=== PATIENT | male | born 1940 | race Caucasian/White ===

== ENCOUNTER → 2018-03-10 13:02 | Outpatient (CLI) | payer MEDICARE, SELFPAY ==
--- NOTE | 2018-03-10 13:45 | MRI_ITS ---
STUDY: MRI BRAIN WITHOUT CONTRAST REASON FOR EXAM: Male, 78 years old. CVA TECHNIQUE: Standardized multiplanar fat and water weighted pulse sequences were obtained. COMPARISON: February 04, 2006 FINDINGS: Moderate atrophy and periventricular white matter ischemic changes without mass effect or restricted diffusion. Tiny old lacunar infarct in left basal ganglia.. Normal thalami. There is no extra-axial fluid accumulation. Normal flow voids within the major intracranial circulation suggesting patency by spin echo criteria. Normal sella turcica, pituitary gland, infundibular stalk, optic chiasm and hypothalamus. Normal tectal plate and pineal gland. Normal midbrain, samreen and medulla. Normal cerebellum. Normal basal cisterns. Normal bilateral temporal bones. Normal bilateral internal auditory canals. No demonstrated orbital abnormality, within the constraints of a routine brain study. Minor mucosal thickening of the right ethmoid air cells.. Normal calvarium and skull base. Normal visualized soft tissue structures. Normal visualized upper cervical spine. MRI/Brain without Contrast IMPRESSION: Moderate atrophy and periventricular white matter ischemic change. No evidence for acute infarct Tiny old left lacunar infarct Electronically Signed: Kory Evans MD at 16:24 EDT , Service support ,
== END ==
PROVIDERS: Family Provider Family Medicine; PCP Family Medicine; Visit Provider Family Medicine
DX: Z86.73 Personal history of transient ischemic attack (TIA), and cerebral infarction without residual deficits (principal)
CPT/HCPCS: 70551

== ENCOUNTER → 2018-07-19 08:37 | Outpatient (CLI) | payer MEDICARE, SELFPAY ==
[2018-07-19 10:39] LABS: Absolute Lymphocyte Count 1.42 X10^3/ul (0.83-4.51); Absolute Neutrophil Count 4.7 X10^3/uL (2.0-7.7); Basophil# 0.04 X10^3/uL; Basophil% 0.6 % (0-1); Eosinophil# 0.24 X10^3/uL; Eosinophils% 3.4 % (0-5); Hematocrit 42.8 % (40-54); Hemoglobin 13.9 g/dl (13.0-16.5); Lymphocyte # 1.42 X10^3/ul (4.0); Lymphocyte % 20.3 % (19-41); Mean Corp Hgb Conc 32.5 g/gl (32-36); Mean Corpuscular Hgb 29.1 pg (27.0-32.0); Mean Corpuscular Volume 89.7 fL (80-94); Mean Platelet Vol. 11.9 fl (6.2-12.0); Monocyte# 0.54 X10^3/uL; Monocyte% 7.7 % (0-10); Neutrophil # 4.74 X10^3/uL (2.7-7.7); Neutrophil % 67.7 % (47-70); Platelet Count 162 K/mm3 (150-450); RBC Distribution Width CV 12.8 % (11.6-14.6); RBC Distribution Width SD 41.9 fl (35.1-43.9); Red Blood Count 4.77 M/mm3 (4.6-6.2)
[2018-07-19 10:40] LABS: POSITIVE COUNT NO; POSITIVE DIFFERENTIAL NO; POSITIVE MORPHOLOGY NO
[2018-07-19 10:54] LABS: Hemoglobin A1c 6.3 % (4.2-6.3)
[2018-07-19 10:58] LABS: Vitamin B12 227 pg/mL (211-911)
[2018-07-19 11:03] LABS: AST(SGOT) 27 U/L (15-37); Alanine Aminotransfer ALT/SGPT 42 U/L (16-61); Albumin, Serum 3.6 g/dL (3.2-5.0); Alkaline Phosphatase 88 U/L (45-117); Anion Gap 9 (5-15); BUN 23 mg/dL (7-18); BUN/Creat Ratio 15.4 RATIO (10-20); Chloride 104 mmol/L (98-107); Cholesterol 208 mg/dL (200); Creatinine, Serum 1.49 mg/dL (0.70-1.30); EST Glomerular Filtration Rate 48 mL/min (>60); Est Glom Filt Rate - Afr Amer 58 mL/min (>60); Globulin 3.7 g/dL (2.2-4.2); Glucose 117 mg/dL (74-106); High Density Lipoprotein 33 mg/dL; Potassium 4.8 mmol/L (3.5-5.1); Protein, Total 7.3 g/dL (6.4-8.2); Sodium Level 141 mmol/L (136-145); Thyroid Stim Hormone (TSH) 0.92 uIU/mL (0.358-3.74); Triglycerides 139 mg/dL; Very Low Density Lipoprotein 28 mg/dL (5-40)
[2018-07-19 11:08] LABS: Microalbumin,Random Urine 20.3 mg/L (NO RANGE EST.)
== END ==
PROVIDERS: Family Provider Family Medicine; PCP Family Medicine; Referring Provider Family Medicine; Visit Provider Family Medicine
DX: E11.9 Type 2 diabetes mellitus without complications (principal); E78.5 Hyperlipidemia, unspecified; R53.83 Other fatigue
CPT/HCPCS: 36415; 80053; 80061; 82043; 82570; 82607; 83036; 84443; 85025

== ENCOUNTER → 2018-07-20 10:45 | Outpatient (CLI) | payer MEDICARE, SELFPAY ==
[2018-07-20 12:34] LABS: Anion Gap 9 (5-15); BUN 22 mg/dL (7-18); Calcium,Total 9.1 mg/dL (8.5-10.1); Chloride 104 mmol/L (98-107); Creatinine, Serum 1.57 mg/dL (0.70-1.30); EST Glomerular Filtration Rate 45 mL/min (>60); Est Glom Filt Rate - Afr Amer 55 mL/min (>60); Glucose 72 mg/dL (74-106); Potassium 4.2 mmol/L (3.5-5.1); Sodium Level 140 mmol/L (136-145)
== END ==
PROVIDERS: Family Provider Family Medicine; PCP Family Medicine; Referring Provider Family Medicine; Visit Provider Family Medicine
DX: R94.4 Abnormal results of kidney function studies (principal)
CPT/HCPCS: 36415; 80048

== ENCOUNTER → 2018-07-22 10:25 | Outpatient (CLI) | payer MEDICARE, SELFPAY | PROVIDERS: Family Provider Family Medicine; PCP Family Medicine; Referring Provider Internal Medicine Cardiovascular Disease; Visit Provider Internal Medicine Cardiovascular Disease | DX: I44.7 Left bundle-branch block, unspecified (principal) | CPT/HCPCS: 93306 ==

== ENCOUNTER 2018-07-23 06:52 | Day surgery (SDC) | payer MEDICARE, SELFPAY ==
--- NOTE | 2018-07-21 08:30 | RAD_ITS ---
STUDY: X-RAY CHEST REASON FOR EXAM: Male, 78 years old. Chest pain TECHNIQUE: Frontal and lateral views COMPARISON: June 24, 2017 FINDINGS: Stable sternotomy wires The lungs are clear and expanded. There is no demonstrated pleural abnormality. Normal size heart. Normal mediastinum and heaven. Normal visualized pulmonary arteries. Normal visualized aortic arch and descending thoracic aorta. Degenerative changes of the thoracic spine. Normal visualized ribs, clavicles, and shoulders. There is no demonstrated abnormality of the visualized soft tissue structures of the upper abdomen. RAD/Chest PA and Lateral IMPRESSION: Normal x-ray examination of the chest. Electronically Signed: Zhang George DO at 22:35 EDT Tel [phone], Service support ,
[2018-07-22 10:14] VITALS: BMI 25.4
[2018-07-22 11:13] LABS: BNP,B-Type NATRIURETIC PEPTIDE 604.8 pg/mL (0-100)
--- NOTE | 2018-07-23 17:41 | CL.D_ITS ---
Patient Name: MARTHA GUNTER Study Date: 07/23/2018 Performing: Jason Lemus MD Ht: 68.89 inches 175 cm : 1940 Wt: 171.96 lbs 78 kg Age: 78 Gender: male BSA: 1.94 PROCEDURE(S) PERFORMED [id number]/CABG [id number]-[id number] ROOT ANGIO WITH HEART CATH CLINICAL PROFILE AND INDICATIONS Indications: Stable Known CAD Heart Failure: None Stress/Imaging Stress/Image Study Performed: No CAD Presentations: Symptom unlikely to be ischemic. CONCLUSIONS Patent saphenous vein graft to the right coronary artery, saphenous vein graft to the diagonal vessel , saphenous vein graft to obtuse marginal branch. The left internal mammary artery to the left anter ior descending artery is also patent. 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 RECOMMENDATIONS Medical therapy DESCRIPTION OF PROCEDURE The patient arrived to the procedure lab. The risks and benefits of the procedure as well as a full d escription of our services here and current unavailability of surgical backup were fully explained to the patient and/or their significant other prior to the catheterization. The Timeout was completed, verifying the correct patient and procedure. The patient's procedural site was prepped and draped in the usual fashion. Local anesthetic was given subcutaneously to right groin region with Lidocaine 2%. Using a modified Seldinger technique, arterial access was obtained via the right femoral artery, a 5 Fr sheath was inserted. Left Coronary Artery selective angiography was performed in multiple views u sing a 5 Fr. JL4 catheter. Right Coronary Artery selective angiography was then performed in multiple views using a 5 Fr. 3DRC (Greg) catheter. Saphenous Vein graft to the RPDA selective angiography was performed in multiple views using a 5 Fr. 3DRC (Greg) catheter. Saphenous Vein graft to the DIAG 1 selective angiography was performed in multiple views using a 5 Fr. 3DRC (Greg) catheter. Left internal mammary artery graft to the LAD selective angiography was performed in multiple views u sing a 5 Fr. IM catheter. Saphenous Vein graft to the OM 2 selective angiography was performed in mul tiple views using a 5 Fr. JR 4 catheter. Ascending (root) aorta selective angiography was then perfor med in single view using a pigtail catheter.. Ascending (root) aorta selective angiography was then p erformed in single view using a pigtail catheter.. Saphenous Vein graft to the OM 2 and diag branch, selective angiography was performed in multiple views using a 5 Fr. AR MOD catheter.The arterial lion th was pulled and a Mynx closure device was deployed for hemostasis CORONARY ANGIOGRAPHY DOMINANCE: Right Dominant LEFT MAIN: Mild calcification LEFT ANTERIOR DECENDING ARTERY: PROX LAD: is occluded CIRCUMFLEX ARTERY: Mild luminal irregularities less than 30% RIGHT CORONARY ARTERY: Mild luminal irregularities less than 30% MID RCA: Moderate luminal irregularities up to 50% GRAFTS: Saphenous Vein graft to the RPDA is patent COLES graft to the Mid LAD is patent Saphenous Vein graft to the 2nd OM is patent Saphenous Vein graft to the 1st Diagonal is patent AORTIC ROOT: Angiographically normal COMPLICATIONS No Complications PROCEDURE MEDICATIONS Versed 1 mg IV Oxygen: 2 L/min via nasal cannula IV Bolus: .9 NaCl 550 ml total 07/23/2018 09:26:11 SUMMARY OF HEMODYNAMIC DATA Time AIR REST ECG 07:18:10 AO 108/56 (76) SA 08:51:23 AO 89/51 (67) 09:06:14 AO 100/52 (72) 09:12:21 Signed By Jason Lemus MD On 07/23/2018 09:39:39 Jason Lemus MD
== END 2018-07-23 12:20 | disposition home or self-care (01) ==
LOC: CLSP 06:52
PROVIDERS: Family Provider Family Medicine; PCP Family Medicine; Referring Provider Internal Medicine Cardiovascular Disease; Visit Provider Internal Medicine Cardiovascular Disease
DX: I25.119 Atherosclerotic heart disease of native coronary artery with unspecified angina pectoris (principal); Z95.1 Presence of aortocoronary bypass graft; I25.2 Old myocardial infarction; E78.5 Hyperlipidemia, unspecified; Z86.73 Personal history of transient ischemic attack (TIA), and cerebral infarction without residual deficits; R06.02 Shortness of breath; Z79.899 Other long term (current) drug therapy; Z79.82 Long term (current) use of aspirin; Z79.84 Long term (current) use of oral hypoglycemic drugs; E11.22 Type 2 diabetes mellitus with diabetic chronic kidney disease; I13.0 Hypertensive heart and chronic kidney disease with heart failure and stage 1 through stage 4 chronic kidney disease, or unspecified chronic kidney disease; N18.9 Chronic kidney disease, unspecified; I50.23 Acute on chronic systolic (congestive) heart failure; I25.5 Ischemic cardiomyopathy; I48.0 Paroxysmal atrial fibrillation; I44.7 Left bundle-branch block, unspecified; R93.1 Abnormal findings on diagnostic imaging of heart and coronary circulation
CPT/HCPCS: 36415; 71046; 83880; 93455; 93567; 99152; 99153; C1760; J7040; C1769; Q9967

== ENCOUNTER → 2018-08-27 11:06 | Outpatient (CLI) | payer MEDICARE, SELFPAY ==
[2018-08-27 12:30] LABS: Erythrocyte Sedimentation Rate 1 mm/hr (0-20)
[2018-08-27 13:00] LABS: Rheumatoid Factor < 10.0 IU/mL (<15); Thyroid Stim Hormone (TSH) 0.65 uIU/mL (0.358-3.74)
[2018-08-27 13:27] LABS: HIV - WCH Non-Reactive (Nonreactive); Vitamin B12 336 pg/mL (211-911)
[2018-08-30 12:30] LABS: RNP Ab <0.2 AI (0.0-0.9); Smith Ab <0.2 AI (0.0-0.9)
[2018-08-30 13:29] LABS: ANTINUCLEAR ANTIBODIES DIRECT Negative (Negative)
[2018-08-30 14:07] LABS: PROEL- A/G Ratio 1.4 (0.7-1.7); PROEL- Albumin 3.9 g/dL (2.9-4.4); PROEL- Alpha-1 Globulin 0.2 g/dL (0.0-0.4); PROEL- Alpha-2 Globulin 0.8 g/dL (0.4-1.0); PROEL- Gamma Globulin 0.7 g/dL (0.4-1.8); PROEL- Globulin, Total 2.8 g/dL (2.2-3.9); PROEL- TOTAL PROTEIN 6.7 g/dL (6.0-8.5)
[2018-09-02 08:17] LABS: Hep C Antibodies <0.1 s/co ratio (0.0-0.9)
== END ==
PROVIDERS: Family Provider Family Medicine; PCP Family Medicine; Referring Provider Psychiatry & Neurology Neurology; Visit Provider Psychiatry & Neurology Neurology
DX: G62.9 Polyneuropathy, unspecified (principal); R20.1 Hypoesthesia of skin; R53.83 Other fatigue
CPT/HCPCS: 36415; 82607; 82746; 84165; 84443; 85652; 86038; 86235; 86431; 86703; 86803

== ENCOUNTER → 2018-09-07 07:51 | Outpatient (CLI) | payer MEDICARE, SELFPAY ==
--- NOTE | 2018-09-07 11:13 | PFT_ITS ---
INTRODUCTION: The patient is an 78-year-old female that presents for pulmonary function studies secondary to a diagnosis of dyspnea on exertion. Respiratory therapy reports good patient effort. Bronchodilators were used during testing. INTERPRETATION: Forced expiration spirometry demonstrates the presence of a mild large airways obstructive ventilatory defect. There was no significant response to aerosolized bronchodilators. Spirograms are of good quality and do not plateau indicating slow emptying of the lungs. Body plethysmography was performed and reveals an elevated TLC and RV, indicative of underlying hyperinflation and air- trapping. Diffusing capacity by single breath CO is within normal limits. IMPRESSION: These pulmonary function studies demonstrate the presence of an irreversible mild large airways obstructive ventilatory defect with associated hyperinflation, air trapping and preserved diffusing capacity.
== END ==
PROVIDERS: Family Provider Family Medicine; PCP Family Medicine; Referring Provider Internal Medicine Cardiovascular Disease; Visit Provider Internal Medicine Cardiovascular Disease
DX: R06.09 Other forms of dyspnea (principal); I25.5 Ischemic cardiomyopathy; I48.0 Paroxysmal atrial fibrillation; I10 Essential (primary) hypertension; Z95.1 Presence of aortocoronary bypass graft
CPT/HCPCS: 94060; 94726; 94729

== ENCOUNTER → 2018-10-04 08:31 | Outpatient (CLI) | payer MEDICARE, SELFPAY ==
[2018-09-27 08:51] VITALS: BMI 25.5
[2018-10-04 10:34] LABS: ALB/GLOB Ratio 1.2 RATIO (0.9-2.4); AST(SGOT) 19 U/L (15-37); Alanine Aminotransfer ALT/SGPT 25 U/L (16-61); Albumin, Serum 3.7 g/dL (3.2-5.0); Alkaline Phosphatase 86 U/L (45-117); Anion Gap 9 (5-15); BUN 17 mg/dL (7-18); Chloride 107 mmol/L (98-107); Cholesterol 143 mg/dL (200); Creatinine, Serum 1.55 mg/dL (0.70-1.30); EST Glomerular Filtration Rate 46 mL/min (>60); Est Glom Filt Rate - Afr Amer 56 mL/min (>60); Globulin 3.1 g/dL (2.2-4.2); Glucose 102 mg/dL (74-106); High Density Lipoprotein 37 mg/dL; Potassium 4.5 mmol/L (3.5-5.1); Protein, Total 6.8 g/dL (6.4-8.2); Sodium Level 144 mmol/L (136-145); Triglycerides 171 mg/dL; Very Low Density Lipoprotein 34 mg/dL (5-40)
[2018-10-04 10:38] LABS: Hemoglobin A1c 7.2 % (4.2-6.3)
--- OUTSIDE RECORDS SUMMARY | 2019-01-05 19:47 | XMS RPT_ITS ---
:1940 Author Organization OHIP Support Name Relationship Address Phone JANIRICCO Unavailable [address] [place] [address] R Unavailable Unavailable Unavailable JANI, RICCO Unavailable [address] [place] [address] R Unavailable Unavailable Unavailable JANI, RICCO Unavailable [address] [place] [address] R Unavailable Unavailable Unavailable JANI, RICCO Unavailable [address] [place] [address] R Unavailable Unavailable Unavailable JANI, RICCO Unavailable [address] [place] [address] R Unavailable Unavailable Unavailable JANI, RICCO Unavailable [address] [place] [address] R Unavailable Unavailable Unavailable JANI, RICCO Unavailable [address] [place] [address] R Unavailable Unavailable Unavailable JANI, RICCO Unavailable [address] [place] [address] R Unavailable Unavailable Unavailable JANI, RICCO Unavailable [address] [place] [address] R Unavailable Unavailable Unavailable JANI, RICCO Unavailable [address] [place] [address] R Unavailable Unavailable Unavailable JANI, RICCO Unavailable [address] [place] [address] R Unavailable Unavailable Unavailable JANI, RICCO Unavailable [address] [place] [address] R Unavailable Unavailable Unavailable JANI, RICCO Unavailable [address] [place] [address] R Unavailable Unavailable Unavailable RICCO GUNTER Unavailable [address] [phone] [place] [address] R Unavailable Unavailable Unavailable R Unavailable Unavailable Unavailable RICCO GUNTER Unavailable [address] [phone] [place] [address] R Unavailable Unavailable Unavailable R Unavailable Unavailable Unavailable RICCO GUNTER Unavailable [address] + [place] [address] ZEHRA GUNTER Unavailable [address] + [place] [address] R Unavailable Unavailable Unavailable NONE, NONE Unavailable Unavailable + NONE, NONE Unavailable Unavailable + Care Team Providers Name Role Phone YUNG STAPLES MD Attending Unavailable YUNG STAPLES MD Primary Care Unavailable Schinner, Abdoulaye Mahesh Attending Unavailable Schinner, Abdoulaye E Referring Unavailable Riosner, Abdoulaye E Primary Care Unavailable Abdoulaye Tobin Attending Unavailable Yung Staples Referring Unavailable Jhoan, Yung Primary Care Unavailable Erika Soriano Attending Unavailable Yung Staples Attending Unavailable Jhoan, Yung Primary Care Unavailable Yung Staples Referring Unavailable Schinner Abdoulaye E Attending Unavailable Schinner, Abdoulaye E Referring Unavailable Schinner, Abdoulaye E Primary Care Unavailable Schinner, Abdoulaye E Attending Unavailable Schinner, Abdoulaye E Referring Unavailable Schinner, Abdoulaye E Primary Care Unavailable Allan, [place] Attending Unavailable Schinner, Abdoulaye E Referring Unavailable Allan, Jason Attending Unavailable Allan, [place] Referring Unavailable Schinner, Abdoulaye E Primary Care Unavailable Allan, Jason Attending Unavailable Allan, [place] Referring Unavailable Schinner, Abdoulaye E Primary Care Unavailable Allan, Jason Attending Unavailable Allan, Jason Referring Unavailable Allan, Jason Attending Unavailable Allan, [place] Referring Unavailable Crista, Abdoulaye H Attending Unavailable Schinner, Abdoulaye E Referring Unavailable Joaquin Perez Attending Unavailable Joaquin Perez Referring Unavailable Schinner, Abdoulaye E Primary Care Unavailable Allan, [place] Attending Unavailable Allan, [place] Referring Unavailable Vivinner, Abdoulaye E Primary Care Unavailable Abdoulaye Tobin H Consulting Unavailable Neil Dumont D.O. Attending Unavailable Abdoulaye Tobin Referring Unavailable Abdoulaye Tobin Attending Unavailable Yung Staples Referring Unavailable PROBLEMS PROBLEMS DATE TYPE CONDITION / CODE ATTENDING STATUS SOURCE 08/27/2018 Unknown G62.9 - Joaquin Perez Active [facility] Polyneuropathy, Community unspecified / Hospital G62.9(ICD-10) Repository 08/27/2018 Unknown R20.1 - Hypoesthesia Joaquin Perez Active [facility] of skin / Community R20.1(ICD-10) Hospital Repository 08/27/2018 Unknown R53.83 - Other Joaquin Perez Active [facility] fatigue / Community R53.83(ICD-10) Hospital Repository 08/23/2018 Unknown R06.09 - Other forms Abdoulaye Tobin Active [facility] of dyspnea / Community R06.09(ICD-10) Hospital Repository 08/23/2018 Unknown I48.0 - Paroxysmal Abdoulaye Tobin Active [facility] atrial fibrillation Community / I48.0(ICD-10) Hospital Repository 08/23/2018 Unknown I25.5 - Ischemic Abdoulaye Tobin Active [facility] cardiomyopathy / Community I25.5(ICD-10) Hospital Repository 08/23/2018 Unknown I10 - Essential Abdoulaye Tobin Active [facility] (primary) [facility] hypertension / Hospital I10(ICD-10) Repository 08/23/2018 Unknown Z95.1 - Presence of Abdoulaye Tobin Active [place] aortocoronary bypass [facility] graft / Hospital Z95.1(ICD-10) Repository 07/23/2018 Unknown R06.00 - Dyspnea, Allan, [place] Active [place] unspecified / Community R06.00(ICD-10) Hospital Repository 08/13/2018 Unknown R07.9 - Chest pain, Allan, Jason Active [place] unspecified / Community R07.9(ICD-10) Hospital Repository 07/21/2018 Unknown I25.119 - Allan, Jason Active [place] Atherosclerotic Community heart disease of Hospital [place] coronary Repository artery with unspecified angina pectoris / I25.119(ICD-10) 07/21/2018 Unknown E78.5 - Allan, [place] Active [place] Hyperlipidemia, Community unspecified / Hospital E78.5(ICD-10) Repository 07/21/2018 Unknown I44.7 - Left Allan, [place] Active [place] bundle-branch block, Community unspecified / Hospital I44.7(ICD-10) Repository 03/10/2018 Unknown Z86.73 - Personal Yung Staples Active [place] history of transient Community ischemic attack Hospital (TIA), and cerebral Repository infarction without residual deficits / Z86.73(ICD-10) 03/09/2018 Unknown G47.10 - Abdoulaye Tobin Active [place] Hypersomnia, Community unspecified / Hospital G47.10(ICD-10) Repository 02/24/2018 Admitting Type 2 diabetes JHOAN MONTOYA, Active [facility] Diagnosis mellitus without [facility] complications / Repository E11.9(ICD-10) 02/24/2018 Admitting Mixed hyperlipidemia JHOAN MONTOYA, [facility] Diagnosis / E78.2(ICD-10) [facility] Repository PROCEDURES PROCEDURES No Procedure Records FoundRESULTS RESULTS PULMONARY FUNCTION Observed: 10/05/2018 Status: F Source: [place] TEST 10:09 AM [facility] REPOSITORY [facility] Pulmonary Services/Neurology [address] [place] [address] MR#: [id number] Acct: [id number] Name: MARTHA GUNTER Sudhakar Rep #: [id number] : 1940 78 From: Neil Dumont DO Referring Dr: Allan MONTOYA,Jason Status: REG CLI Ordering Dr: Date: Location: [facility] Sex: M C ADDENDUM by Mirna CancholaO. on 10/05/18 at 1009 Please note correction to medical record: The patient is an 78-year-old male, not female. My impression of the pulmonary function tests is unchanged. 10/05/18 1009 Date Neil Dumont DO cc: Jason Lemus MD; Abdoulaye Brock MD * Signed INTRODUCTION: The patient is an 78-year-old female that presents for pulmonary function studies secondary to a diagnosis of dyspnea on exertion. Respiratory therapy reports good patient effort. Bronchodilators were used during testing. INTERPRETATION: Forced expiration spirometry demonstrates the presence of a mild large airways obstructive ventilatory defect. There was no significant response to aerosolized bronchodilators. Spirograms are of good quality and do not plateau indicating slow emptying of the lungs. Body plethysmography was performed and reveals an elevated TLC and RV, indicative of underlying hyperinflation and air-trapping. Diffusing capacity by single breath CO is within normal limits. IMPRESSION: These pulmonary function studies demonstrate the presence of an irreversible mild large airways obstructive ventilatory defect with associated hyperinflation, air trapping and preserved diffusing capacity. 09/07/18 1113 <Electronically signed by Neil Dumont DO> Date Neil Dumont DO CC: Jason Lemus MD; Abdoulaye Brock MD Date Dictated: 09/07/18 1111 Date Transcribed: 09/07/181110 [employer] Teacher: CARTER Signed COMPREHENSIVE METABOLIC Collected: 10/04/2018 Status: F Source: [place] SANDIP 8:49 AM [facility] REPOSITORY TYPE CODE TESTS RESULT OUT OF RANGE REFERENCE UNITS LAB L501.0100 74-106 mg/dL Normal GLU 102 Result Comment: Fasting Glucose result from 100 to 125 mg/dL suggests IMPAIRED HOMEOSTASIS per A.D.A. criteria. Please note revised GLUCOSE reference range effective 2017. LAB L501.1000 7-18 mg/dL Normal BUN 17 LAB L501.1100 0.70-1.30 mg/dL High CREAT,SERUM 1.55 Result Comment: The validity of the calculated GFR AND GFRAA in patients over 70 years has not been determined. Clinical correlation is essential. LAB L501.1110 >60 mL/min Low EST GFR 46 Result Comment: Non- GFR Calc LAB L501.1115 >60 mL/min Low EST GFR - AA 56 Result Comment: GFR Calc LAB L501.1300 10-20 RATIO Normal BUN/CRE 11.0 LAB L501.1500 6.4-8.2 g/dL T Normal PROT 6.8 LAB L501.1800 3.2-5.0 g/dL Normal ALB 3.7 LAB L501.1950 2.2-4.2 g/dL Normal GLOB 3.1 LAB L501.2000 0.9-2.4 RATIO Normal A/G 1.2 LAB L501.2200 8.5-10.1 mg/dL CA Normal 9.0 LAB L501.4100 15-37 U/L Normal AST 19 LAB L501.4305 45-117 U/L Normal ALK P 86 LAB L501.4405 16-61 U/L Normal ALT 25 LAB L501.4600 0.20-1.00 mg/dL T Normal BILI 0.70 LAB L501.5300 136-145 mmol/L NA Normal 144 LAB L501.5600 3.5-5.1 mmol/L K Normal 4.5 LAB L501.5900 98-107 mmol/L CL Normal 107 LAB L501.6100 21.0-32.0 mmol/L Normal CO2 28.0 LAB L501.6200 5-15 Normal GAP 9 Performed By: #### L500.4050, L500.4100 #### [facility] [address] [facility] [id number] LIPID PROFILE Collected: 10/04/2018 Status: F Source: [place] 8:49 AM [facility] REPOSITORY TYPE CODE TESTS RESULT OUT OF RANGE REFERENCE UNITS LAB L501.4900 200 mg/dL Normal CHOL 143 Result Comment: <200 mg/dL Desirable 200-240 mg/dL Borderline >240 mg/dL High Risk LAB L501.5000 mg/dL Normal TRIG 171 Result Comment: The drugs N-Acetylcysteine and Metamizole may falsely depress this assay. Serum Triglycerides Reference Interval Normal <150 mg/dL Borderline high 150 - 199 mg/dL High 200 - 499 mg/dL Very High > or = 500 mg/dL LAB L501.6400 mg/dL Low HDL 37 Result Comment: The drugs N-Acetylcysteine and Metamizole may falsely depress this assay. Reference Range HDL <40 mg/dL Low HDL Cholesterol HDL >or= 60 mg/dL High HDL Cholesterol LAB L501.6500 0-130 mg/dL Normal LDL 72 LAB L501.6600 5-40 mg/dL Normal VLDL 34 Performed By: #### L500.4050, L500.4100 #### [facility] [address] [place], [place], [id number] HEMOGLOBIN A1C Collected: 10/04/2018 Status: F Source: [place] 8:49 AM [facility] REPOSITORY TYPE CODE TESTS RESULT OUT OF RANGE REFERENCE UNITS LAB L501.9985 4.2-6.3 % High HGB A1C 7.2 Performed By: #### L501.9985 #### [facility] [address] [place], [place], [address] HEPATITIS C ANTIBODIES Collected: 08/27/2018 Status: F Source: [place] 11:15 AM [facility] REPOSITORY Order Comment: Testing added to previous specimen per 09/01/18 0929 [place] TYPE CODE TESTS RESULT OUT OF RANGE REFERENCE UNITS LAB L3100.0650 0.0-0.9 s/co ratio Normal HEP C AB <0.1 Result Comment: Negative: < 0.8 Indeterminate: 0.8 - 0.9 Positive: > 0.9 The CDC recommends that a positive HCV antibody result be followed up with a HCV Nucleic Acid Amplification test (742581). Performed at: [facility] [id number] Electric Screw Driver Operator: Deondre Suresh PhD, Phone: [phone] Performed By: #### L3100.0625 #### [facility] (refer to report for specific site) refer to report for address and phone number ERYTHROCYTE SED RATE Collected: 08/27/2018 Status: F Source: [place] 11:13 AM [facility] REPOSITORY TYPE CODE TESTS RESULT OUT OF RANGE REFERENCE UNITS LAB L102.0000 0-20 mm/hr Normal SED RATE 1 Performed By: #### L101.9900 #### [facility] [address] [place], [place], [address] THYROID STIM HORMONE Collected: 08/27/2018 Status: F Source: [place] (TSH) 11:13 AM [facility] REPOSITORY Order Comment: Is Patient Taking Vitamins or Folic Acid Supplements? N TYPE CODE TESTS RESULT OUT OF RANGE REFERENCE UNITS LAB L501.9520 0.358-3.74 uIU/mL Normal TSH 0.65 Performed By: #### L501.9520, L505.7010, L506.0250 #### [facility] [address] [place], [address] RHEUMATOID FACTOR Collected: 08/27/2018 Status: F Source: [place] 11:13 AM [facility] REPOSITORY Order Comment: Is Patient Taking Vitamins or Folic Acid Supplements? N TYPE CODE TESTS RESULT OUT OF RANGE REFERENCE UNITS LAB L505.7010 <15 IU/mL Normal RHEUMATOID FAC < 10.0 Performed By: #### L501.9520, L505.7010, L506.0250 #### [facility] [address] [place], [address] FOLATES, (FOLIC ACID) Collected: 08/27/2018 Status: F Source: [place] 11:13 AM [facility] REPOSITORY Order Comment: Is Patient Taking Vitamins or Folic Acid Supplements? N TYPE CODE TESTS RESULT OUT OF RANGE REFERENCE UNITS LAB L506.0250 3.1-55.4 ng/mL Normal FOLATES 19.10 Performed By: #### L501.9520, L505.7010, L506.0250 #### [facility] [address] [place], [address] VITAMIN B12 Collected: 08/27/2018 Status: F Source: [place] 11:13 AM [facility] REPOSITORY TYPE CODE TESTS RESULT OUT OF RANGE REFERENCE UNITS LAB L503.0105 211-911 pg/mL Normal Vitamin B12 336 Performed By: #### L503.0105, L3890.6005 #### [facility] [address] [place], [address] HIV - [facility] Collected: 08/27/2018 Status: F Source: [place] 11:13 AM [facility] REPOSITORY TYPE CODE TESTS RESULT OUT OF RANGE REFERENCE UNITS LAB L3890.6005 Nonreactive Normal HIV - [facility] Non-Reactive Performed By: #### L503.0105, L3890.6005 #### [facility] [address] [place], [address] ANTINUCLEAR ANTIBODIES Collected: 08/27/2018 Status: F Source: [place] DIRECT 11:13 AM [facility] REPOSITORY TYPE CODE TESTS RESULT OUT OF RANGE REFERENCE UNITS LAB L3100.5475 Negative Normal Negative KIM-DIRECT Result Comment: Performed at: [address] [id number] Electric Screw Driver Operator: Deondre Suresh PhD, Phone: [phone] Performed By: #### L3100.5475, L3410.1110 #### [facility] (refer to report for specific site) refer to report for address and phone number ANTIEXTRACTABLE NUG AG Collected: 08/27/2018 Status: F Source: [place] 11:13 AM [facility] REPOSITORY TYPE CODE TESTS RESULT OUT OF RANGE REFERENCE UNITS LAB L3410.1200 0.0-0.9 AI Normal FEEDER/FOLDER Ab <0.2 LAB L3410.1300 0.0-0.9 AI Normal CANTU Ab <0.2 Performed By: #### L3100.5475, L3410.1110 #### [facility] (refer to report for specific site) refer to report for address and phone number PROTEIN ELECTROPH, S Collected: 08/27/2018 Status: F Source: [place] 11:13 AM [facility] REPOSITORY TYPE CODE TESTS RESULT OUT OF RANGE REFERENCE UNITS LAB L3100.3500 6.0-8.5 g/dL Normal PROTEIN,TOTAL 6.7 LAB L3100.3600 2.9-4.4 g/dL Normal ALBUMIN 3.9 LAB L3100.3700 0.0-0.4 g/dL Normal ALPHA-1 GLOBUL 0.2 LAB L3100.3800 0.4-1.0 g/dL Normal ALPHA-2 GLOBUL 0.8 LAB L3100.3900 0.7-1.3 g/dL Normal BETA GLOBULIN 1.0 LAB L3100.4000 0.4-1.8 g/dL Normal GAMMA GLOBULIN 0.7 LAB L3100.4110 Normal M-SPIKE Result Comment: Not Observed LAB L3100.4200 2.2-3.9 g/dL GLOBULIN, TOTAL Normal 2.8 LAB L3100.4300 0.7-1.7 A/G RATIO Normal 1.4 LAB L3100.4320 . INTERPRETATION Normal Comment Result Comment: Protein electrophoresis scan will follow via computer, mail, or aircraft maintenance supervisor delivery. LAB L3100.4340 . Normal NOTE: Comment Result Comment: The SPE pattern appears essentially unremarkable. Evidence of monoclonal protein is not apparent. Performed at: [address] [id number] Electric Screw Driver Operator: Deondre Suresh PhD, Phone: [phone] Performed By: #### L3100.3450 #### [facility] (refer to report for specific site) refer to report for address and phone number BNP,B-TYPE NATRIURETIC Collected: 07/23/2018 Status: F Source: [place]PTIDE 8:30 AM [facility] REPOSITORY TYPE CODE TESTS RESULT OUT OF RANGE REFERENCE UNITS LAB L503.6620 0-100 pg/mL High B-TYPE 604.8 SHERRIE PEP Performed By: #### L503.6620 #### [facility] [address] [place], [address] CHEST PA AND LATERAL Observed: 07/21/2018 Status: F Source: [place] 3:02 PM [facility] REPOSITORY [facility] Imaging Services [address] [place] [address] Chest PA and Lateral MR#: [id number] Acct: [id number] Name: MARTHA GUNTER Sudhakar Rep #: [id number] : 1940 M 78 From: Zhang George DO PCP: Abdoulaye Brock MD Status: PRE AKC Study: Chest PA and Lateral Date of Exam: 07/21/18 Exam# [id number] Ordering Dr: Jason Lemus MD STUDY: X-RAY CHEST REASON FOR EXAM: Male, 78 years old. Chest pain TECHNIQUE: Frontal and lateral views COMPARISON: June 24, 2017 FINDINGS: Stable sternotomy wires The lungs are clear and expanded. There is no demonstrated pleural abnormality. Normal size heart. Normal mediastinum and heaven. Normal visualized pulmonary arteries. Normal visualized aortic arch and descending thoracic aorta. Degenerative changes of the thoracic spine. Normal visualized ribs, clavicles, and shoulders. There is no demonstrated abnormality of the visualized soft tissue structures of the upper abdomen. RAD/Chest PA and Lateral IMPRESSION: Normal x-ray examination of the chest. Electronically Signed: Zhang George DO at 22:35 EDT Tel [phone], Service support , CC: Jason Lemus MD; Abdoulaye Brock MD [employer] Teacher: Signed CARDIOLOGY VISIT Observed: 07/21/2018 Status: F Source: [place] REPORT 1:57 PM [facility] REPOSITORY [facility] [address] [place] [address] OFFICE VISIT Date of Service: 07/21/18 MR#: [id number] Acct: [id number] Name: MARTHA GUNTER Rep #: [id number] : 1940 Provider: Jason Lemus MD Age/Sex: 78/M Location: [facility] Status: Signed HPI HPI Chief Complaint: Follow up Details: MARTHA GUNTER, is a 78 M who presents to the office today for a cardiovascular outpatient follow-up. He has a history of coronary artery disease status post previous ST elevated myocardial infarction in October 2016 with bypass surgery with COLES to LAD, SVG to diagonal, SVG to proximal and of SVG to diagonal going to OM 2, and SVG to PDA at that time. He also has a history of hypertension, hyperlipidemia, CVA in 2005, and diabetes mellitus type 2. He tells me that he continues to have chest discomfort associated with some arm discomfort as well. You do remember that he had complained of this before and he had a stress test in May 2017 which was normal as well as an echocardiogram which demonstrated preserved ejection fraction. This current episode started on Thursday associated with shortness of breath. Pt. denies arm, jaw, or neck discomfort. His exercise tolerance is stable via yard work. Pt. denies symptoms of palpitations, near syncope, or syncopal episodes. Pt. denies edema or claudication issues. Pt. denies orthopnea, PND, Intake Vital Signs07/21/18 Height 5 ft 9 in Intake Visit Reasons: per PCP, having chest pains Allergies No Known Allergies Allergy (Verified 07/21/18 12:18) Medications Aspirin E.C. [Ecotrin] 81 mg PO DAILY@0800 03/20/17 [History Confirmed 07/21/18] Glimepiride [Amaryl] 4 mg PO BID 03/20/17 [History Confirmed 07/21/18] Furosemide [Lasix] 40 mg PO DAILY #30 tab 06/24/17 [Rx Confirmed 07/21/18] lisinopril 5 mg tablet 5 mg PO DAILY #90 tab 03/16/18 [Rx Confirmed 07/21/18] rosuvastatin 20 mg tablet 20 mg PO DAILY 07/21/18 [History Confirmed 07/21/18] [facility] Medical History Chronic kidney disease (Chronic) Incomplete left bundle branch block (Chronic) History of non-ST elevation myocardial infarction (NSTEMI) (Chronic) Atherosclerosis of coronary artery of [place] heart with angina pectoris (Acute) Paroxysmal atrial fibrillation (Chronic) Hyperlipidemia (Chronic) Ischemic cardiomyopathy (Chronic) Atherosclerotic heart disease of [place] coronary artery without angina pectoris (Chronic) 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) DM2 (diabetes mellitus, type 2) (Chronic) Essential (primary) hypertension (Chronic) Chest pain (Chronic) Dyspnea on exertion (Chronic) Shortness of breath (Chronic) Acute respiratory failure with hypoxemia (Resolved) Personal history of prostate cancer (Resolved) Surgical History Hx of CABG (Chronic 10/30/16) Hx of prostatectomy (Chronic) Family History Sister Diabetes Sister Colon cancer Diabetes Sister Diabetes Social History Smoking Status: Never smoker alcohol intake: never substance use type: does not use ROS Const Const: Positive for fatigue and weakness; negative for difficulty sleeping, frequent falls, excessive sweating or headache(s) Eyes Eyes: Negative for loss of peripheral vision, transient loss of vision, blurry vision, tunnel vision or double vision ENT ENT: Negative for headache(s), dizziness, Nosebleed/epistaxis or balance problems Cardio Chest Pain: Yes Character: other (Shooting chest pain since Thursday/ Facial and LUE numbness) Onset: at rest Palpitations: No Edema: None Muscle aches with walking: None Resp Respiratory: Positive for SOB with activity (SOB with little activity); negative for SOB at rest, SOB orthopnea\SOB lying down, paroxysmal nocturnal dyspnea or Cough GI GI: Negative nausea, heartburn, black,tarry stools or vomiting : Negative for hematuria Musc Musc: Negative for balance problems, muscle aches/ myalgia, muscle weakness or joint pain Skin Skin: Negative non-healing lesions, unusual bruising or rash Neuro Neuro: Positive for weakness; negative for frequent falls, headache(s), blurry vision, double vision, dizziness, lightheadedness, orthostatic symptoms, near syncope, syncope or lack of coordination Yunior Hematologic/Lymphatic: Negative for easy bruising or easy bleeding Endo Endo: Positive for fatigue; negative for excessive sweating or increased thirst/drinking Psych Psych: Negative for anxiety or depression Allergy Allergy/Immunology: Negative for hives, Negative for rash Cardiology Exam Const Appearance: cooperative, healthy appearing, well developed, well groomed and no acute distress Nutritional Appearance: well nourished and average body habitus Orientation: alert, awake and oriented x3 Head Head: normal to inspection, normocephalic and atraumatic Ears: hearing grossly normal bilaterally and external ears normal Nose: external nose normal, nasal mucous membranes and turbinates normal, nares normal, septum normal, no nasal discharge Face and Sinus: face symmetric Mouth: oral mucosae normal, tongue normal, oropharynx normal and moist mucous membranes Teeth and gingiva: dentition normal Throat: posterior oropharynx normal, tonsils normal and uvula midline Eyes General: appearance normal, both eyes and all related structures Eyelids: eyelids normal Conjunctivae: conjunctivae normal Pupils: PERRL, normal by confrontation and accommodation normal EOM: EOM intact bilaterally Neck Neck: normal visual inspection, trachea midline and no JVD JVD: +5 Carotids: normal carotid upstroke and bounding pulses Chest Chest inspection: normal inspection of the chest, symmetric chest movement and normal respiratory effort Auscultation: Bilateral: Clear to Auscultation Cardio Palpation: normal PMI Rate: regular rate Rhythm: regular rhythm Heart sounds: S1 normal, S2 normal and normal, physiologic split S2; negative rub, gallop or murmur GI GI: normal to inspection, soft, no hepatosplenomegaly and bowel sounds present Neuro General: alert, awake, oriented x3, no focal sensory deficit, gait normal and moves all extremities Skin Skin: no rashes or lesions noted Extremities Pulses: Normal: Right Femoral Pulse, Left Femoral Pulse, Right Dorsalis Pedis Pulse, Left Dorsalis Pedis Pulse, Right Posterior Tibial Pulse, Left Posterior Tibial Pulse, Right Radial Pulse, Left Radial Pulse Lower Extremity Edema: None: Bilateral Musculoskel Musculoskeletal: No joint tenderness Psych Psychological: normal affect Assessment AND Plan 1. Atherosclerosis of coronary artery of [place] heart with angina pectoris I25.119 CABG x 4 COLES to LAD, SVG to diagonal, SVG to proximal end of SVG to diagonal going to OM 2, and SVG to PDA 10/30/16 Plan He presents with recurrent chest discomfort despite having had coronary bypass surgery. He did have a stress test a year ago as well as an echocardiogram before we did not demonstrate any evidence of ischemia he is very concerned about the above. My recommendation at this time would be for us to perform a cardiac catheterization assessing his grafts without left ventriculogram due to his borderline renal function. Depending on the findings further recommendations will be made. The above has been discussed with him and his they understand and agree to proceed. Orders Orders: 2. Paroxysmal atrial fibrillation I48.0 Plan He does have a history of paroxysmal atrial fibrillation but currently is maintaining sinus rhythm. He does have an incomplete left bundle branch block. Orders Orders: 3. Ischemic cardiomyopathy I25.5 Plan He does have a history of mild ischemic cardiomyopathy with an estimated ejection fraction of 53%. He was taken off his beta-kelsey but I would suggest that this be restarted. He would also continue the lisinopril as well as the furosemide. You do remember that his last natruretic peptide a year ago was noted to be over thousand. We will repeat his echocardiogram after the cardiac catheterization Orders Orders: 4. Hyperlipidemia E78.5 Plan He does have a history of hyperlipidemia on medium intensity statin which will be continued. Orders Orders: 5. Essential (primary) hypertension I10 Plan He has a history of essential hypertension but his blood pressure at this time appears to be fairly well controlled. 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.119 Paroxysmal atrial fibrillation I48.0 Ischemic cardiomyopathy I25.5 Hyperlipidemia E78.5 Essential (primary) hypertension I10 07/21/18 1357 <Electronically signed by Jason Lemus MD> Date Jason Lemus MD Cosigner Signature: Date (if applicable) CC: Abdoulaye Brock MD 12 LEAD EKG PERFORMED Observed: 07/21/2018 Status: F [place] [facility] [place] [facility] REPOS[facility] [address] [place] [address] 12 Lead E[place] performed [place] [facility] 07/21/18 133 MR#: [id number] Acct: [id number] Name: MARTHA GUNTER Rep #: [id number] : 1940 78 From: Jason Lemus MD Attending Dr: Jason Lemus MD Status: DEP AMB Ordering Dr: Jason Lemus MD Date: 07/21/18 [place] [facility] [place] Sex: M C Admitted: BMS/12 Lead EKG performed [place] [facility] ECG Report Interpretation Sinus Rhythm -Incomplete left bundle branch block. -Old anterior infarct. - Diffuse nonspecific T-abnormality. ABNORMAL Electronically signed on 09/22/2018 at 16:36 by Jason Lemus [employer] Version [id number] 09/22/18 1641 Date Jason Lemus MD CC: Abdoulaye Brock MD Date Dictated: 07/21/181330 Date Transcribed: 07/21/181330 [employer] Teacher: [place] Signed BASIC METABOLIC Collected: 07/20/2018 Status: F Source: [place] PROFILE (BMP) 10:59 AM [facility] REPOSITORY TYPE CODE TESTS RESULT OUT OF RANGE REFERENCE UNITS LAB L501.0100 74-106 mg/dL Low GLU 72 Result Comment: Please note revised GLUCOSE reference range effective 2017. LAB L501.1000 7-18 mg/dL High BUN 22 LAB L501.1100 0.70-1.30 mg/dL High CREAT,SERUM 1.57 Result Comment: The validity of the calculated GFR AND GFRAA in patients over 70 years has not been determined. Clinical correlation is essential. LAB L501.1110 >60 mL/min Low EST GFR 45 Result Comment: Non- GFR Calc LAB L501.1115 >60 mL/min Low EST GFR - AA 55 Result Comment: GFR Calc LAB L501.1300 10-20 RATIO Normal BUN/CRE 14.0 LAB L501.2200 8.5-10.1 mg/dL CA Normal 9.1 LAB L501.5300 136-145 mmol/L NA Normal 140 LAB L501.5600 3.5-5.1 mmol/L K Normal 4.2 LAB L501.5900 98-107 mmol/L CL Normal 104 LAB L501.6100 21.0-32.0 mmol/L Normal CO2 27.0 LAB L501.6200 5-15 Normal GAP 9 Performed By: #### L500.2500 #### [facility] [place], [address] CBC W/DIFF, AUTOMATED Collected: 07/19/2018 Status: F Source: [place] 8:57 AM [facility] REPOSITORY TYPE CODE TESTS RESULT OUT OF RANGE REFERENCE UNITS LAB L100.1000 4.4-11.0 K/mm3 Normal WBC 7.0 LAB L100.1200 4.6-6.2 M/mm3 Normal RBC 4.77 LAB L100.1300 13.0-16.5 g/dl Normal HGB 13.9 LAB L100.1400 40-54 % Normal HCT 42.8 LAB L100.1500 80-94 fL Normal MCV 89.7 LAB L100.1600 27.0-32.0 pg Normal MCH 29.1 LAB L100.1700 32-36 g/gl Normal MCHC 32.5 LAB L100.1810 11.6-14.6 % Normal RDW CV 12.8 LAB L100.1820 35.1-43.9 fl Normal RDW SD 41.9 LAB L100.1900 150-450 K/mm3 Normal PLT 162 LAB L100.2000 6.2-12.0 fl Normal MPV 11.9 LAB L100.2100 47-70 % Normal NEUT% 67.7 LAB L100.2200 19-41 % Normal LY% 20.3 LAB L100.2300 0-10 % Normal MONO% 7.7 LAB L100.2400 0-5 % Normal EO% 3.4 LAB L100.2500 0-1 % Normal BASO% 0.6 LAB L100.2550 0.0-0.9 % Normal IM GRAN % 0.300 Result Comment: IG% - Immature Granulocytes (promyelocytes, myelocytes and metamyelocytes) > 1% indicates that a LEFT SHIFT is Present. LAB L100.2620 2.0-7.7 X10 3/uL Normal Absolute Neut 4.7 LAB L100.2720 0.83-4.51 X10 3/ul Normal Absolute Lymph 1.42 Performed By: #### L100.0100 #### [facility] [address] [facility] [place], [address] HEMOGLOBIN A1C Collected: 07/19/2018 Status: F Source: [place] 8:57 AM [facility] REPOSITORY TYPE CODE TESTS RESULT OUT OF RANGE REFERENCE UNITS LAB L501.9985 4.2-6.3 % Normal HGB A1C 6.3 Performed By: #### L501.9985 #### [facility] [address] [place], [address] VITAMIN B12 Collected: 07/19/2018 Status: F Source: [place] 8:57 AM [facility] REPOSITORY TYPE CODE TESTS RESULT OUT OF RANGE REFERENCE UNITS LAB L503.0105 211-911 pg/mL Normal Vitamin B12 227 Performed By: #### L503.0105 #### [facility] [address] [place], [address] COMPREHENSIVE METABOLIC Collected: 07/19/2018 Status: F Source: [facility] 8:57 AM [facility] REPOSITORY TYPE CODE TESTS RESULT OUT OF RANGE REFERENCE UNITS LAB L501.0100 74-106 mg/dL High GLU 117 Result Comment: Fasting Glucose result from 100 to 125 mg/dL suggests IMPAIRED HOMEOSTASIS per A.D.A. criteria. Please note revised GLUCOSE reference range effective 2017. LAB L501.1000 7-18 mg/dL High BUN 23 LAB L501.1100 0.70-1.30 mg/dL High CREAT,SERUM 1.49 Result Comment: The validity of the calculated GFR AND GFRAA in patients over 70 years has not been determined. Clinical correlation is essential. LAB L501.1110 >60 mL/min Low EST GFR 48 Result Comment: Non- GFR Calc LAB L501.1115 >60 mL/min Low EST GFR - AA 58 Result Comment: GFR Calc LAB L501.1300 10-20 RATIO Normal BUN/CRE 15.4 LAB L501.1500 6.4-8.2 g/dL T Normal PROT 7.3 LAB L501.1800 3.2-5.0 g/dL Normal ALB 3.6 LAB L501.1950 2.2-4.2 g/dL Normal GLOB 3.7 LAB L501.2000 0.9-2.4 RATIO Normal A/G 1.0 LAB L501.2200 8.5-10.1 mg/dL CA Normal 9.0 LAB L501.4100 15-37 U/L Normal AST 27 LAB L501.4305 45-117 U/L Normal ALK P 88 LAB L501.4405 16-61 U/L Normal ALT 42 LAB L501.4600 0.20-1.00 mg/dL T Normal BILI 0.70 LAB L501.5300 136-145 mmol/L NA Normal 141 LAB L501.5600 3.5-5.1 mmol/L K Normal 4.8 LAB L501.5900 98-107 mmol/L CL Normal 104 LAB L501.6100 21.0-32.0 mmol/L Normal CO2 28.0 LAB L501.6200 5-15 Normal GAP 9 Performed By: #### L500.4050, L500.4100, L501.9520 #### [facility] [address] [place], [place], [address] LIPID PROFILE Collected: 07/19/2018 Status: F Source: [place] 8:57 AM [facility] REPOSITORY TYPE CODE TESTS RESULT OUT OF RANGE REFERENCE UNITS LAB L501.4900 200 mg/dL High CHOL 208 Result Comment: <200 mg/dL Desirable 200-240 mg/dL Borderline >240 mg/dL High Risk LAB L501.5000 mg/dL Normal TRIG 139 Result Comment: The drugs N-Acetylcysteine and Metamizole may falsely depress this assay. Serum Triglycerides Reference Interval Normal <150 mg/dL Borderline high 150 - 199 mg/dL High 200 - 499 mg/dL Very High > or = 500 mg/dL LAB L501.6400 mg/dL Low HDL 33 Result Comment: The drugs N-Acetylcysteine and Metamizole may falsely depress this assay. Reference Range HDL <40 mg/dL Low HDL Cholesterol HDL >or= 60 mg/dL High HDL Cholesterol LAB L501.6500 0-130 mg/dL High LDL 147 LAB L501.6600 5-40 mg/dL Normal VLDL 28 Performed By: #### L500.4050, L500.4100, L501.9520 #### [facility] [address] [place], [place], [id number] THYROID STIM HORMONE Collected: 07/19/2018 Status: F Source: [place] (TSH) 8:57 AM [facility] REPOSITORY TYPE CODE TESTS RESULT OUT OF RANGE REFERENCE UNITS LAB L501.9520 0.358-3.74 uIU/mL Normal TSH 0.92 Performed By: #### L500.4050, L500.4100, L501.9520 #### [facility] [address] [place], [address] MICROALB:CREAT Collected: 07/19/2018 Status: F Source: [place] RATIO,RANDOM UR 8:57 AM [facility] REPOSITORY TYPE CODE TESTS RESULT OUT OF RANGE REFERENCE UNITS LAB L501.1200 NO RANGE EST. mg/dL Normal UR CREAT 156.00 LAB L502.0500 NO RANGE EST. mg/L Normal 20.3 MICROALBUMIN ,UR LAB L502.0600 <30 mg/g CRE mg/g CRE Normal 13.0 MALB:CREAT Performed By: #### L502.0250 #### [facility] [address] [place], [address] BRAIN WITHOUT Observed: 03/10/2018 Status: F Source: [place] CONTRAST 1:06 PM [facility] REPOSITORY [facility] Imaging Services [address] [place] [address] Brain without Contrast MR#: [id number] Acct: [id number] Name: MARTHA GUNTER Rep #: [id number] : 1940 M 78 From: Kory Evans MD PCP: Yung Staples MD Status: REG CLI Study: Brain without Contrast Date of Exam: 03/10/18 Exam# [id number] Ordering Dr: Yung Staples MD STUDY: MRI BRAIN WITHOUT CONTRAST REASON FOR EXAM: Male, 78 years old. CVA TECHNIQUE: Standardized multiplanar fat and water weighted pulse sequences were obtained. COMPARISON: February 04, 2006 FINDINGS: Moderate atrophy and periventricular white matter ischemic changes without mass effect or restricted diffusion. Tiny old lacunar infarct in left basal ganglia.. Normal thalami. There is no extra-axial fluid accumulation. Normal flow voids within the major intracranial circulation suggesting patency by spin echo criteria. Normal sella turcica, pituitary gland, infundibular stalk, optic chiasm and hypothalamus. Normal tectal plate and pineal gland. Normal midbrain, samreen and medulla. Normal cerebellum. Normal basal cisterns. Normal bilateral temporal bones. Normal bilateral internal auditory canals. No demonstrated orbital abnormality, within the constraints of a routine brain study. Minor mucosal thickening of the right ethmoid air cells.. Normal calvarium and skull base. Normal visualized soft tissue structures. Normal visualized upper cervical spine. MRI/Brain without Contrast IMPRESSION: Moderate atrophy and periventricular white matter ischemic change. No evidence for acute infarct Tiny old left lacunar infarct Electronically Signed: Kory Evans MD at 16:24 EDT , Service support , CC: Yung Staples MD [employer] Teacher: Signed CARDIOLOGY VISIT Observed: 03/10/2018 Status: F Source: [place] REPORT 10:55 AM [facility] REPOSITORY [facility] [address] [place] [address] OFFICE VISIT Date of Service: 03/09/18 MR#: [id number] Acct: [id number] Name: MARTHA GUNTER Rep #: [id number] : 1940 Provider: CEM Tobin Age/Sex: 78/M [place] [facility] Status: Signed HPI HPI Details: MARTHA GUNTER, is a 78 M who presents to the office today for a cardiovascular outpatient follow-up. He has a history of coronary artery disease status post previous ST elevated myocardial infarction in October 2016 with bypass surgery with COLES to LAD, SVG to diagonal, SVG to proximal and of SVG to diagonal going to OM 2, and SVG to PDA at that time. He also has a history of hypertension, hyperlipidemia, CVA in 2005, and diabetes mellitus type 2. Pt. denies arm, jaw, or neck discomfort. His exercise tolerance is stable via yard work. Pt. denies symptoms of palpitations, near syncope, or syncopal episodes. Pt. denies edema or claudication issues. Pt. denies orthopnea, PND, fever, chills, blood in urine, blood in stool, or myalgia. Pt. states SOB with exertion and fatigue since his bypass surgery. He continues to get shooting pain in his chest at random times that lasts for seconds. This occurs with both rest and activity. There are no associated symptoms. He states lightheadedness and dizziness with quick position changes. He states an episode while in [place] where he was crawling on the floor with some confusion. This resolved once helped into a recliner. He states an episode while reading that he couldn't read. He did not seek medication attention. This lasted for 20 minutes and resolved on its own. He states snoring, day time tiredness requiring naps, fatigue, headaches, falling asleep watching tv, and difficulty staying asleep. He is having an MRI of his head tomorrow. 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 [Ecotrin] 81 mg PO DAILY@0800 03/20/17 [History Confirmed 03/09/18] Atorvastatin Calcium [Lipitor] 40 mg PO QHS 03/20/17 [History Confirmed 03/09/18] Glimepiride [Amaryl] 4 mg PO BID 03/20/17 [History Confirmed 03/09/18] Lisinopril [Zestril] 5 mg PO DAILY 03/20/17 [History Confirmed 03/09/18] Metoprolol Tartrate 25 mg PO BID 06/05/17 [History Confirmed 03/09/18] Furosemide [Lasix] 40 mg PO DAILY #30 tab 06/24/17 [Rx Confirmed 03/09/18] Ejection fraction %: 50 to 54 (53% per echo 06/05/[address] 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) Atrial fibrillation (Chronic) DM2 (diabetes mellitus, type 2) (Chronic) Essential (primary) hypertension (Chronic) CAD (coronary artery disease) (Chronic) Acute respiratory failure with hypoxemia (Chronic) CHF (congestive heart failure) (Chronic) Chest pain (Chronic) Dyspnea on exertion (Chronic) Shortness of breath (Chronic) Personal history of prostate cancer (Resolved) Surgical History Hx of CABG (Chronic) Hx of prostatectomy (Chronic) Family History Sister Diabetes Sister Colon cancer Diabetes Sister Diabetes Social History Smoking Status: Never smoker alcohol intake: never substance use type: does not use ROS Const Const: Positive for fatigue, headache(s), daytime sleepiness and difficulty sleeping; negative for weakness, body ache, fever(s) or chills Eyes Eyes: Positive for change in vision ENT ENT: Positive for dizziness and headache(s) Cardio Chest Pain: No Palpitations: No Edema: None Muscle aches with walking: None Resp Respiratory: Positive for SOB with activity and snoring; negative for SOB at rest, SOB orthopnea\SOB lying down or paroxysmal nocturnal dyspnea GI GI: Negative nausea, black,tarry stools, bright, red blood in stools or vomiting blood/hematemesis : Negative for hematuria or frequent nighttime urination/ nocturia Musc Musc: Negative for muscle aches/ myalgia Skin Skin: Negative non-healing lesions or rash Neuro Neuro: Positive for lightheadedness, confusion, other (difficulty reading), dizziness and headache(s); negative for near syncope, syncope, orthostatic symptoms or weakness Endo Endo: Positive for fatigue Allergy Allergy/Immunology: Negative for rash Cardiology Exam Const Appearance: cooperative, healthy appearing, comfortable and no acute distress Orientation: alert, awake and oriented x3 Head Head: normal to inspection Ears: hearing grossly normal bilaterally Nose: external nose normal Face and Sinus: face symmetric Mouth: oral mucosae normal Eyes General: appearance normal, both eyes and all related structures Eyelids: eyelids normal Neck Neck: no JVD and normal visual inspection Carotids: normal carotid upstroke Chest Chest inspection: normal inspection of the chest and normal respiratory effort; negative cough Auscultation: Bilateral: Clear to Auscultation Cardio Rate: regular rate Rhythm: regular rhythm Heart sounds: S1 normal and S2 normal; negative rub or gallop GI GI: normal to inspection Neuro General: alert, awake, oriented x3 and CN's II-XI intact bilaterally Skin Skin: no rashes or lesions noted Extremities Pulses: Normal: Right Posterior Tibial Pulse, Left Posterior Tibial Pulse, Right Radial Pulse, Left Radial Pulse Lower Extremity Edema: None: Bilateral Psych Psychological: normal affect Supplemental Info Stress test from June 2017 was a normal pharmacological myocardial perfusion stress test with no evidence of ischemia and showed a preserved ejection fraction of 53%. Echocardiogram from May 2017 showed an estimated ejection fraction of 53%, moderate concentric LVH, normal LV size, mild segmental systolic dysfunction (see wall motion), mild mitral valve insufficiency, and mild aortic valve insufficiency. Assessment AND Plan 1. Atherosclerosis of [place] coronary artery of [place] heart without angina pectoris I25.10 S/P bypass surgery in October 2016 with COLES to LAD, SVG to diagonal, SVG to proximal end of SVG to diagonal going to OM 2, and SVG to PDA CHANTEL Potts Patient's chest pain appears atypical. His most recent stress test from June 2017 was negative for stress-induced myocardial ischemia and his echocardiogram from May 2017 showed an ejection fraction of 53%. We will continue to monitor symptoms. He is instructed to contact our office if it changes or worsens. He will continue lifestyle modification and current medications. 2. Hx of CABG Z95.1 CABGx5 COLES -LAD, SVG-Diag. SVG to prox end of SVG to the diag to OM2, SVG-PDA, 10/30/16 CHANTEL Potts Patient will continue current plan as outlined above. 3. Dyspnea on exertion R06.09 CHANTEL Potts This is patient's main concern. His echocardiogram from May 2017 showed estimated ejection fraction of 53%, mild mitral valve insufficiency, and mild aortic valve insufficiency. He does not appear to be in a fluid volume overload state. He states since bypass surgery he has always had an element of shortness of breath on exertion. He will be referred to pulmonology for further input. Possible concerns include COPD related to long-standing history of employment with [employer] and obstructive sleep apnea. Orders Referrals: 4. Essential (primary) hypertension I10 5. Pure hypercholesterolemia E78.00; E78.0 CHANTEL Potts He will continue current statin medication. 6. Fatigue, unspecified type R53.83 CHANTEL Potts This too is patient's main concern. His laboratory work in the past was unremarkable. He was asked to hold his metoprolol for 2 weeks to see if there is any drastic improvement. Because it is a low dose, more than likely there will not. If no improvement in symptoms he was asked to resume beta-kelsey after two weeks. His fatigue may be attributed to frequent headaches, which is being evaluated with a head MRI and possible obstructive sleep apnea. 7. Type 2 diabetes mellitus with stage 3 chronic kidney disease, without long-term current use of insulin E11.22; N18.3 CHANTEL Potts He will continue to follow-up with primary care physician for this. Plan Detail Other Orders Referrals: Additional Comments - EDDIE RiderC Discussed the above patient with Dr. Lemus, he agrees with the plan of care. Thank you for allowing us to participate in the patients plan of care, if you have any questions please do not hesitate to call. This note was generated using a voice recognition system and there may be incorrect words, spelling or punctuation that were not noted when reviewing the office note prior to saving. Coding Level of Care Code Off vis,est,level 4 Diagnoses Atherosclerosis of [place] coronary artery of [place] heart without angina pectoris I25.10 [place] vs. transplanted heart: [place] heart Hx of CABG Z95.1 Dyspnea on exertion R06.09 Essential (primary) hypertension I10 Pure hypercholesterolemia E78.00; E78.0 Hyperlipidemia type: pure hypercholesterolemia Fatigue, unspecified type R53.83 Fatigue type: unspecified Type 2 diabetes mellitus with stage 3 chronic kidney disease, without long-term current use of insulin E11.22; N18.3 Diabetes mellitus complication status: with kidney complications Diabetes mellitus complication detail: with chronic kidney disease Diabetes mellitus group home insulin use: without group home use Chronic kidney disease stage: stage 3 (moderate) Coding Level of Care Code Off vis,est,level 4 Diagnoses Atherosclerosis of [place] coronary artery of [place] heart without angina pectoris I25.10 [place] vs. transplanted heart: [place] heart Hx of CABG Z95.1 Dyspnea on exertion R06.09 Essential (primary) hypertension I10 Pure hypercholesterolemia E78.00; E78.0 Hyperlipidemia type: pure hypercholesterolemia Fatigue, unspecified type R53.83 Fatigue type: unspecified Type 2 diabetes mellitus with stage 3 chronic kidney disease, without long-term current use of insulin E11.22; N18.3 Diabetes mellitus complication status: with kidney complications Diabetes mellitus complication detail: with chronic kidney disease Diabetes mellitus group home insulin use: without group home use Chronic kidney disease stage: stage 3 (moderate) 03/09/18 1248 <Electronically signed by Abdoulaye MORGANC> Date Abdoulaye MORGANC 03/10/18 1055<Electronically signed by Jason Lemus MD> Cosigner Signature: Date (if applicable) Jason Lemus MD CC: Yung Staples MD LIPID Collected: 02/24/2018 Status: F Source: [facility] 7:43 AM [facility] REPOSITORY TYPE CODE TESTS RESULT OUT OF REFERENCE UNITS RANGE LAB CHOL(LOINC 131-200 mg/dL ) Cholesterol 137 Result Comment: Cholesterol Reference Interval: Less than 200 Desirable 200-239 Borderline high risk 240 and above High risk LAB TRIG(LOINC) 40-150 mg/dL Triglycerides 135 Result Comment: Triglyceride Reference Interval: Less than 150 Normal 150-199 Borderline high risk 200-499 High risk 500 or higher Very high risk LAB HD(LOINC) 35-90 mg/dL HDL Cholesterol 35 Result Comment: HDL Reference Interval: Less than 40 Low - high risk 60 or above Optimal/lowers risk LAB LDL(LOINC) 0-130 mg/dL LDL Cholesterol 75 Result Comment: LDL is a calculated result and requires a 12-hr fast. LDL Reference Interval: Less than 100 Optimal 100-129 Near or above optimal 130-159 Borderline high risk 160-189 High risk 190 and above Very high risk Performed By: #### LIPID, CMP, GFR #### [place] [address] [address] CMP Collected: 02/24/2018 Status: F Source: [facility] 7:43 AM [facility] REPOSITORY TYPE CODE TESTS RESULT OUT OF REFERENCE UNITS RANGE LAB GLU(LOINC) 83-110 mg/dL Glucose Level 93 LAB NA(LOINC) 136-146 mEq/L Sodium Level 141 LAB K(LOINC) 3.5-5.1 mEq/L Potassium Level 4.7 LAB CL(LOINC) 98-107 mEq/L Chloride 106 LAB CO2(LOINC) 23-31 mEq/L CO2 26 LAB EBAL(LOINC mEq/L ) Electrolyte Balance 9.0 LAB BUN(LOINC) 7.0-18.0 mg/dL BUN High 25.3 LAB CRE(LOINC) 0.6-1.2 mg/dL Creatinine High Lvl (s) 1.7 LAB BC(LOINC) 7-27 ratio BUN/Creatinine 15 Ratio LAB CA(LOINC) 8.4-10.2 mg/dL Calcium Lvl 9.6 LAB PROT(LOINC 6.0-8.3 G/dL ) Total Protein 6.6 LAB ALB(LOINC) 3.4-4.8 G/dL Albumin Level 4.2 LAB GLB(LOINC) G/dL Globulin 2.4 LAB AG(LOINC) 1.1-2.5 ratio A/G Ratio 1.8 LAB BILT(LOINC 0.2-1.0 mg/dL ) Bili Total 0.7 LAB AP(LOINC) 40-135 IU/L Alk Phos 77 LAB AST(LOINC) 10-40 IU/L AST/SGOT 18 LAB ALT(LOINC) 10-35 IU/L ALT/SGPT 18 Performed By: #### LIPID, CMP, GFR #### [address] [address] .GFR Collected: 02/24/2018 Status: F Source: [facility] 7:43 AM [facility] REPOSITORY TYPE CODE TESTS RESULT OUT OF REFERENCE UNITS RANGE LAB GFRAA(LOINC ml/min/1.73 ) sqm GFR 46 Mexican Result Comment: GFR Population mean for , Non- Americans Ages 20-29 = 116 mL/min/1.73 sq.m. Ages 30-39 = 107 mL/min/1.73 sq.m. Ages 40-49 = 99 mL/min/1.73 sq.m. Ages 50-59 = 93 mL/min/1.73 sq.m. Ages 60-69 = 85 mL/min/1.73 sq.m. Ages 70+ = 75 mL/min/1.73 sq.m. Chronic Kidney Disease: Less than 60 mL/min/1.73 square meters End Stage Renal Disease: Less than 15 mL/min/1.73 square meters LAB GFRNO(LOINC) ml/min/1.73sqm GFR Non- 38 Result Comment: GFR Population mean for , Non- Americans Ages 20-29 = 116 mL/min/1.73 sq.m. Ages 30-39 = 107 mL/min/1.73 sq.m. Ages 40-49 = 99 mL/min/1.73 sq.m. Ages 50-59 = 93 mL/min/1.73 sq.m. Ages 60-69 = 85 mL/min/1.73 sq.m. Ages 70+ = 75 mL/min/1.73 sq.m. Chronic Kidney Disease: Less than 60 mL/min/1.73 square meters End Stage Renal Disease: Less than 15 mL/min/1.73 square meters Performed By: #### LIPID, CMP, GFR #### [place] [address] [address] ALLERGIES ALLERGIES DATE TYPE / CODE NAME / CODE REACTION SEVERITY SOURCE 09/27/2018 Drug lisinopril/F0 DRY COUGH IA [facility] Allergy/4160 [id number](RXNO Hospital 56184(SNOMED RM) Repository CT) 08/23/2018 Drug No Known Unknown [facility] Allergy/4160 Allergies/F00 Hospital 83098(SNOMED 8846162(RXNOR Repository CT) M) ENCOUNTERS ENCOUNTERS ADMIT/DISCHARGE ACCOUNT NUMBER ADMITTING ENCOUNTER LOCATION SOURCE CLASS 10/04/2018 [id number] Ambulatory [facility] ding:MTLAB Repository 09/27/2018/09/27/20 [id number] Ambulatory BMSBuilding: [place] [facility] Rep[place] 09/07/2018 [id number] Ambulatory [facility] ding:PSN Repository 09/07/2018 [id number] Ambulatory BMS[facility]: [facility] Repository 08/27/2018 [id number] Ambulatory [facility] ding:MTLAB Repository 08/23/2018/08/23/20 [id number] Ambulatory BMSBuilding: [place] 18 [facility] Repository 07/23/2018/07/23/20 [id number] Ambulatory [address] ding:CLSP Repository 07/23/2018/07/23/20 [id number] Ambulatory BMSBuilding: [place] 18 [facility] Repository 07/22/2018 [id number] Ambulatory [facility] ding:[facility]S Repository 07/22/2018 [id number] Ambulatory BMSBuilding: [facility] Repository 07/21/2018/07/21/20 [id number] Ambulatory BMSBuilding: [place] 18 BMS.[facility] Repository 07/20/2018 [id number] Ambulatory [facility] ding:MTLAB Repository 07/19/2018 [id number] Ambulatory [facility] ding:LAB.FUT Repository URE 03/10/2018 [id number] Ambulatory [facility] ding:MRI Repository 03/09/2018/03/09/20 [id number] Ambulatory BMSBuilding: [place] 18 [facility]MS[facility] Repository 03/02/[id number] [facility] Repository 02/24/2018/02/29/20 [id number] Ambulatory [address] ding:[facility] Foundation Repository PAYERS PAYERS ENCOUNTER GUARANTOR PAYER SUBSCRIBER SOURCE 10/04/2018 MARTHA D Primary MARTHA D [place] [id number] Insurance:ELSY WINTER: Community [employer] MEDICARE PPOPolicy [id number] Number: Repository [address]Gvc: 330 [id number] [phone] () Date:[id number] [address]FF: 10/04/2018 Secondary NOT GIVENUNK [place] Insurance:SELF PAY [facility] Number: Effective Repository Date:2018-10-04 09/27/2018 MARTHA D Primary MARTHA D [place] [id number] Insurance:ELSY WINTER: Community [employer] MEDICARE PPOPolicy [id number] Number: Repository [address]Emz: 330 [id number] [phone] () Date:7552-58-97QD14 [address] [address]EP: 09/27/2018 Secondary NOT GIVENUNK [place] Insurance:SELF PAY [facility] Number: Effective Repository Date:2018-09-20 09/07/2018 MARTHA D Primary MARTHA D [place] [id number] Insurance:ELSY WINTER: Community [employer] MEDICARE PPOPolicy [id number] [place] Number: Repository [address]Yfh: (330) [id number] [phone] (HP) Date:8240-36-65HT [address] [place] [address]65[address]LN: 09/07/2018 Secondary NOT GIVENUNK [place] Insurance:SELF PAY [facility] Number: Effective Repository Date:2018-08-23 09/07/2018 MARTHA D Primary MARTHA D [place] [id number] Insurance:ELSY WHITEB: Community [employer] MEDICARE PPOPolicy [id number] Number: Repository [address]Hcu: (330) [id number] [phone] (HP) Date:7711-17-02CN [address] [place] [address]HV: 09/07/2018 Secondary NOT GIVENUNK [place] Insurance:SELF PAY [facility] Number: Effective Repository Date:2018-09-07 08/27/2018 MARTHA D Primary MARTHA D [place] [id number] Insurance:ELSY WHITEB: Community [employer] MEDICARE PPOPolicy [id number] Number: Repository [address]Axv: (330) [id number] [phone] (HP) Date:7067-27-37DS [address] [place] [address] 799[address]LS: 08/27/2018 Secondary NOT GIVENUNK [place] Insurance:SELF PAY [facility] Number: Effective Repository Date:2018-08-27 08/23/2018 MARTHA D Primary MARTHA D [place] [id number] Insurance:ELSY WHITEB: [facility] [id number] Number: Repository [address]Uyk: (330) [id number] [phone] (HP) Date:3466-87-91XX [address] [place] [address] 828[address]DG: 08/23/2018 Secondary NOT GIVENUNK [place] Insurance:SELF PAY [facility] Number: Effective Repository Date:2018-08-23 07/23/2018 MARTHA D Primary MARTHA D [place] [id number] Insurance:ELSY GUNTERB[facility] OPolicy [id number] Number: Repository [address]Tzo: (330) [id number] [phone] () Date:2177-57-81KP [address] [address]CX: 07/23/2018 Secondary NOT GIVENUNK [place] Insurance:SELF PAY [facility] Number: Effective Repository Date:2018-07-21 07/23/2018 MARTHA D Primary MARTHA D [place] [id number] Insurance:ELSY WHITEB: [facility] CIR[facility]IC[facility] [id number] Number: Repository [address]Lgt: (330) [id number] [phone] () Date:3089-53-39QL [address] [place] [address] 55[address]CB: 07/23/2018 Secondary NOT GIVENUNK [place] Insurance:SELF PAY [facility] Number: Effective Repository Date:2018-07-23 07/22/2018 MARTHA D Primary MARTHA D [place] [id number] Insurance:ELSY WHITEB: [facility] CIRUNIT MEDICARE OPolicy [id number] Number: Repository [address]Pax: (330) [id number] [phone] () Date:5121-27-17UX [address] [place] [address] 89647LN: 07/22/2018 Secondary NOT GIVENUNK [place] Insurance:SELF PAY [facility] Number: Effective Repository Date:2018-07-21 07/22/2018 MARTHA D Primary MARTHA D [place] [id number] Insurance:ELSY WHITEB: [facility] PPOPolicy [id number] [place] Number: Repository [address]Zid: (330) [id number] [phone] (HP) Date:5634-86-34YC [address] [place] [address] 467[address]PE: 07/22/2018 Secondary NOT GIVENUNK [place] Insurance:SELF PAY [facility] Number: Effective Repository Date:2018-07-22 07/21/2018 MARTHA D Primary MARTHA D [place] [id number] Insurance:ELSY WHITEB: Community [employer] MEDICARE PPOPolicy [id number] [place] Number: Repository [phone]: (330) [id number] [phone] () Date:2873-65-56RO [address] [place] [address] 68661EC: 07/21/2018 Secondary NOT GIVENUNK [place] Insurance:SELF PAY [facility] Number: Effective Repository Date:2018-07-21 07/20/2018 MARTHA D Primary MARTHA D [place] [id number] Insurance:ELSY WHITEB: Community [employer] MEDICARE PPOPolicy [id number] [place] Number: Repository [address]Ldo: (330) [id number] [phone] () Date:2987-75-55QO [address] [place] [address] 89[address]HX: 07/20/2018 Secondary NOT GIVENUNK [place] Insurance:SELF PAY [facility] Number: Effective Repository Date:2018-07-20 07/19/2018 MARTHA D Primary MARTHA D [place] [id number] Insurance:ELSY WHITEB: Community [employer] MEDICARE PPOPolicy [id number] Number: Repository [address]Aqb: (330) [id number] [phone] (HP) Date:9530-89-67PY [address] [place] [address] 969[address]LT: 07/19/2018 Secondary NOT GIVENUNK [place] Insurance:SELF PAY [facility] Number: Effective Repository Date:2018-07-13 03/10/2018 MARTHA D Primary MARTHA D [place] [id number] [place] Insurance:ELSY WHITEB: [place] PPOPolicy [id number] Hospital [address]Xep: Number: Repository [phone] [id number] () Date:3216-99-31JY [address] [place] [address] 28[address]EB: 03/10/2018 Secondary NOT GIVENUNK [place] Insurance:SELF PAY [facility] Number: Effective Repository Date:2018-03-03 03/09/2018 MARTHA D Primary MARTHA D [place] [id number] [place] Insurance:ELSY WHITEB: [place], [place]ARE PPOPolicy [id number] Hospital [address]Twr: Number: Repository [phone] [id number] () Date:1277-27-41ZA [address], [place] [address]HH: 03/09/2018 Secondary NOT GIVENUNK [place] Insurance:SELF PAY [facility] Number: Effective Repository Date:2017-10-08 03/02/2018 MARTHA D Primary MARTHA D [place] [id number] [place] Insurance:ELSY WHITEB: [place] PPOPolicy [id number] Hospital [address]Iwt: Number: Repository [phone] [id number] () Date:7323-38-23AZ [address], [place] [address]QB: 03/02/2018 Secondary NOT GIVENUNK [place] Insurance:SELF PAY [facility] Number: Effective Repository Date:2018-03-02 02/24/2018 MARTHA D Primary MARTHA D [facility] HUNTERDOB: Insurance:ELSY WINTER: [facility] [id number] Repository [place] Number: [place] [facility] [place] [id number] [place], [place] [address]Beo: ([phone]) Date:2018-02-2420211Aly: 1990-43-51Tppt [phone] ()Tel: ([phone]) Name:ALAN Burger () () [id number], [place] 000-0000 () [address]EU:
== END ==
PROVIDERS: Family Provider Family Medicine; PCP Family Medicine; Referring Provider Family Medicine; Visit Provider Family Medicine
DX: E11.22 Type 2 diabetes mellitus with diabetic chronic kidney disease (principal); N18.3 Chronic kidney disease, stage 3 (moderate); E78.5 Hyperlipidemia, unspecified
CPT/HCPCS: 36415; 80053; 80061; 83036

== ENCOUNTER → 2019-01-31 08:01 | Outpatient (CLI) | payer MEDICARE, SELFPAY ==
[2018-09-27 08:51] VITALS: BMI 25.5
[2019-01-31 10:10] LABS: Color, Urine Yellow (Yellow); Glucose, Dipstick 100 mg/dl (Normal); Ketone-Dipstick 5 mg/dl (Negative); Leukocyte Esterase-Dipstick 500 /ul (Negative); Nitrite-Dipstick Positive (Negative); Occult Blood-Urine 25 /ul (Negative); Protein-Dipstick 30 mg/dl (Negative); Specific Gravity, Urine 1.025 (1.002-1.030); Urine Bilirubin Dipstick Negative (Negative); Urine Clarity Sl. Cloudy (Clear); Urine Urobilinogen 1 mg/dl (Normal)
[2019-01-31 10:19] LABS: Absolute Lymphocyte Count 1.13 X10^3/ul (0.83-4.51); Absolute Neutrophil Count 3.9 X10^3/uL (2.0-7.7); Basophil# 0.03 X10^3/uL; Basophil% 0.5 % (0-1); Eosinophil# 0.29 X10^3/uL; Eosinophils% 4.9 % (0-5); Hemoglobin 13.6 g/dl (13.0-16.5); Lymphocyte # 1.13 X10^3/ul (4.0); Lymphocyte % 19.3 % (19-41); Mean Corp Hgb Conc 33.2 g/gl (32-36); Mean Corpuscular Hgb 29.1 pg (27.0-32.0); Mean Corpuscular Volume 87.8 fL (80-94); Mean Platelet Vol. 11.3 fl (6.2-12.0); Monocyte% 8.5 % (0-10); Neutrophil % 66.6 % (47-70); Platelet Count 150 K/mm3 (150-450); RBC Distribution Width CV 13.4 % (11.6-14.6); RBC Distribution Width SD 41.9 fl (35.1-43.9); Red Blood Count 4.67 M/mm3 (4.6-6.2); White Blood Count 5.9 K/mm3 (4.4-11.0)
[2019-01-31 10:27] LABS: POSITIVE COUNT NO; POSITIVE DIFFERENTIAL NO; POSITIVE MORPHOLOGY NO
[2019-01-31 10:28] LABS: White Blood Cells >100 SEEN /hpf (0-5)
[2019-01-31 10:29] LABS: Red Blood Cells-Urine 5-10 SEEN /hpf (0-5); Squamous Epithelial Cells - UA 5-10 SEEN /hpf (0-5)
[2019-01-31 10:30] LABS: Bacteria 3+ /hpf (None Seen); Mucous, Urine 1+ /hpf (<or=2+); Transitional Epithelial - Ur 0-5 SEEN /hpf (0-5)
[2019-01-31 10:37] LABS: Hemoglobin A1c 7.1 % (4.2-6.3); Vitamin D,25 Hydroxy 26.8 ng/mL (29.95-100.01)
[2019-01-31 10:38] LABS: PTHIN 75.3 pg/mL (18.4-80.1)
[2019-01-31 10:40] LABS: ALB/GLOB Ratio 1.2 RATIO (0.9-2.4); AST(SGOT) 18 U/L (15-37); Alanine Aminotransfer ALT/SGPT 24 U/L (16-61); Albumin, Serum 3.7 g/dL (3.2-5.0); Alkaline Phosphatase 80 U/L (45-117); Anion Gap 8 (5-15); BUN 17 mg/dL (7-18); BUN/Creat Ratio 10.4 RATIO (10-20); Calcium,Total 8.9 mg/dL (8.5-10.1); Chloride 109 mmol/L (98-107); Cholesterol 126 mg/dL (200); Creatinine, Serum 1.64 mg/dL (0.70-1.30); EST Glomerular Filtration Rate 43 mL/min (>60); Est Glom Filt Rate - Afr Amer 52 mL/min (>60); Globulin 3.2 g/dL (2.2-4.2); Glucose 139 mg/dL (74-106); High Density Lipoprotein 35 mg/dL; Potassium 4.3 mmol/L (3.5-5.1); Protein, Total 6.9 g/dL (6.4-8.2); Sodium Level 142 mmol/L (136-145); Triglycerides 109 mg/dL; Very Low Density Lipoprotein 22 mg/dL (5-40)
[2019-01-31 10:46] LABS: Microalbumin,Random Urine 85.1 mg/L (NO RANGE EST.); Microalbumin:Creatinine Ratio 27.3 mg/g CRE (<30 mg/g CRE); Protein, Urine (Random) 50.7 mg/dL (<11.9); Protein:Creat Ratio 163 mg/g CRE (0-200)
== END ==
PROVIDERS: Family Provider Family Medicine; PCP Family Medicine; Referring Provider Family Medicine; Visit Provider Family Medicine
DX: E11.22 Type 2 diabetes mellitus with diabetic chronic kidney disease (principal); N18.3 Chronic kidney disease, stage 3 (moderate); E78.5 Hyperlipidemia, unspecified; N39.0 Urinary tract infection, site not specified
CPT/HCPCS: 36415; 80053; 80061; 81001; 82043; 82306; 82570; 83036; 83970; 84156; 85025; 87086; 87088; 87186

== ENCOUNTER → 2019-02-09 11:47 | Outpatient (CLI) | payer MEDICARE, SELFPAY ==
[2018-09-27 08:51] VITALS: BMI 25.5
--- NOTE | 2019-02-09 11:51 | RAD_ITS ---
STUDY: X-RAY - PELVIS AND BILATERAL HIPS REASON FOR EXAM: Male, 79 years old. Lower back and hip pain radiating down both legs. TECHNIQUE: AP view of the pelvis.? 3 views of the right hip, and 3 views of the left hip were obtained. COMPARISON: None. FINDINGS: There is a non-specific bowel gas pattern. There are postsurgical changes in the pelvis. There are vascular calcifications. There is a small soft tissue ossification adjacent to the lesser trochanter of the left proximal femur. There is generalized osteopenia. Normal bilateral iliac wings, sacroiliac joints and visualized sacrum. Normal bilateral superior and inferior pubic rami. Normal pubic symphysis. Normal bilateral ischial tuberosities. There is mild arthrosis of both hips. RAD/Hips B/L min 2 views w/ Pelvis IMPRESSION: Osteopenia with mild arthrosis of both hips. No acute abnormality. Electronically Signed: Marshal Durham MD at 14:11 EDT , Service support ,
--- NOTE | 2019-02-09 11:51 | RAD_ITS ---
STUDY: X-RAY - LUMBAR SPINE REASON FOR EXAM: Male, 79 years old. Lower back pain with radiation into both legs. TECHNIQUE: 5 view(s) of the lumbar spine were obtained. COMPARISON: None FINDINGS: There is generalized osteopenia. Normal lumbar lordosis. There is no substantial scoliosis. There is a normal alignment of the vertebrae. Normal vertebral bodies and endplates. There is diffuse intervertebral disc space narrowing with osteophyte formation. There is diffuse facet sclerosis. There are vascular calcifications. Postsurgical changes are noted in the pelvis. RAD/L/S Spine Min 4 Views IMPRESSION: Osteopenia with diffuse moderate lumbar spondylosis as described. Electronically Signed: Marshal Durham MD at 14:13 EDT , Service support ,
== END ==
PROVIDERS: Family Provider Family Medicine; PCP Family Medicine; Referring Provider Family Medicine; Visit Provider Family Medicine
DX: M25.552 Pain in left hip (principal); M25.551 Pain in right hip; M54.5 Low back pain
CPT/HCPCS: 72110; 73521

== ENCOUNTER 2019-03-01 06:20 | Day surgery (SDC) | payer MEDICARE, SELFPAY ==
[2019-02-16 09:14] VITALS: BMI 25.5
--- NOTE | 2019-02-16 09:23 | HP_ITS ---
Intake Vital Signs 02/16/19 Body Mass Index (BMI) 25.5 02/16/19 Height 5 ft 9.25 in 02/16/19 Weight: 171 lb 02/16/19 Body Mass Index (BMI) 25.0 02/16/19 Blood Pressure 116/62 02/16/19 Blood Pressure Location Rt brachial 02/16/19 Blood Pressure Position Sitting 02/16/19 Respiratory Rate 14 02/16/19 Pulse Rate 76 02/16/19 Pulse Source Monitor 02/16/19 Temperature 98.0 F 02/16/19 Temperature Source Oral 02/16/19 Pulse Ox 97 02/16/19 Oxygen Delivery Method room air Intake Visit Reasons: BARRETTS ESOPHAGUS/NEEDS EGD Chief Complaint: Follow up Washtub Worker Required: No Is patient in pain?: No Allergies lisinopril Adverse Reaction (Mild, Verified 09/27/18 09:30) Dry cough Medications Aspirin E.C. [Ecotrin] 81 mg PO DAILY@0800 03/20/17 [History Confirmed 02/16/19] metoprolol tartrate 25 mg tablet 25 mg PO BID #60 tab 07/21/18 [Rx Confirmed 02/16/19] atorvastatin 40 mg tablet 40 mg PO DAILY #90 tab 08/23/18 [Rx Confirmed 02/16/19] furosemide 40 mg tablet 40 mg PO DAILY #90 tab 08/30/18 [Rx Confirmed 02/16/19] glimepiride 4 mg tablet 4 mg PO DAILY tab 09/27/18 [History Confirmed 02/16/19] isosorbide mononitrate ER 30 mg tablet,extended release 24 hr 30 mg PO DAILY #90 tab 09/27/18 [Rx Confirmed 02/16/19] losartan 25 mg tablet 25 mg PO DAILY #90 tab 09/27/18 [Rx Confirmed 02/16/19] cholecalciferol (vitamin D3) 5,000 unit capsule 5,000 unit PO DAILY 02/16/19 [History Confirmed 02/16/19] PFSH Medical History Hx TIA/stroke w/o resid (Acute) Barretts esophagus (Acute) Chest pain (Chronic) Dyspnea on exertion (Chronic) Shortness of breath (Chronic) Personal history of prostate cancer (Resolved) Chronic kidney disease (Chronic) Incomplete left bundle branch block (Chronic) History of non-ST elevation myocardial infarction (NSTEMI) (Chronic) 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 (Acute) Paroxysmal atrial fibrillation (Chronic) Hyperlipidemia (Chronic) Ischemic cardiomyopathy (Chronic) 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) DM2 (diabetes mellitus, type 2) (Chronic) Essential (primary) hypertension (Chronic) Acute respiratory failure with hypoxemia (Resolved) Surgical History History of dental surgery (Acute) Hx of colonoscopy (Acute) History of esophagogastroduodenoscopy (EGD) (Acute) Hx of prostatectomy (Chronic) 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 The patient is kindly referred by Dr.John Brock and a written copy of my surgical consult and recommendations will be returned to him. The patient has had a previous history of Osorio's esophagus. His last upper endoscopy was done by Dr. Brayan Adkins in 2009. 2 years ago he had coronary bypass surgery. His only chronic complaint since that procedure is dyspnea on exertion. He has had a gradual slow 18 pound weight loss since that procedure 2 years ago. He states that there are certain foods that he has trouble swallowing he occasionally will have coughing after eating. He claims that he regurgitates foods intermittently. He has not noticed any blood in his regurgitation. He denies any abdominal pain. ROS General General: Yes fatigue; no weight change, appetite, colon cancer or breast cancer HEENT HEENT: No difficulty swallowing, eye injury, eye surgery, swollen glands or hoarseness Endo Endocrine: Yes diabetes mellitus; no thyroid disease, thyroid cancer, Hair loss, heat intolerance or cold intolerance Skin Skin: No rash or changing moles Musc Musculoskeletal: Yes back problems and arthritis; no rheumatoid arthritis, gout or joint pain Cardio Cardiovascular: Yes heart disease, high blood pressure, heart attack and heart stent; no murmur, pacemaker, atrial fibrillation, palpitations, shortness of breat with exertion or chest pain Psych Psychiatric: No depression, anxiety or hearing voices Resp Respiratory: Yes shortness of breath, No sleep apnea, No cough, No COPD, No asthma, No emphysema, No wheezing Gastro Gastrointestinal: No abdominal pain, No nausea or vomiting, No diarrhea, No constipation, No blood in stool, No acid reflux, No hemorrhoids, No ulcers, No gallbladder problem, No black,tarry stools Yunior Hematologic: Yes blood thinners, No blood disorders, No bleeding, No anemia, No blood clots Neuro Neurologic: Yes numbness, Yes tingling, Yes other (Hx of Stroke/ TIA 2005) Exam Const General: cooperative, healthy appearing, comfortable, no acute distress Nutritional Appearance: average body habitus HENMT Head: normal to inspection Eyes General: appearance normal, both eyes and all related structures Chest Other: Well-healed median sternotomy incision Resp Effort & Inspection: normal respiratory effort Auscultation: clear to auscultation bilaterally Cardio Rate: regular rate Rhythm: regular rhythm Heart Sounds: no murmurs GI Palpation: soft, no hepatosplenomegaly Auscultation: normal bowel sounds Musc Cervical Spine: normal cervical lordosis Extrem General: no calf tenderness bilaterally Psych Affect: normal affect Assessment & Plan Plan 79-year-old gentleman with a previous history of Osorio's and progressive esophageal dysphasia. I am recommending a esophagogastroduodenoscopy with possible biopsy or polypectomy or irritation if indicated. I have discussed in detail the technique, benefit, risks and alternatives. He has had an opting to ask and have questions answered. I very much appreciate the kind opportunity of assisting with his surgical care. CC: Dr Abdoulaye Aranda M.D., F.A.C.S. Coding Level of Care Code Detailed, Low 02/16/19 0923 <Electronically signed by Kirt Aranda MD> Date Kirt Aranda MD Patent re evaluated and no changes noted.
[2019-03-01] VITALS (10 sets, daily range): BP systolic 103–163; BP diastolic 64–108; PULSE 72–81; RESP 16; TEMP 35.8–36.3; O2SAT 91–97; BMI 25.2
[2019-03-01 07:10] LABS: Bedside Glucose 121 mg/dL (70-110)
--- NOTE | 2019-03-01 07:30 | EGD_PTH ---
PATIENT: MARTHA GUNTER LOC: EN U#:[id number] AGE/SX: 79/M ROOM: RE03/01/[address]: Dr. Kirt Aranda MD : 1940 BED: DIS: 03/01/2019 SPEC #: [id number] RECD: 03/01/19 09:57 STATUS: HA[place]LEY [place] #: [id number] GRETA: 03/01/19 07:[address]: Kirt Aranda DEPT: SURGICAL PATHOLOGY RECD BY: Howard Figueroa ENTERED: 03/01/19 10:31 SP TYPE: EGD BIOPSY OTHR DR: Dr. Abdoulaye Brock MD Tissues: A - Gastric mucous membrane B - Esophageal mucous membrane Procedures: Special Stain Group II Surgery Specimen Level IV Alcian Blue/PAS (control) HEADER OPERATION: EGD (MOD) PRE-OP DIAGNOSIS: Osorio's esophagus TISSUE SUBMITTED: A - Antrum biopsies for H. pylori, B - Distal esophagus biopsies MICROSCOPIC DIAGNOSIS A. Gastric antrum, biopsy: Chronic gastritis with focal acute gastritis. Positive for Helicobacter pylori. B. Distal esophagus, biopsy: Gastroesophageal junction mucosa with moderate chronic inflammation and focal acute inflammation. No evidence of intestinal metaplasia. See comment. AM:justa 03/02/19 COMMENT A. The results of immunohistochemistry for Helicobacter pylori will be reported separately ([id number]). B. Alcian blue/PAS stain with matched control supports the above diagnosis. MICROSCOPIC DESCRIPTION Slides are reviewed. GROSS DESCRIPTION A - Received in fixative is one container labeled with the patient's name and designated antral biopsy. The specimen consists of multiple irregular fragments of light chery soft tissue that in aggregate measure 0.6 x 0.2 x 0.1 cm. The specimen is totally submitted in one cassette. B - Received in fixative is one container labeled with the patient's name and designated distal esophagus biopsy. The specimen consists of multiple irregular fragments of light chery soft tissue that in aggregate measure 1.5 x 0.5 x 0.1 cm. The specimen is totally submitted in one cassette. / SJ:justa 03/01/19 TC:5 CPT: 86960 x2, 57605
--- NOTE | 2019-03-01 07:30 | IMM_PTH ---
PATIENT: MARTHA GUNTER LOC: EN U#:[id number] AGE/SX: 79/M ROOM: RE03/01/[address]: Dr. Kirt Aranda MD : 1940 BED: DIS: 03/01/2019 SPEC #: [id number] RECD: 03/01/19 11:16 STATUS: HAILEY VINCENT #: [id number] GERTA: 03/01/19 07:[address]: Kirt Aranda DEPT: IMMUNOHISTOCHEMISTRY RECD BY: Tali Hansen ENTERED: 03/01/19 11:17 SP TYPE: IMMUNO OTHR DR: Dr. Abdoulaye Brock MD Tissues: A - Stomach, NOS Procedures: H Pylori (initial) PHYSICIAN & INSTITUTION [place] [id number] SPECIMEN INFORMATION: Tissue Source: A - Antrum biopsy Clinical Info: Osorio's esophagus Specimen Number: [id number] CPT code: 48154 METHODOLOGY: Deparaffinized sections of prefer/formalin-fixed tissue or PAP/DQ stained slides are incubated with monoclonal/polyclonal antibodies/oligonucleotide probes. Localization is made via biotin free immunoperoxidase method. Appropriate controls are performed and reacted as expected. Results on target cell population are indicated in the following table: RESULTS: ANTIBODY / CLONE RESULT Block A H Pylori (polyclonal) positive These tests were developed and their performance characteristics determined by [facility]. They may not have been cleared or approved by the U.S. Food and Drug Administration. The FDA has determined that such clearance or approval is not necessary. INTERPRETATION: A. Antrum biopsy: Positive for abundant Helicobacter pylori organisms. AM:justa 03/02/19
--- NOTE | 2019-03-01 08:03 | OP.ENDO_ITS ---
03/01/2019 Abdoulaye Brock [address] [place] [address] Re : Upper GI endoscopy procedure for Shawnthaddeus Luz Dear Dr. Brock This procedure was performed on Friday, March 01, 2019. My impressions and recommendations are as follows: Impressions : - Medium-sized hiatal hernia. - Esophageal mucosal changes suspicious for Osorio's esophagus. Biopsied. - Z-line variable, 45 cm from the incisors. - Erythematous mucosa in the antrum. Biopsied. - Normal examined duodenum. Recommendations : - Discharge patient to home. - Resume previous diet. - Continue present medications. - Telephone my office for pathology results in 1 week. - Repeat upper endoscopy in 3 years for surveillance. My findings are described in the full procedure note, which is enclosed. If I can be of further assistance, please feel free to contact me at Doctor phone number(s): Work: . Sincerely, Kirt Aranda MD 03/01/2019 8:02:59 AM This report has been signed electronically.
== END 2019-03-01 09:17 | disposition home or self-care (01) ==
LOC: EN 06:27 → AC 06:29
PROVIDERS: Family Provider Family Medicine; PCP Family Medicine; Referring Provider Surgery; Visit Provider Surgery
PROC: (CPT 43239; principal; 2019-03-01 07:25)
DX: K22.70 Barrett's esophagus without dysplasia (principal); K44.9 Diaphragmatic hernia without obstruction or gangrene; K29.50 Unspecified chronic gastritis without bleeding; B96.81 Helicobacter pylori [H. pylori] as the cause of diseases classified elsewhere; K22.8 Other specified diseases of esophagus; I13.0 Hypertensive heart and chronic kidney disease with heart failure and stage 1 through stage 4 chronic kidney disease, or unspecified chronic kidney disease; E11.22 Type 2 diabetes mellitus with diabetic chronic kidney disease; N18.9 Chronic kidney disease, unspecified; I25.119 Atherosclerotic heart disease of native coronary artery with unspecified angina pectoris; I50.43 Acute on chronic combined systolic (congestive) and diastolic (congestive) heart failure; I44.7 Left bundle-branch block, unspecified; I48.0 Paroxysmal atrial fibrillation; I25.5 Ischemic cardiomyopathy; I25.2 Old myocardial infarction; E78.5 Hyperlipidemia, unspecified; Z95.1 Presence of aortocoronary bypass graft; Z79.82 Long term (current) use of aspirin; Z79.84 Long term (current) use of oral hypoglycemic drugs; Z79.899 Other long term (current) drug therapy; Z86.73 Personal history of transient ischemic attack (TIA), and cerebral infarction without residual deficits; Z85.46 Personal history of malignant neoplasm of prostate
CPT/HCPCS: 43239; 82962; 88305; 88313; 88342; 99152; 99153; J7120

== ENCOUNTER → 2019-04-26 12:10 | Outpatient (CLI) | payer MEDICARE, SELFPAY ==
[2019-03-29 13:54] VITALS: BMI 25.7
[2019-04-26 13:52] LABS: Anion Gap 7 (5-15); BUN 18 mg/dL (7-18); BUN/Creat Ratio 11.2 RATIO (10-20); Calcium,Total 9.3 mg/dL (8.5-10.1); Chloride 103 mmol/L (98-107); EST Glomerular Filtration Rate 44 mL/min (>60); Est Glom Filt Rate - Afr Amer 54 mL/min (>60); Glucose 135 mg/dL (74-106); Potassium 4.1 mmol/L (3.5-5.1); Sodium Level 137 mmol/L (136-145)
== END ==
PROVIDERS: Family Provider Family Medicine; PCP Family Medicine; Referring Provider Internal Medicine Cardiovascular Disease; Visit Provider Internal Medicine Cardiovascular Disease
DX: I25.5 Ischemic cardiomyopathy (principal)
CPT/HCPCS: 36415; 80048

== ENCOUNTER → 2019-05-10 11:01 | Outpatient (CLI) | payer MEDICARE, SELFPAY ==
[2019-03-29 13:54] VITALS: BMI 25.7
[2019-05-10 11:06] LABS: Bacteria 0 SEEN /hpf (None Seen); Mucous, Urine 0 SEEN /hpf (<or=2+); Red Blood Cells-Urine 0 SEEN /hpf (0-5); White Blood Cells 0 SEEN /hpf (0-5)
[2019-05-10 12:24] LABS: Color, Urine Yellow (Yellow); Glucose, Dipstick Normal (Normal); Ketone-Dipstick Negative (Negative); Leukocyte Esterase-Dipstick Negative /ul (Negative); Nitrite-Dipstick Negative (Negative); Occult Blood-Urine Negative /ul (Negative); Protein-Dipstick Negative (Negative); Urine Bilirubin Dipstick Negative (Negative); Urine Clarity Clear (Clear); Urine Urobilinogen Normal (Normal)
[2019-05-10 12:27] LABS: Absolute Lymphocyte Count 1.85 X10^3/uL (0.83-4.51); Absolute Neutrophil Count 6.6 X10^3/uL (2.0-7.7); Basophil# 0.04 X10^3/uL; Basophil% 0.4 % (0-1); Eosinophil# 0.11 X10^3/uL; Eosinophils% 1.2 % (0-5); Hematocrit 48.1 % (40-54); Hemoglobin 15.4 g/dL (13.0-16.5); Lymphocyte # 1.85 X10^3/ul (4.0); Lymphocyte % 19.7 % (19-41); Mean Corpuscular Hgb 28.3 pg (27.0-32.0); Mean Corpuscular Volume 88.3 fL (80-94); Mean Platelet Vol. 12.2 fl (6.2-12.0); Monocyte% 8.5 % (0-10); NRBC Flagged by Analyzer 0 % (0-5); Neutrophil # 6.55 X10^3/uL (2.7-7.7); Neutrophil % 69.9 % (47-70); Platelet Count 148 K/mm3 (150-450); RBC Distribution Width CV 12.4 % (11.6-14.6); RBC Distribution Width SD 40.3 fl (35.1-43.9); Red Blood Count 5.45 M/mm3 (4.6-6.2); White Blood Count 9.4 K/mm3 (4.4-11.0)
[2019-05-10 12:45] LABS: Squamous Epithelial Cells - UA 0-5 SEEN /hpf (0-5)
[2019-05-10 12:49] LABS: Hemoglobin A1c 7.3 % (4.2-6.3)
[2019-05-10 12:50] LABS: Protein, Urine (Random) < 6.0 mg/dL (<11.9)
[2019-05-10 13:01] LABS: ALB/GLOB Ratio 1.3 RATIO (0.9-2.4); AST(SGOT) 23 U/L (15-37); Alanine Aminotransfer ALT/SGPT 38 U/L (16-61); Albumin, Serum 4.1 g/dL (3.2-5.0); Alkaline Phosphatase 105 U/L (45-117); Anion Gap 9 (5-15); BUN 20 mg/dL (7-18); Calcium,Total 9.2 mg/dL (8.5-10.1); Chloride 103 mmol/L (98-107); Cholesterol 178 mg/dL (200); Creatinine, Serum 1.67 mg/dL (0.70-1.30); EST Glomerular Filtration Rate 42 mL/min (>60); Est Glom Filt Rate - Afr Amer 51 mL/min (>60); Globulin 3.1 g/dL (2.2-4.2); Glucose 149 mg/dL (74-106); High Density Lipoprotein 34 mg/dL; Potassium 4.4 mmol/L (3.5-5.1); Protein, Total 7.2 g/dL (6.4-8.2); Sodium Level 140 mmol/L (136-145); Triglycerides 176 mg/dL; Very Low Density Lipoprotein 35 mg/dL (5-40)
[2019-05-10 13:12] LABS: Vitamin D,25 Hydroxy 47.6 ng/mL (29.95-100.01)
== END ==
PROVIDERS: Family Provider Family Medicine; PCP Family Medicine; Referring Provider Family Medicine; Visit Provider Family Medicine
DX: E11.22 Type 2 diabetes mellitus with diabetic chronic kidney disease (principal); N18.3 Chronic kidney disease, stage 3 (moderate); E78.5 Hyperlipidemia, unspecified; E55.9 Vitamin D deficiency, unspecified
CPT/HCPCS: 36415; 80053; 80061; 81001; 82306; 82570; 83036; 84156; 85025

== ENCOUNTER → 2019-05-16 12:46 | Outpatient (CLI) | payer MEDICARE, SELFPAY ==
[2019-03-29 13:54] VITALS: BMI 25.7
--- NOTE | 2019-05-16 12:48 | RAD_ITS ---
STUDY: SWALLOWING STUDY REASON FOR EXAM: Male, 79 years old. Dysphagia. TECHNIQUE: The examination was performed with Speech Pathology in attendance. Under fluoroscopic observation, the patient ingested thin barium, thick barium, barium pudding, and barium coated cracker. FLUOROSCOPY TIME: 1:47 minutes/seconds. 1658 spot images were obtained. RADIOLOGIST INVOLVEMENT: Radiologist was present and providing direct supervision. COMPARISON: None. FINDINGS: The following was observed during swallowing of the various mixtures of barium: Thin Barium: Transient penetration with ejection upon ingestion of thin liquids. Barium Pudding: There was no evidence of aspiration or laryngeal penetration. Barium Coated Cracker: There was no evidence of aspiration or laryngeal penetration. RAD/Swallowing Function w/Video IMPRESSION: Transient penetration with ejection upon ingestion of thin liquids. The swallow study findings were discussed with the patient by the speech pathologist at the conclusion of the examination. Please see speech pathology report for more information and recommendations. Electronically Signed: Manny Valle, at 13:28 EDT , Service support ,
--- NOTE | 2019-05-16 13:00 | SP.MBSS_ITS ---
PRIMARY / SECONDARY DIAGNOSIS: dysphagia (R13.10) REFERRING PHYSICIAN: Dr. Abdoulaye Brock MD. CURRENT DIET: regular textures, thin liquids DENTITION: WFL MENTAL STATUS: WNL RESPIRATORY STATUS: O2 via room air REASON FOR REFERRAL: The Patient is an 79 year old male referred for a modified barium swallow (MBS) study to objectively assess the Patients oropharyngeal swallow function under fluoroscopy secondary to reported persistent dysphagia following esophagogastroduodenoscopy (EGD) completion approximately 2 months prior, with reported intermittent post prandial coughing with thin liquids and solid textures in combination with persistent xerostomia, nausea and loss of appetite (may be medication related), and odynophagia (though this has improved). MEDICAL HISTORY: Osorio?s esophagus, status post esophagogastroduodenoscopy (EGD), acute respiratory failure with hypoxemia, dyspnea on exertion, shortness of breath, prior transient ischemic attack, incomplete left bundle branch block, non-ST elevation myocardial infarction (NSTEMI), ischemic cardiomyopathy, acute on chronic combined systolic (congestive) and diastolic (congestive) heart failure, coronary artery bypass surgery, left heart catheterization, atherosclerosis of coronary artery of [place] heart with angina pectoris, paroxysmal atrial fibrillation, essential (primary) hypertension, hyperlipidemia, chronic kidney disease, prostate cancer status post prostatectomy, type 2 diabetes mellitus. PREVIOUS MODIFIED BARIUM SWALLOW STUDY: None. ADDITIONAL OBJECTIVE ASSESSMENT RESULTS: 03/10/2019 MRI revealed moderate atrophy and periventricular white matter ischemic change; no evidence for acute infarct; tiny old lacunar infarct in left basal ganglia ASSESSMENT PARAMETERS: The Patient participated in a Modified Barium Swallow (MBS) study on 05/16/2019. Dr. Valle was the radiologist present for this evaluation. This study was recorded in the lateral view and images were sent to PACs for storage. Scoring was completed through each trial using the 8-point Penetration-Aspiration Scale (PAS), and summarized via the Modified Barium Swallow Impairment Profile (MBSImP) and the Bolus Residue Scale (BRS), with severity scoring through the Dysphagia Severity Rating Scale (DSRS) and the Swallowing Performance Scale (PSP), and recommended diet textures through the International Dysphagia Diet Standardisation Initiative (IDDSI). RESULTS OF THE EVALUATION: The Patient presents with oropharyngeal phase findings found to be grossly within functional limits (DSRS: 1; SPS: 2) OBJECTIVE ASSESSMENT OF SWALLOW FUNCTION (QUANTITATIVE ? PER TRIAL): PENETRATION / ASPIRATION SCALE (WHITAKER): 1 = does not enter airway 2 = enters airway/above vocal folds/ejected 3 = enters airway/above vocal folds/not ejected 4 = enters airway/contacts vocal folds/ejected 5 = enters airway/contacts vocal folds/not ejected 6 = enters airway/below vocal folds/ejected 7 = enters airway/below vocal folds/not ejected despite effort 8 = enters airway/below vocal folds/no effort PENETRATION / ASPIRATION SCALE (SCORE): Thin liquid - 5 mL tsp.: 1 Thin liquids via cup (single sip): 1 Thin liquids via cup (single sip): 2 Thin liquids via cup (single sip): 2 Thin liquids via straw (sequential swallows): 1 Pudding via spoon: 1 Regular textured cookie: 1 Thin liquids via straw (chin tuck): 1 Thin liquids via straw (chin tuck): 1 OBJECTIVE ASSESSMENT OF SWALLOW FUNCTION (QUANTITATIVE ? AGGREGATE): MODIFIED BARIUM SWALLOW IMPAIRMENT PROFILE (MBSImP) LABIAL SEAL: 0 (of 4) no labial escape TONGUE CONTROL: 0 (of 3) cohesive bolus BOLUS PREPARATION / MASTICATION: 0 (of 3) timely and efficient BOLUS TRANSPORT / LINGUAL MOTION: 0 (of 4) brisk tongue motion ORAL RESIDUE: 1 (of 4) trace residue lining oral structures INITIATION OF PHARYNGEAL SWALLOW: 1 (of 4) valleculae SOFT PALATE ELEVATION: 0 (of 4) no bolus between soft palate & pharyngeal wall LARYNGEAL ELEVATION: 1 (of 3) partial superior movement / approximation ANTERIOR HYOID EXCURSION: 0 (of 2) complete movement EPIGLOTTIC MOVEMENT: 0 (of 2) complete inversion LARYNGEAL VESTIBULE CLOSURE: 0 (of 2) complete closure PHARYNGEAL STRIPPING WAVE: 0 (of 2) present / complete PE SEGMENT OPENIN (of 3) complete distension / duration; no obstruction TONGUE BASE RETRACTION: 1 (of 4) trace column of contrast PHARYNGEAL RESIDUE: 1 (of 4) trace residue ESOPHAGEAL BOLUS CLEARANCE: 1 (of 4) esophageal retention BOLUS RESIDUE SCALE (BRS): 2 (of 6) residue in valleculae DYSPHAGIA SEVERITY RATING SCALE (DSRS): 1 (within functional limits) SWALLOWING PERFORMANCE SCALE (SPS): 2 (within functional limits) OBJECTIVE ASSESSMENT OF SWALLOW FUNCTION (QUALITATIVE): ORAL PREPARATORY PHASE: competent bolus manipulation without fragmented swallowing (piecemeal deglutition); sufficient anterior oral containment during presentation / manipulation; preserved management of breathing / bolus formation without disrupted E ? S ? E pattern. ORAL TRANSITIONAL PHASE: no presence of transitional incompetence; no bolus consolidation impairments; sufficient oral containment across textures. PHARYNGEAL PHASE: no significant pharyngeal dyssynchrony; appropriate hyolaryngeal excursion and laryngeal vestibule closure / pressure; no signs of pharyngeal dysmotility; no signs of velopharyngeal impairments; occasional transient penetration with thin liquids not outside age related norms; no further penetration / aspiration throughout trials. ESOPHAGEAL PHASE: post prandial esophageal retention of solids with unclear clinical significance. RESPONSE TO STRATEGIES: all deficits managed successfully with bolus rate / volume adjustments, and possible benefit from execution of the chin tuck posture. INTERVENTION RECOMMENDATIONS AND CONSIDERATIONS: The Patient presents with mastication and deglutition abilities found to be grossly within functional limits. Intermittent transient penetration is not a significant finding when comparing the Patients profile to age matched peers; no aspiration appreciated throughout consistencies trialed. No further skilled speech-language services warranted at this time targeting dysphagia. Would consider further workup via otolaryngology to determine if there is structural damage or irritation status post EGD that may be contributing to the Patients reported symptomology. POST ASSESSMENT EDUCATION: Results and recommendations were discussed with the Patient and Patients family immediately following MBS completion, with the Patient and Patients family verbalizing understanding and agreement with all recommendations and education provided. I provided brief overview of signs and symptoms of aspiration, with recommendations for the Patient to further discuss symptoms with the Patients primary care provider. DIET TEXTURE RECOMMENDATIONS: Will recommend a regular ? soft textured (IDDSI: 6), thin liquid diet (IDDSI: 0) diet RECOMMENDED COMPENSATORY STRATEGIES: Chin tuck, reduced bolus volume / rate of ingestion, seated upright at 90 degrees during PO intake, remain upright for 30-60 minutes post meal (GERD precaution), medications one at a time with a liquid chaser. IMAGE COUNT: [id number] Howard Pavon M.A., CCC-DIRECTOR SECURITY MANAGEMENT MBSImP Certified, LSVT Certified [facility] Speech-Language Pathology Department [email or web address]
== END ==
PROVIDERS: Family Provider Family Medicine; PCP Family Medicine; Referring Provider Family Medicine; Visit Provider Family Medicine
DX: R13.10 Dysphagia, unspecified (principal)
CPT/HCPCS: 74230; 92611

== ENCOUNTER → 2019-06-01 13:49 | Outpatient (CLI) | payer MEDICARE, SELFPAY ==
[2019-06-01 13:00] VITALS: BMI 25.1
--- NOTE | 2019-06-01 13:57 | RAD_ITS ---
STUDY: X-RAY CHEST REASON FOR EXAM: Male, 79 years old. Shortness of breath TECHNIQUE: Frontal and lateral views of the chest COMPARISON: 07/21/2018 FINDINGS: The lungs are clear. There are no pleural effusions. There is no pneumothorax. The heart is normal in size. Again noted are sternotomy wires. The visualized osseous structures are within normal limits. RAD/Chest PA and Lateral IMPRESSION: No acute thoracic pathology. Electronically Signed: Jaime Chen, at 14:22 EDT Tel , Service support ,
[2019-06-01 15:20] LABS: BNP,B-Type NATRIURETIC PEPTIDE 890.1 pg/mL (0-100)
== END ==
PROVIDERS: Family Provider Family Medicine; PCP Family Medicine; Referring Provider Nurse Practitioner Family; Visit Provider Nurse Practitioner Family
DX: I25.5 Ischemic cardiomyopathy (principal); R06.02 Shortness of breath; R06.09 Other forms of dyspnea
CPT/HCPCS: 36415; 71046; 83880

== ENCOUNTER → 2019-06-17 09:45 | Outpatient (CLI) | payer MEDICARE, SELFPAY ==
[2019-06-01 13:00] VITALS: BMI 25.1
--- NOTE | 2019-06-17 09:50 | RAD_ITS ---
PROCEDURE: Fluoroscopic guided Hip Injection DATE: June 17, 2019. INDICATION: Male, 79 years old. Chronic right hip pain. PHYSICIAN: Manny Valle M.D. MEDICATIONS: 40 mg of Kenalog and 5 cc of 1% lidocaine. 2% Lidocaine administered subcutaneously for local anesthesia. ACCESS SITE: Right hip. NEEDLE: 22-gauge spinal needle. FLUOROSCOPY TIME (if supplied): (0:28) minutes/seconds FINDINGS: The risks, benefits, and alternatives to the procedure were explained to the patient. The specific risks of bleeding, infection, and neurovascular injury were detailed and accepted. Witnessed informed consent was obtained. A 22-gauge spinal needle was positioned under radiographic fluoroscopic localization. Approximately 2 cc of Isovue-300 instilled for localization purposes. Medication was then injected. The patient tolerated the procedure well without any immediate complications. RAD/Inj/Asp Bari Jt Should/Hip/Knee IMPRESSION: 1. Successful fluoroscopic guided hip injection. Electronically Signed: Manny Valle, at 11:21 EDT , Service support ,
== END ==
PROVIDERS: Family Provider Family Medicine; PCP Family Medicine; Referring Provider Family Medicine; Visit Provider Family Medicine
DX: M16.10 Unilateral primary osteoarthritis, unspecified hip (principal)
CPT/HCPCS: 20610; 77002

== ENCOUNTER → 2019-08-19 09:23 | Outpatient (CLI) | payer MEDICARE, SELFPAY ==
[2019-06-01 13:00] VITALS: BMI 25.1
--- NOTE | 2019-08-19 09:26 | RAD_ITS ---
STUDY: X-RAY CHEST REASON FOR EXAM: Male, 79 years old. Shortness of breath on exertion TECHNIQUE: PA and lateral views of the chest. COMPARISON: June 01, 2019 chest x-ray FINDINGS: The interstitial markings are mildly prominent. There is predominance of interstitial prominence in the left lung base similar to the prior study. There is no demonstrated pleural abnormality. Sternal cerclage wires are present from a prior sternotomy. There is mild cardiomegaly. Normal mediastinum and heaven. Normal visualized pulmonary arteries. There is atherosclerotic tortuosity of the aortic arch and descending thoracic aorta. Normal visualized thoracic spine. Normal visualized ribs, clavicles, and shoulders. There is no demonstrated abnormality of the visualized soft tissue structures of the upper abdomen. RAD/Chest PA and Lateral IMPRESSION: Relatively stable lung markings. Status post sternotomy. Mild cardiomegaly. Electronically Signed: Britni Doyle MD at 16:06 EST Tel , Service support ,
== END ==
PROVIDERS: Family Provider Family Medicine; PCP Family Medicine; Referring Provider Family Medicine; Visit Provider Family Medicine
DX: R06.02 Shortness of breath (principal)
CPT/HCPCS: 71046

== ENCOUNTER → 2019-08-22 07:34 | Outpatient (CLI) | payer MEDICARE, SELFPAY ==
[2019-06-01 13:00] VITALS: BMI 25.1
[2019-08-22 10:44] LABS: Absolute Lymphocyte Count 1.43 X10^3/uL (0.83-4.51); Basophil# 0.04 X10^3/uL; Basophil% 0.7 % (0-1); Eosinophil# 0.21 X10^3/uL; Eosinophils% 3.4 % (0-5); Hematocrit 43.5 % (40-54); Hemoglobin 14.1 g/dL (13.0-16.5); Lymphocyte # 1.43 X10^3/ul (4.0); Lymphocyte % 23.4 % (19-41); Mean Corp Hgb Conc 32.4 g/dL (32-36); Mean Corpuscular Hgb 29.2 pg (27.0-32.0); Mean Corpuscular Volume 90.1 fL (80-94); Mean Platelet Vol. 11.9 fl (6.2-12.0); Monocyte# 0.43 X10^3/uL; NRBC Flagged by Analyzer 0 % (0-5); Neutrophil # 3.97 X10^3/uL (2.7-7.7); Neutrophil % 65.2 % (47-70); POSITIVE MORPHOLOGY YES; Platelet Count 144 K/mm3 (150-450); RBC Distribution Width CV 13.7 % (11.6-14.6); RBC Distribution Width SD 45.5 fl (35.1-43.9); Red Blood Count 4.83 M/mm3 (4.6-6.2); White Blood Count 6.1 K/mm3 (4.4-11.0)
[2019-08-22 10:48] LABS: Differential Indicated SCAN CRITERIA MET
[2019-08-22 10:55] LABS: BNP,B-Type NATRIURETIC PEPTIDE 803.3 pg/mL (0-100)
[2019-08-22 11:05] LABS: Vitamin D,25 Hydroxy 69.6 ng/mL (29.95-100.01)
[2019-08-22 11:12] LABS: Hemoglobin A1c 7.4 % (4.2-6.3)
[2019-08-22 11:15] LABS: ALB/GLOB Ratio 1.2 RATIO (0.9-2.4); AST(SGOT) 20 U/L (15-37); Alanine Aminotransfer ALT/SGPT 43 U/L (16-61); Albumin, Serum 3.8 g/dL (3.2-5.0); Alkaline Phosphatase 87 U/L (45-117); Anion Gap 7 (5-15); BUN 20 mg/dL (7-18); BUN/Creat Ratio 12.4 RATIO (10-20); Calcium,Total 9.2 mg/dL (8.5-10.1); Chloride 105 mmol/L (98-107); Cholesterol 137 mg/dL (200); Creatinine, Serum 1.61 mg/dL (0.70-1.30); EST Glomerular Filtration Rate 44 mL/min (>60); Est Glom Filt Rate - Afr Amer 53 mL/min (>60); Globulin 3.1 g/dL (2.2-4.2); Glucose 120 mg/dL (74-106); High Density Lipoprotein 36 mg/dL; Potassium 4.1 mmol/L (3.5-5.1); Protein, Total 6.9 g/dL (6.4-8.2); Sodium Level 141 mmol/L (136-145); Triglycerides 149 mg/dL; Very Low Density Lipoprotein 30 mg/dL (5-40)
== END ==
PROVIDERS: Family Provider Family Medicine; PCP Family Medicine; Referring Provider Family Medicine; Visit Provider Family Medicine
DX: E11.9 Type 2 diabetes mellitus without complications (principal); Z86.73 Personal history of transient ischemic attack (TIA), and cerebral infarction without residual deficits; I25.10 Atherosclerotic heart disease of native coronary artery without angina pectoris; E55.9 Vitamin D deficiency, unspecified; R06.02 Shortness of breath
CPT/HCPCS: 36415; 80053; 80061; 82306; 83036; 83880; 85025

== ENCOUNTER → 2019-10-03 10:00 | Outpatient (CLI) | payer MEDICARE, SELFPAY ==
[2019-06-01 13:00] VITALS: BMI 25.1
[2019-09-26 11:09] VITALS: BMI 24.9
--- NOTE | 2019-10-03 10:10 | MRI_ITS ---
STUDY: MRI LUMBAR SPINE WITHOUT CONTRAST REASON FOR EXAM: Male, 79 years old. Low back pain and right leg pain TECHNIQUE: Standardized fat and water weighted pulse sequences were obtained in the sagittal and axial planes. COMPARISON: Lumbar spine films February 09, 2019 FINDINGS: T12-L1: Normal endplates. Normal disc height, hydration and morphology. Normal bilateral facet joints. Normal central canal and bilateral lateral recesses. Normal bilateral intervertebral neural foramina. Normal lumbar lordosis. There is no substantial scoliosis. Normal conus medullaris that terminates at the L1-2: Normal endplates. Normal disc height, desiccation and normal morphology. Normal bilateral facet joints. Normal central canal and bilateral lateral recesses. Normal bilateral intervertebral neural foramina. L2-3: Normal endplates. Normal disc height, desiccation and minimal annular bulge.. Mild facet arthropathy.. Normal central canal and bilateral lateral recesses. Mild bilateral neural foraminal encroachment.. L3-4: Mild endplate spurring. Normal disc height, desiccation and mild annular bulge.. Mild facet arthropathy and thickening of ligamenta flava. Severe central canal bilateral recess and neuroforaminal stenosis exaggerated by shortened pedicles. L4-5: Mild endplate spurring.. Normal disc height, desiccation and minor bulging disc osteophyte complex.. Bilateral facet arthropathy and thickening of ligamenta flava.. Severe central canal bilateral recess and neural foraminal stenosis exaggerated by shortened pedicles. L5-S1: Normal endplates. Normal disc height, desiccation and minimal annular bulge.. Facet arthropathy and thickening of ligamenta flava.. Normal central canal and bilateral lateral recesses. Moderate bilateral neuroforaminal encroachment. Normal visualized sacral ala. Normal visualized paraspinous soft tissue structures. Findings are similar to that seen on prior study considering differences in imaging modalities MRI/Spine Lumbar (Routine) IMPRESSION: No evidence for acute fracture or other significant bony pathology.. Multilevel spinal stenosis secondary to disc disease and bony hypertrophy most severe at L3-4 and L4-5 Findings as above Electronically Signed: Kory Evans MD at 21:15 EST , Service support ,
== END ==
PROVIDERS: Family Provider Family Medicine; PCP Family Medicine; Referring Provider Anesthesiology Pain Medicine; Visit Provider Anesthesiology Pain Medicine
DX: M54.17 Radiculopathy, lumbosacral region (principal); M51.37 Other intervertebral disc degeneration, lumbosacral region; R29.898 Other symptoms and signs involving the musculoskeletal system
CPT/HCPCS: 72148

== ENCOUNTER → 2019-10-11 09:33 | Outpatient (CLI) | payer MEDICARE, SELFPAY ==
[2019-09-26 11:09] VITALS: BMI 24.9
--- NOTE | 2019-10-11 09:35 | ECHOD_ITS ---
Reason For Study: SOB on exertion, attn to RVSP/PAP Procedure This was a 2D Doppler, Color Flow transthoracic echocardiogram. Exam performed in department. Left Ventricle Normal LV size. Mild concentric left ventricular hypertrophy. The estimated ejection fraction is 50 %. Stage 3 diastolic dysfunction. No regional wall motion abnormalities noted. Right Ventricle Normal RV size. Normal systolic function. Atria Normal left atrium. Normal right atrium. Mitral Valve Bileaflet diffuse mitral valve thickening. Mild focal mitral valve calcification. Moderate (2+) eccentric mitral valve insufficiency. Tricuspid Valve Normal tricuspid valve. Mild to moderate (1-2+) tricuspid valve insufficiency. Pulmonary artery systolic pressure is 44 mmHg. Aortic Valve The aortic valve is not well visualized. Mild (1+) eccentric aortic valve insufficiency. Pulmonic Valve The pulmonic valve is not well visualized. Great Vessels Normal aortic root. The pulmonary artery is normal size. Normal inferior vena cava. Pericardium/Pleural No pericardial effusion. MMode/2D Measurements & Calculations LVIDd: 4.8 cm IVSd: 1.3 cm Ao root diam: 3.3 cm LVIDs: 3.5 cm LVPWd: 1.1 cm RVDd: 3.9 cm FS: 27.0 % LAV(MOD-bp): 59.5 ml LA A4 area: 18.1 cm2 LA dimension(2D): 4.6 cm LAV(MOD-bp) Indexed: 30.8 ml/m2 LAV(MOD-sp2): 66.4 ml LAV(MOD-sp4): 50.6 ml RA A4 area: 18.0 cm2 Time Measurements MV dec time: 0.18 sec Doppler Measurements & Calculations MV E max srinath: 143.3 cm/sec Lat Peak E' Srinath: 5.3 cm/sec Med Peak E' Srinath: 3.1 cm/sec MV A max srinath: 29.2 cm/sec E/E' lat: 26.9 E/E' med: 46.3 MV E/A: 4.9 Ao V2 max: 90.3 cm/sec AI max srinath: 339.1 cm/sec MR max srinath: 402.8 cm/sec Ao max P.3 mmHg AI max P.1 mmHg MR max P.9 mmHg AI dec slope: 187.1 cm/sec2 AI P1/2t: 530.8 msec PA V2 max: 62.9 cm/sec TR max srinath: 314.4 cm/sec TR max P.6 mmHg Interpretation Summary Normal LV size. Mild concentric left ventricular hypertrophy. The estimated ejection fraction is 50 %. Stage 3 diastolic dysfunction. Moderate (2+) eccentric mitral valve insufficiency. Mild to moderate (1-2+) tricuspid valve insufficiency. Mild (1+) eccentric aortic valve insufficiency. Ordering Physician: Abdoulaye Brock Physician: Abdoulaye Brock Performed By: Claudia Penny RDCS, RVT
== END ==
PROVIDERS: Family Provider Family Medicine; PCP Family Medicine; Referring Provider Family Medicine; Visit Provider Family Medicine
DX: R06.02 Shortness of breath (principal)
CPT/HCPCS: 93306

== ENCOUNTER → 2020-03-02 09:42 | Outpatient (CLI) | payer MEDICARE, SELFPAY ==
[2020-01-20 08:47] VITALS: BMI 25.2
--- NOTE | 2020-03-02 09:47 | ECHOD_ITS ---
Reason For Study: DYSPNEA/SOB Procedure This was a 2D Doppler, Color Flow transthoracic echocardiogram. Exam performed in department. Left Ventricle Normal LV size. Mild concentric left ventricular hypertrophy. Left ventricular systolic function is normal. The estimated ejection fraction is 45 %. Stage 3 diastolic dysfunction. No regional wall motion abnormalities noted. Right Ventricle Normal RV size. Normal systolic function. Atria The left atrium is mildly enlarged. Normal right atrium. Mitral Valve Mild focal mitral valve calcification, bileaflet. Moderate (2+) eccentric mitral valve insufficiency. Tricuspid Valve Normal tricuspid valve. Mild to moderate (1-2+) tricuspid valve insufficiency. Pulmonary artery systolic pressure is 44 mmHg. Mild pulmonary hypertension. Aortic Valve Trisinus/trileaflet aortic valve. Mild (1+) aortic valve insufficiency. Pulmonic Valve Normal pulmonic valve. Great Vessels Normal aortic root. The pulmonary artery is normal size. Normal inferior vena cava. Pericardium/Pleural No pericardial effusion. MMode/2D Measurements & Calculations LVIDd: 4.8 cm IVSd: 1.3 cm Ao root diam: 3.5 cm LVIDs: 3.6 cm LVPWd: 1.2 cm RVDd: 2.7 cm FS: 23.9 % LAV(MOD-bp): 83.2 ml LA A4 area: 22.0 cm2 LA dimension(2D): 4.0 cm LAV(MOD-bp) Indexed: 43.0 ml/m2 LAV(MOD-sp2): 83.4 ml LAV(MOD-sp4): 74.1 ml RA A4 area: 15.7 cm2 Time Measurements MV dec time: 0.17 sec Doppler Measurements & Calculations MV E max srinath: 146.1 cm/sec Lat Peak E' Srinath: 4.9 cm/sec Med Peak E' Srinath: 3.2 cm/sec MV A max srinath: 53.3 cm/sec E/E' lat: 29.5 E/E' med: 45.3 MV E/A: 2.7 Ao V2 max: 98.9 cm/sec AI max srinath: 324.1 cm/sec LV V1 max: 71.1 cm/sec Ao max P.9 mmHg AI max P.2 mmHg LV V1 max P.0 mmHg AI dec slope: 199.3 cm/sec2 AI P1/2t: 476.4 msec PA V2 max: 58.8 cm/sec TR max srinath: 305.7 cm/sec TR max P.4 mmHg Interpretation Summary Normal LV size. Mild concentric left ventricular hypertrophy. Left ventricular systolic function is normal. The estimated ejection fraction is 45 %. Stage 3 diastolic dysfunction. Pulmonary artery systolic pressure is 44 mmHg. Mild pulmonary hypertension. Ordering Physician: Jason Lemus Referring Physician: Abdoulaye Brock Performed By: Claudia Penny, MARI, RVT
--- OUTSIDE RECORDS SUMMARY | 2020-07-31 11:08 | XMS RPT_ITS | CCD ---
:1940 External Reference #:[id number] Author Organization [facility] Care Team Providers Name Role Phone MD Allan, S Unavailable Turner Elizabeth Unavailable Glenn Y Unavailable Elizabeth, Y Unavailable Elizabeth Y Unavailable Amy DUNLAP, Lyndsey Unavailable Unavailable JHOAN, H. Unavailable Unavailable JHOAN, H. Unavailable Unavailable JHOAN, H. Unavailable Unavailable JHOAN, H. Unavailable Unavailable JHOAN, H. Unavailable Unavailable JHOAN, H. Unavailable Unavailable TUAN Alves M Unavailable Medications Medication Name Sig Date Prescriber Location aspirin ASPIRIN EC 81 MG [facility] 02-05-2017 [facility] tablet by mouth Group (4 4642) daily ASPIRIN [id number] Belle Gonzalez RN atorvastatin LIPITOR 40 MG TABS One 02-05-2017 [facility] tablet by mouth daily Group (90966) every night ATORVASTATIN CALCIUM [id number] Belle Gonzalez RN furosemide LASIX 40 MG TABS One 08-20-2017 [facility] tablet by mouth daily Group (06558) FUROSEMIDE [id number] Zully Reyes RN glimepiride GLIMEPIRIDE 4 MG TABS 02-05-2017 [facility] tablet by mouth Group (4 4691) twice daily GLIMEPIRIDE [id number] Belle Gonzalez RN lisinopril LISINOPRIL 5 MG TABS 03-11-2017 Jason Lemus MD [facility] One tablet by mouth Group (4 4686) daily LISINOPRIL [id number] Jason Lemus MD metoprolol METOPROLOL TARTRATE 50 02-05-2017 [facility] MG TABS One tablet by Group (35816) mouth twice daily METOPROLOL TARTRATE [id number] Belle Gonzalez RN METOPROLOL TARTRATE 25 MG TABS 02-05-2017 Jason Lemus MD [facility] One tablet by mouth twice (56791 ) daily METOPROLOL TARTRATE [id number] Jason Lemus MD warfarin COUMADIN 2.5 MG TABS One 02-05-2017 - 03-11-2017 [facility] tablet by mouth every night (12341) and as directed WARFARIN SODIUM [id number] Jason Lemus MD Problems Active Problems Category Problem Name Status Date Location Acute myocardial Non-ST elevation Active 02-05-2017 - [facility] infarction (NSTEMI) myocardial Group (4 4691) infarction Cardiac dysrhythmias Atrial fibrillation Active 02-03-2017 - [facility] (32329) 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; 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 Coronary atherosclerosis 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 - [facility] and other heart disease disease of knik Group (27357) coronary artery without angina pectoris Diabetes mellitus Type 2 diabetes mellitus Active 02-05-2017 - [facility] without complication without complication Group (30358) Disorders of lipid Hyperlipidemia Active 02-05-2017 - [facility] metabolism Group (22815) Essential hypertension Hypertensive disorder Active 7 - [facility] (12863) Unclassified Long-term drug therapy Active 02-05-2017 - [facility] (26131) Unclassified Warfarin therapy started Active 02-03-2017 - [facility] (18843) Past or Other Problems Category Problem Name Status Date Location Nonspecific chest pain Chest pain Completed 03-11-2017 - [facility] (45797) Other aftercare Other nursing home Completed 02-03-2017 - [facility] (current) drug (07860) therapy Other lower respiratory Dyspnea Completed 03-11-2017 - [facility] disease (41664) Other lower respiratory Dyspnea on exertion Completed 03-11-2017 - [facility] disease (03867) Results Result Name Value Range Unit Interpretation Flag Date Location lipid on 2018-02-24 Cholesterol 137 131-200 mg/dL Normal 02-24-2018 [facility] ([place]) (26491) Comment: Result Comment: Cholesterol Reference Interval:Less than 200 Cjwkxvtdx312-455 Borderline high pgjh886 and above High risk Performed By: #### LIPID, CM P, GFR ####[address] [place], [place] [address] HDL Cholesterol 35 35-90 mg/dL Normal 02-24-2018 [facility] ([place]) (54891) Comment: Result Comment: HDL Referenc e Interval:Less than 40 Low - high risk60 or above Optimal/lowers risk Performed By: #### LIPID, CM P, GFR ####[address] [place], [place] [address] LDL Cholesterol 75 0-130 mg/dL Normal 02-24-2018 [facility] ([place]) (00559) Comment: Result Comment: LDL is a christine culated result and requires a 12-hr fast.LDL Reference Interval:Less than 100 Bmilgqb279-061 Near or above ibqmfxq512-769 Borderline high zjza054-008 High gxog086 and above Very high risk Performed By: #### LIPID, CM P, GFR ####[address] [place], [place] [address] Triglyceride 135 40-150 mg/dL Normal 02-24-2018 [facility] ([place]) (77384) Comment: Result Comment: Triglyceride Reference Interval:Less than 150 Otdogf687-082 Borderline high slnk654-010 High rkvn575 or higher Very high risk Performed By: #### LIPID, CM P, GFR ####[address] [place], [place] [address] cmp on 2018-02-24 Alanine aminotransferase (ALT) 18 10-35 IU/L Normal 02-24-2018 [facility] ([place]) (34439) Comment: Performed By: #### LIPID, CM P, GFR ####[address] [place], [place] [address] Albumin 4.2 3.4-4.8 G/dL Normal 02-24-2018 [facility]) (69006) Comment: Performed By: #### LIPID, CM P, GFR ####[address] [place], [place] [address] Albumin/Globulin Ratio 1.8 1.1-2.5 ratio Normal 018 On license of [facility]) (0000 0) Comment: Performed By: #### LIPID, CM P, GFR ####[address] [place], [place] [address] Alk Phos 77 40-135 IU/L Normal 02-24-2018 [facility]) (10395) Comment: Performed By: #### LIPID, CM P, GFR ####[address] [place], [place] [address] Aspartate aminotransferase 18 10-40 IU/L Normal [facility] (67702) Comment: Performed By: #### LIPID, CM P, GFR ####[address] [place], [place] [address] Bili Total 0.7 0.2-1.0 mg/dL Normal 02-24-2018 On license of [facility]) (14048) Comment: Performed By: #### LIPID, CM P, GFR ####[address] [place], [place] [address] BUN/Creatinine Ratio 15 7-27 ratio Normal 8 On license of [facility]) (98396) Comment: Performed By: #### LIPID, CM P, GFR ####[address] [place], [place] [address] Calcium 9.6 8.4-10.2 mg/dL Normal 02-24-2018 [facility]) (38068) Comment: Performed By: #### LIPID, CM P, GFR ####[address] [place], [place] [address] Chloride 106 98-107 mEq/L Normal 02-24-2018 [facility] ([place]) (47930) Comment: Performed By: #### LIPID, CM P, GFR ####[address] [place], [place] [address] CO2 26 23-31 mEq/L Normal 02-24-2018 [facility] ([place]) (30689) Comment: Performed By: #### LIPID, CM P, GFR ####[address] [place], [place] [address] Creatinine 1.7 0.6-1.2 mg/dL High 02-24-2018 [facility] ([place]) (69207) Comment: Performed By: #### LIPID, CM P, GFR ####[address] [place], [place] [address] Electrolyte Balance 9.0 mEq/L Normal 02-24-2018 [facility] ([place]) (15432) Comment: Performed By: #### LIPID, CM P, GFR ####[address] [place], [place] [address] Globulin 2.4 G/dL Normal 02-24-2018 [facility] ([place]) (04379) Comment: Performed By: #### LIPID, CM P, GFR ####[address] [place], [place] [address] Glucose mass conc 93 83-110 mg/dL Normal 02-24-2018 [facility] ([place]) (37852) Comment: Performed By: #### LIPID, CM P, GFR ####[address] [place], [place] [address] Potassium molar conc 4.7 3.5-5.1 mEq/L Normal 8 [facility] ([place]) (0000 0) Comment: Performed By: #### LIPID, CM P, GFR ####[address] [place], [place] [address] Protein 6.6 6.0-8.3 G/dL Normal 02-24-2018 [facility] ([place]) (48464) Comment: Performed By: #### LIPID, CM P, GFR ####[address] [place], [place] [address] Sodium 141 136-146 mEq/L Normal 02-24-2018 [facility] ([place]) (52641) Comment: Performed By: #### LIPID, CM P, GFR ####[address] [place], [place] [address] Urea nitrogen 25.3 7.0-18.0 mg/dL High 02-24-2018 [facility] ([place]) (90919) Comment: Performed By: #### LIPID, CM P, GFR ####[address] [place], [place] [address] .gfr on 2018-02-24 eGFR (non-black) 38 ml/min/1.73sqm Normal 02-25-20 18 [facility] ([place]) (14622) Comment: Result Comment: GFR Populati on mean for , Non- Americans Ages 20-29 = 116 m L/min/1.73 sq.m. Ages 30-39 = 107 mL/min/1.73 sq.m. Ages 40-49 = 99 mL/min /1.73 sq.m. Ages 50-59 = 93 mL/min/1.73 sq.m. Ages 60-69 = 85 mL/min/1.73 sq.m. Ages 70+ = 75 mL/min/1.73 sq.m.Chronic Kidney Disease: Less than 60 mL/min/1.73 square metersEnd Stage Renal Disease: Less than 15 mL/min /1.73 square meters Performed By: #### LIPID, CM P, GFR ####[address] [place], [place] [address] eGFR (non-black) 46 ml/min/1.73sqm Normal 02-25-20 18 [facility] ([place]) (72314) Comment: Result Comment: GFR Populati on mean for , Non- Americans Ages 20-29 = 116 m L/min/1.73 sq.m. Ages 30-39 = 107 mL/min/1.73 sq.m. Ages 40-49 = 99 mL/min /1.73 sq.m. Ages 50-59 = 93 mL/min/1.73 sq.m. Ages 60-69 = 85 mL/min/1.73 sq.m. Ages 70+ = 75 mL/min/1.73 sq.m.Chronic Kidney Disease: Less than 60 mL/min/1.73 square metersEnd Stage Renal Disease: Less than 15 mL/min /1.73 square meters Performed By: #### LIPID, CM P, GFR ####[address] [place], [place] [address] lipid on 2017-09-08 Cholesterol 111 131-200 mg/dL Low 09-08-2017 [facility] ([place]) (40001) Comment: Result Comment: Cholesterol Reference Interval:Less than 200 Pssojbume330-475 Borderline high kpys668 and above High risk Performed By: #### LIPID, CM P, GFR ####[address] [place], [place] [address] HDL Cholesterol 32 35-90 mg/dL Low 09-08-2017 [facility] ([place]) (83256) Comment: Result Comment: HDL Referenc e Interval:Less than 40 Low - high risk60 or above Optimal/lowers risk Performed By: #### LIPID, CM P, GFR ####[address] [place], [place] [address] LDL Cholesterol 57 0-130 mg/dL Normal 09-08-2017 [facility] ([place]) (77169) Comment: Result Comment: LDL is a christine culated result and requires a 12-hr fast.LDL Reference Interval:Less than 100 Qdocbgj433-670 Near or above cfjynva977-486 Borderline high esoi141-264 High nfif596 and above Very high risk Performed By: #### LIPID, CM P, GFR ####[address] [place], [place] [address] Triglyceride 108 40-150 mg/dL Normal 09-08-2017 [facility] ([place]) (29796) Comment: Result Comment: Triglyceride Reference Interval:Less than 150 Iflrxk366-819 Borderline high msqu279-825 High dvcp158 or higher Very high risk Performed By: #### LIPID, CM P, GFR ####[address] [place], [place] [address] cmp on 2017-09-08 Alanine aminotransferase (ALT) 11 10-35 IU/L Normal 09-08-2017 [facility] ([place]) (26479) Comment: Performed By: #### LIPID, CM P, GFR ####[address] [place], [place] [address] Albumin 4.1 3.4-4.8 G/dL Normal 09-08-2017 [facility]) (34048) Comment: Performed By: #### LIPID, CM P, GFR ####[address] [place], [place] [address] Albumin/Globulin Ratio 1.6 1.1-2.5 ratio Normal 017 [facility] ([place]) (0000 0) Comment: Performed By: #### LIPID, CM P, GFR ####[address] [place], [place] [address] Alk Phos 87 40-135 IU/L Normal 09-08-2017 [facility]) (02404) Comment: Performed By: #### LIPID, CM P, GFR ####[address] [place], [place] [address] Aspartate aminotransferase 14 10-40 IU/L Normal [facility] ([facility]) (85717) Comment: Performed By: #### LIPID, CM P, GFR ####[address] [place], [place] [address] Bili Total 0.5 0.2-1.0 mg/dL Normal 09-08-2017 On license of [facility]) (23523) Comment: Performed By: #### LIPID, CM P, GFR ####[address] [place], [place] [address] BUN/Creatinine Ratio 13 7-27 ratio Normal 7 [facility] ([place]) (69656) Comment: Performed By: #### LIPID, CM P, GFR ####[address] [place], [place] [address] Calcium 9.3 8.4-10.2 mg/dL Normal 09-08-2017 [facility]) (81140) Comment: Performed By: #### LIPID, CM P, GFR ####[address] [place], [place] [address] Chloride 107 98-107 mEq/L Normal 09-08-2017 [facility] ([place]) (67702) Comment: Performed By: #### LIPID, CM P, GFR ####[address] [place], [place] [address] CO2 27 23-31 mEq/L Normal 09-08-2017 [facility] ([place]) (51648) Comment: Performed By: #### LIPID, CM P, GFR ####[address] [place], [place] [address] Creatinine 1.6 0.6-1.2 mg/dL High 09-08-2017 [facility] ([place]) (31917) Comment: Performed By: #### LIPID, CM P, GFR ####[address] [place], [place] [address] Electrolyte Balance 7.0 mEq/L Normal 09-08-2017 [facility] ([place]) (84406) Comment: Performed By: #### LIPID, CM P, GFR ####[address] [place], [place] [address] Globulin 2.5 G/dL Normal 09-08-2017 [facility] ([place]) (09311) Comment: Performed By: #### LIPID, CM P, GFR ####[address] [place], [place] [address] Glucose mass conc 133 83-110 mg/dL High 09-08-2017 [facility] ([place]) (48468) Comment: Performed By: #### LIPID, CM P, GFR ####[address] [place], [place] [address] Potassium molar conc 4.5 3.5-5.1 mEq/L Normal 7 [facility] ([place]) (0000 0) Comment: Performed By: #### LIPID, CM P, GFR ####[address] [place], [place] [address] Protein 6.6 6.0-8.3 G/dL Normal 09-08-2017 [facility] ([place]) (26836) Comment: Performed By: #### LIPID, CM P, GFR ####[address] [place], [place] [address] Sodium 141 136-146 mEq/L Normal 09-08-2017 [facility] ([place]) (92053) Comment: Performed By: #### LIPID, CM P, GFR ####[address] [place], [place] [address] Urea nitrogen 21.1 7.0-18.0 mg/dL High 09-08-2017 [facility] ([place]) (45996) Comment: Performed By: #### LIPID, CM P, GFR ####[address] [place], [place] [address] .gfr on 2017-09-08 eGFR (non-black) 42 ml/min/1.73sqm Normal 09-08-20 17 [facility] ([place]) (56463) Comment: Result Comment: GFR Populati on mean for , Non- Americans Ages 20-29 = 116 m L/min/1.73 sq.m. Ages 30-39 = 107 mL/min/1.73 sq.m. Ages 40-49 = 99 mL/min /1.73 sq.m. Ages 50-59 = 93 mL/min/1.73 sq.m. Ages 60-69 = 85 mL/min/1.73 sq.m. Ages 70+ = 75 mL/min/1.73 sq.m.Chronic Kidney Disease: Less than 60 mL/min/1.73 square metersEnd Stage Renal Disease: Less than 15 mL/min /1.73 square meters Performed By: #### LIPID, CM P, GFR ####[address] [place], [place] [address] eGFR (non-black) 51 ml/min/1.73sqm Normal 09-08-20 17 [facility] ([place]) (04870) Comment: Result Comment: GFR Populati on mean for , Non- Americans Ages 20-29 = 116 m L/min/1.73 sq.m. Ages 30-39 = 107 mL/min/1.73 sq.m. Ages 40-49 = 99 mL/min /1.73 sq.m. Ages 50-59 = 93 mL/min/1.73 sq.m. Ages 60-69 = 85 mL/min/1.73 sq.m. Ages 70+ = 75 mL/min/1.73 sq.m.Chronic Kidney Disease: Less than 60 mL/min/1.73 square metersEnd Stage Renal Disease: Less than 15 mL/min /1.73 square meters Performed By: #### LIPID, CM P, GFR ####[address] [place], [place] [address] office visit on 04-28-02 Documentation of Done Invalid Interpretation 08-20-2017 - [facility] current medications Code 08-20-2017 Group (87716) (procedure) clinical lists update on 2017-08-07 Left ventricular 53 % Invalid Interpretation 08-07-2017 - [facility] Ejection fraction Code 08-07-2017 [facility] (22853) lipid on 2017-05-07 Cholesterol 133 131-200 mg/dL Normal 05-07-2017 [facility] ([place]) (64127) Comment: Result Comment: Cholesterol Reference Interval:Less than 200 Wkbcaugpy231-001 Borderline high gsef651 and above High risk Performed By: #### LIPID, CM P, GFR ####[address] [place], [place] [address] HDL Cholesterol 34 35-90 mg/dL Low 05-07-2017 [facility] ([place]) (31339) Comment: Result Comment: HDL Referenc e Interval:Less than 40 Low - high risk60 or above Optimal/lowers risk Performed By: #### LIPID, CM P, GFR ####[address] [place], [place] [address] LDL Cholesterol 71 0-130 mg/dL Normal 05-07-2017 [facility] ([place]) (46459) Comment: Result Comment: LDL is a christine culated result and requires a 12-hr fast.LDL Reference Interval:Less than 100 Nvfgtjd185-096 Near or above nkurclb607-747 Borderline high tqsy671-910 High kbpd926 and above Very high risk Performed By: #### LIPID, CM P, GFR ####[address] [place], [place] [address] Triglyceride 141 40-150 mg/dL Normal 05-07-2017 [facility] ([place]) (42910) Comment: Result Comment: Triglyceride Reference Interval:Less than 150 Kgnmyx698-589 Borderline high wvks109-614 High mwdr001 or higher Very high risk Performed By: #### LIPID, CM P, GFR ####[address] [place], [place] [address] gfr on 2017-05-07 eGFR (non-black) 46 ml/min/1.73sqm Normal 05-07-[address] [place] [address] ([place]) (27300) Comment: Result Comment: GFR Populati on mean for , Non- Americans Ages 20-29 = 116 m L/min/1.73 sq.m. Ages 30-39 = 107 mL/min/1.73 sq.m. Ages 40-49 = 99 mL/min /1.73 sq.m. Ages 50-59 = 93 mL/min/1.73 sq.m. Ages 60-69 = 85 mL/min/1.73 sq.m. Ages 70+ = 75 mL/min/1.73 sq.m.Chronic Kidney Disease: Less than 60 mL/min/1.73 square metersEnd Stage Renal Disease: Less than 15 mL/min /1.73 square meters Performed By: #### LIPID, CM P, GFR ####[address] [place], [place] [address] eGFR (non-black) 56 ml/min/1.73sqm Normal 05-07-20 17 [facility] ([place]) (80294) Comment: Result Comment: GFR Populati on mean for , Non- Americans Ages 20-29 = 116 m L/min/1.73 sq.m. Ages 30-39 = 107 mL/min/1.73 sq.m. Ages 40-49 = 99 mL/min /1.73 sq.m. Ages 50-59 = 93 mL/min/1.73 sq.m. Ages 60-69 = 85 mL/min/1.73 sq.m. Ages 70+ = 75 mL/min/1.73 sq.m.Chronic Kidney Disease: Less than 60 mL/min/1.73 square metersEnd Stage Renal Disease: Less than 15 mL/min /1.73 square meters Performed By: #### LIPID, CM P, GFR ####[address] [place], [place] [address] cmp on 2017-05-07 Alanine aminotransferase (ALT) 13 10-35 ZZ Normal 05-07-2017 [facility] ([place]) (16022) Comment: Performed By: #### LIPID, CM P, GFR ####[address] [place], [place] [address] Albumin 4.5 3.4-4.8 G/dL Normal 05-07-2017 [facility] ([place]) (02739) Comment: Performed By: #### LIPID, CM P, GFR ####[address] [place], [place] [address] Albumin/Globulin Ratio 1.7 1.1-2.5 ratio Normal 017 [facility] ([place]) (0000 0) Comment: Performed By: #### LIPID, CM P, GFR ####[address] [place], [place] [address] Alk Phos 91 40-135 ZZ Normal 05-07-2017 [facility] ([place]) (56225) Comment: Performed By: #### LIPID, CM P, GFR ####[address] [place], [place] [address] Aspartate aminotransferase 14 10-40 ZZ Normal [facility] ([facility] ([place]) (70213) Comment: Performed By: #### LIPID, CM P, GFR ####[address] [place], [place] [address] Bili Total 0.6 0.2-1.0 mg/dL Normal 05-07-2017 [facility] ([place]) (79060) Comment: Performed By: #### LIPID, CM P, GFR ####[address] [place], [place] [address] BUN/Creatinine Ratio 13 7-27 ratio Normal 201 7 [facility] ([place]) (20643) Comment: Performed By: #### LIPID, CM P, GFR ####[address] [place], [place] [address] Calcium 9.6 8.4-10.2 mg/dL Normal 05-07-2017 [facility] ([place]) (64089) Comment: Performed By: #### LIPID, CM P, GFR ####[address] [place], [place] [address] Chloride 104 98-107 mEq/L Normal 05-07-2017 [facility] ([place]) (02146) Comment: Performed By: #### LIPID, CM P, GFR ####[address] [place], [place] [address] CO2 26 23-31 mEq/L Normal 05-07-2017 [facility] ([place]) (96826) Comment: Performed By: #### LIPID, CM P, GFR ####[address] [place], [place] [address] Creatinine 1.5 0.6-1.2 mg/dL High 05-07-2017 [facility] ([place]) (23785) Comment: Performed By: #### LIPID, CM P, GFR ####[address] [place], [place] [address] Electrolyte Balance 10.0 mEq/L Normal 05-07-2017 [facility] ([place]) (72135) Comment: Performed By: #### LIPID, CM P, GFR ####[address] [place], [place] [address] Globulin 2.6 G/dL Normal 05-07-2017 [facility] ([place]) (00639) Comment: Performed By: #### LIPID, CM P, GFR ####[address] [place], [place] [address] Glucose mass conc 145 83-110 mg/dL High 05-07-2017 [facility] ([place]) (45018) Comment: Performed By: #### LIPID, CM P, GFR ####[address] [place], [place] [address] Potassium molar conc 4.8 3.5-5.1 mEq/L Normal 7 [facility] ([place]) (0000 0) Comment: Performed By: #### LIPID, CM P, GFR ####[address] [place], [place] [address] Protein 7.1 6.0-8.3 G/dL Normal 05-07-2017 [facility]) (96109) Comment: Performed By: #### LIPID, CM P, GFR ####[address] [place], [place] [address] Sodium 140 136-146 mEq/L Normal 05-07-2017 [facility]) (41757) Comment: Performed By: #### LIPID, CM P, GFR ####[address] [place], [place] [address] Urea nitrogen 19.5 7.0-18.0 mg/dL High 05-07-2017 [facility] ([place]) (35547) Comment: Performed By: #### LIPID, CM P, GFR ####[address] [place], [place] [address] append: cr referral on 2017-05-04 Clinical [id number]^03/11/2017 Invalid 05-04 - [facility] Interpretation 05-04-2017 [facility] report (record Code Group artifact) ([id number]) replaced document: midmark ecg observati ons on 2017-03-11 BUN (urea nitrogen) Sinus Bradycardia Invalid - [place] -Incomplete left Interpretation 03-11-20 17 Heart bundle branch Code Group block. -Poor (57476) R-wave progression -may be secondary to conduction defect consider old anterior infarct. - Nonspecific T-abnormality. ABNORMAL EKG QRS axis 28 deg Invalid 03-11-2017 [facility] Interpretation 03-11-2017 Hear [facility] Code [facility] ([id number]) GE use only - for 473 ms Invalid 03-11-2017 - [facility] import when Interpretation Heart terms are not Code Group otherwise specified (53584) P [place] 50 deg Invalid 03-11-2017 - [place] Interpretation 03-11-2017 Hear [facility] (76628) P wave axis, 50 deg Invalid 03-11-2017 - [facility] electrocardiogram Interpretation 017 [facility] Code [facility] ([id number]) IN Interval 158 ms Invalid 03-11-2017 - [place] Interpretation 03-11-2017 [facility] (85430) IN interval, 158 ms Invalid 03-11-2017 [facility] electrocardiogram Interpretation 017 [facility] ([id number]) Protein mass conc Sinus Bradycardia Invalid 02-17 - [place] -Incomplete left Interpretation 03-11-20 Heart bundle branch Code Group block. -Poor (51814) R-wave progression -may be secondary to conduction defect consider old anterior infarct. - Nonspecific T-abnormality. ABNORMAL Pulse (Heart Rate) 58 BPM /min Invalid 03-11-2017 - [place] Interpretation 03-11-2017 Hear t [facility] ([id number]) QRS axis, 28 deg Invalid 03-11-2017 - [facility] electrocardiogram Interpretation 017 [facility] Code [facility] ([id number]) QRS Duration 116 ms Invalid 03-11-2017 - [facility] Interpretation 03-11-2017 [facility] (49419) QRS duration, 116 ms Invalid 03-11-2017 - [facility] electro[facility]ogram Interpretation 017 [facility] (07751) QT Interval new path ms Invalid 03-11-2017 - [facility] Interpretation 03-11-2017 [facility] (01492) QT interval, new path ms Invalid 03-11-2017 - [place] electro[facility]ogram Interpretation 017 [facility] (05138) QTc [place] 473 ms Invalid 03-11-2017 - [place] [facility] Interpretation 03-11-2017 [facility] ([id number]) T [place] -28 deg Invalid 03-11-2017 - [facility] Interpretation 03-11-2017 Hear [facility] (13440) T wave axis, -28 deg Invalid 03-11-2017 [facility] electro[facility]ogram Interpretation 017 [facility] Code [facility] ([id number]) office visit on 04-22-24 Documentation of Done Invalid Interpretation 03-11-2017 - [facility] current medications Code 03-11-2017 Group ([id number]) (procedure) Fall risk assessment Yes Invalid Interpretat ion 03-11-2017 - [facility] Code 03-11-2017 Group ([id number]) Protein mass conc Done Invalid Interpretation 03-11-2017 - [facility] Code 03-11-2017 Group ([id number]) clinical lists update: preload on 2017-02-05 Tobacco smoking Never smoker Invalid Interpretatio n 02-05-2017 - [facility] status NHIS Code 02-05-2017 Group ( [id number]) Tobacco use Never smoker Invalid Interpretation - [facility] CPHS Code 02-05-2017 Group ([id number]) lab report: prothrombin time w/inr on 2017-02-04 Coagulation tissue 20.0 SECONDS 11.7-14.9 High 02-05-20 17 - [facility] factor induced in 02-04-2017 [facility] ([id number]) platelet poor plasma coumadin management: warfarin calc on 2017-02-04 Coagulation tissue 20.0 s Invalid 02-04-2017 - [facility] induced in Interpretation Code [facility] platelet poor ([id number] ) plasma INR Coag RelTime 1.8 {INR} Invalid 02-04-2017 - [facility] (PPP) Interpretation Code 02-04-2017 [facility] ([id number]) INR in blood by 1.8 {INR} Invalid 02-04-2017 - [facility] Interpretation Code 02-05-20 17 [facility] ([id number]) INR in blood by 2 to 3 Invalid 02-04-2017 - [facility] Interpretation Code 02-05-20 17 [facility] ([id number]) INR in blood by Hospital lab Invalid 02-04-2017 - [facility] Interpretation Code 02-05-20 17 [facility] ([id number]) international 2 to 3 Invalid 02-04-2017 - [facility] normalized ratio Interpretation Code [facility] (INR) range ([id number]) Vital Signs Vital Sign Description Value / Unit Date Location The following section is limited to 5 en tries per type and includes entries from the following time range: 20170311 - [id number] 2. BMI (Body Mass Index) 24.81 kg/m2 08-20-2017 - 08-20-2017 [facility] ([id number]) BMI (Body Mass Index) 26.47 kg/m2 03-11-2017 - 03-11-2017 [facility] ([id number]) BP Diastolic 60 mm[Hg] 08-20-2017 - 08-20-2017 [facility] ([id number]) BP Diastolic 60 mm[Hg] 03-11-2017 - 03-11-2017 [facility] ([id number]) BP Systolic 104 mm[Hg] 08-20-2017 - 08-20-2017 [facility] ([id number]) BP Systolic 120 mm[Hg] 03-11-2017 - 03-11-2017 [facility] ([id number]) Heart rate 58 /min 03-11-2017 - 03-11-2017 [facility] ([id number]) Height 176.53 cm 08-20-2017 - 08-20-2017 [facility] ([id number]) Height 176.53 cm 03-11-2017 - 03-11-2017 [facility] ([id number]) Pulse (Heart Rate) 68 /min 08-20-2017 - 08-20-2017 [facility] ([id number]) Pulse (Heart Rate) 64 /min 03-11-2017 - 03-11-2017 [facility] ([id number]) Respiratory Rate 28 /min 03-11-2017 - 03-11-2017 [facility] ([id number]) Weight 77.34 kg 08-20-2017 - 08-20-2017 [facility] ([id number]) Weight 82.51 kg 03-11-2017 - 03-11-2017 [facility] ([id number]) Encounters Date Type Reason Provider Location 02-24-2018 - Ambulatory YUNG Willem JHOAN Facility:[facility] 03-01-2018 Y[facility] STAPLES [facility] 09-08-2017 - Ambulatory YUNG Willem STAPLES Facility:[facility] 09-13-2017 YUNG Willem [facility] 05-07-2017 Ambulatory Type 2 diabetes [facility] Facility :B mellitus without YNUG STAPLES complications Procedures Procedure Name Date Provider Location Follow Up Appt 6 months 08-20-2017 - Jason Lemus MD [facility] 08-20-2017 ([id number]) [facility] 08-20-2017 - Jason Lemus MD [facility] 08-20-2017 ([id number]) Follow Up Appt 6 months 03-11-2017 - MD [facility] 08-20-2017 ([id number]) MMM 03-11-2017 - MD [facility] 08-20-2017 ([id number]) INR in Platelet poor 02-03-2017 - [facility] plasma by Coagulation 02-04-2017 ([id number]) assay Coagulation factor 02-03-2017 - [facility] induced.INR assay in 02-04-2017 ([id number]) platelet poor plasma Plan of Treatment Plan Description Date Location Appointment Appointment 03-09-2018 - [facility] 03-09-2018 ([id number]) Follow Up Appt 6 months Follow Up Appt 6 months 08-20-2017 - [facility] 08-20-2017 ([id number]) R R 08-20-2017 - [facility] 08-20-2017 ([id number]) Appointment Appointment 08-20-2017 - [facility] 08-20-2017 ([id number]) Appointment Appointment 08-11-2017 - [facility] 08-11-2017 ([id number]) Appointment Appointment 08-11-2017 - [facility] 08-11-2017 ([id number]) Cardiac Rehab Rehab Cardiac Rehab Rehab 03-11-2017 - [facility], [facility], 17605-04-2017 ([id number]) [place], [place], [id number] EKG (In office) EKG (In office) 03-11-2017 - [facility] 03-11-2017 ([id number]) Follow Up Appt 6 months Follow Up Appt 6 months 03-11-2017 - [facility] 08-20-2017 ([id number]) [facility] 03-11-2017 - [facility] 08-20-2017 ([id number]) Cardiac Rehab Rehab no information 03-11-2017 - [facility], 1761 05-04-2017 ([id number]) [place], [address] EKG (In office) EKG (In office) 03-11-2017 - [facility] 03-11-2017 ([id number]) Follow Up Appt 6 months Follow Up Appt 6 months 03-11-2017 - [facility] 03-11-2017 ([id number]) MMM MMM 03-11-2017 - [facility] 03-11-2017 ([id number]) *PT/INR - Standing Order *PT/INR - Standing Order 02-03-2017 - [facility] 02-04-2017 ([id number]) *PT/INR - Standing Order *PT/INR - Standing Order 02-03-2017 - [facility] 02-04-2017 ([id number]) Payers Payer Name Policy Number Renetta GILBERT [id number] [employer] Found [employer] ([place]) ([id number]) Summary Purpose Family History No Family History Records Found Advance Directives No Advanced Directives Records Found Additional Source Comments FOR RECORDS PERTAINING TO PATIENTS WHO ARE OR HAVE BEEN ENROLLED IN A CHEMICAL DEPENDENCY/SUBSTANCE ABUSE PROGRAM, SOME INFORMATION MAY BE OMITTED. This clinical summary was aggregated from multiple sources. Caution should be exercised in using it in the provision of clinical care. This summary normalizes information from multiple sources, and as a consequence, information in this document may materially changethe coding, format and clinical context of patient data. In addition, data may be omittedin some cases. CLINICAL DECISIONS SHOULD BE BASED ON THE PRIMARY CLINICAL RECORDS. [facility] provides no warranty or guarantee of the accuracy or completeness of information in this document. UNRECOGNIZED CONTENT PROVIDED BELOW FOR UNRECOGNIZED SECTION No Status Records Found UNRECOGNIZED CONTENT PROVIDED BELOW FOR UNRECOGNIZED SECTION INFORMATION SOURCE DATE CREATED AUTHOR AUTHOR'S ORGANIZATIO N 04/07/2018 [employer] ([place])
== END ==
PROVIDERS: PCP Family Medicine; Referring Provider Internal Medicine Cardiovascular Disease; Visit Provider Internal Medicine Cardiovascular Disease
DX: I25.2 Old myocardial infarction (principal)
CPT/HCPCS: 93306

== ENCOUNTER → 2020-03-13 10:26 | Outpatient (CLI) | payer MEDICARE, SELFPAY ==
[2020-01-20 08:47] VITALS: BMI 25.2
[2020-03-13 11:22] LABS: Hemoglobin 14.5 g/dL (13.0-16.5); Mean Corpuscular Hgb 29.2 pg (27.0-32.0); Mean Corpuscular Volume 88.7 fL (80-94); Mean Platelet Vol. 12.6 fl (6.2-12.0); Platelet Count 188 K/mm3 (150-450); RBC Distribution Width CV 12.7 % (11.6-14.6); Red Blood Count 4.96 M/mm3 (4.6-6.2); White Blood Count 11.8 K/mm3 (4.4-11.0)
[2020-03-13 11:48] LABS: BNP,B-Type NATRIURETIC PEPTIDE 1032.1 pg/mL (0-100)
[2020-03-13 11:57] LABS: Anion Gap 7 (5-15); BUN 32 mg/dL (7-18); BUN/Creat Ratio 15.6 RATIO (10-20); Calcium,Total 9.1 mg/dL (8.5-10.1); Chloride 96 mmol/L (98-107); Creatinine, Serum 2.05 mg/dL (0.70-1.30); EST Glomerular Filtration Rate 33 mL/min (>60); Est Glom Filt Rate - Afr Amer 40 mL/min (>60); Glucose 329 mg/dL (74-106); Potassium 3.4 mmol/L (3.5-5.1); Sodium Level 135 mmol/L (136-145); Thyroid Stim Hormone (TSH) 0.78 uIU/mL (0.358-3.74)
--- OUTSIDE RECORDS SUMMARY | 2020-07-31 17:03 | XMS RPT_ITS | CCD ---
:1940 External Reference #:[id number] Author Organization [facility] Care Team Providers Name Role Phone [...] Prescriber Location aspirin ASPIRIN EC 81 MG [facility] 02-05-2017 [facility] tablet by mouth Group (4 4606) daily ASPIRIN [id number] Belle Gonzalez RN atorvastatin LIPITOR 40 MG TABS One 02-05-2017 [facility] tablet by mouth daily Group (97093) every night ATORVASTATIN CALCIUM [id number] Belle Gonzalez RN furosemide LASIX 40 MG TABS One 08-20-2017 [facility] tablet by mouth daily Group (86903) FUROSEMIDE [id number] Zully Reyes RN glimepiride GLIMEPIRIDE 4 MG TABS 02-05-2017 [facility] tablet by mouth Group (4 4691) twice daily GLIMEPIRIDE [id number] Belle Gonzalez RN lisinopril LISINOPRIL 5 MG TABS 03-11-2017 Jason Lemus MD [facility] One tablet by mouth Group (4 4657) daily LISINOPRIL [id number] Jason Lemus MD metoprolol METOPROLOL TARTRATE 50 02-05-2017 [facility] MG TABS One tablet by Group (99826) mouth twice daily METOPROLOL TARTRATE [id number] Belle Gonzalez RN METOPROLOL TARTRATE 25 MG TABS 02-05-2017 Jason Lemus MD [facility] One tablet by mouth twice (61998 ) daily METOPROLOL TARTRATE [id number] Jason Lemus MD warfarin COUMADIN 2.5 MG TABS One 02-05-2017 - 03-11-2017 [facility] tablet by mouth every night (22693) and as directed WARFARIN SODIUM [id number] Jason Lemus MD Problems Active Problems Category Problem Name Status Date Location Acute myocardial Non-ST elevation Active 02-05-2017 - [facility] infarction (NSTEMI) myocardial Group (4 4691) infarction Cardiac dysrhythmias Atrial fibrillation Active 02-03-2017 - [facility] (36801) 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; 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 Coronary atherosclerosis 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 - [facility] and other heart disease disease of [place] Group (08960) coronary artery without angina pectoris Diabetes mellitus Type 2 diabetes mellitus Active 02-05-2017 - [facility] without complication without complication Group (86223) Disorders of lipid Hyperlipidemia Active 02-05-2017 - [facility] metabolism Group (15591) Essential hypertension Hypertensive disorder Active 7 - [facility] (57193) Unclassified Long-term drug therapy Active 02-05-2017 - [facility] (60468) Unclassified Warfarin therapy started Active 02-03-2017 - [facility] (55687) Past or Other Problems Category Problem Name Status Date Location Nonspecific chest pain Chest pain Completed 03-11-2017 - [facility] (41691) Other aftercare Other prison Completed 02-03-2017 - [facility] (current) drug (34385) therapy Other lower respiratory Dyspnea Completed 03-11-2017 - [facility] disease (17254) Other lower respiratory Dyspnea on exertion Completed 03-11-2017 - [facility] disease (43178) Results Result Name Value Range Unit Interpretation Flag Date Location lipid on 2018-02-24 Cholesterol 137 131-200 mg/dL Normal 02-24-2018 [facility] ([place]) (04890) Comment: Result Comment: Cholesterol Reference Interval:Less than 200 Vpzskguep800-185 Borderline high ajba229 and above High risk Performed By: #### LIPID, CM P, GFR ####[address] [place], [place] [address] HDL Cholesterol 35 35-90 mg/dL Normal 02-24-2018 [facility] ([place]) (22061) Comment: Result Comment: HDL Referenc e Interval:Less than 40 Low - high risk60 or above Optimal/lowers risk Performed By: #### LIPID, CM P, GFR ####[address] [place], [place] [address] LDL Cholesterol 75 0-130 mg/dL Normal 02-24-2018 [facility] ([place]) (57943) Comment: Result Comment: LDL is a christine culated result and requires a 12-hr fast.LDL Reference Interval:Less than 100 Xcnfuza695-185 Near or above dtkcucw236-156 Borderline high zhgt460-492 High qeyi278 and above Very high risk Performed By: #### LIPID, CM P, GFR ####[address] [place], [place] [address] Triglyceride 135 40-150 mg/dL Normal 02-24-2018 [facility] ([place]) (45575) Comment: Result Comment: Triglyceride Reference Interval:Less than 150 Czxute658-805 Borderline high wbtj724-257 High ayaq209 or higher Very high risk Performed By: #### LIPID, CM P, GFR ####[address] [place], [place] [address] cmp on 2018-02-24 Alanine aminotransferase (ALT) 18 10-35 IU/L Normal 02-24-2018 [facility] ([place]) (91503) Comment: Performed By: #### LIPID, CM P, GFR ####[address] [place], [place] [address] Albumin 4.2 3.4-4.8 G/dL Normal 02-24-2018 [facility]) (33602) Comment: Performed By: #### LIPID, CM P, GFR ####[address] [place], [place] [address] Albumin/Globulin Ratio 1.8 1.1-2.5 ratio Normal 018 [facility]) (0000 0) Comment: Performed By: #### LIPID, CM P, GFR ####[address] [place], [place] [address] Alk Phos 77 40-135 IU/L Normal 02-24-2018 [facility]) (12423) Comment: Performed By: #### LIPID, CM P, GFR ####[address] [place], [place] [address] Aspartate aminotransferase 18 10-40 IU/L Normal [facility]) (73566) Comment: Performed By: #### LIPID, CM P, GFR ####[address] [place], [place] [address] Bili Total 0.7 0.2-1.0 mg/dL Normal 02-24-2018 [facility]) (02823) Comment: Performed By: #### LIPID, CM P, GFR ####[address] [place], [place] [address] BUN/Creatinine Ratio 15 7-27 ratio Normal 8 [facility]) (12499) Comment: Performed By: #### LIPID, CM P, GFR ####[address] [place], [place] [address] Calcium 9.6 8.4-10.2 mg/dL Normal 02-24-2018 [facility]) (59066) Comment: Performed By: #### LIPID, CM P, GFR ####[address] [place], [place] [address] Chloride 106 98-107 mEq/L Normal 02-24-2018 [facility] ([place]) (67680) Comment: Performed By: #### LIPID, CM P, GFR ####[address] [place], [place] [address] CO2 26 23-31 mEq/L Normal 02-24-2018 [facility] ([place]) (68256) Comment: Performed By: #### LIPID, CM P, GFR ####[address] [place], [place] [address] Creatinine 1.7 0.6-1.2 mg/dL High 02-24-2018 [facility] ([place] (97255) Comment: Performed By: #### LIPID, CM P, GFR ####[address] [place], [place] [address] Electrolyte Balance 9.0 mEq/L Normal 02-24-2018 [facility] ([place] (58511) Comment: Performed By: #### LIPID, CM P, GFR ####[address] [place], [place] [address] Globulin 2.4 G/dL Normal 02-24-2018 [facility] ([place]) (80463) Comment: Performed By: #### LIPID, CM P, GFR ####[address] [place], [place] [address] Glucose mass conc 93 83-110 mg/dL Normal 02-24-2018 [facility] ([place]) (41690) Comment: Performed By: #### LIPID, CM P, GFR ####[address] [place], [place] [address] Potassium molar conc 4.7 3.5-5.1 mEq/L Normal 8 [facility] ([place]) (0000 0) Comment: Performed By: #### LIPID, CM P, GFR ####[address] [place], [place] [address] Protein 6.6 6.0-8.3 G/dL Normal 02-24-2018 [facility] ([place]) (47043) Comment: Performed By: #### LIPID, CM P, GFR ####[address] [place], [place] [address] Sodium 141 136-146 mEq/L Normal 02-24-2018 [facility] ([place] (16492) Comment: Performed By: #### LIPID, CM P, GFR ####[address] [place], [place] [address] Urea nitrogen 25.3 7.0-18.0 mg/dL High 02-24-2018 [facility] ([place]) (13954) Comment: Performed By: #### LIPID, CM P, GFR ####[address] [place], [place] [address] .gfr on 2018-02-24 eGFR (non-black) 38 ml/min/1.73sqm Normal 02-25-20 18 [facility] ([place]) (68480) Comment: Result Comment: GFR Populati on mean [...] By: #### LIPID, CM P, GFR ####[address] [place], [place] [address] eGFR (non-black) 46 ml/min/1.73sqm Normal 02-25-20 18 [facility] ([place] (41115) Comment: Result Comment: GFR Populati on mean [...] By: #### LIPID, CM P, GFR ####[address] [place], [place] [address] lipid on 2017-09-08 Cholesterol 111 131-200 mg/dL Low 09-08-2017 [facility] ([place]) (37990) Comment: Result Comment: Cholesterol Reference Interval:Less than 200 Nimhairlx900-270 Borderline high woer431 and above High risk Performed By: #### LIPID, CM P, GFR ####[address] [place], [place] [address] HDL Cholesterol 32 35-90 mg/dL Low 09-08-2017 [facility] ([place] (08404) Comment: Result Comment: HDL Referenc e Interval:Less than 40 Low - high risk60 or above Optimal/lowers risk Performed By: #### LIPID, CM P, GFR ####[address] [place], [place] [address] LDL Cholesterol 57 0-130 mg/dL Normal 09-08-2017 [facility] ([place]) (74467) Comment: Result Comment: LDL is a christine culated result and requires a 12-hr fast.LDL Reference Interval:Less than 100 Mqvbqcw293-413 Near or above qynvyka802-318 Borderline high kuld185-355 High sbkr344 and above Very high risk Performed By: #### LIPID, CM P, GFR ####[address] [place], [place] [address] Triglyceride 108 40-150 mg/dL Normal 09-08-2017 [facility] ([place] (85968) Comment: Result Comment: Triglyceride Reference Interval:Less than 150 Clyiye978-668 Borderline high cvrt175-627 High llvw895 or higher Very high risk Performed By: #### LIPID, CM P, GFR ####[address] [place], [place] [address] cmp on 2017-09-08 Alanine aminotransferase (ALT) 11 10-35 IU/L Normal 09-08-2017 [facility] ([place] (27341) Comment: Performed By: #### LIPID, CM P, GFR ####[address] [place], [place] [address] Albumin 4.1 3.4-4.8 G/dL Normal 09-08-2017 [facility]) (77067) Comment: Performed By: #### LIPID, CM P, GFR ####[address] [place], [place] [address] Albumin/Globulin Ratio 1.6 1.1-2.5 ratio Normal 017 [facility] ([place] (0000 0) Comment: Performed By: #### LIPID, CM P, GFR ####[address] [place], [place] [address] Alk Phos 87 40-135 IU/L Normal 09-08-2017 [facility]) (61886) Comment: Performed By: #### LIPID, CM P, GFR ####[address] [place], [place] [address] Aspartate aminotransferase 14 10-40 IU/L Normal [facility] ([facility]) (28729) Comment: Performed By: #### LIPID, CM P, GFR ####[address] [place], [place] [address] Bili Total 0.5 0.2-1.0 mg/dL Normal 09-08-2017 [facility]) (74278) Comment: Performed By: #### LIPID, CM P, GFR ####[address] [place], [place] [address] BUN/Creatinine Ratio 13 7-27 ratio Normal 7 [facility] ([place] (49559) Comment: Performed By: #### LIPID, CM P, GFR ####[address] [place], [place] [address] Calcium 9.3 8.4-10.2 mg/dL Normal 09-08-2017 [facility]) (47958) Comment: Performed By: #### LIPID, CM P, GFR ####[address] [place], [place] [address] Chloride 107 98-107 mEq/L Normal 09-08-2017 [facility] ([place] (53176) Comment: Performed By: #### LIPID, CM P, GFR ####[address] [place], [place] [address] CO2 27 23-31 mEq/L Normal 09-08-2017 [facility] ([place] (85938) Comment: Performed By: #### LIPID, CM P, GFR ####[address] [place], [place] [address] Creatinine 1.6 0.6-1.2 mg/dL High 09-08-2017 [facility] ([place] (41532) Comment: Performed By: #### LIPID, CM P, GFR ####[address] [place], [place] [address] Electrolyte Balance 7.0 mEq/L Normal 09-08-2017 [facility] ([place] (41361) Comment: Performed By: #### LIPID, CM P, GFR ####[address] [place], [place] [address] Globulin 2.5 G/dL Normal 09-08-2017 [facility] ([place] (81250) Comment: Performed By: #### LIPID, CM P, GFR ####[address] [place], [place] [address] Glucose mass conc 133 83-110 mg/dL High 09-08-2017 [facility] ([place] (26294) Comment: Performed By: #### LIPID, CM P, GFR ####[address] [place], [place] [address] Potassium molar conc 4.5 3.5-5.1 mEq/L Normal 7 [facility] ([place] (0000 0) Comment: Performed By: #### LIPID, CM P, GFR ####[address] [place], [place] [address] Protein 6.6 6.0-8.3 G/dL Normal 09-08-2017 [facility] ([place]) (53566) Comment: Performed By: #### LIPID, CM P, GFR ####[address] [place], [place] [address] Sodium 141 136-146 mEq/L Normal 09-08-2017 [facility] ([place] (55737) Comment: Performed By: #### LIPID, CM P, GFR ####[address] [place], [place] [address] Urea nitrogen 21.1 7.0-18.0 mg/dL High 09-08-2017 [facility] ([place]) (76502) Comment: Performed By: #### LIPID, CM P, GFR ####[address] [place], [place] [address] .gfr on 2017-09-08 eGFR (non-black) 42 ml/min/1.73sqm Normal 09-08-20 17 [facility] ([place] (21179) Comment: Result Comment: GFR Populati on mean [...] By: #### LIPID, CM P, GFR ####[address] [place], [place] [address] eGFR (non-black) 51 ml/min/1.73sqm Normal 09-08-20 17 [facility] ([place] (44972) Comment: Result Comment: GFR Populati on mean [...] By: #### LIPID, CM P, GFR ####[address] [place], [place] [address] office visit on 04-28-02 Documentation of Done Invalid Interpretation 08-20-2017 - [facility] current medications Code 08-20-2017 Group (70648) (procedure) clinical lists update on 2017-08-07 Left ventricular 53 % Invalid Interpretation 08-07-2017 - [facility] Ejection fraction Code 08-07-2017 [facility] (12161) lipid on 2017-05-07 Cholesterol 133 131-200 mg/dL Normal 05-07-2017 [facility] ([place] (92449) Comment: Result Comment: Cholesterol Reference Interval:Less than 200 Usvhvbsad649-818 Borderline high mmfp751 and above High risk Performed By: #### LIPID, CM P, GFR ####[address] [place], [place] [address] HDL Cholesterol 34 35-90 mg/dL Low 05-07-2017 [facility] ([place]) (45988) Comment: Result Comment: HDL Referenc e Interval:Less than 40 Low - high risk60 or above Optimal/lowers risk Performed By: #### LIPID, CM P, GFR ####[address] [place], [place] [address] LDL Cholesterol 71 0-130 mg/dL Normal 05-07-2017 [facility] ([place]) (72840) Comment: Result Comment: LDL is a christine culated result and requires a 12-hr fast.LDL Reference Interval:Less than 100 Lvytwyv432-479 Near or above uexpihj911-712 Borderline high bway858-599 High vmnl401 and above Very high risk Performed By: #### LIPID, CM P, GFR ####[address] [place], [place] [address] Triglyceride 141 40-150 mg/dL Normal 05-07-2017 [facility] ([place]) (20419) Comment: Result Comment: Triglyceride Reference Interval:Less than 150 Norftm982-169 Borderline high fwuu658-439 High toak759 or higher Very high risk Performed By: #### LIPID, CM P, GFR ####[address] [place], [place] [address] gfr on 2017-05-07 eGFR (non-black) 46 ml/min/1.73sqm Normal 05-07-[address] [place] [address] ([place]) ([address]) Comment: Result Comment: GFR Populati on mean [...] By: #### LIPID, CM P, GFR ####[address] [place], [place] [address] eGFR (non-black) 56 ml/min/1.73sqm Normal 05-07-20 17 [facility] ([place] (60603) Comment: Result Comment: GFR Populati on mean [...] #### LIPID, CM P, GFR ####[address] [place], [place] [address] cmp on 2017-05-07 Alanine aminotransferase (ALT) 13 10-35 ZZ Normal 05-07-2017 [facility] ([place] (58704) Comment: Performed By: #### LIPID, CM P, GFR ####[address] [place], [place] [address] Albumin 4.5 3.4-4.8 G/dL Normal 05-07-2017 [facility] ([place]) (78835) Comment: Performed By: #### LIPID, CM P, GFR ####[address] [place], [place] [address] Albumin/Globulin Ratio 1.7 1.1-2.5 ratio Normal 017 [facility] ([place] (0000 0) Comment: Performed By: #### LIPID, CM P, GFR ####[address] [place], [place] [address] Alk Phos 91 40-135 ZZ Normal 05-07-2017 [facility] ([place]) (57420) Comment: Performed By: #### LIPID, CM P, GFR ####[address] [place], [place] [address] Aspartate aminotransferase 14 10-40 ZZ Normal [facility] ([facility] ([place]) (15034) Comment: Performed By: #### LIPID, CM P, GFR ####[address] [place], [place] [address] Bili Total 0.6 0.2-1.0 mg/dL Normal 05-07-2017 [facility] ([place] (72691) Comment: Performed By: #### LIPID, CM P, GFR ####[address] [place], [place] [address] BUN/Creatinine Ratio 13 7-27 ratio Normal 201 7 [facility] ([place] (92273) Comment: Performed By: #### LIPID, CM P, GFR ####[address] [place], [place] [address] Calcium 9.6 8.4-10.2 mg/dL Normal 05-07-2017 [facility] ([place] (57172) Comment: Performed By: #### LIPID, CM P, GFR ####[address] [place], [place] [address] Chloride 104 98-107 mEq/L Normal 05-07-2017 [facility] ([place] (44753) Comment: Performed By: #### LIPID, CM P, GFR ####[address] [place], [place] [address] CO2 26 23-31 mEq/L Normal 05-07-2017 [facility] ([place]) (21917) Comment: Performed By: #### LIPID, CM P, GFR ####[address] [place], [place] [address] Creatinine 1.5 0.6-1.2 mg/dL High 05-07-2017 [facility] ([place] (73958) Comment: Performed By: #### LIPID, CM P, GFR ####[address] [place], [place] [address] Electrolyte Balance 10.0 mEq/L Normal 05-07-2017 [facility] ([place] (72274) Comment: Performed By: #### LIPID, CM P, GFR ####[address] [place], [place] [address] Globulin 2.6 G/dL Normal 05-07-2017 [facility] ([place] (94049) Comment: Performed By: #### LIPID, CM P, GFR ####[address] [place], [place] [address] Glucose mass conc 145 83-110 mg/dL High 05-07-2017 [facility] ([place]) (01957) Comment: Performed By: #### LIPID, CM P, GFR ####[address] [place], [place] [address] Potassium molar conc 4.8 3.5-5.1 mEq/L Normal 7 [facility] ([place]) (0000 0) Comment: Performed By: #### LIPID, CM P, GFR ####[address] [place], [place] [address] Protein 7.1 6.0-8.3 G/dL Normal 05-07-2017 [facility]) (90139) Comment: Performed By: #### LIPID, CM P, GFR ####[address] [place], [place] [address] Sodium 140 136-146 mEq/L Normal 05-07-2017 [facility]) (76719) Comment: Performed By: #### LIPID, CM P, GFR ####[address] [place], [place] [address] Urea nitrogen 19.5 7.0-18.0 mg/dL High 05-07-2017 [facility] ([place]) (65447) Comment: Performed By: #### LIPID, CM P, GFR ####[address] [place], [place] [address] append: cr referral on 2017-05-04 Clinical [id number]^03/11/2017 Invalid 05-04 - [facility] Interpretation 05-04-2017 [facility] eart report (record Code Group artifact) ([id number]) replaced document: midmark ecg observati ons on 2017-03-11 BUN (urea nitrogen) Sinus Bradycardia Invalid - [place] -Incomplete left Interpretation 03-11-20 17 Heart bundle branch Code Group block. -Poor (74864) R-wave progression -may be secondary to conduction defect consider old anterior infarct. - Nonspecific T-abnormality. ABNORMAL EKG QRS axis 28 deg Invalid 03-11-2017 [facility] Interpretation 03-11-2017 Hear [facility] Code Group (97294) GE use only - for 473 ms Invalid 03-11-2017 - [facility] import when Interpretation Heart terms are not Code Group otherwise specified (82738) P [place] 50 deg Invalid 03-11-2017 - [place] Interpretation 03-11-2017 Hear [facility] (67662) P wave axis, 50 deg Invalid 03-11-2017 - [facility] electrocardiogram Interpretation 017 [facility] Code [facility] (79160) ID Interval 158 ms Invalid 03-11-2017 - [place] Interpretation 03-11-2017 [facility] (48870) ID interval, 158 ms Invalid 03-11-2017 - [facility] electro[facility]ogram Interpretation 017 [facility] (51290) Protein mass conc Sinus Bradycardia Invalid 02-17 - [place] -Incomplete left Interpretation 03-11-20 Heart bundle branch Code Group block. -Poor (04604) R-wave progression -may be secondary to conduction defect consider old anterior infarct. - Nonspecific T-abnormality. ABNORMAL Pulse (Heart Rate) 58 BPM /min Invalid 03-11-2017 - [place] Interpretation 03-11-2017 Hear t Code Group (68345) QRS axis, 28 deg Invalid 03-11-2017 - [facility] electro[facility]ogram Interpretation 017 [facility] Code [facility] (47100) QRS Duration 116 ms Invalid 03-11-2017 - [facility] [facility] Interpretation 03-11-2017 [facility] (36157) QRS duration, 116 ms Invalid 03-11-2017 - [facility] [facility] electro[facility]ogram Interpretation 017 [facility] Code [facility] (18713) QT Interval new path ms Invalid 03-11-2017 - [facility] [facility] Interpretation 03-11-2017 Hear [facility] (09216) QT interval, new path ms Invalid 03-11-2017 - [place] electro[facility]ogram Interpretation 017 [facility] (03294) QTc [place] 473 ms Invalid 03-11-2017 - [place] Interpretation 03-11-2017 Hear t Code [facility] (04150) T [place] -28 deg Invalid 03-11-2017 - [facility] Interpretation 03-11-2017 Hear t Code [facility] (41326) T wave axis, -28 deg Invalid 03-11-2017 [facility] electro[facility]ogram Interpretation 017 [facility] Code [facility] (38342) office visit on 04-22-24 Documentation of Done Invalid Interpretation 03-11-2017 - [facility] current medications Code 03-11-2017 Group (19691) (procedure) Fall risk assessment Yes Invalid Interpretat ion 03-11-2017 - [facility] Code 03-11-2017 Group (44 691) Protein mass conc Done Invalid Interpretation 03-11-2017 - [facility] Code 03-11-2017 Group (44 231) clinical lists update: preload on 2017-02-05 Tobacco smoking Never smoker Invalid Interpretatio n 02-05-2017 - [facility] status NHIS Code 02-05-2017 Group ( 20300) Tobacco use Never smoker Invalid Interpretation - [facility] CPHS Code 02-05-2017 Group (44 681) lab report: prothrombin time w/inr on 2017-02-04 Coagulation tissue 20.0 SECONDS 11.7-14.9 High 02-05-20 17 - [facility] factor induced in 02-04-2017 [facility] (53049) platelet poor plasma coumadin management: warfarin calc on 2017-02-04 Coagulation tissue 20.0 s Invalid 02-04-2017 - [facility] factor induced in Interpretation Code Heart Group platelet poor (47406 ) plasma INR Coag RelTime 1.8 {INR} Invalid 02-04-2017 - [place] (PPP) Interpretation Code 02-04-2017 Heart Group (61068) INR in blood by 1.8 {INR} Invalid 02-04-2017 - [place] coagulation Interpretation Code 02-05-20 17 Heart Group (45924) INR in blood by 2 to 3 Invalid 02-04-2017 - [place] coagulation Interpretation Code 02-05-20 17 [facility] Group (29386) INR in blood by Hospital lab Invalid 02-04-2017 - [place] coagulation Interpretation Code 02-05-20 17 [facility] Group (18000) international 2 to 3 Invalid 02-04-2017 - [place] normalized ratio Interpretation Code Heart Group (INR) range (66495) Vital Signs Vital Sign Description Value / Unit Date Location The following section is limited to 5 en tries per type and includes entries from the following time range: 20170311 - [id number] 2. BMI (Body Mass Index) 24.81 kg/m2 08-20-2017 - 08-20-2017 [facility] (79881) BMI (Body Mass Index) 26.47 kg/m2 03-11-2017 - 03-11-2017 [facility] (34939) BP Diastolic 60 mm[Hg] 08-20-2017 - 08-20-2017 [facility] (41545) BP Diastolic 60 mm[Hg] 03-11-2017 - 03-11-2017 [facility] (10864) BP Systolic 104 mm[Hg] 08-20-2017 - 08-20-2017 [facility] (35678) BP Systolic 120 mm[Hg] 03-11-2017 - 03-11-2017 [facility] (33207) Heart rate 58 /min 03-11-2017 - 03-11-2017 [facility] (61197) Height 176.53 cm 08-20-2017 - 08-20-2017 [facility] (05975) Height 176.53 cm 03-11-2017 - 03-11-2017 [facility] (36007) Pulse (Heart Rate) 68 /min 08-20-2017 - 08-20-2017 [facility] (83574) Pulse (Heart Rate) 64 /min 03-11-2017 - 03-11-2017 [facility] (68521) Respiratory Rate 28 /min 03-11-2017 - 03-11-2017 [facility] (90093) Weight 77.34 kg 08-20-2017 - 08-20-2017 [facility] (19303) Weight 82.51 kg 03-11-2017 - 03-11-2017 [facility] (77091) Encounters Date Type Reason Provider Location 02-24-2018 - Ambulatory YUNG Willem JHOAN Facility:[facility] 03-01-2018 Y[facility]G STAPLES [place] 09-08-2017 - Ambulatory YUNG Willem STAPLES Facility:[facility] 09-13-2017 YUNG Willem [place]AP[place] 05-07-2017 Ambulatory Type 2 diabetes [facility] Facility :B mellitus without YUNG STAPLES complications Procedures Procedure Name Date Provider Location Follow Up Appt 6 months 08-20-2017 - Jason Lemus MD [facility] 08-20-2017 ([id number]) [facility] 08-20-2017 - Jason Lemus MD [facility] 08-20-2017 ([id number]) Follow Up Appt 6 months 03-11-2017 - [facility] 08-20-2017 ([id number]) MMM 03-11-2017 - [facility] 08-20-2017 ([id number]) INR in Platelet poor 02-03-2017 - [facility] plasma by Coagulation 02-04-2017 ([id number]) assay Coagulation factor 02-03-2017 - [facility] induced.INR assay in 02-04-2017 ([id number]) platelet poor plasma Plan of Treatment Plan Description Date Location Appointment Appointment 03-09-2018 - [facility] 03-09-2018 ([id number]) Follow Up Appt 6 months Follow Up Appt 6 months 08-20-2017 - [facility] 08-20-2017 ([id number]) R R 08-20-2017 - [facility] 08-20-2017 ([id number]) Appointment Appointment 08-20-2017 - [facility] 08-20-2017 ([id number]) Appointment Appointment 08-11-2017 - [facility] 08-11-2017 ([id number]) Appointment Appointment 08-11-2017 - [facility] 08-11-2017 ([id number]) Cardiac Rehab Rehab Cardiac Rehab Rehab 03-11-2017 - [facility], [facility], 17605-04-2017 ([id number]) [place], [place], [id number] EKG (In office) EKG (In office) 03-11-2017 - [facility] 03-11-2017 ([id number]) Follow Up Appt 6 months Follow Up Appt 6 months 03-11-2017 - [facility] 08-20-2017 ([id number]) [facility] 08-20-2017 ([id number]) Cardiac Rehab Rehab no information 03-11-2017 - [facility]61 05-04-2017 ([id number]) [place], [address] EKG (In office) EKG (In office) 03-11-2017 - [facility] 03-11-2017 ([id number]) Follow Up Appt 6 months Follow Up Appt 6 months 03-11-2017 - [facility] 03-11-2017 ([id number]) MMM MMM 03-11-2017 - [facility] 03-11-2017 ([id number]) *PT/INR - Standing Order *PT/INR - Standing Order 02-03-2017 - [facility] 02-04-2017 ([id number]) *PT/INR - Standing Order *PT/INR - Standing Order 02-03-2017 - [facility] 02-04-2017 ([id number]) Payers Payer Name Policy Number Renetta GILBERT [id number] [facility] ([place]) ([id number]) Summary Purpose Family History No Family History [...] BE BASED ON THE PRIMARY CLINICAL RECORDS. [facility] provides no warranty or guarantee of the accuracy or completeness of information in this document. UNRECOGNIZED CONTENT PROVIDED BELOW FOR UNRECOGNIZED SECTION No Status Records Found UNRECOGNIZED CONTENT PROVIDED BELOW FOR UNRECOGNIZED SECTION INFORMATION SOURCE DATE CREATED AUTHOR AUTHOR'S ORGANIZATIO N 04/07/2018 [facility]
== END ==
PROVIDERS: PCP Family Medicine; Referring Provider Physician Assistant Medical; Visit Provider Physician Assistant Medical
DX: I25.5 Ischemic cardiomyopathy (principal); I48.0 Paroxysmal atrial fibrillation; I25.119 Atherosclerotic heart disease of native coronary artery with unspecified angina pectoris; I50.43 Acute on chronic combined systolic (congestive) and diastolic (congestive) heart failure; I11.0 Hypertensive heart disease with heart failure; Z95.1 Presence of aortocoronary bypass graft
CPT/HCPCS: 36415; 80048; 83735; 83880; 84443; 85027

== ENCOUNTER → 2020-03-19 10:42 | Outpatient (CLI) | payer MEDICARE, SELFPAY ==
[2020-03-13 10:48] VITALS: BMI 23.9
[2020-03-19 11:45] LABS: Hemoglobin 14.5 g/dL (13.0-16.5); Mean Corpuscular Hgb 29.3 pg (27.0-32.0); Mean Corpuscular Volume 88.9 fL (80-94); Mean Platelet Vol. 12.4 fl (6.2-12.0); Platelet Count 150 K/mm3 (150-450); RBC Distribution Width CV 12.6 % (11.6-14.6); RBC Distribution Width SD 40.9 fl (35.1-43.9); Red Blood Count 4.95 M/mm3 (4.6-6.2); White Blood Count 9.3 K/mm3 (4.4-11.0)
[2020-03-19 12:31] LABS: Anion Gap 9 (5-15); BUN 27 mg/dL (7-18); BUN/Creat Ratio 14.1 RATIO (10-20); Calcium,Total 9.2 mg/dL (8.5-10.1); Chloride 95 mmol/L (98-107); Creatinine, Serum 1.91 mg/dL (0.70-1.30); EST Glomerular Filtration Rate 36 mL/min (>60); Est Glom Filt Rate - Afr Amer 44 mL/min (>60); Glucose 349 mg/dL (74-106); Potassium 2.8 mmol/L (3.5-5.1); Sodium Level 135 mmol/L (136-145)
--- OUTSIDE RECORDS SUMMARY | 2020-08-05 05:47 | XMS RPT_ITS | CCD ---
:1940 External Reference #:[id number] Author Organization [facility] Care Team Providers Name Role Phone [...] Prescriber Location aspirin ASPIRIN EC 81 MG [facility] 02-05-2017 [facility] tablet by mouth Group (4 4640) daily ASPIRIN [id number] Belle Gonzalez RN atorvastatin LIPITOR 40 MG TABS One 02-05-2017 [facility] tablet by mouth daily Group (18960) every night ATORVASTATIN CALCIUM [id number] Belle Gonzalez RN furosemide LASIX 40 MG TABS One 08-20-2017 [facility] tablet by mouth daily Group (78767) FUROSEMIDE [id number] Zully Reyes RN glimepiride GLIMEPIRIDE 4 MG TABS 02-05-2017 [facility] tablet by mouth Group (4 4691) twice daily GLIMEPIRIDE [id number] Belle Gonzalez RN lisinopril LISINOPRIL 5 MG TABS 03-11-2017 Jason Lemus MD [facility] One tablet by mouth Group (4 4634) daily LISINOPRIL [id number] Jason Lemus MD metoprolol METOPROLOL TARTRATE 50 02-05-2017 [facility] MG TABS One tablet by Group (97541) mouth twice daily METOPROLOL TARTRATE [id number] Belle Gonzalez RN METOPROLOL TARTRATE 25 MG TABS 02-05-2017 Jason Lemus MD [facility] One tablet by mouth twice (65616 ) daily METOPROLOL TARTRATE [id number] Jason Lemus MD warfarin COUMADIN 2.5 MG TABS One 02-05-2017 - 03-11-2017 [facility] tablet by mouth every night (33303) and as directed WARFARIN SODIUM [id number] Jason Lemus MD Problems Active Problems Category Problem Name Status Date Location Acute myocardial Non-ST elevation Active 02-05-2017 - [facility] infarction (NSTEMI) myocardial Group (4 4691) infarction Cardiac dysrhythmias Atrial fibrillation Active 02-03-2017 - [facility] (19593) 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; 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 Coronary atherosclerosis 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 - [facility] and other heart disease disease of [place] Group (80948) coronary artery without angina pectoris Diabetes mellitus Type 2 diabetes mellitus Active 02-05-2017 - [facility] without complication without complication Group (69492) Disorders of lipid Hyperlipidemia Active 02-05-2017 - [facility] metabolism Group (31141) Essential hypertension Hypertensive disorder Active 7 - [facility] (53546) Unclassified Long-term drug therapy Active 02-05-2017 - [facility] (41048) Unclassified Warfarin therapy started Active 02-03-2017 - [facility] (85845) Past or Other Problems Category Problem Name Status Date Location Nonspecific chest pain Chest pain Completed 03-11-2017 - [facility] (74474) Other aftercare Other longterm Completed 02-03-2017 - [facility] (current) drug (92203) therapy Other lower respiratory Dyspnea Completed 03-11-2017 - [facility] disease (22212) Other lower respiratory Dyspnea on exertion Completed 03-11-2017 - [facility] disease (27556) Results Result Name Value Range Unit Interpretation Flag Date Location lipid on 2018-02-24 Cholesterol 137 131-200 mg/dL Normal 02-24-2018 [facility] ([place]) (09359) Comment: Result Comment: Cholesterol Reference Interval:Less than 200 Feyreiooh012-996 Borderline high gorq423 and above High risk Performed By: #### LIPID, CM P, GFR ####[address] [place], [place] [address] HDL Cholesterol 35 35-90 mg/dL Normal 02-24-2018 [facility] ([place]) (90352) Comment: Result Comment: HDL Referenc e Interval:Less than 40 Low - high risk60 or above Optimal/lowers risk Performed By: #### LIPID, CM P, GFR ####[address] [place], [place] [address] LDL Cholesterol 75 0-130 mg/dL Normal 02-24-2018 [facility] ([place]) (98778) Comment: Result Comment: LDL is a christine culated result and requires a 12-hr fast.LDL Reference Interval:Less than 100 Wimuygr226-296 Near or above erhekbg353-752 Borderline high qucy417-921 High cqtn325 and above Very high risk Performed By: #### LIPID, CM P, GFR ####[address] [place], [place] [address] Triglyceride 135 40-150 mg/dL Normal 02-24-2018 [facility] ([place]) (84420) Comment: Result Comment: Triglyceride Reference Interval:Less than 150 Kuotyq468-474 Borderline high uglz454-514 High ykwp904 or higher Very high risk Performed By: #### LIPID, CM P, GFR ####[address] [place], [place] [address] cmp on 2018-02-24 Alanine aminotransferase (ALT) 18 10-35 IU/L Normal 02-24-2018 [facility] ([place]) (55719) Comment: Performed By: #### LIPID, CM P, GFR ####[address] [place], [place] [address] Albumin 4.2 3.4-4.8 G/dL Normal 02-24-2018 [facility]) (18578) Comment: Performed By: #### LIPID, CM P, GFR ####[address] [place], [place] [address] Albumin/Globulin Ratio 1.8 1.1-2.5 ratio Normal 018 [facility]) (0000 0) Comment: Performed By: #### LIPID, CM P, GFR ####[address] [place], [place] [address] Alk Phos 77 40-135 IU/L Normal 02-24-2018 [facility]) (83278) Comment: Performed By: #### LIPID, CM P, GFR ####[address] [place], [place] [address] Aspartate aminotransferase 18 10-40 IU/L Normal [facility] (48067) Comment: Performed By: #### LIPID, CM P, GFR ####[address] [place], [place] [address] Bili Total 0.7 0.2-1.0 mg/dL Normal 02-24-2018 [facility]) (54458) Comment: Performed By: #### LIPID, CM P, GFR ####[address] [place], [place] [address] BUN/Creatinine Ratio 15 7-27 ratio Normal 8 [facility]) (32467) Comment: Performed By: #### LIPID, CM P, GFR ####[address] [place], [place] [address] Calcium 9.6 8.4-10.2 mg/dL Normal 02-24-2018 [facility]) (18570) Comment: Performed By: #### LIPID, CM P, GFR ####[address] [place], [place] [address] Chloride 106 98-107 mEq/L Normal 02-24-2018 [facility] ([place]) (21510) Comment: Performed By: #### LIPID, CM P, GFR ####[address] [place], [place] [address] CO2 26 23-31 mEq/L Normal 02-24-2018 [facility] ([place]) (27401) Comment: Performed By: #### LIPID, CM P, GFR ####[address] [place], [place] [address] Creatinine 1.7 0.6-1.2 mg/dL High 02-24-2018 [facility] ([place]) (91679) Comment: Performed By: #### LIPID, CM P, GFR ####[address] [place], [place] [address] Electrolyte Balance 9.0 mEq/L Normal 02-24-2018 [facility] ([place]) (84208) Comment: Performed By: #### LIPID, CM P, GFR ####[address] [place], [place] [address] Globulin 2.4 G/dL Normal 02-24-2018 [facility] ([place]) (66858) Comment: Performed By: #### LIPID, CM P, GFR ####[address] [place], [place] [address] Glucose mass conc 93 83-110 mg/dL Normal 02-24-2018 [facility] ([place]) (24714) Comment: Performed By: #### LIPID, CM P, GFR ####[address] [place], [place] [address] Potassium molar conc 4.7 3.5-5.1 mEq/L Normal 8 [facility] ([place]) (0000 0) Comment: Performed By: #### LIPID, CM P, GFR ####[address] [place], [place] [address] Protein 6.6 6.0-8.3 G/dL Normal 02-24-2018 [facility] ([place]) (43093) Comment: Performed By: #### LIPID, CM P, GFR ####[address] [place], [place] [address] Sodium 141 136-146 mEq/L Normal 02-24-2018 [facility] ([place]) (35158) Comment: Performed By: #### LIPID, CM P, GFR ####[address] [place], [place] [address] Urea nitrogen 25.3 7.0-18.0 mg/dL High 02-24-2018 [facility] ([place]) (73777) Comment: Performed By: #### LIPID, CM P, GFR ####[address] [place], [place] [address] .gfr on 2018-02-24 eGFR (non-black) 38 ml/min/1.73sqm Normal 02-25-20 18 [facility] ([place]) (28228) Comment: Result Comment: GFR Populati on mean [...] By: #### LIPID, CM P, GFR ####[address] [place], [place] [address] eGFR (non-black) 46 ml/min/1.73sqm Normal 02-25-20 18 [facility] ([place]) (01921) Comment: Result Comment: GFR Populati on mean [...] By: #### LIPID, CM P, GFR ####[address] [place], [place] [address] lipid on 2017-09-08 Cholesterol 111 131-200 mg/dL Low 09-08-2017 [facility] ([place]) (39876) Comment: Result Comment: Cholesterol Reference Interval:Less than 200 Kugweocps815-094 Borderline high ewhs332 and above High risk Performed By: #### LIPID, CM P, GFR ####[address] [place], [place] [address] HDL Cholesterol 32 35-90 mg/dL Low 09-08-2017 [facility] ([place]) (25654) Comment: Result Comment: HDL Referenc e Interval:Less than 40 Low - high risk60 or above Optimal/lowers risk Performed By: #### LIPID, CM P, GFR ####[address] [place], [place] [address] LDL Cholesterol 57 0-130 mg/dL Normal 09-08-2017 [facility] ([place]) (18430) Comment: Result Comment: LDL is a christine culated result and requires a 12-hr fast.LDL Reference Interval:Less than 100 Ibbcovk026-838 Near or above otiyezb815-065 Borderline high nviq397-475 High zdyz925 and above Very high risk Performed By: #### LIPID, CM P, GFR ####[address] [place], [place] [address] Triglyceride 108 40-150 mg/dL Normal 09-08-2017 [facility] ([place]) (27265) Comment: Result Comment: Triglyceride Reference Interval:Less than 150 Yqfhbk724-743 Borderline high lnqe685-913 High awuu246 or higher Very high risk Performed By: #### LIPID, CM P, GFR ####[address] [place], [place] [address] cmp on 2017-09-08 Alanine aminotransferase (ALT) 11 10-35 IU/L Normal 09-08-2017 [facility] ([place]) (31808) Comment: Performed By: #### LIPID, CM P, GFR ####[address] [place], [place] [address] Albumin 4.1 3.4-4.8 G/dL Normal 09-08-2017 [facility]) (67281) Comment: Performed By: #### LIPID, CM P, GFR ####[address] [place], [place] [address] Albumin/Globulin Ratio 1.6 1.1-2.5 ratio Normal 017 [facility] ([place]) (0000 0) Comment: Performed By: #### LIPID, CM P, GFR ####[address] [place], [place] [address] Alk Phos 87 40-135 IU/L Normal 09-08-2017 [facility]) (56964) Comment: Performed By: #### LIPID, CM P, GFR ####[address] [place], [place] [address] Aspartate aminotransferase 14 10-40 IU/L Normal [facility]) (02870) Comment: Performed By: #### LIPID, CM P, GFR ####[address] [place], [place] [address] Bili Total 0.5 0.2-1.0 mg/dL Normal 09-08-2017 [facility]) (36456) Comment: Performed By: #### LIPID, CM P, GFR ####[address] [place], [place] [address] BUN/Creatinine Ratio 13 7-27 ratio Normal 7 [facility] ([place]) (61952) Comment: Performed By: #### LIPID, CM P, GFR ####[address] [place], [place] [address] Calcium 9.3 8.4-10.2 mg/dL Normal 09-08-2017 [facility]) (11640) Comment: Performed By: #### LIPID, CM P, GFR ####[address] [place], [place] [address] Chloride 107 98-107 mEq/L Normal 09-08-2017 [facility] ([place]) (49642) Comment: Performed By: #### LIPID, CM P, GFR ####[address] [place], [place] [address] CO2 27 23-31 mEq/L Normal 09-08-2017 [facility] ([place]) (96914) Comment: Performed By: #### LIPID, CM P, GFR ####[address] [place], [place] [address] Creatinine 1.6 0.6-1.2 mg/dL High 09-08-2017 [facility] ([place]) (99431) Comment: Performed By: #### LIPID, CM P, GFR ####[address] [place], [place] [address] Electrolyte Balance 7.0 mEq/L Normal 09-08-2017 [facility] ([place]) (08173) Comment: Performed By: #### LIPID, CM P, GFR ####[address] [place], [place] [address] Globulin 2.5 G/dL Normal 09-08-2017 [facility] ([place]) (06973) Comment: Performed By: #### LIPID, CM P, GFR ####[address] [place], [place] [address] Glucose mass conc 133 83-110 mg/dL High 09-08-2017 [facility] ([place]) (51472) Comment: Performed By: #### LIPID, CM P, GFR ####[address] [place], [place] [address] Potassium molar conc 4.5 3.5-5.1 mEq/L Normal 7 [facility] ([place]) (0000 0) Comment: Performed By: #### LIPID, CM P, GFR ####[address] [place], [place] [address] Protein 6.6 6.0-8.3 G/dL Normal 09-08-2017 [facility] ([place]) (51505) Comment: Performed By: #### LIPID, CM P, GFR ####[address] [place], [place] [address] Sodium 141 136-146 mEq/L Normal 09-08-2017 [facility] ([place]) (05164) Comment: Performed By: #### LIPID, CM P, GFR ####[address] [place], [place] [address] Urea nitrogen 21.1 7.0-18.0 mg/dL High 09-08-2017 [facility] ([place]) (34509) Comment: Performed By: #### LIPID, CM P, GFR ####[address] [place], [place] [address] .gfr on 2017-09-08 eGFR (non-black) 42 ml/min/1.73sqm Normal 09-08-20 17 [facility] ([place]) (26991) Comment: Result Comment: GFR Populati on mean [...] By: #### LIPID, CM P, GFR ####[address] [place], [place] [address] eGFR (non-black) 51 ml/min/1.73sqm Normal 09-08-20 17 [facility] ([place]) (28470) Comment: Result Comment: GFR Populati on mean [...] By: #### LIPID, CM P, GFR ####[address] [place], [place] [address] office visit on 04-28-02 Documentation of Done Invalid Interpretation 08-20-2017 - [facility] current medications Code 08-20-2017 Group (51051) (procedure) clinical lists update on 2017-08-07 Left ventricular 53 % Invalid Interpretation 08-07-2017 - [facility] Ejection fraction Code 08-07-2017 [facility] (96332) lipid on 2017-05-07 Cholesterol 133 131-200 mg/dL Normal 05-07-2017 [facility] ([place]) (83599) Comment: Result Comment: Cholesterol Reference Interval:Less than 200 Mcpzeawwd576-980 Borderline high hcdp704 and above High risk Performed By: #### LIPID, CM P, GFR ####[address] [place], [place] [address] HDL Cholesterol 34 35-90 mg/dL Low 05-07-2017 [facility] ([place]) (38167) Comment: Result Comment: HDL Referenc e Interval:Less than 40 Low - high risk60 or above Optimal/lowers risk Performed By: #### LIPID, CM P, GFR ####[address] [place], [place] [address] LDL Cholesterol 71 0-130 mg/dL Normal 05-07-2017 [facility] ([place]) (93487) Comment: Result Comment: LDL is a christine culated result and requires a 12-hr fast.LDL Reference Interval:Less than 100 Sgxjsge357-760 Near or above -614 Borderline high uxpf844-691 High soza550 and above Very high risk Performed By: #### LIPID, CM P, GFR ####[address] [place], [place] [address] Triglyceride 141 40-150 mg/dL Normal 05-07-2017 [facility] ([place]) (26558) Comment: Result Comment: Triglyceride Reference Interval:Less than 150 Kesbub667-473 Borderline high gplr147-513 High jevh875 or higher Very high risk Performed By: #### LIPID, CM P, GFR ####[address] [place], [place] [address] gfr on 2017-05-07 eGFR (non-black) 46 ml/min/1.73sqm Normal 05-07-[address] [place] [address] ([place]) (40223) Comment: Result Comment: GFR Populati on mean [...] By: #### LIPID, CM P, GFR ####[address] [place], [place] [address] eGFR (non-black) 56 ml/min/1.73sqm Normal 05-07-20 17 [facility] ([place]) (74647) Comment: Result Comment: GFR Populati on mean [...] #### LIPID, CM P, GFR ####[address] [place], [place] [address] cmp on 2017-05-07 Alanine aminotransferase (ALT) 13 10-35 ZZ Normal 05-07-2017 [facility] ([place]) (00988) Comment: Performed By: #### LIPID, CM P, GFR ####[address] [place], [place] [address] Albumin 4.5 3.4-4.8 G/dL Normal 05-07-2017 [facility] ([place]) (47748) Comment: Performed By: #### LIPID, CM P, GFR ####[address] [place], [place] [address] Albumin/Globulin Ratio 1.7 1.1-2.5 ratio Normal 017 [facility] ([place]) (0000 0) Comment: Performed By: #### LIPID, CM P, GFR ####[address] [place], [place] [address] Alk Phos 91 40-135 ZZ Normal 05-07-2017 [facility] ([place]) (59266) Comment: Performed By: #### LIPID, CM P, GFR ####[address] [place], [place] [address] Aspartate aminotransferase 14 10-40 ZZ Normal [facility] ([facility] ([place]) (88243) Comment: Performed By: #### LIPID, CM P, GFR ####[address] [place], [place] [address] Bili Total 0.6 0.2-1.0 mg/dL Normal 05-07-2017 [facility] ([place]) (12422) Comment: Performed By: #### LIPID, CM P, GFR ####[address] [place], [place] [address] BUN/Creatinine Ratio 13 7-27 ratio Normal 201 7 [facility] ([place]) (57259) Comment: Performed By: #### LIPID, CM P, GFR ####[address] [place], [place] [address] Calcium 9.6 8.4-10.2 mg/dL Normal 05-07-2017 [facility] ([place]) (34941) Comment: Performed By: #### LIPID, CM P, GFR ####[address] [place], [place] [address] Chloride 104 98-107 mEq/L Normal 05-07-2017 [facility] ([place]) (59316) Comment: Performed By: #### LIPID, CM P, GFR ####[address] [place], [place] [address] CO2 26 23-31 mEq/L Normal 05-07-2017 [facility] ([place]) (01881) Comment: Performed By: #### LIPID, CM P, GFR ####[address] [place], [place] [address] Creatinine 1.5 0.6-1.2 mg/dL High 05-07-2017 [facility] ([place]) (35105) Comment: Performed By: #### LIPID, CM P, GFR ####[address] [place], [place] [address] Electrolyte Balance 10.0 mEq/L Normal 05-07-2017 [facility] ([place]) (35779) Comment: Performed By: #### LIPID, CM P, GFR ####[address] [place], [place] [address] Globulin 2.6 G/dL Normal 05-07-2017 [facility] ([place]) (61521) Comment: Performed By: #### LIPID, CM P, GFR ####[address] [place], [place] [address] Glucose mass conc 145 83-110 mg/dL High 05-07-2017 [facility] ([place]) (74504) Comment: Performed By: #### LIPID, CM P, GFR ####[address] [place], [place] [address] Potassium molar conc 4.8 3.5-5.1 mEq/L Normal 7 [facility] ([place]) (0000 0) Comment: Performed By: #### LIPID, CM P, GFR ####[address] [place], [place] [address] Protein 7.1 6.0-8.3 G/dL Normal 05-07-2017 [facility]) (09557) Comment: Performed By: #### LIPID, CM P, GFR ####[address] [place], [place] [address] Sodium 140 136-146 mEq/L Normal 05-07-2017 [facility]) (97981) Comment: Performed By: #### LIPID, CM P, GFR ####[address] [place], [place] [address] Urea nitrogen 19.5 7.0-18.0 mg/dL High 05-07-2017 [facility] ([place]) (25167) Comment: Performed By: #### LIPID, CM P, GFR ####[address] [place], [place] [address] append: cr referral on 2017-05-04 Clinical [id number]^03/11/2017 Invalid 05-04 - [facility] consultation Interpretation 05-04-2017 [facility] e[facility] report (record Code Group artifact) (60401) replaced document: midmark ecg observati ons on 2017-03-11 BUN (urea nitrogen) Sinus Bradycardia Invalid - [facility] -Incomplete left Interpretation 03-11-20 17 Heart bundle branch Code Group block. -Poor (25589) R-wave progression -may be secondary to conduction defect consider old anterior infarct. - Nonspecific T-abnormality. ABNORMAL EKG QRS axis 28 deg Invalid 03-11-2017 [facility] Interpretation 03-11-2017 Hear [facility] Group (99339) GE use only - for 473 ms Invalid 03-11-2017 - [facility] import when Interpretation Heart terms are not Code Group otherwise specified (48582) P Sebastian 50 deg Invalid 03-11-2017 - [facility] Interpretation 03-11-2017 [facility] (91963) P wave axis, 50 deg Invalid 03-11-2017 [facility] electrocardiogram Interpretation 017 [facility] Code Group (48118) TX Interval 158 ms Invalid 03-11-2017 - [place] Interpretation 03-11-2017 [facility] (53078) TX interval, 158 ms Invalid 03-11-2017 - [facility] electrocardiogram Interpretation 017 [facility] (71875) Protein mass conc Sinus Bradycardia Invalid 02-17 - [facility] -Incomplete left Interpretation 03-11-20 Heart bundle branch Code Group block. -Poor (29551) R-wave progression -may be secondary to conduction defect consider old anterior infarct. - Nonspecific T-abnormality. ABNORMAL Pulse (Heart Rate) 58 BPM /min Invalid 03-11-2017 - [facility] Interpretation 03-11-2017 Hear t Code [facility] (84521) QRS axis, 28 deg Invalid 03-11-2017 - [facility] electro[facility]ogram Interpretation 017 [facility] (61011) QRS Duration 116 ms Invalid 03-11-2017 - [facility] [facility] Interpretation 03-11-2017 [facility] (56134) QRS duration, 116 ms Invalid 03-11-2017 - [place] [facility] electrocardiogram Interpretation 017 [facility] Code [facility] (59442) QT Interval new path ms Invalid 03-11-2017 - [facility] [facility] Interpretation 03-11-2017 Hear [facility] (97081) QT interval, new path ms Invalid 03-11-2017 - [place] electro[facility]ogram Interpretation 017 [facility] Code [facility] (97255) QTc Verde 473 ms Invalid 03-11-2017 - [place] Interpretation 03-11-2017 [facility] (06357) T Sebastian -28 deg Invalid 03-11-2017 - [facility] Interpretation 03-11-2017 Hear t Code [facility] (13140) T wave axis, -28 deg Invalid 03-11-2017 [facility] electro[facility]ogram Interpretation 017 [facility] Code [facility] (99262) office visit on 04-22-24 Documentation of Done Invalid Interpretation 03-11-2017 - [facility] current medications Code 03-11-2017 Group (41044) (procedure) Fall risk assessment Yes Invalid Interpretat ion 03-11-2017 - [facility] Code 03-11-2017 Group (44 691) Protein mass conc Done Invalid Interpretation 03-11-2017 - [facility] Code 03-11-2017 Group (44 631) clinical lists update: preload on 2017-02-05 Tobacco smoking Never smoker Invalid Interpretatio n 02-05-2017 - [facility] status NHIS Code 02-05-2017 Group ( 81752) Tobacco use Never smoker Invalid Interpretation - [facility] CPHS Code 02-05-2017 Group (44 831) lab report: prothrombin time w/inr on 2017-02-04 Coagulation tissue 20.0 SECONDS 11.7-14.9 High 02-05-20 17 - [facility] factor induced in 02-04-2017 [facility] (11255) platelet poor plasma coumadin management: warfarin calc on 2017-02-04 Coagulation tissue 20.0 s Invalid 02-04-2017 - [facility] factor induced in Interpretation Code Heart Group platelet poor (01437 ) plasma INR Coag RelTime 1.8 {INR} Invalid 02-04-2017 - [facility] (PPP) Interpretation Code 02-04-2017 [facility] Group (32065) INR in blood by 1.8 {INR} Invalid 02-04-2017 - [place] coagulation Interpretation Code 02-05-20 17 Heart Group (14286) INR in blood by 2 to 3 Invalid 02-04-2017 - [place] coagulation Interpretation Code 02-05-20 17 Heart Group (05617) INR in blood by Hospital lab Invalid 02-04-2017 - [facility] coagulation Interpretation Code 02-05-20 17 [facility] Group (79446) international 2 to 3 Invalid 02-04-2017 - [place] [facility] normalized ratio Interpretation Code Heart Group (INR) range (13414) Vital Signs Vital Sign Description Value / Unit Date Location The following section is limited to 5 en tries per type and includes entries from the following time range: 20170311 - [id number] 2. BMI (Body Mass Index) 24.81 kg/m2 08-20-2017 - 08-20-2017 [facility] (29859) BMI (Body Mass Index) 26.47 kg/m2 03-11-2017 - 03-11-2017 [facility] (50595) BP Diastolic 60 mm[Hg] 08-20-2017 - 08-20-2017 [facility] (13539) BP Diastolic 60 mm[Hg] 03-11-2017 - 03-11-2017 [facility] (92753) BP Systolic 104 mm[Hg] 08-20-2017 - 08-20-2017 [facility] (41038) BP Systolic 120 mm[Hg] 03-11-2017 - 03-11-2017 [facility] (96803) Heart rate 58 /min 03-11-2017 - 03-11-2017 [facility] (66737) Height 176.53 cm 08-20-2017 - 08-20-2017 [facility] (88920) Height 176.53 cm 03-11-2017 - 03-11-2017 [facility] (09108) Pulse (Heart Rate) 68 /min 08-20-2017 - 08-20-2017 [facility] (94517) Pulse (Heart Rate) 64 /min 03-11-2017 - 03-11-2017 [facility] (59707) Respiratory Rate 28 /min 03-11-2017 - 03-11-2017 [facility] (33061) Weight 77.34 kg 08-20-2017 - 08-20-2017 [facility] (13742) Weight 82.51 kg 03-11-2017 - 03-11-2017 [facility] (37312) Encounters Date Type Reason Provider Location 02-24-2018 - Ambulatory YUNG Willem JHOAN Facility:[facility] 03-01-2018 Y[facility]G STAPLES [place] 09-08-2017 - Ambulatory YUNG Willem [place] Facility:[facility] 09-13-2017 YUNG Willem [place] 05-07-2017 Ambulatory Type 2 diabetes [facility] Facility :B mellitus without YUNG STAPLES complications Procedures Procedure Name Date Provider Location Follow Up Appt 6 months 08-20-2017 - Jason Lemus MD [facility] 08-20-2017 ([id number]) [facility] 08-20-2017 - Jason Lemus MD [facility] 08-20-2017 ([id number]) Follow Up Appt 6 months 03-11-2017 - [facility] 08-20-2017 ([id number]) MMM 03-11-2017 - MD [facility] 08-20-2017 ([id number]) INR in Platelet poor 02-03-2017 - [facility] plasma by Coagulation 02-04-2017 ([id number]) assay Coagulation factor 02-03-2017 - [facility] induced.INR assay in 02-04-2017 ([id number]) platelet poor plasma Plan of Treatment Plan Description Date Location Appointment Appointment 03-09-2018 - [facility] 03-09-2018 ([id number]) Follow Up Appt 6 months Follow Up Appt 6 months 08-20-2017 - [facility] 08-20-2017 ([id number]) R R 08-20-2017 - [facility] 08-20-2017 ([id number]) Appointment Appointment 08-20-2017 - [facility] 08-20-2017 ([id number]) Appointment Appointment 08-11-2017 - [facility] 08-11-2017 ([id number]) Appointment Appointment 08-11-2017 - [facility] 08-11-2017 ([id number]) Cardiac Rehab Rehab Card[facility] Re[facility] Rehab 03-11-2017 - [facility], [facility], 17605-04-2017 ([id number]) [place], [place], [id number] EKG (In office) EKG (In office) 03-11-2017 - [facility] 03-11-2017 ([id number]) Follow Up Appt 6 months Follow Up Appt 6 months 03-11-2017 - [facility] 08-20-2017 ([id number]) [facility] 08-20-2017 ([id number]) Cardiac Rehab Rehab no information 03-11-2017 - [facility]61 05-04-2017 ([id number]) [place], [address] EKG (In office) EKG (In office) 03-11-2017 - [facility] 03-11-2017 ([id number]) Follow Up Appt 6 months Follow Up Appt 6 months 03-11-2017 - [facility] 03-11-2017 ([id number]) MMM MMM 03-11-2017 - [facility] 03-11-2017 ([id number]) *PT/INR - Standing Order *PT/INR - Standing Order 02-03-2017 - [facility] 02-04-2017 ([id number]) *PT/INR - Standing Order *PT/INR - Standing Order 02-03-2017 - [facility] 02-04-2017 ([id number]) Payers Payer Name Policy Number Renetta GILBERT [id number] [employer] [employer] ([place]) ([id number]) Summary Purpose Family History No Family History [...] BE BASED ON THE PRIMARY CLINICAL RECORDS. [facility] provides no warranty or guarantee of the accuracy or completeness of information in this document. UNRECOGNIZED CONTENT PROVIDED BELOW FOR UNRECOGNIZED SECTION No Status Records Found UNRECOGNIZED CONTENT PROVIDED BELOW FOR UNRECOGNIZED SECTION INFORMATION SOURCE DATE CREATED AUTHOR AUTHOR'S ORGANIZATIO N 04/07/2018 Varthana [facility] ([place])
== END ==
PROVIDERS: PCP Family Medicine; Referring Provider Physician Assistant Medical; Visit Provider Physician Assistant Medical
DX: I12.9 Hypertensive chronic kidney disease with stage 1 through stage 4 chronic kidney disease, or unspecified chronic kidney disease (principal); I51.89 Other ill-defined heart diseases; I50.43 Acute on chronic combined systolic (congestive) and diastolic (congestive) heart failure; I25.5 Ischemic cardiomyopathy; I48.0 Paroxysmal atrial fibrillation
CPT/HCPCS: 36415; 80048; 85027

== ENCOUNTER → 2020-03-23 10:16 | Outpatient (CLI) | payer MEDICARE, SELFPAY ==
[2020-03-13 10:48] VITALS: BMI 23.9
[2020-03-23 11:52] LABS: Vitamin D,25 Hydroxy 76.4 ng/mL
[2020-03-23 11:53] LABS: ALB/GLOB Ratio 1.1 RATIO (0.9-2.4); AST(SGOT) 42 U/L (15-37); Alanine Aminotransfer ALT/SGPT 118 U/L (16-61); Albumin, Serum 3.6 g/dL (3.2-5.0); Alkaline Phosphatase 131 U/L (45-117); Anion Gap 7 (5-15); BUN 30 mg/dL (7-18); BUN/Creat Ratio 16.1 RATIO (10-20); Calcium,Total 9.2 mg/dL (8.5-10.1); Chloride 98 mmol/L (98-107); Cholesterol 113 mg/dL (200); Creatinine, Serum 1.86 mg/dL (0.70-1.30); EST Glomerular Filtration Rate 37 mL/min (>60); Est Glom Filt Rate - Afr Amer 45 mL/min (>60); Globulin 3.2 g/dL (2.2-4.2); Glucose 349 mg/dL (74-106); High Density Lipoprotein 32 mg/dL; Protein, Total 6.8 g/dL (6.4-8.2); Sodium Level 135 mmol/L (136-145); Triglycerides 136 mg/dL; Very Low Density Lipoprotein 27 mg/dL (5-40)
--- OUTSIDE RECORDS SUMMARY | 2020-08-05 08:22 | XMS RPT_ITS | CCD ---
:1940 External Reference #:[id number] Author Organization [facility] Care Team Providers Name Role Phone MD [...] Prescriber Location aspirin ASPIRIN EC 81 MG [facility] 02-05-2017 [facility] One tablet by mouth Group (4 4632) daily ASPIRIN [id number] Belle Gonzalez RN atorvastatin LIPITOR 40 MG TABS One 02-05-2017 [facility] tablet by mouth daily Group (39710) every night ATORVASTATIN CALCIUM [id number] Belle Gonzalez RN furosemide LASIX 40 MG TABS One 08-20-2017 [facility] tablet by mouth daily Group (03840) FUROSEMIDE [id number] Zully Reyes RN glimepiride GLIMEPIRIDE 4 MG TABS 02-05-2017 [facility] One tablet by mouth Group (4 4691) twice daily GLIMEPIRIDE [id number] Belle Gonzalez RN lisinopril LISINOPRIL 5 MG TABS 03-11-2017 Jason Lemus MD [facility] One tablet by mouth Group (4 4628) daily LISINOPRIL [id number] Jason Lemus MD metoprolol METOPROLOL TARTRATE 50 02-05-2017 [facility] MG TABS One tablet by Group (05715) mouth twice daily METOPROLOL TARTRATE [id number] Belle Gonzalez RN METOPROLOL TARTRATE 25 MG TABS 02-05-2017 Jason Lemus MD [facility] One tablet by mouth twice (88827 ) daily METOPROLOL TARTRATE [id number] Jason Lemus MD warfarin COUMADIN 2.5 MG TABS One 02-05-2017 - 03-11-2017 [facility] tablet by mouth every night (50602) and as directed WARFARIN SODIUM [id number] Jason Lemus MD Problems Active Problems Category Problem Name Status Date Location Acute myocardial Non-ST elevation Active 02-05-2017 - [facility] infarction (NSTEMI) myocardial Group (4 4691) infarction Cardiac dysrhythmias Atrial fibrillation Active 02-03-2017 - [facility] (23188) 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; 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 Coronary atherosclerosis 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 - [facility] and other heart disease disease of [place] Group (19647) coronary artery without angina pectoris Diabetes mellitus Type 2 diabetes mellitus Active 02-05-2017 - [facility] without complication without complication Group (72718) Disorders of lipid Hyperlipidemia Active 02-05-2017 - [facility] metabolism Group (65056) Essential hypertension Hypertensive disorder Active 7 - [facility] (34805) Unclassified Long-term drug therapy Active 02-05-2017 - [facility] (94044) Unclassified Warfarin therapy started Active 02-03-2017 - [facility] (73122) Past or Other Problems Category Problem Name Status Date Location Nonspecific chest pain Chest pain Completed 03-11-2017 - [facility] (86516) Other aftercare Other snf Completed 02-03-2017 - [facility] (current) drug (35110) therapy Other lower respiratory Dyspnea Completed 03-11-2017 - [facility] disease (04098) Other lower respiratory Dyspnea on exertion Completed 03-11-2017 - [facility] disease (61030) Results Result Name Value Range Unit Interpretation Flag Date Location lipid on 2018-02-24 Cholesterol 137 131-200 mg/dL Normal 02-24-2018 [facility] ([place] (15696) Comment: Result Comment: Cholesterol Reference Interval:Less than 200 Ohepczisa049-126 Borderline high jvlh171 and above High risk Performed By: #### LIPID, CM P, GFR ####[address] [place], [place] [address] HDL Cholesterol 35 35-90 mg/dL Normal 02-24-2018 [facility] ([place] (93676) Comment: Result Comment: HDL Referenc e Interval:Less than 40 Low - high risk60 or above Optimal/lowers risk Performed By: #### LIPID, CM P, GFR ####[address] [place], [place] [address] LDL Cholesterol 75 0-130 mg/dL Normal 02-24-2018 [facility] ([place] (88402) Comment: Result Comment: LDL is a christine culated result and requires a 12-hr fast.LDL Reference Interval:Less than 100 Rpyqkst174-152 Near or above lsigoxc503-495 Borderline high orcy712-675 High vgea356 and above Very high risk Performed By: #### LIPID, CM P, GFR ####[address] [place], [place] [address] Triglyceride 135 40-150 mg/dL Normal 02-24-2018 [facility] ([place] (92898) Comment: Result Comment: Triglyceride Reference Interval:Less than 150 Oykecs658-663 Borderline high zzhk792-018 High pdng438 or higher Very high risk Performed By: #### LIPID, CM P, GFR ####[address] [place], [place] [address] cmp on 2018-02-24 Alanine aminotransferase (ALT) 18 10-35 IU/L Normal 02-24-2018 [facility] ([place]) (38968) Comment: Performed By: #### LIPID, CM P, GFR ####[address] [place], [place] [address] Albumin 4.2 3.4-4.8 G/dL Normal 02-24-2018 [facility]) (62686) Comment: Performed By: #### LIPID, CM P, GFR ####[address] [place], [place] [address] Albumin/Globulin Ratio 1.8 1.1-2.5 ratio Normal 018 [facility]) (0000 0) Comment: Performed By: #### LIPID, CM P, GFR ####[address] [place], [place] [address] Alk Phos 77 40-135 IU/L Normal 02-24-2018 [facility]) (08960) Comment: Performed By: #### LIPID, CM P, GFR ####[address] [place], [place] [address] Aspartate aminotransferase 18 10-40 IU/L Normal [facility] (21183) Comment: Performed By: #### LIPID, CM P, GFR ####[address] [place], [place] [address] Bili Total 0.7 0.2-1.0 mg/dL Normal 02-24-2018 [facility]) (48685) Comment: Performed By: #### LIPID, CM P, GFR ####[address] [place], [place] [address] BUN/Creatinine Ratio 15 7-27 ratio Normal 8 [facility]) (25917) Comment: Performed By: #### LIPID, CM P, GFR ####[address] [place], [place] [address] Calcium 9.6 8.4-10.2 mg/dL Normal 02-24-2018 [facility]) (11946) Comment: Performed By: #### LIPID, CM P, GFR ####[address] [place], [place] [address] Chloride 106 98-107 mEq/L Normal 02-24-2018 [facility] ([place] (43081) Comment: Performed By: #### LIPID, CM P, GFR ####[address] [place], [place] [address] CO2 26 23-31 mEq/L Normal 02-24-2018 [facility] ([place] (00104) Comment: Performed By: #### LIPID, CM P, GFR ####[address] [place], [place] [address] Creatinine 1.7 0.6-1.2 mg/dL High 02-24-2018 [facility] ([place]) (93173) Comment: Performed By: #### LIPID, CM P, GFR ####[address] [place], [place] [address] Electrolyte Balance 9.0 mEq/L Normal 02-24-2018 [facility] ([place]) (68490) Comment: Performed By: #### LIPID, CM P, GFR ####[address] [place], [place] [address] Globulin 2.4 G/dL Normal 02-24-2018 [facility] ([place] (41830) Comment: Performed By: #### LIPID, CM P, GFR ####[address] [place], [place] [address] Glucose mass conc 93 83-110 mg/dL Normal 02-24-2018 [facility] ([place]) (08104) Comment: Performed By: #### LIPID, CM P, GFR ####[address] [place], [place] [address] Potassium molar conc 4.7 3.5-5.1 mEq/L Normal 8 [facility] ([place]) (0000 0) Comment: Performed By: #### LIPID, CM P, GFR ####[address] [place], [place] [address] Protein 6.6 6.0-8.3 G/dL Normal 02-24-2018 [facility] ([place] (36904) Comment: Performed By: #### LIPID, CM P, GFR ####[address] [place], [place] [address] Sodium 141 136-146 mEq/L Normal 02-24-2018 [facility] ([place]) (59686) Comment: Performed By: #### LIPID, CM P, GFR ####[address] [place], [place] [address] Urea nitrogen 25.3 7.0-18.0 mg/dL High 02-24-2018 [facility] ([place]) (88445) Comment: Performed By: #### LIPID, CM P, GFR ####[address] [place], [place] [address] .gfr on 2018-02-24 eGFR (non-black) 38 ml/min/1.73sqm Normal 02-25-20 18 [facility] ([place]) (52217) Comment: Result Comment: GFR Populati on mean [...] By: #### LIPID, CM P, GFR ####[address] [place], [place] [address] eGFR (non-black) 46 ml/min/1.73sqm Normal 02-25-20 18 [facility] ([place]) (56545) Comment: Result Comment: GFR Populati on mean [...] By: #### LIPID, CM P, GFR ####[address] [place], [place] [address] lipid on 2017-09-08 Cholesterol 111 131-200 mg/dL Low 09-08-2017 [facility] ([place]) (08052) Comment: Result Comment: Cholesterol Reference Interval:Less than 200 Mtnacrllo174-731 Borderline high iqqz492 and above High risk Performed By: #### LIPID, CM P, GFR ####[address] [place], [place] [address] HDL Cholesterol 32 35-90 mg/dL Low 09-08-2017 [facility] ([place]) (53473) Comment: Result Comment: HDL Referenc e Interval:Less than 40 Low - high risk60 or above Optimal/lowers risk Performed By: #### LIPID, CM P, GFR ####[address] [place], [place] [address] LDL Cholesterol 57 0-130 mg/dL Normal 09-08-2017 [facility] ([place]) (85682) Comment: Result Comment: LDL is a christine culated result and requires a 12-hr fast.LDL Reference Interval:Less than 100 Dzbbjvw984-071 Near or above hvweadx405-506 Borderline high news783-881 High jlds220 and above Very high risk Performed By: #### LIPID, CM P, GFR ####[address] [place], [place] [address] Triglyceride 108 40-150 mg/dL Normal 09-08-2017 [facility] [place] (49307) Comment: Result Comment: Triglyceride Reference Interval:Less than 150 Yhsggb955-392 Borderline high uaqo914-154 High pdhr009 or higher Very high risk Performed By: #### LIPID, CM P, GFR ####[address] [place], [place] [address] cmp on 2017-09-08 Alanine aminotransferase (ALT) 11 10-35 IU/L Normal 09-08-2017 [facility] ([place]) (38447) Comment: Performed By: #### LIPID, CM P, GFR ####[address] [place], [place] [address] Albumin 4.1 3.4-4.8 G/dL Normal 09-08-2017 [facility]) (40024) Comment: Performed By: #### LIPID, CM P, GFR ####[address] [place], [place] [address] Albumin/Globulin Ratio 1.6 1.1-2.5 ratio Normal 017 [facility] ([place] (0000 0) Comment: Performed By: #### LIPID, CM P, GFR ####[address] [place], [place] [address] Alk Phos 87 40-135 IU/L Normal 09-08-2017 [facility]) (20495) Comment: Performed By: #### LIPID, CM P, GFR ####[address] [place], [place] [address] Aspartate aminotransferase 14 10-40 IU/L Normal [facility] (50564) Comment: Performed By: #### LIPID, CM P, GFR ####[address] [place], [place] [address] Bili Total 0.5 0.2-1.0 mg/dL Normal 09-08-2017 [facility]) (42270) Comment: Performed By: #### LIPID, CM P, GFR ####[address] [place], [place] [address] BUN/Creatinine Ratio 13 7-27 ratio Normal 7 [facility] ([place] (80154) Comment: Performed By: #### LIPID, CM P, GFR ####[address] [place], [place] [address] Calcium 9.3 8.4-10.2 mg/dL Normal 09-08-2017 [facility]) (35007) Comment: Performed By: #### LIPID, CM P, GFR ####[address] [place], [place] [address] Chloride 107 98-107 mEq/L Normal 09-08-2017 [facility] ([place] (06454) Comment: Performed By: #### LIPID, CM P, GFR ####[address] [place], [place] [address] CO2 27 23-31 mEq/L Normal 09-08-2017 [facility] ([place] (51188) Comment: Performed By: #### LIPID, CM P, GFR ####[address] [place], [place] [address] Creatinine 1.6 0.6-1.2 mg/dL High 09-08-2017 [facility] ([place]) (66178) Comment: Performed By: #### LIPID, CM P, GFR ####[address] [place], [place] [address] Electrolyte Balance 7.0 mEq/L Normal 09-08-2017 [facility] ([place]) (52995) Comment: Performed By: #### LIPID, CM P, GFR ####[address] [place], [place] [address] Globulin 2.5 G/dL Normal 09-08-2017 [facility] ([place] (03742) Comment: Performed By: #### LIPID, CM P, GFR ####[address] [place], [place] [address] Glucose mass conc 133 83-110 mg/dL High 09-08-2017 [facility] [place]) (46027) Comment: Performed By: #### LIPID, CM P, GFR ####[address] [place], [place] [address] Potassium molar conc 4.5 3.5-5.1 mEq/L Normal 7 [facility] ([place]) (0000 0) Comment: Performed By: #### LIPID, CM P, GFR ####[address] [place], [place] [address] Protein 6.6 6.0-8.3 G/dL Normal 09-08-2017 [facility] ([place] (36343) Comment: Performed By: #### LIPID, CM P, GFR ####[address] [place], [place] [address] Sodium 141 136-146 mEq/L Normal 09-08-2017 [facility] ([place] (85948) Comment: Performed By: #### LIPID, CM P, GFR ####[address] [place], [place] [address] Urea nitrogen 21.1 7.0-18.0 mg/dL High 09-08-2017 [facility] ([place]) (55027) Comment: Performed By: #### LIPID, CM P, GFR ####[address] [place], [place] [address] .gfr on 2017-09-08 eGFR (non-black) 42 ml/min/1.73sqm Normal 09-08-20 17 [facility] ([place]) (67472) Comment: Result Comment: GFR Populati on mean [...] By: #### LIPID, CM P, GFR ####[address] [place], [place] [address] eGFR (non-black) 51 ml/min/1.73sqm Normal 09-08-20 17 [facility] ([place]) (01246) Comment: Result Comment: GFR Populati on mean [...] By: #### LIPID, CM P, GFR ####[address] [place], [place] [address] office visit on 04-28-02 Documentation of Done Invalid Interpretation 08-20-2017 - [facility] current medications Code 08-20-2017 Group (95770) (procedure) clinical lists update on 2017-08-07 Left ventricular 53 % Invalid Interpretation 08-07-2017 - [facility] Ejection fraction Code 08-07-2017 [facility] (14858) lipid on 2017-05-07 Cholesterol 133 131-200 mg/dL Normal 05-07-2017 [facility] ([place]) (78591) Comment: Result Comment: Cholesterol Reference Interval:Less than 200 Lbfiqsydy540-112 Borderline high gbdj883 and above High risk Performed By: #### LIPID, CM P, GFR ####[address] [place], [place] [address] HDL Cholesterol 34 35-90 mg/dL Low 05-07-2017 [facility] ([place]) (58420) Comment: Result Comment: HDL Referenc e Interval:Less than 40 Low - high risk60 or above Optimal/lowers risk Performed By: #### LIPID, CM P, GFR ####[address] [place], [place] [address] LDL Cholesterol 71 0-130 mg/dL Normal 05-07-2017 [facility] ([place]) (53446) Comment: Result Comment: LDL is a christine culated result and requires a 12-hr fast.LDL Reference Interval:Less than 100 Ltxiyle847-565 Near or above -346 Borderline high qgmt564-503 High tgze171 and above Very high risk Performed By: #### LIPID, CM P, GFR ####[address] [place], [place] [address] Triglyceride 141 40-150 mg/dL Normal 05-07-2017 [facility] ([place] (68216) Comment: Result Comment: Triglyceride Reference Interval:Less than 150 Ritfco332-897 Borderline high okdv118-331 High ygxh851 or higher Very high risk Performed By: #### LIPID, CM P, GFR ####[address] [place], [place] [address] gfr on 2017-05-07 eGFR (non-black) 46 ml/min/1.73sqm Normal 05-07-[address] [place] [address] ([place]) (58527) Comment: Result Comment: GFR Populati on mean [...] By: #### LIPID, CM P, GFR ####[address] [place], [place] [address] eGFR (non-black) 56 ml/min/1.73sqm Normal 05-07-20 17 [facility] ([place]) (14409) Comment: Result Comment: GFR Populati on mean [...] #### LIPID, CM P, GFR ####[address] [place], [place] [address] cmp on 2017-05-07 Alanine aminotransferase (ALT) 13 10-35 ZZ Normal 05-07-2017 [facility] ([place]) (32582) Comment: Performed By: #### LIPID, CM P, GFR ####[address] [place], [place] [address] Albumin 4.5 3.4-4.8 G/dL Normal 05-07-2017 [facility] ([place] (97127) Comment: Performed By: #### LIPID, CM P, GFR ####[address] [place], [place] [address] Albumin/Globulin Ratio 1.7 1.1-2.5 ratio Normal 017 [facility] ([place]) (0000 0) Comment: Performed By: #### LIPID, CM P, GFR ####[address] [place], [place] [address] Alk Phos 91 40-135 ZZ Normal 05-07-2017 [facility] ([place]) (67240) Comment: Performed By: #### LIPID, CM P, GFR ####[address] [place], [place] [address] Aspartate aminotransferase 14 10-40 ZZ Normal [facility] ([place]) (78341) Comment: Performed By: #### LIPID, CM P, GFR ####[address] [place], [place] [address] Bili Total 0.6 0.2-1.0 mg/dL Normal 05-07-2017 [facility] ([place]) (48428) Comment: Performed By: #### LIPID, CM P, GFR ####[address] [place], [place] [address] BUN/Creatinine Ratio 13 7-27 ratio Normal 201 7 [facility] ([place]) (86171) Comment: Performed By: #### LIPID, CM P, GFR ####[address] [place], [place] [address] Calcium 9.6 8.4-10.2 mg/dL Normal 05-07-2017 [facility] ([place]) (75134) Comment: Performed By: #### LIPID, CM P, GFR ####[address] [place], [place] [address] Chloride 104 98-107 mEq/L Normal 05-07-2017 [facility] ([place]) (56792) Comment: Performed By: #### LIPID, CM P, GFR ####[address] [place], [place] [address] CO2 26 23-31 mEq/L Normal 05-07-2017 [facility] ([place]) (68156) Comment: Performed By: #### LIPID, CM P, GFR ####[address] [place], [place] [address] Creatinine 1.5 0.6-1.2 mg/dL High 05-07-2017 [facility] ([place]) (64602) Comment: Performed By: #### LIPID, CM P, GFR ####[address] [place], [place] [address] Electrolyte Balance 10.0 mEq/L Normal 05-07-2017 [facility] ([place]) (88693) Comment: Performed By: #### LIPID, CM P, GFR ####[address] [place], [place] [address] Globulin 2.6 G/dL Normal 05-07-2017 [facility] ([place]) (84663) Comment: Performed By: #### LIPID, CM P, GFR ####[address] [place], [place] [address] Glucose mass conc 145 83-110 mg/dL High 05-07-2017 [facility] ([place]) (31448) Comment: Performed By: #### LIPID, CM P, GFR ####[address] [place], [place] [address] Potassium molar conc 4.8 3.5-5.1 mEq/L Normal 7 [facility] ([place]) (0000 0) Comment: Performed By: #### LIPID, CM P, GFR ####[address] [place], [place] [address] Protein 7.1 6.0-8.3 G/dL Normal 05-07-2017 [facility]) (07456) Comment: Performed By: #### LIPID, CM P, GFR ####[address] [place], [place] [address] Sodium 140 136-146 mEq/L Normal 05-07-2017 [facility]) (22059) Comment: Performed By: #### LIPID, CM P, GFR ####[address] [place], [place] [address] Urea nitrogen 19.5 7.0-18.0 mg/dL High 05-07-2017 [facility] ([place]) (39983) Comment: Performed By: #### LIPID, CM P, GFR ####Bo[address] [place], [place] [address] append: cr referral on 2017-05-04 Clinical [id number]^03/11/2017 Invalid 05-04 - [facility] Interpretation 05-04-2017 H eart report (record Code Group artifact) ([id number]) replaced document: midmark ecg observati ons on 2017-03-11 BUN (urea nitrogen) Sinus Bradycardia Invalid - [place] -Incomplete left Interpretation 03-11-20 17 Heart bundle branch Code Group block. -Poor (14185) R-wave progression -may be secondary to conduction defect consider old anterior infarct. - Nonspecific T-abnormality. ABNORMAL EKG QRS axis 28 deg Invalid 03-11-2017 [facility] Interpretation 03-11-2017 Hear [facility] (58221) GE use only - for 473 ms Invalid 03-11-2017 - [facility] import when Interpretation Heart terms are not Code Group otherwise specified (36940) P [place] 50 deg Invalid 03-11-2017 - [place] Interpretation 03-11-2017 Hear [facility] (39521) P wave axis, 50 deg Invalid 03-11-2017 - [facility] electrocardiogram Interpretation 017 [facility] (05072) SC Interval 158 ms Invalid 03-11-2017 - [place] Interpretation 03-11-2017 [facility] (93434) SC interval, 158 ms Invalid 03-11-2017 [facility] electro[facility]ogram Interpretation 017 [facility] (23134) Protein mass conc Sinus Bradycardia Invalid 02-17 - [place] -Incomplete left Interpretation 03-11-20 Heart bundle branch Code Group block. -Poor (49263) R-wave progression -may be secondary to conduction defect consider old anterior infarct. - Nonspecific T-abnormality. ABNORMAL Pulse (Heart Rate) 58 BPM /min Invalid 03-11-2017 - [place] Interpretation 03-11-2017 Hear t [facility] (30742) QRS axis, 28 deg Invalid 03-11-2017 - [facility] electro[facility]ogram Interpretation 017 [facility] (23896) QRS Duration 116 ms Invalid 03-11-2017 [facility] Interpretation 03-11-2017 [facility] (16449) QRS duration, 116 ms Invalid 03-11-2017 - [place] [facility] electrocardiogram Interpretation 017 [facility] Code [facility] (22724) QT Interval new path ms Invalid 03-11-2017 - [place] [facility] Interpretation 03-11-2017 Hear t [facility] (48809) QT interval, new path ms Invalid 03-11-2017 - [place] electro[facility]ogram Interpretation 017 [facility] (80763) QTc [place] 473 ms Invalid 03-11-2017 - [place] Interpretation 03-11-2017 Hear t [facility] (38519) T [place] -28 deg Invalid 03-11-2017 - [facility] Interpretation 03-11-2017 Hear t Code Group (46161) T wave axis, -28 deg Invalid 03-11-2017 [facility] electro[facility]ogram Interpretation 017 [facility] Code [facility] (07451) office visit on 04-22-24 Documentation of Done Invalid Interpretation 03-11-2017 - [facility] current medications Code 03-11-2017 Group (33316) (procedure) Fall risk assessment Yes Invalid Interpretat ion 03-11-2017 - [facility] Code 03-11-2017 Group (44 691) Protein mass conc Done Invalid Interpretation 03-11-2017 - [facility] Code 03-11-2017 Group (44 971) clinical lists update: preload on 2017-02-05 Tobacco smoking Never smoker Invalid Interpretatio n 02-05-2017 - [facility] status NHIS Code 02-05-2017 Group ( 42653) Tobacco use Never smoker Invalid Interpretation - [facility] CPHS Code 02-05-2017 Group (44 341) lab report: prothrombin time w/inr on 2017-02-04 Coagulation tissue 20.0 SECONDS 11.7-14.9 High 02-05-20 17 - [facility] factor induced in 02-04-2017 [facility] (35553) platelet poor plasma coumadin management: warfarin calc on 2017-02-04 Coagulation tissue 20.0 s Invalid 02-04-2017 - [facility] factor induced in Interpretation Code [facility] Group platelet poor (52322 ) plasma INR Coag RelTime 1.8 {INR} Invalid 02-04-2017 - [place] (PPP) Interpretation Code 02-04-2017 [facility] Group (44897) INR in blood by 1.8 {INR} Invalid 02-04-2017 - [place] coagulation Interpretation Code 02-05-20 17 [facility] Group (07664) INR in blood by 2 to 3 Invalid 02-04-2017 - [place] coagulation Interpretation Code 02-05-20 17 [facility] Group (31261) INR in blood by Hospital lab Invalid 02-04-2017 - [place] coagulation Interpretation Code 02-05-20 17 [facility] Group (05118) international 2 to 3 Invalid 02-04-2017 - [place] [facility] normalized ratio Interpretation Code [facility] (INR) range (81491) Vital Signs Vital Sign Description Value / Unit Date Location The following section is limited to 5 en tries per type and includes entries from the following time range: 20170311 - [id number] 2. BMI (Body Mass Index) 24.81 kg/m2 08-20-2017 - 08-20-2017 [facility] (27208) BMI (Body Mass Index) 26.47 kg/m2 03-11-2017 - 03-11-2017 [facility] (18894) BP Diastolic 60 mm[Hg] 08-20-2017 - 08-20-2017 [facility] (22569) BP Diastolic 60 mm[Hg] 03-11-2017 - 03-11-2017 [facility] (28085) BP Systolic 104 mm[Hg] 08-20-2017 - 08-20-2017 [facility] (28964) BP Systolic 120 mm[Hg] 03-11-2017 - 03-11-2017 [facility] (89160) Heart rate 58 /min 03-11-2017 - 03-11-2017 [facility] (11515) Height 176.53 cm 08-20-2017 - 08-20-2017 [facility] (28384) Height 176.53 cm 03-11-2017 - 03-11-2017 [facility] (40403) Pulse (Heart Rate) 68 /min 08-20-2017 - 08-20-2017 [facility] (51224) Pulse (Heart Rate) 64 /min 03-11-2017 - 03-11-2017 [facility] (12152) Respiratory Rate 28 /min 03-11-2017 - 03-11-2017 [facility] (25534) Weight 77.34 kg 08-20-2017 - 08-20-2017 [facility] (84143) Weight 82.51 kg 03-11-2017 - 03-11-2017 [facility] (56013) Encounters Date Type Reason Provider Location 02-24-2018 - Ambulatory YUNG Willem JHOAN Facility:[facility] 03-01-2018 YUNG STAPLES [facility] 09-08-2017 - Ambulatory YUNG Willem STAPLES Facility:[facility] 09-13-2017 YUNG Willem [facility] 05-07-2017 Ambulatory Type 2 diabetes [facility] Facility :B mellitus without YUNG STAPLES complications Procedures Procedure Name Date Provider Location Follow Up Appt 6 months 08-20-2017 - Jason Lemus MD [facility] 08-20-2017 ([id number]) [facility] 08-20-2017 - Jason Lemus MD [facility] 08-20-2017 ([id number]) Follow Up Appt 6 months 03-11-2017 - [facility] 08-20-2017 ([id number]) MMM 03-11-2017 - [facility] 08-20-2017 ([id number]) INR in Platelet poor 02-03-2017 - [facility] plasma by Coagulation 02-04-2017 ([id number]) assay Coagulation factor 02-03-2017 - [facility] induced.INR assay in 02-04-2017 ([id number]) platelet poor plasma Plan of Treatment Plan Description Date Location Appointment Appointment 03-09-2018 - [facility] 03-09-2018 ([id number]) Follow Up Appt 6 months Follow Up Appt 6 months 08-20-2017 - [facility] 08-20-2017 ([id number]) R R 08-20-2017 - [facility] 08-20-2017 ([id number]) Appointment Appointment 08-20-2017 - [facility] 08-20-2017 ([id number]) Appointment Appointment 08-11-2017 - [facility] 08-11-2017 ([id number]) Appointment Appointment 08-11-2017 - [facility] 08-11-2017 ([id number]) Cardiac Rehab Rehab Cardiac Rehab Rehab 03-11-2017 - [facility], [facility], 17605-04-2017 ([id number]) [place], [place], [id number] EKG (In office) EKG (In office) 03-11-2017 - [facility] 03-11-2017 ([id number]) Follow Up Appt 6 months Follow Up Appt 6 months 03-11-2017 - [facility] 08-20-2017 ([id number]) [facility] 08-20-2017 ([id number]) Cardiac Rehab Rehab no information 03-11-2017 - [facility]61 05-04-2017 ([id number]) [place], [address] EKG (In office) EKG (In office) 03-11-2017 - [facility] 03-11-2017 ([id number]) Follow Up Appt 6 months Follow Up Appt 6 months 03-11-2017 - [facility] 03-11-2017 ([id number]) MMM MMM 03-11-2017 - [facility] 03-11-2017 ([id number]) *PT/INR - Standing Order *PT/INR - Standing Order 02-03-2017 - [facility] 02-04-2017 ([id number]) *PT/INR - Standing Order *PT/INR - Standing Order 02-03-2017 - [facility] 02-04-2017 ([id number]) Payers Payer Name Policy Number Renetta GILBERT [id number] [employer] ([place]) ([id number]) Summary Purpose Family History No Family History [...] BE BASED ON THE PRIMARY CLINICAL RECORDS. [facility] provides no warranty or guarantee of the accuracy or completeness of information in this document. UNRECOGNIZED CONTENT PROVIDED BELOW FOR UNRECOGNIZED SECTION No Status Records Found UNRECOGNIZED CONTENT PROVIDED BELOW FOR UNRECOGNIZED SECTION INFORMATION SOURCE DATE CREATED AUTHOR AUTHOR'S ORGANIZATIO N 04/07/2018 [employer] [facility] ([place]
== END ==
PROVIDERS: PCP Family Medicine; Referring Provider Physician Assistant Medical; Visit Provider Physician Assistant Medical
DX: E11.9 Type 2 diabetes mellitus without complications (principal); E78.5 Hyperlipidemia, unspecified; E55.9 Vitamin D deficiency, unspecified
CPT/HCPCS: 36415; 80053; 80061; 82306; 83036

== ENCOUNTER 2020-03-26 21:17 | Inpatient (IN) | payer MEDICARE, SELFPAY ==
[2020-03-13 10:48] VITALS: BMI 23.9
--- NOTE | 2020-03-26 21:21 | ED.RN ---
EN CALLED FOR EKG, PULLED OLD EKGS FOR
[2020-03-26 21:25] VITALS: BP 129/79; PULSE 94; RESP 20; TEMP 36.7; O2SAT 97; BMI 24.6
--- NOTE | 2020-03-26 21:46 | EKG12_ITS ---
Test Reason : CP Blood Pressure : / mmHG Vent. Rate : 100 BPM Atrial Rate : 091 BPM P-R Int : 000 ms QRS Dur : 134 ms QT Int : 342 ms P-R-T Axes : 000 008 184 degrees QTc Int : 441 ms Atrial fibrillation Left ventricular hypertrophy with QRS widening T wave abnormality, consider inferolateral ischemia Abnormal ECG Confirmed by DOMINIQUE MONTOYA, STARLA ([id number]), news assignment editor EIR TO ([id number]) on 03/27/2020 10:05:44 AM Referred By: Confirmed By:STARLA FOX MD
--- NOTE | 2020-03-26 21:50 | RAD_ITS ---
HISTORY: CP AND SOB ADDITIONAL HISTORY: None provided. TECHNIQUE: Frontal chest radiograph. Number of images including paperwork: 1 COMPARISON: 08/19/2019 FINDINGS: LUNGS AND PLEURA: Interstitial septal thickening. Blunting of the costophrenic angles compatible small pleural effusions. CARDIAC SILHOUETTE: Stably enlarged. MEDIASTINUM AND LOTUS: Stable. UPPER ABDOMEN: Unremarkable. SKELETON AND SOFT TISSUES: No acute findings. Degenerative changes. OTHER DEVICES AND HARDWARE: Sternal wires and surgical clips. RAD/Chest 1 View (Portable) IMPRESSION: Cardiomegaly with mild congestive changes. at 2215 Reported and signed by: Flory Powell MD Electronically Signed: Flory Powell MD at 22:15 EDT Tel , Service support ,
[2020-03-26 21:54] VITALS: O2SAT 98
[2020-03-26 21:57] LABS: Absolute Lymphocyte Count 2.22 X10^3/uL (0.83-4.51); Absolute Neutrophil Count 6.8 X10^3/uL (2.0-7.7); Basophil# 0.06 X10^3/uL; Basophil% 0.6 % (0-1); Eosinophil# 0.27 X10^3/uL; Eosinophils% 2.6 % (0-5); Hematocrit 47.5 % (40-54); Hemoglobin 15.6 g/dL (13.0-16.5); Lymphocyte # 2.22 X10^3/ul (4.0); Lymphocyte % 21.7 % (19-41); Mean Corp Hgb Conc 32.8 g/dL (32-36); Mean Corpuscular Hgb 29.8 pg (27.0-32.0); Mean Corpuscular Volume 90.8 fL (80-94); Mean Platelet Vol. 12.6 fl (6.2-12.0); Monocyte% 8.8 % (0-10); NRBC Flagged by Analyzer 0 % (0-5); Neutrophil # 6.76 X10^3/uL (2.7-7.7); Platelet Count 171 K/mm3 (150-450); RBC Distribution Width SD 42.1 fl (35.1-43.9); Red Blood Count 5.23 M/mm3 (4.6-6.2); White Blood Count 10.2 K/mm3 (4.4-11.0)
--- NOTE | 2020-03-26 22:05 | ED.VISSUMM ---
- ER Visit Summary Date of Service: 03/26/20 Chief Complaint: Chest pain, shortness of breath History of Present Illness: The patient is a 80 M with chest pain, shortness of breath. Patient states this started this morning. He complains of diffuse chest tightness. He states he is very short of breath which worsened with walking. He has felt intermittently diaphoretic today. He has nausea with no vomiting. He was seen at Dr. Lemus's office March 13, 2020. At that time he was in A. fib with RVR. Cardizem was and Eliquis were added. Plan was to cardiovert him in 3 weeks once anticoagulated. He also takes metoprolol 50 twice daily Lasix 40 twice daily. He states this is how he felt prior to his previous CABG. He is not a smoker. He states he has not felt well since his cardiology office visit. Physical Examination: Vitals are stable. Patient is afebrile. Alert no acute distress. HEENT exam is unremarkable. Neck is supple. Lungs are clear and equal bilaterally. Heart is irregularly irregular. Abdomen is soft nontender nondistended. Extremities are unremarkable. Skin is warm and dry. No focal neurologic deficit. Remainder of exam is unremarkable. Emergency Department Course and Treatment: EKG is A. fib rate of 100 with LVH. Patient was given aspirin, morphine, Zofran IV. Chest x-ray shows cardiomegaly with mild congestive changes. CBC unremarkable. Chemistries show sodium 133, glucose 368, BUN 33, creatinine 2.41. Troponin 0.165. Patient is chest pain-free on reevaluation. Discussed with Dr Lemus and the hospitalist for admission Disposition: Admission Impression: A. fib with RVR, chest pain, elevated troponin, CATE This note was generated with Hopper dictation software. It may contain incorrect words, spelling, and punctuation that were not noted in review of the chart prior to signing ED Disposition - Plan for ED Patient: Referrals: Abdoulaye Brock MD [Primary Care Provider] -
[2020-03-26] MEDS: Ondansetron 4 MG/2 ML Vial IV (22:10)
[2020-03-26] MEDS: Aspirin 81 MG TAB.CHEW 324 MG PO (22:12)
[2020-03-26] MEDS: Morphine 4 MG/ML Syringe IV (22:13)
[2020-03-26 22:17] VITALS: BP 123/85; PULSE 97; RESP 28; O2SAT 97
[2020-03-26 22:22] LABS: Anion Gap 8 (5-15); BUN 33 mg/dL (7-18); BUN/Creat Ratio 13.7 RATIO (10-20); Calcium,Total 9.5 mg/dL (8.5-10.1); Chloride 99 mmol/L (98-107); Creatinine, Serum 2.41 mg/dL (0.70-1.30); EST Glomerular Filtration Rate 28 mL/min (>60); Est Glom Filt Rate - Afr Amer 33 mL/min (>60); Estimated Creatinine Clearance 23.63 ml/min; Glucose 368 mg/dL (74-106); Potassium 4.7 mmol/L (3.5-5.1); Sodium Level 133 mmol/L (136-145)
--- NOTE | 2020-03-26 23:04 | HP.PCM_ITS ---
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 Qualifiers: Comment: CABG x 4 COLES to LAD, SVG to diagonal, SVG to proximal end of SVG to diagonal going to OM 2, and SVG to PDA 10/30/16 (3) History of non-ST elevation myocardial infarction (NSTEMI) Status: Resolved (4) H/O coronary artery bypass surgery Status: Chronic Comment: CABG x 4: COLES-LAD, SVG-D1, SVG to proximal end of SVG to diagonal going to OM 2, and SVG-RPDA 10/30/16 (5) Ischemic cardiomyopathy Status: Chronic (6) Essential (primary) hypertension Status: Chronic (7) Hyperlipidemia Status: Chronic Qualifiers: History of Present Illness Date of Admission: 03/26/20 Chief Complaint: chest pain The patient is a 80 year old patient with a significant past medical history of coronary artery disease status post 5 vessel CABG 2 years ago who presents to the emergency room with chest pain shortness of breath. Patient was recently seen by his umbrella mender Dr. Lemus and diagnosed with atrial fibrillation with RVR. He has already been on metoprolol and was placed on Cardizem and Eliquis for 3 weeks prior to a planned cardioversion. This evening the patient became more short of breath and felt weak with chest pain. His troponin is currently 0.165 and his creatinine is 2.4. His chest pain was substernal, nonradiating in nature and felt similar to his chest pain prior to his CABG 3 years ago. This was relieved by morphine in the emergency room. He will be admitted to the cardiac floor for further work-up. 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) Diastolic dysfunction (Chronic) Secondary pulmonary arterial hypertension (Chronic) Paroxysmal atrial fibrillation (Chronic) Left bundle branch block (LBBB) (Chronic) Essential (primary) hypertension (Chronic) Hyperlipidemia (Chronic) Medical History: Medical History (Last Updated 03/13/20 @ 11:23 by CARLENE Porter) Atrial fibrillation (Acute) I48.91 Atherosclerosis of coronary artery of [place] heart with angina pectoris (Chronic) I25.119 CABG x 4 COLES to LAD, SVG to diagonal, SVG to proximal end of SVG to diagonal going to OM 2, and SVG to PDA 10/30/16 History of non-ST elevation myocardial infarction (NSTEMI) (Resolved) Onset Date: 05/2017 I25.2 Ischemic cardiomyopathy (Chronic) I25.5 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) I50.43 Diastolic dysfunction (Chronic) I51.89 Secondary pulmonary arterial hypertension (Chronic) I27.21 Paroxysmal atrial fibrillation (Chronic) I48.0 Left bundle branch block (LBBB) (Chronic) I44.7 Essential (primary) hypertension (Chronic) I10 Hyperlipidemia (Chronic) E78.5 Barretts esophagus K22.70 Bilateral pleural effusion Onset Date: 11/2019 J90 CKD (chronic kidney disease) N18.9 Prostate cancer C61 Transient ischemic attack G45.9 Type 2 diabetes mellitus E11.9 Acute respiratory failure with hypoxemia (Resolved) J96.01 Dyspnea on exertion (Resolved) R06.09 Shortness of breath (Resolved) R06.02 Allergies spironolactone Allergy (Verified 03/26/20 21:31) severe weakness lisinopril Adverse Reaction (Mild, Verified 03/26/20 21:31) Dry cough Home Medications: Ambulatory Orders Medication Instructions Recorded cholecalciferol (vitamin D3) 125 5,000 unit PO DAILY 02/16/19 mcg (5,000 unit) capsule albuterol sulfate 90 mcg/actuation 1 puff INHALATION Q6H 09/26/19 aerosol inhaler glimepiride 4 mg tablet 4 mg PO BID tab 09/26/19 tiotropium bromide 2.5 2 puff INHALATION DAILY PRN 09/26/19 mcg/actuation mist for inhalation isosorbide mononitrate 30 mg 30 mg PO DAILY #90 tab 01/16/20 tablet,extended release 24 hr apixaban 2.5 mg tablet 2.5 mg PO BID #60 tab 03/10/20 diltiazem HCl 120 mg 120 mg PO DAILY #30 cap 03/13/20 capsule,extended release 24 hr metoprolol tartrate 50 mg tablet 50 mg PO BID #180 tab 03/13/20 furosemide 40 mg tablet 40 mg PO BID #135 tab 03/19/20 potassium chloride 20 mEq 20 meq PO DAILY #34 tab 03/19/20 tablet,extended release Atorvastatin Calcium [Lipitor] 50 mg PO BID 03/26/20 Surgical History: Surgical History (Last Reviewed 03/13/20 @ 11:22 by CARLENE Porter) H/O coronary artery bypass surgery (Chronic) Onset Date: 10/30/16 Z95.1 CABG x 4: COLES-LAD, SVG-D1, SVG to proximal end of SVG to diagonal going to OM 2, and SVG-RPDA 10/30/16 History of colonoscopy Z98.890 History of dental surgery Z92.89 History of esophagogastroduodenoscopy (EGD) Z98.890 History of left heart catheterization Onset Date: 07/23/18 Z98.890 [place] History of prostatectomy Z90.79 Surgical History: coronary bypass surgery Smoking Status: Never smoker - *Family History Paternal Family History: Family History (Last Reviewed 03/13/20 @ 11:22 by CARLENE Porter) Sister Diabetes Sister Colon cancer Diabetes CVA (cerebral vascular accident) Sister Diabetes Brother Heart disease Diabetes History Items: No pertinent history Review of Systems Constitutional: Denies: Chills, Fever, Weight Change HEENT: Denies: Head Aches, Sinus Congestion, Sinus Drainage Cardiovascular: Reports: Chest Pain. Denies: Palpitations Respiratory: Reports: Shortness of breath at rest. Denies: Cough, Sputum production Gastrointestinal: Denies: Abdominal Pain, Nausea, Vomiting Genitourinary: Denies: Dysuria Musculoskeletal: Denies: Joint Pain, Joint Tenderness Skin: Denies: Rash, Wounds Neurological: Denies: Numbness, Tingling, Focal weakness Psychiatric: Reports: Anxiety. Denies: Depression, Homicidal Ideations, Suicidal Ideations Hematologic/ Lymphatic: Denies: Easy Bruising, Easy Bleeding VTE Information - Inpt Only VTE Present on Admission: No VTE Mechan Device Prophylaxis: None VTE Pharm Prophylaxis ordered?: No - Physical Exam Vitals/I&O's: Vital Signs Temp Pulse Resp BP Pulse Ox 98.0 F 97 28 H 123/85 H 97 03/26/20 21:25 03/26/20 22:17 03/26/20 22:17 03/26/20 22:17 03/26/20 22:17 Oxygen Flow Rate (L/min) 2 Oxygen Delivery Method Nasal Cannula Weight: 166 lb 14.239 oz Body Mass Index (BMI) 24.6 General: Alert, Oriented x3, Cooperative HEENT: Atraumatic, Normocephalic Neck: Supple Lungs: Clear to auscultation, Normal air movement Cardiovascular: Normal S1, Normal S2, No murmurs, Irregular Rate, Tachycardic Abdomen: Bowel Sounds Present, Soft, Non Tender Extremities: No edema Skin: No rashes Musculoskeletal: No Tenderness to Palpation of Joints or Extremities Neurological: Neuro grossly intact Psych/Mental Status: Normal Affect, Appropriate Laboratory Results 03/26/20 21:30: WBC 10.2, RBC 5.23, Hgb 15.6, Hct 47.5, MCV 90.8, MCH 29.8, MCHC 32.8, RDW Std Deviation 42.1, RDW Coeff of [place] 13.0, Plt Count 171, MPV 12.6 H, Immature Gran % (Auto) 0.300, Neut % (Auto) 66.0, Lymph % (Auto) 21.7, [place] % (Auto) 8.8, Eos % (Auto) 2.6, Baso % (Auto) 0.6, Absolute Neuts (auto) 6.8, Absolute Lymphs (auto) 2.22, Nucleated RBC % 0 03/26/20 21:30: Sodium 133 L, Potassium 4.7, Chloride 99, Carbon Dioxide 26.0, Anion Gap 8, BUN 33 H, Creatinine 2.41 H, Estim Creat Clear Calc 23.63, Est GFR (MDRD) Af Amer 33 L, Est GFR (MDRD) Non-Af 28 L, BUN/Creatinine Ratio 13.7, Glucose 368 H, Calcium 9.5, Troponin I 0.165 H Assessment/Plan All Active Problems (Last Updated 03/13/20 @ 11:23 by CARLENE Porter) Atrial fibrillation (Acute) History of non-ST elevation myocardial infarction (NSTEMI) (Resolved 05/2017) Acute respiratory failure with hypoxemia (Resolved) Dyspnea (Resolved) Dyspnea on exertion (Resolved) Shortness of breath (Resolved) Chronic Problems (Last Updated 03/13/20 @ 11:23 by CARLENE Porter) Atherosclerosis of coronary artery of [place] heart with angina pectoris (Chronic ) CABG x 4 COLES to LAD, SVG to diagonal, SVG to proximal end of SVG to diagonal going to OM 2, and SVG to PDA 10/30/16 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) CABG x 4: COLES-LAD, SVG-D1, SVG to proximal end of SVG to diagonal going to OM 2, and SVG-RPDA 10/30/16 Ischemic cardiomyopathy (Chronic) 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 Chest pain?admit to PCU, morphine as needed for pain, oxygen, nitroglycerin, aspirin per routine we will order Lexiscan for the a.m. and cardiac consult with Dr. Lemus. 2. Atrial fibrillation?continue rate control and Eliquis 3. Hyperlipidemia?continue statin 4. DVT prophylaxis?patient is anticoagulated on Eliquis 5. Renal failure?gentle IV hydration with normal saline overnight reevaluate BMP in the morning Patient wishes to be full code at this time Inpatient E&M: [id number] Init Hosp L3
[2020-03-26 23:51] VITALS: BP 124/78; PULSE 78; RESP 22; TEMP 36.7; O2SAT 98
[2020-03-27] VITALS (19 sets, daily range): BP systolic 94–126; BP diastolic 64–80; PULSE 65–120; RESP 16–18; TEMP 36.4–36.9; O2SAT 96–100; BMI 24.1
--- NOTE | 2020-03-27 00:20 | EKG12_ITS ---
Test Reason : CP ADMIT Blood Pressure : / mmHG Vent. Rate : 086 BPM Atrial Rate : 070 BPM P-R Int : 000 ms QRS Dur : 138 ms QT Int : 436 ms P-R-T Axes : 000 010 191 degrees QTc Int : 521 ms Atrial fibrillation Non-specific intra-ventricular conduction block T wave abnormality, consider inferolateral ischemia Abnormal ECG Confirmed by DOMINIQUE MONTOYA, STARLA ([id number]), video tape editor JR SEVERINO ([id number]) on 04/03/2020 9:51:41 AM Referred By: DR CAR Confirmed By:STARLA FOX MD
[2020-03-27] MEDS: Ondansetron 4 MG/2 ML Vial IV ×2 (00:29→18:15)
[2020-03-27] MEDS: 0.9% Normal Saline 1,000 ML 50 ML IV (00:29)
--- NOTE | 2020-03-27 02:05 | NURSING ---
Dr. Key notified of second troponin of 0.120. No new orders.
[2020-03-27 04:04] LABS: Anion Gap 8 (5-15); BUN 35 mg/dL (7-18); BUN/Creat Ratio 17.2 RATIO (10-20); Calcium,Total 8.7 mg/dL (8.5-10.1); Chloride 98 mmol/L (98-107); Creatinine, Serum 2.03 mg/dL (0.70-1.30); EST Glomerular Filtration Rate 34 mL/min (>60); Est Glom Filt Rate - Afr Amer 41 mL/min (>60); Estimated Creatinine Clearance 28.06 ml/min; Glucose 349 mg/dL (74-106); Magnesium 1.7 mg/dL (1.6-2.6); Potassium 3.6 mmol/L (3.5-5.1); Sodium Level 134 mmol/L (136-145)
[2020-03-27 06:50] LABS: Bedside Glucose 311 mg/dL (70-110)
[2020-03-27] MEDS: Ipratropium/Albuterol Sulfate 3 ML AMPUL.NEB INHALATION ×2 (06:57→13:12)
--- NOTE | 2020-03-27 08:08 | CON.PCM_ITS ---
Reason for Consult Date of Consultation: 03/27/20 Reason for Consultation: Shortness of breath History of Present Illness: The patient is a 80 year old M with a history of coronary artery disease status post previous ST elevation myocardial infarction in October 2016. It resulted in a bypass surgery with a left internal mammary artery to the left anterior descending artery, saphenous vein graft to the diagonal branch, saphenous vein graft to the obtuse marginal branch from the diagonal, and saphenous vein graft to the posterior descending artery. In addition he has a history of hypertension hyperlipidemia and previous cerebrovascular accident. He has been complaining of shortness of breath since October he says. He was in [place] he complained of the same he went into an emergency room there he was evaluated he ruled out for myocardial infarction and underwent stress testing which demonstrated no evidence of ischemia but evidence of previous infarct. Since coming back up he has continued to complain of shortness of breath he was noted to be in atrial fibrillation with a rapid ventricular response rate and he was seen in the office by the nurse practitioner his beta-kelsey was adjusted and diltiazem was also added. He presented to the emergency room yesterday complaining of the same. He says that he really has not gotten better since October. [] His EKG demonstrated atrial fibrillation with a controlled ventricular response rate. He has not had any chest pain per se. He denies any pedal edema. He has been compliant with his medications. Past Medical History Allergies/Adverse Reactions: Allergies spironolactone Allergy (Verified 03/26/20 21:31) severe weakness lisinopril Adverse Reaction (Mild, Verified 03/26/20 21:31) Dry cough Home Medications: Ambulatory Orders Medication Instructions Recorded cholecalciferol (vitamin D3) 125 5,000 unit PO DAILY 02/16/19 mcg (5,000 unit) capsule albuterol sulfate 90 mcg/actuation 1 puff INHALATION Q6H 09/26/19 aerosol inhaler glimepiride 4 mg tablet 4 mg PO BID tab 09/26/19 tiotropium bromide 2.5 2 puff INHALATION DAILY PRN 09/26/19 mcg/actuation mist for inhalation isosorbide mononitrate 30 mg 30 mg PO DAILY #90 tab 01/16/20 tablet,extended release 24 hr apixaban 2.5 mg tablet 2.5 mg PO BID #60 tab 03/10/20 diltiazem HCl 120 mg 120 mg PO DAILY #30 cap 03/13/20 capsule,extended release 24 hr metoprolol tartrate 50 mg tablet 50 mg PO BID #180 tab 03/13/20 furosemide 40 mg tablet 40 mg PO BID #135 tab 03/19/20 potassium chloride 20 mEq 20 meq PO DAILY #34 tab 03/19/20 tablet,extended release Atorvastatin Calcium [Lipitor] 50 mg PO BID 03/26/20 Past Medical History (Chronic Problems): Chronic Problems (Last Updated 03/13/20 @ 11:23 by CARLENE Porter) Atherosclerosis of coronary artery of [place] heart with angina pectoris (Chronic) CABG x 4 COLES to LAD, SVG to diagonal, SVG to proximal end of SVG to diagonal going to OM 2, and SVG to PDA 10/30/16 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) CABG x 4: COLES-LAD, SVG-D1, SVG to proximal end of SVG to diagonal going to OM 2, and SVG-RPDA 10/30/16 Ischemic cardiomyopathy (Chronic) 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) Diastolic dysfunction (Chronic) Secondary pulmonary arterial hypertension (Chronic) Paroxysmal atrial fibrillation (Chronic) Left bundle branch block (LBBB) (Chronic) Essential (primary) hypertension (Chronic) Hyperlipidemia (Chronic) Surgical History: coronary bypass surgery - *Family History Paternal Family History: Family History (Last Reviewed 03/13/20 @ 11:22 by CARLENE Porter) Sister Diabetes Sister Colon cancer Diabetes CVA (cerebral vascular accident) Sister Diabetes Brother Heart disease Diabetes History Items: No pertinent history Smoking Status: Never smoker Alcohol: None Drugs: None Review of Systems - Review of Systems General: Reports: Fatigue, Malaise. Denies: Fever, Night Sweats HEENT: Denies: Vision Change Cardiovascular: Reports: Shortness of Breath, Shortness of Breath at Rest, Shortness of Breath with Exertion. Denies: Chest Discomfort, Orthopnea, PND, Peripheral Edema, Palpitations, Lightheadedness, Dizziness, Near Syncope, Syncope Respiratory: Denies: Cough, Sputum Production, Hemoptysis Gastrointestinal: Denies: Hematemesis, Hematochezia, Melena Genitourinary: Denies: Dysuria, Hematuria Muscoloskeletal: Denies: Myalgias Skin: Denies: Rash Neurological: Denies: Dizziness Psychiatric: Reports: Depression. Denies: Anxiety Endocrine: Denies: Heat Intolerance Hematologic/ Lymphatic: Denies: Anemia Subjectve: Pleasant gentleman in no distress. Rather flat affect. Objective: Vital Signs Temp Pulse Resp BP Pulse Ox 98.1 F 86 16 109/80 99 03/27/20 03:15 03/27/20 06:57 03/27/20 06:57 03/27/20 03:15 03/27/20 06:57 Oxygen Flow Rate (L/min) 2 Oxygen Delivery Method Nasal Cannula Weight: 163 lb 9.328 oz Body Mass Index (BMI) 24.1 Intake and Output for Last 24 Hours 03/25/20 03/26/20 03/27/20 23:59 23:59 23:59 Intake Total 300 / 300 Output Total 200 / 200 Balance 100 / 100 General: Awake, Alert, Oriented x 3 HEENT: PERRL, EOMI, Sclera Non Icteric Neck: Supple, Good ROM, No Lymph Node Enlargement Lungs: Diminished Rj Bases Cardiovascular: Irregular Rhythm, Normal S1, Normal S2, No Murmurs, No Rubs, No Gallops Vascular: No Carotid Bruits, Normal Femoral Pulses, Normal Radial Pulses, Normal Dorsalis Pedal Pulse, Normal Posterior Tibial Pulses Abdomen: Bowel Sounds Present, Soft, Non Tender, No HSM, No Organomegaly Extremities: No Cyanosis, No Clubbing, No edema Musculoskeletal: No Erythema Skin: No Rashes Lymphatic: No Lymph Node Enlargement Neurological: No Focal Motor or Sensory Deficit Psych/Mental Status: Appropriate 03/26/20 21:30: WBC 10.2, RBC 5.23, Hgb 15.6, Hct 47.5, MCV 90.8, MCH 29.8, MCHC 32.8, Plt Count 171, MPV 12.6 H, Immature Gran % (Auto) 0.300, Neut % (Auto) 66.0, Lymph % (Auto) 21.7, [place] % (Auto) 8.8, Eos % (Auto) 2.6, Baso % (Auto) 0.6, Absolute Neuts (auto) 6.8, Nucleated RBC % 0 03/26/20 21:30: Sodium 133 L, Potassium 4.7, Chloride 99, Carbon Dioxide 26.0, Anion Gap 8, BUN 33 H, Creatinine 2.41 H, Est GFR (MDRD) Af Amer 33 L, Est GFR (MDRD) Non-Af 28 L, BUN/Creatinine Ratio 13.7, Glucose 368 H, Calcium 9.5, Troponin I 0.165 H 03/27/20 00:41: Troponin I 0.120 H 03/27/20 03:42: Sodium 134 L, Potassium 3.6, Chloride 98, Carbon Dioxide 28.0, Anion Gap 8, BUN 35 H, Creatinine 2.03 H, Est GFR (MDRD) Af Amer 41 L, Est GFR (MDRD) Non-Af 34 L, BUN/Creatinine Ratio 17.2, Glucose 349 H, Calcium 8.7, Magnesium 1.7 03/27/20 03:42: Troponin I 0.143 H Rhythm: EKG: Atrial fibrillation with a controlled ventricular response rate. ECHO: Recent echocardiogram demonstrates ejection fraction of 45%. Stress Test: From [place] in November 2019 demonstrates no evidence of ischemia. Previous inferior infarct and inferoseptal infarct noted. Inferolateral infarct also noted Cardiac Cath: Cardiac catheterization from July 2018 demonstrated a patent COLES to the LAD, saphenous vein graft to the right coronary artery was patent, saphenous vein graft to the first diagonal branch was patent, and saphenous vein graft to obtuse marginal branch was patent. Severe [place] vessel disease was noted. PCI: CT Surgery: Holter monitor: EPS: PPM: CXR: Chest CT Scan: Assessment/Plan 1. Shortness of breath * The above is likely secondary to diastolic dysfunction. His echocardiogram demonstrated an ejection fraction of 45% with stage III diastolic dysfunction. I doubt that this is secondary to coronary ischemia. He did have minimal troponin elevation but I will suggest that we repeat his myocardial perfusion scan and unless this demonstrates significant ischemic territory would continue to manage him with medication. * I would like us to obtain an natruretic peptide to see and adjust his diuretics based on the above. 2. Coronary artery disease * He does have known coronary artery disease as evidenced above. His last catheterization a year and a half ago demonstrated patency of his bypass grafts. He has no acute EKG changes and I would recommend that we continue to manage him with risk factor modification. * If his stress test is negative I would recommend the addition of Ranexa to his regimen 3. Atrial fibrillation * His ventricular response rate does not appear to be very well controlled. I would like us to increase his beta-kelsey, continue his Eliquis for better rate control and will see whether this would help improve his symptoms * 4. Hypertension * Good control he will continue the same medications with appropriately changed doses. * 5. Risk factor modification * He will continue with appropriate risk factor modification. He does in addition appear to be mildly depressed and this may need to be addressed. * * Thank you for allowing me to participate in the care of your patient. Please don't hesitate to call if any issues arise.
[2020-03-27] MEDS: Aspirin E.C. 325 MG Tablet PO (08:10)
[2020-03-27] MEDS: 0.9% Saline Lock 10 ML Syringe IV ×2 (10:24→18:16)
[2020-03-27] MEDS: Glimepiride 4 MG Tablet PO ×2 (10:32→16:23)
[2020-03-27] MEDS: dilTIAZem CD 120 MG Capsule PO (10:32)
[2020-03-27] MEDS: Metoprolol Tartrate 50 MG Tablet PO (10:32)
[2020-03-27] MEDS: Isosorbide Mononitrate 30 MG Tablet PO (10:33)
[2020-03-27] MEDS: Ranolazine 500 MG Tablet PO ×2 (10:33→21:44)
--- NOTE | 2020-03-27 11:46 | NURSING ---
This RN updated pt's via phone.
--- NOTE | 2020-03-27 12:08 | STRESSREP ---
Stress Test Report Pharmacologic myocardial perfusion stress test. 80-year-old man with a history of atrial fibrillation and a cardiomyopathy. Stress protocol: Resting EKG demonstrates atrial fibrillation with a rate of 106 bpm. Left bundle branch block pattern is noted. The resting blood pressure was 114/70 mmHg. 0.4 mg of regadenoson was infused per usual protocol followed by rapid intravenous saline flush injection. Continuous EKG monitoring was performed. The maximum heart rate attained was 120 bpm which was 86% of maximum predicted heart rate. The maximum workload was 1 metabolic equivalent. The resting blood pressure was 114/70 with a final blood pressure 102/68 mmHg. Myocardial perfusion protocol. 12.0 mCi of technetium 99m sestamibi was injected at rest. 0.4 mg of regadenoson was infused per usual protocol peak infusion 36.0 mCi of technetium 99m sestamibi was injected stress and rest images were reconstructed and compared in the short axis vertical and horizontal long axis. Gated images were also obtained. Review of the stress images demonstrate normal uptake of tracer noted in all areas of the myocardium. The basal inferior wall appears to have reduced perfusion on the stress and rest images suggestive of a basal previous inferior infarct. Gated SPECT analysis: The gated ejection fraction is 29%. Conclusion: Cardiomyopathy. Normal pharmacologic myocardial perfusion stress test.
--- NOTE | 2020-03-27 12:17 | PN_ITS ---
<Odilia Mcmullen - Last Filed: 03/27/20 12:38> Subjective: Patient seen and examined. Denies chest pain or shortness of breath. Patient states he is very active and over the past several months has been getting fatigued very easily. More recently has been getting short of breath with minimal activity. Patient reports he is feeling depressed as he is not able to do what he wants to do and likes to be busy. - Physical Exam Vitals/I&O's: Vital Signs Temp Pulse Resp BP Pulse Ox 98.1 F 120 H 18 107/64 98 03/27/20 10:21 03/27/20 10:41 03/27/20 10:21 03/27/20 10:21 03/27/20 10:21 Oxygen Flow Rate (L/min) 2 Oxygen Delivery Method Nasal Cannula Weight: 163 lb 9.328 oz Body Mass Index (BMI) 24.1 Intake and Output for Last 24 Hours 03/25/20 03/26/20 03/27/20 23:59 23:59 23:59 Intake Total 700 / 700 Output Total 600 / 600 Balance 100 / 100 General: Alert, Oriented x3, Cooperative HEENT: Atraumatic, PERRLA, EOMI, Normocephalic Neck: Supple, No JVD, Negative Carotid Bruits Lungs: Clear to auscultation, Diminished Cardiovascular: - - Atrial fibrillation, rate controlled Abdomen: Bowel Sounds Present, Soft, Non Tender Extremities: No clubbing, No cyanosis, No edema, Capillary Refill Less than 3 Seconds Skin: No rashes, No breakdown Musculoskeletal: No Tenderness to Palpation of Joints or Extremities Neurological: Cranial nerves II-XII grossly intact, Neuro grossly intact Psych/Mental Status: Normal Affect, Appropriate Laboratory Results 03/26/20 21:30: WBC 10.2, RBC 5.23, Hgb 15.6, Hct 47.5, MCV 90.8, MCH 29.8, MCHC 32.8, RDW Std Deviation 42.1, RDW Coeff of Shashank 13.0, Plt Count 171, MPV 12.6 H, Immature Gran % (Auto) 0.300, Neut % (Auto) 66.0, Lymph % (Auto) 21.7, [place] % (Auto) 8.8, Eos % (Auto) 2.6, Baso % (Auto) 0.6, Absolute Neuts (auto) 6.8, Absolute Lymphs (auto) 2.22, Nucleated RBC % 0 03/26/20 21:30: Sodium 133 L, Potassium 4.7, Chloride 99, Carbon Dioxide 26.0, Anion Gap 8, BUN 33 H, Creatinine 2.41 H, Estim Creat Clear Calc 23.63, Est GFR (MDRD) Af Amer 33 L, Est GFR (MDRD) Non-Af 28 L, BUN/Creatinine Ratio 13.7, Glucose 368 H, Calcium 9.5, Troponin I 0.165 H 03/27/20 00:41: Troponin I 0.120 H 03/27/20 03:42: Sodium 134 L, Potassium 3.6, Chloride 98, Carbon Dioxide 28.0, Anion Gap 8, BUN 35 H, Creatinine 2.03 H, Estim Creat Clear Calc 28.06, Est GFR (MDRD) Af Amer 41 L, Est GFR (MDRD) Non-Af 34 L, BUN/Creatinine Ratio 17.2, Glucose 349 H, Calcium 8.7, Magnesium 1.7 03/27/20 03:42: Troponin I 0.143 H 03/27/20 06:35: POC Glucose 311 H Current Medications Albuterol/Ipratropium (Duoneb) 3 ml INHALATION Q6HWA.RT [facility] Last Admin: 03/27/20 06:57 Dose: 3 ml Documented by: Apixaban (Eliquis) 2.5 mg PO BID [facility] Aspirin (Ecotrin) 325 mg PO DAILY@0800 [facility] Last Admin: 03/27/20 08:10 Dose: 325 mg Documented by: Atorvastatin Calcium (Lipitor) 40 mg PO QHS [facility] Cholecalciferol (Vitamin D (25mcg)) 5,000 unit PO DAILY [facility] Last Admin: 03/27/20 10:31 Dose: 5,000 unit Documented by: Furosemide (Lasix) 40 mg IV BID@1000,1800 [facility]l) [facility] Last Admin: 03/27/20 10:32 Dose: 4 mg Documented by: Sodium Chloride () 1,000 mls @ 50 mls/hr IV .Q20H [facility] Last Admin: 03/27/20 00:29 Dose: 50 mls/hr Documented by: Isosorbide Mononitrate (Imdur) 30 mg PO DAILY [facility] Last Admin: 03/27/20 10:33 Dose: 30 mg Documented by: Metoprolol Tartrate (Lopressor (Beta Ivy)) 100 mg PO BID [facility] Morphine Sulfate () 4 mg IV Q3H PRN PRN PRN Reason: Pain Score 6-10/10 Nitroglycerin (Nitrostat) 0.4 mg SUBLINGUAL Q5M PRN PRN Reason: CARDIAC/CHEST PAIN Ondansetron HCl (Zofran) 4 mg IV Q8H PRN PRN PRN Reason: NAUSEA/VOMITING Last Admin: 03/27/20 00:29 Dose: 4 mg Documented by: Potassium Chloride (K-Dur) 20 meq PO DAILY [facility] Last Admin: 03/27/20 10:32 Dose: 20 meq Documented by: Ranolazine (Ranexa) 500 mg PO BID [facility] Last Admin: 03/27/20 10:33 Dose: 500 mg Documented by: Sodium Chloride () 10 - 40 ml IV UD PRN PRN Reason: SALINE FLUSH Last Admin: 03/27/20 10:24 Dose: 10 ml Documented by: Medical Necessity - Tobacco Use Smoking Status: Never smoker Assessment/Plan All Active Problems (Last Updated 03/13/20 @ 11:23 by CARLENE Porter) Atrial fibrillation (Acute) History of non-ST elevation myocardial infarction (NSTEMI) (Resolved 05/2017) Acute respiratory failure with hypoxemia (Resolved) Dyspnea (Resolved) Dyspnea on exertion (Resolved) Shortness of breath (Resolved) 1. Acute on chronic heart failure with reduced ejection fraction/Ischemic cardiomyopathy-BNP pending. Chest x-ray admission with mild CHF. Echocardiogram February 2020 demonstrated an EF 45%, stage III diastolic dysfunction, pulmonary artery systolic pressure 44 mmHg. Patient underwent nuclear stress test this morning which showed gated ejection fraction 29%, no evidence of ischemia, cardiomyopathy. Strict I&O. Daily weight. Cardiology following. Placed on Ranexa. 2. Acute kidney injury on chronic kidney disease stage III-Creatinine improving despite IV Lasix. Trend BMP. 3. Recent onset atrial fibrillation-noted during cardiology office visit 03/13/2020. Plan was for cardioversion following 3 weeks of anticoagulation. Metoprolol increased to 100 mg twice daily. Cardizem discontinued. 4. CAD with history of CABG-stress test without ischemia. Continue Eliquis, statin, metoprolol, isosorbide. 5. History of CVA-statin, Eliquis. 6. Type 2 diabetes mellitus-continue glimepiride. Accu-Cheks with sliding scale insulin. 7. Hypertension-stable, continue current regimen. 8. Hyperlipidemia-continue statin. DVT prophylaxis-Eliquis This patient was seen by CHANTEL Kong under the supervision of Dr. Carbone. <Nancy Crabone - Last Filed: 03/27/20 17:39> - Physical Exam Vitals/I&O's: Vital Signs Temp Pulse Resp BP Pulse Ox 98.1 F 80 18 108/65 100 03/27/20 15:22 03/27/20 15:22 03/27/20 15:22 03/27/20 15:22 03/27/20 15:22 Oxygen Flow Rate (L/min) 2 Oxygen Delivery Method Nasal Cannula Weight: 74.2 kg Body Mass Index (BMI) 24.1 Intake and Output for Last 24 Hours 03/25/20 03/26/20 03/27/20 23:59 23:59 23:59 Intake Total 1433.17 / 1433.17 Output Total 600 / 600 Balance 833.17 / 833.17 Laboratory Results 03/26/20 21:30: WBC 10.2, RBC 5.23, Hgb 15.6, Hct 47.5, MCV 90.8, MCH 29.8, MCHC 32.8, RDW Std Deviation 42.1, RDW Coeff of Shashank 13.0, Plt Count 171, MPV 12.6 H, Immature Gran % (Auto) 0.300, Neut % (Auto) 66.0, Lymph % (Auto) 21.7, [place] % (Auto) 8.8, Eos % (Auto) 2.6, Baso % (Auto) 0.6, Absolute Neuts (auto) 6.8, Absolute Lymphs (auto) 2.22, Nucleated RBC % 0 03/26/20 21:30: Sodium 133 L, Potassium 4.7, Chloride 99, Carbon Dioxide 26.0, Anion Gap 8, BUN 33 H, Creatinine 2.41 H, Estim Creat Clear Calc 23.63, Est GFR (MDRD) Af Amer 33 L, Est GFR (MDRD) Non-Af 28 L, BUN/Creatinine Ratio 13.7, Glucose 368 H, Calcium 9.5, Troponin I 0.165 H 03/27/20 00:41: Troponin I 0.120 H 03/27/20 03:42: Sodium 134 L, Potassium 3.6, Chloride 98, Carbon Dioxide 28.0, Anion Gap 8, BUN 35 H, Creatinine 2.03 H, Estim Creat Clear Calc 28.06, Est GFR (MDRD) Af Amer 41 L, Est GFR (MDRD) Non-Af 34 L, BUN/Creatinine Ratio 17.2, Glucose 349 H, Calcium 8.7, Magnesium 1.7 03/27/20 03:42: Troponin I 0.143 H 03/27/20 03:42: B-Natriuretic Peptide 1225.6 H 03/27/20 06:35: POC Glucose 311 H Current Medications Albuterol/Ipratropium (Duoneb) 3 ml INHALATION Q6HWA.RT [facility] Last Admin: 03/27/20 13:12 Dose: 3 ml Documented by: Apixaban (Eliquis) 2.5 mg PO BID [facility] Last Admin: 03/27/20 12:43 Dose: 2.5 mg Documented by: Aspirin (Ecotrin) 325 mg PO DAILY@0800 [facility] Last Admin: 03/27/20 08:10 Dose: 325 mg Documented by: Atorvastatin Calcium (Lipitor) 40 mg PO QHS [facility] Cholecalciferol (Vitamin D (25mcg)) 5,000 unit PO DAILY [facility] Last Admin: 03/27/20 10:31 Dose: 5,000 unit Documented by: Furosemide (Lasix) 40 mg IV BID@1000,1800 [facility] Last Admin: 03/27/20 12:43 Dose: 40 mg Documented by: Glimepiride (Amaryl) 4 mg PO BIDCM [facility] Last Admin: 03/27/20 16:23 Dose: 4 mg Documented by: Insulin Human Lispro (Humalog Kwikpen (Bkc)) 0 unit SC [facility]; Protocol Last Admin: 03/27/20 16:26 Dose: 3 units Documented by: Isosorbide Mononitrate (Imdur) 30 mg PO DAILY [facility] Last Admin: 03/27/20 10:33 Dose: 30 mg Documented by: Metoprolol Tartrate (Lopressor (Beta Ivy)) 100 mg PO BID [facility] Morphine Sulfate () 4 mg IV Q3H PRN PRN PRN Reason: Pain Score 6-10/10 Nitroglycerin (Nitrostat) 0.4 mg SUBLINGUAL Q5M PRN PRN Reason: CARDIAC/CHEST PAIN Ondansetron HCl (Zofran) 4 mg IV Q8H PRN PRN PRN Reason: NAUSEA/VOMITING Last Admin: 03/27/20 00:29 Dose: 4 mg Documented by: Potassium Chloride (K-Dur) 20 meq PO DAILY [facility] Last Admin: 03/27/20 10:32 Dose: 20 meq Documented by: Ranolazine (Ranexa) 500 mg PO BID [facility] Last Admin: 03/27/20 10:33 Dose: 500 mg Documented by: Sodium Chloride () 10 - 40 ml IV UD PRN PRN Reason: SALINE FLUSH Last Admin: 03/27/20 10:24 Dose: 10 ml Documented by: Assessment/Plan This patient was seen in conjunction with Odilia Mcmullen [employer]. I have independently interviewed and examined the patient and reviewed pertinent historical, laboratory, and other data. Please refer to her note for patient's presentation, findings, and recommendations. Patient was seen and examined. He complains of subjective dyspnea with orthopnea and PND. BNP was elevated more than thousand 200. Started on Lasix. Stress test has been negative. Discussed in detail about depression. Patient states he feels blue because of his concurrent medical problems. His PHQ-9 was 6. Declined any antidepressants. He stated that his is on antidepressant and admit her confused and he is wary of any antidepressant. Literature was provided about Lexapro. Opportunity to ask questions to pharmacist was presented. He declined to be started on Lexapro or any other antidepressant. Vitals were reviewed -stable Physical Exam: Gen: Comfortable, not pale, not jaundiced, alert oriented x3 CVS:HS I +II, regular, no murmurs RESP: Diminished at lung bases GI: BS present and normal, nontender, no palpable organs EXT:No edema Labs reviewed: ASSESSMENT: 1. Acute on chronic combined CHF, EF 45%, diastolic dysfunction 2. CATE on CKD stage 3 3. Recent onset of atrial fibrillation 4. CAD s/p CABG 5. H/o CVA 6. Type 2 DM 7. Hypertension 8. Hyperlipidemia Meds reviewed Plan: Continue on lasix, aspirin, apixaban, metoprolol Will re-evaluate in am Inpatient E&M: 41204 Subs Hosp L2
[2020-03-27] MEDS: Furosemide 40 MG/4 ML Vial IV (12:43)
[2020-03-27] MEDS: APIXABAN 2.5 MG TABLET PO ×2 (12:43→21:44)
[2020-03-27 13:06] LABS: BNP,B-Type NATRIURETIC PEPTIDE 1225.6 pg/mL (0-100)
--- NOTE | 2020-03-27 13:10 | CASEMGMT ---
Physician asked SW to complete a PHQ 9 with patient as he expressed he is down due to his health issues. SW met with patient, introduced self and role at [facility]. SW asked patient if it would be ok if SW completed a depression screen with him and he was in agreement with this. SW completed a PHQ 9 and he scored a 6 which indicates mild depression. 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 He has been going to the same [facility] for 50 years and they are very supportive. SW asked if his mosque has started having services in house yet. He said they have and he went last week. He told SW it is not that he doesn't want to do things or that he lost interest he is just too tired to do anything. He thanked CHARITY for checking on him. Nichol PURDY MSW
--- NOTE | 2020-03-27 13:17 | CASEMGMT ---
GERMÁN RANKIN assessment: Face to Face with patient for initial transition planning/care coordination assessment. GERMÁN RANKIN introduced self and role at [facility], pt voices understanding and consents to assessment at this time. Pt is sitting up in bed in no distress at this time. Pt is A/Ox4 at this time and answers all questions appropriately at this time. Care providers, pharmacy, and demographics verified at this time. Presentation: c/o CP/SOB Admitting dx: CP, Afib, Renal failure PCP: Delmy Specialists: Allan cardio Preferred Pharmacy: [facility] Insurance: [facility] Prescription Benefit: [facility] Living Will/HPOA: Pt states does not have LW/HPOA but does not want AD info at this time. LNOK: Luana Luz, ; Watson Luz, son Living Arrangements: Pt states lives with in [address] [facility] and states no concerns at home at this time. Pt states is independent with ADL's. Transportation: Pt states drives self and states no transportation concerns at this time. DME/HHC: Pt states no current DME or need for any at this time. Pt states no hx of HHC or SNF in the past. Pt states no concerns with going home at time of discharge. Pt states is retired. Pt states does not smoke cigarettes or drink ETOH. Pt states no further concerns/needs at this time. CM to follow for any further discharge planning/needs. Advised pt to ask for CM if any further questions/concerns/needs arise, voices understanding. Pt Goal: Home Plan[place] GERMÁN RANKIN
--- NOTE | 2020-03-27 13:28 | NURSING ---
This RN called and updated the pt's Luana, for a second time.
--- NOTE | 2020-03-27 15:30 | NURSING ---
This RN updated pt's daughter via phone.
[2020-03-27] MEDS: Insulin Lispro 100 UNIT/ML INSULN.PEN SC ×2 (16:26→21:39)
[2020-03-27 17:00] LABS: Bedside Glucose 310 mg/dL (70-110)
[2020-03-27] MEDS: Atorvastatin Calcium 40 MG Tablet PO (21:44)
[2020-03-27] MEDS: Metoprolol Tartrate 100 MG Tablet PO (21:44)
[2020-03-27 22:36] LABS: Bedside Glucose 411 mg/dL (70-110)
[2020-03-28] VITALS (17 sets, daily range): BP systolic 90–126; BP diastolic 65–79; PULSE 60–124; RESP 18–24; TEMP 36.6–36.9; O2SAT 94–98
[2020-03-28] MEDS: proCHLORPERazine 10 MG/2 ML Vial 5 MG IV ×2 (00:19→14:31)
[2020-03-28] MEDS: 0.9% Saline Lock 10 ML Syringe IV ×6 (00:19→21:53)
[2020-03-28 00:36] LABS: Bedside Glucose 319 mg/dL (70-110)
[2020-03-28] MEDS: Ipratropium/Albuterol Sulfate 3 ML AMPUL.NEB INHALATION (01:11)
[2020-03-28 02:41] LABS: Bedside Glucose 334 mg/dL (70-110)
[2020-03-28] MEDS: Insulin Lispro 100 UNIT/ML INSULN.PEN SC ×5 (02:53→21:40)
[2020-03-28 05:22] LABS: Absolute Lymphocyte Count 0.77 X10^3/uL (0.83-4.51); Absolute Neutrophil Count 9.2 X10^3/uL (2.0-7.7); Basophil# 0.02 X10^3/uL; Basophil% 0.2 % (0-1); Hematocrit 44.7 % (40-54); Hemoglobin 14.4 g/dL (13.0-16.5); Lymphocyte # 0.77 X10^3/ul (4.0); Lymphocyte % 7.3 % (19-41); Mean Corp Hgb Conc 32.2 g/dL (32-36); Mean Corpuscular Hgb 29.3 pg (27.0-32.0); Mean Corpuscular Volume 90.9 fL (80-94); Mean Platelet Vol. 12.3 fl (6.2-12.0); Monocyte# 0.59 X10^3/uL; Monocyte% 5.6 % (0-10); NRBC Flagged by Analyzer 0 % (0-5); Neutrophil # 9.15 X10^3/uL (2.7-7.7); Neutrophil % 86.6 % (47-70); Platelet Count 140 K/mm3 (150-450); RBC Distribution Width SD 42.5 fl (35.1-43.9); Red Blood Count 4.92 M/mm3 (4.6-6.2); White Blood Count 10.6 K/mm3 (4.4-11.0)
[2020-03-28 05:39] LABS: AST(SGOT) 29 U/L (15-37); Alanine Aminotransfer ALT/SGPT 76 U/L (16-61); Albumin, Serum 3.1 g/dL (3.2-5.0); Alkaline Phosphatase 112 U/L (45-117); Anion Gap 9 (5-15); BUN 40 mg/dL (7-18); BUN/Creat Ratio 20.9 RATIO (10-20); Calcium,Total 8.9 mg/dL (8.5-10.1); Chloride 100 mmol/L (98-107); Creatinine, Serum 1.91 mg/dL (0.70-1.30); EST Glomerular Filtration Rate 36 mL/min (>60); Est Glom Filt Rate - Afr Amer 44 mL/min (>60); Estimated Creatinine Clearance 29.82 ml/min; Globulin 3.1 g/dL (2.2-4.2); Glucose 272 mg/dL (74-106); Potassium 3.7 mmol/L (3.5-5.1); Protein, Total 6.2 g/dL (6.4-8.2); Sodium Level 135 mmol/L (136-145)
[2020-03-28 07:05] LABS: Bedside Glucose 209 mg/dL (70-110)
[2020-03-28] MEDS: Aspirin E.C. 325 MG Tablet PO (07:37)
[2020-03-28] MEDS: Glimepiride 4 MG Tablet PO ×2 (07:37→16:16)
[2020-03-28] MEDS: Ranolazine 500 MG Tablet PO (08:40)
[2020-03-28] MEDS: APIXABAN 2.5 MG TABLET PO (08:40)
[2020-03-28] MEDS: Furosemide 40 MG/4 ML Vial IV (08:41)
[2020-03-28] MEDS: Isosorbide Mononitrate 30 MG Tablet PO (08:41)
[2020-03-28] MEDS: Metoprolol Tartrate 100 MG Tablet PO (08:43)
[2020-03-28] MEDS: Amiodarone 200 MG Tablet PO (09:46)
[2020-03-28 11:55] LABS: Bedside Glucose 356 mg/dL (70-110)
--- NOTE | 2020-03-28 12:03 | PCM.PROGNOTE ---
<Odilia Mcmullen - Last Filed: 03/28/20 12:10> Subjective: Patient seen and examined. Continues to feel short of breath and fatigue. Denies chest pain. Discussed with patient initiating medication for depression which he is not agreeable to at this time. He states his took a happy pill and lost her mind. He is agreeable to palliative referral at discharge for assistance with symptom management. - Physical Exam Vitals/I&O's: Vital Signs Temp Pulse Resp BP Pulse Ox 98.2 F 112 H 18 123/75 H 96 03/28/20 08:37 03/28/20 08:43 03/28/20 08:37 03/28/20 08:37 03/28/20 08:37 Oxygen Flow Rate (L/min) 2 Oxygen Delivery Method Nasal Cannula Weight: 165 lb 9.074 oz Body Mass Index (BMI) 24.1 Intake and Output for Last 24 Hours 03/26/20 03/27/20 03/28/20 23:59 23:59 23:59 Intake Total 1893.17 / 1893.17 Output Total 750 / 750 Balance 1143.17 / 1143.17 General: Alert, Oriented x3, Cooperative HEENT: Atraumatic, PERRLA, EOMI, Normocephalic Neck: Supple, No JVD, Negative Carotid Bruits Lungs: Clear to auscultation, Diminished Cardiovascular: - - Atrial fibrillation, mild tachycardia Abdomen: Bowel Sounds Present, Soft, Non Tender, Non-Distended Extremities: No clubbing, No cyanosis, No edema, Capillary Refill Less than 3 Seconds Skin: No rashes, No breakdown Musculoskeletal: No Tenderness to Palpation of Joints or Extremities Neurological: Cranial nerves II-XII grossly intact, Neuro grossly intact Psych/Mental Status: Flat Affect Laboratory Results 03/27/20 03:42: B-Natriuretic Peptide 1225.6 H 03/27/20 16:21: POC Glucose 310 H 03/27/20 21:37: POC Glucose 411 H 03/27/20 23:55: POC Glucose 319 H 03/28/20 02:33: POC Glucose 334 H 03/28/20 04:56: WBC 10.6, RBC 4.92, Hgb 14.4, Hct 44.7, MCV 90.9, MCH 29.3, MCHC 32.2, RDW Std Deviation 42.5, RDW Coeff of Shashank 13.0, Plt Count 140 L, MPV 12.3 H, Immature Gran % (Auto) 0.300, Neut % (Auto) 86.6 H, Lymph % (Auto) 7.3 L, Ponce % (Auto) 5.6, Eos % (Auto) 0.0, Baso % (Auto) 0.2, Absolute Neuts (auto) 9.2 H, Absolute Lymphs (auto) 0.77 L, Nucleated RBC % 0 03/28/20 04:56: Sodium 135 L, Potassium 3.7, Chloride 100, Carbon Dioxide 26.0, Anion Gap 9, BUN 40 H, Creatinine 1.91 H, Estim Creat Clear Calc 29.82, Est GFR (MDRD) Af Amer 44 L, Est GFR (MDRD) Non-Af 36 L, BUN/Creatinine Ratio 20.9 H, Glucose 272 H, Calcium 8.9, Total Bilirubin 1.30 H, AST 29, ALT 76 H, Alkaline Phosphatase 112, Total Protein 6.2 L, Albumin 3.1 L, Globulin 3.1, Albumin/Globulin Ratio 1.0 03/28/20 06:53: POC Glucose 209 H 03/28/20 11:21: POC Glucose 356 H Current Medications Albuterol/Ipratropium (Duoneb) 3 ml INHALATION Q6HWA.RT [facility] Last Admin: 03/28/20 07:20 Dose: Not Given Documented by: Amiodarone HCl (Cordarone) 200 mg PO DAILY [facility] Last Admin: 03/28/20 09:46 Dose: 200 mg Documented by: Apixaban (Eliquis) 2.5 mg PO BID [facility] Last Admin: 03/28/20 08:40 Dose: 2.5 mg Documented by: Aspirin (Ecotrin) 81 mg PO DAILY@0800 [facility] Atorvastatin Calcium (Lipitor) 40 mg PO QHS [facility] Last Admin: 03/27/20 21:44 Dose: 40 mg Documented by: Cholecalciferol (Vitamin D (25mcg)) 5,000 unit PO DAILY [facility] Last Admin: 03/28/20 08:41 Dose: 5,000 unit Documented by: Furosemide (Lasix) 60 mg PO BID@1000,1800 [facility] Glimepiride (Amaryl) 4 mg PO BID[facility]ANSON Last Admin: 03/28/20 07:37 Dose: 4 mg Documented by: Insulin Glargine (Lantus ([facility])) 10 units SC DAILY [facility] Last Admin: 03/28/20 09:46 Dose: 10 unit Documented by: Insulin Human Lispro (Humalog Kwikpen ([facility])) 0 unit SC ACHS & 3AM [facility]; Protocol Last Admin: 03/28/20 11:22 Dose: 8 units Documented by: Isosorbide Mononitrate (Imdur) 30 mg PO DAILY [facility] Last Admin: 03/28/20 08:41 Dose: 30 mg Documented by: Metoprolol Tartrate (Lopressor (Beta Ivy)) 100 mg PO BID [facility] Last Admin: 03/28/20 08:43 Dose: 100 mg Documented by: Morphine Sulfate () 4 mg IV Q3H PRN PRN PRN Reason: Pain Score 6-10/10 Nitroglycerin (Nitrostat) 0.4 mg SUBLINGUAL Q5M PRN PRN Reason: CARDIAC/CHEST PAIN Potassium Chloride (K-Dur) 20 meq PO DAILY [facility] Last Admin: 03/28/20 08:41 Dose: 20 meq Documented by: Prochlorperazine Edisylate (Compazine Iv) 5 mg IV Q4H PRN PRN PRN Reason: NAUSEA/VOMITING Last Admin: 03/28/20 00:19 Dose: 5 mg Documented by: Ranolazine (Ranexa) 500 mg PO BID [facility] Last Admin: 03/28/20 08:40 Dose: 500 mg Documented by: Sodium Chloride () 10 - 40 ml IV UD PRN PRN Reason: SALINE FLUSH Last Admin: 03/28/20 08:41 Dose: 10 ml Documented by: Medical Necessity - Tobacco Use Smoking Status: Never smoker Assessment/Plan All Active Problems (Last Updated 03/13/20 @ 11:23 by CARLENE Porter) Atrial fibrillation (Acute) History of non-ST elevation myocardial infarction (NSTEMI) (Resolved 05/2017) Acute respiratory failure with hypoxemia (Resolved) Dyspnea (Resolved) Dyspnea on exertion (Resolved) Shortness of breath (Resolved) 1. Acute on chronic heart failure with reduced ejection fraction/Ischemic cardiomyopathy-BNP 1225. Chest x-ray admission with mild CHF. Echocardiogram February 2020 demonstrated an EF 45%, stage III diastolic dysfunction, pulmonary artery systolic pressure 44 mmHg. Patient underwent nuclear stress test 03/27/2020 which showed gated ejection fraction 29%, no evidence of ischemia, cardiomyopathy. Strict I&O. Daily weight. Cardiology following. Placed on Ranexa. Increase home Lasix regimen to 60 mg twice daily. 2. Acute kidney injury on chronic kidney disease stage III-Creatinine improving despite IV Lasix. Trend BMP. 3. Recent onset atrial fibrillation-noted during cardiology office visit 03/13/2020. Plan was for cardioversion following 3 weeks of anticoagulation. Metoprolol increased to 100 mg twice daily. Cardizem discontinued. Initiated on amiodarone 200 mg daily. 4. CAD with history of CABG-stress test without ischemia. Continue Eliquis, statin, metoprolol, isosorbide. 5. History of CVA-statin, Eliquis. 6. Type 2 diabetes mellitus-continue glimepiride. Accu-Cheks with sliding scale insulin. 7. Hypertension-stable, continue current regimen. 8. Hyperlipidemia-continue statin. DVT prophylaxis-Eliquis Discharge planning: Anticipate discharge home tomorrow with palliative referral at discharge. This patient was seen by CHANTEL Kong under the supervision of Dr. Carbone. <Nancy Carbone - Last Filed: 03/28/20 18:37> - Physical Exam Vitals/I&O's: Vital Signs Temp Pulse Resp BP Pulse Ox 98.5 F 60 18 98/73 97 03/28/20 16:14 03/28/20 16:14 03/28/20 16:14 03/28/20 16:14 03/28/20 16:14 Oxygen Flow Rate (L/min) 2 Oxygen Delivery Method Room Air Weight: 75.1 kg Body Mass Index (BMI) 24.1 Intake and Output for Last 24 Hours 03/26/20 03/27/20 03/28/20 23:59 23:59 23:59 Intake Total 1893.17 / 1893.17 600 / 600 Output Total 750 / 750 Balance 1143.17 / 1143.17 600 / 600 Laboratory Results 03/27/20 21:37: POC Glucose 411 H 03/27/20 23:55: POC Glucose 319 H 03/28/20 02:33: POC Glucose 334 H 03/28/20 04:56: WBC 10.6, RBC 4.92, Hgb 14.4, Hct 44.7, MCV 90.9, MCH 29.3, MCHC 32.2, RDW Std Deviation 42.5, RDW Coeff of Shashank 13.0, Plt Count 140 L, MPV 12.3 H, Immature Gran % (Auto) 0.300, Neut % (Auto) 86.6 H, Lymph % (Auto) 7.3 L, Ponce % (Auto) 5.6, Eos % (Auto) 0.0, Baso % (Auto) 0.2, Absolute Neuts (auto) 9.2 H, Absolute Lymphs (auto) 0.77 L, Nucleated RBC % 0 03/28/20 04:56: Sodium 135 L, Potassium 3.7, Chloride 100, Carbon Dioxide 26.0, Anion Gap 9, BUN 40 H, Creatinine 1.91 H, Estim Creat Clear Calc 29.82, Est GFR (MDRD) Af Amer 44 L, Est GFR (MDRD) Non-Af 36 L, BUN/Creatinine Ratio 20.9 H, Glucose 272 H, Calcium 8.9, Total Bilirubin 1.30 H, AST 29, ALT 76 H, Alkaline Phosphatase 112, Total Protein 6.2 L, Albumin 3.1 L, Globulin 3.1, Albumin/Globulin Ratio 1.0 03/28/20 06:53: POC Glucose 209 H 03/28/20 11:21: POC Glucose 356 H 03/28/20 16:14: POC Glucose 352 H Current Medications Albuterol/Ipratropium (Duoneb) 3 ml INHALATION Q6HWA.RT [facility] Last Admin: 03/28/20 13:20 Dose: Not Given Documented by: Amiodarone HCl (Cordarone) 200 mg PO DAILY [facility] Last Admin: 03/28/20 09:46 Dose: 200 mg Documented by: Apixaban (Eliquis) 2.5 mg PO BID [facility] Last Admin: 03/28/20 08:40 Dose: 2.5 mg Documented by: Aspirin (Ecotrin) 81 mg PO DAILY@0800 [facility] Atorvastatin Calcium (Lipitor) 40 mg PO QHS [facility] Last Admin: 03/27/20 21:44 Dose: 40 mg Documented by: Cholecalciferol (Vitamin D (25mcg)) 5,000 unit PO DAILY [facility] Last Admin: 03/28/20 08:41 Dose: 5,000 unit Documented by: Furosemide (Lasix) 60 mg PO BID@1000,1800 [facility] Last Admin: 03/28/20 18:26 Dose: Not Given Documented by: Glimepiride (Amaryl) 4 mg PO BID[facility] Last Admin: 03/28/20 16:16 Dose: 4 mg Documented by: Insulin Glargine (Lantus ([facility])) 10 units SC DAILY [facility] Last Admin: 03/28/20 09:46 Dose: 10 unit Documented by: Insulin Human Lispro (Humalog Kwikpen ([facility])) 0 unit SC ACHS & 3AM [facility]; Protocol Last Admin: 03/28/20 16:16 Dose: 8 units Documented by: Isosorbide Mononitrate (Imdur) 30 mg PO DAILY [facility] Last Admin: 03/28/20 08:41 Dose: 30 mg Documented by: Metoprolol Tartrate (Lopressor (Beta Ivy)) 100 mg PO BID [facility] Last Admin: 03/28/20 08:43 Dose: 100 mg Documented by: Morphine Sulfate () 4 mg IV Q3H PRN PRN PRN Reason: Pain Score 6-10/10 Nitroglycerin (Nitrostat) 0.4 mg SUBLINGUAL Q5M PRN PRN Reason: CARDIAC/CHEST PAIN Ondansetron HCl (Zofran) 4 mg IV Q8H PRN PRN PRN Reason: NAUSEA Last Admin: 03/28/20 16:16 Dose: 4 mg Documented by: Potassium Chloride (K-Dur) 20 meq PO DAILY [facility] Last Admin: 03/28/20 08:41 Dose: 20 meq Documented by: Promethazine HCl (Phenergan) 6.25 mg IV Q6H PRN PRN PRN Reason: NAUSEA/VOMITING Ranolazine (Ranexa) 500 mg PO BID [facility] Last Admin: 03/28/20 08:40 Dose: 500 mg Documented by: Sodium Chloride () 10 - 40 ml IV UD PRN PRN Reason: SALINE FLUSH Last Admin: 03/28/20 16:16 Dose: 10 ml Documented by: Assessment/Plan This patient was seen in conjunction with Odilia Mcmullen NP. I have independently interviewed and examined the patient and reviewed pertinent historical, laboratory, and other data. Please refer to her note for patient's presentation, findings, and recommendations. Patient was seen and examined. He complains of subjective dyspnea with orthopnea and PND. BNP was elevated more than thousand 200. Started on Lasix. Stress test has been negative. Discussed in detail about depression. Patient states he feels blue because of his concurrent medical problems. His PHQ-9 was 6. Declined any antidepressants. He stated that his is on antidepressant and admit her confused and he is wary of any antidepressant. Literature was provided about Lexapro. Opportunity to ask questions to pharmacist was presented. He declined to be started on Lexapro or any other antidepressant. Vitals were reviewed -stable Physical Exam: Gen: Comfortable, not pale, not jaundiced, alert oriented x3 CVS:HS I +II, regular, no murmurs RESP: Diminished at lung bases GI: BS present and normal, nontender, no palpable organs EXT:No edema Labs reviewed: ASSESSMENT: 1. Acute on chronic combined CHF, EF 45%, diastolic dysfunction 2. CATE on CKD stage 3 3. Recent onset of atrial fibrillation 4. CAD s/p CABG 5. H/o CVA 6. Type 2 DM 7. Hypertension 8. Hyperlipidemia Meds reviewed Plan: Continue on lasix, aspirin, apixaban, metoprolol DC in a.m. Inpatient E&M: 32035 Subs Hosp L2
--- NOTE | 2020-03-28 13:49 | CASEMGMT ---
Nurse Practitioner, Odilia talked with patient about Palliative Care. He was open to a referral being made. SW spoke with him and explained how process works. He asked that they not call him until he is at home. SW called [facility] and made a referral. SW asked Steffany to not call patient until he is discharged. SW also faxed referral. Nichol PURDY MSW
[2020-03-28] MEDS: dilTIAZem 25 MG/5 ML Vial 20 MG IV BOLUS (13:57)
[2020-03-28] MEDS: Ondansetron 4 MG/2 ML Vial IV (16:16)
[2020-03-28 16:31] LABS: Bedside Glucose 352 mg/dL (70-110)
[2020-03-28] MEDS: proMETHazine 25 MG/ML Syringe 6.25 MG IV (21:52)
[2020-03-28 21:55] LABS: Bedside Glucose 321 mg/dL (70-110)
[2020-03-29] VITALS (33 sets, daily range): BP systolic 90–125; BP diastolic 56–100; PULSE 93–125; RESP 18–28; TEMP 36.1–37.6; O2SAT 89–100
[2020-03-29] MEDS: Metoprolol Tartrate 5 MG/5 ML Vial IV ×3 (01:32→06:06)
[2020-03-29] MEDS: 0.9% Saline Lock 10 ML Syringe IV ×6 (01:34→23:15)
[2020-03-29] MEDS: Insulin Lispro 100 UNIT/ML INSULN.PEN SC ×2 (03:46→06:54)
[2020-03-29 04:26] LABS: Bedside Glucose 272 mg/dL (70-110)
[2020-03-29 06:46] LABS: Anion Gap 9 (5-15); BUN 44 mg/dL (7-18); BUN/Creat Ratio 22.9 RATIO (10-20); Calcium,Total 9.1 mg/dL (8.5-10.1); Chloride 99 mmol/L (98-107); Creatinine, Serum 1.92 mg/dL (0.70-1.30); EST Glomerular Filtration Rate 36 mL/min (>60); Est Glom Filt Rate - Afr Amer 43 mL/min (>60); Estimated Creatinine Clearance 29.66 ml/min; Glucose 219 mg/dL (74-106); Potassium 3.9 mmol/L (3.5-5.1); Sodium Level 134 mmol/L (136-145)
[2020-03-29 07:00] LABS: Bedside Glucose 183 mg/dL (70-110)
--- NOTE | 2020-03-29 08:42 | PN.CARD_ITS ---
Subjectve: Patient seen and evaluated. Objective: Vital Signs Temp Pulse Resp BP Pulse Ox 98.2 F 125 H 18 120/71 97 03/29/20 06:00 03/29/20 07:07 03/29/20 06:00 03/29/20 06:06 03/29/20 07:00 Oxygen Flow Rate (L/min) 2 Oxygen Delivery Method Nasal Cannula Weight: 166 lb 0.129 oz Body Mass Index (BMI) 24.1 Intake and Output for Last 24 Hours 03/27/20 03/28/20 03/29/20 23:59 23:59 23:59 Intake Total 1893.17 / 1893.17 700 / 700 Output Total 750 / 750 100 / 100 200 / 200 Balance 1143.17 / 1143.17 600 / 600 -200 / -200 General: Awake, Alert, Oriented x 3 HEENT: PERRL, EOMI, Sclera Non Icteric Neck: Supple, Good ROM, No Lymph Node Enlargement Lungs: Clear to auscultation Cardiovascular: Regular Rhythm, Normal S1, Normal S2, No Murmurs, No Rubs, No Gallops Vascular: No Carotid Bruits, Normal Femoral Pulses, Normal Radial Pulses, Normal Dorsalis Pedal Pulse, Normal Posterior Tibial Pulses Abdomen: Bowel Sounds Present, Soft, Non Tender, No HSM, No Organomegaly Extremities: No Cyanosis, No Clubbing, No edema Musculoskeletal: No Erythema Skin: No Rashes Neurological: No Focal Motor or Sensory Deficit Psych/Mental Status: Appropriate 03/29/20 05:56: Sodium 134 L, Potassium 3.9, Chloride 99, Carbon Dioxide 26.0, Anion Gap 9, BUN 44 H, Creatinine 1.92 H, Est GFR (MDRD) Af Amer 43 L, Est GFR (MDRD) Non-Af 36 L, BUN/Creatinine Ratio 22.9 H, Glucose 219 H, Calcium 9.1 Rhythm: EKG: ECHO: Stress Test: Cardiac Cath: PCI: CT Surgery: Holter monitor: EPS: PPM: CXR: Chest CT Scan: Medical Necessity - Tobacco Use Smoking Status: Never smoker Assessment/Plan 1. Shortness of breath * The above is likely secondary to diastolic dysfunction. His echocardiogram demonstrated an ejection fraction of 45% with stage III diastolic dysfunction. I doubt that this is secondary to coronary ischemia. He did have minimal troponin elevation but I will suggest that we repeat his myocardial perfusion scan and unless this demonstrates significant ischemic territory would continue to manage him with medication. * Will continue him on the current dose of diuretics 2. Coronary artery disease * He does have known coronary artery disease as evidenced above. His last catheterization a year and a half ago demonstrated patency of his bypass grafts. He has no acute EKG changes and I would recommend that we continue to manage him with risk factor modification. * A stress test demonstrated no evidence of ischemia and I do not think that coronary disease is playing a role here 3. Atrial fibrillation * His ventricular response rate does not appear to be very well controlled. I would like us to increase his beta-kelsey, continue his Eliquis for better rate control and will see whether this would help improve his symptoms * Will add amiodarone 200 mg twice daily * If he is still not controlled later on today we may need to consider DC cardioversion in a.m. 4. Hypertension * Good control he will continue the same medications with appropriately changed doses. * 5. Risk factor modification * He will continue with appropriate risk factor modification. He does in apurva tion appear to be mildly depressed and this may need to be addressed. * * Thank you for allowing me to participate in the care of your patient. Please don't hesitate to call if any issues arise.
[2020-03-29] MEDS: APIXABAN 2.5 MG TABLET PO ×2 (09:53→21:25)
[2020-03-29] MEDS: Amiodarone 200 MG Tablet PO ×2 (09:53→21:25)
[2020-03-29] MEDS: Aspirin E.C. 81 MG Tablet PO (09:53)
[2020-03-29] MEDS: Metoprolol Tartrate 100 MG Tablet PO (09:53)
[2020-03-29] MEDS: Ranolazine 500 MG Tablet PO ×2 (10:13→21:25)
[2020-03-29] MEDS: Furosemide 20 MG Tablet 60 MG PO (10:13)
[2020-03-29] MEDS: Glimepiride 4 MG Tablet PO (10:13)
[2020-03-29] MEDS: Isosorbide Mononitrate 30 MG Tablet PO (10:14)
--- NOTE | 2020-03-29 11:59 | DCINST_ITS ---
You will use the following diet at home:: Cardiac Discharge Activity: Return to Normal Activity Call your doctor if you observe: Shortness of breath, Dizziness, Fainting spells, Chest pain Allergies/Adverse Reactions: Allergies spironolactone Allergy (Verified 03/26/20 21:31) severe weakness lisinopril Adverse Reaction (Mild, Verified 03/26/20 21:31) Dry cough Medications to take at Discharge cholecalciferol (vitamin D3) 125 mcg (5,000 unit) capsule 5,000 unit PO DAILY 02/16/19 albuterol sulfate 90 mcg/actuation aerosol inhaler 1 puff INHALATION Q6H 09/26/19 glimepiride 4 mg tablet 4 mg PO BID tab 09/26/19 tiotropium bromide 2.5 mcg/actuation mist for inhalation 2 puff INHALATION DAILY PRN 09/26/19 isosorbide mononitrate 30 mg tablet,extended release 24 hr 30 mg PO DAILY #90 tab 01/16/20 apixaban 2.5 mg tablet 2.5 mg PO BID #60 tab 03/10/20 diltiazem HCl 120 mg capsule,extended release 24 hr 120 mg PO DAILY #30 cap 03/13/20 metoprolol tartrate 50 mg tablet 50 mg PO BID #180 tab 03/13/20 furosemide 40 mg tablet 40 mg PO BID #135 tab 03/19/20 potassium chloride 20 mEq tablet,extended release 20 meq PO DAILY #34 tab 03/19/20 Atorvastatin Calcium [Lipitor] 50 mg PO BID 03/26/20 Primary Care Physician: Abdoulaye Brock MD [Primary Care Provider] - Please follow up with your Primary Care Physician in: 3-5 Days Test Results: Test results from this visit will be discussed in further detail at your follow- up appointment, if applicable. Please Follow Up With: Jason Lemus MD When: May see [employer]/PA, 2 Weeks Proposed Discharge Date: 03/29/20
[2020-03-29 12:05] LABS: Bedside Glucose 92 mg/dL (70-110)
--- NOTE | 2020-03-29 12:07 | PCM.PROGNOTE ---
<Odilia Mcmullen - Last Filed: 03/29/20 12:12> Subjective: Patient seen and examined. Initially felt breathing improved however later today reports increased dyspnea. Heart rate remains tachycardic. Home oxygen testing completed and patient did not qualify for home oxygen. - Physical Exam Vitals/I&O's: Vital Signs Temp Pulse Resp BP Pulse Ox 97.8 F 120 H 20 H 106/68 95 03/29/20 11:33 03/29/20 11:33 03/29/20 11:33 03/29/20 11:33 03/29/20 11:33 Oxygen Flow Rate (L/min) 2 Oxygen Delivery Method Room Air Weight: 166 lb 0.129 oz Body Mass Index (BMI) 24.1 Intake and Output for Last 24 Hours 03/27/20 03/28/20 03/29/20 23:59 23:59 23:59 Intake Total 1893.17 / 1893.17 700 / 700 240 / 240 Output Total 750 / 750 100 / 100 200 / 200 Balance 1143.17 / 1143.17 600 / 600 40 / 40 General: Alert, Oriented x3, Cooperative HEENT: Atraumatic, PERRLA, EOMI, Normocephalic Neck: Supple, No JVD, Negative Carotid Bruits Lungs: Diminished, Wheezes Cardiovascular: Tachycardic, - - Atrial fibrillation Abdomen: Bowel Sounds Present, Soft, Non Tender, Non-Distended Extremities: No clubbing, No cyanosis, No edema, Capillary Refill Less than 3 Seconds Skin: No rashes, No breakdown Musculoskeletal: No Tenderness to Palpation of Joints or Extremities Neurological: Cranial nerves II-XII grossly intact, Neuro grossly intact Psych/Mental Status: Normal Affect, Appropriate Laboratory Results 03/28/20 16:14: POC Glucose 352 H 03/28/20 21:39: POC Glucose 321 H 03/29/20 03:45: POC Glucose 272 H 03/29/20 05:56: Sodium 134 L, Potassium 3.9, Chloride 99, Carbon Dioxide 26.0, Anion Gap 9, BUN 44 H, Creatinine 1.92 H, Estim Creat Clear Calc 29.66, Est GFR (MDRD) Af Amer 43 L, Est GFR (MDRD) Non-Af 36 L, BUN/Creatinine Ratio 22.9 H, Glucose 219 H, Calcium 9.1 03/29/20 06:52: POC Glucose 183 H 03/29/20 11:14: POC Glucose 92 Current Medications Albuterol/Ipratropium (Duoneb) 3 ml INHALATION Q6HWA.RT [facility] Last Admin: 03/29/20 07:00 Dose: Not Given Documented by: Amiodarone HCl (Cordarone) 200 mg PO BID [facility] Last Admin: 03/29/20 09:53 Dose: 200 mg Documented by: Apixaban (Eliquis) 2.5 mg PO BID [facility] Last Admin: 03/29/20 09:53 Dose: 2.5 mg Documented by: Aspirin (Ecotrin) 81 mg PO DAILY@0800 [facility] Last Admin: 03/29/20 09:53 Dose: 81 mg Documented by: Atorvastatin Calcium (Lipitor) 40 mg PO QHS [facility] Last Admin: 03/28/20 21:40 Dose: Not Given Documented by: Cholecalciferol (Vitamin D (25mcg)) 5,000 unit PO DAILY [facility] Last Admin: 03/29/20 10:14 Dose: 5,000 unit Documented by: Furosemide (Lasix) 60 mg PO BID@1000,1800 [facility] Last Admin: 03/29/20 10:13 Dose: 60 mg Documented by: Glimepiride (Amaryl) 4 mg PO BIDCM [facility] Last Admin: 03/29/20 10:13 Dose: 4 mg Documented by: Insulin Glargine (Lantus (Bk)) 10 units SC DAILY [facility] Last Admin: 03/29/20 11:16 Dose: Not Given Documented by: Insulin Human Lispro (Humalog Kwikpen (Bk)) 0 unit SC ACHS & 3AM [facility]; Protocol Last Admin: 03/29/20 11:15 Dose: Not Given Documented by: Isosorbide Mononitrate (Imdur) 30 mg PO DAILY [facility] Last Admin: 03/29/20 10:14 Dose: 30 mg Documented by: Metoprolol Tartrate (Lopressor (Beta Ivy)) 100 mg PO BID [facility] Last Admin: 03/29/20 09:53 Dose: 100 mg Documented by: Metoprolol Tartrate (Lopressor (Beta Ivy)) 5 mg IV Q2H PRN PRN PRN Reason: heart rate > 110 Last Admin: 03/29/20 06:06 Dose: 5 mg Documented by: Morphine Sulfate () 4 mg IV Q3H PRN PRN PRN Reason: Pain Score 6-10/10 Nitroglycerin (Nitrostat) 0.4 mg SUBLINGUAL Q5M PRN PRN Reason: CARDIAC/CHEST PAIN Ondansetron HCl (Zofran) 4 mg IV Q8H PRN PRN PRN Reason: NAUSEA Last Admin: 03/28/20 16:16 Dose: 4 mg Documented by: Potassium Chloride (K-Dur) 20 meq PO DAILY [facility] Last Admin: 03/29/20 10:13 Dose: 20 meq Documented by: Promethazine HCl (Phenergan) 6.25 mg IV Q6H PRN PRN PRN Reason: NAUSEA/VOMITING Last Admin: 03/28/20 21:52 Dose: 6.25 mg Documented by: Ranolazine (Ranexa) 500 mg PO BID [facility] Last Admin: 03/29/20 10:13 Dose: 500 mg Documented by: Sodium Chloride () 10 - 40 ml IV UD PRN PRN Reason: SALINE FLUSH Last Admin: 03/29/20 06:06 Dose: 10 ml Documented by: Medical Necessity - Tobacco Use Smoking Status: Never smoker Assessment/Plan All Active Problems (Last Updated 03/13/20 @ 11:23 by CARLENE Porter) Atrial fibrillation (Acute) History of non-ST elevation myocardial infarction (NSTEMI) (Resolved 05/2017) Acute respiratory failure with hypoxemia (Resolved) Dyspnea (Resolved) Dyspnea on exertion (Resolved) Shortness of breath (Resolved) 1. Acute on chronic heart failure with reduced ejection fraction/Ischemic cardiomyopathy-BNP 1225. Chest x-ray admission with mild CHF. Echocardiogram February 2020 demonstrated an EF 45%, stage III diastolic dysfunction, pulmonary artery systolic pressure 44 mmHg. Patient underwent nuclear stress test 03/27/2020 which showed gated ejection fraction 29%, no evidence of ischemia, cardiomyopathy. Strict I&O. Daily weight. Cardiology following. Placed on Ranexa. Increase home Lasix regimen to 60 mg twice daily. Repeat home oxygen qualification testing prior to discharge. 2. Acute kidney injury on chronic kidney disease stage III-Creatinine improving despite IV Lasix. Trend BMP. 3. Recent onset atrial fibrillation-noted during cardiology office visit 03/13/2020. Plan was for cardioversion following 3 weeks of anticoagulation. Metoprolol increased to 100 mg twice daily. Cardizem discontinued. Amiodarone increased to 200 mg twice daily. Per cardiology, if rate remains uncontrolled may need cardioversion. 4. CAD with history of CABG-stress test without ischemia. Continue Eliquis, statin, metoprolol, isosorbide. 5. History of CVA-statin, Eliquis. 6. Type 2 diabetes mellitus-continue glimepiride. Accu-Cheks with sliding scale insulin. Hemoglobin A1c 10%. Initiated on Lantus 10 units subcu daily. 7. Hypertension-stable, continue current regimen. 8. Hyperlipidemia-continue statin. 9. Depression-talked in length with patient. Patient voices frustration and not being able to do the things he wants to do to his medical conditions. Discussed initiating SSRI/depression medication regimen and patient is not agreeable at this point. He was agreeable to palliative referral for symptom management. DVT prophylaxis-Eliquis Discharge planning: Home with palliative referral at discharge. This patient was seen by CHANTEL Kong under the supervision of Dr. Carbone. <Nancy Carbone - Last Filed: 03/29/20 16:38> - Physical Exam Vitals/I&O's: Vital Signs Temp Pulse Resp BP Pulse Ox 97.2 F L 103 H 27 H 105/83 H 94 03/29/20 15:00 03/29/20 16:00 03/29/20 16:00 03/29/20 16:00 03/29/20 16:00 Oxygen Flow Rate (L/min) 2 Oxygen Delivery Method Nasal Cannula Weight: 75.3 kg Body Mass Index (BMI) 24.1 Intake and Output for Last 24 Hours 03/27/20 03/28/20 03/29/20 23:59 23:59 23:59 Intake Total 1893.17 / 1893.17 700 / 700 256.25 / 256.25 Output Total 750 / 750 100 / 100 200 / 200 Balance 1143.17 / 1143.17 600 / 600 56.25 / 56.25 Laboratory Results 03/28/20 21:39: POC Glucose 321 H 03/29/20 03:45: POC Glucose 272 H 03/29/20 05:56: Sodium 134 L, Potassium 3.9, Chloride 99, Carbon Dioxide 26.0, Anion Gap 9, BUN 44 H, Creatinine 1.92 H, Estim Creat Clear Calc 29.66, Est GFR (MDRD) Af Amer 43 L, Est GFR (MDRD) Non-Af 36 L, BUN/Creatinine Ratio 22.9 H, Glucose 219 H, Calcium 9.1 03/29/20 06:52: POC Glucose 183 H 03/29/20 11:14: POC Glucose 92 Current Medications Albuterol/Ipratropium (Duoneb) 3 ml INHALATION Q6HWA.RT [facility] Last Admin: 03/29/20 07:00 Dose: Not Given Documented by: Amiodarone HCl (Cordarone) 200 mg PO BID [facility] Last Admin: 03/29/20 09:53 Dose: 200 mg Documented by: Apixaban (Eliquis) 2.5 mg PO BID [facility] Last Admin: 03/29/20 09:53 Dose: 2.5 mg Documented by: Aspirin (Ecotrin) 81 mg PO DAILY@0800 [facility] Last Admin: 03/29/20 09:53 Dose: 81 mg Documented by: Atorvastatin Calcium (Lipitor) 40 mg PO QHS [facility] Last Admin: 03/28/20 21:40 Dose: Not Given Documented by: Cholecalciferol (Vitamin D (25mcg)) 5,000 unit PO DAILY [facility] Last Admin: 03/29/20 10:14 Dose: 5,000 unit Documented by: Furosemide (Lasix) 60 mg PO BID@1000,1800 [facility] Last Admin: 03/29/20 10:13 Dose: 60 mg Documented by: Glimepiride (Amaryl) 4 mg PO BIDCM [facility] Last Admin: 03/29/20 10:13 Dose: 4 mg Documented by: Diltiazem HCl 125 mg/ Dextrose 125 mls @ 5 mls/hr IV .Q25H [facility]; Protocol Last Titration: 03/29/20 16:00 Dose: 10 mg/hr, 10 mls/hr Documented by: Insulin Glargine (Lantus (Bkc)) 10 units SC DAILY [facility] Last Admin: 03/29/20 11:16 Dose: Not Given Documented by: Insulin Human Lispro (Humalog Kwikpen (Bk)) 0 unit SC ACHS & 3AM [facility]; Protocol Last Admin: 03/29/20 11:15 Dose: Not Given Documented by: Isosorbide Mononitrate (Imdur) 30 mg PO DAILY [facility] Last Admin: 03/29/20 10:14 Dose: 30 mg Documented by: Metoprolol Tartrate (Lopressor (Beta Ivy)) 100 mg PO BID [facility] Last Admin: 03/29/20 09:53 Dose: 100 mg Documented by: Metoprolol Tartrate (Lopressor (Beta Ivy)) 5 mg IV Q2H PRN PRN PRN Reason: heart rate > 110 Last Admin: 03/29/20 06:06 Dose: 5 mg Documented by: Morphine Sulfate () 4 mg IV Q3H PRN PRN PRN Reason: Pain Score 6-10/10 Nitroglycerin (Nitrostat) 0.4 mg SUBLINGUAL Q5M PRN PRN Reason: CARDIAC/CHEST PAIN Ondansetron HCl (Zofran) 4 mg IV Q8H PRN PRN PRN Reason: NAUSEA Last Admin: 03/28/20 16:16 Dose: 4 mg Documented by: Potassium Chloride (K-Dur) 20 meq PO DAILY [facility] Last Admin: 03/29/20 10:13 Dose: 20 meq Documented by: Promethazine HCl (Phenergan) 6.25 mg IV Q6H PRN PRN PRN Reason: NAUSEA/VOMITING Last Admin: 03/28/20 21:52 Dose: 6.25 mg Documented by: Ranolazine (Ranexa) 500 mg PO BID [facility] Last Admin: 03/29/20 10:13 Dose: 500 mg Documented by: Sodium Chloride () 10 - 40 ml IV UD PRN PRN Reason: SALINE FLUSH Last Admin: 03/29/20 06:06 Dose: 10 ml Documented by: Assessment/Plan This patient was seen in conjunction with Odilia Mcmullen NP. I have independently interviewed and examined the patient and reviewed pertinent historical, laboratory, and other data. Please refer to her note for patient's presentation, findings, and recommendations. Patient was seen and examined. He is still dyspneic and has conversational dyspnea. Telemetry shows A. fib with RVR. Started on Cardizem drip 5 mg/h. Amiodarone started on increased today to 200 twice daily Vitals were reviewed -stable Physical Exam: Gen: Slightly uncomfortable, not pale, not jaundiced, alert oriented x3 CVS:HS I +II, regular, no murmurs RESP: Diminished at lung bases GI: BS present and normal, nontender, no palpable organs EXT:No edema Labs reviewed: ASSESSMENT: 1. Acute on chronic combined CHF, EF 45%, diastolic dysfunction 2. CATE on CKD stage 3, creatinine remains the same 3. A fib with RVR 4. CAD s/p CABG 5. H/o CVA 6. Type 2 DM 7. Hypertension 8. Hyperlipidemia Meds reviewed Plan: Continue on metoprolol, amiodarone, Cardizem drip Cardioversion planned for tomorrow by cardiology Continue on oral Lasix Inpatient E&M: [id number] Subs Hosp L2
--- NOTE | 2020-03-29 12:21 | CASEMGMT ---
GERMÁN RANKIN NOTE: Per CARLENE Kong, plan was for pt to discharge home today. Home O2 testing completed. Pulse ox 89% w/ambulation on . Pt does not qualify for home O2. GERMÁN RANKIN to room to talk with pt. Pt made aware he does not qualify for Home Oxygen and for billing purposes/through insurance, they will not cover the cost. Pt states he does still feel SOB and feels better with the oxygen on. Pt made aware, out of pocket cost for one-month supply of oxygen is approx $160. Pt states he would prefer to get the oxygen through his insurance company if he would qualify, instead of paying for it. He states he has an appt with his PCP on Thursday. He was made aware, to discuss this with is PCP if he is still having SOB and they could re-test him at that time by doing a 6 min walking pulse ox to see if he may qualify then. Pt voices understanding. Pt also states at this time, that he feels very weak and does not know if he feels ready to discharge home. GERMÁN RANKIN spoke with CARLENE Kong. She was made aware pt does not qualify for O2 but that he states he is still very weak and feels SOB even at rest. HR remains tachy w/rate in 110's to 120's. Per Odilia, cardiology note states pt may need cardioversion in AM. She states pt will not be discharged today. GERMÁN RANKIN back to room to talk with pt at this time and he was made aware that he will not be discharged today. He states he will notify his . RNRory, also made aware. Clay DEJESUS RN, CM
--- NOTE | 2020-03-29 12:55 | RAD_ITS ---
STUDY: X-RAY CHEST REASON FOR EXAM: Male, 80 years old. Increased shortness of breath TECHNIQUE: PA and lateral views of the chest. COMPARISON: Comparison is made with prior examination dated March 26, 2020. FINDINGS: EKG electrodes are seen. Since prior study, there has been progressive small bilateral pleural effusions with bibasilar atelectasis and/or infiltrates worse on the left side. I also suspect a mild degree of CHF. Sternal cerclage wires and vascular clips are present from a prior sternotomy and coronary artery bypass graft procedure (CABG). Normal mediastinum and heaven. Normal visualized pulmonary arteries. There is atherosclerotic calcification of the aortic arch with tortuosity. There are diffuse degenerative changes of the visualized thoracic spine. Normal visualized ribs, clavicles, and shoulders. There is no demonstrated abnormality of the visualized soft tissue structures of the upper abdomen. RAD/Chest PA and Lateral IMPRESSION: Progressive small bilateral pleural effusions with bibasilar atelectasis and/or infiltrate superimposed on mild degree of CHF. Electronically Signed: Manny Valle, at 15:28 EDT , Service support ,
--- NOTE | 2020-03-29 13:27 | CASEMGMT ---
CHARITY called Palliative Care and let Steffany know that patient is not being discharged today. She thanked CHARITY for the update. Nichol PURDY MSW
[2020-03-29] MEDS: Furosemide 100 MG/10 ML Vial 80 MG IV (17:14)
[2020-03-29 17:41] LABS: Bedside Glucose 176 mg/dL (70-110)
[2020-03-29] MEDS: Morphine 2 MG/ML Syringe 0.5 MG IV (18:52)
[2020-03-29] MEDS: Ondansetron 4 MG/2 ML Vial IV (20:45)
[2020-03-29] MEDS: Atorvastatin Calcium 40 MG Tablet PO (21:25)
--- NOTE | 2020-03-29 21:33 | NURSING ---
PATIENT DID HAVE SOME EMESIS AFTER TAKING PILLS EVEN WITH EFFORT OF ZOFRAN BEFORE. RN NOTED WHEEZING AFTERWARDS. PATIENT STATES THIS HAPPENED BEFORE AND WAS HAPPENING AT HOME.
[2020-03-29 21:55] LABS: Bedside Glucose 112 mg/dL (70-110)
--- NOTE | 2020-03-29 21:56 | NURSING ---
RN UPDATED RICCO ABOUT PATIENT PLAN OF CARE AND QUESTIONABLE CARDIOVERSION IN MORNING.
--- NOTE | 2020-03-29 22:16 | NURSING ---
Verbal report received from Dennis Becerra RN. This RN resuming care of patient at this time.
[2020-03-29] MEDS: Furosemide 100 MG/10 ML Vial 60 MG IV (23:02)
--- NOTE | 2020-03-29 23:41 | EKG12_ITS ---
Test Reason : POST PROCEDURE Blood Pressure : / mmHG Vent. Rate : 077 BPM Atrial Rate : 077 BPM P-R Int : 154 ms QRS Dur : 138 ms QT Int : 458 ms P-R-T Axes : 000 014 188 degrees QTc Int : 518 ms Sinus rhythm with occasional Premature ventricular complexes and Premature atrial complexes Left bundle branch block Abnormal ECG Confirmed by ISACC MONTOYA, CLAUDIO ([id number]), editor managing director JR SEVERINO ([id number]) on 04/04/2020 1:28:19 PM Referred By: DR FOX Confirmed By:CLAUDIO DEXTER MD
[2020-03-30] VITALS (24 sets, daily range): BP systolic 85–128; BP diastolic 67–88; PULSE 75–118; RESP 14–20; TEMP 36.2–37.3; O2SAT 93–100; BMI 24.5
[2020-03-30 02:51] LABS: Bedside Glucose 160 mg/dL (70-110)
--- NOTE | 2020-03-30 05:00 | EKG12_ITS ---
Test Reason : AM EKG Blood Pressure : / mmHG Vent. Rate : 110 BPM Atrial Rate : 117 BPM P-R Int : 000 ms QRS Dur : 142 ms QT Int : 352 ms P-R-T Axes : 000 014 201 degrees QTc Int : 476 ms Atrial fibrillation Left bundle branch block Abnormal ECG Confirmed by ISACC MONTOYA, CLAUDIO ([id number]), dictionary editor JR SEVERINO ([id number]) on 04/04/2020 1:12:13 PM Referred By: EDIS Confirmed By:CLAUDIO DEXTER MD
[2020-03-30 06:55] LABS: Bedside Glucose 125 mg/dL (70-110)
[2020-03-30 07:51] LABS: Absolute Neutrophil Count 9.7 X10^3/uL (2.0-7.7); Basophil# 0.01 X10^3/uL; Basophil% 0.1 % (0-1); Hematocrit 46.9 % (40-54); Hemoglobin 15.3 g/dL (13.0-16.5); Mean Corp Hgb Conc 32.6 g/dL (32-36); Mean Corpuscular Hgb 29.5 pg (27.0-32.0); Mean Corpuscular Volume 90.4 fL (80-94); Monocyte# 0.75 X10^3/uL; Monocyte% 6.3 % (0-10); NRBC Flagged by Analyzer 0 % (0-5); Neutrophil # 9.73 X10^3/uL (2.7-7.7); Neutrophil % 82.2 % (47-70); Platelet Count 137 K/mm3 (150-450); RBC Distribution Width CV 13.2 % (11.6-14.6); RBC Distribution Width SD 43.8 fl (35.1-43.9); Red Blood Count 5.19 M/mm3 (4.6-6.2); White Blood Count 11.8 K/mm3 (4.4-11.0)
[2020-03-30 08:06] LABS: Anion Gap 8 (5-15); BUN 57 mg/dL (7-18); BUN/Creat Ratio 24.6 RATIO (10-20); Calcium,Total 9.2 mg/dL (8.5-10.1); Chloride 102 mmol/L (98-107); Creatinine, Serum 2.32 mg/dL (0.70-1.30); EST Glomerular Filtration Rate 29 mL/min (>60); Est Glom Filt Rate - Afr Amer 35 mL/min (>60); Estimated Creatinine Clearance 24.55 ml/min; Glucose 125 mg/dL (74-106); Potassium 3.9 mmol/L (3.5-5.1); Sodium Level 138 mmol/L (136-145)
--- NOTE | 2020-03-30 08:13 | PN.CARD_ITS ---
Subjectve: Patient seen and evaluated. Objective: Vital Signs Temp Pulse Resp BP Pulse Ox 97.2 F L 109 H 18 112/88 H 99 03/30/20 06:44 03/30/20 06:44 03/30/20 06:44 03/30/20 06:44 03/30/20 06:44 Oxygen Flow Rate (L/min) 3.5 Oxygen Delivery Method Nasal Cannula Weight: 166 lb 7.184 oz Body Mass Index (BMI) 24.5 Intake and Output for Last 24 Hours 03/28/20 03/29/20 03/30/20 23:59 23:59 23:59 Intake Total 700 / 700 906.25 / 906.25 0 / 0 Output Total 100 / 100 200 / 200 375 / 375 Balance 600 / 600 706.25 / 706.25 -375 / -375 General: Awake, Alert, Oriented x 3 HEENT: PERRL, EOMI, Sclera Non Icteric Neck: Supple, Good ROM, No Lymph Node Enlargement Lungs: Clear to auscultation Cardiovascular: Regular Rhythm, Irregular Rhythm, Normal S1, Normal S2, No Murmurs, No Rubs, No Gallops Vascular: No Carotid Bruits, Normal Femoral Pulses, Normal Radial Pulses, Normal Dorsalis Pedal Pulse, Normal Posterior Tibial Pulses Abdomen: Bowel Sounds Present, Soft, Non Tender, No HSM, No Organomegaly Extremities: No Cyanosis, No Clubbing, No edema Musculoskeletal: No Erythema Lymphatic: No Lymph Node Enlargement Neurological: No Focal Motor or Sensory Deficit 03/30/20 07:04: Sodium 138, Potassium 3.9, Chloride 102, Carbon Dioxide 28.0, Anion Gap 8, BUN 57 H, Creatinine 2.32 H, Est GFR (MDRD) Af Amer 35 L, Est GFR (MDRD) Non-Af 29 L, BUN/Creatinine Ratio 24.6 H, Glucose 125 H, Calcium 9.2 03/30/20 07:04: WBC 11.8 H, RBC 5.19, Hgb 15.3, Hct 46.9, MCV 90.4, MCH 29.5, MCHC 32.6, Plt Count 137 L, MPV 13.0 H, Immature Gran % (Auto) 0.400, Neut % (Auto) 82.2 H, Lymph % (Auto) 11.0 L, Wright % (Auto) 6.3, Eos % (Auto) 0.0, Baso % (Auto) 0.1, Absolute Neuts (auto) 9.7 H, Nucleated RBC % 0 Rhythm: EKG: ECHO: Stress Test: Cardiac Cath: PCI: CT Surgery: Holter monitor: EPS: PPM: CXR: Chest CT Scan: Medical Necessity - Tobacco Use Smoking Status: Never smoker Assessment/Plan 1. Shortness of breath * The above is likely secondary to diastolic dysfunction. His echocardiogram demonstrated an ejection fraction of 45% with stage III diastolic dysfunction. I doubt that this is secondary to coronary ischemia. He did have minimal troponin elevation but I will suggest that we repeat his myocardial perfusion scan and unless this demonstrates significant ischemic territory would continue to manage him with medication. * Will continue him on the current dose of diuretics 2. Coronary artery disease * He does have known coronary artery disease as evidenced above. His last catheterization a year and a half ago demonstrated patency of his bypass buck ts. He has no acute EKG changes and I would recommend that we continue to manage him with risk factor modification. * A stress test demonstrated no evidence of ischemia and I do not think that coronary disease is playing a role here 3. Atrial fibrillation * His ventricular response rate does not appear to be very well controlled. * He did undergo a DC cardioversion this morning successfully and the plan to be to continue him on amiodarone maintenance dose. * Hopefully this would help his shortness of breath. 4. Hypertension * Good control he will continue the same medications with appropriately changed doses. * 5. Risk factor modification * He will continue with appropriate risk factor modification. He does in addition appear to be mildly depressed and this may need to be addressed. * * Thank you for allowing me to participate in the care of your patient. Please don't hesitate to call if any issues arise.
--- NOTE | 2020-03-30 08:16 | PCM.OP.PRO ---
Procedure Report Date of Procedure: 03/30/20 Elective DC cardioversion [80]-year-old [lady ]with a history of chronic persistent atrial fibrillation. [He ]was brought to the cardiac catheterization lab in the postabsorptive nonsedated state and was seen by [Dr. Lloyd Cedeño] of the critical care division. AP pads were applied and the patient was administered[4 mg of intravenous etomidate ]after informed consent was obtained. 200 J of biphasic DC cardioversion energy were applied with prompt reversal to sinus rhythm. Patient was noted to be in sinus bradycardia. [He] tolerated the procedure well. X Conclusion: Successful DC cardioversion from [atrial fibrillation] to sinus rhythm. Recommendations: Continue current medications Continue beta-kelsey Continue Eliquis Continue amiodarone
--- NOTE | 2020-03-30 08:28 | PRO.PCM_ITS ---
Problem List (1) Atrial fibrillation Status: Acute Qualifiers: Atrial fibrillation type: paroxysmal Qualified Code(s): I48.0 - Paroxysmal atrial fibrillation (2) Atherosclerosis of coronary artery of [place] heart with angina pectoris Status: Chronic Qualifiers: Comment: CABG x 4 COLES to LAD, SVG to diagonal, SVG to proximal end of SVG to diagonal going to OM 2, and SVG to PDA 10/30/16 (3) History of non-ST elevation myocardial infarction (NSTEMI) Status: Resolved (4) H/O coronary artery bypass surgery Status: Chronic Comment: CABG x 4: COLES-LAD, SVG-D1, SVG to proximal end of SVG to diagonal going to OM 2, and SVG-RPDA 10/30/16 (5) Ischemic cardiomyopathy Status: Chronic (6) Acute on chronic combined systolic (congestive) and diastolic (congestive) heart failure Status: Chronic (7) Secondary pulmonary arterial hypertension Status: Chronic (8) Paroxysmal atrial fibrillation Status: Chronic (9) Left bundle branch block (LBBB) Status: Chronic (10) Essential (primary) hypertension Status: Chronic (11) Hyperlipidemia Status: Chronic Qualifiers: Procedure Report Date of Procedure: 03/30/20 - Conscious sedation CONSCIOUS SEDATION REPORT BRIEF HISTORY OF PRESENT ILLNESS: The patient is an 80-year-old male who presented to [facility] for shortness of breath and was found to be in atrial fibrillation. The patient reports no PO intake since midnight. The patient does not have a history of obstructive sleep apnea. The patient reports no history of smoking and COPD. The patient denies any recent constitutional symptoms such as fevers, chills, nausea or vomiting. The patient denies previous anesthetic complications. Patient's last known ejection fraction was 29%. Patient is chronically anticoagulated with Eliquis. PHYSICAL EXAMINATION: VITAL SIGNS: Reviewed and were acceptable. GENERAL: The patient is a male, in no apparent distress, speaking in full sentences. HEENT: Normocephalic, atraumatic. Mucous membranes are moist and pink. Good mouth opening noted. Trachea is midline. Good neck mobility. MP II CHEST: S1, S2 irregularly irregular. No murmurs, rubs or gallops were noted. LUNGS: Clear to auscultation bilaterally without appreciable wheezes, rales or rhonchi. ABDOMEN: Soft, nontender, nondistended. Positive bowel sounds. EXTREMITIES: There is no clubbing, cyanosis or edema. ASA Class: II DESCRIPTION OF PROCEDURE: After confirmation of informed consent, the patient's anesthesia plan was reviewed in detail. Etomidate was chosen. Risks and benefits were reviewed and the patient agreed to proceed. At 8 AM, the patient was given 4 mg of etomidate. The patient achieved an appropriate level of sedation and received 1 attempt synchronized cardioversion, at [address] Lemus at the bedside. This was successful in achieving normal sinus rhythm. The patient was monitored until 8:12 AM, at which time the patient reached their baseline mental status and function. The patient tolerated the procedure well. COMPLICATIONS: None ESTIMATED BLOOD LOSS: None RECOMMENDATIONS: Okay to recover in usual fashion. [id number]: Other Procedure See Report - [id number] -12 min conscious sedation
[2020-03-30] MEDS: 0.9% Saline Lock 10 ML Syringe IV ×3 (09:17→16:48)
--- NOTE | 2020-03-30 11:08 | NURSING ---
Update provided to Doug. luna
[2020-03-30 12:16] LABS: Bedside Glucose 115 mg/dL (70-110)
--- NOTE | 2020-03-30 15:56 | PCM.PN.HOSP ---
Reason for Visit: Follow-up on atrial fibrillation/acute CHF Subjective: Patient was seen and examined. Patient was seen and examined. Complains of severe nausea. Seen by speech therapy. Nausea is with both food and drinks. Patient has not had any bowel movement since admission. He has been however been passing gas. Objective: Physical exam: General: Alert, Oriented x3, Cooperative HEENT: Atraumatic, PERRLA, EOMI, Normocephalic Neck: Supple, No JVD, Negative Carotid Bruits Lungs: Diminished, Wheezes Cardiovascular: Tachycardic, - - Atrial fibrillation Abdomen: Bowel Sounds Present, Soft, Non Tender, Non-Distended Extremities: No clubbing, No cyanosis, No edema, Capillary Refill Less than 3 Seconds Skin: No rashes, No breakdown Musculoskeletal: No Tenderness to Palpation of Joints or Extremities Neurological: Cranial nerves II-XII grossly intact, Neuro grossly intact Psych/Mental Status: Normal Affect, Appropriate Vitals/I&O's: Vital Signs Temp Pulse Resp BP Pulse Ox 97.1 F L 81 20 H 112/68 94 03/30/20 12:45 03/30/20 15:00 03/30/20 12:45 03/30/20 14:15 03/30/20 14:15 Oxygen Flow Rate (L/min) 1 Oxygen Delivery Method Room Air Weight: 75.5 kg Body Mass Index (BMI) 24.5 Intake and Output for Last 24 Hours 03/28/20 03/29/20 03/30/20 23:59 23:59 23:59 Intake Total 700 / 700 906.25 / 906.25 243 / 243 Output Total 100 / 100 200 / 200 375 / 375 Balance 600 / 600 706.25 / 706.25 -132 / -132 Laboratory Results 03/29/20 16:34: POC Glucose 176 H 03/29/20 21:21: POC Glucose 112 H 03/30/20 02:27: POC Glucose 160 H 03/30/20 06:40: POC Glucose 125 H 03/30/20 07:04: Sodium 138, Potassium 3.9, Chloride 102, Carbon Dioxide 28.0, Anion Gap 8, BUN 57 H, Creatinine 2.32 H, Estim Creat Clear Calc 24.55, Est GFR (MDRD) Af Amer 35 L, Est GFR (MDRD) Non-Af 29 L, BUN/Creatinine Ratio 24.6 H, Glucose 125 H, Calcium 9.2 03/30/20 07:04: WBC 11.8 H, RBC 5.19, Hgb 15.3, Hct 46.9, MCV 90.4, MCH 29.5, MCHC 32.6, RDW Std Deviation 43.8, RDW Coeff of Shashank 13.2, Plt Count 137 L, MPV 13.0 H, Immature Gran % (Auto) 0.400, Neut % (Auto) 82.2 H, Lymph % (Auto) 11.0 L, Simpson % (Auto) 6.3, Eos % (Auto) 0.0, Baso % (Auto) 0.1, Absolute Neuts (auto) 9.7 H, Absolute Lymphs (auto) 1.30, Nucleated RBC % 0 03/30/20 12:05: POC Glucose 115 H Current Medications Albuterol/Ipratropium (Duoneb) 3 ml INHALATION Q6HWA.RT [facility] Last Admin: 03/30/20 12:39 Dose: Not Given Documented by: Apixaban (Eliquis) 2.5 mg PO BID [facility] Last Admin: 03/30/20 11:09 Dose: Not Given Documented by: Aspirin (Ecotrin) 81 mg PO DAILY@0800 [facility] Last Admin: 03/30/20 11:09 Dose: Not Given Documented by: Atorvastatin Calcium (Lipitor) 40 mg PO QHS [facility] Last Admin: 03/29/20 21:25 Dose: 40 mg Documented by: Cholecalciferol (Vitamin D (25mcg)) 5,000 unit PO DAILY [facility] Last Admin: 03/30/20 11:10 Dose: Not Given Documented by: Furosemide (Lasix) 60 mg PO BID@1000,1800 [facility] Last Admin: 03/30/20 11:10 Dose: Not Given Documented by: Glimepiride (Amaryl) 4 mg PO BIDCM [facility] Last Admin: 03/30/20 11:09 Dose: Not Given Documented by: Sodium Chloride () 500 mls @ 0 mls/hr IV .Q0M [facility] Pantoprazole Sodium 40 mg/ (Sodium Chloride) 110 mls @ 330 mls/hr IV Q12 [facility] Last Infusion: 03/30/20 14:36 Dose: Infused Documented by: Insulin Glargine (Lantus (Bkc)) 10 units SC DAILY [facility] Last Admin: 03/30/20 12:06 Dose: Not Given Documented by: Insulin Human Lispro (Humalog Kwikpen ([facility])) 0 unit SC ACHS & 3AM [facility]; Protocol Last Admin: 03/30/20 12:07 Dose: Not Given Documented by: Isosorbide Mononitrate (Imdur) 30 mg PO DAILY [facility] Last Admin: 03/30/20 11:09 Dose: Not Given Documented by: Metoprolol Tartrate (Lopressor (Beta Ivy)) 100 mg PO BID [facility] Last Admin: 03/30/20 11:10 Dose: Not Given Documented by: Metoprolol Tartrate (Lopressor (Beta Ivy)) 5 mg IV Q2H PRN PRN PRN Reason: heart rate > 110 Last Admin: 03/29/20 06:06 Dose: 5 mg Documented by: Morphine Sulfate () 4 mg IV Q3H PRN PRN PRN Reason: Pain Score 6-10/10 Nitroglycerin (Nitrostat) 0.4 mg SUBLINGUAL Q5M PRN PRN Reason: CARDIAC/CHEST PAIN Ondansetron HCl (Zofran) 4 mg IV Q8H PRN PRN PRN Reason: NAUSEA Last Admin: 03/29/20 20:45 Dose: 4 mg Documented by: Potassium Chloride (K-Dur) 20 meq PO DAILY [facility] Last Admin: 03/30/20 11:09 Dose: Not Given Documented by: Promethazine HCl (Phenergan) 6.25 mg IV Q6H PRN PRN PRN Reason: NAUSEA/VOMITING Last Admin: 03/28/20 21:52 Dose: 6.25 mg Documented by: Ranolazine (Ranexa) 500 mg PO BID [facility] Last Admin: 03/30/20 11:10 Dose: Not Given Documented by: Sodium Chloride () 10 - 40 ml IV UD PRN PRN Reason: SALINE FLUSH Last Admin: 03/30/20 11:28 Dose: 10 ml Documented by: STROKE Vital Signs/Narrative: Vital Signs Temp Pulse Resp BP BP Pulse Ox 03/30/20 15:00 81 03/30/20 14:15 75 112/68 94 03/30/20 13:15 82 110/70 95 03/30/20 12:45 97.1 F L 80 20 H 116/78 94 03/30/20 12:15 97.1 F L 83 18 116/78 98 Medical Necessity - Tobacco Use Smoking Status: Never smoker Assessment/Plan All Active Problems (Last Updated 03/13/20 @ 11:23 by CARLENE Porter) Atrial fibrillation (Acute) History of non-ST elevation myocardial infarction (NSTEMI) (Resolved 05/2017) Acute respiratory failure with hypoxemia (Resolved) Dyspnea (Resolved) Dyspnea on exertion (Resolved) Shortness of breath (Resolved) 1. A fib with RVR, status post cardioversion today, patient remains in normal sinus rhythm Continue metoprolol, apixaban 2. Acute on chronic combined CHF, EF 45%, diastolic dysfunction, improving Continue to monitor on CHF protocol, Lasix on hold on account of CATE 3. CATE on CKD stage 3, creatinine elevated at 2.32 Give gentle IV fluids, repeat blood work in a.m. 3. CAD s/p CABG/h/o CVA, continue on aspirin, apixaban, metoprolol, Ranexa, statin 6. Type 2 DM, sugars are controlled, On Amaryl and Lantus. Hold Amaryl and Lantus tonight, as patient is now eating well Continue blood glucose checks and insulin sliding scale 7. Hypertension, continue on metoprolol 8. Hyperlipidemia, on statin 9. DVT Ppx- on apixaban Inpatient E&M: 76983 Subs Hosp L2
--- NOTE | 2020-03-30 16:33 | CASEMGMT ---
Social Work Note Pt is wanting [facility] to follow up with pt for Palliative Services once pt is discharged and pt is home. SW placed green sheet on chart for [facility] to be notified when pt is discharged and for discharge paperwork to be faxed. Green sheet on chart. Azucena Barry [employer], MANAGER FINANCIAL REPORTING
[2020-03-30 16:46] LABS: Bedside Glucose 97 mg/dL (70-110)
[2020-03-30] MEDS: Ondansetron 4 MG/2 ML Vial IV (16:48)
[2020-03-30] MEDS: Bisacodyl 10 MG Suppository RECTAL (17:16)
[2020-03-30] MEDS: Furosemide 40 MG/4 ML Vial IV (17:24)
[2020-03-30] MEDS: 0.9% Normal Saline 1,000 ML 75 ML IV (18:39)
[2020-03-30 21:56] LABS: Bedside Glucose 77 mg/dL (70-110)
[2020-03-31] VITALS (9 sets, daily range): BP systolic 113–143; BP diastolic 66–85; PULSE 67–91; RESP 14–20; TEMP 36.2–36.6; O2SAT 93–99
[2020-03-31 03:56] LABS: Bedside Glucose 46 mg/dL (70-110)
[2020-03-31] MEDS: Dextrose 50%-Water 25 GM/50 ML DISP.SYRIN IV (04:00)
[2020-03-31] MEDS: Dext 5%-0.45% NS 1,000 ML 75 ML IV (04:01)
[2020-03-31 04:26] LABS: Bedside Glucose 115 mg/dL (70-110)
[2020-03-31 06:55] LABS: Bedside Glucose 161 mg/dL (70-110)
[2020-03-31 08:08] LABS: Absolute Lymphocyte Count 0.89 X10^3/uL (0.83-4.51); Absolute Neutrophil Count 9.8 X10^3/uL (2.0-7.7); Basophil# 0.02 X10^3/uL; Basophil% 0.2 % (0-1); Hematocrit 50.7 % (40-54); Hemoglobin 16.5 g/dL (13.0-16.5); Lymphocyte # 0.89 X10^3/ul (4.0); Lymphocyte % 7.8 % (19-41); Mean Corp Hgb Conc 32.5 g/dL (32-36); Mean Corpuscular Hgb 29.8 pg (27.0-32.0); Mean Corpuscular Volume 91.7 fL (80-94); Mean Platelet Vol. 12.3 fl (6.2-12.0); Monocyte# 0.76 X10^3/uL; Monocyte% 6.6 % (0-10); NRBC Flagged by Analyzer 0 % (0-5); Neutrophil # 9.76 X10^3/uL (2.7-7.7); Neutrophil % 85.1 % (47-70); Platelet Count 148 K/mm3 (150-450); RBC Distribution Width CV 13.4 % (11.6-14.6); RBC Distribution Width SD 44.6 fl (35.1-43.9); Red Blood Count 5.53 M/mm3 (4.6-6.2); White Blood Count 11.5 K/mm3 (4.4-11.0)
[2020-03-31] MEDS: Aspirin E.C. 81 MG Tablet PO (08:20)
[2020-03-31] MEDS: Ondansetron 4 MG/2 ML Vial IV (08:20)
[2020-03-31] MEDS: 0.9% Saline Lock 10 ML Syringe IV ×3 (08:21→21:39)
[2020-03-31] MEDS: Etomidate 20 MG/10 ML Vial IV (08:24)
[2020-03-31 09:09] LABS: ALB/GLOB Ratio 0.9 RATIO (0.9-2.4); AST(SGOT) 483 U/L (15-37); Alanine Aminotransfer ALT/SGPT 1078 U/L (16-61); Albumin, Serum 3.2 g/dL (3.2-5.0); Alkaline Phosphatase 141 U/L (45-117); Anion Gap 7 (5-15); BUN 58 mg/dL (7-18); BUN/Creat Ratio 24.7 RATIO (10-20); Chloride 104 mmol/L (98-107); Creatinine, Serum 2.35 mg/dL (0.70-1.30); EST Glomerular Filtration Rate 28 mL/min (>60); Est Glom Filt Rate - Afr Amer 34 mL/min (>60); Estimated Creatinine Clearance 24.24 ml/min; Globulin 3.5 g/dL (2.2-4.2); Glucose 177 mg/dL (74-106); Potassium 3.8 mmol/L (3.5-5.1); Protein, Total 6.7 g/dL (6.4-8.2); Sodium Level 139 mmol/L (136-145)
--- NOTE | 2020-03-31 09:52 | US_ITS ---
STUDY: ABDOMINAL ULTRASOUND - RIGHT UPPER QUADRANT REASON FOR VISIT: Male, 80 years old. Abnormal labs. TECHNIQUE: Ultrasound evaluation of the right upper quadrant was performed with real-time and static lutz-scale imaging. TECHNICAL QUALITY: Adequate. COMPARISON: None. FINDINGS: Liver: The liver measures 13.2 cm. There is normal echogenicity of the liver. The bile ducts are within normal limits. There is hepatic color flow. The direction of portal flow is hepatopetal. There is no demonstrated mass lesion. Gallbladder: Normal distended gallbladder. The gallbladder wall measures 3 mm. There is a negative sonographic Adkins''s sign. There is no pericholecystic fluid. There are no gallstones. There is sludge noted in the gallbladder. Common Bile Duct (C.B.D.): The common bile duct measures 3 mm. Pancreas: There is nonvisualization of the pancreas. Right Kidney: Normal size of the right kidney. The right kidney measures 8.9 cm. Normal renal cortex. There is no demonstrated renal mass or cyst. There is no right hydronephrosis. There is a right pleural effusion noted. US/Liver IMPRESSION: Right pleural effusion. Gallbladder sludge. Otherwise, normal sonographic appearance of the gallbladder. Electronically Signed: Jaime Chen, at 19:17 EDT Tel , Service support ,
--- NOTE | 2020-03-31 09:54 | US_ITS ---
STUDY: RENAL ULTRASOUND - COMPLETE REASON FOR EXAM: Male, 80 years old. Renal insufficiency TECHNIQUE: Ultrasound evaluation of the kidneys was performed with real-time and static shin-scale imaging. COMPARISON: None available. FINDINGS: RIGHT KIDNEY: Normal location of the right kidney, which is normal in size. The right kidney measures 9.5 cm. There is a normal cortex of the right kidney. There is no right renal mass or cyst. There are no right renal calculi. There is no right hydronephrosis. DISTAL RIGHT URETER: There is non-visualization of the distal right ureter. There is no demonstrated right ureterovesical junction calculus. There is no demonstrated right ureteral jet. LEFT KIDNEY: Normal location of the left kidney, which is normal in size. The left kidney measures 9.0 cm. There is a normal cortex of the left kidney. There is no left renal mass or cyst. There are no left renal calculi. There is no left hydronephrosis. DISTAL LEFT URETER: There is non-visualization of the distal left ureter. There is no demonstrated left ureterovesical junction calculus. There is no demonstrated left ureteral jet. AORTA: Not visualized. I.V.C.: Not visualized. BLADDER: Not visualized. US/Kidney and Bladder IMPRESSION: Normal kidneys. No hydronephrosis. Bladder not visualized. Electronically Signed: Jaime Chen, at 19:37 EDT Tel , Service support ,
[2020-03-31] MEDS: Metoclopramide 10 MG/2 ML Vial IV (10:54)
--- NOTE | 2020-03-31 12:30 | PCM.PN.HOSP ---
<Aryan Pichardo - Last Filed: 03/31/20 12:30> Reason for Visit: Ongoing nausea with dry heaves, poor appetite, little ability to tolerate PO intake. Ok with ice chips. No CP, palp, SOB. No fever/chills. Vitals/I&O's: Vital Signs Temp Pulse Resp BP Pulse Ox 97.2 F L 90 20 H 127/78 H 99 03/31/20 09:00 03/31/20 11:00 03/31/20 09:00 03/31/20 09:53 03/31/20 09:00 Oxygen Flow Rate (L/min) 1 Oxygen Delivery Method Room Air Weight: 165 lb 2.02 oz Body Mass Index (BMI) 24.5 Intake and Output for Last 24 Hours 03/29/20 03/30/20 03/31/20 23:59 23:59 23:59 Intake Total 906.25 / 906.25 571.75 / 571.75 1200.00 / 1200.00 Output Total 200 / 200 975 / 975 425 / 425 Balance 706.25 / 706.25 -403.25 / -403.25 775.00 / 775.00 General: Alert, Oriented x3, Cooperative HEENT: Atraumatic, PERRLA, EOMI, Normocephalic Neck: Supple, No JVD, Negative Carotid Bruits Lungs: Clear to auscultation, Normal air movement Cardiovascular: Regular rate, No murmurs Abdomen: Bowel Sounds Present, Soft, Non Tender Extremities: No edema, Capillary Refill Less than 3 Seconds Skin: No rashes, No breakdown Musculoskeletal: No Tenderness to Palpation of Joints or Extremities Neurological: Cranial nerves II-XII grossly intact Psych/Mental Status: Depressed, Alert and oriented to time, place, person, mood and affect Laboratory Results 03/30/20 16:30: POC Glucose 97 03/30/20 21:09: POC Glucose 77 03/31/20 03:03: POC Glucose 46 L 03/31/20 04:19: POC Glucose 115 H 03/31/20 06:48: POC Glucose 161 H 03/31/20 07:58: WBC 11.5 H, RBC 5.53, Hgb 16.5, Hct 50.7, MCV 91.7, MCH 29.8, MCHC 32.5, RDW Std Deviation 44.6 H, RDW Coeff of Shashank 13.4, Plt Count 148 L, MPV 12.3 H, Immature Gran % (Auto) 0.300, Neut % (Auto) 85.1 H, Lymph % (Auto) 7.8 L, Labette % (Auto) 6.6, Eos % (Auto) 0.0, Baso % (Auto) 0.2, Absolute Neuts (auto) 9.8 H, Absolute Lymphs (auto) 0.89, Nucleated RBC % 0 03/31/20 07:58: Sodium 139, Potassium 3.8, Chloride 104, Carbon Dioxide 28.0, Anion Gap 7, BUN 58 H, Creatinine 2.35 H, Estim Creat Clear Calc 24.24, Est GFR (MDRD) Af Amer 34 L, Est GFR (MDRD) Non-Af 28 L, BUN/Creatinine Ratio 24.7 H, Glucose 177 H, Calcium 9.0, Total Bilirubin 2.40 H, AST 483 H, ALT 1078 H, Alkaline Phosphatase 141 H, Total Protein 6.7, Albumin 3.2, Globulin 3.5, Albumin/Globulin Ratio 0.9 03/31/20 11:12: Hepatitis A IgM Ab Pending, Hep Bs Antigen Pending, Hep B Core IgM Ab Pending, Hepatitis C Ab (EIA) Pending Current Medications Albuterol/Ipratropium (Duoneb) 3 ml INHALATION Q6HWA.RT [facility] Last Admin: 03/31/20 07:10 Dose: Not Given Documented by: Apixaban (Eliquis) 2.5 mg PO BID [facility] Last Admin: 03/31/20 09:52 Dose: Not Given Documented by: Aspirin (Ecotrin) 81 mg PO DAILY@0800 [facility] Last Admin: 03/31/20 08:20 Dose: 81 mg Documented by: Atorvastatin Calcium (Lipitor) 40 mg PO QHS [facility] Last Admin: 03/30/20 21:11 Dose: Not Given Documented by: Cholecalciferol (Vitamin D (25mcg)) 5,000 unit PO DAILY [facility] Last Admin: 03/31/20 09:53 Dose: Not Given Documented by: Dextrose (D50w Syringe) 0 gm IV X1 PRN; Protocol PRN Reason: Hypoglycemia Last Admin: 03/31/20 04:00 Dose: 25 gm Documented by: Furosemide (Lasix) 60 mg PO BID@1000,1800 [facility] Last Admin: 03/30/20 11:10 Dose: Not Given Documented by: Furosemide (Lasix) 40 mg IV BID@1000,1800 [facility] Last Admin: 03/30/20 17:24 Dose: 40 mg Documented by: Glimepiride (Amaryl) 4 mg PO BIDCM [facility] Last Admin: 03/30/20 16:31 Dose: Not Given Documented by: Glucagon () 1 mg IM .X1 PRN PRN Reason: Hypoglycemia Sodium Chloride () 500 mls @ 0 mls/hr IV .Q0M [facility] Pantoprazole Sodium 40 mg/ (Sodium Chloride) 110 mls @ 330 mls/hr IV Q12 [facility] Last Infusion: 03/31/20 11:23 Dose: Infused Documented by: Insulin Glargine (Lantus ([facility])) 10 units SC DAILY [facility] Last Admin: 03/30/20 12:06 Dose: Not Given Documented by: Insulin Human Lispro (Humalog Kwikpen ([facility])) 0 unit SC ACHS & 3AM [facility]; Protocol Last Admin: 03/31/20 11:22 Dose: Not Given Documented by: Isosorbide Mononitrate (Imdur) 30 mg PO DAILY [facility] Last Admin: 03/31/20 09:52 Dose: Not Given Documented by: Metoprolol Tartrate (Lopressor (Beta Ivy)) 100 mg PO BID [facility] Last Admin: 03/31/20 09:53 Dose: Not Given Documented by: Metoprolol Tartrate (Lopressor (Beta Ivy)) 5 mg IV Q2H PRN PRN PRN Reason: heart rate > 110 Last Admin: 03/29/20 06:06 Dose: 5 mg Documented by: Mirtazapine (Remeron) 15 mg PO QHS [facility] Morphine Sulfate () 4 mg IV Q3H PRN PRN PRN Reason: Pain Score 6-10/10 Nitroglycerin (Nitrostat) 0.4 mg SUBLINGUAL Q5M PRN PRN Reason: CARDIAC/CHEST PAIN Ondansetron HCl (Zofran) 4 mg IV Q8H PRN PRN PRN Reason: NAUSEA Last Admin: 03/31/20 08:20 Dose: 4 mg Documented by: Potassium Chloride (K-Dur) 20 meq PO DAILY [facility] Last Admin: 03/31/20 09:52 Dose: Not Given Documented by: Ranolazine (Ranexa) 500 mg PO BID [facility] Last Admin: 03/31/20 09:53 Dose: Not Given Documented by: Sodium Chloride () 10 - 40 ml IV UD PRN PRN Reason: SALINE FLUSH Last Admin: 03/31/20 10:09 Dose: 10 ml Documented by: STROKE Vital Signs/Narrative: Vital Signs Temp Pulse Resp BP Pulse Ox 03/31/20 11:00 90 03/31/20 09:53 84 127/78 H 03/31/20 09:00 97.2 F L 84 20 H 127/78 H 99 Medical Necessity - Tobacco Use Smoking Status: Never smoker Assessment/Plan All Active Problems (Last Updated 03/13/20 @ 11:23 by CARLENE Porter) Atrial fibrillation (Acute) History of non-ST elevation myocardial infarction (NSTEMI) (Resolved 05/2017) Acute respiratory failure with hypoxemia (Resolved) Dyspnea (Resolved) Dyspnea on exertion (Resolved) Shortness of breath (Resolved) 1. pAfib RVR - NSR s/p cardioversion yesterday. Cardiology following. Metoprolol, eliquis. Off Amio 2. Acute on chronic combined CHF - stable. Lasix held for CATE 3. CATE - CKDIII - possibly 2/2 lasix and pts ongoing nausea with little to no PO intake - trend. Renal US pending. Gentle fluids. 4. Elevated LFTs, T Bili - ? amio tox, off amio. liver US pending, Hep panel pending. 5. Intractable nausea - trial reglan. minimal effect of zofran. Gen Surg consulted. 6. DMt2 - hold glycemics with low sugar and no PO intake. DVT ppx: eliquis DC planning: pending resolution of intractable nausea This patient was seen by Aryan Pichardo PA-C under the supervision of Dr. Carobne. <Nancy Carbone - Last Filed: 03/31/20 13:56> Vitals/I&O's: Vital Signs Temp Pulse Resp BP Pulse Ox 97.2 F L 90 20 H 127/78 H 99 03/31/20 09:00 03/31/20 11:00 03/31/20 09:00 03/31/20 09:53 03/31/20 09:00 Oxygen Flow Rate (L/min) 1 Oxygen Delivery Method Room Air Weight: 74.9 kg Body Mass Index (BMI) 24.5 Intake and Output for Last 24 Hours 03/29/20 03/30/20 03/31/20 23:59 23:59 23:59 Intake Total 906.25 / 906.25 571.75 / 571.75 1200.00 / 1200.00 Output Total 200 / 200 975 / 975 425 / 425 Balance 706.25 / 706.25 -403.25 / -403.25 775.00 / 775.00 Laboratory Results 03/30/20 16:30: POC Glucose 97 03/30/20 21:09: POC Glucose 77 03/31/20 03:03: POC Glucose 46 L 03/31/20 04:19: POC Glucose 115 H 03/31/20 06:48: POC Glucose 161 H 03/31/20 07:58: WBC 11.5 H, RBC 5.53, Hgb 16.5, Hct 50.7, MCV 91.7, MCH 29.8, MCHC 32.5, RDW Std Deviation 44.6 H, RDW Coeff of Shashank 13.4, Plt Count 148 L, MPV 12.3 H, Immature Gran % (Auto) 0.300, Neut % (Auto) 85.1 H, Lymph % (Auto) 7.8 L, Labette % (Auto) 6.6, Eos % (Auto) 0.0, Baso % (Auto) 0.2, Absolute Neuts (auto) 9.8 H, Absolute Lymphs (auto) 0.89, Nucleated RBC % 0 03/31/20 07:58: Sodium 139, Potassium 3.8, Chloride 104, Carbon Dioxide 28.0, Anion Gap 7, BUN 58 H, Creatinine 2.35 H, Estim Creat Clear Calc 24.24, Est GFR (MDRD) Af Amer 34 L, Est GFR (MDRD) Non-Af 28 L, BUN/Creatinine Ratio 24.7 H, Glucose 177 H, Calcium 9.0, Total Bilirubin 2.40 H, AST 483 H, ALT 1078 H, Alkaline Phosphatase 141 H, Total Protein 6.7, Albumin 3.2, Globulin 3.5, Albumin/Globulin Ratio 0.9 03/31/20 11:12: Hepatitis A IgM Ab Pending, Hep Bs Antigen Pending, Hep B Core IgM Ab Pending, Hepatitis C Ab (EIA) Pending 03/31/20 11:22: POC Glucose 163 H Current Medications Albuterol/Ipratropium (Duoneb) 3 ml INHALATION Q6HWA.RT [facility] Last Admin: 03/31/20 13:00 Dose: Not Given Documented by: Apixaban (Eliquis) 2.5 mg PO BID [facility] Last Admin: 03/31/20 09:52 Dose: Not Given Documented by: Aspirin (Ecotrin) 81 mg PO DAILY@0800 [facility] Last Admin: 03/31/20 08:20 Dose: 81 mg Documented by: Atorvastatin Calcium (Lipitor) 40 mg PO QHS [facility] Last Admin: 03/30/20 21:11 Dose: Not Given Documented by: Cholecalciferol (Vitamin D (25mcg)) 5,000 unit PO DAILY [facility] Last Admin: 03/31/20 09:53 Dose: Not Given Documented by: Dextrose (D50w Syringe) 0 gm IV X1 PRN; Protocol PRN Reason: Hypoglycemia Last Admin: 03/31/20 04:00 Dose: 25 gm Documented by: Furosemide (Lasix) 60 mg PO BID@1000,1800 [facility] Last Admin: 03/30/20 11:10 Dose: Not Given Documented by: Furosemide (Lasix) 40 mg IV BID@1000,1800 [facility] Last Admin: 03/30/20 17:24 Dose: 40 mg Documented by: Glimepiride (Amaryl) 4 mg PO BIDCM [facility] Last Admin: 03/30/20 16:31 Dose: Not Given Documented by: Glucagon () 1 mg IM .X1 PRN PRN Reason: Hypoglycemia Sodium Chloride () 500 mls @ 0 mls/hr IV .Q0M [facility] Pantoprazole Sodium 40 mg/ (Sodium Chloride) 110 mls @ 330 mls/hr IV Q12 [facility] Last Infusion: 03/31/20 11:23 Dose: Infused Documented by: Insulin Glargine (Lantus ([facility])) 10 units SC DAILY [facility] Last Admin: 03/30/20 12:06 Dose: Not Given Documented by: Insulin Human Lispro (Humalog Kwikpen ([facility])) 0 unit SC ACHS & 3AM [facility]; Protocol Last Admin: 06/13/20 11:22 Dose: Not Given Documented by: Isosorbide Mononitrate (Imdur) 30 mg PO DAILY [facility] Last Admin: 03/31/20 09:52 Dose: Not Given Documented by: Metoprolol Tartrate (Lopressor (Beta Ivy)) 100 mg PO BID [facility] Last Admin: 03/31/20 09:53 Dose: Not Given Documented by: Metoprolol Tartrate (Lopressor ([facility])) 5 mg IV Q2H PRN PRN PRN Reason: heart rate > 110 Last Admin: 03/29/20 06:06 Dose: 5 mg Documented by: Mirtazapine (Remeron) 15 mg PO QHS [facility] Morphine Sulfate () 4 mg IV Q3H PRN PRN PRN Reason: Pain Score 6-10/10 Nitroglycerin (Nitrostat) 0.4 mg SUBLINGUAL Q5M PRN PRN Reason: CARDIAC/CHEST PAIN Ondansetron HCl (Zofran) 4 mg IV Q8H PRN PRN PRN Reason: NAUSEA Last Admin: 03/31/20 08:20 Dose: 4 mg Documented by: Potassium Chloride (K-Dur) 20 meq PO DAILY [facility] Last Admin: 03/31/20 09:52 Dose: Not Given Documented by: Ranolazine (Ranexa) 500 mg PO BID [facility] Last Admin: 03/31/20 09:53 Dose: Not Given Documented by: Sodium Chloride () 10 - 40 ml IV UD PRN PRN Reason: SALINE FLUSH Last Admin: 03/31/20 10:09 Dose: 10 ml Documented by: STROKE Vital Signs/Narrative: Vital Signs Pulse BP 03/31/20 11:00 90 03/31/20 09:53 84 127/78 H Assessment/Plan This patient was seen in conjunction with CARLENE Mcmanus. I have independently interviewed and examined the patient and reviewed pertinent historical, laboratory, and other data. Please refer to CARLENE Mcmanus note for his patient's presentation, findings, and recommendations. I have reviewed and his note and concur with his documentation Patient was seen and examined. Still has severe nausea to medications, water and food. Remains in normal sinus rhythm. Had episode of hypo-glycemia overnight. Has been on gentle IV fluids. His liver enzymes appear worst, so is his creatinine. Ultrasound of the liver and kidneys have been ordered. Patient is agreeable to be started on antidepressants. We will start him on Remeron. Physical exam: General: Alert, Oriented x3, Cooperative HEENT: Atraumatic, PERRLA, EOMI, Normocephalic Neck: Supple, No JVD, Negative Carotid Bruits Lungs: Diminished, Wheezes Cardiovascular: Tachycardic, - - Atrial fibrillation Abdomen: Bowel Sounds Present, Soft, Non Tender, Non-Distended Extremities: No clubbing, No cyanosis, No edema, Capillary Refill Less than 3 Seconds Skin: No rashes, No breakdown Musculoskeletal: No Tenderness to Palpation of Joints or Extremities Neurological: Cranial nerves II-XII grossly intact, Neuro grossly intact Psych/Mental Status: Normal Affect, Appropriate ASSESSMENT: 1. A. fib with RVR status post cardioversion 2. Episode of hypotension 3. Elevated liver enzymes, unclear etiology 4. Acute on chronic combined CHF, EF 45% 5. CATE on CKD stage III 6. CAD status post CABG 7. History of CVA 8. Type II DM 9. Hypertension 10. Hyperlipidemia Plan: Continue to hold insulin, Amaryl Continue to check blood sugars and cover with low dose insulin sliding scale if needed Encourage p.o. intake Hold Lasix Follow-up on ultrasound of the kidneys and liver Start on Remeron General surgery consult Follow-up with repeat blood work in a.m. Inpatient E&M: 99380 [facility] L3
[2020-03-31 12:36] LABS: Bedside Glucose 163 mg/dL (70-110)
[2020-03-31 17:01] LABS: Bedside Glucose 150 mg/dL (70-110)
--- NOTE | 2020-03-31 17:30 | CON.PCM_ITS ---
Reason for Consult Date of Consultation: 03/31/20 History of Present Illness: The patient is a 80 year old M admitted due to shortness of breath, A. fib RVR/congestive heart failure. Patient has been cardioverted in normal sinus rhythm and breathing has improved. Patient states last few days he has had naus ea and vomiting with any p.o. intake and does not feel like eating. He states that at home he was having nausea about once a day typically more in the evenings about an hour or so after eating denies any abdominal pain states he usually has bowel movements 1-2 times a day however here he did not have a bowel movement for 5 days from Thursday until yesterday. Patient is currently on Eliquis twice daily which he has been on for 2 weeks due to the A. fib. Pt BS have been in 200-300 for the last month, pt did have a shot in his lower back and was told that it may effect his sugars- about 4 weeks. 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) Diastolic dysfunction (Chronic) Secondary pulmonary arterial hypertension (Chronic) Paroxysmal atrial fibrillation (Chronic) Left bundle branch block (LBBB) (Chronic) Essential (primary) hypertension (Chronic) Hyperlipidemia (Chronic) Medical History: Medical History (Last Updated 03/13/20 @ 11:23 by CARLENE Porter) Atrial fibrillation (Acute) I48.91 Atherosclerosis of coronary artery of [place] heart with angina pectoris (Chronic) I25.119 CABG x 4 COLES to LAD, SVG to diagonal, SVG to proximal end of SVG to diagonal going to OM 2, and SVG to PDA 10/30/16 History of non-ST elevation myocardial infarction (NSTEMI) (Resolved) Onset Date: 05/2017 I25.2 Ischemic cardiomyopathy (Chronic) I25.5 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) I50.43 Diastolic dysfunction (Chronic) I51.89 Secondary pulmonary arterial hypertension (Chronic) I27.21 Paroxysmal atrial fibrillation (Chronic) I48.0 Left bundle branch block (LBBB) (Chronic) I44.7 Essential (primary) hypertension (Chronic) I10 Hyperlipidemia (Chronic) E78.5 Barretts esophagus K22.70 Bilateral pleural effusion Onset Date: 11/2019 J90 CKD (chronic kidney disease) N18.9 Prostate cancer C61 Transient ischemic attack G45.9 Type 2 diabetes mellitus E11.9 Acute respiratory failure with hypoxemia (Resolved) J96.01 Dyspnea on exertion (Resolved) R06.09 Shortness of breath (Resolved) R06.02 Allergies spironolactone Allergy (Verified 03/26/20 21:31) severe weakness lisinopril Adverse Reaction (Mild, Verified 03/26/20 21:31) Dry cough Home Medications: Ambulatory Orders Medication Instructions Recorded cholecalciferol (vitamin D3) 125 5,000 unit PO DAILY 02/16/19 mcg (5,000 unit) capsule albuterol sulfate 90 mcg/actuation 1 puff INHALATION Q6H 09/26/19 aerosol inhaler glimepiride 4 mg tablet 4 mg PO BID tab 09/26/19 tiotropium bromide 2.5 2 puff INHALATION DAILY PRN 09/26/19 mcg/actuation mist for inhalation isosorbide mononitrate 30 mg 30 mg PO DAILY #90 tab 01/16/20 tablet,extended release 24 hr apixaban 2.5 mg tablet 2.5 mg PO BID #60 tab 03/10/20 potassium chloride 20 mEq 20 meq PO DAILY #34 tab 03/19/20 tablet,extended release Atorvastatin Calcium [Lipitor] 50 mg PO BID 03/26/20 Amiodarone HCl [Cordarone] 200 mg PO BID #60 tab 03/29/20 Aspirin E.C. [Ecotrin] 81 mg PO DAILY@0800 #30 tab 03/29/20 Insulin Glargine [Lantus SoloStar 10 units SUBCUT DAILY #1 box 03/29/20 Pen] Metoprolol Tartrate [Lopressor 100 mg PO BID #60 tab 03/29/20 (beta ivy)] Ranolazine [Ranexa] 500 mg PO BID #60 tab 03/29/20 Mirtazapine [Remeron] 15 mg PO QHS #30 tab 04/02/20 Ondansetron HCl [Zofran] 4 mg PO Q6H PRN PRN #12 tab 04/02/20 Pantoprazole Sodium [Protonix] 40 mg PO DAILY #30 tab 04/02/20 Surgical History: Surgical History (Last Updated 03/30/20 @ 16:36 by Belle Gonzalez) H/O coronary artery bypass surgery (Chronic) Onset Date: 10/30/16 Z95.1 CABG x 4: COLES-LAD, SVG-D1, SVG to proximal end of SVG to diagonal going to OM 2, and SVG-RPDA 10/30/16 History of cardioversion Onset Date: 03/30/20 Z98.890 History of colonoscopy Z98.890 History of dental surgery Z92.89 History of esophagogastroduodenoscopy (EGD) Z98.890 History of left heart catheterization Onset Date: 07/23/18 Z98.890 [place] History of prostatectomy Z90.79 Surgical History: coronary bypass surgery Lives: Spouse/ Significant Other Smoking Status: Never smoker Alcohol: None Drugs: None - *Family History Paternal Family History: Family History (Last Reviewed 03/13/20 @ 11:22 by CARLENE Porter) Sister Diabetes Sister Colon cancer Diabetes CVA (cerebral vascular accident) Sister Diabetes Brother Heart disease Diabetes History Items: No pertinent history Review of Systems Constitutional: Reports: Anorexia HEENT: Denies: Difficulty Swallowing Cardiovascular: Denies: Chest Pain Respiratory: Denies: Shortness of breath at rest Gastrointestinal: Reports: Constipation, Nausea, Vomiting. Denies: Abdominal Pain Skin: Denies: Rash Hematologic/ Lymphatic: Denies: Anemia - Physical Exam Vitals/I&O's: Vital Signs Temp Pulse Resp BP Pulse Ox 97.8 F 82 16 113/66 95 03/31/20 15:00 03/31/20 15:00 03/31/20 15:00 03/31/20 15:00 06/13/20 15:00 Oxygen Flow Rate (L/min) 1 Oxygen Delivery Method Room Air Weight: 165 lb 2.02 oz Body Mass Index (BMI) 24.5 Intake and Output for Last 24 Hours 03/29/20 03/30/20 03/31/20 23:59 23:59 23:59 Intake Total 906.25 / 906.25 571.75 / 571.75 1200.00 / 1200.00 Output Total 200 / 200 975 / 975 425 / 425 Balance 706.25 / 706.25 -403.25 / -403.25 775.00 / 775.00 General: Alert, Oriented x3, Cooperative, No apparent distress HEENT: Atraumatic Lungs: Normal air movement Cardiovascular: Regular rate Abdomen: Soft, Non Tender, Non-Distended Extremities: No clubbing, No cyanosis, No edema Neurological: Cranial nerves II-XII grossly intact Psych/Mental Status: Flat Affect Laboratory Results 03/30/20 21:09: POC Glucose 77 03/31/20 03:03: POC Glucose 46 L 03/31/20 04:19: POC Glucose 115 H 03/31/20 06:48: POC Glucose 161 H 03/31/20 07:58: WBC 11.5 H, RBC 5.53, Hgb 16.5, Hct 50.7, MCV 91.7, MCH 29.8, MCHC 32.5, RDW Std Deviation 44.6 H, RDW Coeff of Shashank 13.4, Plt Count 148 L, MPV 12.3 H, Immature Gran % (Auto) 0.300, Neut % (Auto) 85.1 H, Lymph % (Auto) 7.8 L, [place] % (Auto) 6.6, Eos % (Auto) 0.0, Baso % (Auto) 0.2, Absolute Neuts (auto) 9.8 H, Absolute Lymphs (auto) 0.89, Nucleated RBC % 0 03/31/20 07:58: Sodium 139, Potassium 3.8, Chloride 104, Carbon Dioxide 28.0, Anion Gap 7, BUN 58 H, Creatinine 2.35 H, Estim Creat Clear Calc 24.24, Est GFR (MDRD) Af Amer 34 L, Est GFR (MDRD) Non-Af 28 L, BUN/Creatinine Ratio 24.7 H, Glucose 177 H, Calcium 9.0, Total Bilirubin 2.40 H, AST 483 H, ALT 1078 H, Alkaline Phosphatase 141 H, Total Protein 6.7, Albumin 3.2, Globulin 3.5, Albumin/Globulin Ratio 0.9 03/31/20 11:12: Hepatitis A IgM Ab Pending, Hep Bs Antigen Pending, Hep B Core IgM Ab Pending, Hepatitis C Ab (EIA) Pending 03/31/20 11:22: POC Glucose 163 H 03/31/20 16:18: POC Glucose 150 H Current Medications Albuterol/Ipratropium (Duoneb) 3 ml INHALATION Q6HWA.RT [facility] Last Admin: 03/31/20 13:00 Dose: Not Given Documented by: Apixaban (Eliquis) 2.5 mg PO BID [facility] Last Admin: 03/31/20 09:52 Dose: Not Given Documented by: Aspirin (Ecotrin) 81 mg PO DAILY@0800 [facility] Last Admin: 03/31/20 08:20 Dose: 81 mg Documented by: Atorvastatin Calcium (Lipitor) 40 mg PO QHS [facility] Last Admin: 03/30/20 21:11 Dose: Not Given Documented by: Cholecalciferol (Vitamin D (25mcg)) 5,000 unit PO DAILY [facility] Last Admin: 03/31/20 09:53 Dose: Not Given Documented by: Dextrose (D50w Syringe) 0 gm IV X1 PRN; Protocol PRN Reason: Hypoglycemia Last Admin: 03/31/20 04:00 Dose: 25 gm Documented by: Furosemide (Lasix) 60 mg PO BID@1000,1800 [facility] Last Admin: 03/30/20 11:10 Dose: Not Given Documented by: Furosemide (Lasix) 40 mg IV BID@1000,1800 [facility] Last Admin: 03/30/20 17:24 Dose: 40 mg Documented by: Glimepiride (Amaryl) 4 mg PO BIDCM [facility] Last Admin: 03/30/20 16:31 Dose: Not Given Documented by: Glucagon () 1 mg IM .X1 PRN PRN Reason: Hypoglycemia Sodium Chloride () 500 mls @ 0 mls/hr IV .Q0M [facility] Pantoprazole Sodium 40 mg/ (Sodium Chloride) 110 mls @ 330 mls/hr IV Q12 [facility] Last Infusion: 03/31/20 11:23 Dose: Infused Documented by: Insulin Glargine (Lantus ([facility])) 10 units SC DAILY [facility] Last Admin: 03/30/20 12:06 Dose: Not Given Documented by: Insulin Human Lispro (Humalog Kwikpen ([facility])) 0 unit SC ACHS & 3AM [facility]; Protocol Last Admin: 03/31/20 16:19 Dose: Not Given Documented by: Isosorbide Mononitrate (Imdur) 30 mg PO DAILY [facility] Last Admin: 03/31/20 09:52 Dose: Not Given Documented by: Metoprolol Tartrate (Lopressor (Beta Ivy)) 100 mg PO BID [facility] Last Admin: 03/31/20 09:53 Dose: Not Given Documented by: Metoprolol Tartrate (Lopressor (Beta Ivy)) 5 mg IV Q2H PRN PRN PRN Reason: heart rate > 110 Last Admin: 03/29/20 06:06 Dose: 5 mg Documented by: Mirtazapine (Remeron) 15 mg PO QHS [facility] Morphine Sulfate () 4 mg IV Q3H PRN PRN PRN Reason: Pain Score 6-10/10 Nitroglycerin (Nitrostat) 0.4 mg SUBLINGUAL Q5M PRN PRN Reason: CARDIAC/CHEST PAIN Ondansetron HCl (Zofran) 4 mg IV Q8H PRN PRN PRN Reason: NAUSEA Last Admin: 03/31/20 08:20 Dose: 4 mg Documented by: Potassium Chloride (K-Dur) 20 meq PO DAILY [facility] Last Admin: 03/31/20 09:52 Dose: Not Given Documented by: Ranolazine (Ranexa) 500 mg PO BID [facility] Last Admin: 03/31/20 09:53 Dose: Not Given Documented by: Sodium Chloride () 10 - 40 ml IV UD PRN PRN Reason: SALINE FLUSH Last Admin: 03/31/20 10:09 Dose: 10 ml Documented by: Assessment/Plan All Active Problems (Last Updated 03/13/20 @ 11:23 by CARLENE Porter) Amiodarone toxicity (Acute) Atrial fibrillation (Acute) History of non-ST elevation myocardial infarction (NSTEMI) (Resolved 05/2017) Acute respiratory failure with hypoxemia (Resolved) Dyspnea (Resolved) Dyspnea on exertion (Resolved) Shortness of breath (Resolved) 80-year-old male with A. fib status post cardioversion, elevated LFTs, gallbladder sludge ultrasound not officially read, nausea and vomiting, depre ssion 1. Patient does give a history of some nausea usually at towards the evening per hour after eating dinner for several weeks, however the last few days he has not been able to eat anything and had nausea and vomiting with any p.o. intake. Patient's liver functions have increased from 6/10 total bili went from 1.3- 2.4, AST is 483, ALT is 1000, alk phos is 141. Patient denies any abdominal pain. Ultrasound the gallbladder did show some sludge on my read did not appear to have any. Cholecystic fluid or thickened gallbladder wall, common bile duct is 3.5 mm within normal range. Liver functions do not correlate coincide with fairly normal-appearing gallbladder especially having an ALT in the thousands. Hepatitis panel pending. Discussed with patient that sometimes gallbladder and sludge can cause nausea vomiting however did discuss how they did not seem to coincide with his current liver functions. Discussed monitoring his liver functions and then possibly getting a HIDA scan tomorrow without CCK I did discuss with patient that since he has not really been eating for the last 3 days this does have a higher rate of false positives. Patient has no abdominal pain on exam. Nita Jo M.D. Pager: [phone] [facility] [address] [place] [address], Outpatient [place], [address] [place] [id number] Office: [phone] Inpatient E&M: [id number] Init Hosp L2
[2020-03-31 18:18] LABS: Urea Nitrogen, Urine 884 mg/dL (NO RANGE EST.); Urine Sodium 23 mmol/L (Not Establ.)
[2020-03-31 22:50] LABS: Bedside Glucose 93 mg/dL (70-110)
[2020-04-01] VITALS (14 sets, daily range): BP systolic 116–151; BP diastolic 75–88; PULSE 70–96; RESP 18; TEMP 36.4; O2SAT 96–98
[2020-04-01] MEDS: 0.9% Saline Lock 10 ML Syringe IV ×3 (03:17→10:13)
[2020-04-01] MEDS: Dextrose 50%-Water 25 GM/50 ML DISP.SYRIN IV (03:17)
[2020-04-01 03:41] LABS: Bedside Glucose 63 mg/dL (70-110)
[2020-04-01 03:55] LABS: Bedside Glucose 84 mg/dL (70-110)
[2020-04-01 06:25] LABS: Absolute Lymphocyte Count 0.85 X10^3/uL (0.83-4.51); Absolute Neutrophil Count 7.4 X10^3/uL (2.0-7.7); Hematocrit 45.2 % (40-54); Hemoglobin 14.6 g/dL (13.0-16.5); Lymphocyte # 0.85 X10^3/ul (4.0); Lymphocyte % 9.2 % (19-41); Mean Corp Hgb Conc 32.3 g/dL (32-36); Mean Corpuscular Hgb 29.5 pg (27.0-32.0); Mean Corpuscular Volume 91.3 fL (80-94); Mean Platelet Vol. 12.3 fl (6.2-12.0); Monocyte# 0.92 X10^3/uL; NRBC Flagged by Analyzer 0 % (0-5); Neutrophil # 7.42 X10^3/uL (2.7-7.7); Neutrophil % 80.4 % (47-70); Platelet Count 134 K/mm3 (150-450); RBC Distribution Width CV 13.4 % (11.6-14.6); RBC Distribution Width SD 43.9 fl (35.1-43.9); Red Blood Count 4.95 M/mm3 (4.6-6.2); White Blood Count 9.2 K/mm3 (4.4-11.0)
[2020-04-01 06:34] LABS: ALB/GLOB Ratio 0.9 RATIO (0.9-2.4); AST(SGOT) 186 U/L (15-37); Alanine Aminotransfer ALT/SGPT 670 U/L (16-61); Albumin, Serum 2.7 g/dL (3.2-5.0); Alkaline Phosphatase 117 U/L (45-117); Anion Gap 4 (5-15); BUN 48 mg/dL (7-18); BUN/Creat Ratio 25.7 RATIO (10-20); Calcium,Total 8.8 mg/dL (8.5-10.1); Chloride 108 mmol/L (98-107); Creatinine, Serum 1.87 mg/dL (0.70-1.30); EST Glomerular Filtration Rate 37 mL/min (>60); Est Glom Filt Rate - Afr Amer 45 mL/min (>60); Estimated Creatinine Clearance 30.46 ml/min; Globulin 3.1 g/dL (2.2-4.2); Glucose 94 mg/dL (74-106); Magnesium 1.9 mg/dL (1.6-2.6); Potassium 3.7 mmol/L (3.5-5.1); Protein, Total 5.8 g/dL (6.4-8.2); Sodium Level 143 mmol/L (136-145)
[2020-04-01 06:55] LABS: Bedside Glucose 76 mg/dL (70-110)
--- NOTE | 2020-04-01 08:18 | PN.SURG_ITS ---
Subjective: Patient states he is able to tolerate the ice chips however if he takes a sip of water he does have dry heaves still denies abdominal pain - Physical Exam Vitals/I&O's: Vital Signs Temp Pulse Resp BP Pulse Ox 97.6 F L 90 18 151/88 H 97 04/01/20 03:00 04/01/20 06:49 04/01/20 03:00 04/01/20 03:00 04/01/20 07:35 Oxygen Flow Rate (L/min) 1 Oxygen Delivery Method Room Air Weight: 164 lb 7.437 oz Body Mass Index (BMI) 24.5 Intake and Output for Last 24 Hours 03/30/20 03/31/20 04/01/20 23:59 23:59 23:59 Intake Total 571.75 / 571.75 1340.00 / 1340.00 Output Total 975 / 975 1045 / 1045 Balance -403.25 / -403.25 295.00 / 295.00 General: Alert, Oriented x3, Cooperative, No apparent distress HEENT: Atraumatic Lungs: Normal air movement Abdomen: Soft, Non Tender, Non-Distended Extremities: No clubbing, No cyanosis, No edema Laboratory Results 03/31/20 07:58: Sodium 139, Potassium 3.8, Chloride 104, Carbon Dioxide 28.0, Anion Gap 7, BUN 58 H, Creatinine 2.35 H, Estim Creat Clear Calc 24.24, Est GFR (MDRD) Af Amer 34 L, Est GFR (MDRD) Non-Af 28 L, BUN/Creatinine Ratio 24.7 H, Glucose 177 H, Calcium 9.0, Total Bilirubin 2.40 H, AST 483 H, ALT 1078 H, Alkaline Phosphatase 141 H, Total Protein 6.7, Albumin 3.2, Globulin 3.5, Albumin/Globulin Ratio 0.9 03/31/20 11:12: Hepatitis A IgM Ab Pending, Hep Bs Antigen Pending, Hep B Core IgM Ab Pending, Hepatitis C Ab (EIA) Pending 03/31/20 11:22: POC Glucose 163 H 03/31/20 16:18: POC Glucose 150 H 03/31/20 17:40: Ur Random Sodium 23, Urine Creatinine 59.70, Urine Urea Nitrogen 884 03/31/20 21:23: POC Glucose 93 04/01/20 03:06: POC Glucose 63 L 04/01/20 03:52: POC Glucose 84 04/01/20 05:45: WBC 9.2, RBC 4.95, Hgb 14.6, Hct 45.2, MCV 91.3, MCH 29.5, MCHC 32.3, RDW Std Deviation 43.9, RDW Coeff of Shashank 13.4, Plt Count 134 L, MPV 12.3 H , Immature Gran % (Auto) 0.400, Neut % (Auto) 80.4 H, Lymph % (Auto) 9.2 L, [place] % (Auto) 10.0, Eos % (Auto) 0.0, Baso % (Auto) 0.0, Absolute Neuts (auto) 7.4, Absolute Lymphs (auto) 0.85, Nucleated RBC % 0 04/01/20 05:45: Sodium 143, Potassium 3.7, Chloride 108 H, Carbon Dioxide 31.0, Anion Gap 4 L, BUN 48 H, Creatinine 1.87 H, Estim Creat Clear Calc 30.46, Est GFR (MDRD) Af Amer 45 L, Est GFR (MDRD) Non-Af 37 L, BUN/Creatinine Ratio 25.7 H , Glucose 94, Calcium 8.8, Magnesium 1.9, Total Bilirubin 2.00 H, AST 186 H, ALT 670 H, Alkaline Phosphatase 117, Total Protein 5.8 L, Albumin 2.7 L, Globulin 3.1, Albumin/Globulin Ratio 0.9 04/01/20 06:40: POC Glucose 76 Current Medications Albuterol/Ipratropium (Duoneb) 3 ml INHALATION Q6HWA.RT [facility] Last Admin: 04/01/20 07:00 Dose: Not Given Documented by: Apixaban (Eliquis) 2.5 mg PO BID [facility] Last Admin: 03/31/20 21:24 Dose: Not Given Documented by: Aspirin (Ecotrin) 81 mg PO DAILY@0800 [facility] Last Admin: 03/31/20 08:20 Dose: 81 mg Documented by: Atorvastatin Calcium (Lipitor) 40 mg PO QHS [facility] Last Admin: 03/31/20 21:24 Dose: Not Given Documented by: Cholecalciferol (Vitamin D (25mcg)) 5,000 unit PO DAILY [facility] Last Admin: 06/13/20 09:53 Dose: Not Given Documented by: Dextrose (D50w Syringe) 0 gm IV X1 PRN; Protocol PRN Reason: Hypoglycemia Last Admin: 04/01/20 03:17 Dose: 12.5 gm Documented by: Furosemide (Lasix) 60 mg PO BID@1000,1800 [facility] Last Admin: 03/30/20 11:10 Dose: Not Given Documented by: Furosemide (Lasix) 40 mg IV BID@1000,1800 [facility] Last Admin: 03/30/20 17:24 Dose: 40 mg Documented by: Glimepiride (Amaryl) 4 mg PO BIDCM [facility] Last Admin: 03/30/20 16:31 Dose: Not Given Documented by: Glucagon () 1 mg IM .X1 PRN PRN Reason: Hypoglycemia Sodium Chloride () 500 mls @ 0 mls/hr IV .Q0M [facility] Pantoprazole Sodium 40 mg/ (Sodium Chloride) 110 mls @ 330 mls/hr IV Q12 [facility] Last Infusion: 03/31/20 21:59 Dose: Infused Documented by: Insulin Glargine (Lantus (Bk)) 10 units SC DAILY [facility] Last Admin: 03/30/20 12:06 Dose: Not Given Documented by: Insulin Human Lispro (Humalog Kwikpen (Bk)) 0 unit SC ACHS & 3AM [facility]; Protocol Last Admin: 04/01/20 06:41 Dose: Not Given Documented by: Isosorbide Mononitrate (Imdur) 30 mg PO DAILY [facility] Last Admin: 03/31/20 09:52 Dose: Not Given Documented by: Metoprolol Tartrate (Lopressor (Beta Ivy)) 100 mg PO BID [facility] Last Admin: 03/31/20 21:24 Dose: Not Given Documented by: Metoprolol Tartrate (Lopressor (Beta Ivy)) 5 mg IV Q2H PRN PRN PRN Reason: heart rate > 110 Last Admin: 03/29/20 06:06 Dose: 5 mg Documented by: Mirtazapine (Remeron) 15 mg PO QHS [facility] Last Admin: 03/31/20 21:24 Dose: Not Given Documented by: Morphine Sulfate () 4 mg IV Q3H PRN PRN PRN Reason: Pain Score 6-10/10 Nitroglycerin (Nitrostat) 0.4 mg SUBLINGUAL Q5M PRN PRN Reason: CARDIAC/CHEST PAIN Ondansetron HCl (Zofran) 4 mg IV Q8H PRN PRN PRN Reason: NAUSEA Last Admin: 03/31/20 08:20 Dose: 4 mg Documented by: Potassium Chloride (K-Dur) 20 meq PO DAILY [facility] Last Admin: 03/31/20 09:52 Dose: Not Given Documented by: Ranolazine (Ranexa) 500 mg PO BID [facility] Last Admin: 03/31/20 21:24 Dose: Not Given Documented by: Sodium Chloride () 10 - 40 ml IV UD PRN PRN Reason: SALINE FLUSH Last Admin: 04/01/20 03:17 Dose: 10 ml Documented by: Medical Necessity - Tobacco Use Smoking Status: Never smoker Assessment/Plan All Active Problems (Last Updated 03/13/20 @ 11:23 by CARLENE Porter) Atrial fibrillation (Acute) History of non-ST elevation myocardial infarction (NSTEMI) (Resolved 05/2017) Acute respiratory failure with hypoxemia (Resolved) Dyspnea (Resolved) Dyspnea on exertion (Resolved) Shortness of breath (Resolved) 80-year-old male with A. fib status post cardioversion, elevated LFTs, gallbladder sludge ultrasound not officially read, nausea and vomiting, depression 1. Patient's LFTs did improve total bili is 2 and AST and ALT are decreased, alk phos is normal. Plan to get a HIDA scan without CCK however we may be unable to get these over the weekend. Nita Jo M.D. Pager: [phone] [facility] [address] [place] [address], Outpatient [facility], [address] [place] [address] Office: [phone] Inpatient E&M: [id number] [facility] L1
--- NOTE | 2020-04-01 08:20 | NM_ITS ---
CLINICAL: 80-year-old male with reported history of right upper quadrant abdominal pain. RADIONUCLIDE HEPATOBILIARY SCINTIGRAPHY COMPARISON: Abdominal ultrasound report 03/31/2020 FINDINGS: Following the intravenous administration of 5.4 mCi of 99m Tc Mebrofenin, hepatobiliary images reveal: 1. Relatively prompt and homogeneous radiopharmaceutical concentration is noted by a normal sized liver. No parenchymal defects are identified. 2. Gallbladder activity is identified at 45 minutes post radiopharmaceutical administration. 3. Small intestinal tract is observed at 30 minutes following tracer injection. 4. Washout of the radiopharmaceutical by the hepatic parenchyma appears qualitatively normal. 5. There is demonstrated duodenal-gastric reflux initiating at 45 minutes post tracer injection. NM/Hepatobilliary Imaging IMPRESSION: 1. Visualization of the gallbladder within 60 minutes post radiopharmaceutical administration excludes acute cholecystitis with 97% certitude. (Guillermina et al, Nucl Med [employer] pg. 35, 1981). 2. There is scintigraphic evidence of duodenal-gastric reflux as defined above. Electronically Signed: Walter An DO at 11:35 EDT Tel , Service support ,
[2020-04-01] MEDS: Ondansetron 4 MG/2 ML Vial IV (09:39)
[2020-04-01] MEDS: Aspirin E.C. 81 MG Tablet PO (09:43)
[2020-04-01] MEDS: Isosorbide Mononitrate 30 MG Tablet PO (09:43)
[2020-04-01] MEDS: Metoprolol Tartrate 100 MG Tablet PO ×2 (09:43→21:27)
[2020-04-01] MEDS: APIXABAN 2.5 MG TABLET PO ×2 (09:43→21:27)
[2020-04-01] MEDS: Ranolazine 500 MG Tablet PO (09:43)
[2020-04-01] MEDS: Metoclopramide 10 MG/2 ML Vial IV (10:13)
[2020-04-01] MEDS: 0.9% Normal Saline 1,000 ML 75 ML IV (10:14)
[2020-04-01 11:30] LABS: Bedside Glucose 92 mg/dL (70-110)
--- NOTE | 2020-04-01 12:27 | PN_ITS ---
<Aryan Pichardo - Last Filed: 04/01/20 12:27> Reason for Visit: Intractable nausea Subjective: Pt resting comfortably in chair at bedside. He feels that he may be a little more perked up this AM. He has on going nausea and inability to tolerate PO. No abd pain. No SOB. He is awaiting further workup for nausea including possible HIDA scan. The plan was discussed with the patient and his family via phone. Vitals/I&O's: Vital Signs Temp Pulse Resp BP Pulse Ox 97.6 F L 84 18 137/79 H 98 04/01/20 09:37 04/01/20 11:23 04/01/20 09:37 04/01/20 09:37 04/01/20 09:37 Oxygen Flow Rate (L/min) 1 Oxygen Delivery Method Room Air Weight: 164 lb 7.437 oz Body Mass Index (BMI) 24.5 Intake and Output for Last 24 Hours 03/30/20 03/31/20 04/01/20 23:59 23:59 23:59 Intake Total 571.75 / 571.75 1340.00 / 1340.00 230 / 230 Output Total 975 / 975 1045 / 1045 Balance -403.25 / -403.25 295.00 / 295.00 230 / 230 General: Alert, Oriented x3, Cooperative HEENT: Atraumatic, PERRLA, EOMI, Normocephalic Neck: Supple, No JVD, Negative Carotid Bruits Lungs: Clear to auscultation, Normal air movement Cardiovascular: Regular rate, No murmurs Abdomen: Bowel Sounds Present, Soft, Non Tender Extremities: No edema, Capillary Refill Less than 3 Seconds Skin: No rashes, No breakdown Musculoskeletal: No Tenderness to Palpation of Joints or Extremities Neurological: Cranial nerves II-XII grossly intact Psych/Mental Status: Normal Affect, Appropriate, Alert and oriented to time, place, person, mood and affect Laboratory Results 03/31/20 11:22: POC Glucose 163 H 03/31/20 16:18: POC Glucose 150 H 03/31/20 17:40: Ur Random Sodium 23, Urine Creatinine 59.70, Urine Urea Nitrogen 884 03/31/20 21:23: POC Glucose 93 04/01/20 03:06: POC Glucose 63 L 04/01/20 03:52: POC Glucose 84 06/14/20 05:45: WBC 9.2, RBC 4.95, Hgb 14.6, Hct 45.2, MCV 91.3, MCH 29.5, MCHC 32.3, RDW Std Deviation 43.9, RDW Coeff of Shashank 13.4, Plt Count 134 L, MPV 12.3 H , Immature Gran % (Auto) 0.400, Neut % (Auto) 80.4 H, Lymph % (Auto) 9.2 L, [place] % (Auto) 10.0, Eos % (Auto) 0.0, Baso % (Auto) 0.0, Absolute Neuts (auto) 7.4, Absolute Lymphs (auto) 0.85, Nucleated RBC % 0 04/01/20 05:45: Sodium 143, Potassium 3.7, Chloride 108 H, Carbon Dioxide 31.0, Anion Gap 4 L, BUN 48 H, Creatinine 1.87 H, Estim Creat Clear Calc 30.46, Est GFR (MDRD) Af Amer 45 L, Est GFR (MDRD) Non-Af 37 L, BUN/Creatinine Ratio 25.7 H , Glucose 94, Calcium 8.8, Magnesium 1.9, Total Bilirubin 2.00 H, AST 186 H, ALT 670 H, Alkaline Phosphatase 117, Total Protein 5.8 L, Albumin 2.7 L, Globulin 3.1, Albumin/Globulin Ratio 0.9 04/01/20 06:40: POC Glucose 76 04/01/20 11:27: POC Glucose 92 Current Medications Albuterol/Ipratropium (Duoneb) 3 ml INHALATION Q6HWA.RT [facility] Last Admin: 04/01/20 07:00 Dose: Not Given Documented by: Apixaban (Eliquis) 2.5 mg PO BID [facility] [place] Last Admin: 04/01/20 09:43 Dose: 2.5 mg Documented by: Aspirin (Ecotrin) 81 mg PO DAILY@0800 [facility] [place] Last Admin: 04/01/20 09:43 Dose: 81 mg Documented by: Atorvastatin Calcium (Lipitor) 40 mg PO QHS [facility] [place] Last Admin: 03/31/20 21:24 Dose: Not Given Documented by: Cholecalciferol (Vitamin D (25mcg)) 5,000 unit PO DAILY [facility] [place] Last Admin: 04/01/20 09:44 Dose: Not Given Documented by: Dextrose (D50w Syringe) 0 gm IV X1 PRN; Protocol PRN Reason: Hypoglycemia Last Admin: 04/01/20 03:17 Dose: 12.5 gm Documented by: Furosemide (Lasix) 60 mg PO BID@1000,1800 [facility] [place] Last Admin: 03/30/20 11:10 Dose: Not Given Documented by: Furosemide (Lasix) 40 mg IV BID@1000,1800 [facility] [place] Last Admin: 03/30/20 17:24 Dose: 40 mg Documented by: Glimepiride (Amaryl) 4 mg PO BIDCM [facility] [place] Last Admin: 03/30/20 16:31 Dose: Not Given Documented by: Glucagon () 1 mg IM .X1 PRN PRN Reason: Hypoglycemia Sodium Chloride () 500 mls @ 0 mls/hr IV .Q0M [facility] [place] Pantoprazole Sodium 40 mg/ (Sodium Chloride) 110 mls @ 330 mls/hr IV Q12 [facility] [place] Last Infusion: 04/01/20 10:09 Dose: Infused Documented by: Sodium Chloride () 1,000 mls @ 75 mls/hr IV .[id number] [facility] [place] Stop: 04/01/20 23:14 Last Admin: 04/01/20 10:14 Dose: 75 mls/hr Documented by: Insulin Glargine (Lantus (Bkc)) 10 units SC DAILY [facility] [place] Last Admin: 03/30/20 12:06 Dose: Not Given Documented by: Insulin Human Lispro (Humalog Kwikpen (Bkc)) 0 unit SC ACHS & 3AM [id number]; Protocol Last Admin: 04/01/20 06:41 Dose: Not Given Documented by: Isosorbide Mononitrate (Imdur) 30 mg PO DAILY [facility] [place] Last Admin: 04/01/20 09:43 Dose: 30 mg Documented by: Metoprolol Tartrate (Lopressor (Beta Ivy)) 100 mg PO BID [facility] [place] Last Admin: 04/01/20 09:43 Dose: 100 mg Documented by: Metoprolol Tartrate (Lopressor (Beta Ivy)) 5 mg IV Q2H PRN PRN PRN Reason: heart rate > 110 Last Admin: 03/29/20 06:06 Dose: 5 mg Documented by: Mirtazapine (Remeron) 15 mg PO QHS [facility] [place] Last Admin: 03/31/20 21:24 Dose: Not Given Documented by: Morphine Sulfate () 4 mg IV Q3H PRN PRN PRN Reason: Pain Score 6-10/10 Nitroglycerin (Nitrostat) 0.4 mg SUBLINGUAL Q5M PRN PRN Reason: CARDIAC/CHEST PAIN Ondansetron HCl (Zofran) 4 mg IV Q8H PRN PRN PRN Reason: NAUSEA Last Admin: 04/01/20 09:39 Dose: 4 mg Documented by: Potassium Chloride (K-Dur) 20 meq PO DAILY [facility] [place] Last Admin: 04/01/20 09:44 Dose: Not Given Documented by: Ranolazine (Ranexa) 500 mg PO BID [facility] [place] Last Admin: 04/01/20 09:43 Dose: 500 mg Documented by: Sodium Chloride () 10 - 40 ml IV UD PRN PRN Reason: SALINE FLUSH Last Admin: 04/01/20 10:13 Dose: 10 ml Documented by: STROKE Vital Signs/Narrative: Vital Signs Temp Pulse Resp BP Pulse Ox 04/01/20 11:23 84 04/01/20 09:43 89 04/01/20 09:37 97.6 F L 89 18 137/79 H 98 Medical Necessity - Tobacco Use Smoking Status: Never smoker Assessment/Plan All Active Problems (Last Updated 03/13/20 @ 11:23 by CARLENE Porter) Atrial fibrillation (Acute) History of non-ST elevation myocardial infarction (NSTEMI) (Resolved 05/2017) Acute respiratory failure with hypoxemia (Resolved) Dyspnea (Resolved) Dyspnea on exertion (Resolved) Shortness of breath (Resolved) 1. pAfib RVR - NSR s/p cardioversion this admission. Metoprolol, eliquis. Off Amio. He has had some tachycardic runs on monitor. will continue to monitor and defer further antiarrhythmics at this time. 2. Acute on chronic combined CHF - stable. Lasix held for CATE. Monitor for volume overload as he does have a R pleural effusion 3. CATE - CKDIII - possibly 2/2 lasix and pts ongoing nausea with little to no PO intake - trend. Renal US shows normal kidneys no hydronphrosis. Gentle fluids. 4. Intractable nausea - trial reglan. minimal effect of zofran. Gen Surg consulted. Elevated LFTs, T Bili - ? amio tox, off amio. Hep panel pending. Liver US shows GB sludge. Gen Surg 5. DMt2 - hold glycemics with low sugar and no PO intake. DVT ppx: eliquis DC planning: pending resolution of intractable nausea This patient was seen by Aryan Pichardo PA-C under the supervision of Dr. Carbone. <Nancy Carbone - Last Filed: 04/01/20 14:09> Vitals/I&O's: Vital Signs Temp Pulse Resp BP Pulse Ox 97.6 F L 84 18 137/79 H 98 04/01/20 09:37 04/01/20 11:23 04/01/20 09:37 04/01/20 09:37 04/01/20 09:37 Oxygen Flow Rate (L/min) 1 Oxygen Delivery Method Room Air Weight: 74.6 kg Body Mass Index (BMI) 24.5 Intake and Output for Last 24 Hours 03/30/20 03/31/20 04/01/20 23:59 23:59 23:59 Intake Total 571.75 / 571.75 1340.00 / 1340.00 230 / 230 Output Total 975 / 975 1045 / 1045 Balance -403.25 / -403.25 295.00 / 295.00 230 / 230 Laboratory Results 03/31/20 16:18: POC Glucose 150 H 03/31/20 17:40: Ur Random Sodium 23, Urine Creatinine 59.70, Urine Urea Nitrogen 884 03/31/20 21:23: POC Glucose 93 04/01/20 03:06: POC Glucose 63 L 04/01/20 03:52: POC Glucose 84 04/01/20 05:45: WBC 9.2, RBC 4.95, Hgb 14.6, Hct 45.2, MCV 91.3, MCH 29.5, MCHC 32.3, RDW Std Deviation 43.9, RDW Coeff of Shashank 13.4, Plt Count 134 L, MPV 12.3 H , Immature Gran % (Auto) 0.400, Neut % (Auto) 80.4 H, Lymph % (Auto) 9.2 L, [place] % (Auto) 10.0, Eos % (Auto) 0.0, Baso % (Auto) 0.0, Absolute Neuts (auto) 7.4, Absolute Lymphs (auto) 0.85, Nucleated RBC % 0 04/01/20 05:45: Sodium 143, Potassium 3.7, Chloride 108 H, Carbon Dioxide 31.0, Anion Gap 4 L, BUN 48 H, Creatinine 1.87 H, Estim Creat Clear Calc 30.46, Est GFR (MDRD) Af Amer 45 L, Est GFR (MDRD) Non-Af 37 L, BUN/Creatinine Ratio 25.7 H , Glucose 94, Calcium 8.8, Magnesium 1.9, Total Bilirubin 2.00 H, AST 186 H, ALT 670 H, Alkaline Phosphatase 117, Total Protein 5.8 L, Albumin 2.7 L, Globulin 3.1, Albumin/Globulin Ratio 0.9 04/01/20 06:40: POC Glucose 76 04/01/20 11:27: POC Glucose 92 Current Medications Albuterol/Ipratropium (Duoneb) 3 ml INHALATION Q6HWA.RT [facility] Last Admin: 04/01/20 13:00 Dose: Not Given Documented by: Apixaban (Eliquis) 2.5 mg PO BID [facility] Last Admin: 04/01/20 09:43 Dose: 2.5 mg Documented by: Aspirin (Ecotrin) 81 mg PO DAILY@0800 [facility] Last Admin: 04/01/20 09:43 Dose: 81 mg Documented by: Atorvastatin Calcium (Lipitor) 40 mg PO QHS [facility] [place] Last Admin: 03/31/20 21:24 Dose: Not Given Documented by: Cholecalciferol (Vitamin D (25mcg)) 5,000 unit PO DAILY [facility] [place] Last Admin: 04/01/20 09:44 Dose: Not Given Documented by: Dextrose (D50w Syringe) 0 gm IV X1 PRN; Protocol PRN Reason: Hypoglycemia Last Admin: 04/01/20 03:17 Dose: 12.5 gm Documented by: Furosemide (Lasix) 60 mg PO BID@1000,1800 [facility] [place] Last Admin: 03/30/20 11:10 Dose: Not Given Documented by: Furosemide (Lasix) 40 mg IV BID@1000,1800 [facility] [place] Last Admin: 03/30/20 17:24 Dose: 40 mg Documented by: Glimepiride (Amaryl) 4 mg PO BIDCM [facility] [place] Last Admin: 03/30/20 16:31 Dose: Not Given Documented by: Glucagon () 1 mg IM .X1 PRN PRN Reason: Hypoglycemia Sodium Chloride () 500 mls @ 0 mls/hr IV .Q0M [facility] Pantoprazole Sodium 40 mg/ (Sodium Chloride) 110 mls @ 330 mls/hr IV Q12 [facility] [place] Last Infusion: 04/01/20 10:09 Dose: Infused Documented by: Sodium Chloride () 1,000 mls @ 75 mls/hr IV .[id number] [facility] Stop: 04/01/20 23:14 Last Admin: 04/01/20 10:14 Dose: 75 mls/hr Documented by: Insulin Glargine (Lantus ([facility])) 10 units SC DAILY [facility] [place] Last Admin: 03/30/20 12:06 Dose: Not Given Documented by: Insulin Human Lispro (Humalog Kwikpen ([facility])) 0 unit SC ACHS & 3AM [facility]; Protocol Last Admin: 04/01/20 12:31 Dose: Not Given Documented by: Isosorbide Mononitrate (Imdur) 30 mg PO DAILY [facility] Last Admin: 04/01/20 09:43 Dose: 30 mg Documented by: Metoprolol Tartrate (Lopressor (Beta Ivy)) 100 mg PO BID [facility] Last Admin: 04/01/20 09:43 Dose: 100 mg Documented by: Metoprolol Tartrate (Lopressor (Beta Ivy)) 5 mg IV Q2H PRN PRN PRN Reason: heart rate > 110 Last Admin: 03/29/20 06:06 Dose: 5 mg Documented by: Mirtazapine (Remeron) 15 mg PO QHS [facility] [place] Last Admin: 03/31/20 21:24 Dose: Not Given Documented by: Morphine Sulfate () 4 mg IV Q3H PRN PRN PRN Reason: Pain Score 6-10/10 Nitroglycerin (Nitrostat) 0.4 mg SUBLINGUAL Q5M PRN PRN Reason: CARDIAC/CHEST PAIN Ondansetron HCl (Zofran) 4 mg IV Q8H PRN PRN PRN Reason: NAUSEA Last Admin: 04/01/20 09:39 Dose: 4 mg Documented by: Potassium Chloride (K-Dur) 20 meq PO DAILY [facility] [place] Last Admin: 04/01/20 09:44 Dose: Not Given Documented by: Ranolazine (Ranexa) 500 mg PO BID [facility] [place] Last Admin: 04/01/20 09:43 Dose: 500 mg Documented by: Sodium Chloride () 10 - 40 ml IV UD PRN PRN Reason: SALINE FLUSH Last Admin: 04/01/20 10:13 Dose: 10 ml Documented by: STROKE Vital Signs/Narrative: Vital Signs Pulse 04/01/20 11:23 84 Assessment/Plan This patient was seen in conjunction with CARLENE Mcmanus. I have independently interviewed and examined the patient and reviewed pertinent historical, laboratory, and other data. Please refer to CARLENE Mcmanus note for his patient's presentation, findings, and recommendations. I have reviewed and his note and concur with his documentation Patient was seen and examined. He feels some improvement in nausea but still cannot eat or drink on account of severe nausea Denies chest pain, dizziness. Appreciate general surgery consult Physical exam: General: Alert, Oriented x3, Cooperative HEENT: Atraumatic, PERRLA, EOMI, Normocephalic Neck: Supple, No JVD, Negative Carotid Bruits Lungs: Diminished, Wheezes Cardiovascular: HS I +II, regular, no murmurs Abdomen: Bowel Sounds Present, Soft, Non Tender, Non-Distended Extremities: No clubbing, No cyanosis, No edema, Capillary Refill Less than 3 Seconds Skin: No rashes, No breakdown Musculoskeletal: No Tenderness to Palpation of Joints or Extremities Neurological: Cranial nerves II-XII grossly intact, Neuro grossly intact Psych/Mental Status: Normal Affect, Appropriate ASSESSMENT: 1. A. fib with RVR status post cardioversion, in NSR 2. Episode of hypotension 3. Elevated liver enzymes, unclear etiology 4. Acute on chronic combined CHF, EF 45% 5. CATE on CKD stage III, improving 6. CAD status post CABG 7. History of CVA 8. Type II DM 9. Hypertension 10. Hyperlipidemia Plan: Continue to hold insulin, Amaryl, Lasix Continue to check blood sugars and cover with low dose insulin sliding scale if needed Encourage p.o. intake Metoclopramide 10mg IV x1 as trial to see if it helps with gastric emptying May need gastric emptying study Continue on Remeron Follow-up with repeat blood work in a.m. Inpatient E&M: 87023 Subs Hosp L2
[2020-04-01 14:07] LABS: HEPATITIS B SURFACE AG Negative (Negative); Hepatitis A IgM Antibody Negative (Negative); Hepatitis B Core AB IgM Negative (Negative)
[2020-04-01 16:26] LABS: Bedside Glucose 91 mg/dL (70-110)
[2020-04-01] MEDS: Atorvastatin Calcium 40 MG Tablet PO (21:27)
[2020-04-01 22:01] LABS: Bedside Glucose 97 mg/dL (70-110)
[2020-04-01 23:49] LABS: Hep C Antibodies <0.1 s/co ratio (0.0-0.9)
[2020-04-02] VITALS (9 sets, daily range): BP systolic 92–136; BP diastolic 59–82; PULSE 63–88; RESP 16–18; TEMP 36.3–36.9; O2SAT 92–96
[2020-04-02 03:11] LABS: Bedside Glucose 76 mg/dL (70-110)
[2020-04-02 05:53] LABS: Absolute Lymphocyte Count 1.21 X10^3/uL (0.83-4.51); Basophil# 0.01 X10^3/uL; Basophil% 0.1 % (0-1); Hematocrit 48.8 % (40-54); Hemoglobin 15.4 g/dL (13.0-16.5); Lymphocyte # 1.21 X10^3/ul (4.0); Lymphocyte % 13.2 % (19-41); Mean Corp Hgb Conc 31.6 g/dL (32-36); Mean Corpuscular Hgb 29.4 pg (27.0-32.0); Mean Corpuscular Volume 93.1 fL (80-94); Mean Platelet Vol. 11.9 fl (6.2-12.0); Monocyte% 9.8 % (0-10); NRBC Flagged by Analyzer 0 % (0-5); Neutrophil # 6.98 X10^3/uL (2.7-7.7); Neutrophil % 76.5 % (47-70); Platelet Count 176 K/mm3 (150-450); RBC Distribution Width CV 13.5 % (11.6-14.6); RBC Distribution Width SD 45.9 fl (35.1-43.9); Red Blood Count 5.24 M/mm3 (4.6-6.2); White Blood Count 9.1 K/mm3 (4.4-11.0)
[2020-04-02 06:15] LABS: ALB/GLOB Ratio 0.9 RATIO (0.9-2.4); AST(SGOT) 116 U/L (15-37); Alanine Aminotransfer ALT/SGPT 524 U/L (16-61); Alkaline Phosphatase 124 U/L (45-117); Anion Gap 8 (5-15); BUN 47 mg/dL (7-18); BUN/Creat Ratio 24.5 RATIO (10-20); Calcium,Total 9.1 mg/dL (8.5-10.1); Chloride 105 mmol/L (98-107); Creatinine, Serum 1.92 mg/dL (0.70-1.30); EST Glomerular Filtration Rate 36 mL/min (>60); Est Glom Filt Rate - Afr Amer 43 mL/min (>60); Estimated Creatinine Clearance 29.66 ml/min; Globulin 3.3 g/dL (2.2-4.2); Glucose 68 mg/dL (74-106); Potassium 3.5 mmol/L (3.5-5.1); Protein, Total 6.3 g/dL (6.4-8.2); Sodium Level 142 mmol/L (136-145)
[2020-04-02] MEDS: Dextrose 50%-Water 25 GM/50 ML DISP.SYRIN IV (06:59)
[2020-04-02 07:01] LABS: Bedside Glucose 68 mg/dL (70-110)
[2020-04-02 07:30] LABS: Bedside Glucose 115 mg/dL (70-110)
--- NOTE | 2020-04-02 09:21 | PN.CARD_ITS ---
Subjectve: Patient seen and evaluated. Appears to be stable. Doing much better this morning. Is maintaining sinus rhythm. Objective: Vital Signs Temp Pulse Resp BP Pulse Ox 98.4 F 63 16 106/59 L 92 04/02/20 03:08 04/02/20 06:39 04/02/20 03:08 04/02/20 03:08 04/02/20 03:08 Oxygen Flow Rate (L/min) 1 Oxygen Delivery Method Room Air Weight: 161 lb 9.581 oz Body Mass Index (BMI) 24.5 Intake and Output for Last 24 Hours 03/31/20 04/01/20 04/02/20 23:59 23:59 23:59 Intake Total 1340.00 / 1340.00 1900.00 / 1900.00 0 / 0 Output Total 1045 / 1045 500 / 500 250 / 250 Balance 295.00 / 295.00 1400.00 / 1400.00 -250 / -250 General: Awake, Alert, Oriented x 3 HEENT: PERRL, EOMI, Sclera Non Icteric Neck: Supple, Good ROM, No Lymph Node Enlargement Lungs: Clear to auscultation Cardiovascular: Regular Rhythm, Normal S1, Normal S2, No Murmurs, No Rubs, No Gallops Vascular: No Carotid Bruits, Normal Femoral Pulses, Normal Radial Pulses, Normal Dorsalis Pedal Pulse, Normal Posterior Tibial Pulses Abdomen: Bowel Sounds Present, Soft, Non Tender, No HSM, No Organomegaly Extremities: No Cyanosis, No Clubbing, No edema Neurological: No Focal Motor or Sensory Deficit Psych/Mental Status: Appropriate 04/02/20 05:30: WBC 9.1, RBC 5.24, Hgb 15.4, Hct 48.8, MCV 93.1, MCH 29.4, MCHC 31.6 L, Plt Count 176, MPV 11.9, Immature Gran % (Auto) 0.400, Neut % (Auto) 76.5 H, Lymph % (Auto) 13.2 L, [place] % (Auto) 9.8, Eos % (Auto) 0.0, Baso % (Auto) 0.1, Absolute Neuts (auto) 7.0, Nucleated RBC % 0 04/02/20 05:30: Sodium 142, Potassium 3.5, Chloride 105, Carbon Dioxide 29.0, Anion Gap 8, BUN 47 H, Creatinine 1.92 H, Est GFR (MDRD) Af Amer 43 L, Est GFR (MDRD) Non-Af 36 L, BUN/Creatinine Ratio 24.5 H, Glucose 68 L, Calcium 9.1, Total Bilirubin 2.10 H Rhythm: EKG: ECHO: Stress Test: Cardiac Cath: PCI: CT Surgery: Holter monitor: EPS: PPM: CXR: Chest CT Scan: Medical Necessity - Tobacco Use Smoking Status: Never smoker Assessment/Plan 1. Shortness of breath * The above is likely secondary to diastolic dysfunction. His echocardiogram demonstrated an ejection fraction of 45% with stage III diastolic dysfunction. I doubt that this is secondary to coronary ischemia. He did have minimal troponin elevation but I will suggest that we repeat his myocardial perfusion scan and unless this demonstrates significant ischemic territory would continue to manage him with medication. * Will continue him on the current dose of diuretics 2. Coronary artery disease * He does have known coronary artery disease as evidenced above. His last catheterization a year and a half ago demonstrated patency of his bypass grafts. He has no acute EKG changes and I would recommend that we continue to manage him with risk factor modification. * A stress test demonstrated no evidence of ischemia and I do not think that coronary disease is playing a role here 3. Atrial fibrillation * His ventricular response rate does not appear to be very well controlled. He needs to continue to be anticoagulated. * He did undergo a DC cardioversion successfully . * Hopefully this would help his shortness of breath. 4. Hypertension * Good control he will continue the same medications with appropriately changed doses. * 5. Risk factor modification * He will continue with appropriate risk factor modification. He does in addition appear to be mildly depressed and this may need to be addressed. * * He has developed some liver function test abnormalities. This could be possibly secondary to the amiodarone. This can be held temporarily for now. He is getting a HIDA scan. If the above is normal he can be discharged for outpatient follow-up. * Thank you for allowing me to participate in the care of your patient. Please don't hesitate to call if any issues arise.
--- NOTE | 2020-04-02 09:21 | PN.SURG_ITS ---
Subjective: Patient still denies any abdominal pain, was able to drink water without dry heaves yesterday along with his ice chips. Patient has been on Protonix. - Physical Exam Vitals/I&O's: Vital Signs Temp Pulse Resp BP Pulse Ox 98.4 F 63 16 106/59 L 92 04/02/20 03:08 04/02/20 06:39 04/02/20 03:08 04/02/20 03:08 04/02/20 03:08 Oxygen Flow Rate (L/min) 1 Oxygen Delivery Method Room Air Weight: 161 lb 9.581 oz Body Mass Index (BMI) 24.5 Intake and Output for Last 24 Hours 03/31/20 04/01/20 04/02/20 23:59 23:59 23:59 Intake Total 1340.00 / 1340.00 1900.00 / 1900.00 0 / 0 Output Total 1045 / 1045 500 / 500 250 / 250 Balance 295.00 / 295.00 1400.00 / 1400.00 -250 / -250 General: Alert, Oriented x3, Cooperative, No apparent distress HEENT: Atraumatic Lungs: Normal air movement Abdomen: Soft, Non Tender, Non-Distended Extremities: No clubbing, No cyanosis, No edema Laboratory Results 03/31/20 11:12: Hepatitis A IgM Ab Negative, Hep Bs Antigen Negative, Hep B Core IgM Ab Negative, Hepatitis C Ab (EIA) <0.1 04/01/20 11:27: POC Glucose 92 04/01/20 16:05: POC Glucose 91 04/01/20 21:23: POC Glucose 97 04/02/20 03:04: POC Glucose 76 04/02/20 05:30: WBC 9.1, RBC 5.24, Hgb 15.4, Hct 48.8, MCV 93.1, MCH 29.4, MCHC 31.6 L, RDW Std Deviation 45.9 H, RDW Coeff of Shashank 13.5, Plt Count 176, MPV 11.9, Immature Gran % (Auto) 0.400, Neut % (Auto) 76.5 H, Lymph % (Auto) 13.2 L, Meagher % (Auto) 9.8, Eos % (Auto) 0.0, Baso % (Auto) 0.1, Absolute Neuts (auto) 7.0, Absolute Lymphs (auto) 1.21, Nucleated RBC % 0 04/02/20 05:30: Sodium 142, Potassium 3.5, Chloride 105, Carbon Dioxide 29.0, Anion Gap 8, BUN 47 H, Creatinine 1.92 H, Estim Creat Clear Calc 29.66, Est GFR (MDRD) Af Amer 43 L, Est GFR (MDRD) Non-Af 36 L, BUN/Creatinine Ratio 24.5 H, Glucose 68 L, Calcium 9.1, Total Bilirubin 2.10 H, AST 116 H, ALT 524 H, Yolanda line Phosphatase 124 H, Total Protein 6.3 L, Albumin 3.0 L, Globulin 3.3, Albumin/Globulin Ratio 0.9 04/02/20 06:51: POC Glucose 68 L 04/02/20 07:25: POC Glucose 115 H Current Medications Albuterol/Ipratropium (Duoneb) 3 ml INHALATION Q6HWA.RT [facility] Last Admin: 04/01/20 19:00 Dose: Not Given Documented by: Apixaban (Eliquis) 2.5 mg PO BID [facility] Last Admin: 04/01/20 21:27 Dose: 2.5 mg Documented by: Aspirin (Ecotrin) 81 mg PO DAILY@0800 [facility] Last Admin: 04/01/20 09:43 Dose: 81 mg Documented by: Atorvastatin Calcium (Lipitor) 40 mg PO QHS [facility] Last Admin: 04/01/20 21:27 Dose: 40 mg Documented by: Cholecalciferol (Vitamin D (25mcg)) 5,000 unit PO DAILY [facility] Last Admin: 04/01/20 09:44 Dose: Not Given Documented by: Dextrose (D50w Syringe) 0 gm IV X1 PRN; Protocol PRN Reason: Hypoglycemia Last Admin: 04/02/20 06:59 Dose: 12.5 gm Documented by: Furosemide (Lasix) 60 mg PO BID@1000,1800 [facility] Last Admin: 03/30/20 11:10 Dose: Not Given Documented by: Furosemide (Lasix) 40 mg IV BID@1000,1800 [facility] Last Admin: 03/30/20 17:24 Dose: 40 mg Documented by: Glimepiride (Amaryl) 4 mg PO BIDCM [facility] Last Admin: 03/30/20 16:31 Dose: Not Given Documented by: Glucagon () 1 mg IM .X1 PRN PRN Reason: Hypoglycemia Sodium Chloride () 500 mls @ 0 mls/hr IV .Q0M [facility] Pantoprazole Sodium 40 mg/ (Sodium Chloride) 110 mls @ 330 mls/hr IV Q12 [facility] Last Infusion: 04/01/20 21:44 Dose: Infused Documented by: Insulin Glargine (Lantus ([facility])) 10 units SC DAILY [facility] Last Admin: 03/30/20 12:06 Dose: Not Given Documented by: Insulin Human Lispro (Humalog Kwikpen ([facility])) 0 unit SC ACHS & 3AM [facility]; Protocol Last Admin: 04/02/20 06:52 Dose: Not Given Documented by: Isosorbide Mononitrate (Imdur) 30 mg PO DAILY [facility] Last Admin: 04/01/20 09:43 Dose: 30 mg Documented by: Metoprolol Tartrate (Lopressor (Beta Ivy)) 100 mg PO BID [facility] Last Admin: 04/01/20 21:27 Dose: 100 mg Documented by: Metoprolol Tartrate (Lopressor (Beta Ivy)) 5 mg IV Q2H PRN PRN PRN Reason: heart rate > 110 Last Admin: 03/29/20 06:06 Dose: 5 mg Documented by: Mirtazapine (Remeron) 15 mg PO QHS [facility] Last Admin: 04/01/20 21:30 Dose: Not Given Documented by: Morphine Sulfate () 4 mg IV Q3H PRN PRN PRN Reason: Pain Score 6-10/10 Nitroglycerin (Nitrostat) 0.4 mg SUBLINGUAL Q5M PRN PRN Reason: CARDIAC/CHEST PAIN Ondansetron HCl (Zofran) 4 mg IV Q8H PRN PRN PRN Reason: NAUSEA Last Admin: 04/01/20 09:39 Dose: 4 mg Documented by: Potassium Chloride (K-Dur) 20 meq PO DAILY [facility] Last Admin: 04/01/20 09:44 Dose: Not Given Documented by: Ranolazine (Ranexa) 500 mg PO BID [facility] Last Admin: 04/01/20 21:30 Dose: Not Given Documented by: Sodium Chloride () 10 - 40 ml IV UD PRN PRN Reason: SALINE FLUSH Last Admin: 04/01/20 10:13 Dose: 10 ml Documented by: Medical Necessity - Tobacco Use Smoking Status: Never smoker Assessment/Plan All Active Problems (Last Updated 03/13/20 @ 11:23 by CARLENE Porter) Atrial fibrillation (Acute) History of non-ST elevation myocardial infarction (NSTEMI) (Resolved 05/2017) Acute respiratory failure with hypoxemia (Resolved) Dyspnea (Resolved) Dyspnea on exertion (Resolved) Shortness of breath (Resolved) 80-year-old male with A. fib status post cardioversion, elevated LFTs, gallbladder sludge ultrasound not officially read, nausea and vomiting, depression 1. Patient's LFTs are about the same we will decreased. Patient was able to tolerate some water without nausea or vomiting yesterday, patient has been on Protonix IV. Will check a HIDA scan without CCK if gallbladder fills no plans for any surgical intervention, patients diet can be advanced as tolerated recommend continuing the Protonix. Nita Jo M.D. Pager: [phone] [facility] [address] [place] [address], [facility], [address] [place] [address] Office: [phone] Inpatient E&M: [id number] [facility]
[2020-04-02 12:20] LABS: Bedside Glucose 92 mg/dL (70-110)
[2020-04-02] MEDS: Furosemide 20 MG Tablet 60 MG PO (12:44)
[2020-04-02] MEDS: Aspirin E.C. 81 MG Tablet PO (12:44)
[2020-04-02] MEDS: APIXABAN 2.5 MG TABLET PO (12:44)
[2020-04-02] MEDS: Isosorbide Mononitrate 30 MG Tablet PO (12:44)
[2020-04-02] MEDS: Metoprolol Tartrate 100 MG Tablet PO (12:45)
[2020-04-02] MEDS: Ranolazine 500 MG Tablet PO (12:46)
--- NOTE | 2020-04-02 15:10 | PCM.DC ---
You will use the following diet at home:: Calorie/Carbohydrate Controlled (specify 1200, 1400, etc) - 1800, Cardiac, Other - avoid acidic food/drink, carbonated beverages, greasy foods, and beef while stomach is settling Your food should be the consistency of: Regular Your liquids should be the consistency of: Regular/Thin Discharge Activity: Return to Normal Activity Allergies/Adverse Reactions: Allergies spironolactone Allergy (Verified 03/26/20 21:31) severe weakness lisinopril Adverse Reaction (Mild, Verified 03/26/20 21:31) Dry cough Medications to take at Discharge cholecalciferol (vitamin D3) 125 mcg (5,000 unit) capsule 5,000 unit PO DAILY 02/16/19 albuterol sulfate 90 mcg/actuation aerosol inhaler 1 puff INHALATION Q6H 09/26/19 glimepiride 4 mg tablet 4 mg PO BID tab 09/26/19 tiotropium bromide 2.5 mcg/actuation mist for inhalation 2 puff INHALATION DAILY PRN 09/26/19 isosorbide mononitrate 30 mg tablet,extended release 24 hr 30 mg PO DAILY #90 tab 01/16/20 apixaban 2.5 mg tablet 2.5 mg PO BID #60 tab 03/10/20 potassium chloride 20 mEq tablet,extended release 20 meq PO DAILY #34 tab 03/19/20 Atorvastatin Calcium [Lipitor] 50 mg PO BID 03/26/20 Amiodarone HCl [Cordarone] 200 mg PO BID #60 tab 03/29/20 Aspirin E.C. [Ecotrin] 81 mg PO DAILY@0800 #30 tab 03/29/20 Furosemide [Lasix] 60 mg PO BID@1000,1800 #120 tab 03/29/20 Insulin Glargine [Lantus SoloStar Pen] 10 units SUBCUT DAILY #1 box 03/29/20 Metoprolol Tartrate [Lopressor (beta kelsey)] 100 mg PO BID #60 tab 03/29/20 Ranolazine [Ranexa] 500 mg PO BID #60 tab 03/29/20 Mirtazapine [Remeron] 15 mg PO QHS #30 tab 04/02/20 Pantoprazole Sodium [Protonix] 40 mg PO DAILY #30 tab 04/02/20 The following prescriptions were given: Amiodarone HCl [Cordarone] 200 mg PO BID #60 tab Transmission Status: Received by [facility] Aspirin E.C. [Ecotrin] 81 mg PO DAILY@0800 #30 tab Transmission Status: Received by [facility] Insulin Glargine [Lantus SoloStar Pen] 10 units SUBCUT DAILY #1 box Transmission Status: Received by [facility] Furosemide [Lasix] 60 mg PO BID@1000,1800 #120 tab Transmission Status: Received by [facility] Metoprolol Tartrate [Lopressor (beta kelsey)] 100 mg PO BID #60 tab Transmission Status: Received by [facility] Pantoprazole Sodium [Protonix] 40 mg PO DAILY #30 tab Transmission Status: Pending to [facility] Ranolazine [Ranexa] 500 mg PO BID #60 tab Transmission Status: [facility] Mirtazapine [Remeron] 15 mg PO QHS #30 tab Transmission Status: Pending to [facility] Primary Care Physician: Abdoulaye Brock MD [Primary Care Provider] - Please follow up with your Primary Care Physician in: 2 weeks Test Results: Test results from this visit will be discussed in further detail at your follow-up appointment, if applicable. Please Follow Up With: Jason Lemus MD When: as directed Proposed Discharge Date: 04/02/20
--- NOTE | 2020-04-02 15:14 | PCM.DC.SUM ---
<Aryan Pichardo - Last Filed: 04/02/20 15:14> Discharge Date and Diagnosis - Problem List Patient Problems: Active and Suspected Problems (Last Updated 03/13/20 @ 11:23 by CARLENE Porter) Amiodarone toxicity (Acute) Date of Admission: 03/26/20 Date of Discharge: 04/02/20 - Primary Discharge Diagnosis Acute Problems: Active Problems (Last Updated 03/13/20 @ 11:23 by CARLENE Porter) pAfib RVR s/p cardioversion Acute on chronic combined CHF CATE on CKDIII Intractable nausea with elevated LFTs, amio toxicity DMt2 - Secondary Discharge Diagnosis Chronic Problems: Chronic Problems (Last Updated 03/13/20 @ 11:23 by CARLENE Porter) 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) CABG x 4 COLES to LAD, SVG to diagonal, SVG to proximal end of SVG to diagonal going to OM 2, and SVG to PDA 10/30/16 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) CABG x 4: COLES-LAD, SVG-D1, SVG to proximal end of SVG to diagonal going to OM 2, and SVG-RPDA 10/30/16 Ischemic cardiomyopathy (Chronic) 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 Stress test: Conclusion: Cardiomyopathy. Normal pharmacologic myocardial perfusion stress test. RAD/Chest PA and Lateral IMPRESSION: Progressive small bilateral pleural effusions with bibasilar atelectasis and/or infiltrate superimposed on mild degree of CHF. US/Liver IMPRESSION: Right pleural effusion. Gallbladder sludge. Otherwise, normal sonographic appearance of the gallbladder. US/Kidney and Bladder IMPRESSION: Normal kidneys. No hydronephrosis. Bladder not visualized. NM/Hepatobilliary Imaging IMPRESSION: 1. Visualization of the gallbladder within 60 minutes post radiopharmaceutical administration excludes acute cholecystitis with 97% certitude. (Guillermina et al, Nucl Med [employer] pg. 35, 1980). 2. There is scintigraphic evidence of duodenal-gastric reflux as defined above. Consults: Cardiology - [facility] - [facility] Operations: None Procedures: Cardioversion, Stress test Summary of Care Provided: Hospital Course: The patient is a 80 year old M with pmhx as above who presented to the ER with c/o chest pain and SOB. He was seen by his continuous improvement engineer recently and was diagnosed with Afib RVR and was placed on cardizem in addition to metoprolol and eliquis with a planned cardioversion. In the ER he had afib with some tachycardia, elevated troponin, and CATE. CXR showed cardiomegaly and mild congestive changes. BNP was 1225.6. He was admitted to the PCU on tele. He was felt to have acute on chronic mixed CHF and given IV lasix. Initially CATE improved with diuresis. Cardiology was consulted. He had afib with RVR and was placed on amiodarone and cardizem drip. The patient was cardioverted successfully. Following the cardioversion he had a sudden rise in his LFTs and developed intractable nausea and vomiting and worsening renal failure. Lasix was stopped due to him not eating or drinking. He was felt to have amio toxicity and amio was discontinued. He remained in sinus rhythm. Gen surgery was consulted. Liver US showed some gallbladder sludge. He was given antiemetics and Renal US was negative. The patient went for a HIDA scan which did not demonstrate cholecystitis, it did show duodenal reflux. His diet was advanced to full liquid successfully. LFTs were improved. Hepatitis panel was negative. He was transitioned to PO protonix. He was provided with antiemetics. He was discharged home in stable condition. He will need follow up with cardiology as directed, and with his PCP in 1-2 weeks. He should have a CMP drawn this week. He will also need to remain off lasix for now as it has been held with his worsening CATE (improving now) and inability to eat / drink. He may need to resume it at a later date. This patient was seen by Aryan Pichardo PA-C under the supervision of Dr. Frost [] Patient Problems: Active and Suspected Problems (Last Updated 03/13/20 @ 11:23 by CARLENE Porter) Amiodarone toxicity (Acute) - Physical Exam Vitals/I&O's: Vital Signs Temp Pulse Resp BP Pulse Ox 98.0 F 78 16 136/82 H 94 04/02/20 11:17 04/02/20 12:45 04/02/20 11:17 04/02/20 11:17 04/02/20 11:17 Oxygen Flow Rate (L/min) 1 Oxygen Delivery Method Room Air Weight: 161 lb 9.581 oz Body Mass Index (BMI) 24.5 Intake and Output for Last 24 Hours 03/31/20 04/01/20 04/02/20 23:59 23:59 23:59 Intake Total 1340.00 / 1340.00 1900.00 / 1900.00 330 / 330 Output Total 1045 / 1045 500 / 500 250 / 250 Balance 295.00 / 295.00 1400.00 / 1400.00 80 / 80 General: Alert, Oriented x3, Cooperative HEENT: Atraumatic, PERRLA, EOMI, Normocephalic Neck: Supple, No JVD, Negative Carotid Bruits Lungs: Clear to auscultation, Normal air movement Cardiovascular: Regular rate, No murmurs Abdomen: Bowel Sounds Present, Soft, Tender - mild RUQ tenderness Extremities: No edema, Capillary Refill Less than 3 Seconds Skin: No rashes, No breakdown Musculoskeletal: No Tenderness to Palpation of Joints or Extremities Neurological: Cranial nerves II-XII grossly intact Psych/Mental Status: Normal Affect, Appropriate, Alert and oriented to time, place, person, mood and affect Laboratory Results 03/31/20 11:12: Hepatitis A IgM Ab Negative, Hep Bs Antigen Negative, Hep B Core IgM Ab Negative, Hepatitis C Ab (EIA) <0.1 04/01/20 16:05: POC Glucose 91 04/01/20 21:23: POC Glucose 97 04/02/20 03:04: POC Glucose 76 04/02/20 05:30: WBC 9.1, RBC 5.24, Hgb 15.4, Hct 48.8, MCV 93.1, MCH 29.4, MCHC 31.6 L, RDW Std Deviation 45.9 H, RDW Coeff of Shashank 13.5, Plt Count 176, MPV 11.9, Immature Gran % (Auto) 0.400, Neut % (Auto) 76.5 H, Lymph % (Auto) 13.2 L, Ritchie % (Auto) 9.8, Eos % (Auto) 0.0, Baso % (Auto) 0.1, Absolute Neuts (auto) 7.0, Absolute Lymphs (auto) 1.21, Nucleated RBC % 0 04/02/20 05:30: Sodium 142, Potassium 3.5, Chloride 105, Carbon Dioxide 29.0, Anion Gap 8, BUN 47 H, Creatinine 1.92 H, Estim Creat Clear Calc 29.66, Est GFR (MDRD) Af Amer 43 L, Est GFR (MDRD) Non-Af 36 L, BUN/Creatinine Ratio 24.5 H, Glucose 68 L, Calcium 9.1, Total Bilirubin 2.10 H, AST 116 H, ALT 524 H, Alkaline Phosphatase 124 H, Total Protein 6.3 L, Albumin 3.0 L, Globulin 3.3, Albumin/Globulin Ratio 0.9 04/02/20 06:51: POC Glucose 68 L 04/02/20 07:25: POC Glucose 115 H 04/02/20 12:06: POC Glucose 92 Current Medications Albuterol/Ipratropium (Duoneb) 3 ml INHALATION Q6HWA.RT [facility] Last Admin: 04/02/20 07:00 Dose: Not Given Documented by: Apixaban (Eliquis) 2.5 mg PO BID [facility] Last Admin: 04/02/20 12:44 Dose: 2.5 mg Documented by: Aspirin (Ecotrin) 81 mg PO DAILY@0800 [facility] Last Admin: 04/02/20 12:44 Dose: 81 mg Documented by: Atorvastatin Calcium (Lipitor) 40 mg PO QHS [facility] Last Admin: 04/01/20 21:27 Dose: 40 mg Documented by: Cholecalciferol (Vitamin D (25mcg)) 5,000 unit PO DAILY [facility] Last Admin: 04/02/20 12:46 Dose: 5,000 unit Documented by: Dextrose (D50w Syringe) 0 gm IV X1 PRN; Protocol PRN Reason: Hypoglycemia Last Admin: 04/02/20 06:59 Dose: 12.5 gm Documented by: Furosemide (Lasix) 60 mg PO BID@1000,1800 [facility] Last Admin: 04/02/20 12:44 Dose: 60 mg Documented by: Glimepiride (Amaryl) 4 mg PO BIDCM [facility] Last Admin: 03/30/20 16:31 Dose: Not Given Documented by: Glucagon () 1 mg IM .X1 PRN PRN Reason: Hypoglycemia Sodium Chloride () 500 mls @ 0 mls/hr IV .Q0M [facility] Pantoprazole Sodium 40 mg/ (Sodium Chloride) 110 mls @ 330 mls/hr IV Q12 [facility] Last Infusion: 04/02/20 12:34 Dose: Infused Documented by: Insulin Glargine (Lantus ([facility])) 10 units SC DAILY [facility] Last Admin: 03/30/20 12:06 Dose: Not Given Documented by: Insulin Human Lispro (Humalog Kwikpen ([facility])) 0 unit SC ACHS & 3AM [facility]; Protocol Last Admin: 04/02/20 12:47 Dose: Not Given Documented by: Isosorbide Mononitrate (Imdur) 30 mg PO DAILY [facility] Last Admin: 04/02/20 12:44 Dose: 30 mg Documented by: Metoprolol Tartrate (Lopressor (Beta Ivy)) 100 mg PO BID [facility] Last Admin: 04/02/20 12:45 Dose: 100 mg Documented by: Metoprolol Tartrate (Lopressor (Beta Ivy)) 5 mg IV Q2H PRN PRN PRN Reason: heart rate > 110 Last Admin: 03/29/20 06:06 Dose: 5 mg Documented by: Mirtazapine (Remeron) 15 mg PO QHS [facility] Last Admin: 04/01/20 21:30 Dose: Not Given Documented by: Morphine Sulfate () 4 mg IV Q3H PRN PRN PRN Reason: Pain Score 6-10/10 Nitroglycerin (Nitrostat) 0.4 mg SUBLINGUAL Q5M PRN PRN Reason: CARDIAC/CHEST PAIN Ondansetron HCl (Zofran) 4 mg IV Q8H PRN PRN PRN Reason: NAUSEA Last Admin: 04/01/20 09:39 Dose: 4 mg Documented by: Potassium Chloride (K-Dur) 20 meq PO DAILY [facility] Last Admin: 04/02/20 12:44 Dose: 20 meq Documented by: Ranolazine (Ranexa) 500 mg PO BID [facility] Last Admin: 04/02/20 12:46 Dose: 500 mg Documented by: Sodium Chloride () 10 - 40 ml IV UD PRN PRN Reason: SALINE FLUSH Last Admin: 04/01/20 10:13 Dose: 10 ml Documented by: Discharge Diet: Low fat/ Low Cholesterol, 1800 Calorie Control Diet, 2000 mg Sodium Diet Discharge Activity: Return to Normal Activity Home Medications: Medications to take at Discharge cholecalciferol (vitamin D3) 125 mcg (5,000 unit) capsule 5,000 unit PO DAILY 02/16/19 albuterol sulfate 90 mcg/actuation aerosol inhaler 1 puff INHALATION Q6H 09/26/19 glimepiride 4 mg tablet 4 mg PO BID tab 09/26/19 tiotropium bromide 2.5 mcg/actuation mist for inhalation 2 puff INHALATION DAILY PRN 09/26/19 isosorbide mononitrate 30 mg tablet,extended release 24 hr 30 mg PO DAILY #90 tab 01/16/20 apixaban 2.5 mg tablet 2.5 mg PO BID #60 tab 03/10/20 potassium chloride 20 mEq tablet,extended release 20 meq PO DAILY #34 tab 03/19/20 Atorvastatin Calcium [Lipitor] 50 mg PO BID 03/26/20 Amiodarone HCl [Cordarone] 200 mg PO BID #60 tab 03/29/20 Aspirin E.C. [Ecotrin] 81 mg PO DAILY@0800 #30 tab 03/29/20 Insulin Glargine [Lantus SoloStar Pen] 10 units SUBCUT DAILY #1 box 03/29/20 Metoprolol Tartrate [Lopressor (beta ivy)] 100 mg PO BID #60 tab 03/29/20 Ranolazine [Ranexa] 500 mg PO BID #60 tab 03/29/20 Mirtazapine [Remeron] 15 mg PO QHS #30 tab 04/02/20 Ondansetron HCl [Zofran] 4 mg PO Q6H PRN PRN #12 tab 04/02/20 Pantoprazole Sodium [Protonix] 40 mg PO DAILY #30 tab 04/02/20 Following Prescrptions Were Given to Patient: Amiodarone HCl [Cordarone] 200 mg PO BID #60 tab Transmission Status: Received by [facility] Aspirin E.C. [Ecotrin] 81 mg PO DAILY@0800 #30 tab [facility]: [facility] Insulin Glargine [Lantus SoloStar Pen] 10 units SUBCUT DAILY #1 box Transmission Status: [facility] Metoprolol Tartrate [Lopressor (beta ivy)] 100 mg PO BID #60 tab Transmission Status: [facility] Pantoprazole Sodium [Protonix] 40 mg PO DAILY #30 tab Transmission Status: [facility] Ranolazine [Ranexa] 500 mg PO BID #60 tab Transmission [facility]: [facility] Mirtazapine [Remeron] 15 mg PO QHS #30 tab Transmission Status: [facility] Ondansetron HCl [Zofran] 4 mg PO Q6H PRN PRN #12 tab PRN Reason: Nausea Transmission Status: [facility] Primary Care Physician: Abdoulaye Brock MD [Primary Care Provider] - Please follow up with your Primary Care Physician in: 2 weeks Please Follow Up With: Jason Lemus MD When: as directed Disposition: Home Minutes spent on discharge:: 35 Patient Condition:: Stable Medical Necessity - Tobacco Use Smoking Status: Never smoker Meaningful Use Info Meaningful Use Diagnoses (Choose all that apply): CHF - CHF SHASHA/ARB ordered at discharge?: No Reason SHASHA/ARB not ordered?: Worsening renal disease Documented LVEF (%): 45 <Prosper Frost - Last Filed: 04/02/20 15:53> Discharge Date and Diagnosis - Primary Discharge Diagnosis Acute Problems: Active Problems (Last Updated 03/13/20 @ 11:23 by CARLENE Porter) Amiodarone toxicity (Acute) - Secondary Discharge Diagnosis Chronic Problems: Chronic Problems (Last Updated 03/13/20 @ 11:23 by CARLENE Porter) 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) CABG x 4 COLES to LAD, SVG to diagonal, SVG to proximal end of SVG to diagonal going to OM 2, and SVG to PDA 10/30/16 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) CABG x 4: COLES-LAD, SVG-D1, SVG to proximal end of SVG to diagonal going to OM 2, and SVG-RPDA 10/30/16 Ischemic cardiomyopathy (Chronic) 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 I have independently interviewed and examined the patient and reviewed pertinent history, examination findings, laboratory and plan of management. I have reviewed the note and agree with the documented findings with the few additional points. In brief, the patient is a 80 year old M with history of coronary artery disease status post bypass came to ER with chest pain and shortness of breath. In ED, patient was found to be in A. fib with RVR, elevated troponin and acute kidney injury and was started on Cardizem drip in addition to metoprolol, Eliquis and amiodarone. Chest x-ray showed cardiomegaly with mild congestive changes. The patient had planned/elective cardioversion on 03/30/2020. Patient was converted to sinus rhythm. Following cardioversion patient has increasing liver chemistry along with intractable nausea and vomiting and worsening kidney failure. Patient baseline creatinine runs around 1.6-1.8. Patient admitted with creatinine 1.9 went up to 2.4 and then back to baseline about 1.9 suggestive of acute kidney injury mostly secondary to heart failure on CKD stage III from cardiorenal disease, diabetic nephropathy. Patient also had acute on chronic combined heart failure. EF 45% with diastolic dysfunction and improved. Patient Lasix dose was adjusted. Patient also had acute liver injury mostly secondary to DILI, amiodarone. Amiodarone was discontinued. General surgery was consulted. Liver ultrasound shows gallbladder sludge and HIDA scan was done which did not demonstrate acute cholecystitis but showed duodenal gastric reflux. Diet was advanced to full liquid and patient tolerated well. Patient has right follow-up liver chemistry test in 1 to 2 weeks with PCP. Discharge medication reconciliation done. Discharge follow-up instructions completed. Discharge process discussed with the patient and all questions were answered to patient's satisfaction. Total time spent, exact 35 minutes on discharge meds reconciliation, examination, coordination of care with nurses and ancillary staff, review of imaging and blood test and discussion with the patient on follow-up instructions I have discussed my assessment with Aryan CONCEPCION and orders have been reviewed. [] Subjective: Seen and examined. Patient does not have abdominal pain. Is able to drink water and was able to have soft food. Had mild abdominal bloating sensation on drinking Coke but that is expected of carbonated drink. Patient was advised against drinking carbonated drinks. Has mild loss of appetite. - Physical Exam Vitals/I&O's: Vital Signs Temp Pulse Resp BP Pulse Ox 98.0 F 78 16 136/82 H 94 04/02/20 11:17 04/02/20 12:45 04/02/20 11:17 04/02/20 11:17 04/02/20 11:17 Oxygen Flow Rate (L/min) 1 Oxygen Delivery Method Room Air Weight: 161 lb 9.581 oz Body Mass Index (BMI) 24.5 Intake and Output for Last 24 Hours 03/31/20 04/01/20 04/02/20 23:59 23:59 23:59 Intake Total 1340.00 / 1340.00 1900.00 / 1900.00 330 / 330 Output Total 1045 / 1045 500 / 500 250 / 250 Balance 295.00 / 295.00 1400.00 / 1400.00 80 / 80 General: Alert, Oriented x3, Cooperative HEENT: Atraumatic, PERRLA, EOMI, Normocephalic Neck: Supple, No JVD, Negative Carotid Bruits Lungs: Clear to auscultation, Normal air movement Cardiovascular: Regular rate, Regular Rhythm, Normal S1, Normal S2, No murmurs Abdomen: Bowel Sounds Present, Soft, Non-Distended, Hepatomegaly - Liver edge is rounded about 1 cm below right costal margin., Tender - mild RUQ tenderness Extremities: No edema, Capillary Refill Less than 3 Seconds Skin: No rashes, No breakdown Musculoskeletal: No Tenderness to Palpation of Joints or Extremities, Arthritic Changes Neurological: Cranial nerves II-XII grossly intact, Deep Tendon Reflexes 2+/4 and Symmetrical, Neuro grossly intact Psych/Mental Status: Normal Affect, Appropriate Laboratory Results 03/31/20 11:12: Hepatitis A IgM Ab Negative, Hep Bs Antigen Negative, Hep B Core IgM Ab Negative, Hepatitis C Ab (EIA) <0.1 04/01/20 16:05: POC Glucose 91 04/01/20 21:23: POC Glucose 97 04/02/20 03:04: POC Glucose 76 04/02/20 05:30: WBC 9.1, RBC 5.24, Hgb 15.4, Hct 48.8, MCV 93.1, MCH 29.4, MCHC 31.6 L, RDW Std Deviation 45.9 H, RDW Coeff of Shashank 13.5, Plt Count 176, MPV 11.9, Immature Gran % (Auto) 0.400, Neut % (Auto) 76.5 H, Lymph % (Auto) 13.2 L, Ritchie % (Auto) 9.8, Eos % (Auto) 0.0, Baso % (Auto) 0.1, Absolute Neuts (auto) 7.0, Absolute Lymphs (auto) 1.21, Nucleated RBC % 0 04/02/20 05:30: Sodium 142, Potassium 3.5, Chloride 105, Carbon Dioxide 29.0, Anion Gap 8, BUN 47 H, Creatinine 1.92 H, Estim Creat Clear Calc 29.66, Est GFR (MDRD) Af Amer 43 L, Est GFR (MDRD) Non-Af 36 L, BUN/Creatinine Ratio 24.5 H, Glucose 68 L, Calcium 9.1, Total Bilirubin 2.10 H, AST 116 H, ALT 524 H, Alkaline Phosphatase 124 H, Total Protein 6.3 L, Albumin 3.0 L, Globulin 3.3, Albumin/Globulin Ratio 0.9 04/02/20 06:51: POC Glucose 68 L 04/02/20 07:25: POC Glucose 115 H 04/02/20 12:06: POC Glucose 92 Current Medications Albuterol/Ipratropium (Duoneb) 3 ml INHALATION Q6HWA.RT [facility] Last Admin: 04/02/20 13:45 Dose: Not Given Documented by: Apixaban (Eliquis) 2.5 mg PO BID [facility] Last Admin: 04/02/20 12:44 Dose: 2.5 mg Documented by: Aspirin (Ecotrin) 81 mg PO DAILY@0800 [facility] Last Admin: 04/02/20 12:44 Dose: 81 mg Documented by: Atorvastatin Calcium (Lipitor) 40 mg PO QHS [facility] Last Admin: 04/01/20 21:27 Dose: 40 mg Documented by: Cholecalciferol (Vitamin D (25mcg)) 5,000 unit PO DAILY [facility] Last Admin: 04/02/20 12:46 Dose: 5,000 unit Documented by: Dextrose (D50w Syringe) 0 gm IV X1 PRN; Protocol PRN Reason: Hypoglycemia Last Admin: 04/02/20 06:59 Dose: 12.5 gm Documented by: Furosemide (Lasix) 60 mg PO BID@1000,1800 [facility] Last Admin: 04/02/20 12:44 Dose: 60 mg Documented by: Glimepiride (Amaryl) 4 mg PO BIDCM [facility] Last Admin: 03/30/20 16:31 Dose: Not Given Documented by: Glucagon () 1 mg IM .X1 PRN PRN Reason: Hypoglycemia Sodium Chloride () 500 mls @ 0 mls/hr IV .Q0M [facility] Pantoprazole Sodium 40 mg/ (Sodium Chloride) 110 mls @ 330 mls/hr IV Q12 [facility] Last Infusion: 04/02/20 12:34 Dose: Infused Documented by: Insulin Glargine (Lantus ([facility])) 10 units SC DAILY [facility] Last Admin: 03/30/20 12:06 Dose: Not Given Documented by: Insulin Human Lispro (Humalog Kwikpen ([facility])) 0 unit SC ACHS & 3AM [facility]; Protocol Last Admin: 04/02/20 12:47 Dose: Not Given Documented by: Isosorbide Mononitrate (Imdur) 30 mg PO DAILY [facility] Last Admin: 04/02/20 12:44 Dose: 30 mg Documented by: Metoprolol Tartrate (Lopressor (Beta Ivy)) 100 mg PO BID [facility] Last Admin: 04/02/20 12:45 Dose: 100 mg Documented by: Metoprolol Tartrate (Lopressor (Beta Ivy)) 5 mg IV Q2H PRN PRN PRN Reason: heart rate > 110 Last Admin: 03/29/20 06:06 Dose: 5 mg Documented by: Mirtazapine (Remeron) 15 mg PO QHS [facility] Last Admin: 04/01/20 21:30 Dose: Not Given Documented by: Morphine Sulfate () 4 mg IV Q3H PRN PRN PRN Reason: Pain Score 6-10/10 Nitroglycerin (Nitrostat) 0.4 mg SUBLINGUAL Q5M PRN PRN Reason: CARDIAC/CHEST PAIN Ondansetron HCl (Zofran) 4 mg IV Q8H PRN PRN PRN Reason: NAUSEA Last Admin: 04/01/20 09:39 Dose: 4 mg Documented by: Potassium Chloride (K-Dur) 20 meq PO DAILY [facility] Last Admin: 04/02/20 12:44 Dose: 20 meq Documented by: Ranolazine (Ranexa) 500 mg PO BID [facility] Last Admin: 04/02/20 12:46 Dose: 500 mg Documented by: Sodium Chloride () 10 - 40 ml IV UD PRN PRN Reason: SALINE FLUSH Last Admin: 04/01/20 10:13 Dose: 10 ml Documented by: Inpatient E&M: [id number] Disch Hosp
--- NOTE | 2020-04-02 15:24 | CASEMGMT ---
SW called Palliative Care and let them know patient is being discharged today. SW also faxed d/c instructions. Plan: d/c home with referral to Palliative Care Nichol PURDY MSW
--- NOTE | 2020-04-02 17:12 | NURSING ---
discharge paperwork reviewed with patient and on speakerphone. voiced understanding. questions answered. pt waiting for son to come for transport.
[2020-04-02] MEDS: Insulin Lispro 100 UNIT/ML INSULN.PEN SC (17:29)
[2020-04-02 17:36] LABS: Bedside Glucose 227 mg/dL (70-110)
--- NOTE | 2020-04-03 14:54 | CASEMGMT ---
RN CM F/U Phone Call LACE: 13 Strata: 3 Discharge date: 04/02/2020 Call date: 04/03/2020 Call time: [phone] Attempted to reach pt without success at this time, message left for pt to call this RN CM back if/when able. SStaten RN CM Admission dx: Chest pain, Afib, Renal failure
--- NOTE | 2020-04-09 09:29 | CASEMGMT ---
SW received a voice mail from Emily at [facility]. They reached out 3 times to patient to arrange appt to discuss Palliative Care. He finally asked them to please mail out literature to him and he will call if he is interested. Nichol PURDY MSW
--- OUTSIDE RECORDS SUMMARY | 2020-08-05 10:03 | XMS RPT_ITS | CCD ---
:1940 External Reference #:[id number] Author Organization [facility] Care Team Providers Name Role Phone [...] Prescriber Location aspirin ASPIRIN EC 81 MG [facility] 02-05-2017 [facility] tablet by mouth Group (4 46) daily ASPIRIN [id number] Belle Gonzalez RN atorvastatin LIPITOR 40 MG TABS One 02-05-2017 [facility] tablet by mouth daily Group (83037) every night ATORVASTATIN CALCIUM [id number] Belle Gonzalez RN furosemide LASIX 40 MG TABS One 08-20-2017 [facility] tablet by mouth daily Group (83997) FUROSEMIDE [id number] Zully Reyes RN glimepiride GLIMEPIRIDE 4 MG TABS 02-05-2017 [facility] tablet by mouth Group (4 4691) twice daily GLIMEPIRIDE [id number] Belle Gonzalez RN lisinopril LISINOPRIL 5 MG TABS 03-11-2017 Jason Lemus MD [facility] One tablet by mouth Group (4 4637) daily LISINOPRIL [id number] Jason Lemus MD metoprolol METOPROLOL TARTRATE 50 02-05-2017 [facility] MG TABS One tablet by Group (01053) mouth twice daily METOPROLOL TARTRATE [id number] Belle Gonzalez RN METOPROLOL TARTRATE 25 MG TABS 02-05-2017 Jason Lemus MD [facility] One tablet by mouth twice (51966 ) daily METOPROLOL TARTRATE [id number] Jason Lemus MD warfarin COUMADIN 2.5 MG TABS One 02-05-2017 - 03-11-2017 [facility] tablet by mouth every night (62297) and as directed WARFARIN SODIUM [id number] Jason Lemus MD Problems Active Problems Category Problem Name Status Date Location Acute myocardial Non-ST elevation Active 02-05-2017 - [facility] infarction (NSTEMI) myocardial Group (4 4691) infarction Cardiac dysrhythmias Atrial fibrillation Active 02-03-2017 - [facility] (87862) 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; 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 Coronary atherosclerosis 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 - [facility] and other heart disease disease of [place] Group (70592) coronary artery without angina pectoris Diabetes mellitus Type 2 diabetes mellitus Active 02-05-2017 - [facility] without complication without complication Group (73907) Disorders of lipid Hyperlipidemia Active 02-05-2017 - [facility] metabolism Group (53404) Essential hypertension Hypertensive disorder Active 7 - [facility] (71917) Unclassified Long-term drug therapy Active 02-05-2017 - [facility] (92284) Unclassified Warfarin therapy started Active 02-03-2017 - [facility] (36695) Past or Other Problems Category Problem Name Status Date Location Nonspecific chest pain Chest pain Completed 03-11-2017 - [facility] (94925) Other aftercare Other group home Completed 02-03-2017 - [facility] (current) drug (28627) therapy Other lower respiratory Dyspnea Completed 03-11-2017 [facility] disease (53487) Other lower respiratory Dyspnea on exertion Completed 03-11-2017 - [facility] disease (75028) Results Result Name Value Range Unit Interpretation Flag Date Location lipid on 2018-02-24 Cholesterol 137 131-200 mg/dL Normal 02-24-2018 [facility] ([place]) ([id number]) Comment: Result Comment: Cholesterol Reference Interval:Less than 200 Uugdxdqst299-874 Borderline high vjwn444 and above High risk Performed By: #### LIPID, CM P, GFR ####[address] [place], [place] [address] HDL Cholesterol 35 35-90 mg/dL Normal 02-24-2018 [facility] ([place]) ([id number]) Comment: Result Comment: HDL Referenc e Interval:Less than 40 Low - high risk60 or above Optimal/lowers risk Performed By: #### LIPID, CM P, GFR ####[address] [place], [place] [address] LDL Cholesterol 75 0-130 mg/dL Normal 02-24-2018 [facility] ([place]) ([id number]) Comment: Result Comment: LDL is a christine culated result and requires a 12-hr fast.LDL Reference Interval:Less than 100 Dyxjblx992-573 Near or above yfkytum502-931 Borderline high iyfq982-672 High fnil527 and above Very high risk Performed By: #### LIPID, CM P, GFR ####[address] [place], [place] [address] Triglyceride 135 40-150 mg/dL Normal 02-24-2018 [facility] ([place]) ([id number]) Comment: Result Comment: Triglyceride Reference Interval:Less than 150 Jcktiw251-556 Borderline high amnz648-066 High delq775 or higher Very high risk Performed By: #### LIPID, CM P, GFR ####[address] [place], [place] [address] cmp on 2018-02-24 Alanine aminotransferase (ALT) 18 10-35 IU/L Normal 02-24-2018 [facility] ([place]) ([id number]) Comment: Performed By: #### LIPID, CM P, GFR ####[address] [place], [place] [address] Albumin 4.2 3.4-4.8 G/dL Normal 02-24-2018 [facility]) ([id number]) Comment: Performed By: #### LIPID, CM P, GFR ####[address] [place], [place] [address] Albumin/Globulin Ratio 1.8 1.1-2.5 ratio Normal 018 [facility]) (0000 0) Comment: Performed By: #### LIPID, CM P, GFR ####[address] [place], [place] [address] Alk Phos 77 40-135 IU/L Normal 02-24-2018 [facility]) ([id number]) Comment: Performed By: #### LIPID, CM P, GFR ####[address] [place], [place] [address] Aspartate aminotransferase 18 10-40 IU/L Normal [facility] (48612) Comment: Performed By: #### LIPID, CM P, GFR ####[address] [place], [place] [address] Bili Total 0.7 0.2-1.0 mg/dL Normal 02-24-2018 [facility]) (26657) Comment: Performed By: #### LIPID, CM P, GFR ####[address] [place], [place] [address] BUN/Creatinine Ratio 15 7-27 ratio Normal 8 [facility]) ([id number]) Comment: Performed By: #### LIPID, CM P, GFR ####[address] [place], [place] [address] Calcium 9.6 8.4-10.2 mg/dL Normal 02-24-2018 [facility]) (02776) Comment: Performed By: #### LIPID, CM P, GFR ####[address] [place], [place] [address] Chloride 106 98-107 mEq/L Normal 02-24-2018 [facility] ([place]) ([id number]) Comment: Performed By: #### LIPID, CM P, GFR ####[address] [place], [place] [address] CO2 26 23-31 mEq/L Normal 02-24-2018 [facility] ([place]) ([id number]) Comment: Performed By: #### LIPID, CM P, GFR ####[address] [place], [place] [address] Creatinine 1.7 0.6-1.2 mg/dL High 02-24-2018 [facility] ([place]) ([id number]) Comment: Performed By: #### LIPID, CM P, GFR ####[address] [place], [place] [address] Electrolyte Balance 9.0 mEq/L Normal 02-24-2018 [facility] ([place]) ([id number]) Comment: Performed By: #### LIPID, CM P, GFR ####[address] [place], [place] [address] Globulin 2.4 G/dL Normal 02-24-2018 [facility] ([place]) ([id number]) Comment: Performed By: #### LIPID, CM P, GFR ####[address] [place], [place] [address] Glucose mass conc 93 83-110 mg/dL Normal 02-24-2018 [facility] ([place]) ([id number]) Comment: Performed By: #### LIPID, CM P, GFR ####[address] [place], [place] [address] Potassium molar conc 4.7 3.5-5.1 mEq/L Normal 8 [facility] ([place]) (0000 0) Comment: Performed By: #### LIPID, CM P, GFR ####[address] [place], [place] [address] Protein 6.6 6.0-8.3 G/dL Normal 02-24-2018 [facility] ([place]) ([id number]) Comment: Performed By: #### LIPID, CM P, GFR ####[address] [place], [place] [address] Sodium 141 136-146 mEq/L Normal 02-24-2018 [facility] ([place]) ([id number]) Comment: Performed By: #### LIPID, CM P, GFR ####[address] [place], [place] [address] Urea nitrogen 25.3 7.0-18.0 mg/dL High 02-24-2018 [facility] ([place]) ([id number]) Comment: Performed By: #### LIPID, CM P, GFR ####[address] [place], [place] [address] .gfr on 2018-02-24 eGFR (non-black) 38 ml/min/1.73sqm Normal 02-25-20 18 [facility] ([place]) ([id number]) Comment: Result Comment: GFR Populati on mean [...] By: #### LIPID, CM P, GFR ####[address] [place], [place] [address] eGFR (non-black) 46 ml/min/1.73sqm Normal 02-25-20 18 [facility] ([place]) ([id number]) Comment: Result Comment: GFR Populati on mean [...] By: #### LIPID, CM P, GFR ####[address] [place], [place] [address] lipid on 2017-09-08 Cholesterol 111 131-200 mg/dL Low 09-08-2017 [facility] ([place]) ([id number]) Comment: Result Comment: Cholesterol Reference Interval:Less than 200 Xpzbfqpdh685-327 Borderline high agss476 and above High risk Performed By: #### LIPID, CM P, GFR ####[address] [place], [place] [address] HDL Cholesterol 32 35-90 mg/dL Low 09-08-2017 [facility] ([place]) ([id number]) Comment: Result Comment: HDL Referenc e Interval:Less than 40 Low - high risk60 or above Optimal/lowers risk Performed By: #### LIPID, CM P, GFR ####[address] [place], [place] [address] LDL Cholesterol 57 0-130 mg/dL Normal 09-08-2017 [facility] ([place]) ([id number]) Comment: Result Comment: LDL is a christine culated result and requires a 12-hr fast.LDL Reference Interval:Less than 100 Ieanaqv415-225 Near or above oowccso543-469 Borderline high bebl066-992 High prxe557 and above Very high risk Performed By: #### LIPID, CM P, GFR ####[address] [place], [place] [address] Triglyceride 108 40-150 mg/dL Normal 09-08-2017 [facility] ([place]) ([id number]) Comment: Result Comment: Triglyceride Reference Interval:Less than 150 Pmsvre049-565 Borderline high owuf693-288 High gvuy833 or higher Very high risk Performed By: #### LIPID, CM P, GFR ####[address] [place], [place] [address] cmp on 2017-09-08 Alanine aminotransferase (ALT) 11 10-35 IU/L Normal 09-08-2017 [facility] ([place]) ([id number]) Comment: Performed By: #### LIPID, CM P, GFR ####[address] [place], [place] [address] Albumin 4.1 3.4-4.8 G/dL Normal 09-08-2017 [facility]) ([id number]) Comment: Performed By: #### LIPID, CM P, GFR ####[address] [place], [place] [address] Albumin/Globulin Ratio 1.6 1.1-2.5 ratio Normal 017 [facility] ([place]) (0000 0) Comment: Performed By: #### LIPID, CM P, GFR ####[address] [place], [place] [address] Alk Phos 87 40-135 IU/L Normal 09-08-2017 [facility]) ([id number]) Comment: Performed By: #### LIPID, CM P, GFR ####[address] [place], [place] [address] Aspartate aminotransferase 14 10-40 IU/L Normal [facility] ([facility] (69035) Comment: Performed By: #### LIPID, CM P, GFR ####[address] [place], [place] [address] Bili Total 0.5 0.2-1.0 mg/dL Normal 09-08-2017 [facility]) (70568) Comment: Performed By: #### LIPID, CM P, GFR ####[address] [place], [place] [address] BUN/Creatinine Ratio 13 7-27 ratio Normal 7 [facility] ([place]) ([id number]) Comment: Performed By: #### LIPID, CM P, GFR ####[address] [place], [place] [address] Calcium 9.3 8.4-10.2 mg/dL Normal 09-08-2017 [facility]) ([id number]) Comment: Performed By: #### LIPID, CM P, GFR ####[address] [place], [place] [address] Chloride 107 98-107 mEq/L Normal 09-08-2017 [facility] ([place]) ([id number]) Comment: Performed By: #### LIPID, CM P, GFR ####[address] [place], [place] [address] CO2 27 23-31 mEq/L Normal 09-08-2017 [facility] ([place]) ([id number]) Comment: Performed By: #### LIPID, CM P, GFR ####[address] [place], [place] [address] Creatinine 1.6 0.6-1.2 mg/dL High 09-08-2017 [facility] ([place]) ([id number]) Comment: Performed By: #### LIPID, CM P, GFR ####[address] [place], [place] [address] Electrolyte Balance 7.0 mEq/L Normal 09-08-2017 [facility] ([place]) ([id number]) Comment: Performed By: #### LIPID, CM P, GFR ####[address] [place], [place] [address] Globulin 2.5 G/dL Normal 09-08-2017 [facility] ([place]) ([id number]) Comment: Performed By: #### LIPID, CM P, GFR ####[address] [place], [place] [address] Glucose mass conc 133 83-110 mg/dL High 09-08-2017 [facility] ([place]) ([id number]) Comment: Performed By: #### LIPID, CM P, GFR ####[address] [place], [place] [address] Potassium molar conc 4.5 3.5-5.1 mEq/L Normal 7 [facility] ([place]) (0000 0) Comment: Performed By: #### LIPID, CM P, GFR ####[address] [place], [place] [address] Protein 6.6 6.0-8.3 G/dL Normal 09-08-2017 [facility] ([place]) ([id number]) Comment: Performed By: #### LIPID, CM P, GFR ####[address] [place], [place] [address] Sodium 141 136-146 mEq/L Normal 09-08-2017 [facility] ([place]) ([id number]) Comment: Performed By: #### LIPID, CM P, GFR ####[address] [place], [place] [address] Urea nitrogen 21.1 7.0-18.0 mg/dL High 09-08-2017 [facility] ([place]) ([id number]) Comment: Performed By: #### LIPID, CM P, GFR ####[address] [place], [place] [address] .gfr on 2017-09-08 eGFR (non-black) 42 ml/min/1.73sqm Normal 09-08-20 17 [facility] ([place]) ([id number]) Comment: Result Comment: GFR Populati on mean [...] By: #### LIPID, CM P, GFR ####[address] [place], [place] [address] eGFR (non-black) 51 ml/min/1.73sqm Normal 09-08-20 17 [facility] ([place]) ([id number]) Comment: Result Comment: GFR Populati on mean [...] By: #### LIPID, CM P, GFR ####[address] [place], [place] [address] office visit on 04-28-02 Documentation of Done Invalid Interpretation 08-20-2017 - [facility] current medications Code 08-20-2017 Group (18407) (procedure) clinical lists update on 2017-08-07 Left ventricular 53 % Invalid Interpretation 08-07-2017 - [facility] Ejection fraction Code 08-07-2017 [facility] (35476) lipid on 2017-05-07 Cholesterol 133 131-200 mg/dL Normal 05-07-2017 [facility] ([place]) (35011) Comment: Result Comment: Cholesterol Reference Interval:Less than 200 Owoxmoqsy211-180 Borderline high kadu575 and above High risk Performed By: #### LIPID, CM P, GFR ####[address] [place], [place] [address] HDL Cholesterol 34 35-90 mg/dL Low 05-07-2017 [facility] ([place]) ([id number]) Comment: Result Comment: HDL Referenc e Interval:Less than 40 Low - high risk60 or above Optimal/lowers risk Performed By: #### LIPID, CM P, GFR ####[address] [place], [place] [address] LDL Cholesterol 71 0-130 mg/dL Normal 05-07-2017 [facility] ([place]) ([id number]) Comment: Result Comment: LDL is a christine culated result and requires a 12-hr fast.LDL Reference Interval:Less than 100 Ylvecqe431-395 Near or above jpthoqu028-388 Borderline high vunt364-870 High ugdf508 and above Very high risk Performed By: #### LIPID, CM P, GFR ####[address] [place], [place] [address] Triglyceride 141 40-150 mg/dL Normal 05-07-2017 [facility] ([place]) ([id number]) Comment: Result Comment: Triglyceride Reference Interval:Less than 150 Fvtdig331-121 Borderline high qnrx721-845 High zwfp632 or higher Very high risk Performed By: #### LIPID, CM P, GFR ####[address] [place], [place] [address] gfr on 2017-05-07 eGFR (non-black) 46 ml/min/1.73sqm Normal 05-07-[address] [place] [address] ([place]) ([id number]) Comment: Result Comment: GFR Populati on mean [...] By: #### LIPID, CM P, GFR ####[address] [place], [place] [address] eGFR (non-black) 56 ml/min/1.73sqm Normal 05-07-20 17 [facility] ([place]) ([id number]) Comment: Result Comment: GFR Populati on mean [...] #### LIPID, CM P, GFR ####[address] [place], [place] [address] cmp on 2017-05-07 Alanine aminotransferase (ALT) 13 10-35 ZZ Normal 05-07-2017 [facility] ([place]) ([id number]) Comment: Performed By: #### LIPID, CM P, GFR ####[address] [place], [place] [address] Albumin 4.5 3.4-4.8 G/dL Normal 05-07-2017 [facility] ([place]) ([id number]) Comment: Performed By: #### LIPID, CM P, GFR ####[address] [place], [place] [address] Albumin/Globulin Ratio 1.7 1.1-2.5 ratio Normal 017 [facility] ([place]) (0000 0) Comment: Performed By: #### LIPID, CM P, GFR ####[address] [place], [place] [address] Alk Phos 91 40-135 ZZ Normal 05-07-2017 [facility] ([place]) ([id number]) Comment: Performed By: #### LIPID, CM P, GFR ####[address] [place], [place] [address] Aspartate aminotransferase 14 10-40 ZZ Normal [facility] ([facility] ([place]) ([id number]) Comment: Performed By: #### LIPID, CM P, GFR ####[address] [place], [place] [address] Bili Total 0.6 0.2-1.0 mg/dL Normal 05-07-2017 [facility] ([place]) ([id number]) Comment: Performed By: #### LIPID, CM P, GFR ####[address] [place], [place] [address] BUN/Creatinine Ratio 13 7-27 ratio Normal 201 7 [facility] ([place]) ([id number]) Comment: Performed By: #### LIPID, CM P, GFR ####[address] [place], [place] [address] Calcium 9.6 8.4-10.2 mg/dL Normal 05-07-2017 [facility] ([place]) ([id number]) Comment: Performed By: #### LIPID, CM P, GFR ####[address] [place], [place] [address] Chloride 104 98-107 mEq/L Normal 05-07-2017 [facility] ([place]) ([id number]) Comment: Performed By: #### LIPID, CM P, GFR ####[address] [place], [place] [address] CO2 26 23-31 mEq/L Normal 05-07-2017 [facility] ([place]) ([id number]) Comment: Performed By: #### LIPID, CM P, GFR ####[address] [place], [place] [address] Creatinine 1.5 0.6-1.2 mg/dL High 05-07-2017 [facility] ([place]) ([id number]) Comment: Performed By: #### LIPID, CM P, GFR ####[address] [place], [place] [address] Electrolyte Balance 10.0 mEq/L Normal 05-07-2017 [facility] ([place]) ([id number]) Comment: Performed By: #### LIPID, CM P, GFR ####[address] [place], [place] [address] Globulin 2.6 G/dL Normal 05-07-2017 [facility] ([place]) ([id number]) Comment: Performed By: #### LIPID, CM P, GFR ####[address] [place], [place] [address] Glucose mass conc 145 83-110 mg/dL High 05-07-2017 [facility] ([place]) ([id number]) Comment: Performed By: #### LIPID, CM P, GFR ####[address] [place], [place] [address] Potassium molar conc 4.8 3.5-5.1 mEq/L Normal 7 [facility] (ID) (0000 0) Comment: Performed By: #### LIPID, CM P, GFR ####[address] [place], [place] [address] Protein 7.1 6.0-8.3 G/dL Normal 05-07-2017 [facility]) (06330) Comment: Performed By: #### LIPID, CM P, GFR ####[address] [place], [place] [address] Sodium 140 136-146 mEq/L Normal 05-07-2017 [facility]) (37035) Comment: Performed By: #### LIPID, CM P, GFR ####[address] [place], [place] [address] Urea nitrogen 19.5 7.0-18.0 mg/dL High 05-07-2017 [facility] ([place]) ([id number]) Comment: Performed By: #### LIPID, CM P, GFR ####[address] [place], [place] [address] append: cr referral on 2017-05-04 Clinical [id number]^03/11/2017 Invalid 05-04 - [facility] Interpretation 05-04-2017 [facility] report (record Code Group artifact) ([id number]) replaced document: midmark ecg observati ons on 2017-03-11 BUN (urea nitrogen) Sinus Bradycardia Invalid - Organ -Incomplete left Interpretation 03-11-20 17 Heart bundle branch Code Group block. -Poor (13825) R-wave progression -may be secondary to conduction defect consider old anterior infarct. - Nonspecific T-abnormality. ABNORMAL EKG QRS axis 28 deg Invalid 03-11-2017 [facility] Interpretation 03-11-2017 Hear [facility] Group (54508) GE use only - for 473 ms Invalid 03-11-2017 - [facility] import when Interpretation Heart terms are not Code Group otherwise specified (63211) P Ethel 50 deg Invalid 03-11-2017 - [facility] Interpretation 03-11-2017 [facility] (84735) P wave axis, 50 deg Invalid 03-11-2017 [facility] electrocardiogram Interpretation 017 [facility] Code Group (41632) MN Interval 158 ms Invalid 03-11-2017 - [place] Interpretation 03-11-2017 [facility] (10411) MN interval, 158 ms Invalid 03-11-2017 [facility] electrocardiogram Interpretation 017 [facility] (83162) Protein mass conc Sinus Bradycardia Invalid 02-17 - [facility] -Incomplete left Interpretation 03-11-20 Heart bundle branch Code Group block. -Poor (96303) R-wave progression -may be secondary to conduction defect consider old anterior infarct. - Nonspecific T-abnormality. ABNORMAL Pulse (Heart Rate) 58 BPM /min Invalid 03-11-2017 - Organ Interpretation 03-11-2017 Hear t Code Group (22483) QRS axis, 28 deg Invalid 03-11-2017 - [facility] electro[facility]ogram Interpretation 017 [facility] (97043) QRS Duration 116 ms Invalid 03-11-2017 [facility] Interpretation 03-11-2017 [facility] (98940) QRS duration, 116 ms Invalid 03-11-2017 - [facility] [facility] electrocardiogram Interpretation 017 [facility] Code [facility] (96193) QT Interval new path ms Invalid 03-11-2017 - [facility] [facility] Interpretation 03-11-2017 Hear [facility] (51399) QT interval, new path ms Invalid 03-11-2017 - [place] electrocardiogram Interpretation 017 [facility] (61766) QTc Verde 473 ms Invalid 03-11-2017 - [place] Interpretation 03-11-2017 [facility] (58259) T Ethel -28 deg Invalid 03-11-2017 - [facility] Interpretation 03-11-2017 Hear t Code Group (03144) T wave axis, -28 deg Invalid 03-11-2017 [facility] electro[facility]ogram Interpretation 017 [facility] Code [facility] (97590) office visit on 04-22-24 Documentation of Done Invalid Interpretation 03-11-2017 - [facility] current medications Code 03-11-2017 Group (04048) (procedure) Fall risk assessment Yes Invalid Interpretat ion 03-11-2017 - [facility] Code 03-11-2017 Group (44 691) Protein mass conc Done Invalid Interpretation 03-11-2017 - [facility] Code 03-11-2017 Group (44 071) clinical lists update: preload on 2017-02-05 Tobacco smoking Never smoker Invalid Interpretatio n 02-05-2017 - [facility] status NHIS Code 02-05-2017 Group ( 82244) Tobacco use Never smoker Invalid Interpretation - [facility] CPHS Code 02-05-2017 Group (44 631) lab report: prothrombin time w/inr on 2017-02-04 Coagulation tissue 20.0 SECONDS 11.7-14.9 High 02-05-20 17 - [facility] factor induced in 02-04-2017 [facility] (97083) platelet poor plasma coumadin management: warfarin calc on 2017-02-04 Coagulation tissue 20.0 s Invalid 02-04-2017 - [facility] factor induced in Interpretation Code Heart Group platelet poor (74868 ) plasma INR Coag RelTime 1.8 {INR} Invalid 02-04-2017 - Organ (PPP) Interpretation Code 02-04-2017 [facility] Group (15300) INR in blood by 1.8 {INR} Invalid 02-04-2017 - [place] coagulation Interpretation Code 02-05-20 17 Heart Group (22880) INR in blood by 2 to 3 Invalid 02-04-2017 - [place] coagulation Interpretation Code 02-05-20 17 [facility] Group (01518) INR in blood by Hospital lab Invalid 02-04-2017 - [facility] coagulation Interpretation Code 02-05-20 17 [facility] Group (73958) international 2 to 3 Invalid 02-04-2017 - [place] [facility] normalized ratio Interpretation Code Heart Group (INR) range (73055) Vital Signs Vital Sign Description Value / Unit Date Location The following section is limited to 5 en tries per type and includes entries from the following time range: 20170311 - [id number] 2. BMI (Body Mass Index) 24.81 kg/m2 08-20-2017 - 08-20-2017 [facility] (55479) BMI (Body Mass Index) 26.47 kg/m2 03-11-2017 - 03-11-2017 [facility] (85967) BP Diastolic 60 mm[Hg] 08-20-2017 - 08-20-2017 [facility] (97021) BP Diastolic 60 mm[Hg] 03-11-2017 - 03-11-2017 [facility] (86225) BP Systolic 104 mm[Hg] 08-20-2017 - 08-20-2017 [facility] (27610) BP Systolic 120 mm[Hg] 03-11-2017 - 03-11-2017 [facility] (86532) Heart rate 58 /min 03-11-2017 - 03-11-2017 [facility] (17965) Height 176.53 cm 08-20-2017 - 08-20-2017 [facility] (84528) Height 176.53 cm 03-11-2017 - 03-11-2017 [facility] (71938) Pulse (Heart Rate) 68 /min 08-20-2017 - 08-20-2017 [facility] ([id number]) Pulse (Heart Rate) 64 /min 03-11-2017 - 03-11-2017 [facility] ([id number]) Respiratory Rate 28 /min 03-11-2017 - 03-11-2017 [facility] ([id number]) Weight 77.34 kg 08-20-2017 - 08-20-2017 [facility] ([id number]) Weight 82.51 kg 03-11-2017 - 03-11-2017 [facility] ([id number]) Encounters Date Type Reason Provider Location 02-24-2018 - Ambulatory YUNG Willem JHOAN Facility:[facility] 03-01-2018 [facility] 09-08-2017 - Ambulatory YUNG Willem [facility]AP[facility] Facility:[facility] 09-13-2017 YUNG Willme [facility]OUT [facility] 05-07-2017 Ambulatory Type 2 diabetes [facility] Facility :B mellitus without YUNG STAPLES complications Procedures Procedure Name Date Provider Location Follow Up Appt 6 months 08-20-2017 - Jason Lemus MD [facility] 08-20-2017 ([id number]) [facility] 08-20-2017 - Jason Lemus MD [facility] 08-20-2017 ([id number]) Follow Up Appt 6 months 03-11-2017 - [facility] 08-20-2017 ([id number]) MMM 03-11-2017 - MD [facility] 08-20-2017 ([id number]) INR in Platelet poor 02-03-2017 - [facility] plasma by Coagulation 02-04-2017 ([id number]) assay Coagulation factor 02-03-2017 - [facility] induced.INR assay in 02-04-2017 ([id number]) platelet poor plasma Plan of Treatment Plan Description Date Location Appointment Appointment 03-09-2018 - [facility] 03-09-2018 ([id number]) Follow Up Appt 6 months Follow Up Appt 6 months 08-20-2017 - [facility] 08-20-2017 ([id number]) R R 08-20-2017 - [facility] 08-20-2017 ([id number]) Appointment Appointment 08-20-2017 - [facility] 08-20-2017 ([id number]) Appointment Appointment 08-11-2017 - [facility] 08-11-2017 ([id number]) Appointment Appointment 08-11-2017 - [facility] 08-11-2017 ([id number]) Cardiac Rehab Rehab Cardiac Rehab Rehab 03-11-2017 - [facility], [facility], 17605-04-2017 ([id number]) [place], [place], [id number] EKG (In office) EKG (In office) 03-11-2017 - [facility] 03-11-2017 ([id number]) Follow Up Appt 6 months Follow Up Appt 6 months 03-11-2017 - [facility] 08-20-2017 ([id number]) [facility] 08-20-2017 ([id number]) Cardiac Rehab Rehab no information 03-11-2017 - [facility], 1761 05-04-2017 ([id number]) [place], [id number] EKG (In office) EKG (In office) 03-11-2017 - [facility] 03-11-2017 ([id number]) Follow Up Appt 6 months Follow Up Appt 6 months 03-11-2017 - [facility] 03-11-2017 ([id number]) MMM MMM 03-11-2017 - [facility] 03-11-2017 ([id number]) *PT/INR - Standing Order *PT/INR - Standing Order 02-03-2017 - [facility] 02-04-2017 ([id number]) *PT/INR - Standing Order *PT/INR - Standing Order 02-03-2017 - [facility] 02-04-2017 ([id number]) Payers Payer Name Policy Number Renetta GILBERT [id number] [employer] ([place] ([id number]) Summary Purpose Family History No Family History [...] BE BASED ON THE PRIMARY CLINICAL RECORDS. [facility] provides no warranty or guarantee of the accuracy or completeness of information in this document. UNRECOGNIZED CONTENT PROVIDED BELOW FOR UNRECOGNIZED SECTION No Status Records Found UNRECOGNIZED CONTENT PROVIDED BELOW FOR UNRECOGNIZED SECTION INFORMATION SOURCE DATE CREATED AUTHOR AUTHOR'S ORGANIZATIO N 04/07/2018 [employer] [facility] [place]
--- OUTSIDE RECORDS SUMMARY | 2020-08-05 10:03 | XMS RPT_ITS | CCD ---
:1940 External Reference #:[id number] Author Organization [facility] Care Team Providers Name Role Phone [...] Prescriber Location aspirin ASPIRIN EC 81 MG [facility] 02-05-2017 [facility] One tablet by mouth Group (4 4672) daily ASPIRIN [id number] Belle Gonzalez RN atorvastatin LIPITOR 40 MG TABS One 02-05-2017 [facility] tablet by mouth daily Group (46859) every night ATORVASTATIN CALCIUM [id number] Belle Gonzalez RN furosemide LASIX 40 MG TABS One 08-20-2017 [facility] tablet by mouth daily Group (82489) FUROSEMIDE [id number] Zully Reyes RN glimepiride GLIMEPIRIDE 4 MG TABS 02-05-2017 [facility] tablet by mouth Group (4 4691) twice daily GLIMEPIRIDE [id number] Belle Gonzalez RN lisinopril LISINOPRIL 5 MG TABS 03-11-2017 Jason Lemus MD [facility] One tablet by mouth Group (4 4674) daily LISINOPRIL [id number] Jason Lemus MD metoprolol METOPROLOL TARTRATE 50 02-05-2017 [facility] MG TABS One tablet by Group (04269) mouth twice daily METOPROLOL TARTRATE [id number] Belle Gonzalez RN METOPROLOL TARTRATE 25 MG TABS 02-05-2017 Jason Lemus MD [facility] One tablet by mouth twice (23903 ) daily METOPROLOL TARTRATE [id number] Jason Lemus MD warfarin COUMADIN 2.5 MG TABS One 02-05-2017 - 03-11-2017 [facility] tablet by mouth every night (05396) and as directed WARFARIN SODIUM [id number] Jason Lemus MD Problems Active Problems Category Problem Name Status Date Location Acute myocardial Non-ST elevation Active 02-05-2017 - [facility] infarction (NSTEMI) myocardial Group (4 4691) infarction Cardiac dysrhythmias Atrial fibrillation Active 02-03-2017 - [facility] (50526) 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; 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 Coronary atherosclerosis 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 - [facility] and other heart disease disease of [place] Group (82636) coronary artery without angina pectoris Diabetes mellitus Type 2 diabetes mellitus Active 02-05-2017 - [facility] without complication without complication Group (17108) Disorders of lipid Hyperlipidemia Active 02-05-2017 - [facility] metabolism Group (38243) Essential hypertension Hypertensive disorder Active 7 - [facility] (19218) Unclassified Long-term drug therapy Active 02-05-2017 - [facility] (68945) Unclassified Warfarin therapy started Active 02-03-2017 - [facility] (01431) Past or Other Problems Category Problem Name Status Date Location Nonspecific chest pain Chest pain Completed 03-11-2017 - [facility] (43741) Other aftercare Other fci Completed 02-03-2017 - [facility] (current) drug (61721) therapy Other lower respiratory Dyspnea Completed 03-11-2017 [facility] disease (66615) Other lower respiratory Dyspnea on exertion Completed 03-11-2017 - [facility] disease (42378) Results Result Name Value Range Unit Interpretation Flag Date Location lipid on 2018-02-24 Cholesterol 137 131-200 mg/dL Normal 02-24-2018 [facility] ([place]) (50673) Comment: Result Comment: Cholesterol Reference Interval:Less than 200 Qmxxkvqxj776-539 Borderline high gukd565 and above High risk Performed By: #### LIPID, CM P, GFR ####[address] [place], [place] [address] HDL Cholesterol 35 35-90 mg/dL Normal 02-24-2018 [facility] ([place]) (65161) Comment: Result Comment: HDL Referenc e Interval:Less than 40 Low - high risk60 or above Optimal/lowers risk Performed By: #### LIPID, CM P, GFR ####[address] [place], [place] [address] LDL Cholesterol 75 0-130 mg/dL Normal 02-24-2018 [facility] ([place]) (86168) Comment: Result Comment: LDL is a christine culated result and requires a 12-hr fast.LDL Reference Interval:Less than 100 Bhgeuib036-508 Near or above qglaxqi155-250 Borderline high uwzy772-879 High edqa933 and above Very high risk Performed By: #### LIPID, CM P, GFR ####[address] [place], [place] [address] Triglyceride 135 40-150 mg/dL Normal 02-24-2018 [facility] ([place]) (57263) Comment: Result Comment: Triglyceride Reference Interval:Less than 150 Lwxetb775-303 Borderline high lzye851-227 High toay149 or higher Very high risk Performed By: #### LIPID, CM P, GFR ####[address] [place], [place] [address] cmp on 2018-02-24 Alanine aminotransferase (ALT) 18 10-35 IU/L Normal 02-24-2018 [facility] ([place]) (11989) Comment: Performed By: #### LIPID, CM P, GFR ####[address] [place], [place] [address] Albumin 4.2 3.4-4.8 G/dL Normal 02-24-2018 Replaced by [facility]) (91304) Comment: Performed By: #### LIPID, CM P, GFR ####[address] [place], [place] [address] Albumin/Globulin Ratio 1.8 1.1-2.5 ratio Normal 018 [facility]) (0000 0) Comment: Performed By: #### LIPID, CM P, GFR ####[address] [place], [place] [address] Alk Phos 77 40-135 IU/L Normal 02-24-2018 Replaced by [facility]) (29750) Comment: Performed By: #### LIPID, CM P, GFR ####[address] [place], [place] [address] Aspartate aminotransferase 18 10-40 IU/L Normal [facility] (25898) Comment: Performed By: #### LIPID, CM P, GFR ####[address] [place], [place] [address] Bili Total 0.7 0.2-1.0 mg/dL Normal 02-24-2018 [facility]) (90131) Comment: Performed By: #### LIPID, CM P, GFR ####[address] [place], [place] [address] BUN/Creatinine Ratio 15 7-27 ratio Normal 8 [facility]) (29640) Comment: Performed By: #### LIPID, CM P, GFR ####[address] [place], [place] [address] Calcium 9.6 8.4-10.2 mg/dL Normal 02-24-2018 Replaced by [facility]) (42762) Comment: Performed By: #### LIPID, CM P, GFR ####[address] [place], [place] [address] Chloride 106 98-107 mEq/L Normal 02-24-2018 [facility] ([place]) (47773) Comment: Performed By: #### LIPID, CM P, GFR ####[address] [place], [place] [address] CO2 26 23-31 mEq/L Normal 02-24-2018 [facility] ([place]) (18446) Comment: Performed By: #### LIPID, CM P, GFR ####[address] [place], [place] [address] Creatinine 1.7 0.6-1.2 mg/dL High 02-24-2018 [facility] ([place]) (34285) Comment: Performed By: #### LIPID, CM P, GFR ####[address] [place], [place] [address] Electrolyte Balance 9.0 mEq/L Normal 02-24-2018 [facility] ([place]) (75290) Comment: Performed By: #### LIPID, CM P, GFR ####[address] [place], [place] [address] Globulin 2.4 G/dL Normal 02-24-2018 [facility] ([place]) (07740) Comment: Performed By: #### LIPID, CM P, GFR ####[address] [place], [place] [address] Glucose mass conc 93 83-110 mg/dL Normal 02-24-2018 [facility] ([place]) (89240) Comment: Performed By: #### LIPID, CM P, GFR ####[address] [place], [place] [address] Potassium molar conc 4.7 3.5-5.1 mEq/L Normal 8 [facility] ([place]) (0000 0) Comment: Performed By: #### LIPID, CM P, GFR ####[address] [place], [place] [address] Protein 6.6 6.0-8.3 G/dL Normal 02-24-2018 [facility] ([place]) (62506) Comment: Performed By: #### LIPID, CM P, GFR ####[address] [place], [place] [address] Sodium 141 136-146 mEq/L Normal 02-24-2018 [facility] ([place]) (74039) Comment: Performed By: #### LIPID, CM P, GFR ####[address] [place], [place] [address] Urea nitrogen 25.3 7.0-18.0 mg/dL High 02-24-2018 [facility] ([place]) (07485) Comment: Performed By: #### LIPID, CM P, GFR ####[address] [place], [place] [address] .gfr on 2018-02-24 eGFR (non-black) 38 ml/min/1.73sqm Normal 02-25-20 18 [facility] ([place]) (86695) Comment: Result Comment: GFR Populati on mean [...] By: #### LIPID, CM P, GFR ####[address] [place], [place] [address] eGFR (non-black) 46 ml/min/1.73sqm Normal 02-25-20 18 [facility] ([place]) (37737) Comment: Result Comment: GFR Populati on mean [...] By: #### LIPID, CM P, GFR ####[address] [place], [place] [address] lipid on 2017-09-08 Cholesterol 111 131-200 mg/dL Low 09-08-2017 [facility] ([place]) (90224) Comment: Result Comment: Cholesterol Reference Interval:Less than 200 Hrjnmpyja036-490 Borderline high luwa559 and above High risk Performed By: #### LIPID, CM P, GFR ####[address] [place], [place] [address] HDL Cholesterol 32 35-90 mg/dL Low 09-08-2017 [facility] ([place]) (44572) Comment: Result Comment: HDL Referenc e Interval:Less than 40 Low - high risk60 or above Optimal/lowers risk Performed By: #### LIPID, CM P, GFR ####[address] [place], [place] [address] LDL Cholesterol 57 0-130 mg/dL Normal 09-08-2017 [facility] ([place]) (52781) Comment: Result Comment: LDL is a christine culated result and requires a 12-hr fast.LDL Reference Interval:Less than 100 Apzwlgq887-608 Near or above hqwwyjy845-824 Borderline high ijbk181-392 High jbgp368 and above Very high risk Performed By: #### LIPID, CM P, GFR ####[address] [place], [place] [address] Triglyceride 108 40-150 mg/dL Normal 09-08-2017 [facility] ([place]) (87711) Comment: Result Comment: Triglyceride Reference Interval:Less than 150 Abhrmh598-663 Borderline high dtod974-599 High lxhe796 or higher Very high risk Performed By: #### LIPID, CM P, GFR ####[address] [place], [place] [address] cmp on 2017-09-08 Alanine aminotransferase (ALT) 11 10-35 IU/L Normal 09-08-2017 [facility] ([place]) (26179) Comment: Performed By: #### LIPID, CM P, GFR ####[address] [place], [place] [address] Albumin 4.1 3.4-4.8 G/dL Normal 09-08-2017 Replaced by [facility]) (32431) Comment: Performed By: #### LIPID, CM P, GFR ####[address] [place], [place] [address] Albumin/Globulin Ratio 1.6 1.1-2.5 ratio Normal 017 [facility] ([place] (0000 0) Comment: Performed By: #### LIPID, CM P, GFR ####[address] [place], [place] [address] Alk Phos 87 40-135 IU/L Normal 09-08-2017 Replaced by [facility]) (01046) Comment: Performed By: #### LIPID, CM P, GFR ####[address] [place], [place] [address] Aspartate aminotransferase 14 10-40 IU/L Normal [facility]) (05278) Comment: Performed By: #### LIPID, CM P, GFR ####[address] [place], [place] [address] Bili Total 0.5 0.2-1.0 mg/dL Normal 09-08-2017 [facility]) (06751) Comment: Performed By: #### LIPID, CM P, GFR ####[address] [place], [place] [address] BUN/Creatinine Ratio 13 7-27 ratio Normal 7 [facility] ([place]) (81967) Comment: Performed By: #### LIPID, CM P, GFR ####[address] [place], [place] [address] Calcium 9.3 8.4-10.2 mg/dL Normal 09-08-2017 Replaced by [facility]) (88442) Comment: Performed By: #### LIPID, CM P, GFR ####[address] [place], [place] [address] Chloride 107 98-107 mEq/L Normal 09-08-2017 [facility] ([place]) (55611) Comment: Performed By: #### LIPID, CM P, GFR ####[address] [place], [place] [address] CO2 27 23-31 mEq/L Normal 09-08-2017 [facility] ([place]) (29205) Comment: Performed By: #### LIPID, CM P, GFR ####[address] [place], [place] [address] Creatinine 1.6 0.6-1.2 mg/dL High 09-08-2017 [facility] ([place]) (57167) Comment: Performed By: #### LIPID, CM P, GFR ####[address] [place], [place] [address] Electrolyte Balance 7.0 mEq/L Normal 09-08-2017 [facility] ([place]) (45912) Comment: Performed By: #### LIPID, CM P, GFR ####[address] [place], [place] [address] Globulin 2.5 G/dL Normal 09-08-2017 [facility] ([place]) (73379) Comment: Performed By: #### LIPID, CM P, GFR ####[address] [place], [place] [address] Glucose mass conc 133 83-110 mg/dL High 09-08-2017 [facility] ([place]) (01835) Comment: Performed By: #### LIPID, CM P, GFR ####[address] [place], [place] [address] Potassium molar conc 4.5 3.5-5.1 mEq/L Normal 7 [facility] ([place]) (0000 0) Comment: Performed By: #### LIPID, CM P, GFR ####[address] [place], [place] [address] Protein 6.6 6.0-8.3 G/dL Normal 09-08-2017 [facility] ([place]) (15556) Comment: Performed By: #### LIPID, CM P, GFR ####[address] [place], [place] [address] Sodium 141 136-146 mEq/L Normal 09-08-2017 [facility] ([place]) (47436) Comment: Performed By: #### LIPID, CM P, GFR ####[address] [place], [place] [address] Urea nitrogen 21.1 7.0-18.0 mg/dL High 09-08-2017 [facility] ([place]) (05050) Comment: Performed By: #### LIPID, CM P, GFR ####[address] [place], [place] [address] .gfr on 2017-09-08 eGFR (non-black) 42 ml/min/1.73sqm Normal 09-08-20 17 [facility] ([place]) (10504) Comment: Result Comment: GFR Populati on mean [...] By: #### LIPID, CM P, GFR ####[address] [place], [place] [address] eGFR (non-black) 51 ml/min/1.73sqm Normal 09-08-20 17 [facility] ([place] (93492) Comment: Result Comment: GFR Populati on mean [...] By: #### LIPID, CM P, GFR ####[address] [place], [place] [address] office visit on 04-28-02 Documentation of Done Invalid Interpretation 08-20-2017 - [facility] current medications Code 08-20-2017 Group (29438) (procedure) clinical lists update on 2017-08-07 Left ventricular 53 % Invalid Interpretation 08-07-2017 - [facility] Ejection fraction Code 08-07-2017 [facility] (87138) lipid on 2017-05-07 Cholesterol 133 131-200 mg/dL Normal 05-07-2017 [facility] ([place]) (41679) Comment: Result Comment: Cholesterol Reference Interval:Less than 200 Hrenpnjev609-765 Borderline high phfn151 and above High risk Performed By: #### LIPID, CM P, GFR ####[address] [place], [place] [address] HDL Cholesterol 34 35-90 mg/dL Low 05-07-2017 [facility] ([place]) (06924) Comment: Result Comment: HDL Referenc e Interval:Less than 40 Low - high risk60 or above Optimal/lowers risk Performed By: #### LIPID, CM P, GFR ####[address] [place], [place] [address] LDL Cholesterol 71 0-130 mg/dL Normal 05-07-2017 [facility] ([place]) (20542) Comment: Result Comment: LDL is a christine culated result and requires a 12-hr fast.LDL Reference Interval:Less than 100 Nrvkkkk409-379 Near or above oopbwws404-402 Borderline high rlbi681-991 High lumy496 and above Very high risk Performed By: #### LIPID, CM P, GFR ####[address] [place], [place] [address] Triglyceride 141 40-150 mg/dL Normal 05-07-2017 [facility] ([place]) (23286) Comment: Result Comment: Triglyceride Reference Interval:Less than 150 Khqigg327-959 Borderline high diln199-678 High zwen099 or higher Very high risk Performed By: #### LIPID, CM P, GFR ####[address] [place], [place] [address] gfr on 2017-05-07 eGFR (non-black) 46 ml/min/1.73sqm Normal 05-07-[address] [place] [address] ([place]) ([address]) Comment: Result Comment: GFR Populati on mean [...] By: #### LIPID, CM P, GFR ####[address] [place], [place] [address] eGFR (non-black) 56 ml/min/1.73sqm Normal 05-07-20 17 [facility] ([place]) (49078) Comment: Result Comment: GFR Populati on mean [...] #### LIPID, CM P, GFR ####[address] [place], [place] [address] cmp on 2017-05-07 Alanine aminotransferase (ALT) 13 10-35 ZZ Normal 05-07-2017 [facility] ([place]) (18285) Comment: Performed By: #### LIPID, CM P, GFR ####[address] [place], [place] [address] Albumin 4.5 3.4-4.8 G/dL Normal 05-07-2017 [facility] ([place]) (94634) Comment: Performed By: #### LIPID, CM P, GFR ####[address] [place], [place] [address] Albumin/Globulin Ratio 1.7 1.1-2.5 ratio Normal 017 [facility] ([place] (0000 0) Comment: Performed By: #### LIPID, CM P, GFR ####[address] [place], [place] [address] Alk Phos 91 40-135 ZZ Normal 05-07-2017 [facility] ([place]) (02910) Comment: Performed By: #### LIPID, CM P, GFR ####[address] [place], [place] [address] Aspartate aminotransferase 14 10-40 ZZ Normal [facility] ([place]) (63472) Comment: Performed By: #### LIPID, CM P, GFR ####[address] [place], [place] [address] Bili Total 0.6 0.2-1.0 mg/dL Normal 05-07-2017 [facility] ([place]) (83631) Comment: Performed By: #### LIPID, CM P, GFR ####[address] [place], [place] [address] BUN/Creatinine Ratio 13 7-27 ratio Normal 201 7 [facility] ([place]) (61591) Comment: Performed By: #### LIPID, CM P, GFR ####[address] [place], [place] [address] Calcium 9.6 8.4-10.2 mg/dL Normal 05-07-2017 [facility] ([place]) (29096) Comment: Performed By: #### LIPID, CM P, GFR ####[address] [place], [place] [address] Chloride 104 98-107 mEq/L Normal 05-07-2017 [facility] ([place]) (72005) Comment: Performed By: #### LIPID, CM P, GFR ####[address] [place], [place] [address] CO2 26 23-31 mEq/L Normal 05-07-2017 [facility] ([place]) (20674) Comment: Performed By: #### LIPID, CM P, GFR ####[address] [place], [place] [address] Creatinine 1.5 0.6-1.2 mg/dL High 05-07-2017 [facility] ([place]) (06756) Comment: Performed By: #### LIPID, CM P, GFR ####[address] [place], [place] [address] Electrolyte Balance 10.0 mEq/L Normal 05-07-2017 [facility] ([place]) (05783) Comment: Performed By: #### LIPID, CM P, GFR ####[address] [place], [place] [address] Globulin 2.6 G/dL Normal 05-07-2017 [facility] ([place]) (51313) Comment: Performed By: #### LIPID, CM P, GFR ####[address] [place], [place] [address] Glucose mass conc 145 83-110 mg/dL High 05-07-2017 [facility] ([place]) (81172) Comment: Performed By: #### LIPID, CM P, GFR ####[address] [place], [place] [address] Potassium molar conc 4.8 3.5-5.1 mEq/L Normal 7 [facility] ([place]) (0000 0) Comment: Performed By: #### LIPID, CM P, GFR ####[address] [place], [place] [address] Protein 7.1 6.0-8.3 G/dL Normal 05-07-2017 Replaced by [facility]) (88716) Comment: Performed By: #### LIPID, CM P, GFR ####[address] [place], [place] [address] Sodium 140 136-146 mEq/L Normal 05-07-2017 Replaced by [facility]) (34554) Comment: Performed By: #### LIPID, CM P, GFR ####[address] [place], [place] [address] Urea nitrogen 19.5 7.0-18.0 mg/dL High 05-07-2017 [facility] ([place]) (89381) Comment: Performed By: #### LIPID, CM P, GFR ####[address] [place], [place] [address] append: cr referral on 2017-05-04 Clinical [id number]^03/11/2017 Invalid 05-04 - [facility] consultation Interpretation 05-04-2017 [facility] eart report (record Code Group artifact) ([id number]) replaced document: midmark ecg observati ons on 2017-03-11 BUN (urea nitrogen) Sinus Bradycardia Invalid - [place] -Incomplete left Interpretation 03-11-20 17 Heart bundle branch Code Group block. -Poor (96217) R-wave progression -may be secondary to conduction defect consider old anterior infarct. - Nonspecific T-abnormality. ABNORMAL EKG QRS axis 28 deg Invalid 03-11-2017 [facility] Interpretation 03-11-2017 [facility] (35760) GE use only - for 473 ms Invalid 03-11-2017 - [facility] [employer] import when Interpretation Heart terms are not Code Group otherwise specified (01428) P [place] 50 deg Invalid 03-11-2017 - [place] Interpretation 03-11-2017 Hear [facility] (41022) P wave axis, 50 deg Invalid 03-11-2017 [facility] electrocardiogram Interpretation 017 [facility] Code [facility] (89838) DC Interval 158 ms Invalid 03-11-2017 - [place] Interpretation 03-11-2017 Hear [facility] (47374) DC interval, 158 ms Invalid 03-11-2017 [facility] electrocardiogram Interpretation 017 [facility] Code [facility] (97786) Protein mass conc Sinus Bradycardia Invalid 02-17 - [place] -Incomplete left Interpretation 03-11-20 Heart bundle branch Code Group block. -Poor (06797) R-wave progression -may be secondary to conduction defect consider old anterior infarct. - Nonspecific T-abnormality. ABNORMAL Pulse (Heart Rate) 58 BPM /min Invalid 03-11-2017 - [place] Interpretation 03-11-2017 Hear t Code Group (85235) QRS axis, 28 deg Invalid 03-11-2017 - [facility] electrocardiogram Interpretation 017 [facility] Code [facility] (16688) QRS Duration 116 ms Invalid 03-11-2017 - [facility] Interpretation 03-11-2017 Hear t Code [facility] (73856) QRS duration, 116 ms Invalid 03-11-2017 - [place] [facility] electrocardiogram Interpretation 017 [facility] Code [facility] (01242) QT Interval new path ms Invalid 03-11-2017 - [place] [facility] Interpretation 03-11-2017 Hear t Code [facility] (33648) QT interval, new path ms Invalid 03-11-2017 - [place] electrocardiogram Interpretation 017 [facility] Code [facility] (42440) QTc [place] 473 ms Invalid 03-11-2017 - [place] Interpretation 03-11-2017 Hear t Code Group (82124) T [place] -28 deg Invalid 03-11-2017 - [facility] Interpretation 03-11-2017 Hear t Code [facility] (09306) T wave axis, -28 deg Invalid 03-11-2017 [facility] electro[facility]ogram Interpretation 017 [facility] Code [facility] (40733) office visit on 04-22-24 Documentation of Done Invalid Interpretation 03-11-2017 - [facility] current medications Code 03-11-2017 Group (35405) (procedure) Fall risk assessment Yes Invalid Interpretat ion 03-11-2017 - [facility] Code 03-11-2017 Group (44 691) Protein mass conc Done Invalid Interpretation 03-11-2017 - [facility] Code 03-11-2017 Group (44 021) clinical lists update: preload on 2017-02-05 Tobacco smoking Never smoker Invalid Interpretatio n 02-05-2017 - [facility] status NHIS Code 02-05-2017 Group ( 73358) Tobacco use Never smoker Invalid Interpretation - [facility] CPHS Code 02-05-2017 Group (44 261) lab report: prothrombin time w/inr on 2017-02-04 Coagulation tissue 20.0 SECONDS 11.7-14.9 High 02-05-20 17 - [facility] factor induced in 02-04-2017 [facility] (07653) platelet poor plasma coumadin management: warfarin calc on 2017-02-04 Coagulation tissue 20.0 s Invalid 02-04-2017 - [facility] factor induced in Interpretation Code Heart Group platelet poor (41268 ) plasma INR Coag RelTime 1.8 {INR} Invalid 02-04-2017 - [place] (PPP) Interpretation Code 02-04-2017 Heart Group (56804) INR in blood by 1.8 {INR} Invalid 02-04-2017 - [place] coagulation Interpretation Code 02-05-20 17 Heart Group (67937) INR in blood by 2 to 3 Invalid 02-04-2017 - [place] coagulation Interpretation Code 02-05-20 17 Heart Group (32313) INR in blood by Hospital lab Invalid 02-04-2017 - [place] coagulation Interpretation Code 02-05-20 17 Heart Group (32743) international 2 to 3 Invalid 02-04-2017 - [place] [facility] normalized ratio Interpretation Code [facility] Group (INR) range (18080) Vital Signs Vital Sign Description Value / Unit Date Location The following section is limited to 5 en tries per type and includes entries from the following time range: 20170311 - [id number] 2. BMI (Body Mass Index) 24.81 kg/m2 08-20-2017 - 08-20-2017 [facility] (76835) BMI (Body Mass Index) 26.47 kg/m2 03-11-2017 - 03-11-2017 [facility] (86288) BP Diastolic 60 mm[Hg] 08-20-2017 - 08-20-2017 [facility] (12811) BP Diastolic 60 mm[Hg] 03-11-2017 - 03-11-2017 [facility] (80981) BP Systolic 104 mm[Hg] 08-20-2017 - 08-20-2017 [facility] (77887) BP Systolic 120 mm[Hg] 03-11-2017 - 03-11-2017 [facility] (41626) Heart rate 58 /min 03-11-2017 - 03-11-2017 [facility] (27816) Height 176.53 cm 08-20-2017 - 08-20-2017 [facility] ([id number]) Height 176.53 cm 03-11-2017 - 03-11-2017 [facility] ([id number]) Pulse (Heart Rate) 68 /min 08-20-2017 - 08-20-2017 [facility] ([id number]) Pulse (Heart Rate) 64 /min 03-11-2017 - 03-11-2017 [facility] ([id number]) Respiratory Rate 28 /min 03-11-2017 - 03-11-2017 [facility] ([id number]) Weight 77.34 kg 08-20-2017 - 08-20-2017 [facility] ([id number]) Weight 82.51 kg 03-11-2017 - 03-11-2017 [facility] ([id number]) Encounters Date Type Reason Provider Location 02-24-2018 - Ambulatory YUNG Willem JHOAN Facility:[facility] 03-01-2018 [facility] [place] 09-08-2017 - Ambulatory YUNG Willem [facility] Facility:[facility] 09-13-2017 [facility]UNG Willem [facility] [place] 05-07-2017 Ambulatory Type 2 diabetes [facility] Facility :B mellitus without YUNG STAPLES complications Procedures Procedure Name Date Provider Location Follow Up Appt 6 months 08-20-2017 - Jason Lemus MD [facility] 08-20-2017 ([id number]) [facility] 08-20-2017 - Jason Lemus MD [facility] 08-20-2017 ([id number]) Follow Up Appt 6 months 03-11-2017 - [facility] 08-20-2017 ([id number]) MMM 03-11-2017 - MD [facility] 08-20-2017 ([id number]) INR in Platelet poor 02-03-2017 - [facility] plasma by Coagulation 02-04-2017 ([id number]) assay Coagulation factor 02-03-2017 - [facility] induced.INR assay in 02-04-2017 ([id number]) platelet poor plasma Plan of Treatment Plan Description Date Location Appointment Appointment 03-09-2018 - [facility] 03-09-2018 ([id number]) Follow Up Appt 6 months Follow Up Appt 6 months 08-20-2017 - [facility] 08-20-2017 ([id number]) R R 08-20-2017 - [facility] 08-20-2017 ([id number]) Appointment Appointment 08-20-2017 - [facility] 08-20-2017 ([id number]) Appointment Appointment 08-11-2017 - [facility] 08-11-2017 ([id number]) Appointment Appointment 08-11-2017 - [facility] 08-11-2017 ([id number]) Cardiac Rehab Rehab Cardiac Rehab Rehab 03-11-2017 - [facility], [facility], 17605-04-2017 ([id number]) [place], [place], [id number] EKG (In office) EKG (In office) 03-11-2017 - [facility] 03-11-2017 ([id number]) Follow Up Appt 6 months Follow Up Appt 6 months 03-11-2017 - [facility] 08-20-2017 ([id number]) [facility] 08-20-2017 ([id number]) Cardiac Rehab Rehab no information 03-11-2017 - [facility], 1761 05-04-2017 ([id number]) [place], [id number] EKG (In office) EKG (In office) 03-11-2017 - [facility] 03-11-2017 ([id number]) Follow Up Appt 6 months Follow Up Appt 6 months 03-11-2017 - [facility] 03-11-2017 ([id number]) MMM MMM 03-11-2017 - [facility] 03-11-2017 ([id number]) *PT/INR - Standing Order *PT/INR - Standing Order 02-03-2017 - [facility] 02-04-2017 ([id number]) *PT/INR - Standing Order *PT/INR - Standing Order 02-03-2017 - [facility] 02-04-2017 ([id number]) Payers Payer Name Policy Number Renetta GILBERT [id number] [employer] ([place] ([id number]) Summary Purpose Family History No Family History [...] BE BASED ON THE PRIMARY CLINICAL RECORDS. [facility] provides no warranty or guarantee of the accuracy or completeness of information in this document. UNRECOGNIZED CONTENT PROVIDED BELOW FOR UNRECOGNIZED SECTION No Status Records Found UNRECOGNIZED CONTENT PROVIDED BELOW FOR UNRECOGNIZED SECTION INFORMATION SOURCE DATE CREATED AUTHOR AUTHOR'S ORGANIZATIO N 04/07/2018 [employer] [facility] [place]
--- OUTSIDE RECORDS SUMMARY | 2020-08-05 10:04 | XMS RPT_ITS | CCD ---
:1940 External Reference #:[id number] Author Organization [facility] Care Team Providers Name Role [...] Prescriber Location aspirin ASPIRIN EC 81 MG [facility] 02-05-2017 [facility] One tablet by mouth Group (4 4656) daily ASPIRIN [id number] Belle Gonzalez RN atorvastatin LIPITOR 40 MG TABS One 02-05-2017 [facility] tablet by mouth daily Group (82575) every night ATORVASTATIN CALCIUM [id number] Belle Gonzalez RN furosemide LASIX 40 MG TABS One 08-20-2017 [facility] tablet by mouth daily Group (03254) FUROSEMIDE [id number] Zully Reyes RN glimepiride GLIMEPIRIDE 4 MG TABS 02-05-2017 [facility] tablet by mouth Group (4 4691) twice daily GLIMEPIRIDE [id number] Belle Gonzalez RN lisinopril LISINOPRIL 5 MG TABS 03-11-2017 Jason Lemus MD [facility] One tablet by mouth Group (4 4622) daily LISINOPRIL [id number] Jason Lemus MD metoprolol METOPROLOL TARTRATE 50 02-05-2017 [facility] MG TABS One tablet by Group (87229) mouth twice daily METOPROLOL TARTRATE [id number] Belle Gonzalez RN METOPROLOL TARTRATE 25 MG TABS 02-05-2017 Jason Lemus MD [facility] One tablet by mouth twice (25440 ) daily METOPROLOL TARTRATE [id number] Jason Lemus MD warfarin COUMADIN 2.5 MG TABS One 02-05-2017 - 03-11-2017 [facility] tablet by mouth every night (18678) and as directed WARFARIN SODIUM [id number] Jason Lemus MD Problems Active Problems Category Problem Name Status Date Location Acute myocardial Non-ST elevation Active 02-05-2017 - [facility] infarction (NSTEMI) myocardial Group (4 4691) infarction Cardiac dysrhythmias Atrial fibrillation Active 02-03-2017 - [facility] (10389) 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; 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 Coronary atherosclerosis 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 - [facility] and other heart disease disease of [place] Group (49227) coronary artery without angina pectoris Diabetes mellitus Type 2 diabetes mellitus Active 02-05-2017 - [facility] without complication without complication Group (15397) Disorders of lipid Hyperlipidemia Active 02-05-2017 - [facility] metabolism Group (36045) Essential hypertension Hypertensive disorder Active 7 - [facility] (02487) Unclassified Long-term drug therapy Active 02-05-2017 - [facility] (74812) Unclassified Warfarin therapy started Active 02-03-2017 - [facility] (25723) Past or Other Problems Category Problem Name Status Date Location Nonspecific chest pain Chest pain Completed 03-11-2017 - [facility] (58210) Other aftercare Other skilled nursing Completed 02-03-2017 - [facility] (current) drug (94586) therapy Other lower respiratory Dyspnea Completed 03-11-2017 [facility] disease (74986) Other lower respiratory Dyspnea on exertion Completed 03-11-2017 - [facility] disease (01208) Results Result Name Value Range Unit Interpretation Flag Date Location lipid on 2018-02-24 Cholesterol 137 131-200 mg/dL Normal 02-24-2018 [facility] ([place]) (99935) Comment: Result Comment: Cholesterol Reference Interval:Less than 200 Vyuxfvlma085-375 Borderline high frxd254 and above High risk Performed By: #### LIPID, CM P, GFR ####[address] [place], [place] [address] HDL Cholesterol 35 35-90 mg/dL Normal 02-24-2018 [facility] ([place]) (23464) Comment: Result Comment: HDL Referenc e Interval:Less than 40 Low - high risk60 or above Optimal/lowers risk Performed By: #### LIPID, CM P, GFR ####[address] [place], [place] [address] LDL Cholesterol 75 0-130 mg/dL Normal 02-24-2018 [facility] ([place]) (39586) Comment: Result Comment: LDL is a christine culated result and requires a 12-hr fast.LDL Reference Interval:Less than 100 Ptmhblw331-448 Near or above aqjfuum008-331 Borderline high yuus237-570 High zpuk777 and above Very high risk Performed By: #### LIPID, CM P, GFR ####[address] [place], [place] [address] Triglyceride 135 40-150 mg/dL Normal 02-24-2018 [facility] ([place]) (64325) Comment: Result Comment: Triglyceride Reference Interval:Less than 150 Qrwlfm290-767 Borderline high papc504-282 High kzih328 or higher Very high risk Performed By: #### LIPID, CM P, GFR ####[address] [place], [place] [address] cmp on 2018-02-24 Alanine aminotransferase (ALT) 18 10-35 IU/L Normal 02-24-2018 [facility] ([place]) (30274) Comment: Performed By: #### LIPID, CM P, GFR ####[address] [place], [place] [address] Albumin 4.2 3.4-4.8 G/dL Normal 02-24-2018 [facility]) (84548) Comment: Performed By: #### LIPID, CM P, GFR ####[address] [place], [place] [address] Albumin/Globulin Ratio 1.8 1.1-2.5 ratio Normal 018 [facility]) (0000 0) Comment: Performed By: #### LIPID, CM P, GFR ####[address] [place], [place] [address] Alk Phos 77 40-135 IU/L Normal 02-24-2018 [facility]) (47612) Comment: Performed By: #### LIPID, CM P, GFR ####[address] [place], [place] [address] Aspartate aminotransferase 18 10-40 IU/L Normal [facility] (66375) Comment: Performed By: #### LIPID, CM P, GFR ####[address] [place], [place] [address] Bili Total 0.7 0.2-1.0 mg/dL Normal 02-24-2018 [facility]) (15321) Comment: Performed By: #### LIPID, CM P, GFR ####[address] [place], [place] [address] BUN/Creatinine Ratio 15 7-27 ratio Normal 8 [facility]) (15984) Comment: Performed By: #### LIPID, CM P, GFR ####[address] [place], [place] [address] Calcium 9.6 8.4-10.2 mg/dL Normal 02-24-2018 [facility]) (00186) Comment: Performed By: #### LIPID, CM P, GFR ####[address] [place], [place] [address] Chloride 106 98-107 mEq/L Normal 02-24-2018 [facility] ([place]) (81409) Comment: Performed By: #### LIPID, CM P, GFR ####[address] [place], [place] [address] CO2 26 23-31 mEq/L Normal 02-24-2018 [facility] ([place]) (11693) Comment: Performed By: #### LIPID, CM P, GFR ####[address] [place], [place] [address] Creatinine 1.7 0.6-1.2 mg/dL High 02-24-2018 [facility] ([place]) (24844) Comment: Performed By: #### LIPID, CM P, GFR ####[address] [place], [place] [address] Electrolyte Balance 9.0 mEq/L Normal 02-24-2018 [facility] ([place]) (76058) Comment: Performed By: #### LIPID, CM P, GFR ####[address] [place], [place] [address] Globulin 2.4 G/dL Normal 02-24-2018 [facility] ([place]) (33446) Comment: Performed By: #### LIPID, CM P, GFR ####[address] [place], [place] [address] Glucose mass conc 93 83-110 mg/dL Normal 02-24-2018 Replaced by [facility] ([place]) (32451) Comment: Performed By: #### LIPID, CM P, GFR ####[address] [place], [place] [address] Potassium molar conc 4.7 3.5-5.1 mEq/L Normal 8 [facility] ([place] (0000 0) Comment: Performed By: #### LIPID, CM P, GFR ####[address] [place], [place] [address] Protein 6.6 6.0-8.3 G/dL Normal 02-24-2018 [facility] ([place]) (07710) Comment: Performed By: #### LIPID, CM P, GFR ####[address] [place], [place] [address] Sodium 141 136-146 mEq/L Normal 02-24-2018 [facility] ([place]) (17368) Comment: Performed By: #### LIPID, CM P, GFR ####[address] [place], [place] [address] Urea nitrogen 25.3 7.0-18.0 mg/dL High 02-24-2018 [facility] ([place]) (62953) Comment: Performed By: #### LIPID, CM P, GFR ####[address] [place], [place] [address] .gfr on 2018-02-24 eGFR (non-black) 38 ml/min/1.73sqm Normal 02-25-20 18 [facility] ([place]) (38659) Comment: Result Comment: GFR Populati on mean [...] By: #### LIPID, CM P, GFR ####[address] [place], [place] [address] eGFR (non-black) 46 ml/min/1.73sqm Normal 02-25-20 18 [facility] ([place] (18154) Comment: Result Comment: GFR Populati on mean [...] By: #### LIPID, CM P, GFR ####[address] [place], [place] [address] lipid on 2017-09-08 Cholesterol 111 131-200 mg/dL Low 09-08-2017 [facility] ([place]) (90510) Comment: Result Comment: Cholesterol Reference Interval:Less than 200 Rtwetgrww404-462 Borderline high uesv145 and above High risk Performed By: #### LIPID, CM P, GFR ####[address] [place], [place] [address] HDL Cholesterol 32 35-90 mg/dL Low 09-08-2017 [facility] ([place]) (11108) Comment: Result Comment: HDL Referenc e Interval:Less than 40 Low - high risk60 or above Optimal/lowers risk Performed By: #### LIPID, CM P, GFR ####[address] [place], [place] [address] LDL Cholesterol 57 0-130 mg/dL Normal 09-08-2017 [facility] ([place]) (15164) Comment: Result Comment: LDL is a christine culated result and requires a 12-hr fast.LDL Reference Interval:Less than 100 Ndqgtne920-546 Near or above nmqyxgc589-155 Borderline high ihym136-478 High skde914 and above Very high risk Performed By: #### LIPID, CM P, GFR ####[address] [place], [place] [address] Triglyceride 108 40-150 mg/dL Normal 09-08-2017 [facility] ([place]) (48017) Comment: Result Comment: Triglyceride Reference Interval:Less than 150 Ubbkdg508-057 Borderline high mdsi715-923 High jajs308 or higher Very high risk Performed By: #### LIPID, CM P, GFR ####[address] [place], [place] [address] cmp on 2017-09-08 Alanine aminotransferase (ALT) 11 10-35 IU/L Normal 09-08-2017 [facility] ([place] (48678) Comment: Performed By: #### LIPID, CM P, GFR ####[address] [place], [place] [address] Albumin 4.1 3.4-4.8 G/dL Normal 09-08-2017 [facility] hospital) (58842) Comment: Performed By: #### LIPID, CM P, GFR ####[address] [place], [place] [address] Albumin/Globulin Ratio 1.6 1.1-2.5 ratio Normal 017 [facility] ([place] (0000 0) Comment: Performed By: #### LIPID, CM P, GFR ####[address] [place], [place] [address] Alk Phos 87 40-135 IU/L Normal 09-08-2017 [facility] hospital) (10271) Comment: Performed By: #### LIPID, CM P, GFR ####[address] [place], [place] [address] Aspartate aminotransferase 14 10-40 IU/L Normal [facility] [place] (23602) Comment: Performed By: #### LIPID, CM P, GFR ####[address] [place], [place] [address] Bili Total 0.5 0.2-1.0 mg/dL Normal 09-08-2017 [facility]) (06371) Comment: Performed By: #### LIPID, CM P, GFR ####[address] [place], [place] [address] BUN/Creatinine Ratio 13 7-27 ratio Normal 7 [facility] ([place] (08564) Comment: Performed By: #### LIPID, CM P, GFR ####[address] [place], [place] [address] Calcium 9.3 8.4-10.2 mg/dL Normal 09-08-2017 [facility] hospital) (73137) Comment: Performed By: #### LIPID, CM P, GFR ####[address] [place], [place] [address] Chloride 107 98-107 mEq/L Normal 09-08-2017 [facility] ([place]) (95402) Comment: Performed By: #### LIPID, CM P, GFR ####[address] [place], [place] [address] CO2 27 23-31 mEq/L Normal 09-08-2017 [facility] ([place]) (03555) Comment: Performed By: #### LIPID, CM P, GFR ####[address] [place], [place] [address] Creatinine 1.6 0.6-1.2 mg/dL High 09-08-2017 [facility] ([place] (58395) Comment: Performed By: #### LIPID, CM P, GFR ####[address] [place], [place] [address] Electrolyte Balance 7.0 mEq/L Normal 09-08-2017 [facility] ([place] (34919) Comment: Performed By: #### LIPID, CM P, GFR ####[address] [place], [place] [address] Globulin 2.5 G/dL Normal 09-08-2017 [facility] ([place] (56855) Comment: Performed By: #### LIPID, CM P, GFR ####[address] [place], [place] [address] Glucose mass conc 133 83-110 mg/dL High 09-08-2017 Replaced by [facility] ([place]) (56507) Comment: Performed By: #### LIPID, CM P, GFR ####[address] [place], [place] [address] Potassium molar conc 4.5 3.5-5.1 mEq/L Normal 7 [facility] ([place] (0000 0) Comment: Performed By: #### LIPID, CM P, GFR ####[address] [place], [place] [address] Protein 6.6 6.0-8.3 G/dL Normal 09-08-2017 [facility] ([place] (55565) Comment: Performed By: #### LIPID, CM P, GFR ####[address] [place], [place] [address] Sodium 141 136-146 mEq/L Normal 09-08-2017 [facility] ([place] (55012) Comment: Performed By: #### LIPID, CM P, GFR ####[address] [place], [place] [address] Urea nitrogen 21.1 7.0-18.0 mg/dL High 09-08-2017 [facility] ([place] (15056) Comment: Performed By: #### LIPID, CM P, GFR ####[address] [place], [place] [address] .gfr on 2017-09-08 eGFR (non-black) 42 ml/min/1.73sqm Normal 09-08-20 17 [facility] ([place] (63249) Comment: Result Comment: GFR Populati on mean [...] By: #### LIPID, CM P, GFR ####[address] [place], [place] [address] eGFR (non-black) 51 ml/min/1.73sqm Normal 09-08-20 17 [facility] ([place] (33834) Comment: Result Comment: GFR Populati on mean [...] By: #### LIPID, CM P, GFR ####[address] [place], [place] [address] office visit on 04-28-02 Documentation of Done Invalid Interpretation 08-20-2017 - [facility] current medications Code 08-20-2017 Group (69040) (procedure) clinical lists update on 2017-08-07 Left ventricular 53 % Invalid Interpretation 08-07-2017 - [facility] Ejection fraction Code 08-07-2017 [facility] (05026) lipid on 2017-05-07 Cholesterol 133 131-200 mg/dL Normal 05-07-2017 [facility] ([place] (94028) Comment: Result Comment: Cholesterol Reference Interval:Less than 200 Ljaayhwdb934-986 Borderline high ljda710 and above High risk Performed By: #### LIPID, CM P, GFR ####[address] [place], [place] [address] HDL Cholesterol 34 35-90 mg/dL Low 05-07-2017 [facility] ([place] (58697) Comment: Result Comment: HDL Referenc e Interval:Less than 40 Low - high risk60 or above Optimal/lowers risk Performed By: #### LIPID, CM P, GFR ####[address] [place], [place] [address] LDL Cholesterol 71 0-130 mg/dL Normal 05-07-2017 [facility] ([place]) (39454) Comment: Result Comment: LDL is a christine culated result and requires a 12-hr fast.LDL Reference Interval:Less than 100 Javibnh330-063 Near or above uieqpgr561-723 Borderline high rvns606-051 High dsnb028 and above Very high risk Performed By: #### LIPID, CM P, GFR ####[address] [place], [place] [address] Triglyceride 141 40-150 mg/dL Normal 05-07-2017 [facility] ([place]) (08812) Comment: Result Comment: Triglyceride Reference Interval:Less than 150 Kivsjy228-419 Borderline high hyhz180-012 High ydzm897 or higher Very high risk Performed By: #### LIPID, CM P, GFR ####[address] [place], [place] [address] gfr on 2017-05-07 eGFR (non-black) 46 ml/min/1.73sqm Normal 05-07-[address] [place] [address] ([place]) (01788) Comment: Result Comment: GFR Populati on mean [...] By: #### LIPID, CM P, GFR ####[address] [place], [place] [address] eGFR (non-black) 56 ml/min/1.73sqm Normal 05-07-20 17 [facility] ([place] (99056) Comment: Result Comment: GFR Populati on mean [...] #### LIPID, CM P, GFR ####[address] [place], [place] [address] cmp on 2017-05-07 Alanine aminotransferase (ALT) 13 10-35 ZZ Normal 05-07-2017 [facility] ([place] (69724) Comment: Performed By: #### LIPID, CM P, GFR ####[address] [place], [place] [address] Albumin 4.5 3.4-4.8 G/dL Normal 05-07-2017 [facility] ([place]) (61786) Comment: Performed By: #### LIPID, CM P, GFR ####[address] [place], [place] [address] Albumin/Globulin Ratio 1.7 1.1-2.5 ratio Normal 017 [facility] ([place] (0000 0) Comment: Performed By: #### LIPID, CM P, GFR ####[address] [place], [place] [address] Alk Phos 91 40-135 ZZ Normal 05-07-2017 [facility] ([place]) (15627) Comment: Performed By: #### LIPID, CM P, GFR ####[address] [place], [place] [address] Aspartate aminotransferase 14 10-40 ZZ Normal [facility] ([place]) (85148) Comment: Performed By: #### LIPID, CM P, GFR ####[address] [place], [place] [address] Bili Total 0.6 0.2-1.0 mg/dL Normal 05-07-2017 [facility] ([place] (36228) Comment: Performed By: #### LIPID, CM P, GFR ####[address] [place], [place] [address] BUN/Creatinine Ratio 13 7-27 ratio Normal 201 7 [facility] ([place] (81638) Comment: Performed By: #### LIPID, CM P, GFR ####[address] [place], [place] [address] Calcium 9.6 8.4-10.2 mg/dL Normal 05-07-2017 [facility] ([place]) (79756) Comment: Performed By: #### LIPID, CM P, GFR ####[address] [place], [place] [address] Chloride 104 98-107 mEq/L Normal 05-07-2017 [facility] ([place]) (21569) Comment: Performed By: #### LIPID, CM P, GFR ####[address] [place], [place] [address] CO2 26 23-31 mEq/L Normal 05-07-2017 [facility] ([place] (47627) Comment: Performed By: #### LIPID, CM P, GFR ####[address] [place], [place] [address] Creatinine 1.5 0.6-1.2 mg/dL High 05-07-2017 [facility] ([place] (47802) Comment: Performed By: #### LIPID, CM P, GFR ####[address] [place], [place] [address] Electrolyte Balance 10.0 mEq/L Normal 05-07-2017 [facility] ([place] (26600) Comment: Performed By: #### LIPID, CM P, GFR ####[address] [place], [place] [address] Globulin 2.6 G/dL Normal 05-07-2017 [facility] ([place] (49277) Comment: Performed By: #### LIPID, CM P, GFR ####[address] [place], [place] [address] Glucose mass conc 145 83-110 mg/dL High 05-07-2017 Replaced by [facility] ([place]) (13255) Comment: Performed By: #### LIPID, CM P, GFR ####[address] [place], [place] [address] Potassium molar conc 4.8 3.5-5.1 mEq/L Normal 7 [facility] ([place] (0000 0) Comment: Performed By: #### LIPID, CM P, GFR ####[address] [place], [place] [address] Protein 7.1 6.0-8.3 G/dL Normal 05-07-2017 [facility]) (95553) Comment: Performed By: #### LIPID, CM P, GFR ####[address] [place], [place] [address] Sodium 140 136-146 mEq/L Normal 05-07-2017 [facility]) (44833) Comment: Performed By: #### LIPID, CM P, GFR ####[address] [place], [place] [address] Urea nitrogen 19.5 7.0-18.0 mg/dL High 05-07-2017 [facility] ([place]) (82218) Comment: Performed By: #### LIPID, CM P, GFR ####[address] [place], [place] [address] append: cr referral on 2017-05-04 Clinical [id number]^03/11/2017 Invalid 05-04 - [facility] consultation Interpretation 05-04-2017 [facility] eart report (record Code Group artifact) (09055) replaced document: midmark ecg observati ons on 2017-03-11 BUN (urea nitrogen) Sinus Bradycardia Invalid - [place] -Incomplete left Interpretation 03-11-20 17 Heart bundle branch Code Group block. -Poor (47196) R-wave progression -may be secondary to conduction defect consider old anterior infarct. - Nonspecific T-abnormality. ABNORMAL EKG QRS axis 28 deg Invalid 03-11-2017 [facility] Interpretation 03-11-2017 Hear [facility] Code Group (44735) GE use only - for 473 ms Invalid 03-11-2017 - [facility] import when Interpretation Heart terms are not Code Group otherwise specified (17813) P [place] 50 deg Invalid 03-11-2017 - [place] Interpretation 03-11-2017 Hear [facility] Code Group (78392) P wave axis, 50 deg Invalid 03-11-2017 [facility] electrocardiogram Interpretation 017 Heart Code Group (35474) OK Interval 158 ms Invalid 03-11-2017 - [place] Interpretation 03-11-2017 Hear [facility] Code [facility] (86323) OK interval, 158 ms Invalid 03-11-2017 [facility] electrocardiogram Interpretation 017 [facility] Code [facility] (60126) Protein mass conc Sinus Bradycardia Invalid 02-17 - [place] -Incomplete left Interpretation 03-11-20 Heart bundle branch Code Group block. -Poor (00151) R-wave progression -may be secondary to conduction defect consider old anterior infarct. - Nonspecific T-abnormality. ABNORMAL Pulse (Heart Rate) 58 BPM /min Invalid 03-11-2017 - [place] Interpretation 03-11-2017 Hear t Code Group (31263) QRS axis, 28 deg Invalid 03-11-2017 - [facility] electrocardiogram Interpretation 017 [facility] Code [facility] (31594) QRS Duration 116 ms Invalid 03-11-2017 - [facility] Interpretation 03-11-2017 Hear [facility] Code [facility] (54415) QRS duration, 116 ms Invalid 03-11-2017 - [facility] [facility] electrocardiogram Interpretation 017 [facility] Code Group (40445) QT Interval new path ms Invalid 03-11-2017 - [place] [facility] Interpretation 03-11-2017 Hear t Code Group (70340) QT interval, new path ms Invalid 03-11-2017 - [place] electrocardiogram Interpretation 017 [facility] Code [facility] (44140) QTc [place] 473 ms Invalid 03-11-2017 - [place] Interpretation 03-11-2017 Hear t Code Group (82271) T [place] -28 deg Invalid 03-11-2017 - [facility] Interpretation 03-11-2017 Hear t Code Group (35416) T wave axis, -28 deg Invalid 03-11-2017 [facility] electro[facility]ogram Interpretation 017 [facility] Code Group (91489) office visit on 04-22-24 Documentation of Done Invalid Interpretation 03-11-2017 - [facility] current medications Code 03-11-2017 Group (80783) (procedure) Fall risk assessment Yes Invalid Interpretat ion 03-11-2017 - [facility] Code 03-11-2017 Group (44 691) Protein mass conc Done Invalid Interpretation 03-11-2017 - [facility] Code 03-11-2017 Group (44 501) clinical lists update: preload on 2017-02-05 Tobacco smoking Never smoker Invalid Interpretatio n 02-05-2017 - [facility] status NHIS Code 02-05-2017 Group ( 17162) Tobacco use Never smoker Invalid Interpretation - [facility] CPHS Code 02-05-2017 Group (44 791) lab report: prothrombin time w/inr on 2017-02-04 Coagulation tissue 20.0 SECONDS 11.7-14.9 High 02-05-20 17 - [facility] factor induced in 02-04-2017 [facility] (89499) platelet poor plasma coumadin management: warfarin calc on 2017-02-04 Coagulation tissue 20.0 s Invalid 02-04-2017 - [facility] factor induced in Interpretation Code Heart Group platelet poor (77700 ) plasma INR Coag RelTime 1.8 {INR} Invalid 02-04-2017 - [place] (PPP) Interpretation Code 02-04-2017 Heart Group (40148) INR in blood by 1.8 {INR} Invalid 02-04-2017 - [place] coagulation Interpretation Code 02-05-20 17 Heart Group (52680) INR in blood by 2 to 3 Invalid 02-04-2017 - [place] coagulation Interpretation Code 02-05-20 17 Heart Group (63831) INR in blood by Hospital lab Invalid 02-04-2017 - [place] coagulation Interpretation Code 02-05-20 17 [facility] Group (44104) international 2 to 3 Invalid 02-04-2017 - [place] [facility] normalized ratio Interpretation Code Heart Group (INR) range (92565) Vital Signs Vital Sign Description Value / Unit Date Location The following section is limited to 5 en tries per type and includes entries from the following time range: 20170311 - [id number] 2. BMI (Body Mass Index) 24.81 kg/m2 08-20-2017 - 08-20-2017 [facility] (00051) BMI (Body Mass Index) 26.47 kg/m2 03-11-2017 - 03-11-2017 [facility] (37830) BP Diastolic 60 mm[Hg] 08-20-2017 - 08-20-2017 [facility] (06916) BP Diastolic 60 mm[Hg] 03-11-2017 - 03-11-2017 [facility] (89187) BP Systolic 104 mm[Hg] 08-20-2017 - 08-20-2017 [facility] (95263) BP Systolic 120 mm[Hg] 03-11-2017 - 03-11-2017 [facility] (56111) Heart rate 58 /min 03-11-2017 - 03-11-2017 [facility] (68521) Height 176.53 cm 08-20-2017 - 08-20-2017 [facility] (03167) Height 176.53 cm 03-11-2017 - 03-11-2017 [facility] (12718) Pulse (Heart Rate) 68 /min 08-20-2017 - 08-20-2017 [facility] (29380) Pulse (Heart Rate) 64 /min 03-11-2017 - 03-11-2017 [facility] (31713) Respiratory Rate 28 /min 03-11-2017 - 03-11-2017 [facility] (09388) Weight 77.34 kg 08-20-2017 - 08-20-2017 [facility] (78375) Weight 82.51 kg 03-11-2017 - 03-11-2017 [facility] (48684) Encounters Date Type Reason Provider Location 02-24-2018 - Ambulatory YUNG Willem JHOAN Facility:[facility] 03-01-2018 [facility] 09-08-2017 - Ambulatory [facility] Facility:[facility] 09-13-2017 [facility] [place] [facility] 05-07-2017 Ambulatory Type 2 diabetes [facility] Facility :B mellitus without YUNG STAPLES complications Procedures Procedure Name Date Provider Location Follow Up Appt 6 months 08-20-2017 - Jason Lemus MD [facility] 08-20-2017 ([id number]) [facility] 08-20-2017 - Jason Lemus MD [facility] 08-20-2017 ([id number]) Follow Up Appt 6 months 03-11-2017 - [facility] 08-20-2017 ([id number]) MMM 03-11-2017 - [facility] 08-20-2017 ([id number]) INR in Platelet poor 02-03-2017 - [facility] plasma by Coagulation 02-04-2017 ([id number]) assay Coagulation factor 02-03-2017 - [facility] induced.INR assay in 02-04-2017 ([id number]) platelet poor plasma Plan of Treatment Plan Description Date Location Appointment Appointment 03-09-2018 - [facility] 03-09-2018 ([id number]) Follow Up Appt 6 months Follow Up Appt 6 months 08-20-2017 - [facility] 08-20-2017 ([id number]) R R 08-20-2017 - [facility] 08-20-2017 ([id number]) Appointment Appointment 08-20-2017 - [facility] 08-20-2017 ([id number]) Appointment Appointment 08-11-2017 - [facility] 08-11-2017 ([id number]) Appointment Appointment 08-11-2017 - [facility] 08-11-2017 ([id number]) Cardiac Rehab Rehab Cardiac Rehab Rehab 03-11-2017 - [facility], [facility], 17605-04-2017 ([id number]) [place], [place], [id number] EKG (In office) EKG (In office) 03-11-2017 - [facility] 03-11-2017 ([id number]) Follow Up Appt 6 months Follow Up Appt 6 months 03-11-2017 - [facility] 08-20-2017 ([id number]) [facility] 08-20-2017 ([id number]) Cardiac Rehab Rehab no information 03-11-2017 - [facility]61 05-04-2017 ([id number]) [place], [id number] EKG (In office) EKG (In office) 03-11-2017 - [facility] 03-11-2017 ([id number]) Follow Up Appt 6 months Follow Up Appt 6 months 03-11-2017 - [facility] 03-11-2017 ([id number]) MMM MMM 03-11-2017 - [facility] 03-11-2017 ([id number]) *PT/INR - Standing Order *PT/INR - Standing Order 02-03-2017 - [facility] 02-04-2017 ([id number]) *PT/INR - Standing Order *PT/INR - Standing Order 02-03-2017 - [facility] 02-04-2017 ([id number]) Payers Payer Name Policy Number Renetta GILBERT [id number] [employer] ([place] ([id number]) Summary Purpose Family History No Family History [...] BE BASED ON THE PRIMARY CLINICAL RECORDS. [facility] provides no warranty or guarantee of the accuracy or completeness of information in this document. UNRECOGNIZED CONTENT PROVIDED BELOW FOR UNRECOGNIZED SECTION No Status Records Found UNRECOGNIZED CONTENT PROVIDED BELOW FOR UNRECOGNIZED SECTION INFORMATION SOURCE DATE CREATED AUTHOR AUTHOR'S ORGANIZATIO N 04/07/2018 [employer] [place]
--- OUTSIDE RECORDS SUMMARY | 2020-08-05 10:05 | XMS RPT_ITS | CCD ---
:1940 External Reference #:[id number] Author Organization [facility] Care Team Providers Name Role Phone MD [...] Prescriber Location aspirin ASPIRIN EC 81 MG [facility] 02-05-2017 [facility] One tablet by mouth Group (4 4698) daily ASPIRIN [id number] Belle Gonzalez RN atorvastatin LIPITOR 40 MG TABS One 02-05-2017 [facility] tablet by mouth daily Group (73664) every night ATORVASTATIN CALCIUM [id number] Belle Gonzalez RN furosemide LASIX 40 MG TABS One 08-20-2017 [facility] tablet by mouth daily Group (38984) FUROSEMIDE [id number] Zully Reyes RN glimepiride GLIMEPIRIDE 4 MG TABS 02-05-2017 [facility] tablet by mouth Group (4 4691) twice daily GLIMEPIRIDE [id number] Belle Gonzalez RN lisinopril LISINOPRIL 5 MG TABS 03-11-2017 Jason Lemus MD [facility] One tablet by mouth Group (4 4658) daily LISINOPRIL [id number] Jason Lemus MD metoprolol METOPROLOL TARTRATE 50 02-05-2017 [facility] MG TABS One tablet by Group (94569) mouth twice daily METOPROLOL TARTRATE [id number] Belle Gonzalez RN METOPROLOL TARTRATE 25 MG TABS 02-05-2017 Jason Lemus MD [facility] One tablet by mouth twice (96877 ) daily METOPROLOL TARTRATE [id number] Jason Lemus MD warfarin COUMADIN 2.5 MG TABS One 02-05-2017 - 03-11-2017 [facility] tablet by mouth every night (99510) and as directed WARFARIN SODIUM [id number] Jason Lemus MD Problems Active Problems Category Problem Name Status Date Location Acute myocardial Non-ST elevation Active 02-05-2017 - [facility] infarction (NSTEMI) myocardial Group (4 4691) infarction Cardiac dysrhythmias Atrial fibrillation Active 02-03-2017 - [facility] (10764) 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; 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 Coronary atherosclerosis 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 - [facility] and other heart disease disease of [place] Group (67900) coronary artery without angina pectoris Diabetes mellitus Type 2 diabetes mellitus Active 02-05-2017 - [facility] without complication without complication Group (69859) Disorders of lipid Hyperlipidemia Active 02-05-2017 - [facility] metabolism Group (33397) Essential hypertension Hypertensive disorder Active 7 - [facility] (28401) Unclassified Long-term drug therapy Active 02-05-2017 - [facility] (90013) Unclassified Warfarin therapy started Active 02-03-2017 - [facility] (14663) Past or Other Problems Category Problem Name Status Date Location Nonspecific chest pain Chest pain Completed 03-11-2017 - [facility] (18140) Other aftercare Other usp Completed 02-03-2017 - [facility] (current) drug (11527) therapy Other lower respiratory Dyspnea Completed 03-11-2017 - [facility] disease (05767) Other lower respiratory Dyspnea on exertion Completed 03-11-2017 - [facility] disease (85989) Results Result Name Value Range Unit Interpretation Flag Date Location lipid on 2018-02-24 Cholesterol 137 131-200 mg/dL Normal 02-24-2018 [facility] ([place]) (02070) Comment: Result Comment: Cholesterol Reference Interval:Less than 200 Rqpccsars117-808 Borderline high tvqd563 and above High risk Performed By: #### LIPID, CM P, GFR ####[address] [place], [place] [address] HDL Cholesterol 35 35-90 mg/dL Normal 02-24-2018 [facility] ([place]) (17151) Comment: Result Comment: HDL Referenc e Interval:Less than 40 Low - high risk60 or above Optimal/lowers risk Performed By: #### LIPID, CM P, GFR ####[address] [place], [place] [address] LDL Cholesterol 75 0-130 mg/dL Normal 02-24-2018 [facility] ([place]) (73384) Comment: Result Comment: LDL is a christine culated result and requires a 12-hr fast.LDL Reference Interval:Less than 100 Bwkhcny162-850 Near or above uvlbyju891-027 Borderline high xwat367-273 High ljuj836 and above Very high risk Performed By: #### LIPID, CM P, GFR ####[address] [place], [place] [address] Triglyceride 135 40-150 mg/dL Normal 02-24-2018 [facility] ([place]) (74694) Comment: Result Comment: Triglyceride Reference Interval:Less than 150 Ucudmo519-872 Borderline high iehx583-296 High ctfe471 or higher Very high risk Performed By: #### LIPID, CM P, GFR ####[address] [place], [place] [address] cmp on 2018-02-24 Alanine aminotransferase (ALT) 18 10-35 IU/L Normal 02-24-2018 [facility] ([place]) (41751) Comment: Performed By: #### LIPID, CM P, GFR ####[address] [place], [place] [address] Albumin 4.2 3.4-4.8 G/dL Normal 02-24-2018 [facility]) (64765) Comment: Performed By: #### LIPID, CM P, GFR ####[address] [place], [place] [address] Albumin/Globulin Ratio 1.8 1.1-2.5 ratio Normal 018 [facility]) (0000 0) Comment: Performed By: #### LIPID, CM P, GFR ####[address] [place], [place] [address] Alk Phos 77 40-135 IU/L Normal 02-24-2018 [facility]) (30102) Comment: Performed By: #### LIPID, CM P, GFR ####[address] [place], [place] [address] Aspartate aminotransferase 18 10-40 IU/L Normal [facility] (86814) Comment: Performed By: #### LIPID, CM P, GFR ####[address] [place], [place] [address] Bili Total 0.7 0.2-1.0 mg/dL Normal 02-24-2018 [facility]) (68581) Comment: Performed By: #### LIPID, CM P, GFR ####[address] [place], [place] [address] BUN/Creatinine Ratio 15 7-27 ratio Normal 8 [facility]) (08548) Comment: Performed By: #### LIPID, CM P, GFR ####[address] [place], [place] [address] Calcium 9.6 8.4-10.2 mg/dL Normal 02-24-2018 [facility]) (25341) Comment: Performed By: #### LIPID, CM P, GFR ####[address] [place], [place] [address] Chloride 106 98-107 mEq/L Normal 02-24-2018 [facility] ([place]) (44716) Comment: Performed By: #### LIPID, CM P, GFR ####[address] [place], [place] [address] CO2 26 23-31 mEq/L Normal 02-24-2018 [facility] ([place]) (41608) Comment: Performed By: #### LIPID, CM P, GFR ####[address] [place], [place] [address] Creatinine 1.7 0.6-1.2 mg/dL High 02-24-2018 [facility] ([place]) (02301) Comment: Performed By: #### LIPID, CM P, GFR ####[address] [place], [place] [address] Electrolyte Balance 9.0 mEq/L Normal 02-24-2018 [facility] ([place]) (40507) Comment: Performed By: #### LIPID, CM P, GFR ####[address] [place], [place] [address] Globulin 2.4 G/dL Normal 02-24-2018 [facility] ([place]) (27833) Comment: Performed By: #### LIPID, CM P, GFR ####[address] [place], [place] [address] Glucose mass conc 93 83-110 mg/dL Normal 02-24-2018 [facility] ([place]) (75619) Comment: Performed By: #### LIPID, CM P, GFR ####[address] [place], [place] [address] Potassium molar conc 4.7 3.5-5.1 mEq/L Normal 8 [facility] ([place]) (0000 0) Comment: Performed By: #### LIPID, CM P, GFR ####[address] [place], [place] [address] Protein 6.6 6.0-8.3 G/dL Normal 02-24-2018 [facility] ([place]) (00741) Comment: Performed By: #### LIPID, CM P, GFR ####[address] [place], [place] [address] Sodium 141 136-146 mEq/L Normal 02-24-2018 [facility] ([place]) (87535) Comment: Performed By: #### LIPID, CM P, GFR ####[address] [place], [place] [address] Urea nitrogen 25.3 7.0-18.0 mg/dL High 02-24-2018 [facility] ([place]) (41461) Comment: Performed By: #### LIPID, CM P, GFR ####[address] [place], [place] [address] .gfr on 2018-02-24 eGFR (non-black) 38 ml/min/1.73sqm Normal 02-25-20 18 [facility] ([place]) (66044) Comment: Result Comment: GFR Populati on mean [...] By: #### LIPID, CM P, GFR ####[address] [place], [place] [address] eGFR (non-black) 46 ml/min/1.73sqm Normal 02-25-20 18 [facility] ([place]) (89221) Comment: Result Comment: GFR Populati on mean [...] By: #### LIPID, CM P, GFR ####[address] [place], [place] [address] lipid on 2017-09-08 Cholesterol 111 131-200 mg/dL Low 09-08-2017 [facility] ([place]) (11341) Comment: Result Comment: Cholesterol Reference Interval:Less than 200 Kwzbvsdsy239-144 Borderline high ushj184 and above High risk Performed By: #### LIPID, CM P, GFR ####[address] [place], [place] [address] HDL Cholesterol 32 35-90 mg/dL Low 09-08-2017 [facility] ([place]) (97673) Comment: Result Comment: HDL Referenc e Interval:Less than 40 Low - high risk60 or above Optimal/lowers risk Performed By: #### LIPID, CM P, GFR ####[address] [place], [place] [address] LDL Cholesterol 57 0-130 mg/dL Normal 09-08-2017 [facility] ([place]) (72998) Comment: Result Comment: LDL is a christine culated result and requires a 12-hr fast.LDL Reference Interval:Less than 100 Ksrbaic348-084 Near or above -180 Borderline high dwmj704-471 High jqot501 and above Very high risk Performed By: #### LIPID, CM P, GFR ####[address] [place], [place] [address] Triglyceride 108 40-150 mg/dL Normal 09-08-2017 [facility] ([place]) (59774) Comment: Result Comment: Triglyceride Reference Interval:Less than 150 Ygeiza833-575 Borderline high hbmk093-162 High awqq563 or higher Very high risk Performed By: #### LIPID, CM P, GFR ####[address] [place], [place] [address] cmp on 2017-09-08 Alanine aminotransferase (ALT) 11 10-35 IU/L Normal 09-08-2017 [facility] ([place]) (79533) Comment: Performed By: #### LIPID, CM P, GFR ####[address] [place], [place] [address] Albumin 4.1 3.4-4.8 G/dL Normal 09-08-2017 [facility]) (41201) Comment: Performed By: #### LIPID, CM P, GFR ####[address] [place], [place] [address] Albumin/Globulin Ratio 1.6 1.1-2.5 ratio Normal 017 [facility] ([place]) (0000 0) Comment: Performed By: #### LIPID, CM P, GFR ####[address] [place], [place] [address] Alk Phos 87 40-135 IU/L Normal 09-08-2017 [facility]) (88043) Comment: Performed By: #### LIPID, CM P, GFR ####[address] [place], [place] [address] Aspartate aminotransferase 14 10-40 IU/L Normal [facility] (97063) Comment: Performed By: #### LIPID, CM P, GFR ####[address] [place], [place] [address] Bili Total 0.5 0.2-1.0 mg/dL Normal 09-08-2017 [facility]) (83802) Comment: Performed By: #### LIPID, CM P, GFR ####[address] [place], [place] [address] BUN/Creatinine Ratio 13 7-27 ratio Normal 7 [facility] ([place]) (73296) Comment: Performed By: #### LIPID, CM P, GFR ####[address] [place], [place] [address] Calcium 9.3 8.4-10.2 mg/dL Normal 09-08-2017 [facility]) (01258) Comment: Performed By: #### LIPID, CM P, GFR ####[address] [place], [place] [address] Chloride 107 98-107 mEq/L Normal 09-08-2017 [facility] ([place]) (83962) Comment: Performed By: #### LIPID, CM P, GFR ####[address] [place], [place] [address] CO2 27 23-31 mEq/L Normal 09-08-2017 [facility] ([place]) ([id number]) Comment: Performed By: #### LIPID, CM P, GFR ####[address] [place], [place] [address] Creatinine 1.6 0.6-1.2 mg/dL High 09-08-2017 [facility] ([place]) (42942) Comment: Performed By: #### LIPID, CM P, GFR ####[address] [place], [place] [address] Electrolyte Balance 7.0 mEq/L Normal 09-08-2017 [facility] ([place]) (69450) Comment: Performed By: #### LIPID, CM P, GFR ####[address] [place], [place] [address] Globulin 2.5 G/dL Normal 09-08-2017 [facility] ([place]) (80727) Comment: Performed By: #### LIPID, CM P, GFR ####[address] [place], [place] [address] Glucose mass conc 133 83-110 mg/dL High 09-08-2017 [facility] ([place]) (70046) Comment: Performed By: #### LIPID, CM P, GFR ####[address] [place], [place] [address] Potassium molar conc 4.5 3.5-5.1 mEq/L Normal 7 [facility] ([place]) (0000 0) Comment: Performed By: #### LIPID, CM P, GFR ####[address] [place], [place] [address] Protein 6.6 6.0-8.3 G/dL Normal 09-08-2017 [facility] ([place]) (89382) Comment: Performed By: #### LIPID, CM P, GFR ####[address] [place], [place] [address] Sodium 141 136-146 mEq/L Normal 09-08-2017 [facility] ([place]) (12509) Comment: Performed By: #### LIPID, CM P, GFR ####[address] [place], [place] [address] Urea nitrogen 21.1 7.0-18.0 mg/dL High 09-08-2017 [facility] ([place]) (96858) Comment: Performed By: #### LIPID, CM P, GFR ####[address] [place], [place] [address] .gfr on 2017-09-08 eGFR (non-black) 42 ml/min/1.73sqm Normal 09-08-20 17 [facility] ([place]) (73324) Comment: Result Comment: GFR Populati on mean [...] By: #### LIPID, CM P, GFR ####[address] [place], [place] [address] eGFR (non-black) 51 ml/min/1.73sqm Normal 09-08-20 17 [facility] ([place]) (43283) Comment: Result Comment: GFR Populati on mean [...] By: #### LIPID, CM P, GFR ####[address] [place], [place] [address] office visit on 04-28-02 Documentation of Done Invalid Interpretation 08-20-2017 - [facility] current medications Code 08-20-2017 Group (14263) (procedure) clinical lists update on 2017-08-07 Left ventricular 53 % Invalid Interpretation 08-07-2017 - [facility] Ejection fraction Code 08-07-2017 [facility] (49175) lipid on 2017-05-07 Cholesterol 133 131-200 mg/dL Normal 05-07-2017 [facility] ([place]) (49739) Comment: Result Comment: Cholesterol Reference Interval:Less than 200 Jvthmxvqr762-315 Borderline high ctjk764 and above High risk Performed By: #### LIPID, CM P, GFR ####[address] [place], [place] [address] HDL Cholesterol 34 35-90 mg/dL Low 05-07-2017 [facility] ([place]) (32521) Comment: Result Comment: HDL Referenc e Interval:Less than 40 Low - high risk60 or above Optimal/lowers risk Performed By: #### LIPID, CM P, GFR ####[address] [place], [place] [address] LDL Cholesterol 71 0-130 mg/dL Normal 05-07-2017 [facility] ([place]) (12108) Comment: Result Comment: LDL is a christine culated result and requires a 12-hr fast.LDL Reference Interval:Less than 100 Eamksah705-029 Near or above igmptoc404-029 Borderline high fmov435-012 High arjg051 and above Very high risk Performed By: #### LIPID, CM P, GFR ####[address] [place], [place] [address] Triglyceride 141 40-150 mg/dL Normal 05-07-2017 [facility] ([place]) (59068) Comment: Result Comment: Triglyceride Reference Interval:Less than 150 Odhvbb874-258 Borderline high eccs461-676 High lpba434 or higher Very high risk Performed By: #### LIPID, CM P, GFR ####[address] [place], [place] [address] gfr on 2017-05-07 eGFR (non-black) 46 ml/min/1.73sqm Normal 05-07-[address] [place] [address] ([place]) (79598) Comment: Result Comment: GFR Populati on mean [...] By: #### LIPID, CM P, GFR ####[address] [place], [place] [address] eGFR (non-black) 56 ml/min/1.73sqm Normal 05-07-20 17 [facility] ([place]) (82014) Comment: Result Comment: GFR Populati on mean [...] #### LIPID, CM P, GFR ####[address] [place], [place] [address] cmp on 2017-05-07 Alanine aminotransferase (ALT) 13 10-35 ZZ Normal 05-07-2017 [facility] ([place]) (70174) Comment: Performed By: #### LIPID, CM P, GFR ####[address] [place], [place] [address] Albumin 4.5 3.4-4.8 G/dL Normal 05-07-2017 [facility] ([place]) (24222) Comment: Performed By: #### LIPID, CM P, GFR ####[address] [place], [place] [address] Albumin/Globulin Ratio 1.7 1.1-2.5 ratio Normal 017 [facility] ([place]) (0000 0) Comment: Performed By: #### LIPID, CM P, GFR ####[address] [place], [place] [address] Alk Phos 91 40-135 ZZ Normal 05-07-2017 [facility] ([place]) (80644) Comment: Performed By: #### LIPID, CM P, GFR ####[address] [place], [place] [address] Aspartate aminotransferase 14 10-40 ZZ Normal [facility] ([place]) (11673) Comment: Performed By: #### LIPID, CM P, GFR ####[address] [place], [place] [address] Bili Total 0.6 0.2-1.0 mg/dL Normal 05-07-2017 [facility] ([place]) (97133) Comment: Performed By: #### LIPID, CM P, GFR ####[address] [place], [place] [address] BUN/Creatinine Ratio 13 7-27 ratio Normal 201 7 [facility] ([place]) (68282) Comment: Performed By: #### LIPID, CM P, GFR ####[address] [place], [place] [address] Calcium 9.6 8.4-10.2 mg/dL Normal 05-07-2017 [facility] ([place]) (88102) Comment: Performed By: #### LIPID, CM P, GFR ####[address] [place], [place] [address] Chloride 104 98-107 mEq/L Normal 05-07-2017 [facility] ([place]) (47337) Comment: Performed By: #### LIPID, CM P, GFR ####[address] [place], [place] [address] CO2 26 23-31 mEq/L Normal 05-07-2017 [facility] ([place]) (74246) Comment: Performed By: #### LIPID, CM P, GFR ####[address] [place], [place] [address] Creatinine 1.5 0.6-1.2 mg/dL High 05-07-2017 [facility] ([place]) (37940) Comment: Performed By: #### LIPID, CM P, GFR ####[address] [place], [place] [address] Electrolyte Balance 10.0 mEq/L Normal 05-07-2017 [facility] ([place]) (10469) Comment: Performed By: #### LIPID, CM P, GFR ####[address] [place], [place] [address] Globulin 2.6 G/dL Normal 05-07-2017 [facility] ([place]) (87191) Comment: Performed By: #### LIPID, CM P, GFR ####[address] [place], [place] [address] Glucose mass conc 145 83-110 mg/dL High 05-07-2017 [facility] ([place]) (31164) Comment: Performed By: #### LIPID, CM P, GFR ####[address] [place], [place] [address] Potassium molar conc 4.8 3.5-5.1 mEq/L Normal 7 [facility] ([place]) (0000 0) Comment: Performed By: #### LIPID, CM P, GFR ####[address] [place], [place] [address] Protein 7.1 6.0-8.3 G/dL Normal 05-07-2017 [facility]) (54807) Comment: Performed By: #### LIPID, CM P, GFR ####[address] [place], [place] [address] Sodium 140 136-146 mEq/L Normal 05-07-2017 [facility]) (56040) Comment: Performed By: #### LIPID, CM P, GFR ####[address] [place], [place] [address] Urea nitrogen 19.5 7.0-18.0 mg/dL High 05-07-2017 [facility] ([place]) (84164) Comment: Performed By: #### LIPID, CM P, GFR ####[address] [place], [place] [address] append: cr referral on 2017-05-04 Clinical [id number]^03/11/2017 Invalid 05-04 - [facility] consultation Interpretation 05-04-2017 [facility] eart report (record Code Group artifact) ([id number]) replaced document: midmark ecg observati ons on 2017-03-11 BUN (urea nitrogen) Sinus Bradycardia Invalid - [facility] -Incomplete left Interpretation 03-11-20 17 Heart bundle branch Code Group block. -Poor (46525) R-wave progression -may be secondary to conduction defect consider old anterior infarct. - Nonspecific T-abnormality. ABNORMAL EKG QRS axis 28 deg Invalid 03-11-2017 [facility] Interpretation 03-11-2017 Hear [facility] Code Group (59664) GE use only - for 473 ms Invalid 03-11-2017 - [facility] import when Interpretation Heart terms are not Code Group otherwise specified (23543) P [place] 50 deg Invalid 03-11-2017 - [facility] Interpretation 03-11-2017 Hear [facility] (84599) P wave axis, 50 deg Invalid 03-11-2017 - [facility] electrocardiogram Interpretation 017 [facility] Code Group (49130) ID Interval 158 ms Invalid 03-11-2017 - [place] Interpretation 03-11-2017 [facility] (79937) ID interval, 158 ms Invalid 03-11-2017 [facility] electrocardiogram Interpretation 017 [facility] (99004) Protein mass conc Sinus Bradycardia Invalid 02-17 - [facility] -Incomplete left Interpretation 03-11-20 Heart bundle branch Code Group block. -Poor (77697) R-wave progression -may be secondary to conduction defect consider old anterior infarct. - Nonspecific T-abnormality. ABNORMAL Pulse (Heart Rate) 58 BPM /min Invalid 03-11-2017 - [facility] Interpretation 03-11-2017 Hear t Code Group (84522) QRS axis, 28 deg Invalid 03-11-2017 - [facility] electro[facility]ogram Interpretation 017 [facility] Code [facility] (64886) QRS Duration 116 ms Invalid 03-11-2017 - [facility] [facility] Interpretation 03-11-2017 Hear [facility] Code [facility] (75745) QRS duration, 116 ms Invalid 03-11-2017 - [place] [facility] electrocardiogram Interpretation 017 [facility] Code [facility] (39237) QT Interval new path ms Invalid 03-11-2017 - [place] [facility] Interpretation 03-11-2017 Hear t Code [facility] (36130) QT interval, new path ms Invalid 03-11-2017 - [place] electrocardiogram Interpretation 017 [facility] Code [facility] (32063) QTc [place] 473 ms Invalid 03-11-2017 - [place] Interpretation 03-11-2017 Hear t Code Group (87055) T [place] -28 deg Invalid 03-11-2017 - [facility] Interpretation 03-11-2017 Hear t Code Group (80439) T wave axis, -28 deg Invalid 03-11-2017 [facility] electro[facility]ogram Interpretation 017 [facility] Code Group (57985) office visit on 04-22-24 Documentation of Done Invalid Interpretation 03-11-2017 - [facility] current medications Code 03-11-2017 Group (82624) (procedure) Fall risk assessment Yes Invalid Interpretat ion 03-11-2017 - [facility] Code 03-11-2017 Group (44 691) Protein mass conc Done Invalid Interpretation 03-11-2017 - [facility] Code 03-11-2017 Group (44 451) clinical lists update: preload on 2017-02-05 Tobacco smoking Never smoker Invalid Interpretatio n 02-05-2017 - [facility] status NHIS Code 02-05-2017 Group ( 26018) Tobacco use Never smoker Invalid Interpretation - [facility] CPHS Code 02-05-2017 Group (44 581) lab report: prothrombin time w/inr on 2017-02-04 Coagulation tissue 20.0 SECONDS 11.7-14.9 High 02-05-20 17 - [facility] factor induced in 02-04-2017 [facility] (74428) platelet poor plasma coumadin management: warfarin calc on 2017-02-04 Coagulation tissue 20.0 s Invalid 02-04-2017 - [facility] factor induced in Interpretation Code Heart Group platelet poor (55566 ) plasma INR Coag RelTime 1.8 {INR} Invalid 02-04-2017 - [facility] (PPP) Interpretation Code 02-04-2017 Heart Group (54228) INR in blood by 1.8 {INR} Invalid 02-04-2017 - [place] coagulation Interpretation Code 02-05-20 17 Heart Group (65908) INR in blood by 2 to 3 Invalid 02-04-2017 - [place] coagulation Interpretation Code 02-05-20 17 [facility] Group (59224) INR in blood by Hospital lab Invalid 02-04-2017 - [place] coagulation Interpretation Code 02-05-20 17 [facility] Group (46264) international 2 to 3 Invalid 02-04-2017 - [place] [facility] normalized ratio Interpretation Code Heart Group (INR) range (40324) Vital Signs Vital Sign Description Value / Unit Date Location The following section is limited to 5 en tries per type and includes entries from the following time range: 20170311 - [id number] 2. BMI (Body Mass Index) 24.81 kg/m2 08-20-2017 - 08-20-2017 [facility] (02691) BMI (Body Mass Index) 26.47 kg/m2 03-11-2017 - 03-11-2017 [facility] (62409) BP Diastolic 60 mm[Hg] 08-20-2017 - 08-20-2017 [facility] (01034) BP Diastolic 60 mm[Hg] 03-11-2017 - 03-11-2017 [facility] (26135) BP Systolic 104 mm[Hg] 08-20-2017 - 08-20-2017 [facility] (18425) BP Systolic 120 mm[Hg] 03-11-2017 - 03-11-2017 [facility] (53997) Heart rate 58 /min 03-11-2017 - 03-11-2017 [facility] (01845) Height 176.53 cm 08-20-2017 - 08-20-2017 [facility] ([id number]) Height 176.53 cm 03-11-2017 - 03-11-2017 [facility] ([id number]) Pulse (Heart Rate) 68 /min 08-20-2017 - 08-20-2017 [facility] ([id number]) Pulse (Heart Rate) 64 /min 03-11-2017 - 03-11-2017 [facility] ([id number]) Respiratory Rate 28 /min 03-11-2017 - 03-11-2017 [facility] ([id number]) Weight 77.34 kg 08-20-2017 - 08-20-2017 [facility] ([id number]) Weight 82.51 kg 03-11-2017 - 03-11-2017 [facility] ([id number]) Encounters Date Type Reason Provider Location 02-24-2018 - Ambulatory YUNG Willem JHOAN Facility:[facility] 03-01-2018 YUNG STAPLES RICHL[facility] 09-08-2017 - Ambulatory YUNG Willem STAPLES Facility:[facility] 09-13-2017 YUNG Willem STAPLES [facility] 05-07-2017 Ambulatory Type 2 diabetes [facility] Facility :B mellitus without UYNG STAPLES complications Procedures Procedure Name Date Provider Location Follow Up Appt 6 months 08-20-2017 - Jason Lemus MD [facility] 08-20-2017 ([id number]) [facility] 08-20-2017 - Jason Lemus MD [facility] 08-20-2017 ([id number]) Follow Up Appt 6 months 03-11-2017 - [facility] 08-20-2017 ([id number]) MMM 03-11-2017 - MD [facility] 08-20-2017 ([id number]) INR in Platelet poor 02-03-2017 - [facility] plasma by Coagulation 02-04-2017 ([id number]) assay Coagulation factor 02-03-2017 - [facility] induced.INR assay in 02-04-2017 ([id number]) platelet poor plasma Plan of Treatment Plan Description Date Location Appointment Appointment 03-09-2018 - [facility] 03-09-2018 ([id number]) Follow Up Appt 6 months Follow Up Appt 6 months 08-20-2017 - [facility] 08-20-2017 ([id number]) R R 08-20-2017 - [facility] 08-20-2017 ([id number]) Appointment Appointment 08-20-2017 - [facility] 08-20-2017 ([id number]) Appointment Appointment 08-11-2017 - [facility] 08-11-2017 ([id number]) Appointment Appointment 08-11-2017 - [facility] 08-11-2017 ([id number]) Cardiac Rehab Rehab Cardiac Re[facility] Rehab 03-11-2017 - [facility], [facility], 17605-04-2017 ([id number]) [place], [place], [id number] EKG (In office) EKG (In office) 03-11-2017 - [facility] 03-11-2017 ([id number]) Follow Up Appt 6 months Follow Up Appt 6 months 03-11-2017 - [facility] 08-20-2017 ([id number]) [facility] 03-11-2017 - [facility] 08-20-2017 ([id number]) Cardiac Rehab Rehab no information 03-11-2017 - [facility], 1761 05-04-2017 ([id number]) [place], [id number] EKG (In office) EKG (In office) 03-11-2017 - [facility] 03-11-2017 ([id number]) Follow Up Appt 6 months Follow Up Appt 6 months 03-11-2017 - [facility] 03-11-2017 ([id number]) MMM MMM 03-11-2017 - [facility] 03-11-2017 ([id number]) *PT/INR - Standing Order *PT/INR - Standing Order 02-03-2017 - [facility] 02-04-2017 ([id number]) *PT/INR - Standing Order *PT/INR - Standing Order 02-03-2017 - [facility] 02-04-2017 ([id number]) Payers Payer Name Policy Number Renetta GILBERT [id number] [employer]ay [employer] ([place] ([id number]) Summary Purpose Family History No Family History [...] BE BASED ON THE PRIMARY CLINICAL RECORDS. [facility] provides no warranty or guarantee of the accuracy or completeness of information in this document. UNRECOGNIZED CONTENT PROVIDED BELOW FOR UNRECOGNIZED SECTION No Status Records Found UNRECOGNIZED CONTENT PROVIDED BELOW FOR UNRECOGNIZED SECTION INFORMATION SOURCE DATE CREATED AUTHOR AUTHOR'S ORGANIZATIO N 04/07/2018 [employer] [facility] [employer] [place]
== END 2020-04-02 18:51 | disposition home or self-care (01) | DRG 308 ==
LOC: ED 22:14 → PCU 03-27 00:57
PROVIDERS: Internal Medicine; Internal Medicine Cardiovascular Disease; Nurse Practitioner Family; Physician Assistant; Admitting Provider Family Medicine; Emergency Provider Emergency Medicine; PCP Family Medicine; Visit Provider Internal Medicine
DX: I48.0 Paroxysmal atrial fibrillation (principal); I50.43 Acute on chronic combined systolic (congestive) and diastolic (congestive) heart failure; I13.0 Hypertensive heart and chronic kidney disease with heart failure and stage 1 through stage 4 chronic kidney disease, or unspecified chronic kidney disease; N17.9 Acute kidney failure, unspecified; N18.3 Chronic kidney disease, stage 3 (moderate); E11.22 Type 2 diabetes mellitus with diabetic chronic kidney disease; T46.2X5A Adverse effect of other antidysrhythmic drugs, initial encounter; I25.10 Atherosclerotic heart disease of native coronary artery without angina pectoris; I25.5 Ischemic cardiomyopathy; I27.21 Secondary pulmonary arterial hypertension; E78.5 Hyperlipidemia, unspecified; F32.9 Major depressive disorder, single episode, unspecified; K82.8 Other specified diseases of gallbladder; I25.2 Old myocardial infarction; Z95.1 Presence of aortocoronary bypass graft; Z86.73 Personal history of transient ischemic attack (TIA), and cerebral infarction without residual deficits
CPT/HCPCS: 36415; 71045; 71046; 76705; 76770; 78226; 78452; 80048; 80053; 80061; 80074; 82306; 82570; 82962; 83036; 83735; 83880; 84300; 84484; 84540; 85025; 92526; 92610; 92960; 93005; 93017; 94640; 97110; 97116; 97162; 97166; 97530; 99285; A9500; A9537; J7030; J7040; A4216; J1940; J2405; J2785; J7799

== ENCOUNTER → 2020-04-09 15:35 | Outpatient (CLI) | payer MEDICARE, SELFPAY ==
[2020-03-30 01:33] VITALS: BMI 24.5
[2020-04-09 18:10] LABS: Hematocrit 49.3 % (40-54); Hemoglobin 15.8 g/dL (13.0-16.5)
[2020-04-09 18:39] LABS: ALB/GLOB Ratio 0.9 RATIO (0.9-2.4); AST(SGOT) 28 U/L (15-37); Alanine Aminotransfer ALT/SGPT 94 U/L (16-61); Albumin, Serum 3.3 g/dL (3.2-5.0); Alkaline Phosphatase 125 U/L (45-117); Anion Gap 10 (5-15); BUN 50 mg/dL (7-18); Calcium,Total 9.3 mg/dL (8.5-10.1); Chloride 96 mmol/L (98-107); Creatinine, Serum 2.38 mg/dL (0.70-1.30); EST Glomerular Filtration Rate 28 mL/min (>60); Est Glom Filt Rate - Afr Amer 34 mL/min (>60); Globulin 3.8 g/dL (2.2-4.2); Glucose 162 mg/dL (74-106); Potassium 3.6 mmol/L (3.5-5.1); Protein, Total 7.1 g/dL (6.4-8.2); Sodium Level 138 mmol/L (136-145)
== END ==
PROVIDERS: PCP Family Medicine; Referring Provider Physician Assistant Medical; Visit Provider Physician Assistant Medical
DX: I50.43 Acute on chronic combined systolic (congestive) and diastolic (congestive) heart failure (principal)
CPT/HCPCS: 36415; 80053; 85014; 85018

== ENCOUNTER → 2020-06-12 11:19 | Outpatient (CLI) | payer MEDICARE, SELFPAY ==
[2020-05-01 13:34] VITALS: BMI 23.0
[2020-06-12 15:33] LABS: Anion Gap 5 (5-15); BUN 23 mg/dL (7-18); BUN/Creat Ratio 13.2 RATIO (10-20); Calcium,Total 9.2 mg/dL (8.5-10.1); Chloride 103 mmol/L (98-107); Creatinine, Serum 1.74 mg/dL (0.70-1.30); EST Glomerular Filtration Rate 40 mL/min (>60); Est Glom Filt Rate - Afr Amer 49 mL/min (>60); Glucose 149 mg/dL (74-106); Potassium 3.9 mmol/L (3.5-5.1); Sodium Level 138 mmol/L (136-145)
== END ==
PROVIDERS: PCP Family Medicine; Referring Provider Family Medicine; Visit Provider Nurse Practitioner Family
DX: I25.5 Ischemic cardiomyopathy (principal); I25.119 Atherosclerotic heart disease of native coronary artery with unspecified angina pectoris; I48.0 Paroxysmal atrial fibrillation
CPT/HCPCS: 36415; 80048

== ENCOUNTER 2020-07-12 09:48 | Inpatient (IN) | payer MEDICARE, SELFPAY ==
[2020-05-01 13:34] VITALS: BMI 23.0
[2020-07-12] VITALS (25 sets, daily range): BP systolic 85–140; BP diastolic 57–93; PULSE 65–126; RESP 16–36; TEMP 36–37.2; O2SAT 94–100; BMI 23.4; BMI 23.3
--- NOTE | 2020-07-12 10:08 | EKG12_ITS ---
Test Reason : CHEST DISCOMFORT Blood Pressure : / mmHG Vent. Rate : 084 BPM Atrial Rate : 104 BPM P-R Int : 000 ms QRS Dur : 144 ms QT Int : 444 ms P-R-T Axes : 000 009 193 degrees QTc Int : 524 ms Atrial fibrillation Left bundle branch block Abnormal ECG When compared with ECG of 12-JUL-2020 12:57, MANUAL COMPARISON REQUIRED, DATA IS UNCONFIRMED Confirmed by DOMINIQUE MONTOYA, STARLA ([id number]), staff editor JR SVEERINO ([id number]) on 07/17/2020 12:56:16 PM Referred By: DALIA Confirmed By:STARLA FOX MD
--- NOTE | 2020-07-12 10:12 | ED.DCSUM_ITS ---
- ER Visit Summary Date of Service: 07/12/20 Chief Complaint: Palpitations History of Present Illness: The patient is a 80 M who presents with palpitations that began yesterday. Patient states he feels fluttering in his chest. Patient states he does have history of atrial fibrillation. Patient denies any chest pain. Patient does admit to some shortness of breath. Patient also admits to 10 pound weight gain over the past week. Patient admits to some swelling of his ankles and legs. Patient denies any cough. Patient denies any fevers or chills. Patient denies any nausea or vomiting. Patient denies any diaphoresis. Physical Examination: Vital signs are stable except for a tachycardia of 120. Patient is afebrile. Patient is in no acute distress. Oral mucosa is pink and moist. Neck is supple. Trachea is midline. There is no JVD. Heart was irregularly irregular and tachycardic. Lungs showed few rales in the bases bilaterally. There is good respiratory effort noted. Abdomen is soft. Bowel sounds are normal. There is no tenderness. Cranial nerves II through XII are intact. There are no focal motor or sensory deficits noted. Extremities are intact. There is 1+ edema of the ankles bilaterally. There is no calf tenderness. Test Results: EKG showed atrial fibrillation with a rate of 120. There is a left bundle branch block pattern noted. Portable chest x-ray was obtained. There is mild degree of congestive heart failure with small left pleural effusion left basilar atelectasis. There is also some blunting of the right costophrenic angle. This was interpreted by the radiologist and reviewed by myself. CBC was normal. Basic metabolic profile showed a mildly elevated BUN of 31 and creatinine of 1.58. PT with INR and PTT were within normal limits. Troponin was indeterminate at 0.206. BNP was elevated at 2589. Emergency Department Course and Treatment: Patient was given a dose of Cardizem here and was started on a Cardizem drip. Patient was given a dose of Lasix her e. Patient was placed on nitroglycerin paste. Patient was feeling better on reevaluation. Case was discussed with the hospitalist. Disposition: Admit to hospital Impression: 1. Exacerbation of congestive heart failure 2. Elevated troponin 3. Atrial fibrillation with rapid ventricular response This note was generated with [employer] software. It may contain incorrect words, spelling, and punctuation that were not noted in review of the chart prior to signing ED Disposition - Plan for ED Patient: Disposition: Acute Care Hospital [facility] Diagnosis: Congestive heart failure, Elevated troponin, Atrial fibrillation with rapid ventricular response Referrals: Abdoulaye Brock MD [Primary Care Provider] -
[2020-07-12] MEDS: dilTIAZem 25 MG/5 ML Vial IV BOLUS (10:22)
[2020-07-12] MEDS: Aspirin 81 MG TAB.CHEW 324 MG PO (10:22)
--- NOTE | 2020-07-12 10:22 | RAD_ITS ---
STUDY: X-RAY CHEST REASON FOR EXAM: Male, 80 years old. Currently palpitations, hx AFIB, Pt. States 10 lb weight gain in last week TECHNIQUE: Single AP portable view of the chest. COMPARISON: Comparison is made with prior study dated 03/29/2020. FINDINGS: EKG electrodes are seen. Small left pleural effusion with left basilar atelectasis and/or infiltration. Blunting of the right costophrenic angle. Vascular congestion and mild degree of CHF. Sternal cerclage wires and vascular clips are present from a prior sternotomy and coronary artery bypass graft procedure (CABG). Normal mediastinum and heaven. Normal visualized pulmonary arteries. There is atherosclerotic calcification of the aortic arch with tortuosity. There are diffuse degenerative changes of the visualized thoracic spine. Normal visualized ribs, clavicles, and shoulders. There is no demonstrated abnormality of the visualized soft tissue structures of the upper abdomen. RAD/Chest 1 View (Portable) IMPRESSION: Mild degree of CHF with small left pleural effusion and left basilar infiltration and/or atelectasis. Blunting of the right costophrenic angle. There has been improvement as compared to prior study. Electronically Signed: Manny Valle, at 10:34 EDT , Service support ,
[2020-07-12 10:33] LABS: Absolute Lymphocyte Count 1.53 X10^3/uL (0.83-4.51); Absolute Neutrophil Count 6.4 X10^3/uL (2.0-7.7); Basophil# 0.05 X10^3/uL; Basophil% 0.6 % (0-1); Eosinophil# 0.12 X10^3/uL; Eosinophils% 1.3 % (0-5); Hematocrit 44.4 % (40-54); Hemoglobin 14.1 g/dL (13.0-16.5); Lymphocyte # 1.53 X10^3/ul (4.0); Lymphocyte % 17.2 % (19-41); Mean Corp Hgb Conc 31.8 g/dL (32-36); Mean Corpuscular Hgb 30.2 pg (27.0-32.0); Mean Corpuscular Volume 95.1 fL (80-94); Mean Platelet Vol. 12.4 fl (6.2-12.0); Monocyte# 0.78 X10^3/uL; Monocyte% 8.8 % (0-10); NRBC Flagged by Analyzer 0 % (0-5); Neutrophil % 71.9 % (47-70); POSITIVE MORPHOLOGY YES; Platelet Count 138 K/mm3 (150-450); RBC Distribution Width CV 12.4 % (11.6-14.6); RBC Distribution Width SD 42.9 fl (35.1-43.9); Red Blood Count 4.67 M/mm3 (4.6-6.2); White Blood Count 8.9 K/mm3 (4.4-11.0)
[2020-07-12 10:36] LABS: International Normalized Ratio 1.3; Prothrombin Time (Protime)PT. 15.7 SECONDS (11.7-14.9)
[2020-07-12 10:37] LABS: Partial Thromboplast Time 31.6 Seconds (24.1-36.2)
[2020-07-12 10:40] LABS: Anion Gap 6 (5-15); BUN 31 mg/dL (7-18); BUN/Creat Ratio 19.6 RATIO (10-20); Calcium,Total 9.8 mg/dL (8.5-10.1); Chloride 106 mmol/L (98-107); Creatinine, Serum 1.58 mg/dL (0.70-1.30); EST Glomerular Filtration Rate 45 mL/min (>60); Est Glom Filt Rate - Afr Amer 54 mL/min (>60); Estimated Creatinine Clearance 36.05 ml/min; Glucose 208 mg/dL (74-106); Potassium 3.8 mmol/L (3.5-5.1); Sodium Level 141 mmol/L (136-145)
[2020-07-12 11:14] LABS: Differential Indicated SCAN CRITERIA MET
[2020-07-12 11:15] LABS: Differential Comment SCANNED
--- NOTE | 2020-07-12 12:27 | EKG12_ITS ---
Test Reason : REPEAT Blood Pressure : / mmHG Vent. Rate : 099 BPM Atrial Rate : 119 BPM P-R Int : 000 ms QRS Dur : 142 ms QT Int : 402 ms P-R-T Axes : 000 022 220 degrees QTc Int : 515 ms Atrial fibrillation with premature ventricular or aberrantly conducted complexes Left bundle branch block Abnormal ECG When compared with ECG of 12-JUL-2020 10:00, MANUAL COMPARISON REQUIRED, DATA IS UNCONFIRMED Confirmed by DOMINIQUE MONTOYA, STARLA ([id number]), international editorial producer JR SEVERINO ([id number]) on 07/17/2020 12:41:51 PM Referred By: LOU Confirmed By:STARLA FOX MD
[2020-07-12] MEDS: Furosemide 40 MG/4 ML Vial IV ×2 (12:40→18:24)
[2020-07-12] MEDS: Nitroglycerin Oint 1 INCH PACKET TRANSDERM. (12:42)
--- NOTE | 2020-07-12 12:45 | NURSING ---
PCU DALIA CHF EXAC, ELEVATED TROP, AFIB WITH RVR
--- NOTE | 2020-07-12 13:22 | HP.PCM_ITS ---
Problem List (1) Acute on chronic systolic and diastolic heart failure, NYHA class 2 Status: Acute (2) Elevated troponin Status: Acute (3) Atrial fibrillation with rapid ventricular response Status: Acute (4) Amiodarone toxicity Status: Inactive (5) Atherosclerosis of coronary artery of [place] heart with angina pectoris Status: Chronic Qualifiers: (6) History of non-ST elevation myocardial infarction (NSTEMI) Status: Resolved (7) H/O coronary artery bypass surgery Status: Chronic Comment: CABG x 4: COLES-LAD, SVG-D1, SVG to proximal end of SVG to diagonal going to OM 2, and SVG-RPDA 10/30/16 (8) Ischemic cardiomyopathy Status: Chronic (9) Acute on chronic combined systolic (congestive) and diastolic (congestive) heart failure Status: Chronic (10) Diastolic dysfunction Status: Chronic (11) Secondary pulmonary arterial hypertension Status: Chronic (12) Paroxysmal atrial fibrillation Status: Chronic (13) Left bundle branch block (LBBB) Status: Chronic (14) Essential (primary) hypertension Status: Chronic (15) Hyperlipidemia Status: Chronic Qualifiers: History of Present Illness Date of Admission: 07/12/20 Chief Complaint: Shortness of breath for 1 week The patient is a 80 year old M with history of chronic combined heart failure with history of chronic combined heart failure, coronary artery disease status post 5 vessel CABG in 2017 came to ED with shortness of breath progressively worsening for about 10 days. Initially it was on exertion which progressed to shortness of breath at rest for last 3 days. Yesterday started feeling flutters in the chest with palpitation. Denies chest pain or pressure or tightness or squeezing. Denies fever or chills. He noticed decrease in the urine output as he was not getting up 2-3 times a night for urination for last 2 weeks. Prog ressively increasing lower extremity edema. Patient was admitted for similar presentation in March 2020 with A. fib RVR and heart failure exacerbation for which he was cardioverted on March 30, 2020. [] In ED, heart rate was found 126/min, A. fib with RVR. Blood pressure 125/93, tachypneic 24 respiratory rate, pulse ox 100% on 2 L of oxygen. Chest x-ray independently reviewed shows mild congestion with left lung base obliteration/atelectasis suggestive of mild degree of CHF. EKG A. fib with RVR at 117 bpm. Patient has chronic left bundle branch block, PVCs and PACs in previous EKG Patient was given Lasix 40 g IV and started on Cardizem drip after 25 mg IV bolus. Heart rate was slowed down in the 90s. Past Medical History Past Medical History (Chronic Problems): Chronic Problems (Last Reviewed 05/01/20 @ 14:[address] Jason Valero MD) Atherosclerosis of coronary artery of [place] heart with angina pectoris (Chronic) 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) CABG x 4: COLES-LAD, SVG-D1, SVG to proximal end of SVG to diagonal going to OM 2, and SVG-RPDA 10/30/16 Ischemic cardiomyopathy (Chronic) 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) Diastolic dysfunction (Chronic) Secondary pulmonary arterial hypertension (Chronic) Paroxysmal atrial fibrillation (Chronic) Left bundle branch block (LBBB) (Chronic) Essential (primary) hypertension (Chronic) Hyperlipidemia (Chronic) Medical History: Medical History (Last Reviewed 05/01/20 @ 14:[address] Jason Valero MD) Atherosclerosis of coronary artery of [place] heart with angina pectoris (Chronic) I25.119 History of non-ST elevation myocardial infarction (NSTEMI) (Resolved) Onset Date: 05/2017 I25.2 Ischemic cardiomyopathy (Chronic) I25.5 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) I50.43 Diastolic dysfunction (Chronic) I51.89 Secondary pulmonary arterial hypertension (Chronic) I27.21 Paroxysmal atrial fibrillation (Chronic) I48.0 Left bundle branch block (LBBB) (Chronic) I44.7 Essential (primary) hypertension (Chronic) I10 Hyperlipidemia (Chronic) E78.5 Barretts esophagus K22.70 Bilateral pleural effusion Onset Date: 11/2019 J90 CKD (chronic kidney disease) N18.9 Prostate cancer C61 Transient ischemic attack G45.9 Type 2 diabetes mellitus E11.9 Acute respiratory failure with hypoxemia (Resolved) J96.01 Dyspnea on exertion (Resolved) R06.09 Shortness of breath (Resolved) R06.02 Allergies spironolactone Allergy (Verified 07/12/20 09:49) severe weakness lisinopril Adverse Reaction (Mild, Verified 07/12/20 09:49) Dry cough amiodarone Adverse Reaction (Verified 07/12/20 09:49) toxicity Home Medications: Ambulatory Orders Medication Instructions Recorded cholecalciferol (vitamin D3) 125 5,000 unit PO DAILY 02/16/19 mcg (5,000 unit) capsule albuterol sulfate 90 mcg/actuation 1 puff INHALATION Q6H 09/26/19 aerosol inhaler glimepiride 4 mg tablet 2 mg PO BID tab 09/26/19 Aspirin E.C. [Ecotrin] 81 mg PO DAILY@0800 #30 tab 03/29/20 Mirtazapine [Remeron] 15 mg PO QHS #30 tab 04/02/20 apixaban 2.5 mg tablet 2.5 mg PO BID #180 tab 04/11/20 atorvastatin 40 mg tablet 40 mg PO DAILY tab 04/11/20 potassium chloride 20 mEq 20 meq PO DAILY #90 tab 04/23/20 tablet,extended release furosemide 20 mg tablet 60 mg PO BID tab 06/05/20 Isosorbide Mononitrate [Isosorbide 30 mg PO DAILY 07/12/20 Mononitrate ER] Metoprolol Tartrate [Lopressor 50 mg PO BID 07/12/20 (beta kelsey)] Surgical History: Surgical History (Last Reviewed 05/01/20 @ 14:[address] Jason Valero MD) H/O coronary artery bypass surgery (Chronic) Onset Date: 10/30/16 Z95.1 CABG x 4: COLES-LAD, SVG-D1, SVG to proximal end of SVG to diagonal going to OM 2, and SVG-RPDA 10/30/16 History of cardioversion Onset Date: 03/30/20 Z98.890 History of colonoscopy Z98.890 History of dental surgery Z92.89 History of esophagogastroduodenoscopy (EGD) Z98.890 History of left heart catheterization Onset Date: 07/23/18 Z98.890 [place] History of prostatectomy Z90.79 Surgical History: coronary bypass surgery Smoking Status: Never smoker - *Family History Paternal Family History: Family History (Last Reviewed 05/01/20 @ 14:[address] Jason Valero MD) Sister Diabetes Sister Colon cancer Diabetes CVA (cerebral vascular accident) Sister Diabetes Brother Heart disease Diabetes History Items: No pertinent history Review of Systems Constitutional: Denies: Chills, Fever, Weight Change HEENT: Denies: Head Aches, Sinus Congestion, Sinus Drainage Cardiovascular: Reports: Edema, Palpitations, - Respiratory: Reports: Shortness of Breath, Shortness of breath at rest - Flutter waves, Shortness of breath upon exertion. Denies: Cough, Sputum production Gastrointestinal: Denies: Abdominal Pain, Nausea, Vomiting Genitourinary: Reports: Frequency - Decreased urination frequency. Denies: Dysuria Musculoskeletal: Denies: Joint Pain, Joint Tenderness Skin: Denies: Rash, Wounds Neurological: Denies: Numbness, Tingling, Focal weakness Psychiatric: Denies: Anxiety, Depression, Homicidal Ideations, Suicidal Ideations Hematologic/ Lymphatic: Denies: Easy Bruising, Easy Bleeding VTE Information - Inpt Only VTE Present on Admission: No VTE Mechan Device Prophylaxis: None Reason prophylaxis not ordered:: Procedure Not Indicated - Already on Eliquis for anticoagulant Patient Problems: Active and Suspected Problems (Last Reviewed 05/01/20 @ 14:[address] Jason Valero MD) Congestive heart failure (Acute) Elevated troponin (Acute) Atrial fibrillation with rapid ventricular response (Acute) Acute on chronic systolic and diastolic heart failure, NYHA class 2 (Acute) Objective: Physical exam General: Alert, Oriented x3, Cooperative HEENT: Atraumatic, PERRLA, EOMI, Normocephalic Oral: No Gingival or Mucosal Lesions/ Ulcerations Neck: Supple, No JVD, Negative Carotid Bruits Lungs: Air entry diminished in bilateral lung bases. Bilateral lower lung rales present. No tachypnea. No hypoxia. Cardiovascular: Irregular rate and rhythm, Normal S1, Normal S2, No murmurs Abdomen: Bowel Sounds Present, Soft, Non Tender, Non-Distended : No renal angle tenderness. No suprapubic tenderness. Extremities: Bilateral below-knee leg edema, Capillary Refill Less than 3 Seconds Skin: No rashes, No breakdown Musculoskeletal: No Tenderness to Palpation of Joints or Extremities Neurological: Cranial nerves II-XII grossly intact, Deep Tendon Reflexes 2+/4 and Symmetrical, Neuro grossly intact Psych/Mental Status: Normal Affect, Appropriate. - Physical Exam Vitals/I&O's: Vital Signs Temp Pulse Resp BP Pulse Ox 98.0 F 95 16 122/86 H 100 07/12/20 12:36 07/12/20 12:42 07/12/20 12:36 07/12/20 12:42 07/12/20 12:36 Oxygen Flow Rate (L/min) 2 Oxygen Delivery Method Room Air Weight: 159 lb Body Mass Index (BMI) 23.4 Laboratory Results 07/12/20 10:16: WBC 8.9, RBC 4.67, Hgb 14.1, Hct 44.4, MCV 95.1 H, MCH 30.2, MCHC 31.8 L, RDW Std Deviation 42.9, RDW Coeff of Shashank 12.4, Plt Count 138 L, MPV 12.4 H, Immature Gran % (Auto) 0.200, Neut % (Auto) 71.9 H, Lymph % (Auto) 17.2 L, [place] % (Auto) 8.8, Eos % (Auto) 1.3, Baso % (Auto) 0.6, Absolute Neuts (auto) 6.4, Absolute Lymphs (auto) 1.53, Nucleated RBC % 0, Differential Comment SCANNED 07/12/20 10:16: Sodium 141, Potassium 3.8, Chloride 106, Carbon Dioxide 29.0, Anion Gap 6, BUN 31 H, Creatinine 1.58 H, Estim Creat Clear Calc 36.05, Est GFR (MDRD) Af Amer 54 L, Est GFR (MDRD) Non-Af 45 L, BUN/Creatinine Ratio 19.6, Glucose 208 H, Calcium 9.8, Troponin I 0.206 H 07/12/20 10:16: PT 15.7 H, INR 1.3, APTT 31.6 07/12/20 10:16: B-Natriuretic Peptide 2589.5 H Current Medications Diltiazem HCl 125 mg/ Dextrose 125 mls @ 5 mls/hr IV .Q25H [facility]; Protocol Last Admin: 07/12/20 11:37 Dose: 5 mg/hr, 5 mls/hr Documented by: Assessment/Plan All Active Problems (Last Reviewed 05/01/20 @ 14:[address] Jason Valero MD) Congestive heart failure (Acute) Elevated troponin (Acute) Atrial fibrillation with rapid ventricular response (Acute) Acute on chronic systolic and diastolic heart failure, NYHA class 2 (Acute) History of non-ST elevation myocardial infarction (NSTEMI) (Resolved 05/2017) Acute respiratory failure with hypoxemia (Resolved) Dyspnea (Resolved) Dyspnea on exertion (Resolved) Shortness of breath (Resolved) The patient is a 80 year old M with history of chronic combined heart failure with history of chronic combined heart failure, coronary artery disease status post 5 vessel CABG in 2016 came to ED with shortness of breath progressively worsening for about 10 days and palpitation consistent with acute on chronic heart failure with A. fib with RVR 1. Acute on chronic combined heart failure secondary to A. fib with RVR: Patient is being admitted in PCU. Serial cardiac enzymes. Continue IV Cardizem drip and oral metoprolol 50 mg twice daily. Continue Eliquis 2.5 mg p.o. twice daily. Started on Lasix 40 mg IV twice daily. On heart failure core measures including fluid restriction, strict intake and output, 2 g salt, PT and OT. Patient home medication atorvastatin baby aspirin and potassium supplement resumed. Patient is allergic to SHASHA/ARB. Patient was on amiodarone which was discontinued during previous admission secondary to acute liver injury. Recent echo in February 2020 reported as below Interpretation Summary Normal LV size. Mild concentric left ventricular hypertrophy. Left ventricular systolic function is normal. The estimated ejection fraction is 45 %. Stage 3 diastolic dysfunction. Pulmonary artery systolic pressure is 44 mmHg. Mild pulmonary hypertension. 2. Atrial fib with RVR: During previous admission in March 2020 patient required cardioversion. Discussed with medical records receptionist Dr. valero. At present, goal is to control his heart rate. 3. CKD stage III: Current BUN 31, creatinine is 1.58. Last creatinine was 1.74 in May 2029 but her baseline creatinine runs around 1.7-2.0. On March 2020, renal US shows normal kidneys no hydronphrosis. 4. VTE prophylaxis on Eliquis Inpatient E&M: [id number] Init Hosp L3
[2020-07-12] MEDS: 0.9% Saline Lock 10 ML Syringe IV (18:30)
--- NOTE | 2020-07-12 19:19 | EKG12_ITS ---
Test Reason : PALPS Blood Pressure : / mmHG Vent. Rate : 120 BPM Atrial Rate : 133 BPM P-R Int : 000 ms QRS Dur : 146 ms QT Int : 376 ms P-R-T Axes : 000 011 213 degrees QTc Int : 531 ms Atrial fibrillation Left bundle branch block Abnormal ECG Confirmed by CRYS MONTOYA, MELI ([id number]), editor book JR SEVERINO ([id number]) on 07/19/2020 12:52:03 P M Referred By: Confirmed By:JUMA SPANGLER MD
[2020-07-12] MEDS: Metoprolol Tartrate 50 MG Tablet PO (20:46)
[2020-07-12] MEDS: APIXABAN 2.5 MG TABLET PO (20:46)
[2020-07-12] MEDS: Mirtazapine 15 MG Tablet PO (20:46)
[2020-07-12] MEDS: Calcium Carbonate 500 MG Tablet 1000 MG PO (20:46)
[2020-07-13] VITALS (25 sets, daily range): BP systolic 98–116; BP diastolic 53–81; PULSE 65–105; RESP 15–24; TEMP 36.2–36.9; O2SAT 94–100
--- NOTE | 2020-07-13 05:55 | EKG12_ITS ---
Test Reason : AM EKG Blood Pressure : / mmHG Vent. Rate : 070 BPM Atrial Rate : 087 BPM P-R Int : 000 ms QRS Dur : 150 ms QT Int : 482 ms P-R-T Axes : 000 015 206 degrees QTc Int : 520 ms Atrial fibrillation Left bundle branch block Abnormal ECG When compared with ECG of 12-JUL-2020 19:35, MANUAL COMPARISON REQUIRED, DATA IS UNCONFIRMED Confirmed by DOMINIQUE MONTOYA, STARLA ([id number]), purchase request editor JR SEVERINO ([id number]) on 07/17/2020 12:41:09 PM Referred By: DALIA Confirmed By:STARLA FOX MD
[2020-07-13 06:41] LABS: Absolute Lymphocyte Count 1.42 X10^3/uL (0.83-4.51); Basophil# 0.03 X10^3/uL; Basophil% 0.5 % (0-1); Eosinophil# 0.21 X10^3/uL; Eosinophils% 3.3 % (0-5); Hematocrit 37.7 % (40-54); Hemoglobin 12.2 g/dL (13.0-16.5); Lymphocyte # 1.42 X10^3/ul (4.0); Lymphocyte % 22.3 % (19-41); Mean Corp Hgb Conc 32.4 g/dL (32-36); Mean Corpuscular Hgb 30.1 pg (27.0-32.0); Mean Corpuscular Volume 93.1 fL (80-94); Mean Platelet Vol. 12.3 fl (6.2-12.0); NRBC Flagged by Analyzer 0 % (0-5); Neutrophil % 62.6 % (47-70); Platelet Count 119 K/mm3 (150-450); RBC Distribution Width CV 12.2 % (11.6-14.6); RBC Distribution Width SD 42.1 fl (35.1-43.9); Red Blood Count 4.05 M/mm3 (4.6-6.2); White Blood Count 6.4 K/mm3 (4.4-11.0)
[2020-07-13 07:19] LABS: AST(SGOT) 20 U/L (15-37); Alanine Aminotransfer ALT/SGPT 43 U/L (16-61); Alkaline Phosphatase 82 U/L (45-117); Anion Gap 2 (5-15); BUN 27 mg/dL (7-18); BUN/Creat Ratio 17.5 RATIO (10-20); Bilirubin, Direct 0.32 mg/dL (0.00-0.30); Calcium,Total 9.3 mg/dL (8.5-10.1); Chloride 106 mmol/L (98-107); Cholesterol 112 mg/dL (200); Creatinine, Serum 1.54 mg/dL (0.70-1.30); EST Glomerular Filtration Rate 46 mL/min (>60); Est Glom Filt Rate - Afr Amer 56 mL/min (>60); Estimated Creatinine Clearance 36.83 ml/min; Globulin 3.2 g/dL (2.2-4.2); Glucose 160 mg/dL (74-106); High Density Lipoprotein 29 mg/dL; Potassium 3.1 mmol/L (3.5-5.1); Protein, Total 6.2 g/dL (6.4-8.2); Sodium Level 142 mmol/L (136-145); Thyroid Stim Hormone (TSH) 0.75 uIU/mL (0.358-3.74); Triglycerides 115 mg/dL; Very Low Density Lipoprotein 23 mg/dL (5-40)
[2020-07-13] MEDS: Aspirin 81 MG TAB.CHEW PO (08:39)
[2020-07-13] MEDS: APIXABAN 2.5 MG TABLET PO ×2 (08:39→20:13)
[2020-07-13] MEDS: Glimepiride 2 MG Tablet PO (08:39)
[2020-07-13] MEDS: Atorvastatin Calcium 40 MG Tablet PO (08:41)
[2020-07-13] MEDS: Metoprolol Tartrate 100 MG Tablet PO ×2 (08:45→20:13)
--- NOTE | 2020-07-13 10:35 | CASEMGMT ---
RN MASSIEL Face to Face with patient for initial transition planning/care coordination assessment. RN CM introduced self and role at [facility]. Patient sitting in chair, alert and oriented. Patient willing to participate in assessment and is able to answer all questions appropriately. Care providers, pharmacy, and demographics verified. Patient wishes to discharge home and would like resumption of care with [facility], which patient states is through the hospital. Patient states he has no further needs or concerns at this time. CM to follow for discharge planning needs that may arise. PCP: Delmy Specialists: Allan circuit board inspector Preferred Pharmacy: [facility] Insurance: [facility] Prescription Benefit: yes Living Will/HPOA: none LNOK: , son Living Arrangements: Patient lives with in a single story home with 1 step to enter the home. Patient states he is independent at home and helps care for . Transportation: self/son DME/HHC: patient states he has a cane, shower chair, raised toilet, and grab bars. Patient states he has nurse that visits once a week from [facility]. Patient states he is interested in walker or rollator and prefers [employer]. Disposition Plan: Patient to discharge home with resumption of care, family support, and follow-up plans in place. Azucena DEJESUS, RN, CM
--- NOTE | 2020-07-13 11:51 | CASEMGMT ---
Addendum entered by Loly Arredondo 07/13/20 14:24: Pt/son state would be interested in getting a script for rollator so they have it if they decide in the future to get one. Dr Frost made aware and script obtained. Script given to pt at this time along w/a list of local DME companies. Addendum entered by Loly Arredondo 07/13/20 12:05: Call received from [facility]. They are able to accept pt. She is aware anticipate discharge tomorrow. She states start of care will be either Thursday or Thursday. Pt made aware. Call placed to Cristobal @ [facility] and she made aware plan for discharge is home w/[facility]. Addendum entered by Loly Arredondo 07/13/20 11:57: Call received back from [facility] and she was made aware pt states his insurance company told him [facility] is in-network and that he would still like [facility] if able to. Referral made at this time. Original Note: GERMÁN RANKIN NOTE: To room to talk with pt re: HHC and rollator vs Walker. Pt made aware, through [employer], [id number] cost for rollator would be $79.95 if he has met his deductible and $125 if he has not met the deductible. Pt states he will put a rollator on the back burner. GERMÁN RANKIN inquired about getting walker for him, but he declines this at this time, stating he will look into getting one later but does not want one now, stating that he does fine with his cane. Pt states would like [facility]. He is currently active with [facility]. Call placed to [facility] and she states they are not a provider/in-network with pt's insurance [facility]. Pt made aware and states he has spoke with his insurance company and that they informed him that [facility] is in-network and that he would like [facility] still if possible. Call placed back to [facility] and VM message left with her re: same. Awaiting return call. Clay DEJESUS RN, CM
--- NOTE | 2020-07-13 13:28 | PN_ITS ---
Patient Problems: Active and Suspected Problems (Last Reviewed 05/01/20 @ 14:[address] Jason Valero MD) Congestive heart failure (Acute) Elevated troponin (Acute) Atrial fibrillation with rapid ventricular response (Acute) Acute on chronic systolic and diastolic heart failure, NYHA class 2 (Acute) Reason for Visit: No fever heart rate and blood pressure is controlled. certified registered nurse anesthetist shows A. fib. Blood pressure in 100. Patient states usually his blood pressure is in 90s. No dizziness, palpitation or chest tightness or pain. Cardizem drip is being tapered off. Physical exam General: Alert, Oriented x3, Cooperative HEENT: Atraumatic, PERRLA, EOMI, Normocephalic Oral: No Gingival or Mucosal Lesions/ Ulcerations Neck: Supple, No JVD, Negative Carotid Bruits Lungs: Air entry diminished in bilateral lung bases. No crepitation/rhonchi. No tachypnea or hypoxia. Cardiovascular: Irregular rate and rhythm rhythm, Normal S1, Normal S2, No murmurs Abdomen: Bowel Sounds Present, Soft, Non Tender, Non-Distended : No renal angle tenderness. No suprapubic tenderness. Extremities: No edema, Capillary Refill Less than 3 Seconds Skin: No rashes, No breakdown Musculoskeletal: No Tenderness to Palpation of Joints or Extremities Neurological: Cranial nerves II-XII grossly intact, Deep Tendon Reflexes 2+/4 and Symmetrical, Neuro grossly intact Psych/Mental Status: Normal Affect, Appropriate. Vitals/I&O's: Vital Signs Temp Pulse Resp BP Pulse Ox 97.2 F L 66 16 99/53 L 96 07/13/20 10:30 07/13/20 10:30 07/13/20 10:30 07/13/20 10:30 07/13/20 10:30 Oxygen Flow Rate (L/min) 2 Oxygen Delivery Method Room Air Weight: 155 lb 3.287 oz Body Mass Index (BMI) 23.3 Intake and Output for Last 24 Hours 07/11/20 07/12/20 07/13/20 23:59 23:59 23:59 Intake Total 643.17 / 653.17 416.25 / 416.25 Balance 643.17 / 653.17 416.25 / 416.25 Laboratory Results 07/12/20 10:16: Magnesium 2.0 07/12/20 16:08: Troponin I 0.244 H 07/12/20 19:09: Troponin I 0.255 H 07/12/20 21:51: Troponin I 0.239 H 07/13/20 06:20: WBC 6.4, RBC 4.05 L, Hgb 12.2 L, Hct 37.7 L, MCV 93.1, MCH 30.1, MCHC 32.4, RDW Std Deviation 42.1, RDW Coeff of Shashank 12.2, Plt Count 119 L, MPV 12.3 H, Immature Gran % (Auto) 0.300, Neut % (Auto) 62.6, Lymph % (Auto) 22.3, [place] % (Auto) 11.0 H, Eos % (Auto) 3.3, Baso % (Auto) 0.5, Absolute Neuts (auto) 4.0, Absolute Lymphs (auto) 1.42, Nucleated RBC % 0 07/13/20 06:20: Sodium 142, Potassium 3.1 L, Chloride 106, Carbon Dioxide 34.0 H , Anion Gap 2 L, BUN 27 H, Creatinine 1.54 H, Estim Creat Clear Calc 36.83, Est GFR (MDRD) Af Amer 56 L, Est GFR (MDRD) Non-Af 46 L, BUN/Creatinine Ratio 17.5, Glucose 160 H, Calcium 9.3, Total Bilirubin 1.20 H, Direct Bilirubin 0.32 H, AST 20, ALT 43, Alkaline Phosphatase 82, Total Protein 6.2 L, Albumin 3.0 L, Globulin 3.2, Triglycerides 115, Cholesterol 112, LDL Cholesterol 60, VLDL Cholesterol 23, HDL Cholesterol 29 L, TSH 0.75 Current Medications Acetaminophen (Tylenol) 650 mg PO Q6H PRN PRN PRN Reason: Pain Score 1-10/Temp > 100.7 F Albuterol Sulfate (Ventolin Aerosols) 2.5 mg INHALATION Q2H PRN PRN PRN Reason: SOB/Wheezing Apixaban (Eliquis) 2.5 mg PO BID [facility] Last Admin: 07/13/20 08:39 Dose: 2.5 mg Documented by: Aspirin (Aspirin, Baby) 81 mg PO DAILY@0800 [facility] Last Admin: 07/13/20 08:39 Dose: 81 mg Documented by: Atorvastatin Calcium (Lipitor) 40 mg PO DAILY [facility] Last Admin: 07/13/20 08:41 Dose: 40 mg Documented by: Calcium Carbonate (Tums) 1,000 mg PO Q6H PRN PRN PRN Reason: HEARTBURN OR INDIGESTION Last Admin: 07/12/20 20:46 Dose: 1,000 mg Documented by: Furosemide (Lasix) 40 mg IV BIDLX [facility] Last Admin: 07/13/20 10:46 Dose: Not Given Documented by: Glimepiride (Amaryl) 2 mg PO DAILYCM [facility] Last Admin: 07/13/20 08:39 Dose: 2 mg Documented by: Diltiazem HCl 125 mg/ Dextrose 125 mls @ 5 mls/hr IV .Q25H [facility]; Protocol Last Titration: 07/13/20 09:45 Dose: 0 mg/hr, 0 mls/hr Documented by: Sodium Chloride () 250 mls @ 15 mls/hr IV .[id number] PRN PRN Reason: Saline Flush Sodium Chloride () 250 mls @ 15 mls/hr IV .[id number] PRN PRN Reason: Additional IVPB Infusion Metoprolol Tartrate (Lopressor (Beta Ivy)) 100 mg PO BID [facility] Last Admin: 07/13/20 08:45 Dose: 100 mg Documented by: Mirtazapine (Remeron) 15 mg PO QHS [facility] Last Admin: 07/12/20 20:46 Dose: 15 mg Documented by: Morphine Sulfate () 2 mg IV Q3H PRN PRN PRN Reason: Pain Score 6-10/10 Nitroglycerin (Nitrostat) 0.4 mg SUBLINGUAL Q5M PRN PRN Reason: CARDIAC/CHEST PAIN Nutritional Formula (Lactose Free) (Glucerna Shake) 120 ml PO TIDCM [facility] Last Admin: 07/13/20 12:20 Dose: Not Given Documented by: Oxycodone HCl (Oxyir) 5 mg PO Q4H PRN PRN PRN Reason: Pain Score 4-5/10 Potassium Chloride (K-Dur) 20 meq PO DAILY@0800 [facility] Last Admin: 07/13/20 08:39 Dose: 20 meq Documented by: Prochlorperazine Edisylate (Compazine Iv) 5 mg IV Q4H PRN PRN PRN Reason: Breakthrough Nausea/Vomiting Psyllium Hydrophilic Mucilloid (Metamucil) 1 packet PO DAILY [facility] Last Admin: 07/13/20 08:43 Dose: Not Given Documented by: Senna/Docusate Sodium (Senokot-S, Melissa-Colace) 2 tablet PO BID PRN PRN PRN Reason: Constipation Sodium Chloride () 10 - 40 ml IV UD PRN PRN Reason: SALINE FLUSH Last Admin: 07/12/20 18:30 Dose: 10 ml Documented by: STROKE Vital Signs/Narrative: Vital Signs Temp Pulse Resp BP Pulse Ox 07/13/20 10:30 97.2 F L 66 16 99/53 L 96 07/13/20 09:45 67 15 110/64 96 Medical Necessity - Tobacco Use Smoking Status: Never smoker Tobacco Use: Non-smoker Assessment/Plan All Active Problems (Last Reviewed 05/01/20 @ 14:[address] Jason Valero MD) Congestive heart failure (Acute) Elevated troponin (Acute) Atrial fibrillation with rapid ventricular response (Acute) Acute on chronic systolic and diastolic heart failure, NYHA class 2 (Acute) History of non-ST elevation myocardial infarction (NSTEMI) (Resolved 05/2017) Acute respiratory failure with hypoxemia (Resolved) Dyspnea (Resolved) Dyspnea on exertion (Resolved) Shortness of breath (Resolved) The patient is a 80 year old M with history of chronic combined heart failure with history of chronic combined heart failure, coronary artery disease status post 5 vessel CABG in 2016 came to ED with shortness of breath progressively worsening for about 10 days and palpitation consistent with acute on chronic heart failure with A. fib with RVR 1. Acute on chronic combined heart failure secondary to A. fib with RVR: Patient is being admitted in PCU. Serial cardiac enzymes. Continue IV Cardizem drip and oral metoprolol 50 mg twice daily. Continue Eliquis 2.5 mg p.o. twice daily. Started on Lasix 40 mg IV twice daily. On heart failure core measures including fluid restriction, strict intake and output, 2 g salt, PT and OT. Patient home medication atorvastatin baby aspirin and potassium supplement resumed. Patient is allergic to SHASHA/ARB. Patient was on amiodarone which was discontinued during previous admission secondary to acute liver injury. Recent echo in February 2020 reported as below Interpretation Summary Normal LV size. Mild concentric left ventricular hypertrophy. Left ventricular systolic function is normal. The estimated ejection fraction is 45 %. Stage 3 diastolic dysfunction. Pulmonary artery systolic pressure is 44 mmHg. Mild pulmonary hypertension. 07/13: Morning dose of Lasix was given as patient blood pressure was lower but patient does not have shortness of breath. Lungs clear. Serial troponins are mildly elevated 0.20, 0.25, 0.239, flat and indeterminate. Most probably secondary to A. fib with RVR. Patient does not have chest pain, shortness of breath or palpitation. 2. Atrial fib with RVR: During previous admission in March 2020 patient required cardioversion. 07/13: Cardizem drip was tapered off. Metoprolol dose increased 100 mg twice daily. It was 100 mg twice daily in the past but was decreased to 50 mg twice daily by PCP in consultation with Dr. valero probably secondary to bradycardia. Discussed with the director of architecture Dr. valero about cardioversion but he he thinks there is no indication as patient does not sustain in sinus rhythm even after cardioversion. At present, goal is to control his heart rate. 3. CKD stage III: Current BUN 31, creatinine is 1.58. Last creatinine was 1.74 in May 2029 but her baseline creatinine runs around 1.7-2.0. On March 2020, renal US shows normal kidneys no hydronphrosis. 4. VTE prophylaxis on [facility] Inpatient E&M: 84253 Subs Hosp L2
[2020-07-13] MEDS: Furosemide 40 MG/4 ML Vial IV (19:06)
[2020-07-13] MEDS: Mirtazapine 15 MG Tablet PO (20:13)
[2020-07-14] VITALS (18 sets, daily range): BP systolic 95–110; BP diastolic 53–64; PULSE 81–125; RESP 16–18; TEMP 36.6–36.8; O2SAT 93–98
[2020-07-14] MEDS: 0.9% Saline Lock 10 ML Syringe IV (08:47)
[2020-07-14] MEDS: Furosemide 40 MG/4 ML Vial IV (08:47)
[2020-07-14] MEDS: Metoprolol Tartrate 100 MG Tablet PO ×2 (08:48→21:27)
[2020-07-14] MEDS: APIXABAN 2.5 MG TABLET PO ×2 (08:48→21:27)
[2020-07-14] MEDS: Aspirin 81 MG TAB.CHEW PO (08:49)
[2020-07-14] MEDS: Atorvastatin Calcium 40 MG Tablet PO (08:49)
[2020-07-14] MEDS: Glimepiride 2 MG Tablet PO (08:49)
[2020-07-14] MEDS: Potassium Chloride 10mEq/100mL 10 MEQ/100 ML IV.SOLN. 100 MEQ IV BOLUS ×2 (09:21→10:54)
[2020-07-14 09:24] LABS: Magnesium 1.8 mg/dL (1.6-2.6); Phosphorus 2.9 mg/dL (2.5-4.9)
[2020-07-14] MEDS: dilTIAZem CD 120 MG Capsule PO ×2 (09:44→18:02)
--- NOTE | 2020-07-14 12:13 | PN_ITS ---
Patient Problems: Active and Suspected Problems (Last Reviewed 05/01/20 @ 14:[address] Jason Valero MD) Congestive heart failure (Acute) Elevated troponin (Acute) Atrial fibrillation with rapid ventricular response (Acute) Acute on chronic systolic and diastolic heart failure, NYHA class 2 (Acute) Objective: Follow-up for Dennis ivan with RVR with CHF exacerbation. Patient blood pressure is low about 108/70 last evening and today 110/63. Heart rate elevated 109 to 124/min. After 40 mg of Lasix in the morning, patient feeling dizzy, weak. Further he said he has been urinating a lot for 5 times yesterday evening and then today in the morning therefore he is dehydrated. Lasix discontinued. IV fluid normal at 500 normal saline bolus. Discharge was canceled. Physical exam General: Weak, lethargic, oriented x3, Cooperative HEENT: Atraumatic, PERRLA, EOMI, Normocephalic Oral: No Gingival or Mucosal Lesions/ Ulcerations Neck: Supple, No JVD, Negative Carotid Bruits Lungs: Air entry diminished in bilateral lung bases. No crepitation/rhonchi. No tachypnea or hypoxia. Cardiovascular: Irregular rate and rhythm rhythm, tachycardia, normal S1, Normal S2, No murmurs Abdomen: Bowel Sounds Present, Soft, Non Tender, Non-Distended : No renal angle tenderness. No suprapubic tenderness. Extremities: No edema, Capillary Refill Less than 3 Seconds Skin: No rashes, No breakdown Musculoskeletal: No Tenderness to Palpation of Joints or Extremities Neurological: Cranial nerves II-XII grossly intact, Deep Tendon Reflexes 2+/4 and Symmetrical, Neuro grossly intact Psych/Mental Status: Normal Affect, Appropriate. Vitals/I&O's: Vital Signs Temp Pulse Resp BP Pulse Ox 98.2 F 124 H 16 108/64 95 07/14/20 08:01 07/14/20 09:44 07/14/20 08:01 07/14/20 09:44 07/14/20 08:01 Oxygen Flow Rate (L/min) 2 Oxygen Delivery Method Room Air Weight: 154 lb 1.65 oz Body Mass Index (BMI) 23.3 Intake and Output for Last 24 Hours 07/12/20 07/13/20 07/14/20 23:59 23:59 23:59 Intake Total 643.17 / 653.17 896.25 / 1056.25 410 / 410 Balance 643.17 / 653.17 896.25 / 1056.25 410 / 410 Laboratory Results 07/14/20 09:02: Phosphorus 2.9, Magnesium 1.8 Current Medications Acetaminophen (Tylenol) 650 mg PO Q6H PRN PRN PRN Reason: Pain Score 1-10/Temp > 100.7 F Albuterol Sulfate (Ventolin Aerosols) 2.5 mg INHALATION Q2H PRN PRN PRN Reason: SOB/Wheezing Apixaban (Eliquis) 2.5 mg PO BID [facility] Last Admin: 07/14/20 08:48 Dose: 2.5 mg Documented by: Aspirin (Aspirin, Baby) 81 mg PO DAILY@0800 [facility] Last Admin: 07/14/20 08:49 Dose: 81 mg Documented by: Atorvastatin Calcium (Lipitor) 40 mg PO DAILY [facility] Last Admin: 07/14/20 08:49 Dose: 40 mg Documented by: [facility] Admin: 07/14/20 08:49 Dose: 2 mg Documented by: Sodium Chloride () 250 mls @ 15 mls/hr IV .[id number] PRN PRN Reason: Saline Flush Sodium Chloride () 250 mls @ 15 mls/hr IV .[id number] PRN PRN Reason: Additional IVPB Infusion Magnesium Chloride (Mag64) 128 mg PO DAILY [facility] Metoprolol Tartrate (Lopressor (Beta Ivy)) 100 mg PO BID [facility] Last Admin: 07/14/20 08:48 Dose: 100 mg Documented by: Mirtazapine (Remeron) 15 mg PO QHS [facility] Last Admin: 07/13/20 20:13 Dose: 15 mg Documented by: Morphine Sulfate () 2 mg IV Q3H PRN PRN PRN Reason: Pain Score 6-10/10 Nitroglycerin (Nitrostat) 0.4 mg SUBLINGUAL Q5M PRN PRN Reason: CARDIAC/CHEST PAIN Nutritional Formula (Lactose Free) (Glucerna Shake) 120 ml PO TIDCM [facility] Last Admin: 07/14/20 08:47 Dose: Not Given Documented by: Oxycodone HCl (Oxyir) 5 mg PO Q4H PRN PRN PRN Reason: Pain Score 4-5/10 Potassium Phos/Sodium Phos (Neutra-Phos Packet) 1 packet PO BID [facility] Prochlorperazine Edisylate (Compazine Iv) 5 mg IV Q4H PRN PRN PRN Reason: Breakthrough Nausea/Vomiting Psyllium Hydrophilic Mucilloid (Metamucil) 1 packet PO DAILY [facility] Last Admin: 07/14/20 08:04 Dose: Not Given Documented by: Senna/Docusate Sodium (Senokot-S, Melissa-Colace) 2 tablet PO BID PRN PRN PRN Reason: Constipation Sodium Chloride () 10 - 40 ml IV UD PRN PRN Reason: SALINE FLUSH Last Admin: 07/14/20 08:47 Dose: 10 ml Documented by: STROKE Vital Signs/Narrative: Vital Signs Pulse BP 07/14/20 09:44 124 H 108/64 07/14/20 08:48 124 H Medical Necessity - Tobacco Use Smoking Status: Never smoker Tobacco Use: Non-smoker Assessment/Plan All Active Problems (Last Reviewed 05/01/20 @ 14:[address] Jason Valero MD) Congestive heart failure (Acute) Elevated troponin (Acute) Atrial fibrillation with rapid ventricular response (Acute) Acute on chronic systolic and diastolic heart failure, NYHA class 2 (Acute) History of non-ST elevation myocardial infarction (NSTEMI) (Resolved 05/2017) Acute respiratory failure with hypoxemia (Resolved) Dyspnea (Resolved) Dyspnea on exertion (Resolved) Shortness of breath (Resolved) The patient is a 80 year old M with history of chronic combined heart failure with history of chronic combined heart failure, coronary artery disease status post 5 vessel CABG in 2016 came to ED with shortness of breath progressively worsening for about 10 days and palpitation consistent with acute on chronic heart failure with A. fib with RVR 1. Acute on chronic combined heart failure secondary to A. fib with RVR: Patient is being admitted in PCU. Serial cardiac enzymes. Continue IV Cardizem drip and oral metoprolol 50 mg twice daily. Continue Eliquis 2.5 mg p.o. twice daily. Started on Lasix 40 mg IV twice daily. On heart failure core measures including fluid restriction, strict intake and output, 2 g salt, PT and OT. Patient home medication atorvastatin baby aspirin and potassium supplement resumed. Patient is allergic to SHASHA/ARB. Patient was on amiodarone which was discontinued during previous admission secondary to acute liver injury. 07/14: Patient is over diuresed and seems dehydrated. Normal saline 500 mL bolus ordered. Unasyn discontinued Recent echo in February 2020 reported as below Interpretation Summary Normal LV size. Mild concentric left ventricular hypertrophy. Left ventricular systolic function is normal. The estimated ejection fraction is 45 %. Stage 3 diastolic dysfunction. Pulmonary artery systolic pressure is 44 mmHg. Mild pulmonary hypertension. 07/13: Morning dose of Lasix was given as patient blood pressure was lower but patient does not have shortness of breath. Lungs clear. Serial troponins are mildly elevated 0.20, 0.25, 0.239, flat and indeterminate. Most probably secondary to A. fib with RVR. Patient does not have chest pain, shortness of breath or palpitation. 2. Atrial fib with RVR: During previous admission in March 2020 patient required cardioversion. 07/13: Cardizem drip was tapered off. Metoprolol dose increased 100 mg twice daily. It was 100 mg twice daily in the past but was decreased to 50 mg twice daily by PCP in consultation with Dr. valero probably secondary to bradycardia. Discussed with the logistics engineer Dr. valero about cardioversion but he he thinks there is no indication as patient does not sustain in sinus rhythm even after cardioversion. At present, goal is to control his heart rate. 07/14: Started on Cardizem CD 120 mg twice daily. Metoprolol 100 mg twice daily. 3. CKD stage III: Current BUN 31, creatinine is 1.58. Last creatinine was 1.74 in May 2029 but her baseline creatinine runs around 1.7-2.0. On March 2020, renal US shows normal kidneys no hydronphrosis. 07/14: Creatinine is holding up. 4. VTE prophylaxis on Eliquis Clinical update was given to patient's son. Inpatient E&M: 16054 Subs Hosp L2
[2020-07-14] MEDS: Magnesium Chloride 64 MG Delay Rel.Tablet 128 MG PO (18:02)
[2020-07-14] MEDS: Na Biphos/Potassium Phosphate PACKET 1 PACKET PO (18:03)
[2020-07-14] MEDS: Mirtazapine 15 MG Tablet PO (21:28)
--- NOTE | 2020-07-14 23:33 | NURSING ---
pt called out stated he was sob and felt like he was suffocating, pulse ox 94% on room air, placed on 2lnc, feeling better 98%, lungs with scattered crackles
--- NOTE | 2020-07-15 00:16 | NURSING ---
DR NOTIFIED OF THE PT SOB AND CRACKLES, DR WENT INTO HIS ROOM AND THE PT WAS SLEEPING WELL AFTER THE OXYGEN WAS APPLIED, INSTRUCTED TO LET HIM SLEEP MONITOR HIS O2, IF THE PT C/O BEING SOB AGAIN CALL HIM.
[2020-07-15 07:00] VITALS: PULSE 84
[2020-07-15] MEDS: dilTIAZem CD 120 MG Capsule PO (07:17)
[2020-07-15 07:19] VITALS: BP 106/72; PULSE 89; RESP 16; TEMP 36.2; O2SAT 100
[2020-07-15 07:34] VITALS: O2SAT 99
[2020-07-15 08:18] LABS: Anion Gap 5 (5-15); BUN 34 mg/dL (7-18); BUN/Creat Ratio 21.8 RATIO (10-20); Calcium,Total 9.3 mg/dL (8.5-10.1); Chloride 106 mmol/L (98-107); Creatinine, Serum 1.56 mg/dL (0.70-1.30); EST Glomerular Filtration Rate 46 mL/min (>60); Est Glom Filt Rate - Afr Amer 55 mL/min (>60); Glucose 196 mg/dL (74-106); Potassium 4.2 mmol/L (3.5-5.1); Sodium Level 140 mmol/L (136-145)
--- NOTE | 2020-07-15 08:51 | DS.PCM_ITS ---
Discharge Date and Diagnosis - Problem List Patient Problems: Active and Suspected Problems (Last Reviewed 05/01/20 @ 14:[address] Jason Valero MD) Congestive heart failure (Acute) Elevated troponin (Acute) Atrial fibrillation with rapid ventricular response (Acute) Acute on chronic systolic and diastolic heart failure, NYHA class 2 (Acute) Date of Admission: 07/12/20 Date of Discharge: 07/14/20 - Primary Discharge Diagnosis Acute Problems: Active Problems (Last Reviewed 05/01/20 @ 14:[address] Jason Valero MD) Atrial fibrillation with rapid ventricular response (Acute) Acute on chronic systolic and diastolic heart failure, NYHA class 2 (Acute) - Secondary Discharge Diagnosis Chronic Problems: Chronic Problems (Last Reviewed 05/01/20 @ 14:[address] 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) CABG x 4: COLES-LAD, SVG-D1, SVG to proximal end of SVG to diagonal going to OM 2, and SVG-RPDA 10/30/16 Ischemic cardiomyopathy (Chronic) 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) Diastolic dysfunction (Chronic) Secondary pulmonary arterial hypertension (Chronic) Paroxysmal atrial fibrillation (Chronic) Left bundle branch block (LBBB) (Chronic) Essential (primary) hypertension (Chronic) Hyperlipidemia (Chronic) Hospital Course and Treatment Operations: None Summary of Care Provided: [] The patient is a 80 year old M with history of chronic combined heart failure with history of chronic combined heart failure, coronary artery disease status post 5 vessel CABG in 2017 came to ED with shortness of breath progressively worsening for about 10 days and palpitation consistent with acute on chronic heart failure with A. fib with RVR 1. Acute on chronic combined heart failure secondary to A. fib with RVR: Patient is being admitted in PCU. Serial cardiac enzymes. Continue IV Cardizem drip and oral metoprolol 50 mg twice daily. Continue Eliquis 2.5 mg p.o. twice daily. Started on Lasix 40 mg IV twice daily. On heart failure core measures including fluid restriction, strict intake and output, 2 g salt, PT and OT. Patient got dehydrated on Lasix 40 mm IV was over diuresed. Lasix was held intermittently and then resume at home. The patient was educated to titrate Lasix as per the fluid status, urine output, shortness of breath and dizziness. Patient is on atorvastatin baby aspirin and potassium supplement. Patient is allergic to SHASHA/ARB. Patient was on amiodarone which was discontinued during previous admission secondary to acute liver injury. Recent echo in February 2020 reported as below Interpretation Summary Normal LV size. Mild concentric left ventricular hypertrophy. Left ventricular systolic function is normal. The estimated ejection fraction is 45 %. Stage 3 diastolic dysfunction. Pulmonary artery systolic pressure is 44 mmHg. Mild pulmonary hypertension. Mildly elevated troponin probably secondary to A. fib with RVR: Serial troponins are mildly elevated 0.20, 0.25, 0.239, flat and indeterminate. Most probably secondary to A. fib with RVR. Patient does not have chest pain, shortness of breath or palpitation. 2. Atrial fib with RVR: During previous admission in March 2020 patient required cardioversion. Patient still in A. fib but heart rate controlled on metoprolol 100 mg twice daily and Cardizem CD 120 mg twice daily. Prescription is given. 3. CKD stage III: Current BUN 31, creatinine is 1.58. Last creatinine was 1.74 in May 2029 but her baseline creatinine runs around 1.7-2.0. On March 2020, renal US shows normal kidneys no hydronphrosis. Kidney function is stable. 4. VTE prophylaxis on Eliquis Discharge medication reconciliation done. Discharge follow-up instructions completed. Discharge process discussed with the patient and all questions were answered to patient's satisfaction. Prescription sent to the patient's pharmacy. Discussed with Dr. valero. Lasix was kept at 60 mg p.o. twice daily with instruction of additional 40 mg dose in the afternoon if you have increased swelling or weight gain greater than 3 pounds in 1 day or 5 pounds in 1 week. Total time spent, exact 35 minutes on discharge meds reconciliation, examination, coordination of care with nurses and ancillary staff, review of imaging and blood test and discussion with the patient on follow-up instructions Patient Problems: Active and Suspected Problems (Last Reviewed 05/01/20 @ 14:[address] Jason Valero MD) Congestive heart failure (Acute) Elevated troponin (Acute) Atrial fibrillation with rapid ventricular response (Acute) Acute on chronic systolic and diastolic heart failure, NYHA class 2 (Acute) Subjective: Follow-up for CHF exacerbation with Dennis ivan with RVR Objective: Patient is doing diffuse RVR but heart rate is controlled. Patient blood pressure was low and was over diuresed. Today, heart rate and blood pressures are controlled. Physical exam General: Alert, awake, oriented x3, Cooperative HEENT: Atraumatic, PERRLA, EOMI, Normocephalic Oral: No Gingival or Mucosal Lesions/ Ulcerations Neck: Supple, No JVD, Negative Carotid Bruits Lungs: Air entry diminished in bilateral lung bases. No crepitation/rhonchi. No tachypnea or hypoxia. Cardiovascular: Irregular rate and rhythm rhythm, heart rate in 80s to 90. Normal S1, Normal S2, No murmurs Abdomen: Bowel Sounds Present, Soft, Non Tender, Non-Distended : No renal angle tenderness. No suprapubic tenderness. Extremities: No edema, Capillary Refill Less than 3 Seconds Skin: No rashes, No breakdown Musculoskeletal: No Tenderness to Palpation of Joints or Extremities Neurological: Cranial nerves II-XII grossly intact, Deep Tendon Reflexes 2+/4 and Symmetrical, Neuro grossly intact Psych/Mental Status: Normal Affect, Appropriate. - Physical Exam Vitals/I&O's: Vital Signs Temp Pulse Resp BP Pulse Ox 98.2 F 124 H 16 108/64 95 07/14/20 08:01 07/14/20 09:44 07/14/20 08:01 07/14/20 09:44 07/14/20 08:01 Oxygen Flow Rate (L/min) 2 Oxygen Delivery Method Room Air Weight: 154 lb 1.65 oz Body Mass Index (BMI) 23.3 Intake and Output for Last 24 Hours 07/12/20 07/13/20 07/14/20 23:59 23:59 23:59 Intake Total 643.17 / 653.17 896.25 / 1056.25 210 / 210 Balance 643.17 / 653.17 896.25 / 1056.25 210 / 210 Laboratory Results 07/14/20 09:02: Phosphorus 2.9, Magnesium 1.8 Current Medications Acetaminophen (Tylenol) 650 mg PO Q6H PRN PRN PRN Reason: Pain Score 1-10/Temp > 100.7 F Albuterol Sulfate (Ventolin Aerosols) 2.5 mg INHALATION Q2H PRN PRN PRN Reason: SOB/Wheezing Apixaban (Eliquis) 2.5 mg PO BID [facility] Last Admin: 07/14/20 08:48 Dose: 2.5 mg Documented by: Aspirin (Aspirin, Baby) 81 mg PO DAILY@0800 [facility] Last Admin: 07/14/20 08:49 Dose: 81 mg Documented by: Atorvastatin Calcium (Lipitor) 40 mg PO DAILY [facility] Last Admin: 07/14/20 08:49 Dose: 40 mg Documented by: Calcium Carbonate (Tums) 1,000 mg PO Q6H PRN PRN PRN Reason: HEARTBURN OR INDIGESTION Last Admin: 07/12/20 20:46 Dose: 1,000 mg Documented by: Furosemide (Lasix) 40 mg IV BIDLX [facility] Last Admin: 07/14/20 08:47 Dose: 40 mg Documented by: Glimepiride (Amaryl) 2 mg PO DAILYCM [facility] Last Admin: 07/14/20 08:49 Dose: 2 mg Documented by: Sodium Chloride () 250 mls @ 15 mls/hr IV .[id number] PRN PRN Reason: Saline Flush Sodium Chloride () 250 mls @ 15 mls/hr IV .[id number] PRN PRN Reason: Additional IVPB Infusion Potassium Chloride () 10 meq in 100 mls @ 100 mls/hr IV BOLUS Q1H [facility] Stop: 07/14/20 11:59 Last Admin: 07/14/20 09:21 Dose: 100 mls/hr Documented by: Metoprolol Tartrate (Lopressor (Beta Ivy)) 100 mg PO BID [facility] Last Admin: 07/14/20 08:48 Dose: 100 mg Documented by: Mirtazapine (Remeron) 15 mg PO QHS [facility] Last Admin: 07/13/20 20:13 Dose: 15 mg Documented by: Morphine Sulfate () 2 mg IV Q3H PRN PRN PRN Reason: Pain Score 6-10/10 Nitroglycerin (Nitrostat) 0.4 mg SUBLINGUAL Q5M PRN PRN Reason: CARDIAC/CHEST PAIN Nutritional Formula (Lactose Free) (Glucerna Shake) 120 ml PO TIDCM [facility] Last Admin: 07/14/20 08:47 Dose: Not Given Documented by: Oxycodone HCl (Oxyir) 5 mg PO Q4H PRN PRN PRN Reason: Pain Score 4-5/10 Prochlorperazine Edisylate (Compazine Iv) 5 mg IV Q4H PRN PRN PRN Reason: Breakthrough Nausea/Vomiting Psyllium Hydrophilic Mucilloid (Metamucil) 1 packet PO DAILY [facility] Last Admin: 07/14/20 08:04 Dose: Not Given Documented by: Senna/Docusate Sodium (Senokot-S, Melissa-Colace) 2 tablet PO BID PRN PRN PRN Reason: Constipation Sodium Chloride () 10 - 40 ml IV UD PRN PRN Reason: SALINE FLUSH Last Admin: 07/14/20 08:47 Dose: 10 ml Documented by: Home Medications: Medications to take at Discharge cholecalciferol (vitamin D3) 125 mcg (5,000 unit) capsule 5,000 unit PO DAILY 02/16/19 glimepiride 4 mg tablet 2 mg PO DAILY tab 09/26/19 Aspirin E.C. [Ecotrin] 81 mg PO DAILY@0800 #30 tab 03/29/20 Mirtazapine [Remeron] 15 mg PO QHS #30 tab 04/02/20 apixaban 2.5 mg tablet 2.5 mg PO BID #180 tab 04/11/20 atorvastatin 40 mg tablet 40 mg PO DAILY tab 04/11/20 Diltiazem CD [Cardizem CD] 120 mg PO Q12H #60 cap 07/15/20 Furosemide [Lasix] 60 mg PO BID #60 tab 07/15/20 Metoprolol Tartrate [Lopressor (beta ivy)] 100 mg PO BID #60 tab 07/15/20 Potassium Chloride [Klor-Con 10] 20 meq PO BID #0 07/15/20 Following Prescriptions Were Given to Patient: Diltiazem CD [Cardizem CD] 120 mg PO Q12H #60 cap Furosemide [Lasix] 60 mg PO BID #60 tab Transmission Status: Pending to [id number] Metoprolol Tartrate [Lopressor (beta ivy)] 100 mg PO BID #60 tab Primary Care Physician: Abdoulaye Brock MD [Primary Care Provider] - Medical Necessity - Tobacco Use Smoking Status: Never smoker Tobacco Use: Non-smoker Meaningful Use Info Meaningful Use Diagnoses (Choose all that apply): CHF - CHF SHASHA/ARB ordered at discharge?: No Reason SHASHA/ARB not ordered?: Allergy Documented LVEF (%): 45 Inpatient E&M: 34410 Disch Hosp
--- NOTE | 2020-07-15 08:51 | DCINST_ITS ---
- Discharge Diagnoses Current Active Problems: Current Active and Chronic Problems (Last Reviewed 05/01/20 @ 14:[address] Jason Lemus MD) Congestive heart failure (Acute) Elevated troponin (Acute) Atrial fibrillation with rapid ventricular response (Acute) Acute on chronic systolic and diastolic heart failure, NYHA class 2 (Acute) You will use the following diet at home:: Cardiac Your food should be the consistency of: Regular Discharge Activity: May Not Drive Weight Bearing Status: Weight bearing as tolerated Call your doctor if you observe: Fever of 101 or Higher, Coldness, Increased Pain, Numbness or Tingling, Change in Color, Inability to urinate, Inability to have a bowel movement, Shortness of breath, Dizziness, Fainting spells, Swelling in the ankles, Chest pain, Prolonged hiccoughing, Increased palpitations (irregular heartbeat), Calf discomfort, Uncontrolled pain Additional Instructions: Follow-up BMP in 1 week with PCP Allergies/Adverse Reactions: Allergies spironolactone Allergy (Verified 07/12/20 09:49) severe weakness lisinopril Adverse Reaction (Mild, Verified 07/12/20 09:49) Dry cough amiodarone Adverse Reaction (Verified 07/12/20 09:49) toxicity Medications to take at Discharge cholecalciferol (vitamin D3) 125 mcg (5,000 unit) capsule 5,000 unit PO DAILY 02/16/19 glimepiride 4 mg tablet 2 mg PO DAILY tab 09/26/19 Aspirin E.C. [Ecotrin] 81 mg PO DAILY@0800 #30 tab 03/29/20 Mirtazapine [Remeron] 15 mg PO QHS #30 tab 04/02/20 apixaban 2.5 mg tablet 2.5 mg PO BID #180 tab 04/11/20 atorvastatin 40 mg tablet 40 mg PO DAILY tab 04/11/20 Diltiazem CD [Cardizem CD] 120 mg PO Q12H #60 cap 07/15/20 Furosemide [Lasix] 60 mg PO BID #60 tab 07/15/20 Metoprolol Tartrate [Lopressor (beta kelsey)] 100 mg PO BID #60 tab 07/15/20 Potassium Chloride [Klor-Con 10] 20 meq PO BID #0 07/15/20 The following prescriptions were given: Diltiazem CD [Cardizem CD] 120 mg PO Q12H #60 cap Furosemide [Lasix] 60 mg PO BID #60 tab Transmission Status: Pending to [id number] Metoprolol Tartrate [Lopressor (beta kelsey)] 100 mg PO BID #60 tab Primary Care Physician: Abdoulaye Brock MD [Primary Care Provider] - Please follow up with your Primary Care Physician in: in 2 weeks Test Results: Test results from this visit will be discussed in further detail at your follow- up appointment, if applicable. Please Follow Up With: Jason Lemus MD When: in 2 weeks
[2020-07-15] MEDS: Atorvastatin Calcium 40 MG Tablet PO (09:52)
[2020-07-15] MEDS: Aspirin 81 MG TAB.CHEW PO (09:52)
[2020-07-15] MEDS: Na Biphos/Potassium Phosphate PACKET 1 PACKET PO (09:52)
[2020-07-15] MEDS: Glimepiride 2 MG Tablet PO (09:52)
[2020-07-15 09:53] VITALS: BP 106/72; PULSE 89
[2020-07-15] MEDS: APIXABAN 2.5 MG TABLET PO (09:53)
[2020-07-15] MEDS: Metoprolol Tartrate 100 MG Tablet PO (09:53)
--- NOTE | 2020-07-16 13:55 | CASEMGMT ---
GERMÁN RANKIN DC PHONE CALL DC DATE: 07/15/2020 DC Disposition: Home with [facility] Diagnosis on Discharge: CHF LACE/STRATA: 09/20 Prescriptions obtained: yes Intro role of CM to patient via phone. Patient states he is still feeling tired and not himself. Patient states his blood sugar was over 300 this am. He is only on Glimepiride 4 mg daily which he took. GERMÁN RANKIN recommended he repeat his BS tonight and tomorrow am, and if over 300 to notify his PCP. Also reviewed DC instructions, and symptoms including weakness, fever, pain- to update his PCP and he may need an earlier appointment. Patient states his appointment is next week. No care improvement suggestions were given and patient states he appreciated the call and review of his dc instructions. -[facility]: start of care Friday, July 17, 2020. Irma DEJESUS RN ACM
== END 2020-07-15 12:00 | disposition home health service (06) | DRG 308 ==
LOC: ED 12:32 → PCU 14:18
PROVIDERS: Admitting Provider Internal Medicine; Emergency Provider Emergency Medicine; PCP Family Medicine; Visit Provider Internal Medicine
DX: I48.0 Paroxysmal atrial fibrillation (principal); I50.43 Acute on chronic combined systolic (congestive) and diastolic (congestive) heart failure; I13.0 Hypertensive heart and chronic kidney disease with heart failure and stage 1 through stage 4 chronic kidney disease, or unspecified chronic kidney disease; I25.119 Atherosclerotic heart disease of native coronary artery with unspecified angina pectoris; I25.5 Ischemic cardiomyopathy; I27.21 Secondary pulmonary arterial hypertension; E78.5 Hyperlipidemia, unspecified; N18.3 Chronic kidney disease, stage 3 (moderate); E11.22 Type 2 diabetes mellitus with diabetic chronic kidney disease; I25.2 Old myocardial infarction; Z95.1 Presence of aortocoronary bypass graft; I44.7 Left bundle-branch block, unspecified
CPT/HCPCS: 36415; 71045; 80048; 80061; 80076; 83735; 83880; 84100; 84443; 84484; 85025; 85610; 85730; 93005; 97162; 97166; 97530; 97802; 99251; 99285; J7040; A4216; G0463; J1940

== ENCOUNTER 2020-07-17 13:02 | Inpatient (IN) | payer MEDICARE, SELFPAY ==
[2020-07-12 13:44] VITALS: BMI 23.3
[2020-07-17] VITALS (10 sets, daily range): BP systolic 106–127; BP diastolic 62–102; PULSE 77–94; RESP 16–27; TEMP 36.5–36.8; O2SAT 92–97; BMI 24.0; BMI 22.7; BMI 22.8
--- NOTE | 2020-07-17 13:28 | EKG12_ITS ---
Test Reason : PALPS Blood Pressure : / mmHG Vent. Rate : 087 BPM Atrial Rate : 087 BPM P-R Int : 000 ms QRS Dur : 142 ms QT Int : 422 ms P-R-T Axes : 000 002 185 degrees QTc Int : 507 ms Atrial fibrillation Left bundle branch block Abnormal ECG Confirmed by CRYS MONTOYA, MELI ([id number]), social media editor JR SEVERINO ([id number]) on 07/24/2020 8:59:07 AM Referred By: LARISA Confirmed By:JUMA SPANGLER MD
--- NOTE | 2020-07-17 13:28 | RAD_ITS ---
STUDY: X-RAY CHEST REASON FOR EXAM: Male, 80 years old. Afib TECHNIQUE: PA and lateral views of the chest. COMPARISON: Comparison is made with prior study dated 07/12/2020. FINDINGS: EKG electrodes are seen. Is evidence of vascular congestion and CHF with superimposed bibasilar atelectasis and/or infiltrates worse on the left side. Blunting of both costophrenic angles. Sternal cerclage wires and vascular clips are present from a prior sternotomy and coronary artery bypass graft procedure (CABG). Normal mediastinum and heaven. Normal visualized pulmonary arteries. There is atherosclerotic calcification of the aortic arch with tortuosity. There are diffuse degenerative changes of the visualized thoracic spine. There is degenerative osteoarthritis of the bilateral shoulders. There is no demonstrated abnormality of the visualized soft tissue structures of the upper abdomen. RAD/Chest PA and Lateral IMPRESSION: Prior CABG. Findings in keeping with a CHF and bibasilar atelectasis left greater than right with blunting of both costophrenic angles. Electronically Signed: Manny Valle, at 14:24 EDT , Service support ,
--- NOTE | 2020-07-17 13:37 | ED.VIS.GEN ---
History of Present Illness Chief Complaint: Palpitations Informant: Patient, Family Onset: Today Context: Gradual Onset Narrative: Patient is an 80-year-old male with history of CHF and atrial fibrillation presenting for worsening shortness of breath and fatigue. Patient was discharged from our hospital 3 days ago after 2-day stay. At that time he had acute on chronic systolic and diastolic heart failure as well as A. fib with RVR and elevated troponin. He states they gave him fluids and switch him to Cardizem. He states he slept well last night but today notes he was very short of breath when he woke up. He is also been having increased fluttering in his chest for the past couple days which has been told this is A. fib. He notes the past few days his blood sugars have been very high and it was as high as [address] here today[address] Patient notes he is gained a couple pounds since his discharge from hospital and has been checking his weight daily. He denies any chest pain, fever or cough. He said some chronic nausea which is unchanged. Patient does not wear oxygen at baseline. He is also had a runny nose. Patient uses a cane to walk with at baseline but his son states he should be using a walker. No reported falls. He lives with his elderly . Patient is on Eliquis as well as Lasix. Past Medical History - Allergies and Home Meds Allergies/Adverse Reactions: Allergies spironolactone Allergy (Verified 07/12/20 09:49) severe weakness lisinopril Adverse Reaction (Mild, Verified 07/12/20 09:49) Dry cough amiodarone Adverse Reaction (Verified 07/12/20 09:49) toxicity Primary Care Physician: Abdoulaye Brock MD [Primary Care Provider] - Past Medical History: - - systolic and diastolic heart failure, A. fib, CKD, DM, CAD Surgical History: coronary bypass surgery Smoking Status: Never smoker - Family History Paternal Family History: Family History (Last Reviewed 05/01/20 @ 14:[address] Jason Lemus MD) Sister Diabetes Sister Colon cancer Diabetes CVA (cerebral vascular accident) Sister Diabetes Brother Heart disease Diabetes Family History: Reports: No pertinent history Review of Systems General: Reports: Malaise, - - weight gain . Denies: Chills, Fever, Sweats Eyes: Denies: Visual changes - bilaterally, Diplopia ENT: Denies: Rhinorrhea, Sore throat Cardiovascular: Reports: Palpitations. Denies: Chest pain Respiratory: Reports: Dyspnea. Denies: Cough, Dyspnea on exertion Gastrointestinal: Denies: Abdominal pain, Nausea, Vomiting, Diarrhea, Melena, Hematochezia Genitourinary: Denies: Dysuria, Hematuria, Frequency Musculoskeletal: Reports: Swelling. Denies: Back pain, Extremity Pain Skin: Denies: Rash, Wounds Neurological: Denies: Headache, Weakness, Numbness Physical Exam Vital Signs/Narrative: Vital Signs Temp Pulse Resp BP Pulse Ox 07/17/20 13:02 98.2 F 94 27 H 119/102 H 96 Inital Vital Signs reviewed: Yes General: Well nourished, Well developed, No Acute Distress Head: Normocephalic, Atraumatic Eyes: Perrl, EOMI ENT: Moist mucous membranes, No rhinorrhea Neck: Supple, Nontender Cardiovascular: Regular rate, Regular rhythm, No murmurs Respiratory: Chest nontender, Diminished, Decreased Air Movement, - - Tachypnea . Negative for: Rhonchi, Wheezing, Chest tenderness Abdomen: Soft, Nontender, Nondistended, Normal bowel sounds Back: Nontender, Normal Inspection Extremities: Nontender, No edema Skin: Normal color, No rash Neurological: Alert, Oriented x3, Cranial nerves II-XII grossly intact, Normal Strength, Normal Sensation Psychological: Normal affect, Normal Mood Diagnostic/Tx/Re-eval Chest X-Ray - ED: 2 View, Read by ED Physician, Read by Radiologist, CHF, Left Effusion Clinical Impression(s) from Imaging Studies Chest X-Ray 07/17/20 13:28 IMPRESSION: Prior CABG. Findings in keeping with a CHF and bibasilar atelectasis left greater than right with blunting of both costophrenic angles. Electronically Signed: Manny Valle, at 14:24 EDT , Service support , Laboratory Data 07/17/20 07/17/20 07/17/20 13:40 13:40 13:40 WBC 10.7 RBC 4.38 L Hgb 13.2 Hct 41.0 MCV 93.6 MCH 30.1 MCHC 32.2 RDW Std Deviation 42.1 RDW Coeff of Shashank 12.2 Plt Count 152 MPV 12.5 H Immature Gran % (Auto) 0.400 Neut % (Auto) 74.9 H Lymph % (Auto) 15.3 L [place] % (Auto) 8.8 Eos % (Auto) 0.1 Baso % (Auto) 0.5 Absolute Neuts (auto) 8.0 H Absolute Lymphs (auto) 1.64 Nucleated RBC % 0 Differential Comment SCANNED Sodium 139 Potassium 4.5 Chloride 105 Carbon Dioxide 30.0 Anion Gap 4 L BUN 38 H Creatinine 1.99 H Estim Creat Clear Calc 28.62 Est GFR (MDRD) Af Amer 42 L Est GFR (MDRD) Non-Af 34 L BUN/Creatinine Ratio 19.1 Glucose 307 H Calcium 9.7 Troponin I 0.110 H B-Natriuretic Peptide 1883.1 H - Rhythm Strip Rhythm Strip: A-fib Rate: 87 Ectopy: None - EKG Initial EKG Interpretation: Atrial Fibrillation, LBBB, - - Atrial fibrillation at a rate of 87 Normal axis Left bundle branch block No ST segment changes consistent with ACS - Medical Decision Making Evaluated for progressive shortness of breath as well as palpitations in his chest. He states his been feeling very weak since his discharge from the hospital 3 days ago. Patient just admitted for CHF exacerbation. Patient is on Eliquis and states he is been compliant with all of his medications. He states he has gained weight since his discharge home. On arrival patient is tachypneic on exam and 94%. He was placed on 2 L nasal cannula initially he will he was not hypoxic. Patient is ambulated and dropped down to 74% on room air just by getting out of the bed. Chest x-ray shows recurrent pleural effusion on the left side which I think looks worse. I suspect patient is again fluid overloaded. Patient does have a mild elevation of his creatinine as well. Patient is hyperglycemic with a normal anion gap. He is given 6 units of insulin in the ER for this. Patient is given 40 mg of IV Lasix for likely acute exacerbation of CHF. Patient's proBNP and troponin are elevated with her actually below what he was last week. Patient will be admitted to PCU. He is agreeable with plan. At this time we do not suspect any infectious source as a cause of his shortness of breath and I think this is all cardiac in nature. ED Disposition - Plan for ED Patient: Diagnosis: Acute on chronic systolic and diastolic heart failure, NYHA class 2, Elevated troponin, Left bundle branch block (LBBB), Elevated serum creatinine, Acute respiratory failure with hypoxia Referrals: Abdoulaye Brock MD [Primary Care Provider] -
[2020-07-17 13:48] LABS: Absolute Lymphocyte Count 1.64 X10^3/uL (0.83-4.51); Basophil# 0.05 X10^3/uL; Basophil% 0.5 % (0-1); Eosinophil# 0.01 X10^3/uL; Eosinophils% 0.1 % (0-5); Hemoglobin 13.2 g/dL (13.0-16.5); Lymphocyte # 1.64 X10^3/ul (4.0); Lymphocyte % 15.3 % (19-41); Mean Corp Hgb Conc 32.2 g/dL (32-36); Mean Corpuscular Hgb 30.1 pg (27.0-32.0); Mean Corpuscular Volume 93.6 fL (80-94); Mean Platelet Vol. 12.5 fl (6.2-12.0); Monocyte# 0.94 X10^3/uL; Monocyte% 8.8 % (0-10); NRBC Flagged by Analyzer 0 % (0-5); Neutrophil # 8.02 X10^3/uL (2.7-7.7); Neutrophil % 74.9 % (47-70); POSITIVE MORPHOLOGY YES; Platelet Count 152 K/mm3 (150-450); RBC Distribution Width CV 12.2 % (11.6-14.6); RBC Distribution Width SD 42.1 fl (35.1-43.9); Red Blood Count 4.38 M/mm3 (4.6-6.2); White Blood Count 10.7 K/mm3 (4.4-11.0)
[2020-07-17 14:06] LABS: Anion Gap 4 (5-15); BUN 38 mg/dL (7-18); BUN/Creat Ratio 19.1 RATIO (10-20); Calcium,Total 9.7 mg/dL (8.5-10.1); Chloride 105 mmol/L (98-107); Creatinine, Serum 1.99 mg/dL (0.70-1.30); EST Glomerular Filtration Rate 34 mL/min (>60); Est Glom Filt Rate - Afr Amer 42 mL/min (>60); Estimated Creatinine Clearance 28.62 ml/min; Glucose 307 mg/dL (74-106); Potassium 4.5 mmol/L (3.5-5.1); Sodium Level 139 mmol/L (136-145)
[2020-07-17 14:08] LABS: BNP,B-Type NATRIURETIC PEPTIDE 1883.1 pg/mL (0-100)
[2020-07-17 14:14] LABS: Differential Comment SCANNED; Differential Indicated SCAN CRITERIA MET
[2020-07-17] MEDS: Insulin Lispro 100 UNIT/ML INSULN.PEN 6 UNIT SC (14:38)
--- NOTE | 2020-07-17 14:46 | PCM.HP.STD ---
Problem List (1) Elevated troponin Status: Acute (2) Atrial fibrillation with rapid ventricular response Status: Acute (3) Acute on chronic systolic and diastolic heart failure, NYHA class 2 Status: Acute (4) Atherosclerosis of coronary artery of [place] heart with angina pectoris Status: Chronic Qualifiers: Coronary Disease-Associated Artery/Lesion type: [place] artery Qualified Code(s): I25.119 - Atherosclerotic heart disease of [place] coronary artery with unspecified angina pectoris (5) Paroxysmal atrial fibrillation Status: Chronic (6) Left bundle branch block (LBBB) Status: Chronic (7) Essential (primary) hypertension Status: Chronic (8) Hyperlipidemia Status: Chronic Qualifiers: Hyperlipidemia type: unspecified Qualified Code(s): E78.5 - Hyperlipidemia, unspecified History of Present Illness Date of Admission: 07/17/20 Chief Complaint: Shortness of breath - 1 day. Fatigue - 2 days The patient is a 80 year old M with past medical history of chronic combined CHF, EF 45%, stage 3 diastolic dysfunction, paroxysmal atrial fibrillation, CAD status post CABG was recently admitted on 06/20/20 with acute on chronic combined CHF and A. fib with RVR. Patient was discharged on 07/15/20. Patient stated that he has started with the medication changes that were made. He has been on Lasix 60 mg twice a day. He however has not taken the extra 40 mg of Lasix if needed when he is gained weight. He has gained some weight since discharge. He stated that he has tach also to her a low sodium and fluid restricted diet. He complains of palpitation. Denied any dizziness or syncope or presyncope. He has some chest discomfort .Vitals in the ED showed temperature 98.2 F, heart rate 94, blood pressure 119/102, respiration rate was 27, SPO2 was 96% on room air. Admitting blood pressure WBC count of 10.7, hemoglobin 13.2, platelet count 152, BMP was unremarkable except for BUN of 38, creatinine 1.99. His troponin was 0.110. BN pep was 1883. Blood glucose was 245. Admitting chest x-ray showed acute CHF with bibasilar atelectasis greater on the right. Past Medical History Past Medical History (Chronic Problems): Chronic Problems (Last Reviewed 05/01/20 @ 14:[address] Jason Lemus MD) Atherosclerosis of coronary artery of [place] heart with angina pectoris (Chronic) 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) CABG x 4: COLES-LAD, SVG-D1, SVG to proximal end of SVG to diagonal going to OM 2, and SVG-RPDA 10/30/16 Ischemic cardiomyopathy (Chronic) 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) Diastolic dysfunction (Chronic) Secondary pulmonary arterial hypertension (Chronic) Paroxysmal atrial fibrillation (Chronic) Left bundle branch block (LBBB) (Chronic) Essential (primary) hypertension (Chronic) Hyperlipidemia (Chronic) Medical History: Medical History (Last Reviewed 05/01/20 @ 14:[address] Jason Lemus MD) Atherosclerosis of coronary artery of [place] heart with angina pectoris (Chronic) I25.119 History of non-ST elevation myocardial infarction (NSTEMI) (Resolved) Onset Date: 05/2017 I25.2 Ischemic cardiomyopathy (Chronic) I25.5 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) I50.43 Diastolic dysfunction (Chronic) I51.89 Secondary pulmonary arterial hypertension (Chronic) I27.21 Paroxysmal atrial fibrillation (Chronic) I48.0 Left bundle branch block (LBBB) (Chronic) I44.7 Essential (primary) hypertension (Chronic) I10 Hyperlipidemia (Chronic) E78.5 Barretts esophagus K22.70 Bilateral pleural effusion Onset Date: 11/2019 J90 CKD (chronic kidney disease) N18.9 Prostate cancer C61 Transient ischemic attack G45.9 Type 2 diabetes mellitus E11.9 Acute respiratory failure with hypoxemia (Resolved) J96.01 Dyspnea on exertion (Resolved) R06.09 Shortness of breath (Resolved) R06.02 Allergies spironolactone Allergy (Verified 07/12/20 09:49) severe weakness lisinopril Adverse Reaction (Mild, Verified 07/12/20 09:49) Dry cough amiodarone Adverse Reaction (Verified 07/12/20 09:49) toxicity Home Medications: Ambulatory Orders Medication Instructions Recorded cholecalciferol (vitamin D3) 125 5,000 unit PO DAILY 02/16/19 mcg (5,000 unit) capsule atorvastatin 40 mg tablet 40 mg PO DAILY tab 04/11/20 Furosemide [Lasix] 60 mg PO BID #60 tab 07/15/20 Metoprolol Tartrate [Lopressor 100 mg PO BID #60 tab 07/15/20 (beta kelsey)] Potassium Chloride [Klor-Con 10] 20 meq PO BID #0 07/15/20 Acetaminophen [Tylenol Extra 500 mg PO DAILY PRN PRN 07/17/20 Strength] Apixaban [Eliquis] 2.5 mg PO BID 07/17/20 Aspirin E.C. [Ecotrin] 81 mg PO DAILY@0800 07/17/20 Diltiazem CD [Cardizem CD] 120 mg PO BID 07/17/20 Glimepiride [Amaryl] 2 mg PO DAILY 07/17/20 Surgical History: Surgical History (Last Reviewed 05/01/20 @ 14:[address] Jason Lemus MD) H/O coronary artery bypass surgery (Chronic) Onset Date: 10/30/16 Z95.1 CABG x 4: COLES-LAD, SVG-D1, SVG to proximal end of SVG to diagonal going to OM 2, and SVG-RPDA 10/30/16 History of cardioversion Onset Date: 03/30/20 Z98.890 History of colonoscopy Z98.890 History of dental surgery Z92.89 History of esophagogastroduodenoscopy (EGD) Z98.890 History of left heart catheterization Onset Date: 07/23/18 Z98.890 Grafts Patent History of prostatectomy Z90.79 Surgical History: coronary bypass surgery Psychiatric History: No pertinent psych hx Lives: With Family Smoking Status: Never smoker Tobacco Use: Non-smoker Alcohol: None Drugs: None - *Family History Paternal Family History: Family History (Last Reviewed 05/01/20 @ 14:[address] Jason Lemus MD) Sister Diabetes Sister Colon cancer Diabetes CVA (cerebral vascular accident) Sister Diabetes Brother Heart disease Diabetes History Items: No pertinent history Maternal Family History: Family History (Last Reviewed 05/01/20 @ 14:[address] Jason Lemus MD) Sister Diabetes Sister Colon cancer Diabetes CVA (cerebral vascular accident) Sister Diabetes Brother Heart disease Diabetes History Items: No pertinent history Review of Systems Constitutional: Reports: Weakness, Fatigue. Denies: Anorexia, Chills, Fever, Night Sweats, Malaise, Weight Change Eyes: Denies: Blurred vision, Cataracts, Conjunctivae Inflammation, Pain, Redness, Vision Change HEENT: Denies: Head Aches, Hearing Changes, Sinus Congestion, Sinus Drainage, Sore Throat Cardiovascular: Reports: Palpitations. Denies: Chest Pain, Light Headedness, Orthopnea, Paroxysmal Noc. Dyspnea Respiratory: Reports: Shortness of Breath, Shortness of breath at rest. Denies: Cough, Shortness of breath upon exertion, Sputum production Gastrointestinal: Denies: Abdominal Pain, Nausea, Vomiting Genitourinary: Denies: Dysuria Musculoskeletal: Denies: Joint Pain, Joint Tenderness Skin: Denies: Rash, Wounds Neurological: Denies: Difficulty swallowing, Focal weakness, Numbness, Tingling Psychiatric: Denies: Anxiety, Depression, Homicidal Ideations, Suicidal Ideations Hematologic/ Lymphatic: Denies: Easy Bruising, Easy Bleeding VTE Information - Inpt Only VTE Present on Admission: No VTE Pharm Prophylaxis ordered?: Yes - Physical Exam Vitals/I&O's: Vital Signs Temp Pulse Resp BP Pulse Ox 98.2 F 94 27 H 119/102 H 96 07/17/20 13:02 07/17/20 13:02 07/17/20 13:02 07/17/20 13:02 07/17/20 13:02 Oxygen Delivery Method Room Air Weight: 73.8 kg Body Mass Index (BMI) 24.0 General: Alert, Oriented x3, Cooperative, No apparent distress HEENT: Atraumatic, PERRLA, EOMI, Normocephalic Oral: Moist Mucosa Neck: Supple Lungs: Diminished, Rales - especially at lung bases Cardiovascular: Regular rate, Regular Rhythm, Normal S1, Normal S2, No murmurs Abdomen: Bowel Sounds Present, Soft, Non Tender, Non-Distended Extremities: Edema - bilateral pedal edema +1-2 Skin: No rashes Musculoskeletal: No Tenderness to Palpation of Joints or Extremities Lymphatic: No Cervical, Supraclavicular, or Inguinal Adenopathy Neurological: Cranial nerves II-XII grossly intact, Neuro grossly intact Psych/Mental Status: Normal Affect, Appropriate Laboratory Results 07/17/20 13:40: WBC 10.7, RBC 4.38 L, Hgb 13.2, Hct 41.0, MCV 93.6, MCH 30.1, MCHC 32.2, RDW Std Deviation 42.1, RDW Coeff of Shashank 12.2, Plt Count 152, MPV 12.5 H, Immature Gran % (Auto) 0.400, Neut % (Auto) 74.9 H, Lymph % (Auto) 15.3 L, Dyer % (Auto) 8.8, Eos % (Auto) 0.1, Baso % (Auto) 0.5, Absolute Neuts (auto) 8.0 H, Absolute Lymphs (auto) 1.64, Nucleated RBC % 0, Differential Comment SCANNED 07/17/20 13:40: Sodium 139, Potassium 4.5, Chloride 105, Carbon Dioxide 30.0, Anion Gap 4 L, BUN 38 H, Creatinine 1.99 H, Estim Creat Clear Calc 28.62, Est GFR (MDRD) Af Amer 42 L, Est GFR (MDRD) Non-Af 34 L, BUN/Creatinine Ratio 19.1, Glucose 307 H, Calcium 9.7, Troponin I 0.110 H 07/17/20 13:40: B-Natriuretic Peptide 1883.1 H Assessment/Plan All Active Problems (Last Reviewed 05/01/20 @ 14:[address] Jason Lemus MD) Congestive heart failure (Acute) Elevated troponin (Acute) Atrial fibrillation with rapid ventricular response (Acute) Acute on chronic systolic and diastolic heart failure, NYHA class 2 (Acute) History of non-ST elevation myocardial infarction (NSTEMI) (Resolved 05/2017) Acute respiratory failure with hypoxemia (Resolved) Dyspnea (Resolved) Dyspnea on exertion (Resolved) Shortness of breath (Resolved) 1. Acute on chronic combined CHF, EF 45%, stage III diastolic dysfunction. This has been recurrent. Recently discharged 2 days ago with similar presentation. Admitting BNP up more than 1800. Suspect patient has been going into RVR. Heart rate fluctuating in the ED. Given Lasix 40 mg IV x1, will continue with 40 IV twice daily. This needs to be closely titrated to his renal function. Strict I & Os, daily weights. 2. Paroxysmal atrial fibrillation, heart rate has been fluctuating, EKG shows atrial fibrillation Continue on metoprolol and Cardizem as well as apixaban Cardiology consulted. Discussed with cardiology 3. CAD status post CABG, stable, no acute ST-T changes 4. CATE on CKD stage III, probable cardiorenal, Admitting Cr 1.99, baseline Cr 1.4-1.5 Will give a trial of IV lasix, repeat BMP in am May need titration of lasix to renal function 5. Elevated troponin likely secondary to #1 Cardiac cath in 2018 showed CAD, no major obstructive arteries. Will trend troponins 6. Type II DM, blood sugars are uncontrolled, Continue on home Amaryl, blood glucose check and insulin sliding scale 7. Hypertension/pulmonary her pretension/hyperlipidemia, remained stable, continue Cardizem, atorvastatin 8. DVT prophylaxis with Eliquis 9. CODE STATUS - full code I discussed and explained in details the various types of CODE STATUS-full code, DNR CCA, DNR CC. Patient said he was undecided for now. He knows he does not want to be on life support long-term. He wants to be full code for now. Time spent discussing CODE STATUS 17 minutes Inpatient E&M: 44595 Init Hosp L3 Procedures: 11118 Advncd Care Plan 30 Min
[2020-07-17] MEDS: Furosemide 40 MG/4 ML Vial IV (15:16)
[2020-07-17] MEDS: Ondansetron 4 MG/2 ML Vial IV (15:32)
--- NOTE | 2020-07-17 17:01 | EKG12_ITS ---
Test Reason : SHAI Blood Pressure : / mmHG Vent. Rate : 041 BPM Atrial Rate : 042 BPM P-R Int : 000 ms QRS Dur : 144 ms QT Int : 562 ms P-R-T Axes : 000 001 179 degrees QTc Int : 463 ms Atrial Fibrillation with slow ventricular response Left bundle branch block Abnormal ECG When compared with ECG of 18-JUL-2020 12:17, MANUAL COMPARISON REQUIRED, DATA IS UNCONFIRMED Confirmed by CRYS MONTOYA, MELI ([id number]), photography editor JR SEVERINO ([id number]) on 07/24/2020 9:14:31 AM Referred By: LITZY Confirmed By:JUMA SPANGLER MD
[2020-07-17] MEDS: Metoprolol Tartrate 100 MG Tablet PO (17:28)
[2020-07-17 17:30] LABS: Bedside Glucose 245 mg/dL (70-110)
[2020-07-17 19:06] LABS: Thyroid Stim Hormone (TSH) 0.97 uIU/mL (0.358-3.74)
[2020-07-17] MEDS: dilTIAZem CD 120 MG Capsule PO (21:43)
[2020-07-17] MEDS: APIXABAN 2.5 MG TABLET PO (21:43)
[2020-07-17] MEDS: Atorvastatin Calcium 40 MG Tablet PO (21:43)
[2020-07-17] MEDS: Insulin Lispro 100 UNIT/ML INSULN.PEN SC (21:43)
[2020-07-17 21:56] LABS: Bedside Glucose 204 mg/dL (70-110)
[2020-07-18] VITALS (20 sets, daily range): BP systolic 107–128; BP diastolic 63–82; PULSE 52–110; RESP 15–24; TEMP 36.3–36.8; O2SAT 91–97
[2020-07-18 04:36] LABS: Urine Sodium 41 mmol/L (Not Establ.)
[2020-07-18 04:37] LABS: Urea Nitrogen, Urine 597 mg/dL (NO RANGE EST.)
[2020-07-18 05:26] LABS: Absolute Lymphocyte Count 1.69 X10^3/uL (0.83-4.51); Absolute Neutrophil Count 5.4 X10^3/uL (2.0-7.7); Basophil# 0.04 X10^3/uL; Basophil% 0.5 % (0-1); Eosinophil# 0.02 X10^3/uL; Eosinophils% 0.3 % (0-5); Hematocrit 41.2 % (40-54); Hemoglobin 12.6 g/dL (13.0-16.5); Lymphocyte # 1.69 X10^3/ul (4.0); Lymphocyte % 21.7 % (19-41); Mean Corp Hgb Conc 30.6 g/dL (32-36); Mean Corpuscular Hgb 29.3 pg (27.0-32.0); Mean Corpuscular Volume 95.8 fL (80-94); Mean Platelet Vol. 12.4 fl (6.2-12.0); Monocyte# 0.67 X10^3/uL; Monocyte% 8.6 % (0-10); NRBC Flagged by Analyzer 0 % (0-5); Neutrophil # 5.36 X10^3/uL (2.7-7.7); Neutrophil % 68.8 % (47-70); Platelet Count 145 K/mm3 (150-450); RBC Distribution Width CV 12.2 % (11.6-14.6); RBC Distribution Width SD 42.6 fl (35.1-43.9); White Blood Count 7.8 K/mm3 (4.4-11.0)
[2020-07-18 05:43] LABS: AST(SGOT) 19 U/L (15-37); Alanine Aminotransfer ALT/SGPT 35 U/L (16-61); Albumin, Serum 3.3 g/dL (3.2-5.0); Alkaline Phosphatase 90 U/L (45-117); Anion Gap 3 (5-15); BUN 34 mg/dL (7-18); BUN/Creat Ratio 19.2 RATIO (10-20); Calcium,Total 9.3 mg/dL (8.5-10.1); Chloride 105 mmol/L (98-107); Creatinine, Serum 1.77 mg/dL (0.70-1.30); EST Glomerular Filtration Rate 39 mL/min (>60); Est Glom Filt Rate - Afr Amer 48 mL/min (>60); Globulin 3.4 g/dL (2.2-4.2); Glucose 140 mg/dL (74-106); Protein, Total 6.7 g/dL (6.4-8.2); Sodium Level 141 mmol/L (136-145)
--- NOTE | 2020-07-18 05:55 | EKG12_ITS ---
Test Reason : POST CARDIOVERSION Blood Pressure : / mmHG Vent. Rate : 072 BPM Atrial Rate : 072 BPM P-R Int : 130 ms QRS Dur : 134 ms QT Int : 446 ms P-R-T Axes : 019 009 200 degrees QTc Int : 488 ms Sinus rhythm with Premature supraventricular complexes Left bundle branch block Abnormal ECG When compared with ECG of 18-JUL-2020 05:05, MANUAL COMPARISON REQUIRED, DATA IS UNCONFIRMED Confirmed by CRYS MONTOYA, MELI ([id number]), assignment desk editor JR SEVERINO ([id number]) on 07/24/2020 9:15:55 AM Referred By: DOMINIQUE Confirmed By:JUMA SPANGLER MD
[2020-07-18 07:00] LABS: Bedside Glucose 148 mg/dL (70-110)
--- NOTE | 2020-07-18 07:40 | CON.PCM_ITS ---
Reason for Consult Date of Consultation: 07/18/20 Reason for Consultation: Shortness of breath and irregular heartbeat History of Present Illness: The patient is a 80 year old M with a known history of coronary artery disease status post coronary artery bypass surgery with a left internal mammary artery to the left anterior descending artery, saphenous vein graft to the diagonal branch, saphenous vein graft to obtuse marginal branch from the diagonal branch and saphenous vein graft to the posterior descending artery. He also has a history of hypertension, hyperlipidemia, previous fibrovascular accident. He was admitted to the hospital in March of this year with shortness of breath noted to be in atrial fibrillation as well as congestive heart failure. He was treated with DC cardioversion and discharge. He presented again in May with shortness of breath, and in June. I was informed of his presentation and he was treated with increased diuretic dosage. He was subsequently discharged. 3 days later he presented again. He has had his rate response adjusted with respect to his beta-kelsey and diltiazem. He continues to complain of shortness of breath. I was consulted to see him. His last cardiac catheterization was in 2017 and demonstrated a patent COLES to the LAD, saphenous vein graft to the right coronary artery was patent, saphenous vein graft to the first diagonal branch was patent, and saphenous vein graft to obtuse marginal branch was patent. He did have severe [place] vessel disease. He had a stress test in November 2019 demonstrating no evidence of ischemia, and a stress test here in March 2020 demonstrating no ischemia. His most recent echocardiogram had demonstrated an ejection fraction of 45% with stage III diastolic dysfunction. [] Past Medical History Allergies/Adverse Reactions: Allergies spironolactone Allergy (Verified 07/12/20 09:49) severe weakness lisinopril Adverse Reaction (Mild, Verified 07/12/20 09:49) Dry cough amiodarone Adverse Reaction (Verified 07/12/20 09:49) toxicity Home Medications: Ambulatory Orders Medication Instructions Recorded cholecalciferol (vitamin D3) 125 5,000 unit PO DAILY 02/16/19 mcg (5,000 unit) capsule atorvastatin 40 mg tablet 40 mg PO DAILY tab 04/11/20 Furosemide [Lasix] 60 mg PO BID #60 tab 07/15/20 Metoprolol Tartrate [Lopressor 100 mg PO BID #60 tab 07/15/20 (beta kelsey)] Potassium Chloride [Klor-Con 10] 20 meq PO BID #0 07/15/20 Acetaminophen [Tylenol Extra 500 mg PO DAILY PRN PRN 07/17/20 Strength] Apixaban [Eliquis] 2.5 mg PO BID 07/17/20 Aspirin E.C. [Ecotrin] 81 mg PO DAILY@0800 07/17/20 Diltiazem CD [Cardizem CD] 120 mg PO BID 07/17/20 Glimepiride [Amaryl] 2 mg PO DAILY 07/17/20 Past Medical History (Chronic Problems): Chronic Problems (Last Reviewed 05/01/20 @ 14:[address] Jason Lemus MD) Atherosclerosis of coronary artery of [place] heart with angina pectoris (Chronic) 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) CABG x 4: COLES-LAD, SVG-D1, SVG to proximal end of SVG to diagonal going to OM 2, and SVG-RPDA 10/30/16 Ischemic cardiomyopathy (Chronic) 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) Diastolic dysfunction (Chronic) Secondary pulmonary arterial hypertension (Chronic) Paroxysmal atrial fibrillation (Chronic) Left bundle branch block (LBBB) (Chronic) Essential (primary) hypertension (Chronic) Hyperlipidemia (Chronic) Surgical History: coronary bypass surgery Psychiatric History: No pertinent psych hx - *Family History Paternal Family History: Family History (Last Reviewed 05/01/20 @ 14:[address] Jason Lemus MD) Sister Diabetes Sister Colon cancer Diabetes CVA (cerebral vascular accident) Sister Diabetes Brother Heart disease Diabetes History Items: No pertinent history Maternal Family History: Family History (Last Reviewed 05/01/20 @ 14:[address] Jason Lemus MD) Sister Diabetes Sister Colon cancer Diabetes CVA (cerebral vascular accident) Sister Diabetes Brother Heart disease Diabetes History Items: No pertinent history Lives: With Family Smoking Status: Never smoker Tobacco Use: Non-smoker Alcohol: None Drugs: None Review of Systems - Review of Systems General: Reports: Fatigue, Malaise. Denies: Fever, Night Sweats HEENT: Denies: Vision Change Cardiovascular: Reports: Shortness of Breath, Shortness of Breath at Rest, Shortness of Breath with Exertion, Orthopnea. Denies: Chest Discomfort, PND, Peripheral Edema, Palpitations, Lightheadedness, Dizziness, Near Syncope, Syncope Respiratory: Denies: Cough, Sputum Production, Hemoptysis Gastrointestinal: Denies: Hematemesis, Hematochezia, Melena Genitourinary: Denies: Dysuria, Hematuria Skin: Denies: Rash Neurological: Denies: Dizziness Psychiatric: Reports: Anxiety Endocrine: Denies: Unexplained Weight Loss Subjectve: Elderly man with a flat affect Objective: Vital Signs Temp Pulse Resp BP Pulse Ox 98.2 F 82 20 H 107/65 93 07/18/20 03:30 07/18/20 07:00 07/18/20 03:30 07/18/20 03:30 07/18/20 03:30 Oxygen Flow Rate (L/min) 2 Oxygen Delivery Method Room Air Weight: 154 lb 8.705 oz Body Mass Index (BMI) 22.7 Intake and Output for Last 24 Hours 07/16/20 07/17/20 07/18/20 23:59 23:59 23:59 Intake Total 240 / 720 480 / 480 Output Total 300 / 300 Balance 240 / 720 180 / 180 General: Awake, Alert, Oriented x 3 HEENT: PERRL, EOMI, Sclera Non Icteric Neck: Supple, Good ROM, No Lymph Node Enlargement Lungs: Clear to auscultation Cardiovascular: Irregular Rhythm, Normal S1, Normal S2, No Murmurs, No Rubs, No Gallops Vascular: No Carotid Bruits, Normal Femoral Pulses, Normal Radial Pulses, Normal Dorsalis Pedal Pulse, Normal Posterior Tibial Pulses Abdomen: Bowel Sounds Present, Soft, Non Tender, No HSM, No Organomegaly Extremities: No Cyanosis, No Clubbing, No edema Musculoskeletal: No Erythema Skin: No Rashes Neurological: No Focal Motor or Sensory Deficit 07/17/20 13:40: WBC 10.7, RBC 4.38 L, Hgb 13.2, Hct 41.0, MCV 93.6, MCH 30.1, MCHC 32.2, Plt Count 152, MPV 12.5 H, Immature Gran % (Auto) 0.400, Neut % (Auto) 74.9 H, Lymph % (Auto) 15.3 L, [place] % (Auto) 8.8, Eos % (Auto) 0.1, Baso % (Auto) 0.5, Absolute Neuts (auto) 8.0 H, Nucleated RBC % 0 09/29/20 13:40: Sodium 139, Potassium 4.5, Chloride 105, Carbon Dioxide 30.0, Anion Gap 4 L, BUN 38 H, Creatinine 1.99 H, Est GFR (MDRD) Af Amer 42 L, Est GFR (MDRD) Non-Af 34 L, BUN/Creatinine Ratio 19.1, Glucose 307 H, Calcium 9.7, Troponin I 0.110 H 07/17/20 13:40: B-Natriuretic Peptide 1883.1 H 07/17/20 17:48: Magnesium 2.0, Troponin I 0.110 H 07/17/20 20:40: Troponin I 0.126 H 07/18/20 04:54: WBC 7.8, RBC 4.30 L, Hgb 12.6 L, Hct 41.2, MCV 95.8 H, MCH 29.3, MCHC 30.6 L, Plt Count 145 L, MPV 12.4 H, Immature Gran % (Auto) 0.100, Neut % (Auto) 68.8, Lymph % (Auto) 21.7, [place] % (Auto) 8.6, Eos % (Auto) 0.3, Baso % (Auto) 0.5, Absolute Neuts (auto) 5.4, Nucleated RBC % 0 07/18/20 04:54: Sodium 141, Potassium 4.0, Chloride 105, Carbon Dioxide 33.0 H, Anion Gap 3 L, BUN 34 H, Creatinine 1.77 H, Est GFR (MDRD) Af Amer 48 L, Est GFR (MDRD) Non-Af 39 L, BUN/Creatinine Ratio 19.2, Glucose 140 H, Calcium 9.3, Total Bilirubin 1.20 H Rhythm: EKG: ECHO: Stress Test: Cardiac Cath: PCI: CT Surgery: Holter monitor: EPS: PPM: CXR: Chest CT Scan: Assessment/Plan Shortness of breath * The above is likely secondary to diastolic dysfunction. His echocardiogram demonstrated an ejection fraction of 45% with stage III diastolic dysfunction. I doubt that this is secondary to coronary ischemia. He does have evidence of elevated natruretic peptide level and so he does have a combination of systolic and diastolic heart failure. This is likely precipitated by his atrial fibrillation with a rapid ventricular response rate. * I would recommend that we consider a DC cardioversion again. * We will also adjust his diuretics. 2. Coronary artery disease * He does have known coronary artery disease as evidenced above. His last c atheterization a year and a half ago demonstrated patency of his bypass grafts. He has no acute EKG changes and I would recommend that we continue to manage him with risk factor modification. * A stress test demonstrated no evidence of ischemia and I do not think that coronary disease is playing a role here 3. Atrial fibrillation * His ventricular response rate does not appear to be very well controlled. He needs to continue to be anticoagulated. * He did undergo a DC cardioversion successfully and I would recommend that we repeat this. He has been on his anticoagulation * Hopefully this would help his shortness of breath. 4. Hypertension * Good control he will continue the same medications with appropriately changed doses. * 5. Risk factor modification * He will continue with appropriate risk factor modification. He does in addition appear to be mildly depressed and this may need to be addressed. * * * Thank you for allowing me to participate in the care of your patient. Please don't hesitate to call if any issues arise.
[2020-07-18] MEDS: Aspirin E.C. 81 MG Tablet PO (09:37)
[2020-07-18] MEDS: APIXABAN 2.5 MG TABLET PO ×2 (09:37→21:28)
[2020-07-18] MEDS: dilTIAZem CD 120 MG Capsule PO ×2 (09:37→21:28)
--- NOTE | 2020-07-18 11:39 | CASEMGMT ---
SW completed a Palliative Screening Tool on patient. He scored a 3. SW did not talk with patient about Palliative Care. Nichol PURDY MSW
--- NOTE | 2020-07-18 12:44 | CARDIOVERS ---
Cardioversion Cardioversion: Procedure: DC Cardioversion Indication: Symptomatic atrial fibrillation [] Procedure Note: The patient was brought to the cardiac catheterization lab in the postabsorptive nonsedated state. The patient was seen by [Davidson of the critical care division] . Patient was noted to have reduced global ejection fraction of [45%] and has been on therapeutic anticoagulation. Anterior posterior pads were applied. [200 J] of synchronized DC cardioversion energy were applied after the patient was administered [4mg] of [intravenous Etomidate]. The patient reverted to [sinus rhythm. Plan: Continue current therapy Continue anticoagulation
--- NOTE | 2020-07-18 13:12 | CHAPLAIN ---
Type of Pastoral Visit ___ Initial Visit ___ Follow-up Visit ___ On-call Visit ___ General Patient Visit ___ Spiritual Assessment ___ Family Conference ___ Bereavement ___ Rapid Response ___ Code Blue _x__ Other (describe below) Pastoral Care Referral From _x__ Patient ___ Family ___ Nurse ___ Physician ___ Consultant Internship ___ Physical Laboratory Assistant ___ Other (describe below) Sacrament/Intervention ___ Active listening ___ Anointing ___ Mormonism ___ Bereavement ___ Communion ___ Calista exploration ___ ___ Life review ___ Prayer ___ Reconciliation ___ Sacrament of Sick ___ Supportive presence ___ Wedding _x__ Other (describe below) Pastoral Comments patient was out of the room; son of pt was in room waiting for the pt; offered support and conversation to son; will make a follow up visit later
[2020-07-18] MEDS: Glimepiride 2 MG Tablet PO (13:29)
[2020-07-18] MEDS: Furosemide 40 MG/4 ML Vial IV ×2 (13:30→18:40)
--- NOTE | 2020-07-18 13:30 | PRO.PCM_ITS ---
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 Status: Chronic Qualifiers: Coronary Disease-Associated Artery/Lesion type: king [place] artery Qualified Code(s): I25.119 - Atherosclerotic heart disease of [place] coronary artery with unspecified angina pectoris (6) History of non-ST elevation myocardial infarction (NSTEMI) Status: Resolved (7) H/O coronary artery bypass surgery Status: Chronic Comment: CABG x 4: COLES-LAD, SVG-D1, SVG to proximal end of SVG to diagonal going to OM 2, and SVG-RPDA 10/30/16 (8) Ischemic cardiomyopathy Status: Chronic (9) Diastolic dysfunction Status: Chronic (10) Secondary pulmonary arterial hypertension Status: Chronic (11) Paroxysmal atrial fibrillation Status: Chronic (12) Left bundle branch block (LBBB) Status: Chronic (13) Essential (primary) hypertension Status: Chronic (14) Hyperlipidemia Status: Chronic Qualifiers: Hyperlipidemia type: unspecified Qualified Code(s): E78.5 - Hyperlipidemia, unspecified Procedure Report Date of Procedure: 07/18/20 - Conscious sedation CONSCIOUS SEDATION REPORT BRIEF HISTORY OF PRESENT ILLNESS: The patient is an 80-year-old female who presented to [facility] for an elective outpatient cardioversion due to underlying atrial fibrillation. The patient reports no PO intake since midnight. The patient does not have a history of obstructive sleep apnea. The patient reports no history of smoking and COPD. The patient denies any recent constitutional symptoms such as fevers, chills, nausea or vomiting. The patient denies previous anesthetic complications. Patient did have a previous cardioversion in March 2020 and tolerated well. Patient's ejection fraction has improved from 29% to 45% since that time. Patient is currently anticoagulated with Eliquis. PHYSICAL EXAMINATION: VITAL SIGNS: Reviewed and were acceptable. GENERAL: The patient is a male, in no apparent distress, speaking in full sentences. HEENT: Normocephalic, atraumatic. Mucous membranes are moist and pink. Good mouth opening noted. Trachea is midline. Good neck mobility. MP II CHEST: S1, S2 irregularly irregular. No murmurs, rubs or gallops were noted. LUNGS: Clear to auscultation bilaterally without appreciable wheezes, rales or rhonchi. ABDOMEN: Soft, nontender, nondistended. Positive bowel sounds. EXTREMITIES: There is no clubbing, cyanosis or edema. ASA Class: II DESCRIPTION OF PROCEDURE: After confirmation of informed consent, the patient's anesthesia plan was reviewed in detail. Etomidate was chosen. Risks and benefits were reviewed and the patient agreed to proceed. At 12:14 PM, the patient was given 4 mg of etomidate. The patient achieved an appropriate level of sedation and received 1 attempt synchronized cardioversion, at [address] Lemus at the bedside. This was successful in achieving normal sinus rhythm. The patient was monitored until 12:30 PM, at which time the patient reached their baseline mental status and function. The patient tolerated the procedure well. COMPLICATIONS: None ESTIMATED BLOOD LOSS: None RECOMMENDATIONS: Okay to recover in usual fashion. [id number]: Other Procedure See Report - [id number] - 16 min
[2020-07-18] MEDS: 0.9% Saline Lock 10 ML Syringe IV ×3 (13:31→21:39)
[2020-07-18 14:07] LABS: Bedside Glucose 121 mg/dL (70-110)
--- NOTE | 2020-07-18 14:44 | CHAPLAIN ---
Type of Pastoral Visit ___ Initial Visit _x__ Follow-up Visit ___ On-call Visit ___ General Patient Visit ___ Spiritual Assessment ___ Family Conference ___ Bereavement ___ Rapid Response ___ Code Blue ___ Other (describe below) Pastoral Care Referral From _x__ Patient ___ Family ___ Nurse ___ Physician ___ Educational Therapy Teacher ___ Fraud Investigator ___ Other (describe below) Sacrament/Intervention _x__ Active listening ___ Anointing ___ Evangelical ___ Bereavement ___ Communion _x__ Calista exploration ___ ___ Life review _x__ Prayer ___ Reconciliation ___ Sacrament of Sick _x__ Supportive presence ___ Wedding ___ Other (describe below) Pastoral Comments
--- NOTE | 2020-07-18 15:26 | CASEMGMT ---
Readmission chart review: Pt was initially admitted 07/12-07/15/2020 for CHF exacerbation, Afib RVR. Pt was already current with [facility] CCN and [facility] was added at d/c for SN, PT/OT. Pt then returned to [facility] ED 07/17/2020 for Acute CHF, Afib RVR again. Pt states gained 6lbs since discharge. [facility] was unable to do start of care as pt returned prior. CCN was at home and called EMS for pt d/t bradycardia, lethargy and SOB. Pt readmitted for CHF/Afib RVR and had cardioversion scheduled for 07/18/2020. HHC order placed again as new order needed as start of care was not completed. CM to follow for any further discharge planning/needs. Isaias DUNLAP CM
[2020-07-18] MEDS: Sertraline 50 MG Tablet 25 MG PO (16:22)
[2020-07-18] MEDS: Insulin Lispro 100 UNIT/ML INSULN.PEN SC ×2 (16:29→21:28)
[2020-07-18 17:36] LABS: Bedside Glucose 201 mg/dL (70-110)
[2020-07-18] MEDS: MethylPREDNISolone Acetate 80 MG/ML Vial IM (17:49)
--- NOTE | 2020-07-18 18:09 | PN_ITS ---
Subjective: Patient was seen and examined today, he underwent successful cardioversion today, I had a request from cardiology to place patient on an antidepressant, cardiology discussed this with the patient he agreed to take an antidepressant. I had a discussion with the patient this afternoon which was fairly lengthy about his chronic pain, he has spinal stenosis and sees pain management and has been getting epidural injections/? nerve blocks from Dr. Christiansen. He states that they do not seem to help. He is having problems ambulating at times. I asked him if he would agree to trying an injection of Depo-Medrol IM to see if this would help his pain-he consented to this, I also talked about placing him on low-dose gabapentin- patient was on a medication from pain management before which caused extreme drowsiness and sleepiness-this may have been gabapentin or Lyrica. I have decided to place the patient on 100 mg of gabapentin at night before bedtime, if he tolerates this, I will place him on 1 twice a day. I talked with him about going to a spinal surgeon for an opinion whether surgery could help him. He sounds like he would like to pursue this option. - Physical Exam Vitals/I&O's: Vital Signs Temp Pulse Resp BP Pulse Ox 98.1 F 70 17 120/72 95 07/18/20 17:45 07/18/20 17:45 07/18/20 17:45 07/18/20 17:45 07/18/20 17:45 Oxygen Flow Rate (L/min) 2 Oxygen Delivery Method Room Air Weight: 70.1 kg Body Mass Index (BMI) 22.7 Intake and Output for Last 24 Hours 07/16/20 07/17/20 07/18/20 23:59 23:59 23:59 Intake Total 240 / 720 830 / 830 Output Total 600 / 600 Balance 240 / 720 230 / 230 General: Alert, Oriented x3, Cooperative, No apparent distress, Well developed, Well nourished HEENT: Atraumatic, PERRLA, EOMI, Normocephalic Oral: Moist Mucosa Neck: Supple, Trachea Midline, Thyroid Normal Size and Texture Lungs: Clear to auscultation, Normal air movement, No rhonchi, No wheeze Cardiovascular: Regular rate, Regular Rhythm, Normal S1, Normal S2, No murmurs, PMI Normal, No rub noted, No Gallop Abdomen: Bowel Sounds Present, Soft, Non Tender, Non-Distended, No hernias noted Extremities: No clubbing, No cyanosis, Capillary Refill Less than 3 Seconds Skin: No rashes, No breakdown Musculoskeletal: No Tenderness to Palpation of Joints or Extremities Neurological: Cranial nerves II-XII grossly intact, Neuro grossly intact, Muscle tone normal, Sensory exam intact to light touch and pain Psych/Mental Status: Normal Affect, Appropriate, Alert and oriented to time, place, person, mood and affect Laboratory Results 07/17/20 17:48: Magnesium 2.0, Troponin I 0.110 H, TSH 0.97 07/17/20 20:40: Troponin I 0.126 H 07/17/20 21:37: POC Glucose 204 H 07/18/20 04:00: Urine Creatinine 64.50 07/18/20 04:00: Urine Urea Nitrogen 597 07/18/20 04:00: Ur Random Sodium 41 07/18/20 04:54: WBC 7.8, RBC 4.30 L, Hgb 12.6 L, Hct 41.2, MCV 95.8 H, MCH 29.3, MCHC 30.6 L, RDW Std Deviation 42.6, RDW Coeff of Shashank 12.2, Plt Count 145 L, MPV 12.4 H, Immature Gran % (Auto) 0.100, Neut % (Auto) 68.8, Lymph % (Auto) 21.7, [place] % (Auto) 8.6, Eos % (Auto) 0.3, Baso % (Auto) 0.5, Absolute Neuts (auto) 5.4, Absolute Lymphs (auto) 1.69, Nucleated RBC % 0 07/18/20 04:54: Sodium 141, Potassium 4.0, Chloride 105, Carbon Dioxide 33.0 H, Anion Gap 3 L, BUN 34 H, Creatinine 1.77 H, Estim Creat Clear Calc 31.90, Est GFR (MDRD) Af Amer 48 L, Est GFR (MDRD) Non-Af 39 L, BUN/Creatinine Ratio 19.2, Glucose 140 H, Calcium 9.3, Total Bilirubin 1.20 H, AST 19, ALT 35, Alkaline Phosphatase 90, Total Protein 6.7, Albumin 3.3, Globulin 3.4, Albumin/Globulin Ratio 1.0 07/18/20 06:12: POC Glucose 148 H 07/18/20 13:01: POC Glucose 121 H 07/18/20 16:28: POC Glucose 201 H Current Medications Acetaminophen (Tylenol) 650 mg PO Q6H PRN PRN PRN Reason: Pain Score 1-10/Temp > 100.7 F Apixaban (Eliquis) 2.5 mg PO BID [facility] Last Admin: 07/18/20 09:37 Dose: 2.5 mg Documented by: Aspirin (Ecotrin) 81 mg PO DAILY@0800 [facility] Last Admin: 07/18/20 09:37 Dose: 81 mg Documented by: Atorvastatin Calcium (Lipitor) 40 mg PO QHS [facility] Last Admin: 07/17/20 21:43 Dose: 40 mg Documented by: Dextrose (D50w Syringe) 0 gm IV X1 PRN; Protocol PRN Reason: Hypoglycemia Diltiazem HCl (Cardizem Cd) 120 mg PO BID [facility] Last Admin: 07/18/20 09:37 Dose: 120 mg Documented by: Furosemide (Lasix) 40 mg IV BID@1000,1800 [facility] Last Admin: 07/18/20 13:30 Dose: 40 mg Documented by: Gabapentin (Neurontin) 100 mg PO QHS [facility] Glimepiride (Amaryl) 2 mg PO DAILYCM [facility] Last Admin: 07/18/20 13:29 Dose: 2 mg Documented by: Glucagon () 1 mg IM .X1 PRN PRN Reason: Hypoglycemia Sodium Chloride () 250 mls @ 15 mls/hr IV .[id number] PRN PRN Reason: Saline Flush Sodium Chloride () 250 mls @ 15 mls/hr IV .[id number] PRN PRN Reason: Additional IVPB Infusion Sodium Chloride () 500 mls @ 0 mls/hr IV .Q0M [facility] Insulin Human Lispro (Humalog Kwikpen (Bkc)) 0 unit SC ACHS [facility]; Protocol Last Admin: 07/18/20 16:29 Dose: 1 units Documented by: Magnesium Hydroxide (Milk Of Magnesia) 30 ml PO DAILY PRN PRN PRN Reason: Constipation Metoprolol Tartrate (Lopressor (Beta Ivy)) 100 mg PO BID [facility] Last Admin: 07/18/20 09:36 Dose: Not Given Documented by: Nitroglycerin (Nitrostat) 0.4 mg SUBLINGUAL Q5M PRN PRN Reason: CARDIAC/CHEST PAIN Ondansetron HCl (Zofran) 4 mg IV Q8H PRN PRN PRN Reason: NAUSEA/VOMITING Potassium Chloride (Potassium Chloride) 10 meq PO BIDCM CUAUHTEMOC Sertraline HCl (Zoloft) 25 mg PO DAILY CAUUHTEMOC Sodium Chloride () 10 - 40 ml IV UD PRN PRN Reason: SALINE FLUSH Last Admin: 07/18/20 13:31 Dose: 10 ml Documented by: Medical Necessity - Tobacco Use Smoking Status: Never smoker Tobacco Use: Non-smoker Assessment/Plan All Active Problems (Last Reviewed 05/01/20 @ 14:[address] Jason Lemus MD) Congestive heart failure (Acute) Elevated troponin (Acute) Atrial fibrillation with rapid ventricular response (Acute) Acute on chronic systolic and diastolic heart failure, NYHA class 2 (Acute) History of non-ST elevation myocardial infarction (NSTEMI) (Resolved 05/2017) Acute respiratory failure with hypoxemia (Resolved) Dyspnea (Resolved) Dyspnea on exertion (Resolved) Shortness of breath (Resolved) #1 acute on chronic diastolic congestive heart failure-recent EF was 45%, continue present medications per cardiology #2 paroxysmal atrial fibrillation-now converted by cardioversion to sinus rhythm #3 spinal stenosis-I gave the patient an injection of Depo-Medrol 80 mg-this may spike his sugars-he is aware of this. I also placed him on gabapentin 100 mg nightly-this will be increased as tolerated. #4 chronic depression secondary to multiple medical problems-I will start the patient on Zoloft 25 mg daily today, if he tolerates this he will be increased to 50 mg daily. #5 type 2 diabetes-blood sugars will be monitored #6 coronary artery disease #7 essential hypertension #8 chronic kidney disease stage III-labs will be monitored Inpatient E&M: 04516 Subs Hosp L2
[2020-07-18] MEDS: Atorvastatin Calcium 40 MG Tablet PO (21:29)
[2020-07-18] MEDS: Gabapentin 100 MG Capsule PO (21:29)
[2020-07-18] MEDS: Metoprolol Tartrate 100 MG Tablet PO (21:29)
--- NOTE | 2020-07-18 21:34 | NURSING ---
Addendum entered by Tejal Wall 07/18/20 21:46: Pt also developed increased work of breathing. Audible wheeze noted. 2L nasal cannula applied. Will continue to monitor. Original Note: Immediately after pt took HS pills, he began dry-heaving. Pt did not regurgitate any pills. Giving PRN Zofran for nausea at this time.
[2020-07-18] MEDS: Ondansetron 4 MG/2 ML Vial IV (21:39)
[2020-07-18 23:50] LABS: Bedside Glucose 224 mg/dL (70-110)
[2020-07-19] VITALS (42 sets, daily range): BP systolic 76–126; BP diastolic 39–96; PULSE 35–71; RESP 13–23; TEMP 35.4–36.4; O2SAT 90–100
--- NOTE | 2020-07-19 | NURSING ---
SUSTAINABLE DEVELOPMENT POLICY ANALYST reported pt c/o dizziness/nausea/sweating. This RN to room to assess pt. Pt dry-heaving; but not brining anything up. Pt visually diaphoretic. VS completed. Pt reports when he was here and March and cardioverted, he experienced this nausea as well.
[2020-07-19] MEDS: proCHLORPERazine 10 MG/2 ML Vial 5 MG IV ×2 (01:05→12:17)
[2020-07-19] MEDS: 0.9% Saline Lock 10 ML Syringe IV ×5 (01:11→12:18)
[2020-07-19 02:15] LABS: Bedside Glucose 216 mg/dL (70-110)
--- NOTE | 2020-07-19 02:20 | RAD_ITS ---
STUDY: X-RAY CHEST REASON FOR EXAM: Male, 80 years old. SOB -- ACUTE CHF TECHNIQUE: Single AP portable view of the chest. COMPARISON: 07/17/2020. FINDINGS: There is interstitial prominence bilaterally with denser infiltration in the medial mid and lower lung funes, probably representing CHF with pulmonary edema. Multifocal pneumonia remains a less likely possibility.. There is a small left pleural effusion which appears worsened from previous study. There is also small right pleural effusion. The heart is enlarged. There are sternotomy wires and surgical clips suggesting previous CABG. Normal mediastinum and heaven. Normal visualized aortic arch and descending thoracic aorta. There are no demonstrated acute fractures or destructive bone lesions. There is no demonstrated abnormality of the visualized soft tissue structures of the upper abdomen. RAD/Chest 1 View (Portable) IMPRESSION: Cardiomegaly with CHF, pulmonary edema, and small bilateral pleural effusions, left greater than right. Findings are worsened from previous study. Electronically Signed: Froilan Oquendo MD at 2:53 EDT , Service support ,
[2020-07-19] MEDS: Atropine Sulfate 1 MG/10 ML Syringe 0.5 MG IV ×3 (02:26→02:48)
--- NOTE | 2020-07-19 02:42 | NURSING ---
Verbal report called to GERMÁN Loza in ICU. States okay to transport patient up.
--- NOTE | 2020-07-19 03:07 | PCM.RRT.BLA ---
Rapid Response Note - Blank Nurse reported the patient was dry heaving and Zofran PRN was not able to control his symptoms. Compazine was ordered. Later nurse reported persistent dry heaving; and bradycardia with heart rate in the 40s. Also of note patient vomited right after his night medication including gabapentin was given. Patient required increase oxygenation to maintain appropriate oxygen saturation. Patient was assessed at the bedside. Patient was on a nonrebreather mask. His heart rate was in the 40s. Systolic blood pressure was less than 90. Patient reports feeling dizzy and not himself. Nurse also reported a patient felt cold. Patient had cardioversion on 07/18/2020 for A. fib. Nurse reported that per patient with previous cardioversion he could not tolerate. Further patient has intolerance to anesthesia. While in patient's room rapid response was called. Patient is lethargic. Tachypnea, lungs clear to auscultate. Patient with bradycardia and diminished heart sounds. Edema of lateral left leg. Symptomatic bradycardia. EKG showed left bundle branch block with heart rate in the 40s. Previous EKG showed left bundle branch block. Atropine 0.5 mg IV x3 given. Patient was transferred to the intensive care unit. While at emergency department his heart rate was around 50 but he continued to be hypotensive with systolic blood pressure of less than 90. We will initiate a dopamine drip. Gabapentin and Zoloft which was started on 07/18/2020 was discontinued. Vomited right after gabapentin disorder likely secondary to gabapentin. Will discontinue anyway since patient has hypotension. Also will discontinue Zoloft for now. Discontinue Cardizem p.o. Patient with no hypoglycemia. Chest x-ray returned with worsening pulmonary edema. However will attribute to symptomatic bradycardia. On scheduled Lasix. Hopefully his blood pressure can improve and he can continue his scheduled Lasix.
--- NOTE | 2020-07-19 03:15 | NURSING ---
Update called to Mason Luz (pt son) at this time.
[2020-07-19] MEDS: DOPamine IV 800 MG/250 ML IV.SOLN. 6.6 MG CONT INF (03:18)
[2020-07-19 03:29] LABS: Absolute Lymphocyte Count 1.13 X10^3/uL (0.83-4.51); Absolute Neutrophil Count 9.7 X10^3/uL (2.0-7.7); Basophil# 0.06 X10^3/uL; Basophil% 0.5 % (0-1); Hematocrit 47.7 % (40-54); Hemoglobin 14.4 g/dL (13.0-16.5); Lymphocyte # 1.13 X10^3/ul (4.0); Lymphocyte % 9.2 % (19-41); Mean Corp Hgb Conc 30.2 g/dL (32-36); Mean Corpuscular Hgb 30.4 pg (27.0-32.0); Mean Corpuscular Volume 100.8 fL (80-94); Mean Platelet Vol. 12.8 fl (6.2-12.0); Monocyte# 1.14 X10^3/uL; Monocyte% 9.3 % (0-10); NRBC Flagged by Analyzer 0 % (0-5); Neutrophil # 9.72 X10^3/uL (2.7-7.7); Neutrophil % 79.6 % (47-70); POSITIVE MORPHOLOGY YES; Platelet Count 172 K/mm3 (150-450); RBC Distribution Width CV 12.1 % (11.6-14.6); RBC Distribution Width SD 45.1 fl (35.1-43.9); Red Blood Count 4.73 M/mm3 (4.6-6.2); White Blood Count 12.2 K/mm3 (4.4-11.0)
[2020-07-19 03:33] LABS: Differential Indicated SCAN CRITERIA MET
[2020-07-19] MEDS: TITRATION PARAMETER CHANGE 1 EACH IV (03:52)
[2020-07-19 03:54] LABS: Anion Gap 16 (5-15); BUN 42 mg/dL (7-18); BUN/Creat Ratio 15.5 RATIO (10-20); Calcium,Total 9.7 mg/dL (8.5-10.1); Chloride 101 mmol/L (98-107); Creatinine, Serum 2.71 mg/dL (0.70-1.30); EST Glomerular Filtration Rate 24 mL/min (>60); Est Glom Filt Rate - Afr Amer 29 mL/min (>60); Estimated Creatinine Clearance 20.78 ml/min; Glucose 188 mg/dL (74-106); Magnesium 2.4 mg/dL (1.6-2.6); Potassium 5.7 mmol/L (3.5-5.1); Sodium Level 137 mmol/L (136-145)
[2020-07-19 03:55] LABS: Differential Comment SCANNED
[2020-07-19] MEDS: Metoclopramide 10 MG/2 ML Vial 5 MG IV (03:59)
--- NOTE | 2020-07-19 07:27 | PN.CARD_ITS ---
Subjectve: Patient seen and evaluated. Events of last night noted. On discussing with the nurse it appears that he got his evening medications including the gabapentin for the first time and then started experiencing significant nausea and vomiting. At that time he did experience bradycardia with hypotension. He required intravenous atropine and subsequent transfer to the intensive care unit. He was started on intravenous dopamine at that time. Patient had been noted to be completely coherent prior to the event after he developed the nausea. This morning he appears to be mildly confused. He is moving all extremities though. Objective: Vital Signs Temp Pulse Resp BP Pulse Ox 96 F L 65 19 H 98/53 L 96 07/19/20 04:00 07/19/20 07:00 07/19/20 07:00 07/19/20 07:00 07/19/20 07:00 Oxygen Flow Rate (L/min) 3 Oxygen Delivery Method Nasal Cannula Weight: 154 lb 1.65 oz Body Mass Index (BMI) 22.7 Intake and Output for Last 24 Hours 07/17/20 07/18/20 07/19/20 23:59 23:59 23:59 Intake Total 240 / 720 950 / 950 34.82 / 34.82 Output Total 900 / 900 Balance 240 / 720 50 / 50 34.82 / 34.82 General: Awake, Disoriented HEENT: PERRL, EOMI, Sclera Non Icteric Neck: Supple, Good ROM, No Lymph Node Enlargement Lungs: Clear to auscultation Cardiovascular: Regular Rhythm, Normal S1, Normal S2, No Murmurs, No Rubs, No Gallops Vascular: No Carotid Bruits, Normal Femoral Pulses, Normal Radial Pulses, Normal Dorsalis Pedal Pulse, Normal Posterior Tibial Pulses Abdomen: Bowel Sounds Present, Soft, Non Tender, No HSM, No Organomegaly Extremities: No Cyanosis, No Clubbing, No edema Musculoskeletal: No Erythema Neurological: No Focal Motor or Sensory Deficit Psych/Mental Status: Appropriate 07/19/20 02:45: Sodium 137, Potassium 5.7 H, Chloride 101, Carbon Dioxide 20.0 L , Anion Gap 16 H, BUN 42 H, Creatinine 2.71 H, Est GFR (MDRD) Af Amer 29 L, Est GFR (MDRD) Non-Af 24 L, BUN/Creatinine Ratio 15.5, Glucose 188 H, Calcium 9.7, Magnesium 2.4 07/19/20 02:45: WBC 12.2 H, RBC 4.73, Hgb 14.4, Hct 47.7, MCV 100.8 H D, MCH 30.4, MCHC 30.2 L, Plt Count 172, MPV 12.8 H, Immature Gran % (Auto) 1.400 H, Neut % (Auto) 79.6 H, Lymph % (Auto) 9.2 L, [place] % (Auto) 9.3, Eos % (Auto) 0.0, Baso % (Auto) 0.5, Absolute Neuts (auto) 9.7 H, Nucleated RBC % 0 07/19/20 02:45: Troponin I 0.232 H Rhythm: EKG: ECHO: Stress Test: Cardiac Cath: PCI: CT Surgery: Holter monitor: EPS: PPM: CXR: Chest CT Scan: Medical Necessity - Tobacco Use Smoking Status: Never smoker Tobacco Use: Non-smoker Assessment/Plan Shortness of breath * The above is likely secondary to diastolic dysfunction. His echocardiogram d emonstrated an ejection fraction of 45% with stage III diastolic dysfunction. I doubt that this is secondary to coronary ischemia. He does have evidence of elevated natruretic peptide level and so he does have a combination of systolic and diastolic heart failure. This is likely precipitated by his atrial fibrillation with a rapid ventricular response rate. * He appears to be breathing better at this time. * We will also adjust his diuretics. He appears to have had worsening renal dysfunction. 2. Coronary artery disease * He does have known coronary artery disease as evidenced above. His last catheterization a year and a half ago demonstrated patency of his bypass grafts. He has no acute EKG changes and I would recommend that we continue to manage him with risk factor modification. * A stress test demonstrated no evidence of ischemia and I do not think that coronary disease is playing a role here 3. Atrial fibrillation * His ventricular response rate does not appear to be very well controlled. He needs to continue to be anticoagulated. * He did undergo a DC cardioversion successfully yesterday after he had been on anticoagulation. He is still maintaining sinus rhythm. His bradycardia was likely multifactorial from his nausea and vomiting precipitating a vagal event as well as his having received the dose of beta-kelsey together with a calcium channel kelsey after he had been cardioverted. He has been on his anticoagulation * Would need to look for any focal neurological signs post cardioversion. * Will recommend slowly weaning off on the dopamine 4. Hypertension * Good control he will continue the same medications with appropriately changed doses. * Will discontinue diltiazem while he is in sinus rhythm. 5. Risk factor modification * He will continue with appropriate risk factor modification. He does in addition appear to be mildly depressed and this may need to be addressed. * * * Would appreciate critical care input into his overall general condition at this time. * Thank you for allowing me to participate in the care of your patient. Please don't hesitate to call if any issues arise.
[2020-07-19] MEDS: Insulin Lispro 100 UNIT/ML INSULN.PEN SC ×4 (07:55→21:04)
[2020-07-19 08:01] LABS: Bedside Glucose 185 mg/dL (70-110)
[2020-07-19] MEDS: APIXABAN 2.5 MG TABLET PO ×2 (09:40→21:05)
[2020-07-19] MEDS: Aspirin E.C. 81 MG Tablet PO (09:40)
[2020-07-19] MEDS: POTASSIUM CHLORIDE 10 MEQ CAPSULE.ER PO (09:42)
[2020-07-19 12:11] LABS: Bedside Glucose 247 mg/dL (70-110)
--- NOTE | 2020-07-19 12:21 | NURSING ---
pt has no urge to void bladder scan for 119CC
--- NOTE | 2020-07-19 12:51 | NURSING ---
dr brooks updated on no urine output, mental status, labs will order ns bolus
--- NOTE | 2020-07-19 15:05 | CHAPLAIN ---
Type of Pastoral Visit ___ Initial Visit _x__ Follow-up Visit ___ On-call Visit ___ General Patient Visit ___ Spiritual Assessment ___ Family Conference ___ Bereavement ___ Rapid Response ___ Code Blue ___ Other (describe below) Pastoral Care Referral From _x__ Patient ___ Family ___ Nurse ___ Physician ___ Dry Paste Supervisor ___ Sports Official ___ Other (describe below) Sacrament/Intervention _x__ Active listening ___ Anointing ___ Mormon ___ Bereavement ___ Communion ___ Calista exploration ___ ___ Life review _x__ Prayer ___ Reconciliation ___ Sacrament of Sick _x__ Supportive presence ___ Wedding ___ Other (describe below) Pastoral Comments patient appears to have some mental changes from visit made yesterday by this probation manager to pt in PCU; pt is talking to people that are not in the room and is more lethargic; pt does converse with this probation manager and does welcome prayer; informed RN of observations made
[2020-07-19 15:18] LABS: Potassium 4.6 mmol/L (3.5-5.1)
--- NOTE | 2020-07-19 15:47 | PCM.PROGNOTE ---
Subjective: Patient was seen and examined today, he has had no urine output since yesterday at approximately 1 PM, patient's creatinine and BUN are elevated today, I gave him a fluid bolus of 500 cc normal saline and I will place him on an IV at 75 cc an hour for rehydration. Earlier today patient had slurred speech, I think this was mostly due to medication (Compazine) and dehydration. This afternoon he looks better and is able to talk and I can easily understand him. - Physical Exam Vitals/I&O's: Vital Signs Temp Pulse Resp BP Pulse Ox 97.2 F L 65 18 102/49 L 92 07/19/20 12:00 07/19/20 12:00 07/19/20 12:00 07/19/20 12:00 07/19/20 12:00 Oxygen Flow Rate (L/min) 1 Oxygen Delivery Method Room Air Weight: 69.9 kg Body Mass Index (BMI) 22.7 Intake and Output for Last 24 Hours 07/17/20 07/18/20 07/19/20 23:59 23:59 23:59 Intake Total 240 / 720 950 / 950 342.89 / 342.89 Output Total 900 / 900 0 / 0 Balance 240 / 720 50 / 50 342.89 / 342.89 General: Alert, Oriented x3, Cooperative, No apparent distress, Well developed HEENT: Atraumatic, PERRLA, EOMI, Normocephalic Oral: Moist Mucosa Neck: Supple, Trachea Midline, Thyroid Normal Size and Texture Lungs: Clear to auscultation, Normal air movement, No rhonchi, No wheeze, No rales Cardiovascular: Regular rate, Regular Rhythm, Normal S1, Normal S2, No murmurs, PMI Normal, No rub noted Abdomen: Bowel Sounds Present, Soft, Non Tender, Non-Distended Extremities: No clubbing, No cyanosis, Capillary Refill Less than 3 Seconds Skin: No rashes, No breakdown Musculoskeletal: No Tenderness to Palpation of Joints or Extremities Neurological: Cranial nerves II-XII grossly intact, Neuro grossly intact, Sensory exam intact to light touch and pain, Coordination normal Psych/Mental Status: Normal Affect, Appropriate, Alert and oriented to time, place, person, mood and affect Laboratory Results 07/18/20 16:28: POC Glucose 201 H 07/18/20 21:26: POC Glucose 224 H 07/19/20 02:10: POC Glucose 216 H 07/19/20 02:45: Sodium 137, Potassium 5.7 H, Chloride 101, Carbon Dioxide 20.0 L, Anion Gap 16 H, BUN 42 H, Creatinine 2.71 H, Estim Creat Clear Calc 20.78, Est GFR (MDRD) Af Amer 29 L, Est GFR (MDRD) Non-Af 24 L, BUN/Creatinine Ratio 15.5, Glucose 188 H, Calcium 9.7, Magnesium 2.4 07/19/20 02:45: WBC 12.2 H, RBC 4.73, Hgb 14.4, Hct 47.7, MCV 100.8 H D, MCH 30.4, MCHC 30.2 L, RDW Std Deviation 45.1 H, RDW Coeff of Shashank 12.1, Plt Count 172, MPV 12.8 H, Immature Gran % (Auto) 1.400 H, Neut % (Auto) 79.6 H, Lymph % (Auto) 9.2 L, [place] % (Auto) 9.3, Eos % (Auto) 0.0, Baso % (Auto) 0.5, Absolute Neuts (auto) 9.7 H, Absolute Lymphs (auto) 1.13, Nucleated RBC % 0, Differential Comment SCANNED 07/19/20 02:45: Troponin I 0.232 H 07/19/20 07:40: POC Glucose 185 H 07/19/20 12:05: POC Glucose 247 H 07/19/20 15:00: Potassium 4.6 Current Medications Acetaminophen (Tylenol) 650 mg PO Q6H PRN PRN PRN Reason: Pain Score 1-10/Temp > 100.7 F Apixaban (Eliquis) 2.5 mg PO BID [facility] Last Admin: 07/19/20 09:40 Dose: 2.5 mg Documented by: Aspirin (Ecotrin) 81 mg PO DAILY@0800 [facility] Last Admin: 07/19/20 09:40 Dose: 81 mg Documented by: Atorvastatin Calcium (Lipitor) 40 mg PO QHS [facility] Last Admin: 07/18/20 21:29 Dose: 40 mg Documented by: Dextrose (D50w Syringe) 0 gm IV X1 PRN; Protocol PRN Reason: Hypoglycemia Glimepiride (Amaryl) 2 mg PO DAILYCM [facility] Last Admin: 07/19/20 09:16 Dose: Not Given Documented by: Glucagon () 1 mg IM .X1 PRN PRN Reason: Hypoglycemia Sodium Chloride () 250 mls @ 15 mls/hr IV .[id number] PRN PRN Reason: Saline Flush Sodium Chloride () 250 mls @ 15 mls/hr IV .[id number] PRN PRN Reason: Additional IVPB Infusion Sodium Chloride () 500 mls @ 0 mls/hr IV .Q0M [facility] Dopamine HCl/Dextrose () 800 mg in 250 mls @ 6.553 mls/hr CONT INF .[id number] [facility]; Protocol Last Titration: 07/19/20 11:15 Dose: 0 mcg/kg/min, 0 mls/hr Documented by: Insulin Human Lispro (Humalog Kwikpen (Bkc)) 0 unit SC [facility]; Protocol Last Admin: 07/19/20 12:08 Dose: 2 units Documented by: Magnesium Hydroxide (Milk Of Magnesia) 30 ml PO DAILY PRN PRN PRN Reason: Constipation Metoclopramide HCl (Reglan) 5 mg IV X1 PRN PRN Reason: NAUSEA Last Admin: 07/19/20 03:59 Dose: 5 mg Documented by: Nitroglycerin (Nitrostat) 0.4 mg SUBLINGUAL Q5M PRN PRN Reason: CARDIAC/CHEST PAIN Ondansetron HCl (Zofran) 4 mg IV Q6H PRN PRN PRN Reason: NAUSEA/VOMITING Potassium Chloride (Potassium Chloride) 10 meq PO BIDCM [facility] Last Admin: 07/19/20 09:42 Dose: 10 meq Documented by: Prochlorperazine Edisylate (Compazine Iv) 5 mg IV Q6H PRN PRN PRN Reason: NAUSEA/VOMITING Last Admin: 07/19/20 12:17 Dose: 5 mg Documented by: Sodium Chloride () 10 - 40 ml IV UD PRN PRN Reason: SALINE FLUSH Last Admin: 07/19/20 12:18 Dose: 10 ml Documented by: Medical Necessity - Tobacco Use Smoking Status: Never smoker Tobacco Use: Non-smoker Assessment/Plan All Active Problems (Last Reviewed 05/01/20 @ 14:[address] Jason Lemus MD) Congestive heart failure (Acute) Elevated troponin (Acute) Atrial fibrillation with rapid ventricular response (Acute) Acute on chronic systolic and diastolic heart failure, NYHA class 2 (Acute) History of non-ST elevation myocardial infarction (NSTEMI) (Resolved 05/2017) Acute respiratory failure with hypoxemia (Resolved) Dyspnea (Resolved) Dyspnea on exertion (Resolved) Shortness of breath (Resolved) #1 acute on chronic diastolic congestive heart failure-recent EF was 45%, I feel the patient needs IV hydration, I will reevaluate him tomorrow morning and for now place him on 75 cc of normal saline per hour. #2 paroxysmal atrial fibrillation-now converted by cardioversion to sinus rhythm #3 spinal stenosis #4 chronic depression secondary to multiple medical problems-patient's Zoloft will be held for now, he may be able to resume it as an outpatient. #5 type 2 diabetes-blood sugars will be monitored #6 coronary artery disease #7 essential hypertension #8 Acute kidney injury on a backdrop of chronic kidney disease stage III-labs will be monitored, fluids will be administered #9 symptomatic bradycardia-possibly secondary to Cardizem and beta-kelsey usage-cardiology is adjusting the patient's medications, Cardizem was discontinued #10 metabolic encephalopathy-this appears to be clearing, I think this could be also due to effects of medication. Inpatient E&M: 67622 Subs Hosp L2
[2020-07-19] MEDS: 0.9% Normal Saline 1,000 ML 75 ML IV (15:56)
[2020-07-19 16:01] LABS: Bedside Glucose 191 mg/dL (70-110)
[2020-07-19] MEDS: Atorvastatin Calcium 40 MG Tablet PO (21:05)
[2020-07-19 21:11] LABS: Bedside Glucose 182 mg/dL (70-110)
[2020-07-20] VITALS (19 sets, daily range): BP systolic 86–111; BP diastolic 53–70; PULSE 57–71; RESP 12–19; TEMP 36.3–36.7; O2SAT 95–98
[2020-07-20 04:27] LABS: Absolute Lymphocyte Count 1.11 X10^3/uL (0.83-4.51); Absolute Neutrophil Count 10.8 X10^3/uL (2.0-7.7); Basophil# 0.01 X10^3/uL; Basophil% 0.1 % (0-1); Hematocrit 34.5 % (40-54); Hemoglobin 11.2 g/dL (13.0-16.5); Lymphocyte # 1.11 X10^3/ul (4.0); Lymphocyte % 8.9 % (19-41); Mean Corp Hgb Conc 32.5 g/dL (32-36); Mean Corpuscular Hgb 30.4 pg (27.0-32.0); Mean Corpuscular Volume 93.8 fL (80-94); Mean Platelet Vol. 12.7 fl (6.2-12.0); Monocyte# 0.57 X10^3/uL; Monocyte% 4.6 % (0-10); NRBC Flagged by Analyzer 0 % (0-5); Neutrophil # 10.76 X10^3/uL (2.7-7.7); Neutrophil % 85.8 % (47-70); Platelet Count 127 K/mm3 (150-450); RBC Distribution Width CV 12.5 % (11.6-14.6); RBC Distribution Width SD 42.6 fl (35.1-43.9); Red Blood Count 3.68 M/mm3 (4.6-6.2); White Blood Count 12.5 K/mm3 (4.4-11.0)
[2020-07-20 04:42] LABS: Anion Gap 6 (5-15); BUN 56 mg/dL (7-18); BUN/Creat Ratio 24.2 RATIO (10-20); Calcium,Total 8.6 mg/dL (8.5-10.1); Chloride 109 mmol/L (98-107); Creatinine, Serum 2.31 mg/dL (0.70-1.30); EST Glomerular Filtration Rate 29 mL/min (>60); Est Glom Filt Rate - Afr Amer 35 mL/min (>60); Estimated Creatinine Clearance 24.38 ml/min; Glucose 68 mg/dL (74-106); Potassium 4.3 mmol/L (3.5-5.1); Sodium Level 142 mmol/L (136-145)
[2020-07-20] MEDS: 0.9% Normal Saline 1,000 ML 75 ML IV ×2 (05:07→12:39)
--- NOTE | 2020-07-20 08:28 | PN.CARD_ITS ---
Subjectve: patient seen and evaluated Objective: Vital Signs Temp Pulse Resp BP Pulse Ox 97.4 F L 58 L 14 90/53 L 97 07/20/20 04:00 07/20/20 06:00 07/20/20 06:00 07/20/20 06:00 07/20/20 06:00 Oxygen Flow Rate (L/min) 1 Oxygen Delivery Method Room Air Weight: 157 lb 13.616 oz Body Mass Index (BMI) 22.7 Intake and Output for Last 24 Hours 07/18/20 07/19/20 07/20/20 23:59 23:59 23:59 Intake Total 950 / 950 1526.29 / 1701.29 1243.75 / 1243.75 Output Total 900 / 900 200 / 400 300 / 300 Balance 50 / 50 1326.29 / 1301.29 943.75 / 943.75 General: Awake, Alert, Oriented x 3 HEENT: PERRL, EOMI, Sclera Non Icteric Neck: Supple, Good ROM, No Lymph Node Enlargement Lungs: Clear to auscultation Cardiovascular: Regular Rhythm, Normal S1, Normal S2, No Murmurs, No Rubs, No Gallops Vascular: No Carotid Bruits, Normal Femoral Pulses, Normal Radial Pulses, Normal Dorsalis Pedal Pulse, Normal Posterior Tibial Pulses Abdomen: Bowel Sounds Present, Soft, Non Tender, No HSM, No Organomegaly Extremities: No Cyanosis, No Clubbing, No edema Musculoskeletal: No Erythema Neurological: No Focal Motor or Sensory Deficit 07/19/20 15:00: Potassium 4.6 07/20/20 04:17: WBC 12.5 H, RBC 3.68 L, Hgb 11.2 L, Hct 34.5 L, MCV 93.8 D, MCH 30.4, MCHC 32.5 D, Plt Count 127 L, MPV 12.7 H, Immature Gran % (Auto) 0.600, Neut % (Auto) 85.8 H, Lymph % (Auto) 8.9 L, [place] % (Auto) 4.6, Eos % (Auto) 0.0, Baso % (Auto) 0.1, Absolute Neuts (auto) 10.8 H, Nucleated RBC % 0 07/20/20 04:17: Sodium 142, Potassium 4.3, Chloride 109 H, Carbon Dioxide 27.0, Anion Gap 6, BUN 56 H, Creatinine 2.31 H, Est GFR (MDRD) Af Amer 35 L, Est GFR (MDRD) Non-Af 29 L, BUN/Creatinine Ratio 24.2 H, Glucose 68 L, Calcium 8.6 Rhythm: EKG: ECHO: Stress Test: Cardiac Cath: PCI: CT Surgery: Holter monitor: EPS: PPM: CXR: Chest CT Scan: Medical Necessity - Tobacco Use Smoking Status: Never smoker Tobacco Use: Non-smoker Assessment/Plan Shortness of breath * The above is likely secondary to diastolic dysfunction. His echocardiogram demonstrated an ejection fraction of 45% with stage III diastolic dysfunction. I doubt that this is secondary to coronary ischemia. He does have evidence of elevated natruretic peptide level and so he does have a combination of systolic and diastolic heart failure. This is likely precipitated by his atrial fibrillation with a rapid ventricular response rate. * He appears to be breathing better at this time. * We will also adjust his diuretics. He appears to have had worsening renal dysfunction. 2. Coronary artery disease * He does have known coronary artery disease as evidenced above. His last catheterization a year and a half ago demonstrated patency of his bypass grafts. He has no acute EKG changes and I would recommend that we continue to manage him with risk factor modification. * A stress test demonstrated no evidence of ischemia and I do not think that coronary disease is playing a role here 3. Atrial fibrillation * His ventricular response rate does not appear to be very well controlled. He needs to continue to be anticoagulated. * He did undergo a DC cardioversion successfully yesterday after he had been on anticoagulation. He is still maintaining sinus rhythm. His bradycardia was likely multifactorial from his nausea and vomiting precipitating a vagal event as well as his having received the dose of beta-kelsey together with a calcium channel kelsey after he had been cardioverted. He has been on his anticoagulation * Would need to look for any focal neurological signs post cardioversion. * Maintaining SR 4. Hypertension * Good control he will continue the same medications with appropriately changed doses. * Will discontinue diltiazem while he is in sinus rhythm. 5. Risk factor modification * He will continue with appropriate risk factor modification. He does in addition appear to be mildly depressed and this may need to be addressed. * * * Would appreciate critical care input into his overall general condition at this time. * Thank you for allowing me to participate in the care of your patient. Please don't hesitate to call if any issues arise.
[2020-07-20] MEDS: APIXABAN 2.5 MG TABLET PO ×2 (08:40→22:21)
[2020-07-20] MEDS: Glimepiride 2 MG Tablet PO (08:40)
[2020-07-20] MEDS: POTASSIUM CHLORIDE 10 MEQ CAPSULE.ER PO ×2 (08:40→17:01)
[2020-07-20] MEDS: Aspirin E.C. 81 MG Tablet PO (08:40)
[2020-07-20] MEDS: Metoprolol Tartrate 25 MG Tablet PO ×2 (08:43→22:21)
--- NOTE | 2020-07-20 09:59 | NURSING ---
report called to [facility] for transfer to room 108,family aware of transfer,transferred per chair with belongings
[2020-07-20] MEDS: Sertraline 50 MG Tablet 25 MG PO (11:39)
[2020-07-20 12:05] LABS: Bedside Glucose 96 mg/dL (70-110)
--- NOTE | 2020-07-20 15:36 | CASEMGMT ---
Addendum entered by Azucena Cummins 07/20/20 15:38: Green Sheet on chart for HHC. Isaias DUNLAP CM Original Note: This RN CM to room to discuss discharge plan with pt at this time. Pt is on room air at this time with a sat of 98% at this time. Pt states plans to go home at discharge with HHC and resumption of CCN. Pt voices no further questions/concerns/needs at this time. Isaias DUNLAP CM
--- NOTE | 2020-07-20 16:56 | PN_ITS ---
Subjective: Patient was seen and examined today, he was transferred from the ICU back to PCU today, his renal functions are improved, his speech is cleared and his mentation is cleared. I talked briefly with cardiology today about his care, patient's son was in his room today and I also talked with the patient's son concerning his medical care. Patient thinks that the IM Depo-Medrol shot I gave him has helped his back discomfort, we discussed taking a small dose of prednisone daily for relief of his back pain and he is agreed to try prednisone 5 mg daily. In addition, I started him on Zoloft today and he got a dose this morning, he tolerated it well but I have decided to change him to Cymbalta due to the fact Cymbalta is also used for back pain issues. He will start on Cymbalta 30 mg daily starting in the morning. Finally, I have decided to place him back on gabapentin 100 mg nightly to see if this would help with with his neuropathic pain-hopefully if it gives him some help it can be increased over time. - Physical Exam Vitals/I&O's: Vital Signs Temp Pulse Resp BP Pulse Ox 97.7 F L 62 18 104/60 96 07/20/20 16:50 07/20/20 16:50 07/20/20 16:50 07/20/20 16:50 07/20/20 16:50 Oxygen Flow Rate (L/min) 1 Oxygen Delivery Method Room Air Weight: 71.6 kg Body Mass Index (BMI) 22.7 Intake and Output for Last 24 Hours 07/18/20 07/19/20 07/20/20 23:59 23:59 23:59 Intake Total 950 / 950 1526.29 / 1701.29 1870.00 / 1870.00 Output Total 900 / 900 200 / 400 800 / 800 Balance 50 / 50 1326.29 / 1301.29 1070.00 / 1070.00 General: Alert, Oriented x3, Cooperative, No apparent distress, Well developed, Well nourished HEENT: Atraumatic, PERRLA, EOMI, Normocephalic Oral: Moist Mucosa Neck: Supple, Trachea Midline, Thyroid Normal Size and Texture Lungs: Clear to auscultation, Normal air movement, No rhonchi, No wheeze, No rales Cardiovascular: Regular rate, Regular Rhythm, Normal S1, Normal S2, No murmurs, PMI Normal, No rub noted, No Gallop Abdomen: Bowel Sounds Present, Soft, Non Tender, Non-Distended, No hernias noted Extremities: No clubbing, No cyanosis, Capillary Refill Less than 3 Seconds Skin: No rashes, No breakdown Musculoskeletal: No Tenderness to Palpation of Joints or Extremities Neurological: Cranial nerves II-XII grossly intact, Neuro grossly intact, Sensory exam intact to light touch and pain, Coordination normal Psych/Mental Status: Normal Affect, Appropriate, Alert and oriented to time, place, person, mood and affect Laboratory Results 07/19/20 21:03: POC Glucose 182 H 07/20/20 04:17: WBC 12.5 H, RBC 3.68 L, Hgb 11.2 L, Hct 34.5 L, MCV 93.8 D, MCH 30.4, MCHC 32.5 D, RDW Std Deviation 42.6, RDW Coeff of Shashank 12.5, Plt Count 127 L, MPV 12.7 H, Immature Gran % (Auto) 0.600, Neut % (Auto) 85.8 H, Lymph % (Auto) 8.9 L, [place] % (Auto) 4.6, Eos % (Auto) 0.0, Baso % (Auto) 0.1, Absolute Neuts (auto) 10.8 H, Absolute Lymphs (auto) 1.11, Nucleated RBC % 0 07/20/20 04:17: Sodium 142, Potassium 4.3, Chloride 109 H, Carbon Dioxide 27.0, Anion Gap 6, BUN 56 H, Creatinine 2.31 H, Estim Creat Clear Calc 24.38, Est GFR (MDRD) Af Amer 35 L, Est GFR (MDRD) Non-Af 29 L, BUN/Creatinine Ratio 24.2 H, Glucose 68 L, Calcium 8.6 07/20/20 11:38: POC Glucose 96 Current Medications Acetaminophen (Tylenol) 650 mg PO Q6H PRN PRN PRN Reason: Pain Score 1-10/Temp > 100.7 F Apixaban (Eliquis) 2.5 mg PO BID [facility] Last Admin: 07/20/20 08:40 Dose: 2.5 mg Documented by: Aspirin (Ecotrin) 81 mg PO DAILY@0800 [facility] Last Admin: 07/20/20 08:40 Dose: 81 mg Documented by: Atorvastatin Calcium (Lipitor) 40 mg PO QHS [facility] Last Admin: 07/19/20 21:05 Dose: 40 mg Documented by: Dextrose (D50w Syringe) 0 gm IV X1 PRN; Protocol PRN Reason: Hypoglycemia Duloxetine HCl (Cymbalta) 30 mg PO DAILY [facility] Gabapentin (Neurontin) 100 mg PO QHS [facility] Last Admin: 07/20/20 08:40 Dose: 2 mg Documented by: Glucagon () 1 mg IM .X1 PRN PRN Reason: Hypoglycemia Sodium Chloride () 250 mls @ 15 mls/hr IV .[id number] PRN PRN Reason: Saline Flush Sodium Chloride () 250 mls @ 15 mls/hr IV .[id number] PRN PRN Reason: Additional IVPB Infusion Sodium Chloride () 500 mls @ 0 mls/hr IV .Q0M [facility] Sodium Chloride () 1,000 mls @ 60 mls/hr IV .[id number] [facility] Last Infusion: 07/20/20 12:40 Dose: 60 mls/hr Documented by: Insulin Human Lispro (Humalog Kwikpen (Bkc)) 0 unit SC ACHS [facility]; Protocol Last Admin: 07/20/20 16:53 Dose: Not Given Documented by: Magnesium Hydroxide (Milk Of Magnesia) 30 ml PO DAILY PRN PRN PRN Reason: Constipation Metoclopramide HCl (Reglan) 5 mg IV X1 PRN PRN Reason: NAUSEA Last Admin: 07/19/20 03:59 Dose: 5 mg Documented by: Metoprolol Tartrate (Lopressor (Beta Ivy)) 25 mg PO BID [facility] Last Admin: 07/20/20 08:43 Dose: 25 mg Documented by: Nitroglycerin (Nitrostat) 0.4 mg SUBLINGUAL Q5M PRN PRN Reason: CARDIAC/CHEST PAIN Ondansetron HCl (Zofran) 4 mg IV Q6H PRN PRN PRN Reason: NAUSEA/VOMITING Potassium Chloride (Potassium Chloride) [facility] Last Admin: 07/20/20 08:40 Dose: 10 meq Documented by: Prednisone () 5 mg PO DAILY@0800 [facility] Sodium Chloride () 10 - 40 ml IV UD PRN PRN Reason: SALINE FLUSH Last Admin: 07/19/20 12:18 Dose: 10 ml Documented by: Medical Necessity - Tobacco Use Smoking Status: Never smoker Tobacco Use: Non-smoker Assessment/Plan All Active Problems (Last Reviewed 05/01/20 @ 14:[address] Jason Lemus MD) Congestive heart failure (Acute) Elevated troponin (Acute) Atrial fibrillation with rapid ventricular response (Acute) Acute on chronic systolic and diastolic heart failure, NYHA class 2 (Acute) History of non-ST elevation myocardial infarction (NSTEMI) (Resolved 05/2017) Acute respiratory failure with hypoxemia (Resolved) Dyspnea (Resolved) Dyspnea on exertion (Resolved) Shortness of breath (Resolved) #1 acute on chronic diastolic congestive heart failure-recent EF was 45%, elected to continue the patient on low rate IV fluids and recheck his BMP tomorrow, patient is on room air and has no complaints of any shortness of breath #2 paroxysmal atrial fibrillation-now converted by cardioversion to sinus rhythm #3 spinal stenosis with radicular pain-I have placed the patient on a small dose of gabapentin 100 mg nightly, this could be increased as an outpatient if he was able to tolerate this medication #4 chronic depression secondary to multiple medical problems-again, patient will be started on Cymbalta 30 mg daily he will need a prescription for this at the time of his discharge. If the patient tolerates this dosage over 1 to 2 weeks, it may be increased to 60 mg daily. #5 type 2 diabetes-blood sugars will be monitored #6 coronary artery disease #7 essential hypertension #8 Acute kidney injury on a backdrop of chronic kidney disease stage III-labs will be monitored, fluids will be administered #9 symptomatic bradycardia-possibly secondary to Cardizem and beta-ivy usage-cardiology is adjusting the patient's medications, Cardizem was discontinued, patient remains on a beta-ivy at this time #10 metabolic encephalopathy-secondary to dehydration and drug effect from Compazine used for nausea #11 chronic nausea-etiology unclear, patient states that since March he has felt nauseated, I have elected to place him on a PPI (Protonix 20 mg daily) he will need a prescription for this at the time of discharge Inpatient E&M: [id number] [facility] Hosp L2
[2020-07-20] MEDS: Pantoprazole Sodium 20 MG Tablet PO (17:16)
[2020-07-20 17:55] LABS: Bedside Glucose 61 mg/dL (70-110)
[2020-07-20 17:55] LABS: Bedside Glucose 79 mg/dL (70-110)
[2020-07-20] MEDS: Atorvastatin Calcium 40 MG Tablet PO (22:21)
[2020-07-20] MEDS: Gabapentin 100 MG Capsule PO (22:22)
[2020-07-20 22:36] LABS: Bedside Glucose 102 mg/dL (70-110)
[2020-07-21 03:00] VITALS: PULSE 63
[2020-07-21 03:50] VITALS: BP 121/72; PULSE 65; RESP 20; TEMP 36.8; O2SAT 95
[2020-07-21] MEDS: 0.9% Normal Saline 1,000 ML 60 ML IV (04:53)
--- NOTE | 2020-07-21 06:42 | PCM.PN.BLA ---
Progress Note Glucose 57. Reportedly patient does not want to eat. Verbal orders give to give half an amp of D50 and to follow hypoglycemia protocol. Glimepiride discontinued. STROKE Vital Signs/Narrative: Vital Signs Temp Pulse Resp BP Pulse Ox 07/21/20 03:50 98.2 F 65 20 H 121/72 H 95 07/21/20 03:00 63
[2020-07-21] MEDS: Dextrose 50%-Water 25 GM/50 ML DISP.SYRIN IV (06:47)
[2020-07-21 06:51] LABS: Bedside Glucose 57 mg/dL (70-110)
[2020-07-21] MEDS: 0.9% Saline Lock 10 ML Syringe IV (06:53)
[2020-07-21 07:00] VITALS: PULSE 65
[2020-07-21 07:18] LABS: Anion Gap 3 (5-15); BUN 48 mg/dL (7-18); BUN/Creat Ratio 25.7 RATIO (10-20); Calcium,Total 8.8 mg/dL (8.5-10.1); Chloride 113 mmol/L (98-107); Creatinine, Serum 1.87 mg/dL (0.70-1.30); EST Glomerular Filtration Rate 37 mL/min (>60); Est Glom Filt Rate - Afr Amer 45 mL/min (>60); Estimated Creatinine Clearance 30.46 ml/min; Glucose 55 mg/dL (74-106); Sodium Level 145 mmol/L (136-145)
[2020-07-21 07:26] LABS: Bedside Glucose 93 mg/dL (70-110)
[2020-07-21 07:55] VITALS: O2SAT 94
[2020-07-21] MEDS: POTASSIUM CHLORIDE 10 MEQ CAPSULE.ER PO (08:47)
[2020-07-21] MEDS: Aspirin E.C. 81 MG Tablet PO (08:47)
[2020-07-21 10:30] VITALS: BP 121/68; PULSE 72; RESP 16; TEMP 36.6; O2SAT 97
[2020-07-21 10:40] VITALS: PULSE 72
[2020-07-21] MEDS: Metoprolol Tartrate 25 MG Tablet PO (10:40)
[2020-07-21] MEDS: DULoxetine Hcl 30 MG Capsule PO (10:41)
[2020-07-21] MEDS: APIXABAN 2.5 MG TABLET PO (10:41)
[2020-07-21] MEDS: predniSONE 5 MG Tablet PO (10:41)
[2020-07-21] MEDS: Pantoprazole Sodium 20 MG Tablet PO (10:44)
--- NOTE | 2020-07-21 11:41 | PCM.DC ---
You will use the following diet at home:: Cardiac - 1800 calories Your food should be the consistency of: Regular Your liquids should be the consistency of: Regular/Thin Discharge Activity: Return to Normal Activity Weight Bearing Status: Weight bearing as tolerated Call your doctor if you observe: Shortness of breath, Dizziness, Fainting spells, Swelling in the ankles, Increased palpitations (irregular heartbeat), Uncontrolled pain Instructions: ED Heart Disease Risk Factors Additional Instructions: to eat adequate oral diet to avoid hypoglycemia Allergies/Adverse Reactions: Allergies spironolactone Allergy (Verified 07/12/20 09:49) severe weakness lisinopril Adverse Reaction (Mild, Verified 07/12/20 09:49) Dry cough amiodarone Adverse Reaction (Verified 07/12/20 09:49) toxicity Medications to take at Discharge cholecalciferol (vitamin D3) 125 mcg (5,000 unit) capsule 5,000 unit PO DAILY 02/16/19 atorvastatin 40 mg tablet 40 mg PO DAILY tab 04/11/20 Furosemide [Lasix] 60 mg PO BID #60 tab 07/15/20 Potassium Chloride [Klor-Con 10] 20 meq PO BID #0 07/15/20 Acetaminophen [Tylenol] 500 mg PO DAILY PRN PRN 07/17/20 Apixaban [Eliquis] 2.5 mg PO BID 07/17/20 Aspirin E.C. [Ecotrin] 81 mg PO DAILY@0800 07/17/20 Glimepiride [Amaryl] 2 mg PO DAILY 07/17/20 Duloxetine Hcl [Cymbalta] 30 mg PO DAILY #30 cap 07/21/20 Gabapentin [Neurontin] 100 mg PO QHS #30 cap 07/21/20 Metoprolol Tartrate [Lopressor (beta kelsey)] 25 mg PO BID #60 tab 07/21/20 The following prescriptions were given: Duloxetine Hcl [Cymbalta] 30 mg PO DAILY #30 cap Transmission Status: Received by [id number] Metoprolol Tartrate [Lopressor (beta kelsey)] 25 mg PO BID #60 tab Transmission Status: Received by [id number] Gabapentin [Neurontin] 100 mg PO QHS #30 cap Transmission Status: Received by [id number] Primary Care Physician: Abdoulaye Brock MD [Primary Care Provider] - Please follow up with your Primary Care Physician in: 1-2 weeks Test Results: Test results from this visit will be discussed in further detail at your follow-up appointment, if applicable. Please Follow Up With: Jason Lemus MD When: 2-3 weeks Proposed Discharge Date: 07/21/20
[2020-07-21 11:46] LABS: Bedside Glucose 97 mg/dL (70-110)
--- NOTE | 2020-07-21 11:50 | PCA ---
Discharge paperwork faxed to [facility], [id number] and spoke with director of marketing operations RNZully and notified her of discharge plan for today.
--- NOTE | 2020-07-21 12:07 | PCM.DC.SUM ---
Discharge Date and Diagnosis Date of Admission: 07/17/20 Date of Discharge: 07/21/20 - Primary Discharge Diagnosis Acute Problems: acute on chronic combined heart failure afib bradycardia - Secondary Discharge Diagnosis Chronic Problems: Chronic Problems (Last Reviewed 05/01/20 @ 14:[address] 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 Patient had been admitted and discharged on 07/15/2020 for acute on chronic combined heart failure and A. fib with RVR. Medication changes were made. However when he went home he is still felt short of breath very fatigued so he came back to the ED. He also complained of palpitations but denied any dizziness he also admitted to some chest discomfort. Chest x-ray on admission showed acute heart failure with bibasilar atelectasis greater on the right. He was admitted and managed for acute on chronic combined heart failure with EF of 45% in stage III diastolic dysfunction. Admitting BNP was more than thousand 800. He was diuresed with IV Lasix 40 mg twice daily. He was also managed for CATE on CKD stage III which was also thought to be likely cardiorenal. Troponins were also mildly elevated and this was thought to be due to heart failure. Cardiology was consulted. Patient had DC cardioversion done by cardiology on account of his ventricular response rate did not been very well controlled. He was also put on anticoagulation. Patient subsequently developed bradycardia with heart rate going down to the 40s. EKG done showed left bundle branch block with heart rate in the 40s. He was started on dopamine drip and transferred to ICU. Cardizem was discontinued as he was in sinus rhythm and had also had bradycardia. His metoprolol dose was also adjusted downwards by cardiology. Patient remained stable and was weaned off of dopamine drip and transferred down to the progressive care unit. Patient remained stable. He had also complained of back pain during admission and was started on low-dose of gabapentin 100 mg nightly. He had initially been on a higher dose of gabapentin which was thought to have precipitated his nausea and vomiting. He was therefore started on a lower dose of 100 mg every evening. He was also started on Cymbalta depression. Patient remained stable and was discharged home on 07/21/2020. He was discharged home on metoprolol 25 mg twice daily. As mentioned, Cardizem was discontinued and he was continued on his Eliquis dose. He is to follow-up with his primary care doctor and cardiology within 1 to 2 weeks. Patient seen and examined prior to discharge. He felt well and had no complaints and wanted to go home. He denied any cough, chest pain, palpitations or dizziness, nausea vomiting or diarrhea. Review systems otherwise negative. Labs and vitals reviewed. Home medication reviewed and reconciled. O/E: Vital Signs Temp Pulse Resp BP Pulse Ox 97.8 F 72 16 121/68 H 97 07/21/20 10:30 07/21/20 10:40 07/21/20 10:30 07/21/20 10:30 07/21/20 10:30 [] General: Alert, Oriented x3, Cooperative, No apparent distress, Well developed, Well nourished HEENT: Atraumatic, PERRLA, EOMI, Normocephalic Oral: Moist Mucosa Neck: Supple, Trachea Midline, Thyroid Normal Size and Texture Lungs: Clear to auscultation, Normal air movement, No rhonchi, No wheeze, No rales Cardiovascular: Regular rate, Regular Rhythm, Normal S1, Normal S2, No murmurs, PMI Normal, No rub noted, No Gallop Abdomen: Bowel Sounds Present, Soft, Non Tender, Non-Distended, No hernias noted Extremities: No clubbing, No cyanosis, Capillary Refill Less than 3 Seconds Skin: No rashes, No breakdown Musculoskeletal: No Tenderness to Palpation of Joints or Extremities Neurological: Cranial nerves II-XII grossly intact, Neuro grossly intact, Sensory exam intact to light touch and pain, Coordination normal Psych/Mental Status: Normal Affect, Appropriate, Alert and oriented to time, place, person, mood and affect Plan is for discharge home today. He is also to continue diuresis with his PO lasix 60mg bid. - Physical Exam Vitals/I&O's: Vital Signs Temp Pulse Resp BP Pulse Ox 97.8 F 72 16 121/68 H 97 07/21/20 10:30 07/21/20 10:40 07/21/20 10:30 07/21/20 10:30 07/21/20 10:30 Oxygen Flow Rate (L/min) 1 Oxygen Delivery Method Room Air Weight: 160 lb 14.999 oz Body Mass Index (BMI) 22.7 Intake and Output for Last 24 Hours 07/19/20 07/20/20 07/21/20 23:59 23:59 23:59 Intake Total 1526.29 / 1701.29 1990.00 / 1989. 1195 / 1195 Output Total 200 / 400 800 / 800 Balance 1326.29 / 1301.29 1190.00 / 1190.00 1195 / 1195 Laboratory Results 07/20/20 16:49: POC Glucose 61 L 07/20/20 17:48: POC Glucose 79 07/20/20 22:13: POC Glucose 102 07/21/20 06:16: Sodium 145, Potassium 4.0, Chloride 113 H, Carbon Dioxide 29.0, Anion Gap 3 L, BUN 48 H, Creatinine 1.87 H, Estim Creat Clear Calc 30.46, Est GFR (MDRD) Af Amer 45 L, Est GFR (MDRD) Non-Af 37 L, BUN/Creatinine Ratio 25.7 H, Glucose 55 L, Calcium 8.8 07/21/20 06:31: POC Glucose 57 L 07/21/20 07:15: POC Glucose 93 07/21/20 11:22: POC Glucose 97 Current Medications Acetaminophen (Tylenol) 650 mg PO Q6H PRN PRN PRN Reason: Pain Score 1-10/Temp > 100.7 F Apixaban (Eliquis) 2.5 mg PO BID [facility] Last Admin: 07/21/20 10:41 Dose: 2.5 mg Documented by: Aspirin (Ecotrin) 81 mg PO DAILY@0800 [facility] Last Admin: 07/21/20 08:47 Dose: 81 mg Documented by: Atorvastatin Calcium (Lipitor) 40 mg PO QHS [facility] Last Admin: 07/20/20 22:21 Dose: 40 mg Documented by: Dextrose (D50w Syringe) 0 gm IV X1 PRN; Protocol PRN Reason: Hypoglycemia Last Admin: 07/21/20 06:47 Dose: 12.5 gm Documented by: Duloxetine HCl (Cymbalta) 30 mg PO DAILY [facility] Last Admin: 07/21/20 10:41 Dose: 30 mg Documented by: Gabapentin (Neurontin) 100 mg PO QHS [facility] Last Admin: 07/20/20 22:22 Dose: 100 mg Documented by: Glucagon () 1 mg IM .X1 PRN PRN Reason: Hypoglycemia Sodium Chloride () 250 mls @ 15 mls/hr IV .[id number] PRN PRN Reason: Saline Flush Sodium Chloride () 250 mls @ 15 mls/hr IV .[id number] PRN PRN Reason: Additional IVPB Infusion Sodium Chloride () 500 mls @ 0 mls/hr IV .Q0M [place] Sodium Chloride () 1,000 mls @ 60 mls/hr IV .[id number] [facility] Last Infusion: 07/21/20 08:35 Dose: 0 mls/hr Documented by: Insulin Human Lispro (Humalog Kwchasidypen (Bkc)) 0 unit SC ACHS [facility]; Protocol Last Admin: 07/21/20 11:27 Dose: Not Given Documented by: Magnesium Hydroxide (Milk Of Magnesia) 30 ml PO DAILY PRN PRN PRN Reason: Constipation Metoprolol Tartrate (Lopressor (Beta Ivy)) 25 mg PO BID [facility] Last Admin: 07/21/20 10:40 Dose: 25 mg Documented by: Nitroglycerin (Nitrostat) 0.4 mg SUBLINGUAL Q5M PRN PRN Reason: CARDIAC/CHEST PAIN Ondansetron HCl (Zofran) 4 mg IV Q6H PRN PRN PRN Reason: NAUSEA/VOMITING Pantoprazole Sodium (Protonix) 20 mg PO DAILY [facility] Last Admin: 07/21/20 10:44 Dose: 20 mg Documented by: Potassium Chloride (Potassium Chloride) 10 meq PO BIDCM [facility] Last Admin: 07/21/20 08:47 Dose: 10 meq Documented by: Prednisone () 5 mg PO DAILY@0800 [facility] Last Admin: 07/21/20 10:41 Dose: 5 mg Documented by: Sodium Chloride () 10 - 40 ml IV UD PRN PRN Reason: SALINE FLUSH Last Admin: 07/21/20 06:53 Dose: 20 ml Documented by: Discharge Diet: Low fat/ Low Cholesterol Discharge Activity: Return to Normal Activity Weight Bearing Status: Weight bearing as tolerated Call your doctor if you observe: Shortness of breath, Dizziness, Fainting spells, Swelling in the ankles, Increased palpitations (irregular heartbeat), Uncontrolled pain Home Medications: Medications to take at Discharge cholecalciferol (vitamin D3) 125 mcg (5,000 unit) capsule 5,000 unit PO DAILY 02/16/19 atorvastatin 40 mg tablet 40 mg PO DAILY tab 04/11/20 Furosemide [Lasix] 60 mg PO BID #60 tab 07/15/20 Potassium Chloride [Klor-Con 10] 20 meq PO BID #0 07/15/20 Acetaminophen [Tylenol] 500 mg PO DAILY PRN PRN 07/17/20 Apixaban [Eliquis] 2.5 mg PO BID 07/17/20 Aspirin E.C. [Ecotrin] 81 mg PO DAILY@0800 07/17/20 Glimepiride [Amaryl] 2 mg PO DAILY 07/17/20 Duloxetine Hcl [Cymbalta] 30 mg PO DAILY #30 cap 07/21/20 Gabapentin [Neurontin] 100 mg PO QHS #30 cap 07/21/20 Metoprolol Tartrate [Lopressor (beta ivy)] 25 mg PO BID #60 tab 07/21/20 Following Prescriptions Were Given to Patient: Duloxetine Hcl [Cymbalta] 30 mg PO DAILY #30 cap Transmission Status: Received by [id number] Metoprolol Tartrate [Lopressor (beta ivy)] 25 mg PO BID #60 tab Transmission Status: Received by [id number] Gabapentin [Neurontin] 100 mg PO QHS #30 cap Transmission Status: Received by [id number] Primary Care Physician: Abdoulaye Brock MD [Primary Care Provider] - Please follow up with your Primary Care Physician in: 1-2 weeks Please Follow Up With: Jason Lemus MD When: 2-3 weeks Please Follow Up With: Abdoulaye Brock MD Patient Instructions: ED Heart Disease Risk Factors Disposition: Home Minutes spent on discharge:: 45 Patient Condition:: Stable Medical Necessity - Tobacco Use Smoking Status: Never smoker Tobacco Use: Non-smoker Meaningful Use Info Meaningful Use Diagnoses (Choose all that apply): CHF - CHF SHASHA/ARB ordered at discharge?: No Reason SHASHA/ARB not ordered?: Worsening renal disease Documented LVEF (%): 45 Inpatient E&M: 13867 Disch Hosp
--- NOTE | 2020-07-21 14:10 | CASEMGMT ---
RN MASSIEL updated that patient will need walker at discharge. Script for walker received. GERMÁN CM in to discuss setting up walker prior to discharge. Patient states he wants to wait on getting walker. RN MASSIEL explained that patient can take script for FWW to [facility] or [facility] to fill. Patient states his son is working on getting him a rollator to use. Son in room and states he has arranged to borrow neighbors rollator until they find a rollator they like. Patient and son had no further questions or concerns at this time.
--- NOTE | 2020-07-23 12:10 | CASEMGMT ---
GERMÁN CM Discharge Follow-up Phone Call: ALVARADOSandra: 14 Strata: 4 Call Date: 07/23/2020 Discharge Date: 07/21/2020 Time of Call: 1210 Admitting Diagnosis: A/C combined heart failure. Discharge follow-up call placed to patient. Pt states he is tired and was about to take a nap. Pt states the home health RN visited yesterday and he feels they have him set up with what he needs. Pt denied any further needs. Hernando Shi RN
== END 2020-07-21 14:36 | disposition home or self-care (01) | DRG 308 ==
LOC: ED 14:33 → PCU 14:56 → ICU 07-19 02:47 → PCU 07-20 10:10
PROVIDERS: Hospitalist; Internal Medicine; Admitting Provider Internal Medicine; Emergency Provider Emergency Medicine; PCP Family Medicine; Visit Provider Student in an Organized Health Care Education/Training Program
DX: I48.0 Paroxysmal atrial fibrillation (principal); I50.43 Acute on chronic combined systolic (congestive) and diastolic (congestive) heart failure; G93.41 Metabolic encephalopathy; I13.0 Hypertensive heart and chronic kidney disease with heart failure and stage 1 through stage 4 chronic kidney disease, or unspecified chronic kidney disease; N17.9 Acute kidney failure, unspecified; E11.22 Type 2 diabetes mellitus with diabetic chronic kidney disease; E78.5 Hyperlipidemia, unspecified; N18.30 Chronic kidney disease, stage 3 unspecified; I25.10 Atherosclerotic heart disease of native coronary artery without angina pectoris; Z95.1 Presence of aortocoronary bypass graft; I44.7 Left bundle-branch block, unspecified; I25.5 Ischemic cardiomyopathy; R00.1 Bradycardia, unspecified; F32.9 Major depressive disorder, single episode, unspecified; I25.2 Old myocardial infarction; I27.21 Secondary pulmonary arterial hypertension; M48.00 Spinal stenosis, site unspecified
CPT/HCPCS: 36415; 71045; 71046; 80048; 80053; 82570; 82962; 83735; 83880; 84132; 84300; 84443; 84484; 84540; 85025; 92960; 93005; 97116; 97162; 97166; 97530; 97802; 99251; 99285; J7030; J7040; A4216; G0463; J1940; J2405

== ENCOUNTER → 2020-07-24 12:06 | Outpatient (CLI) | payer MEDICARE, SELFPAY ==
[2020-07-17 16:22] VITALS: BMI 22.7
[2020-07-24 15:42] LABS: Anion Gap 4 (5-15); BUN 34 mg/dL (7-18); BUN/Creat Ratio 20.9 RATIO (10-20); Calcium,Total 9.3 mg/dL (8.5-10.1); Chloride 97 mmol/L (98-107); Creatinine, Serum 1.63 mg/dL (0.70-1.30); EST Glomerular Filtration Rate 43 mL/min (>60); Est Glom Filt Rate - Afr Amer 52 mL/min (>60); Glucose 162 mg/dL (74-106); Potassium 3.7 mmol/L (3.5-5.1); Sodium Level 137 mmol/L (136-145)
[2020-07-24 16:13] LABS: BNP,B-Type NATRIURETIC PEPTIDE 1514.4 pg/mL (0-100)
== END ==
PROVIDERS: PCP Family Medicine; Referring Provider Family Medicine; Visit Provider Family Medicine
DX: N18.30 Chronic kidney disease, stage 3 unspecified (principal); I50.42 Chronic combined systolic (congestive) and diastolic (congestive) heart failure
CPT/HCPCS: 36415; 80048; 83880

== ENCOUNTER 2020-08-09 10:40 | Inpatient (IN) | payer MEDICARE, SELFPAY ==
[2020-07-30 09:29] VITALS: BMI 20.9
[2020-08-09] VITALS (21 sets, daily range): BP systolic 73–115; BP diastolic 49–89; PULSE 70–147; RESP 16–26; TEMP 36.4–36.7; O2SAT 94–100; BMI 22.2; BMI 22.3
--- NOTE | 2020-08-09 10:50 | EKG12_ITS ---
Test Reason : CP Blood Pressure : / mmHG Vent. Rate : 137 BPM Atrial Rate : 050 BPM P-R Int : 000 ms QRS Dur : 140 ms QT Int : 360 ms P-R-T Axes : 000 -06 179 degrees QTc Int : 543 ms Atrial fibrillation Left bundle branch block Abnormal ECG Confirmed by ISACC MONTOYA, CLAUDIO ([id number]), multimedia editor JR SEVERINO ([id number]) on 08/13/2020 12:42:26 PM Referred By: LARISA Confirmed By:CLAUDIO DEXTER MD
--- NOTE | 2020-08-09 10:55 | RAD_ITS ---
STUDY: X-RAY CHEST REASON FOR EXAM: Male, 80 years old. INCREASED WEAKNESS AND DRY HEAVING TECHNIQUE: Single AP portable view of the chest. COMPARISON: Comparison is made with prior study dated 07/19/2020. FINDINGS: EKG electrodes are seen. The lungs are clear and expanded. There is no demonstrated pleural abnormality. Sternal cerclage wires and vascular clips are present from a prior sternotomy and coronary artery bypass graft procedure (CABG). Normal mediastinum and heaven. Normal visualized pulmonary arteries. Normal visualized aortic arch and descending thoracic aorta. Normal visualized thoracic spine. Normal visualized ribs, clavicles, and shoulders. There is no demonstrated abnormality of the visualized soft tissue structures of the upper abdomen. RAD/Chest 1 View (Portable) IMPRESSION: The lungs are clear. Electronically Signed: Manny Valle, at 11:15 EDT , Service support ,
--- NOTE | 2020-08-09 10:55 | ED.VIS.GEN ---
History of Present Illness Chief Complaint: Weakness Informant: Patient Onset: Days Context: Gradual Onset Timing: Continuous Narrative: Patient is an 80-year-old male with history of atrial fibrillation, on Eliquis and metoprolol, as well as congestive heart failure and for exacerbation of CHF presenting with generalized weakness and malaise. Patient states he is has been feeling well for the past day or 2. Today he also started having nausea and dry heaves. States has been plan with all his medications. He does note some slight dyspnea on exertion but denies any chest pain, cough, orthopnea, leg swelling, vomiting or other associated symptoms. No fever or chills. No other complaints at this time. Past Medical History - Allergies and Home Meds Allergies/Adverse Reactions: Allergies spironolactone Allergy (Verified 08/09/20 10:49) severe weakness lisinopril Adverse Reaction (Mild, Verified 08/09/20 10:49) Dry cough amiodarone Adverse Reaction (Verified 08/09/20 10:49) toxicity Prior records reviewed: Yes Past Medical History: - - Atrial fibrillation, CHF, coronary artery disease Surgical History: coronary bypass surgery Smoking Status: Never smoker - Family History Paternal Family History: Family History (Last Reviewed 05/01/20 @ 14:[address] Jason Lemus MD) Sister Diabetes Sister Colon cancer Diabetes CVA (cerebral vascular accident) Sister Diabetes Brother Heart disease Diabetes Family History: Reports: No pertinent history Maternal Family History: Family History (Last Reviewed 05/01/20 @ 14:[address] Jason Lemus MD) Sister Diabetes Sister Colon cancer Diabetes CVA (cerebral vascular accident) Sister Diabetes Brother Heart disease Diabetes Family History: Reports: No pertinent history Review of Systems General: Reports: Malaise. Denies: Chills, Fever, Sweats Eyes: Denies: Visual changes - bilaterally, Diplopia ENT: Denies: Rhinorrhea, Sore throat Cardiovascular: Denies: Chest pain, Palpitations Respiratory: Denies: Dyspnea, Cough, Dyspnea on exertion Gastrointestinal: Reports: Nausea, Vomiting - Dry heaves. Denies: Abdominal pain, Diarrhea, Melena, Hematochezia Genitourinary: Denies: Dysuria, Hematuria, Frequency Musculoskeletal: Denies: Back pain, Extremity Pain Skin: Denies: Rash, Wounds Neurological: Denies: Headache, Weakness, Numbness Physical Exam Vital Signs/Narrative: Vital Signs Temp Pulse Resp BP Pulse Ox 08/09/20 10:49 135 H 21 H 106/82 H 98 08/09/20 10:45 97.6 F L 147 H 24 H 106/82 H 99 Inital Vital Signs reviewed: Yes General: Well nourished, Well developed, No Acute Distress Head: Normocephalic, Atraumatic Eyes: Perrl, EOMI ENT: Moist mucous membranes, No rhinorrhea Neck: Supple, Nontender, No JVD Cardiovascular: No murmurs, Irregular, Tachycardia Respiratory: No distress, CTA bilaterally, Chest nontender, - - No Crackles or rales present Abdomen: Soft, Nontender, Nondistended, Normal bowel sounds Back: Nontender, Normal Inspection. Negative for: CVA tenderness Extremities: Nontender, No edema Skin: Normal color, No rash. Negative for: Diaphoresis Neurological: Alert, Oriented x3, Cranial nerves II-XII grossly intact, Normal Strength, Normal Sensation Psychological: Normal affect, Normal Mood Diagnostic/Tx/Re-eval Chest X-Ray - ED: 1 View, Read by ED Physician, Read by Radiologist, No Acute Disease Clinical Impression(s) from Imaging Studies Chest X-Ray 08/09/20 10:55 IMPRESSION: The lungs are clear. Electronically Signed: Manny Valle, at 11:15 EDT , Service support , Laboratory Data 08/09/20 08/09/20 08/09/20 11:15 11:15 11:15 WBC 10.2 RBC 4.94 Hgb 14.6 Hct 46.1 MCV 93.3 MCH 29.6 MCHC 31.7 L RDW Std Deviation 43.3 RDW Coeff of Shashank 12.6 Plt Count 131 L MPV 13.9 H Immature Gran % (Auto) 0.200 Neut % (Auto) 71.3 H Lymph % (Auto) 18.9 L [place] % (Auto) 9.2 Eos % (Auto) 0.0 Baso % (Auto) 0.4 Absolute Neuts (auto) 7.3 Absolute Lymphs (auto) 1.94 Nucleated RBC % 0 Reactive Lymphocytes 1+ Sodium 134 L Potassium 4.6 Chloride 97 L Carbon Dioxide 27.0 Anion Gap 10 BUN 42 H Creatinine 2.34 H Estim Creat Clear Calc 23.51 Est GFR (MDRD) Af Amer 34 L Est GFR (MDRD) Non-Af 29 L BUN/Creatinine Ratio 17.9 Glucose 306 H Calcium 10.3 H Magnesium 2.3 Troponin I 0.446 H B-Natriuretic Peptide 2835.0 H - Rhythm Strip Rhythm Strip: A-fib Rate: 137 Ectopy: None - EKG Initial EKG Interpretation: Atrial Fibrillation, - - Atrial fibrillation with RVR at a rate of 137 Nonspecific interventricular block Strain pattern present in the inferior and lateral leads QTc 543 Follow-up EKG Interpretation: Atrial Fibrillation, - - Atrial fibrillation at a rate of 74 with a left bundle branch block No ischemic ischemic changes Rate controlled now compared to prior EKG - Medical Decision Making Patient is evaluated for generalized malaise. He is significantly tachycardic in the emergency room and found to be in atrial fibrillation with RVR. three 5 mg push doses of metoprolol with no significant improvement of his rate. Lab work is remarkable for significantly elevated proBNP which does appear to be at his baseline however clinically he does not appear to be fluid overloaded and he is clear breath sounds. Chest x-ray is not consistent with acute exacerbation. He also has an CATE as well as an elevation of his troponin. Case is discussed with cardiology on-call, Dr. Rdz, who is agreeable with admission to the medicine service recommends Cardizem drip for further rate control. Patient does have good rate control with a Cardizem drip but does become hypotensive. He is given a small fluid bolus and does start to have improvement of his blood pressure. His Cardizem drip was turned off. Patient be admitted to the PCU for further cardiac monitoring and treatment. He is started with gentle hydration. He is given a liter bolus per admitting physician in the ER as well. Patient remains hemodynamically stable and I think will be stable for the PCU at time of disposition. He does have continued episodes of nausea and dry heaving. He is given a total of 8 mg of Zofran and then 6.125 mg of Phenergan for this. ED Disposition - Plan for ED Patient: Disposition: Acute Care [facility] Diagnosis: Atrial fibrillation with rapid ventricular response, Elevated troponin, Acute kidney injury superimposed on chronic kidney disease, Nausea and vomiting
[2020-08-09 11:26] LABS: Absolute Lymphocyte Count 1.94 X10^3/uL (0.83-4.51); Absolute Neutrophil Count 7.3 X10^3/uL (2.0-7.7); Basophil# 0.04 X10^3/uL; Basophil% 0.4 % (0-1); Differential Indicated SCAN CRITERIA MET; Hematocrit 46.1 % (40-54); Hemoglobin 14.6 g/dL (13.0-16.5); Lymphocyte # 1.94 X10^3/ul (4.0); Lymphocyte % 18.9 % (19-41); Mean Corp Hgb Conc 31.7 g/dL (32-36); Mean Corpuscular Hgb 29.6 pg (27.0-32.0); Mean Corpuscular Volume 93.3 fL (80-94); Mean Platelet Vol. 13.9 fl (6.2-12.0); Monocyte# 0.94 X10^3/uL; Monocyte% 9.2 % (0-10); NRBC Flagged by Analyzer 0 % (0-5); Neutrophil % 71.3 % (47-70); POSITIVE MORPHOLOGY YES; Platelet Count 131 K/mm3 (150-450); RBC Distribution Width CV 12.6 % (11.6-14.6); RBC Distribution Width SD 43.3 fl (35.1-43.9); Red Blood Count 4.94 M/mm3 (4.6-6.2); White Blood Count 10.2 K/mm3 (4.4-11.0)
[2020-08-09 11:41] LABS: Anion Gap 10 (5-15); BUN 42 mg/dL (7-18); BUN/Creat Ratio 17.9 RATIO (10-20); Calcium,Total 10.3 mg/dL (8.5-10.1); Chloride 97 mmol/L (98-107); Creatinine, Serum 2.34 mg/dL (0.70-1.30); EST Glomerular Filtration Rate 29 mL/min (>60); Est Glom Filt Rate - Afr Amer 34 mL/min (>60); Estimated Creatinine Clearance 23.51 ml/min; Glucose 306 mg/dL (74-106); Magnesium 2.3 mg/dL (1.6-2.6); Potassium 4.6 mmol/L (3.5-5.1); Sodium Level 134 mmol/L (136-145)
[2020-08-09] MEDS: Ondansetron 4 MG/2 ML Vial IV ×2 (11:50→13:54)
[2020-08-09 11:51] LABS: Reactive Lymphocyte 1+
[2020-08-09] MEDS: Metoprolol Tartrate 5 MG/5 ML Vial IV ×3 (11:52→12:32)
[2020-08-09] MEDS: dilTIAZem 25 MG/5 ML Vial 15 MG IV BOLUS (13:25)
--- NOTE | 2020-08-09 13:36 | NURSING ---
114 DALIA AFMELINDA RVR, CATE
--- NOTE | 2020-08-09 14:22 | HP.PCM_ITS ---
<Odilia Mcmullen INDEPENDENT FILM MAKER - Last Filed: 08/09/20 16:50> Problem List (1) Elevated troponin Status: Acute (2) Atrial fibrillation with rapid ventricular response Status: Acute (3) Acute on chronic systolic and diastolic heart failure, NYHA class 2 Status: Acute (4) Amiodarone toxicity Status: Resolved (5) Atherosclerosis of coronary artery of [place] heart with angina pectoris Status: Chronic Qualifiers: Coronary Disease-Associated Artery/Lesion type: [place] artery Qualified Code(s): I25.119 - Atherosclerotic heart disease of [place] coronary artery with unspecified angina pectoris (6) History of non-ST elevation myocardial infarction (NSTEMI) Status: Chronic (7) H/O coronary artery bypass surgery Status: Chronic Comment: CABG x 4: COLES-LAD, SVG-D1, SVG to proximal end of SVG to diagonal going to OM 2, and SVG-RPDA 10/30/16 (8) Ischemic cardiomyopathy Status: Chronic (9) Secondary pulmonary arterial hypertension Status: Chronic (10) Paroxysmal atrial fibrillation Status: Chronic (11) Left bundle branch block (LBBB) Status: Chronic (12) Essential (primary) hypertension Status: Chronic (13) Hyperlipidemia Status: Chronic Qualifiers: Hyperlipidemia type: unspecified Qualified Code(s): E78.5 - Hyperlipidemia, unspecified History of Present Illness Date of Admission: 08/09/20 Chief Complaint: Weakness. The patient is a 80 year old M who presents to the emergency room due to weakne ss. Patient was recently discharged 07/21/2020 due to acute on chronic heart failure. Patient also noted to have atrial fibrillation with RVR and underwent cardioversion 07/18/2020. Patient states this morning he suddenly developed dry heaves. This is continued throughout today. He denies abdominal pain, diarrhea. [facility] nurse visited house today and patient states he felt very weak. His pulse was noted to be low and they had difficulty obtaining blood pressure. Patient denies recent illness. He does state he has had about 7 pound weight gain since previous discharge. He denies syncope. Denies fever, chills. He has a past medical history of atrial fibrillation, heart failure with reduced ejection fraction/ischemic cardiomyopathy, CAD with history of CABG, history of CVA, type 2 diabetes mellitus, hypertension, hyperlipidemia. Past Medical History Past Medical History (Chronic Problems): Chronic Problems (Last Reviewed 05/01/20 @ 14:[address] Jason Lemus MD) Atherosclerosis of coronary artery of [place] heart with angina pectoris (Chronic) History of non-ST elevation myocardial infarction (NSTEMI) (Chronic 05/2017) 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) CABG x 4: COLES-LAD, SVG-D1, SVG to proximal end of SVG to diagonal going to OM 2, and SVG-RPDA 10/30/16 Ischemic cardiomyopathy (Chronic) Secondary pulmonary arterial hypertension (Chronic) Paroxysmal atrial fibrillation (Chronic) Left bundle branch block (LBBB) (Chronic) Essential (primary) hypertension (Chronic) Hyperlipidemia (Chronic) Medical History: Medical History (Last Reviewed 05/01/20 @ 14:[address] Jason Lemus MD) Atherosclerosis of coronary artery of [place] heart with angina pectoris (Chronic) I25.119 History of non-ST elevation myocardial infarction (NSTEMI) (Chronic) Onset Date: 05/2017 I25.2 Ischemic cardiomyopathy (Chronic) I25.5 Secondary pulmonary arterial hypertension (Chronic) I27.21 Paroxysmal atrial fibrillation (Chronic) I48.0 Left bundle branch block (LBBB) (Chronic) I44.7 Essential (primary) hypertension (Chronic) I10 Hyperlipidemia (Chronic) E78.5 Barretts esophagus K22.70 Bilateral pleural effusion Onset Date: 11/2019 J90 CKD (chronic kidney disease) N18.9 Prostate cancer C61 Transient ischemic attack G45.9 Type 2 diabetes mellitus E11.9 Acute respiratory failure with hypoxemia (Resolved) J96.01 Dyspnea on exertion (Resolved) R06.09 Shortness of breath (Resolved) R06.02 Allergies spironolactone Allergy (Verified 08/09/20 10:49) severe weakness lisinopril Adverse Reaction (Mild, Verified 08/09/20 10:49) Dry cough amiodarone Adverse Reaction (Verified 08/09/20 10:49) toxicity Home Medications: Ambulatory Orders Medication Instructions Recorded cholecalciferol (vitamin D3) 125 5,000 unit PO DAILY 02/16/19 mcg (5,000 unit) capsule Acetaminophen [Tylenol] 500 mg PO DAILY PRN PRN 07/17/20 Apixaban [Eliquis] 2.5 mg PO BID 07/17/20 Aspirin E.C. [Ecotrin] 81 mg PO DAILY@0800 07/17/20 Glimepiride [Amaryl] 2 mg PO DAILY 07/17/20 Duloxetine Hcl [Cymbalta] 30 mg PO DAILY 08/09/20 Furosemide [Lasix] 60 mg PO BID 08/09/20 Metoprolol Tartrate 50 mg PO BID 08/09/20 Potassium Chloride [Klor-Con 10] 10 meq PO BID 08/09/20 Surgical History: Surgical History (Last Reviewed 08/09/20 @ 14:36 by Odilia Mcmullen INDEPENDENT FILM [employer]KER, INDEPENDENT FILM MAKER-C) H/O coronary artery bypass surgery (Chronic) Onset Date: 10/30/16 Z95.1 CABG x 4: COLES-LAD, SVG-D1, SVG to proximal end of SVG to diagonal going to OM 2, and SVG-RPDA 10/30/16 History of cardioversion Onset Date: 03/30/20 Z98.890 History of colonoscopy Z98.890 History of dental surgery Z92.89 History of esophagogastroduodenoscopy (EGD) Z98.890 History of left heart catheterization Onset Date: 07/23/18 Z98.890 [place] History of prostatectomy Z90.79 Surgical History: coronary bypass surgery Psychiatric History: No pertinent psych hx Lives: Spouse/ Significant Other Smoking Status: Never smoker Alcohol: None Drugs: None - *Family History Paternal Family History: Family History (Last Reviewed 05/01/20 @ 14:[address] Jason Lemus MD) Sister Diabetes Sister Colon cancer Diabetes CVA (cerebral vascular accident) Sister Diabetes Brother Heart disease Diabetes History Items: - - Denies known paternal medical history including cardiac history. Maternal Family History: Family History (Last Reviewed 05/01/20 @ 14:[address] Jason Lemus MD) Sister Diabetes Sister Colon cancer Diabetes CVA (cerebral vascular accident) Sister Diabetes Brother Heart disease Diabetes History Items: - - Denies known maternal medical history including cardiac history. Review of Systems Constitutional: Reports: Malaise, Weakness. Denies: Chills, Fever, Weight Change HEENT: Denies: Head Aches, Sinus Congestion, Sinus Drainage Cardiovascular: Denies: Chest Pain, Chest Pressure, Palpitations, Syncope Respiratory: Reports: Shortness of Breath. Denies: Cough, Sputum production, Wheezing Gastrointestinal: Reports: Nausea. Denies: Abdominal Pain, Constipation, Diarrhea, Vomiting Genitourinary: Denies: Dysuria Musculoskeletal: Denies: Joint Pain, Joint Tenderness Skin: Denies: Rash, Wounds Neurological: Denies: Numbness, Tingling, Focal weakness Psychiatric: Denies: Anxiety, Depression, Homicidal Ideations, Suicidal Ideations Hematologic/ Lymphatic: Denies: Easy Bruising, Easy Bleeding VTE Information - Inpt Only VTE Present on Admission: No VTE Mechan Device Prophylaxis: None VTE Pharm Prophylaxis ordered?: No Reason prophylaxis not ordered:: Treatment Not Indicated - Already on Eliquis Patient Problems: Active and Suspected Problems (Last Reviewed 05/01/20 @ 14:[address] Jason Lemus MD) Elevated troponin (Acute) Atrial fibrillation with rapid ventricular response (Acute) Acute on chronic systolic and diastolic heart failure, NYHA class 2 (Acute) - Physical Exam Vitals/I&O's: Vital Signs Temp Pulse Resp BP Pulse Ox 97.6 F L 74 20 H 82/64 L 100 08/09/20 10:45 08/09/20 14:12 08/09/20 14:12 08/09/20 14:12 08/09/20 14:12 Oxygen Delivery Method Room Air Weight: 150 lb 9.211 oz Body Mass Index (BMI) 22.2 Intake and Output for Last 24 Hours 08/07/20 08/08/20 08/09/20 23:59 23:59 23:59 Intake Total 2.08 / 2.08 Balance 2.08 / 2.08 General: Alert, Oriented x3, Cooperative HEENT: Atraumatic, PERRLA, EOMI, Normocephalic Neck: Supple, No JVD, Negative Carotid Bruits Lungs: Clear to auscultation, Diminished Cardiovascular: - - Atrial fibrillation, tachycardic Abdomen: Bowel Sounds Present, Soft, Non Tender, Non-Distended Extremities: No clubbing, No cyanosis, No edema, Capillary Refill Less than 3 Seconds Skin: No rashes, No breakdown Musculoskeletal: No Tenderness to Palpation of Joints or Extremities Neurological: Cranial nerves II-XII grossly intact, Neuro grossly intact Psych/Mental Status: Flat Affect Laboratory Results 08/09/20 11:15: WBC 10.2, RBC 4.94, Hgb 14.6, Hct 46.1, MCV 93.3, MCH 29.6, MCHC 31.7 L, RDW Std Deviation 43.3, RDW Coeff of Shashank 12.6, Plt Count 131 L, MPV 13.9 H, Immature Gran % (Auto) 0.200, Neut % (Auto) 71.3 H, Lymph % (Auto) 18.9 L, Hyde % (Auto) 9.2, Eos % (Auto) 0.0, Baso % (Auto) 0.4, Absolute Neuts (auto) 7.3, Absolute Lymphs (auto) 1.94, Nucleated RBC % 0, Reactive Lymphocytes 1+ 08/09/20 11:15: Sodium 134 L, Potassium 4.6, Chloride 97 L, Carbon Dioxide 27.0, Anion Gap 10, BUN 42 H, Creatinine 2.34 H, Estim Creat Clear Calc 23.51, Est GFR (MDRD) Af Amer 34 L, Est GFR (MDRD) Non-Af 29 L, BUN/Creatinine Ratio 17.9, Glucose 306 H, Calcium 10.3 H, Magnesium 2.3, Troponin I 0.446 H 08/09/20 11:15: B-Natriuretic Peptide 2835.0 H Current Medications Diltiazem HCl 125 mg/ Dextrose 125 mls @ 5 mls/hr IV .Q25H CUAUHTEMOC; Protocol Stop: 08/10/20 13:59 Last Titration: 08/09/20 13:51 Dose: 0 mg/hr, 0 mls/hr Documented by: Sodium Chloride () 1,000 mls @ 100 mls/hr IV .Q10H CUAUHTEMOC Stop: 08/09/20 23:29 Sodium Chloride () 500 mls @ 999 mls/hr IV .Q31M ONE Stop: 08/09/20 14:25 Last Admin: 08/09/20 13:56 Dose: 999 mls/hr Documented by: Assessment/Plan All Active Problems (Last Reviewed 05/01/20 @ 14:[address] Jason Lemus MD) Elevated troponin (Acute) Atrial fibrillation with rapid ventricular response (Acute) Acute on chronic systolic and diastolic heart failure, NYHA class 2 (Acute) Amiodarone toxicity (Resolved) Acute respiratory failure with hypoxemia (Resolved) Dyspnea (Resolved) Dyspnea on exertion (Resolved) Shortness of breath (Resolved) 1. Atrial fibrillation with variable rate-[facility] noted the patient's heart rate was 25 during home visit today. Heart rate in ED 140s. Patient initially started on Cardizem drip however became hypotensive. Given fluctuating rate, will consult cardiology. Patient underwent recent cardioversion 07/18/2020. Continue Eliquis. Continue home metoprolol regimen. Patient has been on amiodarone in the past and was unable to tolerate. 2. Hypotension-Cardizem drip held. Fluid bolus in ER. Avoid further IV fluids given acute CHF appearance/significantly elevated BNP. 3. Elevated troponin-possible demand ischemia related to #1. Trend enzymes. EKG without acute ischemia. 4. Chronic heart failure with reduced ejection fraction/Ischemic cardiomyopathy- BNP 2835. Chest x-ray unremarkable. Echocardiogram February 2020 demonstrated an EF 45%, stage III diastolic dysfunction, pulmonary artery systolic pressure 44 mmHg. Patient underwent nuclear stress test 03/27/2020 which showed gated ejection fraction 29%, no evidence of ischemia, cardiomyopathy. Strict I&O. Daily weight. Hold Lasix due to hypotension. 5. CAD with history of CABG- Continue Eliquis, statin, metoprolol. 6. History of CVA-statin, Eliquis. 7. Type 2 diabetes [id number]-Ofak-Dterg with sliding scale insulin. Repeat hemoglobin A1c. Hemoglobin A1c April 07 2010%. Appears he has only been taking glimepiride. 8. Hypertension-stable, continue current regimen with hold parameters. 9. Hyperlipidemia-continue statin. DVT prophylaxis-Eliquis This patient was seen by CHANTEL Kong under the supervision of Dr. Frost. <Prosper Frost - Last Filed: 08/09/20 17:31> History of Present Illness The patient is a 80 year old M who was discharged on 07/21/2001/06/2020 after management of acute on chronic heart failure, Lasix 60 mg p.o. twice daily. Patient was found driving, heart rate 25 by home health care nurse as per Nedra marquez. Patient also said he is feeling very tired, weak and shortness of breath on exertion for few days. In ER, patient was found to be in A. fib with RVR, heart rate about 150/min. Patient was given Cardizem 15 mg IV bolus that slowed the heart rate but he still tachycardic and thereafter started on Cardizem drip. Patient was also dehydrated and was given 500 normal saline bolus probably over diuresed at home. Chest x-ray is reviewed and is clear. Denies fever or chills. In ED blood pressure dropped, in 70s and Cardizem drip was discontinued. Patient resuscitated with IV fluid normal saline bolus and admitted to PCU. EKG A. fib with RVR at 137 beats per minute with T inversion in V5 to V6 similar to previous EKG. During previous admission patient was also cardioverted on 07/18/2020. Past Medical History Medical History: Medical History (Last Reviewed 05/01/20 @ 14:[address] Jason Lemus MD) Atherosclerosis of coronary artery of [place] heart with angina pectoris (Chronic) I25.119 History of non-ST elevation myocardial infarction (NSTEMI) (Chronic) Onset Date: 05/2017 I25.2 Ischemic cardiomyopathy (Chronic) I25.5 Secondary pulmonary arterial hypertension (Chronic) I27.21 Paroxysmal atrial fibrillation (Chronic) I48.0 Left bundle branch block (LBBB) (Chronic) I44.7 Essential (primary) hypertension (Chronic) I10 Hyperlipidemia (Chronic) E78.5 Barretts esophagus K22.70 Bilateral pleural effusion Onset Date: 11/2019 J90 CKD (chronic kidney disease) N18.9 Prostate cancer C61 Transient ischemic attack G45.9 Type 2 diabetes mellitus E11.9 Acute respiratory failure with hypoxemia (Resolved) J96.01 Dyspnea on exertion (Resolved) R06.09 Shortness of breath (Resolved) R06.02 Allergies spironolactone Allergy (Verified 08/09/20 10:49) severe weakness lisinopril Adverse Reaction (Mild, Verified 08/09/20 10:49) Dry cough amiodarone Adverse Reaction (Verified 08/09/20 10:49) toxicity Surgical History: Surgical History (Last Reviewed 08/09/20 @ 14:36 by Odilia Mcmullen NP, INDEPENDENT FILM MAKER-C) H/O coronary artery bypass surgery (Chronic) Onset Date: 10/30/16 Z95.1 CABG x 4: COLES-LAD, SVG-D1, SVG to proximal end of SVG to diagonal going to OM 2, and SVG-RPDA 10/30/16 History of cardioversion Onset Date: 03/30/20 Z98.890 History of colonoscopy Z98.890 History of dental surgery Z92.89 History of esophagogastroduodenoscopy (EGD) Z98.890 History of left heart catheterization Onset Date: 07/23/18 Z98.890 [place] History of prostatectomy Z90.79 - *Family History Paternal Family History: Family History (Last Reviewed 05/01/20 @ 14:[address] Jason Lemus MD) Sister Diabetes Sister Colon cancer Diabetes CVA (cerebral vascular accident) Sister Diabetes Brother Heart disease Diabetes Maternal Family History: Family History (Last Reviewed 05/01/20 @ 14:[address] Jason Lemus MD) Sister Diabetes Sister Colon cancer Diabetes CVA (cerebral vascular accident) Sister Diabetes Brother Heart disease Diabetes Objective: Physical exam General: Alert, Oriented x3, Cooperative HEENT: Atraumatic, PERRLA, EOMI, Normocephalic Oral: No Gingival or Mucosal Lesions/ Ulcerations Neck: Supple, No JVD, Negative Carotid Bruits Lungs: Air entry diminished in bilateral lung bases. No crepitation/rhonchi. Mild tachypnea, respiratory rate 20-24 per note in ER Cardiovascular: Irregular heartbeat with A. fib, tachycardia normal S1, Normal S 2, No murmurs Abdomen: Bowel Sounds Present, Soft, Non Tender, Non-Distended : No renal angle tenderness. No suprapubic tenderness. Extremities: No edema, Capillary Refill Less than 3 Seconds Skin: No ulcers. No rash. Musculoskeletal: No Tenderness to Palpation of Joints or Extremities Neurological: Cranial nerves II-XII grossly intact, Deep Tendon Reflexes 2+/4 and Symmetrical, Neuro grossly intact Psych/Mental Status: Normal Affect, Appropriate. - Physical Exam Vitals/I&O's: Vital Signs Temp Pulse Resp BP Pulse Ox 98.1 F 115 H 16 105/67 96 08/09/20 16:54 08/09/20 16:54 08/09/20 16:54 08/09/20 16:54 08/09/20 16:54 Oxygen Delivery Method Room Air Weight: 151 lb Body Mass Index (BMI) 22.3 Intake and Output for Last 24 Hours 08/07/20 08/08/20 08/09/20 23:59 23:59 23:59 Intake Total 1367.88 / 1367.88 Balance 1367.88 / 1367.88 Laboratory Results 08/09/20 11:15: WBC 10.2, RBC 4.94, Hgb 14.6, Hct 46.1, MCV 93.3, MCH 29.6, MCHC 31.7 L, RDW Std Deviation 43.3, RDW Coeff of Shashank 12.6, Plt Count 131 L, MPV 13.9 H, Immature Gran % (Auto) 0.200, Neut % (Auto) 71.3 H, Lymph % (Auto) 18.9 L, Hyde % (Auto) 9.2, Eos % (Auto) 0.0, Baso % (Auto) 0.4, Absolute Neuts (auto) 7.3, Absolute Lymphs (auto) 1.94, Nucleated RBC % 0, Reactive Lymphocytes 1+ 08/09/20 11:15: Sodium 134 L, Potassium 4.6, Chloride 97 L, Carbon Dioxide 27.0, Anion Gap 10, BUN 42 H, Creatinine 2.34 H, Estim Creat Clear Calc 23.51, Est GFR (MDRD) Af Amer 34 L, Est GFR (MDRD) Non-Af 29 L, BUN/Creatinine Ratio 17.9, Glucose 306 H, Calcium 10.3 H, Magnesium 2.3, Troponin I 0.446 H 08/09/20 11:15: B-Natriuretic Peptide 2835.0 H Current Medications Apixaban (Apixaban 2.5 Mg Tablet) 2.5 mg PO BID [facility] Aspirin (Aspirin E.C. 81 Mg Tablet) 81 mg PO DAILY@0800 [facility] Cholecalciferol (Cholecalciferol (Vit D3) 1,000 Unit (25mcg)) 5,000 unit PO DAILY [facility]HTEM[facility] Duloxetine HCl (Duloxetine Hcl 30 Mg Capsule) 30 mg PO DAILY [facility] Glimepiride (Glimepiride 2 Mg Tablet) 2 mg PO DAILY@0800 [facility] Sodium Chloride () 1,000 mls @ 100 mls/hr IV .Q10H CUAUHTEMOC Stop: 08/09/20 23:29 Metoprolol Tartrate (Metoprolol Tartrate 50 Mg Tablet) 50 mg PO BID [facility] Sodium Chloride (0.9% Saline Lock 10 Ml Syringe) 10 - 40 ml IV UD PRN PRN Reason: SALINE FLUSH Assessment/Plan This patient was seen in conjunction with Odilia PRIEST. I have independently interviewed and examined the patient and reviewed pertinent history, examination findings, laboratory and plan of management. I have reviewed the note and agree with the documented findings with the few additional points. In brief, patient is 80-year-old gentleman admitted with A. fib with variable rate. Patient clinically looks dehydrated and drop blood pressure on Cardizem drip after bolus, hypotensive. Patient was treated with IV fluid total of 1.5 L over 2 hours. Blood pressure recovered further admitted in PCU. Continue home metoprolol dose and Eliquis. Consult cardiology for variable rate. Hypertension: Blood pressure recovered. Continue IV fluid normal saline at 100 mils per hour with monitoring of intake and output and fluid overload discontinue for shortness of breath. Other chronic comorbidities as mentioned above. Has chronic systolic and diastolic heart failure, ischemic cardiomyopathy EF 45% stage III diastolic dysfunction, PASP 44 mm. Patient had stress test in March 2020 which showed no evidence of ischemia. I have discussed my assessment with INDEPENDENT FILM MAKEROdilia and orders have been reviewed. Living will/advanced directive/end of life care: Patient does not have living will or advanced directive. After discussion of procedures involved with full code, DNR CC arrest and DNR CC, the patient opted for full code. Patient does want artificial life support including intubation, tube feed, ventilator and/chest compression, central venous catheter, vasopressor and DC shock if needed Total time spent in [id number] encounter in discussion of advanced dir ective 16 minutes. Inpatient E&M: 91867 Disch Hosp Procedures: [id number] Advncd Care Plan 30 Min
--- NOTE | 2020-08-09 14:43 | EKG12_ITS ---
Test Reason : RHYTHM CHANGE Blood Pressure : / mmHG Vent. Rate : 074 BPM Atrial Rate : 056 BPM P-R Int : 000 ms QRS Dur : 144 ms QT Int : 442 ms P-R-T Axes : 000 -10 171 degrees QTc Int : 490 ms Atrial fibrillation Left bundle branch block Abnormal ECG Confirmed by ISACC MONTOYA, CLAUDIO ([id number]), editor city JR SEVERINO ([id number]) on 08/13/2020 12:42:45 PM Referred By: MAGY Confirmed By:CLAUDIO DEXTER MD
[2020-08-09] MEDS: 0.9% Normal Saline 1,000 ML 999 ML IV (15:17)
--- NOTE | 2020-08-09 16:00 | CASEMGMT ---
Per report from Cristobal at [facility], they sent in for heart rate of 25, unable to obtain BP, and pulse in the 60's. She states that they did call ED and Tiffany Alves at cardiology office as they had just increased pt's metoprolol does from 25mg to 50mg the day prior via [facility]. Pt's last visit, [facility] has sent him in for bradycardia, lethargy and hypotension. Figueroa SCRAP PILER and Nedra, PCU charge, updated on all at this time, voice understanding. Isaias DUNLAP CM
[2020-08-09] MEDS: proMETHazine 25 MG/ML Syringe 6.25 MG IV (16:28)
--- NOTE | 2020-08-09 18:53 | CON.PCM_ITS ---
Problem List (1) Atrial fibrillation with rapid ventricular response Status: Acute (2) Bradycardia Status: Acute (3) Hypotension Status: Acute (4) CAD (coronary artery disease) Status: Acute Qualifiers: Coronary Disease-Associated Artery/Lesion type: [place] artery [place] vs. transplanted heart: [place] heart (5) H/O coronary artery bypass surgery Status: Chronic Comment: CABG x 4: COLES-LAD, SVG-D1, SVG to proximal end of SVG to diagonal going to OM 2, and SVG-RPDA 10/30/16 (6) Ischemic cardiomyopathy Status: Chronic (7) Elevated troponin Status: Acute (8) Hyperlipidemia Status: Chronic Qualifiers: Hyperlipidemia type: unspecified Qualified Code(s): E78.5 - Hyperlipidemia, unspecified (9) Essential (primary) hypertension Status: Chronic (10) Secondary pulmonary arterial hypertension Status: Chronic (11) Acute kidney injury superimposed on chronic kidney disease Status: Chronic Reason for Consult Date of Consultation: 08/09/20 History of Present Illness: The patient is a 80 year [id number] white male with a past cardiovascular history which is included CAD, CABG, ischemic cardiomyopathy, congestive heart failure, paroxysmal atrial fibrillation, hyperlipidemia, hypertension, pulmonary hypertension, and chronic renal insufficiency, presents for further evaluation with respect to concerns of bradycardia/tachycardia, hypotension, normal troponin I levels, and acute on chronic renal insufficiency. He has been reportedly very challenging to care for with respect to his cardiac dysrhythmia which appears to be demonstrating evidence of bradycardia/tachycardia with respect to medical therapy as well as synchronized biphasic DC cardioversion and at the same time balancing his hemodynamics with respect to his blood pressure as well as his other multiple cardiovascular conditions and noncardiac conditions. He was brought to the emergency [place] today as he was reported to have a very low heart rate-potentially in the 20s-with a very low blood pressure and having concerns of nausea and dry heaves. In the emergency department he was found to have episodes of atrial fibrillation with RVR. He was treated with IV beta- blockers and IV diltiazem. He was then noted to become hypotensive. He required IV fluid resuscitation. He was eventually felt stable enough to go to the PCU for further evaluation and care. At the time of his evaluation the PCU he appeared to be resting comfortably. He denied ongoing chest discomfort or acute respiratory related issues. He stated he felt weak. He did note that he had had nausea and dry heaves. His troponin I level has been indeterminant. Is been noted to be indeterminate in the past as well. His ECG demonstrated the appearance of atrial fibrillation with a left bundle branch block pattern. He has undergone noninvasive and invasive cardiovascular evaluation in the past remotely and recently. The results of his studies are noted below. [] Past Medical History Allergies/Adverse Reactions: Allergies spironolactone Allergy (Verified 08/09/20 10:49) severe weakness lisinopril Adverse Reaction (Mild, Verified 08/09/20 10:49) Dry cough amiodarone Adverse Reaction (Verified 08/09/20 10:49) toxicity Home Medications: Ambulatory Orders Medication Instructions Recorded cholecalciferol (vitamin D3) 125 5,000 unit PO DAILY 02/16/19 mcg (5,000 unit) capsule Acetaminophen [Tylenol] 500 mg PO DAILY PRN PRN 07/17/20 Apixaban [Eliquis] 2.5 mg PO BID 07/17/20 Aspirin E.C. [Ecotrin] 81 mg PO DAILY@0800 07/17/20 Glimepiride [Amaryl] 2 mg PO DAILY 07/17/20 Duloxetine Hcl [Cymbalta] 30 mg PO DAILY 08/09/20 Furosemide [Lasix] 60 mg PO BID 08/09/20 Metoprolol Tartrate 50 mg PO BID 08/09/20 Potassium Chloride [Klor-Con 10] 10 meq PO BID 08/09/20 Past Medical History (Chronic Problems): Chronic Problems (Last Reviewed 05/01/20 @ 14:[address] Jason Lemus MD) Acute kidney injury superimposed on chronic kidney disease (Chronic) Atherosclerosis of coronary artery of [place] heart with angina pectoris (Chronic) History of non-ST elevation myocardial infarction (NSTEMI) (Chronic 05/2017) 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) CABG x 4: COLES-LAD, SVG-D1, SVG to proximal end of SVG to diagonal going to OM 2, and SVG-RPDA 10/30/16 Ischemic cardiomyopathy (Chronic) Secondary pulmonary arterial hypertension (Chronic) Paroxysmal atrial fibrillation (Chronic) Left bundle branch block (LBBB) (Chronic) Essential (primary) hypertension (Chronic) Hyperlipidemia (Chronic) Surgical History: coronary bypass surgery Psychiatric History: No pertinent psych hx - *Family History Paternal Family History: Family History (Last Reviewed 05/01/20 @ 14:[address] Jasno Lemus MD) Sister Diabetes Sister Colon cancer Diabetes CVA (cerebral vascular accident) Sister Diabetes Brother Heart disease Diabetes History Items: - - Denies known paternal medical history including cardiac history. Maternal Family History: Family History (Last Reviewed 05/01/20 @ 14:[address] Jason Lemus MD) Sister Diabetes Sister Colon cancer Diabetes CVA (cerebral vascular accident) Sister Diabetes Brother Heart disease Diabetes History Items: - - Denies known maternal medical history including cardiac history. Lives: Spouse/ Significant Other Smoking Status: Never smoker Alcohol: None Drugs: None Review of Systems - Review of Systems General: Reports: Weakness Cardiovascular: Denies: Chest Discomfort, Shortness of Breath, Orthopnea, PND, Peripheral Edema, Palpitations, Lightheadedness, Dizziness, Near Syncope, Syncope Respiratory: Denies: Cough, Sputum Production, Hemoptysis Gastrointestinal: Reports: Nausea, Emesis. Denies: Hematemesis, Hematochezia, Melena Genitourinary: Denies: Dysuria, Hematuria Skin: Denies: Rash Subjectve: This is a thin somewhat frail-appearing 80-year-old white male appears to be resting comfortably at the moment in no acute distress. Objective: Vital Signs Temp Pulse Resp BP Pulse Ox 98.1 F 119 H 16 105/67 96 08/09/20 16:54 08/09/20 18:14 08/09/20 16:54 08/09/20 16:54 08/09/20 16:54 Oxygen Delivery Method Room Air Weight: 151 lb Body Mass Index (BMI) 22.3 Intake and Output for Last 24 Hours 08/07/20 08/08/20 08/09/20 23:59 23:59 23:59 Intake Total 1367.88 / 1367.88 Balance 1367.88 / 1367.88 General: Awake, Alert, Oriented x 3, Cooperative, No Acute Distress HEENT: Atraumatic, Normocephalic, PERRL, EOMI, Sclera Non Icteric Neck: Supple, Good ROM Lungs: Clear to auscultation Cardiovascular: Regular Rhythm, Normal S1, Normal S2 Abdomen: Bowel Sounds Present, Soft Extremities: No edema Psych/Mental Status: Appropriate 08/09/20 11:15: WBC 10.2, RBC 4.94, Hgb 14.6, Hct 46.1, MCV 93.3, MCH 29.6, MCHC 31.7 L, Plt Count 131 L, MPV 13.9 H, Immature Gran % (Auto) 0.200, Neut % (Auto) 71.3 H, Lymph % (Auto) 18.9 L, Cobb % (Auto) 9.2, Eos % (Auto) 0.0, Baso % (Auto) 0.4, Absolute Neuts (auto) 7.3, Nucleated RBC % 0 08/09/20 11:15: Sodium 134 L, Potassium 4.6, Chloride 97 L, Carbon Dioxide 27.0, Anion Gap 10, BUN 42 H, Creatinine 2.34 H, Est GFR (MDRD) Af Amer 34 L, Est GFR (MDRD) Non-Af 29 L, BUN/Creatinine Ratio 17.9, Glucose 306 H, Calcium 10.3 H, Magnesium 2.3, Troponin I 0.446 H 08/09/20 11:15: B-Natriuretic Peptide 2835.0 H Rhythm: EKG: ECHO: 03/02/2020 Interpretation Summary Normal LV size. Mild concentric left ventricular hypertrophy. Left ventricular systolic function is normal. The estimated ejection fraction is 45 %. Stage 3 diastolic dysfunction. Pulmonary artery systolic pressure is 44 mmHg. Mild pulmonary hypertension. Stress Test: 03/27/2020 Stress Test Report Pharmacologic myocardial perfusion stress test. 80-year-old man with a history of atrial fibrillation and a cardiomyopathy. Stress protocol: Resting EKG demonstrates atrial fibrillation with a rate of 106 bpm. Left bundle branch block pattern is noted. The resting blood pressure was 114/70 mmHg. 0.4 mg of regadenoson was infused per usual protocol followed by rapid intravenous saline flush injection. Continuous EKG monitoring was performed. The maximum heart rate attained was 120 bpm which was 86% of maximum predicted heart rate. The maximum workload was 1 metabolic equivalent. The resting blood pressure was 114/70 with a final blood pressure 102/68 mmHg. Myocardial perfusion protocol. 12.0 mCi of technetium 99m sestamibi was injected at rest. 0.4 mg of regadenoson was infused per usual protocol peak infusion 36.0 mCi of technetium 99m sestamibi was injected stress and rest images were reconstructed and compared in the short axis vertical and horizontal long axis. Gated images were also obtained. Review of the stress images demonstrate normal uptake of tracer noted in all areas of the myocardium. The basal inferior wall appears to have reduced perfusion on the stress and rest images suggestive of a basal previous inferior infarct. Gated SPECT analysis: The gated ejection fraction is 29%. Conclusion: Cardiomyopathy. Normal pharmacologic myocardial perfusion stress test. Cardiac Cath: 07/23/2018 CONCLUSIONS Patent saphenous vein graft to the right coronary artery, saphenous vein graft to the diagonal vessel, saphenous vein graft to obtuse marginal branch. The left internal mammary artery to the left anterior descending artery is also patent. Severe [place] vessel disease of the left system. RECOMMENDATIONS Medical therapy DESCRIPTION OF PROCEDURE The patient arrived to the procedure lab. The risks and benefits of the procedure as well as a full description of our services here and current unavailability of surgical backup were fully explained to the patient and/or their significant other prior to the catheterization. The Timeout was completed, verifying the correct patient and procedure. The patient's procedural site was prepped and draped in the usual fashion. Local anesthetic was given subcutaneously to right groin region with Lidocaine 2%. Using a modified Seldinger technique, arterial access was obtained via the right femoral artery, a 5Fr sheath was inserted. Left Coronary Artery selective angiography was performed in multiple views using a 5 Fr. JL4 catheter. Right Coronary Artery selective angiography was then performed in multiple views using a 5 Fr. 3DRC (Greg) catheter. Saphenous Vein graft to the RPDA selective angiography was performed in multiple views using a 5 Fr. 3DRC (Greg) catheter. Saphenous Vein graft to the DIAG 1 selective angiography was performed in multiple views using a 5 Fr. 3DRC (Greg) catheter. Left internal mammary artery graft to the LAD selective angiography was performed in multiple views using a 5 Fr. IM catheter. Saphenous Vein graft to the OM 2 selective angiography was performed in multiple views using a 5 Fr. JR 4 catheter. Ascending (root) aorta selective angiography was then performed in single view using a pigtail catheter.. Ascending (root) aorta selective angiography was then performed in single view using a pigtail catheter.. Saphenous Vein graft to the OM 2 and diag branch, selective angiography was performed in multiple views using a 5 Fr. AR MOD catheter.The arterial sheath was pulled and a Mynx closure device was deployed for hemostasis CORONARY ANGIOGRAPHY DOMINANCE: Right Dominant LEFT MAIN: Mild calcification LEFT ANTERIOR DECENDING ARTERY: PROX LAD: is occluded CIRCUMFLEX ARTERY: Mild luminal irregularities less than 30% RIGHT CORONARY ARTERY: Mild luminal irregularities less than 30% MID RCA: Moderate luminal irregularities up to 50% GRAFTS: Saphenous Vein graft to the RPDA is patent COLES graft to the Mid LAD is patent Saphenous Vein graft to the 2nd OM is patent Saphenous Vein graft to the 1st Diagonal is patent AORTIC ROOT: Angiographically normal CT Surgery: 10/26/2016: [place], [place] Left internal mammary artery to the left anterior descending artery, a saphenous vein graft to the diagonal vessel, a saphenous vein graft to the second obtuse marginal vessel arising from the SVG to the diagonal branch, a saphenous vein graft to the first obtuse marginal vessel, and a saphenous vein graft to the posterior descending artery. CXR: Preliminary evaluation: Post open heart surgery changes: No acute cardiopulmonary disease process appreciated: Please see official report Assessment/Plan 1. Atrial fibrillation with rapid ventricular response The patient has had recurrent atrial fibrillation with rapid ventricular response. It appears that he has undergone medical therapy and recently in June of this year synchronized biphasic DC cardioversion. However he has continued atrial fibrillation with episodes of rapid ventricular response. It appears when the patient's rate limiting medications have been increased that he either becomes bradycardic and/or hypotensive. He has been attempted on antiarrhythmic therapy with amiodarone but apparently was intolerant of such. He has remained on anticoagulant therapy. Based upon concerns of the difficulty controlling his rate with bradycardia and tachycardia and concerns of associated hypotension he may need to be considered for tertiary care center evaluation by electrophysiology for either atrial fibrillation ablation or possibly AV node ablation with permanent pacemaker support. 2. Bradycardia He was reported as being markedly bradycardic prior to his arrival at the hospital. He was then noted to be tachycardic. Again there has been reports that he has been difficult to control his tachydysrhythmia with rate limiting medication because of concerns of bradycardia dysrhythmias as well as hypotensi on. At the moment his medicines will be evaluated. They can be adjusted in attempt to avoid bradycardia as well as significant tachycardia. His blood pressures will be watched. However it would be reasonable to consider him for tertiary care center evaluation for the possibility of either atrial fibrillation ablation or AV node ablation with permanent pacemaker support. 3. Hypotension The patient did receive rate limiting medications. He became hypotensive. He received IV fluid resuscitation. His blood pressures have improved. His medications will have to be monitored as well as his volume status to avoid significant hypotension. 4. CAD status post CABG Patient has undergone revascularization therapy as noted above in [facility]. He has undergone recent noninvasive evaluation with echocardiogram and pharmacologic stress nuclear imaging study. He did not require repeat cardiac catheterization. He has had indeterminate troponin I levels in the past. His troponin I level now may be can [place] to his tachydysrhythmias as well as his hypotension. At the moment he should continue risk factor evaluation care/medical therapy as best as possible. There are no immediate plans for repeat diagnostic cardiac catheterization. 5. Ischemic mediated cardiomyopathy He does have what has been reported as an ischemic mediated cardiomyopathy. His recent noninvasive studies were noted. His LVEF is somewhat diminished. At the moment he does not appear to be obviously volume overloaded. He will need to be monitored for the appearance of an acute on chronic CHF secondary to systolic dysfunction and/or diastolic dysfunction. His medicines will be adjusted as needed. 6. Abnormal troponin I levels Again his troponin levels may be secondary to a type II event secondary to his tachycardia dysrhythmias and his hypotension. Based upon his recent noninvasive study results he will continue medical therapy. There is no immediate plans for repeat diagnostic cardiac catheterization. This could change depending upon his clinical course. 7. Hyperlipidemia He will continue risk factor evaluation and care. 8. Hypertension He has a history of hypertension. Again there may be caution in adjusting his medicines to avoid hypotension. 9. Pulmonary hypertension He is been reported as having pulmonary hypertension in the past. He will need continued medical support. 10. Acute on chronic renal insufficiency His renal function will have to be taken into consideration with respect to his ongoing medication adjustment/volume adjustment, and any procedures that may require IV contrast mediated agents. Overall, at the present time, the cardiovascular standpoint, the patient will continue to be monitored. His medications will be adjusted in attempt to assist in controlling his heart rate as well as his blood pressures. However consideration should be given to the patient being evaluated at a tertiary care center for his challenging atrial dysrhythmias by electrophysiology for consideration for atrial fibrillation ablation or AV node ablation with permanent pacemaker support. Comment: The patient's case has been discussed and reviewed with the [facility] staff team members.
[2020-08-09] MEDS: 0.9% Saline Lock 10 ML Syringe IV ×2 (19:54→23:02)
[2020-08-09] MEDS: proCHLORPERazine 10 MG/2 ML Vial IV (19:54)
[2020-08-09] MEDS: Metoprolol Tartrate 50 MG Tablet PO (19:55)
[2020-08-09] MEDS: APIXABAN 2.5 MG TABLET PO (19:55)
--- NOTE | 2020-08-09 20:06 | ECHOD_ITS ---
Reason For Study: AFIB Procedure This was a 2D Doppler, Color Flow transthoracic echocardiogram. The study was technically difficult. Exam performed in department. Left Ventricle Normal LV size. Moderate concentric left ventricular hypertrophy. Moderately severe segmental systolic dysfunction (see wall motion). The estimated ejection fraction is 30 %. Unable to assess diastolic dysfunction. Anterio-Basal: Hypokinetic. Lateral-Basal: Hypokinetic. Posterior-Basal: Hypokinetic. Infero-Basal: Hypokinetic. Basal inferoseptal: Akinetic. Basal anteroseptal: Hypokinetic. Mid-Anterior : Hypokinetic. Mid-Lateral : Hypokinetic. Mid-Posterior: Hypokinetic. Mid- Inferior: Hypokinetic. Mid-inferoseptal : Akinetic. Mid-anteroseptal : Hypokinetic. [place] : Hypokinetic. Right Ventricle Normal RV size. Normal systolic function. Atria The left atrium is mildly enlarged. The right atrium is mildly enlarged. No doppler evidence for ASD. Mitral Valve There is no mitral annular calcification. Mild focal mitral valve calcification of the anterior leaflet. Moderately severe (3+) mitral valve insufficiency. Tricuspid Valve Normal tricuspid valve. Mild tricuspid valve insufficiency. Right ventricular systolic pressure estimated to be 54 mmHg. Aortic Valve Trisinus/trileaflet aortic valve. Mild focal aortic valve calcification. Trivial aortic valve insufficiency. Pulmonic Valve The pulmonic valve is not well visualized. Trivial pulmonic valve insufficiency. Great Vessels Normal sized aortic root. Pericardium/Pleural No pericardial effusion. Echo lucency compatible with a pleural effusion. Medication Previously negative bubble. MMode/2D Measurements & Calculations LVIDd: 4.2 cm IVSd: 1.7 cm Ao root diam: 3.5 cm LVIDs: 3.9 cm LVPWd: 1.6 cm RVDd: 3.7 cm FS: 9.0 % LAV(MOD-bp): 76.4 ml LVAd ap4: 24.8 cm2 SV(MOD-sp4): 17.6 ml LAV(MOD-bp) Indexed: 41.7 ml/m2 EDV(MOD-sp4): 63.5 ml LAV(MOD-sp2): 83.1 ml EDV(sp4-el): 66.2 ml LAV(MOD-sp4): 66.1 ml LVAs ap4: 20.3 cm2 ESV(MOD-sp4): 45.9 ml ESV(sp4-el): 48.3 ml EF(MOD-sp4): 27.7 % EF(sp4-el): 27.1 % SV(sp4-el): 17.9 ml LA A4 area: 21.9 cm2 LA dimension(2D): 4.2 cm RA A4 area: 18.4 cm2 Time Measurements MV dec time: 0.10 sec Doppler Measurements & Calculations MV E max sukhwinder: 117.1 cm/sec Ao V2 max: 78.2 cm/sec AI max sukhwinder: 349.6 cm/sec Ao max P.5 mmHg AI max P.9 mmHg AI dec slope: 213.6 cm/sec2 AI P1/2t: 479.4 msec LV V1 max: 53.8 cm/sec PA V2 max: 45.4 cm/sec TR max sukhwinder: 339.5 cm/sec LV V1 max P.2 mmHg TR max P.7 mmHg Interpretation Summary The study was technically difficult. Moderately severe segmental systolic dysfunction (see wall motion). The estimated ejection fraction is 30 %. Moderate concentric left ventricular hypertrophy. The left atrium is mildly enlarged. The right atrium is mildly enlarged. Mild focal mitral valve calcification of the anterior leaflet. Moderately severe (3+) mitral valve insufficiency. Mild tricuspid valve insufficiency. Mild focal aortic valve calcification. Trivial aortic valve insufficiency. Trivial pulmonic valve insufficiency. Right ventricular systolic pressure estimated to be 54 mmHg. Unable to assess diastolic dysfunction. Ordering Physician: Jameson Aguiar Referring Physician: REGINO DARBY Performed By: Marta Paris, RDCS, RVT
[2020-08-09] MEDS: dilTIAZem 25 MG/5 ML Vial 10 MG IV BOLUS (22:56)
[2020-08-09] MEDS: 0.9% Normal Saline 1,000 ML 100 ML IV (23:59)
[2020-08-10] VITALS (18 sets, daily range): BP systolic 90–131; BP diastolic 65–84; PULSE 72–143; RESP 14–16; TEMP 36.1–36.7; O2SAT 94–97
--- NOTE | 2020-08-10 05:55 | EKG12_ITS ---
Test Reason : AM EKG Blood Pressure : / mmHG Vent. Rate : 138 BPM Atrial Rate : 133 BPM P-R Int : 000 ms QRS Dur : 144 ms QT Int : 372 ms P-R-T Axes : 000 -17 183 degrees QTc Int : 563 ms Atrial fibrillation Left bundle branch block Abnormal ECG Confirmed by ISACC MONTOYA, CLAUDIO ([id number]), editor farm journal JR SEVERINO ([id number]) on 08/13/2020 1:10:36 PM Referred By: DALIA Confirmed By:CLAUDIO DEXTER MD
[2020-08-10 07:13] LABS: Anion Gap 9 (5-15); BUN 50 mg/dL (7-18); BUN/Creat Ratio 21.9 RATIO (10-20); Calcium,Total 9.4 mg/dL (8.5-10.1); Chloride 103 mmol/L (98-107); Creatinine, Serum 2.28 mg/dL (0.70-1.30); EST Glomerular Filtration Rate 29 mL/min (>60); Est Glom Filt Rate - Afr Amer 36 mL/min (>60); Glucose 157 mg/dL (74-106); Potassium 4.6 mmol/L (3.5-5.1); Sodium Level 138 mmol/L (136-145)
--- NOTE | 2020-08-10 08:49 | PCM.PN.CARD ---
Subjectve: The patient states he feels somewhat better today although he remains weak. Objective: Vital Signs Temp Pulse Resp BP Pulse Ox 98.0 F 132 H 16 113/73 94 08/10/20 04:01 08/10/20 07:09 08/10/20 04:01 08/10/20 04:01 08/10/20 04:01 Oxygen Delivery Method Room Air Weight: 151 lb Body Mass Index (BMI) 22.3 Intake and Output for Last 24 Hours 08/08/20 08/09/20 08/10/20 23:59 23:59 23:59 Intake Total 1367.88 / 1427.88 Balance 1367.88 / 1427.88 General: Awake, Alert, Oriented x 3, Cooperative, - - Somewhat frail-appearing HEENT: Atraumatic, Normocephalic, PERRL, EOMI, Sclera Non Icteric Neck: Supple, Good ROM Lungs: Clear to auscultation Cardiovascular: Irregular Rhythm, Normal S1, Normal S2 Abdomen: Bowel Sounds Present, Soft Extremities: No edema Neurological: No Focal Motor or Sensory Deficit 08/09/20 11:15: WBC 10.2, RBC 4.94, Hgb 14.6, Hct 46.1, MCV 93.3, MCH 29.6, MCHC 31.7 L, Plt Count 131 L, MPV 13.9 H, Immature Gran % (Auto) 0.200, Neut % (Auto) 71.3 H, Lymph % (Auto) 18.9 L, Hodgeman % (Auto) 9.2, Eos % (Auto) 0.0, Baso % (Auto) 0.4, Absolute Neuts (auto) 7.3, Nucleated RBC % 0 08/09/20 11:15: Sodium 134 L, Potassium 4.6, Chloride 97 L, Carbon Dioxide 27.0, Anion Gap 10, BUN 42 H, Creatinine 2.34 H, Est GFR (MDRD) Af Amer 34 L, Est GFR (MDRD) Non-Af 29 L, BUN/Creatinine Ratio 17.9, Glucose 306 H, Calcium 10.3 H, Magnesium 2.3, Troponin I 0.446 H 08/09/20 11:15: B-Natriuretic Peptide 2835.0 H 08/09/20 18:40: Troponin I 0.481 H 08/09/20 21:46: Troponin I 0.578 H 08/10/20 00:53: Troponin I 0.550 H 08/10/20 06:08: Sodium 138, Potassium 4.6, Chloride 103, Carbon Dioxide 26.0, Anion Gap 9, BUN 50 H, Creatinine 2.28 H, Est GFR (MDRD) Af Amer 36 L, Est GFR (MDRD) Non-Af 29 L, BUN/Creatinine Ratio 21.9 H, Glucose 157 H, Calcium 9.4 Rhythm: Atrial fibrillation EKG: Atrial fibrillation; left bundle branch block pattern Medical Necessity - Tobacco Use Smoking Status: Never smoker Assessment/Plan 1. Atrial fibrillation with rapid ventricular response The patient has had recurrent atrial fibrillation with rapid ventricular response. It appears that he has undergone medical therapy and recently in June of this year synchronized biphasic DC cardioversion. However he has continued atrial fibrillation with episodes of rapid ventricular response. It appears when the patient's rate limiting medications have been increased that he either becomes bradycardic and/or hypotensive. He has been attempted on antiarrhythmic therapy with amiodarone but apparently was intolerant of such. He has remained on anticoagulant therapy. Based upon concerns of the difficulty controlling his rate with bradycardia and tachycardia and concerns of associated hypotension he may need to be considered for tertiary care center evaluation by electrophysiology for either atrial fibrillation ablation or possibly AV node ablation with permanent pacemaker support. 2. Bradycardia He was reported as being markedly bradycardic prior to his arrival at the hospital. He was then noted to be tachycardic. Again there has been reports that he has been difficult to control his tachydysrhythmia with rate limiting medication because of concerns of bradycardia dysrhythmias as well as hypotension. At the moment his medicines will be evaluated. They can be adjusted in attempt to avoid bradycardia as well as significant tachycardia. His blood pressures will be watched. However it would be reasonable to consider him for tertiary care center evaluation for the possibility of either atrial fibrillation ablation or AV node ablation with permanent pacemaker support. 3. Hypotension The patient did receive rate limiting medications. He became hypotensive. He received IV fluid resuscitation. His blood pressures have improved. His medications will have to be monitored as well as his volume status to avoid significant hypotension. 4. CAD status post CABG Patient has undergone revascularization therapy as noted above in [facility]. He has undergone recent noninvasive evaluation with echocardiogram and pharmacologic stress nuclear imaging study. He did not require repeat cardiac catheterization. He has had indeterminate troponin I levels in the past. Remain indeterminant at this time. His troponin I level now may be can secondary to his tachydysrhythmias as well as his hypotension. At the moment he should continue risk factor evaluation care/medical therapy as best as possible. There are no immediate plans for repeat diagnostic cardiac catheterization. 5. Ischemic mediated cardiomyopathy He does have what has been reported as an ischemic mediated cardiomyopathy. His recent noninvasive studies were noted. His LVEF is somewhat diminished. At the moment he does not appear to be obviously volume overloaded. He will need to be monitored for the appearance of an acute on chronic CHF secondary to systolic dysfunction and/or diastolic dysfunction. His medicines will be adjusted as needed. 6. Abnormal troponin I levels Again his troponin levels may be secondary to a type II event secondary to his tachycardia dysrhythmias and his hypotension. Based upon his recent noninvasive study results he will continue medical therapy. There is no immediate plans for repeat diagnostic cardiac catheterization. This could change depending upon his clinical course. He will be asked to have a follow-up echocardiogram to reassess his left ventricular wall motion systolic function for any significant changes that would warrant further evaluation and care from a coronary/graft standpoint. 7. Hyperlipidemia He will continue risk factor evaluation and care. 8. Hypertension He has a history of hypertension. Again there may be caution in adjusting his medicines to avoid hypotension. 9. Pulmonary hypertension He is been reported as having pulmonary hypertension in the past. He will need continued medical support. 10. Acute on chronic renal insufficiency His renal function will have to be taken into consideration with respect to his ongoing medication adjustment/volume adjustment, and any procedures that may require IV contrast mediated agents. Overall, at the present time, the cardiovascular standpoint, the patient will continue to be monitored. His medications will be adjusted in attempt to assist in controlling his heart rate as well as his blood pressures. He will have a follow-up echocardiogram as noted above. The patient's clinical course will then be reassessed. If there is no other significant changes warranting additional evaluation from a coronary/graft standpoint, etc., then it would be reasonable to consider the patient to be transferred to a tertiary care center for electrophysiology consultation for consideration for atrial fibrillation ablation or AV node ablation with permanent pacemaker support.
[2020-08-10] MEDS: 0.9% Normal Saline 1,000 ML 100 ML IV ×2 (09:26→20:09)
[2020-08-10] MEDS: APIXABAN 2.5 MG TABLET PO (09:30)
[2020-08-10] MEDS: Aspirin E.C. 81 MG Tablet PO (09:31)
[2020-08-10] MEDS: Glimepiride 2 MG Tablet PO (09:31)
[2020-08-10] MEDS: DULoxetine Hcl 30 MG Capsule PO (09:31)
[2020-08-10] MEDS: Metoprolol Tartrate 25 MG Tablet PO ×2 (09:35→22:48)
--- NOTE | 2020-08-10 09:45 | CASEMGMT ---
Readmission chart review: See previous not by this GERMÁN RANKIN on 08/09/2020 for CCN report upon sending pt in. This is pt's second readmission for same presenting sx's: hypotension, bradycardia, lethargy. Pt admitted 07/17-07/21/2020 for Acute CHF/Afib RVR to PCU but then ended up in ICU after hypotension/bradycardia episode one night. Pt did have a cardioversion completed during this admission. See readmit note by this GERMÁN RANKIN on 07/18/2020. Pt was discharged with [facility] and resumption of CCN. Pt returned on 11/09/2019 with same episode at home of bradycardia/hypotension but by the time pt got to [facility] ED, he was in Afib w/ RVR. Pt was started on Cardizem gtt in ED but then became hypotensive and gtt stopped at that time and fluid bolus given. Pt admitted again to PCU for Afib RVR, A on C sys/diastolic CHF and cardiology was consulted. CM to follow for any further discharge planning/needs. SStaten GERMÁN RANKIN
--- NOTE | 2020-08-10 10:18 | CASEMGMT ---
According to the [facility] website, the following are in-network tertiary facilities: [facility], [place], [facility], [place], [facility], [facility], [address], [facility], and . Isaias DUNLAP CM
--- NOTE | 2020-08-10 13:09 | PCM.PROGNOTE ---
<Odilia Mcmullen [employer] OPERATOR - Last Filed: 08/10/20 13:23> Patient Problems: Active and Suspected Problems (Last Reviewed 05/01/20 @ 14:[address] Jason Lemus MD) Elevated troponin (Acute) Atrial fibrillation with rapid ventricular response (Acute) Acute on chronic systolic and diastolic heart failure, NYHA class 2 (Acute) Nausea and vomiting (Acute) Bradycardia (Acute) Hypotension (Acute) CAD (coronary artery disease) (Acute) Subjective: Patient seen and examined. Nausea resolved. Reports continued fatigue. Heart rate remains tachycardic this morning. - Physical Exam Vitals/I&O's: Vital Signs Temp Pulse Resp BP Pulse Ox 97.1 F L 143 H 15 106/65 97 08/10/20 09:27 08/10/20 09:35 08/10/20 09:27 08/10/20 09:27 08/10/20 09:27 Oxygen Delivery Method Room Air Weight: 151 lb Body Mass Index (BMI) 22.3 Intake and Output for Last 24 Hours 08/08/20 08/09/20 08/10/20 23:59 23:59 23:59 Intake Total 1367.88 / 1427.88 1240 / 1240 Balance 1367.88 / 1427.88 1240 / 1240 General: Alert, Oriented x3, Cooperative HEENT: Atraumatic, PERRLA, EOMI, Normocephalic Neck: Supple, No JVD, Negative Carotid Bruits Lungs: Clear to auscultation, Diminished Cardiovascular: - - Atrial fibrillation, tachycardia Abdomen: Bowel Sounds Present, Soft, Non Tender, Non-Distended Extremities: No clubbing, No cyanosis, No edema, Capillary Refill Less than 3 Seconds Skin: No rashes, No breakdown Musculoskeletal: No Tenderness to Palpation of Joints or Extremities Neurological: Cranial nerves II-XII grossly intact, Neuro grossly intact Psych/Mental Status: Flat Affect Laboratory Results 08/09/20 18:40: Troponin I 0.481 H 08/09/20 21:46: Troponin I 0.578 H 08/10/20 00:53: Troponin I 0.550 H 08/10/20 06:08: Sodium 138, Potassium 4.6, Chloride 103, Carbon Dioxide 26.0, Anion Gap 9, BUN 50 H, Creatinine 2.28 H, Estim Creat Clear Calc 24.20, Est GFR (MDRD) Af Amer 36 L, Est GFR (MDRD) Non-Af 29 L, BUN/Creatinine Ratio 21.9 H, Glucose 157 H, Calcium 9.4 Current Medications Acetaminophen (Acetaminophen 325 Mg Tablet) 650 mg PO Q6H PRN PRN PRN Reason: Pain Score 1-3 /Temp>100.7 Apixaban (Apixaban 2.5 Mg Tablet) 2.5 mg PO BID [facility] Last Admin: 08/10/20 09:30 Dose: 2.5 mg Documented by: Aspirin (Aspirin E.C. 81 Mg Tablet) 81 mg PO DAILY@0800 [facility] Last Admin: 08/10/20 09:31 Dose: 81 mg Documented by: Cholecalciferol (Cholecalciferol (Vit D3) 1,000 Unit (25mcg)) 5,000 unit PO DAILY [facility] Last Admin: 08/10/20 09:31 Dose: 5,000 unit Documented by: Duloxetine HCl (Duloxetine Hcl 30 Mg Capsule) 30 mg PO DAILY [facility] Last Admin: 08/10/20 09:31 Dose: 30 mg Documented by: Glimepiride (Glimepiride 2 Mg Tablet) 2 mg PO DAILY@0800 [facility] Last Admin: 08/10/20 09:31 Dose: 2 mg Documented by: Sodium Chloride () 1,000 mls @ 100 mls/hr IV .Q10H [facility] Last Infusion: 08/10/20 11:47 Dose: 100 mls/hr Documented by: Metoprolol Tartrate (Metoprolol Tartrate 25 Mg Tablet) 25 mg PO BID [facility] Last Admin: 08/10/20 09:35 Dose: 25 mg Documented by: Ondansetron HCl (Ondansetron 4 Mg/2 Ml Vial) 4 mg IV Q8H PRN PRN PRN Reason: Nausea Oxycodone HCl (Oxycodone 5 Mg Tablet) 5 mg PO Q4H PRN PRN PRN Reason: Pain Score 4-10/10 Prochlorperazine Edisylate (Prochlorperazine 10 Mg/2 Ml Vial) 10 mg IV Q6H PRN PRN PRN Reason: Nausea/Vomiting Last Admin: 08/09/20 19:54 Dose: 10 mg Documented by: Sodium Chloride (0.9% Saline Lock 10 Ml Syringe) 10 - 40 ml IV UD PRN PRN Reason: SALINE FLUSH Last Admin: 08/09/20 23:02 Dose: 20 ml Documented by: Medical Necessity - Tobacco Use Smoking Status: Never smoker Assessment/Plan All Active Problems (Last Reviewed 05/01/20 @ 14:[address] Jason Lemus MD) Elevated troponin (Acute) Atrial fibrillation with rapid ventricular response (Acute) Acute on chronic systolic and diastolic heart failure, NYHA class 2 (Acute) Nausea and vomiting (Acute) Bradycardia (Acute) Hypotension (Acute) CAD (coronary artery disease) (Acute) Amiodarone toxicity (Resolved) Acute respiratory failure with hypoxemia (Resolved) Dyspnea (Resolved) Dyspnea on exertion (Resolved) Shortness of breath (Resolved) 1. Atrial fibrillation with variable rate-[facility] noted the patient's heart rate was 25 during home visit. Heart rate in ED 140s. Patient initially started on Cardizem drip however became hypotensive. Given fluctuating rate, will consult cardiology. Patient underwent recent cardioversion 07/18/2020. Continue Eliquis. Continue home metoprolol regimen. Patient has been on amiodarone in the past and was unable to tolerate. Cardiology discussing possible transfer to tertiary care center for EP evaluation for possible atrial fibrillation ablation or possible AV node ablation with permanent pacemaker support. Repeat echocardiogram demonstrates an EF of 30%, moderately severe mitral valve insufficiency, RVSP estimated to be 54 mmHg. Given LV function is reduced from prior study, possible heart cath on Thursday prior to discussing further EP evaluation. 2. Hypotension-improved following discontinuation of Cardizem drip and fluid bolus. 3. Elevated troponin-possible demand ischemia related to #1. EKG without acute ischemia. Echocardiogram as noted above. Cardiology following. Possible heart cath on thursday as noted above. 4. Chronic heart failure with reduced ejection fraction/Ischemic cardiomyopathy-BNP 2835. Chest x-ray unremarkable. Echocardiogram February 2020 demonstrated an EF 45%, stage III diastolic dysfunction, pulmonary artery systolic pressure 44 mmHg. Repeat echo as noted above. Patient underwent nuclear stress test 03/27/2020 which showed gated ejection fraction 29%, no evidence of ischemia, cardiomyopathy. Strict I&O. Daily weight. Hold Lasix due to hypotension. 5. CAD with history of CABG- Continue Eliquis, statin, metoprolol. 6. History of CVA-statin, Eliquis. 7. Type 2 diabetes [id number] with sliding scale insulin. Repeat hemoglobin A1c. Hemoglobin A1c April 07 2010%. Appears he has only been taking glimepiride. 8. Hypertension-stable, continue current regimen with hold parameters. 9. Hyperlipidemia-continue statin. DVT prophylaxis-Eliquis This patient was seen by CHANTEL Kong under the supervision of Dr. Frost. <Prosper Frost - Last Filed: 08/10/20 15:21> Objective: Patient continues to be fatigue. No obvious shortness of breath at rest. Heart rate and blood pressure controlled. Heart rate is still high between 120s to 140s in A. fib. General: Alert, Oriented x3, Cooperative HEENT: Atraumatic, PERRLA, EOMI, Normocephalic Oral: No Gingival or Mucosal Lesions/ Ulcerations Neck: Supple, No JVD, Negative Carotid Bruits Lungs: Air entry diminished in bilateral lung bases. No crepitation/rhonchi. No tachypnea or hypoxia. Cardiovascular: Irregular heartbeat with A. fib, tachycardia, normal S1, Normal S2, No murmurs Abdomen: Bowel Sounds Present, Soft, Non Tender, Non-Distended : No renal angle tenderness. No suprapubic tenderness. Extremities: No edema, Capillary Refill Less than 3 Seconds Skin: No ulcers. No rash. Musculoskeletal: No Tenderness to Palpation of Joints or Extremities Neurological: Cranial nerves II-XII grossly intact, Deep Tendon Reflexes 2+/4 and Symmetrical, Neuro grossly intact Psych/Mental Status: Normal Affect, Appropriate. - Physical Exam Vitals/I&O's: Vital Signs Temp Pulse Resp BP Pulse Ox 97.1 F L 143 H 15 106/65 97 08/10/20 09:27 08/10/20 09:35 08/10/20 09:27 08/10/20 09:27 08/10/20 09:27 Oxygen Delivery Method Room Air Weight: 151 lb Body Mass Index (BMI) 22.3 Intake and Output for Last 24 Hours 08/08/20 08/09/20 08/10/20 23:59 23:59 23:59 Intake Total 1367.88 / 1427.88 1240 / 1240 Balance 1367.88 / 1427.88 1240 / 1240 Laboratory Results 08/09/20 18:40: Troponin I 0.481 H 08/09/20 21:46: Troponin I 0.578 H 08/10/20 00:53: Troponin I 0.550 H 08/10/20 06:08: Sodium 138, Potassium 4.6, Chloride 103, Carbon Dioxide 26.0, Anion Gap 9, BUN 50 H, Creatinine 2.28 H, Estim Creat Clear Calc 24.20, Est GFR (MDRD) Af Amer 36 L, Est GFR (MDRD) Non-Af 29 L, BUN/Creatinine Ratio 21.9 H, Glucose 157 H, Calcium 9.4 08/10/20 11:15: Hemoglobin A1c 7.9 H Current Medications Acetaminophen (Acetaminophen 325 Mg Tablet) 650 mg PO Q6H PRN PRN PRN Reason: Pain Score 1-3 /Temp>100.7 Aspirin (Aspirin E.C. 81 Mg Tablet) 81 mg PO DAILY@0800 [facility] Last Admin: 08/10/20 09:31 Dose: 81 mg Documented by: Cholecalciferol (Cholecalciferol (Vit D3) 1,000 Unit (25mcg)) 5,000 unit PO DAILY [facility] Last Admin: 08/10/20 09:31 Dose: 5,000 unit Documented by: Duloxetine HCl (Duloxetine Hcl 30 Mg Capsule) 30 mg PO DAILY [facility] Last Admin: 08/10/20 09:31 Dose: 30 mg Documented by: Glimepiride (Glimepiride 2 Mg Tablet) 2 mg PO DAILY@0800 [facility] Last Admin: 08/10/20 09:31 Dose: 2 mg Documented by: Sodium Chloride () 1,000 mls @ 100 mls/hr IV .Q10H [facility] Last Infusion: 08/10/20 11:47 Dose: 100 mls/hr Documented by: Metoprolol Tartrate (Metoprolol Tartrate 25 Mg Tablet) 25 mg PO BID [facility] Last Admin: 08/10/20 09:35 Dose: 25 mg Documented by: Ondansetron HCl (Ondansetron 4 Mg/2 Ml Vial) 4 mg IV Q8H PRN PRN PRN Reason: Nausea Oxycodone HCl (Oxycodone 5 Mg Tablet) 5 mg PO Q4H PRN PRN PRN Reason: Pain Score 4-10/10 Prochlorperazine Edisylate (Prochlorperazine 10 Mg/2 Ml Vial) 10 mg IV Q6H PRN PRN PRN Reason: Nausea/Vomiting Last Admin: 08/09/20 19:54 Dose: 10 mg Documented by: Sodium Chloride (0.9% Saline Lock 10 Ml Syringe) 10 - 40 ml IV UD PRN PRN Reason: SALINE FLUSH Last Admin: 08/09/20 23:02 Dose: 20 ml Documented by: Assessment/Plan This patient was seen in conjunction with Odilia PRIEST. I have independently interviewed and examined the patient and reviewed pertinent history, examination findings, laboratory and plan of management. I have reviewed the note and agree with the documented findings with the few additional points. In brief, patient is 80-year-old gentleman admitted with A. fib with variable rate. Patient drop blood pressure on Cardizem drip after Cardizem bolus, hypotensive and got fluid bolus in ER. Blood pressure recovered continue home metoprolol dose and Eliquis. Small Business Consultant saw the patient. Troponins mildly elevated 0.550. Plan is to do cardiac cath on coming Thursday to rule out new coronary ischemia or arrhythmia, A. fib with variable rate. 2D echo reported as Moderately severe segmental systolic dysfunction (see wall motion).The estimated ejection fraction is 30 %.Moderate concentric left ventricular hypertrophy.The left atrium is mildly enlarged. The right atrium is mildly enlarged. Mild focal mitral valve calcification of the anterior leaflet. Moderately severe (3+) mitral valve insufficiency. Mild tricuspid valve insufficiency. Mild focal aortic valve calcification. Trivial aortic valve insufficiency. Trivial pulmonic valve insufficiency. Right ventricular systolic pressure estimated to be 54 mmHg. Hypertension: Blood pressure recovered. Still on lower side, systolic 100. Hold antihypertensive medication. Has chronic systolic and diastolic heart failure, ischemic cardiomyopathy as per echo in February 2020 EF 45% stage III diastolic dysfunction, PASP 44 mm. Patient had stress test in March 2020 which showed no evidence of ischemia. Other chronic comorbidities coronary artery disease status post CABG, CVA, type 2 diabetes mellitus and dyslipidemia as mentioned above. I have discussed my assessment with Odilia PRIEST and orders have been reviewed. Inpatient E&M: 34952 Subs Hosp L2
[2020-08-10 13:49] LABS: Hemoglobin A1c 7.9 % (3.8-5.6)
[2020-08-10] MEDS: Digoxin 250 MCG/ML Ampul IV (18:08)
[2020-08-11] VITALS (15 sets, daily range): BP systolic 106–134; BP diastolic 72–91; PULSE 84–130; RESP 12–18; TEMP 36.2–36.8; O2SAT 93–99
[2020-08-11] MEDS: 0.9% Normal Saline 1,000 ML 100 ML IV (05:57)
[2020-08-11] MEDS: Glimepiride 2 MG Tablet PO (07:55)
[2020-08-11] MEDS: Aspirin E.C. 81 MG Tablet PO (07:55)
[2020-08-11] MEDS: Metoprolol Tartrate 25 MG Tablet PO ×2 (07:55→21:26)
[2020-08-11] MEDS: DULoxetine Hcl 30 MG Capsule PO (07:56)
[2020-08-11 07:57] LABS: Anion Gap 7 (5-15); BUN 52 mg/dL (7-18); BUN/Creat Ratio 24.1 RATIO (10-20); Calcium,Total 9.2 mg/dL (8.5-10.1); Chloride 105 mmol/L (98-107); Creatinine, Serum 2.16 mg/dL (0.70-1.30); EST Glomerular Filtration Rate 31 mL/min (>60); Est Glom Filt Rate - Afr Amer 38 mL/min (>60); Estimated Creatinine Clearance 25.54 ml/min; Glucose 46 mg/dL (74-106); Potassium 4.3 mmol/L (3.5-5.1); Sodium Level 140 mmol/L (136-145)
[2020-08-11] MEDS: Digoxin 250 MCG/ML Ampul IV (10:57)
--- NOTE | 2020-08-11 12:46 | PN_ITS ---
<Shar [employer] PHOTOGRAPHIC PROCESS ATTENDANT - Last Filed: 08/11/20 12:54> Patient Problems: Active and Suspected Problems (Last Reviewed 05/01/20 @ 14:[address] Jason rea MD) Elevated troponin (Acute) Atrial fibrillation with rapid ventricular response (Acute) Acute on chronic systolic and diastolic heart failure, NYHA class 2 (Acute) Nausea and vomiting (Acute) Bradycardia (Acute) Hypotension (Acute) CAD (coronary artery disease) (Acute) Subjective: Patient seen and examined. No acute events overnight. Patient denies symptoms or complaints. Discussed plan of care. - Physical Exam Vitals/I&O's: Vital Signs Temp Pulse Resp BP Pulse Ox 97.5 F L 112 H 15 134/83 H 94 08/11/20 04:27 08/11/20 10:57 08/11/20 04:27 08/11/20 04:27 08/11/20 04:27 Oxygen Delivery Method Nasal Cannula Weight: 151 lb Body Mass Index (BMI) 22.3 Intake and Output for Last 24 Hours 08/09/20 08/10/20 08/11/20 23:59 23:59 23:59 Intake Total 1367.88 / 1427.88 2255.00 / 2405.00 1130 / 1130 Balance 1367.88 / 1427.88 2255.00 / 2405.00 1130 / 1130 General: Alert, Oriented x3, Cooperative HEENT: Atraumatic, PERRLA, EOMI, Normocephalic Neck: Supple, No JVD, Negative Carotid Bruits Lungs: Clear to auscultation, Diminished Cardiovascular: - - Atrial fibrillation, tachycardic Abdomen: Bowel Sounds Present, Soft, Non Tender, Non-Distended Extremities: No clubbing, No cyanosis, No edema, Capillary Refill Less than 3 Seconds Skin: No rashes, No breakdown Musculoskeletal: No Tenderness to Palpation of Joints or Extremities Neurological: Cranial nerves II-XII grossly intact, Neuro grossly intact Psych/Mental Status: Flat Affect Laboratory Results 08/10/20 11:15: Hemoglobin A1c 7.9 H 08/11/20 07:23: Sodium 140, Potassium 4.3, Chloride 105, Carbon Dioxide 28.0, Anion Gap 7, BUN 52 H, Creatinine 2.16 H, Estim Creat Clear Calc 25.54, Est GFR (MDRD) Af Amer 38 L, Est GFR (MDRD) Non-Af 31 L, BUN/Creatinine Ratio 24.1 H, Glucose 46 L, Calcium 9.2 Current Medications Acetaminophen (Acetaminophen 325 Mg Tablet) 650 mg PO Q6H PRN PRN PRN Reason: Pain Score 1-3 /Temp>100.7 Aspirin (Aspirin E.C. 81 Mg Tablet) 81 mg PO DAILY@0800 [facility] Last Admin: 08/11/20 07:55 Dose: 81 mg Documented by: Cholecalciferol (Cholecalciferol (Vit D3) 1,000 Unit (25mcg)) 5,000 unit PO DAILY [facility] Last Admin: 08/11/20 07:56 Dose: 5,000 unit Documented by: Duloxetine HCl (Duloxetine Hcl 30 Mg Capsule) 30 mg PO DAILY [facility] Last Admin: 08/11/20 07:56 Dose: 30 mg Documented by: Glimepiride (Glimepiride 2 Mg Tablet) 2 mg PO DAILY@0800 [facility] Last Admin: 08/11/20 07:55 Dose: 2 mg Documented by: Sodium Chloride () 1,000 mls @ 100 mls/hr IV .Q10H [facility] Last Admin: 08/11/20 05:57 Dose: 100 mls/hr Documented by: Metoprolol Tartrate (Metoprolol Tartrate 25 Mg Tablet) 25 mg PO BID [facility] Last Admin: 08/11/20 07:55 Dose: 25 mg Documented by: Ondansetron HCl (Ondansetron 4 Mg/2 Ml Vial) 4 mg IV Q8H PRN PRN PRN Reason: Nausea Oxycodone HCl (Oxycodone 5 Mg Tablet) 5 mg PO Q4H PRN PRN PRN Reason: Pain Score 4-10/10 Prochlorperazine Edisylate (Prochlorperazine 10 Mg/2 Ml Vial) 10 mg IV Q6H PRN PRN PRN Reason: Nausea/Vomiting Last Admin: 08/09/20 19:54 Dose: 10 mg Documented by: Sodium Chloride (0.9% Saline Lock 10 Ml Syringe) 10 - 40 ml IV UD PRN PRN Reason: SALINE FLUSH Last Admin: 08/09/20 23:02 Dose: 20 ml Documented by: Medical Necessity - Tobacco Use Smoking Status: Never smoker Assessment/Plan All Active Problems (Last Reviewed 05/01/20 @ 14:[address] Jason Lemus MD) Elevated troponin (Acute) Atrial fibrillation with rapid ventricular response (Acute) Acute on chronic systolic and diastolic heart failure, NYHA class 2 (Acute) Nausea and vomiting (Acute) Bradycardia (Acute) Hypotension (Acute) CAD (coronary artery disease) (Acute) Amiodarone toxicity (Resolved) Acute respiratory failure with hypoxemia (Resolved) Dyspnea (Resolved) Dyspnea on exertion (Resolved) Shortness of breath (Resolved) 1. Atrial fibrillation with variable rate-heart rate noted to be in 20s during home visit. Has since been tachycardic during admission. Cardiology following. Patient underwent recent cardioversion 07/18/2020. Continue home metoprolol regimen. Patient has been on amiodarone in the past and was unable to tolerate. Cardiology discussing possible transfer to tertiary care center for EP evaluation pending further cardiac evaluation for possible atrial fibrillation ablation or possible AV node ablation with permanent pacemaker support. Repeat echocardiogram demonstrates an EF of 30%, moderately severe mitral valve insufficiency, RVSP estimated to be 54 mmHg. Given LV function is reduced from prior study, possible heart cath on Thursday prior to discussing further EP evaluation. Eliquis on hold. IV digoxin x1 per cardiology for further rate control. 2. Hypotension-improved following discontinuation of Cardizem drip and fluid bolus. 3. Elevated troponin-possible demand ischemia related to #1. EKG without acute ischemia. Echocardiogram as noted above. Cardiology following. Possible heart cath on thursday as noted above. 4. Chronic heart failure with reduced ejection fraction/Ischemic cardiomyopathy- BNP 2835. Chest x-ray unremarkable. Echocardiogram February 2020 demonstrated an EF 45%, stage III diastolic dysfunction, pulmonary artery systolic pressure 44 mmHg. Repeat echo as noted above. Patient underwent nuclear stress test 03/27/2020 which showed gated ejection fraction 29%, no evidence of ischemia, cardiomyopathy. Strict I&O. Daily weight. Hold Lasix due to hypotension. 5. CAD with history of CABG- Continue statin, metoprolol. Eliquis on hold. 6. History of CVA-statin, Eliquis. 7. Type 2 diabetes [id number]-Ciodl with sliding scale insulin. Hemoglobin A1c 7.9%. Continue glyburide. 8. Hypertension-stable, continue current regimen with hold parameters. 9. Hyperlipidemia-continue statin. DVT prophylaxis-Eliquis on hold This patient was seen by CHANTEL Kong under the supervision of Dr. Frost. <Prosper Frost - Last Filed: 08/11/20 13:11> Subjective: Seen and examined. Patient heart rate is still elevated, varies between 100 to 115/min. No shortness of breath. No chest pain. Still feels fatigued. Objective: Physical exam General: Alert, Oriented x3, Cooperative HEENT: Atraumatic, PERRLA, EOMI, Normocephalic Oral: No Gingival or Mucosal Lesions/ Ulcerations Neck: Supple, No JVD, Negative Carotid Bruits Lungs: Air entry diminished in bilateral lung bases. No crepitation/rhonchi. No tachypnea or hypoxia. Cardiovascular: Irregular heartbeat with A. fib, tachycardia, normal S1, Normal S2, No murmurs Abdomen: Bowel Sounds Present, Soft, Non Tender, Non-Distended : No renal angle tenderness. No suprapubic tenderness. Extremities: No edema, Capillary Refill Less than 3 Seconds Skin: No ulcers. No rash. Musculoskeletal: No Tenderness to Palpation of Joints or Extremities Neurological: Cranial nerves II-XII grossly intact, Deep Tendon Reflexes 2+/4 and Symmetrical, Neuro grossly intact Psych/Mental Status: Normal Affect, Appropriate. - Physical Exam Vitals/I&O's: Vital Signs Temp Pulse Resp BP Pulse Ox 97.5 F L 112 H 15 134/83 H 94 08/11/20 04:27 08/11/20 10:57 08/11/20 04:27 08/11/20 04:27 08/11/20 04:27 Oxygen Delivery Method Nasal Cannula Weight: 151 lb Body Mass Index (BMI) 22.3 Intake and Output for Last 24 Hours 08/09/20 08/10/20 08/11/20 23:59 23:59 23:59 Intake Total 1367.88 / 1427.88 2255.00 / 2405.00 1130 / 1130 Balance 1367.88 / 1427.88 2255.00 / 2405.00 1130 / 1130 Laboratory Results 08/10/20 11:15: Hemoglobin A1c 7.9 H 08/11/20 07:23: Sodium 140, Potassium 4.3, Chloride 105, Carbon Dioxide 28.0, Anion Gap 7, BUN 52 H, Creatinine 2.16 H, Estim Creat Clear Calc 25.54, Est GFR (MDRD) Af Amer 38 L, Est GFR (MDRD) Non-Af 31 L, BUN/Creatinine Ratio 24.1 H, Glucose 46 L, Calcium 9.2 Current Medications Acetaminophen (Acetaminophen 325 Mg Tablet) 650 mg PO Q6H PRN PRN PRN Reason: Pain Score 1-3 /Temp>100.7 Aspirin (Aspirin E.C. 81 Mg Tablet) 81 mg PO DAILY@0800 [facility] Last Admin: 08/11/20 07:55 Dose: 81 mg Documented by: Cholecalciferol (Cholecalciferol (Vit D3) 1,000 Unit (25mcg)) 5,000 unit PO DAILY [facility] Last Admin: 08/11/20 07:56 Dose: 5,000 unit Documented by: Duloxetine HCl (Duloxetine Hcl 30 Mg Capsule) 30 mg PO DAILY [facility] Last Admin: 08/11/20 07:56 Dose: 30 mg Documented by: Glimepiride (Glimepiride 2 Mg Tablet) 2 mg PO DAILY@0800 [facility] Last Admin: 08/11/20 07:55 Dose: 2 mg Documented by: Sodium Chloride () 1,000 mls @ 100 mls/hr IV .Q10H [facility] Last Admin: 08/11/20 05:57 Dose: 100 mls/hr Documented by: Metoprolol Tartrate (Metoprolol Tartrate 25 Mg Tablet) 25 mg PO BID [facility] Last Admin: 08/11/20 07:55 Dose: 25 mg Documented by: Ondansetron HCl (Ondansetron 4 Mg/2 Ml Vial) 4 mg IV Q8H PRN PRN PRN Reason: Nausea Oxycodone HCl (Oxycodone 5 Mg Tablet) 5 mg PO Q4H PRN PRN PRN Reason: Pain Score 4-10/10 Prochlorperazine Edisylate (Prochlorperazine 10 Mg/2 Ml Vial) 10 mg IV Q6H PRN PRN PRN Reason: Nausea/Vomiting Last Admin: 08/09/20 19:54 Dose: 10 mg Documented by: Sodium Chloride (0.9% Saline Lock 10 Ml Syringe) 10 - 40 ml IV UD PRN PRN Reason: SALINE FLUSH Last Admin: 10/22/20 23:02 Dose: 20 ml Documented by: Assessment/Plan This patient was seen in conjunction with Odilia PRIEST. I have independently interviewed and examined the patient and reviewed pertinent history, examination findings, laboratory and plan of management. I have reviewed the note and agree with the documented findings with the few additional points. In brief, patient is 80-year-old gentleman admitted with A. fib with variable rate. Patient drop blood pressure on Cardizem drip after Cardizem bolus, hypotensive and got fluid bolus in ER. Blood pressure recovered continue home metoprolol dose and Eliquis. Home Therapy Clinician saw the patient. Troponins mildly elevated 0.550. Plan is to do cardiac cath on coming Thursday to rule out new coronary ischemia or arrhythmia, A. fib with variable rate. 2D echo reported as Moderately severe segmental systolic dysfunction (see wall motion).The estimated ejection fraction is 30 %.Moderate concentric left ventricular hypertrophy.The left atrium is mildly enlarged. The right atrium is mildly enlarged. Mild focal mitral valve calcification of the anterior leaflet. Moderately severe (3+) mitral valve insufficiency. Mild tricuspid valve insufficiency. Mild focal aortic valve calcification. Trivial aortic valve insufficiency. Trivial pulmonic valve insufficiency. Right ventricular systolic pressure estimated to be 54 mmHg. 08/11: Heart rate is still not controlled. On metoprolol 25 mg p.o. twice daily digoxin 250 mcg IV given. Will follow. Hypertension: Blood pressure recovered. Still on lower side, systolic 100. Hold antihypertensive medication. Patient has recovered 134/83. Discontinue IV fluid. Has chronic systolic and diastolic heart failure, ischemic cardiomyopathy as per echo in February 2020 EF 45% stage III diastolic dysfunction, PASP 44 mm. Patient had stress test in March 2020 which showed no evidence of ischemia. Other chronic comorbidities coronary artery disease status post CABG, CVA, type 2 diabetes mellitus and dyslipidemia as mentioned above. I have discussed my assessment with Odilia PRIEST and orders have been reviewed. Inpatient E&M: 70126 Subs Hosp L2
--- NOTE | 2020-08-11 13:19 | PCM.PN.CARD ---
Subjectve: The patient is awake and alert. Overall he states he is doing reasonably well at the moment but still feeling weak. He denies any ongoing chest discomfort or difficulty breathing. He states he still can sounds palpitations at times. Objective: Vital Signs Temp Pulse Resp BP Pulse Ox 97.5 F L 112 H 15 134/83 H 94 08/11/20 04:27 08/11/20 10:57 08/11/20 04:27 08/11/20 04:27 08/11/20 04:27 Oxygen Delivery Method Nasal Cannula Weight: 151 lb Body Mass Index (BMI) 22.3 Intake and Output for Last 24 Hours 08/09/20 08/10/20 08/11/20 23:59 23:59 23:59 Intake Total 1367.88 / 1427.88 2255.00 / 2405.00 1610 / 1610 Output Total 300 / 300 Balance 1367.88 / 1427.88 2255.00 / 2405.00 1310 / 1310 General: Awake, Alert, Oriented x 3, Cooperative, No Acute Distress HEENT: Atraumatic, Normocephalic, PERRL, EOMI, Sclera Non Icteric Neck: Supple, Good ROM, No JVD Lungs: Clear to auscultation Cardiovascular: Irregular Rhythm, Normal S1, Normal S2 Abdomen: Bowel Sounds Present, Soft Extremities: No edema Psych/Mental Status: Appropriate 08/10/20 11:15: Hemoglobin A1c 7.9 H 08/11/20 07:23: Sodium 140, Potassium 4.3, Chloride 105, Carbon Dioxide 28.0, Anion Gap 7, BUN 52 H, Creatinine 2.16 H, Est GFR (MDRD) Af Amer 38 L, Est GFR (MDRD) Non-Af 31 L, BUN/Creatinine Ratio 24.1 H, Glucose 46 L, Calcium 9.2 Rhythm: Atrial fibrillation Echocardiogram: Interpretation Summary The study was technically difficult. Moderately severe segmental systolic dysfunction (see wall motion). The estimated ejection fraction is 30 %. Moderate concentric left ventricular hypertrophy. The left atrium is mildly enlarged. The right atrium is mildly enlarged. Mild focal mitral valve calcification of the anterior leaflet. Moderately severe (3+) mitral valve insufficiency. Mild tricuspid valve insufficiency. Mild focal aortic valve calcification. Trivial aortic valve insufficiency. Trivial pulmonic valve insufficiency. Right ventricular systolic pressure estimated to be 54 mmHg. Unable to assess diastolic dysfunction. Medical Necessity - Tobacco Use Smoking Status: Never smoker Assessment/Plan 1. Atrial fibrillation with rapid ventricular response The patient has had recurrent atrial fibrillation with rapid ventricular response. It appears that he has undergone medical therapy and recently in June of this year synchronized biphasic DC cardioversion. However he has continued atrial fibrillation with episodes of rapid ventricular response. It appears when the patient's rate limiting medications have been increased that he either becomes bradycardic and/or hypotensive. He has been attempted on antiarrhythmic therapy with amiodarone but apparently was intolerant of such. He has remained on anticoagulant therapy. Based upon concerns of the difficulty controlling his rate with bradycardia and tachycardia and concerns of associated hypotension he may need to be considered for tertiary care center evaluation by electrophysiology for either atrial fibrillation ablation or possibly AV node ablation with permanent pacemaker support. 2. Bradycardia He was reported as being markedly bradycardic prior to his arrival at the hospital. He was then noted to be tachycardic. Again there has been reports that he has been difficult to control his tachydysrhythmia with rate limiting medication because of concerns of bradycardia dysrhythmias as well as hypotension. At the moment his medicines will be evaluated. They can be adjusted in attempt to avoid bradycardia as well as significant tachycardia. His blood pressures will be watched. However it would be reasonable to consider him for tertiary care center evaluation for the possibility of either atrial fibrillation ablation or AV node ablation with permanent pacemaker support. 3. Hypotension The patient did receive rate limiting medications. He became hypotensive. He received IV fluid resuscitation. His blood pressures have improved. His medications will have to be monitored as well as his volume status to avoid significant hypotension. 4. CAD status post CABG The patient has undergone revascularization therapy as noted above in [facility]. He has undergone recent noninvasive evaluation with echocardiogram and pharmacologic stress nuclear imaging study. He did not require repeat cardiac catheterization. He has had indeterminate troponin I levels in the past. They remain indeterminant at this time. His troponin I level now may be can secondary to his tachydysrhythmias as well as his hypotension. At the moment he should continue risk factor evaluation care/medical therapy as best as possible. However, based upon his diminished LV systolic function it would not be unreasonable to reassess his coronary/graft status prior to further EP evaluation. Thus further evaluation with diagnostic cardiac catheterization has been discussed with him. The risks and benefits have been discussed. He is agreeable to this approach at this time. 5. Ischemic mediated cardiomyopathy He does have what has been reported as an ischemic mediated cardiomyopathy. His recent noninvasive studies were noted. His LVEF is somewhat diminished. At the moment he does not appear to be obviously volume overloaded. He will need to be monitored for the appearance of an acute on chronic CHF secondary to systolic dysfunction and/or diastolic dysfunction. His medicines will be adjusted as needed. And based upon the appearance of the diminished LV systolic function it would not be unreasonable to reassess his coronary/graft anatomy prior to further EP evaluation unless otherwise contraindicated. 6. Abnormal troponin I levels Again his troponin levels may be secondary to a type II event secondary to his tachycardia dysrhythmias and his hypotension. Based upon his recent noninvasive study results he will continue medical therapy. With his diminished LV systolic function there is concern of the possibility of progressive CAD and/or graft vessel disease. Thus further evaluation with diagnostic cardiac catheterization would be here to be reasonable at this time. 7. Hyperlipidemia He will continue risk factor evaluation and care. 8. Hypertension He has a history of hypertension. Again there may be caution in adjusting his medicines to avoid hypotension. 9. Pulmonary hypertension He is been reported as having pulmonary hypertension in the past. He will need continued medical support. 10. Acute on chronic renal insufficiency His renal function will have to be taken into consideration with respect to his ongoing medication adjustment/volume adjustment, and any procedures that may require IV contrast mediated agents including cardiac catheterization. After IV fluids his renal function does appear to be improving. It will continue to be followed. Overall, at the present time, the cardiovascular standpoint, the patient will continue to be monitored. His medications will be adjusted in attempt to assist in controlling his heart rate as well as his blood pressures. This note was generated using a voice recognition system and there may be incorrect words, spelling or punctuation that were not noted when reviewing the office note prior to saving.
[2020-08-12] VITALS (12 sets, daily range): BP systolic 109–128; BP diastolic 71–81; PULSE 86–135; RESP 18–19; TEMP 36.3–36.9; O2SAT 95–98
[2020-08-12 07:44] LABS: Anion Gap 7 (5-15); BUN 42 mg/dL (7-18); BUN/Creat Ratio 23.5 RATIO (10-20); Calcium,Total 9.1 mg/dL (8.5-10.1); Chloride 106 mmol/L (98-107); Creatinine, Serum 1.79 mg/dL (0.70-1.30); EST Glomerular Filtration Rate 39 mL/min (>60); Est Glom Filt Rate - Afr Amer 47 mL/min (>60); Estimated Creatinine Clearance 30.82 ml/min; Glucose 32 mg/dL (74-106); Potassium 3.4 mmol/L (3.5-5.1); Sodium Level 140 mmol/L (136-145)
[2020-08-12 08:06] LABS: Bedside Glucose 30 mg/dL (70-110)
[2020-08-12] MEDS: Aspirin E.C. 81 MG Tablet PO (08:56)
[2020-08-12] MEDS: DULoxetine Hcl 30 MG Capsule PO (08:57)
[2020-08-12] MEDS: Metoprolol Tartrate 25 MG Tablet PO ×2 (08:57→21:18)
[2020-08-12 09:11] LABS: Bedside Glucose 74 mg/dL (70-110)
[2020-08-12 09:59] LABS: Absolute Lymphocyte Count 1.01 X10^3/uL (0.83-4.51); Absolute Neutrophil Count 6.7 X10^3/uL (2.0-7.7); Basophil# 0.01 X10^3/uL; Basophil% 0.1 % (0-1); Hemoglobin 13.6 g/dL (13.0-16.5); Lymphocyte # 1.01 X10^3/ul (4.0); Lymphocyte % 11.9 % (19-41); Mean Corp Hgb Conc 31.6 g/dL (32-36); Mean Corpuscular Volume 94.7 fL (80-94); Monocyte# 0.71 X10^3/uL; Monocyte% 8.4 % (0-10); NRBC Flagged by Analyzer 0 % (0-5); Neutrophil # 6.71 X10^3/uL (2.7-7.7); Neutrophil % 79.2 % (47-70); Platelet Count 129 K/mm3 (150-450); RBC Distribution Width CV 12.7 % (11.6-14.6); RBC Distribution Width SD 43.3 fl (35.1-43.9); Red Blood Count 4.54 M/mm3 (4.6-6.2); White Blood Count 8.5 K/mm3 (4.4-11.0)
--- NOTE | 2020-08-12 10:20 | PN.CARD_ITS ---
Subjectve: The patient is awake and alert. He states no ongoing chest discomfort. He notes his breathing appears to be okay at this time. He still senses in termittent palpitations. He notes in general he still feels weak. Objective: Vital Signs Temp Pulse Resp BP Pulse Ox 97.7 F L 116 H 18 121/79 H 98 08/12/20 08:55 08/12/20 08:57 08/12/20 08:55 08/12/20 08:55 08/12/20 08:55 Oxygen Delivery Method Room Air Weight: 151 lb Body Mass Index (BMI) 22.3 Intake and Output for Last 24 Hours 08/10/20 08/11/20 08/12/20 23:59 23:59 23:59 Intake Total 2255.00 / 2405.00 2094 Output Total 300 / 300 Balance 2255.00 / 2405.00 1794 / 1794 General: Awake, Alert, Oriented x 3, Cooperative, No Acute Distress, - - Frail- appearing HEENT: Atraumatic, Normocephalic, PERRL, EOMI, Sclera Non Icteric Neck: Supple, Good ROM, No JVD Lungs: Clear to auscultation Cardiovascular: Irregular Rhythm, Normal S1, Normal S2 Abdomen: Bowel Sounds Present, Soft Extremities: No edema Neurological: No Focal Motor or Sensory Deficit Psych/Mental Status: Flat Affect 08/12/20 06:40: Sodium 140, Potassium 3.4 L, Chloride 106, Carbon Dioxide 27.0, Anion Gap 7, BUN 42 H, Creatinine 1.79 H, Est GFR (MDRD) Af Amer 47 L, Est GFR (MDRD) Non-Af 39 L, BUN/Creatinine Ratio 23.5 H, Glucose 32 L*, Calcium 9.1, Magnesium 2.0 08/12/20 06:40: WBC 8.5, RBC 4.54 L, Hgb 13.6, Hct 43.0, MCV 94.7 H, MCH 30.0, MCHC 31.6 L, Plt Count 129 L, MPV 13.0 H, Immature Gran % (Auto) 0.400, Neut % (Auto) 79.2 H, Lymph % (Auto) 11.9 L, [place] % (Auto) 8.4, Eos % (Auto) 0.0, Baso % (Auto) 0.1, Absolute Neuts (auto) 6.7, Nucleated RBC % 0 Rhythm: Atrial fibrillation Medical Necessity - Tobacco Use Smoking Status: Never smoker Assessment/Plan 1. Atrial fibrillation with rapid ventricular response The patient has had recurrent atrial fibrillation with rapid ventricular response. It appears that he has undergone medical therapy and recently in June of this year synchronized biphasic DC cardioversion. However he has continued atrial fibrillation with episodes of rapid ventricular response. It appears when the patient's rate limiting medications have been increased that he either becomes bradycardic and/or hypotensive. He has been attempted on antiarrhythmic therapy with amiodarone but apparently was intolerant of such. He has remained on anticoagulant therapy. Based upon concerns of the difficulty controlling his rate with bradycardia and tachycardia and concerns of associated hypotension he may need to be considered for tertiary care center evaluation by electrophysiology for either atrial fibrillation ablation or possibly AV node ablation with permanent pacemaker support. 2. Bradycardia He was reported as being markedly bradycardic prior to his arrival at the hospital. He was then noted to be tachycardic. Again there has been reports that he has been difficult to control his tachydysrhythmia with rate limiting medication because of concerns of bradycardia dysrhythmias as well as hypotension. At the moment his medicines will be evaluated. They can be adjusted in attempt to avoid bradycardia as well as significant tachycardia. His blood pressures will be watched. However it would be reasonable to consider him for tertiary care center evaluation for the possibility of either atrial fibrillation ablation or AV node ablation with permanent pacemaker support. 3. Hypotension The patient did receive rate limiting medications. He became hypotensive. He received IV fluid resuscitation. His blood pressures have improved. His medications will have to be monitored as well as his volume status to avoid significant hypotension. 4. CAD status post CABG The patient has undergone revascularization therapy as noted above in [facility]. He has undergone recent noninvasive evaluation with echocardiogram and pharmacologic stress nuclear imaging study. He did not require repeat cardiac catheterization. He has had indeterminate troponin I levels in the past. They remain indeterminant at this time. His troponin I level now may be can secondary to his tachydysrhythmias as well as his hypotension. At the moment he should continue risk factor evaluation care/medical therapy as best as possible. However, based upon his diminished LV systolic function which appears to be more prominent than his most recent echocardiogram, it would not be unreasonable to reassess his coronary/graft status prior to further EP evaluation. Thus further evaluation with diagnostic cardiac catheterization has been discussed with him. The risks and benefits have been discussed. He is agreeable to this approach at this time. 5. Ischemic mediated cardiomyopathy He does have what has been reported as an ischemic mediated cardiomyopathy. His recent noninvasive studies were noted. His LVEF is diminished. At the moment he does not appear to be obviously volume overloaded. He will need to be monitored for the appearance of an acute on chronic CHF secondary to systolic dysfunction and/or diastolic dysfunction. His medicines will be adjusted as needed. And based upon the appearance of the diminished LV systolic function it would not be unreasonable to reassess his coronary/graft anatomy prior to further EP evaluation unless otherwise contraindicated. 6. Abnormal troponin I levels Again his troponin levels may be secondary to a type II event secondary to his tachycardia dysrhythmias and his hypotension. Based upon his recent noninvasive study results he will continue medical therapy. With his diminished LV systolic function there is concern of the possibility of progressive CAD and/or graft vessel disease. Thus further evaluation with diagnostic cardiac catheterization would be here to be reasonable at this time. 7. Hyperlipidemia He will continue risk factor evaluation and care. 8. Hypertension He has a history of hypertension. Again there may be caution in adjusting his medicines to avoid hypotension. 9. Pulmonary hypertension He is been reported as having pulmonary hypertension in the past. He will need continued medical support. 10. Acute on chronic renal insufficiency His renal insufficiency appears to be improving as his creatinine level has decreased to less than 2. Overall, at the present time, the cardiovascular standpoint, the patient will continue to be monitored. His medications will be adjusted in attempt to assist in controlling his heart rate as well as his blood pressures. This note was generated using a voice recognition system and there may be incorrect words, spelling or punctuation that were not noted when reviewing the office note prior to saving. Procedure Criteria Procedure Type: Elective COVID Risk Discussion: The surgeon/proceduralist and patient have discussed in detail the risk of exposure to and/or potential harm posed by the COVID-19 virus with having a surgery/procedure at this time versus the risk of delaying the surgery/procedure. It is not possible to know either the risk of delaying the surgery or procedure or chance of getting an infection with perfect accuracy, but a joint decision was made between the patient and the surgeon/proceduralist to proceed at this time with the scheduled surgery/procedure as indicated on the consent form.
[2020-08-12 11:21] LABS: Bedside Glucose 129 mg/dL (70-110)
--- NOTE | 2020-08-12 11:51 | PN_ITS ---
<BenedictOdilia BRAND PLANNER - Last Filed: 08/12/20 11:55> Patient Problems: Active and Suspected Problems (Last Reviewed 05/01/20 @ 14:[address] Jason rea MD) Elevated troponin (Acute) Atrial fibrillation with rapid ventricular response (Acute) Acute on chronic systolic and diastolic heart failure, NYHA class 2 (Acute) Nausea and vomiting (Acute) Bradycardia (Acute) Hypotension (Acute) CAD (coronary artery disease) (Acute) Subjective: Patient seen and examined. Reports he felt confused this morning, blood glucose was noted to be 32 on lab draw. Patient drank Coke and blood glucose improved. Confusion now resolved. He reports he has had a poor appetite and has been eating very little. Denies other symptoms or complaints. - Physical Exam Vitals/I&O's: Vital Signs Temp Pulse Resp BP Pulse Ox 97.7 F L 88 18 121/79 H 98 08/12/20 08:55 08/12/20 10:47 08/12/20 08:55 08/12/20 08:55 08/12/20 08:55 Oxygen Delivery Method Room Air Weight: 151 lb Body Mass Index (BMI) 22.3 Intake and Output for Last 24 Hours 08/10/20 08/11/20 08/12/20 23:59 23:59 23:59 Intake Total 2255.00 / 2405.00 5 / 2095 Output Total 300 / 300 Balance 2255.00 / 2405.00 1795 / 1795 General: Alert, Oriented x3, Cooperative HEENT: Atraumatic, PERRLA, EOMI, Normocephalic Neck: Supple, No JVD, Negative Carotid Bruits Lungs: Clear to auscultation, Diminished Cardiovascular: - - Atrial fibrillation, rate improved Abdomen: Bowel Sounds Present, Soft, Non Tender, Non-Distended Extremities: No clubbing, No cyanosis, No edema, Capillary Refill Less than 3 Seconds Skin: No rashes, No breakdown Musculoskeletal: No Tenderness to Palpation of Joints or Extremities Neurological: Cranial nerves II-XII grossly intact, Neuro grossly intact Psych/Mental Status: Normal Affect, Appropriate Laboratory Results 08/12/20 06:40: Sodium 140, Potassium 3.4 L, Chloride 106, Carbon Dioxide 27.0, Anion Gap 7, BUN 42 H, Creatinine 1.79 H, Estim Creat Clear Calc 30.82, Est GFR (MDRD) Af Amer 47 L, Est GFR (MDRD) Non-Af 39 L, BUN/Creatinine Ratio 23.5 H, Glucose 32 L*, Calcium 9.1, Magnesium 2.0 08/12/20 06:40: WBC 8.5, RBC 4.54 L, Hgb 13.6, Hct 43.0, MCV 94.7 H, MCH 30.0, MCHC 31.6 L, RDW Std Deviation 43.3, RDW Coeff of Shashank 12.7, Plt Count 129 L, MPV 13.0 H, Immature Gran % (Auto) 0.400, Neut % (Auto) 79.2 H, Lymph % (Auto) 11.9 L, [place] % (Auto) 8.4, Eos % (Auto) 0.0, Baso % (Auto) 0.1, Absolute Neuts (auto) 6.7, Absolute Lymphs (auto) 1.01, Nucleated RBC % 0 08/12/20 07:50: POC Glucose 30 L* 08/12/20 09:03: POC Glucose 74 08/12/20 11:03: POC Glucose 129 H Current Medications Acetaminophen (Acetaminophen 325 Mg Tablet) 650 mg PO Q6H PRN PRN PRN Reason: Pain Score 1-3 /Temp>100.7 Aspirin (Aspirin E.C. 81 Mg Tablet) 81 mg PO DAILY@0800 [facility] Last Admin: 08/12/20 08:56 Dose: 81 mg Documented by: Cholecalciferol (Cholecalciferol (Vit D3) 1,000 Unit (25mcg)) 5,000 unit PO DAILY [facility] Last Admin: 08/12/20 08:56 Dose: 5,000 unit Documented by: Duloxetine HCl (Duloxetine Hcl 30 Mg Capsule) 30 mg PO DAILY [facility] Last Admin: 08/12/20 08:57 Dose: 30 mg Documented by: Sodium Chloride () 1,000 mls @ 0 mls/hr IV .Q0M [facility] Metoprolol Tartrate (Metoprolol Tartrate 25 Mg Tablet) 25 mg PO BID [facility] Last Admin: 08/12/20 08:57 Dose: 25 mg Documented by: Ondansetron HCl (Ondansetron 4 Mg/2 Ml Vial) 4 mg IV Q8H PRN PRN PRN Reason: Nausea Oxycodone HCl (Oxycodone 5 Mg Tablet) 5 mg PO Q4H PRN PRN PRN Reason: Pain Score 4-10/10 Prochlorperazine Edisylate (Prochlorperazine 10 Mg/2 Ml Vial) 10 mg IV Q6H PRN PRN PRN Reason: Nausea/Vomiting Last Admin: 08/09/20 19:54 Dose: 10 mg Documented by: Sodium Chloride (0.9% Saline Lock 10 Ml Syringe) 10 - 40 ml IV UD PRN PRN Reason: SALINE FLUSH Last Admin: 08/09/20 23:02 Dose: 20 ml Documented by: Medical Necessity - Tobacco Use Smoking Status: Never smoker Assessment/Plan All Active Problems (Last Reviewed 05/01/20 @ 14:[address] Jason Lemus MD) Elevated troponin (Acute) Atrial fibrillation with rapid ventricular response (Acute) Acute on chronic systolic and diastolic heart failure, NYHA class 2 (Acute) Nausea and vomiting (Acute) Bradycardia (Acute) Hypotension (Acute) CAD (coronary artery disease) (Acute) Amiodarone toxicity (Resolved) Acute respiratory failure with hypoxemia (Resolved) Dyspnea (Resolved) Dyspnea on exertion (Resolved) Shortness of breath (Resolved) 1. Atrial fibrillation with variable rate-heart rate noted to be in 20s during home visit. Has since been tachycardic during admission. Cardiology following. Patient underwent recent cardioversion 07/18/2020. Continue home metoprolol regimen. Patient has been on amiodarone in the past and was unable to tolerate. Cardiology discussing possible transfer to tertiary care center for EP evaluation pending further cardiac evaluation for possible atrial fibrillation ablation or possible AV node ablation with permanent pacemaker support. Repeat echocardiogram demonstrates an EF of 30%, moderately severe mitral valve insufficiency, RVSP estimated to be 54 mmHg. Given LV function is reduced from prior study, possible heart cath on Thursday prior to discussing further EP evaluation. Eliquis on hold. 2. Hypotension-improved following discontinuation of Cardizem drip and fluid bolus. 3. Elevated troponin-possible demand ischemia related to #1. EKG without acute ischemia. Echocardiogram as noted above. Cardiology following. Heart cath on Thursday as noted above. 4. Chronic heart failure with reduced ejection fraction/Ischemic cardiomyopathy- BNP 2835. Chest x-ray unremarkable. Echocardiogram February 2020 demonstrated an EF 45%, stage III diastolic dysfunction, pulmonary artery systolic pressure 44 mmHg. Repeat echo as noted above. Patient underwent nuclear stress test 03/27/2020 which showed gated ejection fraction 29%, no evidence of ischemia, cardiomyopathy. Strict I&O. Daily weight. Hold Lasix due to hypotension. 5. CAD with history of CABG- Continue statin, metoprolol. Eliquis on hold. 6. History of CVA-statin, Eliquis. 7. Type 2 diabetes mellitus-Hemoglobin A1c 7.9%. Episode of hypoglycemia this morning. Accu-Cheks with ACH S. Encouraged oral intake. Glimepiride on hold. 8. Hypertension-stable, continue current regimen with hold parameters. 9. Hyperlipidemia-continue statin. DVT prophylaxis-Eliquis on hold This patient was seen by CHANTEL Kong under the supervision of Dr. Frost. <Prosper Frost - Last Filed: 08/12/20 14:46> Objective: Seen and examined. Patient had hypoglycemia episode, glucose 32 and D50 was given. Repeat glucose 129. Patient has poor oral intake and glimepiride was not given today. Glimepiride discontinued. On normal regular diet. Physical exam General: Alert, Oriented x3, Cooperative HEENT: Atraumatic, PERRLA, EOMI, Normocephalic Oral: No Gingival or Mucosal Lesions/ Ulcerations Neck: Supple, No JVD, Negative Carotid Bruits Lungs: Air entry diminished in bilateral lung bases. No crepitation/rhonchi. No tachypnea or hypoxia. Cardiovascular: Irregular heartbeat with A. fib, tachycardia, normal S1, Normal S2, No murmurs Abdomen: Bowel Sounds Present, Soft, Non Tender, Non-Distended : No renal angle tenderness. No suprapubic tenderness. Extremities: No edema, Capillary Refill Less than 3 Seconds Skin: No ulcers. No rash. Musculoskeletal: No Tenderness to Palpation of Joints or Extremities Neurological: Cranial nerves II-XII grossly intact, Deep Tendon Reflexes 2+/4 and Symmetrical, Neuro grossly intact Psych/Mental Status: Normal Affect, Appropriate. - Physical Exam Vitals/I&O's: Vital Signs Temp Pulse Resp BP Pulse Ox 97.7 F L 88 18 121/79 H 98 08/12/20 08:55 08/12/20 10:47 08/12/20 08:55 08/12/20 08:55 08/12/20 08:55 Oxygen Delivery Method Room Air Weight: 151 lb Body Mass Index (BMI) 22.3 Intake and Output for Last 24 Hours 08/10/20 08/11/20 08/12/20 23:59 23:59 23:59 Intake Total 2255.00 / 2405.00 2095 / 2095 400 / 400 Output Total 300 / 300 Balance 2255.00 / 2405.00 1795 / 1795 400 / 400 Laboratory Results 08/12/20 06:40: Sodium 140, Potassium 3.4 L, Chloride 106, Carbon Dioxide 27.0, Anion Gap 7, BUN 42 H, Creatinine 1.79 H, Estim Creat Clear Calc 30.82, Est GFR (MDRD) Af Amer 47 L, Est GFR (MDRD) Non-Af 39 L, BUN/Creatinine Ratio 23.5 H, Glucose 32 L*, Calcium 9.1, Magnesium 2.0 08/12/20 06:40: WBC 8.5, RBC 4.54 L, Hgb 13.6, Hct 43.0, MCV 94.7 H, MCH 30.0, MCHC 31.6 L, RDW Std Deviation 43.3, RDW Coeff of Shashank 12.7, Plt Count 129 L, MPV 13.0 H, Immature Gran % (Auto) 0.400, Neut % (Auto) 79.2 H, Lymph % (Auto) 11.9 L, [place] % (Auto) 8.4, Eos % (Auto) 0.0, Baso % (Auto) 0.1, Absolute Neuts (auto) 6.7, Absolute Lymphs (auto) 1.01, Nucleated RBC % 0 08/12/20 07:50: POC Glucose 30 L* 08/12/20 09:03: POC Glucose 74 08/12/20 11:03: POC Glucose 129 H Current Medications Acetaminophen (Acetaminophen 325 Mg Tablet) 650 mg PO Q6H PRN PRN PRN Reason: Pain Score 1-3 /Temp>100.7 Aspirin (Aspirin E.C. 81 Mg Tablet) 81 mg PO DAILY@0800 [id number] Last Admin: 08/12/20 08:56 Dose: 81 mg Documented by: Cholecalciferol (Cholecalciferol (Vit D3) 1,000 Unit (25mcg)) 5,000 unit PO DAILY [facility] Last Admin: 08/12/20 08:56 Dose: 5,000 unit Documented by: Duloxetine HCl (Duloxetine Hcl 30 Mg Capsule) 30 mg PO DAILY [facility] Last Admin: 08/12/20 08:57 Dose: 30 mg Documented by: Sodium Chloride () 1,000 mls @ 0 mls/hr IV .Q0M [facility] Metoprolol Tartrate (Metoprolol Tartrate 25 Mg Tablet) 25 mg PO BID [facility] Last Admin: 08/12/20 08:57 Dose: 25 mg Documented by: Nutritional Formula (Lactose Free) (Glucerna Shake 120 Ml Liquid) 120 ml PO 4X/DAY [facility] Last Admin: 08/12/20 13:04 Dose: 120 ml Documented by: Ondansetron HCl (Ondansetron 4 Mg/2 Ml Vial) 4 mg IV Q8H PRN PRN PRN Reason: Nausea Oxycodone HCl (Oxycodone 5 Mg Tablet) 5 mg PO Q4H PRN PRN PRN Reason: Pain Score 4-10/10 Prochlorperazine Edisylate (Prochlorperazine 10 Mg/2 Ml Vial) 10 mg IV Q6H PRN PRN PRN Reason: Nausea/Vomiting Last Admin: 08/09/20 19:54 Dose: 10 mg Documented by: Sodium Chloride (0.9% Saline Lock 10 Ml Syringe) 10 - 40 ml IV UD PRN PRN Reason: SALINE FLUSH Last Admin: 08/09/20 23:02 Dose: 20 ml Documented by: Assessment/Plan This patient was seen in conjunction with BRAND PLANNER, Odilia. I have independently interviewed and examined the patient and reviewed pertinent history, examination findings, laboratory and plan of management. I have reviewed the note and agree with the documented findings with the few additional points. In brief, patient is 80-year-old gentleman admitted with A. fib with variable rate. Patient drop blood pressure on Cardizem drip after Cardizem bolus, hypotensive and got fluid bolus in ER. Blood pressure recovered continue home metoprolol dose and Eliquis. Apartment Community Manager saw the patient. Troponins mildly elevated 0.550. Plan is to do cardiac cath on coming Thursday to rule out new coronary ischemia or arrhythmia, A. fib with variable rate. 2D echo reported as Moderately severe segmental systolic dysfunction (see wall motion).The estimated ejection fraction is 30 %.Moderate concentric left ventricular hypertrophy.The left atrium is mildly enlarged. The right atrium is mildly enlarged. Mild focal mitral valve calcification of the anterior leaflet. Moderately severe (3+) mitral valve insufficiency. Mild tricuspid valve insufficiency. Mild focal aortic valve calcification. Trivial aortic valve insufficiency. Trivial pulmonic valve insufficiency. Right ventricular systolic pressure estimated to be 54 mmHg. 08/11: Heart rate is still not controlled. On metoprolol 25 mg p.o. twice daily digoxin 250 mcg IV given. Will follow. 08/12: Heart rate still fluctuates between 80- 110s, A. fib. Hypertension: Blood pressure recovered. Hold antihypertensive medication. BP has recovered. Discontinue IV fluid. Has chronic systolic and diastolic heart failure, ischemic cardiomyopathy as per echo in February 2020 EF 45% stage III diastolic dysfunction, PASP 44 mm. Patient had stress test in March 2020 which showed no evidence of ischemia. Other chronic comorbidities coronary artery disease status post CABG, CVA, type 2 diabetes mellitus and dyslipidemia as mentioned above. I have discussed my assessment with Odilia PRIEST and orders have been reviewed. Inpatient E&M: 20905 Subs Hosp L2
[2020-08-12] MEDS: Glucerna Shake 120 ML LIQUID PO (13:04)
[2020-08-12 16:51] LABS: Bedside Glucose 164 mg/dL (70-110)
[2020-08-12] MEDS: Ondansetron 4 MG/2 ML Vial IV (21:14)
[2020-08-12] MEDS: 0.9% Saline Lock 10 ML Syringe IV ×2 (21:17→21:51)
[2020-08-12] MEDS: proCHLORPERazine 10 MG/2 ML Vial IV (21:51)
[2020-08-12 22:15] LABS: Bedside Glucose 179 mg/dL (70-110)
[2020-08-13] VITALS (22 sets, daily range): BP systolic 97–121; BP diastolic 57–89; PULSE 69–124; RESP 16–19; TEMP 36.3–36.9; O2SAT 95–99
[2020-08-13] MEDS: Metoprolol Tartrate 25 MG Tablet PO ×2 (05:31→21:33)
[2020-08-13] MEDS: 0.9% Saline Lock 10 ML Syringe IV (05:31)
[2020-08-13] MEDS: Aspirin E.C. 81 MG Tablet PO (05:31)
[2020-08-13 06:35] LABS: Hematocrit 42.1 % (40-54); Hemoglobin 13.3 g/dL (13.0-16.5); Mean Corp Hgb Conc 31.6 g/dL (32-36); Mean Corpuscular Hgb 29.6 pg (27.0-32.0); Mean Corpuscular Volume 93.8 fL (80-94); Mean Platelet Vol. 12.2 fl (6.2-12.0); Platelet Count 122 K/mm3 (150-450); RBC Distribution Width CV 12.6 % (11.6-14.6); Red Blood Count 4.49 M/mm3 (4.6-6.2); White Blood Count 7.7 K/mm3 (4.4-11.0)
[2020-08-13 06:42] LABS: International Normalized Ratio 1.2; Prothrombin Time (Protime)PT. 15.1 SECONDS (11.7-14.9)
[2020-08-13 06:46] LABS: Bedside Glucose 104 mg/dL (70-110)
[2020-08-13 06:59] LABS: Anion Gap 8 (5-15); BUN 39 mg/dL (7-18); BUN/Creat Ratio 23.8 RATIO (10-20); Chloride 107 mmol/L (98-107); Creatinine, Serum 1.64 mg/dL (0.70-1.30); EST Glomerular Filtration Rate 43 mL/min (>60); Est Glom Filt Rate - Afr Amer 52 mL/min (>60); Estimated Creatinine Clearance 33.64 ml/min; Glucose 111 mg/dL (74-106); Potassium 3.7 mmol/L (3.5-5.1); Sodium Level 138 mmol/L (136-145)
[2020-08-13] MEDS: 0.9% Normal Saline 1,000 ML 5 ML IV (10:21)
--- NOTE | 2020-08-13 11:54 | PCM.PN.CARD ---
Subjectve: Patient seen and evaluated. Underwent cardiac catheterization today. Objective: Vital Signs Temp Pulse Resp BP Pulse Ox 97.4 F L 84 18 103/63 97 08/13/20 08:28 08/13/20 10:33 08/13/20 10:33 08/13/20 08:28 08/13/20 10:33 Oxygen Delivery Method Room Air Weight: 151 lb Body Mass Index (BMI) 22.3 Intake and Output for Last 24 Hours 08/11/20 08/12/20 08/13/20 23:59 23:59 23:59 Intake Total 5 / 2095 800 / 815 30 / 30 Output Total 300 / 300 300 / 300 Balance 1795 / 1795 800 / 515 -270 / -270 General: Awake, Alert, Oriented x 3 HEENT: PERRL, EOMI, Sclera Non Icteric Neck: Supple, Good ROM, No Lymph Node Enlargement Lungs: Clear to auscultation Cardiovascular: Irregular Rhythm, Normal S1, Normal S2, No Murmurs, No Rubs, No Gallops Vascular: No Carotid Bruits, Normal Femoral Pulses, Normal Radial Pulses, Normal Dorsalis Pedal Pulse, Normal Posterior Tibial Pulses Abdomen: Bowel Sounds Present, Soft, Non Tender, No HSM, No Organomegaly Extremities: No Cyanosis, No Clubbing, No edema Neurological: No Focal Motor or Sensory Deficit 08/13/20 06:20: Sodium 138, Potassium 3.7, Chloride 107, Carbon Dioxide 23.0, Anion Gap 8, BUN 39 H, Creatinine 1.64 H, Est GFR (MDRD) Af Amer 52 L, Est GFR (MDRD) Non-Af 43 L, BUN/Creatinine Ratio 23.8 H, Glucose 111 H, Calcium 9.0 08/13/20 06:20: WBC 7.7, RBC 4.49 L, Hgb 13.3, Hct 42.1, MCV 93.8, MCH 29.6, MCHC 31.6 L, Plt Count 122 L, MPV 12.2 H 08/13/20 06:20: PT 15.1 H, INR 1.2 Rhythm: EKG: ECHO: Stress Test: Cardiac Cath: PCI: CT Surgery: Holter monitor: EPS: PPM: CXR: Chest CT Scan: Medical Necessity - Tobacco Use Smoking Status: Never smoker Assessment/Plan 1. Atrial fibrillation with rapid ventricular response The patient has had recurrent atrial fibrillation with rapid ventricular response. It appears that he has undergone medical therapy and recently in June of this year synchronized biphasic DC cardioversion. However he has continued atrial fibrillation with episodes of rapid ventricular response. He apparently has not tolerated other rate limiting medication without becoming bradycardic and he did not tolerate amiodarone. We will consider VVI pacing in the next 24 to 48 hours to assist with this. . 2. Bradycardia He was reported as being markedly bradycardic prior to his arrival at the hospital. He was then noted to be tachycardic. Again there has been reports that he has been difficult to control his tachydysrhythmia with rate limiting medication because of concerns of bradycardia dysrhythmias as well as hypotension. We will consider pacemaker support for the above. 3. Hypotension The patient did receive rate limiting medications. He became hypotensive. He received IV fluid resuscitation. His blood pressures have improved.His medications will have to be monitored as well as his volume status to avoid significant hypotension. 4. CAD status post CABG The patient has undergone revascularization therapy as noted above in [facility]. He underwent cardiac catheterization this morning which demonstrated patency of his bypass grafts. This therefore does not appear to be responsible for any major issues. 5. Ischemic mediated cardiomyopathy He does have what has been reported as an ischemic mediated cardiomyopathy. This appears to be contributed to by his tachycardia. My suspicion is that his depression and low ventricular ejection fraction is secondary to a tachycardia induced cardiomyopathy. After he has been treated with a pacemaker we will consider him for DC cardioversion. 6. Abnormal troponin I levels Again his troponin levels may be secondary to a type II event secondary to his tachycardia dysrhythmias and his hypotension. His cardiac catheterization today does corroborate the above results. 7. Hyperlipidemia He will continue risk factor evaluation and care. 8. Hypertension He has a history of hypertension. Again there may be caution in adjusting his medicines to avoid hypotension. 9. Pulmonary hypertension He is been reported as having pulmonary hypertension in the past. He will need continued medical support. 10. Acute on chronic renal insufficiency His renal insufficiency appears to be improving as his creatinine level has decreased to less than 2. Overall, at the present time, the cardiovascular standpoint, the patient will continue to be monitored. His medications will be adjusted in attempt to assist in controlling his heart rate as well as his blood pressures. Thank you for allowing me to participate in the care of your patient. Please don't hesitate to call if any issues arise.
--- NOTE | 2020-08-13 12:05 | CL.D_ITS ---
Patient Name: MARTHA GUNTER Study Date: 08/13/2020 Performing: Jason Lemus MD Ht: 69 inches 175 cm : 1940 Wt: 150.1 lbs 68 kg Age: 80 Gender: male BSA: 1.83 PROCEDURE(S) PERFORMED [id number]-[id number]/COR/CABG CLINICAL PROFILE AND INDICATIONS Indications: Stable Known CAD Heart Failure: NYHA Class: 3, Newly Diagnosed: Yes, Heart Failure Type: Systolic Stress/Imaging Stress/Image Study Performed: No CAD Presentations: No Sxs, no angina. CONCLUSIONS The patient overall appears to be well revascularized. 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 DESCRIPTION OF PROCEDURE The patient arrived to the procedure lab. The risks and benefits of the procedure as well as a full d escription of our services here and current unavailability of surgical backup were fully explained to the patient and/or their significant other prior to the catheterization. The Timeout was completed, verifying the correct patient and procedure. The patient's procedural site was prepped and draped in the usual fashion. Local anesthetic was given subcutaneously to right groin region with Lidocaine 2%. Using a modified Seldinger technique, arterial access was obtained via the right femoral artery, a 5 Fr sheath was inserted. Left Coronary Artery selective angiography was performed in multiple views u sing a 5 Fr. JL4 catheter. Right Coronary Artery selective angiography was then performed in multiple views using a 5 Fr. 3DRC (Greg) catheter. Saphenous Vein graft to the OM 2 and Diag using select melissa angiography was performed in multiple views using a 5 Fr. 3DRC (Greg) catheter. Saphenous Vein graft to the RPDA selective angiography was performed in multiple views using a 5 Fr. 3DRC (Greg) catheter. Left internal mammary artery graft to the LAD selective angiography was per formed in multiple views using a 5 Fr. IM catheter.Contrast was injected through the sheath and the R ight Iliac and Femoral artery were assessed for possible closure device.The arterial sheath was pulle d and a Mynx closure device was deployed for hemostasis CORONARY ANGIOGRAPHY DOMINANCE: Right Dominant LEFT HEART ASSESSMENT Left Ventricular Ejection Fraction: by Echo 30 % Depressed Left Ventricular systolic function LEFT MAIN: Mild calcification, No significant disease noted LEFT ANTERIOR DESCENDING ARTERY: OSTIAL LAD: is occluded DISTAL LAD: The above is severely diseased especially after the COLES anastomotic point with no signif icant flow and is essentially nonfunctional. CIRCUMFLEX ARTERY: PROX CIRC: Moderate luminal irregularities up to 50% OM 1: Proximal - Diffusely diseased up to 70 % OM 2: Proximal - Moderate luminal irregularities up to 50% RIGHT CORONARY ARTERY: Mild luminal irregularities less than 30% GRAFTS: COLES graft to the Mid LAD is patent Saphenous Vein graft to the RPDA is patent Saphenous Vein graft to the 2nd OM is patent Sequential graft to the The saphenous vein graft to the diagonal branch which comes off the saphenous vein graft to the obtuse marginal branch is patent with good distal flow. COMPLICATIONS No Complications PROCEDURE MEDICATIONS Versed 0.5 mg IV Oxygen: 2 L/min via nasal cannula SUMMARY OF HEMODYNAMIC DATA Time AIR REST ECG 11:12:10 AO 111/69 (86) SA 11:31:53 AO 95/73 (82) 11:43:39 Signed By Jason Lemus MD On 08/13/2020 12:04:39 Jason Lemus MD
[2020-08-13 12:30] LABS: Bedside Glucose 113 mg/dL (70-110)
[2020-08-13] MEDS: Glucerna Shake 120 ML LIQUID PO ×2 (13:14→16:21)
[2020-08-13] MEDS: Digoxin 125 MCG Tablet PO (13:15)
[2020-08-13] MEDS: DULoxetine Hcl 30 MG Capsule PO (13:17)
--- NOTE | 2020-08-13 13:43 | PCM.PROGNOTE ---
<Odilia Mcmullen [employer] - Last Filed: 08/13/20 14:51> Patient Problems: Active and Suspected Problems (Last Updated 08/13/20 @ 13:45 by Belle Gonzalez) Elevated troponin (Acute 08/09/20) Atrial fibrillation with rapid ventricular response (Acute 08/09/20) Acute on chronic systolic and diastolic heart failure, NYHA class 2 (Acute) Nausea and vomiting (Acute) Bradycardia (Acute) Hypotension (Acute) Subjective: Patient seen and examined. No acute events overnight. Underwent heart cath this morning which showed nonobstructive coronary arteries, cardiomyopathy suspected secondary to tachycardia. Patient denies current symptoms or complaints. - Physical Exam Vitals/I&O's: Vital Signs Temp Pulse Resp BP Pulse Ox 97.7 F L 70 18 97/57 L 95 08/13/20 12:05 08/13/20 13:15 08/13/20 13:02 08/13/20 13:15 08/13/20 13:02 Oxygen Delivery Method Room Air Weight: 151 lb Body Mass Index (BMI) 22.3 Intake and Output for Last 24 Hours 08/11/20 08/12/20 08/13/20 23:59 23:59 23:59 Intake Total 2095 / 2095 800 / 815 30 / 30 Output Total 300 / 300 300 / 300 Balance 1795 / 1795 800 / 515 -270 / -270 General: Alert, Oriented x3, Cooperative HEENT: Atraumatic, PERRLA, EOMI, Normocephalic Neck: Supple, No JVD, Negative Carotid Bruits Lungs: Clear to auscultation, Diminished Cardiovascular: - - Atrial fibrillation, rate controlled Abdomen: Bowel Sounds Present, Soft, Non Tender, Non-Distended Extremities: No clubbing, No cyanosis, No edema, Capillary Refill Less than 3 Seconds Skin: No rashes, No breakdown Musculoskeletal: No Tenderness to Palpation of Joints or Extremities Neurological: Cranial nerves II-XII grossly intact, Neuro grossly intact Psych/Mental Status: Flat Affect Laboratory Results 08/12/20 16:43: POC Glucose 164 H 08/12/20 21:23: POC Glucose 179 H 08/13/20 06:20: Sodium 138, Potassium 3.7, Chloride 107, Carbon Dioxide 23.0, Anion Gap 8, BUN 39 H, Creatinine 1.64 H, Estim Creat Clear Calc 33.64, Est GFR (MDRD) Af Amer 52 L, Est GFR (MDRD) Non-Af 43 L, BUN/Creatinine Ratio 23.8 H, Glucose 111 H, Calcium 9.0 08/13/20 06:20: WBC 7.7, RBC 4.49 L, Hgb 13.3, Hct 42.1, MCV 93.8, MCH 29.6, MCHC 31.6 L, RDW Std Deviation 43.0, RDW Coeff of Shashank 12.6, Plt Count 122 L, MPV 12.2 H 08/13/20 06:20: PT 15.1 H, INR 1.2 08/13/20 06:36: POC Glucose 104 08/13/20 12:24: POC Glucose 113 H Current Medications Acetaminophen (Acetaminophen 325 Mg Tablet) 650 mg PO Q6H PRN PRN PRN Reason: Pain Score 1-3 /Temp>100.7 Aspirin (Aspirin E.C. 81 Mg Tablet) 81 mg PO DAILY@0800 [facility] Last Admin: 08/13/20 05:31 Dose: 81 mg Documented by: Cholecalciferol (Cholecalciferol (Vit D3) 1,000 Unit (25mcg)) 5,000 unit PO DAILY [facility] Last Admin: 08/13/20 13:16 Dose: 5,000 unit Documented by: Digoxin (Digoxin 125 Mcg Tablet) 125 mcg PO DAILY [facility] Last Admin: 08/13/20 13:15 Dose: 125 mcg Documented by: Duloxetine HCl (Duloxetine Hcl 30 Mg Capsule) 30 mg PO DAILY [facility] Last Admin: 08/13/20 13:17 Dose: 30 mg Documented by: Heparin Sodium (Beef Lung) (Heparin Lock 500 Unit/5 Ml In 10 Ml Syringe) 500 unit IV UD PRN PRN Reason: HEPARIN FLUSH Sodium Chloride () 1,000 mls @ 0 mls/hr IV .Q0M [facility] Last Admin: 08/13/20 10:21 Dose: 5 mls/hr Documented by: Labetalol HCl (Labetalol (Prefilled) 20 Mg/4 Ml) 5 mg IV X1 PRN PRN Reason: SBP > 160 prior to sheath pull Stop: 08/15/20 11:53 Metoprolol Tartrate (Metoprolol Tartrate 25 Mg Tablet) 25 mg PO BID [facility] Last Admin: 08/13/20 05:31 Dose: 25 mg Documented by: Nutritional Formula (Lactose Free) (Glucerna Shake 120 Ml Liquid) 120 ml PO 4X/DAY [facility] Last Admin: 08/13/20 13:14 Dose: 120 ml Documented by: Ondansetron HCl (Ondansetron 4 Mg/2 Ml Vial) 4 mg IV Q8H PRN PRN PRN Reason: Nausea Last Admin: 08/12/20 21:14 Dose: 4 mg Documented by: Oxycodone HCl (Oxycodone 5 Mg Tablet) 5 mg PO Q4H PRN PRN PRN Reason: Pain Score 4-10/10 Prochlorperazine Edisylate (Prochlorperazine 10 Mg/2 Ml Vial) 10 mg IV Q6H PRN PRN PRN Reason: Nausea/Vomiting Last Admin: 08/12/20 21:51 Dose: 10 mg Documented by: Sodium Chloride (0.9% Saline Lock 10 Ml Syringe) 10 - 40 ml IV UD PRN PRN Reason: SALINE FLUSH Last Admin: 08/13/20 05:31 Dose: 10 ml Documented by: Medical Necessity - Tobacco Use Smoking Status: Never smoker Assessment/Plan All Active Problems (Last Updated 08/13/20 @ 13:45 by Belle Gonzalez) Elevated troponin (Acute 08/09/20) Atrial fibrillation with rapid ventricular response (Acute 08/09/20) Acute on chronic systolic and diastolic heart failure, NYHA class 2 (Acute) Nausea and vomiting (Acute) Bradycardia (Acute) Hypotension (Acute) Amiodarone toxicity (Resolved) Acute respiratory failure with hypoxemia (Resolved) Dyspnea (Resolved) Dyspnea on exertion (Resolved) Shortness of breath (Resolved) 1. Atrial fibrillation with variable rate-heart rate noted to be in 20s during home visit. Has since been tachycardic during admission. Cardiology following. Patient underwent recent cardioversion 07/18/2020. Continue home metoprolol regimen. Patient has been on amiodarone in the past and was unable to tolerate. Repeat echocardiogram demonstrates an EF of 30%, moderately severe mitral valve insufficiency, RVSP estimated to be 54 mmHg. Given LV function is reduced from prior study, patient underwent heart cath which showed nonobstructive coronary arteries. Cardiomyopathy suspected secondary to tachycardia. Plan for single lead pacer placement, tentatively Thursday. Hold Eliquis. Initiated on digoxin. 2. Hypotension-improved following discontinuation of Cardizem drip and fluid bolus. 3. Elevated troponin-possible demand ischemia related to #1. EKG without acute ischemia. Echocardiogram as noted above. Cardiology following. Heart cath with nonobstructive coronary arteries. 4. Chronic heart failure with reduced ejection fraction/Ischemic cardiomyopathy-BNP 2835. Chest x-ray unremarkable. Echocardiogram February 2020 demonstrated an EF 45%, stage III diastolic dysfunction, pulmonary artery systolic pressure 44 mmHg. Repeat echo as noted above. Patient underwent nuclear stress test 03/27/2020 which showed gated ejection fraction 29%, no evidence of ischemia, cardiomyopathy. Strict I&O. Daily weight. Hold Lasix due to hypotension. 5. CAD with history of CABG- Continue statin, metoprolol. Eliquis on hold. 6. History of CVA-statin, Eliquis. 7. Type 2 diabetes mellitus-Hemoglobin A1c 7.9%. Accu-Cheks with ACHS. Encouraged oral intake. Glimepiride on hold due to hypoglycemia. 8. Hypertension-stable, continue current regimen with hold parameters. 9. Hyperlipidemia-continue statin. DVT prophylaxis-Eliquis on hold This patient was seen by CHANTEL Kong under the supervision of Dr. Carbone. <Nancy Carbone - Last Filed: 08/13/20 18:09> - Physical Exam Vitals/I&O's: Vital Signs Temp Pulse Resp BP Pulse Ox 97.4 F L 101 H 18 114/63 98 08/13/20 15:59 08/13/20 15:59 08/13/20 15:59 08/13/20 15:59 08/13/20 15:59 Oxygen Delivery Method Room Air Weight: 68.5 kg Body Mass Index (BMI) 22.3 Intake and Output for Last 24 Hours 08/11/20 08/12/20 08/13/20 23:59 23:59 23:59 Intake Total 2094 / 2094 800 / 815 563.67 / 563.67 Output Total 300 / 300 300 / 300 Balance 1795 / 1795 800 / 515 263.67 / 263.67 Laboratory Results 08/12/20 21:23: POC Glucose 179 H 08/13/20 06:20: Sodium 138, Potassium 3.7, Chloride 107, Carbon Dioxide 23.0, Anion Gap 8, BUN 39 H, Creatinine 1.64 H, Estim Creat Clear Calc 33.64, Est GFR (MDRD) Af Amer 52 L, Est GFR (MDRD) Non-Af 43 L, BUN/Creatinine Ratio 23.8 H, Glucose 111 H, Calcium 9.0 08/13/20 06:20: WBC 7.7, RBC 4.49 L, Hgb 13.3, Hct 42.1, MCV 93.8, MCH 29.6, MCHC 31.6 L, RDW Std Deviation 43.0, RDW Coeff of Shashank 12.6, Plt Count 122 L, MPV 12.2 H 08/13/20 06:20: PT 15.1 H, INR 1.2 08/13/20 06:36: POC Glucose 104 08/13/20 12:24: POC Glucose 113 H 08/13/20 16:03: POC Glucose 229 H Current Medications Acetaminophen (Acetaminophen 325 Mg Tablet) 650 mg PO Q6H PRN PRN PRN Reason: Pain Score 1-3 /Temp>100.7 Aspirin (Aspirin E.C. 81 Mg Tablet) 81 mg PO DAILY@0800 [facility] Last Admin: 08/13/20 05:31 Dose: 81 mg Documented by: Cholecalciferol (Cholecalciferol (Vit D3) 1,000 Unit (25mcg)) 5,000 unit PO DAILY [facility] Last Admin: 08/13/20 13:16 Dose: 5,000 unit Documented by: Digoxin (Digoxin 125 Mcg Tablet) 125 mcg PO DAILY [facility] Last Admin: 08/13/20 13:15 Dose: 125 mcg Documented by: Duloxetine HCl (Duloxetine Hcl 30 Mg Capsule) 30 mg PO DAILY [facility] Last Admin: 08/13/20 13:17 Dose: 30 mg Documented by: Heparin Sodium (Beef Lung) (Heparin Lock 500 Unit/5 Ml In 10 Ml Syringe) 500 unit IV UD PRN PRN Reason: HEPARIN FLUSH Labetalol HCl (Labetalol (Prefilled) 20 Mg/4 Ml) 5 mg IV X1 PRN PRN Reason: SBP > 160 prior to sheath pull Stop: 08/15/20 11:53 Metoprolol Tartrate (Metoprolol Tartrate 25 Mg Tablet) 25 mg PO BID [facility] Last Admin: 08/13/20 05:31 Dose: 25 mg Documented by: Nutritional Formula (Lactose Free) (Glucerna Shake 120 Ml Liquid) 120 ml PO 4X/DAY [facility] Last Admin: 08/13/20 16:21 Dose: 120 ml Documented by: Ondansetron HCl (Ondansetron 4 Mg/2 Ml Vial) 4 mg IV Q8H PRN PRN PRN Reason: Nausea Last Admin: 08/12/20 21:14 Dose: 4 mg Documented by: Oxycodone HCl (Oxycodone 5 Mg Tablet) 5 mg PO Q4H PRN PRN PRN Reason: Pain Score 4-10/10 Prochlorperazine Edisylate (Prochlorperazine 10 Mg/2 Ml Vial) 10 mg IV Q6H PRN PRN PRN Reason: Nausea/Vomiting Last Admin: 08/12/20 21:51 Dose: 10 mg Documented by: Sodium Chloride (0.9% Saline Lock 10 Ml Syringe) 10 - 40 ml IV UD PRN PRN Reason: SALINE FLUSH Last Admin: 08/13/20 05:31 Dose: 10 ml Documented by: Assessment/Plan This patient was seen in conjunction with Odilia Mcmullen [employer]. I have independently interviewed and examined the patient and reviewed pertinent historical, laboratory, and other data. Please refer to her note for patient's presentation, findings, and recommendations. Patient was seen and examined. Patient underwent cardiac cath showed significant disease but unremarkable for intervention. No acute events overnight. He denied any chest pain or dizziness at time of being seen Vitals were reviewed -stable Physical Exam: Gen: Comfortable, not pale, not jaundiced, alert oriented x3 CVS:HS I +II, regular, no murmurs RESP: Diminished at lung bases GI: BS present and normal, nontender, no palpable organs EXT:No edema Labs reviewed: ASSESSMENT: 1. A. fib with RVR 2. Elevated troponin 3. Hypertension 4. Acute on chronic combined CHF 5. CAD status post CABG 6. History of CVA 7. Type II DM 8. Hypertension 9. Hyperlipidemia Meds reviewed Plan: Continue on aspirin and metoprolol Continue per cardiology recommendations Inpatient E&M: [id number] [facility] Hosp L2
[2020-08-13 16:11] LABS: Bedside Glucose 229 mg/dL (70-110)
[2020-08-13 22:05] LABS: Bedside Glucose 165 mg/dL (70-110)
[2020-08-14] VITALS (17 sets, daily range): BP systolic 102–130; BP diastolic 62–104; PULSE 97–135; RESP 18–22; TEMP 36.1–36.7; O2SAT 93–98
[2020-08-14] MEDS: Metoprolol Tartrate 5 MG/5 ML Vial IV ×3 (04:41→07:15)
[2020-08-14] MEDS: Ondansetron 4 MG/2 ML Vial IV (04:49)
[2020-08-14] MEDS: 0.9% Saline Lock 10 ML Syringe IV ×3 (04:49→07:15)
[2020-08-14 06:47] LABS: Anion Gap 6 (5-15); BUN 36 mg/dL (7-18); Chloride 103 mmol/L (98-107); Creatinine, Serum 1.64 mg/dL (0.70-1.30); EST Glomerular Filtration Rate 43 mL/min (>60); Est Glom Filt Rate - Afr Amer 52 mL/min (>60); Estimated Creatinine Clearance 33.65 ml/min; Glucose 164 mg/dL (74-106); Potassium 4.4 mmol/L (3.5-5.1); Sodium Level 137 mmol/L (136-145)
--- NOTE | 2020-08-14 07:38 | PN.CARD_ITS ---
Subjectve: Patient seen and evaluated. Appears to be doing better this morning. He is still somewhat short of breath. Objective: Vital Signs Temp Pulse Resp BP Pulse Ox 97.8 F 131 H 20 H 123/82 H 93 08/14/20 06:04 08/14/20 07:15 08/14/20 06:04 08/14/20 06:04 08/14/20 06:04 Oxygen Delivery Method Room Air Weight: 151 lb 0.266 oz Body Mass Index (BMI) 22.3 Intake and Output for Last 24 Hours 08/12/20 08/13/20 08/14/20 23:59 23:59 23:59 Intake Total 800 / 815 563.67 / 608.67 105 / 105 Output Total 300 / 300 Balance 800 / 515 263.67 / 308.67 105 / 105 General: Awake, Alert, Oriented x 3 HEENT: PERRL, EOMI, Sclera Non Icteric Neck: Supple, Good ROM, No Lymph Node Enlargement Lungs: Diminished Rj Bases Cardiovascular: Irregular Rhythm, Normal S1, Normal S2, No Murmurs, No Rubs, No Gallops Vascular: No Carotid Bruits, Normal Femoral Pulses, Normal Radial Pulses, Normal Dorsalis Pedal Pulse, Normal Posterior Tibial Pulses Abdomen: Bowel Sounds Present, Soft, Non Tender, No HSM, No Organomegaly Extremities: No Cyanosis, No Clubbing, No edema Neurological: No Focal Motor or Sensory Deficit 08/14/20 05:50: Sodium 137, Potassium 4.4, Chloride 103, Carbon Dioxide 28.0, Anion Gap 6, BUN 36 H, Creatinine 1.64 H, Est GFR (MDRD) Af Amer 52 L, Est GFR (MDRD) Non-Af 43 L, BUN/Creatinine Ratio 22.0 H, Glucose 164 H, Calcium 9.0 Rhythm: EKG: ECHO: Stress Test: Cardiac Cath: PCI: CT Surgery: Holter monitor: EPS: PPM: CXR: Chest CT Scan: Medical Necessity - Tobacco Use Smoking Status: Never smoker Assessment/Plan 1. Atrial fibrillation with rapid ventricular response The patient has had recurrent atrial fibrillation with rapid ventricular response. It appears that he has undergone medical therapy and recently in June of this year synchronized biphasic DC cardioversion. However he has continued atrial fibrillation with episodes of rapid ventricular response. He apparently has not tolerated other rate limiting medication without becoming bradycardic and he did not tolerate amiodarone. We will consider VVI pacing in the next 24 to 48 hours to assist with this. He more than likely will be a candidate for the Micra device. I have discussed this with him and he understands and agrees to proceed. We would likely perform this on . . 2. Bradycardia He was reported as being markedly bradycardic prior to his arrival at the hospital. He was then noted to be tachycardic. Again there has been reports that he has been difficult to control his tachydysrhythmia with rate limiting medication because of concerns of bradycardia dysrhythmias as well as hypotension. We will consider pacemaker support for the above. Will slowly increase his beta-kelsey. 3. Hypotension The patient did receive rate limiting medications. He became hypotensive. He received IV fluid resuscitation. His blood pressures have improved.His medications will have to be monitored as well as his volume status to avoid significant hypotension. His blood pressure appears to be better at this time. His beta-kelsey medication has been increased. 4. CAD status post CABG The patient has undergone revascularization therapy as noted above in [facility]. He underwent cardiac catheterization this morning which demonstrated patency of his bypass grafts. This therefore does not appear to be responsible for any major issues. 5. Ischemic mediated cardiomyopathy He does have what has been reported as an ischemic mediated cardiomyopathy. This appears to be contributed to by his tachycardia. My suspicion is that his depression and low ventricular ejection fraction is secondary to a tachycardia induced cardiomyopathy. After he has been treated with a pacemaker we will consider him for DC cardioversion. 6. Abnormal troponin I levels Again his troponin levels may be secondary to a type II event secondary to his tachycardia dysrhythmias and his hypotension. His cardiac catheterization does not demonstrate any significant abnormality to warrant intervention. 7. Hyperlipidemia He will continue risk factor evaluation and care. 8. Hypertension He has a history of hypertension. Again there may be caution in adjusting his medicines to avoid hypotension. 9. Pulmonary hypertension He is been reported as having pulmonary hypertension in the past. He will need continued medical support. 10. Acute on chronic renal insufficiency His renal insufficiency appears to be improving as his creatinine level has decreased to less than 2. Overall, at the present time, the cardiovascular standpoint, the patient will continue to be monitored. His medications will be adjusted in attempt to assist in controlling his heart rate as well as his blood pressures. Thank you for allowing me to participate in the care of your patient. Please don't hesitate to call if any issues arise.
[2020-08-14] MEDS: Aspirin E.C. 81 MG Tablet PO (08:57)
[2020-08-14] MEDS: DULoxetine Hcl 30 MG Capsule PO (08:57)
[2020-08-14] MEDS: Digoxin 125 MCG Tablet PO (08:57)
[2020-08-14] MEDS: Furosemide 40 MG/4 ML Vial IV (08:58)
[2020-08-14] MEDS: Metoprolol Tartrate 100 MG Tablet PO ×2 (09:13→21:05)
--- NOTE | 2020-08-14 10:01 | PCM.PROGNOTE ---
<Odilia Mcmullen MANAGER INSURANCE - Last Filed: 08/14/20 10:21> Patient Problems: Active and Suspected Problems (Last Updated 08/13/20 @ 13:45 by Belle Gonzalez) Elevated troponin (Acute 08/09/20) Atrial fibrillation with rapid ventricular response (Acute 08/09/20) Acute on chronic systolic and diastolic heart failure, NYHA class 2 (Acute) Nausea and vomiting (Acute) Bradycardia (Acute) Hypotension (Acute) Subjective: Patient seen and examined. Reports increased shortness of breath earlier this morning which is now improved. Heart rate also noted to be elevated this morning which is also improving. Patient denies chest pain. - Physical Exam Vitals/I&O's: Vital Signs Temp Pulse Resp BP Pulse Ox 97.6 F L 124 H 18 130/62 H 97 08/14/20 09:08 08/14/20 09:13 08/14/20 09:08 08/14/20 09:13 08/14/20 09:08 Oxygen Delivery Method Room Air Weight: 151 lb 0.266 oz Body Mass Index (BMI) 22.3 Intake and Output for Last 24 Hours 08/12/20 08/13/20 08/14/20 23:59 23:59 23:59 Intake Total 800 / 815 563.67 / 608.67 105 / 105 Output Total 300 / 300 Balance 800 / 515 263.67 / 308.67 105 / 105 General: Alert, Oriented x3, Cooperative HEENT: Atraumatic, PERRLA, EOMI, Normocephalic Neck: Supple, No JVD, Negative Carotid Bruits Lungs: Clear to auscultation, Diminished Cardiovascular: - - Atrial fibrillation, rate controlled Abdomen: Bowel Sounds Present, Soft, Non Tender, Non-Distended Extremities: No clubbing, No cyanosis, No edema, Capillary Refill Less than 3 Seconds Skin: No rashes, No breakdown Musculoskeletal: No Tenderness to Palpation of Joints or Extremities Neurological: Cranial nerves II-XII grossly intact, Neuro grossly intact Psych/Mental Status: Flat Affect Laboratory Results 08/13/20 12:24: POC Glucose 113 H 08/13/20 16:03: POC Glucose 229 H 08/13/20 21:30: POC Glucose 165 H 08/14/20 05:50: Sodium 137, Potassium 4.4, Chloride 103, Carbon Dioxide 28.0, Anion Gap 6, BUN 36 H, Creatinine 1.64 H, Estim Creat Clear Calc 33.65, Est GFR (MDRD) Af Amer 52 L, Est GFR (MDRD) Non-Af 43 L, BUN/Creatinine Ratio 22.0 H, Glucose 164 H, Calcium 9.0 Current Medications Acetaminophen (Acetaminophen 325 Mg Tablet) 650 mg PO Q6H PRN PRN PRN Reason: Pain Score 1-3 /Temp>100.7 Aspirin (Aspirin E.C. 81 Mg Tablet) 81 mg PO DAILY@0800 [facility] Last Admin: 08/14/20 08:57 Dose: 81 mg Documented by: Cholecalciferol (Cholecalciferol (Vit D3) 1,000 Unit (25mcg)) 5,000 unit PO DAILY [facility] Last Admin: 08/14/20 08:58 Dose: 5,000 unit Documented by: Digoxin (Digoxin 125 Mcg Tablet) 125 mcg PO DAILY [facility] Last Admin: 08/14/20 08:57 Dose: 125 mcg Documented by: Duloxetine HCl (Duloxetine Hcl 30 Mg Capsule) 30 mg PO DAILY [facility] Last Admin: 08/14/20 08:57 Dose: 30 mg Documented by: Enoxaparin Sodium (Enoxaparin 60 Mg/0.6 Ml Syringe) 60 mg SC Q12@0600,1800 [facility] Furosemide (Furosemide 40 Mg/4 Ml Vial) 40 mg IV DAILY [facility] Last Admin: 08/14/20 08:58 Dose: 40 mg Documented by: Heparin Sodium (Beef Lung) (Heparin Lock 500 Unit/5 Ml In 10 Ml Syringe) 500 unit IV UD PRN PRN Reason: HEPARIN FLUSH Labetalol HCl (Labetalol (Prefilled) 20 Mg/4 Ml) 5 mg IV X1 PRN PRN Reason: SBP > 160 prior to sheath pull Stop: 08/15/20 11:53 Metoprolol Tartrate (Metoprolol Tartrate 100 Mg Tablet) 100 mg PO BID [facility] Last Admin: 08/14/20 09:13 Dose: 100 mg Documented by: Nutritional Formula (Lactose Free) (Glucerna Shake 120 Ml Liquid) 120 ml PO 4X/DAY [facility] Last Admin: 08/14/20 08:57 Dose: Not Given Documented by: Ondansetron HCl (Ondansetron 4 Mg/2 Ml Vial) 4 mg IV Q8H PRN PRN PRN Reason: Nausea Last Admin: 08/14/20 04:49 Dose: 4 mg Documented by: Oxycodone HCl (Oxycodone 5 Mg Tablet) 5 mg PO Q4H PRN PRN PRN Reason: Pain Score 4-10/10 Prochlorperazine Edisylate (Prochlorperazine 10 Mg/2 Ml Vial) 10 mg IV Q6H PRN PRN PRN Reason: Nausea/Vomiting Last Admin: 08/12/20 21:51 Dose: 10 mg Documented by: Sodium Chloride (0.9% Saline Lock 10 Ml Syringe) 10 - 40 ml IV UD PRN PRN Reason: SALINE FLUSH Last Admin: 08/14/20 07:15 Dose: 10 ml Documented by: Medical Necessity - Tobacco Use Smoking Status: Never smoker Assessment/Plan All Active Problems (Last Updated 08/13/20 @ 13:45 by Belle Gonzalez) Elevated troponin (Acute 08/09/20) Atrial fibrillation with rapid ventricular response (Acute 08/09/20) Acute on chronic systolic and diastolic heart failure, NYHA class 2 (Acute) Nausea and vomiting (Acute) Bradycardia (Acute) Hypotension (Acute) Amiodarone toxicity (Resolved) Acute respiratory failure with hypoxemia (Resolved) Dyspnea (Resolved) Dyspnea on exertion (Resolved) Shortness of breath (Resolved) 1. Atrial fibrillation with variable rate-heart rate noted to be in 20s during home visit. Has since been tachycardic during admission. Cardiology following. Patient underwent recent cardioversion 07/18/2020. Patient has been on amiodarone in the past and was unable to tolerate. He also became hypotensive with Cardizem during this admission. Repeat echocardiogram demonstrates an EF of 30%, moderately severe mitral valve insufficiency, RVSP estimated to be 54 mmHg. Given LV function is reduced from prior study, patient underwent heart cath 08/13/2020 which showed nonobstructive coronary arteries. Cardiomyopathy suspected secondary to tachycardia. Plan for Micra device placement, tentatively . This will allow for more aggressive medical treatment of tachycardia without concern for subsequent bradycardia. Eliquis on hold. Initiated on digoxin. Metoprolol increased to 100 mg twice daily. Heart rate currently improved. 2. Hypotension-improved following discontinuation of Cardizem drip. 3. Elevated troponin- demand ischemia related to #1. EKG without acute ischemia. Echocardiogram as noted above. Cardiology following. Heart cath with nonobstructive coronary arteries. 4. Chronic heart failure with reduced ejection fraction/Ischemic cardiomyopathy-BNP 2835. Chest x-ray unremarkable. Echocardiogram February 2020 demonstrated an EF 45%, stage III diastolic dysfunction, pulmonary artery systolic pressure 44 mmHg. Repeat echo as noted above. Patient underwent nuclear stress test 03/27/2020 which showed gated ejection fraction 29%, no evidence of ischemia, cardiomyopathy. Strict I&O. Daily weight. IV Lasix 40 mg daily. 5. CAD with history of CABG- Continue statin, metoprolol. Eliquis on hold. 6. History of CVA-statin, Eliquis. 7. Type 2 diabetes mellitus-Hemoglobin A1c 7.9%. Accu-Cheks with ACHS. Encouraged oral intake. Glimepiride on hold due to hypoglycemia. 8. Hypertension-stable, continue metoprolol. 9. Hyperlipidemia-continue statin. 10. Depression-have discussed initiating medication regimen and patient is not agreeable. He has not been agreeable to palliative care in the past as well. DVT prophylaxis-Eliquis on hold, therapeutic Lovenox This patient was seen by CHANTEL Kong under the supervision of Dr. Carbone. <Nancy Carbone - Last Filed: 08/14/20 18:11> - Physical Exam Vitals/I&O's: Vital Signs Temp Pulse Resp BP Pulse Ox 97.1 F L 113 H 18 102/83 H 98 08/14/20 14:10 08/14/20 15:00 08/14/20 14:10 08/14/20 14:10 08/14/20 14:10 Oxygen Delivery Method Room Air Weight: 68.5 kg Body Mass Index (BMI) 22.3 Intake and Output for Last 24 Hours 08/12/20 08/13/20 08/14/20 23:59 23:59 23:59 Intake Total 800 / 815 563.67 / 608.67 345 / 345 Output Total 300 / 300 Balance 800 / 515 263.67 / 308.67 345 / 345 Laboratory Results 08/13/20 21:30: POC Glucose 165 H 08/14/20 05:50: Sodium 137, Potassium 4.4, Chloride 103, Carbon Dioxide 28.0, Anion Gap 6, BUN 36 H, Creatinine 1.64 H, Estim Creat Clear Calc 33.65, Est GFR (MDRD) Af Amer 52 L, Est GFR (MDRD) Non-Af 43 L, BUN/Creatinine Ratio 22.0 H, Glucose 164 H, Calcium 9.0 08/14/20 08:47: POC Glucose 153 H 08/14/20 11:47: POC Glucose 244 H 08/14/20 16:38: POC Glucose 187 H Current Medications Acetaminophen (Acetaminophen 325 Mg Tablet) 650 mg PO Q6H PRN PRN PRN Reason: Pain Score 1-3 /Temp>100.7 Aspirin (Aspirin E.C. 81 Mg Tablet) 81 mg PO DAILY@0800 [facility] Last Admin: 08/14/20 08:57 Dose: 81 mg Documented by: Cholecalciferol (Cholecalciferol (Vit D3) 1,000 Unit (25mcg)) 5,000 unit PO DAILY [facility] Last Admin: 08/14/20 08:58 Dose: 5,000 unit Documented by: Digoxin (Digoxin 125 Mcg Tablet) 125 mcg PO DAILY [facility] Last Admin: 08/14/20 08:57 Dose: 125 mcg Documented by: Duloxetine HCl (Duloxetine Hcl 30 Mg Capsule) 30 mg PO DAILY [facility] Last Admin: 08/14/20 08:57 Dose: 30 mg Documented by: Enoxaparin Sodium (Enoxaparin 60 Mg/0.6 Ml Syringe) 60 mg SC Q12@0600,1800 [facility] Last Admin: 08/14/20 17:00 Dose: 60 mg Documented by: Furosemide (Furosemide 40 Mg/4 Ml Vial) 40 mg IV DAILY [facility] Last Admin: 08/14/20 08:58 Dose: 40 mg Documented by: Heparin Sodium (Beef Lung) (Heparin Lock 500 Unit/5 Ml In 10 Ml Syringe) 500 unit IV UD PRN PRN Reason: HEPARIN FLUSH Labetalol HCl (Labetalol (Prefilled) 20 Mg/4 Ml) 5 mg IV X1 PRN PRN Reason: SBP > 160 prior to sheath pull Stop: 08/15/20 11:53 Metoprolol Tartrate (Metoprolol Tartrate 100 Mg Tablet) 100 mg PO BID [facility] Last Admin: 08/14/20 09:13 Dose: 100 mg Documented by: Nutritional Formula (Lactose Free) (Glucerna Shake 120 Ml Liquid) 120 ml PO 4X/DAY [facility] Last Admin: 08/14/20 17:01 Dose: Not Given Documented by: Ondansetron HCl (Ondansetron 4 Mg/2 Ml Vial) 4 mg IV Q8H PRN PRN PRN Reason: Nausea Last Admin: 08/14/20 04:49 Dose: 4 mg Documented by: Oxycodone HCl (Oxycodone 5 Mg Tablet) 5 mg PO Q4H PRN PRN PRN Reason: Pain Score 4-10/10 Prochlorperazine Edisylate (Prochlorperazine 10 Mg/2 Ml Vial) 10 mg IV Q6H PRN PRN PRN Reason: Nausea/Vomiting Last Admin: 08/12/20 21:51 Dose: 10 mg Documented by: Sodium Chloride (0.9% Saline Lock 10 Ml Syringe) 10 - 40 ml IV UD PRN PRN Reason: SALINE FLUSH Last Admin: 08/14/20 07:15 Dose: 10 ml Documented by: Assessment/Plan This patient was seen in conjunction with Odilia Mcmullen MANAGER [employer]ANCE. I have independently interviewed and examined the patient and reviewed pertinent historical, laboratory, and other data. Please refer to her note for patient's presentation, findings, and recommendations. Patient was seen and examined. He appears tachycardic. He received 3 doses of IV metoprolol at shift change. Blood pressure is controlled. Planes of some shortness of breath. IV Lasix has been ordered. Vitals were reviewed -stable Physical Exam: Gen: Comfortable, not pale, not jaundiced, alert oriented x3 CVS:HS I +II, regular, no murmurs RESP: Diminished at lung bases GI: BS present and normal, nontender, no palpable organs EXT:No edema Labs reviewed: ASSESSMENT: 1. A. fib with RVR 2. Elevated troponin 3. Hypertension 4. Acute on chronic combined CHF 5. CAD status post CABG 6. History of CVA 7. Type II DM 8. Hypertension 9. Hyperlipidemia Meds reviewed Plan: Continue with increased dose of metoprolol 100 mg p.o. twice daily Continue on IV Lasix and CHF protocol We will continue to monitor patient; Micra pacemaker plan for Inpatient E&M: [id number] [facility] Hosp L2
[2020-08-14 11:01] LABS: Bedside Glucose 153 mg/dL (70-110)
[2020-08-14 11:51] LABS: Bedside Glucose 244 mg/dL (70-110)
[2020-08-14] MEDS: Glucerna Shake 120 ML LIQUID PO (15:11)
[2020-08-14 16:45] LABS: Bedside Glucose 187 mg/dL (70-110)
[2020-08-14] MEDS: Enoxaparin 60 MG/0.6 ML Syringe SC (17:00)
[2020-08-14 22:00] LABS: Bedside Glucose 200 mg/dL (70-110)
[2020-08-15] VITALS (11 sets, daily range): BP systolic 105–120; BP diastolic 59–79; PULSE 78–120; RESP 16–18; TEMP 36.2–36.3; O2SAT 95–96
[2020-08-15] MEDS: Enoxaparin 60 MG/0.6 ML Syringe SC ×2 (05:44→16:19)
[2020-08-15 06:45] LABS: Bedside Glucose 171 mg/dL (70-110)
[2020-08-15 07:24] LABS: Anion Gap 7 (5-15); BUN 45 mg/dL (7-18); BUN/Creat Ratio 22.8 RATIO (10-20); Calcium,Total 9.8 mg/dL (8.5-10.1); Chloride 105 mmol/L (98-107); Creatinine, Serum 1.97 mg/dL (0.70-1.30); EST Glomerular Filtration Rate 35 mL/min (>60); Est Glom Filt Rate - Afr Amer 42 mL/min (>60); Estimated Creatinine Clearance 28.01 ml/min; Glucose 171 mg/dL (74-106); Potassium 4.1 mmol/L (3.5-5.1); Sodium Level 136 mmol/L (136-145)
[2020-08-15] MEDS: Aspirin E.C. 81 MG Tablet PO (08:57)
[2020-08-15] MEDS: DULoxetine Hcl 30 MG Capsule PO (08:57)
[2020-08-15] MEDS: 0.9% Saline Lock 10 ML Syringe IV (08:59)
[2020-08-15] MEDS: Furosemide 40 MG/4 ML Vial IV (08:59)
[2020-08-15] MEDS: Digoxin 125 MCG Tablet PO (08:59)
[2020-08-15] MEDS: Metoprolol Tartrate 100 MG Tablet PO ×2 (08:59→22:01)
[2020-08-15 11:10] LABS: Bedside Glucose 217 mg/dL (70-110)
--- NOTE | 2020-08-15 12:53 | PCM.PN.CARD ---
Subjectve: Patient seen and evaluated Objective: Vital Signs Temp Pulse Resp BP Pulse Ox 97.4 F L 98 18 111/67 96 08/15/20 08:50 08/15/20 10:45 08/15/20 08:50 08/15/20 08:50 08/15/20 08:50 Oxygen Delivery Method Room Air Weight: 151 lb 0.266 oz Body Mass Index (BMI) 22.3 Intake and Output for Last 24 Hours 08/13/20 08/14/20 08/15/20 23:59 23:59 23:59 Intake Total 563.67 / 608.67 705 / 825 880 / 880 Output Total 300 / 300 0 / 0 Balance 263.67 / 308.67 705 / 825 880 / 880 General: Awake, Alert, Oriented x 3 HEENT: PERRL, EOMI, Sclera Non Icteric Neck: Supple, Good ROM, No Lymph Node Enlargement Lungs: Clear to auscultation Cardiovascular: Irregular Rhythm, Normal S1, Normal S2, No Murmurs, No Rubs, No Gallops Vascular: No Carotid Bruits, Normal Femoral Pulses, Normal Radial Pulses, Normal Dorsalis Pedal Pulse, Normal Posterior Tibial Pulses Abdomen: Bowel Sounds Present, Soft, Non Tender, No HSM, No Organomegaly Extremities: No Cyanosis, No Clubbing, No edema Neurological: No Focal Motor or Sensory Deficit 08/15/20 06:48: Sodium 136, Potassium 4.1, Chloride 105, Carbon Dioxide 24.0, Anion Gap 7, BUN 45 H, Creatinine 1.97 H, Est GFR (MDRD) Af Amer 42 L, Est GFR (MDRD) Non-Af 35 L, BUN/Creatinine Ratio 22.8 H, Glucose 171 H, Calcium 9.8 Rhythm: EKG: ECHO: Stress Test: Cardiac Cath: PCI: CT Surgery: Holter monitor: EPS: PPM: CXR: Chest CT Scan: Medical Necessity - Tobacco Use Smoking Status: Never smoker Assessment/Plan 1. Atrial fibrillation with rapid ventricular response The patient has had recurrent atrial fibrillation with rapid ventricular response. It appears that he has undergone medical therapy and recently in June of this year synchronized biphasic DC cardioversion. However he has continued atrial fibrillation with episodes of rapid ventricular response. He apparently has not tolerated other rate limiting medication without becoming bradycardic and he did not tolerate amiodarone. We will consider VVI pacing in the next 24 to 48 hours to assist with this. He more than likely will be a candidate for the Micra device. I have discussed this with him and he understands and agrees to proceed. We would likely perform this on . . 2. Bradycardia He was reported as being markedly bradycardic prior to his arrival at the hospital. He was then noted to be tachycardic. Again there has been reports that he has been difficult to control his tachydysrhythmia with rate limiting medication because of concerns of bradycardia dysrhythmias as well as hypotension. We will consider pacemaker support for the above. Will slowly increase his beta-kelsey. 3. Hypotension The patient did receive rate limiting medications. He became hypotensive. He received IV fluid resuscitation. His blood pressures have improved.His medications will have to be monitored as well as his volume status to avoid significant hypotension. His blood pressure appears to be better at this time. His beta-kelsey medication has been increased. 4. CAD status post CABG The patient has undergone revascularization therapy as noted above in [facility]. He underwent cardiac catheterization this morning which demonstrated patency of his bypass grafts. This therefore does not appear to be responsible for any major issues. 5. Ischemic mediated cardiomyopathy He does have what has been reported as an ischemic mediated cardiomyopathy. This appears to be contributed to by his tachycardia. My suspicion is that his depression and low ventricular ejection fraction is secondary to a tachycardia induced cardiomyopathy. After he has been treated with a pacemaker we will consider him for DC cardioversion. 6. Abnormal troponin I levels Again his troponin levels may be secondary to a type II event secondary to his tachycardia dysrhythmias and his hypotension. His cardiac catheterization does not demonstrate any significant abnormality to warrant intervention. 7. Hyperlipidemia He will continue risk factor evaluation and care. 8. Hypertension He has a history of hypertension. Again there may be caution in adjusting his medicines to avoid hypotension. 9. Pulmonary hypertension He is been reported as having pulmonary hypertension in the past. He will need continued medical support. 10. Acute on chronic renal insufficiency His renal insufficiency appears to be improving as his creatinine level has decreased to less than 2. Overall, at the present time, the cardiovascular standpoint, the patient will continue to be monitored. His medications will be adjusted in attempt to assist in controlling his heart rate as well as his blood pressures. Thank you for allowing me to participate in the care of your patient. Please don't hesitate to call if any issues arise.
--- NOTE | 2020-08-15 14:57 | PN_ITS ---
Patient Problems: Active and Suspected Problems (Last Updated 08/13/20 @ 13:45 by Belle Gonzalez) Elevated troponin (Acute 08/09/20) Atrial fibrillation with rapid ventricular response (Acute 08/09/20) Acute on chronic systolic and diastolic heart failure, NYHA class 2 (Acute) Nausea and vomiting (Acute) Bradycardia (Acute) Hypotension (Acute) Reason for Visit: Follow-up on A. fib with RVR/hypotension/elevated troponin Subjective: Patient was seen and examined. He feels tired as he did not sleep well last night. He states that his breathing is better. He denied chest pain, SOB, or dizziness. Objective: Physical exam: General: Alert, Oriented x3, Cooperative HEENT: Atraumatic, PERRLA, EOMI, Normocephalic Neck: Supple, No JVD, Negative Carotid Bruits Lungs: Clear to auscultation, Diminished Cardiovascular: - - Atrial fibrillation, rate controlled Abdomen: Bowel Sounds Present, Soft, Non Tender, Non-Distended Extremities: No clubbing, No cyanosis, No edema, Capillary Refill Less than 3 Seconds Skin: No rashes, No breakdown Musculoskeletal: No Tenderness to Palpation of Joints or Extremities Neurological: Cranial nerves II-XII grossly intact, Neuro grossly intact Psych/Mental Status: Flat Affect Vitals/I&O's: Vital Signs Temp Pulse Resp BP Pulse Ox 97.4 F L 98 18 111/67 96 08/15/20 08:50 08/15/20 10:45 08/15/20 08:50 08/15/20 08:50 08/15/20 08:50 Oxygen Delivery Method Room Air Weight: 68.5 kg Body Mass Index (BMI) 22.3 Intake and Output for Last 24 Hours 08/13/20 08/14/20 08/15/20 23:59 23:59 23:59 Intake Total 563.67 / 608.67 705 / 825 880 / 880 Output Total 300 / 300 0 / 0 Balance 263.67 / 308.67 705 / 825 880 / 880 Laboratory Results 08/14/20 16:38: POC Glucose 187 H 08/14/20 21:00: POC Glucose 200 H 08/15/20 06:43: POC Glucose 171 H 08/15/20 06:48: Sodium 136, Potassium 4.1, Chloride 105, Carbon Dioxide 24.0, Anion Gap 7, BUN 45 H, Creatinine 1.97 H, Estim Creat Clear Calc 28.01, Est GFR (MDRD) Af Amer 42 L, Est GFR (MDRD) Non-Af 35 L, BUN/Creatinine Ratio 22.8 H, Glucose 171 H, Calcium 9.8 08/15/20 11:06: POC Glucose 217 H Current Medications Acetaminophen (Acetaminophen 325 Mg Tablet) 650 mg PO Q6H PRN PRN PRN Reason: Pain Score 1-3 /Temp>100.7 Aspirin (Aspirin E.C. 81 Mg Tablet) 81 mg PO DAILY@0800 [facility] Last Admin: 08/15/20 08:57 Dose: 81 mg Documented by: Cholecalciferol (Cholecalciferol (Vit D3) 1,000 Unit (25mcg)) 5,000 unit PO DAILY [facility] Last Admin: 08/15/20 08:57 Dose: 5,000 unit Documented by: Digoxin (Digoxin 125 Mcg Tablet) 125 mcg PO DAILY [facility] Last Admin: 08/15/20 08:59 Dose: 125 mcg Documented by: Duloxetine HCl (Duloxetine Hcl 30 Mg Capsule) 30 mg PO DAILY [facility] Last Admin: 08/15/20 08:57 Dose: 30 mg Documented by: Enoxaparin Sodium (Enoxaparin 60 Mg/0.6 Ml Syringe) 60 mg SC Q12@0600,1800 [facility] Last Admin: 08/15/20 05:44 Dose: 60 mg Documented by: Furosemide (Furosemide 20 Mg Tablet) 60 mg PO DAILY [facility] Heparin Sodium (Beef Lung) (Heparin Lock 500 Unit/5 Ml In 10 Ml Syringe) 500 unit IV UD PRN PRN Reason: HEPARIN FLUSH Metoprolol Tartrate (Metoprolol Tartrate 100 Mg Tablet) 100 mg PO BID [facility] Last Admin: 08/15/20 08:59 Dose: 100 mg Documented by: Nutritional Formula (Lactose Free) (Glucerna Shake 120 Ml Liquid) 120 ml PO 4X/DAY [facility] Last Admin: 08/15/20 13:05 Dose: Not Given Documented by: Ondansetron HCl (Ondansetron 4 Mg/2 Ml Vial) 4 mg IV Q8H PRN PRN PRN Reason: Nausea Last Admin: 08/14/20 04:49 Dose: 4 mg Documented by: Oxycodone HCl (Oxycodone 5 Mg Tablet) 5 mg PO Q4H PRN PRN PRN Reason: Pain Score 4-1010 Prochlorperazine Edisylate (Prochlorperazine 10 Mg/2 Ml Vial) 10 mg IV Q6H PRN PRN PRN Reason: Nausea/Vomiting Last Admin: 08/12/20 21:51 Dose: 10 mg Documented by: Sodium Chloride (0.9% Saline Lock 10 Ml Syringe) 10 - 40 ml IV UD PRN PRN Reason: SALINE FLUSH Last Admin: 08/15/20 08:59 Dose: 10 ml Documented by: Medical Necessity - Tobacco Use Smoking Status: Never smoker Assessment/Plan All Active Problems (Last Updated 08/13/20 @ 13:45 by Belle Gonzalez) Elevated troponin (Acute 08/09/20) Atrial fibrillation with rapid ventricular response (Acute 08/09/20) Acute on chronic systolic and diastolic heart failure, NYHA class 2 (Acute) Nausea and vomiting (Acute) Bradycardia (Acute) Hypotension (Acute) Amiodarone toxicity (Resolved) Acute respiratory failure with hypoxemia (Resolved) Dyspnea (Resolved) Dyspnea on exertion (Resolved) Shortness of breath (Resolved) 1. A. fib with variable RVR/ tachy-ian syndrome, improved Patient was bradycardic at home but tachycardic in this admission. He was also hypotensive with cardizem in this admission. Status post recent cardioversion 07/18/2020. Patient was on amiodarone in the past and was unable to tolerate. Currently on metoprolol 100mg PO Bid, Lovenox BID Micra pacemaker planned for by cardiology 2. Acute on chronic CHF with reduced EF, EF 30%, drop from previous EF of 45% History of CABG. Status post cardiac cath which showed nonobstructive coronary arteries. On aspirin, statin, metoprolol 3. Hypotension, resolved with discontinuation of Cardizem drip. 4. Elevated troponin, likely demand ischemia related to #1. EKG without acute ischemia. Heart cath with nonobstructive coronary arteries. Cardiology is following 5. History of CVA, on aspirin, statin, off Eliquis, on Lovenox 6. Type 2 diabetes mellitus, HbA1c 7.9%, blood sugars are stable 7. Hypertension, stable, continue metoprolol. 8. Hyperlipidemia, on statin. 9. Depression, not agreeable to being started on meds 10. DVT prophylaxis - on therapeutic Lovenox Inpatient E&M: [id number] Subs Hosp L2
[2020-08-15 19:11] LABS: Bedside Glucose 161 mg/dL (70-110)
[2020-08-15 22:41] LABS: Bedside Glucose 140 mg/dL (70-110)
[2020-08-16] VITALS (17 sets, daily range): BP systolic 103–119; BP diastolic 59–69; PULSE 64–98; RESP 14–20; TEMP 36.1–36.4; O2SAT 94–99
[2020-08-16 04:01] LABS: Mucous, Urine 0 SEEN /hpf (<or=2+)
[2020-08-16 04:04] LABS: Color, Urine Yellow (Yellow); Glucose, Dipstick Normal (Normal); Ketone-Dipstick Negative (Negative); Nitrite-Dipstick Negative (Negative); Occult Blood-Urine 150 /ul (Negative); Protein-Dipstick Negative (Negative); Specific Gravity, Urine 1.015 (1.002-1.030); Urine Bilirubin Dipstick Negative (Negative); Urine Clarity Clear (Clear); Urine Urobilinogen Normal (Normal)
[2020-08-16 04:10] LABS: Bacteria 1+ /hpf (None Seen); Leukocyte Esterase-Dipstick 25 /ul (Negative); Red Blood Cells-Urine 0-5 SEEN /hpf (0-5); Squamous Epithelial Cells - UA 0 SEEN /hpf (0-5); White Blood Cells 0-5 SEEN /hpf (0-5)
[2020-08-16 05:50] LABS: M R Staph aureus DNA By PCR Negative (Negative); Probe Check PASS; Specimen Processing Control PASS
[2020-08-16 06:40] LABS: Bedside Glucose 105 mg/dL (70-110)
[2020-08-16 06:54] LABS: Absolute Lymphocyte Count 1.17 X10^3/uL (0.83-4.51); Absolute Neutrophil Count 3.9 X10^3/uL (2.0-7.7); Basophil# 0.04 X10^3/uL; Basophil% 0.7 % (0-1); Eosinophil# 0.15 X10^3/uL; Eosinophils% 2.6 % (0-5); Hematocrit 42.9 % (40-54); Hemoglobin 13.5 g/dL (13.0-16.5); Lymphocyte # 1.17 X10^3/ul (4.0); Lymphocyte % 19.9 % (19-41); Mean Corp Hgb Conc 31.5 g/dL (32-36); Mean Corpuscular Hgb 29.9 pg (27.0-32.0); Mean Corpuscular Volume 94.9 fL (80-94); Mean Platelet Vol. 11.9 fl (6.2-12.0); Monocyte# 0.58 X10^3/uL; Monocyte% 9.9 % (0-10); NRBC Flagged by Analyzer 0 % (0-5); Neutrophil # 3.91 X10^3/uL (2.7-7.7); Neutrophil % 66.6 % (47-70); Platelet Count 140 K/mm3 (150-450); RBC Distribution Width CV 13.9 % (11.6-14.6); RBC Distribution Width SD 44.2 fl (35.1-43.9); Red Blood Count 4.52 M/mm3 (4.6-6.2); White Blood Count 5.9 K/mm3 (4.4-11.0)
[2020-08-16 07:09] LABS: International Normalized Ratio 1.3; Prothrombin Time (Protime)PT. 15.7 SECONDS (11.7-14.9)
[2020-08-16 07:30] LABS: ALB/GLOB Ratio 0.8 RATIO (0.9-2.4); AST(SGOT) 34 U/L (15-37); Alanine Aminotransfer ALT/SGPT 57 U/L (16-61); Albumin, Serum 2.8 g/dL (3.2-5.0); Alkaline Phosphatase 123 U/L (45-117); Anion Gap 9 (5-15); BUN 40 mg/dL (7-18); BUN/Creat Ratio 24.2 RATIO (10-20); Chloride 105 mmol/L (98-107); Creatinine, Serum 1.65 mg/dL (0.70-1.30); EST Glomerular Filtration Rate 43 mL/min (>60); Est Glom Filt Rate - Afr Amer 52 mL/min (>60); Estimated Creatinine Clearance 33.44 ml/min; Globulin 3.4 g/dL (2.2-4.2); Glucose 95 mg/dL (74-106); Potassium 3.2 mmol/L (3.5-5.1); Protein, Total 6.2 g/dL (6.4-8.2); Sodium Level 140 mmol/L (136-145)
[2020-08-16 08:00] LABS: Magnesium 1.9 mg/dL (1.6-2.6)
[2020-08-16] MEDS: Digoxin 125 MCG Tablet PO (08:15)
[2020-08-16] MEDS: Metoprolol Tartrate 100 MG Tablet PO ×2 (08:15→22:06)
--- NOTE | 2020-08-16 09:21 | NURSING ---
This RN called report to betty Luo rn.
--- NOTE | 2020-08-16 11:15 | PCM.PN.HOSP ---
Patient Problems: Active and Suspected Problems (Last Updated 08/13/20 @ 13:45 by Belle Gonzalez) Elevated troponin (Acute 08/09/20) Atrial fibrillation with rapid ventricular response (Acute 08/09/20) Acute on chronic systolic and diastolic heart failure, NYHA class 2 (Acute) Nausea and vomiting (Acute) Bradycardia (Acute) Hypotension (Acute) Reason for Visit: Follow-up on A. fib with RVR/hypotension/elevated troponin Subjective: Patient was seen and examined. He denied any new complains. No acute events overnight. Rest of ROS is negative Objective: Physical exam: General: Alert, Oriented x3, Cooperative HEENT: Atraumatic, PERRLA, EOMI, Normocephalic Neck: Supple, No JVD, Negative Carotid Bruits Lungs: Clear to auscultation, Diminished Cardiovascular: - - Atrial fibrillation, rate controlled Abdomen: Bowel Sounds Present, Soft, Non Tender, Non-Distended Extremities: No clubbing, No cyanosis, No edema, Capillary Refill Less than 3 Seconds Skin: No rashes, No breakdown Musculoskeletal: No Tenderness to Palpation of Joints or Extremities Neurological: Cranial nerves II-XII grossly intact, Neuro grossly intact Psych/Mental Status: Flat Affect Vitals/I&O's: Vital Signs Temp Pulse Resp BP Pulse Ox 97.6 F L 68 20 H 106/65 94 08/16/20 08:25 08/16/20 10:44 08/16/20 08:25 08/16/20 08:25 08/16/20 08:25 Oxygen Delivery Method Room Air Weight: 68.5 kg Body Mass Index (BMI) 22.3 Intake and Output for Last 24 Hours 08/14/20 08/15/20 08/16/20 23:59 23:59 23:59 Intake Total 705 / 825 1280 / 1380 100 / 100 Output Total 0 / 0 150 / 150 Balance 705 / 825 1280 / 1380 -50 / -50 Laboratory Results 08/15/20 16:18: POC Glucose 161 H 08/15/20 22:37: POC Glucose 140 H 08/16/20 03:20: Urine Color Yellow, Urine Clarity Clear, Urine pH 6.0, Ur Specific [place] 1.015, Urine Protein Negative, Urine Glucose (UA) Normal, Urine Ketones Negative, Urine Occult Blood 150 H, Urine Nitrite Negative, Urine Bilirubin Negative, Urine Urobilinogen Normal, Ur Leukocyte Esterase 25 H, Urine RBC 0-5 SEEN, Urine WBC 0-5 SEEN, Ur Squamous Epith Cells 0 SEEN, Urine Bacteria 1+, Urine Mucus 0 SEEN 08/16/20 03:30: MRSA (PCR) Negative 08/16/20 06:35: POC Glucose 105 08/16/20 06:44: WBC 5.9, RBC 4.52 L, Hgb 13.5, Hct 42.9, MCV 94.9 H, MCH 29.9, MCHC 31.5 L, RDW Std Deviation 44.2 H, RDW Coeff of Shashank 13.9, Plt Count 140 L, MPV 11.9, Immature Gran % (Auto) 0.300, Neut % (Auto) 66.6, Lymph % (Auto) 19.9, [place] % (Auto) 9.9, Eos % (Auto) 2.6, Baso % (Auto) 0.7, Absolute Neuts (auto) 3.9, Absolute Lymphs (auto) 1.17, Nucleated RBC % 0 08/16/20 06:44: Sodium 140, Potassium 3.2 L, Chloride 105, Carbon Dioxide 26.0, Anion Gap 9, BUN 40 H, Creatinine 1.65 H, Estim Creat Clear Calc 33.44, Est GFR (MDRD) Af Amer 52 L, Est GFR (MDRD) Non-Af 43 L, BUN/Creatinine Ratio 24.2 H, Glucose 95, Calcium 9.0, Total Bilirubin 1.00, AST 34, ALT 57, Alkaline Phosphatase 123 H, Total Protein 6.2 L, Albumin 2.8 L, Globulin 3.4, Albumin/Globulin Ratio 0.8 L 08/16/20 06:44: PT 15.7 H, INR 1.3 08/16/20 06:44: Magnesium 1.9 Current Medications Acetaminophen (Acetaminophen 325 Mg Tablet) 650 mg PO Q6H PRN PRN PRN Reason: Pain Score 1-3 /Temp>100.7 Aspirin (Aspirin E.C. 81 Mg Tablet) 81 mg PO DAILY@0800 [facility] Last Admin: 08/16/20 08:01 Dose: Not Given Documented by: Cholecalciferol (Cholecalciferol (Vit D3) 1,000 Unit (25mcg)) 5,[address] [facility] Last Admin: 08/15/20 08:57 Dose: 5,000 unit Documented by: Digoxin (Digoxin 125 Mcg Tablet) [address] [facility] Last Admin: 08/16/20 08:15 Dose: 125 mcg Documented by: Duloxetine HCl (Duloxetine Hcl 30 Mg Capsule) [address] [facility] Last Admin: 08/15/20 08:57 Dose: 30 mg Documented by: Furosemide (Furosemide 20 Mg Tablet) [address] [facility] Heparin Sodium (Beef Lung) (Heparin Lock 500 Unit/5 Ml In 10 Ml Syringe) 500 unit IV UD PRN PRN Reason: HEPARIN FLUSH Sodium Chloride () 1,000 mls @ 0 mls/hr IV .Q0M [facility] Metoprolol Tartrate (Metoprolol Tartrate 100 Mg Tablet) [address] [facility] Last Admin: 08/16/20 08:15 Dose: 100 mg Documented by: Nutritional Formula (Lactose Free) (Glucerna Shake 120 Ml Liquid) 120 ml PO 4X/DAY [facility] Last Admin: 08/16/20 10:55 Dose: Not Given Documented by: Ondansetron HCl (Ondansetron 4 Mg/2 Ml Vial) 4 mg IV Q8H PRN PRN PRN Reason: Nausea Last Admin: 08/14/20 04:49 Dose: 4 mg Documented by: Oxycodone HCl (Oxycodone 5 Mg Tablet) 5 mg PO Q4H PRN PRN PRN Reason: Pain Score 4-10/10 Prochlorperazine Edisylate (Prochlorperazine 10 Mg/2 Ml Vial) 10 mg IV Q6H PRN PRN PRN Reason: Nausea/Vomiting Last Admin: 08/12/20 21:51 Dose: 10 mg Documented by: Sodium Chloride (0.9% Saline Lock 10 Ml Syringe) 10 - 40 ml IV UD PRN PRN Reason: SALINE FLUSH Last Admin: 08/15/20 08:59 Dose: 10 ml Documented by: STROKE Vital Signs/Narrative: Vital Signs Temp Pulse Resp BP Pulse Ox 08/16/20 10:44 68 08/16/20 08:25 97.6 F L 87 20 H 106/65 94 08/16/20 08:15 81 Medical Necessity - Tobacco Use Smoking Status: Never smoker Assessment/Plan All Active Problems (Last Updated 10/26/20 @ 13:45 by Belle Gonzalez) History of permanent cardiac pacemaker placement (Acute 08/16/20) Elevated troponin (Acute 08/09/20) Atrial fibrillation with rapid ventricular response (Acute 08/09/20) Acute on chronic systolic and diastolic heart failure, NYHA class 2 (Acute) Nausea and vomiting (Acute) Bradycardia (Acute) Hypotension (Acute) Amiodarone toxicity (Resolved) Acute respiratory failure with hypoxemia (Resolved) Dyspnea (Resolved) Dyspnea on exertion (Resolved) Shortness of breath (Resolved) 1. A. fib with variable RVR/ tachy-ian syndrome, s/p Micra pacemaker today Will continue to monitor Patient was bradycardic at home but tachycardic in this admission. He was also hypotensive with cardizem in this admission. Status post recent cardioversion 07/18/2020. Patient was on amiodarone in the past and was unable to tolerate. Continue on metoprolol 100mg PO Bid 2. Acute on chronic CHF with reduced EF, EF 30%, drop from previous EF of 45% History of CABG. Status post cardiac cath which showed nonobstructive coronary arteries. On aspirin, statin, metoprolol 3. Hypotension, resolved with discontinuation of Cardizem drip. 4. Elevated troponin, likely demand ischemia related to #1. EKG without acute ischemia. Heart cath with nonobstructive coronary arteries. Cardiology is following 5. History of CVA, on aspirin, statin, off Eliquis, on Lovenox 6. Type 2 diabetes mellitus, HbA1c 7.9%, blood sugars are stable 7. Hypertension, stable, continue metoprolol. 8. Hyperlipidemia, on statin. 9. Depression, not agreeable to being started on meds 10. DVT prophylaxis - off Lovenox Inpatient E&M: 20586 Subs Hosp L2
--- NOTE | 2020-08-16 12:22 | PRO.PCM_ITS ---
Procedure Report Date of Procedure: 08/16/20 Diagnosis: Patient with symptomatic bradycardia and tachybradycardia syndrome: [ ]. Planned procedure - insertion of VVI leadless pacemaker via right femoral vein (transcatheter pacing system) After informed consent and procedural antibiotics, the patient was brought to the [facility] catheterization laboratory and the right and left groins were prepped and draped in a sterile manner. Intermittent bolus of versed and fentanyl and 1% subcutaneous lidocaine were used for sedation and analgesia. Femoral vein access was achieved with Seldinger technique and confirmed by positioning of the guide wire into the superior vena cava under fluoroscopic guidance. Over the wire, the Karla dilator was used to dilate the femoral vein access up to 20Fr. The Karla dilator was removed. After thorough flushing of the sheath with heparinized saline, the 23Fr delivery sheath was inserted and advanced over the wire under fluoroscopic guidance to the floor of the right atrium. A bolus of intravenous heparin was administered. The delivery catheter and leadless pacemaker were then brought to the field and was flushed thoroughly with heparinized saline used to express all air distally. Saline flush also was used to flush the suture at the proximal end of the delivery sheath handle. Through the delivery sheath, the delivery catheter and leadless pacemaker were advanced through the sheath to the floor of the right atrium, under fluoroscopic guidance. The delivery catheter and pacemaker were advanced beyond the delivery sheath and with appropriate deflection and manipulation, the delivery catheter and pacemaker were advanced under fluoroscopic guidance (TINAJERO projection) across the tricuspid valve and into the right ventricle. In the SLOVENIAN projection, the delivery sheath was positioned in firm apposition with the right ventricular septal wall. Contrast injection confirmed firm contact with the right ventricular wall along the septum and excluded an apical position. There was a brief period of asystole during deployment which recovered. The delivery sheath was then flushed with heparinized saline. The leadless pacemaker was then deployed and the delivery sheath was pulled back to an adequate position to complete the tug test. Under a magnified view with cine imaging, the tug test was completed and confirmed no less than 2 of the 4 tines were in excellent contact with the myocardium and there was no dislodgement of the pacemaker. Testing was performed of the device and acceptable sensing, impedance and capture were confirmed. The testing of the pacemaker was repeated multiple times and confirmed to be adequate and stable. There were however 2 times which were noted to be moving without a tug. Consultation with the [employer] research department suggested that the above was not unusual. After the patient was watched for approximately 15 minutes and the numbers confirmed stability, the delivery sheath was flushed again with heparinized saline. One end of the suture was then cut and the suture was slowly withdrawn from the delivery sheath. Once the suture was removed, the pacemaker was tested again and confirmed appropriate and stable electrical parameters. There was no change in position of the device after suture was removed. The delivery catheter and sheath were then removed from the right femoral vein. Hemostasis was obtained with surgical purse string closure with use of 3 way stopcock and manual pressure. Protamine was then administered. Patient left the room in stable condition with the pacemaker programmed to appropriate parameters. There were no complications. Device product information, electrical data and serial number are provided in the chart.
--- NOTE | 2020-08-16 12:25 | PN.CARD_ITS ---
Subjectve: Patient seen and evaluated. Objective: Vital Signs Temp Pulse Resp BP Pulse Ox 97.6 F L 68 20 H 106/65 94 08/16/20 08:25 08/16/20 10:44 08/16/20 08:25 08/16/20 08:25 08/16/20 08:25 Oxygen Delivery Method Room Air Weight: 151 lb 0.266 oz Body Mass Index (BMI) 22.3 Intake and Output for Last 24 Hours 08/14/20 08/15/20 08/16/20 23:59 23:59 23:59 Intake Total 705 / 825 1280 / 1380 100 / 100 Output Total 0 / 0 150 / 150 Balance 705 / 825 1280 / 1380 -50 / -50 General: Awake, Alert, Oriented x 3 HEENT: PERRL, EOMI, Sclera Non Icteric Neck: Supple, Good ROM, No Lymph Node Enlargement Lungs: Clear to auscultation Cardiovascular: Irregular Rhythm, Normal S1, Normal S2, No Murmurs, No Rubs, No Gallops 08/16/20 03:20: Urine Color Yellow, Urine Clarity Clear, Urine pH 6.0, Ur Specific [place] 1.015, Urine Protein Negative, Urine Glucose (UA) Normal, Urine Ketones Negative, Urine Occult Blood 150 H, Urine Nitrite Negative, Urine Bilirubin Negative, Urine Urobilinogen Normal, Ur Leukocyte Esterase 25 H, Urine RBC 0-5 SEEN, Urine WBC 0-5 SEEN 08/16/20 06:44: WBC 5.9, RBC 4.52 L, Hgb 13.5, Hct 42.9, MCV 94.9 H, MCH 29.9, MCHC 31.5 L, Plt Count 140 L, MPV 11.9, Immature Gran % (Auto) 0.300, Neut % (Auto) 66.6, Lymph % (Auto) 19.9, [place] % (Auto) 9.9, Eos % (Auto) 2.6, Baso % (Auto) 0.7, Absolute Neuts (auto) 3.9, Nucleated RBC % 0 08/16/20 06:44: Sodium 140, Potassium 3.2 L, Chloride 105, Carbon Dioxide 26.0, Anion Gap 9, BUN 40 H, Creatinine 1.65 H, Est GFR (MDRD) Af Amer 52 L, Est GFR (MDRD) Non-Af 43 L, BUN/Creatinine Ratio 24.2 H, Glucose 95, Calcium 9.0, Total Bilirubin 1.00 08/16/20 06:44: PT 15.7 H, INR 1.3 08/16/20 06:44: Magnesium 1.9 Rhythm: EKG: ECHO: Stress Test: Cardiac Cath: PCI: CT Surgery: Holter monitor: EPS: PPM: CXR: Chest CT Scan: Medical Necessity - Tobacco Use Smoking Status: Never smoker Assessment/Plan 1. Atrial fibrillation with rapid ventricular response The patient has had recurrent atrial fibrillation with rapid ventricular response. It appears that he has undergone medical therapy and recently in June of this year synchronized biphasic DC cardioversion. However he has continued atrial fibrillation with episodes of rapid ventricular response. He apparently has not tolerated other rate limiting medication without becoming bradycardic and he did not tolerate amiodarone. * Patient underwent placement of a VVI Micra device today. 2. Bradycardia He was reported as being markedly bradycardic prior to his arrival at the hospital. He was then noted to be tachycardic. Again there has been reports that he has been difficult to control his tachydysrhythmia with rate limiting medication because of concerns of bradycardia dysrhythmias as well as hypotension. 3. Hypotension The patient did receive rate limiting medications. He became hypotensive. He received IV fluid resuscitation. His blood pressures have improved.His medications will have to be monitored as well as his volume status to avoid significant hypotension. His blood pressure appears to be better at this time. His beta-kelsey medication has been increased. 4. CAD status post CABG The patient has undergone revascularization therapy as noted above in [facility]. He underwent cardiac catheterization this morning which demonstrated patency of his bypass grafts. This therefore does not appear to be responsible for any major issues. 5. Ischemic mediated cardiomyopathy He does have what has been reported as an ischemic mediated cardiomyopathy. This appears to be contributed to by his tachycardia. My suspicion is that his depression and low ventricular ejection fraction is secondary to a tachycardia induced cardiomyopathy. After he has been treated with a pacemaker we will consider him for DC cardioversion. 6. Abnormal troponin I levels Again his troponin levels may be secondary to a type II event secondary to his tachycardia dysrhythmias and his hypotension. His cardiac catheterization does not demonstrate any significant abnormality to warrant intervention. 7. Hyperlipidemia He will continue risk factor evaluation and care. 8. Hypertension He has a history of hypertension. Again there may be caution in adjusting his medicines to avoid hypotension. 9. Pulmonary hypertension He is been reported as having pulmonary hypertension in the past. He will need continued medical support. 10. Acute on chronic renal insufficiency His renal insufficiency appears to be improving as his creatinine level has decreased to less than 2. Overall, at the present time, the cardiovascular standpoint, the patient will continue to be monitored. His medications will be adjusted in attempt to assist in controlling his heart rate as well as his blood pressures. Thank you for allowing me to participate in the care of your patient. Please don't hesitate to call if any issues arise.
--- NOTE | 2020-08-16 12:36 | ECHOL_ITS ---
Reason For Study: CHF Procedure This was a limited 2D transthoracic echocardiogram. Exam performed at pt bedside in brine room laborer. Left Ventricle Normal left ventricle. The estimated ejection fraction is 30 %. Severe global left ventricular systolic dysfunction. There is severe global hypokinesis of the left ventricle. Right Ventricle Normal RV size. Mild global right ventricular systolic dysfunction. Pericardium/Pleural No pericardial effusion. Small left pleural effusion. MMode/2D Measurements & Calculations LVIDd: 4.2 cm IVSd: 1.6 cm LAV(MOD-sp4): 34.7 ml LVIDs: 3.7 cm LVPWd: 1.5 cm RVDd: 3.4 cm FS: 12.3 % LA A4 area: 14.9 cm2 RA A4 area: 15.3 cm2 Interpretation Summary Normal left ventricle. The estimated ejection fraction is 30 %. Severe global left ventricular systolic dysfunction. No pericardial effusion. Small left pleural effusion. Ordering Physician: Jason Lemus Referring Physician: REGINO DARBY Performed By: Marta Paris, RDCS, RVT
[2020-08-16] MEDS: Furosemide 20 MG Tablet 60 MG PO (14:21)
[2020-08-16] MEDS: DULoxetine Hcl 30 MG Capsule PO (14:22)
[2020-08-16 14:26] LABS: Bedside Glucose 82 mg/dL (70-110)
--- NOTE | 2020-08-16 14:36 | NURSING ---
This RN updated the pt's , Luana via phone.
[2020-08-16 16:30] LABS: Bedside Glucose 99 mg/dL (70-110)
[2020-08-16] MEDS: Glucerna Shake 120 ML LIQUID PO (17:07)
--- NOTE | 2020-08-16 18:45 | PN_ITS ---
Patient Problems: Active and Suspected Problems (Last Updated 08/13/20 @ 13:45 by Belle Gonzalez) Elevated troponin (Acute 08/09/20) Atrial fibrillation with rapid ventricular response (Acute 08/09/20) Acute on chronic systolic and diastolic heart failure, NYHA class 2 (Acute) Nausea and vomiting (Acute) Bradycardia (Acute) Hypotension (Acute) Vitals/I&O's: Vital Signs Temp Pulse Resp BP Pulse Ox 97.4 F L 64 16 112/69 97 08/16/20 18:00 08/16/20 18:00 08/16/20 18:00 08/16/20 18:00 08/16/20 18:00 Oxygen Delivery Method Room Air Weight: 68.5 kg Body Mass Index (BMI) 22.3 Intake and Output for Last 24 Hours 08/14/20 08/15/20 08/16/20 23:59 23:59 23:59 Intake Total 705 / 825 1280 / 1380 550 / 550 Output Total 0 / 0 150 / 150 Balance 705 / 825 1280 / 1380 400 / 400 Laboratory Results 08/15/20 16:18: POC Glucose 161 H 08/15/20 22:37: POC Glucose 140 H 08/16/20 03:20: Urine Color Yellow, Urine Clarity Clear, Urine pH 6.0, Ur Specific [place] 1.015, Urine Protein Negative, Urine Glucose (UA) Normal, Urine Ketones Negative, Urine Occult Blood 150 H, Urine Nitrite Negative, Urine Bilirubin Negative, Urine Urobilinogen Normal, Ur Leukocyte Esterase 25 H, Urine RBC 0-5 SEEN, Urine WBC 0-5 SEEN, Ur Squamous Epith Cells 0 SEEN, Urine Bacteria 1+, Urine Mucus 0 SEEN 08/16/20 03:30: MRSA (PCR) Negative 08/16/20 06:35: POC Glucose 105 08/16/20 06:44: WBC 5.9, RBC 4.52 L, Hgb 13.5, Hct 42.9, MCV 94.9 H, MCH 29.9, MCHC 31.5 L, RDW Std Deviation 44.2 H, RDW Coeff of Shashank 13.9, Plt Count 140 L, MPV 11.9, Immature Gran % (Auto) 0.300, Neut % (Auto) 66.6, Lymph % (Auto) 19.9, [place] % (Auto) 9.9, Eos % (Auto) 2.6, Baso % (Auto) 0.7, Absolute Neuts (auto) 3.9, Absolute Lymphs (auto) 1.17, Nucleated RBC % 0 08/16/20 06:44: Sodium 140, Potassium 3.2 L, Chloride 105, Carbon Dioxide 26.0, Anion Gap 9, BUN 40 H, Creatinine 1.65 H, Estim Creat Clear Calc 33.44, Est GFR (MDRD) Af Amer 52 L, Est GFR (MDRD) Non-Af 43 L, BUN/Creatinine Ratio 24.2 H, Glucose 95, Calcium 9.0, Total Bilirubin 1.00, AST 34, ALT 57, Alkaline Phosphatase 123 H, Total Protein 6.2 L, Albumin 2.8 L, Globulin 3.4, Albumin/Globulin Ratio 0.8 L 08/16/20 06:44: PT 15.7 H, INR 1.3 08/16/20 06:44: Magnesium 1.9 08/16/20 14:19: POC Glucose 82 08/16/20 16:18: POC Glucose 99 Current Medications Acetaminophen (Acetaminophen 325 Mg Tablet) 650 mg PO Q6H PRN PRN PRN Reason: Pain Score 1-3 /Temp>100.7 Aspirin (Aspirin E.C. 81 Mg Tablet) 81 mg PO DAILY@0800 [facility] Last Admin: 08/16/20 08:01 Dose: Not Given Documented by: Cholecalciferol (Cholecalciferol (Vit D3) 1,000 Unit (25mcg)) 5,000 unit PO DAILY [facility] Last Admin: 08/16/20 14:22 Dose: 5,000 unit Documented by: Digoxin (Digoxin 125 Mcg Tablet) 125 mcg PO DAILY [facility] Last Admin: 08/16/20 08:15 Dose: 125 mcg Documented by: Duloxetine HCl (Duloxetine Hcl 30 Mg Capsule) 30 mg PO DAILY [facility] Last Admin: 08/16/20 14:22 Dose: 30 mg Documented by: Furosemide (Furosemide 20 Mg Tablet) 60 mg PO DAILY [facility] Last Admin: 08/16/20 14:21 Dose: 60 mg Documented by: Heparin Sodium (Beef Lung) (Heparin Lock 500 Unit/5 Ml In 10 Ml Syringe) 500 unit IV UD PRN PRN Reason: HEPARIN FLUSH Sodium Chloride () 1,000 mls @ 0 mls/hr IV .Q0M [facility] Labetalol HCl (Labetalol (Prefilled) 20 Mg/4 Ml) 5 mg IV X1 PRN PRN Reason: SBP > 160 prior to sheath pull Metoprolol Tartrate (Metoprolol Tartrate 100 Mg Tablet) 100 mg PO BID [facility] Last Admin: 08/16/20 08:15 Dose: 100 mg Documented by: Nutritional Formula (Lactose Free) (Glucerna Shake 120 Ml Liquid) 120 ml PO 4X/DAY [facility] Last Admin: 08/16/20 17:07 Dose: 120 ml Documented by: Ondansetron HCl (Ondansetron 4 Mg/2 Ml Vial) 4 mg IV Q8H PRN PRN PRN Reason: Nausea Last Admin: 08/14/20 04:49 Dose: 4 mg Documented by: Oxycodone HCl (Oxycodone 5 Mg Tablet) 5 mg PO Q4H PRN PRN PRN Reason: Pain Score 4-10/10 Prochlorperazine Edisylate (Prochlorperazine 10 Mg/2 Ml Vial) 10 mg IV Q6H PRN PRN PRN Reason: Nausea/Vomiting Last Admin: 08/12/20 21:51 Dose: 10 mg Documented by: Sodium Chloride (0.9% Saline Lock 10 Ml Syringe) 10 - 40 ml IV UD PRN PRN Reason: SALINE FLUSH Last Admin: 08/15/20 08:59 Dose: 10 ml Documented by: STROKE Vital Signs/Narrative: Vital Signs Temp Pulse Resp BP Pulse Ox 08/16/20 18:00 97.4 F L 64 16 112/69 97 08/16/20 17:00 97.6 F L 75 14 103/62 94 08/16/20 16:00 97.2 F L 78 14 117/68 99 08/16/20 15:00 97.0 F L 64 16 113/59 L 99 08/16/20 14:59 78 Medical Necessity - Tobacco Use Smoking Status: Never smoker Assessment/Plan All Active Problems (Last Updated 08/13/20 @ 13:45 by Belle Gonzalez) History of permanent cardiac pacemaker placement (Acute 08/16/20) Elevated troponin (Acute 08/09/20) Atrial fibrillation with rapid ventricular response (Acute 08/09/20) Acute on chronic systolic and diastolic heart failure, NYHA class 2 (Acute) Nausea and vomiting (Acute) Bradycardia (Acute) Hypotension (Acute) Amiodarone toxicity (Resolved) Acute respiratory failure with hypoxemia (Resolved) Dyspnea (Resolved) Dyspnea on exertion (Resolved) Shortness of breath (Resolved) 1. A. fib with variable RVR/ tachy-ian syndrome, improved Patient was bradycardic at home but tachycardic in this admission. He was also hypotensive with cardizem in this admission. Status post recent cardioversion 07/18/2020. Patient was on amiodarone in the past and was unable to tolerate. Currently on metoprolol 100mg PO Bid, Lovenox BID Micra pacemaker planned for by cardiology 2. Acute on chronic CHF with reduced EF, EF 30%, drop from previous EF of 45% History of CABG. Status post cardiac cath which showed nonobstructive coronary arteries. On aspirin, statin, metoprolol 3. Hypotension, resolved with discontinuation of Cardizem drip. 4. Elevated troponin, likely demand ischemia related to #1. EKG without acute ischemia. Heart cath with nonobstructive coronary arteries. Cardiology is following 5. History of CVA, on aspirin, statin, off Eliquis, on Lovenox 6. Type 2 diabetes mellitus, HbA1c 7.9%, blood sugars are stable 7. Hypertension, stable, continue metoprolol. 8. Hyperlipidemia, on statin. 9. Depression, not agreeable to being started on meds 10. DVT prophylaxis - on therapeutic Lovenox Inpatient E&M: [id number] [facility] Hosp L2
[2020-08-16 22:56] LABS: Bedside Glucose 100 mg/dL (70-110)
[2020-08-17] VITALS (7 sets, daily range): BP systolic 113–119; BP diastolic 65–72; PULSE 70–87; RESP 16–18; TEMP 36.3–36.4; O2SAT 95–97
--- NOTE | 2020-08-17 06:43 | PCM.PN.CARD ---
Subjectve: Patient seen and evaluated. Appears to be doing well this morning. Objective: Vital Signs Temp Pulse Resp BP Pulse Ox 97.3 F L 70 18 113/72 95 08/17/20 04:00 08/17/20 04:00 08/17/20 04:00 08/17/20 04:00 08/17/20 04:00 Oxygen Delivery Method Room Air Weight: 151 lb 0.266 oz Body Mass Index (BMI) 22.3 Intake and Output for Last 24 Hours 08/15/20 08/16/20 08/17/20 23:59 23:59 23:59 Intake Total 1280 / 1380 550 / 550 Output Total 0 / 0 850 / 850 Balance 1280 / 1380 -300 / -300 General: Awake, Alert, Oriented x 3 HEENT: PERRL, EOMI, Sclera Non Icteric Neck: Supple, Good ROM, No Lymph Node Enlargement Lungs: Clear to auscultation Cardiovascular: Irregular Rhythm, Normal S1, Normal S2, No Murmurs, No Rubs, No Gallops Vascular: No Carotid Bruits, Normal Femoral Pulses, Normal Radial Pulses, Normal Dorsalis Pedal Pulse, Normal Posterior Tibial Pulses Abdomen: Bowel Sounds Present, Soft, Non Tender, No HSM, No Organomegaly Extremities: No Cyanosis, No Clubbing, No edema Neurological: No Focal Motor or Sensory Deficit 08/16/20 06:44: WBC 5.9, RBC 4.52 L, Hgb 13.5, Hct 42.9, MCV 94.9 H, MCH 29.9, MCHC 31.5 L, Plt Count 140 L, MPV 11.9, Immature Gran % (Auto) 0.300, Neut % (Auto) 66.6, Lymph % (Auto) 19.9, [place] % (Auto) 9.9, Eos % (Auto) 2.6, Baso % (Auto) 0.7, Absolute Neuts (auto) 3.9, Nucleated RBC % 0 08/16/20 06:44: Sodium 140, Potassium 3.2 L, Chloride 105, Carbon Dioxide 26.0, Anion Gap 9, BUN 40 H, Creatinine 1.65 H, Est GFR (MDRD) Af Amer 52 L, Est GFR (MDRD) Non-Af 43 L, BUN/Creatinine Ratio 24.2 H, Glucose 95, Calcium 9.0, Total Bilirubin 1.00 08/16/20 06:44: PT 15.7 H, INR 1.3 08/16/20 06:44: Magnesium 1.9 Rhythm: EKG: ECHO: Stress Test: Cardiac Cath: PCI: CT Surgery: Holter monitor: EPS: PPM: CXR: Chest CT Scan: Medical Necessity - Tobacco Use Smoking Status: Never smoker Assessment/Plan 1. Atrial fibrillation with rapid ventricular response The patient has had recurrent atrial fibrillation with rapid ventricular response. It appears that he has undergone medical therapy and recently in June of this year synchronized biphasic DC cardioversion. However he has continued atrial fibrillation with episodes of rapid ventricular response. He apparently has not tolerated other rate limiting medication without becoming bradycardic and he did not tolerate amiodarone. Patient underwent placement of a VVI Micra device yesterday without any apparent complications. This will be interrogated today. If it is noted to be normal then patient can be continued on current medications and arrangements made for follow-up as an outpatient.. 2. Bradycardia He was reported as being markedly bradycardic prior to his arrival at the hospital. He was then noted to be tachycardic. Again there has been reports that he has been difficult to control his tachydysrhythmia with rate limiting medication because of concerns of bradycardia dysrhythmias as well as hypotension. 3. Hypotension The patient did receive rate limiting medications. He became hypotensive. He received IV fluid resuscitation. His blood pressures have improved.His medications will have to be monitored as well as his volume status to avoid significant hypotension. His blood pressure appears to be better at this time. His beta-kelsey medication has been increased. 4. CAD status post CABG The patient has undergone revascularization therapy as noted above in [facility]. He underwent cardiac catheterization this morning which demonstrated patency of his bypass grafts. This therefore does not appear to be responsible for any major issues. 5. Ischemic mediated cardiomyopathy He does have what has been reported as an ischemic mediated cardiomyopathy. This appears to be contributed to by his tachycardia. My suspicion is that his depression and low ventricular ejection fraction is secondary to a tachycardia induced cardiomyopathy. After he has been treated with a pacemaker we will consider him for DC cardioversion. 6. Abnormal troponin I levels Again his troponin levels may be secondary to a type II event secondary to his tachycardia dysrhythmias and his hypotension. His cardiac catheterization does not demonstrate any significant abnormality to warrant intervention. 7. Hyperlipidemia He will continue risk factor evaluation and care. 8. Hypertension He has a history of hypertension. Again there may be caution in adjusting his medicines to avoid hypotension. Thank you for allowing me to participate in the care of your patient. Please don't hesitate to call if any issues arise.
[2020-08-17 06:51] LABS: Bedside Glucose 89 mg/dL (70-110)
[2020-08-17 07:15] LABS: Absolute Lymphocyte Count 0.87 X10^3/uL (0.83-4.51); Absolute Neutrophil Count 4.9 X10^3/uL (2.0-7.7); Basophil# 0.02 X10^3/uL; Basophil% 0.3 % (0-1); Eosinophil# 0.21 X10^3/uL; Eosinophils% 3.1 % (0-5); Hematocrit 42.6 % (40-54); Hemoglobin 13.4 g/dL (13.0-16.5); Lymphocyte # 0.87 X10^3/ul (4.0); Lymphocyte % 12.8 % (19-41); Mean Corp Hgb Conc 31.5 g/dL (32-36); Mean Corpuscular Hgb 29.6 pg (27.0-32.0); Mean Platelet Vol. 11.9 fl (6.2-12.0); Monocyte# 0.75 X10^3/uL; NRBC Flagged by Analyzer 0 % (0-5); Neutrophil # 4.94 X10^3/uL (2.7-7.7); Neutrophil % 72.4 % (47-70); Platelet Count 145 K/mm3 (150-450); RBC Distribution Width SD 45.1 fl (35.1-43.9); Red Blood Count 4.53 M/mm3 (4.6-6.2); White Blood Count 6.8 K/mm3 (4.4-11.0)
[2020-08-17 07:22] LABS: ALB/GLOB Ratio 0.8 RATIO (0.9-2.4); AST(SGOT) 21 U/L (15-37); Alanine Aminotransfer ALT/SGPT 38 U/L (16-61); Albumin, Serum 2.6 g/dL (3.2-5.0); Alkaline Phosphatase 121 U/L (45-117); Anion Gap 7 (5-15); BUN 36 mg/dL (7-18); BUN/Creat Ratio 22.8 RATIO (10-20); Chloride 108 mmol/L (98-107); Creatinine, Serum 1.58 mg/dL (0.70-1.30); EST Glomerular Filtration Rate 45 mL/min (>60); Est Glom Filt Rate - Afr Amer 54 mL/min (>60); Estimated Creatinine Clearance 34.92 ml/min; Globulin 3.2 g/dL (2.2-4.2); Glucose 82 mg/dL (74-106); Potassium 3.6 mmol/L (3.5-5.1); Protein, Total 5.8 g/dL (6.4-8.2); Sodium Level 143 mmol/L (136-145)
--- NOTE | 2020-08-17 09:11 | DCINST_ITS ---
Discharge Diet: No Restrictions Discharge Activity: May Not Drive Call your doctor if your incision/area has: Continuous Slow Oozing, Sudden Increased Bleeding, Increased Pain/ Swelling, Increased Redness, Foul Smelling Discharge, Swelling at the incision site Call your doctor if you observe: Fever of 101 or Higher, Shortness of breath, Dizziness, Fainting spells, Swelling in the ankles, Chest pain, Prolonged hiccoughing, Increased palpitations (irregular heartbeat) Additional Dressing/Incision Instructions:: When dressing is removed, wash and dry incision. Keep covered with a light bandage if it is rubbing against your clothing. Do not cover the incision with an airtight bandage. Change the bandage daily. Do not remove steri strips. The strips will fall off on their own. Additional Instructions: Signs and Symptoms to Report to Your Doctor at Once - call your doctor's office or Doctor's Registry ([phone]) Call 911 or go to the nearest Emergency Department if you feel you need urgent care. *Infection (fever, increased redness or swelling at the incision site, drainage from the incision increased pain at the pacemaker site) *Shortness of breath *Dizziness *Fainting spells *Swelling in the ankles *Chest pain *Prolonged hiccoughing *Increased palpitaitons (irregular heartbeat) Medications: Take your pain medication as directed. Refer to your discharge instruction sheet for a list of medications you are to take. Allergies/Adverse Reactions: Allergies spironolactone Allergy (Verified 08/09/20 10:49) severe weakness lisinopril Adverse Reaction (Mild, Verified 08/09/20 10:49) Dry cough amiodarone Adverse Reaction (Verified 08/09/20 10:49) toxicity Medications to take at Discharge cholecalciferol (vitamin D3) 125 mcg (5,000 unit) capsule 5,000 unit PO DAILY 02/16/19 Acetaminophen [Tylenol] 500 mg PO DAILY PRN PRN 07/17/20 Apixaban [Eliquis] 2.5 mg PO BID 07/17/20 Aspirin E.C. [Ecotrin] 81 mg PO DAILY@0800 07/17/20 Glimepiride [Amaryl] 2 mg PO DAILY 07/17/20 Duloxetine Hcl [Cymbalta] 30 mg PO DAILY 08/09/20 Furosemide [Lasix] 60 mg PO BID 08/09/20 Metoprolol Tartrate 50 mg PO BID 08/09/20 Potassium Chloride [Klor-Con 10] 10 meq PO BID 08/09/20 Primary Care Physician: Abdoulaye Brock MD [Primary Care Provider] - Test Results: Test results from this visit will be discussed in further detail at your follow- up appointment, if applicable. When: [facility] Aug Proposed Discharge Date: 08/17/20
--- NOTE | 2020-08-17 09:22 | PCM.DC ---
- Discharge Diagnoses Current Active Problems: Current Active and Chronic Problems (Last Updated 08/13/20 @ 13:45 by Belle Gonzalez) Elevated troponin (Acute 08/09/20) Atrial fibrillation with rapid ventricular response (Acute 08/09/20) Acute on chronic systolic and diastolic heart failure, NYHA class 2 (Acute) Acute kidney injury superimposed on chronic kidney disease (Chronic) Nausea and vomiting (Acute) Bradycardia (Acute) Hypotension (Acute) Atherosclerosis of coronary artery of [place] heart with angina pectoris (Chronic) History of non-ST elevation myocardial infarction (NSTEMI) (Chronic 05/2017) 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) CABG x 4: COLES-LAD, SVG-D1, SVG to proximal end of SVG to diagonal going to OM 2, and SVG-RPDA 10/30/16 Ischemic cardiomyopathy (Chronic) Secondary pulmonary arterial hypertension (Chronic) Paroxysmal atrial fibrillation (Chronic) Left bundle branch block (LBBB) (Chronic) Essential (primary) hypertension (Chronic) Hyperlipidemia (Chronic) Reason(s) for Visit for Discharge Instructions: Generalised weakness You will use the following diet at home:: Calorie/Carbohydrate Controlled (specify 1200, 1400, etc) - 1800, Cardiac Your food should be the consistency of: Regular Your liquids should be the consistency of: Regular/Thin Discharge Activity: Return to Normal Activity, May Not Drive Call your doctor if your incision/area has: Continuous Slow Oozing, Sudden Increased Bleeding, Increased Pain/ Swelling, Increased Redness, Foul Smelling Discharge, Swelling at the incision site Call your doctor if you observe: Fever of 101 or Higher, Shortness of breath, Dizziness, Fainting spells, Swelling in the ankles, Chest pain, Prolonged hiccoughing, Increased palpitations (irregular heartbeat) Additional Dressing/Incision Instructions:: When dressing is removed, wash and dry incision. Keep covered with a light bandage if it is rubbing against your clothing. Do not cover the incision with an airtight bandage. Change the bandage daily. Do not remove steri strips. The strips will fall off on their own. Additional Instructions: Take note of changes in your medication. Continue to take all your medications as prescribed. Weigh yourself every day. Let your physician know if you gain more than 4 pounds of weight every day. Continue to be active. Follow-up with your primary care and cardiology as scheduled. You would need repeat blood testing of your kidney function within a week. Allergies/Adverse Reactions: Allergies spironolactone Allergy (Verified 08/09/20 10:49) severe weakness lisinopril Adverse Reaction (Mild, Verified 08/09/20 10:49) Dry cough amiodarone Adverse Reaction (Verified 08/09/20 10:49) toxicity Medications to take at Discharge cholecalciferol (vitamin D3) 125 mcg (5,000 unit) capsule 5,000 unit PO DAILY 02/16/19 Apixaban [Eliquis] 2.5 mg PO BID 07/17/20 Aspirin E.C. [Ecotrin] 81 mg PO DAILY@0800 07/17/20 Glimepiride [Amaryl] 2 mg PO DAILY 07/17/20 Duloxetine Hcl [Cymbalta] 30 mg PO DAILY 08/09/20 Potassium Chloride [Klor-Con 10] 10 meq PO BID 08/09/20 Acetaminophen [Tylenol Tablet] 650 mg PO Q6H PRN PRN tablet 08/17/20 Digoxin [Lanoxin] 125 mcg PO DAILY 30 Days #30 tab 08/17/20 Furosemide [Lasix] 60 mg PO DAILY 30 Days #90 tab 08/17/20 Glucerna Shake 120 ml PO 4X/DAY 30 Days #120 liquid 08/17/20 Metoprolol Tartrate [Lopressor (beta kelsey)] 100 mg PO BID 30 Days #60 tab 08/17/20 The following prescriptions were given: Glucerna Shake 120 ml PO 4X/DAY 30 Days #120 liquid Transmission Status: Pending to [id number] Digoxin [Lanoxin] 125 mcg PO DAILY 30 Days #30 tab Transmission Status: Pending to [facility] Furosemide [Lasix] 60 mg PO DAILY 30 Days #90 tab Transmission Status: Pending to [facility] Metoprolol Tartrate [Lopressor (beta kelsey)] 100 mg PO BID 30 Days #60 tab Transmission Status: Pending to [id number] Primary Care Physician: Abdoulaye Brock MD [Primary Care Provider] - Please follow up with your Primary Care Physician in: within 2 weeks Test Results: Test results from this visit will be discussed in further detail at your follow-up appointment, if applicable. When: [facility] Aug Proposed Discharge Date: 08/17/20
--- NOTE | 2020-08-17 09:24 | DS.PCM_ITS ---
Discharge Date and Diagnosis - Problem List Patient Problems: Active and Suspected Problems (Last Updated 08/13/20 @ 13:45 by Belle Gonzalez) Elevated troponin (Acute 08/09/20) Atrial fibrillation with rapid ventricular response (Acute 08/09/20) Acute on chronic systolic and diastolic heart failure, NYHA class 2 (Acute) Nausea and vomiting (Acute) Bradycardia (Acute) Hypotension (Acute) Date of Admission: 08/09/20 Date of Discharge: 08/17/20 - Primary Discharge Diagnosis Acute Problems: Active Problems (Last Updated 08/13/20 @ 13:45 by Belle Gonzalez) A. fib with RVR Tachy?ian syndrome Acute on chronic systolic CHF Hypotension Elevated troponin Hypokalemia CATE on CKD stage III, present on admission - Secondary Discharge Diagnosis Chronic Problems: Chronic Problems (Last Updated 08/13/20 @ 13:45 by Belle Gonzalez) Acute kidney injury superimposed on chronic kidney disease (Chronic) Atherosclerosis of coronary artery of [place] heart with angina pectoris (Chronic) History of non-ST elevation myocardial infarction (NSTEMI) (Chronic 05/2017) 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) CABG x 4: COLES-LAD, SVG-D1, SVG to proximal end of SVG to diagonal going to OM 2, and SVG-RPDA 10/30/16 Ischemic cardiomyopathy (Chronic) Secondary pulmonary arterial hypertension (Chronic) Paroxysmal atrial fibrillation (Chronic) Left bundle branch block (LBBB) (Chronic) Essential (primary) hypertension (Chronic) Hyperlipidemia (Chronic) Hospital Course and Treatment Imaging Results: Clinical Impression(s) from Imaging Studies Chest X-Ray 08/09/20 10:55 IMPRESSION: The lungs are clear. Electronically Signed: Manny Valle, at 11:15 EDT , Service support , Cardiology Operations: None Procedures: None Summary of Care Provided: The patient is a 80 year old M with multiple co-morbidities occluding chronic atrial fibrillation who was recently discharged with acute on chronic heart failure and bradycardia. He underwent cardioversion on 07/18/20. Patient presented on 08/09/20 with weight gain and generalized weakness. She was found to have A. fib with RVR. She was given Cardizem bolus and started on Cardizem drip. Later on his blood pressure dropped to the 70s. Cardizem drip was discontinued. He was resuscitated with IV fluids. Cardiology was consulted. His troponins were elevated. Patient had acute kidney injury on admission, it improved throughout his hospital stay. Patient had elevated troponin and subsequently had 2D echo that showed EF of 30%, decreased from previous EF of 45%. He underwent cardiac cath on 08/13/20 showed nonobstructive coronaries. His A. fib with RVR was managed on digoxin and later on metoprolol which was uptitrated. He was also managed with Lasix for acute on chronic systolic CHF. He underwent Micra pacemaker placement for tachybradycardia syndrome on 08/16/20. Post-procedure, patient was stable, heart rate was controlled. Patient to follow-up with his primary care doctor as well as cardiology as scheduled. He will be follow-up with home health as well as the community care network. Patient Problems: Active and Suspected Problems (Last Updated 08/13/20 @ 13:45 by Belle Gonzalez) Elevated troponin (Acute 08/09/20) Atrial fibrillation with rapid ventricular response (Acute 08/09/20) Acute on chronic systolic and diastolic heart failure, NYHA class 2 (Acute) Nausea and vomiting (Acute) Bradycardia (Acute) Hypotension (Acute) Subjective: On the day of discharge, patient was seen and examined. Denied any new complains. He had Micar pacemaker placed with no complications Objective: Physical exam: General: Alert, Oriented x3, Cooperative HEENT: Atraumatic, PERRLA, EOMI, Normocephalic Neck: Supple, No JVD, Negative Carotid Bruits Lungs: Clear to auscultation, Diminished Cardiovascular: - - Atrial fibrillation, rate controlled Abdomen: Bowel Sounds Present, Soft, Non Tender, Non-Distended Extremities: No clubbing, No cyanosis, No edema, Capillary Refill Less than 3 Seconds Skin: No rashes, No breakdown Musculoskeletal: No Tenderness to Palpation of Joints or Extremities Neurological: Cranial nerves II-XII grossly intact, Neuro grossly intact Psych/Mental Status: Flat Affect - Physical Exam Vitals/I&O's: Vital Signs Temp Pulse Resp BP Pulse Ox 97.3 F L 77 18 113/72 95 08/17/20 04:00 08/17/20 08:12 08/17/20 04:00 08/17/20 04:00 08/17/20 04:00 Oxygen Delivery Method Room Air Weight: 68.5 kg Body Mass Index (BMI) 22.3 Intake and Output for Last 24 Hours 08/15/20 08/16/20 08/17/20 23:59 23:59 23:59 Intake Total 1280 / 1380 550 / 550 Output Total 0 / 0 850 / 850 350 / 350 Balance 1280 / 1380 -300 / -300 -350 / -350 Laboratory Results 08/16/20 14:19: POC Glucose 82 08/16/20 16:18: POC Glucose 99 08/16/20 21:57: POC Glucose 100 08/17/20 06:41: WBC 6.8, RBC 4.53 L, Hgb 13.4, Hct 42.6, MCV 94.0, MCH 29.6, MCHC 31.5 L, RDW Std Deviation 45.1 H, RDW Coeff of Shashank 14.0, Plt Count 145 L, MPV 11.9, Immature Gran % (Auto) 0.400, Neut % (Auto) 72.4 H, Lymph % (Auto) 12.8 L, [place] % (Auto) 11.0 H, Eos % (Auto) 3.1, Baso % (Auto) 0.3, Absolute Neuts (auto) 4.9, Absolute Lymphs (auto) 0.87, Nucleated RBC % 0 08/17/20 06:41: Sodium 143, Potassium 3.6, Chloride 108 H, Carbon Dioxide 28.0, Anion Gap 7, BUN 36 H, Creatinine 1.58 H, Estim Creat Clear Calc 34.92, Est GFR (MDRD) Af Amer 54 L, Est GFR (MDRD) Non-Af 45 L, BUN/Creatinine Ratio 22.8 H, Glucose 82, Calcium 9.0, Total Bilirubin 1.00, AST 21, ALT 38, Alkaline Phosphatase 121 H, Total Protein 5.8 L, Albumin 2.6 L, Globulin 3.2, Albumin/Globulin Ratio 0.8 L 08/17/20 06:44: POC Glucose 89 Current Medications Acetaminophen (Acetaminophen 325 Mg Tablet) 650 mg PO Q6H PRN PRN PRN Reason: Pain Score 1-3 /Temp>100.7 Aspirin (Aspirin E.C. 81 Mg Tablet) 81 mg PO DAILY@0800 [facility] Last Admin: 08/16/20 08:01 Dose: Not Given Documented by: Cholecalciferol (Cholecalciferol (Vit D3) 1,000 Unit (25mcg)) 5,000 unit PO DAILY [facility] Last Admin: 08/16/20 14:22 Dose: 5,000 unit Documented by: Digoxin (Digoxin 125 Mcg Tablet) 125 mcg PO DAILY [facility] Last Admin: 08/16/20 08:15 Dose: 125 mcg Documented by: Duloxetine HCl (Duloxetine Hcl 30 Mg Capsule) 30 mg PO DAILY [facility] Last Admin: 08/16/20 14:22 Dose: 30 mg Documented by: Furosemide (Furosemide 20 Mg Tablet) 60 mg PO DAILY [facility] Last Admin: 08/16/20 14:21 Dose: 60 mg Documented by: Heparin Sodium (Beef Lung) (Heparin Lock 500 Unit/5 Ml In 10 Ml Syringe) 500 unit IV UD PRN PRN Reason: HEPARIN FLUSH Sodium Chloride () 1,000 mls @ 0 mls/hr IV .Q0M [facility] Labetalol HCl (Labetalol (Prefilled) 20 Mg/4 Ml) 5 mg IV X1 PRN PRN Reason: SBP > 160 prior to sheath pull Metoprolol Tartrate (Metoprolol Tartrate 100 Mg Tablet) 100 mg PO BID [facility] Last Admin: 08/16/20 22:06 Dose: 100 mg Documented by: Nutritional Formula (Lactose Free) (Glucerna Shake 120 Ml Liquid) 120 ml PO 4X/DAY [facility] Last Admin: 08/16/20 22:04 Dose: Not Given Documented by: Ondansetron HCl (Ondansetron 4 Mg/2 Ml Vial) 4 mg IV Q8H PRN PRN PRN Reason: Nausea Last Admin: 08/14/20 04:49 Dose: 4 mg Documented by: Oxycodone HCl (Oxycodone 5 Mg Tablet) 5 mg PO Q4H PRN PRN PRN Reason: Pain Score 4-10/10 Prochlorperazine Edisylate (Prochlorperazine 10 Mg/2 Ml Vial) 10 mg IV Q6H PRN PRN PRN Reason: Nausea/Vomiting Last Admin: 08/12/20 21:51 Dose: 10 mg Documented by: Sodium Chloride (0.9% Saline Lock 10 Ml Syringe) 10 - 40 ml IV UD PRN PRN Reason: SALINE FLUSH Last Admin: 08/15/20 08:59 Dose: 10 ml Documented by: Discharge Diet: Low fat/ Low Cholesterol, 2000 mg Sodium Diet Discharge Activity: Return to Normal Activity, May Not Drive Call your doctor if your incision/area has: Continuous Slow Oozing, Sudden Increased Bleeding, Increased Pain/ Swelling, Increased Redness, Foul Smelling Discharge, Swelling at the incision site Call your doctor if you observe: Fever of 101 or Higher, Shortness of breath, Dizziness, Fainting spells, Swelling in the ankles, Chest pain, Prolonged h iccoughing, Increased palpitations (irregular heartbeat) Additional Dressing/Incision Instructions:: When dressing is removed, wash and dry incision. Keep covered with a light bandage if it is rubbing against your clothing. Do not cover the incision with an airtight bandage. Change the bandage daily. Do not remove steri strips. The strips will fall off on their own. Home Medications: Medications to take at Discharge cholecalciferol (vitamin D3) 125 mcg (5,000 unit) capsule 5,000 unit PO DAILY 02/16/19 Apixaban [Eliquis] 2.5 mg PO BID 07/17/20 Aspirin E.C. [Ecotrin] 81 mg PO DAILY@0800 07/17/20 Glimepiride [Amaryl] 2 mg PO DAILY 07/17/20 Duloxetine Hcl [Cymbalta] 30 mg PO DAILY 08/09/20 Potassium Chloride [Klor-Con 10] 10 meq PO BID 08/09/20 Acetaminophen [Tylenol Tablet] 650 mg PO Q6H PRN PRN tab 08/17/20 Digoxin [Lanoxin] 125 mcg PO DAILY 30 Days #30 tab 08/17/20 Furosemide [Lasix] 60 mg PO DAILY 30 Days #90 tab 08/17/20 Glucerna Shake 120 ml PO 4X/DAY 30 Days #120 liquid 08/17/20 Metoprolol Tartrate [Lopressor (beta kelsey)] 100 mg PO BID 30 Days #60 tab 08/17/20 Following Prescriptions Were Given to Patient: Glucerna Shake 120 ml PO 4X/DAY 30 Days #120 liquid Transmission Status: Received by [facility] Digoxin [Lanoxin] 125 mcg PO DAILY 30 Days #30 tab Transmission Status: Received by [facility] Furosemide [Lasix] 60 mg PO DAILY 30 Days #90 tab Transmission Status: Received by [facility] Metoprolol Tartrate [Lopressor (beta kelsey)] 100 mg PO BID 30 Days #60 tab Transmission Status: Received by [facility] Primary Care Physician: Abdoulaye Brock MD [Primary Care Provider] - Please follow up with your Primary Care Physician in: within 2 weeks When: [facility] Aug @10;30 Additional Instructions: Signs and Symptoms to Report to Your Doctor at Once - call your doctor's office or Doctor's Registry ([phone]) Call 911 or go to the nearest Emergency Department if you feel you need urgent care. *Infection (fever, increased redness or swelling at the incision site, drainage from the incision increased pain at the pacemaker site) *Shortness of breath *Dizziness *Fainting spells *Swelling in the ankles *Chest pain *Prolonged hiccoughing *Increased palpitaitons (irregular heartbeat) Medications: Take your pain medication as directed. Refer to your discharge instruction sheet for a list of medications you are to take. Disposition: Home with Home Health Minutes spent on discharge:: 45 Patient Condition:: Stable Medical Necessity - Tobacco Use Smoking Status: Never smoker Tobacco Use: Non-smoker Meaningful Use Info Meaningful Use Diagnoses (Choose all that apply): None applicable Inpatient E&M: 16245 Disch Hosp
[2020-08-17] MEDS: Metoprolol Tartrate 100 MG Tablet PO (09:44)
[2020-08-17] MEDS: Digoxin 125 MCG Tablet PO (09:45)
[2020-08-17] MEDS: Aspirin E.C. 81 MG Tablet PO (09:45)
[2020-08-17] MEDS: Furosemide 20 MG Tablet 60 MG PO (09:46)
[2020-08-17] MEDS: DULoxetine Hcl 30 MG Capsule PO (09:46)
--- NOTE | 2020-08-17 10:27 | CASEMGMT ---
This RN CM to room to discuss discharge plan with pt at this time. Pt is sitting up in chair in no distress at this time. Pt states plan is to return home with resumption of HHC and CCN. Pt states no further concerns/needs at this time. Call to Lashell at [facility] to notify of discharge today and BECCA order in [facility]. Call to Cristobal at [facility] CCN at this time to notify of pacer placement and discharge today, voices understanding. Pt voices no further questions/concerns/needs at this time. SStaten GERMÁN RANKIN
--- NOTE | 2020-08-20 16:27 | CASEMGMT ---
GERMÁN RANKIN Discharge Follow-up Phone Call: MARIA LUISA: Rishi Strata: 4 Call Date: 08/20/2020 Discharge Date: 08/17/2020 Time of Call: 1620 Admitting Diagnosis: Afib RVR, A/C Sys CHF, bradycardia, hypotension Discharge follow-up call placed to patient. Pt's answered and stated pt was sitting at the kitchen table. Pt states he has been feeling weak since returning home. States he is using his walker to ambulate around the home but that I am not moving too much. Pt states he has been able to get to and from the bathroom. Pt states he has been taking his medications as prescribed and denies any questions. Pt states the home health nurse was out yesterday and will be returning on Thursday. Denies any concerns with his pacemaker incision site. States his has been able to help some with meals and that I'm not starving. Pt aware of pacemaker check on Thursday. Pt denied any questions or concerns at this time. Hernando Shi RN CM
== END 2020-08-17 11:11 | disposition home health service (06) | DRG 228 ==
LOC: ED 11:33 → PCU 13:29
PROVIDERS: Internal Medicine Cardiovascular Disease; Nurse Practitioner Family; Admitting Provider Internal Medicine; Emergency Provider Emergency Medicine; PCP Family Medicine; Visit Provider Internal Medicine
DX: I48.0 Paroxysmal atrial fibrillation (principal); I50.43 Acute on chronic combined systolic (congestive) and diastolic (congestive) heart failure; I13.0 Hypertensive heart and chronic kidney disease with heart failure and stage 1 through stage 4 chronic kidney disease, or unspecified chronic kidney disease; N17.9 Acute kidney failure, unspecified; I24.8 Other forms of acute ischemic heart disease; N18.30 Chronic kidney disease, stage 3 unspecified; E78.5 Hyperlipidemia, unspecified; E87.6 Hypokalemia; E11.22 Type 2 diabetes mellitus with diabetic chronic kidney disease; I25.5 Ischemic cardiomyopathy; E11.649 Type 2 diabetes mellitus with hypoglycemia without coma; I25.119 Atherosclerotic heart disease of native coronary artery with unspecified angina pectoris; I25.2 Old myocardial infarction; I27.21 Secondary pulmonary arterial hypertension; Z79.01 Long term (current) use of anticoagulants; Z95.1 Presence of aortocoronary bypass graft; I95.9 Hypotension, unspecified; Z86.73 Personal history of transient ischemic attack (TIA), and cerebral infarction without residual deficits; E86.0 Dehydration; I49.5 Sick sinus syndrome; F32.9 Major depressive disorder, single episode, unspecified
CPT/HCPCS: 33274; 36415; 71045; 80048; 80053; 81001; 82962; 83036; 83735; 83880; 84484; 85025; 85027; 85610; 87641; 93005; 93306; 93308; 93455; 97110; 97116; 97162; 97165; 97530; 99152; 99153; 99285; C1760; C1894; J7030; J7040; Q9967; A4216; C1769; J1940; J2310; J2405

== ENCOUNTER 2020-08-21 10:25 | Emergency (ER) | payer MEDICARE, SELFPAY ==
[2020-08-09 16:52] VITALS: BMI 22.3
[2020-08-21 10:26] VITALS: BP 146/94; PULSE 91; RESP 20; TEMP 36.4; O2SAT 99; BMI 22.8
--- NOTE | 2020-08-21 10:40 | EKG12_ITS ---
Test Reason : Blood Pressure : / mmHG Vent. Rate : 082 BPM Atrial Rate : 056 BPM P-R Int : 000 ms QRS Dur : 142 ms QT Int : 398 ms P-R-T Axes : 000 003 195 degrees QTc Int : 464 ms Atrial fibrillation Left bundle branch block Abnormal ECG Confirmed by DOMINIQUE MONTOYA, STARLA ([id number]), photography editor KONG PAGAN ([id number]) on 08/23/2020 11:29:51 AM Referred By: FILIBERTO Confirmed By:STARLA FOX MD
--- NOTE | 2020-08-21 10:41 | ED.DCSUM_ITS ---
History of Present Illness Chief Complaint: Edema Informant: Patient, Family Onset: Days Context: Gradual Onset Current Severity: Moderate Maximum Severity: Moderate Narrative: Patient presents with generalized weakness and a 10 pound weight gain over the last 3 or 4 days. Patient states he was just discharged in the hospital late last week after having a pacemaker placed. He has a history of paroxysmal A. fib and is on Eliquis as well as digoxin. Patient does have a history of congestive heart failure and states that his Lasix was recently decreased from 60 mg twice daily to 60 mg daily. He does note increased swelling in his lower extremities. - Past Medical History (1) Acute on chronic systolic and diastolic heart failure, NYHA class 2 Status: Chronic (2) History of permanent cardiac pacemaker placement Status: Chronic Comment: VVI 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 (3) Essential (primary) hypertension Status: Chronic (4) H/O coronary artery bypass surgery Status: Chronic Comment: CABG x 4: COLES-LAD, SVG-D1, SVG to proximal end of SVG to diagonal going to OM 2, and SVG-RPDA 10/30/16 (5) History of non-ST elevation myocardial infarction (NSTEMI) Status: Chronic (6) Hyperlipidemia Status: Chronic (7) Ischemic cardiomyopathy Status: Chronic (8) Left bundle branch block (LBBB) Status: Chronic (9) Paroxysmal atrial fibrillation Status: Chronic (10) Secondary pulmonary arterial hypertension Status: Chronic Past Medical History - Allergies and Home Meds Allergies/Adverse Reactions: Allergies spironolactone Allergy (Verified 08/21/20 10:28) severe weakness lisinopril Adverse Reaction (Mild, Verified 08/21/20 10:28) Dry cough amiodarone Adverse Reaction (Verified 08/21/20 10:28) toxicity Primary Care Physician: Abdoulaye Brock MD [Primary Care Provider] - Prior records reviewed: Yes Surgical History: coronary bypass surgery Smoking Status: Never smoker - Family History Paternal Family History: Family History (Last Reviewed 05/01/20 @ 14:[address] Jason Lemus MD) Sister Diabetes Sister Colon cancer Diabetes CVA (cerebral vascular accident) Sister Diabetes Brother Heart disease Diabetes Family History: Reports: - - Denies known paternal medical history including cardiac history. Maternal Family History: Family History (Last Reviewed 07/14/20 @ 14:[address] Jason Lemus MD) Sister Diabetes Sister Colon cancer Diabetes CVA (cerebral vascular accident) Sister Diabetes Brother Heart disease Diabetes Family History: Reports: - - Denies known maternal medical history including cardiac history. Review of Systems General: Denies: Chills, Fever Eyes: Denies: Visual changes - bilaterally ENT: Denies: Bilateral ear pain Cardiovascular: Denies: Chest pain Respiratory: Reports: Dyspnea. Denies: Cough Gastrointestinal: Denies: Abdominal pain, Vomiting, Diarrhea Musculoskeletal: Reports: Swelling Skin: Denies: Rash Neurological: Reports: Weakness - Lateralized weakness. Denies: Headache Endocrine: Denies: Polyuria, Polydipsia Allergy: Denies: Uticaria Physical Exam Vital Signs/Narrative: Vital Signs Temp Pulse Resp BP Pulse Ox 08/21/20 10:26 97.5 F L 91 20 H 146/94 H 99 Inital Vital Signs reviewed: Yes General: Well nourished, Well developed Head: Normocephalic ENT: Moist mucous membranes Neck: Supple Cardiovascular: Regular rate, Regular rhythm Respiratory: No distress, Diminished - Diminished bilateral bases Abdomen: Soft, Nontender Extremities: Edema - 3+ edema lower extremities, left greater than right. Skin: Normal color Neurological: Alert, Oriented x3 Psychological: Normal affect Diagnostic/Tx/Re-eval Impressions Chest X-Ray 08/21/20 11:30 IMPRESSION: Findings suggestive of CHF with superimposed left basilar atelectasis and/or infiltrate with a small left pleural effusion. Electronically Signed: Manny Tori, at 12:06 EST , Service support , 08/21/20 11:30 Chest 1 View (Portable) [RAD] Stat Laboratory Results 08/21/20 08/21/20 08/21/20 11:15 11:15 11:15 WBC 10.5 RBC 5.13 Hgb 15.3 Hct 48.1 MCV 93.8 MCH 29.8 MCHC 31.8 L RDW Std Deviation 47.2 H RDW Coeff of Shashank 14.6 Plt Count 189 MPV 11.8 Immature Gran % (Auto) 0.200 Neut % (Auto) 74.9 H Lymph % (Auto) 16.6 L Rowan % (Auto) 7.8 Eos % (Auto) 0.0 Baso % (Auto) 0.5 Absolute Neuts (auto) 7.9 H Absolute Lymphs (auto) 1.74 Nucleated RBC % 0 Sodium 136 Potassium 4.4 Chloride 98 Carbon Dioxide 32.0 Anion Gap 6 BUN 39 H Creatinine 1.60 H Estim Creat Clear Calc 35.40 Est GFR (MDRD) Af Amer 53 L Est GFR (MDRD) Non-Af 44 L BUN/Creatinine Ratio 24.4 H Glucose 181 H Calcium 9.6 Troponin I 0.411 H B-Natriuretic Peptide 2803.9 H Digoxin 08/21/20 11:15 WBC RBC Hgb Hct MCV MCH MCHC RDW Std Deviation RDW Coeff of Shashank Plt Count MPV Immature Gran % (Auto) Neut % (Auto) Lymph % (Auto) Rowan % (Auto) Eos % (Auto) Baso % (Auto) Absolute Neuts (auto) Absolute Lymphs (auto) Nucleated RBC % Sodium Potassium Chloride Carbon Dioxide Anion Gap BUN Creatinine Estim Creat Clear Calc Est GFR (MDRD) Af Amer Est GFR (MDRD) Non-Af BUN/Creatinine Ratio Glucose Calcium Troponin I B-Natriuretic Peptide Digoxin 1.39 - EKG Initial EKG Interpretation: Atrial Fibrillation - A. fib at 80 with left bundle branch block. - Medical Decision Making Patient was observed on color television console monitor. Heart rate has been well controlled. He does have new left-sided pleural effusion when compared to his prior chest x- ray. Patient was discussed with Dr. Lemus who placed his pacemaker last week. Patient will be given IV Lasix. I discussed hospital admission for him especially in light of his generalized weakness. At this time he prefers to go home. ED Disposition - Plan for ED Patient: Disposition: Home or Assisted Living Diagnosis: CHF (congestive heart failure) Instructions: ED CHF General Referrals: Jason Lemus MD [STAFF PHYSICIAN] - 1 Week Additional Instructions: As discussed, increase her Lasix to 60 mg twice a day. Follow-up later this week for labs as discussed. Please feel free to return for worsening symptoms or any concerns.
[2020-08-21 11:29] LABS: Absolute Lymphocyte Count 1.74 X10^3/uL (0.83-4.51); Absolute Neutrophil Count 7.9 X10^3/uL (2.0-7.7); Basophil# 0.05 X10^3/uL; Basophil% 0.5 % (0-1); Hematocrit 48.1 % (40-54); Hemoglobin 15.3 g/dL (13.0-16.5); Lymphocyte # 1.74 X10^3/ul (4.0); Lymphocyte % 16.6 % (19-41); Mean Corp Hgb Conc 31.8 g/dL (32-36); Mean Corpuscular Hgb 29.8 pg (27.0-32.0); Mean Corpuscular Volume 93.8 fL (80-94); Mean Platelet Vol. 11.8 fl (6.2-12.0); Monocyte# 0.82 X10^3/uL; Monocyte% 7.8 % (0-10); NRBC Flagged by Analyzer 0 % (0-5); Neutrophil # 7.87 X10^3/uL (2.7-7.7); Neutrophil % 74.9 % (47-70); Platelet Count 189 K/mm3 (150-450); RBC Distribution Width CV 14.6 % (11.6-14.6); RBC Distribution Width SD 47.2 fl (35.1-43.9); Red Blood Count 5.13 M/mm3 (4.6-6.2); White Blood Count 10.5 K/mm3 (4.4-11.0)
--- NOTE | 2020-08-21 11:30 | RAD_ITS ---
STUDY: X-RAY CHEST REASON FOR EXAM: Male, 80 years old. SOB AND SWELLING IN LEGS. PATIENT STATES HAD A PACEMAKER PUT IN LAST WEEK. TECHNIQUE: Single AP portable view of the chest. COMPARISON: Comparison is made with prior study dated 08/09/2020. FINDINGS: A loop recorder device is seen overlying the lower mid cardiac border. EKG electrodes are seen. There now is evidence of vascular congestion and mild degree of CHF with small left pleural effusion and left basilar infiltration and/or atelectasis. Sternal cerclage wires and vascular clips are present from a prior sternotomy and coronary artery bypass graft procedure (CABG). Normal mediastinum and heaven. Normal visualized pulmonary arteries. There is atherosclerotic calcification of the aortic arch with tortuosity. Normal visualized thoracic spine. Normal visualized ribs, clavicles, and shoulders. There is no demonstrated abnormality of the visualized soft tissue structures of the upper abdomen. RAD/Chest 1 View (Portable) IMPRESSION: Findings suggestive of CHF with superimposed left basilar atelectasis and/or infiltrate with a small left pleural effusion. Electronically Signed: Manny Valle, at 12:06 EST , Service support ,
[2020-08-21 11:40] LABS: Anion Gap 6 (5-15); BUN 39 mg/dL (7-18); BUN/Creat Ratio 24.4 RATIO (10-20); Calcium,Total 9.6 mg/dL (8.5-10.1); Chloride 98 mmol/L (98-107); EST Glomerular Filtration Rate 44 mL/min (>60); Est Glom Filt Rate - Afr Amer 53 mL/min (>60); Glucose 181 mg/dL (74-106); Potassium 4.4 mmol/L (3.5-5.1); Sodium Level 136 mmol/L (136-145)
[2020-08-21 11:44] LABS: BNP,B-Type NATRIURETIC PEPTIDE 2803.9 pg/mL (0-100)
[2020-08-21 12:00] LABS: Digoxin Level 1.39 ng/mL (0.80-2.00)
[2020-08-21] MEDS: Furosemide 40 MG/4 ML Vial IV (12:15)
[2020-08-21 13:24] VITALS: BP 117/80; PULSE 80; RESP 16; O2SAT 97
== END 2020-08-21 13:25 | disposition home or self-care (01) ==
PROVIDERS: Emergency Provider Emergency Medicine; PCP Family Medicine
DX: I11.0 Hypertensive heart disease with heart failure (principal); I50.9 Heart failure, unspecified; I48.0 Paroxysmal atrial fibrillation; Z95.1 Presence of aortocoronary bypass graft; Z79.01 Long term (current) use of anticoagulants; Z79.82 Long term (current) use of aspirin
CPT/HCPCS: 71045; 80048; 80162; 83880; 84484; 85025; 93005; 96374; 99285; A4216; J1940

== ENCOUNTER 2020-08-26 16:51 | Inpatient (IN) | payer MEDICARE, SELFPAY ==
[2020-08-23 12:21] VITALS: BMI 22.3
[2020-08-26] VITALS (9 sets, daily range): BP systolic 91–130; BP diastolic 59–91; PULSE 79–109; RESP 16–22; TEMP 35.6–36.2; O2SAT 98–100; BMI 22.3; BMI 22.6; BMI 22.7
--- NOTE | 2020-08-26 17:21 | RAD_ITS ---
STUDY: X-RAY CHEST REASON FOR EXAM: Male, 80 years old. GENERAL ILLNESS OVER SEVERAL DAYS. NAUSEA WITHOUT EMESIS. DENIES OTHER SYMPTOMS. WEAKNESS TECHNIQUE: AP COMPARISON: 08/21/2020 FINDINGS: EKG leads project over the chest. Sternal wires and mediastinal surgical clips compatible with prior CABG. Central pulmonary vascular congestion with interstitial opacities redemonstrated with localized opacity in the left lung base, obscuring the left hemidiaphragm and costophrenic angle. No pneumothorax. Slight blunting of the right costophrenic angle is stable. A Reveal insertable monitor worker projects over the left chest. There is mild cardiac enlargement. Normal mediastinum and heaven. There is prominence of the pulmonary hilar arteries and peripheral pulmonary arteries, consistent with congestive heart failure (CHF). Normal visualized aortic arch and descending thoracic aorta. No acute bony process. There is no demonstrated abnormality of the visualized soft tissue structures of the upper abdomen. RAD/Chest 1 View (Portable) IMPRESSION: 1. Stable CHF with lower lobe pulmonary edema and trace effusions. Given asymmetry at the left lung base, superimposed pneumonia is possible. Electronically Signed: Ramos Lorenz MD ([place]) at 18:17 EST , Service support ,
--- NOTE | 2020-08-26 17:22 | EKG12_ITS ---
Test Reason : NAUSEA/VOMITING Blood Pressure : / mmHG Vent. Rate : 107 BPM Atrial Rate : 111 BPM P-R Int : 000 ms QRS Dur : 124 ms QT Int : 292 ms P-R-T Axes : 000 -07 177 degrees QTc Int : 389 ms Atrial fibrillation with rapid ventricular response Anteroseptal infarct , age undetermined Left bundle branch block Abnormal ECG Confirmed by DOMINIQUE MONTOYA, STARLA ([id number]), editor book KONG PAGAN ([id number]) on 08/27/2020 2:07:16 PM Referred By: PATRICK Confirmed By:STARLA FOX MD
[2020-08-26] MEDS: Ondansetron 4 MG/2 ML Vial IV (17:54)
--- NOTE | 2020-08-26 18:05 | ED.VIS.GEN ---
History of Present Illness Chief Complaint: Nausea/Vomiting Informant: Patient Narrative: Patient is an 80-year-old male with history of atrial fibrillation and diastolic heart failure as well as coronary artery disease, currently on Eliquis and digoxin. He had a pacemaker placed 08/17/20. Patient states he has been feeling more nauseous and having decreased oral intake over the past few days. He denies any specific shortness of breath but thinks that maybe his legs been more swollen lately. Patient has had multiple admissions for CHF exacerbation as well as A. fib with RVR over the past month. Patient has not been able to keep anything down today. Had the dry heaves for the past 2 to 3 days. He had multiple bowel movements today which is normal for him. No reported fever. No other complaints at this time. Past Medical History - Allergies and Home Meds Allergies/Adverse Reactions: Allergies spironolactone Allergy (Verified 08/26/20 16:54) severe weakness lisinopril Adverse Reaction (Mild, Verified 08/26/20 16:54) Dry cough amiodarone Adverse Reaction (Verified 08/26/20 16:54) toxicity Past Medical History: - - Atrial fibrillation, CKD, systolic and a bundle branch block, hypertension, coronary artery disease, ischemic cardiomyopathy, hyperlipidemia, systolic and diastolic heart failure, history of prostate cancer, type 2 diabetes mellitus Surgical History: coronary bypass surgery, pacemaker implantation Smoking Status: Never smoker - Family History Paternal Family History: Family History (Last Reviewed 08/23/20 @ 16:[address] Jason Lemus MD) Sister Diabetes Sister Colon cancer Diabetes CVA (cerebral vascular accident) Sister Diabetes Brother Heart disease Diabetes Family History: Reports: - - Denies known paternal medical history including cardiac history. Maternal Family History: Family History (Last Reviewed 08/23/20 @ 16:[address] Jason Lemus MD) Sister Diabetes Sister Colon cancer Diabetes CVA (cerebral vascular accident) Sister Diabetes Brother Heart disease Diabetes Family History: Reports: - - Denies known maternal medical history including cardiac history. Review of Systems General: Reports: Malaise. Denies: Chills, Fever, Sweats Eyes: Denies: Visual changes - bilaterally, Diplopia ENT: Denies: Rhinorrhea, Sore throat Cardiovascular: Denies: Chest pain, Palpitations Respiratory: Reports: Dyspnea - Mild. Denies: Cough, Dyspnea on exertion Gastrointestinal: Reports: Nausea. Denies: Abdominal pain, Vomiting, Diarrhea, Melena, Hematochezia Genitourinary: Denies: Dysuria, Hematuria, Frequency Musculoskeletal: Reports: Swelling - Lower extremity, mild. Denies: Back pain, Extremity Pain Skin: Denies: Rash, Wounds Neurological: Denies: Headache, Weakness, Numbness Physical Exam Vital Signs/Narrative: Vital Signs Temp Pulse Resp BP Pulse Ox 08/26/20 16:52 96.0 F L 109 H 16 130/70 H 98 Inital Vital Signs reviewed: Yes General: Well nourished, Well developed, No Acute Distress Head: Normocephalic, Atraumatic Eyes: Perrl, EOMI ENT: Moist mucous membranes, No rhinorrhea Neck: Supple, Nontender Cardiovascular: Regular rate, Regular rhythm, No murmurs Respiratory: No distress, Chest nontender, Diminished - Left base Abdomen: Soft, Nontender, Nondistended, Normal bowel sounds Back: Nontender, Normal Inspection Extremities: Nontender, No edema Skin: Normal color, No rash Neurological: Alert, Oriented x3, Cranial nerves II-XII grossly intact, Normal Strength, Normal Sensation Psychological: Normal affect, Normal Mood Diagnostic/Tx/Re-eval Chest X-Ray - ED: 1 View, Read by ED Physician, Read by Radiologist, Left Infiltrate, Left Effusion Clinical Impression(s) from Imaging Studies Chest X-Ray 08/26/20 17:21 IMPRESSION: 1. Stable CHF with lower lobe pulmonary edema and trace effusions. Given asymmetry at the left lung base, superimposed pneumonia is possible. Electronically Signed: Ramos Lorenz MD ([place]) at 18:17 EST , Service support , Laboratory Data 08/26/20 08/26/20 08/26/20 17:55 17:55 17:55 WBC 11.3 H RBC 5.44 Hgb 16.1 Hct 52.2 MCV 96.0 H MCH 29.6 MCHC 30.8 L RDW Std Deviation 50.0 H RDW Coeff of Shashank 15.2 H Plt Count 204 MPV 12.5 H Immature Gran % (Auto) 0.400 Neut % (Auto) 75.6 H Lymph % (Auto) 15.8 L Garvin % (Auto) 7.9 Eos % (Auto) 0.1 Baso % (Auto) 0.2 Absolute Neuts (auto) 8.6 H Absolute Lymphs (auto) 1.79 Nucleated RBC % 0 Toxic Granulation 1+ Platelet Estimate ADEQUATE Plt Morphology Comment LARGE RBC Morphology N CHROM Anisocytosis RARE Macrocytosis RARE PT 20.1 H INR 1.8 APTT 32.9 Sodium 137 Potassium 4.6 Chloride 95 L Carbon Dioxide 31.0 Anion Gap 11 BUN 57 H Creatinine 2.39 H Estim Creat Clear Calc 23.09 Est GFR (MDRD) Af Amer 34 L Est GFR (MDRD) Non-Af 28 L BUN/Creatinine Ratio 23.8 H Glucose 271 H Lactic Acid Calcium 10.6 H Total Bilirubin 2.60 H Direct Bilirubin 1.37 H AST 91 H ALT 81 H Alkaline Phosphatase 277 H Troponin I 0.552 H B-Natriuretic Peptide Total Protein 7.9 Albumin 3.7 Globulin 4.2 Lipase 67 L Digoxin 08/26/20 08/26/20 08/26/20 17:55 17:55 17:55 WBC RBC Hgb Hct MCV MCH MCHC RDW Std Deviation RDW Coeff of Shashank Plt Count MPV Immature Gran % (Auto) Neut % (Auto) Lymph % (Auto) Garvin % (Auto) Eos % (Auto) Baso % (Auto) Absolute Neuts (auto) Absolute Lymphs (auto) Nucleated RBC % Toxic Granulation Platelet Estimate Plt Morphology Comment RBC Morphology Anisocytosis Macrocytosis PT INR APTT Sodium Potassium Chloride Carbon Dioxide Anion Gap BUN Creatinine Estim Creat Clear Calc Est GFR (MDRD) Af Amer Est GFR (MDRD) Non-Af BUN/Creatinine Ratio Glucose Lactic Acid 4.4 H* Calcium Total Bilirubin Direct Bilirubin AST ALT Alkaline Phosphatase Troponin I B-Natriuretic Peptide > 5000.0 H Total Protein Albumin Globulin Lipase Digoxin 1.35 - Rhythm Strip Rhythm Strip: A-fib Rate: 107 Ectopy: None - EKG Initial EKG Interpretation: Atrial Fibrillation, LBBB, - - Atrial fibrillation at a rate of 107 Normal axis No significant change prior to prior EKG on 08/21/2020 - Medical Decision Making Patient evaluated for worsening nausea. This is a symptom he often presents with 1 is actually a CHF exacerbation having another illness. Patient has had multiple admissions for CHF exacerbation as well as A. fib with RVR over the past month or 2. He had a pacemaker placed a couple weeks ago. Patient is mildly tachycardic but not in A. fib with RVR. Chest x-ray shows persistent effusion and possible infiltrate. He does have a mild leukocytosis as well as a significantly elevated lactate of 4.4 and an elevated creatinine of 2.39. His baseline creatinine is anywhere between 1.5-2. In addition his troponin is elevated to 0.552 which is mildly above his baseline of near what is her troponin was during his last visit. His proBNP is elevated to greater than 5000. Patient's procalcitonin is mildly later 0.23. Covid test is negative. Technically with patient's elevated lactate he meets criteria for septic shock. Patient started on broad-spectrum interact however he is not given 30 cc per fluid kilogram fluid bolus because of patient's extensive history of CHF and the concern of causing significant fluid overload in this patient. Patient is given a 500 cc bolus and started on maintenance fluid. Patient does have intermittent hypoxia while in the ER and placed on supplemental oxygen. With his elevated lactate he will be admitted to the ICU for close treatment and monitoring. He is agreeable with plan of care. Patient is not hypotensive or hemodynamically unstable in the emergency room. Patient is on Eliquis and I do not suspect PE as a cause of his symptoms. Reperfusion exam performed in the ER. Patient reevaluated and continues to not be hypotensive. ED Disposition - Plan for ED Patient: Disposition: Acute Care [facility] Diagnosis: Septic shock, Acute on chronic systolic and diastolic heart failure, NYHA class 2, Acute kidney injury superimposed on chronic kidney disease, Elevated troponin, Pneumonia, Atherosclerosis of coronary artery of [place] heart with angina pectoris
[2020-08-26 18:22] LABS: Absolute Lymphocyte Count 1.79 X10^3/uL (0.83-4.51); Absolute Neutrophil Count 8.6 X10^3/uL (2.0-7.7); Basophil# 0.02 X10^3/uL; Basophil% 0.2 % (0-1); Eosinophil# 0.01 X10^3/uL; Eosinophils% 0.1 % (0-5); Hematocrit 52.2 % (40-54); Hemoglobin 16.1 g/dL (13.0-16.5); Lymphocyte # 1.79 X10^3/ul (4.0); Lymphocyte % 15.8 % (19-41); Mean Corp Hgb Conc 30.8 g/dL (32-36); Mean Corpuscular Hgb 29.6 pg (27.0-32.0); Mean Platelet Vol. 12.5 fl (6.2-12.0); Monocyte% 7.9 % (0-10); NRBC Flagged by Analyzer 0 % (0-5); Neutrophil # 8.57 X10^3/uL (2.7-7.7); Neutrophil % 75.6 % (47-70); POSITIVE MORPHOLOGY YES; Platelet Count 204 K/mm3 (150-450); RBC Distribution Width CV 15.2 % (11.6-14.6); Red Blood Count 5.44 M/mm3 (4.6-6.2); White Blood Count 11.3 K/mm3 (4.4-11.0)
[2020-08-26 18:29] LABS: AST(SGOT) 91 U/L (15-37); Alanine Aminotransfer ALT/SGPT 81 U/L (16-61); Albumin, Serum 3.7 g/dL (3.2-5.0); Alkaline Phosphatase 277 U/L (45-117); Anion Gap 11 (5-15); BUN 57 mg/dL (7-18); BUN/Creat Ratio 23.8 RATIO (10-20); Bilirubin, Direct 1.37 mg/dL (0.00-0.30); Calcium,Total 10.6 mg/dL (8.5-10.1); Chloride 95 mmol/L (98-107); Creatinine, Serum 2.39 mg/dL (0.70-1.30); EST Glomerular Filtration Rate 28 mL/min (>60); Est Glom Filt Rate - Afr Amer 34 mL/min (>60); Estimated Creatinine Clearance 23.09 ml/min; Globulin 4.2 g/dL (2.2-4.2); Glucose 271 mg/dL (74-106); Lipase 67 U/L (73-393); Potassium 4.6 mmol/L (3.5-5.1); Protein, Total 7.9 g/dL (6.4-8.2); Sodium Level 137 mmol/L (136-145)
[2020-08-26 18:30] LABS: International Normalized Ratio 1.8; Prothrombin Time (Protime)PT. 20.1 SECONDS (11.7-14.9)
[2020-08-26 18:31] LABS: Partial Thromboplast Time 32.9 Seconds (24.1-36.2)
[2020-08-26 18:36] LABS: Lactic Acid 4.4 mmol/L (0.4-1.9)
[2020-08-26 18:38] LABS: Differential Indicated SCAN CRITERIA MET
[2020-08-26 18:53] LABS: Digoxin Level 1.35 ng/mL (0.80-2.00)
[2020-08-26] MEDS: Lactated Ringers 1,000 ML 999 ML IV (19:09)
[2020-08-26 19:22] LABS: Anisocytosis RARE; Macrocytosis RARE; Platelet Estimate ADEQUATE (ADEQ); Platelet Morphology LARGE; Red Cell Morphology N CHROM NORMAL (NORM C&C); Toxic Granulation 1+
--- NOTE | 2020-08-26 19:50 | PCM.HP.STD ---
Problem List (1) Septic shock Status: Acute (2) Pneumonia Status: Acute Qualifiers: Pneumonia type: due to unspecified organism Laterality: left Lung location: lower lobe of lung Qualified Code(s): J18.9 - Pneumonia, unspecified organism (3) Acute on chronic systolic and diastolic heart failure, NYHA class 2 Status: Acute (4) Acute kidney injury superimposed on chronic kidney disease Status: Acute (5) Elevated troponin Status: Acute (6) Atherosclerosis of coronary artery of [place] heart with angina pectoris Status: Chronic Qualifiers: Coronary Disease-Associated Artery/Lesion type: [place] artery Qualified Code(s): I25.119 - Atherosclerotic heart disease of [place] coronary artery with unspecified angina pectoris (7) Ischemic cardiomyopathy Status: Chronic (8) Essential (primary) hypertension Status: Chronic (9) Hyperlipidemia Status: Chronic Qualifiers: Hyperlipidemia type: unspecified Qualified Code(s): E78.5 - Hyperlipidemia, unspecified (10) History of permanent cardiac pacemaker placement Status: Chronic Comment: VVI 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 History of Present Illness Date of Admission: 08/26/20 Chief Complaint: Fatigue, malaise. 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 He notes mild cough but denies any marked dyspnea complaint. He does note BL LE edema, but states not worsened. He is laying flat in the bed. In the ED patient once fallen asleep had notable hypoxia in the 80s. Work-up in the ED included T 96, heart rate 109, BP 130/70, respiratory rate 16, 98% on room air, CBC with WBC 11.3, hemoglobin 16.1, platelet 204 with left shift, coags with PT 20.1, INR 1.8, PTT 32.9, CMP with chloride 95, BUN/creatinine 57/2.39, glucose 271, lactic acid 4.4, total bilirubin 2.60, direct bilirubin 1.37, AST/ALT 91/81, alk phos 277, troponin 0 0.552, lipase 67, digoxin 1.35, BNP pending, EKG with chronic atrial fibrillation without acute evidence of ischemia, blood culture x2 pending per ED, chest x-ray with stable CHF with lower lobe pneumonia edema evidence of prior CABG, central pulmonary vascular congestion with interstitial opacities with localized opacity left lung base with stable CHF with superimposed pneumonia possibly. Past Medical History Past Medical History (Chronic Problems): Chronic Problems (Last Reviewed 08/23/20 @ 16:[address] 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 Atrial fibrillation with rapid ventricular response (Chronic 08/09/20) Bradycardia (Chronic) Atherosclerosis of coronary artery of [place] heart with angina pectoris (Chronic) History of non-ST elevation myocardial infarction (NSTEMI) (Chronic 05/2017) 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) CABG x 4: COLES-LAD, SVG-D1, SVG to proximal end of SVG to diagonal going to OM 2, and SVG-RPDA 10/30/16 Ischemic cardiomyopathy (Chronic) Secondary pulmonary arterial hypertension (Chronic) Left bundle branch block (LBBB) (Chronic) Essential (primary) hypertension (Chronic) Hyperlipidemia (Chronic) Medical History: Medical History (Last Reviewed 08/23/20 @ 16:[address] Jason Lemus MD) Persistent atrial fibrillation (Chronic) I48.19 Elevated troponin (Chronic) Onset Date: 08/09/20 R79.89 Atrial fibrillation with rapid ventricular response (Chronic) Onset Date: 08/09/20 I48.91 Acute on chronic systolic and diastolic heart failure, NYHA class 2 (Chronic) I50.43 Acute kidney injury superimposed on chronic kidney disease (Chronic) N17.9, N18.9 Bradycardia (Chronic) R00.1 Hypotension (Inactive) I95.9 Atherosclerosis of coronary artery of [place] heart with angina pectoris (Chronic) I25.119 History of non-ST elevation myocardial infarction (NSTEMI) (Chronic) Onset Date: 05/2017 I25.2 Ischemic cardiomyopathy (Chronic) I25.5 Secondary pulmonary arterial hypertension (Chronic) I27.21 Left bundle branch block (LBBB) (Chronic) I44.7 Essential (primary) hypertension (Chronic) I10 Hyperlipidemia (Chronic) E78.5 Barretts esophagus K22.70 Bilateral pleural effusion Onset Date: 11/2019 J90 CKD (chronic kidney disease) N18.9 Prostate cancer C61 Transient ischemic attack G45.9 Type 2 diabetes mellitus E11.9 Acute respiratory failure with hypoxemia (Resolved) J96.01 Dyspnea on exertion (Resolved) R06.09 Nausea and vomiting (Resolved) R11.2 Shortness of breath (Resolved) R06.02 Paroxysmal atrial fibrillation (Inactive) I48.0 Allergies spironolactone Allergy (Verified 08/26/20 16:54) severe weakness lisinopril Adverse Reaction (Mild, Verified 08/26/20 16:54) Dry cough amiodarone Adverse Reaction (Verified 08/26/20 16:54) toxicity Home Medications: Ambulatory Orders Medication Instructions Recorded cholecalciferol (vitamin D3) 125 5,000 unit PO DAILY 02/16/19 mcg (5,000 unit) capsule Apixaban [Eliquis] 2.5 mg PO BID 07/17/20 Aspirin E.C. [Ecotrin] 81 mg PO DAILY@0800 07/17/20 Glimepiride [Amaryl] 2 mg PO DAILY 07/17/20 Duloxetine Hcl [Cymbalta] 30 mg PO DAILY 08/09/20 Digoxin [Lanoxin] 125 mcg PO DAILY 30 Days #30 tab 08/17/20 Furosemide [Lasix] 60 mg PO DAILY 30 Days #90 tab 08/17/20 Glucerna Shake 120 ml PO 4X/DAY 30 Days #120 08/17/20 liquid Metoprolol Tartrate [Lopressor 100 mg PO BID 30 Days #60 tab 08/17/20 (beta kelsey)] Potassium Chloride 10 meq PO BID 08/21/20 Surgical History: Surgical History (Last Reviewed 08/23/20 @ 16:[address] Jason Lemus MD) History of permanent cardiac pacemaker placement (Chronic) Onset Date: 08/16/20 Z95.0 VVI 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 H/O coronary artery bypass surgery (Chronic) Onset Date: 10/30/16 Z95.1 CABG x 4: COLES-LAD, SVG-D1, SVG to proximal end of SVG to diagonal going to OM 2, and SVG-RPDA 10/30/16 History of cardioversion Onset Date: 03/30/20 Z98.890 History of colonoscopy Z98.890 History of dental surgery Z92.89 History of esophagogastroduodenoscopy (EGD) Z98.890 History of left heart catheterization Onset Date: 08/13/20 Z98.890 [place] 07/23/2018, 08/13/20 History of prostatectomy Z90.79 Surgical History: coronary bypass surgery, - - Prostatectomy, CABG x4, cardioversion, pacemaker, oral surgery. Psychiatric History: Anxiety, Depression Lives: Spouse/ Significant Other Smoking Status: Never smoker Tobacco Use: Non-smoker Alcohol: None Drugs: None - *Family History Paternal Family History: Family History (Last Reviewed 08/23/20 @ 16:[address] Jason Lemus MD) Sister Diabetes Sister Colon cancer Diabetes CVA (cerebral vascular accident) Sister Diabetes Brother Heart disease Diabetes History Items: - - Patient denies any market maternal or paternal family history including heart disease, diabetes, cancer. Maternal Family History: Family History (Last Reviewed 08/23/20 @ 16:[address] Jason Lemus MD) Sister Diabetes Sister Colon cancer Diabetes CVA (cerebral vascular accident) Sister Diabetes Brother Heart disease Diabetes History Items: - - Patient denies any market maternal or paternal family history including heart disease, diabetes, cancer. Review of Systems Constitutional: Reports: Anorexia, Malaise, Weakness, Fatigue. Denies: Chills, Fever, Weight Change HEENT: Denies: Head Aches, Sinus Congestion, Sinus Drainage Cardiovascular: Reports: Edema. Denies: Chest Pain, Chest Pressure, Chest Tightness, Light Headedness, Palpitations, Syncope Respiratory: Reports: Cough, Shortness of breath upon exertion. Denies: Shortness of Breath, Shortness of breath at rest, Sputum production Gastrointestinal: Reports: Nausea. Denies: Abdominal Pain, Vomiting Genitourinary: Denies: Dysuria Musculoskeletal: Reports: Joint Pain. Denies: Joint Tenderness Skin: Denies: Rash, Wounds Neurological: Denies: Numbness, Tingling, Focal weakness Psychiatric: Reports: Anxiety, Depression. Denies: Homicidal Ideations, Suicidal Ideations Hematologic/ Lymphatic: Reports: Easy Bruising, Easy Bleeding VTE Information - Inpt Only VTE Present on Admission: No VTE Mechan Device Prophylaxis: SCD's VTE Pharm Prophylaxis ordered?: No Reason prophylaxis not ordered:: Treatment Not Indicated - Continue home eliquis regimen. Patient Problems: Active and Suspected Problems (Last Reviewed 08/23/20 @ 16:[address] Jason Lemus MD) Septic shock (Acute) Pneumonia (Acute) Elevated troponin (Acute 08/09/20) Acute on chronic systolic and diastolic heart failure, NYHA class 2 (Acute) Acute kidney injury superimposed on chronic kidney disease (Acute) Subjective: Patient laying in the ED bed, fatigued and ill-appearing, no acute distress. Objective: Physical Examination: General: awake, alert, oriented x 3 and cooperative, laying in the ED bed, fatigued and ill-appearing, no obvious distress. Skin: normal color, turgor, no icterus, cyanosis except staged various ecchymoses. HEENT: AT/NC, EOMI, PERRLA, dry MM, no carotid bruits, + JVD noted. Lungs: Diminished breath sounds bilaterally, greater bases, left significantly more so than right, no egophony, no significant rales, rhonchi or wheezing noted. Heart: Irregular irregular; no gallop, rub audible. Abdomen: soft, NTTP, ND, mildly hyperactive BS, no HSM. Extremities: no cyanosis, clubbing, significant 3+ pitting edema mid delgado to pedal as well as bilateral upper extremities. Neurological: patient awake, alert, oriented x 3; cognitive function intact; pupils equally reactive to light and accomodation; cranial nerves II-XII grossly normal, moving all 4 extremities, no focal deficits, strength severely global decrease secondary to acute presentation. Psychiatric: affect appears fatigued, flat, ill-appearing, no acute evidence of depressive or anxiety feelings. - Physical Exam Vitals/I&O's: Vital Signs Temp Pulse Resp BP Pulse Ox 96.0 F L 109 H 16 130/70 H 98 08/26/20 16:52 08/26/20 16:52 08/26/20 16:52 08/26/20 16:52 08/26/20 16:52 Oxygen Delivery Method Room Air Weight: 151 lb Body Mass Index (BMI) 22.3 Laboratory Results 08/26/20 17:55: WBC 11.3 H, RBC 5.44, Hgb 16.1, Hct 52.2, MCV 96.0 H, MCH 29.6, MCHC 30.8 L, RDW Std Deviation 50.0 H, RDW Coeff of Shashank 15.2 H, Plt Count 204, MPV 12.5 H, Immature Gran % (Auto) 0.400, Neut % (Auto) 75.6 H, Lymph % (Auto) 15.8 L, Caroline % (Auto) 7.9, Eos % (Auto) 0.1, Baso % (Auto) 0.2, Absolute Neuts (auto) 8.6 H, Absolute Lymphs (auto) 1.79, Nucleated RBC % 0, Toxic Granulation 1+, Platelet Estimate ADEQUATE, Plt Morphology Comment LARGE, RBC Morphology N CHROM, Anisocytosis RARE, Macrocytosis RARE 08/26/20 17:55: PT 20.1 H, INR 1.8, APTT 32.9 08/26/20 17:55: Sodium 137, Potassium 4.6, Chloride 95 L, Carbon Dioxide 31.0, Anion Gap 11, BUN 57 H, Creatinine 2.39 H, Estim Creat Clear Calc 23.09, Est GFR (MDRD) Af Amer 34 L, Est GFR (MDRD) Non-Af 28 L, BUN/Creatinine Ratio 23.8 H, Glucose 271 H, Calcium 10.6 H, Total Bilirubin 2.60 H, Direct Bilirubin 1.37 H, AST 91 H, ALT 81 H, Alkaline Phosphatase 277 H, Troponin I 0.552 H, Total Protein 7.9, Albumin 3.7, Globulin 4.2, Lipase 67 L 08/26/20 17:55: Lactic Acid 4.4 H* 08/26/20 17:55: B-Natriuretic Peptide Pending 08/26/20 17:55: Digoxin 1.35 Current Medications Lactated Ringer's () 1,000 mls @ 999 mls/hr IV .Q1H1M CUAUHTEMOC Stop: 08/26/20 21:10 Last Admin: 08/26/20 19:09 Dose: 999 mls/hr Documented by: Vancomycin HCl 1,000 mg/ (Dextrose) 270 mls @ 250 mls/hr IV X1 ONE Stop: 08/26/20 20:52 Piperacillin Sod/Tazobactam (Sod 3.375 gm/ Sodium Chloride) 50 mls @ 100 mls/hr IV X1 ONE Stop: 08/26/20 20:17 Assessment/Plan All Active Problems (Last Reviewed 08/23/20 @ 16:[address] Jason Lemus MD) Septic shock (Acute) Pneumonia (Acute) Edema (Acute) Nausea (Acute) Elevated troponin (Acute 08/09/20) Acute on chronic systolic and diastolic heart failure, NYHA class 2 (Acute) Acute kidney injury superimposed on chronic kidney disease (Acute) Acute respiratory failure with hypoxemia (Resolved) Amiodarone toxicity (Resolved) Dyspnea (Resolved) Dyspnea on exertion (Resolved) Nausea and vomiting (Resolved) Shortness of breath (Resolved) The patient is an 80 y/o M w/ PMHx: CKD stage III, CAD s/p CABG x 4, HTN, HLD, PAF, Chronic systolic and diastolic CHF/Ischemic cardiomyopathy, Diabetes mellitus type II, Hx Prostate CA, recent admission with placement 08/17/20 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 1. Acute Septic Shock secondary to Pneumonia, LLL, possible HCAP: Pending COVID testing. Discussed with ED physician and will defer the 30 cc/kg bolus secondary to significant CHF history and some concern for acute on chronic component upon presentation. Will admit patient to the ICU, concern for possible acute on chronic component CHF thus further IV fluids deferred, will plan diuresis but may always opt to d/c and hydrate pending re-evaluation, maintain on cardiac monitoring, maintain on oxygen with wean as tolerated to room air, PRN albuterol, maintain on IV Zosyn and Vancomycin w/ pending MRSA screen with de-escalation of abx as able, HOB, IS parameters w/ pending sputum cultures, respiratory viral panel and urine antigens. ICU physician consulted. Bld cx x 2 obtained in the ED. UA requested. 2. Concern for Possible Acute on Chronic Systolic/Diastolic CHF: 08/16/20 ECHO w/ normal LV, EF 30%, severe global LV systolic dysfunction, no pericardial effusion, small left pleural effusion. BNP >5,000, elevated above recent admission. Significant edema noted on examination, CXR with congestion although reportedly stable, do feel possible component overload, will d/c IVFs regimen for septic shock treatment as BP stable, elevated with possible HCAP as noted, initiate IV lasix, plan repeat CXR in AM, continue aspirin, apixaban, metoprolol regimen with hold parameters, not on statin regimen. Mag pending. 3. Elevated LFTs: Secondary to acute presentation as noted. Admission total bilirubin 2.60, direct bilirubin 1.37, AST/ALT 91/81, alk phos 277, will continue treatment as noted #1 and repeat CMP in a.m. 4. Acute kidney injury on CKD stage III: Secondary to acute presentation as noted and dehydration. Admission BUN/Cr 57/2.39, prior baseline creatinine noted to be 1.6 to primarily 1.8 although has been elevated during prior acute presentations. Concern for #2 despite #1, will continue IV lasix as noted, hold any additional nephrotoxic medications and repeat chemistry in AM. 5. Chronic indeterminate cardiac enzyme: Admission troponin 0 0.552, most recently 08/21/2020 0.411, prior to this had been 0.550, will place on a monitored bed to assure no acute myocardial infarction with serial cardiac enzymes and EKGs. Magnesium level requested. ASA, NG, morphine. 6. History of Tachy-Philip Syndrome: Recent 08/17/20 pacemaker insertion. 7. CAD: Status post CABG x4, will continue patient home aspirin, Eliquis, metoprolol regimen, not on statin, deferred given age. 8. Chronic AF: Post permanent pacemaker, will continue patient home aspirin, Eliquis, metoprolol, digoxin regimen with level appropriate in the ED. 9. Diabetes mellitus type II: Recent 08/10/2020 hemoglobin A1c 7.9%, hold oral home regimen, ADA diet, accu checks w/ ISS. 10. Hypertension: Continue home regimen including metoprolol, IV Lasix as noted above, PRN hydralazine. 11. Hyperlipidemia: Not on agent, FLP in a.m., defer immediate addition given age. 12. Anxiety and depression: We will continue patient home Cymbalta regimen. 13. History of prostate cancer: Status post prostatectomy, remission. 14. DVT prophylaxis: SCDs, continue home Eliquis regimen. 15. CODE status: Patient HCPJANUARY is his and living will is currently in place. Discussed CODE status at length including difference between FULL code, DNR-CCA and DNR-CC status. Following discussions about the differences in these status, requested Full Code status. Patient has had serial admissions and seems to be progressively declining. May be appropriate for consideration of a palliative consultation. Advanced Care Planning Face to Face Time: 16 minutes. Inpatient E&M: 08080 Init Hosp L3 Procedures: 20863 Advncd Care Plan 30 Min
[2020-08-26 20:03] LABS: BNP,B-Type NATRIURETIC PEPTIDE > 5000.0 pg/mL (0-100)
[2020-08-26] MEDS: Vancomycin IV 1,000 MG/200 ML BAG 200 MG IV (21:45)
[2020-08-26 22:01] LABS: Reflex Lactate? Y
--- NOTE | 2020-08-26 22:58 | EKG12_ITS ---
Test Reason : AM EKG Blood Pressure : / mmHG Vent. Rate : 076 BPM Atrial Rate : 288 BPM P-R Int : 000 ms QRS Dur : 144 ms QT Int : 408 ms P-R-T Axes : 000 006 197 degrees QTc Int : 459 ms Atrial fibrillation Left bundle branch block Abnormal ECG When compared with ECG of 26-AUG-2020 23:06, MANUAL COMPARISON REQUIRED, DATA IS UNCONFIRMED Confirmed by DOMINIQUE MONTOYA, STARLA ([id number]), story editor JR SEVERINO ([id number]) on 08/28/2020 11:03:48 AM Referred By: NITHYA Confirmed By:STARLA FOX MD
[2020-08-26 23:01] LABS: Bedside Glucose 265 mg/dL (70-110)
[2020-08-26] MEDS: Furosemide 40 MG/4 ML Vial IV (23:14)
[2020-08-26] MEDS: APIXABAN 2.5 MG TABLET PO (23:14)
[2020-08-26] MEDS: Insulin Lispro 100 UNIT/ML INSULN.PEN SC (23:14)
[2020-08-26] MEDS: 0.9% Saline Lock 10 ML Syringe IV (23:14)
[2020-08-26 23:19] LABS: Ferritin 131 ng/mL (26-388); LDH 257 U/L (87-241); Magnesium 1.9 mg/dL (1.6-2.6)
[2020-08-26 23:20] LABS: Lactic Acid 2.1 mmol/L (0.4-1.9)
[2020-08-26 23:28] LABS: Procalcitonin 0.23 ng/mL (0.00-0.09)
--- NOTE | 2020-08-26 23:38 | CT_ITS ---
HISTORY: ENCEPHALOPATHY, SEPTIC SHOCK, CATE, PNA, RIGHT PUPIL DILATED AND PT NOT RESPONDING WELL, HX PACER, CATE, CABG X 4 ADDITIONAL HISTORY: None provided. COMPARISON: 03/10/2018 MRI EXAMINATION/TECHNIQUE: CT Head or Brain W/O Contrast Injection. Axial, coronal and sagittal images. Number of images including paperwork: 272. A radiation dose optimization technique was used for this scan. FINDINGS: BRAIN: No acute hemorrhage or mass. No definite acute infarct; MRI more sensitive. White matter hypodensity is nonspecific but most commonly seen with chronic ischemic changes. Generalized atrophy. VENTRICULAR SYSTEM: No hydrocephalus. PARANASAL SINUSES AND MASTOIDS: No air-fluid level in the imaged extent. ORBITS: Unremarkable imaged extent. SKELETON AND SOFT TISSUES: Calvarium intact. ASPECTS score: Not applicable. CT/Brain/Head without Contrast IMPRESSION: No acute intracranial abnormality. Chronic involutional and white matter changes. Individualized dose optimization techniques were used for this CT. at 0009 Reported and signed by: Flory Powell MD Electronically Signed: Flory Powell MD at 0:09 EST Tel , Service support ,
[2020-08-27] VITALS (29 sets, daily range): BP systolic 94–134; BP diastolic 45–91; PULSE 71–90; RESP 15–22; TEMP 35.9–36.8; O2SAT 73–100
[2020-08-27 00:50] LABS: Bacteria 0 SEEN /hpf (None Seen); Mucous, Urine 0 SEEN /hpf (<or=2+); Red Blood Cells-Urine 0 SEEN /hpf (0-5); Squamous Epithelial Cells - UA 0 SEEN /hpf (0-5); White Blood Cells 0 SEEN /hpf (0-5)
[2020-08-27 00:54] LABS: Color, Urine Yellow (Yellow); Glucose, Dipstick Normal (Normal); Ketone-Dipstick Negative (Negative); Leukocyte Esterase-Dipstick Negative /ul (Negative); Nitrite-Dipstick Negative (Negative); Occult Blood-Urine Negative /ul (Negative); Protein-Dipstick 15 mg/dl (Negative); Specific Gravity, Urine 1.015 (1.002-1.030); Urine Bilirubin Dipstick Negative (Negative); Urine Clarity Clear (Clear); Urine Urobilinogen Normal (Normal)
[2020-08-27 01:04] LABS: Transitional Epithelial - Ur 0-5 SEEN /hpf (0-5)
--- NOTE | 2020-08-27 01:11 | PCM.RX.CS ---
Consult Pharmacy has been consulted to manage selected antiobiotic: Vancomycin Type of Consult: New start Labs: Sodium 137 mmol/L (136-145) 08/26/20 17:55 Potassium 4.6 mmol/L (3.5-5.1) 08/26/20 17:55 Chloride 95 mmol/L (98-107) L 08/26/20 17:55 Carbon Dioxide 31.0 mmol/L (21.0-32.0) 08/26/20 17:55 Anion Gap 11 (5-15) 08/26/20 17:55 BUN 57 mg/dL (7-18) H 08/26/20 17:55 Creatinine 2.39 mg/dL (0.70-1.30) H 08/26/20 17:55 Est GFR (MDRD) Af Amer 34 mL/min (>60) L 08/26/20 17:55 Est GFR (MDRD) Non-Af 28 mL/min (>60) L 08/26/20 17:55 BUN/Creatinine Ratio 23.8 RATIO (10-20) H 08/26/20 17:55 Glucose 271 mg/dL (74-106) H 08/26/20 17:55 Microbiology: Microbiology 08/27/20 00:15 Urine, Clean Catch Legionella Antigen - Final 08/27/20 00:15 Urine, Clean Catch Streptococcus pneumoniae Antigen (M - Final Goal Trough: 15-20 mcg/mL Pharmacy Plan for Drug Dosing: Pharmacy Service will continue to monitor and adjust dosing as required. Medications Vancomycin HCl () 500 mg in 100 mls @ 100 mls/hr IV Q24H CUAUHTEMOC Discontinued Medications Vancomycin HCl (Vancomycin) 1,000 mg in 200 mls @ 200 mls/hr IV X1 ONE Stop: 08/26/20 20:59 Last Admin: 08/26/20 22:45 Dose: Infused Documented by: Follow-Up Labs: Trough Vancomycin Labs to be done on [date and time ordered]: 08/28 @ 8475
[2020-08-27 01:42] LABS: M R Staph aureus DNA By PCR Negative (Negative); Probe Check PASS; Specimen Processing Control PASS
[2020-08-27 04:39] LABS: Absolute Lymphocyte Count 1.46 X10^3/uL (0.83-4.51); Absolute Neutrophil Count 5.8 X10^3/uL (2.0-7.7); Basophil# 0.01 X10^3/uL; Basophil% 0.1 % (0-1); Hematocrit 45.3 % (40-54); Hemoglobin 14.1 g/dL (13.0-16.5); Lymphocyte # 1.46 X10^3/ul (4.0); Lymphocyte % 18.1 % (19-41); Mean Corp Hgb Conc 31.1 g/dL (32-36); Mean Corpuscular Hgb 29.8 pg (27.0-32.0); Mean Corpuscular Volume 95.8 fL (80-94); Mean Platelet Vol. 12.2 fl (6.2-12.0); Monocyte# 0.76 X10^3/uL; Monocyte% 9.4 % (0-10); NRBC Flagged by Analyzer 0 % (0-5); Neutrophil # 5.81 X10^3/uL (2.7-7.7); Neutrophil % 72.2 % (47-70); Platelet Count 140 K/mm3 (150-450); RBC Distribution Width CV 15.2 % (11.6-14.6); RBC Distribution Width SD 50.6 fl (35.1-43.9); Red Blood Count 4.73 M/mm3 (4.6-6.2); White Blood Count 8.1 K/mm3 (4.4-11.0)
[2020-08-27 04:55] LABS: ALB/GLOB Ratio 0.9 RATIO (0.9-2.4); AST(SGOT) 43 U/L (15-37); Alanine Aminotransfer ALT/SGPT 65 U/L (16-61); Alkaline Phosphatase 215 U/L (45-117); Anion Gap 7 (5-15); BUN 54 mg/dL (7-18); BUN/Creat Ratio 26.6 RATIO (10-20); Calcium,Total 9.1 mg/dL (8.5-10.1); Chloride 98 mmol/L (98-107); Creatinine, Serum 2.03 mg/dL (0.70-1.30); EST Glomerular Filtration Rate 34 mL/min (>60); Est Glom Filt Rate - Afr Amer 41 mL/min (>60); Globulin 3.3 g/dL (2.2-4.2); Glucose 175 mg/dL (74-106); Protein, Total 6.3 g/dL (6.4-8.2); Sodium Level 141 mmol/L (136-145)
--- NOTE | 2020-08-27 05:55 | EKG12_ITS ---
Test Reason : ST ELEVATION Blood Pressure : / mmHG Vent. Rate : 074 BPM Atrial Rate : 073 BPM P-R Int : 000 ms QRS Dur : 148 ms QT Int : 418 ms P-R-T Axes : 000 006 207 degrees QTc Int : 463 ms Atrial fibrillation Left bundle branch block Abnormal ECG When compared with ECG of 26-AUG-2020 17:45, MANUAL COMPARISON REQUIRED, DATA IS UNCONFIRMED Confirmed by DOMINIQUE MONTOYA, STARLA ([id number]), assistant production editor JR SEVERINO ([id number]) on 08/28/2020 11:18:07 AM Referred By: NITHYA Confirmed By:STARLA FOX MD
--- NOTE | 2020-08-27 05:55 | RAD_ITS ---
STUDY: X-RAY CHEST REASON FOR EXAM: Male, 80 years old. SOB TECHNIQUE: Single AP portable view of the chest. COMPARISON: Comparison is made with prior study dated 08/26/2020. FINDINGS: EKG electrodes are seen. Small left pleural effusion with left basilar infiltration and/or atelectasis. There is blunting of the right costophrenic angle with minimal increased markings at the right lung base. Vascular congestion and mild CHF. Sternal cerclage wires and vascular clips are present from a prior sternotomy and coronary artery bypass graft procedure (CABG). Normal mediastinum and heaven. Normal visualized pulmonary arteries. There is atherosclerotic tortuosity of the aortic arch and descending thoracic aorta. Normal visualized thoracic spine. Normal visualized ribs, clavicles, and shoulders. There is no demonstrated abnormality of the visualized soft tissue structures of the upper abdomen. RAD/Chest 1 View (Portable) IMPRESSION: Small bilateral pleural effusions greater on the left with the left basilar atelectasis and/or infiltrate superimposed on mild degree of CHF Electronically Signed: Manny Valle, at 13:32 EST , Service support ,
[2020-08-27 07:05] LABS: Bedside Glucose 151 mg/dL (70-110)
--- NOTE | 2020-08-27 07:29 | PCM.CON.CC ---
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 Qualifiers: Coronary Disease-Associated Artery/Lesion type: [place] artery Qualified Code(s): I25.119 - Atherosclerotic heart disease of [place] coronary artery with unspecified angina pectoris (9) History of non-ST elevation myocardial infarction (NSTEMI) Status: Chronic (10) Ischemic cardiomyopathy Status: Chronic (11) Secondary pulmonary arterial hypertension Status: Chronic (12) Left bundle branch block (LBBB) Status: Chronic (13) Essential (primary) hypertension Status: Chronic (14) Hyperlipidemia Status: Chronic Qualifiers: Hyperlipidemia type: unspecified Qualified Code(s): E78.5 - Hyperlipidemia, unspecified Reason for Consult Date of Consultation: 08/27/20 Reason for Consultation: Concern for sepsis History of Present Illness: The patient is an 80 year old M, with past medical history listed below, who presented [facility] on 08/26/2020 secondary to progressive shortness of breath, nauseous and decreased oral intake over the last few days. Patient had also noted some increased swelling of the lower extremities. Patient has had multiple previous admissions for CHF and A. fib with RVR over the past month. Patient reportedly has had dry heaves for 2 to 3 days along with multiple bowel movements, but this is reportedly normal for him. Patient did not have any reported fever. In the ER, patient was slightly tachycardic, but chest x-ray showed a persistent left effusion with possible infiltrate. Patient also had a mild leukocytosis with a white blood cell count of 11.3. Hemoglobin was elevated at 16.1 and INR was 1.8. Renal function showed a creatinine of 2.39, up from a baseline of approximately 1.6. Troponins were slightly elevated. Patient was given some fluids secondary to sepsis criteria, but not 30 cc/kg given his history of CHF. Patient did require minimal nasal cannula oxygen and was admitted to the intensive care unit for further evaluation. Overnight the intensive care unit, patient has remained hemodynamically stable. Patient did receive a dose of Lasix with significant urine output noted. Patient overall states that he feels extremely tired right now, but is not really reporting shortness of breath. Patient is not having any chest pain, nausea or vomiting. Review of systems otherwise negative from a constitutional, HEENT, respiratory, cardiovascular, GI, genitourinary, musculoskeletal, skin, neurologic, psychiatric and hematologic system unless stated above. Past Medical History Past Medical History (Chronic Problems): Chronic Problems (Last Reviewed 08/23/20 @ 16:[address] 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 Atrial fibrillation with rapid ventricular response (Chronic 08/09/20) Bradycardia (Chronic) Atherosclerosis of coronary artery of [place] heart with angina pectoris (Chronic) History of non-ST elevation myocardial infarction (NSTEMI) (Chronic 05/2017) 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) CABG x 4: COLES-LAD, SVG-D1, SVG to proximal end of SVG to diagonal going to OM 2, and SVG-RPDA 10/30/16 Ischemic cardiomyopathy (Chronic) Secondary pulmonary arterial hypertension (Chronic) Left bundle branch block (LBBB) (Chronic) Essential (primary) hypertension (Chronic) Hyperlipidemia (Chronic) Medical History: Medical History (Last Reviewed 08/23/20 @ 16:[address] Jason Lemus MD) Persistent atrial fibrillation (Chronic) I48.19 Elevated troponin (Acute) Onset Date: 08/09/20 R79.89 Atrial fibrillation with rapid ventricular response (Chronic) Onset Date: 08/09/20 I48.91 Acute on chronic systolic and diastolic heart failure, NYHA class 2 (Acute) I50.43 Acute kidney injury superimposed on chronic kidney disease (Acute) N17.9, N18.9 Bradycardia (Chronic) R00.1 Hypotension (Inactive) I95.9 Atherosclerosis of coronary artery of [place] heart with angina pectoris (Chronic) I25.119 History of non-ST elevation myocardial infarction (NSTEMI) (Chronic) Onset Date: 05/2017 I25.2 Ischemic cardiomyopathy (Chronic) I25.5 Secondary pulmonary arterial hypertension (Chronic) I27.21 Left bundle branch block (LBBB) (Chronic) I44.7 Essential (primary) hypertension (Chronic) I10 Hyperlipidemia (Chronic) E78.5 Barretts esophagus K22.70 Bilateral pleural effusion Onset Date: 11/2019 J90 CKD (chronic kidney disease) N18.9 Prostate cancer C61 Transient ischemic attack G45.9 Type 2 diabetes mellitus E11.9 Acute respiratory failure with hypoxemia (Resolved) J96.01 Dyspnea on exertion (Resolved) R06.09 Nausea and vomiting (Resolved) R11.2 Shortness of breath (Resolved) R06.02 Paroxysmal atrial fibrillation (Inactive) I48.0 Allergies spironolactone Allergy (Verified 08/26/20 16:54) severe weakness lisinopril Adverse Reaction (Mild, Verified 08/26/20 16:54) Dry cough amiodarone Adverse Reaction (Verified 08/26/20 16:54) toxicity Home Medications: Ambulatory Orders Medication Instructions Recorded cholecalciferol (vitamin D3) 125 5,000 unit PO DAILY 02/16/19 mcg (5,000 unit) capsule Apixaban [Eliquis] 2.5 mg PO BID 07/17/20 Aspirin E.C. [Ecotrin] 81 mg PO DAILY@0800 07/17/20 Glimepiride [Amaryl] 2 mg PO DAILY 07/17/20 Duloxetine Hcl [Cymbalta] 30 mg PO DAILY 08/09/20 Digoxin [Lanoxin] 125 mcg PO DAILY 30 Days #30 tab 08/17/20 Furosemide [Lasix] 60 mg PO DAILY 30 Days #90 tab 08/17/20 Glucerna Shake 120 ml PO 4X/DAY 30 Days #120 08/17/20 liquid Metoprolol Tartrate [Lopressor 100 mg PO BID 30 Days #60 tab 08/17/20 (beta kelsey)] Potassium Chloride 10 meq PO BID 08/21/20 Surgical History: Surgical History (Last Reviewed 08/23/20 @ 16:[address] Jason Lemus MD) History of permanent cardiac pacemaker placement (Chronic) Onset Date: 08/16/20 Z95.0 VVI 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 H/O coronary artery bypass surgery (Chronic) Onset Date: 10/30/16 Z95.1 CABG x 4: COLES-LAD, SVG-D1, SVG to proximal end of SVG to diagonal going to OM 2, and SVG-RPDA 10/30/16 History of cardioversion Onset Date: 03/30/20 Z98.890 History of colonoscopy Z98.890 History of dental surgery Z92.89 History of esophagogastroduodenoscopy (EGD) Z98.890 History of left heart catheterization Onset Date: 08/13/20 Z98.890 [place] 07/23/2018, 08/13/20 History of prostatectomy Z90.79 Surgical History: coronary bypass surgery, - - Prostatectomy, CABG x4, cardioversion, pacemaker, oral surgery. Psychiatric History: Anxiety, Depression Lives: Spouse/ Significant Other Smoking Status: Never smoker Tobacco Use: Non-smoker Alcohol: None Drugs: None - *Family History Paternal Family History: Family History (Last Reviewed 08/23/20 @ 16:[address] Jason Lemus MD) Sister Diabetes Sister Colon cancer Diabetes CVA (cerebral vascular accident) Sister Diabetes Brother Heart disease Diabetes History Items: - - Patient denies any market maternal or paternal family history including heart disease, diabetes, cancer. Maternal Family History: Family History (Last Reviewed 08/23/20 @ 16:[address] Jason Lemus MD) Sister Diabetes Sister Colon cancer Diabetes CVA (cerebral vascular accident) Sister Diabetes Brother Heart disease Diabetes History Items: - - Patient denies any market maternal or paternal family history including heart disease, diabetes, cancer. Review of Systems Comment: See HPI Patient Problems: Active and Suspected Problems (Last Reviewed 08/23/20 @ 16:[address] Jason Lemus MD) Septic shock (Acute) Pneumonia (Acute) Elevated troponin (Acute 08/09/20) Acute on chronic systolic and diastolic heart failure, NYHA class 2 (Acute) Acute kidney injury superimposed on chronic kidney disease (Acute) Objective: All imaging was personally reviewed. Chest x-ray from this morning appears grossly unchanged compared to previous. - Physical Exam Vitals/I&O's: Vital Signs Temp Pulse Resp BP Pulse Ox 36.5 C L 83 18 119/81 H 99 08/27/20 05:00 08/27/20 07:00 08/27/20 07:00 08/27/20 07:00 08/27/20 07:00 Oxygen Flow Rate (L/min) 1 Oxygen Delivery Method Nasal Cannula Weight: 69.4 kg Body Mass Index (BMI) 22.6 Intake and Output for Last 24 Hours 08/25/20 08/26/20 08/27/20 23:59 23:59 23:59 Intake Total 750 / 810 87.5 / 87.5 Output Total 900 / 900 Balance 750 / 510 -812.5 / -812.5 General: Alert, Oriented x3, Cooperative, No apparent distress, - - Mild conversational dyspnea. HEENT: Atraumatic, PERRLA, EOMI, Normocephalic, - - No scleral icterus or injection noted Oral: Moist Mucosa, No Gingival or Mucosal Lesions/ Ulcerations Neck: Supple, No JVD, No Nodes, Trachea Midline Lungs: No rhonchi, No wheeze, Diminished, Rales, - - Dullness to percussion at the left base Cardiovascular: Regular rate, Regular Rhythm, Normal S1, Normal S2, No murmurs, No rub noted, No Gallop Abdomen: Bowel Sounds Present, Soft, Non Tender, Non-Distended Extremities: No clubbing, No cyanosis, Edema - 3+ bilateral lower extremity Skin: No rashes, No breakdown, - - Venous stasis changes lower extremities Musculoskeletal: No Tenderness to Palpation of Joints or Extremities Lymphatic: No Cervical, Supraclavicular, or Inguinal Adenopathy Neurological: Cranial nerves II-XII grossly intact, Neuro grossly intact, Motor Exam 5/5 strength throughout Psych/Mental Status: Alert and oriented to time, place, person, mood and affect Microbiology Past 72 Hours 08/26/20 22:35 Mucosa - Nasopharyngeal Respiratory Panel (PCR) - Final 08/27/20 00:15 Urine, Clean Catch Legionella Antigen - Final 08/27/20 00:15 Urine, Clean Catch Streptococcus pneumoniae Antigen (M - Final Laboratory Results 08/26/20 17:55: WBC 11.3 H, RBC 5.44, Hgb 16.1, Hct 52.2, MCV 96.0 H, MCH 29.6, MCHC 30.8 L, RDW Std Deviation 50.0 H, RDW Coeff of Shashank 15.2 H, Plt Count 204, MPV 12.5 H, Immature Gran % (Auto) 0.400, Neut % (Auto) 75.6 H, Lymph % (Auto) 15.8 L, [place] % (Auto) 7.9, Eos % (Auto) 0.1, Baso % (Auto) 0.2, Absolute Neuts (auto) 8.6 H, Absolute Lymphs (auto) 1.79, Nucleated RBC % 0, Toxic Granulation 1+, Platelet Estimate ADEQUATE, Plt Morphology Comment LARGE, RBC Morphology N CHROM, Anisocytosis RARE, Macrocytosis RARE 08/26/20 17:55: PT 20.1 H, INR 1.8, APTT 32.9 08/26/20 17:55: Sodium 137, Potassium 4.6, Chloride 95 L, Carbon Dioxide 31.0, Anion Gap 11, BUN 57 H, Creatinine 2.39 H, Estim Creat Clear Calc 23.09, Est GFR (MDRD) Af Amer 34 L, Est GFR (MDRD) Non-Af 28 L, BUN/Creatinine Ratio 23.8 H, Glucose 271 H, Calcium 10.6 H, Total Bilirubin 2.60 H, Direct Bilirubin 1.37 H, AST 91 H, ALT 81 H, Alkaline Phosphatase 277 H, Troponin I 0.552 H, Total Protein 7.9, Albumin 3.7, Globulin 4.2, Lipase 67 L 08/26/20 17:55: Lactic Acid 4.4 H* 08/26/20 17:55: B-Natriuretic Peptide > 5000.0 H 08/26/20 17:55: Digoxin 1.35 08/26/20 19:59: COVID-19 (JUDY) Not Detected 08/26/20 22:35: MRSA (PCR) Negative 08/26/20 22:40: Lactic Acid 2.1 H* 08/26/20 22:40: Magnesium 1.9, Ferritin 131, Lactate Dehydrogenase 257 H, Troponin I 0.463 H, C-React Prot Ext Range 12.10 H 08/26/20 22:40: Procalcitonin 0.23 H 08/26/20 22:55: POC Glucose 265 H 08/27/20 00:15: Urine Color Yellow, Urine Clarity Clear, Urine pH 6.0, Ur Specific [place] 1.015, Urine Protein 15 H, Urine Glucose (UA) Normal, Urine Ketones Negative, Urine Occult Blood Negative, Urine Nitrite Negative, Urine Bilirubin Negative, Urine Urobilinogen Normal, Ur Leukocyte Esterase Negative, Urine RBC 0 SEEN, Urine WBC 0 SEEN, Ur Squamous Epith Cells 0 SEEN, Ur Transition Epith Cell 0-5 SEEN, Urine Bacteria 0 SEEN, Urine Mucus 0 SEEN 08/27/20 01:20: Troponin I 0.434 H 08/27/20 04:30: WBC 8.1, RBC 4.73, Hgb 14.1, Hct 45.3, MCV 95.8 H, MCH 29.8, MCHC 31.1 L, RDW Std Deviation 50.6 H, RDW Coeff of Shashank 15.2 H, Plt Count 140 L, MPV 12.2 H, Immature Gran % (Auto) 0.200, Neut % (Auto) 72.2 H, Lymph % (Auto) 18.1 L, [place] % (Auto) 9.4, Eos % (Auto) 0.0, Baso % (Auto) 0.1, Absolute Neuts (auto) 5.8, Absolute Lymphs (auto) 1.46, Nucleated RBC % 0 08/27/20 04:30: Sodium 141, Potassium 4.0, Chloride 98, Carbon Dioxide 36.0 H, Anion Gap 7, BUN 54 H, Creatinine 2.03 H, Estim Creat Clear Calc 27.90, Est GFR (MDRD) Af Amer 41 L, Est GFR (MDRD) Non-Af 34 L, BUN/Creatinine Ratio 26.6 H, Glucose 175 H, Calcium 9.1, Total Bilirubin 1.60 H, AST 43 H, ALT 65 H, Alkaline Phosphatase 215 H, Total Protein 6.3 L, Albumin 3.0 L, Globulin 3.3, Albumin/Globulin Ratio 0.9 08/27/20 04:30: Troponin I 0.452 H 08/27/20 06:54: POC Glucose 151 H Current Medications Acetaminophen (Acetaminophen 325 Mg Tablet) 650 mg PO Q6H PRN PRN PRN Reason: Pain Score 1-10/Temp > 100.7 F Al Hydroxide/Mg Hydroxide (Mag Hydrox/Al Hydrox/Simeth 30 Ml Udc) 30 ml PO Q6H PRN PRN PRN Reason: Gastric Burning Albuterol Sulfate (Albuterol 2.5 Mg/3 Ml Vial.Neb.) 2.5 mg INHALATION Q2H PRN PRN PRN Reason: Dyspnea, wheezing Apixaban (Apixaban 2.5 Mg Tablet) 2.5 mg PO BID [facility] Last Admin: 08/26/20 23:14 Dose: 2.5 mg Documented by: Aspirin (Aspirin E.C. 81 Mg Tablet) 81 mg PO DAILY@0800 [facility] Digoxin (Digoxin 125 Mcg Tablet) 125 mcg PO DAILY [facility] Duloxetine HCl (Duloxetine Hcl 30 Mg Capsule) 30 mg PO DAILY [facility] Furosemide (Furosemide 40 Mg/4 Ml Vial) 40 mg IV BID@1000,1800 [facility] Last Admin: 08/26/20 23:14 Dose: 40 mg Documented by: Guaifenesin (Guaifenesin 10 Ml Udc (200mg/10ml)) 10 ml PO Q4H PRN PRN PRN Reason: COUGH Hydralazine HCl (Hydralazine 20 Mg/Ml Vial) 10 mg IV Q4H PRN PRN PRN Reason: SBP > 160 Vancomycin IV Pharmacy to Dose (1 ea/ Sodium Chloride) 500 mls @ 250 mls/hr IV X1 PRN; Protocol PRN Reason: Rx to Dose Piperacillin Sod/Tazobactam (Sod 3.375 gm/ Sodium Chloride) 50 mls @ 12.5 mls/hr IV Q8 [facility] Last Admin: 08/27/20 06:48 Dose: 12.5 mls/hr Documented by: Sodium Chloride () 250 mls @ 15 mls/hr IV .[id number] PRN PRN Reason: Saline Flush Last Infusion: 08/27/20 01:05 Dose: 0 mls/hr Documented by: Sodium Chloride () 250 mls @ 15 mls/hr IV .[id number] PRN PRN Reason: Additional IVPB Infusion Vancomycin HCl () 500 mg in 100 mls @ 100 mls/hr IV Q24H [facility] Insulin Human Lispro (Insulin Lispro 100 Unit/Ml Insuln.Pen) 0 unit SC ACHS [facility]; Protocol Last Admin: 08/26/20 23:14 Dose: 3 units Documented by: Magnesium Hydroxide (Magnesium Hydroxide 30 Ml Udc) 30 ml PO DAILY PRN PRN PRN Reason: Constipation Melatonin (Melatonin 3 Mg Tablet) 3 mg PO QHS PRN PRN PRN Reason: INSOMNIA Metoprolol Tartrate (Metoprolol Tartrate 100 Mg Tablet) 100 mg PO BID [facility] Last Admin: 08/26/20 23:02 Dose: Not Given Documented by: Morphine Sulfate (Morphine 2 Mg/Ml Syringe) 2 mg IV Q3H PRN PRN PRN Reason: Pain Score 6-10 Nitroglycerin (Nitroglycerin (Inpatient Use) 0.4 Mg Tab.Subl) 0.4 mg SUBLINGUAL Q5M PRN PRN Reason: CARDIAC/CHEST PAIN Nutritional Formula (Lactose Free) (Glucerna Shake 120 Ml Liquid) 120 ml PO 4X/DAY [id number] Ondansetron HCl (Ondansetron 4 Mg/2 Ml Vial) 4 mg IV Q8H PRN PRN PRN Reason: NAUSEA/VOMITING Oxycodone HCl (Oxycodone 5 Mg Tablet) 5 mg PO Q4H PRN PRN PRN Reason: Pain Score 4-5 Prochlorperazine Edisylate (Prochlorperazine 10 Mg/2 Ml Vial) 5 mg IV Q4H PRN PRN PRN Reason: Breakthrough Nausea/Vomiting Psyllium Hydrophilic Mucilloid (Psyllium 1 Packet) 1 packet PO DAILY PRN PRN PRN Reason: Constipation Senna/Docusate Sodium (Senna/Docusate Sodium 1 Tablet) 2 tablet PO BID PRN PRN PRN Reason: Constipation Sodium Chloride (0.9% Saline Lock 10 Ml Syringe) 10 - 40 ml IV UD PRN PRN Reason: SALINE FLUSH Last Admin: 08/26/20 23:14 Dose: 40 ml Documented by: Throat Lozenges (Benzocaine/Menthol 1 Lozenge) 1 lozenge MUCOUS MEM Q2H PRN PRN PRN Reason: SORE THROAT Clinical Impression(s) from Imaging Studies Chest X-Ray 08/26/20 17:21 IMPRESSION: 1. Stable CHF with lower lobe pulmonary edema and trace effusions. Given asymmetry at the left lung base, superimposed pneumonia is possible. Electronically Signed: Ramos Lorenz MD (Brooks) at 18:17 EST , Service support , Brain CT 08/26/20 23:38 IMPRESSION: No acute intracranial abnormality. Chronic involutional and white matter changes. Individualized dose optimization techniques were used for this CT. at 0009 Reported and signed by: Flory Powell MD Electronically Signed: Flory Powell MD at 0:09 EST Tel , Service support , Assessment/Plan Active and Suspected Problems (Last Reviewed 08/23/20 @ 16:[address] Jason Lemus MD) Septic shock (Acute) Pneumonia (Acute) Elevated troponin (Acute 08/09/20) Acute on chronic systolic and diastolic heart failure, NYHA class 2 (Acute) Acute kidney injury superimposed on chronic kidney disease (Acute) RECOMMENDATIONS: 1. Continue diuresis as tolerated 2. Discontinue IV fluids 3. Consider cardiology consultation 4. Likely discontinue antibiotics at 48 hours when cultures negative 5. Increase activity as tolerated 6. Likely okay to leave the intensive care unit later today IMPRESSIONS: 1. Acute on chronic combined CHF Patient with significantly elevated BNP and multiple comorbid cardiology conditions. Recommend obtaining cardiology consult. Discontinuation of IV fluids and active diuresis would be indicated. Patient does have extensive lower extremity edema and would benefit from lymphedema recommendations. Patient has had multiple admissions over the last 6 months. 2. Elevated lactate and LFTs, likely secondary to hypoxia secondary to #1 Clinical suspicion for elevated lactate secondary to hypoxia on presentation and congestion related to problem #1. Reasonable to continue with empiric antibiotics for now, but clinical suspicion for acute infectious etiology is low at this time. Anticipate discontinuation of antibiotics at 48 hours if culture negative. 3. Acute kidney injury on CKD stage III Patient with improvement in renal function following diuresis. This would be suggestive of prerenal etiology secondary to decreased cardiac output with volume overload. Would recommend continuing diuretic therapy for now. Continue to monitor electrolytes. 4. History of tachybradycardia syndrome/CAD/chronic A. fib status post pacemaker Patient with complex cardiac history. Unclear if the repeat echocardiogram is really necessary at this point. Patient would likely benefit from cardiology evaluation. Continue with current medications. Patient with a paced rhythm at this time. 5. Advanced age/hypertension/hyperlipidemia/anxiety/depression/history of prostate cancer Complicates care, management, recovery and prognosis. Okay to continue with baseline medications from my perspective. Patient with multiple admissions over the last 3 months. Consider palliative care evaluation. Inpatient E&M: 78346 Init Hosp L3
[2020-08-27] MEDS: Aspirin E.C. 81 MG Tablet PO (08:05)
[2020-08-27] MEDS: 0.9% Saline Lock 10 ML Syringe IV ×4 (09:30→21:48)
[2020-08-27] MEDS: Furosemide 40 MG/4 ML Vial IV ×2 (09:30→17:50)
[2020-08-27] MEDS: Digoxin 125 MCG Tablet PO (09:30)
[2020-08-27] MEDS: Metoprolol Tartrate 100 MG Tablet PO ×2 (09:30→21:47)
[2020-08-27] MEDS: APIXABAN 2.5 MG TABLET PO ×2 (09:30→21:47)
[2020-08-27] MEDS: DULoxetine Hcl 30 MG Capsule PO (09:30)
[2020-08-27] MEDS: Glucerna Shake 120 ML LIQUID PO ×4 (09:30→21:46)
[2020-08-27] MEDS: Ondansetron 4 MG/2 ML Vial IV (10:10)
--- NOTE | 2020-08-27 11:02 | CASEMGMT ---
SW reviewed chart, physician suggesting pt may benefit from a palliative referral. Pt has CCN, SW called [facility], no palliative referral has been made but they have started talking about it w/pt and family. SW attempted to speak w/pt. Pt was sleeping, SW woke him, he is not feeling well, agreeable to have SW call . SW called , spoke w/her about pt's prior level of care and discharge plan, and palliative care. PCP: Dr. Brock Specialists: Dr. Lemus Insurance/Prescription coverage: [employer] Medicare LW/POA: Not on file, confirms he has not completed the forms LNOK: Son Mason, Living arrangements: Patient lives with in a one story home, one step to enter. As per pt is independent with most ADLs, but is not driving and son organizes meds. Pt has [employer] DME/HHC: PT has a cane, walker, shower chair, raised toilet and grab bars, pt is not on O2 at home. Pt has [facility] for therapy, and has CCN for nursing. SW spoke w/ about discharge plan, asked about palliative care. is not familiar with palliative care, is unsure about this. SW then spoke w/bedside RN who states that has dementia as per son, and son is main contact. SW/CM will continue to follow, will follow up w/pt once pt is more able to speak w/SW in regard to palliative care. KATTY Felix
[2020-08-27 11:10] LABS: Bedside Glucose 138 mg/dL (70-110)
--- NOTE | 2020-08-27 12:10 | PCM.PROGNOTE ---
Patient Problems: Active and Suspected Problems (Last Reviewed 08/23/20 @ 16:[address] Jason Lemus MD) Septic shock (Acute) Pneumonia (Acute) Elevated troponin (Acute 08/09/20) Acute on chronic systolic and diastolic heart failure, NYHA class 2 (Acute) Acute kidney injury superimposed on chronic kidney disease (Acute) - Physical Exam Vitals/I&O's: Vital Signs Temp Pulse Resp BP Pulse Ox 97 F L 87 18 114/45 L 96 08/27/20 10:00 08/27/20 11:00 08/27/20 11:00 08/27/20 11:00 08/27/20 11:00 Oxygen Flow Rate (L/min) 1 Oxygen Delivery Method Room Air Weight: 69.4 kg Body Mass Index (BMI) 22.6 Intake and Output for Last 24 Hours 08/25/20 08/26/20 08/27/20 23:59 23:59 23:59 Intake Total 750 / 810 237.5 / 237.5 Output Total 1200 / 1200 Balance 750 / 510 -962.5 / -962.5 Microbiology Past 72 Hours 08/26/20 22:35 Mucosa - Nasopharyngeal Respiratory Panel (PCR) - Final 08/27/20 00:15 Urine, Clean Catch Legionella Antigen - Final 08/27/20 00:15 Urine, Clean Catch Streptococcus pneumoniae Antigen (M - Final Laboratory Results 08/26/20 17:55: WBC 11.3 H, RBC 5.44, Hgb 16.1, Hct 52.2, MCV 96.0 H, MCH 29.6, MCHC 30.8 L, RDW Std Deviation 50.0 H, RDW Coeff of Shashank 15.2 H, Plt Count 204, MPV 12.5 H, Immature Gran % (Auto) 0.400, Neut % (Auto) 75.6 H, Lymph % (Auto) 15.8 L, [place] % (Auto) 7.9, Eos % (Auto) 0.1, Baso % (Auto) 0.2, Absolute Neuts (auto) 8.6 H, Absolute Lymphs (auto) 1.79, Nucleated RBC % 0, Toxic Granulation 1+, Platelet Estimate ADEQUATE, Plt Morphology Comment LARGE, RBC Morphology N CHROM, Anisocytosis RARE, Macrocytosis RARE 08/26/20 17:55: PT 20.1 H, INR 1.8, APTT 32.9 08/26/20 17:55: Sodium 137, Potassium 4.6, Chloride 95 L, Carbon Dioxide 31.0, Anion Gap 11, BUN 57 H, Creatinine 2.39 H, Estim Creat Clear Calc 23.09, Est GFR (MDRD) Af Amer 34 L, Est GFR (MDRD) Non-Af 28 L, BUN/Creatinine Ratio 23.8 H, Glucose 271 H, Calcium 10.6 H, Total Bilirubin 2.60 H, Direct Bilirubin 1.37 H, AST 91 H, ALT 81 H, Alkaline Phosphatase 277 H, Troponin I 0.552 H, Total Protein 7.9, Albumin 3.7, Globulin 4.2, Lipase 67 L 08/26/20 17:55: Lactic Acid 4.4 H* 08/26/20 17:55: B-Natriuretic Peptide > 5000.0 H 08/26/20 17:55: Digoxin 1.35 08/26/20 19:59: COVID-19 (JUDY) Not Detected 08/26/20 22:35: MRSA (PCR) Negative 08/26/20 22:40: Lactic Acid 2.1 H* 08/26/20 22:40: Magnesium 1.9, Ferritin 131, Lactate Dehydrogenase 257 H, Troponin I 0.463 H, C-React Prot Ext Range 12.10 H 08/26/20 22:40: Procalcitonin 0.23 H 08/26/20 22:55: POC Glucose 265 H 08/27/20 00:15: Urine Color Yellow, Urine Clarity Clear, Urine pH 6.0, Ur Specific [place] 1.015, Urine Protein 15 H, Urine Glucose (UA) Normal, Urine Ketones Negative, Urine Occult Blood Negative, Urine Nitrite Negative, Urine Bilirubin Negative, Urine Urobilinogen Normal, Ur Leukocyte Esterase Negative, Urine RBC 0 SEEN, Urine WBC 0 SEEN, Ur Squamous Epith Cells 0 SEEN, Ur Transition Epith Cell 0-5 SEEN, Urine Bacteria 0 SEEN, Urine Mucus 0 SEEN 08/27/20 01:20: Troponin I 0.434 H 08/27/20 04:30: WBC 8.1, RBC 4.73, Hgb 14.1, Hct 45.3, MCV 95.8 H, MCH 29.8, MCHC 31.1 L, RDW Std Deviation 50.6 H, RDW Coeff of Shashank 15.2 H, Plt Count 140 L, MPV 12.2 H, Immature Gran % (Auto) 0.200, Neut % (Auto) 72.2 H, Lymph % (Auto) 18.1 L, [place] % (Auto) 9.4, Eos % (Auto) 0.0, Baso % (Auto) 0.1, Absolute Neuts (auto) 5.8, Absolute Lymphs (auto) 1.46, Nucleated RBC % 0 08/27/20 04:30: Sodium 141, Potassium 4.0, Chloride 98, Carbon Dioxide 36.0 H, Anion Gap 7, BUN 54 H, Creatinine 2.03 H, Estim Creat Clear Calc 27.90, Est GFR (MDRD) Af Amer 41 L, Est GFR (MDRD) Non-Af 34 L, BUN/Creatinine Ratio 26.6 H, Glucose 175 H, Calcium 9.1, Total Bilirubin 1.60 H, AST 43 H, ALT 65 H, Alkaline Phosphatase 215 H, Total Protein 6.3 L, Albumin 3.0 L, Globulin 3.3, Albumin/Globulin Ratio 0.9 08/27/20 04:30: Troponin I 0.452 H 08/27/20 06:54: POC Glucose 151 H 08/27/20 10:59: POC Glucose 138 H Current Medications Acetaminophen (Acetaminophen 325 Mg Tablet) 650 mg PO Q6H PRN PRN PRN Reason: Pain Score 1-10/Temp > 100.7 F Al Hydroxide/Mg Hydroxide (Mag Hydrox/Al Hydrox/Simeth 30 Ml Udc) 30 ml PO Q6H PRN PRN PRN Reason: Gastric Burning Albuterol Sulfate (Albuterol 2.5 Mg/3 Ml Vial.Neb.) 2.5 mg INHALATION Q2H PRN PRN PRN Reason: Dyspnea, wheezing Apixaban (Apixaban 2.5 Mg Tablet) 2.5 mg PO BID [facility] Last Admin: 08/27/20 09:30 Dose: 2.5 mg Documented by: Aspirin (Aspirin E.C. 81 Mg Tablet) 81 mg PO DAILY@0800 [facility] Last Admin: 08/27/20 08:05 Dose: 81 mg Documented by: Digoxin (Digoxin 125 Mcg Tablet) 125 mcg PO DAILY [facility] Last Admin: 08/27/20 09:30 Dose: 125 mcg Documented by: Duloxetine HCl (Duloxetine Hcl 30 Mg Capsule) 30 mg PO DAILY [facility] Last Admin: 08/27/20 09:30 Dose: 30 mg Documented by: Furosemide (Furosemide 40 Mg/4 Ml Vial) 40 mg IV BID@1000,1800 [facility] Last Admin: 08/27/20 09:30 Dose: 40 mg Documented by: Guaifenesin (Guaifenesin 10 Ml Udc (200mg/10ml)) 10 ml PO Q4H PRN PRN PRN Reason: COUGH Hydralazine HCl (Hydralazine 20 Mg/Ml Vial) 10 mg IV Q4H PRN PRN PRN Reason: SBP > 160 Piperacillin Sod/Tazobactam (Sod 3.375 gm/ Sodium Chloride) 50 mls @ 12.5 mls/hr IV Q8 [facility] Last Infusion: 08/27/20 10:48 Dose: Infused Documented by: Sodium Chloride () 250 mls @ 15 mls/hr IV .[id number] PRN PRN Reason: Saline Flush Last Infusion: 08/27/20 01:05 Dose: 0 mls/hr Documented by: Sodium Chloride () 250 mls @ 15 mls/hr IV .[id number] PRN PRN Reason: Additional IVPB Infusion Insulin Human Lispro (Insulin Lispro 100 Unit/Ml Insuln.Pen) 0 unit SC [facility]; Protocol Last Admin: 08/27/20 11:01 Dose: Not Given Documented by: Magnesium Hydroxide (Magnesium Hydroxide 30 Ml Udc) 30 ml PO DAILY PRN PRN PRN Reason: Constipation Melatonin (Melatonin 3 Mg Tablet) 3 mg PO QHS PRN PRN PRN Reason: INSOMNIA Metoprolol Tartrate (Metoprolol Tartrate 100 Mg Tablet) 100 mg PO BID [facility] Last Admin: 08/27/20 09:30 Dose: 100 mg Documented by: Morphine Sulfate (Morphine 2 Mg/Ml Syringe) 2 mg IV Q3H PRN PRN PRN Reason: Pain Score 6-10 Nitroglycerin (Nitroglycerin (Inpatient Use) 0.4 Mg Tab.Subl) 0.4 mg SUBLINGUAL Q5M PRN PRN Reason: CARDIAC/CHEST PAIN Nutritional Formula (Lactose Free) (Glucerna Shake 120 Ml Liquid) 120 ml PO 4X/DAY [facility] Last Admin: 08/27/20 09:30 Dose: 120 ml Documented by: Ondansetron HCl (Ondansetron 4 Mg/2 Ml Vial) 4 mg IV Q8H PRN PRN PRN Reason: NAUSEA/VOMITING Last Admin: 08/27/20 10:10 Dose: 4 mg Documented by: Oxycodone HCl (Oxycodone 5 Mg Tablet) 5 mg PO Q4H PRN PRN PRN Reason: Pain Score 4-5 Prochlorperazine Edisylate (Prochlorperazine 10 Mg/2 Ml Vial) 5 mg IV Q4H PRN PRN PRN Reason: Breakthrough Nausea/Vomiting Psyllium Hydrophilic Mucilloid (Psyllium 1 Packet) 1 packet PO DAILY PRN PRN PRN Reason: Constipation Senna/Docusate Sodium (Senna/Docusate Sodium 1 Tablet) 2 tablet PO BID PRN PRN PRN Reason: Constipation Sodium Chloride (0.9% Saline Lock 10 Ml Syringe) 10 - 40 ml IV UD PRN PRN Reason: SALINE FLUSH Last Admin: 08/27/20 09:30 Dose: 10 ml Documented by: Throat Lozenges (Benzocaine/Menthol 1 Lozenge) 1 lozenge MUCOUS MEM Q2H PRN PRN PRN Reason: SORE THROAT Medical Necessity - Tobacco Use Smoking Status: Never smoker Tobacco Use: Non-smoker Assessment/Plan All Active Problems (Last Reviewed 08/23/20 @ 16:[address] Jason Lemus MD) Septic shock (Acute) Pneumonia (Acute) Edema (Acute) Nausea (Acute) Elevated troponin (Acute 08/09/20) Acute on chronic systolic and diastolic heart failure, NYHA class 2 (Acute) Acute kidney injury superimposed on chronic kidney disease (Acute) Acute respiratory failure with hypoxemia (Resolved) Amiodarone toxicity (Resolved) Dyspnea (Resolved) Dyspnea on exertion (Resolved) Nausea and vomiting (Resolved) Shortness of breath (Resolved) #1 acute on chronic systolic CHF-diuresis will be continued at this time, patient will be transferred to PCU, I do not believe the patient needs to be seen by cardiology at this time, I briefly talked with Dr. Lemus by phone, patient will be taken off Lanoxin and placed on Cardizem CD. #2 elevated lactic acid-secondary to hypoxia #3 acute kidney injury on a backdrop of chronic kidney disease stage III #4 chronic atrial fibrillation #5 hyperlipidemia #6 atherosclerotic heart disease-stable #7 ischemic cardiomyopathy #8 essential hypertension
--- NOTE | 2020-08-27 12:16 | PCM.PROGNOTE ---
Patient Problems: Active and Suspected Problems (Last Reviewed 08/23/20 @ 16:[address] Jason Lemus MD) Septic shock (Acute) Pneumonia (Acute) Elevated troponin (Acute 08/09/20) Acute on chronic systolic and diastolic heart failure, NYHA class 2 (Acute) Acute kidney injury superimposed on chronic kidney disease (Acute) Subjective: Patient was seen and examined today in ICU, he was evaluated by critical care this morning who felt that the patient did not probably have septic shock-they felt he probably had congestive heart failure and recommended that diuresis be continued and the patient was stable for discharge to the floor. I talked to the patient briefly today, he has no complaints of any shortness of breath or chest discomfort. Patient does not look in any distress. - Physical Exam Vitals/I&O's: Vital Signs Temp Pulse Resp BP Pulse Ox 97.1 F L 87 20 H 107/77 98 08/27/20 12:00 08/27/20 12:00 08/27/20 12:00 08/27/20 12:00 08/27/20 12:00 Oxygen Flow Rate (L/min) 1 Oxygen Delivery Method Room Air Weight: 69.4 kg Body Mass Index (BMI) 22.6 Intake and Output for Last 24 Hours 08/25/20 08/26/20 08/27/20 23:59 23:59 23:59 Intake Total 750 / 810 237.5 / 237.5 Output Total 1200 / 1200 Balance 750 / 510 -962.5 / -962.5 General: Alert, Oriented x3, Cooperative, No apparent distress, Well developed, Well nourished HEENT: Atraumatic, PERRLA, EOMI, Normocephalic Oral: Moist Mucosa Neck: Supple, No JVD, Trachea Midline, Thyroid Normal Size and Texture Lungs: Clear to auscultation, Normal air movement, No rhonchi, No wheeze Cardiovascular: No murmurs, PMI Normal, Irregular Rate, No rub noted Abdomen: Bowel Sounds Present, Soft, Non Tender, Non-Distended Extremities: No clubbing, No cyanosis, No edema, Capillary Refill Less than 3 Seconds Skin: No rashes, No breakdown Musculoskeletal: No Tenderness to Palpation of Joints or Extremities Neurological: Cranial nerves II-XII grossly intact, Neuro grossly intact, Sensory exam intact to light touch and pain, Coordination normal Psych/Mental Status: Normal Affect, Appropriate, Alert and oriented to time, place, person, mood and affect Microbiology Past 72 Hours 08/26/20 22:35 Mucosa - Nasopharyngeal Respiratory Panel (PCR) - Final 08/27/20 00:15 Urine, Clean Catch Legionella Antigen - Final 08/27/20 00:15 Urine, Clean Catch Streptococcus pneumoniae Antigen (M - Final Laboratory Results 08/26/20 17:55: WBC 11.3 H, RBC 5.44, Hgb 16.1, Hct 52.2, MCV 96.0 H, MCH 29.6, MCHC 30.8 L, RDW Std Deviation 50.0 H, RDW Coeff of [place] 15.2 H, Plt Count 204, MPV 12.5 H, Immature Gran % (Auto) 0.400, Neut % (Auto) 75.6 H, Lymph % (Auto) 15.8 L, [place] % (Auto) 7.9, Eos % (Auto) 0.1, Baso % (Auto) 0.2, Absolute Neuts (auto) 8.6 H, Absolute Lymphs (auto) 1.79, Nucleated RBC % 0, Toxic Granulation 1+, Platelet Estimate ADEQUATE, Plt Morphology Comment LARGE, RBC Morphology N CHROM, Anisocytosis RARE, Macrocytosis RARE 08/26/20 17:55: PT 20.1 H, INR 1.8, APTT 32.9 08/26/20 17:55: Sodium 137, Potassium 4.6, Chloride 95 L, Carbon Dioxide 31.0, Anion Gap 11, BUN 57 H, Creatinine 2.39 H, Estim Creat Clear Calc 23.09, Est GFR (MDRD) Af Amer 34 L, Est GFR (MDRD) Non-Af 28 L, BUN/Creatinine Ratio 23.8 H, Glucose 271 H, Calcium 10.6 H, Total Bilirubin 2.60 H, Direct Bilirubin 1.37 H, AST 91 H, ALT 81 H, Alkaline Phosphatase 277 H, Troponin I 0.552 H, Total Protein 7.9, Albumin 3.7, Globulin 4.2, Lipase 67 L 08/26/20 17:55: Lactic Acid 4.4 H* 08/26/20 17:55: B-Natriuretic Peptide > 5000.0 H 08/26/20 17:55: Digoxin 1.35 08/26/20 19:59: COVID-19 (JUDY) Not Detected 08/26/20 22:35: MRSA (PCR) Negative 08/26/20 22:40: Lactic Acid 2.1 H* 08/26/20 22:40: Magnesium 1.9, Ferritin 131, Lactate Dehydrogenase 257 H, Troponin I 0.463 H, C-React Prot Ext Range 12.10 H 08/26/20 22:40: Procalcitonin 0.23 H 08/26/20 22:55: POC Glucose 265 H 08/27/20 00:15: Urine Color Yellow, Urine Clarity Clear, Urine pH 6.0, Ur Specific [place] 1.015, Urine Protein 15 H, Urine Glucose (UA) Normal, Urine Ketones Negative, Urine Occult Blood Negative, Urine Nitrite Negative, Urine Bilirubin Negative, Urine Urobilinogen Normal, Ur Leukocyte Esterase Negative, Urine RBC 0 SEEN, Urine WBC 0 SEEN, Ur Squamous Epith Cells 0 SEEN, Ur Transition Epith Cell 0-5 SEEN, Urine Bacteria 0 SEEN, Urine Mucus 0 SEEN 08/27/20 01:20: Troponin I 0.434 H 08/27/20 04:30: WBC 8.1, RBC 4.73, Hgb 14.1, Hct 45.3, MCV 95.8 H, MCH 29.8, MCHC 31.1 L, RDW Std Deviation 50.6 H, RDW Coeff of Shashank 15.2 H, Plt Count 140 L, MPV 12.2 H, Immature Gran % (Auto) 0.200, Neut % (Auto) 72.2 H, Lymph % (Auto) 18.1 L, [place] % (Auto) 9.4, Eos % (Auto) 0.0, Baso % (Auto) 0.1, Absolute Neuts (auto) 5.8, Absolute Lymphs (auto) 1.46, Nucleated RBC % 0 08/27/20 04:30: Sodium 141, Potassium 4.0, Chloride 98, Carbon Dioxide 36.0 H, Anion Gap 7, BUN 54 H, Creatinine 2.03 H, Estim Creat Clear Calc 27.90, Est GFR (MDRD) Af Amer 41 L, Est GFR (MDRD) Non-Af 34 L, BUN/Creatinine Ratio 26.6 H, Glucose 175 H, Calcium 9.1, Total Bilirubin 1.60 H, AST 43 H, ALT 65 H, Alkaline Phosphatase 215 H, Total Protein 6.3 L, Albumin 3.0 L, Globulin 3.3, Albumin/Globulin Ratio 0.9 08/27/20 04:30: Troponin I 0.452 H 08/27/20 06:54: POC Glucose 151 H 08/27/20 10:59: POC Glucose 138 H Current Medications Acetaminophen (Acetaminophen 325 Mg Tablet) 650 mg PO Q6H PRN PRN PRN Reason: Pain Score 1-10/Temp > 100.7 F Al Hydroxide/Mg Hydroxide (Mag Hydrox/Al Hydrox/Simeth 30 Ml Udc) 30 ml PO Q6H PRN PRN PRN Reason: Gastric Burning Albuterol Sulfate (Albuterol 2.5 Mg/3 Ml Vial.Neb.) 2.5 mg INHALATION Q2H PRN PRN PRN Reason: Dyspnea, wheezing Apixaban (Apixaban 2.5 Mg Tablet) 2.5 mg PO BID [facility] Last Admin: 08/27/20 09:30 Dose: 2.5 mg Documented by: Aspirin (Aspirin E.C. 81 Mg Tablet) 81 mg PO DAILY@0800 [facility] Last Admin: 08/27/20 08:05 Dose: 81 mg Documented by: Digoxin (Digoxin 125 Mcg Tablet) 125 mcg PO DAILY [facility] Last Admin: 08/27/20 09:30 Dose: 125 mcg Documented by: Duloxetine HCl (Duloxetine Hcl 30 Mg Capsule) 30 mg PO DAILY [facility] Last Admin: 08/27/20 09:30 Dose: 30 mg Documented by: Furosemide (Furosemide 40 Mg/4 Ml Vial) 40 mg IV BID@1000,1800 [facility] Last Admin: 08/27/20 09:30 Dose: 40 mg Documented by: Guaifenesin (Guaifenesin 10 Ml Udc (200mg/10ml)) 10 ml PO Q4H PRN PRN PRN Reason: COUGH Hydralazine HCl (Hydralazine 20 Mg/Ml Vial) 10 mg IV Q4H PRN PRN PRN Reason: SBP > 160 Piperacillin Sod/Tazobactam (Sod 3.375 gm/ Sodium Chloride) 50 mls @ 12.5 mls/hr IV Q8 [facility] Last Infusion: 08/27/20 10:48 Dose: Infused Documented by: Sodium Chloride () 250 mls @ 15 mls/hr IV .[id number] PRN PRN Reason: Saline Flush Last Infusion: 08/27/20 01:05 Dose: 0 mls/hr Documented by: Sodium Chloride () 250 mls @ 15 mls/hr IV .[id number] PRN PRN Reason: Additional IVPB Infusion Insulin Human Lispro (Insulin Lispro 100 Unit/Ml Insuln.Pen) 0 unit SC ACHS [facility]; Protocol Last Admin: 08/27/20 11:01 Dose: Not Given Documented by: Magnesium Hydroxide (Magnesium Hydroxide 30 Ml Udc) 30 ml PO DAILY PRN PRN PRN Reason: Constipation Melatonin (Melatonin 3 Mg Tablet) 3 mg PO QHS PRN PRN PRN Reason: INSOMNIA Metoprolol Tartrate (Metoprolol Tartrate 100 Mg Tablet) 100 mg PO BID [facility] Last Admin: 08/27/20 09:30 Dose: 100 mg Documented by: Morphine Sulfate (Morphine 2 Mg/Ml Syringe) 2 mg IV Q3H PRN PRN PRN Reason: Pain Score 6-10 Nitroglycerin (Nitroglycerin (Inpatient Use) 0.4 Mg Tab.Subl) 0.4 mg SUBLINGUAL Q5M PRN PRN Reason: CARDIAC/CHEST PAIN Nutritional Formula (Lactose Free) (Glucerna Shake 120 Ml Liquid) 120 ml PO 4X/DAY [facility] Last Admin: 08/27/20 09:30 Dose: 120 ml Documented by: Ondansetron HCl (Ondansetron 4 Mg/2 Ml Vial) 4 mg IV Q8H PRN PRN PRN Reason: NAUSEA/VOMITING Last Admin: 08/27/20 10:10 Dose: 4 mg Documented by: Oxycodone HCl (Oxycodone 5 Mg Tablet) 5 mg PO Q4H PRN PRN PRN Reason: Pain Score 4-5 Prochlorperazine Edisylate (Prochlorperazine 10 Mg/2 Ml Vial) 5 mg IV Q4H PRN PRN PRN Reason: Breakthrough Nausea/Vomiting Psyllium Hydrophilic Mucilloid (Psyllium 1 Packet) 1 packet PO DAILY PRN PRN PRN Reason: Constipation Senna/Docusate Sodium (Senna/Docusate Sodium 1 Tablet) 2 tablet PO BID PRN PRN PRN Reason: Constipation Sodium Chloride (0.9% Saline Lock 10 Ml Syringe) 10 - 40 ml IV UD PRN PRN Reason: SALINE FLUSH Last Admin: 08/27/20 09:30 Dose: 10 ml Documented by: Throat Lozenges (Benzocaine/Menthol 1 Lozenge) 1 lozenge MUCOUS MEM Q2H PRN PRN PRN Reason: SORE THROAT Medical Necessity - Tobacco Use Smoking Status: Never smoker Tobacco Use: Non-smoker Assessment/Plan All Active Problems (Last Reviewed 08/23/20 @ 16:[address] Jason Lemus MD) Septic shock (Acute) Pneumonia (Acute) Edema (Acute) Nausea (Acute) Elevated troponin (Acute 08/09/20) Acute on chronic systolic and diastolic heart failure, NYHA class 2 (Acute) Acute kidney injury superimposed on chronic kidney disease (Acute) Acute respiratory failure with hypoxemia (Resolved) Amiodarone toxicity (Resolved) Dyspnea (Resolved) Dyspnea on exertion (Resolved) Nausea and vomiting (Resolved) Shortness of breath (Resolved) #1 acute on chronic diastolic CHF-diuresis will be continued at this time, patient will be transferred to PCU, I do not believe the patient needs to be seen by cardiology at this time #2 elevated lactic acid-secondary to hypoxia #3 acute kidney injury on a backdrop of chronic kidney disease stage III #4 chronic atrial fibrillation #5 hyperlipidemia #6 atherosclerotic heart disease-stable #7 ischemic cardiomyopathy #8 essential hypertension Inpatient E&M: 21735 Subs Hosp L2
--- NOTE | 2020-08-27 15:38 | CASEMGMT ---
GERM[facility]N CM Readmission Note Previous admission: 08/09/20-08/17/20 Diagnosis: Atrial Fib, pacemaker placement DC Date: 08/17/20 Discharge Disposition: Home w/HHC and CCN referral Current Admission: septic shock, CHF, CATE Numerous admissions this year- consider Palliative care evaluation. The patient presented with marked dyspnea, LE edema, decreased appetite. Lactic acid 2.1, Troponin 0.463. IV antibiotics, Eliquis, Zofran. On 2L NC. See SW note for assessment details for home environment. The patient lives with , has equipment @ home. [employer] consult. Irma DEJESUS RN ACM
[2020-08-27 16:26] LABS: Bedside Glucose 149 mg/dL (70-110)
--- NOTE | 2020-08-27 18:11 | NURSING ---
Nurse to nurse report given to Khloe DUNLAP
[2020-08-27] MEDS: Senna/Docusate Sodium 1 Tablet 2 TABLET PO (18:48)
[2020-08-27 22:15] LABS: Bedside Glucose 114 mg/dL (70-110)
[2020-08-28] VITALS (12 sets, daily range): BP systolic 99–122; BP diastolic 58–68; PULSE 69–82; RESP 18; TEMP 36.3–36.6; O2SAT 94–99
[2020-08-28 05:25] LABS: Bedside Glucose 75 mg/dL (70-110)
[2020-08-28 06:35] LABS: Bedside Glucose 102 mg/dL (70-110)
[2020-08-28] MEDS: Aspirin E.C. 81 MG Tablet PO (07:52)
[2020-08-28] MEDS: Psyllium 1 PACKET PO (07:53)
[2020-08-28 08:22] LABS: Absolute Lymphocyte Count 1.03 X10^3/uL (0.83-4.51); Absolute Neutrophil Count 5.6 X10^3/uL (2.0-7.7); Basophil# 0.03 X10^3/uL; Basophil% 0.4 % (0-1); Eosinophil# 0.01 X10^3/uL; Eosinophils% 0.1 % (0-5); Hematocrit 47.9 % (40-54); Hemoglobin 14.9 g/dL (13.0-16.5); Lymphocyte # 1.03 X10^3/ul (4.0); Lymphocyte % 14.1 % (19-41); Mean Corp Hgb Conc 31.1 g/dL (32-36); Mean Corpuscular Hgb 29.4 pg (27.0-32.0); Mean Corpuscular Volume 94.7 fL (80-94); Mean Platelet Vol. 12.1 fl (6.2-12.0); Monocyte% 8.2 % (0-10); NRBC Flagged by Analyzer 0 % (0-5); Neutrophil % 77.1 % (47-70); Platelet Count 145 K/mm3 (150-450); RBC Distribution Width CV 15.4 % (11.6-14.6); RBC Distribution Width SD 50.8 fl (35.1-43.9); Red Blood Count 5.06 M/mm3 (4.6-6.2); White Blood Count 7.3 K/mm3 (4.4-11.0)
[2020-08-28 08:41] LABS: ALB/GLOB Ratio 0.8 RATIO (0.9-2.4); AST(SGOT) 33 U/L (15-37); Alanine Aminotransfer ALT/SGPT 53 U/L (16-61); Albumin, Serum 2.9 g/dL (3.2-5.0); Alkaline Phosphatase 180 U/L (45-117); Anion Gap 5 (5-15); BUN 48 mg/dL (7-18); BUN/Creat Ratio 26.2 RATIO (10-20); Calcium,Total 9.4 mg/dL (8.5-10.1); Chloride 98 mmol/L (98-107); Creatinine, Serum 1.83 mg/dL (0.70-1.30); EST Glomerular Filtration Rate 38 mL/min (>60); Est Glom Filt Rate - Afr Amer 46 mL/min (>60); Estimated Creatinine Clearance 29.76 ml/min; Globulin 3.6 g/dL (2.2-4.2); Glucose 53 mg/dL (74-106); Potassium 3.3 mmol/L (3.5-5.1); Protein, Total 6.5 g/dL (6.4-8.2); Sodium Level 141 mmol/L (136-145)
--- NOTE | 2020-08-28 09:07 | PCM.PN.PUL ---
Patient Problems: Active and Suspected Problems (Last Reviewed 08/23/20 @ 16:[address] Jason Lemus MD) Septic shock (Acute) Pneumonia (Acute) Elevated troponin (Acute 08/09/20) Acute on chronic systolic and diastolic heart failure, NYHA class 2 (Acute) Acute kidney injury superimposed on chronic kidney disease (Acute) Subjective: Patient transferred out of the intensive care unit. Patient is not requiring any supplemental oxygen and overall feels subjectively unchanged compared to previous. Patient continues to report an overwhelming sense of fatigue. Patient is refusing meals, but has had some supplements. - Physical Exam Vitals/I&O's: Vital Signs Temp Pulse Resp BP Pulse Ox 36.6 C 71 18 99/68 95 08/28/20 03:35 08/28/20 06:35 08/28/20 03:35 08/28/20 03:35 08/28/20 08:06 Oxygen Flow Rate (L/min) 2 Oxygen Delivery Method Room Air Weight: 67.6 kg Body Mass Index (BMI) 22.6 Intake and Output for Last 24 Hours 08/26/20 08/27/20 08/28/20 23:59 23:59 23:59 Intake Total 750 / 810 920.5 / 920.5 545.63 / 545.63 Output Total 1900 / 1900 600 / 600 Balance 750 / 510 -979.5 / -979.5 -54.37 / -54.37 General: Alert, Oriented x3, Cooperative, No apparent distress, - - Flat affect. Conversational, but does appear to struggle to make words HEENT: Atraumatic, PERRLA, EOMI, Normocephalic, - - Slight temporal wasting noted Oral: No Gingival or Mucosal Lesions/ Ulcerations, Dry Mucosa Neck: Supple, No JVD, No Nodes, Trachea Midline Lungs: No rhonchi, No wheeze, No rales, Diminished, - - Symmetric expansion. No dullness to percussion. Cardiovascular: Regular rate, Regular Rhythm, Normal S1, Normal S2, No murmurs, No rub noted, No Gallop Abdomen: Bowel Sounds Present, Soft, Non Tender, Non-Distended Extremities: No clubbing, No cyanosis, No edema Skin: No rashes, No breakdown Musculoskeletal: No Tenderness to Palpation of Joints or Extremities Lymphatic: No Cervical, Supraclavicular, or Inguinal Adenopathy Neurological: Cranial nerves II-XII grossly intact, Neuro grossly intact, Motor Exam 5/5 strength throughout Psych/Mental Status: Flat Affect Microbiology Past 72 Hours 08/26/20 22:35 Mucosa - Nasopharyngeal Respiratory Panel (PCR) - Final 08/27/20 00:15 Urine, Clean Catch Legionella Antigen - Final 08/27/20 00:15 Urine, Clean Catch Streptococcus pneumoniae Antigen (M - Final Laboratory Results 08/27/20 10:59: POC Glucose 138 H 08/27/20 16:20: POC Glucose 149 H 08/27/20 21:44: POC Glucose 114 H 08/28/20 03:22: POC Glucose 75 08/28/20 05:23: POC Glucose 102 08/28/20 08:00: WBC 7.3, RBC 5.06, Hgb 14.9, Hct 47.9, MCV 94.7 H, MCH 29.4, MCHC 31.1 L, RDW Std Deviation 50.8 H, RDW Coeff of Shashank 15.4 H, Plt Count 145 L, MPV 12.1 H, Immature Gran % (Auto) 0.100, Neut % (Auto) 77.1 H, Lymph % (Auto) 14.1 L, [place] % (Auto) 8.2, Eos % (Auto) 0.1, Baso % (Auto) 0.4, Absolute Neuts (auto) 5.6, Absolute Lymphs (auto) 1.03, Nucleated RBC % 0 08/28/20 08:00: Sodium 141, Potassium 3.3 L, Chloride 98, Carbon Dioxide 38.0 H, Anion Gap 5, BUN 48 H, Creatinine 1.83 H, Estim Creat Clear Calc 29.76, Est GFR (MDRD) Af Amer 46 L, Est GFR (MDRD) Non-Af 38 L, BUN/Creatinine Ratio 26.2 H, Glucose 53 L, Calcium 9.4, Total Bilirubin 1.40 H, AST 33, ALT 53, Alkaline Phosphatase 180 H, Total Protein 6.5, Albumin 2.9 L, Globulin 3.6, Albumin/Globulin Ratio 0.8 L Current Medications Acetaminophen (Acetaminophen 325 Mg Tablet) 650 mg PO Q6H PRN PRN PRN Reason: Pain Score 1-10/Temp > 100.7 F Albuterol Sulfate (Albuterol 2.5 Mg/3 Ml Vial.Neb.) 2.5 mg INHALATION Q2H PRN PRN PRN Reason: Dyspnea, wheezing Apixaban (Apixaban 2.5 Mg Tablet) 2.5 mg PO BID [facility] Last Admin: 08/27/20 21:47 Dose: 2.5 mg Documented by: Aspirin (Aspirin E.C. 81 Mg Tablet) 81 mg PO DAILY@0800 [facility] Last Admin: 08/28/20 07:52 Dose: 81 mg Documented by: Diltiazem HCl (Diltiazem Cd 120 Mg Capsule) 120 mg PO DAILY [facility] Duloxetine HCl (Duloxetine Hcl 30 Mg Capsule) 30 mg PO DAILY [facility] Last Admin: 08/27/20 09:30 Dose: 30 mg Documented by: Furosemide (Furosemide 40 Mg/4 Ml Vial) 40 mg IV BID@1000,1800 [facility] Last Admin: 08/27/20 17:50 Dose: 40 mg Documented by: Piperacillin Sod/Tazobactam (Sod 3.375 gm/ Sodium Chloride) 50 mls @ 12.5 mls/hr IV Q8 [facility] Last Admin: 08/28/20 05:25 Dose: 12.5 mls/hr Documented by: Sodium Chloride () 250 mls @ 15 mls/hr IV .[id number] PRN PRN Reason: Saline Flush Last Infusion: 08/28/20 05:26 Dose: 0 mls/hr Documented by: Sodium Chloride () 250 mls @ 15 mls/hr IV .[id number] PRN PRN Reason: Additional IVPB Infusion Insulin Human Lispro (Insulin Lispro 100 Unit/Ml Insuln.Pen) [facility] Protocol Last Admin: 08/28/20 05:24 Dose: Not Given Documented by: Melatonin (Melatonin 3 Mg Tablet) 3 mg PO QHS PRN PRN PRN Reason: INSOMNIA Metoprolol Tartrate (Metoprolol Tartrate 100 Mg Tablet) 100 mg PO BID [facility] Last Admin: 08/27/20 21:47 Dose: 100 mg Documented by: Nitroglycerin (Nitroglycerin (Inpatient Use) 0.4 Mg Tab.Subl) 0.4 mg SUBLINGUAL Q5M PRN PRN Reason: CARDIAC/CHEST PAIN Nutritional Formula (Lactose Free) (Glucerna Shake 120 Ml Liquid) 120 ml PO 4X/DAY [facility] Last Admin: 08/27/20 21:46 Dose: 120 ml Documented by: Ondansetron HCl (Ondansetron 4 Mg/2 Ml Vial) 4 mg IV Q8H PRN PRN PRN Reason: NAUSEA/VOMITING Last Admin: 08/27/20 10:10 Dose: 4 mg Documented by: Oxycodone HCl (Oxycodone 5 Mg Tablet) 5 mg PO Q4H PRN PRN PRN Reason: Pain Score 4-5 Psyllium Hydrophilic Mucilloid (Psyllium 1 Packet) 1 packet PO DAILY PRN PRN PRN Reason: Constipation Last Admin: 08/28/20 07:53 Dose: 1 packet Documented by: Senna/Docusate Sodium (Senna/Docusate Sodium 1 Tablet) 2 tablet PO BID PRN PRN PRN Reason: Constipation Last Admin: 08/27/20 18:48 Dose: 2 tablet Documented by: Sodium Chloride (0.9% Saline Lock 10 Ml Syringe) 10 - 40 ml IV UD PRN PRN Reason: SALINE FLUSH Last Admin: 08/27/20 21:48 Dose: 20 ml Documented by: Clinical Impression(s) from Imaging Studies Chest X-Ray 08/27/20 05:55 IMPRESSION: Small bilateral pleural effusions greater on the left with the left basilar atelectasis and/or infiltrate superimposed on mild degree of CHF Electronically Signed: Manny Valle, at 13:32 EST , Service support , Medical Necessity - Tobacco Use Smoking Status: Never smoker Tobacco Use: Non-smoker Assessment/Plan All Active Problems (Last Reviewed 08/23/20 @ 16:[address] Jason Lemus MD) Septic shock (Acute) Pneumonia (Acute) Edema (Acute) Nausea (Acute) Elevated troponin (Acute 08/09/20) Acute on chronic systolic and diastolic heart failure, NYHA class 2 (Acute) Acute kidney injury superimposed on chronic kidney disease (Acute) Acute respiratory failure with hypoxemia (Resolved) Amiodarone toxicity (Resolved) Dyspnea (Resolved) Dyspnea on exertion (Resolved) Nausea and vomiting (Resolved) Shortness of breath (Resolved) RECOMMENDATIONS: 1. Continue diuresis as tolerated 2. Walking oximetry prior to discharge 3. Consider cardiology consultation 4. Likely discontinue antibiotics at 48 hours when cultures negative 5. Increase activity as tolerated 6. Consider work-up for occult malignancy as an outpatient 7. Hemodynamically stable on room air. Will sign off from a critical care/pulmonary perspective IMPRESSIONS: 1. Acute on chronic combined CHF Patient with significantly elevated BNP and multiple comorbid cardiology conditions. Recommend obtaining cardiology consult. Discontinuation of IV fluids and active diuresis would be indicated. Patient does have extensive lower extremity edema and would benefit from lymphedema recommendations. Patient has had multiple admissions over the last 6 months. Unclear if patient's overwhelming sense of fatigue is secondary to progression of congestive heart failure versus a possible occult malignancy. This could be investigated as an outpatient. Patient has had a CTA of the chest and of the head in the last year that showed no masses. 2. Elevated lactate and LFTs, likely secondary to hypoxia secondary to #1 Clinical suspicion for elevated lactate secondary to hypoxia on presentation and congestion related to problem #1. Reasonable to continue with empiric antibiotics for now, but clinical suspicion for acute infectious etiology is low at this time. Anticipate discontinuation of antibiotics at 48 hours if culture negative. 3. Acute kidney injury on CKD stage III Patient with improvement in renal function following diuresis. This would be suggestive of prerenal etiology secondary to decreased cardiac output with volume overload. Would recommend continuing diuretic therapy for now. Continue to monitor electrolytes. Potassium supplementation has been ordered 4. History of tachybradycardia syndrome/CAD/chronic A. fib status post pacemaker Patient with complex cardiac history. Unclear if the repeat echocardiogram is really necessary at this point. Patient would likely benefit from cardiology evaluation. Continue with current medications. Patient with a paced rhythm at this time. 5. Advanced age/hypertension/hyperlipidemia/anxiety/depression/history of prostate cancer Complicates care, management, recovery and prognosis. Okay to continue with baseline medications from my perspective. Patient with multiple admissions over the last 3 months. Consider palliative care evaluation. Inpatient E&M: [id number] [facility] Hosp L2
[2020-08-28] MEDS: APIXABAN 2.5 MG TABLET PO ×2 (09:45→21:36)
[2020-08-28] MEDS: DULoxetine Hcl 30 MG Capsule PO (09:46)
[2020-08-28] MEDS: dilTIAZem CD 120 MG Capsule PO (09:46)
[2020-08-28] MEDS: Furosemide 40 MG/4 ML Vial IV (09:46)
[2020-08-28] MEDS: Metoprolol Tartrate 100 MG Tablet PO ×2 (09:46→21:27)
[2020-08-28] MEDS: 0.9% Saline Lock 10 ML Syringe IV ×2 (09:47→21:30)
--- NOTE | 2020-08-28 10:45 | CASEMGMT ---
Addendum entered by Azucena Cummins 08/28/20 15:23: Son spoke with pt and he still would prefer to go home at this time, but son states 'I think he just wants me to make the decision for him.' Son states that he is agreeable to whatever is in the best interest of pt. This RN CM to room to speak with pt again and pt provided with list of in-network care home facilities. Pt is still stating he would prefer to go home at this time and states 'I wish my kids would just come together and make the decision for me.' Pt states that 'maybe I just need someone to check in a couple times/week.' Advised pt that he already has [facility] SN [facility]OT and [facility] checking in with him multiple times per week, voices understanding. Pt again c/o difficulty getting around at home and lack of appetite. Pt is pleasant and joking at times with this RN CM. Pt is more alert than this am. This RN CM advised pt that will check back tomorrow, pt voices understanding and states he will think it over tonight. Son updated at this time and states that he will discuss all with his sister and mother later to see if they can come up with best plan for pt on their end. Cristobal at [facility] updated on all at this time, voices understanding. SStaten RN CM Original Note: This RN CM to room to discuss discharge plan for pt at this time. Pt has had multiple admissions in the last several months. Pt is currently active with [facility] and [facility] simultaneously. Pt was supposed to have appt with palliative care yesterday but pt was readmitted. This RN CM discussed/explained palliative/hospice with pt at this time as he was unclear on what palliative was. Pt states to this RN CM 'My expects me to help care for her when I get home and I can't even take care of myself.' Pt c/o no energy and no appetite at home. Pt states 'Well, I would prefer to go home' but then states in the same sentence that he can't care for himself at home again. Pt states 'I just need to get some strength back before I go home.' This RN CM asked pt about going to SNF for rehab, pt did not decline but did state 'I would prefer to go home.' While this RN CM was discussing all with pt, pt could barely keep eyes open while sitting in chair. Pt's BP is 115/64 at this time and sat is 94% on room air at this time. Khloe DUNLAP updated and states will check pt's sugar at this time. Pt states he would like this RN MASSIEL to call son, Watson Luz, at this time to 'get his opinion on it.' Call to son, Msaon, at this time and updated on conversation with pt at this time, voices understanding. Son states he would like to give his dad a call in a bit to discuss with him and then will call this GERMÁN RANKIN back. Per son, pt's has slight dementia and limited vision. List of in-network SNF's to be obtained for pt and Naif NASH aware of all, voices understanding. Isaias DUNLAP CM
[2020-08-28 11:01] LABS: Bedside Glucose 75 mg/dL (70-110)
[2020-08-28 13:05] LABS: Bedside Glucose 123 mg/dL (70-110)
[2020-08-28] MEDS: Glucerna Shake 120 ML LIQUID PO (13:23)
[2020-08-28 16:51] LABS: Bedside Glucose 159 mg/dL (70-110)
--- NOTE | 2020-08-28 16:53 | PCM.PROGNOTE ---
Patient Problems: Active and Suspected Problems (Last Reviewed 08/23/20 @ 16:[address] Jason Lemus MD) Septic shock (Acute) Pneumonia (Acute) Elevated troponin (Acute 08/09/20) Acute on chronic systolic and diastolic heart failure, NYHA class 2 (Acute) Acute kidney injury superimposed on chronic kidney disease (Acute) Subjective: Patient was seen and examined today, he still remains on room air, he states he is fatigued and tired. I asked the patient if he would consider a short-term stay in a assisted facility for rehab services, he says he does want to do that at this time but he would consider it if I really thought it would benefit him-I told him I felt it would be a good idea. He told case management that he would reconsider whether to go to a skilled facility short-term and give an answer tomorrow. - Physical Exam Vitals/I&O's: Vital Signs Temp Pulse Resp BP Pulse Ox 97.9 F 75 18 109/64 95 08/28/20 15:35 08/28/20 15:35 08/28/20 15:35 08/28/20 15:35 08/28/20 15:35 Oxygen Flow Rate (L/min) 2 Oxygen Delivery Method Room Air Weight: 67.6 kg Body Mass Index (BMI) 22.6 Intake and Output for Last 24 Hours 08/26/20 08/27/20 08/28/20 23:59 23:59 23:59 Intake Total 750 / 810 920.5 / 920.5 835.63 / 835.63 Output Total 1900 / 1900 900 / 900 Balance 750 / 510 -979.5 / -979.5 -64.37 / -64.37 General: Alert, Oriented x3, Cooperative, No apparent distress, Well developed, Well nourished, - - Patient appears fatigued HEENT: Atraumatic, PERRLA, EOMI, Normocephalic Oral: Moist Mucosa Neck: Supple, Trachea Midline, Thyroid Normal Size and Texture Lungs: Clear to auscultation, Normal air movement Cardiovascular: Normal S1, Normal S2, No murmurs, PMI Normal, Irregular Rate, No rub noted, No Gallop Abdomen: Bowel Sounds Present, Soft, Non Tender, Non-Distended, No hernias noted Extremities: No clubbing, No cyanosis, Capillary Refill Less than 3 Seconds Skin: No rashes, No breakdown Musculoskeletal: No Tenderness to Palpation of Joints or Extremities Neurological: Cranial nerves II-XII grossly intact, Neuro grossly intact, Sensory exam intact to light touch and pain, Coordination normal Psych/Mental Status: Appropriate, Flat Affect Microbiology Past 72 Hours 08/26/20 22:35 Mucosa - Nasopharyngeal Respiratory Panel (PCR) - Final 08/27/20 00:15 Urine, Clean Catch Legionella Antigen - Final 08/27/20 00:15 Urine, Clean Catch Streptococcus pneumoniae Antigen (M - Final Laboratory Results 08/27/20 21:44: POC Glucose 114 H 08/28/20 03:22: POC Glucose 75 08/28/20 05:23: POC Glucose 102 08/28/20 08:00: WBC 7.3, RBC 5.06, Hgb 14.9, Hct 47.9, MCV 94.7 H, MCH 29.4, MCHC 31.1 L, RDW Std Deviation 50.8 H, RDW Coeff of Shashank 15.4 H, Plt Count 145 L, MPV 12.1 H, Immature Gran % (Auto) 0.100, Neut % (Auto) 77.1 H, Lymph % (Auto) 14.1 L, [place] % (Auto) 8.2, Eos % (Auto) 0.1, Baso % (Auto) 0.4, Absolute Neuts (auto) 5.6, Absolute Lymphs (auto) 1.03, Nucleated RBC % 0 08/28/20 08:00: Sodium 141, Potassium 3.3 L, Chloride 98, Carbon Dioxide 38.0 H, Anion Gap 5, BUN 48 H, Creatinine 1.83 H, Estim Creat Clear Calc 29.76, Est GFR (MDRD) Af Amer 46 L, Est GFR (MDRD) Non-Af 38 L, BUN/Creatinine Ratio 26.2 H, Glucose 53 L, Calcium 9.4, Total Bilirubin 1.40 H, AST 33, ALT 53, Alkaline Phosphatase 180 H, Total Protein 6.5, Albumin 2.9 L, Globulin 3.6, Albumin/Globulin Ratio 0.8 L 08/28/20 10:44: POC Glucose 75 08/28/20 12:15: POC Glucose 123 H 08/28/20 16:29: POC Glucose 159 H Current Medications Acetaminophen (Acetaminophen 325 Mg Tablet) 650 mg PO Q6H PRN PRN PRN Reason: Pain Score 1-10/Temp > 100.7 F Albuterol Sulfate (Albuterol 2.5 Mg/3 Ml Vial.Neb.) 2.5 mg INHALATION Q2H PRN PRN PRN Reason: Dyspnea, wheezing Apixaban (Apixaban 2.5 Mg Tablet) 2.5 mg PO BID [facility] Last Admin: 08/28/20 09:45 Dose: 2.5 mg Documented by: Aspirin (Aspirin E.C. 81 Mg Tablet) 81 mg PO DAILY@0800 [facility] Last Admin: 08/28/20 07:52 Dose: 81 mg Documented by: Diltiazem HCl (Diltiazem Cd 120 Mg Capsule) 120 mg PO DAILY [facility] Last Admin: 08/28/20 09:46 Dose: 120 mg Documented by: Duloxetine HCl (Duloxetine Hcl 30 Mg Capsule) 30 mg PO DAILY [facility] Last Admin: 08/28/20 09:46 Dose: 30 mg Documented by: Furosemide (Furosemide 40 Mg/4 Ml Vial) 40 mg IV BID@1000,1800 [facility] Last Admin: 08/28/20 09:46 Dose: 40 mg Documented by: Piperacillin Sod/Tazobactam (Sod 3.375 gm/ Sodium Chloride) 50 mls @ 12.5 mls/hr IV Q8 [facility] Last Admin: 08/28/20 13:23 Dose: 12.5 mls/hr Documented by: Sodium Chloride () 250 mls @ 15 mls/hr IV .[id number] PRN PRN Reason: Saline Flush Last Infusion: 08/28/20 05:26 Dose: 0 mls/hr Documented by: Sodium Chloride () 250 mls @ 15 mls/hr IV .[id number] PRN PRN Reason: Additional IVPB Infusion Insulin Human Lispro (Insulin Lispro 100 Unit/Ml Insuln.Pen) 0 unit SC ACHS [facility]; Protocol Last Admin: 08/28/20 10:56 Dose: Not Given Documented by: Melatonin (Melatonin 3 Mg Tablet) 3 mg PO QHS PRN PRN PRN Reason: INSOMNIA Metoprolol Tartrate (Metoprolol Tartrate 100 Mg Tablet) 100 mg PO BID [facility] Last Admin: 08/28/20 09:46 Dose: 100 mg Documented by: Nitroglycerin (Nitroglycerin (Inpatient Use) 0.4 Mg Tab.Subl) 0.4 mg SUBLINGUAL Q5M PRN PRN Reason: CARDIAC/CHEST PAIN Nutritional Formula (Lactose Free) (Glucerna Shake 120 Ml Liquid) 120 ml PO 4X/DAY [facility] Last Admin: 08/28/20 13:23 Dose: 120 ml Documented by: Ondansetron HCl (Ondansetron 4 Mg/2 Ml Vial) 4 mg IV Q8H PRN PRN PRN Reason: NAUSEA/VOMITING Last Admin: 08/27/20 10:10 Dose: 4 mg Documented by: Oxycodone HCl (Oxycodone 5 Mg Tablet) 5 mg PO Q4H PRN PRN PRN Reason: Pain Score 4-5 Potassium Chloride (Potassium Chloride 20 Meq Tablet) 20 meq PO BIDCM [facility] Stop: 08/28/20 17:01 Last Admin: 08/28/20 09:46 Dose: 20 meq Documented by: Psyllium Hydrophilic Mucilloid (Psyllium 1 Packet) 1 packet PO DAILY PRN PRN PRN Reason: Constipation Last Admin: 08/28/20 07:53 Dose: 1 packet Documented by: Senna/Docusate Sodium (Senna/Docusate Sodium 1 Tablet) 2 tablet PO BID PRN PRN PRN Reason: Constipation Last Admin: 08/27/20 18:48 Dose: 2 tablet Documented by: Sodium Chloride (0.9% Saline Lock 10 Ml Syringe) 10 - 40 ml IV UD PRN PRN Reason: SALINE FLUSH Last Admin: 08/28/20 09:47 Dose: 10 ml Documented by: Medical Necessity - Tobacco Use Smoking Status: Never smoker Tobacco Use: Non-smoker Assessment/Plan All Active Problems (Last Reviewed 08/23/20 @ 16:[address] Jason Lemus MD) Septic shock (Acute) Pneumonia (Acute) Edema (Acute) Nausea (Acute) Elevated troponin (Acute 08/09/20) Acute on chronic systolic and diastolic heart failure, NYHA class 2 (Acute) Acute kidney injury superimposed on chronic kidney disease (Acute) Acute respiratory failure with hypoxemia (Resolved) Amiodarone toxicity (Resolved) Dyspnea (Resolved) Dyspnea on exertion (Resolved) Nausea and vomiting (Resolved) Shortness of breath (Resolved) #1 acute on chronic systolic CHF-I have decided to change the patient to oral Lasix at this time #2 elevated lactic acid-secondary to hypoxia #3 acute kidney injury on a backdrop of chronic kidney disease stage III #4 chronic atrial fibrillation with occasional paced rhythm #5 hyperlipidemia #6 atherosclerotic heart disease-stable #7 ischemic cardiomyopathy #8 essential hypertension #9 chronic debility-patient will consider going to an extended care facility and let us know tomorrow. Inpatient E&M: [id number] Subs Hosp L2
[2020-08-28] MEDS: Furosemide 20 MG Tablet 60 MG PO (17:38)
[2020-08-28 23:05] LABS: Bedside Glucose 138 mg/dL (70-110)
[2020-08-29] VITALS (13 sets, daily range): BP systolic 114–117; BP diastolic 59–71; PULSE 69–78; RESP 16–19; TEMP 36.2–36.4; O2SAT 93–99
[2020-08-29] MEDS: Ondansetron 4 MG/2 ML Vial IV (00:24)
[2020-08-29] MEDS: 0.9% Saline Lock 10 ML Syringe IV (06:31)
[2020-08-29 06:50] LABS: Bedside Glucose 122 mg/dL (70-110)
[2020-08-29] MEDS: APIXABAN 2.5 MG TABLET PO ×2 (09:36→22:25)
[2020-08-29] MEDS: Aspirin E.C. 81 MG Tablet PO (09:36)
[2020-08-29] MEDS: dilTIAZem CD 120 MG Capsule PO (09:36)
[2020-08-29] MEDS: Metoprolol Tartrate 100 MG Tablet PO ×2 (09:36→22:26)
[2020-08-29] MEDS: DULoxetine Hcl 30 MG Capsule PO (09:37)
[2020-08-29] MEDS: Furosemide 80 MG Tablet PO (09:37)
--- NOTE | 2020-08-29 10:02 | CASEMGMT ---
RN MASSIEL spoke with patient and he would like to go to [facility]. SW called Carol on referral phone and let her know about referral. She will look over patient and start pre-cert. Nichol MCDANIEL
--- NOTE | 2020-08-29 10:02 | CASEMGMT ---
Addendum entered by Azucena Cummins 08/29/20 13:37: This RN CM spoke with pt's son and is he is aware that pt decided to go to TCU and that precert has been started. All sons questions answered at this time. Per son, his mother and sister are also on the same page with TCU discharge. This RN CM will notify son when precert obtained. Son voices no further questions/concerns/needs at this time. Isaias DUNLAP CM Original Note: Per therapy, they are recommending SNF for pt at this time and they state they did mention to pt while in there. This RN CM back to room to talk to pt regarding discharge plan at this time. Pt states that he and son came to a decision last pm and pt states 'I think I need to stay here in the TCU.' Naif SW aware, voices understanding and notified Carol in TCU at this time. Pt will need a precert. Per pt, his son stated he will be calling this RN CM this morning. This RN CM told pt if don't here from him soon, then will give him a call. Pt states 'I know I need to get some strength back before I go home, I don't want to be handicapped and not be able to do what I need to do.' Pt voices no further questions/concerns/needs at this time. Cristobal at [facility] and Lashell at [facility] updated at this time, voice understanding. Isaias DUNLAP CM
[2020-08-29 11:50] LABS: Bedside Glucose 146 mg/dL (70-110)
[2020-08-29] MEDS: Glucerna Shake 120 ML LIQUID PO (14:55)
[2020-08-29] MEDS: Furosemide 20 MG Tablet 60 MG PO (17:07)
[2020-08-29] MEDS: Insulin Lispro 100 UNIT/ML INSULN.PEN SC ×2 (17:11→22:25)
[2020-08-29 17:25] LABS: Bedside Glucose 207 mg/dL (70-110)
--- NOTE | 2020-08-29 18:45 | PN_ITS ---
Patient Problems: Active and Suspected Problems (Last Reviewed 08/23/20 @ 16:[address] Jason Lemus MD) Septic shock (Acute) Pneumonia (Acute) Elevated troponin (Acute 08/09/20) Acute on chronic systolic and diastolic heart failure, NYHA class 2 (Acute) Acute kidney injury superimposed on chronic kidney disease (Acute) Subjective: Doing well, no new issues overnight. He has decided that he would [facility] a [facility] Vitals/I&O's: Vital Signs Temp Pulse Resp BP Pulse Ox 97.1 F L 78 16 116/71 95 08/29/20 14:00 08/29/20 15:00 08/29/20 14:00 08/29/20 14:00 08/29/20 14:00 Oxygen Flow Rate (L/min) 2 Oxygen Delivery Method Room Air Weight: 146 lb 9.718 oz Body Mass Index (BMI) 22.6 Intake and Output for Last 24 Hours 08/27/20 08/28/20 08/29/20 23:59 23:59 23:59 Intake Total 920.5 / 920.5 1125.63 / 1125.63 580 / 580 Output Total 1900 / 1900 1200 / 1400 1025 / 1025 Balance -979.5 / -979.5 -74.37 / -274.37 -445 / -445 General: Alert, Oriented x3, Cooperative, No apparent distress HEENT: Atraumatic, PERRLA, EOMI, Normocephalic Oral: Moist Mucosa Neck: Supple, No JVD Lungs: Clear to auscultation, Normal air movement, No rhonchi, No wheeze, No rales Cardiovascular: Regular rate, Regular Rhythm, Normal S1, Normal S2, No murmurs Abdomen: Soft, Non Tender, Non-Distended, No Hepato-splenomegaly Extremities: Capillary Refill Less than 3 Seconds, Edema - Trace bilateral pitting Skin: No rashes, No breakdown Neurological: Neuro grossly intact, Sensory exam intact to light touch and pain Psych/Mental Status: Appropriate, Flat Affect Microbiology Past 72 Hours 08/26/20 19:40 Blood Culture (Wb) - Left Forearm Blood Culture - Preliminary No growth in 48 hours. 08/26/20 17:55 Blood Culture (Wb) - Anticubital Right Blood Culture - Preliminary No growth in 48 hours. 08/26/20 22:35 Mucosa - Nasopharyngeal Respiratory Panel (PCR) - Final 08/27/20 00:15 Urine, Clean Catch Legionella Antigen - Final 08/27/20 00:15 Urine, Clean Catch Streptococcus pneumoniae Antigen (M - Final Laboratory Results 08/28/20 21:33: POC Glucose 138 H 08/29/20 06:30: POC Glucose 122 H 08/29/20 11:33: POC Glucose 146 H 08/29/20 17:05: POC Glucose 207 H Current Medications Acetaminophen (Acetaminophen 325 Mg Tablet) 650 mg PO Q6H PRN PRN PRN Reason: Pain Score 1-10/Temp > 100.7 F Albuterol Sulfate (Albuterol 2.5 Mg/3 Ml Vial.Neb.) 2.5 mg INHALATION Q2H PRN PRN PRN Reason: Dyspnea, wheezing Apixaban (Apixaban 2.5 Mg Tablet) 2.5 mg PO BID [facility] Last Admin: 08/29/20 09:36 Dose: 2.5 mg Documented by: Aspirin (Aspirin E.C. 81 Mg Tablet) 81 mg PO DAILY@0800 [facility] Last Admin: 08/29/20 09:36 Dose: 81 mg Documented by: Diltiazem HCl (Diltiazem Cd 120 Mg Capsule) 120 mg PO DAILY [facility] Last Admin: 08/29/20 09:36 Dose: 120 mg Documented by: Duloxetine HCl (Duloxetine Hcl 30 Mg Capsule) 30 mg PO DAILY [facility] Last Admin: 08/29/20 09:37 Dose: 30 mg Documented by: Furosemide (Furosemide 80 Mg Tablet) 80 mg PO DAILY [facility] Last Admin: 08/29/20 09:37 Dose: 80 mg Documented by: Furosemide (Furosemide 20 Mg Tablet) 60 mg PO 1800 [facility] Last Admin: 08/29/20 17:07 Dose: 60 mg Documented by: Piperacillin Sod/Tazobactam (Sod 3.375 gm/ Sodium Chloride) 50 mls @ 12.5 mls/hr IV Q8 [facility] Last Admin: 08/29/20 14:55 Dose: 12.5 mls/hr Documented by: Sodium Chloride () 250 mls @ 15 mls/hr IV .[id number] PRN PRN Reason: Saline Flush Last Infusion: 08/28/20 05:26 Dose: 0 mls/hr Documented by: Sodium Chloride () 250 mls @ 15 mls/hr IV .[id number] PRN PRN Reason: Additional IVPB Infusion Insulin Human Lispro (Insulin Lispro 100 Unit/Ml Insuln.Pen) 0 unit SC [facility]; Protocol Last Admin: 08/29/20 17:11 Dose: 2 units Documented by: Melatonin (Melatonin 3 Mg Tablet) 3 mg PO QHS PRN PRN PRN Reason: INSOMNIA Metoprolol Tartrate (Metoprolol Tartrate 100 Mg Tablet) 100 mg PO BID [facility] Last Admin: 08/29/20 09:36 Dose: 100 mg Documented by: Nitroglycerin (Nitroglycerin (Inpatient Use) 0.4 Mg Tab.Subl) 0.4 mg SUBLINGUAL Q5M PRN PRN Reason: CARDIAC/CHEST PAIN Nutritional Formula (Lactose Free) (Glucerna Shake 120 Ml Liquid) 120 ml PO 4X/DAY [facility] Last Admin: 08/29/20 17:07 Dose: Not Given Documented by: Ondansetron HCl (Ondansetron 4 Mg/2 Ml Vial) 4 mg IV Q8H PRN PRN PRN Reason: NAUSEA/VOMITING Last Admin: 08/29/20 00:24 Dose: 4 mg Documented by: Oxycodone HCl (Oxycodone 5 Mg Tablet) 5 mg PO Q4H PRN PRN PRN Reason: Pain Score 4-5 Psyllium Hydrophilic Mucilloid (Psyllium 1 Packet) 1 packet PO DAILY PRN PRN PRN Reason: Constipation Last Admin: 08/28/20 07:53 Dose: 1 packet Documented by: Senna/Docusate Sodium (Senna/Docusate Sodium 1 Tablet) 2 tablet PO BID PRN PRN PRN Reason: Constipation Last Admin: 08/27/20 18:48 Dose: 2 tablet Documented by: Sodium Chloride (0.9% Saline Lock 10 Ml Syringe) 10 - 40 ml IV UD PRN PRN Reason: SALINE FLUSH Last Admin: 08/29/20 06:31 Dose: 10 ml Documented by: STROKE Vital Signs/Narrative: Vital Signs Pulse 08/29/20 15:00 78 Medical Necessity - Tobacco Use Smoking Status: Never smoker Tobacco Use: Non-smoker Assessment/Plan All Active Problems (Last Reviewed 08/23/20 @ 16:[address] Jason Lemus MD) Septic shock (Acute) Pneumonia (Acute) Edema (Acute) Nausea (Acute) Elevated troponin (Acute 08/09/20) Acute on chronic systolic and diastolic heart failure, NYHA class 2 (Acute) Acute kidney injury superimposed on chronic kidney disease (Acute) Acute respiratory failure with hypoxemia (Resolved) Amiodarone toxicity (Resolved) Dyspnea (Resolved) Dyspnea on exertion (Resolved) Nausea and vomiting (Resolved) Shortness of breath (Resolved) 1. Sepsis has been ruled out, acute on chronic HFrEF/elevated lactic acid secondary to hypoxia/CATE on CKD 3/chronic A. fib status post pacemaker HTN/HLD/CAD post CABG -Initially an elevated lactic acid and was thought to be secondary to sepsis however there is been no source of infection -He recently had an echo with an EF of 30% at the end of July -Continue with diuresis, creatinine has slowly been improving from 2.39 down to 1.83 we will continue to monitor -Troponins have been elevated but indeterminate, and he denies any chest pain -BNP on admission was over 5000 -Continue with Eliquis, aspirin, Cardizem, Lasix 2. Debility, inability to complete ADLs -Continue to work with PT/OT -We will obtain pre-CERT for SNF placement 3. Anxiety/depression -Stable -Continue with Cymbalta DVT: Eliquis Inpatient E&M: 24810 Subs Hosp L2
[2020-08-29 22:35] LABS: Bedside Glucose 172 mg/dL (70-110)
[2020-08-30] VITALS (13 sets, daily range): BP systolic 97–112; BP diastolic 57–71; PULSE 62–76; RESP 15–18; TEMP 35.9–36.5; O2SAT 96–100
[2020-08-30 07:00] LABS: Bedside Glucose 126 mg/dL (70-110)
[2020-08-30 07:21] LABS: Anion Gap 6 (5-15); BUN 43 mg/dL (7-18); BUN/Creat Ratio 26.4 RATIO (10-20); Calcium,Total 8.8 mg/dL (8.5-10.1); Chloride 95 mmol/L (98-107); Creatinine, Serum 1.63 mg/dL (0.70-1.30); EST Glomerular Filtration Rate 43 mL/min (>60); Est Glom Filt Rate - Afr Amer 52 mL/min (>60); Estimated Creatinine Clearance 33.56 ml/min; Glucose 126 mg/dL (74-106); Potassium 2.8 mmol/L (3.5-5.1); Sodium Level 138 mmol/L (136-145)
[2020-08-30] MEDS: APIXABAN 2.5 MG TABLET PO (08:21)
[2020-08-30] MEDS: Furosemide 80 MG Tablet PO (08:21)
[2020-08-30] MEDS: Aspirin E.C. 81 MG Tablet PO (08:21)
[2020-08-30] MEDS: DULoxetine Hcl 30 MG Capsule PO (08:21)
[2020-08-30] MEDS: dilTIAZem CD 120 MG Capsule PO (08:21)
[2020-08-30] MEDS: Potassium Chloride 10mEq/100mL 10 MEQ/100 ML IV.SOLN. 100 MEQ IV BOLUS ×3 (10:15→12:46)
[2020-08-30 10:27] LABS: Magnesium 1.9 mg/dL (1.6-2.6); Phosphorus 3.3 mg/dL (2.5-4.9)
[2020-08-30] MEDS: Metoprolol Tartrate 100 MG Tablet PO (10:30)
--- NOTE | 2020-08-30 10:54 | CASEMGMT ---
This RN CM to room to notify pt that precert has been obtained for him to go to TCU at this time. Per Dr. Pollock, pt will need K+ replacement prior to going to TCU today. Pt c/o being tired today but states did not sleep well last pm. Pt is concerned about how much he will need to do once he gets to TCU today. This RN CM advised him that by the time he gets over there later today, he will most likely not need to do therapy today, voiced understanding. Pt states he is going to try and take a nap at this time. Pt's son, Mason Luz, is updated on all at this time as well, voices understanding. Mason states he will be dropping some clothes off later today for pt at main entrance and this RN CM advised him to have them clearly marked. Tanvi DUNLAP updated on all, voices understanding. Pt voices no further questions/concerns/needs at this time. Isaias DUNLAP CM
[2020-08-30 12:01] LABS: Bedside Glucose 136 mg/dL (70-110)
--- NOTE | 2020-08-30 13:28 | PCM.TXEXTCAR ---
- Diet 08/27/20 09:29 Diet: Carbohydrate Controlled Food consistency:: Regular Liquid Consistency:: Regular/Thin Dietary Modifications:: Sodium Restricted Is pt able to select menu?: No - Routine Orders/Code Status Routine Lab Work: [facility] Code Status: Full Code - Wound(s) right groin Wound Type: Surgical Incision - Therapies Physical Therapy: Eval and Treat Occupational Therapy: Eval and Treat - Allergies/Procedures Done in Hospital Allergies/Adverse Reactions: Allergies spironolactone Allergy (Verified 08/26/20 16:54) severe weakness lisinopril Adverse Reaction (Mild, Verified 08/26/20 16:54) Dry cough amiodarone Adverse Reaction (Verified 08/26/20 16:54) toxicity - Type of Care/Length of Stay Estimated LOS: Convalescent Care Less Than 30 days Type of Care Needed: Skilled Rehab Potential: Good Prognosis: Good - Additional Orders/Day of Discharge Day of Discharge: 08/30/20 - Dietary and Speech Recommendations Dietitian Recommendations/Changes: Continue CHO Control w/ sodium restriction--add FR as indicated. Will d/c glucerna shake w/ medpass and change to BID w/ meals instead of TID w/ meals per pt request. - Follow Up Care Primary Care Physician: Abdoulaye Brock MD [Primary Care Provider] - Please follow up with your Primary Care Physician in: 3-5 days
--- NOTE | 2020-08-30 14:00 | PHA.DC.MR ---
Pharmacy Service has performed discharge medication reconciliation for this patient. The patient's discharge medication list was reviewed for discrepancies and discrepancies were resolved. Home Medications cholecalciferol (vitamin D3) 125 mcg (5,000 unit) capsule 5,000 unit PO DAILY 02/16/19 Apixaban [Eliquis] 2.5 mg PO BID 07/17/20 Aspirin E.C. [Ecotrin] 81 mg PO DAILY@0800 07/17/20 Glimepiride [Amaryl] 2 mg PO DAILY 07/17/20 Duloxetine Hcl [Cymbalta] 30 mg PO DAILY 08/09/20 Glucerna Shake 120 ml PO 4X/DAY 30 Days #120 liquid 08/17/20 Metoprolol Tartrate [Lopressor (beta kelsey)] 100 mg PO BID 30 Days #60 tab 08/17/20 Potassium Chloride 10 meq PO BID 08/21/20 Diltiazem CD [Cardizem CD] 120 mg PO DAILY cap 08/30/20 Furosemide [Lasix] 60 mg PO DAILY 30 Days #90 tab 08/30/20
[2020-08-30] MEDS: Insulin Lispro 100 UNIT/ML INSULN.PEN SC (16:57)
[2020-08-30] MEDS: Furosemide 40 MG Tablet 60 MG PO (16:57)
[2020-08-30 17:06] LABS: Bedside Glucose 216 mg/dL (70-110)
--- NOTE | 2020-08-30 17:19 | PCM.DC.SUM ---
Discharge Date and Diagnosis - Problem List Patient Problems: Active and Suspected Problems (Last Reviewed 08/23/20 @ 16:[address] Jason Lemus MD) Septic shock (Acute) Pneumonia (Acute) Elevated troponin (Acute 08/09/20) Acute on chronic systolic and diastolic heart failure, NYHA class 2 (Acute) Acute kidney injury superimposed on chronic kidney disease (Acute) Date of Admission: 08/26/20 Date of Discharge: 08/30/20 - Primary Discharge Diagnosis Acute Problems: Active Problems (Last Reviewed 08/23/20 @ 16:[address] Jason Lemus MD) Septic shock (Acute) Pneumonia (Acute) Elevated troponin (Acute 08/09/20) Acute on chronic systolic and diastolic heart failure, NYHA class 2 (Acute) Acute kidney injury superimposed on chronic kidney disease (Acute) - Secondary Discharge Diagnosis Chronic Problems: Chronic Problems (Last Reviewed 08/23/20 @ 16:[address] 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 Atrial fibrillation with rapid ventricular response (Chronic 08/09/20) Bradycardia (Chronic) Atherosclerosis of coronary artery of [place] heart with angina pectoris (Chronic) History of non-ST elevation myocardial infarction (NSTEMI) (Chronic 05/2017) 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) CABG x 4: COLES-LAD, SVG-D1, SVG to proximal end of SVG to diagonal going to OM 2, and SVG-RPDA 10/30/16 Ischemic cardiomyopathy (Chronic) Secondary pulmonary arterial hypertension (Chronic) Left bundle branch block (LBBB) (Chronic) Essential (primary) hypertension (Chronic) Hyperlipidemia (Chronic) Hospital Course and Treatment Imaging Results: Clinical Impression(s) from Imaging Studies Chest X-Ray 08/26/20 17:21 IMPRESSION: 1. Stable CHF with lower lobe pulmonary edema and trace effusions. Given asymmetry at the left lung base, superimposed pneumonia is possible. Electronically Signed: Ramos Lorenz MD (Brooks) at 18:17 EST , Service support , Brain CT 08/26/20 23:38 IMPRESSION: No acute intracranial abnormality. Chronic involutional and white matter changes. Individualized dose optimization techniques were used for this CT. at 0009 Reported and signed by: Flory Powell MD Electronically Signed: Flory Powell MD at 0:09 EST Tel , Service support , Chest X-Ray 08/27/20 05:55 IMPRESSION: Small bilateral pleural effusions greater on the left with the left basilar atelectasis and/or infiltrate superimposed on mild degree of CHF Electronically Signed: Manny Valle, at 13:32 EST , Service support , Consults: Pulmonology Operations: None Procedures: None Summary of Care Provided: Per HPI: The patient is an 80 y/o M w/ PMHx: CKD stage III, CAD s/p CABG x 4, HTN, HLD, PAF, Chronic systolic and diastolic CHF/Ischemic cardiomyopathy, Diabetes mellitus type II, Hx Prostate CA, recent admission with placement 08/17/20 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 He notes mild cough but denies any marked dyspnea complaint. He does note BL LE edema, but states not worsened. He is laying flat in the bed. In the ED patient once fallen asleep had notable hypoxia in the 80s. Work-up in the ED included T 96, heart rate 109, BP 130/70, respiratory rate 16, 98% on room air, CBC with WBC 11.3, hemoglobin 16.1, platelet 204 with left shift, coags with PT 20.1, INR 1.8, PTT 32.9, CMP with chloride 95, BUN/creatinine 57/2.39, glucose 271, lactic acid 4.4, total bilirubin 2.60, direct bilirubin 1.37, AST/ALT 91/81, alk phos 277, troponin 0 0.552, lipase 67, digoxin 1.35, BNP pending, EKG with chronic atrial fibrillation without acute evidence of ischemia, blood culture x2 pending per ED, chest x-ray with stable CHF with lower lobe pneumonia edema evidence of prior CABG, central pulmonary vascular congestion with interstitial opacities with localized opacity left lung base with stable CHF with superimposed pneumonia possibly. Hospital Course: 1. Sepsis has been ruled out, acute on chronic HFrEF/elevated lactic acid secondary to hypoxia/CATE on CKD 3/chronic A. fib status post pacemaker HTN/HLD/CAD post CABG -Initially an elevated lactic acid and was thought to be secondary to sepsis however there is been no source of infection, and his Zosyn was discontinued since all cultures have been negative -He recently had an echo with an EF of 30% at the end of July -Continue with diuresis, creatinine has slowly been improving from 2.39 down to 1.63 which is baseline, however his potassium today was 2.8 and was replaced with 40 milliequivalents p.o. and 30 mEq IV -Troponins have been elevated but indeterminate, and he denies any chest pain -BNP on admission was over 5000 -Continue with Eliquis, aspirin, Cardizem, Lasix. His Lasix dosing is generally 60 mg p.o. daily however would recommend continuing 60 mg p.o. twice daily for another 2 to 3 days and then going down to his 60 mg p.o. daily. Would also recommend daily weights and a fluid restriction of around 1500 cc. -I discussed plan for discharge to the transitional care unit today and he expressed understanding of the risks and benefits of going there today. 2. Debility, inability to complete ADLs -Continue to work with PT/OT -Plan will be for TCU today 3. Anxiety/depression -Stable -Continue with Cymbalta Patient Problems: Active and Suspected Problems (Last Reviewed 08/23/20 @ 16:[address] Jason Lemus MD) Septic shock (Acute) Pneumonia (Acute) Elevated troponin (Acute 08/09/20) Acute on chronic systolic and diastolic heart failure, NYHA class 2 (Acute) Acute kidney injury superimposed on chronic kidney disease (Acute) - Physical Exam Vitals/I&O's: Vital Signs Temp Pulse Resp BP Pulse Ox 96.9 F L 69 18 107/62 96 08/30/20 16:43 08/30/20 16:43 08/30/20 16:43 08/30/20 16:43 08/30/20 16:43 Oxygen Flow Rate (L/min) 2 Oxygen Delivery Method Room Air Weight: 149 lb 11.102 oz Body Mass Index (BMI) 22.6 Intake and Output for Last 24 Hours 08/28/20 08/29/20 08/30/20 23:59 23:59 23:59 Intake Total 1125.63 / 1125.63 630 / 690 360 / 360 Output Total 1200 / 1400 1025 / 1025 Balance -74.37 / -274.37 -395 / -335 360 / 360 General: Alert, Oriented x3, Cooperative, No apparent distress HEENT: Atraumatic, PERRLA, EOMI, Normocephalic Oral: Moist Mucosa Neck: Supple, No JVD Lungs: Clear to auscultation, Normal air movement, No rhonchi, No wheeze, No rales Cardiovascular: Regular rate, Regular Rhythm, Normal S1, Normal S2, No murmurs Abdomen: Soft, Non Tender, Non-Distended, No Hepato-splenomegaly Extremities: Capillary Refill Less than 3 Seconds, Edema - Trace bilateral pitting Skin: No rashes, No breakdown Neurological: Neuro grossly intact, Sensory exam intact to light touch and pain Psych/Mental Status: Appropriate, Flat Affect Microbiology Past 72 Hours 08/26/20 19:40 Blood Culture (Wb) - Left Forearm Blood Culture - Preliminary No growth in 48 hours. 08/26/20 17:55 Blood Culture (Wb) - Anticubital Right Blood Culture - Preliminary No growth in 48 hours. Laboratory Results 08/29/20 17:05: POC Glucose 207 H 08/29/20 22:24: POC Glucose 172 H 08/30/20 06:01: Sodium 138, Potassium 2.8 L, Chloride 95 L, Carbon Dioxide 37.0 H, Anion Gap 6, BUN 43 H, Creatinine 1.63 H, Estim Creat Clear Calc 33.56, Est GFR (MDRD) Af Amer 52 L, Est GFR (MDRD) Non-Af 43 L, BUN/Creatinine Ratio 26.4 H, Glucose 126 H, Calcium 8.8 08/30/20 06:01: Phosphorus 3.3, Magnesium 1.9 08/30/20 06:47: POC Glucose 126 H 08/30/20 11:54: POC Glucose 136 H 08/30/20 13:20: COVID-19 (JUDY) Not Detected 08/30/20 16:56: POC Glucose 216 H Current Medications Acetaminophen (Acetaminophen 325 Mg Tablet) 650 mg PO Q6H PRN PRN PRN Reason: Pain Score 1-10/Temp > 100.7 F Albuterol Sulfate (Albuterol 2.5 Mg/3 Ml Vial.Neb.) 2.5 mg INHALATION Q2H PRN PRN PRN Reason: Dyspnea, wheezing Apixaban (Apixaban 2.5 Mg Tablet) 2.5 mg PO BID [facility] Last Admin: 08/30/20 08:21 Dose: 2.5 mg Documented by: Aspirin (Aspirin E.C. 81 Mg Tablet) 81 mg PO DAILY@0800 [facility] Last Admin: 08/30/20 08:21 Dose: 81 mg Documented by: Diltiazem HCl (Diltiazem Cd 120 Mg Capsule) 120 mg PO DAILY [facility] Last Admin: 08/30/20 08:21 Dose: 120 mg Documented by: Duloxetine HCl (Duloxetine Hcl 30 Mg Capsule) 30 mg PO DAILY [facility] Last Admin: 08/30/20 08:21 Dose: 30 mg Documented by: Furosemide (Furosemide 40 Mg Tablet) 60 mg PO DAILY@1600 [facility] Last Admin: 08/30/20 16:57 Dose: 60 mg Documented by: Furosemide (Furosemide 80 Mg Tablet) 80 mg PO DAILY [facility] Last Admin: 08/30/20 08:37 Dose: Not Given Documented by: Sodium Chloride () 250 mls @ 15 mls/hr IV .[id number] PRN PRN Reason: Saline Flush Last Infusion: 08/28/20 05:26 Dose: 0 mls/hr Documented by: Sodium Chloride () 250 mls @ 15 mls/hr IV .[id number] PRN PRN Reason: Additional IVPB Infusion Insulin Human Lispro (Insulin Lispro 100 Unit/Ml Insuln.Pen) 0 unit SC ACHS [facility]; Protocol Last Admin: 08/30/20 16:57 Dose: 2 units Documented by: Melatonin (Melatonin 3 Mg Tablet) 3 mg PO QHS PRN PRN PRN Reason: INSOMNIA Metoprolol Tartrate (Metoprolol Tartrate 100 Mg Tablet) 100 mg PO BID [id number] Last Admin: 08/30/20 10:30 Dose: 100 mg Documented by: Nitroglycerin (Nitroglycerin (Inpatient Use) 0.4 Mg Tab.Subl) 0.4 mg SUBLINGUAL Q5M PRN PRN Reason: CARDIAC/CHEST PAIN Ondansetron HCl (Ondansetron 4 Mg/2 Ml Vial) 4 mg IV Q8H PRN PRN PRN Reason: NAUSEA/VOMITING Last Admin: 08/29/20 00:24 Dose: 4 mg Documented by: Oxycodone HCl (Oxycodone 5 Mg Tablet) 5 mg PO Q4H PRN PRN PRN Reason: Pain Score 4-5 Psyllium Hydrophilic Mucilloid (Psyllium 1 Packet) 1 packet PO DAILY PRN PRN PRN Reason: Constipation Last Admin: 08/28/20 07:53 Dose: 1 packet Documented by: Senna/Docusate Sodium (Senna/Docusate Sodium 1 Tablet) 2 tablet PO BID PRN PRN PRN Reason: Constipation Last Admin: 08/27/20 18:48 Dose: 2 tablet Documented by: Sodium Chloride (0.9% Saline Lock 10 Ml Syringe) 10 - 40 ml IV UD PRN PRN Reason: SALINE FLUSH Last Admin: 08/29/20 06:31 Dose: 10 ml Documented by: Home Medications: Medications to take at Discharge cholecalciferol (vitamin D3) 125 mcg (5,000 unit) capsule 5,000 unit PO DAILY 02/16/19 Apixaban [Eliquis] 2.5 mg PO BID 07/17/20 Aspirin E.C. [Ecotrin] 81 mg PO DAILY@0800 07/17/20 Glimepiride [Amaryl] 2 mg PO DAILY 07/17/20 Duloxetine Hcl [Cymbalta] 30 mg PO DAILY 08/09/20 Glucerna Shake 120 ml PO 4X/DAY 30 Days #120 liquid 08/17/20 Metoprolol Tartrate [Lopressor (beta kelsey)] 100 mg PO BID 30 Days #60 tab 08/17/20 Potassium Chloride 10 meq PO BID 08/21/20 Diltiazem CD [Cardizem CD] 120 mg PO DAILY cap 08/30/20 Furosemide [Lasix] 60 mg PO DAILY 30 Days #90 tab 08/30/20 Primary Care Physician: Abdoulaye Brock MD [Primary Care Provider] - Please follow up with your Primary Care Physician in: 3-5 days Disposition: Halfway facility Minutes spent on discharge:: 35 Patient Condition:: Stable Medical Necessity - Tobacco Use Smoking Status: Never smoker Tobacco Use: Non-smoker Meaningful Use Info Meaningful Use Diagnoses (Choose all that apply): None applicable Inpatient E&M: 25226 Disch Hosp
== END 2020-08-30 18:05 | disposition skilled nursing facility (03) | DRG 291 ==
LOC: ED 18:18 → ICU 20:25 → PCU 08-27 18:25
PROVIDERS: Internal Medicine; Internal Medicine Critical Care Medicine; Admitting Provider Family Medicine; Emergency Provider Emergency Medicine; PCP Family Medicine; Visit Provider Family Medicine
DX: I13.0 Hypertensive heart and chronic kidney disease with heart failure and stage 1 through stage 4 chronic kidney disease, or unspecified chronic kidney disease (principal); I50.43 Acute on chronic combined systolic (congestive) and diastolic (congestive) heart failure; J18.9 Pneumonia, unspecified organism; N17.9 Acute kidney failure, unspecified; I48.19 Other persistent atrial fibrillation; N18.30 Chronic kidney disease, stage 3 unspecified; I25.10 Atherosclerotic heart disease of native coronary artery without angina pectoris; I25.5 Ischemic cardiomyopathy; E78.5 Hyperlipidemia, unspecified; E11.22 Type 2 diabetes mellitus with diabetic chronic kidney disease; I27.21 Secondary pulmonary arterial hypertension; I44.7 Left bundle-branch block, unspecified; F41.9 Anxiety disorder, unspecified; F32.9 Major depressive disorder, single episode, unspecified; E86.0 Dehydration; Z95.0 Presence of cardiac pacemaker; Z95.1 Presence of aortocoronary bypass graft; I25.2 Old myocardial infarction
CPT/HCPCS: 36415; 70450; 71045; 80048; 80053; 80076; 80162; 81001; 82728; 82962; 83605; 83615; 83690; 83735; 83880; 84100; 84145; 84484; 85025; 85610; 85730; 86140; 87040; 87449; 87633; 87635; 87641; 93005; 97110; 97116; 97162; 97166; 97530; 97535; 97802; 99251; 99285; J7030; J7050; J7120; A4216; G0463; J1940; J2405; U0002

== ENCOUNTER 2020-08-30 18:21 | Inpatient (IN) | payer MEDICARE, SELFPAY ==
[2020-08-26 22:31] VITALS: BMI 22.6
[2020-08-30 18:25] VITALS: BP 122/68; PULSE 73; RESP 16; TEMP 36; O2SAT 96
--- NOTE | 2020-08-30 20:13 | HP.PCM_ITS ---
Problem List (1) Debility Status: Acute (2) Nausea & vomiting Status: Acute (3) Acute kidney injury Status: Acute (4) Acute on chronic systolic congestive heart failure Status: Acute (5) Atrial fibrillation Status: Chronic (6) Hypokalemia Status: Chronic (7) Coronary artery disease Status: Chronic (8) Chronic kidney disease Status: Chronic (9) Hypertension Status: Chronic (10) Diabetes mellitus Status: Chronic (11) Prostate cancer Status: Chronic (12) Depression Status: Chronic (13) Septic shock Status: Acute (14) Pneumonia Status: Acute Qualifiers: (15) Elevated troponin Status: Acute (16) Left bundle branch block (LBBB) Status: Chronic (17) Hyperlipidemia Status: Chronic Qualifiers: History of Present Illness Date of Admission: 08/30/20 Chief Complaint: Here for rehabilitation, strengthening, prior to discharge home with . 08/26/20 The patient is a 80 year old Male with below past medical history presented to [facility] Emergency Department with nausea, vomiting. 08/26/20 Chest X-ray showed stable congestive heart failure with lower lobe pulmonary edema, trace effusions. 08/26/20 EKG showed atrial fibrillation with rapid ventricular response, anteroseptal infarct, age undetermined, left bundle branch block. 08/26/20 CT brain chronic involutional changes of brain. Nausea, decreased oral intake for several days, recent pacemaker implantation. Worsening leg swelling, unable to tolerate PO intake. Elevated WBC, Lactate 4.4, Cr 2.39, COVID negative. ATB's given for septic shock. 08/26/20 Admit to ICU. Zosyn, Vancomycin for pneumonia/sepsis. IV Lasix for systolic congestive heart failure. Cycle troponin for indeterminate troponin. Monitor Creatinine for acute kidney injury. 08/27/20 Chest X-ray showed mild CHF, small bilateral pleural effusions, Left basilar atelectasis and/or infiltrate. 08/27/20 Dr. Cedeño recommended continuing diuresis. Stop IV fluids, consider cardiology consult. Stop ATB's if cultures negative. 08/27/20 Diuresis for acute on chronic systolic congestive heart failure, EF 30%. Stop Digoxin, Start Cardizem. 08/28/20 IV Lasix changed to PO Lasix. Consider SNF for debility. 08/29/20 Sepsis ruled out. Continue diuresis, acute kidney injury improved. Troponin indeterminate. PT/OT for SNF. 08/30/20 Admit to TCU with debility, here for rehabilitation, strengthening, prior to discharge home with . Past Medical History Past Medical History (Chronic Problems): Chronic Problems (Last Reviewed 08/23/20 @ 16:[address] Jason Lemus MD) Atrial fibrillation (Chronic) Hypokalemia (Chronic) Coronary artery disease (Chronic) Chronic kidney disease (Chronic) Hypertension (Chronic) Diabetes mellitus (Chronic) Prostate cancer (Chronic) Depression (Chronic) Persistent atrial fibrillation (Chronic) History of permanent cardiac pacemaker placement (Chronic 08/16/20) VVI 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 Atrial fibrillation with rapid ventricular response (Chronic 08/09/20) Bradycardia (Chronic) Atherosclerosis of coronary artery of [place] heart with angina pectoris (Chronic) History of non-ST elevation myocardial infarction (NSTEMI) (Chronic 05/2017) 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) CABG x 4: COLES-LAD, SVG-D1, SVG to proximal end of SVG to diagonal going to OM 2, and SVG-RPDA 10/30/16 Ischemic cardiomyopathy (Chronic) Secondary pulmonary arterial hypertension (Chronic) Left bundle branch block (LBBB) (Chronic) Essential (primary) hypertension (Chronic) Hyperlipidemia (Chronic) Medical History: Medical History (Last Reviewed 08/23/20 @ 16:[address] Jason Lemus MD) Persistent atrial fibrillation (Chronic) I48.19 Elevated troponin (Acute) Onset Date: 08/09/20 R79.89 Atrial fibrillation with rapid ventricular response (Chronic) Onset Date: 08/09/20 I48.91 Acute on chronic systolic and diastolic heart failure, NYHA class 2 (Acute) I50.43 Acute kidney injury superimposed on chronic kidney disease (Acute) N17.9, N18.9 Bradycardia (Chronic) R00.1 Hypotension (Inactive) I95.9 Atherosclerosis of coronary artery of [place] heart with angina pectoris (Chronic) I25.119 History of non-ST elevation myocardial infarction (NSTEMI) (Chronic) Onset Date: 05/2017 I25.2 Ischemic cardiomyopathy (Chronic) I25.5 Secondary pulmonary arterial hypertension (Chronic) I27.21 Left bundle branch block (LBBB) (Chronic) I44.7 Essential (primary) hypertension (Chronic) I10 Hyperlipidemia (Chronic) E78.5 Barretts esophagus K22.70 Bilateral pleural effusion Onset Date: 11/2019 J90 CKD (chronic kidney disease) N18.9 Prostate cancer C61 Transient ischemic attack G45.9 Type 2 diabetes mellitus E11.9 Acute respiratory failure with hypoxemia (Resolved) J96.01 Dyspnea on exertion (Resolved) R06.09 Nausea and vomiting (Resolved) R11.2 Shortness of breath (Resolved) R06.02 Paroxysmal atrial fibrillation (Inactive) I48.0 Allergies spironolactone Allergy (Verified 08/26/20 16:54) severe weakness lisinopril Adverse Reaction (Mild, Verified 08/26/20 16:54) Dry cough amiodarone Adverse Reaction (Verified 08/26/20 16:54) toxicity Home Medications: Ambulatory Orders Medication Instructions Recorded cholecalciferol (vitamin D3) 125 5,000 unit PO DAILY 02/16/19 mcg (5,000 unit) capsule Apixaban [Eliquis] 2.5 mg PO BID 07/17/20 Aspirin E.C. [Ecotrin] 81 mg PO DAILY@0800 07/17/20 Glimepiride [Amaryl] 2 mg PO DAILY 07/17/20 Duloxetine Hcl [Cymbalta] 30 mg PO DAILY 08/09/20 Potassium Chloride 10 meq PO BID 08/21/20 Diltiazem CD [Cardizem CD] 120 mg PO DAILY 08/30/20 Furosemide [Lasix] 60 mg PO DAILY 08/30/20 Glucerna Shake 120 ml PO 4X/DAY 08/30/20 Metoprolol Tartrate [Lopressor 100 mg PO BID 08/30/20 (beta kelsey)] Surgical History: Surgical History (Last Reviewed 08/23/20 @ 16:[address] Jason Lemus MD) History of permanent cardiac pacemaker placement (Chronic) Onset Date: 08/16/20 Z95.0 VVI 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 H/O coronary artery bypass surgery (Chronic) Onset Date: 10/30/16 Z95.1 CABG x 4: COLES-LAD, SVG-D1, SVG to proximal end of SVG to diagonal going to OM 2, and SVG-RPDA 10/30/16 History of cardioversion Onset Date: 03/30/20 Z98.890 History of colonoscopy Z98.890 History of dental surgery Z92.89 History of esophagogastroduodenoscopy (EGD) Z98.890 History of left heart catheterization Onset Date: 08/13/20 Z98.890 [place] 07/23/2018, 08/13/20 History of prostatectomy Z90.79 Surgical History: coronary bypass surgery - x 4., pacemaker implantation, - - Prostatectomy, cardioversion, oral surgery. Psychiatric History: Anxiety, Depression Lives: Spouse/ Significant Other Smoking Status: Never smoker Tobacco Use: Non-smoker Alcohol: None Drugs: None - *Family History Paternal Family History: Family History (Last Reviewed 08/23/20 @ 16:[address] Jason Lemus MD) Sister Diabetes Sister Colon cancer Diabetes CVA (cerebral vascular accident) Sister Diabetes Brother Heart disease Diabetes History Items: - - Patient denies any market maternal or paternal family history including heart disease, diabetes, cancer. Maternal Family History: Family History (Last Reviewed 08/23/20 @ 16:[address] Jason Lemus MD) Sister Diabetes Sister Colon cancer Diabetes CVA (cerebral vascular accident) Sister Diabetes Brother Heart disease Diabetes History Items: - - Patient denies any market maternal or paternal family history including heart disease, diabetes, cancer. Review of Systems Constitutional: Reports: Weakness, Fatigue. Denies: Chills, Fever, Weight Change HEENT: Denies: Head Aches, Sinus Congestion, Sinus Drainage Cardiovascular: Denies: Chest Pain, Palpitations Respiratory: Reports: Shortness of Breath. Denies: Cough, Shortness of breath at rest, Sputum production Gastrointestinal: Denies: Abdominal Pain, Nausea, Vomiting Genitourinary: Denies: Dysuria Musculoskeletal: Denies: Joint Pain, Joint Tenderness Skin: Denies: Rash, Wounds Neurological: Denies: Numbness, Tingling, Focal weakness Psychiatric: Denies: Anxiety, Depression, Homicidal Ideations, Suicidal Ideations Hematologic/ Lymphatic: Denies: Easy Bruising, Easy Bleeding VTE Information - Inpt Only VTE Present on Admission: No VTE Mechan Device Prophylaxis: Knee High OSMAR Hose VTE Pharm Prophylaxis ordered?: No Reason prophylaxis not ordered:: Treatment Not Indicated Patient Problems: Active and Suspected Problems (Last Reviewed 08/23/20 @ 16:[address] Jason Lemus MD) Septic shock (Acute) Pneumonia (Acute) Debility (Acute) Nausea & vomiting (Acute) Acute kidney injury (Acute) Acute on chronic systolic congestive heart failure (Acute) Elevated troponin (Acute 08/09/20) - Physical Exam Vitals/I&O's: Body Mass Index (BMI) 22.6 General: Alert, Oriented x3, Cooperative HEENT: Atraumatic, PERRLA, EOMI, Normocephalic Neck: Supple, No JVD, Negative Carotid Bruits Lungs: Clear to auscultation, Normal air movement Cardiovascular: No murmurs, Irregular Rate Abdomen: Bowel Sounds Present, Soft, Non Tender Extremities: No edema, Capillary Refill Less than 3 Seconds Skin: No rashes, No breakdown Musculoskeletal: No Tenderness to Palpation of Joints or Extremities Neurological: Cranial nerves II-XII grossly intact Psych/Mental Status: Normal Affect, Appropriate Laboratory Results 08/30/20 19:36: COVID-19 (JUDY) Pending Current Medications Apixaban (Apixaban 2.5 Mg Tablet) 2.5 mg PO BID CUAUHTEMOC Aspirin (Aspirin E.C. 81 Mg Tablet) 81 mg PO DAILY@0800 CUAUHTEMOC Diltiazem HCl (Diltiazem Cd 120 Mg Capsule) 120 mg PO DAILY CUAUHTEMOC Duloxetine HCl (Duloxetine Hcl 30 Mg Capsule) 30 mg PO DAILY CUAUHTEMOC Furosemide (Furosemide 20 Mg Tablet) 60 mg PO DAILY CUAUHTEMOC Glimepiride (Glimepiride 2 Mg Tablet) 2 mg PO DAILYCM CUAUHTEMOC Metoprolol Tartrate (Metoprolol Tartrate 100 Mg Tablet) 100 mg PO BID CUAUHTEMOC Nutritional Formula (Lactose Free) (Glucerna Shake 120 Ml Liquid) 120 ml PO 4X/DAY CUAUHTEMOC Potassium Chloride (Potassium Chloride 10 Meq Tablet) 10 meq PO BID CUAUHTEMOC Tuberculin PPD (Tuberculin,Purif.Prot.Deriv. 50 Tu/Ml Vial) 5 tu ID X1 ONE Stop: 08/31/20 10:01 Tuberculin PPD (Tuberculin,Purif.Prot.Deriv. 50 Tu/Ml Vial) 5 tu ID X1 ONE Stop: 09/07/20 10:01 Assessment/Plan All Active Problems (Last Reviewed 08/23/20 @ 16:[address] Jason Lemus MD) Septic shock (Acute) Pneumonia (Acute) Debility (Acute) Nausea & vomiting (Acute) Acute kidney injury (Acute) Acute on chronic systolic congestive heart failure (Acute) Edema (Acute) Nausea (Acute) Elevated troponin (Acute 08/09/20) Acute on chronic systolic and diastolic heart failure, NYHA class 2 (Acute) Acute kidney injury superimposed on chronic kidney disease (Acute) Acute respiratory failure with hypoxemia (Resolved) Amiodarone toxicity (Resolved) Dyspnea (Resolved) Dyspnea on exertion (Resolved) Nausea and vomiting (Resolved) Shortness of breath (Resolved) 80 year old male with below past medical history hospitalized for acute on chronic systolic congestive heart failure, complicated by acute kidney injury, sepsis ruled out, admitted to TCU with debility, here for rehabilitation, strengthening, prior to discharge home with spouse. * Debility - PT/OT. * Pain - Tylenol 1000MG Q6H PRN pain (1-10). * Bowel - Miralax 17GM daily, Senna/colace 1 tablet BID, MOM 30ML daily PRN, Dulcolax 10MG UT daily PRN. * Adult immunization - Administer Prevnar 13, Pneumovax 23, Fluzone as appropriate. * DVT prophylaxis - Not necessary, already on Eliquis. * Atrial fibrillation - Metoprolol 100MG BID, Diltiazem 120MG daily, Eliquis 2.5MG BID. * Coronary Artery Disease - Metoprolol 100MG BID, Aspirin 81MG daily, consider stopping aspirin, adding aspirin on top of Eliquis increases risk of bleeding without further decreasing cardiovascular risk. * Depression - Duloxetine 30MG daily, stable chronic long term acute care registered nurse use, GDR not recommended. * Acute on chronic systolic congestive heart failure - Metoprolol 100MG BID, Furosemide 60MG daily, consider adding Entresto if tolerable, resident would like to try Entresto, start 24/26MG BID x 2 weeks, 49/51MG BID x 2 weeks, then 97/103MG BID, monitor blood pressure, kidney function. * Diabetes Mellitus II - Glimepiride 2MG daily, monitor blood sugars. * Nutrition - Glucerna 120ML 4x/day. * Hypokalemia - K-Dur 10MEQ BID.
[2020-08-30 21:10] VITALS: BMI 21.7
[2020-08-30 21:10] LABS: Bedside Glucose 183 mg/dL (70-110)
[2020-08-30 21:15] VITALS: BMI 21.7
[2020-08-31 06:11] VITALS: BP 117/63; PULSE 63; RESP 16; TEMP 36.4; O2SAT 92
[2020-08-31] MEDS: Menthol/Lanolin/Calamine/Znox 113 GM Tube 1 APPLIC TOPICAL ×2 (06:12→19:50)
[2020-08-31] MEDS: Glucerna Shake 120 ML LIQUID PO ×2 (06:13→11:50)
[2020-08-31] MEDS: DULoxetine Hcl 30 MG Capsule PO (06:14)
[2020-08-31] MEDS: Furosemide 20 MG Tablet 60 MG PO (06:14)
[2020-08-31 06:15] VITALS: BP 117/63; PULSE 63
[2020-08-31] MEDS: dilTIAZem CD 120 MG Capsule PO (06:15)
[2020-08-31] MEDS: APIXABAN 2.5 MG TABLET PO ×2 (06:15→18:20)
[2020-08-31] MEDS: Metoprolol Tartrate 100 MG Tablet PO ×2 (06:15→18:18)
[2020-08-31 06:30] LABS: Bedside Glucose 132 mg/dL (70-110)
[2020-08-31] MEDS: Glimepiride 2 MG Tablet PO (07:47)
[2020-08-31] MEDS: Aspirin E.C. 81 MG Tablet PO (07:47)
[2020-08-31 08:01] LABS: Absolute Lymphocyte Count 1.27 X10^3/uL (0.83-4.51); Absolute Neutrophil Count 5.9 X10^3/uL (2.0-7.7); Basophil# 0.02 X10^3/uL; Basophil% 0.3 % (0-1); Eosinophil# 0.01 X10^3/uL; Eosinophils% 0.1 % (0-5); Hematocrit 47.3 % (40-54); Hemoglobin 14.6 g/dL (13.0-16.5); Lymphocyte # 1.27 X10^3/ul (4.0); Lymphocyte % 16.3 % (19-41); Mean Corp Hgb Conc 30.9 g/dL (32-36); Mean Corpuscular Hgb 29.2 pg (27.0-32.0); Mean Corpuscular Volume 94.6 fL (80-94); Mean Platelet Vol. 12.3 fl (6.2-12.0); Monocyte# 0.56 X10^3/uL; Monocyte% 7.2 % (0-10); NRBC Flagged by Analyzer 0 % (0-5); Neutrophil # 5.89 X10^3/uL (2.7-7.7); Neutrophil % 75.7 % (47-70); POSITIVE MORPHOLOGY YES; Platelet Count 148 K/mm3 (150-450); RBC Distribution Width CV 15.3 % (11.6-14.6); RBC Distribution Width SD 52.2 fl (35.1-43.9); White Blood Count 7.8 K/mm3 (4.4-11.0)
[2020-08-31 08:05] LABS: Differential Indicated SCAN CRITERIA MET
[2020-08-31 08:14] LABS: Anion Gap 7 (5-15); BUN 40 mg/dL (7-18); BUN/Creat Ratio 21.7 RATIO (10-20); Calcium,Total 9.6 mg/dL (8.5-10.1); Chloride 95 mmol/L (98-107); Creatinine, Serum 1.84 mg/dL (0.70-1.30); EST Glomerular Filtration Rate 38 mL/min (>60); Est Glom Filt Rate - Afr Amer 45 mL/min (>60); Estimated Creatinine Clearance 29.24 ml/min; Glucose 166 mg/dL (74-106); Potassium 3.7 mmol/L (3.5-5.1); Sodium Level 138 mmol/L (136-145)
[2020-08-31] MEDS: SACUBITRIL/VALSARTAN 24/26 MG TABLET 1 EACH PO ×2 (09:08→18:20)
[2020-08-31] MEDS: Tuberculin,Purif.prot.deriv. 50 TU/ML Vial 5 ML ID (10:12)
--- NOTE | 2020-08-31 10:33 | PHA.CONS_ITS ---
<Tanvi Beth M - Last Filed: 08/31/20 10:33> Progress Note - Pharmacy Subjective: TCU ADMISSION Objective: Allergies spironolactone Allergy (Verified 08/26/20 16:54) severe weakness lisinopril Adverse Reaction (Mild, Verified 08/26/20 16:54) Dry cough amiodarone Adverse Reaction (Verified 08/26/20 16:54) toxicity Current Medications Generic Name Dose Route Start Last Admin Trade Name Sharron PRN Reason Stop Dose Admin Acetaminophen 1,000 mg 08/30/20 20:30 Acetaminophen 500 Mg Tablet PO Q6H PRN Pain Score 1-10 Apixaban 2.5 mg 08/31/20 06:00 08/31/20 06:15 Apixaban 2.5 Mg Tablet PO 2.5 mg BID CUAUHTEMOC Administration Aspirin 81 mg 08/31/20 08:00 08/31/20 07:47 Aspirin E.C. 81 Mg Tablet PO 81 mg DAILY@0800 CUAUHTEMOC Administration Bisacodyl 10 mg 08/30/20 20:31 Bisacodyl 10 Mg Suppository RECTAL DAILY PRN Constipation Calamine/Phenol 1 applic 08/30/20 22:00 08/31/20 06:12 Menthol/Lanolin/Calamine/Znox 113 Gm Tube TOPICAL 1 applicatio 0600,2200 CUAUHTEMOC Administration Protocol Diltiazem HCl 120 mg 08/31/20 06:00 08/31/20 06:15 Diltiazem Cd 120 Mg Capsule PO 120 mg DAILY CUAUHTEMOC Administration Duloxetine HCl 30 mg 08/31/20 06:00 08/31/20 06:14 Duloxetine Hcl 30 Mg Capsule PO 30 mg DAILY CUAUHTEMOC Administration Furosemide 60 mg 08/31/20 06:00 08/31/20 06:14 Furosemide 20 Mg Tablet PO 60 mg DAILY CUAUHTEMOC Administration Glimepiride 2 mg 08/31/20 08:00 08/31/20 07:47 Glimepiride 2 Mg Tablet PO 2 mg DAILYCM CUAUHTEMOC Administration Magnesium Hydroxide 30 ml 08/30/20 20:31 Magnesium Hydroxide 30 Ml Udc PO DAILY PRN Constipation Metoprolol Tartrate 100 mg 08/31/20 06:00 08/31/20 06:15 Metoprolol Tartrate 100 Mg Tablet PO 100 mg BID CUAUHTEMOC Administration Nutritional Formula (Lactose Free) 120 ml 08/30/20 22:00 08/31/20 06:13 Glucerna Shake 120 Ml Liquid PO 120 ml 4X/DAY CUAUHTEMOC Administration Polyethylene Glycol 17 gm 08/31/20 06:00 08/31/20 06:15 Polyethylene Glycol 3350 17 Gm Packet PO Not Given DAILY CUAUHTEMOC Potassium Chloride 10 meq 08/31/20 06:00 08/31/20 06:14 Potassium Chloride 10 Meq Tablet PO 10 meq BID CUAUHTEMOC Administration Sacubitril/Valsartan 1 each 08/31/20 09:00 08/31/20 09:08 Sacubitril/Valsartan 24/26 Mg Tablet PO 09/14/20 18:01 1 each BID CUAUHTEMOC Administration Sacubitril/Valsartan 1 each 09/15/20 06:00 Sacubitril/Valsartan 49-51 Mg Tablet PO 09/29/20 18:01 BID CUAUHTEMOC Sacubitril/Valsartan 1 each 09/30/20 06:00 Sacubitril/Valsartan 97-103 Mg Tablet PO BID CUAUHTEMOC Senna/Docusate Sodium 1 tablet 08/31/20 06:00 08/31/20 06:15 Senna/Docusate Sodium 1 Tablet PO Not Given BID CUAUHTEMOC Tuberculin PPD 5 tu 09/07/20 10:00 Tuberculin,Purif.Prot.Deriv. 50 Tu/Ml Vial ID 09/07/20 10:01 X1 ONE Problem List (Last Reviewed 08/23/20 @ 16:[address] Jason Lemus MD) Septic shock (Acute) Pneumonia (Acute) Debility (Acute) Nausea & vomiting (Acute) Acute kidney injury (Acute) Acute on chronic systolic congestive heart failure (Acute) Atrial fibrillation (Chronic) Hypokalemia (Chronic) Coronary artery disease (Chronic) Chronic kidney disease (Chronic) Hypertension (Chronic) Diabetes mellitus (Chronic) Prostate cancer (Chronic) Depression (Chronic) Elevated troponin (Acute 08/09/20) Left bundle branch block (LBBB) (Chronic) Hyperlipidemia (Chronic) Vital Signs Temp Pulse Resp BP Pulse Ox 97.5 F L 63 16 117/63 92 08/31/20 06:11 08/31/20 06:15 08/31/20 06:11 08/31/20 06:15 08/31/20 06:11 Oxygen Delivery Method Room Air Weight: 66.791 kg Body Mass Index (BMI) 21.7 Sodium 138 mmol/L (136-145) 08/31/20 07:45 Potassium 3.7 mmol/L (3.5-5.1) 08/31/20 07:45 Chloride 95 mmol/L (98-107) L 08/31/20 07:45 Carbon Dioxide 36.0 mmol/L (21.0-32.0) H 08/31/20 07:45 Anion Gap 7 (5-15) 08/31/20 07:45 BUN 40 mg/dL (7-18) H 08/31/20 07:45 Creatinine 1.84 mg/dL (0.70-1.30) H 08/31/20 07:45 Est GFR (MDRD) Af Amer 45 mL/min (>60) L 08/31/20 07:45 Est GFR (MDRD) Non-Af 38 mL/min (>60) L 08/31/20 07:45 BUN/Creatinine Ratio 21.7 RATIO (-20) H 08/31/20 07:45 Glucose 166 mg/dL (74-106) H 08/31/20 07:45 Assessment/Plan: 1. Pain: Tylenol 1,000 mg PO Q6h PRN Pain 1-07/28. Please continue to monitor for increased/decreased pain, PRN medication usage. 2. Atrial Fibrillation/ CAD/ CHF: Eliquis 2.5mg PO BID, Aspirin 81mg PO Daily, Diltiazem 120mg PO Daily, Lasix 60mg PO Daily, Lopressor 100mg PO BID, Entresto (tapering up) with goal dose of 97/103mg PO BID. Please continue to monitor BP, pulse, kidney function, S/S bleeding/bruising. 3. Diabetes: Glimepiride 2mg PO Daily. Please continue to monitor blood glucose, S/S hypoglycemia. 4. Hypokalemia: K-Dur 10mEq PO BID. Please continue to monitor potassium levels as clinically indicated (K= 3.7 08/31/20). Psychotropic Medications: *5. Depression: Cymbalta 30mg PO Daily. Please consider a GDR by 02/2021 if clinically indicated, thank you. Unnecessary Medications: None Bowel Regimen: Miralax 17g PO Daily, Senna/Docusate 1 tab PO BID, MOM 30mL PO Daily PRN, Bisacodyl 10mg MO Daily PRN. Please continue to monitor for increased/decreased constipation and/or diarrhea. Date of Note:: 08/31/20 - Provider Comments Provider responsibility: Provider responsible to enter orders to implement recommendations <Vimal Toscano Chi - Last Filed: 08/31/20 13:11> Progress Note - Pharmacy Subjective: [] Objective: Allergies spironolactone Allergy (Verified 08/26/20 16:54) severe weakness lisinopril Adverse Reaction (Mild, Verified 08/26/20 16:54) Dry cough amiodarone Adverse Reaction (Verified 08/26/20 16:54) toxicity Current Medications Generic Name Dose Route Start Last Admin Trade Name Freq PRN Reason Stop Dose Admin Acetaminophen 1,000 mg 08/30/20 20:30 Acetaminophen 500 Mg Tablet PO Q6H PRN Pain Score 1-10 Apixaban 2.5 mg 08/31/20 06:00 08/31/20 06:15 Apixaban 2.5 Mg Tablet PO 2.5 mg BID CUAUHTEMOC Administration Aspirin 81 mg 08/31/20 08:00 08/31/20 07:47 Aspirin E.C. 81 Mg Tablet PO 81 mg DAILY@0800 CU[facility]HT[facility]OC Administration Bisacodyl 10 mg 08/30/20 20:31 Bisacodyl 10 Mg Suppository RECTAL DAILY PRN Constipation Calamine/Phenol 1 applic 08/30/20 22:00 08/31/20 06:12 Menthol/Lanolin/Calamine/Znox 113 Gm Tube TOPICAL 1 applicatio 0600,2200 CUAUHTEMOC Administration Protocol Diltiazem HCl 120 mg 08/31/20 06:00 08/31/20 06:15 Diltiazem Cd 120 Mg Capsule PO 120 mg DAILY CUAUHTEMOC Administration Duloxetine HCl 30 mg 08/31/20 06:00 08/31/20 06:14 Duloxetine Hcl 30 Mg Capsule PO 30 mg DAILY [facility]HTEMOC Administration Furosemide 60 mg 08/31/20 06:00 08/31/20 06:14 Furosemide 20 Mg Tablet PO 60 mg DAILY CUAUHTEMOC Administration Glimepiride 2 mg 08/31/20 08:00 08/31/20 07:47 Glimepiride 2 Mg Tablet PO 2 mg DAILYCM CUAUHTEMOC Administration Magnesium Hydroxide 30 ml 08/30/20 20:31 Magnesium Hydroxide 30 Ml Udc PO DAILY PRN Constipation Metoprolol Tartrate 100 mg 08/31/20 06:00 08/31/20 06:15 Metoprolol Tartrate 100 Mg Tablet PO 100 mg BID CUAUHTEMOC Administration Nutritional Formula (Lactose Free) 120 ml 08/30/20 22:00 08/31/20 11:50 Glucerna Shake 120 Ml Liquid PO 120 ml 4X/DAY CUAUHTEMOC Administration Polyethylene Glycol 17 gm 08/31/20 06:00 08/31/20 06:15 Polyethylene Glycol 3350 17 Gm Packet PO Not Given DAILY [facility]AUHTEMOC Potassium Chloride 10 meq 08/31/20 06:00 08/31/20 06:14 Potassium Chloride 10 Meq Tablet PO 10 meq BID CUAUHTEMOC Administration Sacubitril/Valsartan 1 each 08/31/20 09:00 08/31/20 09:08 Sacubitril/Valsartan 24/26 Mg Tablet PO 09/14/20 18:01 1 each BID CUAUHTEMOC Administration Sacubitril/Valsartan 1 each 09/15/20 06:00 Sacubitril/Valsartan 49-51 Mg Tablet PO 09/29/20 18:01 BID CUAUHTEMOC Sacubitril/Valsartan 1 each 09/30/20 06:00 Sacubitril/Valsartan 97-103 Mg Tablet PO BID CUAUHETMOC Senna/Docusate Sodium 1 tablet 08/31/20 06:00 08/31/20 06:15 Senna/Docusate Sodium 1 Tablet PO Not Given BID [facility]HT[facility]OC Tuberculin PPD 5 tu 09/07/20 10:00 Tuberculin,Purif.Prot.Deriv. 50 Tu/Ml Vial ID 09/07/20 10:01 X1 ONE Problem List (Last Reviewed 08/23/20 @ 16:[address] Jason Lemus MD) Septic shock (Acute) Pneumonia (Acute) Debility (Acute) Nausea & vomiting (Acute) Acute kidney injury (Acute) Acute on chronic systolic congestive heart failure (Acute) Atrial fibrillation (Chronic) Hypokalemia (Chronic) Coronary artery disease (Chronic) Chronic kidney disease (Chronic) Hypertension (Chronic) Diabetes mellitus (Chronic) Prostate cancer (Chronic) Depression (Chronic) Elevated troponin (Acute 08/09/20) Left bundle branch block (LBBB) (Chronic) Hyperlipidemia (Chronic) Vital Signs Temp Pulse Resp BP Pulse Ox 97.5 F L 63 16 117/63 92 08/31/20 06:11 08/31/20 06:15 08/31/20 06:11 08/31/20 06:15 08/31/20 06:11 Oxygen Delivery Method Room Air Weight: 66.791 kg Body Mass Index (BMI) 21.7 Sodium 138 mmol/L (136-145) 08/31/20 07:45 Potassium 3.7 mmol/L (3.5-5.1) 08/31/20 07:45 Chloride 95 mmol/L (98-107) L 08/31/20 07:45 Carbon Dioxide 36.0 mmol/L (21.0-32.0) H 08/31/20 07:45 Anion Gap 7 (5-15) 08/31/20 07:45 BUN 40 mg/dL (7-18) H 08/31/20 07:45 Creatinine 1.84 mg/dL (0.70-1.30) H 08/31/20 07:45 Est GFR (MDRD) Af Amer 45 mL/min (>60) L 08/31/20 07:45 Est GFR (MDRD) Non-Af 38 mL/min (>60) L 08/31/20 07:45 BUN/Creatinine Ratio 21.7 RATIO (10-20) H 08/31/20 07:45 Glucose 166 mg/dL (74-106) H 08/31/20 07:45 Assessment/Plan: Psychotropic Medications: Unnecessary Medications: Bowel Regimen: - Provider Comments Provider responsibility: Provider responsible to enter orders to implement rec ommendations Provider Comments to Recommendations by Pharmacy: Agree
--- NOTE | 2020-08-31 10:54 | CASEMGMT ---
Social Work Discussed code status with pt. pt confirmed full code. MOLST form reviewed, communication to , and placed in chart. Khloe Fernandez, [employer] V[employer] NEUROLOGIST
[2020-08-31 11:15] LABS: Bedside Glucose 239 mg/dL (70-110)
[2020-08-31 14:52] VITALS: BP 120/66; PULSE 72; RESP 18; TEMP 36.2; O2SAT 95
--- NOTE | 2020-08-31 16:23 | NURSING ---
Resident and son, Mason, notified of staff testing positive for COVID.
[2020-08-31 16:46] LABS: Bedside Glucose 184 mg/dL (70-110)
[2020-08-31 18:18] VITALS: PULSE 67
[2020-08-31 21:25] LABS: Bedside Glucose 188 mg/dL (70-110)
[2020-09-01 06:26] VITALS: BP 107/55; PULSE 64; RESP 16; TEMP 36.2; O2SAT 92
[2020-09-01 06:29] VITALS: BP 107/55; PULSE 64
[2020-09-01] MEDS: Metoprolol Tartrate 100 MG Tablet PO ×2 (06:29→17:28)
[2020-09-01] MEDS: APIXABAN 2.5 MG TABLET PO ×2 (06:29→09:24)
[2020-09-01] MEDS: DULoxetine Hcl 30 MG Capsule PO (06:30)
[2020-09-01] MEDS: Furosemide 20 MG Tablet 60 MG PO (06:30)
[2020-09-01] MEDS: dilTIAZem CD 120 MG Capsule PO (06:31)
[2020-09-01] MEDS: SACUBITRIL/VALSARTAN 24/26 MG TABLET 1 EACH PO ×2 (06:31→17:28)
[2020-09-01] MEDS: Menthol/Lanolin/Calamine/Znox 113 GM Tube 1 APPLIC TOPICAL ×2 (06:33→19:54)
[2020-09-01 06:46] LABS: Bedside Glucose 130 mg/dL (70-110)
[2020-09-01] MEDS: Aspirin E.C. 81 MG Tablet PO (09:24)
[2020-09-01] MEDS: Glimepiride 2 MG Tablet PO (09:24)
[2020-09-01 11:16] LABS: Bedside Glucose 221 mg/dL (70-110)
[2020-09-01 13:27] VITALS: BP 101/54; PULSE 66; RESP 14; TEMP 36.2; O2SAT 95
[2020-09-01 16:25] LABS: Bedside Glucose 186 mg/dL (70-110)
[2020-09-01 17:28] VITALS: PULSE 69
[2020-09-01 21:26] LABS: Bedside Glucose 190 mg/dL (70-110)
[2020-09-02 05:02] VITALS: BP 114/60; PULSE 64; RESP 16; TEMP 35.9; O2SAT 94
[2020-09-02] MEDS: Furosemide 20 MG Tablet 60 MG PO (05:04)
[2020-09-02] MEDS: DULoxetine Hcl 30 MG Capsule PO (05:04)
[2020-09-02] MEDS: dilTIAZem CD 120 MG Capsule PO (05:04)
[2020-09-02] MEDS: SACUBITRIL/VALSARTAN 24/26 MG TABLET 1 EACH PO ×2 (05:04→17:43)
[2020-09-02 05:05] VITALS: BP 114/60; PULSE 64
[2020-09-02] MEDS: Metoprolol Tartrate 100 MG Tablet PO ×2 (05:05→17:43)
[2020-09-02] MEDS: APIXABAN 2.5 MG TABLET PO ×2 (05:05→17:43)
[2020-09-02] MEDS: Senna/Docusate Sodium 1 Tablet PO ×2 (05:05→17:43)
[2020-09-02] MEDS: Menthol/Lanolin/Calamine/Znox 113 GM Tube 1 APPLIC TOPICAL ×2 (05:09→20:10)
[2020-09-02 06:26] LABS: Bedside Glucose 114 mg/dL (70-110)
[2020-09-02] MEDS: Glimepiride 2 MG Tablet PO (07:58)
[2020-09-02] MEDS: Aspirin E.C. 81 MG Tablet PO (07:58)
[2020-09-02 11:20] LABS: Bedside Glucose 240 mg/dL (70-110)
[2020-09-02 13:30] VITALS: BP 105/57; PULSE 65; RESP 16; TEMP 36.3; O2SAT 96
[2020-09-02 16:05] LABS: Bedside Glucose 167 mg/dL (70-110)
[2020-09-02 17:43] VITALS: PULSE 65
[2020-09-02 21:15] LABS: Bedside Glucose 208 mg/dL (70-110)
[2020-09-03 04:00] VITALS: BP 103/57; PULSE 69; RESP 16; TEMP 36.8; O2SAT 94
[2020-09-03] MEDS: APIXABAN 2.5 MG TABLET PO ×2 (05:53→17:52)
[2020-09-03] MEDS: dilTIAZem CD 120 MG Capsule PO (05:53)
[2020-09-03 05:54] VITALS: BP 103/57; PULSE 69
[2020-09-03] MEDS: Furosemide 20 MG Tablet 60 MG PO (05:54)
[2020-09-03] MEDS: DULoxetine Hcl 30 MG Capsule PO (05:54)
[2020-09-03] MEDS: SACUBITRIL/VALSARTAN 24/26 MG TABLET 1 EACH PO ×2 (05:54→17:52)
[2020-09-03] MEDS: Metoprolol Tartrate 100 MG Tablet PO ×2 (05:54→17:55)
[2020-09-03] MEDS: Menthol/Lanolin/Calamine/Znox 113 GM Tube 1 APPLIC TOPICAL ×2 (05:57→21:17)
[2020-09-03 06:25] LABS: Bedside Glucose 115 mg/dL (70-110)
[2020-09-03 07:39] LABS: Anion Gap 4 (5-15); BUN 28 mg/dL (7-18); BUN/Creat Ratio 17.5 RATIO (10-20); Calcium,Total 9.3 mg/dL (8.5-10.1); Chloride 96 mmol/L (98-107); EST Glomerular Filtration Rate 44 mL/min (>60); Est Glom Filt Rate - Afr Amer 53 mL/min (>60); Estimated Creatinine Clearance 33.63 ml/min; Glucose 118 mg/dL (74-106); Potassium 4.5 mmol/L (3.5-5.1); Sodium Level 136 mmol/L (136-145)
[2020-09-03] MEDS: Aspirin E.C. 81 MG Tablet PO (08:29)
[2020-09-03] MEDS: Glimepiride 2 MG Tablet PO (08:29)
[2020-09-03 10:51] LABS: Bedside Glucose 257 mg/dL (70-110)
--- NOTE | 2020-09-03 12:10 | NURSING ---
DR Toscano made aware of pt's blood sugar of 257. Let Dr. Toscano know his sugars have been trending on the high side. Dr. Toscano wants to keep a eye on his blood sugars at this time.
[2020-09-03 14:12] VITALS: BP 96/56; PULSE 65; RESP 16; TEMP 36.1; O2SAT 94
[2020-09-03 16:45] LABS: Bedside Glucose 186 mg/dL (70-110)
[2020-09-03 17:55] VITALS: BP 106/55; PULSE 65
[2020-09-03 21:20] LABS: Bedside Glucose 201 mg/dL (70-110)
[2020-09-04] VITALS (10 sets, daily range): BP systolic 80–107; BP diastolic 54–62; PULSE 57–70; RESP 16–18; TEMP 36.1–36.6; O2SAT 96–98
[2020-09-04] MEDS: Metoprolol Tartrate 100 MG Tablet PO (04:53)
[2020-09-04] MEDS: SACUBITRIL/VALSARTAN 24/26 MG TABLET 1 EACH PO ×2 (04:54→17:45)
[2020-09-04] MEDS: Furosemide 20 MG Tablet 60 MG PO (04:54)
[2020-09-04] MEDS: APIXABAN 2.5 MG TABLET PO ×2 (04:54→17:45)
[2020-09-04] MEDS: dilTIAZem CD 120 MG Capsule PO (04:55)
[2020-09-04] MEDS: DULoxetine Hcl 30 MG Capsule PO (04:55)
[2020-09-04] MEDS: Menthol/Lanolin/Calamine/Znox 113 GM Tube 1 APPLIC TOPICAL ×2 (04:56→19:57)
[2020-09-04 06:36] LABS: Bedside Glucose 63 mg/dL (70-110)
[2020-09-04 07:00] LABS: Bedside Glucose 56 mg/dL (70-110)
[2020-09-04 07:21] LABS: Bedside Glucose 83 mg/dL (70-110)
[2020-09-04 08:40] LABS: Bedside Glucose 143 mg/dL (70-110)
[2020-09-04] MEDS: Aspirin E.C. 81 MG Tablet PO (08:40)
[2020-09-04] MEDS: Glimepiride 2 MG Tablet PO (08:41)
[2020-09-04 11:15] LABS: Bedside Glucose 179 mg/dL (70-110)
--- NOTE | 2020-09-04 11:58 | NURSING ---
Addendum entered by Azucena L Shelly 09/04/20 14:15: NS BOLUS COMPLETED. BP 99/56, HR 63. R' STATES HE IS FEELING BETTER. R' APPEARS MORE AWAKE/ALERT. R' SPOKE WITH SON ON PHONE. ENCOURAGED R' TO EAT DINNER TONIGHT. WILL MONITOR. Addendum entered by Azucena Harriett Bravo 09/04/20 13:21: SPOKE WITH SON, UPDATED HIM ON NEW ORDERS. Addendum entered by Azucena Harriett Bravo 09/04/20 13:10: CALLED R' SON TO UPDATE ON NEW ORDERS. NO ANSWER. Original Note: 1100-THERAPY REPORTED TO THIS NURSE THAT R' C/O FEELING EXTREMELY WEAK. R' LYING IN BED. VS OBTAINED- BP 80/54, HR 63 (SLIGHTLY IRREGULAR), AFEBRILE 97.2. R' DENIED CP/DIZZINESS/SOB. BLOOD SUGAR OBTAINED-179. HAND GRASPS EQUAL/STRONG, EQUAL FOOT PUSHES/PULLS. DENIES CHANGES IN VISION. LUNGS DIMINISHED. +2 EDEMA TO BLE'S. R' ONLY COMPLAINT WAS FEELING WEAK AND WIPED OUT. NOTIFIED DR. RYAN. N.O. FOR NS 500CC BOLUS, RECHECK BP. ALSO, DECREASED LOPRESSOR TO 50MG BID AND LASIX TO 40MG DAILY. IV STARTED BY Jean Claude GONSALVES IN RFA.
--- NOTE | 2020-09-04 14:32 | CHAPLAIN ---
Type of Pastoral Visit _x__ Initial Visit ___ Follow-up Visit ___ On-call Visit ___ General Patient Visit ___ Spiritual Assessment ___ Family Conference ___ Bereavement ___ Rapid Response ___ Code Blue ___ Other (describe below) Pastoral Care Referral From _x__ Patient ___ Family ___ Nurse ___ Physician ___ Pawn Shop Keeper ___ Cutting And Creasing Press Operator ___ Other (describe below) Sacrament/Intervention _x__ Active listening ___ Anointing ___ Restorationism ___ Bereavement ___ Communion ___ Calista exploration ___ ___ Life review _x__ Prayer ___ Reconciliation ___ Sacrament of Sick _x__ Supportive presence ___ Wedding ___ Other (describe below) Pastoral Comments met this patient previously when he was admitted in PCU and ICU; pt states he is so weak and feels down; supportive listening; review of calista; pt is mosque member and believes God is helping him; prayer welcomed;
[2020-09-04 16:15] LABS: Bedside Glucose 120 mg/dL (70-110)
--- NOTE | 2020-09-04 18:07 | RAD_ITS ---
STUDY: X-RAY CHEST REASON FOR EXAM: Male, 80 years old. edema and lethargy TECHNIQUE: PA and lateral views of the chest. COMPARISON: 08/27/2020. FINDINGS: Small bilateral pleural effusions, greater on the left. Mild atelectasis in the left lung. The lungs are otherwise clear. Sternal cerclage wires and vascular clips are present from a prior sternotomy and coronary artery bypass graft procedure (CABG). Normal mediastinum and heaven. Normal visualized pulmonary arteries. Normal visualized aortic arch and descending thoracic aorta. Normal visualized thoracic spine. Normal visualized ribs, clavicles, and shoulders. There is no demonstrated abnormality of the visualized soft tissue structures of the upper abdomen. RAD/Chest PA and Lateral IMPRESSION: 1. Small bilateral pleural effusions and atelectasis on the left. Electronically Signed: Tammy Dickens MD at 19:33 EST Tel , Service support ,
--- NOTE | 2020-09-04 18:09 | NURSING ---
R' STILL LETHARGIC THIS EVENING, REFUSING TO EAT. ALSO, REFUSED LUNCH TODAY. 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 UPDATE DR. RYAN ON R' STILL FEELING EXTREMELY WEAK, +2 PITTING EDEMA IN BLE'S, FATIGUE, AND LACK OF APPETITE. LUNGS SOUNDS REMAIN DIMINISHED. N.O. FOR CBC W/DIF, BMP. CXR, KUB, AND UA.
--- NOTE | 2020-09-04 18:30 | RAD_ITS ---
STUDY: X-RAY - ABDOMEN/PELVIS REASON FOR EXAM: Male, 80 years old. edema, lethargy, and lack of appetite. TECHNIQUE: AP and erect views of the abdomen. COMPARISON: None. FINDINGS: Left pleural effusion. Nonobstructive bowel gas pattern. No organomegaly. No abnormal calcifications. Surgical clips are noted in the pelvis. Soft tissues and bony structures are otherwise unremarkable. RAD/Abd Inc Decub and/or Erect IMPRESSION: Obstructive abdomen. No acute findings. Electronically Signed: Tammy Dickens MD at 19:34 EST Tel , Service support ,
[2020-09-04 19:17] LABS: Absolute Lymphocyte Count 1.28 X10^3/uL (0.83-4.51); Absolute Neutrophil Count 4.1 X10^3/uL (2.0-7.7); Basophil# 0.02 X10^3/uL; Basophil% 0.3 % (0-1); Eosinophil# 0.14 X10^3/uL; Eosinophils% 2.3 % (0-5); Hematocrit 49.3 % (40-54); Hemoglobin 15.6 g/dL (13.0-16.5); Lymphocyte # 1.28 X10^3/ul (4.0); Lymphocyte % 20.9 % (19-41); Mean Corp Hgb Conc 31.6 g/dL (32-36); Mean Corpuscular Hgb 29.7 pg (27.0-32.0); Mean Corpuscular Volume 93.9 fL (80-94); Mean Platelet Vol. 11.6 fl (6.2-12.0); Monocyte# 0.57 X10^3/uL; Monocyte% 9.3 % (0-10); NRBC Flagged by Analyzer 0 % (0-5); Neutrophil # 4.09 X10^3/uL (2.7-7.7); Neutrophil % 66.9 % (47-70); Platelet Count 152 K/mm3 (150-450); RBC Distribution Width CV 15.2 % (11.6-14.6); Red Blood Count 5.25 M/mm3 (4.6-6.2); White Blood Count 6.1 K/mm3 (4.4-11.0)
[2020-09-04 19:33] LABS: Anion Gap 3 (5-15); BUN 28 mg/dL (7-18); BUN/Creat Ratio 17.7 RATIO (10-20); Chloride 98 mmol/L (98-107); Creatinine, Serum 1.58 mg/dL (0.70-1.30); EST Glomerular Filtration Rate 45 mL/min (>60); Est Glom Filt Rate - Afr Amer 54 mL/min (>60); Estimated Creatinine Clearance 34.57 ml/min; Glucose 110 mg/dL (74-106); Potassium 4.8 mmol/L (3.5-5.1); Sodium Level 135 mmol/L (136-145)
[2020-09-04 20:15] LABS: Bacteria 0 SEEN /hpf (None Seen); Mucous, Urine 0 SEEN /hpf (<or=2+); Red Blood Cells-Urine 0 SEEN /hpf (0-5)
[2020-09-04 20:24] LABS: Color, Urine Yellow (Yellow); Glucose, Dipstick Normal (Normal); Ketone-Dipstick Negative (Negative); Leukocyte Esterase-Dipstick 25 /ul (Negative); Nitrite-Dipstick Negative (Negative); Occult Blood-Urine Negative /ul (Negative); Protein-Dipstick 15 mg/dl (Negative); Urine Bilirubin Dipstick Negative (Negative); Urine Clarity Clear (Clear); Urine Urobilinogen 1 mg/dl (Normal)
[2020-09-04 20:45] LABS: Squamous Epithelial Cells - UA 5-10 SEEN /hpf (0-5); White Blood Cells 0-5 SEEN /hpf (0-5)
[2020-09-04 21:25] LABS: Bedside Glucose 138 mg/dL (70-110)
[2020-09-05 02:02] VITALS: BP 98/62; PULSE 62; RESP 16; TEMP 36.5; O2SAT 97
[2020-09-05 05:02] VITALS: BP 112/67; PULSE 70; RESP 16; TEMP 36.5; O2SAT 97
[2020-09-05 05:05] VITALS: BP 112/67; PULSE 70
[2020-09-05] MEDS: APIXABAN 2.5 MG TABLET PO ×2 (05:05→18:48)
[2020-09-05] MEDS: Furosemide 40 MG Tablet PO (05:05)
[2020-09-05] MEDS: Metoprolol Tartrate 25 MG Tablet PO ×2 (05:05→18:49)
[2020-09-05] MEDS: DULoxetine Hcl 30 MG Capsule PO (05:05)
[2020-09-05] MEDS: SACUBITRIL/VALSARTAN 24/26 MG TABLET 1 EACH PO ×2 (05:06→18:48)
[2020-09-05] MEDS: Menthol/Lanolin/Calamine/Znox 113 GM Tube 1 APPLIC TOPICAL ×2 (05:08→19:27)
[2020-09-05] MEDS: 0.9% Saline Lock 10 ML Syringe IV (05:08)
[2020-09-05 06:20] LABS: Bedside Glucose 65 mg/dL (70-110)
[2020-09-05 06:40] LABS: Bedside Glucose 75 mg/dL (70-110)
[2020-09-05] MEDS: Aspirin E.C. 81 MG Tablet PO (08:00)
[2020-09-05] MEDS: Glimepiride 2 MG Tablet PO (08:00)
[2020-09-05 11:05] LABS: Bedside Glucose 262 mg/dL (70-110)
[2020-09-05 13:48] VITALS: BP 103/50; PULSE 54; RESP 16; TEMP 36.3; O2SAT 96
--- NOTE | 2020-09-05 14:26 | CASEMGMT ---
Social Work IDT met with patient and son via conference call for care plan meeting. Discussed patient's progress in therapy. Pt is CGA for bed mobility, tx and while ambulating 40 ft with FWW. Pt using 2# wts for LE exercises. Pt fatigues very quickly, and needs to improve activity tolerance. Pt reports to consistently being very tired. stated pt on bolius IV fluids. Pt is supervised for grooming, min for bathing and UE ADLs, SBA for LE ADLS while seated, CGA for toilet tx, SBA for toileting tasks. Pt is on cardiac, low sodium diet, small portions, intake variable. Pt is out of isolation 09/13. Explained [facility] insurance with NRD 09/10, EDC 09/12. Pt reports to using MOW but does not like the food. Offered to change providers - pt agreed. Resources provided. Pt to return home with whom has cognition issues, and son support. Pt and son agreed for SW to follow up on Palliative referral for pt to have at [place]. Contacted [facility]. Will continue to follow. Khloe Fernandez, VIOLETA INJURY/SAFETY HAZARD ASSESSMENT
[2020-09-05 17:00] LABS: Bedside Glucose 251 mg/dL (70-110)
[2020-09-05] MEDS: Furosemide 40 MG/4 ML Vial IV (18:48)
[2020-09-05] MEDS: Senna/Docusate Sodium 1 Tablet PO (18:48)
[2020-09-05 18:49] VITALS: BP 122/68; PULSE 74
[2020-09-05 19:00] VITALS: PULSE 74; RESP 16; O2SAT 94
[2020-09-05 21:46] LABS: Bedside Glucose 318 mg/dL (70-110)
[2020-09-06 06:04] VITALS: BP 101/62; PULSE 87; RESP 16; TEMP 36.4; O2SAT 98
[2020-09-06] MEDS: 0.9% Saline Lock 10 ML Syringe IV ×2 (06:06→09:11)
[2020-09-06] MEDS: APIXABAN 2.5 MG TABLET PO ×2 (06:06→18:22)
[2020-09-06 06:07] VITALS: BP 101/62; PULSE 87
[2020-09-06] MEDS: Senna/Docusate Sodium 1 Tablet PO ×2 (06:07→18:22)
[2020-09-06] MEDS: Metoprolol Tartrate 25 MG Tablet PO ×2 (06:07→18:23)
[2020-09-06] MEDS: DULoxetine Hcl 30 MG Capsule PO (06:07)
[2020-09-06] MEDS: SACUBITRIL/VALSARTAN 24/26 MG TABLET 1 EACH PO ×2 (06:10→18:22)
[2020-09-06] MEDS: Menthol/Lanolin/Calamine/Znox 113 GM Tube 1 APPLIC TOPICAL ×2 (06:11→21:49)
[2020-09-06 06:25] LABS: Bedside Glucose 180 mg/dL (70-110)
[2020-09-06] MEDS: Furosemide 40 MG/4 ML Vial IV ×2 (09:09→18:22)
[2020-09-06] MEDS: Glimepiride 2 MG Tablet PO (09:09)
[2020-09-06] MEDS: Aspirin E.C. 81 MG Tablet PO (09:09)
[2020-09-06 11:00] LABS: Bedside Glucose 267 mg/dL (70-110)
[2020-09-06 13:30] VITALS: PULSE 72; RESP 16; O2SAT 94
[2020-09-06 16:00] VITALS: BP 100/50; PULSE 72; RESP 16; TEMP 36.4; O2SAT 94
[2020-09-06 16:21] LABS: Bedside Glucose 207 mg/dL (70-110)
[2020-09-06 18:23] VITALS: BP 100/50; PULSE 64
[2020-09-06 21:26] LABS: Bedside Glucose 215 mg/dL (70-110)
[2020-09-07 05:38] VITALS: BP 101/61; PULSE 97; RESP 16; TEMP 36.1; O2SAT 96
[2020-09-07 05:42] VITALS: PULSE 97
[2020-09-07] MEDS: Metoprolol Tartrate 25 MG Tablet PO ×2 (05:42→16:30)
[2020-09-07] MEDS: SACUBITRIL/VALSARTAN 24/26 MG TABLET 1 EACH PO ×2 (05:42→16:31)
[2020-09-07] MEDS: APIXABAN 2.5 MG TABLET PO ×2 (05:42→16:29)
[2020-09-07] MEDS: Senna/Docusate Sodium 1 Tablet PO ×2 (05:42→16:30)
[2020-09-07] MEDS: DULoxetine Hcl 30 MG Capsule PO (05:43)
[2020-09-07] MEDS: Menthol/Lanolin/Calamine/Znox 113 GM Tube 1 APPLIC TOPICAL ×2 (05:44→21:18)
[2020-09-07 06:15] LABS: Absolute Lymphocyte Count 1.52 X10^3/uL (0.83-4.51); Absolute Neutrophil Count 3.7 X10^3/uL (2.0-7.7); Basophil# 0.03 X10^3/uL; Basophil% 0.5 % (0-1); Eosinophil# 0.02 X10^3/uL; Eosinophils% 0.3 % (0-5); Hematocrit 46.6 % (40-54); Hemoglobin 14.8 g/dL (13.0-16.5); Lymphocyte # 1.52 X10^3/ul (4.0); Mean Corp Hgb Conc 31.8 g/dL (32-36); Mean Corpuscular Hgb 29.7 pg (27.0-32.0); Mean Corpuscular Volume 93.4 fL (80-94); Mean Platelet Vol. 11.9 fl (6.2-12.0); Monocyte# 0.57 X10^3/uL; Monocyte% 9.7 % (0-10); NRBC Flagged by Analyzer 0 % (0-5); Neutrophil # 3.69 X10^3/uL (2.7-7.7); Neutrophil % 63.2 % (47-70); Platelet Count 147 K/mm3 (150-450); RBC Distribution Width CV 14.9 % (11.6-14.6); RBC Distribution Width SD 50.8 fl (35.1-43.9); Red Blood Count 4.99 M/mm3 (4.6-6.2); White Blood Count 5.9 K/mm3 (4.4-11.0)
[2020-09-07 06:30] LABS: Bedside Glucose 110 mg/dL (70-110)
[2020-09-07 07:30] LABS: Anion Gap 4 (5-15); BUN 25 mg/dL (7-18); BUN/Creat Ratio 17.2 RATIO (10-20); Calcium,Total 8.7 mg/dL (8.5-10.1); Chloride 101 mmol/L (98-107); Creatinine, Serum 1.45 mg/dL (0.70-1.30); EST Glomerular Filtration Rate 49 mL/min (>60); Est Glom Filt Rate - Afr Amer 60 mL/min (>60); Estimated Creatinine Clearance 37.67 ml/min; Glucose 104 mg/dL (74-106); Potassium 4.1 mmol/L (3.5-5.1); Sodium Level 138 mmol/L (136-145)
[2020-09-07] MEDS: Aspirin E.C. 81 MG Tablet PO (09:05)
[2020-09-07] MEDS: Glimepiride 2 MG Tablet PO (09:05)
[2020-09-07 10:46] LABS: Bedside Glucose 206 mg/dL (70-110)
[2020-09-07] MEDS: Tuberculin,Purif.prot.deriv. 50 TU/ML Vial 5 ML ID (11:02)
[2020-09-07] MEDS: 0.9% Saline Lock 10 ML Syringe IV (11:03)
[2020-09-07 13:28] VITALS: BP 109/70; PULSE 70; RESP 16; TEMP 36.1; O2SAT 93
--- NOTE | 2020-09-07 13:48 | MDS.RN ---
Information for the mds was obtained from review of the clinical record, interview of resident, staff, and direct observation of resident's care.
[2020-09-07] MEDS: Magnesium Hydroxide 30 ML UDC PO (14:19)
[2020-09-07 16:30] VITALS: PULSE 70
[2020-09-07 16:36] LABS: Bedside Glucose 189 mg/dL (70-110)
--- NOTE | 2020-09-07 20:48 | PCA ---
Patient is an ADL with Therapy in the morning and did not wish to get washed tonight.
[2020-09-07 21:16] LABS: Bedside Glucose 145 mg/dL (70-110)
[2020-09-08] VITALS (8 sets, daily range): BP systolic 92–113; BP diastolic 53–82; PULSE 86–136; RESP 16–18; TEMP 36–37.2; O2SAT 96–98
[2020-09-08] MEDS: 0.9% Saline Lock 10 ML Syringe IV (05:43)
[2020-09-08] MEDS: Polyethylene Glycol 3350 17 GM PACKET PO (05:44)
[2020-09-08] MEDS: APIXABAN 2.5 MG TABLET PO (05:45)
[2020-09-08] MEDS: SACUBITRIL/VALSARTAN 24/26 MG TABLET 1 EACH PO (05:45)
[2020-09-08] MEDS: Metoprolol Tartrate 25 MG Tablet PO (05:46)
[2020-09-08] MEDS: Menthol/Lanolin/Calamine/Znox 113 GM Tube 1 APPLIC TOPICAL ×2 (05:46→22:43)
[2020-09-08] MEDS: DULoxetine Hcl 30 MG Capsule PO (05:46)
[2020-09-08] MEDS: Furosemide 40 MG Tablet PO (05:46)
[2020-09-08] MEDS: Senna/Docusate Sodium 1 Tablet PO (05:46)
--- NOTE | 2020-09-08 05:55 | NURSING ---
Addendum entered by Bethany Kelly 09/08/20 06:38: accucheck 61, pt able to drink glass of orange juice without emesis at this time. declines further snacks. will recheck. Original Note: pt nauseated after medications administered this morning. Small emesis. No pills observed in emesis. Pt unable to take milk of magnesia and refusing suppository at this time until he is feeling better. last BM 09/03.
[2020-09-08 06:30] LABS: Bedside Glucose 61 mg/dL (70-110)
[2020-09-08 06:55] LABS: Bedside Glucose 102 mg/dL (70-110)
[2020-09-08] MEDS: Bisacodyl 10 MG Suppository RECTAL (08:42)
[2020-09-08 11:20] LABS: Bedside Glucose 68 mg/dL (70-110)
--- NOTE | 2020-09-08 11:20 | NURSING ---
Pt's accucheck 68, OJ given. Will recheck.
[2020-09-08 12:31] LABS: Bedside Glucose 85 mg/dL (70-110)
--- NOTE | 2020-09-08 13:37 | RAD_ITS ---
HISTORY: CONSTIPATION, LOSS OF APPETITE XR Abdomen 1 View TECHNIQUE: 1 view # of images incl. paperwork: 2 COMPARISON: 09/04/2020 FINDINGS: Diffuse colonic fecal retention without bowel dilatation. Loops of bowel are not dilated. No anomalous air-fluid levels are seen. No unusual abdominal calcifications. No evidence for pneumoperitoneum. Osseous structures are grossly intact. Extensive surgical clips throughout the pelvis. Severe ASVD (atherosclerotic vascular disease). RAD/Abdomen Single View IMPRESSION: 1. Diffuse colonic fecal retention without bowel dilatation; rule out constipation. at 2135 Reported and signed by: Deng Roland MD Electronically Signed: Deng Roland MD at 21:34 EST Tel , Service support ,
[2020-09-08] MEDS: Magnesium Citrate 300 ML PO (14:32)
[2020-09-08 17:25] LABS: Bedside Glucose 126 mg/dL (70-110)
--- NOTE | 2020-09-08 18:07 | NURSING ---
Pt stating that he was very tired, unable to keep eyes open today. Vitals obtained, Dr. Toscano aware, NNO, continue to monitor.
--- NOTE | 2020-09-08 18:08 | NURSING ---
Addendum entered by Odilia Tucker 09/08/20 18:24: Large results from SSE Original Note: Pt nauseated with small emesis this AM. Dr. Toscano updated and N.O. for KUB. N.O. received and patient and family aware. Mag citrate given at 14:35, pt tried to eat supper, large emesis followed by a large episode of incontinent stool. SSE given at this time. Dr. Toscano aware of all.
--- NOTE | 2020-09-08 18:52 | NURSING ---
pt with incont XLG loose stool. pt states he is feeling better. resting in bed, call light in reach.
[2020-09-08 21:35] LABS: Bedside Glucose 115 mg/dL (70-110)
--- NOTE | 2020-09-08 21:50 | NURSING ---
Addendum entered by Tiki Clayton 09/08/20 22:13: 2200: Dr. Toscano notified of hr, vitals, pt condition, new order for NS bolus. Original Note: Pt lying in bed, skin warm and dry, pale, pt states he's very tired. States he doesn't feel like his heart is racing, denies chest pain, denies n/t to extremities, denies shortness of breath, denies jaw pain. Please see vitals.
[2020-09-08] MEDS: 0.9% Normal Saline 1,000 ML 999 ML IV (22:43)
[2020-09-09 00:05] VITALS: BP 109/77; PULSE 100; RESP 20; TEMP 37.1; O2SAT 95
--- NOTE | 2020-09-09 00:05 | NURSING ---
Addendum entered by Tiki Clayton 09/09/20 00:33: 0025: Dr. Toscano notified of pt condition, VS and EKG, order to send pt to ER for eval. Report called to GERMÁN Foster. Transported to ER via bed. Original Note: IV NS bolus finished, sl flushed, pt c/o at this time of feeling chest discomfort and felling like my heart is thumping out of my chest. RT called for EKG, o2 placed at 2l per nc. HR irregular, lung sounds diminished, no crackles noted.
[2020-09-09 00:10] VITALS: RESP 36; O2SAT 94
--- NOTE | 2020-09-09 00:10 | EKG12_ITS ---
Test Reason : TACHY Blood Pressure : / mmHG Vent. Rate : 144 BPM Atrial Rate : 147 BPM P-R Int : 000 ms QRS Dur : 136 ms QT Int : 324 ms P-R-T Axes : 000 031 218 degrees QTc Int : 501 ms Atrial fibrillation with rapid ventricular response Non-specific intra-ventricular conduction block T wave abnormality, consider inferolateral ischemia Abnormal ECG Confirmed by DOMINIQUE MONTOYA, STARLA ([id number]), communications editor KONG PAGAN ([id number]) on 09/12/2020 10:29:49 AM Referred By: BRAYDEN Confirmed By:STARLA FOX MD
--- NOTE | 2020-09-09 00:40 | NURSING ---
Sid Cuevas called and updated on transfer to ER.
--- NOTE | 2020-09-09 17:56 | NURSING ---
TB test results given to this nurse by GERMÁN Romero on PCU. Pt is on that unit for observation today.
--- NOTE | 2020-09-10 08:11 | DCINST_ITS ---
- Discharge Diagnoses Current Active Problems: Current Active and Chronic Problems (Last Reviewed 08/23/20 @ 16:[address] Jason Lemus MD) Septic shock (Acute) Pneumonia (Acute) Debility (Acute) Nausea & vomiting (Acute) Acute kidney injury (Acute) Acute on chronic systolic congestive heart failure (Acute) Atrial fibrillation (Chronic) Hypokalemia (Chronic) Coronary artery disease (Chronic) Chronic kidney disease (Chronic) Hypertension (Chronic) Diabetes mellitus (Chronic) Prostate cancer (Chronic) Depression (Chronic) Elevated troponin (Acute 08/09/20) Left bundle branch block (LBBB) (Chronic) Hyperlipidemia (Chronic) You will use the following diet at home:: No restrictions, Regular, Other Your liquids should be the consistency of: Regular/Thin Discharge Activity: Use Walker Weight Bearing Status: Weight bearing as tolerated Call your doctor if you observe: Fever of 101 or Higher, Inability to urinate, Inability to have a bowel movement, Shortness of breath, Chest pain, Uncontrolled pain Allergies/Adverse Reactions: Allergies spironolactone Allergy (Verified 09/09/20 00:47) severe weakness lisinopril Adverse Reaction (Mild, Verified 09/09/20 00:47) Dry cough amiodarone Adverse Reaction (Verified 09/09/20 00:47) toxicity Medications to take at Discharge Apixaban [Eliquis] 2.5 mg PO BID 07/17/20 Aspirin E.C. [Ecotrin] 81 mg PO DAILY@0800 07/17/20 Glimepiride [Amaryl] 2 mg PO DAILY 07/17/20 Duloxetine Hcl [Cymbalta] 30 mg PO DAILY 08/09/20 Potassium Chloride 20 meq PO BID 08/21/20 Furosemide [Lasix] 40 mg PO DAILY 08/30/20 Menthol/Lanolin/Calamine/Znox [Calmoseptine Ointment] 1 applic TOPICAL BID 09/09/20 Metoprolol Tartrate [Lopressor (Beta Ivy)] 25 mg PO BID 09/09/20 Polyethylene Glycol 3350 [Miralax] 17 gm PO DAILY 09/09/20 Sacubitril/Valsartan 24/26 mg [Entresto 24 mg-26 mg Tablet] 1 ea PO BID 09/09/20 Senna/Docusate Sodium [Senokot-S, Melissa-Colace] 1 tab PO BID 09/09/20 Primary Care Physician: Abdoulaye Brock MD [Primary Care Provider] - Please follow up with your Primary Care Physician in: 1 week. Test Results: Test results from this visit will be discussed in further detail at your follow- up appointment, if applicable. Proposed Discharge Date: 09/10/20
--- NOTE | 2020-09-10 08:12 | PCM.DC.SUM ---
Discharge Date and Diagnosis - Problem List Patient Problems: Active and Suspected Problems (Last Reviewed 08/23/20 @ 16:[address] Jason Lemus MD) Septic shock (Acute) Pneumonia (Acute) Debility (Acute) Nausea & vomiting (Acute) Acute kidney injury (Acute) Acute on chronic systolic congestive heart failure (Acute) Elevated troponin (Acute 08/09/20) Date of Admission: 09/09/20 Date of Discharge: 09/10/20 - Primary Discharge Diagnosis Acute Problems: Active Problems (Last Reviewed 08/23/20 @ 16:[address] Jason Lemus MD) Septic shock (Acute) Pneumonia (Acute) Debility (Acute) Nausea & vomiting (Acute) Acute kidney injury (Acute) Acute on chronic systolic congestive heart failure (Acute) Elevated troponin (Acute 08/09/20) - Secondary Discharge Diagnosis Chronic Problems: Chronic Problems (Last Reviewed 08/23/20 @ 16:[address] Jason Lemus MD) Atrial fibrillation (Chronic) Hypokalemia (Chronic) Coronary artery disease (Chronic) Chronic kidney disease (Chronic) Hypertension (Chronic) Diabetes mellitus (Chronic) Prostate cancer (Chronic) Depression (Chronic) Persistent atrial fibrillation (Chronic) History of permanent cardiac pacemaker placement (Chronic 08/16/20) VVI 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 Bradycardia (Chronic) Atherosclerosis of coronary artery of [place] heart with angina pectoris (Chronic) History of non-ST elevation myocardial infarction (NSTEMI) (Chronic 05/2017) 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) CABG x 4: COLES-LAD, SVG-D1, SVG to proximal end of SVG to diagonal going to OM 2, and SVG-RPDA 10/30/16 Ischemic cardiomyopathy (Chronic) Secondary pulmonary arterial hypertension (Chronic) Left bundle branch block (LBBB) (Chronic) Essential (primary) hypertension (Chronic) Hyperlipidemia (Chronic) Hospital Course and Treatment Operations: None Procedures: None Summary of Care Provided: The patient is a 80 year old Male with below past medical history hospitalized for acute on chronic systolic congestive heart failure, complicated by acute kidney injury, sepsis ruled out, admitted to TCU with debility, here for rehabilitation, strengthening, prior to discharge home with spouse. 09/09/20 Resident developed chest pain, tachycardia, hypotension. Transferred to [facility] for Observation. Discharge to [facility] Emergency Department for evaluation, admission to hospital. Patient Problems: Active and Suspected Problems (Last Reviewed 08/23/20 @ 16:[address] Jason Lemus MD) Septic shock (Acute) Pneumonia (Acute) Debility (Acute) Nausea & vomiting (Acute) Acute kidney injury (Acute) Acute on chronic systolic congestive heart failure (Acute) Elevated troponin (Acute 08/09/20) - Physical Exam Vitals/I&O's: Vital Signs Temp Pulse Resp BP Pulse Ox 98.8 F 100 36 H 109/77 94 09/09/20 00:05 09/09/20 00:05 09/09/20 00:10 09/09/20 00:05 09/09/20 00:10 Oxygen Delivery Method Room Air Weight: 69 kg Body Mass Index (BMI) 21.7 Intake and Output for Last 24 Hours 09/08/20 09/09/20 09/10/20 23:59 23:59 23:59 Intake Total 1480 / 1480 Balance 1480 / 1480 Microbiology Past 72 Hours 09/07/20 14:15 Mucosa - Nose SARS-CoV-2 Antigen (Rapid) - Final Discharge Diet: No Restrictions Discharge Activity: Use Walker Weight Bearing Status: Weight bearing as tolerated Call your doctor if you observe: Fever of 101 or Higher, Inability to urinate, Inability to have a bowel movement, Shortness of breath, Chest pain, Uncontrolled pain Home Medications: Medications to take at Discharge Apixaban [Eliquis] 2.5 mg PO BID 07/17/20 Aspirin E.C. [Ecotrin] 81 mg PO DAILY@0800 07/17/20 Glimepiride [Amaryl] 2 mg PO DAILY 07/17/20 Duloxetine Hcl [Cymbalta] 30 mg PO DAILY 08/09/20 Potassium Chloride 20 meq PO BID 08/21/20 Furosemide [Lasix] 40 mg PO DAILY 08/30/20 Menthol/Lanolin/Calamine/Znox [Calmoseptine Ointment] 1 applic TOPICAL BID 09/09/20 Metoprolol Tartrate [Lopressor (Beta Ivy)] 25 mg PO BID 09/09/20 Polyethylene Glycol 3350 [Miralax] 17 gm PO DAILY 09/09/20 Sacubitril/Valsartan 24/26 mg [Entresto 24 mg-26 mg Tablet] 1 ea PO BID 09/09/20 Senna/Docusate Sodium [Senokot-S, Melissa-Colace] 1 tab PO BID 09/09/20 Primary Care Physician: Abdoulaye Brock MD [Primary Care Provider] - Please follow up with your Primary Care Physician in: 1 week. Disposition: Acute care Hospital Minutes spent on discharge:: 30 Patient Condition:: Guarded Medical Necessity - Tobacco Use Smoking Status: Never smoker Tobacco Use: Non-smoker Meaningful Use Info Meaningful Use Diagnoses (Choose all that apply): None applicable
== END 2020-09-10 00:12 | disposition short-term general hospital (02) | DRG 292 ==
PROVIDERS: Admitting Provider Family Medicine Geriatric Medicine; PCP Family Medicine; Visit Provider Family Medicine Geriatric Medicine
DX: I13.0 Hypertensive heart and chronic kidney disease with heart failure and stage 1 through stage 4 chronic kidney disease, or unspecified chronic kidney disease (principal); I50.42 Chronic combined systolic (congestive) and diastolic (congestive) heart failure; I48.19 Other persistent atrial fibrillation; E78.5 Hyperlipidemia, unspecified; I25.2 Old myocardial infarction; E11.22 Type 2 diabetes mellitus with diabetic chronic kidney disease; F32.9 Major depressive disorder, single episode, unspecified; I25.10 Atherosclerotic heart disease of native coronary artery without angina pectoris; I25.5 Ischemic cardiomyopathy; I27.21 Secondary pulmonary arterial hypertension; N18.9 Chronic kidney disease, unspecified; E87.6 Hypokalemia; Z85.46 Personal history of malignant neoplasm of prostate; Z95.0 Presence of cardiac pacemaker; Z95.1 Presence of aortocoronary bypass graft; F41.9 Anxiety disorder, unspecified; R00.0 Tachycardia, unspecified; R07.9 Chest pain, unspecified; I95.9 Hypotension, unspecified
CPT/HCPCS: 36415; 71046; 74018; 74019; 80048; 81001; 82962; 85025; 87426; 87635; 93005; 97110; 97116; 97162; 97166; 97530; 97535; 97802; J7030; J7040; A4216; J1940; U0003

== ENCOUNTER 2020-09-09 00:41 | Observation (INO) | payer MEDICARE, SELFPAY ==
[2020-09-09] VITALS (16 sets, daily range): BP systolic 97–126; BP diastolic 58–93; PULSE 83–145; RESP 18–30; TEMP 36.4–37.3; O2SAT 95–100; BMI 23.8; BMI 22.6
--- NOTE | 2020-09-09 00:52 | EKG12_ITS ---
Test Reason : AM EKG Blood Pressure : / mmHG Vent. Rate : 102 BPM Atrial Rate : 102 BPM P-R Int : 000 ms QRS Dur : 134 ms QT Int : 336 ms P-R-T Axes : 000 009 197 degrees QTc Int : 437 ms Atrial fibrillation Left bundle branch block Abnormal ECG When compared with ECG of 09-SEP-2020 00:07, MANUAL COMPARISON REQUIRED, DATA IS UNCONFIRMED Confirmed by DOMINIQUE MONTOYA, STARLA ([id number]), photograph editor JR SEVERINO ([id number]) on 09/11/2020 9:35:16 AM Referred By: Giovanna Bains Confirmed By:STARLA FOX MD
--- NOTE | 2020-09-09 00:54 | ED.VISSUMM ---
- ER Visit Summary Date of Service: 09/09/20 Chief Complaint: Elevated heart rate and chest discomfort History of Present Illness: The patient is a 80 M Istria of prior stroke, CAD, CHF, known A. fib anticoagulated on Eliquis, diabetes, hypertension, prostate CA, cardiomyopathy with an EF of 30%. Patient is also had a 5 way bypass, prostatectomy and pacemaker. Patient is status post septic shock was treated at [facility] and has been in the transitional care unit approximately last 10 days. He has had episodes of constipation on Thursday. Initially treated with mag citrate and then soapsuds enema. He had several bowel movements. But then appeared to have rapid heart rate and hypotension. Was treated with a fluid bolus. And was sent down the emergency department for further evaluation. Physical Examination: Elderly male initial vital signs are stable except for a heart rate of 145. Pulse ox 100% on 2 L. No hypoxia. Initial blood pressure 126/93. HEENT exam unremarkable. Neck nontender no JVD. Lungs clear to auscultation bilaterally. Heart tachycardic rate about 145. Appears to be A. fib RVR monitor. Abdomen soft nontender normal normal bowel sounds no peritoneal signs. Nondistended no signs of obstruction. Patient moving all 4 extremities. Calves nontender without edema or cords. Neurologically is awake alert. Answering his own questions and following commands. Acting appropriately. Test Results: EKG interpreted by me shows A. fib RVR with a rate of 144 with interventricular conduction delay. Unchanged from prior EKG from earlier tonight and one from earlier this month. S x-ray portable interpreted by myself shows cardiomegaly. Prior sternotomy. Vascular congestion in the bases with bilateral small pleural effusions. Otherwise no acute change. Also read by the radiologist and agrees. CBC shows a white count 10.9 hemoglobin 15. 14% bands. Chemistries unremarkable creatinine 1.4 normal gap INR 1.2. Troponin elevated 0.151 but previously was 0.450 and they were consistently elevated in the past. Emergency Department Course and Treatment: Patient with constipation and transitional care unit that appears to have gone into A. fib RVR with a history of the same. I spoke to his nurse on the transitional care unit. Patient be treated with IV Cardizem. Cardiac work-up started. P.o. aspirin for his chest pain. Repeat exam at 2:20 AM is resting comfortably. However he remains in A. fib RVR currently his rate is approximately 118. To be given a second dose of Cardizem. We will watch his blood pressure closely because currently his blood pressure is 102 systolic. Treatment Plan: Patient responded well to the Cardizem but remains in A. fib. I spoke to the hospitalist will be an observation admission to the PCU. Disposition: 24-hour observation the PCU Impression: Acute A. fib RVR with a history of A. fib Anticoagulated on Eliquis History of Cardiac bypass, pacemaker and low ejection fraction at 30% History of prior stroke History of diabetes This note was generated with [employer] dictation software. It may contain incorrect words, spelling, and punctuation that were not noted in review of the chart prior to signing ED Disposition - Plan for ED Patient: Referrals: Abdoulaye Brock MD [Primary Care Provider] -
[2020-09-09 00:59] LABS: Hematocrit 48.3 % (40-54); Hemoglobin 15.1 g/dL (13.0-16.5); Mean Corp Hgb Conc 31.3 g/dL (32-36); Mean Corpuscular Hgb 29.5 pg (27.0-32.0); Mean Corpuscular Volume 94.3 fL (80-94); Mean Platelet Vol. 11.4 fl (6.2-12.0); POSITIVE DIFFERENTIAL YES; POSITIVE MORPHOLOGY YES; Platelet Count 158 K/mm3 (150-450); RBC Distribution Width SD 51.4 fl (35.1-43.9); Red Blood Count 5.12 M/mm3 (4.6-6.2); White Blood Count 11.9 K/mm3 (4.4-11.0)
--- NOTE | 2020-09-09 01:04 | RAD_ITS ---
HISTORY: CHEST PAIN, NAUSEA, HYPOTENSION, AND TACHYCARDIA. XR Chest 1 View TECHNIQUE: Single frontal view of chest. # of images incl. paperwork: 1 COMPARISON: 09/04/2020 FINDINGS: LINES: Wireless pacer device. CARDIOVASCULAR STRUCTURES: Cardiomegaly. Poststernotomy/CABG. Borderline pulmonary venous congestion. LUNGS: Bilateral lower lobe opacities. PLEURA: Moderate size left and small right pleural effusion. No pneumothorax. BONES: No acute osseous abnormality of the thorax. RAD/Chest 1 View (Portable) IMPRESSION: 1. Moderate size left and small right pleural effusion. 2. Bilateral lower lobe atelectasis and less likely superimposed pneumonia. 3. No significant interval change of cardiopulmonary status. at 0155 Reported and signed by: Deng Roland MD Electronically Signed: Deng Roland MD at 1:53 EST Tel , Service support ,
[2020-09-09] MEDS: dilTIAZem 25 MG/5 ML Vial 20 MG IV BOLUS ×2 (01:05→02:31)
[2020-09-09] MEDS: Aspirin 81 MG TAB.CHEW 324 MG PO (01:05)
[2020-09-09 01:20] LABS: International Normalized Ratio 1.2
[2020-09-09 01:33] LABS: Anion Gap 6 (5-15); BUN 20 mg/dL (7-18); Calcium,Total 8.5 mg/dL (8.5-10.1); Chloride 103 mmol/L (98-107); Creatinine, Serum 1.43 mg/dL (0.70-1.30); EST Glomerular Filtration Rate 50 mL/min (>60); Est Glom Filt Rate - Afr Amer 61 mL/min (>60); Estimated Creatinine Clearance 39.83 ml/min; Glucose 104 mg/dL (74-106); Potassium 4.8 mmol/L (3.5-5.1); Sodium Level 136 mmol/L (136-145)
--- NOTE | 2020-09-09 01:34 | HP.PCM_ITS ---
Problem List (1) Atrial fibrillation with rapid ventricular response Status: Acute (2) Chronic kidney disease Status: Chronic Qualifiers: Chronic kidney disease stage: stage 3 (moderate) Chronic kidney disease stage 3 subtype: unspecified whether 3a or 3b Qualified Code(s): N18.30 - Chronic kidney disease, stage 3 unspecified (3) Diabetes mellitus Status: Chronic Qualifiers: Diabetes mellitus type: type 2 Diabetes mellitus halfway insulin use: without halfway use Diabetes mellitus complication status: with other specified complication Qualified Code(s): E11.69 - Type 2 diabetes mellitus with other specified complication (4) Prostate cancer Status: Chronic (5) Depression Status: Chronic Qualifiers: Depression Type: unspecified Qualified Code(s): F32.9 - Major depressive disorder, single episode, unspecified (6) Persistent atrial fibrillation Status: Chronic (7) History of permanent cardiac pacemaker placement Status: Chronic Comment: VVI 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 (8) Atherosclerosis of coronary artery of [place] heart with angina pectoris Status: Chronic Qualifiers: Coronary Disease-Associated Artery/Lesion type: [place] artery Qualified Code(s): I25.119 - Atherosclerotic heart disease of [place] coronary artery with unspecified angina pectoris (9) History of non-ST elevation myocardial infarction (NSTEMI) Status: Chronic (10) H/O coronary artery bypass surgery Status: Chronic Comment: CABG x 4: COLES-LAD, SVG-D1, SVG to proximal end of SVG to diagonal going to OM 2, and SVG-RPDA 10/30/16 (11) Ischemic cardiomyopathy Status: Chronic (12) Secondary pulmonary arterial hypertension Status: Chronic (13) Essential (primary) hypertension Status: Chronic (14) Hyperlipidemia Status: Chronic Qualifiers: Hyperlipidemia type: unspecified History of Present Illness Date of Admission: 09/09/20 Chief Complaint: Elevated HR, palpitations, chest pain. The patient is an 80 y/o M w/ PMHx: CKD stage III, CAD s/p CABG x 4, HTN, HLD, PAF, Chronic systolic and diastolic CHF/Ischemic cardiomyopathy, Diabetes mellitus type II, Hx Prostate CA, recent admission with placement 08/17/20 pacemaker secondary to Tachy-Philip Syndrome with concurrent Afib with RVR and Acute on chronic Systolic CHF exacerbation with return on 08/26/20 secondary to worsening fatigue with acute on chronic CHF exacerbation transitioned to SNF on 08/30/20 who now re-presents to the [facility] ED on 09/09/20 with history of recent difficulty with constipation with aggressive bowel regimen initiation however patient had then onset serial bowel movements and following had lower blood pressure and onset of significantly rapid heart rate treated with an IV fluid bolus and referral to ED for evaluation. Patient notes that his abdomen is feeling better following successive bowel movements. He denies any current chest pain following improvement of rate in the ED following Cardizem bolus. In the ED work-up included T 98.1, heart rate 145 with improvement of rate to 90- 100 following Cardizem bolus, BP 126/93, respiratory rate 30, percent on 2 L nasal cannula, EKG with atrial fibrillation with RVR with no acute evidence of ischemia, CXR without acute cardiopulmonary findings, CBC with WBCs 11.9, hemoglobin 15.1, platelet 158 without market shift, INR 1.2, PT 15, BMP with BUN/creatinine 20/1.43, troponin 0.151. Past Medical History Past Medical History (Chronic Problems): Chronic Problems (Last Reviewed 08/23/20 @ 16:[address] Jason Lemus MD) Atrial fibrillation (Chronic) Hypokalemia (Chronic) Coronary artery disease (Chronic) Chronic kidney disease (Chronic) Hypertension (Chronic) Diabetes mellitus (Chronic) Prostate cancer (Chronic) Depression (Chronic) Persistent atrial fibrillation (Chronic) History of permanent cardiac pacemaker placement (Chronic 08/16/20) VVI 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 Bradycardia (Chronic) Atherosclerosis of coronary artery of [place] heart with angina pectoris (Chronic) History of non-ST elevation myocardial infarction (NSTEMI) (Chronic 05/2017) 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) CABG x 4: COLES-LAD, SVG-D1, SVG to proximal end of SVG to diagonal going to OM 2, and SVG-RPDA 10/30/16 Ischemic cardiomyopathy (Chronic) Secondary pulmonary arterial hypertension (Chronic) Left bundle branch block (LBBB) (Chronic) Essential (primary) hypertension (Chronic) Hyperlipidemia (Chronic) Medical History: Medical History (Last Reviewed 08/23/20 @ 16:[address] Jason Lemus MD) Persistent atrial fibrillation (Chronic) I48.19 Elevated troponin (Acute) Onset Date: 08/09/20 R79.89 Atrial fibrillation with rapid ventricular response (Chronic) Onset Date: 08/09/20 I48.91 Acute on chronic systolic and diastolic heart failure, NYHA class 2 (Acute) I50.43 Acute kidney injury superimposed on chronic kidney disease (Acute) N17.9, N18.9 Bradycardia (Chronic) R00.1 Hypotension (Inactive) I95.9 Atherosclerosis of coronary artery of [place] heart with angina pectoris (Chronic) I25.119 History of non-ST elevation myocardial infarction (NSTEMI) (Chronic) Onset Date: 05/2017 I25.2 Ischemic cardiomyopathy (Chronic) I25.5 Secondary pulmonary arterial hypertension (Chronic) I27.21 Left bundle branch block (LBBB) (Chronic) I44.7 Essential (primary) hypertension (Chronic) I10 Hyperlipidemia (Chronic) E78.5 Barretts esophagus K22.70 Bilateral pleural effusion Onset Date: 11/2019 J90 CKD (chronic kidney disease) N18.9 Prostate cancer C61 Transient ischemic attack G45.9 Type 2 diabetes mellitus E11.9 Acute respiratory failure with hypoxemia (Resolved) J96.01 Dyspnea on exertion (Resolved) R06.09 Nausea and vomiting (Resolved) R11.2 Shortness of breath (Resolved) R06.02 Paroxysmal atrial fibrillation (Inactive) I48.0 Allergies spironolactone Allergy (Verified 09/09/20 00:47) severe weakness lisinopril Adverse Reaction (Mild, Verified 09/09/20 00:47) Dry cough amiodarone Adverse Reaction (Verified 09/09/20 00:47) toxicity Home Medications: Ambulatory Orders Medication Instructions Recorded Apixaban [Eliquis] 2.5 mg PO BID 07/17/20 Aspirin E.C. [Ecotrin] 81 mg PO DAILY@0800 07/17/20 Glimepiride [Amaryl] 2 mg PO DAILY 07/17/20 Duloxetine Hcl [Cymbalta] 30 mg PO DAILY 08/09/20 Potassium Chloride 20 meq PO BID 08/21/20 Furosemide [Lasix] 40 mg PO DAILY 08/30/20 Menthol/Lanolin/Calamine/Znox 1 applic TOPICAL BID 09/09/20 [Calmoseptine Ointment] Metoprolol Tartrate [Lopressor 25 mg PO BID 09/09/20 (Beta Ivy)] Polyethylene Glycol 3350 [Miralax] 17 gm PO DAILY 09/09/20 Sacubitril/Valsartan 24/26 mg 1 ea PO BID 09/09/20 [Entresto 24 mg-26 mg Tablet] Senna/Docusate Sodium [Senokot-S, 1 tab PO BID 09/09/20 Melissa-Colace] Surgical History: Surgical History (Last Reviewed 09/09/20 @ 03:[address] Giovanna Bains MD) History of permanent cardiac pacemaker placement (Chronic) Onset Date: 08/16/20 Z95.0 VVI 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 H/O coronary artery bypass surgery (Chronic) Onset Date: 10/30/16 Z95.1 CABG x 4: COLES-LAD, SVG-D1, SVG to proximal end of SVG to diagonal going to OM 2, and SVG-RPDA 10/30/16 History of cardioversion Onset Date: 03/30/20 Z98.890 History of colonoscopy Z98.890 History of dental surgery Z92.89 History of esophagogastroduodenoscopy (EGD) Z98.890 History of left heart catheterization Onset Date: 08/13/20 Z98.890 [place] 07/23/2018, 08/13/20 History of prostatectomy Z90.79 Surgical History: coronary bypass surgery - x 4., pacemaker implantation, - - Prostatectomy, cardioversion, oral surgery. Psychiatric History: Anxiety, Depression Lives: [facility] Smoking Status: Never smoker Tobacco Use: Non-smoker Alcohol: None Drugs: None - *Family History Paternal Family History: Family History (Last Reviewed 08/23/20 @ 16:[address] Jason Lemus MD) Sister Diabetes Sister Colon cancer Diabetes CVA (cerebral vascular accident) Sister Diabetes Brother Heart disease Diabetes History Items: - - Patient denies any market maternal or paternal family history including heart disease, diabetes, cancer. Maternal Family History: Family History (Last Reviewed 08/23/20 @ 16:[address] Jason Lemus MD) Sister Diabetes Sister Colon cancer Diabetes CVA (cerebral vascular accident) Sister Diabetes Brother Heart disease Diabetes History Items: - - Patient denies any market maternal or paternal family history including heart disease, diabetes, cancer. Sibling Family History: Family History (Last Reviewed 08/23/20 @ 16:[address] Jason Lemus MD) Sister Diabetes Sister Colon cancer Diabetes CVA (cerebral vascular accident) Sister Diabetes Brother Heart disease Diabetes History Items: - - Patient has siblings with diabetes, heart disease, strokes, colon cancer. Review of Systems Constitutional: Reports: Anorexia, Malaise, Weakness, Fatigue. Denies: Chills, Fever, Weight Change HEENT: Denies: Head Aches, Sinus Congestion, Sinus Drainage Cardiovascular: Reports: Chest Pain, Palpitations. Denies: Chest Pressure, Yvette st Tightness, Light Headedness, Orthopnea, Syncope Respiratory: Denies: Cough, Shortness of Breath, Shortness of breath at rest, Shortness of breath upon exertion, Sputum production Gastrointestinal: Denies: Abdominal Pain, Nausea, Vomiting Genitourinary: Denies: Dysuria Musculoskeletal: Reports: Back Pain, Joint Pain. Denies: Joint Tenderness Skin: Reports: Skin Changes. Denies: Rash, Wounds Neurological: Denies: Numbness, Tingling, Focal weakness Psychiatric: Reports: Depression. Denies: Anxiety, Homicidal Ideations, Suicidal Ideations Hematologic/ Lymphatic: Reports: Anemia, Easy Bruising, Easy Bleeding VTE Information - Inpt Only VTE Present on Admission: No VTE Mechan Device Prophylaxis: SCD's VTE Pharm Prophylaxis ordered?: No Reason prophylaxis not ordered:: Treatment Not Indicated - Continue home oral anticoagulation. Patient Problems: Active and Suspected Problems (Last Reviewed 08/23/20 @ 16:[address] Jason Lemus MD) Atrial fibrillation with rapid ventricular response (Acute 08/09/20) Subjective: Patient laying in the ED bed, fatigued appearance, trying to stay awake but states he is very tired, denies any further palpitations or chest discomfort, notes resolved, rate currently varying from 90-1 10. Objective: Physical Examination: General: awake, alert, oriented x 3 and cooperative, seated upright in the ED bed in no apparent distress, fatigued, notes resolved prior palpitations and chest discomfort.. Skin: normal color, turgor, no icterus, cyanosis except noted very staged ecchymoses. HEENT: AT/NC, EOMI, PERRLA, mildly dry MM, no carotid bruits or JVD noted. Lungs: CTA bilaterally, moderate effort, moderate decrease BL bases, no rales, ronchi or wheezing. Heart: Irregular irregular; no gallop, rub audible. Abdomen: soft, NTTP, ND, normal BS, no HSM. Extremities: no cyanosis or clubbing, bilateral pedal to distal delgado pitting edema. Neurological: patient awake, alert, oriented as noted; cognitive function intact, fatigued but attempting to stay awake; pupils equally reactive to light and accomodation; cranial nerves II-XII grossly normal, moving all 4 extremities, no focal deficits, strength moderately to severely globally decreased. Psychiatric: affect appears fatigued otherwise normal, no acute evidence of depressive or anxiety feelings. - Physical Exam Vitals/I&O's: Vital Signs Temp Pulse Resp BP Pulse Ox 98.1 F 83 30 H 115/89 H 99 09/09/20 00:42 09/09/20 01:01 09/09/20 01:01 09/09/20 01:01 09/09/20 01:01 Oxygen Flow Rate (L/min) 2 Oxygen Delivery Method Nasal Cannula Weight: 161 lb 2.526 oz Body Mass Index (BMI) 23.8 Laboratory Results 09/09/20 00:47: WBC 11.9 H, RBC 5.12, Hgb 15.1, Hct 48.3, MCV 94.3 H, MCH 29.5, MCHC 31.3 L, RDW Std Deviation 51.4 H, RDW Coeff of Shashank 15.0 H, Plt Count 158, MPV 11.4, Immature Gran % (Auto) 0.200, Neut % (Auto) 45.2 L, Lymph % (Auto) 9.8 L, [place] % (Auto) 9.4, Eos % (Auto) 35.1 H, Baso % (Auto) 0.3, Absolute Neuts (auto) 5.4, Absolute Lymphs (auto) 1.17, Nucleated RBC % 0 09/09/20 00:47: PT 15.0 H, INR 1.2 09/09/20 00:47: Sodium 136, Potassium 4.8, Chloride 103, Carbon Dioxide 27.0, A nion Gap 6, BUN 20 H, Creatinine 1.43 H, Estim Creat Clear Calc 39.83, Est GFR (MDRD) Af Amer 61, Est GFR (MDRD) Non-Af 50 L, BUN/Creatinine Ratio 14.0, Glucose 104, Calcium 8.5, Troponin I 0.151 H Assessment/Plan All Active Problems (Last Reviewed 08/23/20 @ 16:[address] Jason Lemus MD) Septic shock (Acute) Pneumonia (Acute) Debility (Acute) Nausea & vomiting (Acute) Acute kidney injury (Acute) Acute on chronic systolic congestive heart failure (Acute) Edema (Acute) Nausea (Acute) Elevated troponin (Acute 08/09/20) Atrial fibrillation with rapid ventricular response (Acute 08/09/20) Acute on chronic systolic and diastolic heart failure, NYHA class 2 (Acute) Acute kidney injury superimposed on chronic kidney disease (Acute) Acute respiratory failure with hypoxemia (Resolved) Amiodarone toxicity (Resolved) Dyspnea (Resolved) Dyspnea on exertion (Resolved) Nausea and vomiting (Resolved) Shortness of breath (Resolved) The patient is an 80 y/o M w/ PMHx: CKD stage III, CAD s/p CABG x 4, HTN, HLD, PAF, Chronic systolic and diastolic CHF/Ischemic cardiomyopathy, Diabetes mellitus type II, Hx Prostate CA who presents to the [facility] ED on 09/09/20 with history of recent difficulty with constipation with aggressive bowel regimen initiation however patient had then onset serial bowel movements and following had lower blood pressure and onset of significantly rapid heart rate treated with an IV fluid bolus and referral to ED for evaluation. 1. Chronic atrial fibrillation with RVR with determinate cardiac enzyme (0.151, decreased from 08/27/20 0.452): EKG in ED w/ atrial fibrillation w/ RVR. Patient administered IV Cardizem bolus in ED. Will admit to PCU, maintain on telemetry, obtain cardiac enzyme serial set although significantly improving from even recent presentation, obtain magnesium level, 08/16/2020 echocardiogram with normal LV, EF reduced to 30%, severe global LV systolic dysfunction, no pericardial effusion, small left pleural effusion thus we will not repeat, obtain TSH and magnesium level. We will continue patient home Eliquis regimen. We will give patient additional dose of his metoprolol now, currently rate controlled following ED IV Cardizem bolus, monitor cautiously and initiate additional regimen if needed. 3. Chronic Systolic/Diastolic CHF: 08/16/20 ECHO w/ normal LV, EF 30%, severe global LV systolic dysfunction, no pericardial effusion, small left pleural effusion. Will continue aspirin, apixaban, metoprolol regimen cautiously given IV Cardizem usage recently, Entresto with hold parameters, continue statin therapy. Magnesium level pending. 4. Chronic Kidney Disease Stage III: Admission BUN/Cr 20/1.43, baseline renal function 1.5-1.7, repeat BMP in AM. 5. History of Tachy-Philip Syndrome: Recent 08/17/20 pacemaker insertion, presenting as noted with atrial fibrillation with RVR, will request interrogation. 6. CAD: Status post CABG x 4 COLES-LAD, SVG-D1, SVG to proximal end of SVG to diagonal going to OM 2 and SVG-RPDA 10/30/16, will continue patient home aspirin, Eliquis, metoprolol regimen, Entresto, statin therapy. 7. Diabetes mellitus type II: Recent 08/10/2020 hemoglobin A1c 7.9%, hold oral home regimen, ADA diet, accu checks w/ ISS. 8. Hypertension: Continue home regimen including Cardizem drip as noted above, cautiously continue metoprolol, Lasix, Entresto, PRN hydralazine. 9. Hyperlipidemia: Continue home statin regimen. 10. Anxiety and depression: We will continue patient home Cymbalta regimen. 11. History of prostate cancer: Status post prostatectomy, remission. 12. Constipation: Will continue bowel regimen, judiciously given onset atrial fibrillation with RVR following aggressive regimen. 13. DVT prophylaxis: SCDs, continue home Eliquis regimen. 14. CODE status: Patient JEAN MARIE is his and living will is currently in place. Discussed CODE status at length including difference between FULL code, DNR-CCA and DNR-CC status. Following discussions about the differences in these status, requested DNR-CCA, no intubation status. Advanced Care Planning Face to Face Time: 16 minutes. OBSV E&M: 97450 Initial observation care L3 Procedures: 56317 Advncd Care Plan 30 Min
[2020-09-09 01:52] LABS: Eosinophil 2 % (0-5); Lymphocyte 16 % (19-41); Metamyelocyte 1 % (0-1); Monocyte 3 % (0-10); Neutrophil-Band 14 % (0-5); Neutrophil-Segmented 64 % (47-70); Total Cells Counted 100 (MANUAL DIFF)
[2020-09-09 01:57] LABS: Differential Indicated MANUAL DIFF
[2020-09-09 01:59] LABS: Absolute Lymphocyte Count 1.86 X10^3/uL (0.83-4.51); Absolute Neutrophil Count 9.3 X10^3/uL (2.0-7.7); Lymphocyte # 1.86 X10^3/ul (4.0); Neutrophil # 9.28 X10^3/uL (2.7-7.7)
[2020-09-09 02:00] LABS: Platelet Estimate ADEQUATE (ADEQ); Red Cell Morphology NORM C+C NORMAL (NORM C&C)
[2020-09-09] MEDS: 0.9% Normal Saline 1,000 ML 100 ML IV (03:38)
[2020-09-09] MEDS: Metoprolol Tartrate 25 MG Tablet PO (03:38)
[2020-09-09 04:06] LABS: Magnesium 2.5 mg/dL (1.6-2.6); Thyroid Stim Hormone (TSH) 2.47 uIU/mL (0.358-3.74)
[2020-09-09 04:59] LABS: Absolute Lymphocyte Count 1.02 X10^3/uL (0.83-4.51); Absolute Neutrophil Count 11.7 X10^3/uL (2.0-7.7); Basophil# 0.05 X10^3/uL; Basophil% 0.4 % (0-1); Hematocrit 49.3 % (40-54); Hemoglobin 14.9 g/dL (13.0-16.5); Lymphocyte # 1.02 X10^3/ul (4.0); Lymphocyte % 7.2 % (19-41); Mean Corp Hgb Conc 30.2 g/dL (32-36); Mean Corpuscular Hgb 28.9 pg (27.0-32.0); Mean Corpuscular Volume 95.7 fL (80-94); Mean Platelet Vol. 11.8 fl (6.2-12.0); Monocyte# 1.34 X10^3/uL; Monocyte% 9.5 % (0-10); NRBC Flagged by Analyzer 0 % (0-5); Neutrophil % 82.5 % (47-70); Platelet Count 152 K/mm3 (150-450); RBC Distribution Width CV 14.8 % (11.6-14.6); RBC Distribution Width SD 51.8 fl (35.1-43.9); Red Blood Count 5.15 M/mm3 (4.6-6.2); White Blood Count 14.2 K/mm3 (4.4-11.0)
[2020-09-09 05:21] LABS: ALB/GLOB Ratio 0.8 RATIO (0.9-2.4); AST(SGOT) 34 U/L (15-37); Alanine Aminotransfer ALT/SGPT 40 U/L (16-61); Albumin, Serum 2.8 g/dL (3.2-5.0); Alkaline Phosphatase 130 U/L (45-117); Anion Gap 6 (5-15); BUN 21 mg/dL (7-18); Calcium,Total 9.1 mg/dL (8.5-10.1); Chloride 100 mmol/L (98-107); EST Glomerular Filtration Rate 48 mL/min (>60); Est Glom Filt Rate - Afr Amer 58 mL/min (>60); Estimated Creatinine Clearance 37.32 ml/min; Globulin 3.6 g/dL (2.2-4.2); Glucose 109 mg/dL (74-106); Potassium 4.8 mmol/L (3.5-5.1); Protein, Total 6.4 g/dL (6.4-8.2); Sodium Level 137 mmol/L (136-145)
--- NOTE | 2020-09-09 05:55 | EKG12_ITS ---
Test Reason : TACHYCARDIA Blood Pressure : / mmHG Vent. Rate : 149 BPM Atrial Rate : 128 BPM P-R Int : 000 ms QRS Dur : 112 ms QT Int : 306 ms P-R-T Axes : 000 010 203 degrees QTc Int : 481 ms Atrial fibrillation Anteroseptal infarct , age undetermined ST & T wave abnormality, consider inferolateral ischemia or digitalis effect Left bundle branch block Confirmed by DOMINIQUE MONTOYA, STARLA ([id number]), scientific publications editor JR SEVERINO ([id number]) on 09/11/2020 9:38:41 AM Referred By: Giovanna Bains Confirmed By:STARLA FOX MD
[2020-09-09] MEDS: Metoprolol Tartrate 50 MG Tablet PO ×2 (08:52→23:51)
[2020-09-09] MEDS: Menthol/Lanolin/Calamine/Znox 113 GM Tube 1 APPLIC TOPICAL ×2 (08:52→22:52)
[2020-09-09] MEDS: Aspirin E.C. 81 MG Tablet PO (08:53)
[2020-09-09] MEDS: APIXABAN 2.5 MG TABLET PO ×2 (08:53→23:52)
[2020-09-09] MEDS: DULoxetine Hcl 30 MG Capsule PO (08:53)
[2020-09-09] MEDS: SACUBITRIL/VALSARTAN 24/26 MG TABLET 1 EACH PO ×2 (08:53→23:52)
[2020-09-09] MEDS: Furosemide 40 MG Tablet PO ×2 (08:53→17:17)
[2020-09-09] MEDS: Ondansetron 4 MG/2 ML Vial IV ×2 (09:06→22:58)
[2020-09-09] MEDS: Loperamide 2 MG Capsule PO (13:46)
--- NOTE | 2020-09-09 18:04 | PCM.PN.BLA ---
Progress Note Heart rate is controlled today, increase his metoprolol to 50 twice daily. He states he is also been having some significant diarrhea while in the TCU therefore we will also order an enteric panel and C. difficile. STROKE Vital Signs/Narrative: Vital Signs Temp Pulse Resp BP Pulse Ox 09/09/20 15:11 97.5 F L 104 H 18 97/58 L 95 09/09/20 14:56 111 H
[2020-09-09 23:45] LABS: Bedside Glucose 196 mg/dL (70-110)
[2020-09-09] MEDS: proCHLORPERazine 10 MG/2 ML Vial 5 MG IV (23:48)
[2020-09-10] VITALS (19 sets, daily range): BP systolic 87–105; BP diastolic 41–68; PULSE 84–126; RESP 18–20; TEMP 36.4–36.6; O2SAT 92–99
[2020-09-10 05:31] LABS: Absolute Lymphocyte Count 1.46 X10^3/uL (0.83-4.51); Absolute Neutrophil Count 7.6 X10^3/uL (2.0-7.7); Basophil# 0.05 X10^3/uL; Basophil% 0.5 % (0-1); Hematocrit 46.1 % (40-54); Hemoglobin 14.1 g/dL (13.0-16.5); Lymphocyte # 1.46 X10^3/ul (4.0); Lymphocyte % 14.7 % (19-41); Mean Corp Hgb Conc 30.6 g/dL (32-36); Mean Corpuscular Hgb 29.3 pg (27.0-32.0); Mean Corpuscular Volume 95.6 fL (80-94); Mean Platelet Vol. 12.2 fl (6.2-12.0); Monocyte# 0.84 X10^3/uL; Monocyte% 8.4 % (0-10); NRBC Flagged by Analyzer 0 % (0-5); Neutrophil # 7.57 X10^3/uL (2.7-7.7); Neutrophil % 76.1 % (47-70); Platelet Count 138 K/mm3 (150-450); RBC Distribution Width CV 14.8 % (11.6-14.6); RBC Distribution Width SD 52.1 fl (35.1-43.9); Red Blood Count 4.82 M/mm3 (4.6-6.2)
[2020-09-10] MEDS: dilTIAZem 25 MG/5 ML Vial 10 MG IV BOLUS (05:50)
[2020-09-10] MEDS: 0.9% Saline Lock 10 ML Syringe IV ×3 (05:50→21:19)
[2020-09-10 05:56] LABS: ALB/GLOB Ratio 0.8 RATIO (0.9-2.4); AST(SGOT) 23 U/L (15-37); Alanine Aminotransfer ALT/SGPT 34 U/L (16-61); Albumin, Serum 2.7 g/dL (3.2-5.0); Alkaline Phosphatase 114 U/L (45-117); Anion Gap 6 (5-15); BUN 24 mg/dL (7-18); BUN/Creat Ratio 17.3 RATIO (10-20); Calcium,Total 9.2 mg/dL (8.5-10.1); Chloride 101 mmol/L (98-107); Creatinine, Serum 1.39 mg/dL (0.70-1.30); EST Glomerular Filtration Rate 52 mL/min (>60); Est Glom Filt Rate - Afr Amer 63 mL/min (>60); Estimated Creatinine Clearance 40.28 ml/min; Globulin 3.5 g/dL (2.2-4.2); Glucose 163 mg/dL (74-106); Potassium 4.8 mmol/L (3.5-5.1); Protein, Total 6.2 g/dL (6.4-8.2); Sodium Level 136 mmol/L (136-145)
[2020-09-10] MEDS: Insulin Lispro 100 UNIT/ML INSULN.PEN SC ×2 (06:49→12:15)
[2020-09-10 07:05] LABS: Bedside Glucose 167 mg/dL (70-110)
[2020-09-10] MEDS: Senna/Docusate Sodium 1 Tablet PO ×2 (09:37→21:19)
[2020-09-10] MEDS: Aspirin E.C. 81 MG Tablet PO (09:37)
[2020-09-10] MEDS: SACUBITRIL/VALSARTAN 24/26 MG TABLET 1 EACH PO (09:38)
[2020-09-10] MEDS: DULoxetine Hcl 30 MG Capsule PO (09:38)
[2020-09-10] MEDS: APIXABAN 2.5 MG TABLET PO ×2 (09:39→21:18)
[2020-09-10] MEDS: Metoprolol Tartrate 50 MG Tablet PO ×2 (09:39→14:55)
[2020-09-10] MEDS: Furosemide 40 MG Tablet PO ×2 (09:39→17:48)
[2020-09-10] MEDS: Menthol/Lanolin/Calamine/Znox 113 GM Tube 1 APPLIC TOPICAL ×2 (09:41→21:17)
--- NOTE | 2020-09-10 10:14 | CASEMGMT ---
Patient is in contact precautions so SW called his room. CHARITY introduced self and role at [facility]. SW asked patient if he planned on returning to TCU when ready. He said he did not know. He said he would like to see what the doctor's say. Nichol MCDANIEL
--- NOTE | 2020-09-10 11:02 | CASEMGMT ---
Intro role of CM to patient and [employer] form explained re: Observation status for treatment of Atrial Fibrillation. Explained hospitalization will be paid per? insurance policy for Outpatient billing?and condition will continue to be evaluated for Inpt necessity. Also let pt know that [employer] sends paper in the billing packet with their phone number if questions arise. Discussed Pharmacy section of [employer] form and self administered medication guideline.? Pt verbalizes understanding and does not have further questions. Form signed and placed in chart, copy to pt. ADELINA DUNLAP BSN CM
[2020-09-10 12:50] LABS: Bedside Glucose 240 mg/dL (70-110)
--- NOTE | 2020-09-10 15:19 | EKG12_ITS ---
Test Reason : Blood Pressure : / mmHG Vent. Rate : 112 BPM Atrial Rate : 108 BPM P-R Int : 000 ms QRS Dur : 126 ms QT Int : 310 ms P-R-T Axes : 000 003 201 degrees QTc Int : 423 ms Atrial fibrillation Left bundle branch block Abnormal ECG When compared with ECG of 09-SEP-2020 05:04, MANUAL COMPARISON REQUIRED, DATA IS UNCONFIRMED Confirmed by DOMINIQUE MONTOYA, STARLA ([id number]), editor farm journal KONG PAGAN ([id number]) on 09/12/2020 10:56:24 AM Referred By: Giovanna Bains Confirmed By:STARLA FOX MD
[2020-09-10] MEDS: Digoxin 250 MCG/ML Ampul IV (16:35)
[2020-09-10 16:50] LABS: Bedside Glucose 107 mg/dL (70-110)
--- NOTE | 2020-09-10 17:12 | PCM.CONS.C ---
Reason for Consult Date of Consultation: 09/10/20 Reason for Consultation: Atrial fibrillation with rapid ventricular response rate History of Present Illness: The patient is a 80 year old M with multiple admissions to the hospital who was transferred from the transitional care unit through the emergency room because in an attempt to have a bowel motion his heart rate was noted to be elevated and uncontrolled. He was subsequently admitted to the telemetry care unit and I was consulted to reevaluate because the patient's blood pressure was low and heart rate was elevated. [] He does have a history of coronary artery disease status post previous ST elevation myocardial infarction in April 2017. It resulted in bypass surgery with a left internal mammary artery to the left anterior descending artery, saphenous vein graft to diagonal branch, saphenous vein graft to obtuse marginal branch from the diagonal branch and saphenous vein graft to the posterior descending artery. He also has a history of hypertension, hyperlipidemia, and previous cerebrovascular accident. He was admitted to the hospital again in July of this year with shortness of breath mild troponin elevation and he underwent a cardiac catheterization. It demonstrated patency of his bypass grafts and medical therapy was recommended. Please see report. Due to his ventricular response rate which was uncontrolled as he had reverted back to atrial fibrillation it was decided to implant a Micra pacemaker. He tolerated the procedure well. He did return 48 hours later with mild shortness of breath but it was because he had not been put on the same dose of his Lasix. He was given intravenous Lasix and discharged. He was discharged to the transitional care unit and while there the above occurred. He denies any chest pain he says he has minimal shortness of breath. He is currently lying flat in bed. Past Medical History Allergies/Adverse Reactions: Allergies spironolactone Allergy (Verified 09/09/20 00:47) severe weakness lisinopril Adverse Reaction (Mild, Verified 09/09/20 00:47) Dry cough amiodarone Adverse Reaction (Verified 09/09/20 00:47) toxicity Home Medications: Ambulatory Orders Medication Instructions Recorded Apixaban [Eliquis] 2.5 mg PO BID 07/17/20 Aspirin E.C. [Ecotrin] 81 mg PO DAILY@0800 07/17/20 Glimepiride [Amaryl] 2 mg PO DAILY 07/17/20 Duloxetine Hcl [Cymbalta] 30 mg PO DAILY 08/09/20 Potassium Chloride 20 meq PO BID 08/21/20 Furosemide [Lasix] 40 mg PO DAILY 08/30/20 Menthol/Lanolin/Calamine/Znox 1 applic TOPICAL BID 09/09/20 [Calmoseptine Ointment] Metoprolol Tartrate [Lopressor 25 mg PO BID 09/09/20 (Beta Ivy)] Polyethylene Glycol 3350 [Miralax] 17 gm PO DAILY 09/09/20 Sacubitril/Valsartan 24/26 mg 1 ea PO BID 09/09/20 [Entresto 24 mg-26 mg Tablet] Senna/Docusate Sodium [Senokot-S, 1 tab PO BID 09/09/20 Melissa-Colace] Past Medical History (Chronic Problems): Chronic Problems (Last Reviewed 08/23/20 @ 16:[address] Jason Lemus MD) Atrial fibrillation (Chronic) Hypokalemia (Chronic) Coronary artery disease (Chronic) Chronic kidney disease (Chronic) Hypertension (Chronic) Diabetes mellitus (Chronic) Prostate cancer (Chronic) Depression (Chronic) Persistent atrial fibrillation (Chronic) History of permanent cardiac pacemaker placement (Chronic 08/16/20) VVI 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 Bradycardia (Chronic) Atherosclerosis of coronary artery of [place] heart with angina pectoris (Chronic) History of non-ST elevation myocardial infarction (NSTEMI) (Chronic 05/2017) 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) CABG x 4: COLES-LAD, SVG-D1, SVG to proximal end of SVG to diagonal going to OM 2, and SVG-RPDA 10/30/16 Ischemic cardiomyopathy (Chronic) Secondary pulmonary arterial hypertension (Chronic) Left bundle branch block (LBBB) (Chronic) Essential (primary) hypertension (Chronic) Hyperlipidemia (Chronic) Surgical History: coronary bypass surgery - x 4., pacemaker implantation, - - Prostatectomy, cardioversion, oral surgery. Psychiatric History: Anxiety, Depression - *Family History Paternal Family History: Family History (Last Reviewed 08/23/20 @ 16:[address] Jason Lemus MD) Sister Diabetes Sister Colon cancer Diabetes CVA (cerebral vascular accident) Sister Diabetes Brother Heart disease Diabetes History Items: - - Patient denies any market maternal or paternal family history including heart disease, diabetes, cancer. Maternal Family History: Family History (Last Reviewed 08/23/20 @ 16:[address] Jason Lemus MD) Sister Diabetes Sister Colon cancer Diabetes CVA (cerebral vascular accident) Sister Diabetes Brother Heart disease Diabetes History Items: - - Patient denies any market maternal or paternal family history including heart disease, diabetes, cancer. Sibling Family History: Family History (Last Reviewed 08/23/20 @ 16:[address] Jason Lemus MD) Sister Diabetes Sister Colon cancer Diabetes CVA (cerebral vascular accident) Sister Diabetes Brother Heart disease Diabetes History Items: - - Patient has siblings with diabetes, heart disease, strokes, colon cancer. Lives: [facility] Smoking Status: Never smoker Tobacco Use: Non-smoker Alcohol: None Drugs: None Review of Systems - Review of Systems General: Reports: Fatigue, Malaise. Denies: Fever, Night Sweats HEENT: Denies: Vision Change Cardiovascular: Reports: Peripheral Edema, Palpitations. Denies: Chest Discomfort, Shortness of Breath, Orthopnea, PND, Lightheadedness, Dizziness, Near Syncope, Syncope Respiratory: Denies: Cough, Sputum Production, Hemoptysis Gastrointestinal: Denies: Hematemesis, Hematochezia, Melena Genitourinary: Denies: Dysuria, Hematuria Skin: Denies: Rash Neurological: Reports: Weakness. Denies: Dizziness Psychiatric: Denies: Anxiety Endocrine: Denies: Heat Intolerance Hematologic/ Lymphatic: Denies: Lymph Node Enlargement Subjectve: Pleasant man in no distress lying in bed Objective: Vital Signs Temp Pulse Resp BP Pulse Ox 97.7 F L 102 H 18 87/59 L 96 09/10/20 16:11 09/10/20 16:35 09/10/20 16:11 09/10/20 16:11 09/10/20 16:11 Oxygen Flow Rate (L/min) 2 Oxygen Delivery Method Room Air Weight: 153 lb 0.013 oz Body Mass Index (BMI) 22.6 Intake and Output for Last 24 Hours 09/08/20 09/09/20 09/10/20 23:59 23:59 23:59 Intake Total 240 / 240 Balance 240 / 240 General: Awake, Alert, Oriented x 3 HEENT: PERRL, EOMI, Sclera Non Icteric Neck: Supple, Good ROM, No Lymph Node Enlargement Lungs: Diminished Rj Bases Cardiovascular: Irregular Rhythm, Normal S1, Normal S2, No Murmurs, No Rubs, No Gallops Vascular: No Carotid Bruits, Normal Femoral Pulses, Normal Radial Pulses, Normal Dorsalis Pedal Pulse, Normal Posterior Tibial Pulses Abdomen: Bowel Sounds Present, Soft, Non Tender, No HSM, No Organomegaly Extremities: No Cyanosis, No Clubbing, Bilateral Edema +1 Musculoskeletal: No Erythema Skin: No Rashes Lymphatic: No Lymph Node Enlargement Neurological: No Focal Motor or Sensory Deficit Psych/Mental Status: Appropriate 09/10/20 04:30: WBC 10.0, RBC 4.82, Hgb 14.1, Hct 46.1, MCV 95.6 H, MCH 29.3, MCHC 30.6 L, Plt Count 138 L, MPV 12.2 H, Immature Gran % (Auto) 0.300, Neut % (Auto) 76.1 H, Lymph % (Auto) 14.7 L, [place] % (Auto) 8.4, Eos % (Auto) 0.0, Baso % (Auto) 0.5, Absolute Neuts (auto) 7.6, Nucleated RBC % 0 09/10/20 04:30: Sodium 136, Potassium 4.8, Chloride 101, Carbon Dioxide 29.0, Anion Gap 6, BUN 24 H, Creatinine 1.39 H, Est GFR (MDRD) Af Amer 63, Est GFR (MDRD) Non-Af 52 L, BUN/Creatinine Ratio 17.3, Glucose 163 H, Calcium 9.2, Total Bilirubin 1.10 H Rhythm: EKG: ECHO: Stress Test: Cardiac Cath: PCI: CT Surgery: Holter monitor: EPS: PPM: CXR: Chest CT Scan: Assessment/Plan 1. Persistent atrial fibrillation I48.19 Plan He does have persistent atrial fibrillation. He does have some episodes of increased ventricular response rate. His EKG demonstrated a heart rate of approximately 112 bpm. He is ventricular paced at 72 bpm he will continue the beta-ivy at the same dose. I would suggest the addition of digoxin 0.125 mg now and then 0.0625 mg every other day. This had been previously discontinued because he was nauseated and he was having worsening renal function. It appears his renal function has improved. 2. History of permanent cardiac pacemaker placement Z95.0 VVI 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 He is status post permanent pacemaker implantation it was interrogated during his recent office visit and it had a battery longevity of over 8 years. No changes were made with respect to the above he would continue to follow-up in the office. 3. H/O coronary artery bypass surgery Z95.1 CABG x 4: COLES-LAD, SVG-D1, SVG to proximal end of SVG to diagonal going to OM 2, and SVG-RPDA 10/30/16 He is status post coronary bypass surgery as noted above. His bypass grafts are patent. This was noted at his recent cardiac catheterization earlier this year. I would not recommend we make any changes with regard to this. We will continue with aggressive medical therapy. 4. Ischemic cardiomyopathy I25.5 Plan He does have a history of ischemic cardiomyopathy he will continue with his beta-ivy. He was placed on Entresto. This could be contributing to his hypotension. I will discontinue it for now and we will restart it when his heart rate is better controlled at a lower level. He would also continue with the current dose of his diuretics. 5. Congestive heart failure He does have evidence of systolic congestive heart failure. I would recommend continued diuresis and beta-ivy controlling his heart rate. We would add an SHASHA inhibitor or Entresto as tolerated. His renal function appears to be doing better at this time. Thank you for allowing me to participate in the care of your patient. Please don't hesitate to call if any issues arise.
--- NOTE | 2020-09-10 18:15 | PCM.PN.HOSP ---
Patient Problems: Active and Suspected Problems (Last Reviewed 08/23/20 @ 16:[address] Jason Lemus MD) Atrial fibrillation with rapid ventricular response (Acute 08/09/20) Reason for Visit: Follow-up on A. fib with RVR/constipation/diarrhea Subjective: Patient was seen and examined. He feels much improved. Denies chest pain or dizziness. His heart rate is uncontrolled. Objective: Physical exam: Vitals/I&O's: Vital Signs Temp Pulse Resp BP Pulse Ox 97.8 F 96 18 98/54 L 99 09/10/20 17:43 09/10/20 17:43 09/10/20 17:43 09/10/20 17:43 09/10/20 17:43 Oxygen Flow Rate (L/min) 2 Oxygen Delivery Method Room Air Weight: 69.4 kg Body Mass Index (BMI) 22.6 Intake and Output for Last 24 Hours 09/08/20 09/09/20 09/10/20 23:59 23:59 23:59 Intake Total / 480 / 480 Balance 480 / 480 General: Alert, Oriented x3, Cooperative HEENT: Atraumatic, PERRLA, EOMI, Normocephalic Oral: Moist Mucosa Neck: Supple Lungs: Diminished Cardiovascular: Regular rate, Regular Rhythm, Normal S1, Normal S2, No murmurs Abdomen: Bowel Sounds Present, Soft, Non Tender, Non-Distended, No Hepato-splenomegaly Extremities: No edema Skin: No rashes Musculoskeletal: No Tenderness to Palpation of Joints or Extremities Lymphatic: No Cervical, Supraclavicular, or Inguinal Adenopathy Neurological: Cranial nerves II-XII grossly intact, Neuro grossly intact Psych/Mental Status: Normal Affect, Appropriate Laboratory Results 09/09/20 22:49: POC Glucose 196 H 09/10/20 04:30: WBC 10.0, RBC 4.82, Hgb 14.1, Hct 46.1, MCV 95.6 H, MCH 29.3, MCHC 30.6 L, RDW Std Deviation 52.1 H, RDW Coeff of Shashank 14.8 H, Plt Count 138 L, MPV 12.2 H, Immature Gran % (Auto) 0.300, Neut % (Auto) 76.1 H, Lymph % (Auto) 14.7 L, [place] % (Auto) 8.4, Eos % (Auto) 0.0, Baso % (Auto) 0.5, Absolute Neuts (auto) 7.6, Absolute Lymphs (auto) 1.46, Nucleated RBC % 0 09/10/20 04:30: Sodium 136, Potassium 4.8, Chloride 101, Carbon Dioxide 29.0, Anion Gap 6, BUN 24 H, Creatinine 1.39 H, Estim Creat Clear Calc 40.28, Est GFR (MDRD) Af Amer 63, Est GFR (MDRD) Non-Af 52 L, BUN/Creatinine Ratio 17.3, Glucose 163 H, Calcium 9.2, Total Bilirubin 1.10 H, AST 23, ALT 34, Alkaline Phosphatase 114, Total Protein 6.2 L, Albumin 2.7 L, Globulin 3.5, Albumin/Globulin Ratio 0.8 L 09/10/20 06:47: POC Glucose 167 H 09/10/20 12:08: POC Glucose 240 H 09/10/20 16:20: POC Glucose 107 Current Medications Acetaminophen (Acetaminophen 325 Mg Tablet) 650 mg PO Q6H PRN PRN PRN Reason: Pain Score 1-10/Temp > 100.7 F Al Hydroxide/Mg Hydroxide (Mag Hydrox/Al Hydrox/Simeth 30 Ml Udc) 30 ml PO Q6H PRN PRN PRN Reason: Gastric Burning Apixaban (Apixaban 2.5 Mg Tablet) 2.5 mg PO BID [facility] Last Admin: 09/10/20 09:39 Dose: 2.5 mg Documented by: Aspirin (Aspirin E.C. 81 Mg Tablet) 81 mg PO DAILY@0800 [facility] Last Admin: 09/10/20 09:37 Dose: 81 mg Documented by: Calamine/Phenol (Menthol/Lanolin/Calamine/Znox 113 Gm Tube) 1 applic TOPICAL BID [facility]; Protocol Last Admin: 09/10/20 09:41 Dose: 1 applicatio Documented by: Duloxetine HCl (Duloxetine Hcl 30 Mg Capsule) 30 mg PO DAILY [facility] Last Admin: 09/10/20 09:38 Dose: 30 mg Documented by: Furosemide (Furosemide 40 Mg Tablet) 40 mg PO DAILY [facility] Furosemide (Furosemide 40 Mg Tablet) 40 mg PO BIDLX [facility] Stop: 09/11/20 18:01 Last Admin: 09/10/20 17:48 Dose: 40 mg Documented by: Guaifenesin (Guaifenesin 10 Ml Udc (200mg/10ml)) 20 ml PO Q4H PRN PRN PRN Reason: COUGH Sodium Chloride () 250 mls @ 15 mls/hr IV .[id number] PRN PRN Reason: Saline Flush Sodium Chloride () 250 mls @ 15 mls/hr IV .[id number] PRN PRN Reason: Saline Flush Sodium Chloride () 250 mls @ 15 mls/hr IV .[id number] PRN PRN Reason: Additional IVPB Infusion Insulin Human Lispro (Insulin Lispro 100 Unit/Ml Insuln.Pen) 0 unit SC [facility]; Protocol Last Admin: 09/10/20 16:21 Dose: Not Given Documented by: Loperamide HCl (Loperamide 2 Mg Capsule) 2 mg PO Q6H PRN PRN PRN Reason: Diarrhea Last Admin: 09/09/20 13:46 Dose: 2 mg Documented by: Melatonin (Melatonin 3 Mg Tablet) 3 mg PO QHS PRN PRN PRN Reason: INSOMNIA Metoprolol Tartrate (Metoprolol Tartrate 100 Mg Tablet) 100 mg PO BID [facility] Nitroglycerin (Nitroglycerin (Inpatient Use) 0.4 Mg Tab.Subl) 0.4 mg SUBLINGUAL Q5M PRN PRN Reason: CARDIAC/CHEST PAIN Ondansetron HCl (Ondansetron 4 Mg/2 Ml Vial) 4 mg IV Q8H PRN PRN PRN Reason: NAUSEA/VOMITING Last Admin: 09/09/20 22:58 Dose: 4 mg Documented by: Polyethylene Glycol (Polyethylene Glycol 3350 17 Gm Packet) 17 gm PO DAILY [facility] Last Admin: 09/10/20 09:39 Dose: Not Given Documented by: Potassium Chloride (Potassium Chloride 20 Meq Tablet) 20 meq PO BID [facility] Last Admin: 09/10/20 09:37 Dose: 20 meq Documented by: Prochlorperazine Edisylate (Prochlorperazine 10 Mg/2 Ml Vial) 5 mg IV Q4H PRN PRN PRN Reason: Breakthrough Nausea/Vomiting Last Admin: 09/09/20 23:48 Dose: 5 mg Documented by: Senna/Docusate Sodium (Senna/Docusate Sodium 1 Tablet) 1 tablet PO BID [facility] Last Admin: 09/10/20 09:37 Dose: 1 tablet Documented by: Sodium Chloride (0.9% Saline Lock 10 Ml Syringe) 10 - 40 ml IV UD PRN PRN Reason: SALINE FLUSH Last Admin: 09/10/20 16:35 Dose: 10 ml Documented by: Sodium Chloride (0.9% Saline Lock 10 Ml Syringe) 10 - 40 ml IV UD PRN PRN Reason: SALINE FLUSH Throat Lozenges (Benzocaine/Menthol 1 Lozenge) 1 lozenge MUCOUS MEM Q2H PRN PRN PRN Reason: SORE THROAT STROKE Vital Signs/Narrative: Vital Signs Temp Pulse Resp BP Pulse Ox 09/10/20 17:43 97.8 F 96 18 98/54 L 99 09/10/20 16:35 102 H 09/10/20 16:11 97.7 F L 99 18 87/59 L 96 09/10/20 15:16 112 H 09/10/20 15:00 117 H 09/10/20 14:55 97 105/64 Medical Necessity - Tobacco Use Smoking Status: Never smoker Tobacco Use: Non-smoker Assessment/Plan All Active Problems (Last Reviewed 08/23/20 @ 16:[address] Jason Lemus MD) Septic shock (Acute) Pneumonia (Acute) Debility (Acute) Nausea & vomiting (Acute) Acute kidney injury (Acute) Acute on chronic systolic congestive heart failure (Acute) Edema (Acute) Nausea (Acute) Elevated troponin (Acute 08/09/20) Atrial fibrillation with rapid ventricular response (Acute 08/09/20) Acute on chronic systolic and diastolic heart failure, NYHA class 2 (Acute) Acute kidney injury superimposed on chronic kidney disease (Acute) Acute respiratory failure with hypoxemia (Resolved) Amiodarone toxicity (Resolved) Dyspnea (Resolved) Dyspnea on exertion (Resolved) Nausea and vomiting (Resolved) Shortness of breath (Resolved) 1. A. fib with RVR, likely secondary to dehydration and decrease in his beta-blockers on account of hypotension Resumed back on metoprolol 100 mg p.o. twice daily Cardiology consulted?appreciate recommendations, started on digoxin Continue on apixaban. Will continue to monitor 2. Status post recent Micra pacemaker, HR is elevated now Due to monitor 3. CAD status post CABG/ischemic cardiomyopathy, EF 30% Continue on aspirin, metoprolol, 4. CKD stage III, stable, at baseline Repeat blood work in a.m. 5. Type II DM, blood sugars are fair Continue with insulin sliding scale and blood glucose checks 6. Hypertension, relatively hypotensive now, Changes made to medications; continue to monitor 7. Anxiety/depression, continue on Cymbalta 8. Recent diarrhea secondary to aggressive bowel regimen, patient has not had any bowel movement since We will continue to monitor 9. DVT PPx-continue on apixaban Inpatient E&M: 45299 Subs Hosp L2
[2020-09-10] MEDS: Metoprolol Tartrate 100 MG Tablet PO (21:18)
[2020-09-10 21:50] LABS: Bedside Glucose 122 mg/dL (70-110)
[2020-09-11] VITALS (10 sets, daily range): BP systolic 93–114; BP diastolic 56–65; PULSE 82–125; RESP 16–20; TEMP 36.4–37.1; O2SAT 93–99
[2020-09-11 06:50] LABS: Bedside Glucose 118 mg/dL (70-110)
[2020-09-11 08:03] LABS: Absolute Lymphocyte Count 1.39 X10^3/uL (0.83-4.51); Absolute Neutrophil Count 6.2 X10^3/uL (2.0-7.7); Basophil# 0.05 X10^3/uL; Basophil% 0.6 % (0-1); Hematocrit 46.6 % (40-54); Hemoglobin 13.9 g/dL (13.0-16.5); Lymphocyte # 1.39 X10^3/ul (4.0); Lymphocyte % 16.5 % (19-41); Mean Corp Hgb Conc 29.8 g/dL (32-36); Mean Corpuscular Hgb 28.5 pg (27.0-32.0); Mean Corpuscular Volume 95.5 fL (80-94); Mean Platelet Vol. 12.2 fl (6.2-12.0); Monocyte% 9.5 % (0-10); NRBC Flagged by Analyzer 0 % (0-5); Neutrophil # 6.18 X10^3/uL (2.7-7.7); Neutrophil % 73.3 % (47-70); Platelet Count 125 K/mm3 (150-450); RBC Distribution Width CV 14.6 % (11.6-14.6); RBC Distribution Width SD 50.9 fl (35.1-43.9); Red Blood Count 4.88 M/mm3 (4.6-6.2); White Blood Count 8.4 K/mm3 (4.4-11.0)
[2020-09-11 08:26] LABS: ALB/GLOB Ratio 0.7 RATIO (0.9-2.4); AST(SGOT) 23 U/L (15-37); Alanine Aminotransfer ALT/SGPT 29 U/L (16-61); Albumin, Serum 2.5 g/dL (3.2-5.0); Alkaline Phosphatase 109 U/L (45-117); Anion Gap 5 (5-15); BUN 22 mg/dL (7-18); BUN/Creat Ratio 16.8 RATIO (10-20); Calcium,Total 8.9 mg/dL (8.5-10.1); Chloride 102 mmol/L (98-107); Creatinine, Serum 1.31 mg/dL (0.70-1.30); EST Glomerular Filtration Rate 56 mL/min (>60); Est Glom Filt Rate - Afr Amer 67 mL/min (>60); Estimated Creatinine Clearance 43.23 ml/min; Globulin 3.5 g/dL (2.2-4.2); Glucose 106 mg/dL (74-106); Potassium 4.4 mmol/L (3.5-5.1); Sodium Level 137 mmol/L (136-145)
[2020-09-11] MEDS: Furosemide 40 MG Tablet PO (09:02)
[2020-09-11] MEDS: APIXABAN 2.5 MG TABLET PO (09:02)
[2020-09-11] MEDS: Aspirin E.C. 81 MG Tablet PO (09:02)
[2020-09-11] MEDS: Metoprolol Tartrate 100 MG Tablet PO (09:03)
[2020-09-11] MEDS: DULoxetine Hcl 30 MG Capsule PO (09:03)
[2020-09-11] MEDS: Senna/Docusate Sodium 1 Tablet PO (09:03)
[2020-09-11] MEDS: Menthol/Lanolin/Calamine/Znox 113 GM Tube 1 APPLIC TOPICAL (09:04)
--- NOTE | 2020-09-11 09:10 | PN.CARD_ITS ---
Subjectve: Patient seen and evaluated. Appears to be doing better this morning. Sitting down eating breakfast. Objective: Vital Signs Temp Pulse Resp BP Pulse Ox 98.1 F 125 H 18 114/56 L 98 09/11/20 09:01 09/11/20 09:03 09/11/20 09:01 09/11/20 09:03 09/11/20 09:01 Oxygen Flow Rate (L/min) 2 Oxygen Delivery Method Room Air Weight: 154 lb 15.759 oz Body Mass Index (BMI) 22.6 Intake and Output for Last 24 Hours 09/09/20 09/10/20 09/11/20 23:59 23:59 23:59 Intake Total 1965. / 600 / 600 0 / 0 Output Total 0 / 0 Balance 600 / 600 0 / 0 General: Awake, Alert, Oriented x 3 HEENT: PERRL, EOMI, Sclera Non Icteric Neck: Supple, Good ROM, No Lymph Node Enlargement Lungs: Clear to auscultation Cardiovascular: Irregular Rhythm, Normal S1, Normal S2, No Murmurs, No Rubs, No Gallops Vascular: No Carotid Bruits, Normal Femoral Pulses, Normal Radial Pulses, Normal Dorsalis Pedal Pulse, Normal Posterior Tibial Pulses Abdomen: Bowel Sounds Present, Soft, Non Tender, No HSM, No Organomegaly Extremities: No Cyanosis, No Clubbing, No edema Neurological: No Focal Motor or Sensory Deficit 09/11/20 07:00: WBC 8.4, RBC 4.88, Hgb 13.9, Hct 46.6, MCV 95.5 H, MCH 28.5, MCHC 29.8 L, Plt Count 125 L, MPV 12.2 H, Immature Gran % (Auto) 0.100, Neut % (Auto) 73.3 H, Lymph % (Auto) 16.5 L, [place] % (Auto) 9.5, Eos % (Auto) 0.0, Baso % (Auto) 0.6, Absolute Neuts (auto) 6.2, Nucleated RBC % 0 09/11/20 07:00: Sodium 137, Potassium 4.4, Chloride 102, Carbon Dioxide 30.0, Anion Gap 5, BUN 22 H, Creatinine 1.31 H, Est GFR (MDRD) Af Amer 67, Est GFR (MDRD) Non-Af 56 L, BUN/Creatinine Ratio 16.8, Glucose 106, Calcium 8.9, Total Bilirubin 1.30 H Rhythm: EKG: ECHO: Stress Test: Cardiac Cath: PCI: CT Surgery: Holter monitor: EPS: PPM: CXR: Chest CT Scan: Medical Necessity - Tobacco Use Smoking Status: Never smoker Tobacco Use: Non-smoker Assessment/Plan 1. Persistent atrial fibrillation I48.19 Plan He does have persistent atrial fibrillation. He does have some episodes of increased ventricular response rate. His EKG demonstrated a heart rate of approximately 112 bpm. He is ventricular paced at 72 bpm he will continue the beta-kelsey at the same dose. I would suggest the addition of digoxin 0.125 mg now and then 0.125 mg every day. This had been previously discontinued because he was nauseated and he was having worsening renal function. It appears his renal function has improved. * Would recommend a digoxin level in a week 2. History of permanent cardiac pacemaker placement Z95.0 VVI 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 He is status post permanent pacemaker implantation it was interrogated during his recent office visit and it had a battery longevity of over 8 years. No changes were made with respect to the above he would continue to follow-up in the office. 3. H/O coronary artery bypass surgery Z95.1 CABG x 4: COLES-LAD, SVG-D1, SVG to proximal end of SVG to diagonal going to OM 2, and SVG-RPDA 10/30/16 He is status post coronary bypass surgery as noted above. His bypass grafts are patent. This was noted at his recent cardiac catheterization earlier this year. I would not recommend we make any changes with regard to this. We will continue with aggressive medical therapy. 4. Ischemic cardiomyopathy I25.5 Plan He does have a history of ischemic cardiomyopathy he will continue with his beta-kelsey. He was placed on Entresto. This could be contributing to his hypotension. I will discontinue it for now and we will restart it when his heart rate is better controlled at a lower level. He would also continue with the current dose of his diuretics. * I would like him to be a lot more stable before starting him on the Entresto from the blood pressure standpoint. 5. Congestive heart failure * He does have evidence of systolic congestive heart failure. I would recommend continued diuresis and beta-kelsey controlling his heart rate. We would add an SHASHA inhibitor or Entresto as tolerated. His renal function appears to be doing better at this time. * Prefer his blood pressure to be more stable before adding the Entresto * Thank you for allowing me to participate in the care of your patient. Please don't hesitate to call if any issues arise. * He can probably be transferred back to the transitional care unit this afternoon.
--- NOTE | 2020-09-11 09:58 | PCM.TXEXTCAR ---
- Diet 09/09/20 14:03 Diet: Regular - No Added Salt Food consistency:: Regular Liquid Consistency:: Regular/Thin Type of Dietary Supplement:: glucerna Is pt able to select menu?: No Diet Comments: 120mL chocolate or strawberry glucerna; small portions - Routine Orders/Code Status Keep PO Greater than or Equal to (%): 94 - Encourage use of incentive spirometer Routine Lab Work: CBC - within 3 days, BMP - within 3 days Code Status: DNRCC-A - No intubation - Therapies Weight Bearing: Weight bearing as tolerated Physical Therapy: Eval and Treat Occupational Therapy: Eval and Treat - Allergies/Procedures Done in Hospital Allergies/Adverse Reactions: Allergies spironolactone Allergy (Verified 09/09/20 00:47) severe weakness lisinopril Adverse Reaction (Mild, Verified 09/09/20 00:47) Dry cough amiodarone Adverse Reaction (Verified 09/09/20 00:47) toxicity Procedures: None - Type of Care/Length of Stay Estimated LOS: Convalescent Care Less Than 30 days Type of Care Needed: Skilled Rehab Potential: Good Prognosis: Good - Additional Orders/Day of Discharge Additional Orders: Check digoxin level in 1 week. Encourage use of incentive spirometer. Check blood work within 3 days. Daily weight, CHF protocol, restrict fluid intake to 1500mls. Note that patient's Amaryl was decreased from 2mg to 1mg because patient was not eating well and blood sugars were relatively controlled. May increase back to 2mg if needed for uncontrolled blood glucose levels. Day of Discharge: 09/11/20 - Dietary and Speech Recommendations Dietitian Recommendations/Changes: Will change diet to regular, no added salt until PO intake at meals improves; then recommend cardiac, CHO controlled diet. Will add Glucerna w/ meals. Small portions per pt request. - Follow Up Care Primary Care Physician: Abdoulaye Brock MD [Primary Care Provider] - Please follow up with your Primary Care Physician in: within 2 weeks Please Follow Up With: Jaosn Lemus MD When: in 1-2 weeks
--- NOTE | 2020-09-11 10:01 | CASEMGMT ---
Dr Carbone told SW that patient is ready for d/c back to TCU today. She spoke with Dr Lemus. CHARITY met with patient, introduced self and role at [facility]. SW let him know that the physician said she is going to discharge him back to TCU today. He was okay with this plan. CHARITY called Jaki in TCU and let her know patient is returning today. Plan: d/c back to [facility] TCU today. Nichol PURDY MSW
--- NOTE | 2020-09-11 10:06 | PCM.DC.SUM ---
Discharge Date and Diagnosis - Problem List Patient Problems: Active and Suspected Problems (Last Reviewed 08/23/20 @ 16:[address] Jason Lemus MD) Atrial fibrillation with rapid ventricular response (Acute 08/09/20) Date of Admission: 09/09/20 Date of Discharge: 09/11/20 - Primary Discharge Diagnosis Acute Problems: Active Problems (Last Reviewed 08/23/20 @ 16:[address] Jason Lemus MD) Atrial fibrillation with rapid ventricular response (Acute 08/09/20) Hypotension Diarrhea, iatrogenic - Secondary Discharge Diagnosis Chronic Problems: Chronic Problems (Last Reviewed 08/23/20 @ 16:[address] Jason Lemus MD) Atrial fibrillation (Chronic) Hypokalemia (Chronic) Coronary artery disease (Chronic) Chronic kidney disease (Chronic) Hypertension (Chronic) Diabetes mellitus (Chronic) Prostate cancer (Chronic) Depression (Chronic) Persistent atrial fibrillation (Chronic) History of permanent cardiac pacemaker placement (Chronic 08/16/20) VVI 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 Bradycardia (Chronic) Atherosclerosis of coronary artery of [place] heart with angina pectoris (Chronic) History of non-ST elevation myocardial infarction (NSTEMI) (Chronic 05/2017) 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) CABG x 4: COLES-LAD, SVG-D1, SVG to proximal end of SVG to diagonal going to OM 2, and SVG-RPDA 10/30/16 Ischemic cardiomyopathy (Chronic) Secondary pulmonary arterial hypertension (Chronic) Left bundle branch block (LBBB) (Chronic) Essential (primary) hypertension (Chronic) Hyperlipidemia (Chronic) Hospital Course and Treatment Imaging Results: Clinical Impression(s) from Imaging Studies Chest X-Ray 09/09/20 01:04 IMPRESSION: 1. Moderate size left and small right pleural effusion. 2. Bilateral lower lobe atelectasis and less likely superimposed pneumonia. 3. No significant interval change of cardiopulmonary status. at 0155 Reported and signed by: Deng Roland MD Electronically Signed: Deng Roland MD at 1:53 EST Tel , Service support , Cardiology Operations: None Procedures: None Summary of Care Provided: The patient is a 80 year old M with multiple comorbidities including CAD status post CABG, chronic ischemic cardiomyopathy, tachybradycardia syndrome status post recent Micra who was recently admitted and discharged after a septic shock secondary to pneumonia. Patient was undergoing subacute rehab in TCU when he he had complained of constipation. He was aggressively treated with mag citrate and soapsuds enema. He had several bowel movements later on. Subsequently patient developed rapid heart rate with hypotension. He received fluid boluses and was sent to the emergency room for further evaluation. The ED, patient was found to have A. fib with RVR, his heart rate was in the 145. He was started on IV Cardizem continued on Cardizem drip. His home metoprolol was decreased to 25 mg twice daily on account of hypotension. With patient persistently in RVR, his Toprol was increased to 50 mg twice daily. His heart rate continued to be tenuous with relative hypotension. Cardiology was consulted and recommended start of digoxin and for his home Entresto to be held. Patient heart rate was improved and he generally felt improved. He was continued on Lasix 40 mg p.o. twice daily. He was discharged to the TCU. He will need to have his dig level rechecked within a week. He will need to follow-up with cardiology also in a week. Patient Problems: Active and Suspected Problems (Last Reviewed 08/23/20 @ 16:[address] Jason Lemus MD) Atrial fibrillation with rapid ventricular response (Acute 08/09/20) Subjective: On the day of discharge, patient was seen and examined. Denied any new complaints. Objective: Physical exam: General: Alert, Oriented x3, Cooperative HEENT: Atraumatic, PERRLA, EOMI, Normocephalic Oral: Moist Mucosa Neck: Supple Lungs: Diminished Cardiovascular: Regular rate, Regular Rhythm, Normal S1, Normal S2, No murmurs Abdomen: Bowel Sounds Present, Soft, Non Tender, Non-Distended, No Hepato-splenomegaly Extremities: No edema Skin: No rashes Musculoskeletal: No Tenderness to Palpation of Joints or Extremities Lymphatic: No Cervical, Supraclavicular, or Inguinal Adenopathy Neurological: Cranial nerves II-XII grossly intact, Neuro grossly intact Psych/Mental Status: Normal Affect, Appropriate La - Physical Exam Vitals/I&O's: Vital Signs Temp Pulse Resp BP Pulse Ox 98.1 F 125 H 18 114/56 L 98 09/11/20 09:01 09/11/20 09:03 09/11/20 09:01 09/11/20 09:03 09/11/20 09:01 Oxygen Flow Rate (L/min) 2 Oxygen Delivery Method Room Air Weight: 70.3 kg Body Mass Index (BMI) 22.6 Intake and Output for Last 24 Hours 09/09/20 09/10/20 09/11/20 23:59 23:59 23:59 Intake Total / 600 / 600 0 / 0 Output Total 0 / 0 Balance 600 / 600 0 / 0 Laboratory Results 09/10/20 12:08: POC Glucose 240 H 09/10/20 16:20: POC Glucose 107 09/10/20 21:07: POC Glucose 122 H 09/11/20 06:48: POC Glucose 118 H 09/11/20 07:00: WBC 8.4, RBC 4.88, Hgb 13.9, Hct 46.6, MCV 95.5 H, MCH 28.5, MCHC 29.8 L, RDW Std Deviation 50.9 H, RDW Coeff of [place]ash[place] 14.6, Plt Count 125 L, MPV 12.2 H, Immature Gran % (Auto) 0.100, Neut % (Auto) 73.3 H, Lymph % (Auto) 16.5 L, [place] % (Auto) 9.5, Eos % (Auto) 0.0, Baso % (Auto) 0.6, Absolute Neuts (auto) 6.2, Absolute Lymphs (auto) 1.39, Nucleated RBC % 0 09/11/20 07:00: Sodium 137, Potassium 4.4, Chloride 102, Carbon Dioxide 30.0, Anion Gap 5, BUN 22 H, Creatinine 1.31 H, Estim Creat Clear Calc 43.23, Est GFR (MDRD) Af Amer 67, Est GFR (MDRD) Non-Af 56 L, BUN/Creatinine Ratio 16.8, Glucose 106, Calcium 8.9, Total Bilirubin 1.30 H, AST 23, ALT 29, Alkaline Phosphatase 109, Total Protein 6.0 L, Albumin 2.5 L, Globulin 3.5, Albumin/Globulin Ratio 0.7 L Current Medications Acetaminophen (Acetaminophen 325 Mg Tablet) 650 mg PO Q6H PRN PRN PRN Reason: Pain Score 1-10/Temp > 100.7 F Al Hydroxide/Mg Hydroxide (Mag Hydrox/Al Hydrox/Simeth 30 Ml Udc) 30 ml PO Q6H PRN PRN PRN Reason: Gastric Burning Apixaban (Apixaban 2.5 Mg Tablet) 2.5 mg PO BID [facility] Last Admin: 09/11/20 09:02 Dose: 2.5 mg Documented by: Aspirin (Aspirin E.C. 81 Mg Tablet) 81 mg PO DAILY@0800 [facility] Last Admin: 09/11/20 09:02 Dose: 81 mg Documented by: Calamine/Phenol (Menthol/Lanolin/Calamine/Znox 113 Gm Tube) 1 applic TOPICAL BID [facility]; Protocol Last Admin: 09/11/20 09:04 Dose: 1 applicatio Documented by: Digoxin (Digoxin 125 Mcg Tablet) 125 mcg PO DAILY [facility] Duloxetine HCl (Duloxetine Hcl 30 Mg Capsule) 30 mg PO DAILY [facility] Last Admin: 09/11/20 09:03 Dose: 30 mg Documented by: Furosemide (Furosemide 40 Mg Tablet) 40 mg PO DAILY [facility] Furosemide (Furosemide 40 Mg Tablet) 40 mg PO BIDLX [facility] Stop: 09/11/20 18:01 Last Admin: 09/11/20 09:02 Dose: 40 mg Documented by: Guaifenesin (Guaifenesin 10 Ml Udc (200mg/10ml)) 20 ml PO Q4H PRN PRN PRN Reason: COUGH Sodium Chloride () 250 mls @ 15 mls/hr IV .[id number] PRN PRN Reason: Saline Flush Sodium Chloride () 250 mls @ 15 mls/hr IV .[id number] PRN PRN Reason: Saline Flush Sodium Chloride () 250 mls @ 15 mls/hr IV .[id number] PRN PRN Reason: Additional IVPB Infusion Insulin Human Lispro (Insulin Lispro 100 Unit/Ml Insuln.Pen) 0 unit SC ACHS [facility]; Protocol Last Admin: 09/11/20 06:51 Dose: Not Given Documented by: Loperamide HCl (Loperamide 2 Mg Capsule) 2 mg PO Q6H PRN PRN PRN Reason: Diarrhea Last Admin: 09/09/20 13:46 Dose: 2 mg Documented by: Melatonin (Melatonin 3 Mg Tablet) 3 mg PO QHS PRN PRN PRN Reason: INSOMNIA Metoprolol Tartrate (Metoprolol Tartrate 100 Mg Tablet) 100 mg PO BID [facility] Last Admin: 09/11/20 09:03 Dose: 100 mg Documented by: Nitroglycerin (Nitroglycerin (Inpatient Use) 0.4 Mg Tab.Subl) 0.4 mg SUBLINGUAL Q5M PRN PRN Reason: CARDIAC/CHEST PAIN Ondansetron HCl (Ondansetron 4 Mg/2 Ml Vial) 4 mg IV Q8H PRN PRN PRN Reason: NAUSEA/VOMITING Last Admin: 09/09/20 22:58 Dose: 4 mg Documented by: Polyethylene Glycol (Polyethylene Glycol 3350 17 Gm Packet) 17 gm PO DAILY [facility] Last Admin: 09/11/20 09:03 Dose: Not Given Documented by: Potassium Chloride (Potassium Chloride 20 Meq Tablet) 20 meq PO BID [facility] Last Admin: 09/11/20 09:02 Dose: 20 meq Documented by: Prochlorperazine Edisylate (Prochlorperazine 10 Mg/2 Ml Vial) 5 mg IV Q4H PRN PRN PRN Reason: Breakthrough Nausea/Vomiting Last Admin: 09/09/20 23:48 Dose: 5 mg Documented by: Senna/Docusate Sodium (Senna/Docusate Sodium 1 Tablet) 1 tablet PO BID [facility] Last Admin: 09/11/20 09:03 Dose: 1 tablet Documented by: Sodium Chloride (0.9% Saline Lock 10 Ml Syringe) 10 - 40 ml IV UD PRN PRN Reason: SALINE FLUSH Last Admin: 09/10/20 21:19 Dose: 10 ml Documented by: Sodium Chloride (0.9% Saline Lock 10 Ml Syringe) 10 - 40 ml IV UD PRN PRN Reason: SALINE FLUSH Throat Lozenges (Benzocaine/Menthol 1 Lozenge) 1 lozenge MUCOUS MEM Q2H PRN PRN PRN Reason: SORE THROAT Discharge Diet: Low fat/ Low Cholesterol, 6 Cup Fluid Restriction, 2000 mg Sodium Diet Discharge Activity: Return to Normal Activity Home Medications: Medications to take at Discharge Aspirin E.C. [Ecotrin] 81 mg PO DAILY@0800 07/17/20 Duloxetine Hcl [Cymbalta] 30 mg PO DAILY 08/09/20 Potassium Chloride 20 meq PO BID 08/21/20 Menthol/Lanolin/Calamine/Znox [Calmoseptine Ointment] 1 applic TOPICAL BID 09/09/20 Polyethylene Glycol 3350 [Miralax] 17 gm PO DAILY 09/09/20 Senna/Docusate Sodium [Senokot-S] 1 tab PO BID 09/09/20 Acetaminophen [Tylenol Tablet] 650 mg PO Q6H PRN PRN tab 09/11/20 Apixaban [Eliquis] 5 mg PO BID #0 09/11/20 Digoxin [Lanoxin] 125 mcg PO DAILY 09/11/20 Furosemide [Lasix] 40 mg PO BIDLX 09/11/20 Glimepiride [Amaryl] 1 mg PO DAILY 09/11/20 Guaifenesin [Robitussin] 20 ml PO Q4H PRN PRN udc 09/11/20 Insulin Lispro [Humalog KwikPen] See Protocol SC ACHS 09/11/20 Metoprolol Tartrate [Lopressor (beta kelsey)] 100 mg PO BID 09/11/20 Primary Care Physician: Abdoulaye Brock MD [Primary Care Provider] - Please follow up with your Primary Care Physician in: within 2 weeks Please Follow Up With: Jason Lemus MD When: in 1-2 weeks Disposition: Longterm facility Minutes spent on discharge:: 45 Patient Condition:: Stable Medical Necessity - Tobacco Use Smoking Status: Never smoker Tobacco Use: Non-smoker Meaningful Use Info Meaningful Use Diagnoses (Choose all that apply): None applicable OBSV E&M: 90483 Observation care discharge
[2020-09-11] MEDS: Digoxin 125 MCG Tablet PO (10:07)
--- NOTE | 2020-09-11 10:28 | PHA.DC.MR ---
Pharmacy Service has performed discharge medication reconciliation for this patient upon transfer to TCU The patient's discharge medication list was reviewed for discrepancies and discrepancies were resolved. Home Medications Aspirin E.C. [Ecotrin] 81 mg PO DAILY@0800 07/17/20 Duloxetine Hcl [Cymbalta] 30 mg PO DAILY 08/09/20 Potassium Chloride 20 meq PO BID 08/21/20 Menthol/Lanolin/Calamine/Znox [Calmoseptine Ointment] 1 applic TOPICAL BID 09/09/20 Polyethylene Glycol 3350 [Miralax] 17 gm PO DAILY 09/09/20 Senna/Docusate Sodium [Senokot-S] 1 tab PO BID 09/09/20 Acetaminophen [Tylenol Tablet] 650 mg PO Q6H PRN PRN tab 09/11/20 Apixaban [Eliquis] 5 mg PO BID #0 09/11/20 Digoxin [Lanoxin] 125 mcg PO DAILY tab 09/11/20 Furosemide [Lasix] 40 mg PO BIDLX tab 09/11/20 Glimepiride [Amaryl] 1 mg PO DAILY 30 Days #30 tab 09/11/20 Guaifenesin [Robitussin] 20 ml PO Q4H PRN PRN udc 09/11/20 Insulin Lispro [Humalog KwikPen] See Protocol SC ACHS insuln.pen 09/11/20 Metoprolol Tartrate [Lopressor (beta kelsey)] 100 mg PO BID tab 09/11/20
[2020-09-11] MEDS: Insulin Lispro 100 UNIT/ML INSULN.PEN SC (11:19)
--- NOTE | 2020-09-11 12:20 | NURSING ---
Report called to nurse Dougherty in TCU. Patient okay to transfer over at this time.
[2020-09-12 07:05] LABS: Bedside Glucose 251 mg/dL (70-110)
== END 2020-09-11 09:49 | disposition skilled nursing facility (03) ==
LOC: ED 00:53 → PCU 04:02
PROVIDERS: Family Medicine; Admitting Provider Family Medicine; Emergency Provider Emergency Medicine; PCP Family Medicine; Referring Provider Family Medicine; Visit Provider Internal Medicine
DX: I48.19 Other persistent atrial fibrillation (principal); K52.1 Toxic gastroenteritis and colitis; T50.905A Adverse effect of unspecified drugs, medicaments and biological substances, initial encounter; I25.5 Ischemic cardiomyopathy; N18.30 Chronic kidney disease, stage 3 unspecified; I25.119 Atherosclerotic heart disease of native coronary artery with unspecified angina pectoris; E11.22 Type 2 diabetes mellitus with diabetic chronic kidney disease; I50.22 Chronic systolic (congestive) heart failure; I13.0 Hypertensive heart and chronic kidney disease with heart failure and stage 1 through stage 4 chronic kidney disease, or unspecified chronic kidney disease; F32.9 Major depressive disorder, single episode, unspecified; I25.2 Old myocardial infarction; I27.21 Secondary pulmonary arterial hypertension; E78.5 Hyperlipidemia, unspecified; Z95.0 Presence of cardiac pacemaker; Z79.899 Other long term (current) drug therapy; Z79.84 Long term (current) use of oral hypoglycemic drugs; Z79.82 Long term (current) use of aspirin; Z79.01 Long term (current) use of anticoagulants; Z85.46 Personal history of malignant neoplasm of prostate; Z86.73 Personal history of transient ischemic attack (TIA), and cerebral infarction without residual deficits; Z95.1 Presence of aortocoronary bypass graft; K59.00 Constipation, unspecified
CPT/HCPCS: 36415; 71045; 80048; 80053; 82962; 83735; 84443; 84484; 85025; 85610; 93005; 96361; 96374; 96375; 96376; 97110; 97116; 97162; 97166; 97530; 97535; 97802; 99218; 99251; 99284; J7030; J7040; A4216; G0378; G0463; J2405

== ENCOUNTER 2020-09-11 12:57 | Inpatient (IN) | payer MEDICARE, SELFPAY ==
[2020-09-09 03:21] VITALS: BMI 22.6
[2020-09-11 13:28] VITALS: BP 98/70; PULSE 95; RESP 16; TEMP 36.4; O2SAT 93
[2020-09-11 13:34] VITALS: BMI 22.4
[2020-09-11 13:36] VITALS: BMI 22.4
[2020-09-11 16:30] LABS: Bedside Glucose 131 mg/dL (70-110)
[2020-09-11 16:32] VITALS: BP 98/70; PULSE 95; RESP 16; TEMP 36.4; O2SAT 93
[2020-09-11 17:12] VITALS: BP 101/63; PULSE 95
[2020-09-11] MEDS: APIXABAN 5 MG TABLET PO (17:12)
[2020-09-11] MEDS: Senna/Docusate Sodium 1 Tablet PO (17:12)
[2020-09-11] MEDS: Metoprolol Tartrate 100 MG Tablet PO (17:12)
[2020-09-11] MEDS: Furosemide 40 MG Tablet PO (17:12)
[2020-09-11] MEDS: Menthol/Lanolin/Calamine/Znox 113 GM Tube 1 APPLIC TOPICAL (17:13)
--- NOTE | 2020-09-11 18:41 | HP.PCM_ITS ---
Problem List (1) Chronic systolic congestive heart failure Status: Chronic (2) Diabetes mellitus type 2 in nonobese Status: Chronic (3) Anxiety Status: Chronic (4) Debility Status: Acute (5) Hypokalemia Status: Chronic (6) Coronary artery disease Status: Chronic (7) Chronic kidney disease Status: Chronic Qualifiers: (8) Hypertension Status: Chronic (9) Prostate cancer Status: Chronic (10) Depression Status: Chronic Qualifiers: (11) Atrial fibrillation with rapid ventricular response Status: Acute (12) Hypotension Status: Acute (13) Hyperlipidemia Status: Chronic Qualifiers: History of Present Illness Date of Admission: 09/11/20 Chief Complaint: Here for rehabilitation, strengthening, prior to discharge home with spouse. 09/09/20 The patient is a 80 year old Male with below past medical history TCU resident admitted to [facility] with atrial fibrillation with rapid ventricular response. Recent hospitalization for septic shock, pneumonia. Fecal impaction treated with magnesium citrate, soap suds enema. Patient developed tachycardia, hypotension, give IV fluids. Atrial fibrillation with rapid ventricular response, heart rate 145, treated with IV Cardizem, Cardizem drip. Metoprolol increased to 50MG twice daily. Cardiology recommended adding digoxin. Entresto stopped due to hypotension, on further questioning, patient states Entresto did not make him feel any better. Lasix 40MG twice daily for chronic systolic congestive heart failure. 09/11/20 Admit to TCU with debility, here for rehabilitation, strengthening, prior to discharge home with spouse. Past Medical History Past Medical History (Chronic Problems): Chronic Problems (Last Reviewed 08/23/20 @ 16:[address] 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) VVI 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 Bradycardia (Chronic) Atherosclerosis of coronary artery of [place] heart with angina pectoris (Chronic) History of non-ST elevation myocardial infarction (NSTEMI) (Chronic 05/2017) 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) CABG x 4: COLES-LAD, SVG-D1, SVG to proximal end of SVG to diagonal going to OM 2, and SVG-RPDA 10/30/16 Ischemic cardiomyopathy (Chronic) Secondary pulmonary arterial hypertension (Chronic) Left bundle branch block (LBBB) (Chronic) Essential (primary) hypertension (Chronic) Hyperlipidemia (Chronic) Medical History: Medical History (Last Reviewed 08/23/20 @ 16:[address] Jason Lemus MD) Persistent atrial fibrillation (Chronic) I48.19 Elevated troponin (Acute) Onset Date: 08/09/20 R79.89 Atrial fibrillation with rapid ventricular response (Acute) Onset Date: 08/09/20 I48.91 Acute on chronic systolic and diastolic heart failure, NYHA class 2 (Acute) I50.43 Acute kidney injury superimposed on chronic kidney disease (Acute) N17.9, N18.9 Bradycardia (Chronic) R00.1 Hypotension (Acute) I95.9 Atherosclerosis of coronary artery of [place] heart with angina pectoris (Chronic) I25.119 History of non-ST elevation myocardial infarction (NSTEMI) (Chronic) Onset Date: 05/2017 I25.2 Ischemic cardiomyopathy (Chronic) I25.5 Secondary pulmonary arterial hypertension (Chronic) I27.21 Left bundle branch block (LBBB) (Chronic) I44.7 Essential (primary) hypertension (Chronic) I10 Hyperlipidemia (Chronic) E78.5 Barretts esophagus K22.70 Bilateral pleural effusion Onset Date: 11/2019 J90 CKD (chronic kidney disease) N18.9 Prostate cancer C61 Transient ischemic attack G45.9 Type 2 diabetes mellitus E11.9 Acute respiratory failure with hypoxemia (Resolved) J96.01 Dyspnea on exertion (Resolved) R06.09 Nausea and vomiting (Resolved) R11.2 Shortness of breath (Resolved) R06.02 Paroxysmal atrial fibrillation (Inactive) I48.0 Allergies spironolactone Allergy (Verified 09/09/20 00:47) severe weakness lisinopril Adverse Reaction (Mild, Verified 09/09/20 00:47) Dry cough amiodarone Adverse Reaction (Verified 09/09/20 00:47) toxicity Home Medications: Ambulatory Orders Medication Instructions Recorded Aspirin E.C. [Ecotrin] 81 mg PO DAILY@0800 07/17/20 Duloxetine Hcl [Cymbalta] 30 mg PO DAILY 08/09/20 Potassium Chloride 20 meq PO BID 08/21/20 Menthol/Lanolin/Calamine/Znox 1 applic TOPICAL BID 09/09/20 [Calmoseptine Ointment] Polyethylene Glycol 3350 [Miralax] 17 gm PO DAILY 09/09/20 Senna/Docusate Sodium [Senokot-S] 1 tab PO BID 09/09/20 Acetaminophen [Tylenol Tablet] 650 mg PO Q6H PRN PRN tab 09/11/20 Apixaban [Eliquis] 5 mg PO BID #0 09/11/20 Digoxin [Lanoxin] 125 mcg PO DAILY 09/11/20 Furosemide [Lasix] 40 mg PO BIDLX 09/11/20 Glimepiride [Amaryl] 1 mg PO DAILY 09/11/20 Guaifenesin [Robitussin] 20 ml PO Q4H PRN PRN udc 09/11/20 Insulin Lispro [Humalog KwikPen] See Protocol SC ACHS 09/11/20 Metoprolol Tartrate [Lopressor 100 mg PO BID 09/11/20 (beta kelsey)] Surgical History: Surgical History (Last Reviewed 09/09/20 @ 03:[address] Giovanna Bains MD) History of permanent cardiac pacemaker placement (Chronic) Onset Date: 08/16/20 Z95.0 VVI 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 H/O coronary artery bypass surgery (Chronic) Onset Date: 10/30/16 Z95.1 CABG x 4: COLES-LAD, SVG-D1, SVG to proximal end of SVG to diagonal going to OM 2, and SVG-RPDA 10/30/16 History of cardioversion Onset Date: 03/30/20 Z98.890 History of colonoscopy Z98.890 History of dental surgery Z92.89 History of esophagogastroduodenoscopy (EGD) Z98.890 History of left heart catheterization Onset Date: 08/13/20 Z98.890 [place] Patent 07/23/2018, 08/13/20 History of prostatectomy Z90.79 Surgical History: coronary bypass surgery - x 4., pacemaker implantation, - - Prostatectomy, cardioversion, oral surgery. Psychiatric History: Anxiety, Depression Lives: Spouse/ Significant Other Smoking Status: Never smoker Tobacco Use: Non-smoker Alcohol: None Drugs: None - *Family History Paternal Family History: Family History (Last Reviewed 08/23/20 @ 16:[address] Jason Lemus MD) Sister Diabetes Sister Colon cancer Diabetes CVA (cerebral vascular accident) Sister Diabetes Brother Heart disease Diabetes History Items: - - Patient denies any market maternal or paternal family history including heart disease, diabetes, cancer. Maternal Family History: Family History (Last Reviewed 08/23/20 @ 16:[address] Jason Lemus MD) Sister Diabetes Sister Colon cancer Diabetes CVA (cerebral vascular accident) Sister Diabetes Brother Heart disease Diabetes History Items: - - Patient denies any market maternal or paternal family history including heart disease, diabetes, cancer. Sibling Family History: Family History (Last Reviewed 08/23/20 @ 16:[address] Jason Lemus MD) Sister Diabetes Sister Colon cancer Diabetes CVA (cerebral vascular accident) Sister Diabetes Brother Heart disease Diabetes History Items: - - Patient has siblings with diabetes, heart disease, strokes, colon cancer. Review of Systems Constitutional: Denies: Chills, Fever, Weight Change HEENT: Denies: Head Aches, Sinus Congestion, Sinus Drainage Cardiovascular: Denies: Chest Pain, Palpitations Respiratory: Denies: Cough, Shortness of breath at rest, Sputum production Gastrointestinal: Denies: Abdominal Pain, Nausea, Vomiting Genitourinary: Denies: Dysuria Musculoskeletal: Denies: Joint Pain, Joint Tenderness Skin: Denies: Rash, Wounds Neurological: Denies: Numbness, Tingling, Focal weakness Psychiatric: Denies: Anxiety, Depression, Homicidal Ideations, Suicidal Ideations Hematologic/ Lymphatic: Denies: Easy Bruising, Easy Bleeding VTE Information - Inpt Only VTE Present on Admission: No VTE Mechan Device Prophylaxis: Knee High OSMAR Hose VTE Pharm Prophylaxis ordered?: No Reason prophylaxis not ordered:: Treatment Not Indicated Patient Problems: Active and Suspected Problems (Last Reviewed 08/23/20 @ 16:[address] Jason farmer MD) Debility (Acute) Atrial fibrillation with rapid ventricular response (Acute 08/09/20) Hypotension (Acute) - Physical Exam Vitals/I&O's: Vital Signs Temp Pulse Resp BP Pulse Ox 97.6 F L 95 16 101/63 93 09/11/20 16:32 09/11/20 17:12 09/11/20 16:32 09/11/20 17:12 09/11/20 16:32 Oxygen Delivery Method Room Air Weight: 68.81 kg Body Mass Index (BMI) 22.4 Intake and Output for Last 24 Hours 09/09/20 09/10/20 09/11/20 23:59 23:59 23:59 Intake Total 240 / 240 Balance 240 / 240 General: Alert, Oriented x3, Cooperative HEENT: Atraumatic, PERRLA, EOMI, Normocephalic Neck: Supple, No JVD, Negative Carotid Bruits Lungs: Clear to auscultation, Normal air movement Cardiovascular: No murmurs, Irregular Rate Abdomen: Bowel Sounds Present, Soft, Non Tender Extremities: No edema, Capillary Refill Less than 3 Seconds Skin: No rashes, No breakdown Musculoskeletal: No Tenderness to Palpation of Joints or Extremities Neurological: Cranial nerves II-XII grossly intact Psych/Mental Status: Normal Affect, Appropriate Laboratory Results 09/11/20 16:15: POC Glucose 131 H Current Medications Acetaminophen (Acetaminophen 325 Mg Tablet) 650 mg PO Q6H PRN PRN PRN Reason: Pain Score 1-10/Temp > 100.7 F Apixaban (Apixaban 5 Mg Tablet) 5 mg PO BID [facility] Last Admin: 09/11/20 17:12 Dose: 5 mg Documented by: Aspirin (Aspirin E.C. 81 Mg Tablet) 81 mg PO DAILY@0800 [facility] Calamine/Phenol (Menthol/Lanolin/Calamine/Znox 113 Gm Tube) 1 applic TOPICAL BID [facility]; Protocol Last Admin: 09/11/20 17:13 Dose: 1 applicatio Documented by: Digoxin (Digoxin 125 Mcg Tablet) 125 mcg PO DAILY [facility] Duloxetine HCl (Duloxetine Hcl 30 Mg Capsule) 30 mg PO DAILY [facility] Furosemide (Furosemide 40 Mg Tablet) 40 mg PO BIDLX [facility] Last Admin: 09/11/20 17:12 Dose: 40 mg Documented by: Glimepiride ([facility] 1 Mg Tablet) [facility] Guaifenesin (Guaifenesin 10 Ml Udc (200mg/10ml)) 20 ml PO Q4H PRN PRN PRN Reason: COUGH Insulin Human Lispro (Insulin Lispro 100 Unit/Ml Insuln.Pen) 0 unit SC ACHS [facility]; Protocol Last Admin: 09/11/20 17:19 Dose: Not Given Documented by: Metoprolol Tartrate (Metoprolol Tartrate 100 Mg Tablet) 100 mg PO BID [facility] Last Admin: 09/11/20 17:12 Dose: 100 mg Documented by: Nutritional Formula (Lactose Free) (Glucerna Shake 120 Ml Liquid) 120 ml PO TIDCM [facility] Last Admin: 09/11/20 17:13 Dose: Not Given Documented by: Polyethylene Glycol (Polyethylene Glycol 3350 17 Gm Packet) 17 gm PO DAILY [facility] Potassium Chloride (Potassium Chloride 20 Meq Tablet) [facility] Last Admin: 09/11/20 17:12 Dose: 20 meq Documented by: Senna/Docusate Sodium (Senna/Docusate Sodium 1 Tablet) 1 tablet PO BID [facility] Last Admin: 09/11/20 17:12 Dose: 1 tablet Documented by: Sodium Chloride (0.9% Saline Lock 10 Ml Syringe) 10 - 40 ml IV UD PRN PRN Reason: SALINE FLUSH Assessment/Plan All Active Problems (Last Reviewed 08/23/20 @ 16:[address] Jason Lemus MD) Septic shock (Acute) Pneumonia (Acute) Debility (Acute) Nausea & vomiting (Acute) Acute kidney injury (Acute) Acute on chronic systolic congestive heart failure (Acute) Edema (Acute) Nausea (Acute) Elevated troponin (Acute 08/09/20) Atrial fibrillation with rapid ventricular response (Acute 08/09/20) Acute on chronic systolic and diastolic heart failure, NYHA class 2 (Acute) Acute kidney injury superimposed on chronic kidney disease (Acute) Hypotension (Acute) Acute respiratory failure with hypoxemia (Resolved) Amiodarone toxicity (Resolved) Dyspnea (Resolved) Dyspnea on exertion (Resolved) Nausea and vomiting (Resolved) Shortness of breath (Resolved) 80 year old male with below past medical history hospitalized for atrial fibrillation with rapid ventricular response, complicated by hypotension, admitted to TCU with debility, here for rehabilitation, strengthening, prior to discharge home with spouse. * Debility - PT/OT. * Pain - Tylenol 1000MG Q6H PRN pain (1-10). * Bowel - Miralax 17GM daily, Senna/colace 1 tablet BID. * Adult immunization - Administer Prevnar 13, Pneumovax 23, Fluzone as appropriate. * DVT prophylaxis - Not necessary, Already on Eliquis. * Atrial Fibrillation - Metoprolol 100MG BID, Digoxin 125MCG daily, Eliquis 5MG BID. * Coronary Artery Disease - Metoprolol 100MG BID, Aspirin 81MG daily. * Chronic systolic congestive heart failure - Metoprolol 100MG BID, Digoxin 125MCG daily, Lasix 40MG BID, Entresto intolerable due to hypotension, chronic kidney disease. * Depression - Duloxetine 30MG daily, stable chronic retirement use, GDR not recommended. * Diabetes Mellitus II - Glimepiride 1MG daily. * Nutrition - Glucerna Shake 120ML PO TIDCM. * Cough - Robitussin 20ML Q4H PRN. * Skin irritation - Calmoseptine topical BID. * Hypokalemia - K-Dur 20MEQ BID.
[2020-09-11 19:00] VITALS: PULSE 95; RESP 16; O2SAT 93
[2020-09-11 21:31] LABS: Bedside Glucose 187 mg/dL (70-110)
[2020-09-12 05:47] VITALS: BP 116/64; PULSE 95; RESP 16; TEMP 36.2; O2SAT 94
[2020-09-12 05:48] VITALS: BP 116/64; PULSE 95
[2020-09-12] MEDS: Metoprolol Tartrate 100 MG Tablet PO ×2 (05:48→16:41)
[2020-09-12] MEDS: Polyethylene Glycol 3350 17 GM PACKET PO (05:48)
[2020-09-12 05:49] VITALS: BP 116/64; PULSE 95
[2020-09-12] MEDS: Digoxin 125 MCG Tablet PO (05:49)
[2020-09-12] MEDS: Furosemide 40 MG Tablet PO ×2 (05:49→12:46)
[2020-09-12] MEDS: Senna/Docusate Sodium 1 Tablet PO ×2 (05:49→16:41)
[2020-09-12] MEDS: APIXABAN 5 MG TABLET PO ×2 (05:49→16:41)
[2020-09-12] MEDS: DULoxetine Hcl 30 MG Capsule PO (05:49)
[2020-09-12] MEDS: Menthol/Lanolin/Calamine/Znox 113 GM Tube 1 APPLIC TOPICAL ×2 (05:51→16:42)
[2020-09-12 06:35] LABS: Bedside Glucose 128 mg/dL (70-110)
[2020-09-12 06:58] LABS: Absolute Lymphocyte Count 1.13 X10^3/uL (0.83-4.51); Absolute Neutrophil Count 4.1 X10^3/uL (2.0-7.7); Basophil# 0.04 X10^3/uL; Basophil% 0.6 % (0-1); Eosinophil# 1.31 X10^3/uL; Eosinophils% 18.3 % (0-5); Hematocrit 45.9 % (40-54); Hemoglobin 14.3 g/dL (13.0-16.5); Lymphocyte # 1.13 X10^3/ul (4.0); Lymphocyte % 15.8 % (19-41); Mean Corp Hgb Conc 31.2 g/dL (32-36); Mean Corpuscular Hgb 29.7 pg (27.0-32.0); Mean Corpuscular Volume 95.4 fL (80-94); Mean Platelet Vol. 11.9 fl (6.2-12.0); Monocyte# 0.58 X10^3/uL; Monocyte% 8.1 % (0-10); NRBC Flagged by Analyzer 0 % (0-5); Neutrophil # 4.09 X10^3/uL (2.7-7.7); Neutrophil % 56.9 % (47-70); POSITIVE MORPHOLOGY YES; Platelet Count 141 K/mm3 (150-450); RBC Distribution Width CV 14.6 % (11.6-14.6); RBC Distribution Width SD 50.3 fl (35.1-43.9); Red Blood Count 4.81 M/mm3 (4.6-6.2); White Blood Count 7.2 K/mm3 (4.4-11.0)
[2020-09-12 07:05] LABS: Differential Indicated SCAN CRITERIA MET
[2020-09-12 07:22] LABS: Anion Gap 2 (5-15); BUN 25 mg/dL (7-18); BUN/Creat Ratio 16.2 RATIO (10-20); Calcium,Total 9.1 mg/dL (8.5-10.1); Chloride 102 mmol/L (98-107); Creatinine, Serum 1.54 mg/dL (0.70-1.30); EST Glomerular Filtration Rate 46 mL/min (>60); Est Glom Filt Rate - Afr Amer 56 mL/min (>60); Estimated Creatinine Clearance 35.99 ml/min; Glucose 129 mg/dL (74-106); Potassium 4.5 mmol/L (3.5-5.1); Sodium Level 137 mmol/L (136-145)
[2020-09-12 07:28] LABS: Differential Comment SCANNED; Reactive Lymphocyte RARE
[2020-09-12] MEDS: Glimepiride 1 MG Tablet PO (08:36)
[2020-09-12] MEDS: Aspirin E.C. 81 MG Tablet PO (08:36)
[2020-09-12] MEDS: Glucerna Shake 120 ML LIQUID PO ×3 (08:36→16:41)
[2020-09-12 11:01] LABS: Bedside Glucose 135 mg/dL (70-110)
[2020-09-12 13:50] VITALS: BP 110/80; PULSE 102; RESP 16; TEMP 36.1; O2SAT 97
--- NOTE | 2020-09-12 15:08 | NURSING ---
Pt request his dinner between 1600 & 1630. Does not like to eat late.
--- NOTE | 2020-09-12 15:21 | PCM.PN.RX ---
<Saha,Deysi - Last Filed: 09/12/20 15:21> Progress Note - Pharmacy Subjective: TCU Admission Objective: Allergies spironolactone Allergy (Verified 09/09/20 00:47) severe weakness lisinopril Adverse Reaction (Mild, Verified 09/09/20 00:47) Dry cough amiodarone Adverse Reaction (Verified 09/09/20 00:47) toxicity Current Medications Generic Name Dose Route Start Last Admin Trade Name Freq PRN Reason Stop Dose Admin Acetaminophen 1,000 mg 09/11/20 18:56 Acetaminophen 500 Mg Tablet PO Q6H PRN PRN Pain Score 1-10 Apixaban 5 mg 09/11/20 18:00 09/12/20 05:49 Apixaban 5 Mg Tablet PO 5 mg BID [facility] Administration Aspirin 81 mg 09/12/20 08:00 09/12/20 08:36 Aspirin E.C. 81 Mg Tablet PO 81 mg DAILY@0800 [facility] Administration Calamine/Phenol 1 applic 09/11/20 18:00 09/12/20 05:51 Menthol/Lanolin/Calamine/Znox 113 Gm Tube TOPICAL 1 applicatio BID [facility] Administration Protocol Digoxin 125 mcg 09/12/20 06:00 09/12/20 05:49 Digoxin 125 Mcg Tablet PO 125 mcg DAILY [facility] Administration Duloxetine HCl 30 mg 09/12/20 06:00 09/12/20 05:49 Duloxetine Hcl 30 Mg Capsule PO 30 mg DAILY [facility] Administration Furosemide 40 mg 09/11/20 18:00 09/12/20 12:46 Furosemide 40 Mg Tablet PO 40 mg BIDLX [facility] Administration Glimepiride 1 mg 09/12/20 08:00 09/12/20 08:36 Glimepiride 1 Mg Tablet PO 1 mg DAILYCM [facility] Administration Guaifenesin 20 ml 09/11/20 13:12 Guaifenesin 10 Ml Udc (200mg/10ml) PO Q4H PRN PRN COUGH Metoprolol Tartrate 100 mg 09/11/20 18:00 09/12/20 05:48 Metoprolol Tartrate 100 Mg Tablet PO 100 mg BID [facility] Administration Nutritional Formula (Lactose Free) 120 ml 09/11/20 17:45 09/12/20 11:36 Glucerna Shake 120 Ml Liquid PO 120 ml TIDCM [facility] Administration Polyethylene Glycol 17 gm 09/12/20 06:00 09/12/20 05:48 Polyethylene Glycol 3350 17 Gm Packet PO 17 gm DAILY [facility] Administration Potassium Chloride 20 meq 09/11/20 17:00 09/12/20 08:37 Potassium Chloride 20 Meq Tablet PO 20 meq BIDCM [facility] Administration Senna/Docusate Sodium 1 tablet 09/11/20 18:00 09/12/20 05:49 Senna/Docusate Sodium 1 Tablet PO 1 tablet BID [facility] Administration Sodium Chloride 10 - 40 ml 09/11/20 13:30 0.9% Saline Lock 10 Ml Syringe IV UD PRN SALINE FLUSH Problem List (Last Reviewed 08/23/20 @ 16:[address] Jason Lemus MD) Debility (Acute) Hypokalemia (Chronic) Coronary artery disease (Chronic) Chronic kidney disease (Chronic) Hypertension (Chronic) Prostate cancer (Chronic) Depression (Chronic) Chronic systolic congestive heart failure (Chronic) Diabetes mellitus type 2 in nonobese (Chronic) Anxiety (Chronic) Atrial fibrillation with rapid ventricular response (Acute 08/09/20) Hypotension (Acute) Hyperlipidemia (Chronic) Vital Signs Temp Pulse Resp BP Pulse Ox 97.0 F L 102 H 16 110/80 97 09/12/20 13:50 09/12/20 13:50 09/12/20 13:50 09/12/20 13:50 09/12/20 13:50 Oxygen Delivery Method Room Air Weight: 68.81 kg Body Mass Index (BMI) 22.4 Sodium 137 mmol/L (136-145) 09/12/20 06:50 Potassium 4.5 mmol/L (3.5-5.1) 09/12/20 06:50 Chloride 102 mmol/L (98-107) 09/12/20 06:50 Carbon Dioxide 33.0 mmol/L (21.0-32.0) H 09/12/20 06:50 Anion Gap 2 (5-15) L 09/12/20 06:50 BUN 25 mg/dL (7-18) H 09/12/20 06:50 Creatinine 1.54 mg/dL (0.70-1.30) H 09/12/20 06:50 Est GFR (MDRD) Af Amer 56 mL/min (>60) L 09/12/20 06:50 Est GFR (MDRD) Non-Af 46 mL/min (>60) L 09/12/20 06:50 BUN/Creatinine Ratio 16.2 RATIO (-) 09/12/20 06:50 Glucose 129 mg/dL (74-106) H 09/12/20 06:50 Assessment/Plan: 1. Pain: acetaminophen 1000mg PO Q6H PRN pain 1-07/28. Please continue to monitor for increased pain and PRN usage. *2. Atrial fibrillation/CAD/CHF: metoprolol tartrate 100mg PO BID, digoxin 125mcg PO daily, apixaban 5mg PO BID, aspirin 81mg PO DAILYCM and furosemide 40mg PO BIDLX. Please consider changing apixaban dosing to 2.5mg PO BID due to age >80 and SCr >1.5. Thanks. Please continue to monitor digoxin levels (last WNL 08/26/20), HR (last 102), BP (last 110/80), S/S of bleeding, hemoglobin (last 14.3g/dL), renal function, and potassium (last 4.5mmol/L). 3. Diabetes mellitus type II: glimepiride 1mg PO DAILYCM. Please continue to monitor blood sugars, S/S of hypoglycemia and hemoglobin A1c (last 7.9%). 4. Cough: guaifenesin 20mL PO Q4H PRN cough. Please continue to monitor for cough and PRN usage. 5. Hypokalemia: potassium chloride 20mEq Po BIDCM. Please continue to monitor potassium levels. Psychotropic Medications: 1. Depression: duloxetine 30mg PO daily. Please see physician note regarding GDR. Unnecessary Medications: None Bowel Regimen: Miralax 17gm PO daily and senna/docusate 1T PO BID. Please continue to monitor for constipation and diarrhea. Date of Note:: 09/12/20 - Provider Comments Provider responsibility: Provider responsible to enter orders to implement recommendations <Vimal Toscano Chi - Last Filed: 09/12/20 16:43> Progress Note - Pharmacy Subjective: [] Objective: Allergies spironolactone Allergy (Verified 09/09/20 00:47) severe weakness lisinopril Adverse Reaction (Mild, Verified 09/09/20 00:47) Dry cough amiodarone Adverse Reaction (Verified 09/09/20 00:47) toxicity Current Medications Generic Name Dose Route Start Last Admin Trade Name Freq PRN Reason Stop Dose Admin Acetaminophen 1,000 mg 09/11/20 18:56 Acetaminophen 500 Mg Tablet PO Q6H PRN PRN Pain Score 1-10 Apixaban 5 mg 09/11/20 18:00 09/12/20 16:41 Apixaban 5 Mg Tablet PO 5 mg BID [facility] Administration Aspirin 81 mg 09/12/20 08:00 09/12/20 08:36 Aspirin E.C. 81 Mg Tablet PO 81 mg DAILY@0800 [facility] Administration Calamine/Phenol 1 applic 09/11/20 18:00 09/12/20 16:42 Menthol/Lanolin/Calamine/Znox 113 Gm Tube TOPICAL 1 applicatio BID [facility] Administration Protocol Digoxin 125 mcg 09/12/20 06:00 09/12/20 05:49 Digoxin 125 Mcg Tablet PO 125 mcg DAILY [facility] Administration Duloxetine HCl 30 mg 09/12/20 06:00 09/12/20 05:49 Duloxetine Hcl 30 Mg Capsule PO 30 mg DAILY [facility] Administration Furosemide 40 mg 09/11/20 18:00 09/12/20 12:46 Furosemide 40 Mg Tablet PO 40 mg BIDLX [facility] Administration Glimepiride 1 mg 09/12/20 08:00 09/12/20 08:36 Glimepiride 1 Mg Tablet PO 1 mg DAILYCM [facility] Administration Guaifenesin 20 ml 09/11/20 13:12 Guaifenesin 10 Ml Udc (200mg/10ml) PO Q4H PRN PRN COUGH Metoprolol Tartrate 100 mg 09/11/20 18:00 09/12/20 16:41 Metoprolol Tartrate 100 Mg Tablet PO 100 mg BID [facility] Administration Nutritional Formula (Lactose Free) 120 ml 09/11/20 17:45 09/12/20 16:41 Glucerna Shake 120 Ml Liquid PO 120 ml TIDCM [facility] Administration Polyethylene Glycol 17 gm 09/12/20 06:00 09/12/20 05:48 Polyethylene Glycol 3350 17 Gm Packet PO 17 gm DAILY [facility] Administration Potassium Chloride 20 meq 09/11/20 17:00 09/12/20 16:41 Potassium Chloride 20 Meq Tablet PO 20 meq BIDCM [facility] Administration Senna/Docusate Sodium 1 tablet 09/11/20 18:00 09/12/20 16:41 Senna/Docusate Sodium 1 Tablet PO 1 tablet BID [facility] Administration Sodium Chloride 10 - 40 ml 09/11/20 13:30 0.9% Saline Lock 10 Ml Syringe IV UD PRN SALINE FLUSH Problem List (Last Reviewed 08/23/20 @ 16:[address] Jason Lemus MD) Debility (Acute) Hypokalemia (Chronic) Coronary artery disease (Chronic) Chronic kidney disease (Chronic) Hypertension (Chronic) Prostate cancer (Chronic) Depression (Chronic) Chronic systolic congestive heart failure (Chronic) Diabetes mellitus type 2 in nonobese (Chronic) Anxiety (Chronic) Atrial fibrillation with rapid ventricular response (Acute 08/09/20) Hypotension (Acute) Hyperlipidemia (Chronic) Vital Signs Temp Pulse Resp BP Pulse Ox 97.0 F L 102 H 16 110/80 97 09/12/20 13:50 09/12/20 16:41 09/12/20 13:50 09/12/20 13:50 09/12/20 13:50 Oxygen Delivery Method Room Air Weight: 68.81 kg Body Mass Index (BMI) 22.4 Sodium 137 mmol/L (136-145) 09/12/20 06:50 Potassium 4.5 mmol/L (3.5-5.1) 09/12/20 06:50 Chloride 102 mmol/L (98-107) 09/12/20 06:50 Carbon Dioxide 33.0 mmol/L (21.0-32.0) H 09/12/20 06:50 Anion Gap 2 (5-15) L 09/12/20 06:50 BUN 25 mg/dL (7-18) H 09/12/20 06:50 Creatinine 1.54 mg/dL (0.70-1.30) H 09/12/20 06:50 Est GFR (MDRD) Af Amer 56 mL/min (>60) L 09/12/20 06:50 Est GFR (MDRD) Non-Af 46 mL/min (>60) L 09/12/20 06:50 BUN/Creatinine Ratio 16.2 RATIO (-20) 09/12/20 06:50 Glucose 129 mg/dL (74-106) H 09/12/20 06:50 Assessment/Plan: Psychotropic Medications: Unnecessary Medications: Bowel Regimen: - Provider Comments Provider responsibility: Provider responsible to enter orders to implement recommendations Provider Comments to Recommendations by Pharmacy: Agree
[2020-09-12 16:41] VITALS: PULSE 102
[2020-09-12] MEDS: 0.9% Saline Lock 10 ML Syringe IV (16:44)
[2020-09-12 16:45] LABS: Bedside Glucose 138 mg/dL (70-110)
[2020-09-12 21:25] LABS: Bedside Glucose 213 mg/dL (70-110)
[2020-09-13 05:45] VITALS: BP 111/67; PULSE 91; RESP 16; TEMP 35.9; O2SAT 94
[2020-09-13 05:47] VITALS: BP 111/67; PULSE 91
[2020-09-13] MEDS: Senna/Docusate Sodium 1 Tablet PO (05:47)
[2020-09-13] MEDS: Metoprolol Tartrate 100 MG Tablet PO ×2 (05:47→17:09)
[2020-09-13] MEDS: APIXABAN 5 MG TABLET PO ×2 (05:47→17:09)
[2020-09-13 05:48] VITALS: PULSE 94
[2020-09-13] MEDS: DULoxetine Hcl 30 MG Capsule PO (05:48)
[2020-09-13] MEDS: Furosemide 40 MG Tablet PO ×2 (05:48→13:39)
[2020-09-13] MEDS: Digoxin 125 MCG Tablet PO (05:48)
[2020-09-13] MEDS: Menthol/Lanolin/Calamine/Znox 113 GM Tube 1 APPLIC TOPICAL ×2 (05:50→17:08)
[2020-09-13 06:26] LABS: Bedside Glucose 130 mg/dL (70-110)
[2020-09-13] MEDS: Glucerna Shake 120 ML LIQUID PO ×3 (08:21→17:05)
[2020-09-13] MEDS: Aspirin E.C. 81 MG Tablet PO (08:23)
[2020-09-13] MEDS: Glimepiride 1 MG Tablet PO (08:23)
[2020-09-13 10:41] LABS: Bedside Glucose 200 mg/dL (70-110)
[2020-09-13 16:09] VITALS: BP 110/75; PULSE 99; RESP 16; TEMP 36.4; O2SAT 94
[2020-09-13 16:11] VITALS: PULSE 99; RESP 16; O2SAT 94
[2020-09-13 16:40] LABS: Bedside Glucose 214 mg/dL (70-110)
[2020-09-13 17:09] VITALS: BP 110/75; PULSE 99
[2020-09-13 21:10] LABS: Bedside Glucose 203 mg/dL (70-110)
[2020-09-14 04:33] VITALS: BP 112/67; PULSE 92; RESP 18; TEMP 35.7; O2SAT 95
[2020-09-14] MEDS: Polyethylene Glycol 3350 17 GM PACKET PO (04:35)
[2020-09-14 04:36] VITALS: BP 112/67; PULSE 92
[2020-09-14] MEDS: Metoprolol Tartrate 100 MG Tablet PO ×2 (04:36→18:13)
[2020-09-14] MEDS: Digoxin 125 MCG Tablet PO (04:36)
[2020-09-14] MEDS: APIXABAN 5 MG TABLET PO ×2 (04:36→18:11)
[2020-09-14] MEDS: Furosemide 40 MG Tablet PO ×2 (04:36→15:29)
[2020-09-14] MEDS: Senna/Docusate Sodium 1 Tablet PO ×2 (04:36→18:11)
[2020-09-14] MEDS: DULoxetine Hcl 30 MG Capsule PO (04:37)
[2020-09-14] MEDS: Menthol/Lanolin/Calamine/Znox 113 GM Tube 1 APPLIC TOPICAL ×2 (04:38→20:09)
[2020-09-14 06:26] LABS: Bedside Glucose 168 mg/dL (70-110)
[2020-09-14] MEDS: Aspirin E.C. 81 MG Tablet PO (08:21)
[2020-09-14] MEDS: Glimepiride 1 MG Tablet PO (08:21)
[2020-09-14 10:00] VITALS: PULSE 95; RESP 16; O2SAT 92
[2020-09-14 11:11] LABS: Bedside Glucose 229 mg/dL (70-110)
[2020-09-14 13:41] VITALS: BP 111/71; PULSE 90; RESP 17; TEMP 36.3; O2SAT 99
[2020-09-14 16:51] LABS: Bedside Glucose 270 mg/dL (70-110)
[2020-09-14] MEDS: Glucerna Shake 120 ML LIQUID PO (18:11)
[2020-09-14 18:13] VITALS: PULSE 90
[2020-09-14 21:45] LABS: Bedside Glucose 176 mg/dL (70-110)
[2020-09-15 05:02] VITALS: BP 113/79; PULSE 96; RESP 16; TEMP 36.6; O2SAT 97
[2020-09-15 05:03] VITALS: BP 113/79; PULSE 96
[2020-09-15] MEDS: Furosemide 40 MG Tablet PO ×2 (05:03→13:32)
[2020-09-15] MEDS: DULoxetine Hcl 30 MG Capsule PO (05:03)
[2020-09-15] MEDS: Digoxin 125 MCG Tablet PO (05:03)
[2020-09-15] MEDS: APIXABAN 5 MG TABLET PO ×2 (05:03→17:24)
[2020-09-15 05:04] VITALS: BP 113/79; PULSE 96
[2020-09-15] MEDS: Polyethylene Glycol 3350 17 GM PACKET PO (05:04)
[2020-09-15] MEDS: Senna/Docusate Sodium 1 Tablet PO ×2 (05:04→16:18)
[2020-09-15] MEDS: Metoprolol Tartrate 100 MG Tablet PO ×2 (05:04→17:24)
[2020-09-15] MEDS: Menthol/Lanolin/Calamine/Znox 113 GM Tube 1 APPLIC TOPICAL ×2 (05:07→16:19)
[2020-09-15 06:05] LABS: Bedside Glucose 135 mg/dL (70-110)
[2020-09-15] MEDS: Glucerna Shake 120 ML LIQUID PO ×3 (08:48→16:15)
[2020-09-15] MEDS: Aspirin E.C. 81 MG Tablet PO (08:48)
[2020-09-15] MEDS: Glimepiride 1 MG Tablet PO (08:48)
[2020-09-15 10:56] LABS: Bedside Glucose 260 mg/dL (70-110)
[2020-09-15 14:33] VITALS: BP 100/60; PULSE 86; RESP 16; TEMP 36.8; O2SAT 95
[2020-09-15 15:41] LABS: Bedside Glucose 175 mg/dL (70-110)
[2020-09-15 17:24] VITALS: BP 93/55; PULSE 88
[2020-09-15 21:10] LABS: Bedside Glucose 189 mg/dL (70-110)
[2020-09-16 05:59] VITALS: BP 104/59; PULSE 97; RESP 18; TEMP 36.6; O2SAT 100
[2020-09-16 06:01] VITALS: BP 104/59; PULSE 97
[2020-09-16] MEDS: APIXABAN 5 MG TABLET PO ×2 (06:01→17:40)
[2020-09-16] MEDS: Polyethylene Glycol 3350 17 GM PACKET PO (06:01)
[2020-09-16] MEDS: Metoprolol Tartrate 100 MG Tablet PO ×2 (06:01→17:39)
[2020-09-16 06:02] VITALS: PULSE 97
[2020-09-16] MEDS: DULoxetine Hcl 30 MG Capsule PO (06:02)
[2020-09-16] MEDS: Digoxin 125 MCG Tablet PO (06:02)
[2020-09-16] MEDS: Furosemide 40 MG Tablet PO ×2 (06:02→14:08)
[2020-09-16] MEDS: Menthol/Lanolin/Calamine/Znox 113 GM Tube 1 APPLIC TOPICAL ×2 (06:04→17:40)
[2020-09-16 06:21] LABS: Bedside Glucose 134 mg/dL (70-110)
--- NOTE | 2020-09-16 07:49 | RAD_ITS ---
STUDY: X-RAY - ABDOMEN/PELVIS REASON FOR EXAM: Male, 80 years old. nausea TECHNIQUE: Single AP view of the abdomen / pelvis. COMPARISON: None. FINDINGS: There is atelectasis or infiltrate in the lower left lung. There is an unremarkable bowel gas pattern. There is no demonstrated free abdominal air. The visualized liver, spleen and kidneys are grossly normal in size and morphology. Surgical clips in the pelvis with a pattern consistent with cystectomy. Penile prosthesis. Normal soft tissue structures. Normal visualized osseous structures. RAD/Abdomen Single View IMPRESSION: No acute abnormality in the abdomen or pelvis. Electronically Signed: Kyle Reno MD at 10:21 EST , Service support ,
--- NOTE | 2020-09-16 07:52 | NURSING ---
Pt C/O of nausea/dry heaving. Dr. Toscano made aware KUB Urinalysis and Zofran ordered.
[2020-09-16] MEDS: Ondansetron ODT 4 MG Tablet PO (08:36)
[2020-09-16] MEDS: Aspirin E.C. 81 MG Tablet PO (08:38)
[2020-09-16] MEDS: Glucerna Shake 120 ML LIQUID PO ×2 (09:53→17:35)
[2020-09-16 10:56] LABS: Bedside Glucose 167 mg/dL (70-110)
[2020-09-16 11:55] LABS: Mucous, Urine 0 SEEN /hpf (<or=2+); Red Blood Cells-Urine 0 SEEN /hpf (0-5); Squamous Epithelial Cells - UA 0 SEEN /hpf (0-5)
[2020-09-16 12:24] LABS: Color, Urine Yellow (Yellow); Glucose, Dipstick Normal (Normal); Ketone-Dipstick Negative (Negative); Leukocyte Esterase-Dipstick 100 /ul (Negative); Nitrite-Dipstick Negative (Negative); Occult Blood-Urine 25 /ul (Negative); Protein-Dipstick Negative (Negative); Urine Bilirubin Dipstick Negative (Negative); Urine Clarity Sl. Cloudy (Clear); Urine Urobilinogen Normal (Normal)
[2020-09-16 12:30] LABS: Bacteria 3+ /hpf (None Seen); White Blood Cells 0-5 SEEN /hpf (0-5)
--- NOTE | 2020-09-16 12:57 | NURSING ---
Multiple attempts made to give morning medications. Patient is refusing due to feeling nauseated and fatigued. Will continue to monitor. Vital signs BP 116/71 Pulse 89 Resp. 18. Temp 97.9 temporal. 1100 blood glucose 167.
[2020-09-16] MEDS: Magnesium Hydroxide 30 ML UDC PO (13:44)
[2020-09-16 15:58] VITALS: BP 116/71; PULSE 89; RESP 18; TEMP 36.6; O2SAT 93
[2020-09-16 16:06] LABS: Bedside Glucose 134 mg/dL (70-110)
[2020-09-16 17:39] VITALS: BP 114/70; PULSE 83
[2020-09-16 21:36] LABS: Bedside Glucose 130 mg/dL (70-110)
[2020-09-17 05:45] VITALS: BP 146/62; PULSE 75; RESP 16; TEMP 36.5; O2SAT 91
[2020-09-17 05:47] VITALS: BP 146/62; PULSE 75
[2020-09-17] MEDS: Digoxin 125 MCG Tablet PO (05:47)
[2020-09-17] MEDS: APIXABAN 5 MG TABLET PO ×2 (05:47→17:29)
[2020-09-17] MEDS: Furosemide 40 MG Tablet PO ×2 (05:47→13:51)
[2020-09-17] MEDS: DULoxetine Hcl 30 MG Capsule PO (05:47)
[2020-09-17] MEDS: Metoprolol Tartrate 100 MG Tablet PO ×2 (05:47→17:29)
[2020-09-17] MEDS: Menthol/Lanolin/Calamine/Znox 113 GM Tube 1 APPLIC TOPICAL ×2 (05:49→17:28)
[2020-09-17 06:20] LABS: Bedside Glucose 109 mg/dL (70-110)
[2020-09-17 06:50] LABS: Digoxin Level 1.48 ng/mL (0.80-2.00)
[2020-09-17] MEDS: Glucerna Shake 120 ML LIQUID PO ×2 (08:08→11:13)
[2020-09-17] MEDS: Aspirin E.C. 81 MG Tablet PO (08:08)
[2020-09-17] MEDS: Glimepiride 1 MG Tablet PO (08:08)
[2020-09-17 11:10] LABS: Bedside Glucose 257 mg/dL (70-110)
[2020-09-17] MEDS: CEFUROXIME AXETIL 250 MG TABLET 500 MG PO ×2 (13:50→17:29)
[2020-09-17 13:57] VITALS: BP 121/69; PULSE 101; RESP 16; TEMP 36.2; O2SAT 96
--- NOTE | 2020-09-17 15:45 | NURSING ---
Mason Lau, updated on resident being put on Ceftin for bladder infection.
--- NOTE | 2020-09-17 16:21 | CHAPLAIN ---
Type of Pastoral Visit ___ Initial Visit _x__ Follow-up Visit ___ On-call Visit ___ General Patient Visit ___ Spiritual Assessment ___ Family Conference ___ Bereavement ___ Rapid Response ___ Code Blue ___ Other (describe below) Pastoral Care Referral From _x__ Patient ___ Family ___ Nurse ___ Physician ___ Rn Postpartum ___ Brake Adjuster ___ Other (describe below) Sacrament/Intervention _x__ Active listening ___ Anointing ___ Latter Day ___ Bereavement ___ Communion ___ Calista exploration ___ _x__ Life review _x__ Prayer ___ Reconciliation ___ Sacrament of Sick _x__ Supportive presence ___ Wedding ___ Other (describe below) Pastoral Comments patient is sitting up in chair and pleasant; 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
[2020-09-17 16:25] LABS: Bedside Glucose 199 mg/dL (70-110)
[2020-09-17 17:29] VITALS: PULSE 101
[2020-09-17 21:25] LABS: Bedside Glucose 332 mg/dL (70-110)
[2020-09-18 05:50] VITALS: BP 125/62; PULSE 89; RESP 16; TEMP 36.1; O2SAT 94
[2020-09-18 05:52] VITALS: BP 125/62; PULSE 89
[2020-09-18] MEDS: APIXABAN 5 MG TABLET PO ×2 (05:52→16:39)
[2020-09-18] MEDS: Metoprolol Tartrate 100 MG Tablet PO ×2 (05:52→16:39)
[2020-09-18] MEDS: CEFUROXIME AXETIL 250 MG TABLET 500 MG PO ×2 (05:52→16:40)
[2020-09-18] MEDS: DULoxetine Hcl 30 MG Capsule PO (05:52)
[2020-09-18] MEDS: Furosemide 40 MG Tablet PO ×2 (05:52→13:09)
[2020-09-18 05:53] VITALS: PULSE 89
[2020-09-18] MEDS: Digoxin 125 MCG Tablet PO (05:53)
[2020-09-18] MEDS: Menthol/Lanolin/Calamine/Znox 113 GM Tube 1 APPLIC TOPICAL ×2 (05:56→16:25)
[2020-09-18 06:21] LABS: Bedside Glucose 183 mg/dL (70-110)
[2020-09-18] MEDS: Glimepiride 1 MG Tablet PO (08:33)
[2020-09-18] MEDS: Aspirin E.C. 81 MG Tablet PO (08:33)
[2020-09-18] MEDS: Acetaminophen 500 MG Tablet 1000 MG PO (08:41)
[2020-09-18 10:55] LABS: Bedside Glucose 224 mg/dL (70-110)
[2020-09-18] MEDS: Glucerna Shake 120 ML LIQUID PO ×2 (11:06→16:24)
[2020-09-18 14:25] VITALS: BP 99/60; PULSE 80; RESP 18; TEMP 36.8; O2SAT 98
--- NOTE | 2020-09-18 14:33 | CASEMGMT ---
Social Work Insurance approved additional days with NRD 09/20 and to anticipate NOMNC with EDC 09/23. Contacted son and provided him with that information. Explained care plan meeting is 09/19 and will review pt's level of assistance, but that he should be safe to return home with . No issues noted. Son appreciative of call. Khloe Fernandez, ANTHROPOMETRIST BEET END SUPERVISOR
[2020-09-18 16:35] LABS: Bedside Glucose 166 mg/dL (70-110)
[2020-09-18 16:39] VITALS: BP 99/60; PULSE 80
[2020-09-18 21:10] LABS: Bedside Glucose 214 mg/dL (70-110)
[2020-09-19 05:39] VITALS: BP 107/63; PULSE 77; RESP 16; TEMP 36.1; O2SAT 95
[2020-09-19] MEDS: CEFUROXIME AXETIL 250 MG TABLET 500 MG PO ×2 (05:42→16:31)
[2020-09-19] MEDS: Senna/Docusate Sodium 1 Tablet PO ×2 (05:43→16:31)
[2020-09-19] MEDS: APIXABAN 5 MG TABLET PO ×2 (05:43→16:32)
[2020-09-19] MEDS: DULoxetine Hcl 30 MG Capsule PO (05:43)
[2020-09-19 05:44] VITALS: BP 107/63; PULSE 77
[2020-09-19 05:44] LABS: Absolute Lymphocyte Count 1.27 X10^3/uL (0.83-4.51); Absolute Neutrophil Count 3.5 X10^3/uL (2.0-7.7); Basophil# 0.05 X10^3/uL; Basophil% 0.9 % (0-1); Eosinophil# 0.14 X10^3/uL; Eosinophils% 2.6 % (0-5); Hematocrit 43.2 % (40-54); Hemoglobin 13.4 g/dL (13.0-16.5); Lymphocyte # 1.27 X10^3/ul (4.0); Lymphocyte % 23.3 % (19-41); Mean Corpuscular Hgb 29.5 pg (27.0-32.0); Mean Corpuscular Volume 94.9 fL (80-94); Mean Platelet Vol. 11.5 fl (6.2-12.0); Monocyte# 0.49 X10^3/uL; NRBC Flagged by Analyzer 0 % (0-5); Platelet Count 156 K/mm3 (150-450); RBC Distribution Width CV 14.6 % (11.6-14.6); RBC Distribution Width SD 50.3 fl (35.1-43.9); Red Blood Count 4.55 M/mm3 (4.6-6.2); White Blood Count 5.5 K/mm3 (4.4-11.0)
[2020-09-19] MEDS: Digoxin 125 MCG Tablet PO (05:44)
[2020-09-19] MEDS: Metoprolol Tartrate 100 MG Tablet PO ×2 (05:44→16:32)
[2020-09-19] MEDS: Furosemide 40 MG Tablet PO ×2 (05:45→12:47)
[2020-09-19] MEDS: Menthol/Lanolin/Calamine/Znox 113 GM Tube 1 APPLIC TOPICAL ×2 (05:49→16:30)
[2020-09-19 06:10] LABS: Anion Gap 3 (5-15); BUN 29 mg/dL (7-18); BUN/Creat Ratio 21.2 RATIO (10-20); Calcium,Total 9.2 mg/dL (8.5-10.1); Chloride 101 mmol/L (98-107); Creatinine, Serum 1.37 mg/dL (0.70-1.30); EST Glomerular Filtration Rate 53 mL/min (>60); Est Glom Filt Rate - Afr Amer 64 mL/min (>60); Estimated Creatinine Clearance 40.91 ml/min; Glucose 125 mg/dL (74-106); Potassium 4.4 mmol/L (3.5-5.1); Sodium Level 137 mmol/L (136-145)
[2020-09-19 06:46] LABS: Bedside Glucose 141 mg/dL (70-110)
[2020-09-19] MEDS: Ondansetron ODT 4 MG Tablet PO (08:03)
--- NOTE | 2020-09-19 08:04 | NURSING ---
PT C/O NAUSEA, ESPECIALLY WHEN HE OPENS HIS EYES. HOLDING AM MEDS FOR NOW. ZOFRAN GIVEN.
[2020-09-19] MEDS: Aspirin E.C. 81 MG Tablet PO (10:38)
[2020-09-19] MEDS: Glimepiride 1 MG Tablet PO (10:38)
[2020-09-19 11:01] LABS: Bedside Glucose 167 mg/dL (70-110)
[2020-09-19] MEDS: Glucerna Shake 120 ML LIQUID PO ×2 (11:52→16:30)
[2020-09-19 13:44] VITALS: BP 112/64; PULSE 80; RESP 17; TEMP 36.2; O2SAT 96
--- NOTE | 2020-09-19 14:39 | CASEMGMT ---
Social Work IDT met with patient and son via conference call for care plan meeting. Discussed patient's progress in therapy. Pt is is Lynne for bed mobility, tx, ambulating 120 ft with FWW, grooming, toileting, supervised for all ADLs, using 3# wts for seated and standing LE exercises. Pt is regular, NINA diet, 1500 cc fluid restriction, receiving ensure, weight stable, but has edema in legs, good intake. Pt is out of isolation 09/25, no O2. Explained [employer] [facility] insurance NRD 09/20 and indicated will be issuing NOMNC. Pt requesting to DC 09/22, IDT agreeable. Notified insurance to issue NOMNC. Notified Palliative of DC date. Referred to ELIZA and [facility] PT/OT/SN/SW. No DME needs. Plan: DC home 09/22 with [facility] PT/OT/SN/SW, ELIZA Fernandez, TRAVEL ATTENDANTS TELEHEALTH CASE MANAGER
[2020-09-19 16:32] VITALS: PULSE 80
[2020-09-19 16:55] LABS: Bedside Glucose 154 mg/dL (70-110)
--- NOTE | 2020-09-19 19:43 | PCM.DC ---
- Discharge Diagnoses Current Active Problems: Current Active and Chronic Problems (Last Reviewed 08/23/20 @ 16:[address] Jason Lemus MD) Debility (Acute) Hypokalemia (Chronic) Coronary artery disease (Chronic) Chronic kidney disease (Chronic) Hypertension (Chronic) Prostate cancer (Chronic) Depression (Chronic) Chronic systolic congestive heart failure (Chronic) Diabetes mellitus type 2 in nonobese (Chronic) Anxiety (Chronic) Atrial fibrillation with rapid ventricular response (Acute 08/09/20) Hypotension (Acute) Hyperlipidemia (Chronic) You will use the following diet at home:: No restrictions, Regular Your food should be the consistency of: Regular Your liquids should be the consistency of: Regular/Thin Discharge Activity: Return to Normal Activity, May Shower, Use Walker Weight Bearing Status: Weight bearing as tolerated Call your doctor if you observe: Fever of 101 or Higher, Inability to urinate, Inability to have a bowel movement, Shortness of breath, Chest pain, Uncontrolled pain Allergies/Adverse Reactions: Allergies spironolactone Allergy (Verified 09/09/20 00:47) severe weakness lisinopril Adverse Reaction (Mild, Verified 09/09/20 00:47) Dry cough amiodarone Adverse Reaction (Verified 09/09/20 00:47) toxicity Medications to take at Discharge Aspirin E.C. [Ecotrin] 81 mg PO DAILY@0800 07/17/20 Duloxetine Hcl [Cymbalta] 30 mg PO DAILY 08/09/20 Menthol/Lanolin/Calamine/Znox [Calmoseptine Ointment] 1 applic TOPICAL BID 09/09/20 Apixaban [Eliquis] 5 mg PO BID #0 09/11/20 Digoxin [Lanoxin] 125 mcg PO DAILY 09/11/20 Metoprolol Tartrate [Lopressor (beta kelsey)] 100 mg PO BID 09/11/20 Acetaminophen [Tylenol] 1,000 mg PO Q6H PRN PRN tablet 09/19/20 Cefuroxime Axetil [Ceftin] 500 mg PO Q12 #5 tab 09/19/20 Furosemide [Lasix] 40 mg PO BIDLX #60 tab 09/19/20 Glimepiride [Amaryl] 1 mg PO DAILY #30 tab 09/19/20 Ondansetron [Zofran Odt] 4 mg PO Q8H PRN PRN #28 tab 09/19/20 Potassium Chloride [K-Dur] 20 meq PO BIDCM #60 tab 09/19/20 The following prescriptions were given: Glimepiride [Amaryl] 1 mg PO DAILY #30 tab Transmission Status: Pending to [id number] Cefuroxime Axetil [Ceftin] 500 mg PO Q12 #5 tab Transmission Status: Pending to [facility] Potassium Chloride [K-Dur] 20 meq PO BIDCM #60 tab Transmission Status: Pending to [facility] Furosemide [Lasix] 40 mg PO BIDLX #60 tab Transmission Status: Pending to [facility] Ondansetron [Zofran Odt] 4 mg PO Q8H PRN PRN #28 tab PRN Reason: Nausea Transmission Status: Pending to [facility] Primary Care Physician: Abdoulaye Brock MD [Primary Care Provider] - Please follow up with your Primary Care Physician in: 1 week. Test Results: Test results from this visit will be discussed in further detail at your follow-up appointment, if applicable. Please Follow Up With: Abdoulaye Brock MD When: d/c from tcu Please Follow Up With: Jason Lemus MD When: 1-2 Weeks Proposed Discharge Date: 09/22/20
--- NOTE | 2020-09-19 19:44 | PCM.DC.SUM ---
Discharge Date and Diagnosis - Problem List Patient Problems: Active and Suspected Problems (Last Reviewed 08/23/20 @ 16:[address] Jason Lemus MD) Debility (Acute) Atrial fibrillation with rapid ventricular response (Acute 08/09/20) Hypotension (Acute) Date of Admission: 09/11/20 Date of Discharge: 09/22/20 - Primary Discharge Diagnosis Acute Problems: Active Problems (Last Reviewed 08/23/20 @ 16:[address] Jason Lemus MD) Debility (Acute) Atrial fibrillation with rapid ventricular response (Acute 08/09/20) Hypotension (Acute) - Secondary Discharge Diagnosis Chronic Problems: Chronic Problems (Last Reviewed 08/23/20 @ 16:[address] 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) VVI 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 Bradycardia (Chronic) Atherosclerosis of coronary artery of [place] heart with angina pectoris (Chronic) History of non-ST elevation myocardial infarction (NSTEMI) (Chronic 05/2017) 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) CABG x 4: COLES-LAD, SVG-D1, SVG to proximal end of SVG to diagonal going to OM 2, and SVG-RPDA 10/30/16 Ischemic cardiomyopathy (Chronic) Secondary pulmonary arterial hypertension (Chronic) Left bundle branch block (LBBB) (Chronic) Essential (primary) hypertension (Chronic) Hyperlipidemia (Chronic) Hospital Course and Treatment Imaging Results: 09/11/20 13:21 Diet: Regular - General Food consistency:: Regular Liquid Consistency:: Regular/Thin Dietary Modifications:: No Added Salt Is pt able to select menu?: No Clinical Impression(s) from Imaging Studies KUB X-Ray 09/16/20 07:49 IMPRESSION: No acute abnormality in the abdomen or pelvis. Electronically Signed: Kyle Reno MD at 10:21 EST , Service support , Labs (Last 48 Hours) 09/17/20 09/18/20 09/18/20 21:00 06:11 10:47 WBC RBC Hgb Hct MCV MCH MCHC RDW Std Deviation RDW Coeff of Shashank Plt Count MPV Immature Gran % (Auto) Neut % (Auto) Lymph % (Auto) [place] % (Auto) Eos % (Auto) Baso % (Auto) Absolute Neuts (auto) Absolute Lymphs (auto) Nucleated RBC % Sodium Potassium Chloride Carbon Dioxide Anion Gap BUN Creatinine Estim Creat Clear Calc Est GFR (MDRD) Af Amer Est GFR (MDRD) Non-Af BUN/Creatinine Ratio Glucose Calcium POC Glucose 332 H 183 H 224 H 09/18/20 09/18/20 09/19/20 16:24 20:59 05:30 WBC 5.5 RBC 4.55 L Hgb 13.4 Hct 43.2 MCV 94.9 H MCH 29.5 MCHC 31.0 L RDW Std Deviation 50.3 H RDW Coeff of Shashank 14.6 Plt Count 156 MPV 11.5 Immature Gran % (Auto) 0.200 Neut % (Auto) 64.0 Lymph % (Auto) 23.3 [place] % (Auto) 9.0 Eos % (Auto) 2.6 Baso % (Auto) 0.9 Absolute Neuts (auto) 3.5 Absolute Lymphs (auto) 1.27 Nucleated RBC % 0 Sodium Potassium Chloride Carbon Dioxide Anion Gap BUN Creatinine Estim Creat Clear Calc Est GFR (MDRD) Af Amer Est GFR (MDRD) Non-Af BUN/Creatinine Ratio Glucose Calcium POC Glucose 166 H 214 H 09/19/20 09/19/20 09/19/20 05:30 06:24 10:43 WBC RBC Hgb Hct MCV MCH MCHC RDW Std Deviation RDW Coeff of Shashank Plt Count MPV Immature Gran % (Auto) Neut % (Auto) Lymph % (Auto) [place] % (Auto) Eos % (Auto) Baso % (Auto) Absolute Neuts (auto) Absolute Lymphs (auto) Nucleated RBC % Sodium 137 Potassium 4.4 Chloride 101 Carbon Dioxide 33.0 H Anion Gap 3 L BUN 29 H Creatinine 1.37 H Estim Creat Clear Calc 40.91 Est GFR (MDRD) Af Amer 64 Est GFR (MDRD) Non-Af 53 L BUN/Creatinine Ratio 21.2 H Glucose 125 H Calcium 9.2 POC Glucose 141 H 167 H 09/19/20 16:44 WBC RBC Hgb Hct MCV MCH MCHC RDW Std Deviation RDW Coeff of Shashank Plt Count MPV Immature Gran % (Auto) Neut % (Auto) Lymph % (Auto) [place] % (Auto) Eos % (Auto) Baso % (Auto) Absolute Neuts (auto) Absolute Lymphs (auto) Nucleated RBC % Sodium Potassium Chloride Carbon Dioxide Anion Gap BUN Creatinine Estim Creat Clear Calc Est GFR (MDRD) Af Amer Est GFR (MDRD) Non-Af BUN/Creatinine Ratio Glucose Calcium POC Glucose 154 H Microbiology 09/16/20 11:40 Urine, Clean Catch Urine Culture - Final Citrobacter koseri Operations: None Procedures: None Summary of Care Provided: The patient is a 80 year old Male with below past medical history hospitalized for atrial fibrillation with rapid ventricular response, complicated by hypotension, admitted to TCU with debility, here for rehabilitation, strengthening, prior to discharge home with spouse. On TCU, resident had trial of Entresto, intolerable due to hypotension, worsening renal function. Resident had Citrobacter Koseri UTI, will discharge home on Ceftin 500MG BID to finish 7 day course. Discharge home with , [facility] PT/OT/SN/SW, [facility]. Patient Problems: Active and Suspected Problems (Last Reviewed 08/23/20 @ 16:[address] Jason Lemus MD) Debility (Acute) Atrial fibrillation with rapid ventricular response (Acute 08/09/20) Hypotension (Acute) - Physical Exam Vitals/I&O's: Vital Signs Temp Pulse Resp BP Pulse Ox 97.2 F L 80 17 112/64 96 09/19/20 13:44 09/19/20 16:32 09/19/20 13:44 09/19/20 13:44 09/19/20 13:44 Oxygen Delivery Method Room Air Weight: 69.57 kg Body Mass Index (BMI) 22.4 Intake and Output for Last 24 Hours 09/17/20 09/18/20 09/19/20 23:59 23:59 23:59 Intake Total 600 / 600 540 / 540 720 / 720 Balance 600 / 600 540 / 540 720 / 720 Microbiology Past 72 Hours 09/16/20 11:40 Urine, Clean Catch Urine Culture - Final Citrobacter koseri Laboratory Results 09/18/20 20:59: POC Glucose 214 H 09/19/20 05:30: WBC 5.5, RBC 4.55 L, Hgb 13.4, Hct 43.2, MCV 94.9 H, MCH 29.5, MCHC 31.0 L, RDW Std Deviation 50.3 H, RDW Coeff of Shashank 14.6, Plt Count 156, MPV 11.5, Immature Gran % (Auto) 0.200, Neut % (Auto) 64.0, Lymph % (Auto) 23.3, [place] % (Auto) 9.0, Eos % (Auto) 2.6, Baso % (Auto) 0.9, Absolute Neuts (auto) 3.5, Absolute Lymphs (auto) 1.27, Nucleated RBC % 0 09/19/20 05:30: Sodium 137, Potassium 4.4, Chloride 101, Carbon Dioxide 33.0 H, Anion Gap 3 L, BUN 29 H, Creatinine 1.37 H, Estim Creat Clear Calc 40.91, Est GFR (MDRD) Af Amer 64, Est GFR (MDRD) Non-Af 53 L, BUN/Creatinine Ratio 21.2 H, Glucose 125 H, Calcium 9.2 09/19/20 06:24: POC Glucose 141 H 09/19/20 10:43: POC Glucose 167 H 09/19/20 16:44: POC Glucose 154 H Current Medications Acetaminophen (Acetaminophen 500 Mg Tablet) 1,000 mg PO Q6H PRN PRN PRN Reason: Pain Score 1-10 Last Admin: 09/18/20 08:41 Dose: 1,000 mg Documented by: Apixaban (Apixaban 5 Mg Tablet) 5 mg PO BID [facility] Last Admin: 09/19/20 16:32 Dose: 5 mg Documented by: Aspirin (Aspirin E.C. 81 Mg Tablet) 81 mg PO DAILY@0800 [facility] Last Admin: 09/19/20 10:38 Dose: 81 mg Documented by: Calamine/Phenol (Menthol/Lanolin/Calamine/Znox 113 Gm Tube) 1 applic TOPICAL BID [facility]; Protocol Last Admin: 09/19/20 16:30 Dose: 1 applicatio Documented by: Cefuroxime Axetil (Cefuroxime Axetil 250 Mg Tablet) 500 mg PO Q12 [facility] Stop: 09/24/20 18:01 Last Admin: 09/19/20 16:31 Dose: 500 mg Documented by: Digoxin (Digoxin 125 Mcg Tablet) 125 mcg PO DAILY [facility] Last Admin: 09/19/20 05:44 Dose: 125 mcg Documented by: Duloxetine HCl (Duloxetine Hcl 30 Mg Capsule) 30 mg PO DAILY [facility] Last Admin: 09/19/20 05:43 Dose: 30 mg Documented by: Furosemide (Furosemide 40 Mg Tablet) 40 mg PO BIDLX [facility] Last Admin: 09/19/20 12:47 Dose: 40 mg Documented by: Glimepiride (Glimepiride 1 Mg Tablet) 1 mg PO DAILYCM [facility] Last Admin: 09/19/20 10:38 Dose: 1 mg Documented by: Guaifenesin (Guaifenesin 10 Ml Udc (200mg/10ml)) 20 ml PO Q4H PRN PRN PRN Reason: COUGH Metoprolol Tartrate (Metoprolol Tartrate 100 Mg Tablet) 100 mg PO BID [facility] Last Admin: 09/19/20 16:32 Dose: 100 mg Documented by: Nutritional Formula (Lactose Free) (Glucerna Shake 120 Ml Liquid) 120 ml PO TIDCM [facility] Last Admin: 09/19/20 16:30 Dose: 120 ml Documented by: Ondansetron HCl (Ondansetron Odt 4 Mg Tablet) 4 mg PO Q8H PRN PRN PRN Reason: Nausea Last Admin: 09/19/20 08:03 Dose: 4 mg Documented by: Polyethylene Glycol (Polyethylene Glycol 3350 17 Gm Packet) 17 gm PO DAILY [facility] Last Admin: 09/19/20 05:43 Dose: Not Given Documented by: Potassium Chloride (Potassium Chloride 20 Meq Tablet) 20 meq PO BIDCM [facility] Last Admin: 09/19/20 16:30 Dose: 20 meq Documented by: Senna/Docusate Sodium (Senna/Docusate Sodium 1 Tablet) 1 tablet PO BID [facility] Last Admin: 09/19/20 16:31 Dose: 1 tablet Documented by: Sodium Chloride (0.9% Saline Lock 10 Ml Syringe) 10 - 40 ml IV UD PRN PRN Reason: SALINE FLUSH Last Admin: 09/12/20 16:44 Dose: 10 ml Documented by: Discharge Diet: No Restrictions Discharge Activity: Return to Normal Activity, May Shower, Use Walker Weight Bearing Status: Weight bearing as tolerated Call your doctor if you observe: Fever of 101 or Higher, Inability to urinate, Inability to have a bowel movement, Shortness of breath, Chest pain, Uncontrolled pain Home Medications: Medications to take at Discharge Aspirin E.C. [Ecotrin] 81 mg PO DAILY@0800 07/17/20 Duloxetine Hcl [Cymbalta] 30 mg PO DAILY 08/09/20 Menthol/Lanolin/Calamine/Znox [Calmoseptine Ointment] 1 applic TOPICAL BID 09/09/20 Apixaban [Eliquis] 5 mg PO BID #0 09/11/20 Digoxin [Lanoxin] 125 mcg PO DAILY 09/11/20 Metoprolol Tartrate [Lopressor (beta kelsey)] 100 mg PO BID 09/11/20 Acetaminophen [Tylenol] 1,000 mg PO Q6H PRN PRN tablet 09/19/20 Cefuroxime Axetil [Ceftin] 500 mg PO Q12 #5 tab 09/19/20 Furosemide [Lasix] 40 mg PO BIDLX #60 tab 09/19/20 Glimepiride [Amaryl] 1 mg PO DAILY #30 tab 09/19/20 Ondansetron [Zofran Odt] 4 mg PO Q8H PRN PRN #28 tab 09/19/20 Potassium Chloride [K-Dur] 20 meq PO BIDCM #60 tab 09/19/20 Following Prescriptions Were Given to Patient: Glimepiride [Amaryl] 1 mg PO DAILY #30 tab Transmission Status: Pending to [facility] Cefuroxime Axetil [Ceftin] 500 mg PO Q12 #5 tab Transmission Status: Pending to [facility] Potassium Chloride [K-Dur] 20 meq PO BIDCM #60 tab Transmission Status: Pending to [facility] Furosemide [Lasix] 40 mg PO BIDLX #60 tab [facility] Status[facility] Ondansetron [Zofran Odt] 4 mg PO Q8H PRN PRN #28 tab PRN Reason: Nausea Transmission Status: Pending to [facility] Primary Care Physician: Abdoulaye Brock MD [Primary Care Provider] - Please follow up with your Primary Care Physician in: 1 week. Please Follow Up With: Abdoulaye Brock MD When: d/c from tcu Please Follow Up With: Jason Lemus MD When: 1-2 Weeks Disposition: Home with Home Health Minutes spent on discharge:: 35 Patient Condition:: Stable Medical Necessity - Tobacco Use Smoking Status: Never smoker Tobacco Use: Non-smoker Meaningful Use Info Meaningful Use Diagnoses (Choose all that apply): None applicable
[2020-09-19 21:36] LABS: Bedside Glucose 232 mg/dL (70-110)
[2020-09-20 06:15] LABS: Bedside Glucose 114 mg/dL (70-110)
[2020-09-20 06:28] VITALS: BP 131/68; PULSE 84; RESP 18; TEMP 36.3; O2SAT 97
[2020-09-20 06:29] VITALS: BP 131/68; PULSE 84
[2020-09-20] MEDS: Digoxin 125 MCG Tablet PO (06:29)
[2020-09-20] MEDS: Polyethylene Glycol 3350 17 GM PACKET PO (06:29)
[2020-09-20] MEDS: DULoxetine Hcl 30 MG Capsule PO (06:30)
[2020-09-20] MEDS: Senna/Docusate Sodium 1 Tablet PO ×2 (06:30→17:18)
[2020-09-20] MEDS: Furosemide 40 MG Tablet PO ×2 (06:30→12:40)
[2020-09-20] MEDS: CEFUROXIME AXETIL 250 MG TABLET 500 MG PO ×2 (06:30→16:25)
[2020-09-20 06:31] VITALS: BP 131/68; PULSE 84
[2020-09-20] MEDS: Metoprolol Tartrate 100 MG Tablet PO ×2 (06:31→17:19)
[2020-09-20] MEDS: APIXABAN 5 MG TABLET PO ×2 (06:31→17:19)
[2020-09-20] MEDS: Glucerna Shake 120 ML LIQUID PO ×2 (09:16→12:04)
[2020-09-20] MEDS: Glimepiride 1 MG Tablet PO (09:17)
[2020-09-20] MEDS: Aspirin E.C. 81 MG Tablet PO (09:17)
[2020-09-20 09:53] LABS: Digoxin Level 2.29 ng/mL (0.80-2.00)
--- NOTE | 2020-09-20 10:31 | NURSING ---
Digoxin lab drawn this am 2.29. Updated [place] holding Digoxin until repeat Dig levels on 09/22.
[2020-09-20 11:21] LABS: Bedside Glucose 269 mg/dL (70-110)
[2020-09-20 13:37] VITALS: BP 117/57; PULSE 66; RESP 16; TEMP 36.2; O2SAT 95
--- NOTE | 2020-09-20 14:22 | MDS.RN ---
Information for the mds was obtained from review of the clinical record, interview of resident, staff, and direct observation of resident's care.
[2020-09-20] MEDS: Acetaminophen 500 MG Tablet 1000 MG PO (16:25)
[2020-09-20 16:51] LABS: Bedside Glucose 175 mg/dL (70-110)
[2020-09-20] MEDS: Menthol/Lanolin/Calamine/Znox 113 GM Tube 1 APPLIC TOPICAL (17:17)
[2020-09-20 17:19] VITALS: PULSE 84
--- NOTE | 2020-09-20 17:28 | NURSING ---
Resident and family notified of staff members testing positive for COVID.
[2020-09-20 21:26] LABS: Bedside Glucose 212 mg/dL (70-110)
--- NOTE | 2020-09-21 05:50 | NURSING ---
Talked topt about bm, denies having one, last charted was on 09/17, pt states he is having a lot of flatus. Refused milk of mag at this time, agreeable to prunes, called kitchen to order with breakfast. Day shift RN notified.
[2020-09-21 05:51] VITALS: BP 122/77; PULSE 83; RESP 16; TEMP 35.7; O2SAT 97
[2020-09-21] MEDS: Polyethylene Glycol 3350 17 GM PACKET PO (05:52)
[2020-09-21 05:54] VITALS: BP 122/77; PULSE 83
[2020-09-21] MEDS: Senna/Docusate Sodium 1 Tablet PO ×2 (05:54→19:18)
[2020-09-21] MEDS: Metoprolol Tartrate 100 MG Tablet PO ×2 (05:54→19:19)
[2020-09-21] MEDS: CEFUROXIME AXETIL 250 MG TABLET 500 MG PO ×2 (05:54→19:14)
[2020-09-21] MEDS: DULoxetine Hcl 30 MG Capsule PO (05:54)
[2020-09-21] MEDS: Furosemide 40 MG Tablet PO (05:55)
[2020-09-21] MEDS: APIXABAN 5 MG TABLET PO ×2 (05:55→19:15)
[2020-09-21] MEDS: Menthol/Lanolin/Calamine/Znox 113 GM Tube 1 APPLIC TOPICAL ×2 (05:57→19:16)
[2020-09-21 06:20] LABS: Bedside Glucose 267 mg/dL (70-110)
--- NOTE | 2020-09-21 08:59 | MDS.RN ---
Pain interview for KHALIF 09/22/20 completed.
[2020-09-21] MEDS: Glucerna Shake 120 ML LIQUID PO ×2 (09:06→11:38)
[2020-09-21] MEDS: Glimepiride 1 MG Tablet PO (09:07)
[2020-09-21] MEDS: Aspirin E.C. 81 MG Tablet PO (09:07)
--- NOTE | 2020-09-21 09:13 | CASEMGMT ---
Social Work BIMS and PHQ-9 completed for MDS assessment. Khloe Fernandez, HALF SOLE FITTER SPEEDER WORKER
[2020-09-21 10:56] LABS: Bedside Glucose 323 mg/dL (70-110)
--- NOTE | 2020-09-21 12:32 | NURSING ---
Addendum entered by Ladonna Baer 09/21/20 12:39: Updated Family on Pt going to the Emergency Room. Original Note: ENGINEERING AGENT came to this nurse stating that Pt didn't look good. BP 121/72 Spo2 96% RA Pulse 90 R16 T 97.6 Temporal. Pt unable to keep eye's open c/o of nausea and feeling tired. Pt stated I feel like this is my last leg. Dr. Toscano updated and Pt sent to Emergency Room in bed. Will update family.
[2020-09-21 14:00] VITALS: BP 121/72; PULSE 90; RESP 16; TEMP 36.4; O2SAT 96
[2020-09-21 19:19] VITALS: BP 129/84; PULSE 108
--- NOTE | 2020-09-21 19:30 | NURSING ---
Pt back from emergency room. Pt still feeling nauseated. Dr. Toscano aware. Dr. Toscano said that if he would like to stay till Thursday that he could. Let Pt know this and he stated I'm not sure I will see how I feel in the morning.
[2020-09-21 21:51] LABS: Bedside Glucose 219 mg/dL (70-110)
[2020-09-22 05:00] VITALS: BP 131/89; PULSE 91; RESP 18; TEMP 36.6; O2SAT 94
[2020-09-22] MEDS: Polyethylene Glycol 3350 17 GM PACKET PO (05:48)
[2020-09-22] MEDS: Senna/Docusate Sodium 1 Tablet PO (05:50)
[2020-09-22] MEDS: Menthol/Lanolin/Calamine/Znox 113 GM Tube 1 APPLIC TOPICAL (05:52)
[2020-09-22] MEDS: Ondansetron ODT 4 MG Tablet PO (05:54)
[2020-09-22 06:25] LABS: Bedside Glucose 200 mg/dL (70-110)
[2020-09-22 06:37] VITALS: PULSE 91
[2020-09-22] MEDS: Furosemide 40 MG Tablet PO (06:37)
[2020-09-22] MEDS: APIXABAN 5 MG TABLET PO (06:37)
[2020-09-22] MEDS: Metoprolol Tartrate 100 MG Tablet PO (06:37)
[2020-09-22] MEDS: CEFUROXIME AXETIL 250 MG TABLET 500 MG PO (06:37)
[2020-09-22] MEDS: DULoxetine Hcl 30 MG Capsule PO (06:39)
[2020-09-22] MEDS: Glimepiride 1 MG Tablet PO ×2 (08:48→08:51)
[2020-09-22] MEDS: Aspirin E.C. 81 MG Tablet PO ×2 (08:48→08:51)
[2020-09-22] MEDS: Glucerna Shake 120 ML LIQUID PO (08:48)
[2020-09-22 08:57] LABS: Digoxin Level 1.46 ng/mL (0.80-2.00)
[2020-09-22 10:00] VITALS: PULSE 79; RESP 18; O2SAT 91
[2020-09-22 10:27] VITALS: BP 131/89; PULSE 79; RESP 18; TEMP 36.6; O2SAT 91
== END 2020-09-22 10:10 | disposition home health service (06) | DRG 309 ==
PROVIDERS: Admitting Provider Family Medicine Geriatric Medicine; PCP Family Medicine; Visit Provider Family Medicine Geriatric Medicine
DX: I48.19 Other persistent atrial fibrillation (principal); I13.0 Hypertensive heart and chronic kidney disease with heart failure and stage 1 through stage 4 chronic kidney disease, or unspecified chronic kidney disease; I50.42 Chronic combined systolic (congestive) and diastolic (congestive) heart failure; N39.0 Urinary tract infection, site not specified; N18.9 Chronic kidney disease, unspecified; E11.22 Type 2 diabetes mellitus with diabetic chronic kidney disease; F32.9 Major depressive disorder, single episode, unspecified; I25.10 Atherosclerotic heart disease of native coronary artery without angina pectoris; E87.6 Hypokalemia; E78.5 Hyperlipidemia, unspecified; I25.5 Ischemic cardiomyopathy; I27.21 Secondary pulmonary arterial hypertension; I25.2 Old myocardial infarction; Z95.1 Presence of aortocoronary bypass graft; B96.89 Other specified bacterial agents as the cause of diseases classified elsewhere; T46.0X1A Poisoning by cardiac-stimulant glycosides and drugs of similar action, accidental (unintentional), initial encounter; Y92.129 Unspecified place in nursing home as the place of occurrence of the external cause
CPT/HCPCS: 36415; 74018; 80048; 80162; 81001; 82962; 85025; 87077; 87086; 87088; 87186; 97110; 97116; 97162; 97166; 97530; 97535; 97802; A4216

== ENCOUNTER 2020-09-21 12:38 | Emergency (ER) | payer MEDICARE, SELFPAY ==
[2020-09-21] VITALS (7 sets, daily range): BP systolic 121–146; BP diastolic 65–104; PULSE 87–105; RESP 17–96; TEMP 36.4; O2SAT 32–96; BMI 23.3
--- NOTE | 2020-09-21 13:06 | EKG12_ITS ---
Test Reason : Blood Pressure : / mmHG Vent. Rate : 113 BPM Atrial Rate : 119 BPM P-R Int : 000 ms QRS Dur : 132 ms QT Int : 342 ms P-R-T Axes : 000 026 216 degrees QTc Int : 469 ms Atrial fibrillation with rapid ventricular response Left bundle branch block Abnormal ECG Confirmed by DOMINIQUE MONTOYA, STARLA ([id number]), development editor KONG PAGAN ([id number]) on 09/24/2020 1:15:26 PM Referred By: SAUL/BIRGIT Confirmed By:STARLA FOX MD
[2020-09-21 13:31] LABS: Absolute Lymphocyte Count 1.93 X10^3/uL (0.83-4.51); Basophil# 0.05 X10^3/uL; Basophil% 0.5 % (0-1); Eosinophils% 20.9 % (0-5); Hematocrit 49.6 % (40-54); Hemoglobin 15.3 g/dL (13.0-16.5); Lymphocyte # 1.93 X10^3/ul (4.0); Lymphocyte % 19.8 % (19-41); Mean Corp Hgb Conc 30.8 g/dL (32-36); Mean Corpuscular Hgb 29.9 pg (27.0-32.0); Mean Corpuscular Volume 97.1 fL (80-94); Mean Platelet Vol. 12.1 fl (6.2-12.0); Monocyte# 0.71 X10^3/uL; Monocyte% 7.3 % (0-10); NRBC Flagged by Analyzer 0 % (0-5); Neutrophil # 4.99 X10^3/uL (2.7-7.7); Neutrophil % 51.3 % (47-70); POSITIVE DIFFERENTIAL YES; POSITIVE MORPHOLOGY YES; Platelet Count 180 K/mm3 (150-450); RBC Distribution Width SD 52.8 fl (35.1-43.9); Red Blood Count 5.11 M/mm3 (4.6-6.2); White Blood Count 9.7 K/mm3 (4.4-11.0)
--- NOTE | 2020-09-21 13:40 | CM.ED ---
Social Work Telephone call from U social media marketer, Suni Fernandez. Patient from TCU. Patient with planned discharge for 09/22/2020 to home with spouse [facility], CCN, and Palliative Care referral. Patient last covered day for insurance is tomorrow. Patient has been KARLY on TCU. Patient is able to return to TCU if medically cleared in ED. This social media marketer updated Dr. Delgadillo on above. Ashley Arroyo MSW, TIFFANYS
[2020-09-21 13:41] LABS: ALB/GLOB Ratio 0.8 RATIO (0.9-2.4); AST(SGOT) 45 U/L (15-37); Alanine Aminotransfer ALT/SGPT 43 U/L (16-61); Albumin, Serum 3.3 g/dL (3.2-5.0); Alkaline Phosphatase 137 U/L (45-117); Anion Gap 7 (5-15); BUN 30 mg/dL (7-18); BUN/Creat Ratio 16.9 RATIO (10-20); Calcium,Total 9.7 mg/dL (8.5-10.1); Chloride 99 mmol/L (98-107); Creatinine, Serum 1.77 mg/dL (0.70-1.30); EST Glomerular Filtration Rate 39 mL/min (>60); Est Glom Filt Rate - Afr Amer 48 mL/min (>60); Estimated Creatinine Clearance 32.18 ml/min; Globulin 4.3 g/dL (2.2-4.2); Glucose 288 mg/dL (74-106); Potassium 5.1 mmol/L (3.5-5.1); Protein, Total 7.6 g/dL (6.4-8.2); Sodium Level 138 mmol/L (136-145)
[2020-09-21 13:42] LABS: Differential Indicated SCAN CRITERIA MET; Eosinophil# 2.04 X10^3/uL
[2020-09-21] MEDS: Ondansetron 4 MG/2 ML Vial IV (13:58)
[2020-09-21] MEDS: Metoprolol Tartrate 5 MG/5 ML Vial IV (14:00)
--- NOTE | 2020-09-21 14:30 | RAD_ITS ---
STUDY: X-RAY CHEST REASON FOR EXAM: Male, 80 years old. General illness pt states and quot;i feel like im going to . and quot; -- HX PROSTATE CA, AFIB TECHNIQUE: Single AP portable view of the chest. COMPARISON: Comparison is made with prior study dated 09/09/2020. FINDINGS: EKG electrodes are seen. Since prior study, there has been progressive pleural parenchymal changes at the left lung base. Stable mild increased markings at the right lung base. There is evidence of vascular congestion and mild CHF. Sternal cerclage wires and vascular clips are present from a prior sternotomy and coronary artery bypass graft procedure (CABG). Normal mediastinum and heaven. Normal visualized pulmonary arteries. There is atherosclerotic calcification of the aortic arch with tortuosity. Normal visualized thoracic spine. Normal visualized ribs, clavicles, and shoulders. There is no demonstrated abnormality of the visualized soft tissue structures of the upper abdomen. RAD/Chest 1 View (Portable) IMPRESSION: Findings suggestive of a mild degree of CHF with left basilar atelectasis and/or infiltrate with blunting of both costophrenic angles. Electronically Signed: Manny Valle, at 14:47 EST , Service support ,
[2020-09-21 14:36] LABS: Bacteria 0 SEEN /hpf (None Seen); Mucous, Urine 0 SEEN /hpf (<or=2+); Red Blood Cells-Urine 0 SEEN /hpf (0-5); White Blood Cells 0 SEEN /hpf (0-5)
[2020-09-21 14:57] LABS: Color, Urine Yellow (Yellow); Glucose, Dipstick 100 mg/dl (Normal); Ketone-Dipstick Negative (Negative); Leukocyte Esterase-Dipstick Negative /ul (Negative); Nitrite-Dipstick Negative (Negative); Occult Blood-Urine Negative /ul (Negative); Protein-Dipstick 30 mg/dl (Negative); Specific Gravity, Urine 1.015 (1.002-1.030); Urine Bilirubin Dipstick Negative (Negative); Urine Clarity Clear (Clear); Urine Urobilinogen Normal (Normal)
[2020-09-21 15:23] LABS: Squamous Epithelial Cells - UA 0-5 SEEN /hpf (0-5)
[2020-09-21 17:22] LABS: Digoxin Level 1.62 ng/mL (0.80-2.00)
--- NOTE | 2020-09-21 17:44 | ED.VISSUMM ---
- ER Visit Summary Date of Service: 09/21/20 Chief Complaint: Nausea History of Present Illness: The patient is a 80 M who is currently on TCU. He reportedly did not look well today and told the nurses that I think I am going to . He was sent down to the emergency department. Patient reports that he had nausea and dry heaves today. He denies any fever or chills. No chest pain, cough, or difficulty breathing. No abdominal pain or diarrhea. His last bowel was 2 days ago and typically he goes daily. He is passing flatus. He denies any dysuria or frequency. No headache, numbness, or weakness. Physical Examination: Vitals: Stable. Afebrile. General: Well-nourished and well-developed. Head: Normocephalic atraumatic. Neck: Supple, no lymphadenopathy. No JVD. Nontender. Cardiovascular: Regular rhythm with a 2 out of 6 systolic murmur. Respiratory: No respiratory distress. Crackles at the bases bilaterally. Abdominal: Soft, nontender, nondistended, normal bowel sounds. No guarding, rebound, or peritoneal signs. Back: Nontender. Extremities: Nontender, 1+ pitting edema of his lower extremities bilaterally. Skin: Normal color, no rash. Neurologic: Alert and oriented ?3. Cranial nerves II through XII are intact. Normal strength and sensation. Psych: Normal affect. Test Results: EKG is A. fib at 113 with a left bundle branch block. Is unchanged from last month. Troponin 0 0.17. Last month it ranged from 0.189?0.552. Covid is negative. UA is negative. LFTs show globulin 4.3 and alk phos of 137. AST is 45. Chem-7 shows a glucose of 288, BUN 30, creatinine 1.77. Creatinine was 1.372 days ago. CBC was eosinophils of 21. Digoxin level is 1.62. Clinical Impression(s) from Imaging Studies Chest X-Ray 09/21/20 14:30 IMPRESSION: Findings suggestive of a mild degree of CHF with left basilar atelectasis and/or infiltrate with blunting of both costophrenic angles. Electronically Signed: Manny Valle, at 14:47 EST , Service support , Emergency Department Course and Treatment: Patient has rested comfortably while in the ER. He was given a dose of Zofran IV and has not vomited. Treatment Plan: Patient was discussed with Dr. Toscano. He feels comfortable taking him back to the TCU. Disposition: Discharged back to the TCU in stable condition. Impression: 1. Nausea. 2. Chronic renal sufficiency. 3. Abnormal troponin, chronic. This note was generated with TransEnterixation software. It may contain incorrect words, spelling, and punctuation that were not noted in review of the chart prior to signing ED Disposition - Plan for ED Patient: Instructions: ED Vomiting (Adult) Prescriptions: Ondansetron [Zofran Odt] 4 mg PO Q8H PRN PRN #10 tablet PRN Reason: Nausea
[2020-09-24 14:23] LABS: Pathologist Review Reviewed
== END 2020-09-21 18:40 | disposition home or self-care (01) ==
LOC: ED 14:07
PROVIDERS: Emergency Provider Emergency Medicine; PCP Family Medicine
DX: R11.0 Nausea (principal); I25.10 Atherosclerotic heart disease of native coronary artery without angina pectoris; I10 Essential (primary) hypertension; I48.91 Unspecified atrial fibrillation; Z79.82 Long term (current) use of aspirin; Z85.46 Personal history of malignant neoplasm of prostate; Z79.899 Other long term (current) drug therapy
CPT/HCPCS: 71045; 80053; 80162; 81001; 84484; 85025; 87426; 93005; 96374; 96375; 99284; P9612; A4216; J2405

== ENCOUNTER 2020-10-05 12:48 | Emergency (ER) | payer MEDICARE, SELFPAY ==
[2020-09-21 12:40] VITALS: BMI 23.3
[2020-10-05 12:50] VITALS: BP 117/62; PULSE 88; RESP 20; TEMP 35.9; O2SAT 99; BMI 20.2
--- NOTE | 2020-10-05 13:17 | EKG12_ITS ---
Test Reason : WEAKNESS Blood Pressure : / mmHG Vent. Rate : 072 BPM Atrial Rate : 097 BPM P-R Int : 000 ms QRS Dur : 128 ms QT Int : 402 ms P-R-T Axes : 000 -05 181 degrees QTc Int : 440 ms Atrial fibrillation Left bundle branch block Abnormal ECG Confirmed by CRYS MONTOYA, MELI ([id number]), editor farm journal JR SEVERINO ([id number]) on 10/10/2020 9:51:25 A M Referred By: FILIBERTO Confirmed By:JUMA SPANGLER MD
--- NOTE | 2020-10-05 13:19 | ED.DCSUM_ITS ---
History of Present Illness Chief Complaint: Weakness Informant: Patient Current Severity: Mild Maximum Severity: Mild Narrative: Patient sent in by home visiting nurse secondary to blue nailbeds. Patient states he feels very tired and wants to sleep all the time, otherwise has no complaints. He does have some shortness of breath with exertion which he states is chronic and not really changed from his baseline. He denies chest pain or abdominal pain. - Past Medical History (1) Anxiety Status: Chronic (2) Atrial fibrillation Status: Chronic (3) Chronic kidney disease Status: Chronic (4) Chronic systolic congestive heart failure Status: Chronic (5) Coronary artery disease Status: Chronic (6) Depression Status: Chronic (7) Diabetes mellitus Status: Chronic (8) H/O coronary artery bypass surgery Status: Chronic Comment: CABG x 4: COLES-LAD, SVG-D1, SVG to proximal end of SVG to diagonal going to OM 2, and SVG-RPDA 10/30/16 (9) Hyperlipidemia Status: Chronic (10) Hypertension Status: Chronic (11) Ischemic cardiomyopathy Status: Chronic (12) Persistent atrial fibrillation Status: Chronic Past Medical History - Allergies and Home Meds Allergies/Adverse Reactions: Allergies spironolactone Allergy (Verified 09/26/20 08:00) severe weakness lisinopril Adverse Reaction (Mild, Verified 09/26/20 08:00) Dry cough amiodarone Adverse Reaction (Verified 09/26/20 08:00) toxicity Primary Care Physician: Abdoulaye Brock MD [Primary Care Provider] - Prior records reviewed: Yes Surgical History: coronary bypass surgery - x 4., pacemaker implantation, - - Prostatectomy, cardioversion, oral surgery. Smoking Status: Never smoker - Family History Paternal Family History: Family History (Last Reviewed 09/26/20 @ 08:00 by Nilsa Cole) Sister Diabetes Sister Colon cancer Diabetes CVA (cerebral vascular accident) Sister Diabetes Brother Heart disease Diabetes Family History: Reports: - - Patient denies any market maternal or paternal family history including heart disease, diabetes, cancer. Maternal Family History: Family History (Last Reviewed 09/26/20 @ 08:00 by Nilsa Cole) Sister Diabetes Sister Colon cancer Diabetes CVA (cerebral vascular accident) Sister Diabetes Brother Heart disease Diabetes Family History: Reports: - - Patient denies any market maternal or paternal family history including heart disease, diabetes, cancer. Sibling Family History: Family History (Last Reviewed 09/26/20 @ 08:00 by Nilsa Cole) Sister Diabetes Sister Colon cancer Diabetes CVA (cerebral vascular accident) Sister Diabetes Brother Heart disease Diabetes Family History: Reports: - - Patient has siblings with diabetes, heart disease, strokes, colon cancer. Review of Systems General: Denies: Chills, Fever Eyes: Denies: Visual changes - bilaterally ENT: Denies: Bilateral ear pain Cardiovascular: Denies: Chest pain Respiratory: Reports: Dyspnea. Denies: Cough Gastrointestinal: Denies: Abdominal pain, Nausea, Vomiting Musculoskeletal: Denies: Swelling, Extremity Pain Neurological: Denies: Headache Hematologic: Denies: Easy bruising, Easy bleeding Allergy: Denies: Uticaria Physical Exam Vital Signs/Narrative: Vital Signs Temp Pulse Resp BP Pulse Ox 10/05/20 12:50 96.7 F L 88 20 H 117/62 99 Inital Vital Signs reviewed: Yes General: Well nourished, Well developed Head: Normocephalic ENT: Moist mucous membranes Neck: Supple Cardiovascular: Regular rate, Regular rhythm Respiratory: No distress, CTA bilaterally Abdomen: Soft, Nontender, Normal bowel sounds Extremities: - - Left hand is cold with blue tinge noted to the nails. He has a strong radial pulse. Right hand is wrapped in a warm blanket and skin coloration is normal. Full range of motion without difficulty. Neurological: Alert, Oriented x3 Psychological: Normal affect Diagnostic/Tx/Re-eval Chest X-Ray - ED: 1 View, Read by ED Physician, Left Effusion - Improved when compared to prior study Impressions Chest X-Ray 10/05/20 13:55 IMPRESSION: No change from 09/21/2020. Electronically Signed: Walter Ellis MD at 14:14 EST Tel , Service support , 10/05/20 13:55 Chest 1 View (Portable) [RAD] Stat Laboratory Results 10/05/20 10/05/20 10/05/20 13:40 13:40 13:40 WBC 11.8 H RBC 5.23 Hgb 15.5 Hct 50.5 MCV 96.6 H MCH 29.6 MCHC 30.7 L RDW Std Deviation 54.0 H RDW Coeff of Shashank 15.5 H Plt Count 199 MPV 11.8 Immature Gran % (Auto) 0.300 Neut % (Auto) 77.9 H Lymph % (Auto) 12.9 L [place] % (Auto) 8.2 Eos % (Auto) 0.1 Baso % (Auto) 0.6 Absolute Neuts (auto) 9.2 H Absolute Lymphs (auto) 1.52 Nucleated RBC % 0 Sodium Cancelled Potassium Cancelled Chloride Cancelled Carbon Dioxide Cancelled Anion Gap Cancelled BUN Cancelled Creatinine Cancelled Estim Creat Clear Calc Cancelled Est GFR (MDRD) Af Amer Cancelled Est GFR (MDRD) Non-Af Cancelled BUN/Creatinine Ratio Cancelled Glucose Cancelled Calcium Cancelled Digoxin Cancelled 10/05/20 10/05/20 14:30 14:30 WBC RBC Hgb Hct MCV MCH MCHC RDW Std Deviation RDW Coeff of Shashank Plt Count MPV Immature Gran % (Auto) Neut % (Auto) Lymph % (Auto) [place] % (Auto) Eos % (Auto) Baso % (Auto) Absolute Neuts (auto) Absolute Lymphs (auto) Nucleated RBC % Sodium 141 Potassium 4.3 Chloride 101 Carbon Dioxide 35.0 H Anion Gap 5 BUN 33 H Creatinine 1.85 H Estim Creat Clear Calc 27.00 Est GFR (MDRD) Af Amer 45 L Est GFR (MDRD) Non-Af 37 L BUN/Creatinine Ratio 17.8 Glucose 235 H Calcium 9.2 Digoxin 2.61 H* - EKG Initial EKG Interpretation: Atrial Fibrillation - Atrial fibrillation at 72 bpm. Left bundle branch block noted. - Medical Decision Making Patient's vital signs have maintained stable here. After placing the patient's hands in warm blankets coloration to the fingers are normal. Pulse ox has been stable in the 90s. Patient's labs are reviewed with him. He has chronic renal insufficiency, unchanged from baseline. His digoxin level is slightly elevated at 2.61. I recommended he hold his digoxin for the next 2 days and have his level rechecked on Thursday. Patient is still on metoprolol to help with rate control. This will be discussed with the patient's son when he comes to be the patient up as well. He is given return instructions. ED Disposition - Plan for ED Patient: Disposition: Home or Assisted Living Diagnosis: Elevated digoxin level Instructions: ED Weakness (Uncertain Cause), Taking Digoxin Referrals: Abdoulaye Brock MD [Primary Care Provider] - Jason Lemus MD [STAFF PHYSICIAN] - Additional Instructions: As discussed, your Digoxin level is slightly elevated today. Please hold your Digoxin for the next 2 days and have your Digoxin level rechecked on Thursday. Please return for any concerns.
[2020-10-05 13:48] VITALS: BP 131/67; PULSE 72; RESP 18; O2SAT 98
[2020-10-05 13:52] LABS: Absolute Lymphocyte Count 1.52 X10^3/uL (0.83-4.51); Absolute Neutrophil Count 9.2 X10^3/uL (2.0-7.7); Basophil# 0.07 X10^3/uL; Basophil% 0.6 % (0-1); Eosinophil# 0.01 X10^3/uL; Eosinophils% 0.1 % (0-5); Hematocrit 50.5 % (40-54); Hemoglobin 15.5 g/dL (13.0-16.5); Lymphocyte # 1.52 X10^3/ul (4.0); Lymphocyte % 12.9 % (19-41); Mean Corp Hgb Conc 30.7 g/dL (32-36); Mean Corpuscular Hgb 29.6 pg (27.0-32.0); Mean Corpuscular Volume 96.6 fL (80-94); Mean Platelet Vol. 11.8 fl (6.2-12.0); Monocyte# 0.97 X10^3/uL; Monocyte% 8.2 % (0-10); NRBC Flagged by Analyzer 0 % (0-5); Neutrophil # 9.16 X10^3/uL (2.7-7.7); Neutrophil % 77.9 % (47-70); Platelet Count 199 K/mm3 (150-450); RBC Distribution Width CV 15.5 % (11.6-14.6); Red Blood Count 5.23 M/mm3 (4.6-6.2); White Blood Count 11.8 K/mm3 (4.4-11.0)
--- NOTE | 2020-10-05 13:55 | RAD_ITS ---
STUDY: X-RAY CHEST REASON FOR EXAM: Male, 80 years old. BLUE NAIL BEDS, TIRED, RECENT PACEMAKER PLACEMENT TECHNIQUE: Single AP portable view of the chest. COMPARISON: 09/21/2020 FINDINGS: Status post median sternotomy. Insertable quality assurance monitor final. No change in the alveolar opacity in the lower left lung consistent with left lower lobe pneumonia or atelectasis. There is no demonstrated pleural abnormality. There is moderate cardiac enlargement. Normal mediastinum and heaven. Normal visualized pulmonary arteries. Normal visualized aortic arch and descending thoracic aorta. Normal visualized thoracic spine. Normal visualized ribs, clavicles, and shoulders. There is no demonstrated abnormality of the visualized soft tissue structures of the upper abdomen. RAD/Chest 1 View (Portable) IMPRESSION: No change from 09/21/2020. Electronically Signed: Walter Ellis MD at 14:14 EST Tel , Service support ,
[2020-10-05 14:53] LABS: Anion Gap 5 (5-15); BUN 33 mg/dL (7-18); BUN/Creat Ratio 17.8 RATIO (10-20); Calcium,Total 9.2 mg/dL (8.5-10.1); Chloride 101 mmol/L (98-107); Creatinine, Serum 1.85 mg/dL (0.70-1.30); EST Glomerular Filtration Rate 37 mL/min (>60); Est Glom Filt Rate - Afr Amer 45 mL/min (>60); Glucose 235 mg/dL (74-106); Potassium 4.3 mmol/L (3.5-5.1); Sodium Level 141 mmol/L (136-145)
[2020-10-05 15:16] VITALS: BP 123/77; PULSE 68; RESP 18; O2SAT 100
[2020-10-05 16:10] LABS: Digoxin Level 2.61 ng/mL (0.80-2.00)
[2020-10-05 16:57] VITALS: BP 135/60; PULSE 89; RESP 14; O2SAT 97
== END 2020-10-05 16:58 | disposition home or self-care (01) ==
PROVIDERS: Emergency Provider Emergency Medicine; PCP Family Medicine
DX: R53.1 Weakness (principal); I25.10 Atherosclerotic heart disease of native coronary artery without angina pectoris; Z95.1 Presence of aortocoronary bypass graft; Z95.0 Presence of cardiac pacemaker
CPT/HCPCS: 36415; 71045; 80048; 80162; 85025; 93005; 99285; A4216

== ENCOUNTER 2020-10-08 15:05 | Outpatient (RCR) | payer MEDICARE, SELFPAY ==
[2020-10-09 13:58] LABS: Digoxin Level 1.79 ng/mL (0.80-2.00)
== END 2020-10-08 18:00 | disposition home or self-care (01) ==
LOC: HHLAB 15:05
PROVIDERS: PCP Family Medicine; Referring Provider Family Medicine; Visit Provider Family Medicine
DX: R89.2 Abnormal level of other drugs, medicaments and biological substances in specimens from other organs, systems and tissues (principal); I13.0 Hypertensive heart and chronic kidney disease with heart failure and stage 1 through stage 4 chronic kidney disease, or unspecified chronic kidney disease; I50.22 Chronic systolic (congestive) heart failure; E11.22 Type 2 diabetes mellitus with diabetic chronic kidney disease; N18.9 Chronic kidney disease, unspecified
CPT/HCPCS: 80162

== ENCOUNTER → 2020-10-09 16:55 | Outpatient (CLI) | payer MEDICARE, SELFPAY ==
[2020-10-09 15:44] VITALS: BMI 20.5
[2020-10-09 17:31] LABS: Absolute Lymphocyte Count 1.34 X10^3/uL (0.83-4.51); Absolute Neutrophil Count 5.9 X10^3/uL (2.0-7.7); Basophil# 0.05 X10^3/uL; Basophil% 0.6 % (0-1); Hematocrit 45.3 % (40-54); Hemoglobin 13.7 g/dL (13.0-16.5); Lymphocyte # 1.34 X10^3/ul (4.0); Lymphocyte % 17.1 % (19-41); Mean Corp Hgb Conc 30.2 g/dL (32-36); Mean Corpuscular Hgb 29.1 pg (27.0-32.0); Mean Corpuscular Volume 96.2 fL (80-94); Monocyte# 0.57 X10^3/uL; Monocyte% 7.3 % (0-10); NRBC Flagged by Analyzer 0 % (0-5); Neutrophil # 5.86 X10^3/uL (2.7-7.7); Neutrophil % 74.6 % (47-70); Platelet Count 189 K/mm3 (150-450); RBC Distribution Width CV 15.4 % (11.6-14.6); RBC Distribution Width SD 53.4 fl (35.1-43.9); Red Blood Count 4.71 M/mm3 (4.6-6.2); White Blood Count 7.9 K/mm3 (4.4-11.0)
[2020-10-09 18:09] LABS: ALB/GLOB Ratio 0.8 RATIO (0.9-2.4); AST(SGOT) 25 U/L (15-37); Alanine Aminotransfer ALT/SGPT 27 U/L (16-61); Albumin, Serum 2.9 g/dL (3.2-5.0); Alkaline Phosphatase 110 U/L (45-117); Anion Gap 5 (5-15); BUN 40 mg/dL (7-18); BUN/Creat Ratio 19.5 RATIO (10-20); Calcium,Total 9.3 mg/dL (8.5-10.1); Chloride 101 mmol/L (98-107); Creatinine, Serum 2.05 mg/dL (0.70-1.30); EST Glomerular Filtration Rate 33 mL/min (>60); Est Glom Filt Rate - Afr Amer 40 mL/min (>60); Globulin 3.7 g/dL (2.2-4.2); Glucose 174 mg/dL (74-106); Potassium 4.2 mmol/L (3.5-5.1); Protein, Total 6.6 g/dL (6.4-8.2); Sodium Level 138 mmol/L (136-145)
== END ==
PROVIDERS: PCP Family Medicine; Visit Provider Nurse Practitioner Family
DX: I11.0 Hypertensive heart disease with heart failure (principal); I50.23 Acute on chronic systolic (congestive) heart failure; R06.00 Dyspnea, unspecified; I48.0 Paroxysmal atrial fibrillation; I25.119 Atherosclerotic heart disease of native coronary artery with unspecified angina pectoris; I25.5 Ischemic cardiomyopathy; Z95.1 Presence of aortocoronary bypass graft; Z95.0 Presence of cardiac pacemaker
CPT/HCPCS: 36415; 80053; 83880; 85025

== ENCOUNTER 2020-10-14 09:57 | Emergency (ER) | payer MEDICARE, SELFPAY ==
[2020-10-09 15:44] VITALS: BMI 20.5
[2020-10-14 09:58] VITALS: BP 96/84; PULSE 95; RESP 29; TEMP 36.5; BMI 20.7
--- NOTE | 2020-10-14 10:09 | EKG12_ITS ---
Test Reason : CP Blood Pressure : / mmHG Vent. Rate : 101 BPM Atrial Rate : 101 BPM P-R Int : 000 ms QRS Dur : 130 ms QT Int : 392 ms P-R-T Axes : 000 022 225 degrees QTc Int : 508 ms Suspect unspecified pacemaker failure Atrial fibrillation with rapid ventricular response with premature ventricular or aberrantly conducte d complexes Non-specific intra-ventricular conduction block Cannot rule out Anterior infarct , age undetermined T wave abnormality, consider inferolateral ischemia Abnormal ECG Confirmed by CRYS MONTOYA, MELI ([id number]), managing editor JR SEVERINO ([id number]) on 10/18/2020 10:15:10 AM Referred By: Confirmed By:JUMA SPANGLER MD
--- NOTE | 2020-10-14 10:09 | RAD_ITS ---
STUDY: X-RAY CHEST REASON FOR EXAM: Male, 80 years old. Dyspnoea TECHNIQUE: Single AP portable view of the chest. COMPARISON: 10/05/2020 FINDINGS: Hyperinflated lungs. Left basilar infiltrate markedly improved since the previous exam. Residual small left pleural effusion. Sternal cerclage wires and vascular clips are present from a prior sternotomy and coronary artery bypass graft procedure (CABG). Normal mediastinum and heaven. Normal visualized pulmonary arteries. There is atherosclerotic calcification of the aortic arch with tortuosity. Stable osseous structures. There is no demonstrated abnormality of the visualized soft tissue structures of the upper abdomen. RAD/Chest 1 View (Portable) IMPRESSION: Mildly improved left basilar infiltrate. Electronically Signed: Delmer Hernadez MD at 10:42 EST Tel , Service support ,
--- NOTE | 2020-10-14 10:15 | ED.VIS.GEN ---
History of Present Illness Informant: Patient, Family, Patient Support Partner Onset: Weeks - 2 weeks Context: Gradual Onset Timing: Continuous Quality: Generalized weakness Location: generalized Current Severity: Severe Maximum Severity: Severe Worsened by: Movement Relieved by: Nothing Associated Symptoms: Nausea and black stool Narrative: 80-year-old male history of atrial fibrillation and congestive heart failure presents to the emergency department with generalized weakness. Is really been worsening for the last 2 weeks. He was seen here about 9 days ago and sent home but since that time is progressively felt more weak. He has been having black stool every time he has a bowel movement for the last 2 days and is also been feeling lightheaded. He states today he began to feel short of breath as well which prompted him to call EMS for emergency department evaluation. He denies chest pain or fever. He denies vomiting hematemesis or coffee-ground emesis. He denies any hematochezia. He has some very mild epigastric pain and nausea. He denies any contacts of anyone diagnosed with COVID-19. Denies leg pain or swelling or hemoptysis. Prior similar symptoms: Yes Recent Illness/Hospitalization: Yes <Petar Davidson - Last Filed: 10/14/20 12:22> <Javier Del Rio - Last Filed: 10/14/20 14:11> Chief Complaint: General Illness Past Medical History Prior records reviewed: Yes Past Medical History: - - Coronary artery disease, CHF, atrial fibrillation Surgical History: coronary bypass surgery - x 4., pacemaker implantation, - - Prostatectomy, cardioversion, oral surgery. Lives: With Family Smoking Status: Never smoker Alcohol: None Drugs: None - Family History Paternal Family History: Family History (Last Reviewed 09/26/20 @ 08:00 by Nilsa Cole) Sister Diabetes Sister Colon cancer Diabetes CVA (cerebral vascular accident) Sister Diabetes Brother Heart disease Diabetes Family History: Reports: - - Patient denies any market maternal or paternal family history including heart disease, diabetes, cancer. Maternal Family History: Family History (Last Reviewed 09/26/20 @ 08:00 by Nilsa Cloe) Sister Diabetes Sister Colon cancer Diabetes CVA (cerebral vascular accident) Sister Diabetes Brother Heart disease Diabetes Family History: Reports: - - Patient denies any market maternal or paternal family history including heart disease, diabetes, cancer. Sibling Family History: Family History (Last Reviewed 09/26/20 @ 08:00 by Nilsa Cole) Sister Diabetes Sister Colon cancer Diabetes CVA (cerebral vascular accident) Sister Diabetes Brother Heart disease Diabetes Family History: Reports: - - Patient has siblings with diabetes, heart disease, strokes, colon cancer. <Petar Davidson - Last Filed: 10/14/20 12:22> - Family History Paternal Family History: Family History (Last Reviewed 09/26/20 @ 08:00 by Nilsa Cole) Sister Diabetes Sister Colon cancer Diabetes CVA (cerebral vascular accident) Sister Diabetes Brother Heart disease Diabetes Maternal Family History: Family History (Last Reviewed 09/26/20 @ 08:00 by Nilsa Cole) Sister Diabetes Sister Colon cancer Diabetes CVA (cerebral vascular accident) Sister Diabetes Brother Heart disease Diabetes Sibling Family History: Family History (Last Reviewed 09/26/20 @ 08:00 by Nilsa Cole) Sister Diabetes Sister Colon cancer Diabetes CVA (cerebral vascular accident) Sister Diabetes Brother Heart disease Diabetes <Javier Del Rio - Last Filed: 10/14/20 14:11> - Allergies and Home Meds Allergies/Adverse Reactions: Allergies spironolactone Allergy (Verified 10/14/20 09:58) severe weakness lisinopril Adverse Reaction (Mild, Verified 10/14/20 09:58) Dry cough amiodarone Adverse Reaction (Verified 10/14/20 09:58) toxicity Primary Care Physician: Abdoulaye Brock MD [Primary Care Provider] - Review of Systems General: Reports: Malaise. Denies: Chills, Fever, Sweats Eyes: Denies: Visual changes - bilaterally, Diplopia ENT: Denies: Rhinorrhea, Sore throat Cardiovascular: Denies: Chest pain, Palpitations, Heart racing Respiratory: Reports: Dyspnea, Dyspnea on exertion. Denies: Cough, Sputum, Orthopnea, Paroxysmal nocturnal dyspnea Gastrointestinal: Reports: Nausea, Melena. Denies: Abdominal pain, Vomiting, Diarrhea, Constipation, Hematochezia Genitourinary: Denies: Dysuria, Hematuria, Frequency Musculoskeletal: Denies: Myalgias, Back pain, Extremity Pain Skin: Denies: Rash, Wounds Neurological: Denies: Headache, Weakness, Parasthesia, Numbness Hematologic: Reports: Easy bruising. Denies: Easy bleeding <Petar Davidson - Last Filed: 10/14/20 12:22> Physical Exam Vital Signs/Narrative: Vital Signs Temp Pulse Resp BP 10/14/20 09:58 97.7 F L 95 29 H 96/84 H Inital Vital Signs reviewed: Yes General: Well nourished, Well developed, No Acute Distress Head: Normocephalic, Atraumatic Eyes: Perrl, EOMI ENT: Moist mucous membranes, No rhinorrhea Neck: Supple, Nontender Cardiovascular: Regular rate, Regular rhythm, No murmurs Respiratory: No distress, CTA bilaterally, Chest nontender Abdomen: Soft, Nontender, Nondistended, Normal bowel sounds Back: Nontender, Normal Inspection Extremities: Nontender, No edema Skin: No rash, Pallor Neurological: Alert, Oriented x3, Cranial nerves II-XII grossly intact, Normal Strength, Normal Sensation Psychological: Normal affect, Normal Mood <Petar Davidson - Last Filed: 10/14/20 12:22> Vital Signs/Narrative: Vital Signs Pulse Resp BP Pulse Ox 10/14/20 13:55 90 18 110/51 L 100 10/14/20 12:56 109 H 22 H 100/52 L 97 10/14/20 12:04 122 H 37 H 101/65 <Javier Del Rio - Last Filed: 10/14/20 14:11> Diagnostic/Tx/Re-eval Impressions Chest X-Ray 10/14/20 10:09 IMPRESSION: Mildly improved left basilar infiltrate. Electronically Signed: Delmer Hernadez MD at 10:42 EST Tel , Service support , 10/14/20 10:09 Chest 1 View (Portable) [RAD] Stat 10/14/20 10:15 Mucosa - Nose SARS-CoV-2 Antigen (Rapid) - Final Laboratory Results 10/14/20 10/14/20 10/14/20 10:15 10:15 10:15 WBC 8.5 RBC 3.18 L Hgb 9.4 L Hct 30.3 L MCV 95.3 H MCH 29.6 MCHC 31.0 L RDW Std Deviation 53.1 H RDW Coeff of Shashank 15.5 H Plt Count 190 MPV 12.2 H Immature Gran % (Auto) 0.600 Neut % (Auto) 73.1 H Lymph % (Auto) 17.8 L [place] % (Auto) 8.1 Eos % (Auto) 0.0 Baso % (Auto) 0.4 Absolute Neuts (auto) 6.2 Absolute Lymphs (auto) 1.51 Nucleated RBC % 0 PT 20.5 H INR 1.8 APTT 33.0 Sodium 142 Potassium 3.4 L Chloride 101 Carbon Dioxide 33.0 H Anion Gap 8 BUN 82 H Creatinine 1.73 H Estim Creat Clear Calc 29.61 Est GFR (MDRD) Af Amer 49 L Est GFR (MDRD) Non-Af 40 L BUN/Creatinine Ratio 47.4 H Glucose 119 H Lactic Acid Calcium 8.8 Total Bilirubin 1.10 H AST 20 ALT 21 Alkaline Phosphatase 81 Troponin I 0.407 H B-Natriuretic Peptide Total Protein 6.1 L Albumin 2.8 L Globulin 3.3 Albumin/Globulin Ratio 0.8 L Lipase 91 Digoxin Blood Type Antibody Screen Crossmatch 10/14/20 10/14/20 10/14/20 10:15 10:15 10:15 WBC RBC Hgb Hct MCV MCH MCHC RDW Std Deviation RDW Coeff of Shashank Plt Count MPV Immature Gran % (Auto) Neut % (Auto) Lymph % (Auto) [place] % (Auto) Eos % (Auto) Baso % (Auto) Absolute Neuts (auto) Absolute Lymphs (auto) Nucleated RBC % PT INR APTT Sodium Potassium Chloride Carbon Dioxide Anion Gap BUN Creatinine Estim Creat Clear Calc Est GFR (MDRD) Af Amer Est GFR (MDRD) Non-Af BUN/Creatinine Ratio Glucose Lactic Acid 2.4 H* Calcium Total Bilirubin AST ALT Alkaline Phosphatase Troponin I B-Natriuretic Peptide 1274.7 H Total Protein Albumin Globulin Albumin/Globulin Ratio Lipase Digoxin Blood Type A NEGATIVE Antibody Screen NEGATIVE Crossmatch 10/14/20 10/14/20 10:15 10:15 WBC RBC Hgb Hct MCV MCH MCHC RDW Std Deviation RDW Coeff of Shashank Plt Count MPV Immature Gran % (Auto) Neut % (Auto) Lymph % (Auto) [place] % (Auto) Eos % (Auto) Baso % (Auto) Absolute Neuts (auto) Absolute Lymphs (auto) Nucleated RBC % PT INR APTT Sodium Potassium Chloride Carbon Dioxide Anion Gap BUN Creatinine Estim Creat Clear Calc Est GFR (MDRD) Af Amer Est GFR (MDRD) Non-Af BUN/Creatinine Ratio Glucose Lactic Acid Calcium Total Bilirubin AST ALT Alkaline Phosphatase Troponin I B-Natriuretic Peptide Total Protein Albumin Globulin Albumin/Globulin Ratio Lipase Digoxin 0.94 Blood Type Antibody Screen Crossmatch See Detail - Medical Decision Making On arrival patient was hypotensive and tachycardic. He has acute black stool and is on anticoagulation. He has a GI bleed. He is given IV fluids. He was given Protonix. He was typed and crossmatched for 2 units. His chest x-ray was unremarkable. Laboratory work-up shows an elevated lactic acid 2.4, hemoglobin is 9 down from 13 5 days ago, BUN is doubled from 40-80. Troponin is indeterminate. He is still hypotensive after liter of fluids due to his history of significant congestive heart failure with an ejection fraction of 30% he was given 2 units of blood. We are unable to take him at this facility. We called [facility] in [place] and none of these facilities have beds for the patient. I spoke with the [facility] transfer line at [facility] and I spoke with Dr. Isidro and Dr. Villafuerte the floor care technician and the hospitalist who agreed the patient would go to the floor at [place] and accepted the patient. - Critical Care Time Critical care time (excluding procedures): 30-74 minutes, Discussing w/Patient &/or Family/Geophysical Drafter, Discussing w/Consultants, Arranging Admission or Transfer, Performing Direct Patient Care at Bedside <Petar Davidson - Last Filed: 10/14/20 12:22> - Medical Decision Making Patient seen and examined. He is in mild distress. He had a significant hemoglobin drop on his lab work. He has been seeing his and having black stools. He is on anticoagulation for his A. fib. We did initially bolus him with IV fluids which she was responsive to. Given his elevated troponin which he does have this chronically he was given a unit of packed red blood cells. No evidence of current active bleeding throughout ED stay. He was also given a dose of Protonix. We did attempt to place the patient in multiple hospitals which were unable to accept him due to bed availability. He eventually was able to be placed with the [facility]. He was agreeable with this plan. <Javier Del Rio - Last Filed: 10/14/20 14:11> ED Disposition <Petar Davidson - Last Filed: 10/14/20 12:22> <Javier Del Rio - Last Filed: 10/14/20 14:11> - Plan for ED Patient: Disposition: Acute Care Hospital - Other Diagnosis: GI bleed, CATE (acute kidney injury), Anemia, blood loss, Elevated troponin, Hypotension Referrals: Abdoulaye Brock MD [Primary Care Provider] -
[2020-10-14] MEDS: 0.9% Normal Saline 1,000 ML 1000 ML IV (10:25)
[2020-10-14 10:29] LABS: Absolute Lymphocyte Count 1.51 X10^3/uL (0.83-4.51); Absolute Neutrophil Count 6.2 X10^3/uL (2.0-7.7); Basophil# 0.03 X10^3/uL; Basophil% 0.4 % (0-1); Hematocrit 30.3 % (40-54); Hemoglobin 9.4 g/dL (13.0-16.5); Lymphocyte # 1.51 X10^3/ul (4.0); Lymphocyte % 17.8 % (19-41); Mean Corpuscular Hgb 29.6 pg (27.0-32.0); Mean Corpuscular Volume 95.3 fL (80-94); Mean Platelet Vol. 12.2 fl (6.2-12.0); Monocyte# 0.69 X10^3/uL; Monocyte% 8.1 % (0-10); NRBC Flagged by Analyzer 0 % (0-5); Neutrophil # 6.19 X10^3/uL (2.7-7.7); Neutrophil % 73.1 % (47-70); Platelet Count 190 K/mm3 (150-450); RBC Distribution Width CV 15.5 % (11.6-14.6); RBC Distribution Width SD 53.1 fl (35.1-43.9); Red Blood Count 3.18 M/mm3 (4.6-6.2); White Blood Count 8.5 K/mm3 (4.4-11.0)
[2020-10-14 10:47] LABS: ALB/GLOB Ratio 0.8 RATIO (0.9-2.4); AST(SGOT) 20 U/L (15-37); Alanine Aminotransfer ALT/SGPT 21 U/L (16-61); Albumin, Serum 2.8 g/dL (3.2-5.0); Alkaline Phosphatase 81 U/L (45-117); Anion Gap 8 (5-15); BUN 82 mg/dL (7-18); BUN/Creat Ratio 47.4 RATIO (10-20); Calcium,Total 8.8 mg/dL (8.5-10.1); Chloride 101 mmol/L (98-107); Creatinine, Serum 1.73 mg/dL (0.70-1.30); EST Glomerular Filtration Rate 40 mL/min (>60); Est Glom Filt Rate - Afr Amer 49 mL/min (>60); Estimated Creatinine Clearance 29.61 ml/min; Globulin 3.3 g/dL (2.2-4.2); Glucose 119 mg/dL (74-106); Lipase 91 U/L (73-393); Potassium 3.4 mmol/L (3.5-5.1); Protein, Total 6.1 g/dL (6.4-8.2); Sodium Level 142 mmol/L (136-145)
[2020-10-14 10:53] LABS: International Normalized Ratio 1.8; Prothrombin Time (Protime)PT. 20.5 SECONDS (11.7-14.9)
[2020-10-14 10:59] LABS: Lactic Acid 2.4 mmol/L (0.4-1.9)
[2020-10-14 11:11] LABS: BNP,B-Type NATRIURETIC PEPTIDE 1274.7 pg/mL (0-100)
[2020-10-14 11:24] LABS: Digoxin Level 0.94 ng/mL (0.80-2.00)
[2020-10-14] MEDS: Ondansetron 4 MG/2 ML Vial IV (11:43)
[2020-10-14 12:04] VITALS: BP 101/65; PULSE 122; RESP 37
[2020-10-14 12:56] VITALS: BP 100/52; PULSE 109; RESP 22; O2SAT 97
[2020-10-14 13:55] VITALS: BP 110/51; PULSE 90; RESP 18; O2SAT 100
[2020-10-14 14:23] LABS: Reflex Lactate? Y
== END 2020-10-14 14:13 | disposition short-term general hospital (02) ==
PROVIDERS: Emergency Provider Physician Assistant Medical; PCP Family Medicine
DX: K92.2 Gastrointestinal hemorrhage, unspecified (principal); N17.9 Acute kidney failure, unspecified; D50.0 Iron deficiency anemia secondary to blood loss (chronic); I95.9 Hypotension, unspecified; I25.10 Atherosclerotic heart disease of native coronary artery without angina pectoris; I48.91 Unspecified atrial fibrillation; I50.9 Heart failure, unspecified; Z95.0 Presence of cardiac pacemaker; Z79.899 Other long term (current) drug therapy; Z79.02 Long term (current) use of antithrombotics/antiplatelets
CPT/HCPCS: 71045; 80053; 80162; 83605; 83690; 83880; 84484; 85025; 85610; 85730; 86850; 86900; 86901; 86920; 86922; 87426; 93005; 96361; 96374; 99285; J7030; A4216; J2405; J3490

== ENCOUNTER 2020-10-19 19:47 | Inpatient (IN) | payer MEDICARE, SELFPAY ==
[2020-10-19] VITALS (12 sets, daily range): BP systolic 62–110; BP diastolic 40–97; PULSE 89–112; RESP 16–22; TEMP 35.8–37.3; O2SAT 91; BMI 21.8
--- NOTE | 2020-10-19 20:01 | EKG12_ITS ---
Test Reason : DYSRHYTHMIA Blood Pressure : / mmHG Vent. Rate : 102 BPM Atrial Rate : 057 BPM P-R Int : 000 ms QRS Dur : 138 ms QT Int : 378 ms P-R-T Axes : 000 007 193 degrees QTc Int : 492 ms Atrial fibrillation with rapid ventricular response Left bundle branch block Abnormal ECG Confirmed by DOMINIQUE MONTOYA, STARLA ([id number]), content editor JR SEVERINO ([id number]) on 10/22/2020 8:57:53 AM Referred By: ABDIRAHMAN Confirmed By:STARLA FOX MD
--- NOTE | 2020-10-19 20:10 | RAD_ITS ---
STUDY: X-RAY CHEST REASON FOR EXAM: Male, 80 years old. C/O WEAKNESS, VERY FATIGUED PER PT. PT WAS DISCHARGED FROM [facility] YESTERDAY and FOR BLEEDING ULCER IN CHEST and quot; PER [facility]. PT HAVING HYPOTENSION BP 89/46. TECHNIQUE: Single AP portable view of the chest. COMPARISON: October 14, 2020 FINDINGS: Mild to moderate pulmonary vascular congestion and edema is present bilaterally with small bilateral pleural effusions. The heart is mildly enlarged Sternal cerclage wires and vascular clips are present from a prior sternotomy and coronary artery bypass graft procedure (CABG). Stable mediastinal contours and osseous structures. There is no demonstrated abnormality of the visualized soft tissue structures of the upper abdomen. RAD/Chest 1 View (Portable) IMPRESSION: Mild to moderate CHF Electronically Signed: Vargas Johnson MD at 21:26 EST , Service support ,
[2020-10-19 20:27] LABS: Absolute Lymphocyte Count 0.95 X10^3/uL (0.83-4.51); Absolute Neutrophil Count 7.8 X10^3/uL (2.0-7.7); Basophil# 0.03 X10^3/uL; Basophil% 0.3 % (0-1); Hematocrit 29.6 % (40-54); Hemoglobin 9.1 g/dL (13.0-16.5); Lymphocyte # 0.95 X10^3/ul (4.0); Lymphocyte % 10.1 % (19-41); Mean Corp Hgb Conc 30.7 g/dL (32-36); Mean Corpuscular Hgb 29.4 pg (27.0-32.0); Mean Corpuscular Volume 95.5 fL (80-94); Mean Platelet Vol. 11.4 fl (6.2-12.0); Monocyte# 0.63 X10^3/uL; Monocyte% 6.7 % (0-10); NRBC Flagged by Analyzer 0 % (0-5); Neutrophil % 82.5 % (47-70); Platelet Count 256 K/mm3 (150-450); RBC Distribution Width CV 16.3 % (11.6-14.6); White Blood Count 9.5 K/mm3 (4.4-11.0)
[2020-10-19 20:38] LABS: International Normalized Ratio 1.3; Prothrombin Time (Protime)PT. 15.2 SECONDS (11.7-14.9)
[2020-10-19 20:39] LABS: Partial Thromboplast Time 29.7 Seconds (24.1-36.2)
[2020-10-19 20:41] LABS: ALB/GLOB Ratio 0.7 RATIO (0.9-2.4); AST(SGOT) 13 U/L (15-37); Alanine Aminotransfer ALT/SGPT 19 U/L (16-61); Albumin, Serum 2.5 g/dL (3.2-5.0); Alkaline Phosphatase 80 U/L (45-117); Anion Gap 4 (5-15); BUN 28 mg/dL (7-18); BUN/Creat Ratio 16.4 RATIO (10-20); Calcium,Total 8.5 mg/dL (8.5-10.1); Chloride 107 mmol/L (98-107); Creatinine, Serum 1.71 mg/dL (0.70-1.30); EST Glomerular Filtration Rate 41 mL/min (>60); Est Glom Filt Rate - Afr Amer 49 mL/min (>60); Estimated Creatinine Clearance 31.56 ml/min; Globulin 3.4 g/dL (2.2-4.2); Glucose 152 mg/dL (74-106); Potassium 5.3 mmol/L (3.5-5.1); Protein, Total 5.9 g/dL (6.4-8.2); Sodium Level 139 mmol/L (136-145)
[2020-10-19 20:59] LABS: Lactic Acid 3.2 mmol/L (0.4-1.9)
--- NOTE | 2020-10-19 21:40 | HP.PCM_ITS ---
Problem List (1) Acute respiratory failure with hypoxia Status: Acute (2) Hypotension Status: Acute (3) Atrial fibrillation with RVR Status: Acute (4) Acute on chronic systolic congestive heart failure Status: Acute (5) Coronary artery disease Status: Chronic Qualifiers: Coronary Disease-Associated Artery/Lesion type: unspecified vessel or lesion type [place] vs. transplanted heart: unspecified whether [place] or transplanted heart (6) Chronic kidney disease Status: Chronic Qualifiers: Chronic kidney disease stage: stage 3 (moderate) Chronic kidney disease stage 3 subtype: unspecified whether 3a or 3b Qualified Code(s): N18.30 - Chronic kidney disease, stage 3 unspecified (7) Hypertension Status: Chronic Qualifiers: Hypertension type: essential hypertension Qualified Code(s): I10 - Essential (primary) hypertension (8) Diabetes mellitus Status: Chronic Qualifiers: Diabetes mellitus type: type 2 Diabetes mellitus penitentiary insulin use: without emt intermediate use Diabetes mellitus complication status: with other specified complication Qualified Code(s): E11.69 - Type 2 diabetes mellitus with other specified complication (9) Prostate cancer Status: Chronic (10) Depression Status: Chronic Qualifiers: Depression Type: unspecified (11) Anxiety Status: Chronic (12) Persistent atrial fibrillation Status: Chronic (13) H/O coronary artery bypass surgery Status: Chronic Comment: CABG x 4: COLES-LAD, SVG-D1, SVG to proximal end of SVG to diagonal going to OM 2, and SVG-RPDA 10/30/16 (14) Ischemic cardiomyopathy Status: Chronic (15) Essential (primary) hypertension Status: Chronic (16) Hyperlipidemia Status: Chronic Qualifiers: Hyperlipidemia type: unspecified Qualified Code(s): E78.5 - Hyperlipidemia, unspecified History of Present Illness Date of Admission: 10/19/20 Chief Complaint: Malaise, ill appearing, recent GI upper bleed, d/c 10/18/20 The patient is a 80 y/o M w/ PMHx: PAF, CAD s/p CABG x 4, Chronic Systolic/Diastolic CHF, Ischemic Cardiomyopathy, HTN, HLD, Hx prostate CA s/p prostatectomy, GERD w/ Barretts esophagus, Diabetes mellitus type II, CKD stage III, Anxiety and Depression, CKD stage III who presents to the [facility] ED on 10/19/20 with history of recent [facility] discharge 10/18/20 with treatment/evaluation for upper GI bleed with history of tarry stools for approximately 4 days prior to the presentation at that facility with per records possibly 1 unit PRBC administration and upper endoscopy but unclear specific interventions or findings with discharge on high-dose twice daily PPI x8 weeks with allowance of resumption of patient antiplatelet therapy who now presents with significant fatigue, malaise, increasing respiratory rate and sensation of dyspnea with specific statement to ED physician upon arrival I feel like I am going to . He denied any recent fever, chills, nausea, emesis, abdominal pain, chest pain, cough, dyspnea, alteration sense of taste or smell. Work-up in the ED T 97.4, heart rate 105, BP 82/55, respiratory rate 16, 81% on 3 L nasal cannula, CBC with WC 9.5, hemoglobin 9.1 most recently noted hemoglobin 13.7 on 10/09/2020, platelet 256 with left shift, coags with PT 15.2, INR 1.3, PTT 29.7, CMP with potassium 5.3, BUN/creatinine 28/1.71, glucose 152, lactic acid 3.2, BNP 1612, troponin pending, digoxin 1.0, blood culture x2 pending per ED, type and screen with a negative blood type antibody screen negative, chest x-ray with mild to moderate CHF evidence, EKG paced, urinalysis with specific gravity 1.020, protein 100, occult blood 25, leukocyte esterase 100, negative nitrite, urine WBCs 10-25 with no urine bacteria, urine culture pending per ED, troponin 0 0.245 noted to be chronically elevated, improved from prior,. In the ED ED physician discussed case with patient recovery room rn, Dr. Lemus and patient administered 250 cc bolus and placed on 75 cc maintenance fluid given complicated presentation and possible underlying sepsis. Patient with ongoing persistent hypotension therefore eventually norepinephrine initiated and IV Lasix 40 mg x 1 planned per discussion with ED physician. Patient ministered an additional 250 cc bolus prior to pressor therapy. Past Medical History Past Medical History (Chronic Problems): Chronic Problems (Last Reviewed 09/26/20 @ 08:00 by Nilsa Cole) Atrial fibrillation (Chronic) Hypokalemia (Chronic) Coronary artery disease (Chronic) Chronic kidney disease (Chronic) Hypertension (Chronic) Diabetes mellitus (Chronic) Prostate cancer (Chronic) Depression (Chronic) Chronic systolic congestive heart failure (Chronic) Diabetes mellitus type 2 in nonobese (Chronic) Anxiety (Chronic) Persistent atrial fibrillation (Chronic) History of permanent cardiac pacemaker placement (Chronic 08/16/20) VVI 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 Bradycardia (Chronic) Atherosclerosis of coronary artery of [place] heart with angina pectoris (Chronic) History of non-ST elevation myocardial infarction (NSTEMI) (Chronic 05/2017) 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) CABG x 4: COLES-LAD, SVG-D1, SVG to proximal end of SVG to diagonal going to OM 2, and SVG-RPDA 10/30/16 Ischemic cardiomyopathy (Chronic) Secondary pulmonary arterial hypertension (Chronic) Left bundle branch block (LBBB) (Chronic) Essential (primary) hypertension (Chronic) Hyperlipidemia (Chronic) Medical History: Medical History (Last Reviewed 09/26/20 @ 08:00 by Nilsa Cole) Persistent atrial fibrillation (Chronic) I48.19 Elevated troponin (Acute) Onset Date: 08/09/20 R79.89 Atrial fibrillation with rapid ventricular response (Acute) Onset Date: 08/09/20 I48.91 Acute on chronic systolic and diastolic heart failure, NYHA class 2 (Acute) I50.43 Acute kidney injury superimposed on chronic kidney disease (Acute) N17.9, N18.9 Bradycardia (Chronic) R00.1 Hypotension (Acute) I95.9 Atherosclerosis of coronary artery of [place] heart with angina pectoris (Chronic) I25.119 History of non-ST elevation myocardial infarction (NSTEMI) (Chronic) Onset Date: 05/2017 I25.2 Ischemic cardiomyopathy (Chronic) I25.5 Secondary pulmonary arterial hypertension (Chronic) I27.21 Left bundle branch block (LBBB) (Chronic) I44.7 Essential (primary) hypertension (Chronic) I10 Hyperlipidemia (Chronic) E78.5 Barretts esophagus K22.70 Bilateral pleural effusion Onset Date: 11/2019 J90 CKD (chronic kidney disease) N18.9 Prostate cancer C61 Transient ischemic attack G45.9 Type 2 diabetes mellitus E11.9 Acute respiratory failure with hypoxemia (Resolved) J96.01 Dyspnea on exertion (Resolved) R06.09 Nausea and vomiting (Resolved) R11.2 Shortness of breath (Resolved) R06.02 Paroxysmal atrial fibrillation (Inactive) I48.0 Allergies spironolactone Allergy (Verified 10/14/20 09:58) severe weakness lisinopril Adverse Reaction (Mild, Verified 10/14/20 09:58) Dry cough amiodarone Adverse Reaction (Verified 10/14/20 09:58) toxicity Home Medications: Ambulatory Orders Medication Instructions Recorded Acetaminophen [Tylenol] 1,000 mg PO Q6H PRN PRN tab 09/19/20 candesartan 4 mg tablet 4 mg PO DAILY #30 tab 10/18/20 clopidogrel 75 mg tablet 75 mg PO QDAY #30 tab 10/18/20 furosemide 40 mg tablet 60 mg PO DAILY #30 tab 10/18/20 metoprolol succinate 100 mg 100 mg PO DAILY #30 tab 10/18/20 tablet,extended release 24 hr pantoprazole 40 mg tablet,delayed 40 mg PO DAILY #30 tab 10/18/20 release potassium chloride 10 mEq 20 meq PO DAILY #60 cap 10/18/20 capsule,extended release rosuvastatin 10 mg tablet 10 mg PO DAILY #30 tab 10/18/20 sitagliptin 50 mg-metformin 1,000 1 tab PO BID #60 tab 10/18/20 mg tablet Digoxin [Lanoxin] 1.25 mcg PO .twice a week 10/19/20 Surgical History: Surgical History (Last Reviewed 09/26/20 @ 08:00 by Nilsa Cole) History of permanent cardiac pacemaker placement (Chronic) Onset Date: 08/16/20 Z95.0 VVI 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 H/O coronary artery bypass surgery (Chronic) Onset Date: 10/30/16 Z95.1 CABG x 4: COLES-LAD, SVG-D1, SVG to proximal end of SVG to diagonal going to OM 2, and SVG-RPDA 10/30/16 History of cardioversion Onset Date: 03/30/20 Z98.890 History of colonoscopy Z98.890 History of dental surgery Z92.89 History of esophagogastroduodenoscopy (EGD) Z98.890 History of left heart catheterization Onset Date: 08/13/20 Z98.890 [place] 07/23/2018, 08/13/20 History of prostatectomy Z90.79 Surgical History: coronary bypass surgery - x 4., pacemaker implantation, - - Prostatectomy, cardioversion, oral surgery. Psychiatric History: Anxiety, Depression Lives: Spouse/ Significant Other Smoking Status: Never smoker Tobacco Use: Non-smoker Alcohol: None Drugs: None - Denies any market maternal or paternal family history including heart disease, diabetes, cancer, notes they both passed at an advanced age. - *Family History Paternal Family History: Family History (Last Reviewed 09/26/20 @ 08:00 by Nilsa Cole) Sister Diabetes Sister Colon cancer Diabetes CVA (cerebral vascular accident) Sister Diabetes Brother Heart disease Diabetes History Items: - - Patient denies any market maternal or paternal family history including heart disease, diabetes, cancer. Maternal Family History: Family History (Last Reviewed 09/26/20 @ 08:00 by Nilsa Cole) Sister Diabetes Sister Colon cancer Diabetes CVA (cerebral vascular accident) Sister Diabetes Brother Heart disease Diabetes History Items: - - Patient denies any market maternal or paternal family history including heart disease, diabetes, cancer. Sibling Family History: Family History (Last Reviewed 09/26/20 @ 08:00 by Nilsa Cole) Sister Diabetes Sister Colon cancer Diabetes CVA (cerebral vascular accident) Sister Diabetes Brother Heart disease Diabetes History Items: - - Patient has siblings with diabetes, heart disease, strokes, colon cancer. Review of Systems Constitutional: Reports: Anorexia, Malaise, Weakness, Fatigue. Denies: Chills, Fever, Weight Change HEENT: Denies: Head Aches, Sinus Congestion, Sinus Drainage Cardiovascular: Denies: Chest Pain, Palpitations Respiratory: Reports: Shortness of Breath, Shortness of breath at rest, Shortness of breath upon exertion. Denies: Cough, Sputum production Gastrointestinal: Reports: - - Recent black tarry stools with recent GI admission with GI bleed, resolved and none since.. Denies: Abdominal Pain, Nausea, Vomiting Genitourinary: Denies: Dysuria Musculoskeletal: Reports: Joint Pain. Denies: Joint Tenderness Skin: Denies: Rash, Wounds Neurological: Denies: Numbness, Tingling, Focal weakness Psychiatric: Reports: Anxiety, Depression. Denies: Homicidal Ideations, Suicidal Ideations Hematologic/ Lymphatic: Reports: Anemia, Easy Bruising, Easy Bleeding VTE Information - Inpt Only VTE Present on Admission: No VTE Mechan Device Prophylaxis: SCD's VTE Pharm Prophylaxis ordered?: No Reason prophylaxis not ordered:: Medical Contraindication Subjective: Patient seated upright in ED bed, fatigued appearance, increased respiratory rate, oxygenation requirement increasing, BiPAP being placed. Objective: Physical Examination: General: awake, alert, oriented including person, place and recent events, remains cooperative, seated upright in the ED bed, fatigued and ill-appearing, increased respiratory rate, BiPAP in place. Skin: normal color, turgor, no icterus, cyanosis except occasional abrasion. HEENT: AT/NC, EOMI, PERRLA, mildly dry MM, no carotid bruits, positive JVD. Lungs: Currently significantly diminished throughout, greater bases, poor air movement, bilateral crackles at bases, no obvious rhonchi or wheezing, increased respiratory rate and some accessory muscle usage, BiPAP in place. Heart: Irregular irregular; no gallop, rub audible. Abdomen: soft, NTTP, ND, normal BS, no HSM. Extremities: no cyanosis or clubbing, mild bilateral lower extremity edema. Neurological: patient awake, alert, oriented as noted; cognitive function appears near baseline intact; pupils equally reactive to light and accomodation; cranial nerves II-XII grossly normal, moving all 4 extremities, no focal deficits, strength severely global decrease secondary to acute presentation. Psychiatric: affect appears fatigued, ill-appearing, no acute evidence of depressive or anxiety feelings. - Physical Exam Vitals/I&O's: Vital Signs Temp Pulse Resp BP Pulse Ox 96.5 F L 105 H 18 80/58 L 91 10/19/20 21:09 10/19/20 21:09 10/19/20 21:09 10/19/20 21:09 10/19/20 21:09 Oxygen Flow Rate (L/min) 3 Oxygen Delivery Method Nasal Cannula Weight: 147 lb 11.355 oz Body Mass Index (BMI) 21.8 Intake and Output for Last 24 Hours 10/17/20 10/18/20 10/19/20 23:59 23:59 23:59 Intake Total 500 / 500 Balance 500 / 500 Laboratory Results 10/19/20 20:05: WBC 9.5, RBC 3.10 L, Hgb 9.1 L, Hct 29.6 L, MCV 95.5 H, MCH 29.4, MCHC 30.7 L, RDW Std Deviation 57.0 H, RDW Coeff of Shashank 16.3 H, Plt Count 256, MPV 11.4, Immature Gran % (Auto) 0.400, Neut % (Auto) 82.5 H, Lymph % (Auto) 10.1 L, Sharp % (Auto) 6.7, Eos % (Auto) 0.0, Baso % (Auto) 0.3, Absolute Neuts (auto) 7.8 H, Absolute Lymphs (auto) 0.95, Nucleated RBC % 0 10/19/20 20:05: PT 15.2 H, INR 1.3, APTT 29.7 10/19/20 20:05: Sodium 139, Potassium 5.3 H, Chloride 107, Carbon Dioxide 28.0, Anion Gap 4 L, BUN 28 H, Creatinine 1.71 H, Estim Creat Clear Calc 31.56, Est GFR (MDRD) Af Amer 49 L, Est GFR (MDRD) Non-Af 41 L, BUN/Creatinine Ratio 16.4, Glucose 152 H, Calcium 8.5, Total Bilirubin 0.70, AST 13 L, ALT 19, Alkaline Phosphatase 80, Total Protein 5.9 L, Albumin 2.5 L, Globulin 3.4, Albumin/Globulin Ratio 0.7 L 10/19/20 20:05: Digoxin 1.00 10/19/20 20:05: Lactic Acid 3.2 H* 10/19/20 20:05: B-Natriuretic Peptide 1612.0 H 10/19/20 20:25: Blood Type Pending, Antibody Screen Pending Assessment/Plan All Active Problems (Last Reviewed 09/26/20 @ 08:00 by Nilsa Cole) Septic shock (Acute) Pneumonia (Acute) Debility (Acute) Nausea & vomiting (Acute) Acute kidney injury (Acute) Acute on chronic systolic congestive heart failure (Acute) Acute respiratory failure with hypoxia (Acute) Atrial fibrillation with RVR (Acute) Edema (Acute) Nausea (Acute) Elevated troponin (Acute 08/09/20) Atrial fibrillation with rapid ventricular response (Acute 08/09/20) Acute on chronic systolic and diastolic heart failure, NYHA class 2 (Acute) Acute kidney injury superimposed on chronic kidney disease (Acute) Hypotension (Acute) Acute respiratory failure with hypoxemia (Resolved) Amiodarone toxicity (Resolved) Dyspnea (Resolved) Dyspnea on exertion (Resolved) Nausea and vomiting (Resolved) Shortness of breath (Resolved) The patient is a 80 y/o M w/ PMHx: PAF, CAD s/p CABG x 4, Chronic Systolic/Diastolic CHF, Ischemic Cardiomyopathy, HTN, HLD, Hx prostate CA s/p prostatectomy, GERD w/ Barretts esophagus, Diabetes mellitus type II, CKD stage III, Anxiety and Depression, CKD stage III who presents to the [facility] ED on 10/19/20 with history of recent [facility] discharge 10/18/20 with treatment/evaluation for upper GI bleed with history of tarry stools for approximately 4 days prior to the presentation at that facility with per records possibly 1 unit PRBC administration and upper endoscopy but unclear specific interventions or findings with discharge on high-dose twice daily PPI x8 weeks with allowance of resumption of patient antiplatelet therapy who now presents with significant fatigue, malaise, increasing respiratory rate and sensation of dyspnea with specific statement to ED physician upon arrival I feel like I am going to . 1. Acute Hypoxic Respiratory Failure, Possibly multifactorial, Decompensated Systolic/Diastolic CHF/ischemic cardiomyopathy, #2, unclear etiology for #3 (possible pericardial versus infection/septic shock (unclear): CXR obtained in the ED w/ mild to moderate CHF. Patient administered IV lasix in the ED following initiation of pressor therapy is significantly hypotensive. Will admit to the ICU, continue network account manager consultation as well as cardiology consul tation, continue norepinephrine with ongoing evaluation as to etiology for significant hypotensive presentation, trending H&H's with no overt evidence of worsening anemia as etiology, maintain on manager cardiac cath, cycle cardiac enzymes, obtain serial EKGs, once blood pressure improved enough with pressor therapy will initiate IV Lasix regimen, placing on BiPAP in the ED and will continue upon ICU transition, continue patient Plavix therapy as well as statin therapy, echo requested. 2. Paroxsymal atrial fibrillation with RVR: EKG in ED w/ atrial fibrillation w/ RVR. Patient with eventual rate improvement following nearly IV fluids in the ED. Will maintain on telemetry, obtain cardiac enzyme serial set, obtain magnesium level, obtain ECHO, obtain TSH level. Hold on any further anticoagula nt therapy given recent GI bleed history. We will continue digoxin therapy. 3. Hypotension, unclear specific etiology, possibly infectious/septic shock: Patient with recent admission with GI bleed however hemoglobin is stable from prior with 10/18/2020 hemoglobin 8.8, received 1 unit PRBC administration and no obvious evidence of infection with chest x-ray without overt infiltrate, urinalysis not marked appearing, blood culture x2 pending per ED, given unclear specific etiology will maintain on broad-spectrum antibiotic therapy with IV Zosyn and vancomycin pending culture results, network account manager consulted as noted, may consider ID involvement if appropriate, recent outside facility PCR Covid negative however to be cautious will repeat. 4. Recent Upper GI Bleed with associated Acute Blood Loss Anemia: Patient with recent dark tarry stools prompting outside facility admission, endoscopy per report with unclear specific findings as no specific op report with per records possibly 1 unit PRBC administration, most recent hemoglobin on 10/18/2020 8.8, thus improving, continue to trend, continue high-dose PPI. 5. Chronically elevated cardiac enzymes: Admission troponin 0 0.245, prior to this on 10/14/2020 0.407 similar to recent labs through 2019 and elevated even as far back as 2017, maintaining on cardiac telemetry monitoring as noted, cycling cardiac enzymes. 6. CAD: Status post CABG x4, continue Plavix, statin, holding metoprolol, ARB given significant hypotension with prior day of IV Lasix, resume once able. 7. Chronic Kidney Disease Stage III: Admission BUN/Cr 28/1.71, baseline renal function 1.5-1.8, repeat BMP in AM. 8. Diabetes mellitus type II: Hold oral home regimen, if clinically improving and able to transition off BiPAP appropriately will initiate ADA diet, accu checks w/ ISS. 9. GERD with history of Osorio's esophagus: We will continue high-dose twice daily PPI as noted given recent GI bleed, see above. 10. History of prostate cancer: Status post radical prostatectomy, remission. 11. DVT prophylaxis: SCDs, hold chemoprophylaxis given recent significant GI bleed, from outside notes GI was amenable to resumption of patient Plavix however. 12. CODE status: Patient JEAN MARIE is his son Watson Luz and living will is not currently in place. Did discuss that he may confer with case management/social work for assistance setting up living will if interested. Discussed CODE status at length including difference between FULL code, DNR-CCA and DNR-CC status. Following discussions about the differences in these status, requested DNR-CCA, no intubation status. Advanced Care Planning Face to Face Time: 16 minutes. Inpatient E&M: 26292 Init Hosp L3 Procedures: 87363 Advncd Care Plan 30 Min
[2020-10-19 21:48] LABS: Bacteria 0 SEEN /hpf (None Seen); Mucous, Urine 0 SEEN /hpf (<or=2+)
[2020-10-19 22:16] LABS: Color, Urine Yellow (Yellow); Glucose, Dipstick Normal (Normal); Ketone-Dipstick Negative (Negative); Leukocyte Esterase-Dipstick 100 /ul (Negative); Nitrite-Dipstick Negative (Negative); Occult Blood-Urine 25 /ul (Negative); Protein-Dipstick 100 mg/dl (Negative); Urine Clarity Sl. Cloudy (Clear); Urine Urobilinogen 1 mg/dl (Normal)
[2020-10-19 22:29] LABS: Urine Bilirubin Dipstick 1 mg/dL (Negative)
--- NOTE | 2020-10-19 22:41 | RAD_ITS ---
HISTORY: Central line placement. EXAM: XR Chest 1 View: COMPARISON: 3 hours earlier FINDINGS: # of images incl. paperwork: 1 Sternal wires and mediastinal clips remain New right IJ central venous catheter terminates superimposed over the anticipated location of the SVC at the level of the right main bronchus No pneumothorax is perceived. Right paraspinous stripe and right paratracheal margins appear normal Heart is enlarged. Dexterous scoliosis persists. Pseudoarticulation with the humeral head with the undersurface of the right acromion suggests chronic full-thickness rotator cuff tear Pulmonary vascularity is slightly indistinct. Left pleural effusions. RAD/Chest 1 View (Portable) IMPRESSION: Adequate position of newly placed right IJ central venous catheter without evidence of complications from placement of the catheter.. at 2326 Reported and signed by: Mil Rader MD Electronically Signed: Mil Rader MD at 23:25 EST Tel , Service support ,
[2020-10-19 22:44] LABS: Hyaline Cast 25-50 SEEN /lpf (0-5)
[2020-10-19 22:46] LABS: Amorphous Sediment 2+; Red Blood Cells-Urine 0-5 SEEN /hpf (0-5); White Blood Cells 10-25 SEEN /hpf (0-5)
[2020-10-19 22:47] LABS: Transitional Epithelial - Ur 0-5 SEEN /hpf (0-5)
[2020-10-19 22:48] LABS: Squamous Epithelial Cells - UA 0-5 SEEN /hpf (0-5)
[2020-10-19 22:50] LABS: Renal Epithelial Cells 0-5 SEEN /hpf (0-5)
--- NOTE | 2020-10-19 23:18 | ED.VISSUMM ---
- ER Visit Summary Date of Service: 10/19/20 Chief Complaint: I feel really bad and I think I am going to . History of Present Illness: The patient is a [address] Brock and Dr. Lemus. Patient reports he was discharged from [facility] yesterday following an upper GI bleed. He did have endoscopy 2 days ago. He is under sure if any treatment was given with this. States that he was not transfused. He denies any melena since that time. Patient reports that tonight he has generalized weakness and nausea. He denies any fever or chills. No sore throat, cough, chest pain, shortness of breath. States he had a negative Covid test 2 days ago at [facility]. He denies abdominal pain, vomiting, or diarrhea. No dysuria or frequency. No rash, headache, or paresthesias. Physical Examination: Vitals: 97.0, 82/55, 105, 16, 91% on 3 L nasal cannula. General: Well-developed, but cachectic. Head: Normocephalic atraumatic. Neck: Supple, no lymphadenopathy. No JVD. Nontender. Cardiovascular: Tachycardic irregular rhythm with a 2 out of 6 systolic murmur. Respiratory: No respiratory distress. Clear to auscultation bilaterally. Abdominal: Soft, nontender, nondistended, normal bowel sounds. No guarding, rebound, or peritoneal signs. Back: Nontender. Extremities: Nontender, 1+ pitting edema lower extremities bilaterally. Skin: Normal color, no rash. Neurologic: Alert and oriented ?3. Cranial nerves II through XII are intact. Normal strength and sensation. Psych: Normal affect. Test Results: EKG is A. fib at 102 with inferolateral T wave inversions. This is unchanged from last month. Initial troponin is 0.245. However, his troponin is chronically elevated and this is better than 4 days ago. BNP is 1612. Lactic acid is 3.2. UA shows 10-25 white blood cells and no bacteria. LFTs showed a total protein of 5.9 and albumin of 2.5. AST is 13. INR is 1.3. PTT is 29.7. Chem-7 shows a potassium of 5.3, glucose 152, BUN 28, creatinine 1.71. CBC shows an H&H of 9.1 and 29.6, segs neutrophils 83, lymphocytes of 10. Of note his hemoglobin was 8.8 yesterday [facility]. Digoxin level is 1.0. Chest x-ray shows CHF. Repeat chest x-ray shows right IJ central line with no pneumothorax. Emergency Department Course and Treatment: Patient was given a 500 cc bolus of normal saline. He remained hypotensive despite this. However, his heart rate did decrease into the 90s. After consent he had a right IJ central line placed on the first attempt by me. He was started on Levophed. I do not have a source for infection, but he is hypotensive and has a lactic acidosis. He was given Zosyn and vancomycin IV. Treatment Plan: Patient was discussed with Dr. Lemus and Dr. Bains. He will be admitted to the ICU for further evaluation and treatment. He is a DNR Comfort Care arrest. Disposition: Admitted in critical condition. Impression: 1. CHF. 2. A. fib with RVR. 3. Hypertension. 4. Lactic acidosis. 5. Indeterminate troponin. 6. Right IJ central line by the ED physician. 7. Critical care time 33 minutes. This note was generated with [employer] dictation software. It may contain incorrect words, spelling, and punctuation that were not noted in review of the chart prior to signing ED Disposition - Plan for ED Patient: Referrals: Abdoulaye Brock MD [Primary Care Provider] -
[2020-10-20] VITALS (58 sets, daily range): BP systolic 76–117; BP diastolic 40–81; PULSE 74–111; RESP 12–21; TEMP 35.9–37.3; O2SAT 90–100; BMI 21.5
[2020-10-20 00:22] LABS: Reflex Lactate? Y
[2020-10-20] MEDS: Vancomycin IV 1,000 MG/200 ML BAG 200 MG IV (00:24)
--- NOTE | 2020-10-20 01:05 | ED.RN ---
Patients son updated on admission and patient condition at this time. Son to be primary contact
[2020-10-20 01:20] LABS: Bedside Glucose 85 mg/dL (70-110)
[2020-10-20] MEDS: Furosemide 40 MG/4 ML Vial IV ×2 (01:30→08:00)
[2020-10-20 01:41] LABS: Hematocrit 27.9 % (40-54); Hemoglobin 8.5 g/dL (13.0-16.5)
[2020-10-20 02:03] LABS: Lactic Acid 1.3 mmol/L (0.4-1.9)
[2020-10-20 03:06] LABS: M R Staph aureus DNA By PCR Negative (Negative); Probe Check PASS; Specimen Processing Control PASS
--- NOTE | 2020-10-20 04:07 | PCM.RX.CS ---
Consult Pharmacy has been consulted to manage selected antiobiotic: Vancomycin Type of Consult: New start Labs: Sodium 139 mmol/L (136-145) 10/19/20 20:05 Potassium 5.3 mmol/L (3.5-5.1) H 10/19/20 20:05 Chloride 107 mmol/L (98-107) 10/19/20 20:05 Carbon Dioxide 28.0 mmol/L (21.0-32.0) 10/19/20 20:05 Anion Gap 4 (5-15) L 10/19/20 20:05 BUN 28 mg/dL (7-18) H 10/19/20 20:05 Creatinine 1.71 mg/dL (0.70-1.30) H 10/19/20 20:05 Est GFR (MDRD) Af Amer 49 mL/min (>60) L 10/19/20 20:05 Est GFR (MDRD) Non-Af 41 mL/min (>60) L 10/19/20 20:05 BUN/Creatinine Ratio 16.4 RATIO (10-20) 10/19/20 20:05 Glucose 152 mg/dL (74-106) H 10/19/20 20:05 Microbiology: Microbiology 10/19/20 21:35 Urine Catheter - Catheter Legionella Antigen - Final 10/19/20 21:35 Urine Catheter - Zhang Streptococcus pneumoniae Antigen (M - Final Goal Trough: 15-20 mcg/mL Pharmacy Plan for Drug Dosing: Pharmacy Service will continue to monitor and adjust dosing as required. Medications Vancomycin HCl (Vancomycin) 1,000 mg in 200 mls @ 200 mls/hr IV Q12H CUAUHTEMOC Discontinued Medications Vancomycin HCl (Vancomycin) 1,000 mg in 200 mls @ 200 mls/hr IV X1 ONE Stop: 10/20/20 00:19 Last Admin: 10/20/20 01:24 Dose: Infused Documented by: Follow-Up Labs: Trough Vancomycin Labs to be done on [date and time ordered]: 10/21 @ 4221
[2020-10-20 04:59] LABS: Absolute Lymphocyte Count 1.54 X10^3/uL (0.83-4.51); Basophil# 0.03 X10^3/uL; Basophil% 0.3 % (0-1); Hematocrit 28.1 % (40-54); Hemoglobin 8.5 g/dL (13.0-16.5); Lymphocyte # 1.54 X10^3/ul (4.0); Lymphocyte % 14.7 % (19-41); Mean Corp Hgb Conc 30.2 g/dL (32-36); Mean Corpuscular Hgb 28.7 pg (27.0-32.0); Mean Corpuscular Volume 94.9 fL (80-94); Mean Platelet Vol. 10.6 fl (6.2-12.0); Monocyte% 8.6 % (0-10); NRBC Flagged by Analyzer 0 % (0-5); Neutrophil # 7.97 X10^3/uL (2.7-7.7); Platelet Count 266 K/mm3 (150-450); RBC Distribution Width CV 16.1 % (11.6-14.6); RBC Distribution Width SD 56.8 fl (35.1-43.9); Red Blood Count 2.96 M/mm3 (4.6-6.2); White Blood Count 10.5 K/mm3 (4.4-11.0)
[2020-10-20 05:14] LABS: ALB/GLOB Ratio 0.8 RATIO (0.9-2.4); AST(SGOT) 13 U/L (15-37); Alanine Aminotransfer ALT/SGPT 17 U/L (16-61); Albumin, Serum 2.4 g/dL (3.2-5.0); Alkaline Phosphatase 76 U/L (45-117); Anion Gap 5 (5-15); BUN 29 mg/dL (7-18); BUN/Creat Ratio 16.7 RATIO (10-20); Calcium,Total 8.3 mg/dL (8.5-10.1); Chloride 106 mmol/L (98-107); Creatinine, Serum 1.74 mg/dL (0.70-1.30); EST Glomerular Filtration Rate 40 mL/min (>60); Est Glom Filt Rate - Afr Amer 49 mL/min (>60); Globulin 3.1 g/dL (2.2-4.2); Glucose 126 mg/dL (74-106); Potassium 4.8 mmol/L (3.5-5.1); Protein, Total 5.5 g/dL (6.4-8.2); Sodium Level 139 mmol/L (136-145)
--- NOTE | 2020-10-20 05:55 | RAD_ITS ---
HISTORY: Dyspnea, cough. EXAM: XR Chest 1 View: COMPARISON: October 19, 2020 FINDINGS: # of images incl. paperwork: 1 Right IJ central venous catheter terminates superimposed over the anticipated location of the SVC, near the level of the right main bronchus. Sternal wires and mediastinal clips remain Left lower lobe airspace disease obscuring the left heart border and left hemidiaphragm is the same Heart is not enlarged. No acute osseous pathology perceived. Pulmonary vascularity is slightly indistinct. Left pleural effusions. RAD/Chest 1 View (Portable) IMPRESSION: No change. Left basilar lung disease and pleural effusions. at 0519 Reported and signed by: Mil Rader MD Electronically Signed: Mil Rader MD at 5:18 EST Tel , Service support ,
--- NOTE | 2020-10-20 06:20 | EKG12_ITS ---
Test Reason : AM EKG Blood Pressure : / mmHG Vent. Rate : 091 BPM Atrial Rate : 075 BPM P-R Int : 000 ms QRS Dur : 138 ms QT Int : 404 ms P-R-T Axes : 000 002 196 degrees QTc Int : 496 ms Atrial fibrillation Left bundle branch block Abnormal ECG When compared with ECG of 19-OCT-2020 20:07, MANUAL COMPARISON REQUIRED, DATA IS UNCONFIRMED Confirmed by DOMINIQUE MONTOYA, STARLA ([id number]), supervising editor trailer JR SEVERINO ([id number]) on 10/23/2020 9:08:04 AM Referred By: NITHYA Confirmed By:STARLA FOX MD
[2020-10-20 07:05] LABS: Bedside Glucose 98 mg/dL (70-110)
--- NOTE | 2020-10-20 07:28 | PCM.CON.CC ---
Reason for Consult Date of Consultation: 10/20/20 Reason for Consultation: Hypotension, A. fib with RVR, CHF, recent GI bleed History of Present Illness: The patient is an 80-year-old male, with a history as outlined below, who presented to the emergency department on October 19 with generalized malaise, weakness and nausea. The patient was last admitted to our hospital in August 2020 with atrial fibrillation with RVR and subsequent hypotension. The patient does have a history of coronary artery disease status post CABG. His last surface echocardiogram from July 2020 revealed an ejection fraction of 30% with severe global LV systolic dysfunction. On presentation to the emergency department, the patient was noted to be afebrile and hemodynamically stable. Laboratory evaluation revealed no evidence of a leukocytosis. Coagulation profile revealed an INR of 1.3. Chemistry profile was notable for a potassium of 5.3 and creatinine of 1.71. Lactate was elevated to 3.2. Troponin was increased to 0.245. BNP was elevated to 1612. Procalcitonin was only noted to be 0.10. MRSA screen was negative. Coronavirus PCR was negative. Chest x-ray revealed stigmata of congestive heart failure with a probable left pleural effusion. The patient was given supplemental IV fluids and a right IJ and central venous catheter was placed. The patient was started on empiric antimicrobials along with vasopressors to maintain hemodynamic stability. Past Medical History Past Medical History (Chronic Problems): Chronic Problems (Last Reviewed 09/26/20 @ 08:00 by Nilsa Cole) Atrial fibrillation (Chronic) Hypokalemia (Chronic) Coronary artery disease (Chronic) Chronic kidney disease (Chronic) Hypertension (Chronic) Diabetes mellitus (Chronic) Prostate cancer (Chronic) Depression (Chronic) Chronic systolic congestive heart failure (Chronic) Diabetes mellitus type 2 in nonobese (Chronic) Anxiety (Chronic) Persistent atrial fibrillation (Chronic) History of permanent cardiac pacemaker placement (Chronic 08/16/20) VVI 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 Bradycardia (Chronic) Atherosclerosis of coronary artery of [place] heart with angina pectoris (Chronic) History of non-ST elevation myocardial infarction (NSTEMI) (Chronic 05/2017) 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) CABG x 4: COLES-LAD, SVG-D1, SVG to proximal end of SVG to diagonal going to OM 2, and SVG-RPDA 10/30/16 Ischemic cardiomyopathy (Chronic) Secondary pulmonary arterial hypertension (Chronic) Left bundle branch block (LBBB) (Chronic) Essential (primary) hypertension (Chronic) Hyperlipidemia (Chronic) Medical History: Medical History (Last Reviewed 09/26/20 @ 08:00 by Nilsa Cole) Persistent atrial fibrillation (Chronic) I48.19 Elevated troponin (Acute) Onset Date: 08/09/20 R79.89 Atrial fibrillation with rapid ventricular response (Acute) Onset Date: 08/09/20 I48.91 Acute on chronic systolic and diastolic heart failure, NYHA class 2 (Acute) I50.43 Acute kidney injury superimposed on chronic kidney disease (Acute) N17.9, N18.9 Bradycardia (Chronic) R00.1 Hypotension (Acute) I95.9 Atherosclerosis of coronary artery of [place] heart with angina pectoris (Chronic) I25.119 History of non-ST elevation myocardial infarction (NSTEMI) (Chronic) Onset Date: 05/2017 I25.2 Ischemic cardiomyopathy (Chronic) I25.5 Secondary pulmonary arterial hypertension (Chronic) I27.21 Left bundle branch block (LBBB) (Chronic) I44.7 Essential (primary) hypertension (Chronic) I10 Hyperlipidemia (Chronic) E78.5 Barretts esophagus K22.70 Bilateral pleural effusion Onset Date: 11/2019 J90 CKD (chronic kidney disease) N18.9 Prostate cancer C61 Transient ischemic attack G45.9 Type 2 diabetes mellitus E11.9 Acute respiratory failure with hypoxemia (Resolved) J96.01 Dyspnea on exertion (Resolved) R06.09 Nausea and vomiting (Resolved) R11.2 Shortness of breath (Resolved) R06.02 Paroxysmal atrial fibrillation (Inactive) I48.0 Allergies spironolactone Allergy (Verified 10/14/20 09:58) severe weakness lisinopril Adverse Reaction (Mild, Verified 10/14/20 09:58) Dry cough amiodarone Adverse Reaction (Verified 10/14/20 09:58) toxicity Home Medications: Ambulatory Orders Medication Instructions Recorded Acetaminophen [Tylenol] 1,000 mg PO Q6H PRN PRN tab 09/19/20 candesartan 4 mg tablet 4 mg PO DAILY #30 tab 10/18/20 clopidogrel 75 mg tablet 75 mg PO QDAY #30 tab 10/18/20 furosemide 40 mg tablet 60 mg PO DAILY #30 tab 10/18/20 metoprolol succinate 100 mg 100 mg PO DAILY #30 tab 10/18/20 tablet,extended release 24 hr pantoprazole 40 mg tablet,delayed 40 mg PO DAILY #30 tab 10/18/20 release potassium chloride 10 mEq 20 meq PO DAILY #60 cap 10/18/20 capsule,extended release rosuvastatin 10 mg tablet 10 mg PO DAILY #30 tab 10/18/20 sitagliptin 50 mg-metformin 1,000 1 tab PO BID #60 tab 10/18/20 mg tablet Digoxin [Lanoxin] 1.25 mcg PO .twice a week 10/19/20 Surgical History: Surgical History (Last Reviewed 09/26/20 @ 08:00 by Nilsa Cole) History of permanent cardiac pacemaker placement (Chronic) Onset Date: 08/16/20 Z95.0 VVI 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 H/O coronary artery bypass surgery (Chronic) Onset Date: 10/30/16 Z95.1 CABG x 4: COLES-LAD, SVG-D1, SVG to proximal end of SVG to diagonal going to OM 2, and SVG-RPDA 10/30/16 History of cardioversion Onset Date: 03/30/20 Z98.890 History of colonoscopy Z98.890 History of dental surgery Z92.89 History of esophagogastroduodenoscopy (EGD) Z98.890 History of left heart catheterization Onset Date: 08/13/20 Z98.890 [place] 07/23/2018, 08/13/20 History of prostatectomy Z90.79 Surgical History: coronary bypass surgery - x 4., pacemaker implantation, - - Prostatectomy, cardioversion, oral surgery. Psychiatric History: Anxiety, Depression Lives: Spouse/ Significant Other Smoking Status: Never smoker Tobacco Use: Non-smoker Alcohol: None Drugs: None - Denies any market maternal or paternal family history including heart disease, diabetes, cancer, notes they both passed at an advanced age. - *Family History Paternal Family History: Family History (Last Reviewed 09/26/20 @ 08:00 by Nilsa Cole) Sister Diabetes Sister Colon cancer Diabetes CVA (cerebral vascular accident) Sister Diabetes Brother Heart disease Diabetes History Items: - - Patient denies any market maternal or paternal family history including heart disease, diabetes, cancer. Maternal Family History: Family History (Last Reviewed 09/26/20 @ 08:00 by Nilsa Cole) Sister Diabetes Sister Colon cancer Diabetes CVA (cerebral vascular accident) Sister Diabetes Brother Heart disease Diabetes History Items: - - Patient denies any market maternal or paternal family history including heart disease, diabetes, cancer. Sibling Family History: Family History (Last Reviewed 09/26/20 @ 08:00 by Nilsa Cole) Sister Diabetes Sister Colon cancer Diabetes CVA (cerebral vascular accident) Sister Diabetes Brother Heart disease Diabetes History Items: - - Patient has siblings with diabetes, heart disease, strokes, colon cancer. Review of Systems Constitutional: Reports: Malaise, Weakness, Fatigue. Denies: Chills, Fever Eyes: Denies: Blurred vision, Double vision HEENT: Denies: Head Aches, Sinus Congestion, Sinus Drainage Cardiovascular: Reports: Edema. Denies: Chest Pain, Palpitations Respiratory: Reports: Shortness of Breath Gastrointestinal: Reports: Nausea Genitourinary: Denies: Dysuria Musculoskeletal: Denies: Joint Pain, Joint Tenderness Skin: Denies: Rash, Wounds Neurological: Denies: Numbness, Tingling, Focal weakness Psychiatric: Denies: Anxiety, Depression, Homicidal Ideations, Suicidal Ideations Hematologic/ Lymphatic: Reports: Anemia Patient Problems: Active and Suspected Problems (Last Reviewed 09/26/20 @ 08:00 by Nilsa Cole) Acute on chronic systolic congestive heart failure (Acute) Acute respiratory failure with hypoxia (Acute) Atrial fibrillation with RVR (Acute) Hypotension (Acute) Objective: The patient's most recent lab work, culture data and imaging studies have all been personally reviewed. Coronavirus PCR was negative. MRSA screen was negative. Strep and urine Legionella antigens were negative. Respiratory viral panel was negative. Blood and urine cultures are pending. - Physical Exam Vitals/I&O's: Vital Signs Temp Pulse Resp BP Pulse Ox 96.7 F L 89 20 H 95/62 100 10/20/20 01:00 10/20/20 04:00 10/20/20 02:00 10/20/20 02:00 10/20/20 02:00 Oxygen Flow Rate (L/min) 4 Oxygen Delivery Method Nasal Cannula Weight: 145 lb 11.185 oz Body Mass Index (BMI) 21.5 Intake and Output for Last 24 Hours 10/18/20 10/19/20 10/20/20 23:59 23:59 23:59 Intake Total 515.98 / 515.98 319.74 / 319.74 Output Total 180 / 180 Balance 515.98 / 515.98 139.74 / 139.74 General: Alert, Cooperative, No apparent distress, Lethargic HEENT: Atraumatic, Normocephalic Oral: Dry Mucosa Neck: Supple, No Nodes, Trachea Midline Lungs: No rhonchi, Diminished, Wheezes Cardiovascular: Normal S1, Normal S2, Irregular Rate Abdomen: Bowel Sounds Present, Soft, Non Tender Extremities: No clubbing, No cyanosis, Edema Skin: - - Lower extremity venous stasis dermatitis Musculoskeletal: No Tenderness to Palpation of Joints or Extremities Lymphatic: No Cervical, Supraclavicular, or Inguinal Adenopathy Neurological: Cranial nerves II-XII grossly intact, Neuro grossly intact Psych/Mental Status: Flat Affect Labs (Last 48 Hours) 10/19/20 10/19/20 10/19/20 20:05 20:05 20:05 WBC 9.5 RBC 3.10 L Hgb 9.1 L Hct 29.6 L MCV 95.5 H MCH 29.4 MCHC 30.7 L RDW Std Deviation 57.0 H RDW Coeff of Shashank 16.3 H Plt Count 256 MPV 11.4 Immature Gran % (Auto) 0.400 Neut % (Auto) 82.5 H Lymph % (Auto) 10.1 L [place] % (Auto) 6.7 Eos % (Auto) 0.0 Baso % (Auto) 0.3 Absolute Neuts (auto) 7.8 H Absolute Lymphs (auto) 0.95 Nucleated RBC % 0 PT 15.2 H INR 1.3 APTT 29.7 Sodium 139 Potassium 5.3 H Chloride 107 Carbon Dioxide 28.0 Anion Gap 4 L BUN 28 H Creatinine 1.71 H Estim Creat Clear Calc 31.56 Est GFR (MDRD) Af Amer 49 L Est GFR (MDRD) Non-Af 41 L BUN/Creatinine Ratio 16.4 Glucose 152 H Lactic Acid Calcium 8.5 Magnesium Total Bilirubin 0.70 AST 13 L ALT 19 Alkaline Phosphatase 80 Troponin I B-Natriuretic Peptide Total Protein 5.9 L Albumin 2.5 L Globulin 3.4 Albumin/Globulin Ratio 0.7 L Procalcitonin Urine Color Urine Clarity Urine pH Ur Specific [place] Urine Protein Urine Glucose (UA) Urine Ketones Urine Occult Blood Urine Nitrite Urine Bilirubin Urine Urobilinogen Ur Leukocyte Esterase Urine RBC Urine WBC Ur Squamous Epith Cells Ur Transition Epith Cell Ur Renal Epithelial Cell Amorphous Sediment Urine Bacteria Hyaline Casts Urine Mucus Digoxin COVID-19 (JUDY) MRSA (PCR) POC Glucose Blood Type Antibody Screen 10/19/20 10/19/20 10/19/20 20:05 20:05 20:05 WBC RBC Hgb Hct MCV MCH MCHC RDW Std Deviation RDW Coeff of Shashank Plt Count MPV Immature Gran % (Auto) Neut % (Auto) Lymph % (Auto) [place] % (Auto) Eos % (Auto) Baso % (Auto) Absolute Neuts (auto) Absolute Lymphs (auto) Nucleated RBC % PT INR APTT Sodium Potassium Chloride Carbon Dioxide Anion Gap BUN Creatinine Estim Creat Clear Calc Est GFR (MDRD) Af Amer Est GFR (MDRD) Non-Af BUN/Creatinine Ratio Glucose Lactic Acid 3.2 H* Calcium Magnesium Total Bilirubin AST ALT Alkaline Phosphatase Troponin I B-Natriuretic Peptide 1612.0 H Total Protein Albumin Globulin Albumin/Globulin Ratio Procalcitonin Urine Color Urine Clarity Urine pH Ur Specific [place] Urine Protein Urine Glucose (UA) Urine Ketones Urine Occult Blood Urine Nitrite Urine Bilirubin Urine Urobilinogen Ur Leukocyte Esterase Urine RBC Urine WBC Ur Squamous Epith Cells Ur Transition Epith Cell Ur Renal Epithelial Cell Amorphous Sediment Urine Bacteria Hyaline Casts Urine Mucus Digoxin 1.00 COVID-19 (JUDY) MRSA (PCR) POC Glucose Blood Type Antibody Screen 10/19/20 10/19/20 10/19/20 20:05 20:05 20:05 WBC RBC Hgb Hct MCV MCH MCHC RDW Std Deviation RDW Coeff of Shashank Plt Count MPV Immature Gran % (Auto) Neut % (Auto) Lymph % (Auto) [place] % (Auto) Eos % (Auto) Baso % (Auto) Absolute Neuts (auto) Absolute Lymphs (auto) Nucleated RBC % PT INR APTT Sodium Potassium Chloride Carbon Dioxide Anion Gap BUN Creatinine Estim Creat Clear Calc Est GFR (MDRD) Af Amer Est GFR (MDRD) Non-Af BUN/Creatinine Ratio Glucose Lactic Acid Calcium Magnesium 2.0 Total Bilirubin AST ALT Alkaline Phosphatase Troponin I 0.245 H B-Natriuretic Peptide Total Protein Albumin Globulin Albumin/Globulin Ratio Procalcitonin 0.10 H Urine Color Urine Clarity Urine pH Ur Specific [place] Urine Protein Urine Glucose (UA) Urine Ketones Urine Occult Blood Urine Nitrite Urine Bilirubin Urine Urobilinogen Ur Leukocyte Esterase Urine RBC Urine WBC Ur Squamous Epith Cells Ur Transition Epith Cell Ur Renal Epithelial Cell Amorphous Sediment Urine Bacteria Hyaline Casts Urine Mucus Digoxin COVID-19 (JUDY) MRSA (PCR) POC Glucose Blood Type Antibody Screen 10/19/20 10/19/20 10/19/20 20:25 21:35 23:47 WBC RBC Hgb Hct MCV MCH MCHC RDW Std Deviation RDW Coeff of Shashank Plt Count MPV Immature Gran % (Auto) Neut % (Auto) Lymph % (Auto) [place] % (Auto) Eos % (Auto) Baso % (Auto) Absolute Neuts (auto) Absolute Lymphs (auto) Nucleated RBC % PT INR APTT Sodium Potassium Chloride Carbon Dioxide Anion Gap BUN Creatinine Estim Creat Clear Calc Est GFR (MDRD) Af Amer Est GFR (MDRD) Non-Af BUN/Creatinine Ratio Glucose Lactic Acid Calcium Magnesium Total Bilirubin AST ALT Alkaline Phosphatase Troponin I B-Natriuretic Peptide Total Protein Albumin Globulin Albumin/Globulin Ratio Procalcitonin Urine Color Yellow Urine Clarity Sl. Cloudy Urine pH 5.0 Ur Specific [place] 1.020 Urine Protein 100 H Urine Glucose (UA) Normal Urine Ketones Negative Urine Occult Blood 25 H Urine Nitrite Negative Urine Bilirubin 1 H Urine Urobilinogen 1 H Ur Leukocyte Esterase 100 H Urine RBC 0-5 SEEN Urine WBC 10-25 SEEN Ur Squamous Epith Cells 0-5 SEEN Ur Transition Epith Cell 0-5 SEEN Ur Renal Epithelial Cell 0-5 SEEN Amorphous Sediment 2+ Urine Bacteria 0 SEEN Hyaline Casts 25-50 SEEN Urine Mucus 0 SEEN Digoxin COVID-19 (JUDY) MRSA (PCR) Negative POC Glucose Blood Type A NEGATIVE Antibody Screen NEGATIVE 10/20/20 10/20/20 10/20/20 01:14 01:20 01:34 WBC RBC Hgb 8.5 L Hct 27.9 L MCV MCH MCHC RDW Std Deviation RDW Coeff of Shashank Plt Count MPV Immature Gran % (Auto) Neut % (Auto) Lymph % (Auto) [place] % (Auto) Eos % (Auto) Baso % (Auto) Absolute Neuts (auto) Absolute Lymphs (auto) Nucleated RBC % PT INR APTT Sodium Potassium Chloride Carbon Dioxide Anion Gap BUN Creatinine Estim Creat Clear Calc Est GFR (MDRD) Af Amer Est GFR (MDRD) Non-Af BUN/Creatinine Ratio Glucose Lactic Acid Calcium Magnesium Total Bilirubin AST ALT Alkaline Phosphatase Troponin I B-Natriuretic Peptide Total Protein Albumin Globulin Albumin/Globulin Ratio Procalcitonin Urine Color Urine Clarity Urine pH Ur Specific [place] Urine Protein Urine Glucose (UA) Urine Ketones Urine Occult Blood Urine Nitrite Urine Bilirubin Urine Urobilinogen Ur Leukocyte Esterase Urine RBC Urine WBC Ur Squamous Epith Cells Ur Transition Epith Cell Ur Renal Epithelial Cell Amorphous Sediment Urine Bacteria Hyaline Casts Urine Mucus Digoxin COVID-19 (JUDY) Negative MRSA (PCR) POC Glucose 85 Blood Type Antibody Screen 10/20/20 10/20/20 10/20/20 01:34 04:45 04:45 WBC 10.5 RBC 2.96 L Hgb 8.5 L Hct 28.1 L MCV 94.9 H MCH 28.7 MCHC 30.2 L RDW Std Deviation 56.8 H RDW Coeff of Shashank 16.1 H Plt Count 266 MPV 10.6 Immature Gran % (Auto) 0.400 Neut % (Auto) 76.0 H Lymph % (Auto) 14.7 L [place] % (Auto) 8.6 Eos % (Auto) 0.0 Baso % (Auto) 0.3 Absolute Neuts (auto) 8.0 H Absolute Lymphs (auto) 1.54 Nucleated RBC % 0 PT INR APTT Sodium 139 Potassium 4.8 Chloride 106 Carbon Dioxide 28.0 Anion Gap 5 BUN 29 H Creatinine 1.74 H Estim Creat Clear Calc 30.60 Est GFR (MDRD) Af Amer 49 L Est GFR (MDRD) Non-Af 40 L BUN/Creatinine Ratio 16.7 Glucose 126 H Lactic Acid 1.3 Calcium 8.3 L Magnesium Total Bilirubin 0.90 AST 13 L ALT 17 Alkaline Phosphatase 76 Troponin I B-Natriuretic Peptide Total Protein 5.5 L Albumin 2.4 L Globulin 3.1 Albumin/Globulin Ratio 0.8 L Procalcitonin Urine Color Urine Clarity Urine pH Ur Specific [place] Urine Protein Urine Glucose (UA) Urine Ketones Urine Occult Blood Urine Nitrite Urine Bilirubin Urine Urobilinogen Ur Leukocyte Esterase Urine RBC Urine WBC Ur Squamous Epith Cells Ur Transition Epith Cell Ur Renal Epithelial Cell Amorphous Sediment Urine Bacteria Hyaline Casts Urine Mucus Digoxin COVID-19 (JUDY) MRSA (PCR) POC Glucose Blood Type Antibody Screen 10/20/20 06:56 WBC RBC Hgb Hct MCV MCH MCHC RDW Std Deviation RDW Coeff of Shasahnk Plt Count MPV Immature Gran % (Auto) Neut % (Auto) Lymph % (Auto) [place] % (Auto) Eos % (Auto) Baso % (Auto) Absolute Neuts (auto) Absolute Lymphs (auto) Nucleated RBC % PT INR APTT Sodium Potassium Chloride Carbon Dioxide Anion Gap BUN Creatinine Estim Creat Clear Calc Est GFR (MDRD) Af Amer Est GFR (MDRD) Non-Af BUN/Creatinine Ratio Glucose Lactic Acid Calcium Magnesium Total Bilirubin AST ALT Alkaline Phosphatase Troponin I B-Natriuretic Peptide Total Protein Albumin Globulin Albumin/Globulin Ratio Procalcitonin Urine Color Urine Clarity Urine pH Ur Specific [place] Urine Protein Urine Glucose (UA) Urine Ketones Urine Occult Blood Urine Nitrite Urine Bilirubin Urine Urobilinogen Ur Leukocyte Esterase Urine RBC Urine WBC Ur Squamous Epith Cells Ur Transition Epith Cell Ur Renal Epithelial Cell Amorphous Sediment Urine Bacteria Hyaline Casts Urine Mucus Digoxin COVID-19 (JUDY) MRSA (PCR) POC Glucose 98 Blood Type Antibody Screen Microbiology 10/20/20 01:20 Mucosa - Nasopharyngeal Respiratory Panel (PCR) - Final 10/19/20 21:35 Urine Catheter - Catheter Legionella Antigen - Final 10/19/20 21:35 Urine Catheter - Zhang Streptococcus pneumoniae Antigen (M - Final Clinical Impression(s) from Imaging Studies Chest X-Ray 10/19/20 20:10 IMPRESSION: Mild to moderate CHF Electronically Signed: Vargas Johnson MD at 21:26 EST , Service support , Chest X-Ray 10/19/20 22:41 IMPRESSION: Adequate position of newly placed right IJ central venous catheter without evidence of complications from placement of the catheter.. at 8575 Reported and signed by: Mil Rader MD Electronically Signed: Mil Rader MD at 23:25 EST Tel , Service support , Chest X-Ray 10/20/20 05:55 IMPRESSION: No change. Left basilar lung disease and pleural effusions. at 0519 Reported and signed by: Mil Rader MD Electronically Signed: Mil Rader MD at 5:18 EST Tel , Service support , Current Medications Acetaminophen (Acetaminophen 650 Mg Suppository) 650 mg RECTAL Q4H PRN PRN PRN Reason: Pain Score 1-10/Temp > 100.7 F Acetaminophen (Acetaminophen 325 Mg Tablet) 650 mg PO Q6H PRN PRN PRN Reason: Pain Score 1-10/Temp > 100.7 F Al Hydroxide/Mg Hydroxide (Mag Hydrox/Al Hydrox/Simeth 30 Ml Udc) 30 ml PO Q6H PRN PRN PRN Reason: Gastric Burning Albuterol Sulfate (Albuterol 2.5 Mg/3 Ml Vial.Neb.) 2.5 mg INHALATION Q2H PRN PRN PRN Reason: Dyspnea, wheezing Atorvastatin Calcium (Atorvastatin Calcium 20 Mg Tablet) 20 mg PO QHS [id number] Clopidogrel Bisulfate (Clopidogrel Bisulfate 75 Mg Tablet) 75 mg PO DAILY [facility] Dextrose (Dextrose 50%-Water 25 Gm/50 Ml Disp.Syrin) 0 gm IV X1 PRN; Protocol PRN Reason: Hypoglycemia Digoxin (Digoxin 125 Mcg Tablet) 62.5 mcg PO .twice a week [facility] Furosemide (Furosemide 40 Mg/4 Ml Vial) 40 mg IV BID@1000,1800 [facility] Last Admin: 10/20/20 01:30 Dose: 40 mg Documented by: Glucagon (Glucagon 1 Mg/Ml Syringe) 1 mg IM .X1 PRN PRN Reason: Hypoglycemia Guaifenesin (Guaifenesin 10 Ml Udc (200mg/10ml)) 10 ml PO Q4H PRN PRN PRN Reason: COUGH Hydralazine HCl (Hydralazine 20 Mg/Ml Vial) 10 mg IV Q4H PRN PRN PRN Reason: SBP > 160 Norepinephrine Bitartrate 8 mg (/ Sodium Chloride) 250 mls @ 9.375 mls/hr CONT INF .[id number] [facility]; Protocol Last Titration: 10/20/20 02:00 Dose: 5 mcg/min, 9.4 mls/hr Documented by: Norepinephrine Bitartrate 8 mg (/ Sodium Chloride) 250 mls @ 9.375 mls/hr CONT INF .[id number] [facility]; Protocol Piperacillin Sod/Tazobactam (Sod 3.375 gm/ Sodium Chloride) 50 mls @ 12.5 mls/hr IV Q8 [facility] Last Admin: 10/20/20 06:57 Dose: 12.5 mls/hr Documented by: Vancomycin IV Pharmacy to Dose (1 ea/ Sodium Chloride) 500 mls @ 250 mls/hr IV X1 PRN; Protocol PRN Reason: Rx to Dose Sodium Chloride () 250 mls @ 15 mls/hr IV .[id number] PRN PRN Reason: Saline Flush Sodium Chloride () 250 mls @ 15 mls/hr IV .[id number] PRN PRN Reason: Additional IVPB Infusion Vancomycin HCl (Vancomycin) 1,000 mg in 200 mls @ 200 mls/hr IV Q12H [facility] Insulin Human Lispro (Insulin Lispro 100 Unit/Ml Insuln.Pen) 0 unit SC Q6 [facility]; Protocol Last Admin: 10/20/20 06:57 Dose: Not Given Documented by: Magnesium Hydroxide (Magnesium Hydroxide 30 Ml Udc) 30 ml PO DAILY PRN PRN PRN Reason: Constipation Melatonin (Melatonin 3 Mg Tablet) 3 mg PO QHS PRN PRN PRN Reason: INSOMNIA Morphine Sulfate (Morphine 2 Mg/Ml Syringe) 2 mg IV Q3H PRN PRN PRN Reason: Pain Score 6-10 Nitroglycerin (Nitroglycerin (Inpatient Use) 0.4 Mg Tab.Subl) 0.4 mg SUBLINGUAL Q5M PRN PRN Reason: CARDIAC/CHEST PAIN Ondansetron HCl (Ondansetron 4 Mg/2 Ml Vial) 4 mg IV Q8H PRN PRN PRN Reason: NAUSEA/VOMITING Oxycodone HCl (Oxycodone 5 Mg Tablet) 5 mg PO Q4H PRN PRN PRN Reason: Pain Score 4-5 Pantoprazole Sodium (Pantoprazole Sodium 40 Mg Tablet) 40 mg PO BID [facility] Potassium Chloride (Potassium Chloride 20 Meq Tablet) 20 meq PO DAILY [facility] Prochlorperazine Edisylate (Prochlorperazine 10 Mg/2 Ml Vial) 5 mg IV Q4H PRN PRN PRN Reason: Breakthrough Nausea/Vomiting Psyllium Hydrophilic Mucilloid (Psyllium 1 Packet) 1 packet PO DAILY PRN PRN PRN Reason: Constipation Senna/Docusate Sodium (Senna/Docusate Sodium 1 Tablet) 2 tablet PO BID PRN PRN PRN Reason: Constipation Sodium Chloride (0.9% Saline Lock 10 Ml Syringe) 10 - 40 ml IV UD PRN PRN Reason: SALINE FLUSH Throat Lozenges (Benzocaine/Menthol 1 Lozenge) 1 lozenge MUCOUS MEM Q2H PRN PRN PRN Reason: SORE THROAT Assessment/Plan Active and Suspected Problems (Last Reviewed 09/26/20 @ 08:00 by Nilsa Cole) Acute on chronic systolic congestive heart failure (Acute) Acute respiratory failure with hypoxia (Acute) Atrial fibrillation with RVR (Acute) Hypotension (Acute) RECOMMENDATIONS: 1. Discontinue Lasix for now. 2. Administer small fluid bolus. 3. Wean Levophed to maintain a mean arterial pressure at or above 65 mmHg. 4. Wean supplemental oxygen to maintain saturations at or above 90%. 5. Encourage incentive spirometer use and mobilize patient as tolerated. 6. Continue empiric antimicrobials, pending infectious work-up. IMPRESSIONS: 1. Acute hypoxemic respiratory failure The patient reportedly does not utilize supplemental oxygen at his baseline. I do suspect that his acute respiratory failure was likely secondary to decompensated heart failure and/or underlying pneumonia. The patient has been treated with a combination of both fluids and IV diuretics. His oxygenation status is currently stable. Plan to continue to wean supplemental oxygen to maintain saturations at or above 90%. The patient will remain on empiric antimicrobials for now. Encourage incentive spirometer use and mobilize patient as tolerated. I would recommend that the patient's diuretics be held for now. 2. Distributive shock The patient has a baseline low systolic pressure around 90 mmHg. While the patient is currently being worked up from an infectious standpoint we will plan to continue empiric antimicrobials and vasopressor support to maintain a mean arterial pressure at or above 65 mmHg. I would recommend that IV diuretics be placed on hold. Will give small fluid bolus. 3. Paroxysmal atrial fibrillation/decompensated heart failure/coronary artery disease status post CABG Continue current medical management. Cardiology consultation is currently pending. 4. Recent GI bleed/anemia Continue PPI therapy. Monitor H&H daily with plans to transfuse if hemoglobin drops below 7 g/dL. 5. Advanced age/diabetes mellitus/chronic kidney disease/GERD/history of prostate CA Complicates care, management, recovery and prognosis. Continue home medications as indicated. TIME: 34 minutes of critical care time, independent of procedures, was spent addressing the patient's acute hypoxemic respiratory failure, distributive shock, paroxysmal atrial fibrillation, anemia, review of all data and collaboration with the care team. [id number]) [phone]: [id number] Critical care first hour
--- NOTE | 2020-10-20 07:29 | PCM.PN.HOSP ---
Patient Problems: Active and Suspected Problems (Last Reviewed 09/26/20 @ 08:00 by Nilsa Cole) Acute on chronic systolic congestive heart failure (Acute) Acute respiratory failure with hypoxia (Acute) Atrial fibrillation with RVR (Acute) Hypotension (Acute) Reason for Visit: Acute hypoxic respiratory failure Acute congestive heart failure with reduced ejection fraction Subjective: Patient is an 80-year-old gentleman with multiple comorbidities discharged from [facility] [place] following admission for GI bleed presented to the emergency department with progressive generalized weakness. Imaging studies obtained on admission was consistent with CHF admitted to the safe care unit for subsequent management Objective: GENERAL: cooperative HEENT: Atraumatic; EYES; Anicteric, Normal Conjunctiva NECK; supple, normal thyroid, RESPIRATORY: Diminished to auscultation CARDIOVASCULAR: Irregular S1-S2 GI: soft, normoactive bowel sounds, : No Renal angle tenderness; EXTREMITIES: No edema, no clubbing, MUSCULOSKELETAL: no muscle waisting NEURO: Awake; no lateralizing signs. SKIN: No Rash PSYCH; Flat affect Vitals/I&O's: Vital Signs Temp Pulse Resp BP Pulse Ox 96.7 F L 89 20 H 95/62 100 10/20/20 01:00 10/20/20 04:00 10/20/20 02:00 10/20/20 02:00 10/20/20 02:00 Oxygen Flow Rate (L/min) 4 Oxygen Delivery Method Nasal Cannula Weight: 66.088 kg Body Mass Index (BMI) 21.5 Intake and Output for Last 24 Hours 10/18/20 10/19/20 10/20/20 23:59 23:59 23:59 Intake Total 515.98 / 515.98 319.74 / 319.74 Output Total 180 / 180 Balance 515.98 / 515.98 139.74 / 139.74 Microbiology Past 72 Hours 10/20/20 01:20 Mucosa - Nasopharyngeal Respiratory Panel (PCR) - Final 10/19/20 21:35 Urine Catheter - Catheter Legionella Antigen - Final 10/19/20 21:35 Urine Catheter - Zhang Streptococcus pneumoniae Antigen (M - Final Laboratory Results 10/19/20 20:05: WBC 9.5, RBC 3.10 L, Hgb 9.1 L, Hct 29.6 L, MCV 95.5 H, MCH 29.4, MCHC 30.7 L, RDW Std Deviation 57.0 H, RDW Coeff of Shashank 16.3 H, Plt Count 256, MPV 11.4, Immature Gran % (Auto) 0.400, Neut % (Auto) 82.5 H, Lymph % (Auto) 10.1 L, Bibb % (Auto) 6.7, Eos % (Auto) 0.0, Baso % (Auto) 0.3, Absolute Neuts (auto) 7.8 H, Absolute Lymphs (auto) 0.95, Nucleated RBC % 0 10/19/20 20:05: PT 15.2 H, INR 1.3, APTT 29.7 10/19/20 20:05: Sodium 139, Potassium 5.3 H, Chloride 107, Carbon Dioxide 28.0, Anion Gap 4 L, BUN 28 H, Creatinine 1.71 H, Estim Creat Clear Calc 31.56, Est GFR (MDRD) Af Amer 49 L, Est GFR (MDRD) Non-Af 41 L, BUN/Creatinine Ratio 16.4, Glucose 152 H, Calcium 8.5, Total Bilirubin 0.70, AST 13 L, ALT 19, Alkaline Phosphatase 80, Total Protein 5.9 L, Albumin 2.5 L, Globulin 3.4, Albumin/Globulin Ratio 0.7 L 10/19/20 20:05: Digoxin 1.00 10/19/20 20:05: Lactic Acid 3.2 H* 10/19/20 20:05: B-Natriuretic Peptide 1612.0 H 10/19/20 20:05: Troponin I 0.245 H 10/19/20 20:05: Magnesium 2.0 10/19/20 20:05: Procalcitonin 0.10 H 10/19/20 20:25: Blood Type A NEGATIVE, Antibody Screen NEGATIVE 10/19/20 21:35: Urine Color Yellow, Urine Clarity Sl. Cloudy, Urine pH 5.0, Ur Specific [place] 1.020, Urine Protein 100 H, Urine Glucose (UA) Normal, Urine Ketones Negative, Urine Occult Blood 25 H, Urine Nitrite Negative, Urine Bilirubin 1 H, Urine Urobilinogen 1 H, Ur Leukocyte Esterase 100 H, Urine RBC 0-5 SEEN, Urine WBC 10-25 SEEN, Ur Squamous Epith Cells 0-5 SEEN, Ur Transition Epith Cell 0-5 SEEN, Ur Renal Epithelial Cell 0-5 SEEN, Amorphous Sediment 2+, Urine Bacteria 0 SEEN, Hyaline Casts 25-50 SEEN, Urine Mucus 0 SEEN 10/19/20 23:47: MRSA (PCR) Negative 10/20/20 01:14: POC Glucose 85 10/20/20 01:20: COVID-19 (JUDY) Negative 10/20/20 01:34: Hgb 8.5 L, Hct 27.9 L 10/20/20 01:34: Lactic Acid 1.3 10/20/20 04:45: WBC 10.5, RBC 2.96 L, Hgb 8.5 L, Hct 28.1 L, MCV 94.9 H, MCH 28.7, MCHC 30.2 L, RDW Std Deviation 56.8 H, RDW Coeff of Shashank 16.1 H, Plt Count 266, MPV 10.6, Immature Gran % (Auto) 0.400, Neut % (Auto) 76.0 H, Lymph % (Auto) 14.7 L, Bibb % (Auto) 8.6, Eos % (Auto) 0.0, Baso % (Auto) 0.3, Absolute Neuts (auto) 8.0 H, Absolute Lymphs (auto) 1.54, Nucleated RBC % 0 10/20/20 04:45: Sodium 139, Potassium 4.8, Chloride 106, Carbon Dioxide 28.0, Anion Gap 5, BUN 29 H, Creatinine 1.74 H, Estim Creat Clear Calc 30.60, Est GFR (MDRD) Af Amer 49 L, Est GFR (MDRD) Non-Af 40 L, BUN/Creatinine Ratio 16.7, Glucose 126 H, Calcium 8.3 L, Total Bilirubin 0.90, AST 13 L, ALT 17, Alkaline Phosphatase 76, Total Protein 5.5 L, Albumin 2.4 L, Globulin 3.1, Albumin/Globulin Ratio 0.8 L 10/20/20 06:56: POC Glucose 98 Current Medications Acetaminophen (Acetaminophen 650 Mg Suppository) 650 mg RECTAL Q4H PRN PRN PRN Reason: Pain Score 1-10/Temp > 100.7 F Acetaminophen (Acetaminophen 325 Mg Tablet) 650 mg PO Q6H PRN PRN PRN Reason: Pain Score 1-10/Temp > 100.7 F Al Hydroxide/Mg Hydroxide (Mag Hydrox/Al Hydrox/Simeth 30 Ml Udc) 30 ml PO Q6H PRN PRN PRN Reason: Gastric Burning Albuterol Sulfate (Albuterol 2.5 Mg/3 Ml Vial.Neb.) 2.5 mg INHALATION Q2H PRN PRN PRN Reason: Dyspnea, wheezing Atorvastatin Calcium (Atorvastatin Calcium 20 Mg Tablet) 20 mg PO QHS [facility] Clopidogrel Bisulfate (Clopidogrel Bisulfate 75 Mg Tablet) 75 mg PO DAILY [facility] Dextrose (Dextrose 50%-Water 25 Gm/50 Ml Disp.Syrin) 0 gm IV X1 PRN; Protocol PRN Reason: Hypoglycemia Digoxin (Digoxin 125 Mcg Tablet) 62.5 mcg PO .twice a week [facility] Furosemide (Furosemide 40 Mg/4 Ml Vial) 40 mg IV BID@1000,1800 [facility] Last Admin: 10/20/20 01:30 Dose: 40 mg Documented by: Glucagon (Glucagon 1 Mg/Ml Syringe) 1 mg IM .X1 PRN PRN Reason: Hypoglycemia Guaifenesin (Guaifenesin 10 Ml Udc (200mg/10ml)) 10 ml PO Q4H PRN PRN PRN Reason: COUGH Hydralazine HCl (Hydralazine 20 Mg/Ml Vial) 10 mg IV Q4H PRN PRN PRN Reason: SBP > 160 Norepinephrine Bitartrate 8 mg (/ Sodium Chloride) 250 mls @ 9.375 mls/hr CONT INF .[id number] [facility]; Protocol Last Titration: 10/20/20 02:00 Dose: 5 mcg/min, 9.4 mls/hr Documented by: Norepinephrine Bitartrate 8 mg (/ Sodium Chloride) 250 mls @ 9.375 mls/hr CONT INF .[id number] [facility]; Protocol Piperacillin Sod/Tazobactam (Sod 3.375 gm/ Sodium Chloride) 50 mls @ 12.5 mls/hr IV Q8 [facility] Last Admin: 10/20/20 06:57 Dose: 12.5 mls/hr Documented by: Vancomycin IV Pharmacy to Dose (1 ea/ Sodium Chloride) 500 mls @ 250 mls/hr IV X1 PRN; Protocol PRN Reason: Rx to Dose Sodium Chloride () 250 mls @ 15 mls/hr IV .[id number] PRN PRN Reason: Saline Flush Sodium Chloride () 250 mls @ 15 mls/hr IV .[id number] PRN PRN Reason: Additional IVPB Infusion Vancomycin HCl (Vancomycin) 1,000 mg in 200 mls @ 200 mls/hr IV Q12H [facility] Insulin Human Lispro (Insulin Lispro 100 Unit/Ml Insuln.Pen) 0 unit SC Q6 [id number]; Protocol Last Admin: 10/20/20 06:57 Dose: Not Given Documented by: Magnesium Hydroxide (Magnesium Hydroxide 30 Ml Udc) 30 ml PO DAILY PRN PRN PRN Reason: Constipation Melatonin (Melatonin 3 Mg Tablet) 3 mg PO QHS PRN PRN PRN Reason: INSOMNIA Morphine Sulfate (Morphine 2 Mg/Ml Syringe) 2 mg IV Q3H PRN PRN PRN Reason: Pain Score 6-10 Nitroglycerin (Nitroglycerin (Inpatient Use) 0.4 Mg Tab.Subl) 0.4 mg SUBLINGUAL Q5M PRN PRN Reason: CARDIAC/CHEST PAIN Ondansetron HCl (Ondansetron 4 Mg/2 Ml Vial) 4 mg IV Q8H PRN PRN PRN Reason: NAUSEA/VOMITING Oxycodone HCl (Oxycodone 5 Mg Tablet) 5 mg PO Q4H PRN PRN PRN Reason: Pain Score 4-5 Pantoprazole Sodium (Pantoprazole Sodium 40 Mg Tablet) 40 mg PO BID [facility] Potassium Chloride (Potassium Chloride 20 Meq Tablet) 20 meq PO DAILY [facility] Prochlorperazine Edisylate (Prochlorperazine 10 Mg/2 Ml Vial) 5 mg IV Q4H PRN PRN PRN Reason: Breakthrough Nausea/Vomiting Psyllium Hydrophilic Mucilloid (Psyllium 1 Packet) 1 packet PO DAILY PRN PRN PRN Reason: Constipation Senna/Docusate Sodium (Senna/Docusate Sodium 1 Tablet) 2 tablet PO BID PRN PRN PRN Reason: Constipation Sodium Chloride (0.9% Saline Lock 10 Ml Syringe) 10 - 40 ml IV UD PRN PRN Reason: SALINE FLUSH Throat Lozenges (Benzocaine/Menthol 1 Lozenge) 1 lozenge MUCOUS MEM Q2H PRN PRN PRN Reason: SORE THROAT STROKE Vital Signs/Narrative: Vital Signs Pulse 10/20/20 04:00 89 Medical Necessity - Tobacco Use Smoking Status: Never smoker Tobacco Use: Non-smoker Assessment/Plan All Active Problems (Last Reviewed 09/26/20 @ 08:00 by Nilsa Cole) Septic shock (Acute) Pneumonia (Acute) Debility (Acute) Nausea & vomiting (Acute) Acute kidney injury (Acute) Acute on chronic systolic congestive heart failure (Acute) Acute respiratory failure with hypoxia (Acute) Atrial fibrillation with RVR (Acute) Edema (Acute) Nausea (Acute) Elevated troponin (Acute 08/09/20) Atrial fibrillation with rapid ventricular response (Acute 08/09/20) Acute on chronic systolic and diastolic heart failure, NYHA class 2 (Acute) Acute kidney injury superimposed on chronic kidney disease (Acute) Hypotension (Acute) Acute respiratory failure with hypoxemia (Resolved) Amiodarone toxicity (Resolved) Dyspnea (Resolved) Dyspnea on exertion (Resolved) Nausea and vomiting (Resolved) Shortness of breath (Resolved) Patient is an 80-year-old gentleman with multiple comorbidities discharged from [facility] following admission for GI bleed presented to the emergency department with progressive generalized weakness. Imaging studies obtained on admission was consistent with CHF admitted to the safe care unit for subsequent management 1. Acute hypoxic respiratory failure ?Secondary to decompensated congestive heart failure admitted to the intensive care unit placed on noninvasive ventilation BiPAP with consultation placed to pulmonary medicine 2. Acute on chronic congestive heart failure with reduced ejection fraction of 30% ?Patient presented with acute respiratory failure admitted to the intensive care unit, started on Lasix, fluid restriction, daily input and output, daily weights, 3. Elevated troponin ?Secondary to demand ischemia from above 4. Lactic acidosis ?Patient does not have any evidence of an infectious etiology do suspect ischemia from hypoperfusion as a result of patient congestive heart failure also patient is on Metformin this could be the etiology 5. Dyslipidemia -Patient is on statin therapy, continued at home dose 6. Diabetes mellitus type II - Controlled/uncontrolled, patient's oral hypoglycemics held. Placed on long acting insulin, Accu-Cheks a.c. and at bedtime and covered with sliding scale insulin 7. Paroxysmal A. fib ?Patient presented with A. fib with RVR, rate is now controlled; patient was on apixaban held in view of his recent GI bleed 8. Anemia - Secondary to chronic disorder as well as acute on chronic blood loss from GI bleed monitoring H&H and transfuse if patient becomes symptomatic or hemoglobin falls below 7 9. Coronary artery disease ?Status post CABG with subsequent ischemic cardiomyopathy with EF of 30% 10. Chronic kidney disease stage III ?Kidney function at baseline 11. Hyperkalemia ?Potassium levels improved with diuresis 12. 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 Essential hypertension ?Blood pressure relatively low antihypertensives on hold 14. Depression with anxiety ?Patient is on Cymbalta 15. DVT prophylaxis ?Held of chemoprophylaxis in view of patient recent GI bleed Clinical Impression(s) from Imaging Studies Chest X-Ray 10/19/20 20:10 IMPRESSION: Mild to moderate CHF Electronically Signed: Vargas Johnson MD at 21:26 EST , Service support , Chest X-Ray 10/19/20 22:41 IMPRESSION: Adequate position of newly placed right IJ central venous catheter without evidence of complications from placement of the catheter.. at 2326 Reported and signed by: Mil Rader MD Electronically Signed: Mil Rader MD at 23:25 EST Tel , Service support , Chest X-Ray 10/20/20 05:55 IMPRESSION: No change. Left basilar lung disease and pleural effusions. at 0519 Reported and signed by: Mil Rader MD Electronically Signed: Mil Rader MD at 5:18 EST Tel , Service support , Inpatient E&M: [id number] Subs Hosp L3
[2020-10-20] MEDS: Pantoprazole Sodium 40 MG Tablet PO ×2 (08:51→21:28)
[2020-10-20] MEDS: Clopidogrel Bisulfate 75 MG Tablet PO (08:51)
--- NOTE | 2020-10-20 10:33 | PCM.CONS.C ---
Reason for Consult Date of Consultation: 10/20/20 Reason for Consultation: Generalized weakness History of Present Illness: The patient is a 80 year old M who presents to the hospital after being recently discharged from the [facility] where he had presented with anemia and a GI bleed. He has had multiple admissions to the hospital in this last year. He does have a history of coronary artery disease status post previous ST elevation myocardial infarction in April 2017. It resulted in bypass surgery with a left internal mammary artery to the left anterior descending artery, saphenous vein graft to diagonal branch, saphenous vein graft to obtuse marginal branch from the diagonal branch and saphenous vein graft to the posterior descending artery. He also has a history of hypertension, hyperlipidemia, and previous cerebrovascular accident. He was admitted to the hospital in July 2020 with shortness of breath mild troponin elevation and he underwent a cardiac catheterization. It demonstrated patency of his bypass grafts and medical therapy was recommended. He also has a history of atrial fibrillation which has been difficult to control. He underwent DC cardioversion once but it did not maintain and he was allergic to amiodarone. Due to his ventricular response rate which was uncontrolled as he had reverted back to atrial fibrillation it was decided to implant a Micra pacemaker on 08/16/2020. He tolerated the procedure well. He did return 48 hours later to the hospital with mild shortness of breath but it was because he had not been put on the same dose of his Lasix. He was given intravenous Lasix and discharged to TCU. While on transitional care unit he developed tachycardia with low blood pressure reading. He returned to progressive care unit and was started on digoxin therapy. Due to hypotension his Entresto was held. Once he returned to TCU his Entresto was restarted, but ultimately discontinued on account of worsening renal function and hypotension. On 09/20/2020 his digoxin level was noted to be elevated and digoxin was held. On 09/21/2020 presented to [facility] Emergency Department with nausea. He was given Zofran and return to TCU. He was discharged from TCU on 09/22/2020. On 10/05/2020 he presented [facility] Emergency Department with weakness. His digoxin level was elevated and he was instructed to hold his digoxin for 2 days and have this rechecked. His most recent admission was for anemia he was transferred to the [facility] it was not clear exactly what was done but he was subsequently discharged and presented within 24 hours to the emergency room here saying he felt unwell. He denies chest, arm, jaw, or neck discomfort. His exercise tolerance is limited on account of fatigue. He denies symptoms of palpitations, lightheadedness, dizziness, near syncope, or syncopal episodes. He denies edema or claudication issues. He denies PND, fever, chills, cough, blood in urine, blood in stool, myalgia. Past Medical History Allergies/Adverse Reactions: Allergies spironolactone Allergy (Verified 10/14/20 09:58) severe weakness lisinopril Adverse Reaction (Mild, Verified 10/14/20 09:58) Dry cough amiodarone Adverse Reaction (Verified 10/14/20 09:58) toxicity Home Medications: Ambulatory Orders Medication Instructions Recorded Acetaminophen [Tylenol] 1,000 mg PO Q6H PRN PRN tab 09/19/20 candesartan 4 mg tablet 4 mg PO DAILY #30 tab 10/18/20 clopidogrel 75 mg tablet 75 mg PO QDAY #30 tab 10/18/20 furosemide 40 mg tablet 60 mg PO DAILY #30 tab 10/18/20 metoprolol succinate 100 mg 100 mg PO DAILY #30 tab 10/18/20 tablet,extended release 24 hr pantoprazole 40 mg tablet,delayed 40 mg PO DAILY #30 tab 10/18/20 release potassium chloride 10 mEq 20 meq PO DAILY #60 cap 10/18/20 capsule,extended release rosuvastatin 10 mg tablet 10 mg PO DAILY #30 tab 10/18/20 sitagliptin 50 mg-metformin 1,000 1 tab PO BID #60 tab 10/18/20 mg tablet Digoxin [Lanoxin] 1.25 mcg PO .twice a week 10/19/20 Past Medical History (Chronic Problems): Chronic Problems (Last Reviewed 09/26/20 @ 08:00 by Nilsa Cole) Atrial fibrillation (Chronic) Hypokalemia (Chronic) Coronary artery disease (Chronic) Chronic kidney disease (Chronic) Hypertension (Chronic) Diabetes mellitus (Chronic) Prostate cancer (Chronic) Depression (Chronic) Chronic systolic congestive heart failure (Chronic) Diabetes mellitus type 2 in nonobese (Chronic) Anxiety (Chronic) Persistent atrial fibrillation (Chronic) History of permanent cardiac pacemaker placement (Chronic 08/16/20) VVI 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 Bradycardia (Chronic) Atherosclerosis of coronary artery of [place] heart with angina pectoris (Chronic) History of non-ST elevation myocardial infarction (NSTEMI) (Chronic 05/2017) 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) CABG x 4: COLES-LAD, SVG-D1, SVG to proximal end of SVG to diagonal going to OM 2, and SVG-RPDA 10/30/16 Ischemic cardiomyopathy (Chronic) Secondary pulmonary arterial hypertension (Chronic) Left bundle branch block (LBBB) (Chronic) Essential (primary) hypertension (Chronic) Hyperlipidemia (Chronic) Surgical History: coronary bypass surgery - x 4., pacemaker implantation, - - Prostatectomy, cardioversion, oral surgery. Psychiatric History: Anxiety, Depression - *Family History Paternal Family History: Family History (Last Reviewed 09/26/20 @ 08:00 by Nilsa Cole) Sister Diabetes Sister Colon cancer Diabetes CVA (cerebral vascular accident) Sister Diabetes Brother Heart disease Diabetes History Items: - - Patient denies any market maternal or paternal family history including heart disease, diabetes, cancer. Maternal Family History: Family History (Last Reviewed 09/26/20 @ 08:00 by Nilsa Cole) Sister Diabetes Sister Colon cancer Diabetes CVA (cerebral vascular accident) Sister Diabetes Brother Heart disease Diabetes History Items: - - Patient denies any market maternal or paternal family history including heart disease, diabetes, cancer. Sibling Family History: Family History (Last Reviewed 09/26/20 @ 08:00 by Nilsa Cole) Sister Diabetes Sister Colon cancer Diabetes CVA (cerebral vascular accident) Sister Diabetes Brother Heart disease Diabetes History Items: - - Patient has siblings with diabetes, heart disease, strokes, colon cancer. Lives: Spouse/ Significant Other Smoking Status: Never smoker Tobacco Use: Non-smoker Alcohol: None Drugs: None - Denies any market maternal or paternal family history including heart disease, diabetes, cancer, notes they both passed at an advanced age. Review of Systems - Review of Systems General: Reports: Fatigue, Malaise, Weakness, Decreased Appetite. Denies: Fever, Night Sweats HEENT: Denies: Vision Change Cardiovascular: Denies: Chest Discomfort, Shortness of Breath, Orthopnea, PND, Peripheral Edema, Palpitations, Lightheadedness, Dizziness, Near Syncope, Syncope Respiratory: Denies: Cough, Sputum Production, Hemoptysis Gastrointestinal: Denies: Hematemesis, Hematochezia, Melena Genitourinary: Denies: Dysuria, Hematuria Skin: Denies: Rash Psychiatric: Denies: Anxiety Objective: Vital Signs Temp Pulse Resp BP Pulse Ox 98.1 F 89 15 87/55 L 100 10/20/20 10:00 10/20/20 10:00 10/20/20 10:00 10/20/20 10:00 10/20/20 10:00 Oxygen Flow Rate (L/min) 2 Oxygen Delivery Method Nasal Cannula Weight: 145 lb 11.185 oz Body Mass Index (BMI) 21.5 Intake and Output for Last 24 Hours 10/18/20 10/19/20 10/20/20 23:59 23:59 23:59 Intake Total 515.98 / 515.98 612.84 / 612.84 Output Total 905 / 905 Balance 515.98 / 515.98 -292.16 / -292.16 10/19/20 20:05: WBC 9.5, RBC 3.10 L, Hgb 9.1 L, Hct 29.6 L, MCV 95.5 H, MCH 29.4, MCHC 30.7 L, Plt Count 256, MPV 11.4, Immature Gran % (Auto) 0.400, Neut % (Auto) 82.5 H, Lymph % (Auto) 10.1 L, [place] % (Auto) 6.7, Eos % (Auto) 0.0, Baso % (Auto) 0.3, Absolute Neuts (auto) 7.8 H, Nucleated RBC % 0 10/19/20 20:05: PT 15.2 H, INR 1.3, APTT 29.7 10/19/20 20:05: Sodium 139, Potassium 5.3 H, Chloride 107, Carbon Dioxide 28.0, Anion Gap 4 L, BUN 28 H, Creatinine 1.71 H, Est GFR (MDRD) Af Amer 49 L, Est GFR (MDRD) Non-Af 41 L, BUN/Creatinine Ratio 16.4, Glucose 152 H, Calcium 8.5, Total Bilirubin 0.70 10/19/20 20:05: Digoxin 1.00 10/19/20 20:05: Lactic Acid 3.2 H* 10/19/20 20:05: B-Natriuretic Peptide 1612.0 H 10/19/20 20:05: Troponin I 0.245 H 10/19/20 20:05: Magnesium 2.0 10/19/20 21:35: Urine Color Yellow, Urine Clarity Sl. Cloudy, Urine pH 5.0, Ur Specific [place] 1.020, Urine Protein 100 H, Urine Glucose (UA) Normal, Urine Ketones Negative, Urine Occult Blood 25 H, Urine Nitrite Negative, Urine Bilirubin 1 H, Urine Urobilinogen 1 H, Ur Leukocyte Esterase 100 H, Urine RBC 0-5 SEEN, Urine WBC 10-25 SEEN 10/20/20 01:34: Hgb 8.5 L, Hct 27.9 L 10/20/20 01:34: Lactic Acid 1.3 10/20/20 04:45: WBC 10.5, RBC 2.96 L, Hgb 8.5 L, Hct 28.1 L, MCV 94.9 H, MCH 28.7, MCHC 30.2 L, Plt Count 266, MPV 10.6, Immature Gran % (Auto) 0.400, Neut % (Auto) 76.0 H, Lymph % (Auto) 14.7 L, [place] % (Auto) 8.6, Eos % (Auto) 0.0, Baso % (Auto) 0.3, Absolute Neuts (auto) 8.0 H, Nucleated RBC % 0 10/20/20 04:45: Sodium 139, Potassium 4.8, Chloride 106, Carbon Dioxide 28.0, Anion Gap 5, BUN 29 H, Creatinine 1.74 H, Est GFR (MDRD) Af Amer 49 L, Est GFR (MDRD) Non-Af 40 L, BUN/Creatinine Ratio 16.7, Glucose 126 H, Calcium 8.3 L, Total Bilirubin 0.90 10/20/20 04:45: Troponin I 0.227 H 10/20/20 08:12: Troponin I 0.195 H Rhythm: EKG: Atrial fibrillation with intermittently paced rhythm ECHO: Global left ventricular systolic dysfunction estimated EF 30% from July 2020 Stress Test: Cardiac Cath: PCI: CT Surgery: Holter monitor: EPS: PPM: CXR: Chest CT Scan: Assessment/Plan 1. Paroxysmal atrial fibrillation I48.0 Patient is Micra pacemaker which appears to be functioning well. He is on a beta-kelsey which should be continued once his blood pressure is stable. He has tolerated digoxin but at a higher dose he gets significantly nauseated. I did suggest that due to his renal dysfunction we put him on digoxin 0.0625 mg twice a week. His digoxin level in the emergency room was noted to be normal. He can have diltiazem added if his blood pressure improves. Due to his significant anemia I do not think that he is a candidate for anticoagulation. We will hold off on cardioversion at this time. 2. 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 We will continue to monitor this with routine/scheduled follow-ups. His device check prior to office visit showed BRAILLE TYPIST percent 13.8% impaired longevity greater than 8 years. 3. Atherosclerosis of [place] coronary artery of [place] heart with angina pectoris I25.119 Plan His most recent heart catheterization showed patency of bypass grafts. He denies any chest, arm, jaw, or neck discomfort suggestive of angina. His shortness of breath at this time is thought related to fluid volume overload. His fatigue is thought to be related to medications plus or minus atrial fibrillation. We will continue current medication and continue to monitor. Comprehensive Metabolic Profil 10/09/20 CBC W/Diff, Automated 10/09/20 4. H/O coronary artery bypass surgery Z95.1 CABG x 4: COLES-LAD, SVG-D1, SVG to proximal end of SVG to diagonal going to OM 2, and SVG-RPDA 10/30/16 as noted above his bypass grafts are noted to be patent and I will not recommend that we make any changes with respect to this. 5. Ischemic cardiomyopathy I25.5 Plan His most recent heart catheterization in July 2020 showed an ejection fraction of 30%. Patient's BNP upon admission in August 2020 was greater than 5000. He does acknowledge orthopnea. He does not appear to be a candidate for a biventricular defibrillator but this may be what may need to be considered. His blood pressure has also not been optimal to allow as to use Entresto and/or significant diuretics. 6. Essential hypertension 7. Hyperlipidemia, unspecified hyperlipidemia type E78.5 Plan He is currently not on cholesterol lowering medication. He will continue risk factor and lifestyle modification. His clinical condition is rather guarded at this time. We will continue to optimize his medical therapy with rate control. Thank you for allowing me to participate in the care of your patient. Please don't hesitate to call if any issues arise.
--- NOTE | 2020-10-20 11:06 | NT.THERAPY_ITS ---
Nutrition Therapy Report - History Nutrition Services has been consulted to:: Manage nutrient details of diet order Current diet / nutrition support order:: regular - Anthropometric Measurements Height:: 5 ft 9 in Weight:: 66.088 kg Body Mass Index (BMI):: 21.5 - Relevant Labs Relevant Labs:: RBC 2.96 M/mm3 (4.6-6.2) L 10/20/20 04:45 Hgb 8.5 g/dL (13.0-16.5) L 10/20/20 04:45 Hct 28.1 % (40-54) L 10/20/20 04:45 MCV 94.9 fL (80-94) H 10/20/20 04:45 MCHC 30.2 g/dL (32-36) L 10/20/20 04:45 RDW Std Deviation 56.8 fl (35.1-43.9) H 10/20/20 04:45 RDW Coeff of [place] 16.1 % (11.6-14.6) H 10/20/20 04:45 Neut % (Auto) 76.0 % (47-70) H 10/20/20 04:45 Lymph % (Auto) 14.7 % (19-41) L 10/20/20 04:45 Absolute Neuts (auto) 8.0 X10^3/uL (2.0-7.7) H 10/20/20 04:45 PT 15.2 SECONDS (11.7-14.9) H 10/19/20 20:05 Potassium 5.3 mmol/L (3.5-5.1) H 10/19/20 20:05 Anion Gap 4 (5-15) L 10/19/20 20:05 BUN 29 mg/dL (7-18) H 10/20/20 04:45 Creatinine 1.74 mg/dL (0.70-1.30) H 10/20/20 04:45 Est GFR (MDRD) Af Amer 49 mL/min (>60) L 10/20/20 04:45 Est GFR (MDRD) Non-Af 40 mL/min (>60) L 10/20/20 04:45 Glucose 126 mg/dL (74-106) H 10/20/20 04:45 Lactic Acid 3.2 mmol/L (0.4-1.9) H* 10/19/20 20:05 Calcium 8.3 mg/dL (8.5-10.1) L 10/20/20 04:45 AST 13 U/L (15-37) L 10/20/20 04:45 Troponin I 0.195 ng/mL (<0.045) H 10/20/20 08:12 B-Natriuretic Peptide 1612.0 pg/mL (0-100) H 10/19/20 20:05 Total Protein 5.5 g/dL (6.4-8.2) L 10/20/20 04:45 Albumin 2.4 g/dL (3.2-5.0) L 10/20/20 04:45 Albumin/Globulin Ratio 0.8 RATIO (0.9-2.4) L 10/20/20 04:45 Procalcitonin 0.10 ng/mL (0.00-0.09) H 10/19/20 20:05 - Assessment Food / Nutrition-Related History:: Discussed in ICU rounds. Recently d/c'd from F for GI bleed. Pt well known to this RDN from previous [facility] admissions. Known to have chronically poor/variable PO intake. Per EMR, appears to have ongoing wt loss. CBW 145.7#. Was 163.6# on 03/27/20 (17.9#/10.9% wt loss x ~7 months); 153.4# on 09/18/20 (7.7#/5% wt loss x 1 month). Per nursing documentation, has R/LLE 1+ pitting edema which is likely masking further wt loss. Intake this AM to be established. - Nutrition Diagnosis Problem / Etiology / Signs & Symptoms (PES):: Pt w/ moderate, chronic malnutrition related to inadequate energy intake as evidenced by estimated PO intake meeting less than 75% of estimated nutritional needs >3 months, wt loss of 17.9#/10.9% x 7 months, 7.7#/5% wt loss x 1 month. Evidence of Malnutrition Exists:: Yes Moderate PCM:: Chronic Illness - Nutrition Intervention Nutrition Prescription:: [id number] calories, 60-70 g protein/day - Food / Nutrient Delivery Interventions Summary of nutrition intervention:: ONS w/ medpass for additional calories/protein if consumed. Nutrition support ordered as / adjusted to:: glucerna 120mL 4x/day; continue regular diet as tolerated. - MNT Monitoring Further MNT monitoring and evaluation required?: Yes MNT Follow-up in:: 3-5 days
[2020-10-20 11:16] LABS: Bedside Glucose 126 mg/dL (70-110)
--- NOTE | 2020-10-20 12:05 | CASEMGMT ---
RN CM assessment: Face to Face with patient for initial transition planning/care coordination assessment. RN CM introduced self and role at [facility], pt voices understanding and consents to assessment at this time. Pt is well known to this RN CM due to previous visits. Pt is sitting up in bed in no distress at this time. Pt is currently on 2L nc at this time but does have some use of accessory muscles with breathing. Care providers, pharmacy, and demographics verified. PCP: Delmy Specialists: Allan filer and sander Preferred Pharmacy: [facility] Insurance: [facility] Prescription Benefit: yes Living Will/HPOA: none LNOK: Watson Luz, son; Luana Luz, (has some dementia) Living Arrangements: Patient lives with in a single story home with 1 step to enter the home. Patient states has had some trouble caring for self at home and expects him to be able to care for her as well. Pt states that his does not realize how 'sick I am'. Transportation: self/son DME/HHC: Pt states he has a cane, shower chair, raised toilet, walker, and grab bars. Pt states no need for any further DME at this time. Pt states is current with [facility] and [facility]. Pt has been to TCU in the recent past. Pt asks this RN CM about hospice and states him and his son have had discussions regarding this recently. Pt had palliative referral sent previously. Melissa NASH aware to call pt son per his request, voices understanding. Pt states unsure of plan at d/c at this time. Pt states is retired. Pt states does not smoke cigarettes or drink ETOH. Pt states no further concerns/needs at this time. CM to follow for any further discharge planning/needs. Advised pt to ask for CM if any further questions/concerns/needs arise, voices understanding. Pt Goal: Home Plan: TBD [place] RN CM
[2020-10-20 17:15] LABS: Bedside Glucose 164 mg/dL (70-110)
[2020-10-20] MEDS: Atorvastatin Calcium 20 MG Tablet PO (21:28)
[2020-10-20 23:35] LABS: Bedside Glucose 199 mg/dL (70-110)
[2020-10-20] MEDS: Insulin Lispro 100 UNIT/ML INSULN.PEN SC (23:36)
[2020-10-21] VITALS (52 sets, daily range): BP systolic 64–120; BP diastolic 42–90; PULSE 78–141; RESP 11–24; TEMP 36.4–37.4; O2SAT 85–100
[2020-10-21 05:27] LABS: Absolute Lymphocyte Count 1.31 X10^3/uL (0.83-4.51); Absolute Neutrophil Count 6.9 X10^3/uL (2.0-7.7); Basophil# 0.05 X10^3/uL; Basophil% 0.6 % (0-1); Hematocrit 27.5 % (40-54); Hemoglobin 8.3 g/dL (13.0-16.5); Lymphocyte # 1.31 X10^3/ul (4.0); Lymphocyte % 14.5 % (19-41); Mean Corp Hgb Conc 30.2 g/dL (32-36); Mean Corpuscular Hgb 28.5 pg (27.0-32.0); Mean Corpuscular Volume 94.5 fL (80-94); Mean Platelet Vol. 11.2 fl (6.2-12.0); Monocyte# 0.72 X10^3/uL; NRBC Flagged by Analyzer 0 % (0-5); Neutrophil # 6.92 X10^3/uL (2.7-7.7); Neutrophil % 76.7 % (47-70); Platelet Count 253 K/mm3 (150-450); RBC Distribution Width CV 16.1 % (11.6-14.6); RBC Distribution Width SD 55.5 fl (35.1-43.9); Red Blood Count 2.91 M/mm3 (4.6-6.2)
[2020-10-21 05:38] LABS: Anion Gap 3 (5-15); BUN 29 mg/dL (7-18); BUN/Creat Ratio 15.6 RATIO (10-20); Calcium,Total 8.3 mg/dL (8.5-10.1); Chloride 106 mmol/L (98-107); Creatinine, Serum 1.86 mg/dL (0.70-1.30); EST Glomerular Filtration Rate 37 mL/min (>60); Est Glom Filt Rate - Afr Amer 45 mL/min (>60); Estimated Creatinine Clearance 28.62 ml/min; Glucose 157 mg/dL (74-106); Potassium 4.2 mmol/L (3.5-5.1); Sodium Level 140 mmol/L (136-145)
[2020-10-21 05:45] LABS: Bedside Glucose 167 mg/dL (70-110)
--- NOTE | 2020-10-21 06:25 | PN_ITS ---
Subjective: The patient was seen and examined at the bedside this morning. Events from the last 24 hours have been reviewed. The patient is currently afebrile, hemodynamically stable and maintaining appropriate oxygen saturations on 2 L/min via nasal cannula. Hemoglobin is stable this morning at 8.3 g/dL. Creatinine is a bit elevated at 1.86. The patient remains on Levophed at 5 mcg/min to maintain hemodynamic stability. Objective: The patient's most recent lab work, culture data and imaging studies have all been personally reviewed. Surface echocardiogram from July 2020 revealed ejection fraction of 30% with severe global LV systolic dysfunction. Coronavirus PCR was negative on October 20. Respiratory viral panel was negative. Strep and urine Legionella antigens were negative. Blood cultures are pending. Urine culture was positive for gram-negative jones. General: Alert, Cooperative, No apparent distress HEENT: Atraumatic, Normocephalic Oral: Dry Mucosa Neck: Supple, No Nodes, Trachea Midline Lungs: Diminished, Rales - Left base Cardiovascular: Normal S1, Normal S2, Irregular Rate Abdomen: Bowel Sounds Present, Soft, Non Tender Extremities: No clubbing, No cyanosis, Edema Skin: - - Lower extremity venous stasis dermatitis. Musculoskeletal: No Tenderness to Palpation of Joints or Extremities Lymphatic: No Cervical, Supraclavicular, or Inguinal Adenopathy Neurological: Cranial nerves II-XII grossly intact, Neuro grossly intact Psych/Mental Status: Flat Affect Vital Signs Temp Pulse Resp BP Pulse Ox 98.5 F 94 16 103/54 L 99 10/21/20 06:00 10/21/20 06:00 10/21/20 06:00 10/21/20 06:00 10/21/20 06:00 Oxygen Flow Rate (L/min) 2 Oxygen Delivery Method Nasal Cannula Weight: 145 lb 11.2 oz Body Mass Index (BMI) 21.5 Intake and Output for Last 24 Hours 10/19/20 10/20/20 10/21/20 23:59 23:59 23:59 Intake Total 515.98 / 515.98 2124.56 / 2214.56 260.55 / 260.55 Output Total 2480 / 2755 675 / 675 Balance 515.98 / 515.98 -355.44 / -540.44 -414.45 / -414.45 Labs (Last 48 Hours) 10/19/20 10/19/2021 20:05 20:05 20:05 WBC 9.5 RBC 3.10 L Hgb 9.1 L Hct 29.6 L MCV 95.5 H MCH 29.4 MCHC 30.7 L RDW Std Deviation 57.0 H RDW Coeff of Shashank 16.3 H Plt Count 256 MPV 11.4 Immature Gran % (Auto) 0.400 Neut % (Auto) 82.5 H Lymph % (Auto) 10.1 L Morgan % (Auto) 6.7 Eos % (Auto) 0.0 Baso % (Auto) 0.3 Absolute Neuts (auto) 7.8 H Absolute Lymphs (auto) 0.95 Nucleated RBC % 0 PT 15.2 H INR 1.3 APTT 29.7 Sodium 139 Potassium 5.3 H Chloride 107 Carbon Dioxide 28.0 Anion Gap 4 L BUN 28 H Creatinine 1.71 H Estim Creat Clear Calc 31.56 Est GFR (MDRD) Af Amer 49 L Est GFR (MDRD) Non-Af 41 L BUN/Creatinine Ratio 16.4 Glucose 152 H Lactic Acid Calcium 8.5 Magnesium Total Bilirubin 0.70 AST 13 L ALT 19 Alkaline Phosphatase 80 Troponin I B-Natriuretic Peptide Total Protein 5.9 L Albumin 2.5 L Globulin 3.4 Albumin/Globulin Ratio 0.7 L Procalcitonin Urine Color Urine Clarity Urine pH Ur Specific [place] Urine Protein Urine Glucose (UA) Urine Ketones Urine Occult Blood Urine Nitrite Urine Bilirubin Urine Urobilinogen Ur Leukocyte Esterase Urine RBC Urine WBC Ur Squamous Epith Cells Ur Transition Epith Cell Ur Renal Epithelial Cell Amorphous Sediment Urine Bacteria Hyaline Casts Urine Mucus Digoxin COVID-19 (JUDY) MRSA (PCR) POC Glucose Blood Type Antibody Screen 10/19/20 10/19/20 10/19/20 20:05 20:05 20:05 WBC RBC Hgb Hct MCV MCH MCHC RDW Std Deviation RDW Coeff of Shashank Plt Count MPV Immature Gran % (Auto) Neut % (Auto) Lymph % (Auto) Morgan % (Auto) Eos % (Auto) Baso % (Auto) Absolute Neuts (auto) Absolute Lymphs (auto) Nucleated RBC % PT INR APTT Sodium Potassium Chloride Carbon Dioxide Anion Gap BUN Creatinine Estim Creat Clear Calc Est GFR (MDRD) Af Amer Est GFR (MDRD) Non-Af BUN/Creatinine Ratio Glucose Lactic Acid 3.2 H* Calcium Magnesium Total Bilirubin AST ALT Alkaline Phosphatase Troponin I B-Natriuretic Peptide 1612.0 H Total Protein Albumin Globulin Albumin/Globulin Ratio Procalcitonin Urine Color Urine Clarity Urine pH Ur Specific [place] Urine Protein Urine Glucose (UA) Urine Ketones Urine Occult Blood Urine Nitrite Urine Bilirubin Urine Urobilinogen Ur Leukocyte Esterase Urine RBC Urine WBC Ur Squamous Epith Cells Ur Transition Epith Cell Ur Renal Epithelial Cell Amorphous Sediment Urine Bacteria Hyaline Casts Urine Mucus Digoxin 1.00 COVID-19 (JUDY) MRSA (PCR) POC Glucose Blood Type Antibody Screen 10/19/20 10/19/20 10/19/20 20:05 20:05 20:05 WBC RBC Hgb Hct MCV MCH MCHC RDW Std Deviation RDW Coeff of Shashank Plt Count MPV Immature Gran % (Auto) Neut % (Auto) Lymph % (Auto) Morgan % (Auto) Eos % (Auto) Baso % (Auto) Absolute Neuts (auto) Absolute Lymphs (auto) Nucleated RBC % PT INR APTT Sodium Potassium Chloride Carbon Dioxide Anion Gap BUN Creatinine Estim Creat Clear Calc Est GFR (MDRD) Af Amer Est GFR (MDRD) Non-Af BUN/Creatinine Ratio Glucose Lactic Acid Calcium Magnesium 2.0 Total Bilirubin AST ALT Alkaline Phosphatase Troponin I 0.245 H B-Natriuretic Peptide Total Protein Albumin Globulin Albumin/Globulin Ratio Procalcitonin 0.10 H Urine Color Urine Clarity Urine pH Ur Specific [place] Urine Protein Urine Glucose (UA) Urine Ketones Urine Occult Blood Urine Nitrite Urine Bilirubin Urine Urobilinogen Ur Leukocyte Esterase Urine RBC Urine WBC Ur Squamous Epith Cells Ur Transition Epith Cell Ur Renal Epithelial Cell Amorphous Sediment Urine Bacteria Hyaline Casts Urine Mucus Digoxin COVID-19 (JUDY) MRSA (PCR) POC Glucose Blood Type Antibody Screen 10/19/20 10/19/20 10/19/20 20:25 21:35 23:47 WBC RBC Hgb Hct MCV MCH MCHC RDW Std Deviation RDW Coeff of Shashank Plt Count MPV Immature Gran % (Auto) Neut % (Auto) Lymph % (Auto) Morgan % (Auto) Eos % (Auto) Baso % (Auto) Absolute Neuts (auto) Absolute Lymphs (auto) Nucleated RBC % PT INR APTT Sodium Potassium Chloride Carbon Dioxide Anion Gap BUN Creatinine Estim Creat Clear Calc Est GFR (MDRD) Af Amer Est GFR (MDRD) Non-Af BUN/Creatinine Ratio Glucose Lactic Acid Calcium Magnesium Total Bilirubin AST ALT Alkaline Phosphatase Troponin I B-Natriuretic Peptide Total Protein Albumin Globulin Albumin/Globulin Ratio Procalcitonin Urine Color Yellow Urine Clarity Sl. Cloudy Urine pH 5.0 Ur Specific [place] 1.020 Urine Protein 100 H Urine Glucose (UA) Normal Urine Ketones Negative Urine Occult Blood 25 H Urine Nitrite Negative Urine Bilirubin 1 H Urine Urobilinogen 1 H Ur Leukocyte Esterase 100 H Urine RBC 0-5 SEEN Urine WBC 10-25 SEEN Ur Squamous Epith Cells 0-5 SEEN Ur Transition Epith Cell 0-5 SEEN Ur Renal Epithelial Cell 0-5 SEEN Amorphous Sediment 2+ Urine Bacteria 0 SEEN Hyaline Casts 25-50 SEEN Urine Mucus 0 SEEN Digoxin COVID-19 (JUDY) MRSA (PCR) Negative POC Glucose Blood Type A NEGATIVE Antibody Screen NEGATIVE 10/20/20 10/20/20 10/20/20 01:14 01:20 01:34 WBC RBC Hgb 8.5 L Hct 27.9 L MCV MCH MCHC RDW Std Deviation RDW Coeff of Shashank Plt Count MPV Immature Gran % (Auto) Neut % (Auto) Lymph % (Auto) Morgan % (Auto) Eos % (Auto) Baso % (Auto) Absolute Neuts (auto) Absolute Lymphs (auto) Nucleated RBC % PT INR APTT Sodium Potassium Chloride Carbon Dioxide Anion Gap BUN Creatinine Estim Creat Clear Calc Est GFR (MDRD) Af Amer Est GFR (MDRD) Non-Af BUN/Creatinine Ratio Glucose Lactic Acid Calcium Magnesium Total Bilirubin AST ALT Alkaline Phosphatase Troponin I B-Natriuretic Peptide Total Protein Albumin Globulin Albumin/Globulin Ratio Procalcitonin Urine Color Urine Clarity Urine pH Ur Specific [place] Urine Protein Urine Glucose (UA) Urine Ketones Urine Occult Blood Urine Nitrite Urine Bilirubin Urine Urobilinogen Ur Leukocyte Esterase Urine RBC Urine WBC Ur Squamous Epith Cells Ur Transition Epith Cell Ur Renal Epithelial Cell Amorphous Sediment Urine Bacteria Hyaline Casts Urine Mucus Digoxin COVID-19 (JUDY) Not Detected MRSA (PCR) POC Glucose 85 Blood Type Antibody Screen 10/20/20 10/20/20 10/20/20 01:34 04:45 04:45 WBC 10.5 RBC 2.96 L Hgb 8.5 L Hct 28.1 L MCV 94.9 H MCH 28.7 MCHC 30.2 L RDW Std Deviation 56.8 H RDW Coeff of Shashank 16.1 H Plt Count 266 MPV 10.6 Immature Gran % (Auto) 0.400 Neut % (Auto) 76.0 H Lymph % (Auto) 14.7 L Morgan % (Auto) 8.6 Eos % (Auto) 0.0 Baso % (Auto) 0.3 Absolute Neuts (auto) 8.0 H Absolute Lymphs (auto) 1.54 Nucleated RBC % 0 PT INR APTT Sodium 139 Potassium 4.8 Chloride 106 Carbon Dioxide 28.0 Anion Gap 5 BUN 29 H Creatinine 1.74 H Estim Creat Clear Calc 30.60 Est GFR (MDRD) Af Amer 49 L Est GFR (MDRD) Non-Af 40 L BUN/Creatinine Ratio 16.7 Glucose 126 H Lactic Acid 1.3 Calcium 8.3 L Magnesium Total Bilirubin 0.90 AST 13 L ALT 17 Alkaline Phosphatase 76 Troponin I B-Natriuretic Peptide Total Protein 5.5 L Albumin 2.4 L Globulin 3.1 Albumin/Globulin Ratio 0.8 L Procalcitonin Urine Color Urine Clarity Urine pH Ur Specific [place] Urine Protein Urine Glucose (UA) Urine Ketones Urine Occult Blood Urine Nitrite Urine Bilirubin Urine Urobilinogen Ur Leukocyte Esterase Urine RBC Urine WBC Ur Squamous Epith Cells Ur Transition Epith Cell Ur Renal Epithelial Cell Amorphous Sediment Urine Bacteria Hyaline Casts Urine Mucus Digoxin COVID-19 (JUDY) MRSA (PCR) POC Glucose Blood Type Antibody Screen 10/20/20 10/20/20 10/20/20 04:45 06:56 08:12 WBC RBC Hgb Hct MCV MCH MCHC RDW Std Deviation RDW Coeff of Shashank Plt Count MPV Immature Gran % (Auto) Neut % (Auto) Lymph % (Auto) [place] % (Auto) Eos % (Auto) Baso % (Auto) Absolute Neuts (auto) Absolute Lymphs (auto) Nucleated RBC % PT INR APTT Sodium Potassium Chloride Carbon Dioxide Anion Gap BUN Creatinine Estim Creat Clear Calc Est GFR (MDRD) Af Amer Est GFR (MDRD) Non-Af BUN/Creatinine Ratio Glucose Lactic Acid Calcium Magnesium Total Bilirubin AST ALT Alkaline Phosphatase Troponin I 0.227 H 0.195 H B-Natriuretic Peptide Total Protein Albumin Globulin Albumin/Globulin Ratio Procalcitonin Urine Color Urine Clarity Urine pH Ur Specific [place] Urine Protein Urine Glucose (UA) Urine Ketones Urine Occult Blood Urine Nitrite Urine Bilirubin Urine Urobilinogen Ur Leukocyte Esterase Urine RBC Urine WBC Ur Squamous Epith Cells Ur Transition Epith Cell Ur Renal Epithelial Cell Amorphous Sediment Urine Bacteria Hyaline Casts Urine Mucus Digoxin COVID-19 (JUDY) MRSA (PCR) POC Glucose 98 Blood Type Antibody Screen 10/20/20 10/20/20 10/20/20 11:07 11:08 17:06 WBC RBC Hgb Hct MCV MCH MCHC RDW Std Deviation RDW Coeff of Shashank Plt Count MPV Immature Gran % (Auto) Neut % (Auto) Lymph % (Auto) [place] % (Auto) Eos % (Auto) Baso % (Auto) Absolute Neuts (auto) Absolute Lymphs (auto) Nucleated RBC % PT INR APTT Sodium Potassium Chloride Carbon Dioxide Anion Gap BUN Creatinine Estim Creat Clear Calc Est GFR (MDRD) Af Amer Est GFR (MDRD) Non-Af BUN/Creatinine Ratio Glucose Lactic Acid Calcium Magnesium Total Bilirubin AST ALT Alkaline Phosphatase Troponin I 0.201 H B-Natriuretic Peptide Total Protein Albumin Globulin Albumin/Globulin Ratio Procalcitonin Urine Color Urine Clarity Urine pH Ur Specific [place] Urine Protein Urine Glucose (UA) Urine Ketones Urine Occult Blood Urine Nitrite Urine Bilirubin Urine Urobilinogen Ur Leukocyte Esterase Urine RBC Urine WBC Ur Squamous Epith Cells Ur Transition Epith Cell Ur Renal Epithelial Cell Amorphous Sediment Urine Bacteria Hyaline Casts Urine Mucus Digoxin COVID-19 (JUDY) MRSA (PCR) POC Glucose 126 H 164 H Blood Type Antibody Screen 10/20/20 10/21/20 10/21/20 23:32 03:50 03:50 WBC 9.0 RBC 2.91 L Hgb 8.3 L Hct 27.5 L MCV 94.5 H MCH 28.5 MCHC 30.2 L RDW Std Deviation 55.5 H RDW Coeff of Shashank 16.1 H Plt Count 253 MPV 11.2 Immature Gran % (Auto) 0.200 Neut % (Auto) 76.7 H Lymph % (Auto) 14.5 L [place] % (Auto) 8.0 Eos % (Auto) 0.0 Baso % (Auto) 0.6 Absolute Neuts (auto) 6.9 Absolute Lymphs (auto) 1.31 Nucleated RBC % 0 PT INR APTT Sodium 140 Potassium 4.2 Chloride 106 Carbon Dioxide 31.0 Anion Gap 3 L BUN 29 H Creatinine 1.86 H Estim Creat Clear Calc 28.62 Est GFR (MDRD) Af Amer 45 L Est GFR (MDRD) Non-Af 37 L BUN/Creatinine Ratio 15.6 Glucose 157 H Lactic Acid Calcium 8.3 L Magnesium Total Bilirubin AST ALT Alkaline Phosphatase Troponin I B-Natriuretic Peptide Total Protein Albumin Globulin Albumin/Globulin Ratio Procalcitonin Urine Color Urine Clarity Urine pH Ur Specific [place] Urine Protein Urine Glucose (UA) Urine Ketones Urine Occult Blood Urine Nitrite Urine Bilirubin Urine Urobilinogen Ur Leukocyte Esterase Urine RBC Urine WBC Ur Squamous Epith Cells Ur Transition Epith Cell Ur Renal Epithelial Cell Amorphous Sediment Urine Bacteria Hyaline Casts Urine Mucus Digoxin COVID-19 (JUDY) MRSA (PCR) POC Glucose 199 H Blood Type Antibody Screen 10/21/20 05:42 WBC RBC Hgb Hct MCV MCH MCHC RDW Std Deviation RDW Coeff of Shashank Plt Count MPV Immature Gran % (Auto) Neut % (Auto) Lymph % (Auto) [place] % (Auto) Eos % (Auto) Baso % (Auto) Absolute Neuts (auto) Absolute Lymphs (auto) Nucleated RBC % PT INR APTT Sodium Potassium Chloride Carbon Dioxide Anion Gap BUN Creatinine Estim Creat Clear Calc Est GFR (MDRD) Af Amer Est GFR (MDRD) Non-Af BUN/Creatinine Ratio Glucose Lactic Acid Calcium Magnesium Total Bilirubin AST ALT Alkaline Phosphatase Troponin I B-Natriuretic Peptide Total Protein Albumin Globulin Albumin/Globulin Ratio Procalcitonin Urine Color Urine Clarity Urine pH Ur Specific [place] Urine Protein Urine Glucose (UA) Urine Ketones Urine Occult Blood Urine Nitrite Urine Bilirubin Urine Urobilinogen Ur Leukocyte Esterase Urine RBC Urine WBC Ur Squamous Epith Cells Ur Transition Epith Cell Ur Renal Epithelial Cell Amorphous Sediment Urine Bacteria Hyaline Casts Urine Mucus Digoxin COVID-19 (JUDY) MRSA (PCR) POC Glucose 167 H Blood Type Antibody Screen Microbiology 10/19/20 21:35 Urine, Clean Catch Urine Culture - Preliminary Gram negative jones 10/20/20 01:20 Mucosa - Nasopharyngeal Respiratory Panel (PCR) - Final 10/19/20 21:35 Urine Catheter - Catheter Legionella Antigen - Final 10/19/20 21:35 Urine Catheter - Zhang Streptococcus pneumoniae Antigen (M - Final Clinical Impression(s) from Imaging Studies Chest X-Ray 10/19/20 20:10 IMPRESSION: Mild to moderate CHF Electronically Signed: Vargas Johnson MD at 21:26 EST , Service support , Chest X-Ray 10/19/20 22:41 IMPRESSION: Adequate position of newly placed right IJ central venous catheter without evidence of complications from placement of the catheter.. at 2326 Reported and signed by: Mil Rader MD Electronically Signed: Mil Rader MD at 23:25 EST Tel , Service support , Chest X-Ray 10/20/20 05:55 IMPRESSION: No change. Left basilar lung disease and pleural effusions. at 0519 Reported and signed by: Mil Raedr MD Electronically Signed: Mil Rader MD at 5:18 EST Tel , Service support , Medical Necessity - Tobacco Use Smoking Status: Never smoker Tobacco Use: Non-smoker Assessment/Plan All Active Problems (Last Reviewed 09/26/20 @ 08:00 by Nilsa Cole) Septic shock (Acute) Pneumonia (Acute) Debility (Acute) Nausea & vomiting (Acute) Acute kidney injury (Acute) Acute on chronic systolic congestive heart failure (Acute) Acute respiratory failure with hypoxia (Acute) Atrial fibrillation with RVR (Acute) Edema (Acute) Nausea (Acute) Elevated troponin (Acute 08/09/20) Atrial fibrillation with rapid ventricular response (Acute 08/09/20) Acute on chronic systolic and diastolic heart failure, NYHA class 2 (Acute) Acute kidney injury superimposed on chronic kidney disease (Acute) Hypotension (Acute) Acute respiratory failure with hypoxemia (Resolved) Amiodarone toxicity (Resolved) Dyspnea (Resolved) Dyspnea on exertion (Resolved) Nausea and vomiting (Resolved) Shortness of breath (Resolved) RECOMMENDATIONS: 1. Wean Levophed and titrate to a systolic blood pressure at or above 90 mmHg. 2. Wean supplemental oxygen to maintain saturations at or above 90%. 3. Encourage incentive spirometer use and mobilize patient as tolerated. 4. Continue antimicrobials, pending finalized infectious work-up. IMPRESSIONS: 1. Acute hypoxemic respiratory failure The patient reportedly does not utilize supplemental oxygen at his baseline. I do suspect that his acute respiratory failure was likely secondary to decompensated heart failure and/or underlying pneumonia. His oxygenation status is currently stable. Plan to continue to wean supplemental oxygen to maintain saturations at or above 90%. The patient will remain on empiric antimicrobials for now. Encourage incentive spirometer use and mobilize patient as tolerated. I would recommend that the patient's diuretics be held for now, given renal function and hemodynamic instability. 2. Septic shock The patient has a baseline low systolic pressure around 90 mmHg. Appears to be a urinary tract source of infections with gram-negative rods isolated on culture. The patient will be continued on antimicrobials as ordered. Continue to wean Levophed as tolerated to maintain a systolic blood pressure at or above 90 mmHg. 3. Paroxysmal atrial fibrillation/decompensated heart failure/coronary artery disease status post CABG Continue current medical management. Cardiology is currently following. 4. Recent GI bleed/anemia Continue PPI therapy. Monitor H&H daily with plans to transfuse if hemoglobin drops below 7 g/dL. 5. Advanced age/diabetes mellitus/chronic kidney disease/GERD/history of prostate CA Complicates care, management, recovery and prognosis. Continue home medications as indicated. TIME: 33 minutes of critical care time, independent of procedures, was spent addressing the patient's acute hypoxemic respiratory failure, septic shock, paroxysmal atrial fibrillation, anemia, review of all data and collaboration with the care team. [id number]) [phone] [id number] Critical care first hour
--- NOTE | 2020-10-21 07:38 | PN_ITS ---
Patient Problems: Active and Suspected Problems (Last Reviewed 09/26/20 @ 08:00 by Nilsa Cole) Acute on chronic systolic congestive heart failure (Acute) Acute respiratory failure with hypoxia (Acute) Atrial fibrillation with RVR (Acute) Hypotension (Acute) Reason for Visit: Acute congestive heart failure Septic shock Subjective: Remains in the ICU on Levophed. Urine culture so far positive for Serratia Objective: GENERAL: cooperative HEENT: Atraumatic; EYES; Anicteric, Normal Conjunctiva NECK; supple, normal thyroid, RESPIRATORY: Diminished to auscultation CARDIOVASCULAR: Irregular S1-S2 GI: soft, normoactive bowel sounds, : No Renal angle tenderness; EXTREMITIES: No edema, no clubbing, MUSCULOSKELETAL: no muscle waisting NEURO: Awake; no lateralizing signs. SKIN: No Rash PSYCH; Flat affect Vitals/I&O's: Vital Signs Temp Pulse Resp BP Pulse Ox 98.4 F 83 14 102/61 100 10/21/20 07:00 10/21/20 07:00 10/21/20 07:00 10/21/20 07:00 10/21/20 07:00 Oxygen Flow Rate (L/min) 2 Oxygen Delivery Method Nasal Cannula Weight: 66.088 kg Body Mass Index (BMI) 21.5 Intake and Output for Last 24 Hours 10/19/20 10/20/20 10/21/20 23:59 23:59 23:59 Intake Total 515.98 / 515.98 2124.56 / 2214.56 293.49 / 293.49 Output Total 2480 / 2755 675 / 675 Balance 515.98 / 515.98 -355.44 / -540.44 -381.51 / -381.51 Microbiology Past 72 Hours 10/19/20 21:35 Urine, Clean Catch Urine Culture - Preliminary Gram negative jones 10/20/20 01:20 Mucosa - Nasopharyngeal Respiratory Panel (PCR) - Final 10/19/20 21:35 Urine Catheter - Catheter Legionella Antigen - Final 10/19/20 21:35 Urine Catheter - Zhang Streptococcus pneumoniae Antigen (M - Final Laboratory Results 10/20/20 01:20: COVID-19 (JUDY) Not Detected 10/20/20 04:45: Troponin I 0.227 H 10/20/20 08:12: Troponin I 0.195 H 10/20/20 11:07: POC Glucose 126 H 10/20/20 11:08: Troponin I 0.201 H 10/20/20 17:06: POC Glucose 164 H 10/20/20 23:32: POC Glucose 199 H 10/21/20 03:50: WBC 9.0, RBC 2.91 L, Hgb 8.3 L, Hct 27.5 L, MCV 94.5 H, MCH 28.5, MCHC 30.2 L, RDW Std Deviation 55.5 H, RDW Coeff of Shashank 16.1 H, Plt Count 253, MPV 11.2, Immature Gran % (Auto) 0.200, Neut % (Auto) 76.7 H, Lymph % (Auto) 14.5 L, [place] % (Auto) 8.0, Eos % (Auto) 0.0, Baso % (Auto) 0.6, Absolute Neuts (auto) 6.9, Absolute Lymphs (auto) 1.31, Nucleated RBC % 0 10/21/20 03:50: Sodium 140, Potassium 4.2, Chloride 106, Carbon Dioxide 31.0, Anion Gap 3 L, BUN 29 H, Creatinine 1.86 H, Estim Creat Clear Calc 28.62, Est GFR (MDRD) Af Amer 45 L, Est GFR (MDRD) Non-Af 37 L, BUN/Creatinine Ratio 15.6, Glucose 157 H, Calcium 8.3 L 10/21/20 05:42: POC Glucose 167 H Current Medications Acetaminophen (Acetaminophen 650 Mg Suppository) 650 mg RECTAL Q4H PRN PRN PRN Reason: Pain Score 1-10/Temp > 100.7 F Acetaminophen (Acetaminophen 325 Mg Tablet) 650 mg PO Q6H PRN PRN PRN Reason: Pain Score 1-10/Temp > 100.7 F Al Hydroxide/Mg Hydroxide (Mag Hydrox/Al Hydrox/Simeth 30 Ml Udc) 30 ml PO Q6H PRN PRN PRN Reason: Gastric Burning Albuterol Sulfate (Albuterol 2.5 Mg/3 Ml Vial.Neb.) 2.5 mg INHALATION Q2H PRN PRN PRN Reason: Dyspnea, wheezing Atorvastatin Calcium (Atorvastatin Calcium 20 Mg Tablet) 20 mg PO QHS [facility] Last Admin: 10/20/20 21:28 Dose: 20 mg Documented by: Clopidogrel Bisulfate (Clopidogrel Bisulfate 75 Mg Tablet) 75 mg PO DAILY [facility] Last Admin: 10/20/20 08:51 Dose: 75 mg Documented by: Dextrose (Dextrose 50%-Water 25 Gm/50 Ml Disp.Syrin) 0 gm IV X1 PRN; Protocol PRN Reason: Hypoglycemia Digoxin (Digoxin 125 Mcg Tablet) 62.5 mcg PO MoFr@1000 [facility] Glucagon (Glucagon 1 Mg/Ml Syringe) 1 mg IM .X1 PRN PRN Reason: Hypoglycemia Guaifenesin (Guaifenesin 10 Ml Udc (200mg/10ml)) 10 ml PO Q4H PRN PRN PRN Reason: COUGH Hydralazine HCl (Hydralazine 20 Mg/Ml Vial) 10 mg IV Q4H PRN PRN PRN Reason: SBP > 160 Norepinephrine Bitartrate 8 mg (/ Sodium Chloride) 250 mls @ 9.375 mls/hr CONT INF .[id number] [facility]; Protocol Last Titration: 10/21/20 07:00 Dose: 5 mcg/min, 9.4 mls/hr Documented by: Piperacillin Sod/Tazobactam (Sod 3.375 gm/ Sodium Chloride) 50 mls @ 12.5 mls/hr IV Q8 [facility] Last Infusion: 10/21/20 07:00 Dose: 12.5 mls/hr Documented by: Sodium Chloride () 250 mls @ 15 mls/hr IV .[id number] PRN PRN Reason: Saline Flush Last Infusion: 10/21/20 07:00 Dose: 0 mls/hr Documented by: Sodium Chloride () 250 mls @ 15 mls/hr IV .[id number] PRN PRN Reason: Additional IVPB Infusion Insulin Human Lispro (Insulin Lispro 100 Unit/Ml Insuln.Pen) 0 unit SC ACHS [facility]; Protocol Magnesium Hydroxide (Magnesium Hydroxide 30 Ml Udc) 30 ml PO DAILY PRN PRN PRN Reason: Constipation Nitroglycerin (Nitroglycerin (Inpatient Use) 0.4 Mg Tab.Subl) 0.4 mg SUBLINGUAL Q5M PRN PRN Reason: CARDIAC/CHEST PAIN Nutritional Formula (Lactose Free) (Glucerna Shake 120 Ml Liquid) 120 ml PO 4X/DAY [facility] Last Admin: 10/20/20 21:28 Dose: Not Given Documented by: Ondansetron HCl (Ondansetron 4 Mg/2 Ml Vial) 4 mg IV Q8H PRN PRN PRN Reason: NAUSEA/VOMITING Oxycodone HCl (Oxycodone 5 Mg Tablet) 5 mg PO Q4H PRN PRN PRN Reason: Pain Score 4-5 Pantoprazole Sodium (Pantoprazole Sodium 40 Mg Tablet) 40 mg PO BID [facility] Last Admin: 10/20/20 21:28 Dose: 40 mg Documented by: Potassium Chloride (Potassium Chloride 20 Meq Tablet) 20 meq PO DAILY [facility] Last Admin: 10/20/20 08:50 Dose: 20 meq Documented by: Prochlorperazine Edisylate (Prochlorperazine 10 Mg/2 Ml Vial) 5 mg IV Q4H PRN PRN PRN Reason: Breakthrough Nausea/Vomiting Psyllium Hydrophilic Mucilloid (Psyllium 1 Packet) 1 packet PO DAILY PRN PRN PRN Reason: Constipation Senna/Docusate Sodium (Senna/Docusate Sodium 1 Tablet) 2 tablet PO BID PRN PRN PRN Reason: Constipation Sodium Chloride (0.9% Saline Lock 10 Ml Syringe) 10 - 40 ml IV UD PRN PRN Reason: SALINE FLUSH Throat Lozenges (Benzocaine/Menthol 1 Lozenge) 1 lozenge MUCOUS MEM Q2H PRN PRN PRN Reason: SORE THROAT STROKE Vital Signs/Narrative: Vital Signs Temp Pulse Resp BP Pulse Ox 10/21/20 07:00 98.4 F 83 14 102/61 100 10/21/20 06:00 98.5 F 94 16 103/54 L 99 10/21/20 05:00 98.6 F 78 14 104/58 L 100 10/21/20 04:00 98.6 F 94 19 H 99/55 L 98 Medical Necessity - Tobacco Use Smoking Status: Never smoker Tobacco Use: Non-smoker Assessment/Plan All Active Problems (Last Reviewed 09/26/20 @ 08:00 by Nilsa Cole) Septic shock (Acute) Pneumonia (Acute) Debility (Acute) Nausea & vomiting (Acute) Acute kidney injury (Acute) Acute on chronic systolic congestive heart failure (Acute) Acute respiratory failure with hypoxia (Acute) Atrial fibrillation with RVR (Acute) Edema (Acute) Nausea (Acute) Elevated troponin (Acute 08/09/20) Atrial fibrillation with rapid ventricular response (Acute 08/09/20) Acute on chronic systolic and diastolic heart failure, NYHA class 2 (Acute) Acute kidney injury superimposed on chronic kidney disease (Acute) Hypotension (Acute) Acute respiratory failure with hypoxemia (Resolved) Amiodarone toxicity (Resolved) Dyspnea (Resolved) Dyspnea on exertion (Resolved) Nausea and vomiting (Resolved) Shortness of breath (Resolved) Patient is an 80-year-old gentleman with multiple comorbidities discharged from [facility] following admission for GI bleed presented to the emergency department with progressive generalized weakness. Imaging studies obtained on admission was consistent with CHF admitted to the safe care unit for subsequent management 1. Acute hypoxic respiratory failure ?Secondary to decompensated congestive heart failure admitted to the intensive care unit placed on noninvasive ventilation BiPAP with consultation placed to pulmonary medicine 2. Acute on chronic congestive heart failure with reduced ejection fraction of 30% ?Patient presented with acute respiratory failure admitted to the intensive care unit, started on Lasix, fluid restriction, daily input and output, daily weights, ?10/21/2020. Cautious with diuresis given patient relatively low blood pressure 3. Elevated troponin ?Secondary to demand ischemia from above 4. Septic shock secondary to acute cystitis ?10/21/2020 patient was started on Zosyn and pressors on admission cultures sent came back positive for Serratia antibiotic subsequently adjusted started on Levaquin Microbiology 10/19/20 21:35 Urine Culture - Final Urine, Clean Catch Serratia marcescens 5. Dyslipidemia -Patient is on statin therapy, continued at home dose 6. Diabetes mellitus type II - Controlled/uncontrolled, patient's oral hypoglycemics held. Placed on long acting insulin, Accu-Cheks a.c. and at bedtime and covered with sliding scale insulin 7. Paroxysmal A. fib ?Patient presented with A. fib with RVR, rate is now controlled; patient was on apixaban held in view of his recent GI bleed 8. Anemia - Secondary to chronic disorder as well as acute on chronic blood loss from GI bleed monitoring H&H and transfuse if patient becomes symptomatic or hemoglobin falls below 7 9. Coronary artery disease ?Status post CABG with subsequent ischemic cardiomyopathy with EF of 30% 10. Chronic kidney disease stage III ?Kidney function at baseline 11. Hyperkalemia ?Potassium levels improved with diuresis 12. 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 Essential hypertension ?Blood pressure relatively low antihypertensives on hold 14. Depression with anxiety ?Patient is on Cymbalta 15. DVT prophylaxis ?Held of chemoprophylaxis in view of patient recent GI bleed Inpatient E&M: 52450 Subs Hosp L3
--- NOTE | 2020-10-21 07:44 | PCM.PN.CARD ---
Subjectve: Patient seen and evaluated. Feels somewhat better. Had to be started on Levophed again last night. Objective: Vital Signs Temp Pulse Resp BP Pulse Ox 98.4 F 83 14 102/61 100 10/21/20 07:00 10/21/20 07:00 10/21/20 07:00 10/21/20 07:00 10/21/20 07:00 Oxygen Flow Rate (L/min) 2 Oxygen Delivery Method Nasal Cannula Weight: 145 lb 11.2 oz Body Mass Index (BMI) 21.5 Intake and Output for Last 24 Hours 10/19/20 10/20/20 10/21/20 23:59 23:59 23:59 Intake Total 515.98 / 515.98 2124.56 / 2214.56 293.49 / 293.49 Output Total 2480 / 2755 675 / 675 Balance 515.98 / 515.98 -355.44 / -540.44 -381.51 / -381.51 General: Awake, Alert, Oriented x 3 HEENT: PERRL, EOMI, Sclera Non Icteric Neck: Supple, Good ROM, No Lymph Node Enlargement Lungs: Clear to auscultation Cardiovascular: Irregular Rhythm, Normal S1, Normal S2, No Murmurs, No Rubs, No Gallops Vascular: No Carotid Bruits, Normal Femoral Pulses, Normal Radial Pulses, Normal Dorsalis Pedal Pulse, Normal Posterior Tibial Pulses Abdomen: Bowel Sounds Present, Soft, Non Tender, No HSM, No Organomegaly Extremities: No Cyanosis, No Clubbing, Bilateral Edema +1 Neurological: No Focal Motor or Sensory Deficit 10/20/20 04:45: Troponin I 0.227 H 10/20/20 08:12: Troponin I 0.195 H 10/20/20 11:08: Troponin I 0.201 H 10/21/20 03:50: WBC 9.0, RBC 2.91 L, Hgb 8.3 L, Hct 27.5 L, MCV 94.5 H, MCH 28.5, MCHC 30.2 L, Plt Count 253, MPV 11.2, Immature Gran % (Auto) 0.200, Neut % (Auto) 76.7 H, Lymph % (Auto) 14.5 L, [place] % (Auto) 8.0, Eos % (Auto) 0.0, Baso % (Auto) 0.6, Absolute Neuts (auto) 6.9, Nucleated RBC % 0 10/21/20 03:50: Sodium 140, Potassium 4.2, Chloride 106, Carbon Dioxide 31.0, Anion Gap 3 L, BUN 29 H, Creatinine 1.86 H, Est GFR (MDRD) Af Amer 45 L, Est GFR (MDRD) Non-Af 37 L, BUN/Creatinine Ratio 15.6, Glucose 157 H, Calcium 8.3 L Rhythm: EKG: ECHO: Stress Test: Cardiac Cath: PCI: CT Surgery: Holter monitor: EPS: PPM: CXR: Chest CT Scan: Medical Necessity - Tobacco Use Smoking Status: Never smoker Tobacco Use: Non-smoker Assessment/Plan 1. Paroxysmal atrial fibrillation I48.0 Patient is Micra pacemaker which appears to be functioning well. He is on a beta-kelsey which should be continued once his blood pressure is stable. He has tolerated digoxin but at a higher dose he gets significantly nauseated. I did suggest that due to his renal dysfunction we put him on digoxin 0.0625 mg twice a week. His digoxin level in the emergency room was noted to be normal. He can have diltiazem added if his blood pressure improves. Due to his significant anemia I do not think that he is a candidate for anticoagulation. We will hold off on cardioversion at this time. 2. 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 We will continue to monitor this with routine/scheduled follow-ups. 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 3. Atherosclerosis of [place] coronary artery of [place] heart with angina pectoris I25.119 Plan His most recent heart catheterization showed patency of bypass grafts. He denies any chest, arm, jaw, or neck discomfort suggestive of angina. His shortness of breath at this time is thought related to fluid volume overload. His fatigue is thought to be related to medications plus or minus atrial fibrillation. We will continue current medication and continue to monitor. Comprehensive Metabolic Profil 10/09/20 CBC W/Diff, Automated 10/09/20 4. H/O coronary artery bypass surgery Z95.1 CABG x 4: COLES-LAD, SVG-D1, SVG to proximal end of SVG to diagonal going to OM 2, and SVG-RPDA 10/30/16 as noted above his bypass grafts are noted to be patent and I will not recommend that we make any changes with respect to this. 5. Ischemic cardiomyopathy with systolic congestive heart failure I25.5 Plan His most recent heart catheterization in July 2020 showed an ejection fraction of 30%. Patient's BNP upon admission in August 2020 was greater than 5000. He does acknowledge orthopnea. He still has a small amount of pedal edema He does not appear to be a candidate for a biventricular defibrillator but this may be what may need to be considered. His blood pressure has also not been optimal to allow as to use Entresto and/or significant diuretics. We will continue Levophed for now. I do not think that he is a candidate for long-term dobutamine. After blood pressure improves will consider lower dose beta-kelsey shorter acting 6. Essential hypertension 7. Hyperlipidemia, unspecified hyperlipidemia type E78.5 Plan He is currently not on cholesterol lowering medication. He will continue risk factor and lifestyle modification. His clinical condition is rather guarded at this time. We will continue to optimize his medical therapy with rate control. Thank you for allowing me to participate in the care of your patient. Please don't hesitate to call if any issues arise.
[2020-10-21 09:26] LABS: Bedside Glucose 143 mg/dL (70-110)
[2020-10-21] MEDS: Pantoprazole Sodium 40 MG Tablet PO ×2 (09:53→21:42)
[2020-10-21] MEDS: Clopidogrel Bisulfate 75 MG Tablet PO (09:53)
[2020-10-21] MEDS: Glucerna Shake 120 ML LIQUID PO ×2 (10:15→17:30)
[2020-10-21] MEDS: levoFLOXacin IV 500 MG/100 ML BAG 100 MG IV (11:15)
[2020-10-21 12:46] LABS: Bedside Glucose 221 mg/dL (70-110)
[2020-10-21 17:25] LABS: Bedside Glucose 168 mg/dL (70-110)
[2020-10-21] MEDS: Insulin Lispro 100 UNIT/ML INSULN.PEN SC (17:37)
[2020-10-21] MEDS: TITRATION PARAMETER CHANGE 1 EACH IV (18:25)
[2020-10-21] MEDS: Atorvastatin Calcium 20 MG Tablet PO (21:42)
[2020-10-21 21:51] LABS: Bedside Glucose 140 mg/dL (70-110)
[2020-10-22] VITALS (43 sets, daily range): BP systolic 80–144; BP diastolic 43–78; PULSE 84–160; RESP 10–26; TEMP 36–37.6; O2SAT 90–100
[2020-10-22 04:07] LABS: Hematocrit 26.5 % (40-54); Hemoglobin 8.2 g/dL (13.0-16.5); Mean Corp Hgb Conc 30.9 g/dL (32-36); Mean Corpuscular Hgb 28.9 pg (27.0-32.0); Mean Corpuscular Volume 93.3 fL (80-94); Mean Platelet Vol. 10.3 fl (6.2-12.0); Platelet Count 222 K/mm3 (150-450); RBC Distribution Width CV 15.8 % (11.6-14.6); RBC Distribution Width SD 53.7 fl (35.1-43.9); Red Blood Count 2.84 M/mm3 (4.6-6.2); White Blood Count 7.4 K/mm3 (4.4-11.0)
[2020-10-22 04:23] LABS: Anion Gap 5 (5-15); BUN 24 mg/dL (7-18); Chloride 105 mmol/L (98-107); Creatinine, Serum 1.71 mg/dL (0.70-1.30); EST Glomerular Filtration Rate 41 mL/min (>60); Est Glom Filt Rate - Afr Amer 49 mL/min (>60); Estimated Creatinine Clearance 31.41 ml/min; Glucose 111 mg/dL (74-106); Magnesium 1.7 mg/dL (1.6-2.6); Potassium 3.9 mmol/L (3.5-5.1); Sodium Level 140 mmol/L (136-145)
--- NOTE | 2020-10-22 07:32 | PN.CARD_ITS ---
Subjectve: Patient seen and evaluated. Appears to be doing fairly well. Still has some rapid ventricular response. On minimal Levophed. Objective: Vital Signs Temp Pulse Resp BP Pulse Ox 98.9 F 111 H 17 92/59 L 100 10/22/20 07:00 10/22/20 07:00 10/22/20 07:00 10/22/20 07:00 10/22/20 07:00 Oxygen Flow Rate (L/min) 2 Oxygen Delivery Method Nasal Cannula Weight: 147 lb Body Mass Index (BMI) 21.5 Intake and Output for Last 24 Hours 10/20/20 10/21/20 10/22/20 23:59 23:59 23:59 Intake Total 2124.56 / 2214.56 2070.83 / 2076.43 37.60 / 37.60 Output Total 2480 / 2755 2525 / 2525 400 / 400 Balance -355.44 / -540.44 -454.17 / -448.57 -362.40 / -362.40 General: Awake, Alert, Oriented x 3 HEENT: PERRL, EOMI, Sclera Non Icteric Neck: Supple, Good ROM, No Lymph Node Enlargement Lungs: Clear to auscultation Cardiovascular: Irregular Rhythm, Normal S1, Normal S2, No Murmurs, No Rubs, No Gallops 10/22/20 04:00: WBC 7.4, RBC 2.84 L, Hgb 8.2 L, Hct 26.5 L, MCV 93.3, MCH 28.9, MCHC 30.9 L, Plt Count 222, MPV 10.3 10/22/20 04:00: Sodium 140, Potassium 3.9, Chloride 105, Carbon Dioxide 30.0, Anion Gap 5, BUN 24 H, Creatinine 1.71 H, Est GFR (MDRD) Af Amer 49 L, Est GFR (MDRD) Non-Af 41 L, BUN/Creatinine Ratio 14.0, Glucose 111 H, Calcium 8.0 L, Magnesium 1.7 Rhythm: EKG: ECHO: Stress Test: Cardiac Cath: PCI: CT Surgery: Holter monitor: EPS: PPM: CXR: Chest CT Scan: Medical Necessity - Tobacco Use Smoking Status: Never smoker Tobacco Use: Non-smoker Assessment/Plan 1. Paroxysmal atrial fibrillation I48.0 Patient is Micra pacemaker which appears to be functioning well. He is on a beta-kelsey which should be continued once his blood pressure is stable. He has tolerated digoxin but at a higher dose he gets significantly nauseated. I did suggest that due to his renal dysfunction we put him on digoxin 0.0625 mg twice a week. His digoxin level in the emergency room was noted to be normal. Today I would administer 0.125 mg of digoxin. We may try adding small doses of metoprolol if his blood pressure improves. Due to his significant anemia I do not think that he is a candidate for anticoagulation. We will hold off on cardioversion at this time. 2. 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 We will continue to monitor this with routine/scheduled follow-ups. 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 3. Atherosclerosis of [place] coronary artery of [place] heart with angina pectoris I25.119 Plan His most recent heart catheterization showed patency of bypass grafts. He denies any chest, arm, jaw, or neck discomfort suggestive of angina. His shortness of breath at this time is thought related to fluid volume overload. His fatigue is thought to be related to medications plus or minus atrial fibrillation. We will continue current medication and continue to monitor. Comprehensive Metabolic Profil 10/09/20 CBC W/Diff, Automated 10/09/20 4. H/O coronary artery bypass surgery Z95.1 CABG x 4: COLES-LAD, SVG-D1, SVG to proximal end of SVG to diagonal going to OM 2, and SVG-RPDA 10/30/16 as noted above his bypass grafts are noted to be patent and I will not recommend that we make any changes with respect to this. 5. Ischemic cardiomyopathy with systolic congestive heart failure I25.5 Plan His most recent heart catheterization in July 2020 showed an ejection fraction of 30%. Patient's BNP upon admission in August 2020 was greater than 5000. He does acknowledge orthopnea. He still has a small amount of pedal edema He does not appear to be a candidate for a biventricular defibrillator but this may be what may need to be considered. His blood pressure has also not been optimal to allow as to use Entresto and/or significant diuretics. We will continue Levophed for now. I do not think that he is a candidate for long-term dobutamine. After blood pressure improves will consider lower dose beta-kelsey shorter acting 6. Essential hypertension 7. Hyperlipidemia, unspecified hyperlipidemia type E78.5 Plan He is currently not on cholesterol lowering medication. He will continue risk factor and lifestyle modification. His clinical condition is rather guarded at this time. We will continue to optimize his medical therapy with rate control. Thank you for allowing me to participate in the care of your patient. Please don't hesitate to call if any issues arise.
--- NOTE | 2020-10-22 07:44 | PCM.PN.INT ---
Subjective: Patient did okay overnight. Patient continues to have issues with A. fib with RVR, but this is improved when patient is resting comfortably. Patient did require supplemental oxygen overnight with sleeping. Patient overall feels subjectively unchanged compared to previous. Patient is still requiring minimal Levophed. Patient did have a skin tear the did have some mild yellow exudate per nursing that was cleaned and redressed. General: Alert, Oriented x3, Cooperative, No apparent distress, - - Flat affect with monotone speech HEENT: Atraumatic, PERRLA, EOMI, Normocephalic, - - No scleral icterus or injection noted Oral: Moist Mucosa, No Gingival or Mucosal Lesions/ Ulcerations Neck: Supple, No JVD, No Nodes, Trachea Midline Lungs: No rhonchi, No wheeze, No rales, Diminished Cardiovascular: Normal S1, Normal S2, Irregular Rate, Tachycardic Abdomen: Bowel Sounds Present, Soft, Non Tender, Non-Distended Extremities: No clubbing, No cyanosis, Edema - Bilateral lower extremities 2+ Skin: - - Dermal atrophy. Stage II decubitus ulcer and skin tear per nursing documentation Musculoskeletal: No Tenderness to Palpation of Joints or Extremities Lymphatic: No Cervical, Supraclavicular, or Inguinal Adenopathy Neurological: Cranial nerves II-XII grossly intact, Neuro grossly intact, Motor Exam 5/5 strength throughout Psych/Mental Status: Appropriate, Flat Affect Vital Signs Temp Pulse Resp BP Pulse Ox 37.2 C 111 H 17 92/59 L 100 10/22/20 07:00 10/22/20 07:00 10/22/20 07:00 10/22/20 07:00 10/22/20 07:00 Oxygen Flow Rate (L/min) 2 Oxygen Delivery Method Nasal Cannula Weight: 66.678 kg Body Mass Index (BMI) 21.5 Intake and Output for Last 24 Hours 10/20/20 10/21/20 10/22/20 23:59 23:59 23:59 Intake Total 2124.56 / 2214.56 2070.83 / 2076.43 37.60 / 37.60 Output Total 2480 / 2755 2525 / 2525 400 / 400 Balance -355.44 / -540.44 -454.17 / -448.57 -362.40 / -362.40 Labs (Last 48 Hours) 10/20/20 10/20/20 10/20/20 01:20 04:45 08:12 WBC RBC Hgb Hct MCV MCH MCHC RDW Std Deviation RDW Coeff of Shashank Plt Count MPV Immature Gran % (Auto) Neut % (Auto) Lymph % (Auto) [place] % (Auto) Eos % (Auto) Baso % (Auto) Absolute Neuts (auto) Absolute Lymphs (auto) Nucleated RBC % Sodium Potassium Chloride Carbon Dioxide Anion Gap BUN Creatinine Estim Creat Clear Calc Est GFR (MDRD) Af Amer Est GFR (MDRD) Non-Af BUN/Creatinine Ratio Glucose Calcium Magnesium Troponin I 0.227 H 0.195 H COVID-19 (JUDY) Not Detected POC Glucose 10/20/20 10/20/20 10/20/20 11:07 11:08 17:06 WBC RBC Hgb Hct MCV MCH MCHC RDW Std Deviation RDW Coeff of Shashank Plt Count MPV Immature Gran % (Auto) Neut % (Auto) Lymph % (Auto) [place] % (Auto) Eos % (Auto) Baso % (Auto) Absolute Neuts (auto) Absolute Lymphs (auto) Nucleated RBC % Sodium Potassium Chloride Carbon Dioxide Anion Gap BUN Creatinine Estim Creat Clear Calc Est GFR (MDRD) Af Amer Est GFR (MDRD) Non-Af BUN/Creatinine Ratio Glucose Calcium Magnesium Troponin I 0.201 H COVID-19 (JUDY) POC Glucose 126 H 164 H 10/20/20 10/21/20 10/21/20 23:32 03:50 03:50 WBC 9.0 RBC 2.91 L Hgb 8.3 L Hct 27.5 L MCV 94.5 H MCH 28.5 MCHC 30.2 L RDW Std Deviation 55.5 H RDW Coeff of Shashank 16.1 H Plt Count 253 MPV 11.2 Immature Gran % (Auto) 0.200 Neut % (Auto) 76.7 H Lymph % (Auto) 14.5 L [place] % (Auto) 8.0 Eos % (Auto) 0.0 Baso % (Auto) 0.6 Absolute Neuts (auto) 6.9 Absolute Lymphs (auto) 1.31 Nucleated RBC % 0 Sodium 140 Potassium 4.2 Chloride 106 Carbon Dioxide 31.0 Anion Gap 3 L BUN 29 H Creatinine 1.86 H Estim Creat Clear Calc 28.62 Est GFR (MDRD) Af Amer 45 L Est GFR (MDRD) Non-Af 37 L BUN/Creatinine Ratio 15.6 Glucose 157 H Calcium 8.3 L Magnesium Troponin I COVID-19 (JUDY) POC Glucose 199 H 10/21/20 10/21/20 10/21/20 05:42 09:23 12:24 WBC RBC Hgb Hct MCV MCH MCHC RDW Std Deviation RDW Coeff of Shashank Plt Count MPV Immature Gran % (Auto) Neut % (Auto) Lymph % (Auto) [place] % (Auto) Eos % (Auto) Baso % (Auto) Absolute Neuts (auto) Absolute Lymphs (auto) Nucleated RBC % Sodium Potassium Chloride Carbon Dioxide Anion Gap BUN Creatinine Estim Creat Clear Calc Est GFR (MDRD) Af Amer Est GFR (MDRD) Non-Af BUN/Creatinine Ratio Glucose Calcium Magnesium Troponin I COVID-19 (JUDY) POC Glucose 167 H 143 H 221 H 10/21/20 10/21/20 10/22/20 17:15 21:40 04:00 WBC 7.4 RBC 2.84 L Hgb 8.2 L Hct 26.5 L MCV 93.3 MCH 28.9 MCHC 30.9 L RDW Std Deviation 53.7 H RDW Coeff of Shashank 15.8 H Plt Count 222 MPV 10.3 Immature Gran % (Auto) Neut % (Auto) Lymph % (Auto) [place] % (Auto) Eos % (Auto) Baso % (Auto) Absolute Neuts (auto) Absolute Lymphs (auto) Nucleated RBC % Sodium Potassium Chloride Carbon Dioxide Anion Gap BUN Creatinine Estim Creat Clear Calc Est GFR (MDRD) Af Amer Est GFR (MDRD) Non-Af BUN/Creatinine Ratio Glucose Calcium Magnesium Troponin I COVID-19 (JUDY) POC Glucose 168 H 140 H 10/22/20 04:00 WBC RBC Hgb Hct MCV MCH MCHC RDW Std Deviation RDW Coeff of Shashank Plt Count MPV Immature Gran % (Auto) Neut % (Auto) Lymph % (Auto) [place] % (Auto) Eos % (Auto) Baso % (Auto) Absolute Neuts (auto) Absolute Lymphs (auto) Nucleated RBC % Sodium 140 Potassium 3.9 Chloride 105 Carbon Dioxide 30.0 Anion Gap 5 BUN 24 H Creatinine 1.71 H Estim Creat Clear Calc 31.41 Est GFR (MDRD) Af Amer 49 L Est GFR (MDRD) Non-Af 41 L BUN/Creatinine Ratio 14.0 Glucose 111 H Calcium 8.0 L Magnesium 1.7 Troponin I COVID-19 (JUDY) POC Glucose Microbiology 10/19/20 21:35 Urine, Clean Catch Urine Culture - Final Serratia marcescens 10/20/20 01:20 Mucosa - Nasopharyngeal Respiratory Panel (PCR) - Final Medical Necessity - Tobacco Use Smoking Status: Never smoker Tobacco Use: Non-smoker Assessment/Plan All Active Problems (Last Reviewed 09/26/20 @ 08:00 by Nilsa Cole) Septic shock (Acute) Pneumonia (Acute) Debility (Acute) Nausea & vomiting (Acute) Acute kidney injury (Acute) Acute on chronic systolic congestive heart failure (Acute) Acute respiratory failure with hypoxia (Acute) Atrial fibrillation with RVR (Acute) Edema (Acute) Nausea (Acute) Elevated troponin (Acute 08/09/20) Atrial fibrillation with rapid ventricular response (Acute 08/09/20) Acute on chronic systolic and diastolic heart failure, NYHA class 2 (Acute) Acute kidney injury superimposed on chronic kidney disease (Acute) Hypotension (Acute) Acute respiratory failure with hypoxemia (Resolved) Amiodarone toxicity (Resolved) Dyspnea (Resolved) Dyspnea on exertion (Resolved) Nausea and vomiting (Resolved) Shortness of breath (Resolved) RECOMMENDATIONS: 1. Wean Levophed and titrate to a systolic blood pressure at or above 90 mmHg. 2. Wean supplemental oxygen to maintain saturations at or above 90%. 3. Encourage incentive spirometer use and mobilize patient as tolerated. 4. Continue antimicrobials, pending finalized infectious work-up. 5. Mobilize as tolerated IMPRESSIONS: 1. Acute hypoxemic respiratory failure The patient reportedly does not utilize supplemental oxygen at his baseline. I do suspect that his acute respiratory failure was likely secondary to decompensated heart failure given rapid improvement. His oxygenation status is currently stable. Plan to continue to wean supplemental oxygen to maintain saturations at or above 90%. The patient will remain on empiric antimicrobials for now. Encourage incentive spirometer use and mobilize patient as tolerated. Holding on diuretics given renal function at this point. 2. Septic shock secondary to Serratia UTI and possible skin source The patient has a baseline low systolic pressure around 90 mmHg. Appears to be a urinary tract source of infections with Serratia isolated on culture. The patient will be continued on antimicrobials as ordered. Continue to wean Levophed as tolerated to maintain a systolic blood pressure at or above 90 mmHg. Patient does have some skin tears, so gram-positive's cannot be excluded as a complicating source. 3. Paroxysmal atrial fibrillation/decompensated heart failure/coronary artery disease status post CABG Continue current medical management. Cardiology is currently following. Rate is marginally controlled at this time. Attempt to wean Levophed. 4. Recent GI bleed/anemia Continue PPI therapy. Monitor H&H daily with plans to transfuse if hemoglobin drops below 7 g/dL. 5. Advanced age/diabetes mellitus/chronic kidney disease/GERD/history of prostate CA Complicates care, management, recovery and prognosis. Continue home medications as indicated. TIME: 32 minutes of critical care time, independent of procedures, was spent addressing the patient's acute hypoxemic respiratory failure, septic shock, paroxysmal atrial fibrillation, anemia, review of all data and collaboration with the care team. (5:45 AM to 6:45 AM) 9xxxx: [id number] Critical care first hour
[2020-10-22] MEDS: Digoxin 250 MCG/ML Ampul 125 MCG IV (08:14)
--- NOTE | 2020-10-22 09:41 | PCM.PROGNOTE ---
Patient Problems: Active and Suspected Problems (Last Reviewed 09/26/20 @ 08:00 by Nilsa Cole) Acute on chronic systolic congestive heart failure (Acute) Subjective: Chief complaint: Follow-up after admission for acute on chronic CHF, acute hypoxic respiratory failure, septic shock secondary to acute cystitis. Patient seen and examined. No acute events overnight. He is alert and oriented x3. He remained in A. fib with RVR. He denies any complaints. Denies dizziness or lightheadedness. Denied chest pain or shortness of breath. Denied abdominal pain, nausea or vomiting. He is afebrile, heart rate has been around 120s, blood pressure is borderline, on Levophed drip, requiring oxygen of up to 2 L. - Physical Exam Vitals/I&O's: Vital Signs Temp Pulse Resp BP Pulse Ox 98.9 F 99 14 94/57 L 92 10/22/20 09:00 10/22/20 09:15 10/22/20 09:00 10/22/20 09:15 10/22/20 09:00 Oxygen Flow Rate (L/min) 2 Oxygen Delivery Method Nasal Cannula Weight: 147 lb Body Mass Index (BMI) 21.5 Intake and Output for Last 24 Hours 10/20/20 10/21/20 10/22/20 23:59 23:59 23:59 Intake Total 2124.56 / 2214.56 2070.83 / 2076.43 43.80 / 43.80 Output Total 2480 / 2755 2525 / 2525 400 / 400 Balance -355.44 / -540.44 -454.17 / -448.57 -356.20 / -356.20 General: Alert, Oriented x3, Cooperative, No apparent distress HEENT: Atraumatic, PERRLA, EOMI, Normocephalic Oral: Moist Mucosa, No Gingival or Mucosal Lesions/ Ulcerations Neck: Supple, No JVD, Negative Carotid Bruits, Trachea Midline, Thyroid Normal Size and Texture Lungs: No wheeze, No rales, Diminished, - - Diminished with sounds bilateral, scattered rhonchi,. Cardiovascular: Normal S1, Normal S2, PMI Normal, Irregular Rate, Tachycardic Abdomen: Bowel Sounds Present, Soft, Non Tender, Non-Distended, No Hepato-splenomegaly Extremities: No clubbing, No cyanosis, Edema - ++ Edema. Skin: No rashes, No breakdown Lymphatic: No Cervical, Supraclavicular, or Inguinal Adenopathy Neurological: Cranial nerves II-XII grossly intact, Motor Exam 5/5 strength throughout Psych/Mental Status: Normal Affect, Appropriate, Alert and oriented to time, place, person, mood and affect Microbiology Past 72 Hours 10/19/20 21:35 Urine, Clean Catch Urine Culture - Final Serratia marcescens 10/20/20 01:20 Mucosa - Nasopharyngeal Respiratory Panel (PCR) - Final 10/19/20 21:35 Urine Catheter - Catheter Legionella Antigen - Final 10/19/20 21:35 Urine Catheter - Zhang Streptococcus pneumoniae Antigen (M - Final Laboratory Results 10/21/20 12:24: POC Glucose 221 H 10/21/20 17:15: POC Glucose 168 H 10/21/20 21:40: POC Glucose 140 H 10/22/20 04:00: WBC 7.4, RBC 2.84 L, Hgb 8.2 L, Hct 26.5 L, MCV 93.3, MCH 28.9, MCHC 30.9 L, RDW Std Deviation 53.7 H, RDW Coeff of Shashank 15.8 H, Plt Count 222, MPV 10.3 10/22/20 04:00: Sodium 140, Potassium 3.9, Chloride 105, Carbon Dioxide 30.0, Anion Gap 5, BUN 24 H, Creatinine 1.71 H, Estim Creat Clear Calc 31.41, Est GFR (MDRD) Af Amer 49 L, Est GFR (MDRD) Non-Af 41 L, BUN/Creatinine Ratio 14.0, Glucose 111 H, Calcium 8.0 L, Magnesium 1.7 Clinical Impression(s) from Imaging Studies Chest X-Ray 10/19/20 20:10 IMPRESSION: Mild to moderate CHF Electronically Signed: Vargas Johnson MD at 21:26 EST , Service support , Chest X-Ray 10/19/20 22:41 IMPRESSION: Adequate position of newly placed right IJ central venous catheter without evidence of complications from placement of the catheter.. at 2326 Reported and signed by: Mil Rader MD Electronically Signed: Mil Rader MD at 23:25 EST Tel , Service support , Chest X-Ray 10/20/20 05:55 IMPRESSION: No change. Left basilar lung disease and pleural effusions. at 0519 Reported and signed by: Mil Rader MD Electronically Signed: Mil Rader MD at 5:18 EST Tel , Service support , Current Medications Acetaminophen (Acetaminophen 650 Mg Suppository) 650 mg RECTAL Q4H PRN PRN PRN Reason: Pain Score 1-10/Temp > 100.7 F Acetaminophen (Acetaminophen 325 Mg Tablet) 650 mg PO Q6H PRN PRN PRN Reason: Pain Score 1-10/Temp > 100.7 F Al Hydroxide/Mg Hydroxide (Mag Hydrox/Al Hydrox/Simeth 30 Ml Udc) 30 ml PO Q6H PRN PRN PRN Reason: Gastric Burning Albuterol Sulfate (Albuterol 2.5 Mg/3 Ml Vial.Neb.) 2.5 mg INHALATION Q2H PRN PRN PRN Reason: Dyspnea, wheezing Atorvastatin Calcium (Atorvastatin Calcium 20 Mg Tablet) 20 mg PO QHS REPLACED BY [facility] Last Admin: 10/21/20 21:42 Dose: 20 mg Documented by: Clopidogrel Bisulfate (Clopidogrel Bisulfate 75 Mg Tablet) 75 mg PO DAILY REPLACED BY [facility] Last Admin: 10/21/20 09:53 Dose: 75 mg Documented by: Dextrose (Dextrose 50%-Water 25 Gm/50 Ml Disp.Syrin) 0 gm IV X1 PRN; Protocol PRN Reason: Hypoglycemia Glucagon (Glucagon 1 Mg/Ml Syringe) 1 mg IM .X1 PRN PRN Reason: Hypoglycemia Guaifenesin (Guaifenesin 10 Ml Udc (200mg/10ml)) 10 ml PO Q4H PRN PRN PRN Reason: COUGH Hydralazine HCl (Hydralazine 20 Mg/Ml Vial) 10 mg IV Q4H PRN PRN PRN Reason: SBP > 160 Norepinephrine Bitartrate 8 mg (/ Sodium Chloride) 250 mls @ 9.375 mls/hr CONT INF .[id number] REPLACED BY [facility]; Protocol Last Titration: 10/22/20 09:15 Dose: 1 mcg/min, 1.9 mls/hr Documented by: Sodium Chloride () 250 mls @ 15 mls/hr IV .[id number] PRN PRN Reason: Saline Flush Last Infusion: 10/21/20 07:00 Dose: 0 mls/hr Documented by: Sodium Chloride () 250 mls @ 15 mls/hr IV .[id number] PRN PRN Reason: Additional IVPB Infusion Levofloxacin (Levaquin Iv) 250 mg in 50 mls @ 50 mls/hr IV Q24 REPLACED BY [facility] Insulin Human Lispro (Insulin Lispro 100 Unit/Ml Insuln.Pen) 0 unit SC ACHS REPLACED BY [facility]; Protocol Last Admin: 10/22/20 07:48 Dose: Not Given Documented by: Magnesium Hydroxide (Magnesium Hydroxide 30 Ml Udc) 30 ml PO DAILY PRN PRN PRN Reason: Constipation Nitroglycerin (Nitroglycerin (Inpatient Use) 0.4 Mg Tab.Subl) 0.4 mg SUBLINGUAL Q5M PRN PRN Reason: CARDIAC/CHEST PAIN Nutritional Formula (Lactose Free) (Glucerna Shake 120 Ml Liquid) 120 ml PO 4X/DAY REPLACED BY [facility] Last Admin: 10/22/20 08:14 Dose: Not Given Documented by: Ondansetron HCl (Ondansetron 4 Mg/2 Ml Vial) 4 mg IV Q8H PRN PRN PRN Reason: NAUSEA/VOMITING Oxycodone HCl (Oxycodone 5 Mg Tablet) 5 mg PO Q4H PRN PRN PRN Reason: Pain Score 4-5 Pantoprazole Sodium (Pantoprazole Sodium 40 Mg Tablet) 40 mg PO BID REPLACED BY [facility] Last Admin: 10/21/20 21:42 Dose: 40 mg Documented by: Potassium Chloride (Potassium Chloride 20 Meq Tablet) 20 meq PO DAILY REPLACED BY [facility] Last Admin: 10/21/20 09:54 Dose: Not Given Documented by: Prochlorperazine Edisylate (Prochlorperazine 10 Mg/2 Ml Vial) 5 mg IV Q4H PRN PRN PRN Reason: Breakthrough Nausea/Vomiting Psyllium Hydrophilic Mucilloid (Psyllium 1 Packet) 1 packet PO DAILY PRN PRN PRN Reason: Constipation Senna/Docusate Sodium (Senna/Docusate Sodium 1 Tablet) 2 tablet PO BID PRN PRN PRN Reason: Constipation Sodium Chloride (0.9% Saline Lock 10 Ml Syringe) 10 - 40 ml IV UD PRN PRN Reason: SALINE FLUSH Throat Lozenges (Benzocaine/Menthol 1 Lozenge) 1 lozenge MUCOUS MEM Q2H PRN PRN PRN Reason: SORE THROAT Medical Necessity - Tobacco Use Smoking Status: Never smoker Tobacco Use: Non-smoker Assessment/Plan All Active Problems (Last Reviewed 09/26/20 @ 08:00 by Nilsa Cole) Acute respiratory failure with hypoxia (Acute) Septic shock (Acute) Acute on chronic systolic congestive heart failure (Acute) This is an 80 years old male patient presented to the emergency room because of weakness, malaise and not feeling well, found to have acute on chronic systolic congestive heart failure, acute hypoxic respiratory failure, A. fib with RVR as well as septic shock secondary to acute cystitis. #1 acute on chronic systolic CHF: Currently, patient is on IV Levophed drip because of hypotension. He is asymptomatic. Blood pressure is borderline, requiring some oxygen. He has been afebrile. He had cardiac catheterization on July 2020, showed ejection fraction of 30%. Currently, patient is not on diuretics or beta blockers. Cardiology on the case. Plan to consider starting beta-blockers and diuretics when blood pressure stabilizes. For now, we will keep same treatment. #2 acute hypoxic respiratory failure: Secondary to #1. He is requiring oxygen of up to 2 L, shortness of breath has been improving. Plan as above. #3 A. fib with RVR: Currently, heart rate has been around 110, blood pressure is borderline. He is on Levophed drip. Currently, he is not medication for rate control, not on anticoagulation. Plan to continue IV Levophed drip for low blood pressure. #4 septic shock/acute cystitis: He is on IV Levaquin and IV Levophed drip. Blood cultures pending. Urine culture revealed Serratia marcescens. Plan to continue same treatment. #5 type 2 diabetes mellitus: Blood sugar stable, continue Accu-Cheks and sliding scale. Sitagliptin/Metformin held. #6 anemia: In context of recent GI bleed. Reportedly, patient had endoscopy recently that showed no acute active bleeding. Today's hemoglobin is 8.2 g/dL. Currently, no active bleeding. Plan to monitor, transfuse if hemoglobin less than 8 g/dL. #7 stage III chronic kidney disease: Baseline creatinine has been around 1.4-2 mg/dL, today's creatinine is 1.71, stable at baseline. #8 CAD status post CABG: Stable, continue Plavix, statins. #9 status post pacemaker: This was done for chronic A. fib, patient has been in A. fib with RVR, plan as above. #10 DVT prophylaxis: SCDs. This note was generated with [employer] dictation software. It may contain incorrect words, spelling, and punctuation that were not noted in checking the note before signing. Inpatient E&M: [id number] [facility] H[facility] L3
[2020-10-22] MEDS: Insulin Lispro 100 UNIT/ML INSULN.PEN SC (10:47)
[2020-10-22] MEDS: Pantoprazole Sodium 40 MG Tablet PO ×2 (10:49→21:05)
[2020-10-22] MEDS: Clopidogrel Bisulfate 75 MG Tablet PO (10:49)
[2020-10-22 10:55] LABS: Bedside Glucose 170 mg/dL (70-110)
[2020-10-22] MEDS: Ceftriaxone 1 GM/50 ML BAG IV (12:28)
[2020-10-22] MEDS: dilTIAZem 25 MG/5 ML Vial 20 MG IV BOLUS (13:25)
--- NOTE | 2020-10-22 15:09 | NURSING ---
wound photo: left wrist
--- NOTE | 2020-10-22 16:12 | CHAPLAIN ---
Type of Pastoral Visit _x__ Initial Visit ___ Follow-up Visit ___ On-call Visit ___ General Patient Visit ___ Spiritual Assessment ___ Family Conference ___ Bereavement ___ Rapid Response ___ Code Blue ___ Other (describe below) Pastoral Care Referral From _x__ Patient ___ Family ___ Nurse ___ Physician ___ Rn Imaging ___ Motorcycle Delivery Driver ___ Other (describe below) Sacrament/Intervention _x__ Active listening ___ Anointing ___ Yarsani ___ Bereavement ___ Communion ___ [place] exploration ___ _x__ Life review _x__ Prayer ___ Reconciliation ___ Sacrament of Sick _x__ Supportive presence ___ Wedding ___ Other (describe below) Pastoral Comments patient has been seen by this atomic welder in previous admissions; pt gives update on his condition and situation; pt states that I've been in the hospital more than I wanted to be this past year and here I am again; pt concerned about his and her health; pt is orthodoxy member and person of [employer] who welcomes prayer support and visits for spiritual care
[2020-10-22 17:15] LABS: Bedside Glucose 143 mg/dL (70-110)
[2020-10-22 20:06] LABS: Bedside Glucose 122 mg/dL (70-110)
[2020-10-22] MEDS: Atorvastatin Calcium 20 MG Tablet PO (21:04)
[2020-10-23] VITALS (33 sets, daily range): BP systolic 82–112; BP diastolic 46–76; PULSE 80–136; RESP 15–26; TEMP 36.4–37.6; O2SAT 92–100
--- NOTE | 2020-10-23 00:45 | NURSING ---
Pt had a 4 beat run of vtac then pt had another 4 beat run vtac then 9 beat run of vtac. Pt sleeping at this time. bp 90/60
[2020-10-23] MEDS: 0.9% Saline Lock 10 ML Syringe IV ×3 (01:23→08:54)
[2020-10-23 03:45] LABS: Hemoglobin 7.7 g/dL (13.0-16.5); Mean Corp Hgb Conc 30.8 g/dL (32-36); Mean Corpuscular Hgb 28.9 pg (27.0-32.0); Mean Platelet Vol. 10.1 fl (6.2-12.0); Platelet Count 209 K/mm3 (150-450); RBC Distribution Width CV 15.9 % (11.6-14.6); RBC Distribution Width SD 54.1 fl (35.1-43.9); Red Blood Count 2.66 M/mm3 (4.6-6.2); White Blood Count 6.4 K/mm3 (4.4-11.0)
[2020-10-23 03:59] LABS: Anion Gap 5 (5-15); BUN 22 mg/dL (7-18); BUN/Creat Ratio 13.8 RATIO (10-20); Chloride 104 mmol/L (98-107); Creatinine, Serum 1.59 mg/dL (0.70-1.30); EST Glomerular Filtration Rate 44 mL/min (>60); Est Glom Filt Rate - Afr Amer 54 mL/min (>60); Estimated Creatinine Clearance 33.78 ml/min; Glucose 136 mg/dL (74-106); Potassium 4.1 mmol/L (3.5-5.1); Sodium Level 140 mmol/L (136-145)
[2020-10-23] MEDS: Albuterol 2.5 MG/3 ML VIAL.NEB. INHALATION (04:23)
[2020-10-23] MEDS: Metoprolol Tartrate 5 MG/5 ML Vial 2.5 MG IV (06:18)
--- NOTE | 2020-10-23 06:27 | NURSING ---
pt had a [address] jaylen yun.
--- NOTE | 2020-10-23 07:42 | PN_ITS ---
Subjective: Patient did well overnight. Levophed has been discontinued as of yesterday morning. However, patient did have significant tachycardia overnight. Patient has been saturating well on room air. No complaints this morning were reported. No active blood loss was reported. Patient did have some nonsustained V. tach noted on telemetry. General: Alert, Oriented x3, Cooperative, No apparent distress, - - No conversational dyspnea noted HEENT: Atraumatic, PERRLA, EOMI, Normocephalic, - Oral: Moist Mucosa, No Gingival or Mucosal Lesions/ Ulcerations Neck: Supple, No JVD, No Nodes, Trachea Midline Lungs: No rhonchi, No wheeze, No rales, Diminished Cardiovascular: Normal S1, Normal S2, No murmurs, Irregular Rate, No rub noted, No Gallop Abdomen: Bowel Sounds Present, Soft, Non Tender, Non-Distended Extremities: No clubbing, No cyanosis, No edema, Capillary Refill Less than 3 Seconds Skin: No rashes, No breakdown Musculoskeletal: No Tenderness to Palpation of Joints or Extremities Lymphatic: No Cervical, Supraclavicular, or Inguinal Adenopathy Neurological: Cranial nerves II-XII grossly intact, Neuro grossly intact, Motor Exam 5/5 strength throughout Psych/Mental Status: Appropriate, Flat Affect Vital Signs Temp Pulse Resp BP Pulse Ox 37.2 C 100 17 93/57 L 99 10/23/20 07:00 10/23/20 07:00 10/23/20 07:00 10/23/20 07:00 10/23/20 07:00 Oxygen Flow Rate (L/min) 2 Oxygen Delivery Method Room Air Weight: 68.22 kg Body Mass Index (BMI) 21.5 Intake and Output for Last 24 Hours 10/21/20 10/22/20 10/23/20 23:59 23:59 23:59 Intake Total 2070.83 / 2076.43 455.24 / 455.24 104 / 104 Output Total 2525 / 2525 1105 / 1105 234 / 234 Balance -454.17 / -448.57 -649.76 / -649.76 -130 / -130 Labs (Last 48 Hours) 10/21/20 10/21/20 10/21/20 09:23 12:24 17:15 WBC RBC Hgb Hct MCV MCH MCHC RDW Std Deviation RDW Coeff of Shashank Plt Count MPV Sodium Potassium Chloride Carbon Dioxide Anion Gap BUN Creatinine Estim Creat Clear Calc Est GFR (MDRD) Af Amer Est GFR (MDRD) Non-Af BUN/Creatinine Ratio Glucose Calcium Magnesium POC Glucose 143 H 221 H 168 H 10/21/20 10/22/20 10/22/20 21:40 04:00 04:00 WBC 7.4 RBC 2.84 L Hgb 8.2 L Hct 26.5 L MCV 93.3 MCH 28.9 MCHC 30.9 L RDW Std Deviation 53.7 H RDW Coeff of Shashank 15.8 H Plt Count 222 MPV 10.3 Sodium 140 Potassium 3.9 Chloride 105 Carbon Dioxide 30.0 Anion Gap 5 BUN 24 H Creatinine 1.71 H Estim Creat Clear Calc 31.41 Est GFR (MDRD) Af Amer 49 L Est GFR (MDRD) Non-Af 41 L BUN/Creatinine Ratio 14.0 Glucose 111 H Calcium 8.0 L Magnesium 1.7 POC Glucose 140 H 10/22/20 10/22/20 10/22/20 10:46 17:11 19:57 WBC RBC Hgb Hct MCV MCH MCHC RDW Std Deviation RDW Coeff of Shashank Plt Count MPV Sodium Potassium Chloride Carbon Dioxide Anion Gap BUN Creatinine Estim Creat Clear Calc Est GFR (MDRD) Af Amer Est GFR (MDRD) Non-Af BUN/Creatinine Ratio Glucose Calcium Magnesium POC Glucose 170 H 143 H 122 H 10/23/20 10/23/20 03:40 03:40 WBC 6.4 RBC 2.66 L Hgb 7.7 L Hct 25.0 L MCV 94.0 MCH 28.9 MCHC 30.8 L RDW Std Deviation 54.1 H RDW Coeff of Shashank 15.9 H Plt Count 209 MPV 10.1 Sodium 140 Potassium 4.1 Chloride 104 Carbon Dioxide 31.0 Anion Gap 5 BUN 22 H Creatinine 1.59 H Estim Creat Clear Calc 33.78 Est GFR (MDRD) Af Amer 54 L Est GFR (MDRD) Non-Af 44 L BUN/Creatinine Ratio 13.8 Glucose 136 H Calcium 8.0 L Magnesium POC Glucose Microbiology 10/19/20 20:10 Blood Culture (Wb) - Anticubital Right Blood Culture - Prel iminary No growth in 48 hours. 10/19/20 20:10 Blood Culture (Wb) - Anticubital Right Blood Culture - Preliminary No growth in 48 hours. 10/21/20 11:15 Wound - Arm Gram Stain - Final 10/21/20 11:15 Wound - Arm Wound Culture - Preliminary No growth-Final to follow 10/19/20 21:35 Urine, Clean Catch Urine Culture - Final Serratia marcescens Medical Necessity - Tobacco Use Smoking Status: Never smoker Tobacco Use: Non-smoker Assessment/Plan All Active Problems (Last Reviewed 09/26/20 @ 08:00 by Nilsa Cole) Acute respiratory failure with hypoxia (Acute) Septic shock (Acute) Acute on chronic systolic congestive heart failure (Acute) RECOMMENDATIONS: 1. Initiate low-dose beta-kelsey. 2. Wean supplemental oxygen to maintain saturations at or above 90%. 3. Encourage incentive spirometer use and mobilize patient as tolerated. 4. Complete 7 days of antimicrobials 5. Likely okay to leave the intensive care unit from my perspective if heart rate controlled with addition of low-dose beta-kelsey IMPRESSIONS: 1. Acute hypoxemic respiratory failure The patient reportedly does not utilize supplemental oxygen at his baseline. I do suspect that his acute respiratory failure was likely secondary to decompensated heart failure given rapid improvement. His oxygenation status is currently stable. Supplemental oxygen to maintain saturations at or above 90%. The patient will remain on empiric antimicrobials for now. Encourage incentive spirometer use and mobilize patient as tolerated. Holding on diuretics given renal function and adequate oxygenation at this point. 2. Septic shock secondary to Serratia UTI and possible skin source The patient has a baseline low systolic pressure around 90 mmHg. Appears to be a urinary tract source of infections with Serratia isolated on culture. The patient will be continued on antimicrobials to complete a 7-day course. Given improvement in blood pressures, will initiate low-dose beta-kelsey to help with A. fib with RVR 3. Paroxysmal atrial fibrillation/decompensated heart failure/coronary artery disease status post CABG Continue current medical management. Cardiology is currently following. Rate is marginally controlled at this time. If patient tolerates IV dosing of Lopressor, likely okay to initiate p.o. baseline medication per cardiology. 4. Recent GI bleed/anemia Continue PPI therapy. Monitor H&H daily with plans to transfuse if hemoglobin drops below 7 g/dL. 5. Advanced age/diabetes mellitus/chronic kidney disease/GERD/history of prostate CA Complicates care, management, recovery and prognosis. Continue home medications as indicated. Inpatient E&M: 48618 Subs Hosp L3
--- NOTE | 2020-10-23 08:52 | PN.CARD_ITS ---
Subjectve: Patient seen and evaluated. Appears to be doing well. Is tachycardic but asymptomatic. Sitting up eating breakfast. Objective: Vital Signs Temp Pulse Resp BP Pulse Ox 98.6 F 136 H 21 H 101/53 L 94 10/23/20 08:00 10/23/20 08:00 10/23/20 08:00 10/23/20 08:00 10/23/20 08:00 Oxygen Flow Rate (L/min) 2 Oxygen Delivery Method Room Air Weight: 150 lb 6.4 oz Body Mass Index (BMI) 21.5 Intake and Output for Last 24 Hours 10/21/20 10/22/20 10/23/20 23:59 23:59 23:59 Intake Total 2070.83 / 2076.43 455.24 / 455.24 104 / 104 Output Total 2525 / 2525 1105 / 1105 234 / 234 Balance -454.17 / -448.57 -649.76 / -649.76 -130 / -130 General: Awake, Alert, Oriented x 3 HEENT: PERRL, EOMI, Sclera Non Icteric Neck: Supple, Good ROM, No Lymph Node Enlargement Lungs: Clear to auscultation Cardiovascular: Irregular Rhythm, Normal S1, Normal S2, No Murmurs, No Rubs, No Gallops Vascular: No Carotid Bruits, Normal Femoral Pulses, Normal Radial Pulses, Normal Dorsalis Pedal Pulse, Normal Posterior Tibial Pulses Abdomen: Bowel Sounds Present, Soft, Non Tender, No HSM, No Organomegaly Extremities: No Cyanosis, No Clubbing, No edema Neurological: No Focal Motor or Sensory Deficit 10/23/20 03:40: WBC 6.4, RBC 2.66 L, Hgb 7.7 L, Hct 25.0 L, MCV 94.0, MCH 28.9, MCHC 30.8 L, Plt Count 209, MPV 10.1 10/23/20 03:40: Sodium 140, Potassium 4.1, Chloride 104, Carbon Dioxide 31.0, Anion Gap 5, BUN 22 H, Creatinine 1.59 H, Est GFR (MDRD) Af Amer 54 L, Est GFR (MDRD) Non-Af 44 L, BUN/Creatinine Ratio 13.8, Glucose 136 H, Calcium 8.0 L Rhythm: EKG: ECHO: Stress Test: Cardiac Cath: PCI: CT Surgery: Holter monitor: EPS: PPM: CXR: Chest CT Scan: Medical Necessity - Tobacco Use Smoking Status: Never smoker Tobacco Use: Non-smoker Assessment/Plan 1. Paroxysmal atrial fibrillation I48.0 Patient is Micra pacemaker which appears to be functioning well. * His beta-kelsey dose has been resumed today at metoprolol 25 mg 3 times daily. * We will continue with twice a week digoxin * No anticoagulation at this particular time * He will receive a dose of intravenous diltiazem to help with his rate control. * Above discussed with intensive care team. 2. 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 We will continue to monitor this with routine/scheduled follow-ups. His device check prior to office visit showed [employer] percent 13.8% impaired longevity greater than 8 years. 3. Atherosclerosis of [place] coronary artery of [place] heart with angina pectoris I25.119 Plan His most recent heart catheterization showed patency of bypass grafts. He denies any chest, arm, jaw, or neck discomfort suggestive of angina. His shortness of breath at this time is thought related to fluid volume overload. His fatigue is thought to be related to medications plus or minus atrial fibrillation. We will continue current medication and continue to monitor. Comprehensive Metabolic Profil 10/09/20 CBC W/Diff, Automated 10/09/20 4. H/O coronary artery bypass surgery Z95.1 CABG x 4: COLES-LAD, SVG-D1, SVG to proximal end of SVG to diagonal going to OM 2, and SVG-RPDA 10/30/16 as noted above his bypass grafts are noted to be patent and I will not recommend that we make any changes with respect to this. 5. Ischemic cardiomyopathy with systolic congestive heart failure I25.5 Plan His most recent heart catheterization in July 2020 showed an ejection fraction of 30%. Patient's BNP upon admission in August 2020 was greater than 5000. He does acknowledge orthopnea. He still has a small amount of pedal edema He does not appear to be a candidate for a biventricular defibrillator but this may be what may need to be considered. His blood pressure has also not been optimal to allow as to use Entresto and/or significant diuretics. I do not think that he is a candidate for long-term dobutamine. After blood pressure improves will consider lower dose beta-kelsey shorter acting 6. Essential hypertension 7. Hyperlipidemia, unspecified hyperlipidemia type E78.5 Plan He is currently not on cholesterol lowering medication. He will continue risk factor and lifestyle modification. His clinical condition is rather guarded at this time. We will continue to optimize his medical therapy with rate control. Thank you for allowing me to participate in the care of your patient. Please don't hesitate to call if any issues arise.
[2020-10-23] MEDS: dilTIAZem 25 MG/5 ML Vial 20 MG IV BOLUS (08:53)
[2020-10-23] MEDS: Metoprolol Tartrate 25 MG Tablet PO ×3 (09:10→21:52)
[2020-10-23] MEDS: Clopidogrel Bisulfate 75 MG Tablet PO (09:10)
[2020-10-23] MEDS: Pantoprazole Sodium 40 MG Tablet PO ×2 (09:10→21:53)
[2020-10-23] MEDS: Ceftriaxone 1 GM/50 ML BAG IV (09:11)
--- NOTE | 2020-10-23 09:48 | PN_ITS ---
Patient Problems: Active and Suspected Problems (Last Reviewed 09/26/20 @ 08:00 by Nilsa Cole) Acute on chronic systolic congestive heart failure (Acute) Subjective: Chief complaint: Follow-up after admission for acute on chronic CHF, A. fib with RVR, acute hypoxic respiratory failure, septic shock secondary to acute c ystitis. Patient seen and examined. No acute events overnight. He is off IV Levophed since yesterday morning. Remained in A. fib with RVR. Blood pressure is borderline. Patient denied any complaints. He denied chest pain or shortness of breath. He denied dizziness or lightheadedness. He is afebrile. Reportedly, he had a episode of nonsustained V. tach on telemetry. - Physical Exam Vitals/I&O's: Vital Signs Temp Pulse Resp BP Pulse Ox 98.6 F 90 21 H 84/46 L 94 10/23/20 08:00 10/23/20 09:10 10/23/20 08:00 10/23/20 09:10 10/23/20 08:00 Oxygen Flow Rate (L/min) 2 Oxygen Delivery Method Room Air Weight: 150 lb 6.4 oz Body Mass Index (BMI) 21.5 Intake and Output for Last 24 Hours 10/21/20 10/22/20 10/23/20 23:59 23:59 23:59 Intake Total 2070.83 / 2076.43 455.24 / 455.24 104 / 104 Output Total 2525 / 2525 1105 / 1105 459 / 459 Balance -454.17 / -448.57 -649.76 / -649.76 -355 / -355 General: Alert, Oriented x3, Cooperative, No apparent distress HEENT: Atraumatic, PERRLA, EOMI, Normocephalic Oral: Moist Mucosa, No Gingival or Mucosal Lesions/ Ulcerations Neck: Supple, No JVD, Negative Carotid Bruits, Trachea Midline, Thyroid Normal Size and Texture Lungs: Clear to auscultation, No rhonchi, No wheeze, No rales, Diminished Cardiovascular: Normal S1, Normal S2, PMI Normal, Irregular Rate Abdomen: Bowel Sounds Present, Soft, Non Tender, Non-Distended, No Hepato- splenomegaly Extremities: No clubbing, No cyanosis, Edema Skin: No rashes, No breakdown Lymphatic: No Cervical, Supraclavicular, or Inguinal Adenopathy Neurological: Cranial nerves II-XII grossly intact, Motor Exam 5/5 strength throughout Psych/Mental Status: Normal Affect, Appropriate, Alert and oriented to time, place, person, mood and affect Microbiology Past 72 Hours 10/19/20 20:10 Blood Culture (Wb) - Anticubital Right Blood Culture - Preliminary No growth in 48 hours. 10/19/20 20:10 Blood Culture (Wb) - Anticubital Right Blood Culture - Preliminary No growth in 48 hours. 10/21/20 11:15 Wound - Arm Gram Stain - Final 10/21/20 11:15 Wound - Arm Wound Culture - Preliminary No growth-Final to follow 10/19/20 21:35 Urine, Clean Catch Urine Culture - Final Serratia marcescens Laboratory Results 10/22/20 10:46: POC Glucose 170 H 10/22/20 17:11: POC Glucose 143 H 10/22/20 19:57: POC Glucose 122 H 10/23/20 03:40: WBC 6.4, RBC 2.66 L, Hgb 7.7 L, Hct 25.0 L, MCV 94.0, MCH 28.9, MCHC 30.8 L, RDW Std Deviation 54.1 H, RDW Coeff of Shashank 15.9 H, Plt Count 209, MPV 10.1 10/23/20 03:40: Sodium 140, Potassium 4.1, Chloride 104, Carbon Dioxide 31.0, Anion Gap 5, BUN 22 H, Creatinine 1.59 H, Estim Creat Clear Calc 33.78, Est GFR (MDRD) Af Amer 54 L, Est GFR (MDRD) Non-Af 44 L, BUN/Creatinine Ratio 13.8, Glucose 136 H, Calcium 8.0 L Current Medications Acetaminophen (Acetaminophen 650 Mg Suppository) 650 mg RECTAL Q4H PRN PRN PRN Reason: Pain Score 1-10/Temp > 100.7 F Acetaminophen (Acetaminophen 325 Mg Tablet) 650 mg PO Q6H PRN PRN PRN Reason: Pain Score 1-10/Temp > 100.7 F Al Hydroxide/Mg Hydroxide (Mag Hydrox/Al Hydrox/Simeth 30 Ml Udc) 30 ml PO Q6H PRN PRN PRN Reason: Gastric Burning Albuterol Sulfate (Albuterol 2.5 Mg/3 Ml Vial.Neb.) 2.5 mg INHALATION Q2H PRN PRN PRN Reason: Dyspnea, wheezing Last Admin: 10/23/20 04:23 Dose: 2.5 mg Documented by: Atorvastatin Calcium (Atorvastatin Calcium 20 Mg Tablet) 20 mg PO QHS [facility] Last Admin: 10/22/20 21:04 Dose: 20 mg Documented by: Clopidogrel Bisulfate (Clopidogrel Bisulfate 75 Mg Tablet) 75 mg PO DAILY [facility] Last Admin: 10/23/20 09:10 Dose: 75 mg Documented by: Dextrose (Dextrose 50%-Water 25 Gm/50 Ml Disp.Syrin) 0 gm IV X1 PRN; Protocol PRN Reason: Hypoglycemia Glucagon (Glucagon 1 Mg/Ml Syringe) 1 mg IM .X1 PRN PRN Reason: Hypoglycemia Guaifenesin (Guaifenesin 10 Ml Udc (200mg/10ml)) 10 ml PO Q4H PRN PRN PRN Reason: COUGH Hydralazine HCl (Hydralazine 20 Mg/Ml Vial) 10 mg IV Q4H PRN PRN PRN Reason: SBP > 160 Norepinephrine Bitartrate 8 mg (/ Sodium Chloride) 250 mls @ 9.375 mls/hr CONT INF .[id number] [facility]; Protocol Last Admin: 10/23/20 08:21 Dose: Not Given Documented by: Sodium Chloride () 250 mls @ 15 mls/hr IV .[id number] PRN PRN Reason: Saline Flush Last Infusion: 10/21/20 07:00 Dose: 0 mls/hr Documented by: Sodium Chloride () 250 mls @ 15 mls/hr IV .[id number] PRN PRN Reason: Additional IVPB Infusion Ceftriaxone Sodium (Rocephin) 1 gm in 50 mls @ 100 mls/hr IV Q24 [facility] Last Admin: 10/23/20 09:11 Dose: 100 mls/hr Documented by: Insulin Human Lispro (Insulin Lispro 100 Unit/Ml Insuln.Pen) 0 unit SC ACHS [facility]; Protocol Last Admin: 10/23/20 07:47 Dose: Not Given Documented by: Magnesium Hydroxide (Magnesium Hydroxide 30 Ml Udc) 30 ml PO DAILY PRN PRN PRN Reason: Constipation Metoprolol Tartrate (Metoprolol Tartrate 25 Mg Tablet) 25 mg PO 1000,1600,2200 [facility] Last Admin: 10/23/20 09:10 Dose: 25 mg Documented by: Nitroglycerin (Nitroglycerin (Inpatient Use) 0.4 Mg Tab.Subl) 0.4 mg SUBLINGUAL Q5M PRN PRN Reason: CARDIAC/CHEST PAIN Nutritional Formula (Lactose Free) (Glucerna Shake 120 Ml Liquid) 120 ml PO 4X/DAY [facility] Last Admin: 10/23/20 09:03 Dose: Not Given Documented by: Ondansetron HCl (Ondansetron 4 Mg/2 Ml Vial) 4 mg IV Q8H PRN PRN PRN Reason: NAUSEA/VOMITING Oxycodone HCl (Oxycodone 5 Mg Tablet) 5 mg PO Q4H PRN PRN PRN Reason: Pain Score 4-5 Pantoprazole Sodium (Pantoprazole Sodium 40 Mg Tablet) 40 mg PO BID [facility] Last Admin: 10/23/20 09:10 Dose: 40 mg Documented by: Polyethylene Glycol (Polyethylene Glycol 3350 17 Gm Packet) 17 gm PO X1 ONE Stop: 10/23/20 10:01 Potassium Chloride (Potassium Chloride 20 Meq Tablet) 20 meq PO DAILY [facility] Last Admin: 10/23/20 09:10 Dose: 20 meq Documented by: Prochlorperazine Edisylate (Prochlorperazine 10 Mg/2 Ml Vial) 5 mg IV Q4H PRN PRN PRN Reason: Breakthrough Nausea/Vomiting Psyllium Hydrophilic Mucilloid (Psyllium 1 Packet) 1 packet PO DAILY PRN PRN PRN Reason: Constipation Senna/Docusate Sodium (Senna/Docusate Sodium 1 Tablet) 2 tablet PO BID PRN PRN PRN Reason: Constipation Sodium Chloride (0.9% Saline Lock 10 Ml Syringe) 10 - 40 ml IV UD PRN PRN Reason: SALINE FLUSH Last Admin: 10/23/20 08:54 Dose: 40 ml Documented by: Throat Lozenges (Benzocaine/Menthol 1 Lozenge) 1 lozenge MUCOUS MEM Q2H PRN PRN PRN Reason: SORE THROAT Medical Necessity - Tobacco Use Smoking Status: Never smoker Tobacco Use: Non-smoker Assessment/Plan All Active Problems (Last Reviewed 09/26/20 @ 08:00 by Nilsa Cole) Acute respiratory failure with hypoxia (Acute) Septic shock (Acute) Acute on chronic systolic congestive heart failure (Acute) This is an 80 years old male patient presented to the emergency room because of weakness, malaise and not feeling well, found to have acute on chronic systolic congestive heart failure, acute hypoxic respiratory failure, A. fib with RVR as well as septic shock secondary to acute cystitis. #1 acute on chronic systolic CHF: He is on metoprolol. He has been off IV lithotripter since yesterday morning. Currently, he is not on diuretics. Blood pressure is borderline, heart rate improved after he received p.o. metoprolol this morning. He had cardiac catheterization on July 2020, showed ejection fraction of 30%. Cardiology on the case. Plan to continue same treatment. #2 acute hypoxic respiratory failure: Secondary to #1. Respiratory status improved, he is off oxygen today and his pulse ox is 94%. Plan as above. #3 A. fib with RVR: At this time, heart rate has been around 90s, blood pressure is borderline. Received 1 dose of p.o. metoprolol this morning. Plan to continue metoprolol, monitor blood pressure. No anticoagulation according to cardiology. #4 septic shock/acute cystitis: He is on IV Rocephin. He has been afebrile, no leukocytosis. Blood cultures showed no growth in 48 hours. Urine culture revealed Serratia marcescens. Plan to continue same treatment. #5 type 2 diabetes mellitus: Blood sugar stable, continue Accu-Cheks and sliding scale. Sitagliptin/Metformin held. #6 anemia: In context of recent GI bleed. Reportedly, patient had endoscopy recently that showed no acute active bleeding. Today's hemoglobin is 7.7 g/dL. Currently, no active bleeding. Plan to monitor. #7 stage III chronic kidney disease: Baseline creatinine has been around 1.4-2 mg/dL, today's creatinine is 1.59, remained stable at baseline. #8 CAD status post CABG: Stable, continue Plavix, statins. #9 status post pacemaker: This was done for chronic A. fib. #10 DVT prophylaxis: SCDs. This note was generated with [employer] software. It may contain incorrect words, spelling, and punctuation that were not noted in checking the note before signing. Inpatient E&M: 15007 [facility] Hosp L2
[2020-10-23] MEDS: Polyethylene Glycol 3350 17 GM PACKET PO (10:05)
--- NOTE | 2020-10-23 11:08 | CASEMGMT ---
GERMÁN RANKIN Note: Spoke with [facility] Palliative Nurse. Palliative referral was made prior to , but when nurse attempted to make appointment it was deferred and pt/family was requesting Hospice consult after the holidays. [facility]'s subsequent attempts to speak with pt/family were unsuccessful. GERMÁN RANKIN let nurse know patient is in the hospital and sw would address Palliative/Hospice plans with pt while here and update [facility] with results. Kimmy, CHARITY aware. Irma BSN RN ACM
[2020-10-23] MEDS: Insulin Lispro 100 UNIT/ML INSULN.PEN SC ×3 (12:05→21:52)
[2020-10-23 12:10] LABS: Bedside Glucose 252 mg/dL (70-110)
--- NOTE | 2020-10-23 14:24 | CASEMGMT ---
SW met w/pt in room in regard to plan at discharge. Pt does want to go home, does not want to go to a facility, wants to go home. Pt spoke about , and that she relies on him, but he is not able to help. 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 We discussed options of hiring extra help at home, assisted living. He is not in favor of these options, but just isn't certain what to do. Pt tearful. SW offered support. He also has considered hospice, but is not sure if he wants to go with hospice either. Therapy came in to work w/pt, pt gave SW permission to call son. SW called pt's son Watson in regard to home situation. SW explained that pt is stressed about what to do at home since relies on him, but with this SW was not really open to help at home or to assisted living. SW explained we also discussed hospice but it was unclear if pt was wanting hospice as he did not want further treatment or wanted extra help at home, and SW explained that hospice does not provide this. Son states pt was going to go with hospice and then ended up in [facility] in [facility]. Son states after conversations w/staff there decided he was not in favor of this. Pt, based on stories from staff in the hospital, got a bad feeling about hospice and decided he did not want strangers in his home. Son asked if referral made here in hospital, would pt go straight to the hospice facility. SW explained the criteria for inpt hospice, and pt may not meet this. SW explained that it would more likely be hospice at home or in a group home. Son states they really want pt home. He also states pt's is starting to understand more that pt is ill and can't help her how he used to do so. Upon further discussion w/son, he states he and his can help pt and pt's at home, so no need to hire aides. Also, he states they are still considering hospice, they really want pt at home and not in a facility. SW explained that we can see, closer to discharge, if pt would want a referral to hospice to see him before he is discharged, or once he is home. Plan: Family wants pt home, may be open to hospice referral either to see pt here or follow up w/pt at home. SW will continue to follow. KATTY Felix
[2020-10-23 16:56] LABS: Bedside Glucose 167 mg/dL (70-110)
[2020-10-23] MEDS: Atorvastatin Calcium 20 MG Tablet PO (21:52)
[2020-10-23] MEDS: Mirtazapine 15 MG Tablet PO (21:53)
[2020-10-23 22:00] LABS: Bedside Glucose 190 mg/dL (70-110)
[2020-10-24] VITALS (22 sets, daily range): BP systolic 87–119; BP diastolic 53–88; PULSE 94–145; RESP 17–21; TEMP 36.6–37.1; O2SAT 92–100
[2020-10-24 04:11] LABS: Hematocrit 26.4 % (40-54); Hemoglobin 8.1 g/dL (13.0-16.5); Mean Corp Hgb Conc 30.7 g/dL (32-36); Mean Corpuscular Hgb 28.7 pg (27.0-32.0); Mean Corpuscular Volume 93.6 fL (80-94); Mean Platelet Vol. 10.3 fl (6.2-12.0); Platelet Count 223 K/mm3 (150-450); RBC Distribution Width CV 15.8 % (11.6-14.6); RBC Distribution Width SD 53.3 fl (35.1-43.9); Red Blood Count 2.82 M/mm3 (4.6-6.2); White Blood Count 6.9 K/mm3 (4.4-11.0)
[2020-10-24 04:24] LABS: Anion Gap 4 (5-15); BUN 21 mg/dL (7-18); BUN/Creat Ratio 15.1 RATIO (10-20); Calcium,Total 8.1 mg/dL (8.5-10.1); Chloride 104 mmol/L (98-107); Creatinine, Serum 1.39 mg/dL (0.70-1.30); EST Glomerular Filtration Rate 52 mL/min (>60); Est Glom Filt Rate - Afr Amer 63 mL/min (>60); Estimated Creatinine Clearance 39.54 ml/min; Glucose 121 mg/dL (74-106); Potassium 4.3 mmol/L (3.5-5.1); Sodium Level 138 mmol/L (136-145)
--- NOTE | 2020-10-24 07:08 | PCM.PN.INT ---
Subjective: Patient did okay overnight. Patient has tolerated p.o. rate control and did well for most of the evening. This morning, patient has had higher heart rates, but blood pressure has been controlled. Patient tolerating well on room air. Patient does report pain in the coccyx, but associates this with his pressure wound. General: Alert, Oriented x3, Cooperative, No apparent distress, - - No conversational dyspnea. Thin build. HEENT: Atraumatic, PERRLA, EOMI, Normocephalic, - - Glasses in place. No scleral icterus or injection noted Oral: Moist Mucosa, No Gingival or Mucosal Lesions/ Ulcerations Neck: Supple, No JVD, No Nodes, Trachea Midline Lungs: Clear to auscultation, Normal air movement, No rhonchi, No wheeze, No rales Cardiovascular: Normal S1, Normal S2, No murmurs, Irregular Rate, No rub noted, No Gallop, Tachycardic Abdomen: Bowel Sounds Present, Soft, Non Tender, Non-Distended Extremities: No clubbing, No cyanosis, Edema - Trace lower extremity Skin: - - No change compared to previous Musculoskeletal: No Tenderness to Palpation of Joints or Extremities Lymphatic: No Cervical, Supraclavicular, or Inguinal Adenopathy Neurological: Cranial nerves II-XII grossly intact, Neuro grossly intact, Motor Exam 5/5 strength throughout Psych/Mental Status: Flat Affect Vital Signs Temp Pulse Resp BP Pulse Ox 36.8 C 108 H 20 H 90/60 94 10/24/20 04:00 10/24/20 06:00 10/24/20 06:00 10/24/20 06:00 10/24/20 06:00 Oxygen Flow Rate (L/min) 2 Oxygen Delivery Method Room Air Weight: 68.22 kg Body Mass Index (BMI) 21.5 Intake and Output for Last 24 Hours 10/22/20 10/23/20 10/24/20 23:59 23:59 23:59 Intake Total 455.24 / 455.24 154 / 154 Output Total 1105 / 1105 659 / 659 200 / 200 Balance -649.76 / -649.76 -505 / -505 -200 / -200 Labs (Last 48 Hours) 10/22/20 10/22/20 10/22/20 10:46 17:11 19:57 WBC RBC Hgb Hct MCV MCH MCHC RDW Std Deviation RDW Coeff of Shashank Plt Count MPV Sodium Potassium Chloride Carbon Dioxide Anion Gap BUN Creatinine Estim Creat Clear Calc Est GFR (MDRD) Af Amer Est GFR (MDRD) Non-Af BUN/Creatinine Ratio Glucose Calcium POC Glucose 170 H 143 H 122 H 10/23/20 10/23/20 10/23/20 03:40 03:40 12:04 WBC 6.4 RBC 2.66 L Hgb 7.7 L Hct 25.0 L MCV 94.0 MCH 28.9 MCHC 30.8 L RDW Std Deviation 54.1 H RDW Coeff of Shashank 15.9 H Plt Count 209 MPV 10.1 Sodium 140 Potassium 4.1 Chloride 104 Carbon Dioxide 31.0 Anion Gap 5 BUN 22 H Creatinine 1.59 H Estim Creat Clear Calc 33.78 Est GFR (MDRD) Af Amer 54 L Est GFR (MDRD) Non-Af 44 L BUN/Creatinine Ratio 13.8 Glucose 136 H Calcium 8.0 L POC Glucose 252 H 10/23/20 10/23/20 10/24/20 16:09 21:51 04:00 WBC 6.9 RBC 2.82 L Hgb 8.1 L Hct 26.4 L MCV 93.6 MCH 28.7 MCHC 30.7 L RDW Std Deviation 53.3 H RDW Coeff of Shashank 15.8 H Plt Count 223 MPV 10.3 Sodium Potassium Chloride Carbon Dioxide Anion Gap BUN Creatinine Estim Creat Clear Calc Est GFR (MDRD) Af Amer Est GFR (MDRD) Non-Af BUN/Creatinine Ratio Glucose Calcium POC Glucose 167 H 190 H 10/24/20 04:00 WBC RBC Hgb Hct MCV MCH MCHC RDW Std Deviation RDW Coeff of Shashank Plt Count MPV Sodium 138 Potassium 4.3 Chloride 104 Carbon Dioxide 30.0 Anion Gap 4 L BUN 21 H Creatinine 1.39 H Estim Creat Clear Calc 39.54 Est GFR (MDRD) Af Amer 63 Est GFR (MDRD) Non-Af 52 L BUN/Creatinine Ratio 15.1 Glucose 121 H Calcium 8.1 L POC Glucose Microbiology 10/19/20 20:10 Blood Culture (Wb) - Anticubital Right Blood Culture - Preliminary No growth in 48 hours. 10/19/20 20:10 Blood Culture (Wb) - Anticubital Right Blood Culture - Preliminary No growth in 48 hours. 10/21/20 11:15 Wound - Arm Gram Stain - Final 10/21/20 11:15 Wound - Arm Wound Culture - Preliminary No growth-Final to follow Medical Necessity - Tobacco Use Smoking Status: Never smoker Tobacco Use: Non-smoker Assessment/Plan All Active Problems (Last Reviewed 09/26/20 @ 08:00 by Nilsa Cole) Acute respiratory failure with hypoxia (Acute) Septic shock (Acute) Acute on chronic systolic congestive heart failure (Acute) RECOMMENDATIONS: 1. Sitter titration of beta-kelsey per cardiology 2. Wean supplemental oxygen to maintain saturations at or above 90%. 3. Encourage incentive spirometer use and mobilize patient as tolerated. 4. Complete 7 days of antimicrobials 5. Hemodynamically stable on room air. Will sign off from a critical care perspective 6. Okay to transfer to telemetry from my perspective IMPRESSIONS: 1. Acute hypoxemic respiratory failure The patient reportedly does not utilize supplemental oxygen at his baseline. I do suspect that his acute respiratory failure was likely secondary to decompensated heart failure given rapid improvement attics. His oxygenation status is currently stable. Supplemental oxygen to maintain saturations at or above 90%. The patient will remain on empiric antimicrobials to complete a 7-day course. Encourage incentive spirometer use and mobilize patient as tolerated. Holding on diuretics given renal function and adequate oxygenation at this point. These could be reinitiated per cardiology in the future 2. Septic shock secondary to Serratia UTI and possible skin source The patient has a baseline low systolic pressure around 90 mmHg. Appears to be a urinary tract source of infections with Serratia isolated on culture. The patient will be continued on antimicrobials to complete a 7-day course. Patient appears to have resolved his septic physiology and can likely be titrated on rate control as cardiology feels appropriate. 3. Paroxysmal atrial fibrillation/decompensated heart failure/coronary artery disease status post CABG Continue current medical management. Cardiology is currently following. Rate is marginally controlled at this time. Optimization per cardiology 4. Recent GI bleed/anemia Continue PPI therapy. Monitor H&H daily with plans to transfuse if hemoglobin drops below 7 g/dL. 5. Advanced age/diabetes mellitus/chronic kidney disease/GERD/history of prostate CA Complicates care, management, recovery and prognosis. Continue home medications as indicated. Inpatient E&M: [id number] [facility] Hosp L2
--- NOTE | 2020-10-24 07:29 | PCM.PN.CARD ---
Subjectve: Patient seen and evaluated. No cardiac complaints. Rate improved but still suboptimally controlled Objective: Vital Signs Temp Pulse Resp BP Pulse Ox 98.2 F 108 H 20 H 90/60 94 10/24/20 04:00 10/24/20 06:00 10/24/20 06:00 10/24/20 06:00 10/24/20 06:00 Oxygen Flow Rate (L/min) 2 Oxygen Delivery Method Room Air Weight: 150 lb 6.39 oz Body Mass Index (BMI) 21.5 Intake and Output for Last 24 Hours 10/22/20 10/23/20 10/24/20 23:59 23:59 23:59 Intake Total 455.24 / 455.24 154 / 154 Output Total 1105 / 1105 659 / 659 200 / 200 Balance -649.76 / -649.76 -505 / -505 -200 / -200 General: Awake, Alert, Oriented x 3 HEENT: PERRL, EOMI, Sclera Non Icteric Neck: Supple, Good ROM, No Lymph Node Enlargement Lungs: Clear to auscultation Cardiovascular: Irregular Rhythm, Normal S1, Normal S2, No Murmurs, No Rubs, No Gallops Vascular: No Carotid Bruits, Normal Femoral Pulses, Normal Radial Pulses, Normal Dorsalis Pedal Pulse, Normal Posterior Tibial Pulses Abdomen: Bowel Sounds Present, Soft, Non Tender, No HSM, No Organomegaly Extremities: No Cyanosis, No Clubbing, No edema Musculoskeletal: No Erythema Lymphatic: No Lymph Node Enlargement Neurological: No Focal Motor or Sensory Deficit 10/24/20 04:00: WBC 6.9, RBC 2.82 L, Hgb 8.1 L, Hct 26.4 L, MCV 93.6, MCH 28.7, MCHC 30.7 L, Plt Count 223, MPV 10.3 10/24/20 04:00: Sodium 138, Potassium 4.3, Chloride 104, Carbon Dioxide 30.0, Anion Gap 4 L, BUN 21 H, Creatinine 1.39 H, Est GFR (MDRD) Af Amer 63, Est GFR (MDRD) Non-Af 52 L, BUN/Creatinine Ratio 15.1, Glucose 121 H, Calcium 8.1 L Rhythm: EKG: ECHO: Stress Test: Cardiac Cath: PCI: CT Surgery: Holter monitor: EPS: PPM: CXR: Chest CT Scan: Medical Necessity - Tobacco Use Smoking Status: Never smoker Tobacco Use: Non-smoker Assessment/Plan 1. Paroxysmal atrial fibrillation I48.0 Patient is Micra pacemaker which appears to be functioning well. His beta-kelsey dose has been resumed today at metoprolol 25 mg 3 times daily. We will continue with twice a week digoxin No anticoagulation at this particular time Above discussed with intensive care team. 2. 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 We will continue to monitor this with routine/scheduled follow-ups. His device check prior to office visit showed [employer] percent 13.8% impaired longevity greater than 8 years. 3. Atherosclerosis of [place] coronary artery of [place] heart with angina pectoris I25.119 Plan His most recent heart catheterization showed patency of bypass grafts. He denies any chest, arm, jaw, or neck discomfort suggestive of angina. His shortness of breath at this time is thought related to fluid volume overload. His fatigue is thought to be related to medications plus or minus atrial fibrillation. We will continue current medication and continue to monitor. Comprehensive Metabolic Profil 10/09/20 CBC W/Diff, Automated 10/09/20 4. H/O coronary artery bypass surgery Z95.1 CABG x 4: COLES-LAD, SVG-D1, SVG to proximal end of SVG to diagonal going to OM 2, and SVG-RPDA 10/30/16 as noted above his bypass grafts are noted to be patent and I will not recommend that we make any changes with respect to this. 5. Ischemic cardiomyopathy with systolic congestive heart failure I25.5 Plan His most recent heart catheterization in July 2020 showed an ejection fraction of 30%. Patient's BNP upon admission in August 2020 was greater than 5000. He does acknowledge orthopnea. He still has a small amount of pedal edema He does not appear to be a candidate for a biventricular defibrillator but this may be what may need to be considered. His blood pressure has also not been optimal to allow as to use Entresto and/or significant diuretics. I do not think that he is a candidate for long-term dobutamine. After blood pressure improves will consider lower dose beta-kelsey shorter acting 6. Essential hypertension 7. Hyperlipidemia, unspecified hyperlipidemia type E78.5 Plan He is currently not on cholesterol lowering medication. He will continue risk factor and lifestyle modification. His clinical condition is rather guarded at this time. We will continue to optimize his medical therapy with rate control. No major changes to be made at this time. Thank you for allowing me to participate in the care of your patient. Please don't hesitate to call if any issues arise.
[2020-10-24] MEDS: Metoprolol Tartrate 25 MG Tablet PO ×3 (08:27→22:57)
[2020-10-24] MEDS: Clopidogrel Bisulfate 75 MG Tablet PO (08:27)
[2020-10-24] MEDS: Pantoprazole Sodium 40 MG Tablet PO ×2 (08:28→22:58)
[2020-10-24 08:36] LABS: Bedside Glucose 106 mg/dL (70-110)
--- NOTE | 2020-10-24 09:43 | PN_ITS ---
Patient Problems: Active and Suspected Problems (Last Reviewed 09/26/20 @ 08:00 by Nilsa Cole) Acute on chronic systolic congestive heart failure (Acute) Subjective: Chief complaint: Follow-up after admission for acute on chronic CHF, A. fib with RVR, acute hypoxic respiratory failure, septic shock secondary to acute c ystitis. Patient seen and examined. No acute events overnight. He remains in A. fib with RVR, heart rate has been fluctuating. He complains of nausea and sick feeling. Denied chest pain or shortness of breath. Denied palpitation, dizziness or lightheadedness. He is afebrile, heart rate has been anywhere from 100-130, blood pressure is borderline, pulse ox is 94% on room air. - Physical Exam Vitals/I&O's: Vital Signs Temp Pulse Resp BP Pulse Ox 98.2 F 135 H 20 H 93/57 L 94 10/24/20 04:00 10/24/20 08:27 10/24/20 06:00 10/24/20 08:27 10/24/20 06:00 Oxygen Flow Rate (L/min) 2 Oxygen Delivery Method Room Air Weight: 150 lb 6.39 oz Body Mass Index (BMI) 21.5 Intake and Output for Last 24 Hours 10/22/20 10/23/20 10/24/20 23:59 23:59 23:59 Intake Total 455.24 / 455.24 154 / 154 Output Total 1105 / 1105 659 / 659 200 / 200 Balance -649.76 / -649.76 -505 / -505 -200 / -200 General: Alert, Oriented x3, Cooperative, No apparent distress HEENT: PERRLA, EOMI, Normocephalic Oral: Moist Mucosa, No Gingival or Mucosal Lesions/ Ulcerations Neck: Supple, No JVD, Negative Carotid Bruits, Trachea Midline, Thyroid Normal Size and Texture Lungs: Clear to auscultation, No rhonchi, No wheeze, No rales, Diminished Cardiovascular: Normal S1, Normal S2, PMI Normal, Irregular Rate, Tachycardic Abdomen: Bowel Sounds Present, Soft, Non Tender, Non-Distended, No Hepato- splenomegaly Extremities: No clubbing, No cyanosis, Edema Skin: No rashes, No breakdown Lymphatic: No Cervical, Supraclavicular, or Inguinal Adenopathy Neurological: Cranial nerves II-XII grossly intact, Neuro grossly intact Psych/Mental Status: Normal Affect, Appropriate Microbiology Past 72 Hours 10/21/20 11:15 Wound - Arm Gram Stain - Final 10/21/20 11:15 Wound - Arm Wound Culture - Final No growth aerobically. 10/19/20 20:10 Blood Culture (Wb) - Anticubital Right Blood Culture - Preliminary No growth in 48 hours. 10/19/20 20:10 Blood Culture (Wb) - Anticubital Right Blood Culture - Preliminary No growth in 48 hours. 10/19/20 21:35 Urine, Clean Catch Urine Culture - Final Serratia marcescens Laboratory Results 10/23/20 12:04: POC Glucose 252 H 10/23/20 16:09: POC Glucose 167 H 10/23/20 21:51: POC Glucose 190 H 10/24/20 04:00: WBC 6.9, RBC 2.82 L, Hgb 8.1 L, Hct 26.4 L, MCV 93.6, MCH 28.7, MCHC 30.7 L, RDW Std Deviation 53.3 H, RDW Coeff of Shashank 15.8 H, Plt Count 223, MPV 10.3 10/24/20 04:00: Sodium 138, Potassium 4.3, Chloride 104, Carbon Dioxide 30.0, Anion Gap 4 L, BUN 21 H, Creatinine 1.39 H, Estim Creat Clear Calc 39.54, Est GFR (MDRD) Af Amer 63, Est GFR (MDRD) Non-Af 52 L, BUN/Creatinine Ratio 15.1, Glucose 121 H, Calcium 8.1 L 10/24/20 08:18: POC Glucose 106 Current Medications Acetaminophen (Acetaminophen 650 Mg Suppository) 650 mg RECTAL Q4H PRN PRN PRN Reason: Pain Score 1-10/Temp > 100.7 F Acetaminophen (Acetaminophen 325 Mg Tablet) 650 mg PO Q6H PRN PRN PRN Reason: Pain Score 1-10/Temp > 100.7 F Al Hydroxide/Mg Hydroxide (Mag Hydrox/Al Hydrox/Simeth 30 Ml Udc) 30 ml PO Q6H PRN PRN PRN Reason: Gastric Burning Albuterol Sulfate (Albuterol 2.5 Mg/3 Ml Vial.Neb.) 2.5 mg INHALATION Q2H PRN PRN PRN Reason: Dyspnea, wheezing Last Admin: 10/23/20 04:23 Dose: 2.5 mg Documented by: Atorvastatin Calcium (Atorvastatin Calcium 20 Mg Tablet) 20 mg PO QHS [facility] Last Admin: 10/23/20 21:52 Dose: 20 mg Documented by: Clopidogrel Bisulfate (Clopidogrel Bisulfate 75 Mg Tablet) 75 mg PO DAILY [facility] Last Admin: 10/24/20 08:27 Dose: 75 mg Documented by: Dextrose (Dextrose 50%-Water 25 Gm/50 Ml Disp.Syrin) 0 gm IV X1 PRN; Protocol PRN Reason: Hypoglycemia Glucagon (Glucagon 1 Mg/Ml Syringe) 1 mg IM .X1 PRN PRN Reason: Hypoglycemia Guaifenesin (Guaifenesin 10 Ml Udc (200mg/10ml)) 10 ml PO Q4H PRN PRN PRN Reason: COUGH Hydralazine HCl (Hydralazine 20 Mg/Ml Vial) 10 mg IV Q4H PRN PRN PRN Reason: SBP > 160 Sodium Chloride () 250 mls @ 15 mls/hr IV .[id number] PRN PRN Reason: Saline Flush Last Infusion: 10/21/20 07:00 Dose: 0 mls/hr Documented by: Sodium Chloride () 250 mls @ 15 mls/hr IV .[id number] PRN PRN Reason: Additional IVPB Infusion Ceftriaxone Sodium (Rocephin) 1 gm in 50 mls @ 100 mls/hr IV Q24 [facility] Last Infusion: 10/23/20 09:41 Dose: Infused Documented by: Insulin Human Lispro (Insulin Lispro 100 Unit/Ml Insuln.Pen) [facility]; Protocol Last Admin: 10/24/20 09:04 Dose: Not Given Documented by: Magnesium Hydroxide (Magnesium Hydroxide 30 Ml Udc) 30 ml PO DAILY PRN PRN PRN Reason: Constipation Metoprolol Tartrate (Metoprolol Tartrate 25 Mg Tablet) 25 mg PO 1000,1600,2200 [facility] Last Admin: 10/24/20 08:27 Dose: 25 mg Documented by: Mirtazapine (Mirtazapine 15 Mg Tablet) 15 mg PO QHS [facility] Last Admin: 10/23/20 21:53 Dose: 15 mg Documented by: Nitroglycerin (Nitroglycerin (Inpatient Use) 0.4 Mg Tab.Subl) 0.4 mg SUBLINGUAL Q5M PRN PRN Reason: CARDIAC/CHEST PAIN Ondansetron HCl (Ondansetron 4 Mg/2 Ml Vial) 4 mg IV Q8H PRN PRN PRN Reason: NAUSEA/VOMITING Oxycodone HCl (Oxycodone 5 Mg Tablet) 5 mg PO Q4H PRN PRN PRN Reason: Pain Score 4-5 Pantoprazole Sodium (Pantoprazole Sodium 40 Mg Tablet) 40 mg PO BID [facility] Last Admin: 10/24/20 08:28 Dose: 40 mg Documented by: Potassium Chloride (Potassium Chloride 20 Meq Tablet) 20 meq PO DAILY [facility] Last Admin: 10/24/20 08:28 Dose: 20 meq Documented by: Prochlorperazine Edisylate (Prochlorperazine 10 Mg/2 Ml Vial) 5 mg IV Q4H PRN PRN PRN Reason: Breakthrough Nausea/Vomiting Psyllium Hydrophilic Mucilloid (Psyllium 1 Packet) 1 packet PO DAILY PRN PRN PRN Reason: Constipation Senna/Docusate Sodium (Senna/Docusate Sodium 1 Tablet) 2 tablet PO BID PRN PRN PRN Reason: Constipation Sodium Chloride (0.9% Saline Lock 10 Ml Syringe) 10 - 40 ml IV UD PRN PRN Reason: SALINE FLUSH Last Admin: 10/23/20 08:54 Dose: 40 ml Documented by: Throat Lozenges (Benzocaine/Menthol 1 Lozenge) 1 lozenge MUCOUS MEM Q2H PRN PRN PRN Reason: SORE THROAT Medical Necessity - Tobacco Use Smoking Status: Never smoker Tobacco Use: Non-smoker Assessment/Plan All Active Problems (Last Reviewed 09/26/20 @ 08:00 by Nilsa Cole) Acute respiratory failure with hypoxia (Acute) Septic shock (Acute) Acute on chronic systolic congestive heart failure (Acute) This is an 80 years old male patient presented to the emergency room because of weakness, malaise and not feeling well, found to have acute on chronic systolic congestive heart failure, acute hypoxic respiratory failure, A. fib with RVR as well as septic shock secondary to acute cystitis. #1 acute on chronic systolic CHF: He is on metoprolol only. He is not on diuretics because of low blood pressure. Denies any more shortness of breath, he is on room air. Blood pressure is borderline, heart rate has been fluctuating significantly. He had cardiac catheterization on July 2020, showed ejection fraction of 30%. Cardiology on the case. Plan to continue same treatment, possible transfer to PCU if heart rate improves.. #2 acute hypoxic respiratory failure: Secondary to #1. Respiratory status improved, he is off oxygen today and his pulse ox is 94%. Plan as above. #3 A. fib with RVR: Heart rate has been anywhere from 100-130, blood pressure is borderline. Patient is on metoprolol 3 times daily and received 1 dose of digoxin this morning. Cardiology on the case, no plan for anticoagulation. Plan as above. #4 septic shock/acute cystitis: Remained on IV Rocephin. He has been afebrile, no leukocytosis. Blood cultures showed no growth in 48 hours. Urine culture revealed Serratia marcescens. Plan to continue same treatment. #5 type 2 diabetes mellitus: Blood sugar stable, continue Accu-Cheks and sliding scale. Sitagliptin/Metformin held. #6 anemia: In context of recent GI bleed. Reportedly, patient had endoscopy recently that showed no acute active bleeding. Today's hemoglobin is 8.1 g/dL. Currently, no active bleeding. Plan to monitor. #7 stage III chronic kidney disease: Baseline creatinine has been around 1.4-2 mg/dL, today's creatinine is 1.39, improving, remained stable at baseline. #8 CAD status post CABG: Stable, continue Plavix, statins. #9 status post pacemaker: This was done for chronic A. fib. #10 DVT prophylaxis: SCDs. This note was generated with [employer] dictation software. It may contain incorrect words, spelling, and punctuation that were not noted in checking the note before signing. Inpatient E&M: [id number] [facility] Hosp L2
[2020-10-24] MEDS: Ceftriaxone 1 GM/50 ML BAG IV (11:16)
[2020-10-24 12:10] LABS: Bedside Glucose 197 mg/dL (70-110)
[2020-10-24] MEDS: Digoxin 125 MCG Tablet PO (13:18)
[2020-10-24] MEDS: Senna/Docusate Sodium 1 Tablet 2 TABLET PO ×2 (13:19→22:58)
--- NOTE | 2020-10-24 16:20 | CASEMGMT ---
Social Work SW met with pt in room to continue discussion about discharge plan. Pt continues to state uncertainty of what to do. Again SW presented options of SNF, home with home health, private duty aid, assisted living, palliative care and hospice. After much discussion pt stating he is worried about returning home as he knows his will expect more out of him than he can actually do. List of in network nursing facilities with star ratings given to pt. Pt deferred decision making to son. Phone call to pt son Watson. After extensive conversation reviewing the above mentioned discharge options, pt functional ability in therapy and concern for wounds, Mason requesting pt go to TCU for short term. Phone call to Carol in TCU and pt name placed on list for TCU. Bed availability is dependent on when pt will be ready for discharge. Mason updated on this. CHARITY will continue to follow for discharge planning and support. Plan: TCU, pending bed availability and precNANNETTE De Luna
[2020-10-24] MEDS: Insulin Lispro 100 UNIT/ML INSULN.PEN SC ×2 (16:53→22:56)
[2020-10-24 17:40] LABS: Bedside Glucose 155 mg/dL (70-110)
[2020-10-24] MEDS: Atorvastatin Calcium 20 MG Tablet PO (22:56)
[2020-10-24] MEDS: Mirtazapine 15 MG Tablet PO (22:58)
[2020-10-24 23:10] LABS: Bedside Glucose 191 mg/dL (70-110)
[2020-10-25] VITALS (17 sets, daily range): BP systolic 92–105; BP diastolic 57–80; PULSE 90–133; RESP 16–19; TEMP 36.4–36.6; O2SAT 94–97
[2020-10-25] MEDS: 0.9% Saline Lock 10 ML Syringe IV ×2 (05:43→09:29)
[2020-10-25 05:50] LABS: Absolute Lymphocyte Count 1.47 X10^3/uL (0.83-4.51); Absolute Neutrophil Count 5.3 X10^3/uL (2.0-7.7); Basophil# 0.05 X10^3/uL; Basophil% 0.7 % (0-1); Hematocrit 27.9 % (40-54); Hemoglobin 8.4 g/dL (13.0-16.5); Lymphocyte # 1.47 X10^3/ul (4.0); Lymphocyte % 19.7 % (19-41); Mean Corp Hgb Conc 30.1 g/dL (32-36); Mean Corpuscular Hgb 28.1 pg (27.0-32.0); Mean Corpuscular Volume 93.3 fL (80-94); Mean Platelet Vol. 10.4 fl (6.2-12.0); Monocyte# 0.59 X10^3/uL; Monocyte% 7.9 % (0-10); NRBC Flagged by Analyzer 0 % (0-5); Neutrophil # 5.32 X10^3/uL (2.7-7.7); Neutrophil % 71.4 % (47-70); Platelet Count 220 K/mm3 (150-450); RBC Distribution Width CV 15.9 % (11.6-14.6); RBC Distribution Width SD 53.5 fl (35.1-43.9); Red Blood Count 2.99 M/mm3 (4.6-6.2); White Blood Count 7.5 K/mm3 (4.4-11.0)
[2020-10-25 06:06] LABS: Anion Gap 4 (5-15); BUN 22 mg/dL (7-18); BUN/Creat Ratio 14.8 RATIO (10-20); Calcium,Total 8.2 mg/dL (8.5-10.1); Chloride 106 mmol/L (98-107); Creatinine, Serum 1.49 mg/dL (0.70-1.30); EST Glomerular Filtration Rate 48 mL/min (>60); Est Glom Filt Rate - Afr Amer 58 mL/min (>60); Estimated Creatinine Clearance 36.54 ml/min; Glucose 119 mg/dL (74-106); Potassium 4.4 mmol/L (3.5-5.1); Sodium Level 138 mmol/L (136-145)
--- NOTE | 2020-10-25 09:06 | PN_ITS ---
Patient Problems: Active and Suspected Problems (Last Reviewed 09/26/20 @ 08:00 by Nilsa Cole) Acute on chronic systolic congestive heart failure (Acute) Subjective: Chief complaint: Follow-up after admission for acute on chronic CHF, A. fib with RVR, acute hypoxic respiratory failure, septic shock secondary to acute c ystitis. Patient seen and examined. No acute events overnight. This morning, patient mentioned that he was confused, thought that time is night and he was waiting for dinner. Now, he is alert and oriented x3. He denied nausea or vomiting, resolved. Denied chest pain or shortness of breath. Denies dizziness or lightheadedness. He is afebrile, heart rate still fluctuating significantly goes up to 130s, blood pressure on the lower side but stable, pulse ox is 95% on room air. - Physical Exam Vitals/I&O's: Vital Signs Temp Pulse Resp BP Pulse Ox 97.8 F 114 H 17 92/66 95 10/25/20 08:00 10/25/20 08:00 10/25/20 08:00 10/25/20 08:00 10/25/20 08:00 Oxygen Flow Rate (L/min) 2 Oxygen Delivery Method Room Air Weight: 149 lb Body Mass Index (BMI) 21.5 Intake and Output for Last 24 Hours 10/23/20 10/24/20 10/25/20 23:59 23:59 23:59 Intake Total 154 / 154 530 / 530 Output Total 859 / 859 500 / 500 150 / 150 Balance -705 / -705 30 / 30 -150 / -150 General: Alert, Oriented x3, Cooperative, No apparent distress HEENT: Atraumatic, PERRLA, EOMI, Normocephalic Oral: Moist Mucosa, No Gingival or Mucosal Lesions/ Ulcerations Neck: Supple, No JVD, Negative Carotid Bruits Lungs: Clear to auscultation, No rhonchi, No wheeze, No rales, Diminished Cardiovascular: Normal S1, Normal S2, PMI Normal, Irregular Rate, Tachycardic Abdomen: Bowel Sounds Present, Soft, Non Tender, Non-Distended, No Hepato- splenomegaly Extremities: No clubbing, No cyanosis, Edema Skin: No rashes, No breakdown Lymphatic: No Cervical, Supraclavicular, or Inguinal Adenopathy Neurological: Cranial nerves II-XII grossly intact, Neuro grossly intact Psych/Mental Status: Normal Affect, Appropriate Microbiology Past 72 Hours 10/19/20 20:10 Blood Culture (Wb) - Anticubital Right Blood Culture - Final No growth in 5 days. 10/19/20 20:10 Blood Culture (Wb) - Anticubital Right Blood Culture - Final No growth in 5 days. 10/21/20 11:15 Wound - Arm Gram Stain - Final 10/21/20 11:15 Wound - Arm Wound Culture - Final No growth aerobically. Laboratory Results 10/24/20 12:00: POC Glucose 197 H 10/24/20 16:46: POC Glucose 155 H 10/24/20 22:54: POC Glucose 191 H 10/25/20 05:40: WBC 7.5, RBC 2.99 L, Hgb 8.4 L, Hct 27.9 L, MCV 93.3, MCH 28.1, MCHC 30.1 L, RDW Std Deviation 53.5 H, RDW Coeff of Shashank 15.9 H, Plt Count 220, MPV 10.4, Immature Gran % (Auto) 0.300, Neut % (Auto) 71.4 H, Lymph % (Auto) 19.7, [place] % (Auto) 7.9, Eos % (Auto) 0.0, Baso % (Auto) 0.7, Absolute Neuts (auto) 5.3, Absolute Lymphs (auto) 1.47, Nucleated RBC % 0 10/25/20 05:40: Sodium 138, Potassium 4.4, Chloride 106, Carbon Dioxide 28.0, Anion Gap 4 L, BUN 22 H, Creatinine 1.49 H, Estim Creat Clear Calc 36.54, Est GFR (MDRD) Af Amer 58 L, Est GFR (MDRD) Non-Af 48 L, BUN/Creatinine Ratio 14.8, Glucose 119 H, Calcium 8.2 L Current Medications Acetaminophen (Acetaminophen 650 Mg Suppository) 650 mg RECTAL Q4H PRN PRN PRN Reason: Pain Score 1-10/Temp > 100.7 F Acetaminophen (Acetaminophen 325 Mg Tablet) 650 mg PO Q6H PRN PRN PRN Reason: Pain Score 1-10/Temp > 100.7 F Al Hydroxide/Mg Hydroxide (Mag Hydrox/Al Hydrox/Simeth 30 Ml Udc) 30 ml PO Q6H PRN PRN PRN Reason: Gastric Burning Albuterol Sulfate (Albuterol 2.5 Mg/3 Ml Vial.Neb.) 2.5 mg INHALATION Q2H PRN PRN PRN Reason: Dyspnea, wheezing Last Admin: 10/23/20 04:23 Dose: 2.5 mg Documented by: Atorvastatin Calcium (Atorvastatin Calcium 20 Mg Tablet) 20 mg PO QHS [facility] Last Admin: 10/24/20 22:56 Dose: 20 mg Documented by: Clopidogrel Bisulfate (Clopidogrel Bisulfate 75 Mg Tablet) 75 mg PO DAILY [facility] Last Admin: 10/24/20 08:27 Dose: 75 mg Documented by: Dextrose (Dextrose 50%-Water 25 Gm/50 Ml Disp.Syrin) 0 gm IV X1 PRN; Protocol PRN Reason: Hypoglycemia Glucagon (Glucagon 1 Mg/Ml Syringe) 1 mg IM .X1 PRN PRN Reason: Hypoglycemia Guaifenesin (Guaifenesin 10 Ml Udc (200mg/10ml)) 10 ml PO Q4H PRN PRN PRN Reason: COUGH Hydralazine HCl (Hydralazine 20 Mg/Ml Vial) 10 mg IV Q4H PRN PRN PRN Reason: SBP > 160 Sodium Chloride () 250 mls @ 15 mls/hr IV .[id number] PRN PRN Reason: Saline Flush Last Infusion: 10/21/20 07:00 Dose: 0 mls/hr Documented by: Sodium Chloride () 250 mls @ 15 mls/hr IV .[id number] PRN PRN Reason: Additional IVPB Infusion Ceftriaxone Sodium (Rocephin) 1 gm in 50 mls @ 100 mls/hr IV Q24 [facility] Stop: 10/28/20 10:01 Last Infusion: 10/24/20 12:05 Dose: Infused Documented by: Insulin Human Lispro (Insulin Lispro 100 Unit/Ml Insuln.Pen) 0 unit SC [facility]; Protocol Last Admin: 10/24/20 22:56 Dose: 2 u Documented by: Magnesium Hydroxide (Magnesium Hydroxide 30 Ml Udc) 30 ml PO DAILY PRN PRN PRN Reason: Constipation Metoprolol Tartrate (Metoprolol Tartrate 25 Mg Tablet) 25 mg PO 1000,1600,2200 [facility] Last Admin: 10/24/20 22:57 Dose: 25 mg Documented by: Mirtazapine (Mirtazapine 15 Mg Tablet) 15 mg PO QHS [facility] Last Admin: 10/24/20 22:58 Dose: 15 mg Documented by: Nitroglycerin (Nitroglycerin (Inpatient Use) 0.4 Mg Tab.Subl) 0.4 mg SUBLINGUAL Q5M PRN PRN Reason: CARDIAC/CHEST PAIN Ondansetron HCl (Ondansetron 4 Mg/2 Ml Vial) 4 mg IV Q8H PRN PRN PRN Reason: NAUSEA/VOMITING Oxycodone HCl (Oxycodone 5 Mg Tablet) 5 mg PO Q4H PRN PRN PRN Reason: Pain Score 4-5 Pantoprazole Sodium (Pantoprazole Sodium 40 Mg Tablet) 40 mg PO BID [facility] Last Admin: 10/24/20 22:58 Dose: 40 mg Documented by: Potassium Chloride (Potassium Chloride 20 Meq Tablet) 20 meq PO DAILY [facility] Last Admin: 10/24/20 08:28 Dose: 20 meq Documented by: Prochlorperazine Edisylate (Prochlorperazine 10 Mg/2 Ml Vial) 5 mg IV Q4H PRN PRN PRN Reason: Breakthrough Nausea/Vomiting Psyllium Hydrophilic Mucilloid (Psyllium 1 Packet) 1 packet PO DAILY PRN PRN PRN Reason: Constipation Senna/Docusate Sodium (Senna/Docusate Sodium 1 Tablet) 2 tablet PO BID [facility] Last Admin: 10/24/20 22:58 Dose: 2 tablet Documented by: Sodium Chloride (0.9% Saline Lock 10 Ml Syringe) 10 - 40 ml IV UD PRN PRN Reason: SALINE FLUSH Last Admin: 10/25/20 05:43 Dose: 20 ml Documented by: Throat Lozenges (Benzocaine/Menthol 1 Lozenge) 1 lozenge MUCOUS MEM Q2H PRN PRN PRN Reason: SORE THROAT Medical Necessity - Tobacco Use Smoking Status: Never smoker Tobacco Use: Non-smoker Assessment/Plan All Active Problems (Last Reviewed 09/26/20 @ 08:00 by Nilsa Cole) Acute respiratory failure with hypoxia (Acute) Septic shock (Acute) Acute on chronic systolic congestive heart failure (Acute) This is an 80 years old male patient presented to the emergency room because of weakness, malaise and not feeling well, found to have acute on chronic systolic congestive heart failure, acute hypoxic respiratory failure, A. fib with RVR as well as septic shock secondary to acute cystitis. #1 acute on chronic systolic CHF: Remained on metoprolol only. He is not on diuretics because of low blood pressure. Denies any more shortness of breath, he is on room air. Blood pressure is borderline, heart rate has been fluctuating significantly. He had cardiac catheterization on July 2020, showed ejection fraction of 30%. Cardiology on the case. Plan to continue same treatment, increase metoprolol to 50 mg p.o. 3 times daily. #2 acute hypoxic respiratory failure: Secondary to #1. Respiratory status improved, he is off oxygen today and his pulse ox is 94%. Plan as above. #3 A. fib with RVR: Heart rate still the same, fluctuating anywhere between 100- 130, blood pressure is borderline. Patient is on metoprolol 3 times daily and received 1 dose of digoxin yesterday. Cardiology on the case, no plan for anticoagulation. Case discussed with cardiology, plan to increase metoprolol to 50 mg p.o. 3 times daily. #4 septic shock/acute cystitis: Remained on IV Rocephin. He has been afebrile, no leukocytosis. Blood cultures showed no growth in 48 hours. Urine culture revealed Serratia marcescens. Plan to continue same treatment. #5 type 2 diabetes mellitus: Blood sugar stable, continue Accu-Cheks and sliding scale. Sitagliptin/Metformin held. #6 anemia: In context of recent GI bleed. Reportedly, patient had endoscopy recently that showed no acute active bleeding. Today's hemoglobin is 8.4 g/dL. Currently, no active bleeding. Plan to monitor. #7 stage III chronic kidney disease: Baseline creatinine has been around 1.4-2 mg/dL, today's creatinine is 1.49, remained stable at baseline. #8 CAD status post CABG: Stable, continue Plavix, statins. #9 status post pacemaker: This was done for chronic A. fib. #10 DVT prophylaxis: SCDs. This note was generated with [employer] software. It may contain incorrect words, spelling, and punctuation that were not noted in checking the note before signing. Inpatient E&M: 87503 Subs Hosp L2
[2020-10-25] MEDS: Senna/Docusate Sodium 1 Tablet 2 TABLET PO ×2 (09:23→20:18)
[2020-10-25] MEDS: Clopidogrel Bisulfate 75 MG Tablet PO (09:23)
[2020-10-25] MEDS: Pantoprazole Sodium 40 MG Tablet PO ×2 (09:24→20:18)
[2020-10-25] MEDS: Ceftriaxone 1 GM/50 ML BAG IV (09:28)
[2020-10-25] MEDS: Metoprolol Tartrate 25 MG Tablet 50 MG PO (10:54)
[2020-10-25 11:50] LABS: Bedside Glucose 191 mg/dL (70-110)
--- NOTE | 2020-10-25 12:00 | CASEMGMT ---
RN CM Note: participated in ICU interdisciplinary rounds. Pt remains on RA, but continues tachycardic. Lopressor to 50 mg po 3x daily, and received one dose Digoxin yesterday. Passed mobility, PT/OT to work with patient today. Regular Diet. Not medically ready for dc today. DC PLan: anticipate TCU on discharge. CHARITY working with pt and family re: dc plan. Irma DEJESUS RN ACM
--- NOTE | 2020-10-25 12:58 | CASEMGMT ---
Social Work CHARITY spoke with Carol in TCU. There will be a bed available on Thursday or possibly Thursday. TCU to contact CHARITY tomorrow morning and update on bed availability. Precert will need obtained prior to admission to TCU. NANNETTE Stephens
--- NOTE | 2020-10-25 16:15 | CHAPLAIN ---
Type of Pastoral Visit ___ Initial Visit _x__ Follow-up Visit ___ On-call Visit ___ General Patient Visit ___ Spiritual Assessment ___ Family Conference ___ Bereavement ___ Rapid Response ___ Code Blue ___ Other (describe below) Pastoral Care Referral From _x__ Patient ___ Family ___ Nurse ___ Physician ___ Pharmacist Aide ___ Hospitality Associate ___ Other (describe below) Sacrament/Intervention _x__ Active listening ___ Anointing ___ Christianity ___ Bereavement ___ Communion _x__ Calista exploration ___ ___ Life review _x__ Prayer ___ Reconciliation ___ Sacrament of Sick _x__ Supportive presence ___ Wedding ___ Other (describe below) Pastoral Comments sat with patient and offered some ideas and positive thoughts centered around his calista perspective; patient welcomed prayer and expressed thankfulness for visit and support
[2020-10-25] MEDS: Metoprolol Tartrate 50 MG Tablet PO ×2 (17:37→20:18)
[2020-10-25 17:56] LABS: Bedside Glucose 146 mg/dL (70-110)
--- NOTE | 2020-10-25 20:09 | NURSING ---
Pt requesting meds be given early.
[2020-10-25] MEDS: Mirtazapine 15 MG Tablet PO (20:18)
[2020-10-25] MEDS: Atorvastatin Calcium 20 MG Tablet PO (20:18)
[2020-10-25 20:31] LABS: Bedside Glucose 180 mg/dL (70-110)
[2020-10-26] VITALS (11 sets, daily range): BP systolic 89–118; BP diastolic 55–63; PULSE 77–130; RESP 18–20; TEMP 35.7–36.7; O2SAT 87–100
[2020-10-26] MEDS: Ondansetron 4 MG/2 ML Vial IV (05:47)
[2020-10-26] MEDS: 0.9% Saline Lock 10 ML Syringe IV ×2 (05:47→11:03)
--- NOTE | 2020-10-26 07:46 | PN.CARD_ITS ---
Subjectve: Patient seen and evaluated. Appears to be stable. Had one short episode of tachycardia asymptomatic Objective: Vital Signs Temp Pulse Resp BP Pulse Ox 97.9 F 130 H 20 H 118/59 L 92 10/26/20 05:59 10/26/20 05:59 10/26/20 05:59 10/26/20 05:59 10/26/20 05:59 Oxygen Flow Rate (L/min) 2 Oxygen Delivery Method Room Air Weight: 151 lb 3 oz Body Mass Index (BMI) 21.5 Intake and Output for Last 24 Hours 10/24/20 10/25/20 10/26/20 23:59 23:59 23:59 Intake Total 530 / 530 370 / 370 Output Total 500 / 500 250 / 350 100 / 100 Balance 30 / 30 120 / 20 -100 / -100 General: Awake, Alert, Oriented x 3 HEENT: PERRL, EOMI, Sclera Non Icteric Neck: Supple, Good ROM, No Lymph Node Enlargement Lungs: Clear to auscultation Cardiovascular: Irregular Rhythm, Normal S1, Normal S2, No Murmurs, No Rubs, No Gallops Rhythm: EKG: ECHO: Stress Test: Cardiac Cath: PCI: CT Surgery: Holter monitor: EPS: PPM: CXR: Chest CT Scan: Medical Necessity - Tobacco Use Smoking Status: Never smoker Tobacco Use: Non-smoker Assessment/Plan 1. Paroxysmal atrial fibrillation I48.0 Patient is Micra pacemaker which appears to be functioning well. * His beta-kelsey dose has been resumed today at metoprolol 50 mg 3 times daily. * We will continue with twice a week digoxin * No anticoagulation at this particular time * At this point in time as patient appears to be more sedentary I think that he can be transitioned to the transitional care unit. * Above discussed with hospitalist and nursing. 2. 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 We will continue to monitor this with routine/scheduled follow-ups. His device check prior to office visit showed MAIL CLERK percent 13.8% impaired longevity greater than 8 years. 3. 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 He denies any chest, arm, jaw, or neck discomfort suggestive of angina. His shortness of breath at this time is thought related to fluid volume overload. His fatigue is thought to be related to medications plus or minus atrial fibrillation. We will continue current medication and continue to monitor. Comprehensive Metabolic Profil 10/09/20 CBC W/Diff, Automated 10/09/20 4. H/O coronary artery bypass surgery Z95.1 CABG x 4: COLES-LAD, SVG-D1, SVG to proximal end of SVG to diagonal going to OM 2, and SVG-RPDA 10/30/16 as noted above his bypass grafts are noted to be patent and I will not recommend that we make any changes with respect to this. 5. Ischemic cardiomyopathy with systolic congestive heart failure I25.5 Plan His most recent heart catheterization in July 2020 showed an ejection fraction of 30%. Patient's BNP upon admission in August 2020 was greater than 5000. He does acknowledge orthopnea. He still has a small amount of pedal edema He does not appear to be a candidate for a biventricular defibrillator but this may be what may need to be considered. His blood pressure has also not been optimal to allow as to use Entresto and/or significant diuretics. I do not think that he is a candidate for long-term dobutamine. After blood pressure improves will consider lower dose beta-kelsey shorter acting 6. Essential hypertension 7. Hyperlipidemia, unspecified hyperlipidemia type E78.5 Plan He is currently not on cholesterol lowering medication. He will continue risk factor and lifestyle modification. His clinical condition is rather guarded at this time. We will continue to optimize his medical therapy with rate control. No major changes to be made at this time. Thank you for allowing me to participate in the care of your patient. Please don't hesitate to call if any issues arise.
[2020-10-26 08:33] LABS: Bedside Glucose 144 mg/dL (70-110)
[2020-10-26] MEDS: Metoprolol Tartrate 50 MG Tablet PO (09:46)
[2020-10-26] MEDS: Pantoprazole Sodium 40 MG Tablet PO (09:47)
[2020-10-26] MEDS: Clopidogrel Bisulfate 75 MG Tablet PO (09:47)
[2020-10-26] MEDS: Ceftriaxone 1 GM/50 ML BAG IV (11:03)
[2020-10-26 11:20] LABS: Bedside Glucose 189 mg/dL (70-110)
--- NOTE | 2020-10-26 11:40 | PCM.TXEXTCAR ---
- Diet 10/20/20 09:01 Diet: Regular - General Is pt able to select menu?: Yes - Routine Orders/Code Status Code Status: DNRCC-A - Wound(s) coccyx Wound Type: Stasis Ulcer left lower forearm Wound Type: Skin Tear Dressing Change: Adaptic - Suggestions for Active Care Change Position every (hours): 3 Hours to sit in a chair: 2 Times a day to sit in chair: 3 - Therapies Weight Bearing: Weight bearing as tolerated Physical Therapy: Eval and Treat Occupational Therapy: Eval and Treat - Allergies/Procedures Done in Hospital Allergies/Adverse Reactions: Allergies spironolactone Allergy (Verified 10/14/20 09:58) severe weakness lisinopril Adverse Reaction (Mild, Verified 10/14/20 09:58) Dry cough amiodarone Adverse Reaction (Verified 10/14/20 09:58) toxicity - Type of Care/Length of Stay Estimated LOS: Convalescent Care Less Than 30 days Type of Care Needed: Skilled Rehab Potential: Fair Prognosis: Fair - Additional Orders/Day of Discharge H&P will serve as current which was dated: 10/19/20 Day of Discharge: 10/26/20 - Dietary and Speech Recommendations Dietitian Recommendations/Changes: Continue regular diet as tolerated. - Follow Up Care Primary Care Physician: Abdoulaye Brock MD [Primary Care Provider] - Please follow up with your Primary Care Physician in: 1 week. Please Follow Up With: Jason Lemus MD When: 2 weeks.
--- NOTE | 2020-10-26 12:20 | DS.PCM_ITS ---
Discharge Date and Diagnosis - Problem List Patient Problems: Active and Suspected Problems (Last Reviewed 09/26/20 @ 08:00 by Nilsa Cole) Acute on chronic systolic congestive heart failure (Acute) Date of Admission: 10/19/20 Date of Discharge: 10/26/20 - Primary Discharge Diagnosis Acute Problems: Active Problems (Last Reviewed 09/26/20 @ 08:00 by Nilsa Cole) #1 acute on chronic systolic CHF. #2 acute hypoxic respiratory failure, resolved. #3 A. fib with RVR. #4 septic shock. #5 Serratia marcescens acute cystitis. #6 chronic anemia, recent GI bleed. 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 Bradycardia (Chronic) Atherosclerosis of coronary artery of [place] heart with angina pectoris (Chronic) History of non-ST elevation myocardial infarction (NSTEMI) (Chronic 05/2017) 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) CABG x 4: COLES-LAD, SVG-D1, SVG to proximal end of SVG to diagonal going to OM 2, and SVG-RPDA 10/30/16 Ischemic cardiomyopathy (Chronic) Secondary pulmonary arterial hypertension (Chronic) Left bundle branch block (LBBB) (Chronic) Essential (primary) hypertension (Chronic) Hyperlipidemia (Chronic) Hospital Course and Treatment Imaging Results: Clinical Impression(s) from Imaging Studies Chest X-Ray 10/19/20 20:10 IMPRESSION: Mild to moderate CHF Electronically Signed: Vargas Johnson MD at 21:26 EST , Service support , Chest X-Ray 10/19/20 22:41 IMPRESSION: Adequate position of newly placed right IJ central venous catheter without evidence of complications from placement of the catheter.. at 2326 Reported and signed by: Mil Rader MD Electronically Signed: Mil Rader MD at 23:25 EST Tel , Service support , Chest X-Ray 10/20/20 05:55 IMPRESSION: No change. Left basilar lung disease and pleural effusions. at 0519 Reported and signed by: Mil Rader MD Electronically Signed: Mil Rader MD at 5:18 EST Tel , Service support , Consultations 10/21/20 11:01 Consult: Onc/Wound/public health veterinarian Routine Comment: Reason for Consult:: Left wrist/lower forearm- old skin tear has yellow discharge Dr. Dumont, Dr. Cedeño, critical care. Dr. Lemus, cardiology. Operations: None Procedures: None Summary of Care Provided: Patient seen and examined on the day of discharge and appeared to be stable to be discharged to TCU. Apart from mild weakness, no other complaints. He denied any more nausea. Denied palpitation, dizziness or lightheadedness. Heart rate has been ranging anywhere from 100-1 120s, blood pressure is borderline but stable at baseline. This is an 80 years old male patient presented to the emergency room because of weakness, malaise and not feeling well, found to have acute on chronic systolic congestive heart failure, acute hypoxic respiratory failure, A. fib with RVR as well as septic shock secondary to acute cystitis. #1 acute on chronic systolic CHF: Patient was admitted to intensive care unit be cause of septic shock, was started on IV vasopressors. He is here with intermittent Lasix for diuresis. He was only on metoprolol for CHF. He had cardiac catheterization on July 2020, showed ejection fraction of 30%. His symptoms improved and he was able to come off oxygen. He was discharged on small dose of Lasix and metoprolol 50 mg p.o. 3 times daily. #2 acute hypoxic respiratory failure: Secondary to #1. Respiratory status improved, he is off oxygen and upon discharge, his pulse ox is 94% on room air. Patient does not need oxygen upon discharge. #3 A. fib with RVR: Heart rate has been fluctuating significantly throughout the hospital stay. It was challenging because his blood pressure was borderline. He was given digoxin intermittently as well as metoprolol. Metoprolol was gradually increased to 50 mg p.o. 3 times daily because of borderline blood pressure. Heart rate remained around 100 210, blood pressure systolic was around 85-100. Patient discharged on metoprolol 50 mg p.o. 3 times daily in addition to digoxin twice a week according to cardiology recommendations. No anticoagulation was prescribed at this time. #4 septic shock/acute cystitis: Treated with IV Lasix, IV fluids and vasopressors. Blood pressure improved but remained borderline.. He has been afebrile, no leukocytosis. Blood cultures showed no growth in 48 hours. Urine culture revealed Serratia marcescens. He was discharged on Keflex 500 mg p.o. 3 times daily to complete total 7 days of treatment. #5 type 2 diabetes mellitus: Blood sugar has been stable, continued on sitagliptin/Metformin upon discharge. #6 anemia: In context of recent GI bleed. Reportedly, patient had endoscopy recently that showed no acute active bleeding. Discharge hemoglobin is 8.4 g/dL. #7 stage III chronic kidney disease: Baseline creatinine has been around 1.4-2 mg/dL, discharged creatinine is 1.49, remained stable at baseline. #8 CAD status post CABG: Stable, continued on Plavix, statins. Patient discharged to TCU in a stable condition, discharged on Keflex 3 times daily to complete total of 7 days of treatment, discharged on metoprolol 50 mg p.o. 3 times daily along with digoxin twice a week, no anticoagulation prescribed, continued on his other previous medications, started back on Lasix 20 mg p.o. daily, no oxygen needed upon discharge, plan to follow-up with PCP in 1 week and follow-up with cardiology in 2 weeks. This note was generated with [employer]och[employer] software. It may contain incorrect words, spelling, and punctuation that were not noted in checking the note before signing. Patient Problems: Active and Suspected Problems (Last Reviewed 09/26/20 @ 08:00 by Nilsa Cole) Acute on chronic systolic congestive heart failure (Acute) - Physical Exam Vitals/I&O's: Vital Signs Temp Pulse Resp BP Pulse Ox 96.3 F L 105 H 18 110/55 L 98 10/26/20 09:32 10/26/20 09:46 10/26/20 09:32 10/26/20 09:46 10/26/20 09:32 Oxygen Flow Rate (L/min) 2 Oxygen Delivery Method Room Air Weight: 151 lb 3 oz Body Mass Index (BMI) 21.5 Intake and Output for Last 24 Hours 10/24/20 10/25/20 10/26/20 23:59 23:59 23:59 Intake Total 530 / 530 370 / 370 Output Total 500 / 500 250 / 350 100 / 100 Balance 30 / 30 120 / 20 -100 / -100 General: Alert, Oriented x3, Cooperative, No apparent distress HEENT: Atraumatic, PERRLA, EOMI, Normocephalic Oral: Moist Mucosa, No Gingival or Mucosal Lesions/ Ulcerations Neck: Supple, No JVD, Negative Carotid Bruits, Trachea Midline, Thyroid Normal Size and Texture Lungs: Clear to auscultation, No rhonchi, No wheeze, No rales, Diminished Cardiovascular: Normal S1, Normal S2, PMI Normal, Irregular Rate Abdomen: Bowel Sounds Present, Soft, Non Tender, Non-Distended, No Hepato- splenomegaly Extremities: No clubbing, No cyanosis, Edema Skin: No rashes, No breakdown Lymphatic: No Cervical, Supraclavicular, or Inguinal Adenopathy Neurological: Cranial nerves II-XII grossly intact, Neuro grossly intact Psych/Mental Status: Normal Affect, Appropriate Microbiology Past 72 Hours 10/19/20 20:10 Blood Culture (Wb) - Anticubital Right Blood Culture - Final No growth in 5 days. 10/19/20 20:10 Blood Culture (Wb) - Anticubital Right Blood Culture - Final No growth in 5 days. 10/21/20 11:15 Wound - Arm Gram Stain - Final 10/21/20 11:15 Wound - Arm Wound Culture - Final No growth aerobically. Laboratory Results 10/25/20 17:34: POC Glucose 146 H 10/25/20 20:16: POC Glucose 180 H 10/26/20 06:52: POC Glucose 144 H 10/26/20 11:15: POC Glucose 189 H Current Medications Acetaminophen (Acetaminophen 650 Mg Suppository) 650 mg RECTAL Q4H PRN PRN PRN Reason: Pain Score 1-10/Temp > 100.7 F Acetaminophen (Acetaminophen 325 Mg Tablet) 650 mg PO Q6H PRN PRN PRN Reason: Pain Score 1-10/Temp > 100.7 F Al Hydroxide/Mg Hydroxide (Mag Hydrox/Al Hydrox/Simeth 30 Ml Udc) 30 ml PO Q6H PRN PRN PRN Reason: Gastric Burning Albuterol Sulfate (Albuterol 2.5 Mg/3 Ml Vial.Neb.) 2.5 mg INHALATION Q2H PRN PRN PRN Reason: Dyspnea, wheezing Last Admin: 10/23/20 04:23 Dose: 2.5 mg Documented by: Atorvastatin Calcium (Atorvastatin Calcium 20 Mg Tablet) 20 mg PO QHS [facility] Last Admin: 10/25/20 20:18 Dose: 20 mg Documented by: Clopidogrel Bisulfate (Clopidogrel Bisulfate 75 Mg Tablet) 75 mg PO DAILY [facility] Last Admin: 10/26/20 09:47 Dose: 75 mg Documented by: Dextrose (Dextrose 50%-Water 25 Gm/50 Ml Disp.Syrin) 0 gm IV X1 PRN; Protocol PRN Reason: Hypoglycemia Glucagon (Glucagon 1 Mg/Ml Syringe) 1 mg IM .X1 PRN PRN Reason: Hypoglycemia Guaifenesin (Guaifenesin 10 Ml Udc (200mg/10ml)) 10 ml PO Q4H PRN PRN PRN Reason: COUGH Hydralazine HCl (Hydralazine 20 Mg/Ml Vial) 10 mg IV Q4H PRN PRN PRN Reason: SBP > 160 Sodium Chloride () 250 mls @ 15 mls/hr IV .[id number] PRN PRN Reason: Saline Flush Last Infusion: 10/21/20 07:00 Dose: 0 mls/hr Documented by: Sodium Chloride () 250 mls @ 15 mls/hr IV .[id number] PRN PRN Reason: Additional IVPB Infusion Ceftriaxone Sodium (Rocephin) 1 gm in 50 mls @ 100 mls/hr IV Q24 [facility] Stop: 10/28/20 10:01 Last Admin: 10/26/20 11:03 Dose: 100 mls/hr Documented by: Insulin Human Lispro (Insulin Lispro 100 Unit/Ml Insuln.Pen) 0 unit SC ACHS [facility]; Protocol Last Admin: 10/26/20 06:52 Dose: Not Given Documented by: Magnesium Hydroxide (Magnesium Hydroxide 30 Ml Udc) 30 ml PO DAILY PRN PRN PRN Reason: Constipation Metoprolol Tartrate (Metoprolol Tartrate 50 Mg Tablet) 50 mg PO 1000,1600,2200 [facility] Last Admin: 10/26/20 09:46 Dose: 50 mg Documented by: Mirtazapine (Mirtazapine 15 Mg Tablet) 15 mg PO QHS [facility] Last Admin: 10/25/20 20:18 Dose: 15 mg Documented by: Nitroglycerin (Nitroglycerin (Inpatient Use) 0.4 Mg Tab.Subl) 0.4 mg SUBLINGUAL Q5M PRN PRN Reason: CARDIAC/CHEST PAIN Ondansetron HCl (Ondansetron 4 Mg/2 Ml Vial) 4 mg IV Q8H PRN PRN PRN Reason: NAUSEA/VOMITING Last Admin: 10/26/20 05:47 Dose: 4 mg Documented by: Oxycodone HCl (Oxycodone 5 Mg Tablet) 5 mg PO Q4H PRN PRN PRN Reason: Pain Score 4-5 Pantoprazole Sodium (Pantoprazole Sodium 40 Mg Tablet) 40 mg PO BID [facility] Last Admin: 10/26/20 09:47 Dose: 40 mg Documented by: Potassium Chloride (Potassium Chloride 20 Meq Tablet) 20 meq PO DAILY [facility] Last Admin: 10/26/20 09:46 Dose: 20 meq Documented by: Prochlorperazine Edisylate (Prochlorperazine 10 Mg/2 Ml Vial) 5 mg IV Q4H PRN PRN PRN Reason: Breakthrough Nausea/Vomiting Psyllium Hydrophilic Mucilloid (Psyllium 1 Packet) 1 packet PO DAILY PRN PRN PRN Reason: Constipation Senna/Docusate Sodium (Senna/Docusate Sodium 1 Tablet) 2 tablet PO BID [facility] Last Admin: 10/26/20 09:47 Dose: Not Given Documented by: Sodium Chloride (0.9% Saline Lock 10 Ml Syringe) 10 - 40 ml IV UD PRN PRN Reason: SALINE FLUSH Last Admin: 10/26/20 11:03 Dose: 10 ml Documented by: Throat Lozenges (Benzocaine/Menthol 1 Lozenge) 1 lozenge MUCOUS MEM Q2H PRN PRN PRN Reason: SORE THROAT Home Medications: Medications to take at Discharge Acetaminophen [Tylenol] 1,000 mg PO Q6H PRN PRN tab 09/19/20 Digoxin [Lanoxin] 1.25 mcg PO .twice a week 10/19/20 Cephalexin [Keflex] 500 mg PO Q8 10/26/20 Clopidogrel Bisulfate [Clopidogrel] 75 mg PO QDAY 10/26/20 Furosemide [Lasix] 20 mg PO DAILY 10/26/20 Metoprolol Tartrate [Lopressor (beta kelsey)] 50 mg PO 1000,1600,2200 10/26/20 Mirtazapine [Remeron] 15 mg PO QHS 10/26/20 Pantoprazole Sodium 40 mg PO DAILY 10/26/20 Rosuvastatin Calcium 10 mg PO DAILY 10/26/20 Sitagliptin Phos/Metformin HCl [Janumet 50-1,000 mg Tablet] 1 tab PO BID 10/26/20 Primary Care Physician: Abdoulaye Brock MD [Primary Care Provider] - Please follow up with your Primary Care Physician in: 1 week. Please Follow Up With: Jason Lemus MD When: 2 weeks. Disposition: [facility] facility Minutes spent on discharge:: 32 Patient Condition:: Stable Medical Necessity - Tobacco Use Smoking Status: Never smoker Tobacco Use: Non-smoker Meaningful Use Info Meaningful Use Diagnoses (Choose all that apply): CHF - CHF SHASHA/ARB ordered at discharge?: No Reason SHASHA/ARB not ordered?: Worsening renal disease Documented LVEF (%): 30 Inpatient E&M: [id number] Disch Hosp
--- NOTE | 2020-10-26 12:29 | CASEMGMT ---
Patient was approved by insurance to go to TCU. SW notified physician, RN, patient, senior java engineer, and his son via phone. Plan: d/c to [facility] under skilled level of care. Nichol MCDANIEL
[2020-10-26 16:21] LABS: Bedside Glucose 185 mg/dL (70-110)
[2020-10-26] MEDS: Insulin Lispro 100 UNIT/ML INSULN.PEN SC (17:25)
== END 2020-10-26 18:29 | disposition skilled nursing facility (03) | DRG 871 ==
LOC: ED 20:12 → ICU 23:27 → PCU 10-25 17:44
PROVIDERS: Internal Medicine; Internal Medicine Critical Care Medicine; Admitting Provider Family Medicine; Emergency Provider Emergency Medicine; PCP Family Medicine; Visit Provider Hospitalist
DX: A41.53 Sepsis due to Serratia (principal); I50.43 Acute on chronic combined systolic (congestive) and diastolic (congestive) heart failure; J96.01 Acute respiratory failure with hypoxia; R65.21 Severe sepsis with septic shock; I13.0 Hypertensive heart and chronic kidney disease with heart failure and stage 1 through stage 4 chronic kidney disease, or unspecified chronic kidney disease; I48.19 Other persistent atrial fibrillation; N30.00 Acute cystitis without hematuria; I24.8 Other forms of acute ischemic heart disease; I47.2 Ventricular tachycardia; I25.10 Atherosclerotic heart disease of native coronary artery without angina pectoris; N18.30 Chronic kidney disease, stage 3 unspecified; E11.22 Type 2 diabetes mellitus with diabetic chronic kidney disease; I25.5 Ischemic cardiomyopathy; E78.5 Hyperlipidemia, unspecified; K21.9 Gastro-esophageal reflux disease without esophagitis; I44.7 Left bundle-branch block, unspecified; I27.21 Secondary pulmonary arterial hypertension; K22.70 Barrett's esophagus without dysplasia; D64.9 Anemia, unspecified; E87.5 Hyperkalemia; F41.8 Other specified anxiety disorders; I25.2 Old myocardial infarction; Z86.73 Personal history of transient ischemic attack (TIA), and cerebral infarction without residual deficits; Z95.1 Presence of aortocoronary bypass graft; Z95.810 Presence of automatic (implantable) cardiac defibrillator; Z87.19 Personal history of other diseases of the digestive system
CPT/HCPCS: 51702; 71045; 80048; 80053; 80162; 81001; 82962; 83605; 83735; 83880; 84145; 84484; 85014; 85018; 85025; 85027; 85610; 85730; 86850; 86900; 86901; 87040; 87070; 87077; 87086; 87088; 87186; 87205; 87449; 87633; 87635; 87641; 93005; 94002; 94640; 97110; 97116; 97162; 97165; 97530; 97535; 97802; 97803; 99251; 99285; J7040; J7050; A4216; C1751; G0463; J1940; J2405; U0002

== ENCOUNTER 2020-10-26 18:34 | Inpatient (IN) | payer MEDICARE, SELFPAY ==
[2020-10-20 11:09] VITALS: BMI 21.5
[2020-10-26 18:45] VITALS: BMI 21.9; BMI 22.0
--- NOTE | 2020-10-26 18:55 | NURSING ---
GERMÁN Hartley from [facility] called and reported lopressor held this evening d/t low BP 89/57 HR 106.
[2020-10-26 19:10] VITALS: BP 95/64; PULSE 66; RESP 16; TEMP 36.1; O2SAT 90
[2020-10-26 19:40] VITALS: BP 90/62; PULSE 59; RESP 15; O2SAT 90
[2020-10-26 20:00] VITALS: PULSE 64; RESP 15
[2020-10-26 20:08] VITALS: PULSE 66
[2020-10-26] MEDS: Atorvastatin Calcium 20 MG Tablet PO (20:08)
[2020-10-26] MEDS: Mirtazapine 15 MG Tablet PO (20:11)
--- NOTE | 2020-10-26 21:27 | PCM.HP.STD ---
Problem List (1) Debility Status: Acute (2) Urinary tract infection Status: Acute (3) Acute respiratory failure Status: Acute (4) Atrial fibrillation with rapid ventricular response Status: Acute (5) GERD (gastroesophageal reflux disease) Status: Chronic (6) Septic shock Status: Acute (7) Acute on chronic systolic congestive heart failure Status: Acute (8) Hypokalemia Status: Chronic (9) Coronary artery disease Status: Chronic (10) Chronic kidney disease Status: Chronic Qualifiers: (11) Hypertension Status: Chronic Qualifiers: (12) Diabetes mellitus Status: Chronic Qualifiers: (13) Prostate cancer Status: Chronic (14) Hyperlipidemia Status: Chronic Qualifiers: History of Present Illness Date of Admission: 10/26/20 Chief Complaint: Here for rehabilitation, strengthening, prior to discharge home with . 10/19/2020 The patient is a 80 year old Male with below past medical history presented to [facility] Emergency Department with chief complaint, I feel bad like I'm going to . 10/19/2020 EKG atrial fibrillation with rapid ventricular response, left bundle branch block. 10/19/2020 Chest X-ray mild to moderate congestive heart failure. Discharged from [facility] 1 day prior for upper GI bleed. EGD 2 days prior, no blood transfusion necessary. Weak, nauseous, negative COVID test 2 days prior. Hypotension despite normal saline 500cc IV bolus. Right IJ line placed. Treated for septic shock with Zosyn, Vancomycin, Levophed. 10/19/2020 Admit to ICU. Metoprolol only for acute on chronic systolic congestive heart failure, EF 30%. No diuretics due to hypotension. Acute respiratory failure improved, off oxygen, on RA. Metoprolol 50MG TID for atrial fibrillation with rapid ventricular response, Digoxin x 1 dose given. Serratia Marcescens UTI treated with IV Rocephin, blood cultures negative to date. 10/26/2020 Admit to TCU with debility, here for rehabilitation, strengthening, prior to discharge home with . Past Medical History Past Medical History (Chronic Problems): Chronic Problems (Last Reviewed 09/26/20 @ 08:00 by Nilsa Cole) GERD (gastroesophageal reflux disease) (Chronic) Hypokalemia (Chronic) Coronary artery disease (Chronic) Chronic kidney disease (Chronic) Hypertension (Chronic) Diabetes mellitus (Chronic) Prostate cancer (Chronic) Depression (Chronic) Chronic systolic congestive heart failure (Chronic) Diabetes mellitus type 2 in nonobese (Chronic) Anxiety (Chronic) Persistent atrial fibrillation (Chronic) History of permanent cardiac pacemaker placement (Chronic 08/16/20) VVI 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 Bradycardia (Chronic) Atherosclerosis of coronary artery of [place] heart with angina pectoris (Chronic) History of non-ST elevation myocardial infarction (NSTEMI) (Chronic 05/2017) 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) CABG x 4: COLES-LAD, SVG-D1, SVG to proximal end of SVG to diagonal going to OM 2, and SVG-RPDA 10/30/16 Ischemic cardiomyopathy (Chronic) Secondary pulmonary arterial hypertension (Chronic) Left bundle branch block (LBBB) (Chronic) Essential (primary) hypertension (Chronic) Hyperlipidemia (Chronic) Medical History: Medical History (Last Reviewed 09/26/20 @ 08:00 by Nilsa Cole) Persistent atrial fibrillation (Chronic) I48.19 Atherosclerosis of coronary artery of [place] heart with angina pectoris (Chronic) I25.119 History of non-ST elevation myocardial infarction (NSTEMI) (Chronic) Onset Date: 05/2017 I25.2 Ischemic cardiomyopathy (Chronic) I25.5 Secondary pulmonary arterial hypertension (Chronic) I27.21 Left bundle branch block (LBBB) (Chronic) I44.7 Essential (primary) hypertension (Chronic) I10 Hyperlipidemia (Chronic) E78.5 Barretts esophagus K22.70 Bilateral pleural effusion Onset Date: 11/2019 J90 CKD (chronic kidney disease) N18.9 Prostate cancer C61 Transient ischemic attack G45.9 Type 2 diabetes mellitus E11.9 Allergies spironolactone Allergy (Verified 10/14/20 09:58) severe weakness lisinopril Adverse Reaction (Mild, Verified 10/14/20 09:58) Dry cough amiodarone Adverse Reaction (Verified 10/14/20 09:58) toxicity Home Medications: Ambulatory Orders Medication Instructions Recorded Acetaminophen [Tylenol] 1,000 mg PO Q6H PRN PRN tab 09/19/20 Digoxin [Lanoxin] 1.25 mcg PO .twice a week 10/19/20 Cephalexin [Keflex] 500 mg PO Q8 10/26/20 Clopidogrel Bisulfate [Clopidogrel] 75 mg PO QDAY 10/26/20 Furosemide [Lasix] 20 mg PO DAILY 10/26/20 Metoprolol Tartrate [Lopressor 50 mg PO 1000,1600,2200 10/26/20 (beta kelsey)] Mirtazapine [Remeron] 15 mg PO QHS 10/26/20 Pantoprazole Sodium 40 mg PO DAILY 10/26/20 Rosuvastatin Calcium 10 mg PO DAILY 10/26/20 Sitagliptin Phos/Metformin HCl 1 tab PO BID 10/26/20 [Janumet 50-1,000 mg Tablet] Surgical History: Surgical History (Last Reviewed 09/26/20 @ 08:00 by Nilsa Cole) History of permanent cardiac pacemaker placement (Chronic) Onset Date: 08/16/20 Z95.0 VVI 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 H/O coronary artery bypass surgery (Chronic) Onset Date: 10/30/16 Z95.1 CABG x 4: COLES-LAD, SVG-D1, SVG to proximal end of SVG to diagonal going to OM 2, and SVG-RPDA 10/30/16 History of cardioversion Onset Date: 03/30/20 Z98.890 History of colonoscopy Z98.890 History of dental surgery Z92.89 History of esophagogastroduodenoscopy (EGD) Z98.890 History of left heart catheterization Onset Date: 08/13/20 Z98.890 [place] 07/23/2018, 08/13/20 History of prostatectomy Z90.79 Surgical History: coronary bypass surgery - x 4., pacemaker implantation, - - Prostatectomy, cardioversion, oral surgery. Psychiatric History: Anxiety, Depression Lives: Spouse/ Significant Other Smoking Status: Never smoker Tobacco Use: Non-smoker Alcohol: None Drugs: None - *Family History Paternal Family History: Family History (Last Reviewed 09/26/20 @ 08:00 by Nilsa Cole) Sister Diabetes Sister Colon cancer Diabetes CVA (cerebral vascular accident) Sister Diabetes Brother Heart disease Diabetes History Items: - - Patient denies any market maternal or paternal family history including heart disease, diabetes, cancer. Maternal Family History: Family History (Last Reviewed 09/26/20 @ 08:00 by Nilsa Cole) Sister Diabetes Sister Colon cancer Diabetes CVA (cerebral vascular accident) Sister Diabetes Brother Heart disease Diabetes History Items: - - Patient denies any market maternal or paternal family history including heart disease, diabetes, cancer. Sibling Family History: Family History (Last Reviewed 09/26/20 @ 08:00 by Nilsa Cole) Sister Diabetes Sister Colon cancer Diabetes CVA (cerebral vascular accident) Sister Diabetes Brother Heart disease Diabetes History Items: - - Patient has siblings with diabetes, heart disease, strokes, colon cancer. Review of Systems Constitutional: Reports: Weakness, Fatigue. Denies: Chills, Fever, Weight Change HEENT: Denies: Head Aches, Sinus Congestion, Sinus Drainage Cardiovascular: Denies: Chest Pain, Palpitations Respiratory: Denies: Cough, Shortness of breath at rest, Sputum production Gastrointestinal: Denies: Abdominal Pain, Nausea, Vomiting Genitourinary: Denies: Dysuria Musculoskeletal: Denies: Joint Pain, Joint Tenderness Skin: Denies: Rash, Wounds Neurological: Denies: Numbness, Tingling, Focal weakness Psychiatric: Denies: Anxiety, Depression, Homicidal Ideations, Suicidal Ideations Hematologic/ Lymphatic: Denies: Easy Bruising, Easy Bleeding VTE Information - Inpt Only VTE Present on Admission: No VTE Mechan Device Prophylaxis: Knee High OSMAR Hose VTE Pharm Prophylaxis ordered?: No Reason prophylaxis not ordered:: Medical Contraindication Patient Problems: Active and Suspected Problems (Last Reviewed 09/26/20 @ 08:00 by Nilsa Cole) Debility (Acute) Urinary tract infection (Acute) Acute respiratory failure (Acute) Atrial fibrillation with rapid ventricular response (Acute) Septic shock (Acute) Acute on chronic systolic congestive heart failure (Acute) - Physical Exam Vitals/I&O's: Vital Signs Pulse 66 10/26/20 20:08 Body Mass Index (BMI) 21.5 General: Alert, Oriented x3, Cooperative HEENT: Atraumatic, PERRLA, EOMI, Normocephalic Neck: Supple, No JVD, Negative Carotid Bruits Lungs: Clear to auscultation, Normal air movement Cardiovascular: No murmurs, - - Irregularly irregular. Abdomen: Bowel Sounds Present, Soft, Non Tender Extremities: No edema, Capillary Refill Less than 3 Seconds Skin: No rashes, No breakdown Musculoskeletal: No Tenderness to Palpation of Joints or Extremities Neurological: Cranial nerves II-XII grossly intact Psych/Mental Status: Normal Affect, Appropriate Current Medications Acetaminophen (Acetaminophen 500 Mg Tablet) 1,000 mg PO Q6H PRN PRN PRN Reason: Pain Score 1-10 Atorvastatin Calcium (Atorvastatin Calcium 20 Mg Tablet) 20 mg PO QHS [facility] Last Admin: 10/26/20 20:08 Dose: 20 mg Documented by: Cephalexin (Cephalexin 500 Mg Capsule) 500 mg PO Q12 CUAUHTEMOC Stop: 10/29/20 18:01 Clopidogrel Bisulfate (Clopidogrel Bisulfate 75 Mg Tablet) 75 mg PO DAILY [facility] Digoxin (Digoxin 125 Mcg Tablet) 62.5 mcg PO MoFr@0600 [facility] Furosemide (Furosemide 20 Mg Tablet) 20 mg PO DAILY [facility] Linagliptin (Linagliptin 5 Mg Tablet) 5 mg PO DAILY [facility] Metformin HCl (Metformin Hcl 1,000 Mg Tablet) 1,000 mg PO BIDCM [facility] Metoprolol Tartrate (Metoprolol Tartrate 50 Mg Tablet) 50 mg PO 1000,1600,2200 [facility] Last Admin: 10/26/20 20:08 Dose: Not Given Documented by: Mirtazapine (Mirtazapine 15 Mg Tablet) 15 mg PO QHS [facility] Last Admin: 10/26/20 20:11 Dose: 15 mg Documented by: Pantoprazole Sodium (Pantoprazole Sodium 40 Mg Tablet) 40 mg PO DAILY [facility] Tuberculin PPD (Tuberculin,Purif.Prot.Deriv. 50 Tu/Ml Vial) 5 tu ID X1 ONE Stop: 10/27/20 10:01 Tuberculin PPD (Tuberculin,Purif.Prot.Deriv. 50 Tu/Ml Vial) 5 tu ID X1 ONE Stop: 11/03/20 10:01 Assessment/Plan All Active Problems (Last Reviewed 09/26/20 @ 08:00 by Nilsa Cole) Debility (Acute) Urinary tract infection (Acute) Acute respiratory failure (Acute) Atrial fibrillation with rapid ventricular response (Acute) Acute respiratory failure with hypoxia (Acute) Septic shock (Acute) Acute on chronic systolic congestive heart failure (Acute) 80 year old male with below past medical history hospitalized for septic shock secondary to urinary tract infection, complicated by acute on chronic systolic congestive heart failure, atrial fibrillation with rapid ventricular rate, acute respiratory failure, admitted to TCU with debility, here for rehabilitation, strengthening, prior to discharge home with . Debility - PT/OT. Pain - Tylenol 1000MG Q6H PRN pain (1-10). Bowel - Miralax 17GM daily, Senna/colace 1 tablet BID, MOM 30ML daily PRN, Dulcolax 10MG MO daily PRN. Adult immunization - Administer Prevnar 13, Pneumovax 23, Fluzone, COVID19 vaccine as appropriate. DVT prophylaxis - Hold, recent UGIB. Hyperlipidemia - Atorvastatin 20MG QHS. UTI - Cipro 250MG BID thru 10/29/2020. Coronary Artery Disease - Metoprolol 50MG TID, Plavix 75MG daily. Acute on chronic systolic congestive heart failure - Metoprolol 50MG TID, Digoxin 62.5MG 2 days/week, Lasix 20MG daily, Entresto intolerable due to hypotension, kidney insufficiency. Check Digoxin level, resident complains of nausea. Diabetes Mellitus II - Metformin 1000MG BID, Tradjenta 5MG daily. Appetite loss/depression/insomnia - Mirtazapine 15MG QHS, stable chronic residential use, GDR not recommended. GERD/UGIB - Pantoprazole 40MG daily indefinitely.
[2020-10-26 21:36] LABS: Bedside Glucose 198 mg/dL (70-110)
[2020-10-26 23:01] LABS: Digoxin Level 0.89 ng/mL (0.80-2.00)
[2020-10-27] MEDS: Clopidogrel Bisulfate 75 MG Tablet PO (05:21)
[2020-10-27] MEDS: LINAGLIPTIN 5 MG TABLET PO (05:21)
[2020-10-27] MEDS: Pantoprazole Sodium 40 MG Tablet PO (05:21)
[2020-10-27] MEDS: Furosemide 20 MG Tablet PO (05:21)
[2020-10-27] MEDS: Senna/Docusate Sodium 1 Tablet PO ×2 (05:22→16:58)
[2020-10-27] MEDS: Ciprofloxacin 250 MG Tablet PO ×2 (05:22→16:58)
[2020-10-27 05:26] VITALS: BP 103/66; PULSE 100; RESP 14; TEMP 36.6; O2SAT 95
[2020-10-27 06:25] LABS: Bedside Glucose 195 mg/dL (70-110)
[2020-10-27 07:09] LABS: Absolute Lymphocyte Count 1.27 X10^3/uL (0.83-4.51); Absolute Neutrophil Count 6.6 X10^3/uL (2.0-7.7); Basophil# 0.07 X10^3/uL; Basophil% 0.8 % (0-1); Hematocrit 30.2 % (40-54); Hemoglobin 8.7 g/dL (13.0-16.5); Lymphocyte # 1.27 X10^3/ul (4.0); Lymphocyte % 14.8 % (19-41); Mean Corp Hgb Conc 28.8 g/dL (32-36); Mean Corpuscular Hgb 27.7 pg (27.0-32.0); Mean Corpuscular Volume 96.2 fL (80-94); Mean Platelet Vol. 11.1 fl (6.2-12.0); Monocyte# 0.62 X10^3/uL; Monocyte% 7.2 % (0-10); NRBC Flagged by Analyzer 0 % (0-5); Platelet Count 223 K/mm3 (150-450); RBC Distribution Width CV 15.9 % (11.6-14.6); Red Blood Count 3.14 M/mm3 (4.6-6.2); White Blood Count 8.6 K/mm3 (4.4-11.0)
[2020-10-27 08:27] LABS: Anion Gap 7 (5-15); BUN 31 mg/dL (7-18); BUN/Creat Ratio 15.5 RATIO (10-20); Calcium,Total 8.6 mg/dL (8.5-10.1); Chloride 106 mmol/L (98-107); EST Glomerular Filtration Rate 34 mL/min (>60); Est Glom Filt Rate - Afr Amer 41 mL/min (>60); Estimated Creatinine Clearance 27.11 ml/min; Glucose 192 mg/dL (74-106); Potassium 5.4 mmol/L (3.5-5.1); Sodium Level 137 mmol/L (136-145)
[2020-10-27] MEDS: metFORMIN HCl 1,000 MG Tablet 1000 MG PO ×2 (09:32→16:57)
[2020-10-27 09:33] VITALS: PULSE 100
[2020-10-27] MEDS: Metoprolol Tartrate 50 MG Tablet PO ×2 (09:33→16:56)
--- NOTE | 2020-10-27 11:04 | NURSING ---
Therapy called this nurse to room. Pt c/o of not feeling well and nauseated. BP 116/66 P131 Temp. 97.0 SPO2 [address] oTscano updated him on K+ 5.4 ordered Kayexalate 15mg 1x dose repeat BMP 10/28. Dr. Toscano stated if he still isn't feeling well he is able to be sent to ER per pt. request. Pt States he doesn't feel strong enough to complete therapy. Pt resting comfortably at this time. Will continue to monitor.
[2020-10-27 11:21] LABS: Bedside Glucose 192 mg/dL (70-110)
[2020-10-27] MEDS: Sodium Polystyrene Sulfonate 15 GM/60 ML UDC PO (12:44)
[2020-10-27 15:47] VITALS: BP 109/61; PULSE 112; RESP 20; TEMP 36.7; O2SAT 100
[2020-10-27 16:40] LABS: Bedside Glucose 165 mg/dL (70-110)
[2020-10-27 16:56] VITALS: BP 107/54; PULSE 107
[2020-10-27] MEDS: Menthol/Lanolin/Calamine/Znox 113 GM Tube 1 APPLIC TOPICAL (16:57)
[2020-10-27] MEDS: Atorvastatin Calcium 20 MG Tablet PO (21:22)
[2020-10-27] MEDS: Mirtazapine 15 MG Tablet PO (21:23)
[2020-10-27 21:36] LABS: Bedside Glucose 169 mg/dL (70-110)
[2020-10-28] VITALS (7 sets, daily range): BP systolic 100–111; BP diastolic 58–66; PULSE 63–120; RESP 18–20; TEMP 36.3–36.7; O2SAT 90–100
[2020-10-28] MEDS: Pantoprazole Sodium 40 MG Tablet PO (06:04)
[2020-10-28] MEDS: Ciprofloxacin 250 MG Tablet PO ×2 (06:04→17:23)
[2020-10-28] MEDS: Menthol/Lanolin/Calamine/Znox 113 GM Tube 1 APPLIC TOPICAL ×2 (06:04→17:24)
[2020-10-28] MEDS: Clopidogrel Bisulfate 75 MG Tablet PO (06:04)
[2020-10-28] MEDS: LINAGLIPTIN 5 MG TABLET PO (06:04)
[2020-10-28] MEDS: Furosemide 20 MG Tablet PO (06:04)
--- NOTE | 2020-10-28 06:05 | NURSING ---
Yelling out, assisted to br, large stool, states i was dreaming that a man and i was trying to get ahold of my , i know that im a little confused, i dont feel well this am, i am short of breath, no resp distress noted, allowed to talk and given tlc, feeling better at end of visit, calm
[2020-10-28 06:21] LABS: Bedside Glucose 106 mg/dL (70-110)
[2020-10-28 07:28] LABS: Anion Gap 5 (5-15); BUN 32 mg/dL (7-18); BUN/Creat Ratio 14.5 RATIO (10-20); Calcium,Total 8.7 mg/dL (8.5-10.1); Chloride 112 mmol/L (98-107); Creatinine, Serum 2.21 mg/dL (0.70-1.30); EST Glomerular Filtration Rate 30 mL/min (>60); Est Glom Filt Rate - Afr Amer 37 mL/min (>60); Estimated Creatinine Clearance 24.54 ml/min; Glucose 110 mg/dL (74-106); Potassium 4.9 mmol/L (3.5-5.1); Sodium Level 139 mmol/L (136-145)
[2020-10-28] MEDS: metFORMIN HCl 1,000 MG Tablet 1000 MG PO ×2 (08:31→17:13)
[2020-10-28] MEDS: Metoprolol Tartrate 50 MG Tablet PO ×3 (11:02→20:06)
[2020-10-28 11:26] LABS: Bedside Glucose 91 mg/dL (70-110)
[2020-10-28] MEDS: 0.9% Normal Saline 1,000 ML 50 ML IV (12:18)
[2020-10-28 16:40] LABS: Bedside Glucose 79 mg/dL (70-110)
[2020-10-28 17:20] LABS: Bedside Glucose 98 mg/dL (70-110)
--- NOTE | 2020-10-28 19:20 | NURSING ---
Pt c/o of feet feeling heavy checked bilateral feet +3 pitting edema. BP 106/58 P 120. Pt has intermittent confusion but is able to reorient self. Dr. Toscano was updated D/C IV fluids at this time. Will continue to monitor.
[2020-10-28] MEDS: Atorvastatin Calcium 20 MG Tablet PO (20:06)
--- NOTE | 2020-10-28 20:45 | NURSING ---
Lying in bed with feet elevated, lethargic, able to arouse and answer appropriately, 2 plus pitting edema to mid lower leg, no resp distess, pox 100 on at 2l/m
[2020-10-28 21:25] LABS: Bedside Glucose 139 mg/dL (70-110)
[2020-10-29] VITALS (8 sets, daily range): BP systolic 87–136; BP diastolic 49–78; PULSE 54–107; RESP 16–18; TEMP 36–36.2; O2SAT 89–99
[2020-10-29] MEDS: Menthol/Lanolin/Calamine/Znox 113 GM Tube 1 APPLIC TOPICAL ×2 (05:11→17:48)
[2020-10-29] MEDS: Ciprofloxacin 250 MG Tablet PO ×2 (05:12→17:47)
[2020-10-29] MEDS: Clopidogrel Bisulfate 75 MG Tablet PO (05:12)
[2020-10-29] MEDS: Pantoprazole Sodium 40 MG Tablet PO (05:12)
[2020-10-29] MEDS: Digoxin 125 MCG Tablet 62.5 MCG PO (05:13)
[2020-10-29] MEDS: LINAGLIPTIN 5 MG TABLET PO (05:13)
[2020-10-29 05:57] LABS: Anion Gap 7 (5-15); BUN 36 mg/dL (7-18); BUN/Creat Ratio 15.1 RATIO (10-20); Calcium,Total 8.1 mg/dL (8.5-10.1); Chloride 108 mmol/L (98-107); Creatinine, Serum 2.38 mg/dL (0.70-1.30); EST Glomerular Filtration Rate 28 mL/min (>60); Est Glom Filt Rate - Afr Amer 34 mL/min (>60); Estimated Creatinine Clearance 22.78 ml/min; Glucose 105 mg/dL (74-106); Potassium 3.7 mmol/L (3.5-5.1); Sodium Level 142 mmol/L (136-145)
[2020-10-29 06:35] LABS: Bedside Glucose 107 mg/dL (70-110)
[2020-10-29] MEDS: 0.9% Saline Lock 10 ML Syringe IV (10:54)
[2020-10-29 11:15] LABS: Bedside Glucose 119 mg/dL (70-110)
--- NOTE | 2020-10-29 16:11 | CASEMGMT ---
SW met with patient to complete assessment. Patient was sleeping, but he did awake to SW calling his name. He would periodically open his eyes, but he answered all questions appropriately. He does plan on going home at discharge with his and the help of his son. SW asked patient if he needed assistance with assisted living as this was mentioned he was looking into it. He said to talk with his son about this. He then told SW he can't go on like this. He said he feels terrible. He then wanted to continue to rest. CHARITY has spoken to patient about both Palliative and Hospice. Patient seems to go back and forth on what he wants. His son is a big help to both patient and patient's . CHARITY will pass along to TCU CHARITY patient's feelings of being worn out and not sure he can continue like this. Nichol PURDY MSW
[2020-10-29 16:30] LABS: Bedside Glucose 138 mg/dL (70-110)
--- NOTE | 2020-10-29 17:20 | EKG12_ITS ---
Test Reason : DYSRHYTHMIA Blood Pressure : / mmHG Vent. Rate : 066 BPM Atrial Rate : 081 BPM P-R Int : 000 ms QRS Dur : 160 ms QT Int : 434 ms P-R-T Axes : 000 013 207 degrees QTc Int : 454 ms Ventricular-paced rhythm Abnormal ECG Confirmed by CRYS MONTOYA, MELI ([id number]), deputy editor in chief KONG PAGAN ([id number]) on 11/05/2020 10:57:48 AM Referred By: Vimal Toscano Confirmed By:JUMA SPANGLER MD
[2020-10-29] MEDS: Atorvastatin Calcium 20 MG Tablet PO ×2 (20:00)
[2020-10-29] MEDS: Mirtazapine 15 MG Tablet PO (20:01)
[2020-10-29 21:31] LABS: Bedside Glucose 124 mg/dL (70-110)
[2020-10-30] VITALS (9 sets, daily range): BP systolic 103–121; BP diastolic 58–70; PULSE 59–146; RESP 16–24; TEMP 36.4–37.2; O2SAT 96–100
[2020-10-30] MEDS: Pantoprazole Sodium 40 MG Tablet PO (04:18)
[2020-10-30] MEDS: LINAGLIPTIN 5 MG TABLET PO (04:18)
[2020-10-30] MEDS: Clopidogrel Bisulfate 75 MG Tablet PO (04:18)
[2020-10-30] MEDS: Menthol/Lanolin/Calamine/Znox 113 GM Tube 1 APPLIC TOPICAL ×2 (04:22→19:41)
[2020-10-30 06:05] LABS: Anion Gap 8 (5-15); BUN 34 mg/dL (7-18); BUN/Creat Ratio 15.5 RATIO (10-20); Calcium,Total 8.3 mg/dL (8.5-10.1); Chloride 107 mmol/L (98-107); EST Glomerular Filtration Rate 31 mL/min (>60); Est Glom Filt Rate - Afr Amer 37 mL/min (>60); Estimated Creatinine Clearance 24.65 ml/min; Glucose 104 mg/dL (74-106); Potassium 3.9 mmol/L (3.5-5.1); Sodium Level 140 mmol/L (136-145)
[2020-10-30 06:15] LABS: Bedside Glucose 117 mg/dL (70-110)
--- NOTE | 2020-10-30 08:53 | NURSING ---
this nurse called to pt room. pt feeling short of breath and pt stated he just dont feel good. vitals signs done and rn called to room. rn paged DR. RYAN.
--- NOTE | 2020-10-30 08:58 | PT ---
Pt noted to be more SOB this morning and demonstrating labored breathing. His SPO2 was 100% while on 4L of O2. His HR varied between 126-150. Pt stated he felt SOB and was tired just trying to breathe. Reported to COLLISION CENTER MANAGER. COLLISION CENTER MANAGER entered room and took pt's vitals. Pt was returned to bed with two assist for safety.
[2020-10-30] MEDS: Metoprolol Tartrate 50 MG Tablet PO ×3 (08:59→23:12)
--- NOTE | 2020-10-30 09:00 | NURSING ---
Notified Dr. Toscano of patients elevated HR and c/o SOB. Received order to administer lopressor now and continue to monitor pt.
[2020-10-30 10:46] LABS: Bedside Glucose 122 mg/dL (70-110)
--- NOTE | 2020-10-30 11:23 | CPS ---
patient was on 4L O2 with a stat of 100%, weaned to 2L
--- NOTE | 2020-10-30 15:09 | PCM.PN.RX ---
<Deysi Saha - Last Filed: 10/30/20 15:09> Progress Note - Pharmacy Subjective: TCU Admission Objective: Allergies spironolactone Allergy (Verified 10/14/20 09:58) severe weakness lisinopril Adverse Reaction (Mild, Verified 10/14/20 09:58) Dry cough amiodarone Adverse Reaction (Verified 10/14/20 09:58) toxicity Current Medications Generic Name Dose Route Start Last Admin Trade Name Freq PRN Reason Stop Dose Admin Acetaminophen 1,000 mg 10/26/20 18:50 Acetaminophen 500 Mg Tablet PO Q6H PRN PRN Pain Score 1-10 Atorvastatin Calcium 20 mg 10/26/20 22:00 10/29/20 20:00 Atorvastatin Calcium 20 Mg Tablet PO 20 mg QHS CUAUHTEMOC Administration Bisacodyl 10 mg 10/26/20 21:50 Bisacodyl 10 Mg Suppository RECTAL DAILY PRN Constipation Calamine/Phenol 1 applic 10/27/20 18:00 10/30/20 04:22 Menthol/Lanolin/Calamine/Znox 113 Gm Tube TOPICAL 1 applicatio BID CUAUHTEMOC Administration Protocol Clopidogrel Bisulfate 75 mg 10/27/20 06:00 10/30/20 04:18 Clopidogrel Bisulfate 75 Mg Tablet PO 75 mg DAILY CUAUHTEMOC Administration Digoxin 62.5 mcg 10/29/20 06:00 10/29/20 05:13 Digoxin 125 Mcg Tablet PO 62.5 mcg MoFr@0600 CUAUHTEMOC Administration Sodium Chloride 250 mls @ 15 mls/hr 10/27/20 11:16 IV .[id number] PRN Saline Flush Sodium Chloride 250 mls @ 15 mls/hr 10/27/20 11:16 IV .[id number] PRN Additional IVPB Infusion Linagliptin 5 mg 10/27/20 06:00 10/30/20 04:18 Linagliptin 5 Mg Tablet PO 5 mg DAILY CUAUHTEMOC Administration Magnesium Hydroxide 30 ml 10/26/20 21:49 Magnesium Hydroxide 30 Ml Udc PO DAILY PRN Constipation Metoprolol Tartrate 50 mg 10/26/20 22:00 10/30/20 08:59 Metoprolol Tartrate 50 Mg Tablet PO 50 mg 1000,1600,2200 CUAUHTEMOC Administration Mirtazapine 15 mg 10/26/20 22:00 10/29/20 20:01 Mirtazapine 15 Mg Tablet PO 15 mg QHS CUAUHTEMOC Administration Pantoprazole Sodium 40 mg 10/27/20 06:00 10/30/20 04:18 Pantoprazole Sodium 40 Mg Tablet PO 40 mg DAILY CUAUHTEMOC Administration Polyethylene Glycol 17 gm 10/27/20 06:00 10/30/20 04:22 Polyethylene Glycol 3350 17 Gm Packet PO Not Given DAILY CUAUHTEMOC Senna/Docusate Sodium 1 tablet 10/27/20 06:00 10/30/20 04:18 Senna/Docusate Sodium 1 Tablet PO Not Given BID CUAUHTEMOC Sodium Chloride 10 - 40 ml 10/27/20 11:16 10/29/20 10:54 0.9% Saline Lock 10 Ml Syringe IV 10 ml UD PRN Administration SALINE FLUSH Tuberculin PPD 5 tu 11/03/20 10:00 Tuberculin,Purif.Prot.Deriv. 50 Tu/Ml Vial ID 11/03/20 10:01 X1 ONE Problem List (Last Reviewed 09/26/20 @ 08:00 by Nilsa Cole) Debility (Acute) Urinary tract infection (Acute) Acute respiratory failure (Acute) Atrial fibrillation with rapid ventricular response (Acute) GERD (gastroesophageal reflux disease) (Chronic) Septic shock (Acute) Acute on chronic systolic congestive heart failure (Acute) Hypokalemia (Chronic) Coronary artery disease (Chronic) Chronic kidney disease (Chronic) Hypertension (Chronic) Diabetes mellitus (Chronic) Prostate cancer (Chronic) Hyperlipidemia (Chronic) Vital Signs Temp Pulse Resp BP Pulse Ox 97.5 F L 70 16 109/70 96 10/30/20 13:37 10/30/20 13:37 10/30/20 13:37 10/30/20 13:37 10/30/20 13:37 Oxygen Flow Rate (L/min) 3 Oxygen Delivery Method Nasal Cannula Weight: 67.313 kg Body Mass Index (BMI) 21.9 Sodium 140 mmol/L (136-145) 10/30/20 05:20 Potassium 3.9 mmol/L (3.5-5.1) 10/30/20 05:20 Chloride 107 mmol/L (98-107) 10/30/20 05:20 Carbon Dioxide 25.0 mmol/L (21.0-32.0) 10/30/20 05:20 Anion Gap 8 (5-15) 10/30/20 05:20 BUN 34 mg/dL (7-18) H 10/30/20 05:20 Creatinine 2.20 mg/dL (0.70-1.30) H 10/30/20 05:20 Est GFR (MDRD) Af Amer 37 mL/min (>60) L 10/30/20 05:20 Est GFR (MDRD) Non-Af 31 mL/min (>60) L 10/30/20 05:20 BUN/Creatinine Ratio 15.5 RATIO (10-20) 10/30/20 05:20 Glucose 104 mg/dL (74-106) 10/30/20 05:20 Assessment/Plan: 1. Pain: acetaminophen 1000mg PO Q6H PRN pain (1-10). Please continue to monitor for pain and PRN usage. 2. CAD/CHF: metoprolol tartrate 50mg PO TID, clopidogrel 75mg PO daily, and digoxin 62.5mcg PO twice weekly. Please continue to monitor BP (last 109/70), HR (last 70), platelets (last 223), S/S of bleeding, digoxin levels (last 10/26/20), and renal function. 3. Hyperlipidemia: atorvastatin 20mg PO QHS. Please continue to monitor lipids (last 60LDL, 29HDL on 06/2020), triglycerides (last 115 on 06/2020), and muscle pain. 4. Diabetes Mellitus II: linagliptin 5mg PO daily. Please continue to monitor BG levels (last 122), GI side effects, hemoglobin A1c (last 7.9% 07/2020), and S/S of hypoglycemia. 5. GERD/UGIB: pantoprazole 40mg PO daily. Please continue to monitor for S/S of GERD. Psychotropic Medications: 1. Appetite loss/ depression/ insomnia: mirtazapine 15mg QHS. Please see physician note regarding GDR. Please continue to monitor appetite and insomnia. Unnecessary Medications: None *Bowel Regimen: Miralax 17g PO daily, Senna/docusate 1T PO BID, MOM 30ml PO daily PRN constipation, bisacodyl 10mg AK daily PRN constipation. Patient has refused 4/4 doses of Miralax and 5/7 doses of senna/docusate. Please consider changing from scheduled to PRN. Thanks. Please continue to monitor for constipation. Date of Note:: 10/30/20 - Provider Comments Provider responsibility: Provider responsible to enter orders to implement recommendations <Vimal Toscano Chi - Last Filed: 10/30/20 20:08> Progress Note - Pharmacy Subjective: [] Objective: Allergies spironolactone Allergy (Verified 10/14/20 09:58) severe weakness lisinopril Adverse Reaction (Mild, Verified 10/14/20 09:58) Dry cough amiodarone Adverse Reaction (Verified 10/14/20 09:58) toxicity Current Medications Generic Name Dose Route Start Last Admin Trade Name Freq PRN Reason Stop Dose Admin Acetaminophen 1,000 mg 10/26/20 18:50 Acetaminophen 500 Mg Tablet PO Q6H PRN PRN Pain Score 1-10 Atorvastatin Calcium 20 mg 10/26/20 22:00 10/29/20 20:00 Atorvastatin Calcium 20 Mg Tablet PO 20 mg QHS CUAUHTEMOC Administration Bisacodyl 10 mg 10/26/20 21:50 Bisacodyl 10 Mg Suppository RECTAL DAILY PRN Constipation Calamine/Phenol 1 applic 10/27/20 18:00 10/30/20 19:41 Menthol/Lanolin/Calamine/Znox 113 Gm Tube TOPICAL 1 applicatio BID CUAUHTEMOC Administration Protocol Clopidogrel Bisulfate 75 mg 10/27/20 06:00 10/30/20 04:18 Clopidogrel Bisulfate 75 Mg Tablet PO 75 mg DAILY CUAUHTEMOC Administration Digoxin 62.5 mcg 10/29/20 06:00 10/29/20 05:13 Digoxin 125 Mcg Tablet PO 62.5 mcg MoFr@0600 CUAUHTEMOC Administration Sodium Chloride 250 mls @ 15 mls/hr 10/27/20 11:16 IV .[id number] PRN Saline Flush Sodium Chloride 250 mls @ 15 mls/hr 10/27/20 11:16 IV .[id number] PRN Additional IVPB Infusion Linagliptin 5 mg 10/27/20 06:00 10/30/20 04:18 Linagliptin 5 Mg Tablet PO 5 mg DAILY CUAUHTEMOC Administration Magnesium Hydroxide 30 ml 10/26/20 21:49 Magnesium Hydroxide 30 Ml Udc PO DAILY PRN Constipation Metoprolol Tartrate 50 mg 10/26/20 22:00 10/30/20 19:29 Metoprolol Tartrate 50 Mg Tablet PO Not Given 1000,1600,2200 CUAUHTEMOC Mirtazapine 15 mg 10/26/20 22:00 10/29/20 20:01 Mirtazapine 15 Mg Tablet PO 15 mg QHS CUAUHTEMOC Administration Ondansetron HCl 4 mg 10/30/20 18:36 10/30/20 19:40 Ondansetron Odt 4 Mg Tablet PO 4 mg Q6H PRN PRN Administration NAUSEA/VOMITING Pantoprazole Sodium 40 mg 10/27/20 06:00 10/30/20 04:18 Pantoprazole Sodium 40 Mg Tablet PO 40 mg DAILY CUAUHTEMOC Administration Polyethylene Glycol 17 gm 10/27/20 06:00 10/30/20 04:22 Polyethylene Glycol 3350 17 Gm Packet PO Not Given DAILY CUAUHTEMOC Senna/Docusate Sodium 1 tablet 10/27/20 06:00 10/30/20 18:04 Senna/Docusate Sodium 1 Tablet PO Not Given BID CUAUHTEMOC Sodium Chloride 10 - 40 ml 10/27/20 11:16 10/29/20 10:54 0.9% Saline Lock 10 Ml Syringe IV 10 ml UD PRN Administration SALINE FLUSH Tuberculin PPD 5 tu 11/03/20 10:00 Tuberculin,Purif.Prot.Deriv. 50 Tu/Ml Vial ID 11/03/20 10:01 X1 ONE Problem List (Last Reviewed 09/26/20 @ 08:00 by Nilsa Cole) Debility (Acute) Urinary tract infection (Acute) Acute respiratory failure (Acute) Atrial fibrillation with rapid ventricular response (Acute) GERD (gastroesophageal reflux disease) (Chronic) Septic shock (Acute) Acute on chronic systolic congestive heart failure (Acute) Hypokalemia (Chronic) Coronary artery disease (Chronic) Chronic kidney disease (Chronic) Hypertension (Chronic) Diabetes mellitus (Chronic) Prostate cancer (Chronic) Hyperlipidemia (Chronic) Vital Signs Temp Pulse Resp BP Pulse Ox 97.5 F L 70 16 109/70 96 10/30/20 13:37 10/30/20 13:37 10/30/20 13:37 10/30/20 13:37 10/30/20 13:37 Oxygen Flow Rate (L/min) 3 Oxygen Delivery Method Nasal Cannula Weight: 67.313 kg Body Mass Index (BMI) 21.9 Sodium 140 mmol/L (136-145) 10/30/20 05:20 Potassium 3.9 mmol/L (3.5-5.1) 10/30/20 05:20 Chloride 107 mmol/L (98-107) 10/30/20 05:20 Carbon Dioxide 25.0 mmol/L (21.0-32.0) 10/30/20 05:20 Anion Gap 8 (5-15) 10/30/20 05:20 BUN 34 mg/dL (7-18) H 10/30/20 05:20 Creatinine 2.20 mg/dL (0.70-1.30) H 10/30/20 05:20 Est GFR (MDRD) Af Amer 37 mL/min (>60) L 10/30/20 05:20 Est GFR (MDRD) Non-Af 31 mL/min (>60) L 10/30/20 05:20 BUN/Creatinine Ratio 15.5 RATIO (10-20) 10/30/20 05:20 Glucose 104 mg/dL (74-106) 10/30/20 05:20 Assessment/Plan: Psychotropic Medications: Unnecessary Medications: Bowel Regimen: - Provider Comments Provider responsibility: Provider responsible to enter orders to implement recommendations Provider Comments to Recommendations by Pharmacy: Agree
[2020-10-30 16:20] LABS: Bedside Glucose 153 mg/dL (70-110)
--- NOTE | 2020-10-30 16:51 | CHAPLAIN ---
Type of Pastoral Visit ___ Initial Visit _x__ Follow-up Visit ___ On-call Visit ___ General Patient Visit ___ Spiritual Assessment ___ Family Conference ___ Bereavement ___ Rapid Response ___ Code Blue ___ Other (describe below) Pastoral Care Referral From _x__ Patient ___ Family ___ Nurse ___ Physician ___ Legal Paraprofessional ___ Director Post ___ Other (describe below) Sacrament/Intervention _x__ Active listening ___ Anointing ___ Gnosticist ___ Bereavement ___ Communion _x__ Calista exploration ___ _x__ Life review _x__ Prayer ___ Reconciliation ___ Sacrament of Sick _x__ Supportive presence ___ Wedding ___ Other (describe below) Pastoral Comments patient appears to be napping but awakens to his name; pt states I'm not having a good day; this outreach consultant sits at bedside and allows pt to express his feelings and his situation; pt identifies as a man of long standing calista in God; pt says I'm worn out and I don't know how much longer this can last and when God is ready I am ready; pt asks about assisted living as he admits that going home will be hard for him; pt says that being away from his is especially hard on her; this outreach consultant sees that assisted living has been discussed by patient with SW already; pt states that he really appreciates the visits and prayers
--- NOTE | 2020-10-30 18:11 | NURSING ---
pt had nausea and small amount of emesis this evening.
[2020-10-30] MEDS: Ondansetron ODT 4 MG Tablet PO (19:40)
[2020-10-30 21:26] LABS: Bedside Glucose 124 mg/dL (70-110)
[2020-10-30] MEDS: 0.9% Saline Lock 10 ML Syringe IV (21:32)
--- NOTE | 2020-10-30 22:45 | NURSING ---
this RN notified pt that per DR Toscano if pt wishes, we would take him to ER for further evaluation/medications but if the pt did not wish to do that we would give him additional metoprolol and nausea medicine. discussed with pt that the ER could give more medications that we are not able to give in this unit, and run further tests. the pt tells this rn that he would like to try the medications DR Toscano ordered first and remain in TCU at this time.
[2020-10-30] MEDS: proMETHazine 25 MG/ML Syringe 12.5 MG IV (23:02)
[2020-10-31] VITALS (9 sets, daily range): BP systolic 91–114; BP diastolic 47–68; PULSE 61–117; RESP 18–20; TEMP 36.2–36.9; O2SAT 95–100
[2020-10-31] MEDS: Ondansetron ODT 4 MG Tablet PO ×2 (01:48→12:03)
--- NOTE | 2020-10-31 02:07 | NURSING ---
this RN spoke to Joellen in ER to give report regarding pt's condition and reason for transfer. this RN also notified pt's son, Mason, that pt is being transferred to ER for irregular rhythm with elevated hr and nausea. this RN did ask pt's son if he would like us to notify pt's , Luana of the transfer. Mason states that he will take care of notifying her in the morning.
[2020-10-31 06:00] LABS: Anion Gap 12 (5-15); BUN 39 mg/dL (7-18); BUN/Creat Ratio 15.9 RATIO (10-20); Chloride 106 mmol/L (98-107); Creatinine, Serum 2.46 mg/dL (0.70-1.30); EST Glomerular Filtration Rate 27 mL/min (>60); Est Glom Filt Rate - Afr Amer 33 mL/min (>60); Estimated Creatinine Clearance 22.04 ml/min; Glucose 92 mg/dL (74-106); Potassium 4.8 mmol/L (3.5-5.1); Sodium Level 136 mmol/L (136-145)
[2020-10-31 06:21] LABS: Bedside Glucose 97 mg/dL (70-110)
[2020-10-31] MEDS: Menthol/Lanolin/Calamine/Znox 113 GM Tube 1 APPLIC TOPICAL ×2 (06:27→17:21)
[2020-10-31] MEDS: 0.9% Saline Lock 10 ML Syringe IV ×2 (06:33→07:43)
[2020-10-31] MEDS: proMETHazine 25 MG/ML Syringe 12.5 MG IV (07:43)
[2020-10-31] MEDS: Clopidogrel Bisulfate 75 MG Tablet PO (08:52)
[2020-10-31] MEDS: Pantoprazole Sodium 40 MG Tablet PO (08:52)
[2020-10-31] MEDS: LINAGLIPTIN 5 MG TABLET PO (08:52)
[2020-10-31] MEDS: Metoprolol Tartrate 50 MG Tablet PO ×3 (09:55→20:54)
[2020-10-31 11:00] LABS: Bedside Glucose 125 mg/dL (70-110)
[2020-10-31] MEDS: Glucerna Shake 120 ML LIQUID PO ×2 (11:35→20:52)
--- NOTE | 2020-10-31 12:05 | NURSING ---
PT TRIED EATING LUNCH, SOUP & TURKEY SANDWHICH. VERY FEW BITES NOTED. PT BEGAN DRY HEAVING, PT WITH INCREASED CONFUSION TODAY. ASKING FOR . REORIENTED TO PLACE AND TIME. PT ANSWERS QUESTIONS APPROPRIATE BUT THEN WILL SAY SOMETHING INAPPROPRIATE AT TIMES. ZOFRAN GIVEN. PT RESTING IN BED, CALL LIGHT IN REACH. ALARM IN PLACE.
--- NOTE | 2020-10-31 12:35 | NURSING ---
R' CONFUSED, HAS STRONG URINE ODOR. DR. RYAN NOTIFIED. N.O. UA C+S.
--- NOTE | 2020-10-31 13:48 | CPS ---
patient was on 2L and weaned to room air
--- NOTE | 2020-10-31 14:18 | CASEMGMT ---
Addendum entered by Khloe Fernandez 10/31/20 15:16: Error: DC Thursday 11/02. Addendum entered by Khloe Fernandez 10/31/20 15:14: [facility] has spoken with pt and family and can admit 11/02. Followed up with son to confirm DC plans. Son to transport pt home 11/03. IDT aware. Plan: DC home 11/03 with [facility] Original Note: Social Work IDT met with patient and son via conference call for care plan meeting. Discussed patient's progress in therapy. Pt is SBA for bed mobility, CGA for tx and ambulating 20-40ft wit hFWW. Pt fatigues very quickly, easily SOB and having varied increased HR with activity. Pt is using 2# wts for LE exercises. Therapy was on hold for 10/30 and was admitted to ED - returned 10/31. Pt is CGA for toilet tx, min for UE dressing, mod for LE dressing. Pt is on a regular, NINA diet, receiving ensure, magic cup, Glucerna. Pt is out of isolation 11/11, receiving IV fluids, new O2, having intermittent confusion. Explained [facility] insurance with NRD 11/06 and EDC 11/09. Explained and provided insurance care plan. SW spoke with and son about pt's wishes and hospice services. Pt did not waiver with wishes and is ready to be comfortable and accept hospice services. Son agrees and has talked with him about that prior to TCU admission. Both agreed to referral and possible DC home with 11/02. Referral made to [facility]. IDT aware. Will continue to follow. VIOLETA ChanW
[2020-10-31] MEDS: Magnesium Hydroxide 30 ML UDC PO (15:17)
[2020-10-31 16:39] LABS: Bacteria 0 SEEN /hpf (None Seen); Mucous, Urine 0 SEEN /hpf (<or=2+); Red Blood Cells-Urine 0 SEEN /hpf (0-5); White Blood Cells 0 SEEN /hpf (0-5)
[2020-10-31 16:41] LABS: Color, Urine Yellow (Yellow); Glucose, Dipstick Normal (Normal); Ketone-Dipstick Negative (Negative); Leukocyte Esterase-Dipstick Negative /ul (Negative); Nitrite-Dipstick Negative (Negative); Occult Blood-Urine 10 /ul (Negative); Protein-Dipstick Negative (Negative); Urine Bilirubin Dipstick Negative (Negative); Urine Clarity Clear (Clear); Urine Urobilinogen Normal (Normal)
[2020-10-31 16:50] LABS: Bedside Glucose 142 mg/dL (70-110)
[2020-10-31 17:06] LABS: Hyaline Cast 10-25 SEEN /lpf (0-5)
[2020-10-31 17:07] LABS: Squamous Epithelial Cells - UA 5-10 SEEN /hpf (0-5)
[2020-10-31] MEDS: Senna/Docusate Sodium 1 Tablet PO (17:20)
--- NOTE | 2020-10-31 18:01 | CASEMGMT ---
Social Work Completed HCPOA and LW paperwork with pt. Pt named, son, Mason Luz, as POA. Copies placed in chart. Khloe Fernandez, SALES PLANNING COORDINATOR MOSAIC WORKER
[2020-10-31] MEDS: Atorvastatin Calcium 20 MG Tablet PO (20:54)
[2020-10-31] MEDS: Mirtazapine 15 MG Tablet PO (20:54)
--- NOTE | 2020-10-31 21:03 | NURSING ---
22G IV removed from patients right AC per patient request. Post site intact and patient tolerated well.
[2020-11-01 06:07] LABS: Anion Gap 8 (5-15); BUN 48 mg/dL (7-18); BUN/Creat Ratio 18.1 RATIO (10-20); Calcium,Total 8.5 mg/dL (8.5-10.1); Chloride 105 mmol/L (98-107); Creatinine, Serum 2.65 mg/dL (0.70-1.30); EST Glomerular Filtration Rate 25 mL/min (>60); Est Glom Filt Rate - Afr Amer 30 mL/min (>60); Estimated Creatinine Clearance 20.46 ml/min; Glucose 103 mg/dL (74-106); Potassium 3.7 mmol/L (3.5-5.1); Sodium Level 138 mmol/L (136-145)
[2020-11-01 06:25] LABS: Bedside Glucose 109 mg/dL (70-110)
[2020-11-01] MEDS: Glucerna Shake 120 ML LIQUID PO ×3 (06:40→20:03)
[2020-11-01] MEDS: Menthol/Lanolin/Calamine/Znox 113 GM Tube 1 APPLIC TOPICAL ×2 (06:40→18:05)
[2020-11-01] MEDS: Pantoprazole Sodium 40 MG Tablet PO (06:41)
[2020-11-01] MEDS: Senna/Docusate Sodium 1 Tablet PO ×2 (06:41→18:06)
[2020-11-01] MEDS: Polyethylene Glycol 3350 17 GM PACKET PO (06:41)
[2020-11-01] MEDS: LINAGLIPTIN 5 MG TABLET PO (06:41)
[2020-11-01] MEDS: Clopidogrel Bisulfate 75 MG Tablet PO (06:41)
[2020-11-01] MEDS: Acetaminophen 500 MG Tablet 1000 MG PO (06:55)
--- NOTE | 2020-11-01 08:29 | DCINST_ITS ---
- Discharge Diagnoses Current Active Problems: Current Active and Chronic Problems (Last Reviewed 09/26/20 @ 08:00 by Nilsa Cole) Debility (Acute) Urinary tract infection (Acute) Acute respiratory failure (Acute) Atrial fibrillation with rapid ventricular response (Acute) GERD (gastroesophageal reflux disease) (Chronic) Septic shock (Acute) Acute on chronic systolic congestive heart failure (Acute) Hypokalemia (Chronic) Coronary artery disease (Chronic) Chronic kidney disease (Chronic) Hypertension (Chronic) Diabetes mellitus (Chronic) Prostate cancer (Chronic) Hyperlipidemia (Chronic) You will use the following diet at home:: No restrictions, Regular Your food should be the consistency of: Regular Your liquids should be the consistency of: Regular/Thin Discharge Activity: Return to Normal Activity, May Shower, Use Walker Weight Bearing Status: Weight bearing as tolerated Call your doctor if you observe: Fever of 101 or Higher, Inability to urinate, Inability to have a bowel movement, Shortness of breath, Chest pain, Uncontrolled pain Allergies/Adverse Reactions: Allergies spironolactone Allergy (Verified 10/14/20 09:58) severe weakness lisinopril Adverse Reaction (Mild, Verified 10/14/20 09:58) Dry cough amiodarone Adverse Reaction (Verified 10/14/20 09:58) toxicity Medications to take at Discharge Acetaminophen [Tylenol] 1,000 mg PO Q6H PRN PRN tab 09/19/20 Digoxin [Lanoxin] 1.25 mcg PO .twice a week 10/19/20 Clopidogrel Bisulfate [Clopidogrel] 75 mg PO QDAY 10/26/20 Mirtazapine [Remeron] 15 mg PO QHS 10/26/20 Pantoprazole Sodium 40 mg PO DAILY 10/26/20 Rosuvastatin Calcium 10 mg PO DAILY 10/26/20 Sitagliptin Phos/Metformin HCl [Janumet 50-1,000 mg Tablet] 1 tab PO BID 10/26/20 Menthol/Lanolin/Calamine/Znox [Calmoseptine Ointment] 1 applic TOPICAL BID tube 11/01/20 Metoprolol Tartrate [Lopressor (beta kelsey)] 50 mg PO 1000,1600,2200 #90 tab 11/01/20 Ondansetron [Zofran Odt] 4 mg PO Q6H PRN PRN #120 tab 11/01/20 The following prescriptions were given: Metoprolol Tartrate [Lopressor (beta kelsey)] 50 mg PO 1000,1600,2200 #90 tab Transmission Status: Pending to [id number] Ondansetron [Zofran Odt] 4 mg PO Q6H PRN PRN #120 tab PRN Reason: NAUSEA/VOMITING Transmission Status: Pending to [facility] Primary Care Physician: Abdoulaye Brock MD [Primary Care Provider] - Please follow up with your Primary Care Physician in: As needed. Test Results: Test results from this visit will be discussed in further detail at your follow- up appointment, if applicable. Please Follow Up With: Abdoulaye Brock MD When: As needed. Please Follow Up With: Jason Lemus MD When: N/A. Proposed Discharge Date: 11/03/20
--- NOTE | 2020-11-01 08:30 | DS.PCM_ITS ---
Discharge Date and Diagnosis - Problem List Patient Problems: Active and Suspected Problems (Last Reviewed 09/26/20 @ 08:00 by Nilsa Cole) Debility (Acute) Urinary tract infection (Acute) Acute respiratory failure (Acute) Atrial fibrillation with rapid ventricular response (Acute) Septic shock (Acute) Acute on chronic systolic congestive heart failure (Acute) Date of Admission: 10/26/20 Date of Discharge: 11/03/20 - Primary Discharge Diagnosis Acute Problems: Active Problems (Last Reviewed 09/26/20 @ 08:00 by Nilsa Cole) Debility (Acute) Urinary tract infection (Acute) Acute respiratory failure (Acute) Atrial fibrillation with rapid ventricular response (Acute) Septic shock (Acute) Acute on chronic systolic congestive heart failure (Acute) - Secondary Discharge Diagnosis Chronic Problems: Chronic Problems (Last Reviewed 09/26/20 @ 08:00 by Nilsa Cole) GERD (gastroesophageal reflux disease) (Chronic) Hypokalemia (Chronic) Coronary artery disease (Chronic) Chronic kidney disease (Chronic) Hypertension (Chronic) Diabetes mellitus (Chronic) Prostate cancer (Chronic) Depression (Chronic) Chronic systolic congestive heart failure (Chronic) Diabetes mellitus type 2 in nonobese (Chronic) Anxiety (Chronic) Persistent atrial fibrillation (Chronic) History of permanent cardiac pacemaker placement (Chronic 08/16/20) VVI 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 Bradycardia (Chronic) Atherosclerosis of coronary artery of [place] heart with angina pectoris (Chronic) History of non-ST elevation myocardial infarction (NSTEMI) (Chronic 05/2017) 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) CABG x 4: COLES-LAD, SVG-D1, SVG to proximal end of SVG to diagonal going to OM 2, and SVG-RPDA 10/30/16 Ischemic cardiomyopathy (Chronic) Secondary pulmonary arterial hypertension (Chronic) Left bundle branch block (LBBB) (Chronic) Essential (primary) hypertension (Chronic) Hyperlipidemia (Chronic) Hospital Course and Treatment Imaging Results: 10/29/20 14:35 Diet: Regular - No Added Salt Food consistency:: Regular Liquid Consistency:: Regular/Thin Is pt able to select menu?: Yes Diet Comments: ensure pudding w/ L , magic cup w/ D Labs (Last 48 Hours) 10/30/20 10/30/20 10/30/20 10:25 16:12 21:22 Sodium Potassium Chloride Carbon Dioxide Anion Gap BUN Creatinine Estim Creat Clear Calc Est GFR (MDRD) Af Amer Est GFR (MDRD) Non-Af BUN/Creatinine Ratio Glucose Calcium Urine Color Urine Clarity Urine pH Ur Specific [place] Urine Protein Urine Glucose (UA) Urine Ketones Urine Occult Blood Urine Nitrite Urine Bilirubin Urine Urobilinogen Ur Leukocyte Esterase Urine RBC Urine WBC Ur Squamous Epith Cells Urine Bacteria Hyaline Casts Urine Mucus POC Glucose 122 H 153 H 124 H 10/31/20 10/31/20 10/31/20 05:15 06:18 10:47 Sodium 136 Potassium 4.8 Chloride 106 Carbon Dioxide 18.0 L Anion Gap 12 BUN 39 H Creatinine 2.46 H Estim Creat Clear Calc 22.04 Est GFR (MDRD) Af Amer 33 L Est GFR (MDRD) Non-Af 27 L BUN/Creatinine Ratio 15.9 Glucose 92 Calcium 9.0 Urine Color Urine Clarity Urine pH Ur Specific [place] Urine Protein Urine Glucose (UA) Urine Ketones Urine Occult Blood Urine Nitrite Urine Bilirubin Urine Urobilinogen Ur Leukocyte Esterase Urine RBC Urine WBC Ur Squamous Epith Cells Urine Bacteria Hyaline Casts Urine Mucus POC Glucose 97 125 H 10/31/20 10/31/20 11/01/20 14:00 16:42 05:15 Sodium 138 Potassium 3.7 Chloride 105 Carbon Dioxide 25.0 Anion Gap 8 BUN 48 H Creatinine 2.65 H Estim Creat Clear Calc 20.46 Est GFR (MDRD) Af Amer 30 L Est GFR (MDRD) Non-Af 25 L BUN/Creatinine Ratio 18.1 Glucose 103 Calcium 8.5 Urine Color Yellow Urine Clarity Clear Urine pH 5.0 Ur Specific [place] 1.020 Urine Protein Negative Urine Glucose (UA) Normal Urine Ketones Negative Urine Occult Blood 10 H Urine Nitrite Negative Urine Bilirubin Negative Urine Urobilinogen Normal Ur Leukocyte Esterase Negative Urine RBC 0 SEEN Urine WBC 0 SEEN Ur Squamous Epith Cells 5-10 SEEN Urine Bacteria 0 SEEN Hyaline Casts 10-25 SEEN Urine Mucus 0 SEEN POC Glucose 142 H 11/01/20 06:18 Sodium Potassium Chloride Carbon Dioxide Anion Gap BUN Creatinine Estim Creat Clear Calc Est GFR (MDRD) Af Amer Est GFR (MDRD) Non-Af BUN/Creatinine Ratio Glucose Calcium Urine Color Urine Clarity Urine pH Ur Specific [place] Urine Protein Urine Glucose (UA) Urine Ketones Urine Occult Blood Urine Nitrite Urine Bilirubin Urine Urobilinogen Ur Leukocyte Esterase Urine RBC Urine WBC Ur Squamous Epith Cells Urine Bacteria Hyaline Casts Urine Mucus POC Glucose 109 Operations: None Procedures: None Summary of Care Provided: The patient is a 80 year old Male with below past medical history hospitalized for septic shock secondary to urinary tract infection, complicated by acute on chronic systolic congestive heart failure, atrial fibrillation with rapid ventricular rate, acute respiratory failure, admitted to TCU with debility, here for rehabilitation, strengthening, prior to discharge home with . Resident dying, failing heart, failing kidneys, Hu needed time to realize this. Discharge home with [facility]. Patient Problems: Active and Suspected Problems (Last Reviewed 09/26/20 @ 08:00 by Nilsa Cole) Debility (Acute) Urinary tract infection (Acute) Acute respiratory failure (Acute) Atrial fibrillation with rapid ventricular response (Acute) Septic shock (Acute) Acute on chronic systolic congestive heart failure (Acute) - Physical Exam Vitals/I&O's: Vital Signs Temp Pulse Resp BP Pulse Ox 97.1 F L 100 18 94/55 L 99 10/31/20 13:37 10/31/20 20:54 10/31/20 14:57 10/31/20 17:20 10/31/20 13:37 Oxygen Flow Rate (L/min) 2 Oxygen Delivery Method Nasal Cannula Weight: 67.313 kg Body Mass Index (BMI) 21.9 Intake and Output for Last 24 Hours 10/30/20 10/31/20 11/01/20 23:59 23:59 23:59 Intake Total 360 / 360 120 / 120 Output Total 350 / 350 Balance 360 / 360 -230 / -230 Microbiology Past 72 Hours 10/29/20 11:35 Nasal Secretion SARS-CoV-2 Antigen (Rapid) - Final Laboratory Results 10/31/20 10:47: POC Glucose 125 H 10/31/20 14:00: Urine Color Yellow, Urine Clarity Clear, Urine pH 5.0, Ur Specific [place] 1.020, Urine Protein Negative, Urine Glucose (UA) Normal, Urine Ketones Negative, Urine Occult Blood 10 H, Urine Nitrite Negative, Urine Bilirubin Negative, Urine Urobilinogen Normal, Ur Leukocyte Esterase Negative, Urine RBC 0 SEEN, Urine WBC 0 SEEN, Ur Squamous Epith Cells 5-10 SEEN, Urine Bacteria 0 SEEN, Hyaline Casts 10-25 SEEN, Urine Mucus 0 SEEN 10/31/20 16:42: POC Glucose 142 H 11/01/20 05:15: Sodium 138, Potassium 3.7, Chloride 105, Carbon Dioxide 25.0, Anion Gap 8, BUN 48 H, Creatinine 2.65 H, Estim Creat Clear Calc 20.46, Est GFR (MDRD) Af Amer 30 L, Est GFR (MDRD) Non-Af 25 L, BUN/Creatinine Ratio 18.1, Glucose 103, Calcium 8.5 11/01/20 06:18: POC Glucose 109 Current Medications Acetaminophen (Acetaminophen 500 Mg Tablet) 1,000 mg PO Q6H PRN PRN PRN Reason: Pain Score 1-10 Last Admin: 11/01/20 06:55 Dose: 1,000 mg Documented by: Atorvastatin Calcium (Atorvastatin Calcium 20 Mg Tablet) 20 mg PO QHS [facility] Last Admin: 10/31/20 20:54 Dose: 20 mg Documented by: Bisacodyl (Bisacodyl 10 Mg Suppository) 10 mg RECTAL DAILY PRN PRN Reason: Constipation Calamine/Phenol (Menthol/Lanolin/Calamine/Znox 113 Gm Tube) 1 applic TOPICAL BID [facility]; Protocol Last Admin: 11/01/20 06:40 Dose: 1 applicatio Documented by: Clopidogrel Bisulfate (Clopidogrel Bisulfate 75 Mg Tablet) 75 mg PO DAILY [facility] Last Admin: 11/01/20 06:41 Dose: 75 mg Documented by: Digoxin (Digoxin 125 Mcg Tablet) 62.5 mcg PO MoFr@0600 [facility] Last Admin: 10/29/20 05:13 Dose: 62.5 mcg Documented by: Sodium Chloride () 250 mls @ 15 mls/hr IV .[id number] PRN PRN Reason: Saline Flush Sodium Chloride () 250 mls @ 15 mls/hr IV .[id number] PRN PRN Reason: Additional IVPB Infusion Linagliptin (Linagliptin 5 Mg Tablet) 5 mg PO DAILY [facility] Last Admin: 11/01/20 06:41 Dose: 5 mg Documented by: Magnesium Hydroxide (Magnesium Hydroxide 30 Ml Udc) 30 ml PO DAILY PRN PRN Reason: Constipation Last Admin: 10/31/20 15:17 Dose: 30 ml Documented by: Metoprolol Tartrate (Metoprolol Tartrate 50 Mg Tablet) 50 mg PO 1000,1600,2200 [facility] Last Admin: 10/31/20 20:54 Dose: 50 mg Documented by: Mirtazapine (Mirtazapine 15 Mg Tablet) 15 mg PO QHS [facility] Last Admin: 10/31/20 20:54 Dose: 15 mg Documented by: Nutritional Formula (Lactose Free) (Glucerna Shake 120 Ml Liquid) 120 ml PO 4X/DAY [facility] Last Admin: 11/01/20 06:40 Dose: 120 ml Documented by: Ondansetron HCl (Ondansetron Odt 4 Mg Tablet) 4 mg PO Q6H PRN PRN PRN Reason: NAUSEA/VOMITING Last Admin: 10/31/20 12:03 Dose: 4 mg Documented by: Pantoprazole Sodium (Pantoprazole Sodium 40 Mg Tablet) 40 mg PO DAILY [facility] Last Admin: 11/01/20 06:41 Dose: 40 mg Documented by: Polyethylene Glycol (Polyethylene Glycol 3350 17 Gm Packet) 17 gm PO DAILY [facility] Last Admin: 11/01/20 06:41 Dose: 17 gm Documented by: Promethazine HCl (Promethazine 25 Mg/Ml Syringe) 12.5 mg IV Q6H PRN PRN PRN Reason: NAUSEA/VOMITING Last Admin: 10/31/20 07:43 Dose: 12.5 mg Documented by: Senna/Docusate Sodium (Senna/Docusate Sodium 1 Tablet) 1 tablet PO BID [facility] Last Admin: 11/01/20 06:41 Dose: 1 tablet Documented by: Sodium Chloride (0.9% Saline Lock 10 Ml Syringe) 10 - 40 ml IV UD PRN PRN Reason: SALINE FLUSH Last Admin: 10/31/20 07:43 Dose: 30 ml Documented by: Tuberculin PPD (Tuberculin,Purif.Prot.Deriv. 50 Tu/Ml Vial) 5 tu ID [id number] Stop: 11/03/20 10:01 Discharge Diet: No Restrictions Discharge Activity: Return to Normal Activity, May Shower, Use Walker Weight Bearing Status: Weight bearing as tolerated Call your doctor if you observe: Fever of 101 or Higher, Inability to urinate, Inability to have a bowel movement, Shortness of breath, Chest pain, Uncontrolled pain Home Medications: Medications to take at Discharge Acetaminophen [Tylenol] 1,000 mg PO Q6H PRN PRN tab 09/19/20 Digoxin [Lanoxin] 1.25 mcg PO .twice a week 10/19/20 Clopidogrel Bisulfate [Clopidogrel] 75 mg PO QDAY 10/26/20 Mirtazapine [Remeron] 15 mg PO QHS 10/26/20 Pantoprazole Sodium 40 mg PO DAILY 10/26/20 Rosuvastatin Calcium 10 mg PO DAILY 10/26/20 Sitagliptin Phos/Metformin HCl [Janumet 50-1,000 mg Tablet] 1 tab PO BID 10/26/20 Menthol/Lanolin/Calamine/Znox [Calmoseptine Ointment] 1 applic TOPICAL BID tube 11/01/20 Metoprolol Tartrate [Lopressor (beta kelsey)] 50 mg PO 1000,1600,2200 #90 tab 11/01/20 Ondansetron [Zofran Odt] 4 mg PO Q6H PRN PRN #120 tab 11/01/20 Following Prescriptions Were Given to Patient: Metoprolol Tartrate [Lopressor (beta kelsey)] 50 mg PO 1000,1600,2200 #90 tab Transmission Status: Pending to [id number] Ondansetron [Zofran Odt] 4 mg PO Q6H PRN PRN #120 tab PRN Reason: NAUSEA/VOMITING Transmission Status: Pending to [id number] Primary Care Physician: Abdoulaye Brock MD [Primary Care Provider] - Please follow up with your Primary Care Physician in: As needed. Please Follow Up With: Abdoulaye Brock MD When: As needed. Please Follow Up With: Jason Lemus MD When: N/A. Disposition: Home with Hospice Minutes spent on discharge:: 30 Patient Condition:: Poor Medical Necessity - Tobacco Use Smoking Status: Never smoker Tobacco Use: Non-smoker Meaningful Use Info Meaningful Use Diagnoses (Choose all that apply): None applicable
[2020-11-01 10:47] VITALS: BP 93/50; PULSE 86
[2020-11-01 10:55] VITALS: PULSE 86; RESP 16; O2SAT 98
[2020-11-01 13:47] VITALS: BP 97/54; PULSE 94; RESP 14; TEMP 36.8; O2SAT 94
[2020-11-01 16:37] VITALS: BP 100/59; PULSE 97
[2020-11-01] MEDS: Metoprolol Tartrate 50 MG Tablet PO (16:37)
[2020-11-01] MEDS: Atorvastatin Calcium 20 MG Tablet PO (20:04)
[2020-11-01] MEDS: Mirtazapine 15 MG Tablet PO (20:05)
--- NOTE | 2020-11-01 22:26 | NURSING ---
Patient refused Lopressor this evening stating he just wants to rest.
[2020-11-02] MEDS: Acetaminophen 500 MG Tablet 1000 MG PO (01:33)
[2020-11-02 06:26] LABS: Bedside Glucose 111 mg/dL (70-110)
[2020-11-02 06:45] VITALS: BP 98/58; PULSE 97; RESP 18; TEMP 36.8; O2SAT 97
[2020-11-02 08:13] VITALS: O2SAT 95
[2020-11-02 08:39] VITALS: PULSE 111
[2020-11-02] MEDS: Pantoprazole Sodium 40 MG Tablet PO (08:39)
[2020-11-02] MEDS: Digoxin 125 MCG Tablet 62.5 MCG PO (08:39)
[2020-11-02] MEDS: Clopidogrel Bisulfate 75 MG Tablet PO (08:41)
[2020-11-02] MEDS: LINAGLIPTIN 5 MG TABLET PO (08:41)
[2020-11-02] MEDS: Senna/Docusate Sodium 1 Tablet PO (08:41)
[2020-11-02] MEDS: Menthol/Lanolin/Calamine/Znox 113 GM Tube 1 APPLIC TOPICAL (08:44)
[2020-11-02] MEDS: Glucerna Shake 120 ML LIQUID PO (08:46)
[2020-11-02 10:00] VITALS: PULSE 110; RESP 18; O2SAT 96
[2020-11-02 10:17] VITALS: BP 105/60; PULSE 110
[2020-11-02] MEDS: Metoprolol Tartrate 50 MG Tablet PO (10:17)
[2020-11-02 11:24] VITALS: BP 105/60; PULSE 110; RESP 18; TEMP 36.2; O2SAT 96
--- NOTE | 2020-11-06 08:40 | MDS.RN ---
Information for the mds was obtained from review of the clinical record, interview of resident, staff, and direct observation of resident's care.
== END 2020-11-02 10:45 | disposition hospice, home (50) | DRG 690 ==
LOC: TCU 18:43
PROVIDERS: Admitting Provider Family Medicine Geriatric Medicine; PCP Family Medicine; Referring Provider Family Medicine Geriatric Medicine; Visit Provider Family Medicine Geriatric Medicine
DX: N39.0 Urinary tract infection, site not specified (principal); I13.0 Hypertensive heart and chronic kidney disease with heart failure and stage 1 through stage 4 chronic kidney disease, or unspecified chronic kidney disease; I50.22 Chronic systolic (congestive) heart failure; I48.19 Other persistent atrial fibrillation; I25.10 Atherosclerotic heart disease of native coronary artery without angina pectoris; K21.9 Gastro-esophageal reflux disease without esophagitis; E78.5 Hyperlipidemia, unspecified; E11.22 Type 2 diabetes mellitus with diabetic chronic kidney disease; N18.9 Chronic kidney disease, unspecified; Z85.46 Personal history of malignant neoplasm of prostate; I25.5 Ischemic cardiomyopathy; I27.21 Secondary pulmonary arterial hypertension; I25.2 Old myocardial infarction; Z95.0 Presence of cardiac pacemaker; F32.9 Major depressive disorder, single episode, unspecified; F41.9 Anxiety disorder, unspecified
CPT/HCPCS: 36415; 80048; 80162; 81001; 82962; 85025; 87086; 87426; 87635; 93005; 97110; 97116; 97162; 97166; 97530; 97802; J7030; U0005; A4216; U0003

== ENCOUNTER 2020-10-31 02:16 | Emergency (ER) | payer MEDICARE, SELFPAY ==
[2020-10-26 18:45] VITALS: BMI 21.9
[2020-10-31 02:19] VITALS: BP 126/79; PULSE 118; RESP 20; TEMP 37; BMI 23.6
[2020-10-31 02:21] VITALS: O2SAT 100
--- NOTE | 2020-10-31 02:24 | RAD_ITS ---
STUDY: X-RAY CHEST REASON FOR EXAM: Male, 80 years old. increased heart rate TECHNIQUE: Single AP portable view of the chest. COMPARISON: 10/20/2020. FINDINGS: The lungs are normally distended with fullness of the central markings and subtle interstitial prominence in the periphery concerning for early congestive heart failure. There is mild left-sided pleural effusion. There is cardiomegaly with midline sternotomy wires. Normal mediastinum and heaven. There is atherosclerotic calcification of the aortic arch with tortuosity. There is demineralization of the osseous structures. There is degenerative osteoarthritis of the bilateral shoulders. There is no demonstrated abnormality of the visualized soft tissue structures of the upper abdomen. RAD/Chest 1 View (Portable) IMPRESSION: Early congestive heart failure with mild left effusion. Electronically Signed: Anabela Skinner MD at 2:59 EST , Service support ,
--- NOTE | 2020-10-31 02:24 | EKG12_ITS ---
Test Reason : Blood Pressure : / mmHG Vent. Rate : 091 BPM Atrial Rate : 084 BPM P-R Int : 000 ms QRS Dur : 136 ms QT Int : 388 ms P-R-T Axes : 000 013 189 degrees QTc Int : 477 ms Atrial fibrillation Left bundle branch block Abnormal ECG Confirmed by ISACC MONTOYA, CLAUDIO ([id number]), graphics editor KONG PAGAN ([id number]) on 11/09/2020 9:47:14 AM Referred By: SHELBY Confirmed By:CLAUDIO DEXTER MD
--- NOTE | 2020-10-31 02:26 | ED.DCSUM_ITS ---
- ER Visit Summary Date of Service: 10/31/20 Chief Complaint: Shortness of breath, palpitations History of Present Illness: The patient is a 80 M who presents with shortness of breath and palpitations. The patient is a resident on the transitional care unit. He was admitted there from the hospital due to septic shock and urinary tract infection. Tonight he started having some shortness of breath with palpitations. He was found to be in atrial fibrillation with RVR. He does have a history of atrial fibrillation which is permanent. He does have a pacemaker in place. He was given 2 doses of 50 mg of oral metoprolol tonight with no change in his rate or symptoms. He is on metoprolol 3 times a day along with digoxin twice weekly. He does feel mildly short of breath with a cough. He denies any fevers. No significant chest pain at this time. He is a DNR CCA. Physical Examination: Vital signs reviewed. HEENT exam unremarkable. Heart is irregularly irregular and tachycardic without murmurs. Lungs have diminished sounds in the bases bilaterally. Abdomen is soft and nontender. Extremities reveal no edema. Skin exam normal. Neurologic exam normal. Test Results: EKG is paced with a rate of 62. There are nonspecific ST and T wave changes noted. Chest x-ray shows early CHF with a left pleural effusion. Hemoglobin is 9.3 which is baseline. Creatinine 2.39. Troponin 0 0.197 and his BNP is 3966. Emergency Department Course and Treatment: The patient's BNP is slightly elevated from his admission on October 19 but his troponin is chronically elevated. Creatinine is also at baseline. The patient's rate decreased with 1 dose of IV Cardizem. He was also given Zofran for nausea. When I reevaluated this patient his pulse ox was 97% on room air. His nasal cannula was not in his nose. His respiratory rate was 22. I discussed with the physician taking care of him on TCU, Dr. Toscano. He would like the patient to have 1 dose of IV Lasix and transferred back up to the TCU. The patient has not hypoxic and I feel that this is appropriate. Treatment Plan: [] Disposition: Discharge to TCU Impression: Atrial fibrillation with RVR, CHF This note was generated with Mobile [employer] dictation software. It may contain incorrect words, spelling, and punctuation that were not noted in review of the chart prior to signing ED Disposition - Plan for ED Patient: Disposition: Assisted Facility Instructions: ED AFIB Referrals: Abdoulaye Brock MD [Primary Care Provider] -
[2020-10-31] MEDS: dilTIAZem 25 MG/5 ML Vial 20 MG IV BOLUS (02:33)
[2020-10-31] MEDS: Ondansetron 4 MG/2 ML Vial IV (02:33)
[2020-10-31 02:35] LABS: Absolute Lymphocyte Count 1.44 X10^3/uL (0.83-4.51); Absolute Neutrophil Count 6.8 X10^3/uL (2.0-7.7); Basophil# 0.03 X10^3/uL; Basophil% 0.3 % (0-1); Hematocrit 31.4 % (40-54); Hemoglobin 9.3 g/dL (13.0-16.5); Lymphocyte # 1.44 X10^3/ul (4.0); Lymphocyte % 16.3 % (19-41); Mean Corp Hgb Conc 29.6 g/dL (32-36); Mean Corpuscular Hgb 27.3 pg (27.0-32.0); Mean Corpuscular Volume 92.1 fL (80-94); Mean Platelet Vol. 11.1 fl (6.2-12.0); Monocyte% 5.7 % (0-10); NRBC Flagged by Analyzer 0 % (0-5); Neutrophil # 6.81 X10^3/uL (2.7-7.7); Neutrophil % 77.4 % (47-70); Platelet Count 258 K/mm3 (150-450); RBC Distribution Width CV 15.8 % (11.6-14.6); RBC Distribution Width SD 52.9 fl (35.1-43.9); Red Blood Count 3.41 M/mm3 (4.6-6.2); White Blood Count 8.8 K/mm3 (4.4-11.0)
[2020-10-31 02:44] VITALS: BP 107/65; PULSE 65; RESP 23; O2SAT 97
[2020-10-31 02:53] LABS: Anion Gap 7 (5-15); BUN 36 mg/dL (7-18); BUN/Creat Ratio 15.1 RATIO (10-20); Calcium,Total 8.9 mg/dL (8.5-10.1); Chloride 107 mmol/L (98-107); Creatinine, Serum 2.39 mg/dL (0.70-1.30); EST Glomerular Filtration Rate 28 mL/min (>60); Est Glom Filt Rate - Afr Amer 34 mL/min (>60); Estimated Creatinine Clearance 23.83 ml/min; Glucose 127 mg/dL (74-106); Potassium 4.7 mmol/L (3.5-5.1); Sodium Level 140 mmol/L (136-145)
[2020-10-31 02:56] LABS: BNP,B-Type NATRIURETIC PEPTIDE 3966.7 pg/mL (0-100)
[2020-10-31 03:25] VITALS: BP 86/73; PULSE 71; RESP 18; O2SAT 99
[2020-10-31] MEDS: Furosemide 40 MG/4 ML Vial IV (03:25)
--- NOTE | 2020-10-31 03:34 | ED.RN ---
THIS RN CALLED REPORT TO TCU AND SPOKE WITH HIS NURSE. PT CAME DOWN WITH IV IN ARM SO IT WAS NOT REMOVED ON DISCHARGE. DR. BOYLE SPOKE WITH DR. RYAN WHO WILL MANAGE PT ON TCU. ALL QUESTIONS ANSWERED, NO FURTHER CONCERNS. PT TAKEN TO TCU VIA ED CART WITH RN AND FIXTURE REPAIRER FABRICATOR.
== END 2020-10-31 03:35 | disposition skilled nursing facility (03) ==
PROVIDERS: Emergency Provider Emergency Medicine; PCP Family Medicine
DX: I48.20 Chronic atrial fibrillation, unspecified (principal); I50.9 Heart failure, unspecified; I25.10 Atherosclerotic heart disease of native coronary artery without angina pectoris; Z95.0 Presence of cardiac pacemaker; Z66 Do not resuscitate
CPT/HCPCS: 71045; 80048; 83880; 84484; 85025; 93005; 96374; 96375; 99283; A4216; J1940; J2405